=== PATIENT | female | born 1955 | race Caucasian/White ===

== ENCOUNTER 2017-07-20 14:45 | Emergency (ER) | payer OTHER, SELFPAY ==
[2017-07-20 14:46] VITALS: BP 100/67; PULSE 97; RESP 16; TEMP 36.9; O2SAT 98; BMI 39.4
[2017-07-20] MEDS: Ondansetron 4 MG/2 ML Vial IV (15:38)
[2017-07-20 15:42] LABS: Absolute Lymphocyte Count 2.34 X10^3/ul (0.83-4.51); Absolute Neutrophil Count 3.7 X10^3/uL (2.0-7.7); Basophil# 0.02 X10^3/uL; Basophil% 0.3 % (0-1); Eosinophil# 0.13 X10^3/uL; Eosinophils% 1.9 % (0-5); Hematocrit 37.6 % (37-47); Hemoglobin 12.4 g/dl (12.0-15.0); Lymphocyte # 2.34 X10^3/ul (4.0); Lymphocyte % 34.8 % (19-41); Mean Corpuscular Hgb 29.1 pg (27.0-32.0); Mean Corpuscular Volume 88.3 fL (81-99); Mean Platelet Vol. 9.2 fl (6.2-12.0); Monocyte# 0.53 X10^3/uL; Monocyte% 7.9 % (0-10); Neutrophil # 3.68 X10^3/uL (2.7-7.7); Neutrophil % 54.8 % (47-70); Platelet Count 313 K/mm3 (150-450); RBC Distribution Width CV 13.2 % (11.6-14.6); RBC Distribution Width SD 41.6 fl (35.1-43.9); Red Blood Count 4.26 M/mm3 (4.2-5.4); White Blood Count 6.7 K/mm3 (4.4-11.0)
[2017-07-20 15:44] VITALS: BP 116/61; PULSE 91; RESP 22; O2SAT 96
[2017-07-20 15:44] LABS: POSITIVE COUNT NO; POSITIVE DIFFERENTIAL NO; POSITIVE MORPHOLOGY NO
[2017-07-20 15:54] LABS: Anion Gap 9 (5-15); BUN 28 mg/dL (7-18); BUN/Creat Ratio 19.3 RATIO (10-20); Calcium,Total 8.9 mg/dL (8.5-10.1); Chloride 103 mmol/L (98-107); Creatinine, Serum 1.45 mg/dL (0.55-1.02); EST Glomerular Filtration Rate 39 mL/min (>60); Est Glom Filt Rate - Afr Amer 47 mL/min (>60); Estimated Creatinine Clearance 35.27 ml/min; Glucose 144 mg/dL (74-106); Potassium 3.9 mmol/L (3.5-5.1); Sodium Level 140 mmol/L (136-145)
--- NOTE | 2017-07-20 16:01 | ED.DCSUM_ITS ---
- ER Visit Summary Date of Service: 07/20/17 Chief Complaint: Back pain and headache History of Present Illness: The patient is a 62 F who goes the [facility]. She reports that she has back pain that began 2 days ago. States that it is diffuse over her trapezius muscle and radiates down both sides of her back down to her buttocks. This is not in the midline. She denies any trauma. No fall, MVA, or change in activity. She describes it as an aching pain that is 10 out of 10 at worst and 7 out of 10 currently. Is worsened by raising her arms. It is relieved by not moving my arms. She has not taken anything for pain. Patient reports that she has a headache that began today. It is gradually gotten worse. It is a sharp pain that is frontal in location. Is 5 out of 10 severity. She reports that she has had similar headaches previously. States that it is slightly worse with light and decreased by a dark room. Physical Examination: Vitals: Stable. Afebrile. General: Well-nourished and well-developed. Head: Normocephalic atraumatic. Neck: Supple, no lymphadenopathy. No JVD. Nontender. Cardiovascular: Regular rate and rhythm. No murmurs. Respiratory: No respiratory distress. Clear to auscultation bilaterally. Abdominal: Soft, nontender, nondistended, normal bowel sounds. No guarding, rebound, or peritoneal signs. Back: No vertebral tenderness to palpation. Moderate tenderness palpation of the trapezius muscles bilaterally. Mild tenderness to palpation diffusely over the paraspinous musculature as well. No point tenderness. Extremities: Nontender, no edema. Skin: Normal color, no rash. Neurologic: Alert and oriented ?3. Cranial nerves II through XII are intact. Normal strength and sensation. Psych: Normal affect. Test Results: CBC is normal. Chem-7 is marked for glucose 144, BUN of 28, and creatinine 1.45. Her creatinine in 2017 ranged from 1.17-1.25. Urinalysis shows 5-10 white blood cells and no bacteria. Emergency Department Course and Treatment: She was given a dose of morphine and Zofran IV. She was given Tylenol p.o. She feels much improved. Treatment Plan: Clinically I do not think this is from a urinary tract infection. She will be treated as muscular back pain. Instructed to follow-up with her primary care physician in 3-5 days if not improving. Return to the emergency department for any worsening symptoms. Disposition: To home in improved and stable condition. Impression: 1. Muscular back pain. 2. Acute on chronic renal insufficiency. This note was generated with [employer] dictation software. It may contain incorrect words, spelling, and punctuation that were not noted in review of the chart prior to signing ED Disposition - Plan for ED Patient: Disposition: Home or Assisted Living Chief Complaint: Weakness Instructions: ED Spasm Back No Trauma Prescriptions: Hydrocodone Bitart/Apap 5-325 [Comins 5/325] 1 - 2 tablet PO Q4H PRN PRN 3 Days # 12 tablet PRN Reason: Pain Docusate Sodium [Colace] 100 mg PO DAILY #20 capsule Referrals: Renée Parada, USED [facility] RENOVATOR-C [Primary Care Provider] - 3-5 Days if not improving
[2017-07-20] MEDS: Acetaminophen 500 MG Tablet 1000 MG PO (16:11)
[2017-07-20 17:14] VITALS: BP 137/53; PULSE 78; O2SAT 94
[2017-07-20 17:21] LABS: Bacteria 0 SEEN /hpf (None Seen); Red Blood Cells-Urine 0 SEEN /hpf (0-5)
[2017-07-20 17:36] LABS: Color, Urine Yellow (Yellow); Glucose, Dipstick Normal (Normal); Ketone-Dipstick Negative (Negative); Leukocyte Esterase-Dipstick 100 /ul (Negative); Nitrite-Dipstick Negative (Negative); Occult Blood-Urine Negative /ul (Negative); Protein-Dipstick Negative (Negative); Urine Clarity Cloudy (Clear); Urine Urobilinogen Normal (Normal)
[2017-07-20 17:37] LABS: Urine Bilirubin Dipstick 1 mg/dL (Negative)
[2017-07-20 17:46] LABS: Hyaline Cast 10-25 SEEN /lpf (0-5)
[2017-07-20 17:47] LABS: Squamous Epithelial Cells - UA 0-5 SEEN /hpf (5-10); White Blood Cells 5-10 SEEN /hpf (0-5)
[2017-07-20 17:48] LABS: Transitional Epithelial - Ur 0-5 SEEN /hpf (0-5)
[2017-07-20 17:50] LABS: Mucous, Urine RARE /hpf (<or=2+)
== END 2017-07-20 18:52 | disposition home or self-care (01) ==
PROVIDERS: Emergency Provider Emergency Medicine; Family Provider Nurse Practitioner Family; PCP Nurse Practitioner Family
DX: M54.9 Dorsalgia, unspecified (principal); I12.9 Hypertensive chronic kidney disease with stage 1 through stage 4 chronic kidney disease, or unspecified chronic kidney disease; E11.22 Type 2 diabetes mellitus with diabetic chronic kidney disease; N18.9 Chronic kidney disease, unspecified; N17.9 Acute kidney failure, unspecified; E11.618 Type 2 diabetes mellitus with other diabetic arthropathy; I42.9 Cardiomyopathy, unspecified; R51 Headache; K59.00 Constipation, unspecified; G47.33 Obstructive sleep apnea (adult) (pediatric); Z79.82 Long term (current) use of aspirin; Z79.4 Long term (current) use of insulin; Z79.899 Other long term (current) drug therapy; Z95.810 Presence of automatic (implantable) cardiac defibrillator
CPT/HCPCS: 80048; 81001; 85025; 96374; 96375; 99283; A4216; J2405

== ENCOUNTER → 2018-02-18 14:40 | Outpatient (CLI) | payer OTHER, SELFPAY ==
[2018-02-18 16:18] LABS: Absolute Lymphocyte Count 2.31 X10^3/ul (0.83-4.51); Absolute Neutrophil Count 4.9 X10^3/uL (2.0-7.7); Basophil# 0.03 X10^3/uL; Basophil% 0.4 % (0-1); Eosinophils% 2.5 % (0-5); Hematocrit 34.9 % (37-47); Hemoglobin 11.3 g/dl (12.0-15.0); Lymphocyte # 2.31 X10^3/ul (4.0); Mean Corp Hgb Conc 32.4 g/gl (32-36); Mean Corpuscular Volume 89.7 fL (81-99); Mean Platelet Vol. 9.5 fl (6.2-12.0); Monocyte# 0.52 X10^3/uL; Monocyte% 6.5 % (0-10); Neutrophil # 4.89 X10^3/uL (2.7-7.7); Neutrophil % 61.3 % (47-70); POSITIVE COUNT NO; POSITIVE DIFFERENTIAL NO; POSITIVE MORPHOLOGY NO; Platelet Count 333 K/mm3 (150-450); RBC Distribution Width CV 13.2 % (11.6-14.6); RBC Distribution Width SD 42.5 fl (35.1-43.9); Red Blood Count 3.89 M/mm3 (4.2-5.4)
[2018-02-18 17:07] LABS: Anion Gap 9 (5-15); BUN 19 mg/dL (7-18); BUN/Creat Ratio 20.5 RATIO (10-20); Calcium,Total 8.2 mg/dL (8.5-10.1); Chloride 107 mmol/L (98-107); Creatinine, Serum 0.93 mg/dL (0.55-1.02); EST Glomerular Filtration Rate 65 mL/min (>60); Est Glom Filt Rate - Afr Amer 78 mL/min (>60); Glucose 215 mg/dL (74-106); Magnesium 2.3 mg/dL (1.6-2.6); Potassium 4.2 mmol/L (3.5-5.1); Sodium Level 140 mmol/L (136-145); T4 Total, Thyroxin 8.9 ug/dL (4.8-13.9); Thyroid Stim Hormone (TSH) 1.26 uIU/mL (0.358-3.74)
== END ==
PROVIDERS: Family Provider Nurse Practitioner Family; PCP Nurse Practitioner Family; Visit Provider Physician Assistant Medical
DX: I25.10 Atherosclerotic heart disease of native coronary artery without angina pectoris (principal); I42.0 Dilated cardiomyopathy; I50.21 Acute systolic (congestive) heart failure
CPT/HCPCS: 80048; 83735; 83880; 84436; 84443; 85025

== ENCOUNTER → 2018-02-21 06:49 | Outpatient (CLI) | payer OTHER, SELFPAY ==
--- NOTE | 2018-02-21 14:56 | STRESSREP ---
Stress Test Report Pharmacologic myocardial perfusion stress test. 62 year old lady with a history of chest pain. Stress protocol: Resting EKG demonstrates normal sinus rhythm with a rate of 67 bpm and ventricular paced rhythm. Resting blood pressure 730/80 mmHg. 0.4 mg regadenoson was infused per usual protocol followed by Intravenous and flush injection continuous EKG monitoring was performed. Patient maintained sinus rhythm throughout the recording. The maximum heart rate attained was noted to be 96 bpm which was 61% maximum predicted heart rate the maximum workload attained was 1 metabolic equivalent. At rest there were no ST or T-wave changes noted suggest ischemia peak infusion no ST or T-wave changes were noted suggest ischemia. No clinical angina was noted. Blood pressures 130/80 final blood pressures 130/68 mmHg. Myocardial perfusion protocol. 14.3 mCi of technetium 99m sestamibi was injected at rest. 0.4 mg of regadenoson was infused per usual protocol peak infusion 44.6 mCi of technetium 99m sestamibi was injected stress and rest images were reconstructed and compared in the short axis vertical and horizontal long axis. Gated images were also obtained pre- Perfusion SPECT analysis: Review of the stress images demonstrate normal uptake of tracer noted in all areas of the myocardium. The resting images similarly demonstrate normal uptake of tracer noted in all areas of myocardium. No previous infarct is noted. Gated SPECT analysis: The gated ejection fraction is noted to be 57%. Conclusion: Normal pharmacologic myocardial perfusion stress test. Preserved ejection fraction.
== END ==
PROVIDERS: Family Provider Nurse Practitioner Family; PCP Nurse Practitioner Family; Visit Provider Internal Medicine Cardiovascular Disease
DX: I25.10 Atherosclerotic heart disease of native coronary artery without angina pectoris (principal); I34.0 Nonrheumatic mitral (valve) insufficiency; I42.0 Dilated cardiomyopathy; I50.22 Chronic systolic (congestive) heart failure; R07.9 Chest pain, unspecified; Z95.810 Presence of automatic (implantable) cardiac defibrillator
CPT/HCPCS: 78452; 93017; A9500; A4216; J2785

== ENCOUNTER 2018-03-22 08:57 | Day surgery (SDC) | payer OTHER, SELFPAY ==
--- NOTE | 2018-03-22 | COLBX_PTH ---
PATIENT: THIAGO PIERRE LOC: EN U#:[id number] AGE/SX: 62/F ROOM: RE03/22/[address]: Dr. Nathan Bhatti MD : 1955 BED: DIS: 03/22/2018 SPEC #: [id number] RECD: 03/22/18 12:14 STATUS: DOMITILA DIAZ #: [id number] RAMON: 03/22/18 00:[address]: Nathan Bhatti DEPT: SURGICAL PATHOLOGY RECD BY: Daniel Deal ENTERED: 03/22/18 12:14 SP TYPE: COLON BX OTHR DR: Renée Parada, BEHAVIORAL SCIENTIST-C [facility] Tissues: Rectum, NOS Procedures: Surgery Specimen Level IV HEADER OPERATION: Colonoscopy PRE-OP DIAGNOSIS: Constipation TISSUE SUBMITTED: Rectal polyp MICROSCOPIC DIAGNOSIS Rectal polyp, biopsy: Fragments of squamous epithelium with hyperkeratosis. Fragments of fecal material. See comment. SJ:suhas 03/25/18 COMMENT Colonic mucosal tissue is not identified in the submitted specimen. Correlation with clinical, endoscopic findings and appropriate follow up are necessary. MICROSCOPIC DESCRIPTION Slides are reviewed. GROSS DESCRIPTION Received in fixative is one container labeled with the patient's name and designated rectal polyp. The specimen consists of multiple irregular fragments of chappell soft tissue mixed with fecal material that in aggregate measure 1 x 0.5 x 0.2 cm. The specimen is totally submitted in one cassette. / SJ:suhas 03/22/18 TC:5 CPT: 58278
[2018-03-22 09:26] VITALS: BP 132/77; PULSE 73; RESP 14; TEMP 36.9; O2SAT 100; BMI 38.6
[2018-03-22 09:51] LABS: Bedside Glucose 169 mg/dL (70-110)
--- NOTE | 2018-03-22 11:35 | OP.ENDO_ITS ---
Patient Name: Sandra Cruz Procedure Date: 03/22/2018 10:45 AM Date of : 1955 Age: 62 Procedure: Colonoscopy Indications: Screening for colorectal malignant neoplasm Providers: Nathan Bhatti MD Referring MD: Nathan Bhatti MD Medicines: Monitored Anesthesia Care Patient Profile: This is a 62 year old female. Last Colonoscopy: more than 10 years ago. Complications: No immediate complications. Procedure: Pre-Anesthesia Assessment: - Prior to the procedure, a History and Physical was performed, and patient medications and allergies were reviewed. The patient's tolerance of previous anesthesia was also reviewed. The risks and benefits of the procedure and the sedation options and risks were discussed with the patient. All questions were answered, and informed consent was obtained. Prior Anticoagulants: The patient has taken aspirin, last dose was 5 days prior to procedure. After reviewing the risks and benefits, the patient was deemed in satisfactory condition to undergo the procedure. After I obtained informed consent, the scope was passed under direct vision. Throughout the procedure, the patient's blood pressure, pulse, and oxygen saturations were monitored continuously. The colonoscope was introduced through the anus and advanced to the cecum, identified by appendiceal orifice and ileocecal valve. The colonoscopy was performed without difficulty. The patient tolerated the procedure well. The quality of the bowel preparation was adequate. Scope In: 11:08:07 AM Scope Withdrawal Time 0 hours 14 minutes 40 seconds Scope Out: 11:30:18 AM Total Procedure Duration Time 0 hours 22 minutes 11 seconds Findings: A polyp was found in the rectum. The polyp was pedunculated. The polyp was removed with a hot snare. Resection and retrieval were complete. The exam was otherwise without abnormality on direct and retroflexion views. Impression: - One polyp in the rectum, removed with a hot snare. Resected and retrieved. - The examination was otherwise normal on direct and retroflexion views. Recommendation: - Discharge patient to home. - Resume previous diet. - Continue present medications. - Resume aspirin at prior dose tomorrow. - Await pathology results. - Repeat colonoscopy date to be determined after pending pathology results are reviewed for surveillance based on pathology results. Procedure Code(s): --- Professional --- 06290, Colonoscopy, flexible; with removal of tumor(s), polyp(s), or other lesion(s) by snare technique Diagnosis Code(s): --- Professional --- Z12.11, Encounter for screening for malignant neoplasm of colon K62.1, Rectal polyp CPT copyright 2017 [employer]. All rights reserved. The codes documented in this report are preliminary and upon tissue specialist review may be revised to meet current compliance requirements. Nathan Bhatti MD 03/22/2018 11:35:46 AM This report has been signed electronically. Number of Addenda: 0 Note Initiated On: 03/22/2018 10:45 AM
[2018-03-22 11:36] VITALS: BP 132/77; BP 98/85; PULSE 66; RESP 16; TEMP 36.7; O2SAT 99
[2018-03-22 11:41] VITALS: BP 132/77; BP 139/72; PULSE 64; RESP 16; O2SAT 97
[2018-03-22 11:46] VITALS: BP 132/77; BP 151/78; PULSE 66; RESP 16; O2SAT 98
[2018-03-22 11:51] VITALS: BP 132/77; BP 146/81; PULSE 67; RESP 16; TEMP 36.7; O2SAT 97
[2018-03-22 12:00] VITALS: BP 132/77
== END 2018-03-22 12:15 | disposition home or self-care (01) ==
LOC: EN 08:58 → AC 08:59
PROVIDERS: Referring Provider Surgery; Visit Provider Surgery
PROC: 0DJD8ZZ Inspection of Lower Intestinal Tract, Via Natural or Artificial Opening Endoscopic (ICD-10-PCS; CPT 45378; principal; 2018-03-22 09:55)
DX: Z12.11 Encounter for screening for malignant neoplasm of colon (principal); K62.1 Rectal polyp; K21.9 Gastro-esophageal reflux disease without esophagitis; K59.00 Constipation, unspecified; I11.0 Hypertensive heart disease with heart failure; I50.22 Chronic systolic (congestive) heart failure; I25.119 Atherosclerotic heart disease of native coronary artery with unspecified angina pectoris; I42.0 Dilated cardiomyopathy; E11.9 Type 2 diabetes mellitus without complications; E78.5 Hyperlipidemia, unspecified; G47.33 Obstructive sleep apnea (adult) (pediatric); F32.9 Major depressive disorder, single episode, unspecified; F41.9 Anxiety disorder, unspecified; E66.9 Obesity, unspecified; Z68.38 Body mass index [BMI] 38.0-38.9, adult; R94.31 Abnormal electrocardiogram [ECG] [EKG]; Z78.0 Asymptomatic menopausal state; Z79.82 Long term (current) use of aspirin; Z79.4 Long term (current) use of insulin; Z79.899 Other long term (current) drug therapy; I25.2 Old myocardial infarction; Z85.820 Personal history of malignant melanoma of skin; Z92.3 Personal history of irradiation; Z87.891 Personal history of nicotine dependence; Z95.810 Presence of automatic (implantable) cardiac defibrillator
CPT/HCPCS: 45385; 82962; 88305; J7120; J2405

== ENCOUNTER → 2018-07-19 12:20 | Outpatient (CLI) | payer MEDICARE, OTHER, SELFPAY ==
[2018-07-19 12:20] VITALS: BMI 39.4
--- NOTE | 2018-07-19 12:34 | RAD_ITS ---
HISTORY: RIGHT HIP PAIN COMPARISON: None FINDINGS: XR Spine Lumbar 3 views The lumbar vertebra show normal height and alignment. No fracture or suspicious bony lesion. Disc space heights appear preserved. The posterior elements appear intact. No spondylolisthesis. L5-S1 facet joint arthritis on the right. The SI joints are grossly preserved. Atherosclerotic abdominal aorta. RAD/Lumbar Spine 2 or 3 Views IMPRESSION: 1. No fracture or acute disease. 2. L5-S1 facet joint arthritis. 3. Atherosclerotic calcifications. at 0417 Reported and signed by: Shaka Alvarez MD Electronically Signed: Shaka Alvarez, at 4:16 EST Tel , Service support ,
--- NOTE | 2018-07-19 12:50 | RAD_ITS ---
STUDY: X-RAY - RIGHT HIP REASON FOR EXAM: Female, 63 years old. Right hip pain TECHNIQUE: 2 views of the hip. AP pelvis COMPARISON: None. FINDINGS: Normal femoral head, neck, intertrochanteric region and visualized proximal femur. Normal acetabulum. Normal hip joint. Pelvic ring is intact. Sacroiliac joints and pubic symphysis are normal. There are vascular phleboliths of the pelvis. RAD/HIP, UNI W/ Pelvis 2-3 Views IMPRESSION: Normal x-ray examination of the pelvis and right hip hip. Electronically Signed: Dre Rubin MD at 17:27 EST , Service support ,
== END ==
DX: M25.551 Pain in right hip (principal)
CPT/HCPCS: 72100; 73502

== ENCOUNTER → 2018-11-19 12:57 | Outpatient (CLI) | payer MEDICARE, OTHER, SELFPAY ==
[2018-11-01 09:34] VITALS: BMI 40.4
--- NOTE | 2018-11-19 13:00 | CDU_ITS ---
Reason For Study: carotid artery disease Rt. Velocities/BP Lt. Velocities/BP Prox CCA 72.1/12.1 cm/sec. Prox CCA 60.8/14.6 cm/sec. Mid CCA 53.9/14.7 cm/sec. Mid CCA 50.9/12.4 cm/sec. Dist CCA 43.4/12.1 cm/sec. Dist CCA 42.1/11.3 cm/sec. Prox ICA 42.1/12.1 cm/sec. Prox ICA 38.8/14.6 cm/sec. Mid ICA 37.7/10.2 cm/sec. Mid ICA 54.2/17.9 cm/sec. Dist ICA 47.6/19.0 cm/sec. Dist ICA 67.4/27.8 cm/sec. Rt. ICA/CCA = .7. Lt. ICA/CCA = 1.1. Prox ECA 78.6/8.2 cm/sec. Prox ECA 69.5/5.8 cm/sec. Rt. Vert. 41.0/11.3 cm/sec. Lt. Vert. 54.2/17.9 cm/sec. Right Extracranial There is heterogeneous, irregular atherosclerotic plaque noted in the right common carotid artery. There is intimal thickening but no significant atherosclerotic plaque noted in the right internal carotid artery. There is heterogeneous, irregular atherosclerotic plaque noted in the right external carotid artery. Antegrade flow is noted in the right vertebral artery. There is heterogeneous, irregular atherosclerotic plaque noted in the right bulb. Left Extracranial There is heterogeneous, smooth atherosclerotic plaque noted in the left common carotid artery. There is heterogeneous, irregular atherosclerotic plaque noted in the left internal carotid artery. There is heterogeneous, irregular atherosclerotic plaque noted in the left external carotid artery. Antegrade flow is noted in the left vertebral artery. Procedure Carotid Duplex 45043. The exam was diagnostic. Exam performed in department. Interpretation Summary No significant atherosclerotic plaque or stenosis noted in the right internal carotid artery. Mild (<50%) stenosis left extracranial internal carotid. Flow within the vertebral arteries is antegrade bilaterally. Heterogeneous, irregular atherosclerotic plaque is noted in the right carotid bulb, which does not appear to be hemodynamically significant. Ordering Physician: Stewart Boggs Performed By: Mateo Young RVT
--- NOTE | 2018-11-19 13:00 | ECHOD_ITS ---
Version 2 Left Ventricle Normal LV size. Mild segmental systolic dysfunction (see wall motion). The estimated ejection fraction is 45 %. There is evidence of diastolic dysfunction. Infero-Basal: Hypokinetic. Basal inferoseptal: Hypokinetic. Mid-Lateral : Hypokinetic. Mid-Posterior: Hypokinetic. Mid-Inferior: Akinetic. Mid-inferoseptal : Hypokinetic. Mid-anteroseptal : Hypokinetic. Anterior Ferguson : Hypokinetic. Inferior Ferguson : Akinetic. Lateral Ferguson : Hypokinetic. Septal Ferguson : Hypokinetic. Right Ventricle Normal RV size. ICD or pacer leads identified within the right ventricle. Normal systolic function. Atria The left atrium is mildly enlarged. Normal right atrium. ICD or pacer leads identified within the right atrium. No doppler evidence for ASD. Mitral Valve There is mild mitral annular calcification. Mild diffuse mitral valve thickening. Mild (1+) eccentric mitral valve insufficiency. Tricuspid Valve Normal tricuspid valve. Trivial tricuspid valve insufficiency. Right ventricular systolic pressure estimated to be 25 mmHg. Aortic Valve Trisinus/trileaflet aortic valve. Normal aortic valve. Pulmonic Valve The pulmonic valve is not well visualized. Trivial pulmonic valve insufficiency. Great Vessels Normal sized aortic root. Pericardium/Pleural No pericardial effusion. MMode/2D Measurements & Calculations LVIDd: 5.3 cm IVSd: 1.0 cm Ao root diam: 3.5 cm LVIDs: 3.8 cm LVPWd: 1.0 cm RVDd: 2.9 cm FS: 28.7 % LAV(MOD-bp): 56.2 ml LA A4 area: 17.6 cm2 LA dimension(2D): 4.1 cm LAV(MOD-bp) Indexed: 26.3 ml/m2 LAV(MOD-sp2): 59.6 ml LAV(MOD-sp4): 51.3 ml RA A4 area: 11.8 cm2 Time Measurements MV dec time: 0.37 sec Doppler Measurements & Calculations MV E max omega: 65.7 cm/sec Lat Peak E' Omega: 3.9 cm/sec Med Peak E' Omega: 3.7 cm/sec MV A max omega: 114.4 cm/sec E/E' lat: 16.7 E/E' med: 17.6 MV E/A: 0.57 Ao V2 max: 156.0 cm/sec LV V1 max: 82.9 cm/sec TR max omega: 234.9 cm/sec Ao max P.7 mmHg LV V1 max P.8 mmHg TR max P.1 mmHg Interpretation Summary Mild segmental systolic dysfunction (see wall motion). The estimated ejection fraction is 45 %. The left atrium is mildly enlarged. There is mild mitral annular calcification. Mild diffuse mitral valve thickening. Mild (1+) eccentric mitral valve insufficiency. Trivial tricuspid valve insufficiency. Trivial pulmonic valve insufficiency. Right ventricular systolic pressure estimated to be 25 mmHg. There is evidence of diastolic dysfunction. ICD or pacer leads identified within the right atrium ICD or pacer leads identified within the right ventricle. Ordering Physician: Ambrose^Stewart^^^ Referring Physician: Stewart Boggs Performed By: ADM
== END ==
PROVIDERS: Referring Provider Internal Medicine Cardiovascular Disease; Visit Provider Internal Medicine Cardiovascular Disease
DX: R42 Dizziness and giddiness (principal); I77.9 Disorder of arteries and arterioles, unspecified; I25.10 Atherosclerotic heart disease of native coronary artery without angina pectoris
CPT/HCPCS: 93306; 93880

== ENCOUNTER → 2019-01-20 | Outpatient (CLI) | payer MEDICARE, OTHER, SELFPAY ==
[2018-11-01 09:34] VITALS: BMI 40.4
[2019-01-22 09:15] LABS: M R Staph aureus DNA By PCR Negative (Negative); Probe Check PASS; Specimen Processing Control PASS; Staph aureus DNA By PCR NEGATIVE (Negative)
== END | disposition home or self-care (01) ==
LOC: LABSPEC 01-21 15:24
PROVIDERS: Referring Provider Podiatrist; Visit Provider Podiatrist
DX: L60.0 Ingrowing nail (principal)
CPT/HCPCS: 87070; 87075; 87077; 87186; 87205; 87640

== ENCOUNTER → 2019-02-18 08:53 | Outpatient (CLI) | payer MEDICARE, OTHER, SELFPAY ==
[2018-11-01 09:34] VITALS: BMI 40.4
--- NOTE | 2019-02-18 09:20 | RAD_ITS ---
STUDY: X-RAY - ESOPHAGUS (BARIUM SWALLOW) WITH FLUOROSCOPY REASON FOR EXAM: Female, 63 years old. Dysphagia for solids and liquids. TECHNIQUE: 20 view(s) of the esophagus were obtained following swallowing of barium. FLUOROSCOPY TIME (if supplied): (0:36) minutes/seconds COMPARISON: None. FINDINGS: There is no demonstrated esophageal foreign body. There is no demonstrated stricture or mucosal abnormality. Normal gastroesophageal junction, without a demonstrated hiatal hernia. Tertiary contractions of the mid and distal esophagus. The patient ingested a 12 mm tablet of barium without any difficulty. There is atherosclerotic calcification of the aortic arch with tortuosity of the descending aorta. Normal visualized pulmonary parenchyma. There are diffuse degenerative changes of the visualized thoracic spine. RAD/Esophagus Only IMPRESSION: Tertiary contractions of the mid and distal esophagus. Electronically Signed: Macho Majano, at 13:02 EDT , Service support ,
== END ==
PROVIDERS: Referring Provider Nurse Practitioner Family; Visit Provider Nurse Practitioner Family
DX: R13.10 Dysphagia, unspecified (principal)
CPT/HCPCS: 74220

== ENCOUNTER → 2019-03-25 11:56 | Outpatient (CLI) | payer MEDICARE, OTHER, SELFPAY ==
[2018-11-01 09:34] VITALS: BMI 40.4
--- NOTE | 2019-03-25 12:00 | BI_ITS ---
MAMMOGRAPHY - BILATERAL SCREENING REASON FOR EXAM: Female, 63 years old. Routine annual screening examination. PERTINENT HISTORY: Mother with breast cancer. Prior bilateral breast reduction surgery. TECHNIQUE: Digital bilateral breast vic (3D mammographic acquisition) in the CC and MLO projections. 2-D mediolateral oblique (MLO) and craniocaudad (CC) views of both breasts were obtained. CAD: Full Field Digital Mammography with Computer Added Detection was performed. COMPARISON: Comparison is made with prior study dated February 20, 2013. FINDINGS: Breast Composition: The breasts are almost entirely fatty. There are no dominant masses or suspicious calcifications. A pacemaker battery pack is seen in the left axillary region. No other significant abnormalities are identified. There has been no significant change since the prior study. BI/SCREEN MAMM (CAD) W/VIC BILAT IMPRESSION: Stable bilateral screening mammogram. Yearly follow-up mammogram recommended. (A) ASSESSMENT CATEGORY: BIRADS Category 1: Negative. A letter regarding these results will be sent to the patient by the facility within 30 days. Approximately 10% of breast cancers are not detected by mammography. A normal mammogram should not delay biopsy of a clinically suspicious abnormality. [id number] Electronically Signed: Macho Majano, at 14:12 EDT , Service support ,
== END ==
DX: Z12.31 Encounter for screening mammogram for malignant neoplasm of breast (principal)
CPT/HCPCS: 77063; 77067

== ENCOUNTER → 2019-05-06 08:55 | Outpatient (CLI) | payer MEDICARE, OTHER, SELFPAY ==
[2018-11-01 09:34] VITALS: BMI 40.4
--- NOTE | 2019-05-06 09:18 | BD_ITS ---
STUDY: DUAL ENERGY X-RAY ABSORPTIOMETRY / DXA REASON FOR EXAM: Female, 63 years old. Early menopause. No loss of height. TECHNIQUE: Bone Mineral Density (BMD) measurements of lumbar spine and bilateral hips were obtained. COMPARISON: None. FINDINGS: Lumbar Spine (L1-L4): g/cm2 (1.069) / T-score (-0.9) / Z-score (0.7) Findings are suggestive of normal bone density with a low fracture risk. Left Femur Total: g/cm2 (1.257) / T-score (2.0) / Z-score (3.2) Left Femoral Neck: g/cm2 (1.110) / T-score (0.4) / Z-score (2.0) Right Femur Total: g/cm2 (1.237) / T-score (1.8) / Z-score (3.1) Right Femoral Neck: g/cm2 (1.088) / T-score (0.4) / Z-score (1.9) BD/Dexa Bone Density Study IMPRESSION: The patient is considered normal as outlined below according to World Ford Organization (WHO) criteria with a low fracture risk. Reference Information: The T-score is the number of standard deviations above or below the standard which is normal for young adults at their peak bone mineral density. The World Health Organization (WHO) interprets the T-scores as follows: Above -1 Normal bone density Between -1 and -2.5 Osteopenia Equal to / or below -2.5 Osteoporosis As a practical clinical guideline, osteopenia may be graded as follows: Mild -1 through -1.5 Moderate -1.6 through -2.0 Severe -2.1 through -2.4 The Z-score is the number of standard deviations above or below age-matched controls. A Z-score of less than -1.5 would be considered abnormal. References: 1. NIH Osteoporosis and Related Bone Diseases http://www.osteo.org 2. International Society for Clinical Densitometry http://www.iscd.org 3. National Osteoporosis Foundation http://www.nof.org Electronically Signed: Macho Majano, at 8:49 EST , Service support ,
== END ==
DX: Z13.820 Encounter for screening for osteoporosis (principal); Z78.0 Asymptomatic menopausal state
CPT/HCPCS: 77080

== ENCOUNTER → 2019-05-12 20:11 | Outpatient (CLI) | payer MEDICARE, OTHER, SELFPAY ==
[2018-11-01 09:34] VITALS: BMI 40.4
== END ==
DX: G47.33 Obstructive sleep apnea (adult) (pediatric) (principal)
CPT/HCPCS: 95811

== ENCOUNTER 2019-06-05 06:47 | Day surgery (SDC) | payer MEDICARE, OTHER, SELFPAY ==
[2019-05-16 13:23] VITALS: BMI 40.4
[2019-05-30 14:35] VITALS: BMI 40.1
[2019-06-05 07:16] VITALS: BP 187/80; PULSE 60; RESP 16; TEMP 36.4; O2SAT 97
== END 2019-06-05 07:55 | disposition home or self-care (01) ==
LOC: EN 06:47
PROVIDERS: Visit Provider Surgery
PROC: F00ZJWZ Instrumental Swallowing and Oral Function Assessment using Swallowing Equipment (ICD-10-PCS; CPT 43235; principal; 2019-06-05 06:55)
DX: R13.10 Dysphagia, unspecified (principal)
CPT/HCPCS: 91010; 91013

== ENCOUNTER → 2019-06-13 10:34 | Outpatient (CLI) | payer MEDICARE, OTHER, SELFPAY ==
[2019-05-30 14:35] VITALS: BMI 40.1
== END ==
DX: R69 Illness, unspecified (principal)

== ENCOUNTER 2019-06-20 10:39 | Emergency (ER) | payer MEDICARE, OTHER, SELFPAY ==
[2019-06-12 09:21] VITALS: BMI 40.4
[2019-06-20 10:40] VITALS: BP 139/95; PULSE 74; RESP 17; TEMP 36.2; O2SAT 99; BMI 38.4
[2019-06-20 10:51] LABS: Bedside Glucose 209 mg/dL (70-110)
--- NOTE | 2019-06-20 11:07 | CT_ITS ---
STUDY: CT ABDOMEN AND PELVIS WITH CONTRAST REASON FOR EXAM: Female, 63 years old. Mid-abdominal pain since yesterday, nausea. Prior KT/BSO, diabetes, melanoma (eye). RADIATION DOSAGE (If Supplied By Facility): CTDIvol = ( 0 ) mGy, DLP = ( 0 ) mGycm TECHNIQUE: Transaxial images were obtained from the dome of the diaphragm to the symphysis pubis without oral contrast. IV 100mL Isovue-300 was administered. Sagittal and coronal images were reconstructed. Individualized dose optimization techniques were used for this CT. COMPARISON: Comparison is made with prior study dated February 20, 2013. FINDINGS: The visualized lung bases are unremarkable. Coronary artery calcification. Dual-chamber pacemaker is in situ. There is decreased attenuation of the liver consistent with steatosis. Normal gallbladder and extrahepatic biliary system. Normal spleen. Normal pancreas. There is a small, circumscribed, smooth, low attenuation left adrenal mass, consistent with an adrenal adenoma. This measures 1.4 cm. Normal right adrenal gland. Stable 5 mm fatty density in the peripheral lateral aspect of the right kidney suggestive of a tiny angiomyolipoma. Normal left kidney. Normal visualized stomach. Normal small intestine. Normal colon. There is non-visualization of the appendix. There is diffuse atherosclerotic calcification of the abdominal aorta, without a demonstrated aneurysm. Normal inferior vena cava. Normal retroperitoneum. Normal urinary bladder. There is absence of the uterus consistent with a prior hysterectomy. Normal abdominal wall. Normal osseous structures. CT/Abdomen/Pelvis W IV Cont ONLY IMPRESSION: Diffuse fatty infiltration of the liver. Stable examination. Electronically Signed: Macho Majano, at 12:32 EST , Service support ,
--- NOTE | 2019-06-20 11:08 | ED.DCSUM_ITS ---
- ER Visit Summary Date of Service: 06/20/19 Chief Complaint: Mid abdominal pain History of Present Illness: The patient is a 63 F history of prior total hysterectomy. Pacemaker defibrillator. Prior MD, insulin-dependent diabetes and hypertension. Patient states since last night she has had mid abdominal pain. With associated nausea vomiting. No diarrhea. No rectal bleeding but dark stools. No fever. No dysuria. He is on no blood thinners. States she is still having bowel movements. Physical Examination: Older female no acute distress vital signs are stable afebrile. H EENT exam unremarkable. Neck nontender no lymphadenopathy. Lungs clear to auscultation bilaterally. Heart regular rhythm no murmur. Abdomen is soft. Nondistended. Normal bowel sounds. Mild periumbilical tenderness. No obvious hernia or mass. No signs of obstruction. She is obese. Positive bowel sounds. No peritoneal signs. Patient moving all 4 extremities. Calves nontender no edema. Neurologically she is awake and alert with no focal motor deficits. Test Results: BC normal white count of 6. Hemoglobin 12. Chemistries normal gap of 8 BUN 70 creatinine 1.2. Liver enzymes normal. Lipase normal. CT abdomen pelvis shows a fatty liver but no acute abnormality. Read by the radiologist and reviewed by me. Emergency Department Course and Treatment: Older female with abdominal pain. Labs to be obtained along with a CAT scan of her abdomen and pelvis with IV contrast. States that she also has a headache and will be given Tylenol p.o. She did not waiting for the abdominal pain or nausea. Treatment Plan: Repeat exam at 1335 patient is doing well. Abdomen is benign. She and I went over all of her test results. She again assures me she is having no urinary symptoms. She will be discharged. Follow-up with her primary care physician. Disposition: Discharge Impression: Acute abdominal pain of uncertain etiology This note was generated with [employer] dictation software. It may contain incorrect words, spelling, and punctuation that were not noted in review of the chart prior to signing ED Disposition - Plan for ED Patient: Referrals: Yary Conn [Primary Care Provider] -
[2019-06-20 11:39] LABS: Absolute Lymphocyte Count 2.22 X10^3/uL (0.83-4.51); Absolute Neutrophil Count 3.2 X10^3/uL (2.0-7.7); Basophil# 0.03 X10^3/uL; Basophil% 0.5 % (0-1); Eosinophil# 0.35 X10^3/uL; Eosinophils% 5.7 % (0-5); Hematocrit 40.5 % (37-47); Hemoglobin 12.7 g/dL (12.0-15.0); Lymphocyte # 2.22 X10^3/ul (4.0); Lymphocyte % 35.9 % (19-41); Mean Corp Hgb Conc 31.4 g/dL (32-36); Mean Corpuscular Hgb 27.8 pg (27.0-32.0); Mean Corpuscular Volume 88.6 fL (81-99); Mean Platelet Vol. 9.2 fl (6.2-12.0); Monocyte# 0.34 X10^3/uL; Monocyte% 5.5 % (0-10); NRBC Flagged by Analyzer 0 % (0-5); Neutrophil # 3.24 X10^3/uL (2.7-7.7); Neutrophil % 52.2 % (47-70); Platelet Count 302 K/mm3 (150-450); RBC Distribution Width CV 13.1 % (11.6-14.6); RBC Distribution Width SD 42.1 fl (35.1-43.9); Red Blood Count 4.57 M/mm3 (4.2-5.4); White Blood Count 6.2 K/mm3 (4.4-11.0)
[2019-06-20] MEDS: Acetaminophen 500 MG Tablet 1000 MG PO (11:44)
[2019-06-20] MEDS: 0.9% Normal Saline 1,000 ML 250 ML IV (11:44)
[2019-06-20 11:48] LABS: AST(SGOT) 11 U/L (15-37); Alanine Aminotransfer ALT/SGPT 18 U/L (13-56); Albumin, Serum 3.6 g/dL (3.2-5.0); Alkaline Phosphatase 86 U/L (45-117); Anion Gap 8 (5-15); BUN 17 mg/dL (7-18); BUN/Creat Ratio 13.7 RATIO (10-20); Bilirubin, Direct 0.16 mg/dL (0.00-0.30); Calcium,Total 10.3 mg/dL (8.5-10.1); Chloride 101 mmol/L (98-107); Creatinine, Serum 1.24 mg/dL (0.55-1.02); EST Glomerular Filtration Rate 46 mL/min (>60); Est Glom Filt Rate - Afr Amer 56 mL/min (>60); Estimated Creatinine Clearance 42.34 ml/min; Globulin 3.7 g/dL (2.2-4.2); Glucose 203 mg/dL (74-106); Lipase 172 U/L (73-393); Potassium 4.2 mmol/L (3.5-5.1); Protein, Total 7.3 g/dL (6.4-8.2); Sodium Level 136 mmol/L (136-145)
--- NOTE | 2019-06-20 13:41 | DCINST.ED_ITS ---
ED Disposition - Plan for ED Patient: Disposition: Home or Assisted Living Instructions: ABDOMINAL PAIN, Unknown Cause, (Female) Referrals: Janna Talavera,Yary Chambers [Primary Care Provider] - 3-5 Days Additional Instructions: Tylenol for pain. Follow-up with your doctor's office next week to ensure you are improving. Return to ER if you are feeling worse. Your labs and CAT scan today were basically unremarkable we did not have a speci fic cause for your abdominal pain.
[2019-06-20 13:59] VITALS: BP 144/72; PULSE 69; RESP 16; O2SAT 99
== END 2019-06-20 14:01 | disposition home or self-care (01) ==
PROVIDERS: Emergency Provider Emergency Medicine
DX: R10.33 Periumbilical pain (principal); I25.10 Atherosclerotic heart disease of native coronary artery without angina pectoris; I25.2 Old myocardial infarction; I10 Essential (primary) hypertension; E11.9 Type 2 diabetes mellitus without complications; Z79.4 Long term (current) use of insulin; Z79.84 Long term (current) use of oral hypoglycemic drugs; Z79.82 Long term (current) use of aspirin
CPT/HCPCS: 74177; 80048; 80076; 82962; 83690; 85025; 96360; 96361; 99283; J7030; Q9967; A4216

== ENCOUNTER 2019-10-26 18:25 | Inpatient (IN) | payer MEDICARE, OTHER, SELFPAY ==
[2019-10-26 18:26] VITALS: BP 119/72; PULSE 90; RESP 16; TEMP 36.8; O2SAT 96; BMI 39.2
--- NOTE | 2019-10-26 18:51 | CT_ITS ---
STUDY: CT ABDOMEN AND PELVIS WITHOUT CONTRAST REASON FOR EXAM: Female, 64 years old. DIFFUSE abdominal PAIN/DARK STOOL/DIARRHEA X one week. RADIATION DOSAGE (If Supplied By Facility): CTDIvol = ( 22.81 ) mGy, DLP = ( 1324.73 ) mGycm TECHNIQUE: Transaxial images were obtained from the dome of the diaphragm to the symphysis pubis without oral contrast, and without intravenous contrast. Sagittal and coronal images were reconstructed. Individualized dose optimization techniques were used for this CT. COMPARISON: 06/20/2019. FINDINGS: Suboptimal positioning. The dome of the liver is not entirely included on the [id number]. Grossly normal visualized liver. Normal gallbladder and extrahepatic biliary system. Normal spleen. Normal pancreas. Normal bilateral adrenal glands. Normal right kidney. Normal left kidney. Evaluation of the GI tract is limited by absence of oral contrast. Cannot exclude stomach wall thickening. No dilated loops of bowel or evidence for obstruction. Cannot exclude segmental thickening of the loz[place] of the small or large bowel. Cannot exclude enteritis or colitis. Diffuse fluid density is seen throughout GI tract as far as the sigmoid, a finding which suggests nonspecific colitis/diarrheal disorders. Appendix within normal limits. There is diffuse atherosclerotic calcification of the abdominal aorta, without a demonstrated aneurysm. Normal inferior vena cava. Normal retroperitoneum. Normal urinary bladder. There is absence of the uterus consistent with a prior hysterectomy. Normal abdominal wall. Normal osseous structures. CT/Abdomen/Pelvis without Cont IMPRESSION: Diffuse fluid density is seen throughout GI tract as far as the sigmoid, a finding which suggests nonspecific colitis/diarrheal disorders. Otherwise no definite acute or significant abnormality seen. Electronically Signed: Ross Martinez MD at 19:55 EDT , Service support ,
--- NOTE | 2019-10-26 18:53 | ED.DCSUM_ITS ---
History of Present Illness Chief Complaint: Diarrhea Informant: Patient - Abdominal Pain/Flank Pain Onset: Days - 1-2 Timing: Intermittent Quality: Aching Location: Diffuse Current Severity: Moderate Maximum Severity: Moderate Worsened by: Food Relieved by: Nothing - Nausea/Vomiting/Emesis GI Symptom: Nausea, Vomiting Onset: Weeks - 1 Quality: Nonbilious. Negative for: Blood streaks, Coffee ground, Hematemesis - Diarrhea/Melena/Hematochezia GI Symptom: Melena. Negative for: Hematochezia Onset: Yesterday Severity: Moderate Associated Symptoms: Negative for: Dysuria, Frequency, Hematuria, Urgency Narrative: Patient has been having diffuse abdominal pain and nausea/vomiting for the past week, much worse after eating, and very soon afterwards. She has had lightheadedness, weakness/malaise, as well as several near syncope episodes. She has recently developed melena. She denies a history of an ulcer, but she takes aspirin, no anticoagulants. She has a history of heart disease. She denies any chest pain or shortness of breath. - Past Medical History (1) Atherosclerotic heart disease of [place] coronary artery without angina pectoris Status: Chronic Comment: 05/26/2015 @ [facility] per Dr. Boggs: mild nonobstructive CAD (2) Cardiac defibrillator in situ Status: Chronic Comment: Dr. Garcia's office interrogates @ [facility]: Implanted 03/16/2016 mala Garcia, [facility] (3) Chronic systolic (congestive) heart failure Status: Chronic (4) Diabetes mellitus, type II Status: Chronic (5) Dilated cardiomyopathy Status: Chronic Comment: Ejection fraction 20% per echo 01/13/2016 @ [facility] (6) Essential hypertension Status: Chronic (7) Nonrheumatic mitral (valve) insufficiency Status: Chronic Comment: moderate (2+) per echo 01/13/2016 (8) NICOLLE (obstructive sleep apnea) Status: Chronic (9) Pure hypercholesterolemia Status: Chronic Past Medical History - Allergies and Home Meds Allergies/Adverse Reactions: Allergies red dye Allergy (Verified 10/26/19 18:26) Hives Lzusrng-Fkn-Fuh Reductase Inhibitor Adverse Reaction (Severe, Verified 10/26/19 18:26) Myalgias Primary Care Physician: Yary Conn [NON-STAFF] - Surgical History: - - Hysterectomy, breast reduction. Lives: Spouse/ Significant Other Smoking Status: Former smoker Alcohol: None - Family History Maternal Family History: Family History (Last Reviewed 05/30/19 @ 14:38 by Kaye Pierson) Father Lung cancer Mother Breast cancer Brother Cancer Family History: Reports: Diabetes, Heart Disease, Hypertension Paternal Family History: Family History (Last Reviewed 05/30/19 @ 14:38 by Kaye Pierson) Father Lung cancer Mother Breast cancer Brother Cancer Family History: Reports: Diabetes, Heart Disease, Hypertension Review of Systems General: Reports: Malaise. Denies: Chills, Fever, Sweats Eyes: Denies: Visual changes - bilaterally, Diplopia ENT: Denies: Rhinorrhea, Sore throat Cardiovascular: Denies: Chest pain, Palpitations Respiratory: Denies: Dyspnea, Cough, Dyspnea on exertion Gastrointestinal: Reports: Abdominal pain, Nausea, Vomiting, Diarrhea, Melena. Denies: Hematochezia Genitourinary: Denies: Dysuria, Hematuria, Frequency Musculoskeletal: Denies: Neck pain, Back pain, Swelling, Extremity Pain Skin: Denies: Rash, Wounds Neurological: Denies: Headache, Weakness, Numbness Physical Exam Vital Signs/Narrative: Vital Signs Temp Pulse Resp BP Pulse Ox 10/26/19 18:26 98.3 F 90 16 119/72 96 Inital Vital Signs reviewed: Yes General: Well nourished, Well developed, Obese, No Acute Distress Head: Normocephalic, Atraumatic Eyes: Perrl, EOMI ENT: Moist mucous membranes, No rhinorrhea Neck: Supple, Nontender Cardiovascular: Regular rate, Regular rhythm, No murmurs Respiratory: No distress, CTA bilaterally, Chest nontender Abdomen: Soft, Nondistended, Normal bowel sounds, Tender - Diffuse, worse in epigastrium/left upper quadrant. Negative for: Guarding, Rebound tenderness, Pulsatile mass Rectal: Deferred - Small amount of melanotic nonbloody stool was collected prior to my evaluation, and patient has no anal/rectal pain, Guaiac positive Back: Nontender, Normal Inspection. Negative for: CVA tenderness Extremities: Nontender, No edema. Negative for: Calf Tenderness Skin: Normal color, No rash, No Trauma Neurological: Alert, Oriented x3, Cranial nerves II-XII grossly intact, Normal Strength, Normal Sensation Psychological: Normal affect, Normal Mood Diagnostic/Tx/Re-eval Impressions Abdomen/Pelvis CT 10/26/19 18:51 IMPRESSION: Diffuse fluid density is seen throughout GI tract as far as the sigmoid, a finding which suggests nonspecific colitis/diarrheal disorders. Otherwise no definite acute or significant abnormality seen. Electronically Signed: Ross Martinez MD at 19:55 EDT , Service support , 10/26/19 18:51 Abdomen/Pelvis without Cont [CT] Stat 10/26/19 19:00 Stool Stool Occult Blood (ISAI) - Final Occult Blood Positive Laboratory Results 10/26/19 10/26/19 10/26/19 19:00 19:00 19:00 WBC 10.8 RBC 4.20 Hgb 12.4 Hct 37.3 MCV 88.8 MCH 29.5 MCHC 33.2 RDW Std Deviation 43.0 RDW Coeff of Ivet 13.4 Plt Count 269 MPV 9.2 Neut % (Auto) Not Reportable Absolute Neuts (auto) 6.4 Absolute Lymphs (auto) 2.80 Total Counted 100 Neutrophils % (Manual) 52 Band Neutrophils % 7 H Lymphocytes % (Manual) 26 Monocytes % (Manual) 5 Eosinophils % (Manual) 10 H Diff Path Review May foll Platelet Estimate ADEQUATE RBC Morphology NORM C+C Sodium 139 Potassium 3.7 Chloride 108 H Carbon Dioxide 20.0 L Anion Gap 11 BUN 29 H Creatinine 1.54 H Estim Creat Clear Calc 32.33 Est GFR (MDRD) Af Amer 43 L Est GFR (MDRD) Non-Af 36 L BUN/Creatinine Ratio 18.8 Glucose 223 H Calcium 8.2 L Total Bilirubin 0.70 AST 8 L ALT 13 Alkaline Phosphatase 100 Troponin I < 0.015 Total Protein 6.6 Albumin 3.1 L Globulin 3.5 Albumin/Globulin Ratio 0.9 Blood Type A POSITIVE Antibody Screen NEGATIVE - Rhythm Strip Rhythm Strip: paced Rate: 87 Ectopy: None - EKG Initial EKG Interpretation: No Acute Injury Pattern, Paced - Medical Decision Making As above, labs show there is an elevated BUN, she is not anemic and not in need of a transfusion at this time. She remained hemodynamically stable in the emergency department. She did have quite a bit more melanotic diarrhea, no gross blood. She was given Protonix 80 mg IV. I discussed with Dr. garland, I am concerned about an upper GI bleed. Given the particulars on this patient, she is willing to consult and see the patient and scope if needed. CT showed nothing acute. I will give her some pain medication, she was already given antiemetic, and the plan is to admit. COVID test is ordered at physician request. Patient has had no known exposures to coronavirus infected persons that she knows of. ED Disposition - Plan for ED Patient: Disposition: Acute Care Hospital [facility] Diagnosis: Acute upper GI bleeding
--- NOTE | 2019-10-26 18:58 | EKG12_ITS ---
Test Reason : DIARREHA Blood Pressure : / mmHG Vent. Rate : 087 BPM Atrial Rate : 087 BPM P-R Int : 104 ms QRS Dur : 152 ms QT Int : 454 ms P-R-T Axes : 032 140 089 degrees QTc Int : 546 ms Poor data quality, interpretation may be adversely affected Atrial-sensed ventricular-paced rhythm Biventricular pacemaker detected Abnormal ECG Confirmed by BRYCE HASSAN, MARCELINA ([id number]), commissioning editor JUHI CONNOR ([id number]) on 10/28/2019 3:29:42 PM Referred By: Taty Velasquez Confirmed By:MARCELINA WU MD
[2019-10-26] MEDS: Morphine 2 MG/ML Syringe IV (19:14)
[2019-10-26] MEDS: Ondansetron 4 MG/2 ML Vial IV (19:14)
[2019-10-26 19:19] LABS: Hematocrit 37.3 % (37-47); Hemoglobin 12.4 g/dL (12.0-15.0); Mean Corp Hgb Conc 33.2 g/dL (32-36); Mean Corpuscular Hgb 29.5 pg (27.0-32.0); Mean Corpuscular Volume 88.8 fL (81-99); Mean Platelet Vol. 9.2 fl (6.2-12.0); POSITIVE COUNT YES; POSITIVE MORPHOLOGY YES; Platelet Count 269 K/mm3 (150-450); RBC Distribution Width CV 13.4 % (11.6-14.6); White Blood Count 10.8 K/mm3 (4.4-11.0)
[2019-10-26] MEDS: 0.9% Normal Saline 1,000 ML 125 ML IV (19:19)
[2019-10-26 19:21] LABS: Differential Indicated MANUAL DIFF
[2019-10-26 19:38] LABS: ALB/GLOB Ratio 0.9 RATIO (0.9-2.4); AST(SGOT) 8 U/L (15-37); Alanine Aminotransfer ALT/SGPT 13 U/L (13-56); Albumin, Serum 3.1 g/dL (3.2-5.0); Alkaline Phosphatase 100 U/L (45-117); Anion Gap 11 (5-15); BUN 29 mg/dL (7-18); BUN/Creat Ratio 18.8 RATIO (10-20); Calcium,Total 8.2 mg/dL (8.5-10.1); Chloride 108 mmol/L (98-107); Creatinine, Serum 1.54 mg/dL (0.55-1.02); EST Glomerular Filtration Rate 36 mL/min (>60); Est Glom Filt Rate - Afr Amer 43 mL/min (>60); Estimated Creatinine Clearance 32.33 ml/min; Globulin 3.5 g/dL (2.2-4.2); Glucose 223 mg/dL (74-106); Potassium 3.7 mmol/L (3.5-5.1); Protein, Total 6.6 g/dL (6.4-8.2); Sodium Level 139 mmol/L (136-145)
[2019-10-26 19:49] LABS: Eosinophil 10 % (0-5); Lymphocyte 26 % (19-41); Monocyte 5 % (0-10); Neutrophil-Band 7 % (0-5); Neutrophil-Segmented 52 % (47-70); Platelet Estimate ADEQUATE (ADEQ); Red Cell Morphology NORM C+C NORMAL (NORM C&C); Total Cells Counted 100 (MANUAL DIFF)
[2019-10-26 19:50] LABS: Absolute Neutrophil Count 6.4 X10^3/uL (2.0-7.7)
--- NOTE | 2019-10-26 21:30 | PCM.HP.STD ---
Problem List (1) Acute upper GI bleeding Status: Acute (2) Anxiety and depression Status: Chronic (3) Former tobacco use Status: Chronic (4) Carotid artery disease Status: Chronic Qualifiers: Carotid artery disease type: unspecified Laterality: unspecified laterality Qualified Code(s): I77.9 - Disorder of arteries and arterioles, unspecified (5) Pure hypercholesterolemia Status: Chronic (6) Essential hypertension Status: Chronic (7) Atherosclerotic heart disease of [place] coronary artery without angina pectoris Status: Chronic Qualifiers: [place] vs. transplanted heart: [place] heart Qualified Code(s): I25.10 - Atherosclerotic heart disease of [place] coronary artery without angina pectoris Comment: 05/26/2015 @ [facility] per Dr. Boggs: mild nonobstructive CAD (8) Cardiac defibrillator in situ Status: Chronic Comment: Dr. 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 Diabetes mellitus complication status: with kidney complications Diabetes mellitus complication detail: with chronic kidney disease Chronic kidney disease stage: stage 3 (moderate) Qualified Code(s): E11.22 - Type 2 diabetes mellitus with diabetic chronic kidney disease (13) Obesity (BMI 30-39.9) Status: Chronic History of Present Illness Date of Admission: 10/26/19 Chief Complaint: Diarrhea, dark stools The patient is a 64 y/o F w/ PMHx: Anxiety and Depression, CKD stage III, NICOLLE on BIPAP q HS, Systolic CHF, Dilated Cardiomyopathy s/p AICD, Diabetes mellitus type II, HTN, HLD, Carotid disease, CAD (mild non-obstructive) who presents to the [facility] ED on 10/26/19 with history of ~ 1 week of ongoing rhinorrhea, frontal throbbing headaches, 4 days nausea and emesis (bile appearance) with severe-cramping diffuse abdominal pain, worse in the BL LE quadrants and worse with upright, food intake attempts and bowel movements with diarrhea with notable dark appearing stools over the last several days not improving with no fever, chills, myalgia, arthralgia, sense of smell or taste change, cough or worsened dyspnea above baseline as admits to chronic dyspnea with her CHF prompting ED evaluation. Work-up in the ED included T 98.3, heart rate 90, BP 119/72, respiratory rate 16, 96% on room air, CBC with WBC 10.8, hemoglobin 12.4, platelet 269 with increased bands most recent prior hemoglobin 06/20/2019 12.7, CMP with chloride 108, carbon oxide 20, BUN/creatinine 29/1.54, glucose 223, troponin less than 0.015, positive occult blood, type and screen performed, CT abdomen pelvis with diffuse fluid density throughout the GI tract as far as the sigmoid suggestive of nonspecific colitis/diarrheal disorder otherwise no definitive acute or significant abnormality identified, pending COVID testing per Surgery request. General surgery consulted, Dr. Sánchez. In the ED patient administered protonix. Past Medical History Past Medical History (Chronic Problems): Chronic Problems (Last Reviewed 05/30/19 @ 14:38 by Kaye Pierson) Anxiety and depression (Chronic) Former tobacco use (Chronic) Carotid artery disease (Chronic) Pure hypercholesterolemia (Chronic) Essential hypertension (Chronic) Atherosclerotic heart disease of [place] coronary artery without angina pectoris (Chronic) 05/26/2015 @ [facility] per Dr. Boggs: mild nonobstructive CAD Cardiac defibrillator in situ (Chronic) Dr. Garcia's office interrogates @ [facility]: Implanted 03/16/2016 malaleigh ann Garcia, [facility] Nonrheumatic mitral (valve) insufficiency (Chronic) moderate (2+) per echo 01/13/2016 Dilated cardiomyopathy (Chronic) Ejection fraction 20% per echo 01/13/2016 @ [facility] Chronic systolic (congestive) heart failure (Chronic) NICOLLE (obstructive sleep apnea) (Chronic) Diabetes mellitus, type II (Chronic) Obesity (BMI 30-39.9) (Chronic) Abnormal electrocardiogram (Chronic) Medical History: Medical History (Last Reviewed 05/30/19 @ 14:38 by Kaye Pierson) Carotid artery disease (Chronic) I73.9 Pure hypercholesterolemia (Chronic) E78.00 Essential hypertension (Chronic) I10 Atherosclerotic heart disease of [place] coronary artery without angina pectoris (Chronic) I25.10 05/26/2015 @ [facility] per Dr. Boggs: mild nonobstructive CAD Nonrheumatic mitral (valve) insufficiency (Chronic) I34.0 moderate (2+) per echo 01/13/2016 Dilated cardiomyopathy (Chronic) I42.0 Ejection fraction 20% per echo 01/13/2016 @ [facility] Chronic systolic (congestive) heart failure (Chronic) I50.22 NICOLLE (obstructive sleep apnea) (Chronic) G47.33 Diabetes mellitus, type II (Chronic) E11.9 Obesity (BMI 30-39.9) (Chronic) E66.9 Systolic CHF, acute (Resolved) I50.21 Abnormal electrocardiogram (Chronic) BAL[place]ER (acute kidney injury) (Resolved) N17.9 Hyperlipidemia (Inactive) E78.5 Hypertension (Inactive) I10 Allergies red dye Allergy (Verified 10/26/19 18:26) Hives Dhacnwn-Iji-Dmg Reductase Inhibitor Adverse Reaction (Severe, Verified 10/26/19 18:26) Myalgias Home Medications: Ambulatory Orders Medication Instructions Recorded Gabapentin [Neurontin] 600 mg PO QHS 01/12/16 Colestipol Tablet [Colestid Tablet] 1 gm PO BID 06/19/16 Aspirin E.C. [Ecotrin] 81 mg PO DAILY@0800 01/26/17 Carvedilol [Coreg (Beta Matthew)] 12.5 mg PO BID 01/26/17 Cholecalciferol (Vitamin D3) 2,000 unit PO DAILY 01/26/17 [Vitamin D3] Magnesium Chloride [Slow-Mag] 71.5 mg PO DAILY 01/26/17 Sacubitril/Valsartan 49-51 mg 1 tab PO BID 01/26/17 [Entresto 49 mg-51 mg Tablet] liraglutide 0.6 mg/0.1 mL (18 mg/3 1.8 mg SC QDAY 10/01/17 mL) subcutaneous pen injector DiphenhydrAMINE [Benadryl] 50 mg PO QHS PRN PRN 03/20/18 Insulin Detemir [Levemir (BKC)] 40 units SUBCUT QHS 03/20/18 cetirizine 10 mg tablet 5 mg PO DAILY PRN 11/01/18 fluoxetine 40 mg capsule 40 mg PO DAILY 11/01/18 furosemide 20 mg tablet 20 mg PO .COMPLEX 05/24/19 insulin detemir U-100 100 unit/mL 40 unit SUBCUT DAILY ml 11/01/18 (3 mL) subcutaneous pen metformin 1,000 mg tablet 1,000 mg PO BID tab 11/01/18 amlodipine 5 mg tablet 5 mg PO DAILY #30 tab 06/17/19 Insulin Aspart [Novolog Flexpen 2 units SUBCUT .COMPLEX 10/26/19 (BKC)] Surgical History: Surgical History (Last Reviewed 05/30/19 @ 14:38 by Kaye Pierson) Cardiac defibrillator in situ (Chronic) Z95.810 Dr. Garcia's office interrogates @ [facility]: Implanted 03/16/2016 mala Garcia, [facility] S/P hysterectomy Z90.710 Status post breast reduction Z98.890 Status post foot surgery Z98.890 removal of bilat neuromas History of eye surgery Z98.890 Radiation implant of Lt Eye History of bilateral breast reduction surgery Z98.890 History of bilateral foot surgery neuroma excision History of hysterectomy Z90.710 History of left heart catheterization (LHC) Onset Date: ~05/26/15 Z98.890 05/26/2015 @ [facility] per Dr. Boggs: mild nonobstructive CAD Surgical History: - - Hysterectomy, bilateral breast reduction, left eye surgery for tumor, bilateral foot surgery, AICD. 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 Tobacco Use: Non-smoker Alcohol: None Drugs: None - *Family History Maternal Family History: Family History (Last Reviewed 05/30/19 @ 14:38 by Kaye Pierson) Father Lung cancer Mother Breast cancer Brother Cancer History Items: Diabetes, Heart Disease, Hypertension Paternal Family History: Family History (Last Reviewed 05/30/19 @ 14:38 by Kaye Pierson) Father Lung cancer Mother Breast cancer Brother Cancer History Items: Diabetes, Heart Disease, Hypertension Review of Systems Constitutional: Reports: Anorexia, Malaise, Weakness, Fatigue. Denies: Chills, Fever, Weight Change HEENT: Reports: Head Aches, Nasal Congestion, Sinus Congestion. Denies: Sinus Drainage Cardiovascular: Denies: Chest Pain, Chest Pressure, Chest Tightness, Light Headedness, Orthopnea, Palpitations, Syncope Respiratory: Reports: Shortness of breath upon exertion. Denies: Cough, Shortness of Breath, Shortness of breath at rest, Sputum production, Wheezing Gastrointestinal: Reports: Abdominal Pain, Diarrhea, Nausea, Melena, Vomiting Genitourinary: Denies: Dysuria Musculoskeletal: Reports: Back Pain, Joint Pain. Denies: Joint Tenderness Skin: Denies: Rash, Wounds Neurological: Denies: Numbness, Tingling, Focal weakness Psychiatric: Reports: Anxiety, Depression. Denies: Homicidal Ideations, Suicidal Ideations Hematologic/ Lymphatic: Reports: Anemia VTE Information - Inpt Only VTE Present on Admission: No VTE Mechan Device Prophylaxis: SCD's VTE Pharm Prophylaxis ordered?: No Reason prophylaxis not ordered:: Medical Contraindication Patient Problems: Active and Suspected Problems (Last Reviewed 05/30/19 @ 14:38 by Kaye Pierson) Acute upper GI bleeding (Acute) Subjective: Seated upright in the ED bed, fatigued appearance, notes ongoing discomfort to the bilateral lower quadrants of her abdomen. Objective: Physical Examination: General: awake, alert, oriented x 3 and cooperative, seated upright in the ED bed in no apparent distress but uncomfortable appearing. Skin: normal color, turgor, no icterus, cyanosis. HEENT: AT/NC, EOMI, PERRLA, dry MM, no carotid bruits or JVD noted however thickened neck makes examination difficult. Lungs: CTA bilaterally, moderate effort, moderate decrease BL bases, no rales, ronchi or wheezing. Heart: Regular rate and rhythm; no gallop, rub audible. Abdomen: soft, morbidly obese, significant diffuse discomfort, worse bilateral lower quadrants, voluntary guarding, difficult to assess distention given pain, mildly hyperactive bowel sounds, no obvious HSM but difficult assessment given pain and habitus. Extremities: no cyanosis, clubbing, or edema. Neurological: patient awake, alert, oriented x 3; cognitive function peers baseline intact; pupils equally reactive to light and accomodation; cranial nerves II-XII grossly normal, moving all 4 extremities, no focal deficits, strength severely global decrease secondary to acute presentation. Psychiatric: affect appears fatigued, uncomfortable, no acute evidence of depressive or anxiety feelings. - Physical Exam Vitals/I&O's: Vital Signs Temp Pulse Resp BP Pulse Ox 98.3 F 90 16 119/72 96 10/26/19 18:26 10/26/19 18:26 10/26/19 18:26 10/26/19 18:26 10/26/19 18:26 Oxygen Delivery Method Room Air Weight: 236 lb Body Mass Index (BMI) 39.2 Microbiology Past 72 Hours 10/26/19 19:00 Stool Stool Occult Blood (SIAI) - Final Occult Blood Positive Laboratory Results 10/26/19 19:00: WBC 10.8, RBC 4.20, Hgb 12.4, Hct 37.3, MCV 88.8, MCH 29.5, MCHC 33.2, RDW Std Deviation 43.0, RDW Coeff of Ivet 13.4, Plt Count 269, MPV 9.2, Neut % (Auto) Not Reportable, Absolute Neuts (auto) 6.4, Absolute Lymphs (auto) 2.80, Total Counted 100, Neutrophils % (Manual) 52, Band Neutrophils % 7 H, Lymphocytes % (Manual) 26, Monocytes % (Manual) 5, Eosinophils % (Manual) 10 H, Diff Path Review October, Platelet Estimate ADEQUATE, RBC Morphology NORM C+C 10/26/19 19:00: Sodium 139, Potassium 3.7, Chloride 108 H, Carbon Dioxide 20.0 L, Anion Gap 11, BUN 29 H, Creatinine 1.54 H, Estim Creat Clear Calc 32.33, Est GFR (MDRD) Af Amer 43 L, Est GFR (MDRD) Non-Af 36 L, BUN/Creatinine Ratio 18.8, Glucose 223 H, Calcium 8.2 L, Total Bilirubin 0.70, AST 8 L, ALT 13, Alkaline Phosphatase 100, Troponin I < 0.015, Total Protein 6.6, Albumin 3.1 L, Globulin 3.5, Albumin/Globulin Ratio 0.9 10/26/19 19:00: Blood Type A POSITIVE, Antibody Screen NEGATIVE Current Medications Sodium Chloride () 1,000 mls @ 125 mls/hr IV .Q8H [facility] Last Admin: 10/26/19 19:19 Dose: 125 mls/hr Documented by: Assessment/Plan All Active Problems (Last Reviewed 05/30/19 @ 14:38 by Kaye Pierson) Acute upper GI bleeding (Acute) Systolic CHF, acute (Resolved) BALWINDER (acute kidney injury) (Resolved) The patient is a 64 y/o F w/ PMHx: Anxiety and Depression, CKD stage III, NICOLLE on BIPAP q HS, Systolic CHF, Dilated Cardiomyopathy s/p AICD, Diabetes mellitus type II, HTN, HLD, Carotid disease, CAD (mild non-obstructive) who presents to the [facility] ED on 10/26/19 with history of ~ 1 week of ongoing rhinorrhea, frontal throbbing headaches, 4 days nausea and emesis (bile appearance) with severe-cramping diffuse abdominal pain, worse in the BL LE quadrants and worse with upright, food intake attempts and bowel movements with diarrhea with notable dark appearing stools. 1. Acute GI Bleed: Admission Hgb 12.4 and recently similar; however, abdominal pain, enteritis appearance on imaging, + guiac, black appearing stools per her report, will admit to PCU, maintain on IVFs, obtain serial H+H q 4 hours, maintain on IV PPI. GI consulted, Dr. Sánchez with planned EGD in AM. 2. ? Acute Viral Syndrome, COVID-19: Patient with GI symptoms as noted as well as some URI symptoms but no specific dyspnea or fevers associated, to be cautious especially given planned for EGD will await COVID testing and maintain patient in the ED pending this result. If this is negative we will plan PCU transition but if positive will plan COVID unit transition on telemetry and will update the general surgeon. If COVID positive would plan to obtain CXR, possilby place on abx therapy with IV Rocephin and Azithromycin, obtain sputum cultures and urine antigens, procalcitonin, CRP, Ferritin, LDH. If positive, suspect likely etiology of #1. 3. Chronic Kidney Disease Stage III: Admission BUN/Cr 29/1.54, baseline renal function 1.1-1.4, suspect mildly increased from her normal secondary to acute presentation as noted #1, repeat BMP in AM. 4. Chronic systolic CHF/cardiomyopathy status post AICD: Status post AICD as noted, holding aspirin, continue Coreg, Lasix, Entresto with hold parameters. 5. CAD: Noted mild, nonobstructive, holding aspirin therapy, continue Coreg, noted statin allergy. 6. Carotid disease: Holding aspirin, continue hypertensive and diabetic regimen alterations as noted. 7. Diabetes mellitus type II: Hold oral home regimen, continue home insulin regimen at one half dose while n.p.o. status, currently n.p.o. diet given acute presentation #1, Accu checks w/ ISS. 8. Hypertension: Continue home regimen including amlodipine, Coreg, Lasix, Entresto with hold parameters, PRN hydralazine. 9. Hyperlipidemia: Noted statin allergy. 10. Obesity: Weight loss and lifestyle changes encouraged. 11. GERD: Maintained on IV PPI as noted. 12. NICOLLE: Maintain on nightly BiPAP although pending COVID testing is noted which may alter this decision. 13. Anxiety and depression: We will continue patient home fluoxetine regimen. 14. DVT prophylaxis: SCDs, defer chemoprophylaxis given acute presentation. 15. CODE status: Patient HCPOA is her and living will is not currently in place. Discussed CODE status at length including difference between FULL code, DNR-CCA and DNR-CC status. Following discussions about the differences in these status, requested full CODE STATUS. Advanced Care Planning Face to Face Time: 16 minutes. Inpatient E&M: 70655 Init Hosp L3 Procedures: 22738 Advncd Care Plan 30 Min
[2019-10-26] MEDS: Morphine 4 MG/ML Syringe IV (21:49)
[2019-10-26 21:54] VITALS: BP 138/76; PULSE 85; RESP 20; TEMP 36.9; O2SAT 98
[2019-10-27] VITALS (18 sets, daily range): BP systolic 76–108; BP diastolic 39–65; PULSE 71–90; RESP 12–20; TEMP 36.8–37; O2SAT 94–99; BMI 38.9; BMI 39.0; BMI 38.8
[2019-10-27 00:02] LABS: Bacteria 0 SEEN /hpf (None Seen); Mucous, Urine 0 SEEN /hpf (<or=2+)
[2019-10-27 00:06] LABS: Color, Urine Yellow (Yellow); Glucose, Dipstick Normal (Normal); Ketone-Dipstick 5 mg/dl (Negative); Leukocyte Esterase-Dipstick 100 /ul (Negative); Nitrite-Dipstick Negative (Negative); Occult Blood-Urine 10 /ul (Negative); Protein-Dipstick 30 mg/dl (Negative); Specific Gravity, Urine 1.025 (1.002-1.030); Urine Clarity Clear (Clear); Urine Urobilinogen Normal (Normal)
[2019-10-27 00:07] LABS: Urine Bilirubin Dipstick 3 mg/dL (Negative)
[2019-10-27 00:13] LABS: Red Blood Cells-Urine 5-10 SEEN /hpf (0-5); Squamous Epithelial Cells - UA 0-5 SEEN /hpf (5-10); White Blood Cells 10-25 SEEN /hpf (0-5); Yeast-Urine RARE /hpf (None Seen)
[2019-10-27 01:36] LABS: Bedside Glucose 148 mg/dL (70-110)
[2019-10-27 01:49] LABS: Hematocrit 35.8 % (37-47); Hemoglobin 11.5 g/dL (12.0-15.0)
[2019-10-27] MEDS: 0.9% Normal Saline 1,000 ML 125 ML IV ×2 (02:26→09:32)
[2019-10-27] MEDS: 0.9% Saline Lock 10 ML Syringe IV (02:31)
[2019-10-27] MEDS: Ondansetron 4 MG/2 ML Vial IV (02:32)
[2019-10-27] MEDS: oxyCODONE 5 MG Tablet PO ×2 (02:36→06:48)
[2019-10-27] MEDS: SACUBITRIL/VALSARTAN 49-51 MG TABLET 1 EACH PO ×2 (02:36→12:47)
[2019-10-27] MEDS: Carvedilol 12.5 MG Tablet PO (02:36)
[2019-10-27] MEDS: Gabapentin 600 MG Tablet PO (02:37)
[2019-10-27 05:31] LABS: Bedside Glucose 166 mg/dL (70-110)
[2019-10-27 06:08] LABS: Absolute Lymphocyte Count 2.61 X10^3/uL (0.83-4.51); Absolute Neutrophil Count 5.8 X10^3/uL (2.0-7.7); Basophil# 0.06 X10^3/uL; Basophil% 0.5 % (0-1); Eosinophils% 18.2 % (0-5); Hematocrit 36.1 % (37-47); Hemoglobin 11.6 g/dL (12.0-15.0); Lymphocyte # 2.61 X10^3/ul (4.0); Lymphocyte % 22.1 % (19-41); Mean Corp Hgb Conc 32.1 g/dL (32-36); Mean Corpuscular Hgb 29.2 pg (27.0-32.0); Mean Corpuscular Volume 90.9 fL (81-99); Mean Platelet Vol. 9.4 fl (6.2-12.0); Monocyte# 0.72 X10^3/uL; Monocyte% 6.1 % (0-10); NRBC Flagged by Analyzer 0.2 % (0-5); Neutrophil # 5.79 X10^3/uL (2.7-7.7); Neutrophil % 49.1 % (47-70); POSITIVE DIFFERENTIAL YES; Platelet Count 247 K/mm3 (150-450); RBC Distribution Width CV 13.1 % (11.6-14.6); RBC Distribution Width SD 43.3 fl (35.1-43.9); Red Blood Count 3.97 M/mm3 (4.2-5.4); White Blood Count 11.8 K/mm3 (4.4-11.0)
[2019-10-27 06:24] LABS: Differential Indicated SCAN CRITERIA MET; Eosinophil# 2.14 X10^3/uL
[2019-10-27 06:26] LABS: ALB/GLOB Ratio 0.8 RATIO (0.9-2.4); AST(SGOT) 5 U/L (15-37); Alanine Aminotransfer ALT/SGPT 11 U/L (13-56); Albumin, Serum 2.7 g/dL (3.2-5.0); Alkaline Phosphatase 104 U/L (45-117); Anion Gap 9 (5-15); BUN 30 mg/dL (7-18); BUN/Creat Ratio 20.1 RATIO (10-20); Calcium,Total 7.4 mg/dL (8.5-10.1); Chloride 110 mmol/L (98-107); Creatinine, Serum 1.49 mg/dL (0.55-1.02); EST Glomerular Filtration Rate 37 mL/min (>60); Est Glom Filt Rate - Afr Amer 45 mL/min (>60); Estimated Creatinine Clearance 33.42 ml/min; Globulin 3.3 g/dL (2.2-4.2); Glucose 177 mg/dL (74-106); Potassium 3.4 mmol/L (3.5-5.1); Sodium Level 139 mmol/L (136-145)
[2019-10-27 06:43] LABS: Differential Comment SCANNED
--- NOTE | 2019-10-27 08:52 | PCM.CONS.GEN ---
Reason for Consult Date of Consultation: 10/27/19 History of Present Illness: The patient is a 64 year old F patient presented to the ER due to melena. On work-up patient was found to have a hemoglobin of 12. Patient states that since she has been having black stools. Patient states that the previous Sunday and Sunday she did throw up once each day and then also last Sunday and also had nausea and emesis. Patient has been on a calcium channel matthew due to dysphasia since the beginning of this year. Patient states currently her stools are becoming a little more trejo than black. She also did states she had some Pepto-Bismol after the melena started. Patient's last colonoscopy was in 2018. Past Medical History Past Medical History (Chronic Problems): Chronic Problems (Last Reviewed 05/30/19 @ 14:38 by Kaye Pierson) Anxiety and depression (Chronic) Former tobacco use (Chronic) Carotid artery disease (Chronic) Pure hypercholesterolemia (Chronic) Essential hypertension (Chronic) Atherosclerotic heart disease of [place] coronary artery without angina pectoris (Chronic) 05/26/2015 @ [facility] per Dr. Boggs: mild nonobstructive CAD Cardiac defibrillator in situ (Chronic) Dr. Garcia's office interrogates @ [facility]: Implanted 03/16/2016 mala Garcia, [facility] Nonrheumatic mitral (valve) insufficiency (Chronic) moderate (2+) per echo 01/13/2016 Dilated cardiomyopathy (Chronic) Ejection fraction 20% per echo 01/13/2016 @ [facility] Chronic systolic (congestive) heart failure (Chronic) NICOLLE (obstructive sleep apnea) (Chronic) Diabetes mellitus, type II (Chronic) Obesity (BMI 30-39.9) (Chronic) Abnormal electrocardiogram (Chronic) Medical History: Medical History (Last Reviewed 05/30/19 @ 14:38 by Kaye Pierson) Carotid artery disease (Chronic) I73.9 Pure hypercholesterolemia (Chronic) E78.00 Essential hypertension (Chronic) I10 Atherosclerotic heart disease of [place] coronary artery without angina pectoris (Chronic) I25.10 05/26/2015 @ [facility] per Dr. Boggs: mild nonobstructive CAD Nonrheumatic mitral (valve) insufficiency (Chronic) I34.0 moderate (2+) per echo 01/13/2016 Dilated cardiomyopathy (Chronic) I42.0 Ejection fraction 20% per echo 01/13/2016 @ [facility] Chronic systolic (congestive) heart failure (Chronic) I50.22 NICOLLE (obstructive sleep apnea) (Chronic) G47.33 Diabetes mellitus, type II (Chronic) E11.9 Obesity (BMI 30-39.9) (Chronic) E66.9 Systolic CHF, acute (Resolved) I50.21 Abnormal electrocardiogram (Chronic) BALWINDER (acute kidney injury) (Resolved) N17.9 Hyperlipidemia (Inactive) E78.5 Hypertension (Inactive) I10 Allergies red dye Allergy (Verified 10/26/19 18:26) Hives Ceshuxp-Mrb-Rhm Reductase Inhibitor Adverse Reaction (Severe, Verified 10/26/19 18:26) Myalgias Home Medications: Ambulatory Orders Medication Instructions Recorded Gabapentin [Neurontin] 600 mg PO QHS 01/12/16 Colestipol Tablet [Colestid Tablet] 1 gm PO BID 06/19/16 Aspirin E.C. [Ecotrin] 81 mg PO DAILY@0800 01/26/17 Carvedilol [Coreg (Beta Matthew)] 12.5 mg PO BID 01/26/17 Cholecalciferol (Vitamin D3) 2,000 unit PO PAYNE 01/26/17 [Vitamin D3] Magnesium Chloride [Slow-Mag] 71.5 mg PO DAILY 01/26/17 Sacubitril/Valsartan 49-51 mg 1 tab PO BID 01/26/17 [Entresto 49 mg-51 mg Tablet] liraglutide 0.6 mg/0.1 mL (18 mg/3 1.8 mg SC DAILY 10/01/17 mL) subcutaneous pen injector DiphenhydrAMINE [Benadryl] 50 mg PO QHS PRN PRN 03/20/18 cetirizine 10 mg tablet 5 mg PO DAILY PRN 11/01/18 fluoxetine 40 mg capsule 40 mg PO DAILY 11/01/18 furosemide 20 mg tablet 20 mg PO .COMPLEX 11/01/18 metformin 1,000 mg tablet 1,000 mg PO BID tab 11/01/18 amlodipine 5 mg tablet 5 mg PO DAILY #30 tab 06/17/19 Insulin Aspart [Novolog Flexpen 2 units SUBCUT .COMPLEX 10/26/19 ([facility])] Insulin Detemir [Levemir FlexPen] 40 units SUBCUT BID 10/27/19 Surgical History: Surgical History (Last Reviewed 05/30/19 @ 14:38 by Kaye Pierson) Cardiac defibrillator in situ (Chronic) Z95.810 Dr. Garcia's office interrogates @ [facility]: Implanted 03/16/2016 mala Garcia, [facility] S/P hysterectomy Z90.710 Status post breast reduction Z98.890 Status post foot surgery Z98.890 removal of bilat neuromas History of eye surgery Z98.890 Radiation implant of Lt Eye History of bilateral breast reduction surgery Z98.890 History of bilateral foot surgery neuroma excision History of hysterectomy Z90.710 History of left heart catheterization (LHC) Onset Date: ~05/26/15 Z98.890 05/26/2015 @ [facility] per Dr. Boggs: mild nonobstructive CAD Surgical History: - - Hysterectomy, bilateral breast reduction, left eye surgery for tumor, bilateral foot surgery, AICD. Psychiatric History: No pertinent psych hx [employer] PUBL[employer]IST History: No pertinent [employer] PUBL[employer]IST history Lives: Spouse/ Significant Other Smoking Status: Former smoker Tobacco Use: Cigarettes Alcohol: None Drugs: None - *Family History Maternal Family History: Family History (Last Reviewed 05/30/19 @ 14:38 by Kaye Pierson) Father Lung cancer Mother Breast cancer Brother Cancer History Items: Diabetes, Heart Disease, Hypertension Paternal Family History: Family History (Last Reviewed 05/30/19 @ 14:38 by Kaye Pierson) Father Lung cancer Mother Breast cancer Brother Cancer History Items: Diabetes, Heart Disease, Hypertension Review of Systems Constitutional: Denies: Anorexia Eyes: Denies: Blurred vision HEENT: Reports: Difficulty Swallowing - Improved with calcium channel blockers Cardiovascular: Denies: Chest Pain Respiratory: Reports: Cough Gastrointestinal: Reports: Nausea, Vomiting - On the last Sunday/. Denies: Abdominal Pain Genitourinary: Denies: Dysuria Neurological: Denies: Confusion Psychiatric: Denies: Anxiety Hematologic/ Lymphatic: Denies: Easy Bleeding Patient Problems: Active and Suspected Problems (Last Reviewed 05/30/19 @ 14:38 by Kaye Pierson) Acute upper GI bleeding (Acute) - Physical Exam Vitals/I&O's: Vital Signs Temp Pulse Resp BP Pulse Ox 98.6 F 79 16 92/56 L 94 10/27/19 06:45 10/27/19 06:49 10/27/19 06:45 10/27/19 06:45 10/27/19 06:45 Oxygen Delivery Method Room Air Weight: 233 lb 7.512 oz Body Mass Index (BMI) 38.8 Intake and Output for Last 24 Hours 10/25/19 10/26/19 10/27/19 23:59 23:59 23:59 Intake Total 1129.58 / 1129.58 Balance 1129.58 / 1129.58 General: Alert, Oriented x3, Cooperative, No apparent distress HEENT: Atraumatic Lungs: Normal air movement Cardiovascular: Regular rate, - - Pacer and defibrillator in place Abdomen: Soft, Non-Distended, Tender - Mild diffuse, no peritoneal signs Neurological: Cranial nerves II-XII grossly intact Psych/Mental Status: Normal Affect Microbiology Past 72 Hours 10/26/19 21:49 Mucosa - Nasopharyngeal Coronavirus COVID-19 PCR - Final 10/26/19 19:00 Stool Stool Occult Blood (ISAI) - Final Occult Blood Positive Laboratory Results 10/26/19 11:59: Urine Color Yellow, Urine Clarity Clear, Urine pH 5.0, Ur Specific Colbert 1.025, Urine Protein 30 H, Urine Glucose (UA) Normal, Urine Ketones 5 H, Urine Occult Blood 10 H, Urine Nitrite Negative, Urine Bilirubin 3 H, Urine Urobilinogen Normal, Ur Leukocyte Esterase 100 H, Urine RBC 5-10 SEEN, Urine WBC 10-25 SEEN, Ur Squamous Epith Cells 0-5 SEEN, Urine Bacteria 0 SEEN, Urine Mucus 0 SEEN, Urine Yeast RARE 10/26/19 19:00: WBC 10.8, RBC 4.20, Hgb 12.4, Hct 37.3, MCV 88.8, MCH 29.5, MCHC 33.2, RDW Std Deviation 43.0, RDW Coeff of Ivet 13.4, Plt Count 269, MPV 9.2, Neut % (Auto) Not Reportable, Absolute Neuts (auto) 6.4, Absolute Lymphs (auto) 2.80, Total Counted 100, Neutrophils % (Manual) 52, Band Neutrophils % 7 H, Lymphocytes % (Manual) 26, Monocytes % (Manual) 5, Eosinophils % (Manual) 10 H, Diff Path Review May foll, Platelet Estimate ADEQUATE, RBC Morphology NORM C+C 10/26/19 19:00: Sodium 139, Potassium 3.7, Chloride 108 H, Carbon Dioxide 20.0 L, Anion Gap 11, BUN 29 H, Creatinine 1.54 H, Estim Creat Clear Calc 32.33, Est GFR (MDRD) Af Amer 43 L, Est GFR (MDRD) Non-Af 36 L, BUN/Creatinine Ratio 18.8, Glucose 223 H, Calcium 8.2 L, Total Bilirubin 0.70, AST 8 L, ALT 13, Alkaline Phosphatase 100, Troponin I < 0.015, Total Protein 6.6, Albumin 3.1 L, Globulin 3.5, Albumin/Globulin Ratio 0.9 10/26/19 19:00: Blood Type A POSITIVE, Antibody Screen NEGATIVE 10/26/19 21:49: COVID-19 (SHIRA) Cancelled 10/27/19 01:28: POC Glucose 148 H 10/27/19 01:40: Hgb 11.5 L, Hct 35.8 L 10/27/19 04:58: POC Glucose 166 H 10/27/19 05:30: WBC 11.8 H, RBC 3.97 L, Hgb 11.6 L, Hct 36.1 L, MCV 90.9, MCH 29.2, MCHC 32.1, RDW Std Deviation 43.3, RDW Coeff of Ivet 13.1, Plt Count 247, MPV 9.4, Immature Gran % (Auto) 4.000 H, Neut % (Auto) 49.1, Lymph % (Auto) 22.1, [facility] % (Auto) 6.1, Eos % (Auto) 18.2 H, Baso % (Auto) 0.5, Absolute Neuts (auto) 5.8, Absolute Lymphs (auto) 2.61, Nucleated RBC % 0.2, Differential Comment SCANNED, Diff Path Review October dylan 10/27/19 05:30: Sodium 139, Potassium 3.4 L, Chloride 110 H, Carbon Dioxide 20.0 L, Anion Gap 9, BUN 30 H, Creatinine 1.49 H, Estim Creat Clear Calc 33.42, Est GFR (MDRD) Af Amer 45 L, Est GFR (MDRD) Non-Af 37 L, BUN/Creatinine Ratio 20.1 H, Glucose 177 H, Calcium 7.4 L, Total Bilirubin 0.80, AST 5 L, ALT 11 L, Alkaline Phosphatase 104, Total Protein 6.0 L, Albumin 2.7 L, Globulin 3.3, Albumin/Globulin Ratio 0.8 L Current Medications Acetaminophen (Tylenol) 650 mg PO Q6H PRN PRN PRN Reason: Pain Score 1-10/Temp > 100.7 F Albuterol Sulfate (Ventolin Aerosols) 2.5 mg INHALATION Q2H PRN PRN PRN Reason: Dyspnea, wheezing Amlodipine Besylate (Norvasc) 5 mg PO DAILY [facility] Carvedilol (Coreg) 12.5 mg PO BID [facility] Last Admin: 10/27/19 02:36 Dose: 12.5 mg Documented by: Dextrose (D50w Syringe) 0 gm IV X1 PRN; Protocol PRN Reason: Hypoglycemia Fluoxetine HCl (Prozac) 40 mg PO DAILY [facility] Furosemide (Lasix) 20 mg PO 1800 [facility] Furosemide (Lasix) 40 mg PO DAILY [facility] Gabapentin (Neurontin) 600 mg PO QHS [facility] Last Admin: 10/27/19 02:37 Dose: 600 mg Documented by: Glucagon () 1 mg IM .X1 PRN PRN Reason: Hypoglycemia Hydralazine HCl (Apresoline Iv) 10 mg IV Q4H PRN PRN PRN Reason: SBP > 160 Sodium Chloride () 1,000 mls @ 125 mls/hr IV .Q8H [facility] Last Admin: 10/27/19 02:26 Dose: 125 mls/hr Documented by: Pantoprazole Sodium 40 mg/ (Sodium Chloride) 110 mls @ 330 mls/hr IV Q12 [facility] Insulin Glargine (Lantus (Bkc)) 20 units SC BID [facility] Last Admin: 10/27/19 05:04 Dose: Not Given Documented by: Insulin Human Lispro (Humalog Kwikpen (Bkc)) 0 unit SC Q6 [facility]; Protocol Last Admin: 10/27/19 05:04 Dose: Not Given Documented by: Loratadine (Claritin) 5 mg PO DAILY PRN PRN PRN Reason: ALLERGIES Melatonin (Melatonin) 3 mg PO QHS PRN PRN PRN Reason: INSOMNIA Morphine Sulfate () 4 mg IV Q3H PRN PRN PRN Reason: Pain Score 6-10/10 Nitroglycerin (Nitrostat) 0.4 mg SUBLINGUAL Q5M PRN PRN Reason: CARDIAC/CHEST PAIN Ondansetron HCl (Zofran) 4 mg IV Q8H PRN PRN PRN Reason: NAUSEA/VOMITING Last Admin: 10/27/19 02:32 Dose: 4 mg Documented by: Oxycodone HCl (Oxyir) 5 mg PO Q4H PRN PRN PRN Reason: Pain Score 4-5/10 Last Admin: 10/27/19 06:48 Dose: 5 mg Documented by: Prochlorperazine Edisylate (Compazine Iv) 5 mg IV Q4H PRN PRN PRN Reason: Breakthrough Nausea/Vomiting Sacubitril/Valsartan (Entresto 49 Mg-51 Mg Tablet) 1 each PO BID [facility] Last Admin: 10/27/19 02:36 Dose: 1 each Documented by: Sodium Chloride () 10 - 40 ml IV UD PRN PRN Reason: SALINE FLUSH Last Admin: 10/27/19 02:31 Dose: 20 ml Documented by: Assessment/Plan All Active Problems (Last Reviewed 05/30/19 @ 14:38 by Kaye Pierson) Acute upper GI bleeding (Acute) Systolic CHF, acute (Resolved) BALWINDER (acute kidney injury) (Resolved) 64-year-old female with upper GI bleed, melena I have discussed the above with the patient. I have offered the patient EGD for evaluation. I have explained the risks/benefits of the procedure and described the procedure. I have discussed the risks with the patient, including but not limited to: infection, bleeding, perforation of the GI tract requiring emergency surgery, inability to complete the procedure, injury to any internal organs, complications of anesthesia, etc. - the patient understands and agrees to proceed. I have answered all the patient's questions to the patient's satisfaction and the patient has no further questions. Fallon Sánchez M.D. Pager: [phone] [facility] [address] [place] [address], [address] [place] [address] Office: [phone] Essential Procedure Criteria Procedure Essential: Yes Criteria Note: On 08/26/2019 the [place] Department of Health ([facility]) Public Order signed by [facility] Director Lety Brasher M.D., regarding the Management of Non-Essential Surgeries and Procedures for the purpose of preserving Personal Protective Equipment (PPE) and critical hospital capacity and resources within [place] went into effect as of 08/27/2019 at 5:00PM. According to the [facility] Public Order: This action will remain in full force and effect until the State of Emergency declared by the Governor no longer exists or the Director of the [facility] rescinds or modifies this Order.. This [facility] order stated all non-essential or elective surgeries and procedures that utilize PPE should be delayed unless there is undue risk to the current or future health of a patient. After reviewing the aforementioned [facility] Public Order and the patients clinical case, I have determined that the scheduled procedure meets the criteria to go forward. Risk to Patient if Procedure Delayed: Risk of rapidly worsening to severe symptoms if delayed Inpatient E&M: 99101 Init Hosp L2
[2019-10-27 09:33] LABS: Hemoglobin A1c 8.4 % (4.2-6.3)
--- NOTE | 2019-10-27 10:37 | CASEMGMT ---
SOPHIE HILLIARD assessment: Face to Face with patient for initial transition planning/care coordination assessment. SOPHIE HILLIARD introduced self and role at [facility], pt voices understanding and consents to assessment at this time. Pt is lying in bed in no distress at this time. Pt is A/Ox4 at this time and answers all questions appropriately at this time. Care providers, pharmacy, and demographics verified/updated at this time. Presentation: Pt reports diarrhea and dark stool Admitting dx: Upper GI bleed PCP: Tal Specialists: Ambrose, cardio; Vetestke, pacer/defib in [place]; Quintana, eyes Preferred [facility]acy: [facility] Insurance: MCR A/B, comoth Prescription Benefit: MCR D Living Will/HPOA: Pt states does not have a LW/HPOA and declines AD info at this time. LNOK: Blake Cruz, Living Arrangements: Pt states lives with on main level of [place] and states no concerns at home at this time. Pt states is independent with ADL's. Transportation: Pt states drives self and states no transportation concerns at this time. DME/HHC: Pt states has canes, grab bars and shower chair and declines need for any further DME at this time. Pt states no hx of HHC or SNF in the past. Pt states no concerns with going home at time of discharge. Pt states is retired. Pt states does not smoke or drink ETOH. Pt states no further concerns/needs at this time. CM to follow for any further discharge planning/needs. Advised pt to ask for CM if any further questions/concerns/needs arise, voices understanding. Pt Goal: Home Plan[place] SOPHIE HILLIARD
[2019-10-27 11:05] LABS: Bedside Glucose 185 mg/dL (70-110)
--- NOTE | 2019-10-27 11:27 | PN_ITS ---
<Nico Tamayo - Last Filed: 10/27/19 11:27> Patient Problems: Active and Suspected Problems (Last Reviewed 05/30/19 @ 14:38 by Kaye Pierson) Acute upper GI bleeding (Acute) Reason for Visit: GI bleed Subjective: Pt has been having black stools for several days. Today chadwick diarrhea. She has had diffuse abd pain and diarrhea, also nausea and vomiting for about 4 days. She denies a hx of colitis, denies hx of ulcers. She does get heartburn. No fever/chills. Today no vomiting. No black or coffee ground emesis. She does c/o lightheadedness at rest in bed. Vitals/I&O's: Vital Signs Temp Pulse Resp BP Pulse Ox 98.6 F 79 16 93/53 L 94 10/27/19 09:23 10/27/19 09:23 10/27/19 09:23 10/27/19 09:23 10/27/19 09:23 Oxygen Delivery Method Room Air Weight: 233 lb 7.512 oz Body Mass Index (BMI) 38.8 Intake and Output for Last 24 Hours 10/25/19 10/26/19 10/27/19 23:59 23:59 23:59 Intake Total 2126.2126. Balance 35 2126. General: Alert, Oriented x3, Cooperative HEENT: Atraumatic, PERRLA, EOMI, Normocephalic Neck: Supple, No JVD, Negative Carotid Bruits Lungs: Clear to auscultation, Normal air movement Cardiovascular: Regular rate, No murmurs Abdomen: Bowel Sounds Present, Soft, Tender - diffuse tenderness to light palp Extremities: No edema, Capillary Refill Less than 3 Seconds Skin: No rashes, No breakdown Musculoskeletal: No Tenderness to Palpation of Joints or Extremities Neurological: Cranial nerves II-XII grossly intact Psych/Mental Status: Normal Affect, Appropriate Microbiology Past 72 Hours 10/26/19 21:49 Mucosa - Nasopharyngeal Coronavirus COVID-19 PCR - Final 10/26/19 19:00 Stool Stool Occult Blood (ISAI) - Final Occult Blood Positive Laboratory Results 10/26/19 11:59: Urine Color Yellow, Urine Clarity Clear, Urine pH 5.0, Ur Specific [place] 1.025, Urine Protein 30 H, Urine Glucose (UA) Normal, Urine Ketones 5 H, Urine Occult Blood 10 H, Urine Nitrite Negative, Urine Bilirubin 3 H, Urine Urobilinogen Normal, Ur Leukocyte Esterase 100 H, Urine RBC 5-10 SEEN, Urine WBC 10-25 SEEN, Ur Squamous Epith Cells 0-5 SEEN, Urine Bacteria 0 SEEN, Urine Mucus 0 SEEN, Urine Yeast RARE 10/26/19 19:00: WBC 10.8, RBC 4.20, Hgb 12.4, Hct 37.3, MCV 88.8, MCH 29.5, MCHC 33.2, RDW Std Deviation 43.0, RDW Coeff of Ivet 13.4, Plt Count 269, MPV 9.2, Neut % (Auto) Not Reportable, Absolute Neuts (auto) 6.4, Absolute Lymphs (auto) 2.80, Total Counted 100, Neutrophils % (Manual) 52, Band Neutrophils % 7 H, Lymphocytes % (Manual) 26, Monocytes % (Manual) 5, Eosinophils % (Manual) 10 H, Diff Path Review October, Platelet Estimate ADEQUATE, RBC Morphology NORM C+C 10/26/19 19:00: Sodium 139, Potassium 3.7, Chloride 108 H, Carbon Dioxide 20.0 L , Anion Gap 11, BUN 29 H, Creatinine 1.54 H, Estim Creat Clear Calc 32.33, Est GFR (MDRD) Af Amer 43 L, Est GFR (MDRD) Non-Af 36 L, BUN/Creatinine Ratio 18.8, Glucose 223 H, Calcium 8.2 L, Total Bilirubin 0.70, AST 8 L, ALT 13, Alkaline Phosphatase 100, Troponin I < 0.015, Total Protein 6.6, Albumin 3.1 L, Globulin 3.5, Albumin/Globulin Ratio 0.9 10/26/19 19:00: Blood Type A POSITIVE, Antibody Screen NEGATIVE 10/26/19 21:49: COVID-19 (SHIRA) Cancelled 10/27/19 01:28: POC Glucose 148 H 10/27/19 01:40: Hgb 11.5 L, Hct 35.8 L 10/27/19 04:58: POC Glucose 166 H 10/27/19 05:30: WBC 11.8 H, RBC 3.97 L, Hgb 11.6 L, Hct 36.1 L, MCV 90.9, MCH 29.2, MCHC 32.1, RDW Std Deviation 43.3, RDW Coeff of Ivet 13.1, Plt Count 247, MPV 9.4, Immature Gran % (Auto) 4.000 H, Neut % (Auto) 49.1, Lymph % (Auto) 22.1, Delta % (Auto) 6.1, Eos % (Auto) 18.2 H, Baso % (Auto) 0.5, Absolute Neuts (auto) 5.8, Absolute Lymphs (auto) 2.61, Nucleated RBC % 0.2, Differential Comment SCANNED, Diff Path Review October foll 10/27/19 05:30: Sodium 139, Potassium 3.4 L, Chloride 110 H, Carbon Dioxide 20.0 L, Anion Gap 9, BUN 30 H, Creatinine 1.49 H, Estim Creat Clear Calc 33.42, Est GFR (MDRD) Af Amer 45 L, Est GFR (MDRD) Non-Af 37 L, BUN/Creatinine Ratio 20.1 H , Glucose 177 H, Calcium 7.4 L, Total Bilirubin 0.80, AST 5 L, ALT 11 L, Alkaline Phosphatase 104, Total Protein 6.0 L, Albumin 2.7 L, Globulin 3.3, Albumin/Globulin Ratio 0.8 L 10/27/19 05:30: Hemoglobin A1c 8.4 H 10/27/19 10:37: POC Glucose 185 H Current Medications Acetaminophen (Tylenol) 650 mg PO Q6H PRN PRN PRN Reason: Pain Score 1-10/Temp > 100.7 F Albuterol Sulfate (Ventolin Aerosols) 2.5 mg INHALATION Q2H PRN PRN PRN Reason: Dyspnea, wheezing Amlodipine Besylate (Norvasc) 5 mg PO DAILY [facility] Carvedilol (Coreg) 12.5 mg PO BID [facility] Last Admin: 10/27/19 02:36 Dose: 12.5 mg Documented by: Dextrose (D50w Syringe) 0 gm IV X1 PRN; Protocol PRN Reason: Hypoglycemia Fluoxetine HCl (Prozac) 40 mg PO DAILY [facility]ULL[facility]I Furosemide (Lasix) 20 mg PO 1800 ABD[facility] Furosemide (Lasix) 40 mg PO DAILY [facility] Gabapentin (Neurontin) 600 mg PO QHS [facility] Last Admin: 10/27/19 02:37 Dose: 600 mg Documented by: Glucagon () 1 mg IM .X1 PRN PRN Reason: Hypoglycemia Hydralazine HCl (Apresoline Iv) 10 mg IV Q4H PRN PRN PRN Reason: SBP > 160 Sodium Chloride () 1,000 mls @ 125 mls/hr IV .Q8H [facility] Last Admin: 10/27/19 09:32 Dose: 125 mls/hr Documented by: Pantoprazole Sodium 40 mg/ (Sodium Chloride) 110 mls @ 330 mls/hr IV Q12 [facility] Last Infusion: 10/27/19 10:40 Dose: Infused Documented by: Insulin Glargine (Lantus (Bk)) 20 units SC BID [facility] Last Admin: 10/27/19 05:04 Dose: Not Given Documented by: Insulin Human Lispro (Humalog Kwikpen ([facility])) 0 unit SC Q6 [facility]; Protocol Last Admin: 10/27/19 11:09 Dose: Not Given Documented by: Loratadine (Claritin) 5 mg PO DAILY PRN PRN PRN Reason: ALLERGIES Melatonin (Melatonin) 3 mg PO QHS PRN PRN PRN Reason: INSOMNIA Morphine Sulfate () 4 mg IV Q3H PRN PRN PRN Reason: Pain Score 6-10/10 Nitroglycerin (Nitrostat) 0.4 mg SUBLINGUAL Q5M PRN PRN Reason: CARDIAC/CHEST PAIN Ondansetron HCl (Zofran) 4 mg IV Q8H PRN PRN PRN Reason: NAUSEA/VOMITING Last Admin: 10/27/19 02:32 Dose: 4 mg Documented by: Oxycodone HCl (Oxyir) 5 mg PO Q4H PRN PRN PRN Reason: Pain Score 4-5/10 Last Admin: 10/27/19 06:48 Dose: 5 mg Documented by: Prochlorperazine Edisylate (Compazine Iv) 5 mg IV Q4H PRN PRN PRN Reason: Breakthrough Nausea/Vomiting Sacubitril/Valsartan (Entresto 49 Mg-51 Mg Tablet) 1 each PO BID [facility] Last Admin: 10/27/19 02:36 Dose: 1 each Documented by: Sodium Chloride () 10 - 40 ml IV UD PRN PRN Reason: SALINE FLUSH Last Admin: 10/27/19 02:31 Dose: 20 ml Documented by: STROKE Vital Signs/Narrative: Vital Signs Temp Pulse Resp BP Pulse Ox 10/27/19 09:23 98.6 F 79 16 93/53 L 94 Medical Necessity - Tobacco Use Smoking Status: Former smoker Tobacco Use: Cigarettes Assessment/Plan All Active Problems (Last Reviewed 05/30/19 @ 14:38 by Kaye Pierson) Acute upper GI bleeding (Acute) Systolic CHF, acute (Resolved) BALWINDER (acute kidney injury) (Resolved) 1. Acute blood loss anemia 2/2 GI bleed - black diarrhea with nausea and vomiting for about 4 days. Minimal decrease in Hgb, tho she does have LH. Gen surgery is following and she is going for EGD today. Continue PPI BID. Continue to hold aspirin. CT with possible colitis. Mild leukocytosis,no fever. Replace K. COVID 19 test is negative. 2. CKDIII - stable. repeat am bmp. 3. CAD - nonobstructive. aspirin held. Continue other home medications. statin allergic. 4. Hx Chronic systolic CHF and cardiomyopathy - has AICD. No acute exacerbation 5. DMt2 - A1C 8.4 Continue lantus at decreased dose, titrate to response, and SSI. orals held. 6. NICOLLE - continue bipap qhs DVT ppx: SCDs This patient was seen by Nico Tamayo PA-C under the supervision of Dr. High <Alexandro High - Last Filed: 10/27/19 13:35> Vitals/I&O's: Vital Signs Temp Pulse Resp BP Pulse Ox 98.3 F 76 16 101/52 L 94 10/27/19 12:45 10/27/19 12:45 10/27/19 12:45 10/27/19 12:45 10/27/19 12:45 Oxygen Flow Rate (L/min) 4 Oxygen Delivery Method Room Air Weight: 233 lb 7.512 oz Body Mass Index (BMI) 38.8 Intake and Output for Last 24 Hours 10/25/19 10/26/19 10/27/19 23:59 23:59 23:59 Intake Total 2126.2126. Balance 2126. Microbiology Past 72 Hours 10/26/19 21:49 Mucosa - Nasopharyngeal Coronavirus COVID-19 PCR - Final 10/26/19 19:00 Stool Stool Occult Blood (ISAI) - Final Occult Blood Positive Laboratory Results 10/26/19 11:59: Urine Color Yellow, Urine Clarity Clear, Urine pH 5.0, Ur Specific [place] 1.025, Urine Protein 30 H, Urine Glucose (UA) Normal, Urine Ketones 5 H, Urine Occult Blood 10 H, Urine Nitrite Negative, Urine Bilirubin 3 H, Urine Urobilinogen Normal, Ur Leukocyte Esterase 100 H, Urine RBC 5-10 SEEN, Urine WBC 10-25 SEEN, Ur Squamous Epith Cells 0-5 SEEN, Urine Bacteria 0 SEEN, Urine Mucus 0 SEEN, Urine Yeast RARE 10/26/19 19:00: WBC 10.8, RBC 4.20, Hgb 12.4, Hct 37.3, MCV 88.8, MCH 29.5, MCHC 33.2, RDW Std Deviation 43.0, RDW Coeff of Ivet 13.4, Plt Count 269, MPV 9.2, Neut % (Auto) Not Reportable, Absolute Neuts (auto) 6.4, Absolute Lymphs (auto) 2.80, Total Counted 100, Neutrophils % (Manual) 52, Band Neutrophils % 7 H, Lymphocytes % (Manual) 26, Monocytes % (Manual) 5, Eosinophils % (Manual) 10 H, Diff Path Review Reviewed, Platelet Estimate ADEQUATE, RBC Morphology NORM C+C 10/26/19 19:00: Sodium 139, Potassium 3.7, Chloride 108 H, Carbon Dioxide 20.0 L , Anion Gap 11, BUN 29 H, Creatinine 1.54 H, Estim Creat Clear Calc 32.33, Est GFR (MDRD) Af Amer 43 L, Est GFR (MDRD) Non-Af 36 L, BUN/Creatinine Ratio 18.8, Glucose 223 H, Calcium 8.2 L, Total Bilirubin 0.70, AST 8 L, ALT 13, Alkaline Phosphatase 100, Troponin I < 0.015, Total Protein 6.6, Albumin 3.1 L, Globulin 3.5, Albumin/Globulin Ratio 0.9 10/26/19 19:00: Blood Type A POSITIVE, Antibody Screen NEGATIVE 10/26/19 21:49: COVID-19 (SHIRA) Cancelled 10/27/19 01:28: POC Glucose 148 H 10/27/19 01:40: Hgb 11.5 L, Hct 35.8 L 10/27/19 04:58: POC Glucose 166 H 10/27/19 05:30: WBC 11.8 H, RBC 3.97 L, Hgb 11.6 L, Hct 36.1 L, MCV 90.9, MCH 29.2, MCHC 32.1, RDW Std Deviation 43.3, RDW Coeff of Ivet 13.1, Plt Count 247, MPV 9.4, Immature Gran % (Auto) 4.000 H, Neut % (Auto) 49.1, Lymph % (Auto) 22.1, Delta % (Auto) 6.1, Eos % (Auto) 18.2 H, Baso % (Auto) 0.5, Absolute Neuts (auto) 5.8, Absolute Lymphs (auto) 2.61, Nucleated RBC % 0.2, Differential Comment SCANNED, Diff Path Review Reviewed 10/27/19 05:30: Sodium 139, Potassium 3.4 L, Chloride 110 H, Carbon Dioxide 20.0 L, Anion Gap 9, BUN 30 H, Creatinine 1.49 H, Estim Creat Clear Calc 33.42, Est GFR (MDRD) Af Amer 45 L, Est GFR (MDRD) Non-Af 37 L, BUN/Creatinine Ratio 20.1 H , Glucose 177 H, Calcium 7.4 L, Total Bilirubin 0.80, AST 5 L, ALT 11 L, Alkaline Phosphatase 104, Total Protein 6.0 L, Albumin 2.7 L, Globulin 3.3, Albumin/Globulin Ratio 0.8 L 10/27/19 05:30: Hemoglobin A1c 8.4 H 10/27/19 10:37: POC Glucose 185 H Current Medications Acetaminophen (Tylenol) 650 mg PO Q6H PRN PRN PRN Reason: Pain Score 1-10/Temp > 100.7 F Albuterol Sulfate (Ventolin Aerosols) 2.5 mg INHALATION Q2H PRN PRN PRN Reason: Dyspnea, wheezing Amlodipine Besylate (Norvasc) 5 mg PO DAILY [facility] Carvedilol (Coreg) 12.5 mg PO BID [facility] Last Admin: 10/27/19 02:36 Dose: 12.5 mg Documented by: Dextrose (D50w Syringe) 0 gm IV X1 PRN; Protocol PRN Reason: Hypoglycemia Fluoxetine HCl (Prozac) 40 mg PO DAILY [facility] Last Admin: 10/27/19 12:50 Dose: Not Given Documented by: Furosemide (Lasix) 20 mg PO 1800 [facility] Furosemide (Lasix) 40 mg PO DAILY [facility] Gabapentin (Neurontin) 600 mg PO QHS [facility] Last Admin: 10/27/19 02:37 Dose: 600 mg Documented by: Glucagon () 1 mg IM .X1 PRN PRN Reason: Hypoglycemia Hydralazine HCl (Apresoline Iv) 10 mg IV Q4H PRN PRN PRN Reason: SBP > 160 Sodium Chloride () 1,000 mls @ 125 mls/hr IV .Q8H [facility] Last Admin: 10/27/19 09:32 Dose: 125 mls/hr Documented by: Pantoprazole Sodium 40 mg/ (Sodium Chloride) 110 mls @ 330 mls/hr IV Q12 [facility] Last Infusion: 10/27/19 10:40 Dose: Infused Documented by: Insulin Glargine (Lantus ([facility])) 20 units SC BID [facility] Last Admin: 10/27/19 05:04 Dose: Not Given Documented by: Insulin Human Lispro (Humalog Kwikpen ([facility])) 0 unit SC Q6 [facility]; Protocol Last Admin: 10/27/19 11:09 Dose: Not Given Documented by: Loratadine (Claritin) 5 mg PO DAILY PRN PRN PRN Reason: ALLERGIES Melatonin (Melatonin) 3 mg PO QHS PRN PRN PRN Reason: INSOMNIA Morphine Sulfate () 4 mg IV Q3H PRN PRN PRN Reason: Pain Score 6-10/10 Nitroglycerin (Nitrostat) 0.4 mg SUBLINGUAL Q5M PRN PRN Reason: CARDIAC/CHEST PAIN Ondansetron HCl (Zofran) 4 mg IV Q8H PRN PRN PRN Reason: NAUSEA/VOMITING Last Admin: 10/27/19 02:32 Dose: 4 mg Documented by: Oxycodone HCl (Oxyir) 5 mg PO Q4H PRN PRN PRN Reason: Pain Score 4-5/10 Last Admin: 10/27/19 06:48 Dose: 5 mg Documented by: Potassium Chloride (K-Dur) 40 meq PO X1 ONE Stop: 10/27/19 13:25 Prochlorperazine Edisylate (Compazine Iv) 5 mg IV Q4H PRN PRN PRN Reason: Breakthrough Nausea/Vomiting Sacubitril/Valsartan (Entresto 49 Mg-51 Mg Tablet) 1 each PO BID [facility] Last Admin: 10/27/19 12:47 Dose: 1 each Documented by: Sodium Chloride () 10 - 40 ml IV UD PRN PRN Reason: SALINE FLUSH Last Admin: 10/27/19 02:31 Dose: 20 ml Documented by: STROKE Vital Signs/Narrative: Vital Signs Temp Pulse Resp BP Pulse Ox 10/27/19 12:45 98.3 F 76 16 101/52 L 94 10/27/19 12:20 98.3 F 76 16 95/53 L 99 10/27/19 12:15 76 16 87/53 L 98 10/27/19 12:10 76 16 86/65 L 97 10/27/19 12:06 98.3 F 71 16 83/54 L 99 Assessment/Plan This patient was seen in conjunction with Nico SAMSON. I have independently interviewed and examined the patient and reviewed pertinent history, examination findings, laboratory and plan of management. I have reviewed the note and agree with the documented findings with the few additional points. Please see discharge summary for complete physical exam finding and summary of hospital stay I have discussed my assessment with Nico SAMSON and orders have been reviewed.
[2019-10-27 11:53] LABS: Pathologist Review Reviewed
[2019-10-27 11:55] LABS: Pathologist Review Reviewed
--- NOTE | 2019-10-27 12:05 | EGD_PTH ---
PATIENT: THIAGO PIERRE [facility] U#:[id number] AGE/SX: 64/F ROOM: [facility] RE10/26/[address]: Dr. Alexandro High MD : 1955 BED: 1 DIS: 10/27/2019 SPEC #: [id number] RECD: 10/27/19 13:30 STATUS: DOMITILA REQ #: [id number] RAMON: 10/27/19 12:[address]: Fallon Sánchez DEPT: SURGICAL PATHOLOGY RECD BY: Jerry Hargrove ENTERED: 10/28/19 09:23 SP TYPE: EGD BIOPSY OT DR: MD Dr. Alexandro Galdamez MD Jodi Swihart, [employer]-C Tissues: Gastric mucous membrane Procedures: Surgery Specimen Level IV HEADER OPERATION: EGD ([facility] PRE-OP DIAGNOSIS: GI bleed TISSUE SUBMITTED: Antrum biopsy for histo and H. pylori MICROSCOPIC DIAGNOSIS Gastric antrum, biopsy: Moderate chronic gastritis. AM:suhas 10/29/19 COMMENT The results of immunohistochemistry for Helicobacter pylori will be reported separately ([id number]). MICROSCOPIC DESCRIPTION Slides are reviewed. GROSS DESCRIPTION Received in fixative is one container labeled with the patient's name and designated antrum biopsy. The specimen consists of one irregular fragment of light chappell soft tissue that measures 0.4 x 0.3 x 0.1 cm. The specimen is totally submitted in one cassette. / SJ:suhas 10/28/19 TC:3 CPT: 26156
--- NOTE | 2019-10-27 12:05 | IMM_PTH ---
PATIENT: THIAGO PIERRE LOC: [facility] U#:[id number] AGE/SX: 64/F ROOM: [facility] RE10/26/[address]: Dr. Alexandro High MD : 1955 BED: 1 DIS: 10/27/2019 SPEC #: [id number] RECD: 10/28/19 11:17 STATUS: DOMITILA REQ #: [id number] RAMON: 10/27/19 12:[address]: Fallon Sánchez DEPT: IMMUNOHISTOCHEMISTRY RECD BY: Kimber Flynn ENTERED: 10/28/19 11:17 SP TYPE: IMMUNO OTHR DR: MD Dr. Alexandro Galdamez MD Jodi Swihart, [employer] Tissues: Stomach, NOS Procedures: H Pylori (initial) PHYSICIAN & INSTITUTION [place] [address] SPECIMEN INFORMATION: Tissue Source: Antrum biopsy Clinical Info: GI bleed Specimen Number: [id number] CPT code: 75274 METHODOLOGY: Deparaffinized sections of prefer/formalin-fixed tissue or PAP/DQ stained slides are incubated with monoclonal/polyclonal antibodies/oligonucleotide probes. Localization is made via biotin free immunoperoxidase method. Appropriate controls are performed and reacted as expected. Results on target cell population are indicated in the following table: RESULTS: ANTIBODY / CLONE RESULT H Pylori (polyclonal) negative These tests were developed and their performance characteristics determined by [facility]. They may not have been cleared or approved by the U.S. Food and Drug Administration. The FDA has determined that such clearance or approval is not necessary. INTERPRETATION: Antrum, biopsy: Negative for Helicobacter pylori organisms. AM:suhas 10/29/19
--- NOTE | 2019-10-27 12:08 | OP.CCLET_ITS ---
10/27/2019 Renée Parada Re : Upper GI endoscopy procedure for Sandra Quiroga Tal This procedure was performed on Sunday, October 27, 2019. My impressions and recommendations are as follows: Impressions : - Z-line regular, 40 cm from the incisors. - Erythematous mucosa in the antrum. Biopsied. - Normal examined duodenum. Recommendations : - Await pathology results. - [facility] patient [facility]. - Resume regular diet. - Continue present medications. - Use Protonix (pantoprazole) 40 mg PO daily. My findings are described in the full procedure note, which is enclosed. If I can be of further assistance, please feel free to contact me at Doctor phone number(s): , Work: . Sincerely, MD Fallon Estes MD 10/27/2019 12:07:50 PM This report has been signed electronically.
--- NOTE | 2019-10-27 12:08 | OP.EGD_ITS ---
Patient Name: Sandra Cruz Procedure Date: 10/27/2019 11:29 AM Date of : 1955 Age: 64 Procedure: Upper GI endoscopy Indications: Melena Providers: Fallon Sánchez MD Referring MD: Taty Velasquez Medicines: Monitored Anesthesia Care Patient Profile: This is a 64 year old female. Complications: No immediate complications. Procedure: Pre-Anesthesia Assessment: - Prior to the procedure, a History and Physical was performed, and patient medications and allergies were reviewed. The patient's tolerance of previous anesthesia was also reviewed. The risks and benefits of the procedure and the sedation options and risks were discussed with the patient. All questions were answered, and informed consent was obtained. Prior Anticoagulants: The patient has taken no previous anticoagulant or antiplatelet agents. ASA Grade Assessment: Per anesthesia. After reviewing the risks and benefits, the patient was deemed in satisfactory condition to undergo the procedure. After obtaining informed consent, the endoscope was passed under direct vision. Throughout the procedure, the patient's blood pressure, pulse, and oxygen saturations were monitored continuously. The gastroscope was introduced through the mouth, and advanced to the second part of duodenum. The upper GI endoscopy was accomplished without difficulty. The patient tolerated the procedure well. Scope In: 11:52:52 AM Scope Out: 11:59:32 AM Total Procedure Duration Time 0 hours 6 minutes 40 seconds Findings: The Z-line was regular and was found 40 cm from the incisors. Striped moderately erythematous mucosa without bleeding was found in the gastric antrum. Biopsies were taken with a cold forceps for Helicobacter pylori cultures. Biopsies were taken with a cold forceps for histology. The examined duodenum was normal. The cardia and gastric fundus were normal on retroflexion. Impression: - Z-line regular, 40 cm from the incisors. - Erythematous mucosa in the antrum. Biopsied. - Normal examined duodenum. Recommendation: - Await pathology results. - Return patient to [facility] care. - Resume regular diet. - Continue present medications. - Use Protonix (pantoprazole) 40 mg PO daily. Procedure Code(s): --- Professional --- 85728, Esophagogastroduodenoscopy, flexible, transoral; with biopsy, single or multiple Diagnosis Code(s): --- Professional --- K31.89, Other diseases of stomach and duodenum K92.1, Melena (includes Hematochezia) CPT copyright 2017 [employer]. All rights reserved. The codes documented in this report are preliminary and upon account general manager review may be revised to meet current compliance requirements. MD Fallon Estes MD 10/27/2019 12:07:50 PM This report has been signed electronically. Number of Addenda: 0 Note Initiated On: 10/27/2019 11:29 AM
--- NOTE | 2019-10-27 12:13 | DCINST_ITS ---
- Discharge Diagnoses Current Active Problems: Current Active and Chronic Problems Acute upper GI bleeding (Acute) Anxiety and depression (Chronic) Former tobacco use (Chronic) You will use the following diet at home:: Calorie/Carbohydrate Controlled (specify 1200, 1400, etc) - 1800 sobeida / day, Cardiac Your food should be the consistency of: Regular Your liquids should be the consistency of: Regular/Thin Discharge Activity: Return to Normal Activity Additional Instructions: Hold baby aspirin for 3 days, then resume. You will need to talk to your family medicine doctor about having a CBC (lab) in 1 week. Allergies/Adverse Reactions: Allergies red dye Allergy (Verified 10/26/19 18:26) Hives Fzhoyxd-Ech-Mfh Reductase Inhibitor Adverse Reaction (Severe, Verified 10/26/19 18:26) Myalgias Medications to take at Discharge Gabapentin [Neurontin] 600 mg PO QHS 01/12/16 Colestipol Tablet [Colestid Tablet] 1 gm PO BID 06/19/16 Aspirin E.C. [Ecotrin] 81 mg PO DAILY@0800 01/26/17 Carvedilol [Coreg (Beta Matthew)] 12.5 mg PO BID 01/26/17 Cholecalciferol (Vitamin D3) [Vitamin D3] 2,000 unit PO PAYNE 01/26/17 Magnesium Chloride [Slow-Mag] 71.5 mg PO DAILY 01/26/17 Sacubitril/Valsartan 49-51 mg [Entresto 49 mg-51 mg Tablet] 1 tab PO BID 01/26/17 liraglutide 0.6 mg/0.1 mL (18 mg/3 mL) subcutaneous pen injector 1.8 mg SC DAILY 10/01/17 DiphenhydrAMINE [Benadryl] 50 mg PO QHS PRN PRN 03/20/18 cetirizine 10 mg tablet 5 mg PO DAILY PRN 11/01/18 fluoxetine 40 mg capsule 40 mg PO DAILY 11/01/18 furosemide 20 mg tablet 20 mg PO .COMPLEX 11/01/18 metformin 1,000 mg tablet 1,000 mg PO BID tab 11/01/18 amlodipine 5 mg tablet 5 mg PO DAILY #30 tab 06/17/19 Insulin Aspart [Novolog Flexpen] 2 units SUBCUT .COMPLEX 10/26/19 Insulin Detemir [Levemir FlexPen] 40 units SUBCUT BID 10/27/19 Ondansetron HCl [Zofran] 4 mg PO Q6H PRN PRN #16 tab 10/27/19 Pantoprazole Sodium [Protonix] 40 mg PO DAILY #30 tab 10/27/19 The following prescriptions were given: Pantoprazole Sodium [Protonix] 40 mg PO DAILY #30 tab Transmission Status: Pending to [facility] Ondansetron HCl [Zofran] 4 mg PO Q6H PRN PRN #16 tab PRN Reason: Nausea Transmission Status: Pending to [facility] Primary Care Physician: Renée Parada NP-C [Primary Care Provider] - Please follow up with your Primary Care Physician in: 1-2 weeks Test Results: Test results from this visit will be discussed in further detail at your follow- up appointment, if applicable. Please Follow Up With: Fallon Sánchez MD - Biopsy results. When: 2 weeks Proposed Discharge Date: 10/27/19
--- NOTE | 2019-10-27 12:15 | DS.PCM_ITS ---
<Nico Tamayo - Last Filed: 10/27/19 12:15> Discharge Date and Diagnosis - Problem List Patient Problems: Active and Suspected Problems (Last Reviewed 05/30/19 @ 14:38 by Kaye Pierson) Acute upper GI bleeding (Acute) Date of Admission: 10/26/19 Date of Discharge: 10/27/19 - Primary Discharge Diagnosis Active and Suspected Problems (Last Reviewed 05/30/19 @ 14:38 by Kaye Pierson) Acute upper GI bleeding (Acute) 2/2 gastroenteritis Gastritis CKDIII Hypokalemia DMt2 - Secondary Discharge Diagnosis Chronic Problems (Last Reviewed 05/30/19 @ 14:38 by Kaye Pierson) Anxiety and depression (Chronic) Former tobacco use (Chronic) Carotid artery disease (Chronic) Pure hypercholesterolemia (Chronic) Essential hypertension (Chronic) 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 Boggs: mild nonobstructive CAD Cardiac defibrillator in situ (Chronic) Dr. Garcia's office interrogates @ [facility]: Implanted 03/16/2016 mala Garcia, [facility] Nonrheumatic mitral (valve) insufficiency (Chronic) moderate (2+) per echo 01/13/2016 Dilated cardiomyopathy (Chronic) Ejection fraction 20% per echo 01/13/2016 @ [facility] Chronic systolic (congestive) heart failure (Chronic) NICOLLE (obstructive sleep apnea) (Chronic) Diabetes mellitus, type II (Chronic) Obesity (BMI 30-39.9) (Chronic) Abnormal electrocardiogram (Chronic) Hospital Course and Treatment Imaging Results: CT/Abdomen/Pelvis without Cont IMPRESSION: Diffuse fluid density is seen throughout GI tract as far as the sigmoid, a finding which suggests nonspecific colitis/diarrheal disorders. Otherwise no definite acute or significant abnormality seen. EGD report: Impression: - Z-line regular, 40 cm from the incisors. - Erythematous mucosa in the antrum. Biopsied. - Normal examined duodenum. Recommendation: - Await pathology results. - [facility] patient [facility]. - Resume regular diet. - Continue present medications. - Use Protonix (pantoprazole) 40 mg PO daily. Consults: Gen Surgery - [place] Operations: None Procedures: EGD Summary of Care Provided: Hospital Course: The patient is a 64 year old F with pmhx of nonobstructive CAD with cardiomyopathy, AICD in place, hx diastolic CHF, DMt2, who presented to the ED with diarrhea with black stool. The patient had onset of nausea vomiting, and diarrhea about 4 days prior with mild diffuse abdominal pain. Stool occult blood was positive however she was not anemic. She had a CT rerpoted as consistent with nonspecific colitis or diarrheal disorder. She was admitted to the PCU and general surgery was consulted. She was placed on IV protonix BID. Aspirin was held. She had a mild decrease then increase in Hgb. She underwent an EGD which showed some gastritis. Gen surgery took biopsies, advanced her to full diabetic diet and recommended once daily protonix. She was felt to have some GI bleeding 2/2 gastroenteritis given the acuity of her symptoms and presence of nausea vomiting and diarrhea. She will need to resume aspirin as she has significant heart disease and this presentation for GI bleed is due to acute illness. She was tested for covid here which was negative. She was discharged home in stable condition. I recommended she hold her aspirin for 3 days while the acute illness passes. She was given zofran for nausea. She will need a CBC in 1 week, follow up with PCP in 1-2 weeks, and follow up with surgery in 2 weeks. This patient was seen by Nico Tamayo PA-C under the supervision of Dr. High. [] Patient Problems: Active and Suspected Problems (Last Reviewed 05/30/19 @ 14:38 by Kaye Pierson) Acute upper GI bleeding (Acute) - Physical Exam Vitals/I&O's: Vital Signs Temp Pulse Resp BP Pulse Ox 98.3 F 76 16 86/65 L 97 10/27/19 12:06 10/27/19 12:10 10/27/19 12:10 10/27/19 12:10 10/27/19 12:10 Oxygen Flow Rate (L/min) 4 Oxygen Delivery Method Room Air Weight: 233 lb 7.512 oz Body Mass Index (BMI) 38.8 Intake and Output for Last 24 Hours 10/25/19 10/26/19 10/27/19 23:59 23:59 23:59 Intake Total 35 / 35 2126. / 2126. Balance 35 / 35 / General: Alert, Oriented x3, Cooperative HEENT: Atraumatic, PERRLA, EOMI, Normocephalic Neck: Supple, No JVD, Negative Carotid Bruits Lungs: Clear to auscultation, Normal air movement Cardiovascular: Regular rate, No murmurs Abdomen: Bowel Sounds Present, Soft, Tender - diffuse tenderness to light palp no guarding or rigidity Extremities: No edema, Capillary Refill Less than 3 Seconds Skin: No rashes, No breakdown Musculoskeletal: No Tenderness to Palpation of Joints or Extremities Neurological: Cranial nerves II-XII grossly intact Psych/Mental Status: Normal Affect, Appropriate Microbiology Past 72 Hours 10/26/19 21:49 Mucosa - Nasopharyngeal Coronavirus COVID-19 PCR - Final 10/26/19 19:00 Stool Stool Occult Blood (ISAI) - Final Occult Blood Positive Laboratory Results 10/26/19 11:59: Urine Color Yellow, Urine Clarity Clear, Urine pH 5.0, Ur Specific Covert 1.025, Urine Protein 30 H, Urine Glucose (UA) Normal, Urine Ketones 5 H, Urine Occult Blood 10 H, Urine Nitrite Negative, Urine Bilirubin 3 H, Urine Urobilinogen Normal, Ur Leukocyte Esterase 100 H, Urine RBC 5-10 SEEN, Urine WBC 10-25 SEEN, Ur Squamous Epith Cells 0-5 SEEN, Urine Bacteria 0 SEEN, Urine Mucus 0 SEEN, Urine Yeast RARE 10/26/19 19:00: WBC 10.8, RBC 4.20, Hgb 12.4, Hct 37.3, MCV 88.8, MCH 29.5, MCHC 33.2, RDW Std Deviation 43.0, RDW Coeff of Ivet 13.4, Plt Count 269, MPV 9.2, Neut % (Auto) Not Reportable, Absolute Neuts (auto) 6.4, Absolute Lymphs (auto) 2.80, Total Counted 100, Neutrophils % (Manual) 52, Band Neutrophils % 7 H, Lymphocytes % (Manual) 26, Monocytes % (Manual) 5, Eosinophils % (Manual) 10 H, Diff Path Review Reviewed, Platelet Estimate ADEQUATE, RBC Morphology NORM C+C 10/26/19 19:00: Sodium 139, Potassium 3.7, Chloride 108 H, Carbon Dioxide 20.0 L , Anion Gap 11, BUN 29 H, Creatinine 1.54 H, Estim Creat Clear Calc 32.33, Est GFR (MDRD) Af Amer 43 L, Est GFR (MDRD) Non-Af 36 L, BUN/Creatinine Ratio 18.8, Glucose 223 H, Calcium 8.2 L, Total Bilirubin 0.70, AST 8 L, ALT 13, Alkaline Phosphatase 100, Troponin I < 0.015, Total Protein 6.6, Albumin 3.1 L, Globulin 3.5, Albumin/Globulin Ratio 0.9 10/26/19 19:00: Blood Type A POSITIVE, Antibody Screen NEGATIVE 10/26/19 21:49: COVID-19 (SHIRA) Cancelled 10/27/19 01:28: POC Glucose 148 H 10/27/19 01:40: Hgb 11.5 L, Hct 35.8 L 10/27/19 04:58: POC Glucose 166 H 10/27/19 05:30: WBC 11.8 H, RBC 3.97 L, Hgb 11.6 L, Hct 36.1 L, MCV 90.9, MCH 29.2, MCHC 32.1, RDW Std Deviation 43.3, RDW Coeff of Ivet 13.1, Plt Count 247, MPV 9.4, Immature Gran % (Auto) 4.000 H, Neut % (Auto) 49.1, Lymph % (Auto) 22.1, [place] % (Auto) 6.1, Eos % (Auto) 18.2 H, Baso % (Auto) 0.5, Absolute Neuts (auto) 5.8, Absolute Lymphs (auto) 2.61, Nucleated RBC % 0.2, Differential Comment SCANNED, Diff Path Review Reviewed 10/27/19 05:30: Sodium 139, Potassium 3.4 L, Chloride 110 H, Carbon Dioxide 20.0 L, Anion Gap 9, BUN 30 H, Creatinine 1.49 H, Estim Creat Clear Calc 33.42, Est GFR (MDRD) Af Amer 45 L, Est GFR (MDRD) Non-Af 37 L, BUN/Creatinine Ratio 20.1 H , Glucose 177 H, Calcium 7.4 L, Total Bilirubin 0.80, AST 5 L, ALT 11 L, Alkaline Phosphatase 104, Total Protein 6.0 L, Albumin 2.7 L, Globulin 3.3, Albumin/Globulin Ratio 0.8 L 10/27/19 05:30: Hemoglobin A1c 8.4 H 10/27/19 10:37: POC Glucose 185 H Current Medications Acetaminophen (Tylenol) 650 mg PO Q6H PRN PRN PRN Reason: Pain Score 1-10/Temp > 100.7 F Albuterol Sulfate (Ventolin Aerosols) 2.5 mg INHALATION Q2H PRN PRN PRN Reason: Dyspnea, wheezing Amlodipine Besylate (Norvasc) 5 mg PO DAILY [facility] Carvedilol (Coreg) 12.5 mg PO BID [facility] Last Admin: 10/27/19 02:36 Dose: 12.5 mg Documented by: Dextrose (D50w Syringe) 0 gm IV X1 PRN; Protocol PRN Reason: Hypoglycemia Fluoxetine HCl (Prozac) 40 mg PO DAILY [facility] Furosemide (Lasix) 20 mg PO 1800 [facility] Furosemide (Lasix) 40 mg PO DAILY [facility] Gabapentin (Neurontin) 600 mg PO QHS [facility] Last Admin: 10/27/19 02:37 Dose: 600 mg Documented by: Glucagon () 1 mg IM .X1 PRN PRN Reason: Hypoglycemia Hydralazine HCl (Apresoline Iv) 10 mg IV Q4H PRN PRN PRN Reason: SBP > 160 Sodium Chloride () 1,000 mls @ 125 mls/hr IV .Q8H [facility] Last Admin: 10/27/19 09:32 Dose: 125 mls/hr Documented by: Pantoprazole Sodium 40 mg/ (Sodium Chloride) 110 mls @ 330 mls/hr IV Q12 [facility] Last Infusion: 10/27/19 10:40 Dose: Infused Documented by: Insulin Glargine (Lantus (Bkc)) 20 units SC BID [facility] Last Admin: 10/27/19 05:04 Dose: Not Given Documented by: Insulin Human Lispro (Humalog Kwikpen (Bkc)) 0 unit SC Q6 [facility]; Protocol Last Admin: 10/27/19 11:09 Dose: Not Given Documented by: Loratadine (Claritin) 5 mg PO DAILY PRN PRN PRN Reason: ALLERGIES Melatonin (Melatonin) 3 mg PO QHS PRN PRN PRN Reason: INSOMNIA Morphine Sulfate () 4 mg IV Q3H PRN PRN PRN Reason: Pain Score 6-10/10 Nitroglycerin (Nitrostat) 0.4 mg SUBLINGUAL Q5M PRN PRN Reason: CARDIAC/CHEST PAIN Ondansetron HCl (Zofran) 4 mg IV Q8H PRN PRN PRN Reason: NAUSEA/VOMITING Last Admin: 10/27/19 02:32 Dose: 4 mg Documented by: Oxycodone HCl (Oxyir) 5 mg PO Q4H PRN PRN PRN Reason: Pain Score 4-5/10 Last Admin: 10/27/19 06:48 Dose: 5 mg Documented by: Prochlorperazine Edisylate (Compazine Iv) 5 mg IV Q4H PRN PRN PRN Reason: Breakthrough Nausea/Vomiting Sacubitril/Valsartan (Entresto 49 Mg-51 Mg Tablet) 1 each PO BID [facility] Last Admin: 10/27/19 02:36 Dose: 1 each Documented by: Sodium Chloride () 10 - 40 ml IV UD PRN PRN Reason: SALINE FLUSH Last Admin: 10/27/19 02:31 Dose: 20 ml Documented by: Discharge Diet: Low fat/ Low Cholesterol, 1800 Calorie Control Diet, 2000 mg Sodium Diet Discharge Activity: Return to Normal Activity Home Medications: Medications to take at Discharge Gabapentin [Neurontin] 600 mg PO QHS 01/12/16 Colestipol Tablet [Colestid Tablet] 1 gm PO BID 06/19/16 Aspirin E.C. [Ecotrin] 81 mg PO DAILY@0800 01/26/17 Carvedilol [Coreg (Beta Matthew)] 12.5 mg PO BID 01/26/17 Cholecalciferol (Vitamin D3) [Vitamin D3] 2,000 unit PO PAYNE 01/26/17 Magnesium Chloride [Slow-Mag] 71.5 mg PO DAILY 01/26/17 Sacubitril/Valsartan 49-51 mg [Entresto 49 mg-51 mg Tablet] 1 tab PO BID 01/26/17 liraglutide 0.6 mg/0.1 mL (18 mg/3 mL) subcutaneous pen injector 1.8 mg SC DAILY 10/01/17 DiphenhydrAMINE [Benadryl] 50 mg PO QHS PRN PRN 03/20/18 cetirizine 10 mg tablet 5 mg PO DAILY PRN 11/01/18 fluoxetine 40 mg capsule 40 mg PO DAILY 11/01/18 furosemide 20 mg tablet 20 mg PO .COMPLEX 11/01/18 metformin 1,000 mg tablet 1,000 mg PO BID tab 11/01/18 amlodipine 5 mg tablet 5 mg PO DAILY #30 tab 01/07/20 Insulin Aspart [Novolog Flexpen] 2 units SUBCUT .COMPLEX 10/26/19 Insulin Detemir [Levemir FlexPen] 40 units SUBCUT BID 10/27/19 Ondansetron HCl [Zofran] 4 mg PO Q6H PRN PRN #16 tab 10/27/19 Pantoprazole Sodium [Protonix] 40 mg PO DAILY #30 tab 10/27/19 Following Prescrptions Were Given to Patient: Pantoprazole Sodium [Protonix] 40 mg PO DAILY #30 tab Transmission Status: Received by [id number] Ondansetron HCl [Zofran] 4 mg PO Q6H PRN PRN #16 tab PRN Reason: Nausea Transmission Status: Received by [id number] Primary Care Physician: Renée Parada NP-C [Primary Care Provider] - Please follow up with your Primary Care Physician in: 1-2 weeks Please Follow Up With: Fallon Sánchez MD - Biopsy results. When: 2 weeks Disposition: Home Minutes spent on discharge:: 35 Patient Condition:: Stable Medical Necessity - Tobacco Use Smoking Status: Former smoker Tobacco Use: Cigarettes Meaningful Use Info Meaningful Use Diagnoses (Choose all that apply): None applicable <Alexandro High - Last Filed: 10/27/19 13:34> Discharge Date and Diagnosis - Primary Discharge Diagnosis Active and Suspected Problems (Last Reviewed 05/30/19 @ 14:38 by Kaye Pierson) Acute upper GI bleeding (Acute) - Secondary Discharge Diagnosis Chronic Problems (Last Reviewed 05/30/19 @ 14:38 by Kaye Pierson) Anxiety and depression (Chronic) Former tobacco use (Chronic) Carotid artery disease (Chronic) Pure hypercholesterolemia (Chronic) Essential hypertension (Chronic) 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 Boggs: mild nonobstructive CAD Cardiac defibrillator in situ (Chronic) Dr. Garcia's office interrogates @ [facility]: Implanted 03/16/2016 mala Garcia, [facility] Nonrheumatic mitral (valve) insufficiency (Chronic) moderate (2+) per echo 01/13/2016 Dilated cardiomyopathy (Chronic) Ejection fraction 20% per echo 01/13/2016 @ [facility] Chronic systolic (congestive) heart failure (Chronic) NICOLLE (obstructive sleep apnea) (Chronic) Diabetes mellitus, type II (Chronic) Obesity (BMI 30-39.9) (Chronic) Abnormal electrocardiogram (Chronic) Hospital Course and Treatment Summary of Care Provided: This patient was seen in conjunction with Nico SAMSON. I have independently interviewed and examined the patient and reviewed pertinent history, examination findings, laboratory and plan of management. I have reviewed the note and agree with the documented findings with the few additional points. In brief, patient is admitted for melena for 4 days prior to admission with mild diffuse abdominal pain. CT abdomen shows nonspecific colitis or diarrheal disorder. Patient on PPI Protonix twice daily. Patient had EGD today which shows erythematous mucosa in the antrum suggestive of gastritis. Normal duodenum. Test for COVID-19 was negative. Advised resumption of diet and discharge by surgeon. She also had manometric test in May 2019 which reported as decreased relaxation of the lower esophageal sphincter and high amplitude big waves but within normal limit and is on amlodipine for that Discharge medication reconciliation done. Discharge follow-up instructions completed. Discharge process discussed with the patient and all questions were answered to patient's satisfaction. Total time spent, exact 35 minutes on discharge meds reconciliation, examination, coordination of care with nurses and ancillary staff, review of imaging and blood test and discussion with the patient on follow-up ninfa huerta I have discussed my assessment with Nico SAMSON and orders have been reviewed. [] Objective: Seen and examined. Patient had 3 to 4 days of black stool, loose in consistency, diarrhea prior to admission. Denies abdominal pain. Had colonoscopy this year by surgeon Dr. Huy camacho which did not show gross abnormality as per the patient. Patient had EGD today. H&H is stable. Blood pressure 101/52. - Physical Exam Vitals/I&O's: Vital Signs Temp Pulse Resp BP Pulse Ox 98.3 F 76 16 101/52 L 94 10/27/19 12:45 10/27/19 12:45 10/27/19 12:45 10/27/19 12:45 10/27/19 12:45 Oxygen Flow Rate (L/min) 4 Oxygen Delivery Method Room Air Weight: 233 lb 7.512 oz Body Mass Index (BMI) 38.8 Intake and Output for Last 24 Hours 10/25/19 10/26/1920 23:59 23:59 23:59 Intake Total 35 Balance 35 General: Alert, Oriented x3, Cooperative HEENT: Atraumatic, PERRLA, EOMI, Normocephalic Neck: Supple, No JVD, Negative Carotid Bruits Lungs: Clear to auscultation, Normal air movement, No rhonchi, No wheeze, No rales Cardiovascular: Regular rate, Regular Rhythm, Normal S1, Normal S2, No murmurs Abdomen: Bowel Sounds Present, Soft, Non Tender Extremities: No edema, Capillary Refill Less than 3 Seconds Skin: No rashes, No breakdown Musculoskeletal: No Tenderness to Palpation of Joints or Extremities, Arthritic Changes Neurological: Cranial nerves II-XII grossly intact, Deep Tendon Reflexes 2+/4 and Symmetrical, Neuro grossly intact Psych/Mental Status: Normal Affect, Appropriate Microbiology Past 72 Hours 10/26/19 21:49 Mucosa - Nasopharyngeal Coronavirus COVID-19 PCR - Final 10/26/19 19:00 Stool Stool Occult Blood (ISAI) - Final Occult Blood Positive Laboratory Results 10/26/19 11:59: Urine Color Yellow, Urine Clarity Clear, Urine pH 5.0, Ur Specific Covert 1.025, Urine Protein 30 H, Urine Glucose (UA) Normal, Urine Ketones 5 H, Urine Occult Blood 10 H, Urine Nitrite Negative, Urine Bilirubin 3 H, Urine Urobilinogen Normal, Ur Leukocyte Esterase 100 H, Urine RBC 5-10 SEEN, Urine WBC 10-25 SEEN, Ur Squamous Epith Cells 0-5 SEEN, Urine Bacteria 0 SEEN, Urine Mucus 0 SEEN, Urine Yeast RARE 10/26/19 19:00: WBC 10.8, RBC 4.20, Hgb 12.4, Hct 37.3, MCV 88.8, MCH 29.5, MCHC 33.2, RDW Std Deviation 43.0, RDW Coeff of Ivet 13.4, Plt Count 269, MPV 9.2, Neut % (Auto) Not Reportable, Absolute Neuts (auto) 6.4, Absolute Lymphs (auto) 2.80, Total Counted 100, Neutrophils % (Manual) 52, Band Neutrophils % 7 H, Lymphocytes % (Manual) 26, Monocytes % (Manual) 5, Eosinophils % (Manual) 10 H, Diff Path Review Reviewed, Platelet Estimate ADEQUATE, RBC Morphology NORM C+C 10/26/19 19:00: Sodium 139, Potassium 3.7, Chloride 108 H, Carbon Dioxide 20.0 L , Anion Gap 11, BUN 29 H, Creatinine 1.54 H, Estim Creat Clear Calc 32.33, Est GFR (MDRD) Af Amer 43 L, Est GFR (MDRD) Non-Af 36 L, BUN/Creatinine Ratio 18.8, Glucose 223 H, Calcium 8.2 L, Total Bilirubin 0.70, AST 8 L, ALT 13, Alkaline Phosphatase 100, Troponin I < 0.015, Total Protein 6.6, Albumin 3.1 L, Globulin 3.5, Albumin/Globulin Ratio 0.9 10/26/19 19:00: Blood Type A POSITIVE, Antibody Screen NEGATIVE 10/26/19 21:49: COVID-19 (SHIRA) Cancelled 10/27/19 01:28: POC Glucose 148 H 10/27/19 01:40: Hgb 11.5 L, Hct 35.8 L 10/27/19 04:58: POC Glucose 166 H 10/27/19 05:30: WBC 11.8 H, RBC 3.97 L, Hgb 11.6 L, Hct 36.1 L, MCV 90.9, MCH 29.2, MCHC 32.1, RDW Std Deviation 43.3, RDW Coeff of Ivet 13.1, Plt Count 247, MPV 9.4, Immature Gran % (Auto) 4.000 H, Neut % (Auto) 49.1, Lymph % (Auto) 22.1, [place] % (Auto) 6.1, Eos % (Auto) 18.2 H, Baso % (Auto) 0.5, Absolute Neuts (auto) 5.8, Absolute Lymphs (auto) 2.61, Nucleated RBC % 0.2, Differential Comment SCANNED, Diff Path Review Reviewed 10/27/19 05:30: Sodium 139, Potassium 3.4 L, Chloride 110 H, Carbon Dioxide 20.0 L, Anion Gap 9, BUN 30 H, Creatinine 1.49 H, Estim Creat Clear Calc 33.42, Est GFR (MDRD) Af Amer 45 L, Est GFR (MDRD) Non-Af 37 L, BUN/Creatinine Ratio 20.1 H , Glucose 177 H, Calcium 7.4 L, Total Bilirubin 0.80, AST 5 L, ALT 11 L, Alkaline Phosphatase 104, Total Protein 6.0 L, Albumin 2.7 L, Globulin 3.3, Albumin/Globulin Ratio 0.8 L 10/27/19 05:30: Hemoglobin A1c 8.4 H 10/27/19 10:37: POC Glucose 185 H Current Medications Acetaminophen (Tylenol) 650 mg PO Q6H PRN PRN PRN Reason: Pain Score 1-10/Temp > 100.7 F Albuterol Sulfate (Ventolin Aerosols) 2.5 mg INHALATION Q2H PRN PRN PRN Reason: Dyspnea, wheezing Amlodipine Besylate (Norvasc) 5 mg PO DAILY [facility] Carvedilol (Coreg) 12.5 mg PO BID [facility] Last Admin: 10/27/19 02:36 Dose: 12.5 mg Documented by: Dextrose (D50w Syringe) 0 gm IV X1 PRN; Protocol PRN Reason: Hypoglycemia Fluoxetine HCl (Prozac) 40 mg PO DAILY [facility] Last Admin: 10/27/19 12:50 Dose: Not Given Documented by: Furosemide (Lasix) 20 mg PO 1800 [facility] Furosemide (Lasix) 40 mg PO DAILY [facility] Gabapentin (Neurontin) 600 mg PO QHS [facility] Last Admin: 10/27/19 02:37 Dose: 600 mg Documented by: Glucagon () 1 mg IM .X1 PRN PRN Reason: Hypoglycemia Hydralazine HCl (Apresoline Iv) 10 mg IV Q4H PRN PRN PRN Reason: SBP > 160 Sodium Chloride () 1,000 mls @ 125 mls/hr IV .Q8H [facility] Last Admin: 10/27/19 09:32 Dose: 125 mls/hr Documented by: Pantoprazole Sodium 40 mg/ (Sodium Chloride) 110 mls @ 330 mls/hr IV Q12 [facility] Last Infusion: 10/27/19 10:40 Dose: Infused Documented by: Insulin Glargine (Lantus (Bkc)) 20 units SC BID [facility] Last Admin: 10/27/19 05:04 Dose: Not Given Documented by: Insulin Human Lispro (Humalog Kwikpen (Bkc)) 0 unit SC Q6 [facility]; Protocol Last Admin: 10/27/19 11:09 Dose: Not Given Documented by: Loratadine (Claritin) 5 mg PO DAILY PRN PRN PRN Reason: ALLERGIES Melatonin (Melatonin) 3 mg PO QHS PRN PRN PRN Reason: INSOMNIA Morphine Sulfate () 4 mg IV Q3H PRN PRN PRN Reason: Pain Score 6-10/10 Nitroglycerin (Nitrostat) 0.4 mg SUBLINGUAL Q5M PRN PRN Reason: CARDIAC/CHEST PAIN Ondansetron HCl (Zofran) 4 mg IV Q8H PRN PRN PRN Reason: NAUSEA/VOMITING Last Admin: 10/27/19 02:32 Dose: 4 mg Documented by: Oxycodone HCl (Oxyir) 5 mg PO Q4H PRN PRN PRN Reason: Pain Score 4-5/10 Last Admin: 10/27/19 06:48 Dose: 5 mg Documented by: Prochlorperazine Edisylate (Compazine Iv) 5 mg IV Q4H PRN PRN PRN Reason: Breakthrough Nausea/Vomiting Sacubitril/Valsartan (Entresto 49 Mg-51 Mg Tablet) 1 each PO BID [facility] Last Admin: 10/27/19 12:47 Dose: 1 each Documented by: Sodium Chloride () 10 - 40 ml IV UD PRN PRN Reason: SALINE FLUSH Last Admin: 10/27/19 02:31 Dose: 20 ml Documented by: Inpatient E&M: [id number] [facility]
[2019-10-27] MEDS: Lactated Ringers 500 ML 999 ML IV (14:31)
[2019-10-27] MEDS: Insulin Lispro 100 UNIT/ML INSULN.PEN SC (17:13)
[2019-10-27 17:15] LABS: Bedside Glucose 216 mg/dL (70-110)
--- NOTE | 2019-10-28 13:34 | CASEMGMT ---
SOPHIE HILLIARD DC PHONE CALL DC DATE: 10.28.2019 DC DISPOSITION: Home DC DIAGNOSIS: UGIB LACE/STRATA: 03/13 F/U APPTS MADE PRIOR TO DC: yes PRESCRIPTIONS ACQUIRED BY PT: yes Intro role of CM to patient via phone. Pt states she is still having diarrhea, not feeling well. She states she called her PCP this am and they are reviewing her DC instructions, medications and will call her back this afternoon. Pt does not have further questions as she is deferring to her PCP. No care improvement suggestions were given- pt states everyone was so nice, I just wish they would have sent me home feeling better. SOPHIE HILLIARD encouraged pt to remain in contact with her PCP. Sara CHAVEZ RN ACM
== END 2019-10-27 17:48 | disposition home or self-care (01) | DRG 391 ==
LOC: ED 21:18 → PCU 22:07
PROVIDERS: Surgery; Admitting Provider Family Medicine; Emergency Provider Emergency Medicine; PCP Nurse Practitioner Family; Referring Provider Family Medicine; Visit Provider Internal Medicine
PROC: 0DJ08ZZ Inspection of Upper Intestinal Tract, Via Natural or Artificial Opening Endoscopic (ICD-10-PCS; CPT 43235; principal; 2019-10-27 12:00)
DX: K52.9 Noninfective gastroenteritis and colitis, unspecified (principal); K29.71 Gastritis, unspecified, with bleeding; I42.0 Dilated cardiomyopathy; I13.0 Hypertensive heart and chronic kidney disease with heart failure and stage 1 through stage 4 chronic kidney disease, or unspecified chronic kidney disease; D62 Acute posthemorrhagic anemia; I50.22 Chronic systolic (congestive) heart failure; K21.9 Gastro-esophageal reflux disease without esophagitis; E11.22 Type 2 diabetes mellitus with diabetic chronic kidney disease; N18.3 Chronic kidney disease, stage 3 (moderate); E87.6 Hypokalemia; F32.9 Major depressive disorder, single episode, unspecified; F41.9 Anxiety disorder, unspecified; E78.00 Pure hypercholesterolemia, unspecified; E78.5 Hyperlipidemia, unspecified; I25.10 Atherosclerotic heart disease of native coronary artery without angina pectoris; I34.0 Nonrheumatic mitral (valve) insufficiency; G47.33 Obstructive sleep apnea (adult) (pediatric); E66.9 Obesity, unspecified; Z68.38 Body mass index [BMI] 38.0-38.9, adult; Z95.810 Presence of automatic (implantable) cardiac defibrillator; Z88.8 Allergy status to other drugs, medicaments and biological substances; Z79.4 Long term (current) use of insulin; Z79.82 Long term (current) use of aspirin; Z79.899 Other long term (current) drug therapy; Z87.891 Personal history of nicotine dependence
CPT/HCPCS: 36415; 74176; 80053; 81001; 82274; 82962; 83036; 84484; 85014; 85018; 85025; 86850; 86900; 86901; 87635; 88305; 88342; 93005; 94002; 96361; 96365; 96375; 96376; 97802; 99251; 99284; G2023; J7030; J7120; A4216; G0463; J2405; J3490; U0002

== ENCOUNTER → 2020-04-02 10:30 | Outpatient (CLI) | payer MEDICARE, OTHER, SELFPAY ==
[2019-11-27 13:50] VITALS: BMI 39.1
[2020-04-02 11:11] LABS: Absolute Lymphocyte Count 2.16 X10^3/uL (0.83-4.51); Absolute Neutrophil Count 4.1 X10^3/uL (2.0-7.7); Basophil# 0.03 X10^3/uL; Basophil% 0.4 % (0-1); Eosinophils% 2.9 % (0-5); Hematocrit 35.8 % (37-47); Hemoglobin 11.3 g/dL (12.0-15.0); Lymphocyte # 2.16 X10^3/ul (4.0); Lymphocyte % 31.1 % (19-41); Mean Corp Hgb Conc 31.6 g/dL (32-36); Mean Corpuscular Hgb 27.7 pg (27.0-32.0); Mean Corpuscular Volume 87.7 fL (81-99); Mean Platelet Vol. 9.4 fl (6.2-12.0); Monocyte# 0.45 X10^3/uL; Monocyte% 6.5 % (0-10); NRBC Flagged by Analyzer 0 % (0-5); Neutrophil # 4.08 X10^3/uL (2.7-7.7); Neutrophil % 58.7 % (47-70); Platelet Count 348 K/mm3 (150-450); RBC Distribution Width CV 13.8 % (11.6-14.6); RBC Distribution Width SD 43.8 fl (35.1-43.9); Red Blood Count 4.08 M/mm3 (4.2-5.4)
[2020-04-02 11:29] LABS: Hemoglobin A1c 9.9 % (3.8-5.6)
[2020-04-02 11:42] LABS: AST(SGOT) 7 U/L (15-37); Alanine Aminotransfer ALT/SGPT 17 U/L (13-56); Albumin, Serum 3.5 g/dL (3.2-5.0); Alkaline Phosphatase 86 U/L (45-117); Anion Gap 6 (5-15); BUN 25 mg/dL (7-18); BUN/Creat Ratio 20.8 RATIO (10-20); Calcium,Total 8.4 mg/dL (8.5-10.1); Chloride 105 mmol/L (98-107); Cholesterol 237 mg/dL (200); EST Glomerular Filtration Rate 48 mL/min (>60); Est Glom Filt Rate - Afr Amer 58 mL/min (>60); Globulin 3.6 g/dL (2.2-4.2); Glucose 188 mg/dL (74-106); High Density Lipoprotein 52 mg/dL; Potassium 4.4 mmol/L (3.5-5.1); Protein, Total 7.1 g/dL (6.4-8.2); Sodium Level 137 mmol/L (136-145); T4 Free Direct 1.07 ng/dL (0.76-1.46); Thyroid Stim Hormone (TSH) 1.86 uIU/mL (0.358-3.74); Triglycerides 236 mg/dL; Very Low Density Lipoprotein 47 mg/dL (5-40)
== END ==
PROVIDERS: PCP Nurse Practitioner Family; Visit Provider Nurse Practitioner Family
CPT/HCPCS: 36415; 80053; 80061; 82306; 83036; 84439; 84443; 85025

== ENCOUNTER 2020-04-30 09:45 | Emergency (ER) | payer MEDICARE, OTHER, SELFPAY ==
[2019-11-27 13:50] VITALS: BMI 39.1
[2020-04-30 09:46] VITALS: BP 137/76; PULSE 60; RESP 19; TEMP 36.4; O2SAT 99; BMI 39.9
--- NOTE | 2020-04-30 10:08 | RAD_ITS ---
STUDY: X-RAY CHEST REASON FOR EXAM: Female, 64 years old. ROYAL,SORE THROAT, LOSS OF TASTE X 3 DAYS TECHNIQUE: Single AP portable view of the chest. COMPARISON: Comparison is made with prior study dated 01/26/2017. FINDINGS: EKG electrodes are seen. The lungs are clear and expanded. There is no demonstrated pleural abnormality. Normal size heart. A left-sided dual-chamber pacemaker is seen. Normal mediastinum and margaret. Normal visualized pulmonary arteries. There is atherosclerotic calcification of the aortic arch with tortuosity. Normal visualized thoracic spine. Normal visualized ribs, clavicles, and shoulders. There is no demonstrated abnormality of the visualized soft tissue structures of the upper abdomen. RAD/Chest 1 View (Portable) IMPRESSION: No acute abnormality is seen. Electronically Signed: Macho Majano, at 10:43 EST , Service support ,
--- NOTE | 2020-04-30 10:08 | EKG12_ITS ---
Test Reason : CP Blood Pressure : / mmHG Vent. Rate : 060 BPM Atrial Rate : 052 BPM P-R Int : 166 ms QRS Dur : 148 ms QT Int : 482 ms P-R-T Axes : 000 131 096 degrees QTc Int : 482 ms AV dual-paced rhythm Biventricular pacemaker detected Abnormal ECG Confirmed by BRYCE HASSAN, MARCELINA ([id number]), editor department ERASMO CRUZ ([id number]) on 05/03/2020 9:45:32 AM Referred By: MICHEL Confirmed By:MARCELINA WU MD
--- NOTE | 2020-04-30 10:10 | ED.VIS.DYS ---
History of Present Illness Informant: Patient Onset: Days - 3 days Activity at onset: Exertion, Light Activity, Rest, Sleep Timing: Continuous Quality: Dyspnea on exertion, Orthopnea, PND Current Severity: Mild Maximum Severity: Severe Worsened by: Coughing, Exertion, Lying flat Relieved by: Nothing Associated Symptoms: Negative for: Bloody Sputum, Chills, Clear sputum, Cough, Ear pain, Fever, Green sputum, Post-nasal drainage, Rhinorrhea, Sore throat, Sweats, White sputum, Yellow sputum Chest Pain: Tightness Narrative: 64-year-old female history of CAD CHF presents to the ED with shortness of breath dyspnea on exertion orthopnea and loss of taste and smell for 3 days. No fevers. No cough. No vomiting or nausea. She does have some loose stool for the last week. No symptoms of bleeding. No obvious exposures to Covid. No leg swelling or pain. No hemoptysis. She is not lightheaded or dizzy. PE Risk Factors: Negative for: Cancer, OCP + Smoking + > 35, Prior DVT or PE, Recent immobilization, Recent surgery, Recent travel Prior similar symptoms: Yes Recent Illness/Hospitalization: No <Nathan Sheffield - Last Filed: 04/30/20 11:20> <Justyn Lu - Last Filed: 04/30/20 14:29> Chief Complaint: Shortness of Breath Past Medical History Prior records reviewed: Yes Past Medical History: - - Cardiomyopathy CAD CHF hypertension hyperlipidemia GERD Surgical History: - - Hysterectomy, bilateral breast reduction, left eye surgery for tumor, bilateral foot surgery, AICD. Lives: With Family Smoking Status: Former smoker Alcohol: None Drugs: None - Family History Maternal Family History: Family History (Last Reviewed 05/30/19 @ 14:38 by Kaye Pierson) Father Lung cancer Mother Breast cancer Brother Cancer Family History: Reports: Diabetes, Heart Disease, Hypertension Paternal Family History: Family History (Last Reviewed 05/30/19 @ 14:38 by Kaye Pierson) Father Lung cancer Mother Breast cancer Brother Cancer Family History: Reports: Diabetes, Heart Disease, Hypertension <Nathan Sheffield - Last Filed: 04/30/20 11:20> - Family History Maternal Family History: Family History (Last Reviewed 05/30/19 @ 14:38 by Kaye Pierson) Father Lung cancer Mother Breast cancer Brother Cancer Paternal Family History: Family History (Last Reviewed 05/30/19 @ 14:38 by Kaye Pierson) Father Lung cancer Mother Breast cancer Brother Cancer <Justyn Lu - Last Filed: 04/30/20 14:29> - Allergies and Home Meds Allergies/Adverse Reactions: Allergies red dye Allergy (Verified 04/30/20 09:45) Hives Ufxymiy-Yll-Nyq Reductase Inhibitor Adverse Reaction (Severe, Verified 04/30/20 09:45) Myalgias Primary Care Physician: Yary Chambers [Primary Care Provider] - Review of Systems All systems negative except as indicated General: Denies: Chills, Fever, Sweats Eyes: Denies: Visual changes - bilaterally, Diplopia ENT: Denies: Rhinorrhea, Sore throat Cardiovascular: Reports: Chest pain. Denies: Palpitations, Heart racing Respiratory: Reports: Dyspnea, Dyspnea on exertion, Orthopnea. Denies: Cough, Sputum Gastrointestinal: Denies: Abdominal pain, Nausea, Vomiting, Diarrhea, Melena, Hematochezia Genitourinary: Denies: Dysuria, Hematuria, Frequency Musculoskeletal: Denies: Myalgias, Arthralgias, Neck pain, Back pain, Swelling, Extremity Pain Skin: Denies: Rash, Abscess, Abrasions, Wounds Neurological: Denies: Headache, Weakness, Parasthesia, Numbness <Nathan Sheffield - Last Filed: 04/30/20 11:20> Physical Exam Vital Signs/Narrative: Vital Signs Temp Pulse Resp BP Pulse Ox 04/30/20 09:46 97.5 F L 60 19 H 137/76 H 99 Inital Vital Signs reviewed: Yes General: Well nourished, Well developed, No Acute Distress Head: Normocephalic, Atraumatic Eyes: Perrl, EOMI ENT: Moist mucous membranes, No rhinorrhea Neck: Supple, Nontender Cardiovascular: Regular rate, Regular rhythm, No murmurs Respiratory: No distress, CTA bilaterally, Chest nontender Abdomen: Soft, Nontender, Nondistended, Normal bowel sounds Back: Nontender, Normal Inspection Extremities: Nontender, No edema. Negative for: Tenderness, Edema, Calf Tenderness Skin: Normal color, No rash Neurological: Alert, Oriented x3, Cranial nerves II-XII grossly intact, Normal Strength, Normal Sensation Psychological: Normal affect, Normal Mood <Nathan Sheffield - Last Filed: 04/30/20 11:20> Vital Signs/Narrative: Vital Signs Pulse Resp BP Pulse Ox 04/30/20 12:00 134/71 H 04/30/20 11:59 60 16 134/71 H 97 <Justyn Lu - Last Filed: 04/30/20 14:29> Diagnostic/Tx/Re-eval Chest X-Ray - ED: 1 View, Read by ED Physician, Read by Radiologist, No Acute Disease - Rhythm Strip Rhythm Strip: Paced Rate: 65 Ectopy: None - Medical Decision Making On arrival the patient has a pulse ox of 100% and her vital signs are within normal limits and overall she is well-appearing and in no distress. EKG was a paced rhythm without change from previous EKG. Rapid Covid was negative. Laboratory work-up including CBC BMP BNP and troponin unremarkable. Repeat exam patient is well-appearing. Her pulse ox is 100%. She was reassured. A large component of this is likely anxiety. Will be discharged home to follow-up with her doctor. Return precautions given. She is agreeable with plan all questions answered. <Nathan Sheffield - Last Filed: 04/30/20 11:20> - Medical Decision Making I performed a history and physical examination of the patient and discussed management plan with the physician assistant director of nursing. I reviewed the physician assistant director of nursing's note and agree with the documented findings and plan of care. Patient complains of chest discomfort. She appears very anxious and worried about Covid. Her vital signs are very reassuring. Her work-up is negative. I think it is very reasonable that she be discharged home. Justyn Lu DO, MS <Justyn Lu - Last Filed: 04/30/20 14:29> ED Disposition <Nathan Sheffield - Last Filed: 04/30/20 11:20> <Justyn Lu - Last Filed: 04/30/20 14:29> - Plan for ED Patient: Disposition: Home or Assisted Living Diagnosis: Shortness of breath, Cardiac defibrillator in situ Instructions: ED Dyspnea Referrals: Yary Chambers [Primary Care Provider] -
[2020-04-30 10:20] LABS: Absolute Lymphocyte Count 1.58 X10^3/uL (0.83-4.51); Absolute Neutrophil Count 3.5 X10^3/uL (2.0-7.7); Basophil# 0.03 X10^3/uL; Basophil% 0.5 % (0-1); Eosinophil# 0.13 X10^3/uL; Eosinophils% 2.3 % (0-5); Hemoglobin 11.8 g/dL (12.0-15.0); Lymphocyte # 1.58 X10^3/ul (4.0); Lymphocyte % 28.3 % (19-41); Mean Corp Hgb Conc 31.9 g/dL (32-36); Mean Corpuscular Hgb 28.4 pg (27.0-32.0); Mean Corpuscular Volume 89.2 fL (81-99); Mean Platelet Vol. 9.6 fl (6.2-12.0); Monocyte# 0.34 X10^3/uL; Monocyte% 6.1 % (0-10); NRBC Flagged by Analyzer 0 % (0-5); Neutrophil # 3.49 X10^3/uL (2.7-7.7); Neutrophil % 62.4 % (47-70); Platelet Count 328 K/mm3 (150-450); RBC Distribution Width CV 13.5 % (11.6-14.6); RBC Distribution Width SD 44.3 fl (35.1-43.9); Red Blood Count 4.15 M/mm3 (4.2-5.4); White Blood Count 5.6 K/mm3 (4.4-11.0)
[2020-04-30 10:37] LABS: Anion Gap 6 (5-15); BUN 29 mg/dL (7-18); BUN/Creat Ratio 26.6 RATIO (10-20); Calcium,Total 9.2 mg/dL (8.5-10.1); Chloride 106 mmol/L (98-107); Creatinine, Serum 1.09 mg/dL (0.55-1.02); EST Glomerular Filtration Rate 53 mL/min (>60); Est Glom Filt Rate - Afr Amer 64 mL/min (>60); Estimated Creatinine Clearance 45.68 ml/min; Glucose 320 mg/dL (74-106); Potassium 5.2 mmol/L (3.5-5.1); Sodium Level 136 mmol/L (136-145)
[2020-04-30 11:12] LABS: BNP,B-Type NATRIURETIC PEPTIDE 112.8 pg/mL (0-100)
[2020-04-30 11:59] VITALS: BP 134/71; PULSE 60; RESP 16; O2SAT 97
[2020-04-30 12:00] VITALS: BP 134/71
== END 2020-04-30 12:15 | disposition home or self-care (01) ==
PROVIDERS: Emergency Provider Physician Assistant Medical
DX: R06.02 Shortness of breath (principal); Z95.810 Presence of automatic (implantable) cardiac defibrillator; I25.10 Atherosclerotic heart disease of native coronary artery without angina pectoris; I42.9 Cardiomyopathy, unspecified; I11.0 Hypertensive heart disease with heart failure; I50.9 Heart failure, unspecified; E78.5 Hyperlipidemia, unspecified; K21.9 Gastro-esophageal reflux disease without esophagitis; Z79.82 Long term (current) use of aspirin; Z79.899 Other long term (current) drug therapy; Z87.891 Personal history of nicotine dependence
CPT/HCPCS: 71045; 80048; 83880; 84484; 85025; 87426; 93005; 99284

== ENCOUNTER 2020-07-06 13:20 | Emergency (ER) | payer MEDICARE, OTHER, SELFPAY ==
[2020-07-06 13:21] VITALS: BP 190/98; PULSE 60; RESP 16; TEMP 36.2; O2SAT 97; BMI 40.7
--- NOTE | 2020-07-06 13:50 | EKG12_ITS ---
Test Reason : DIZZINESS Blood Pressure : / mmHG Vent. Rate : 060 BPM Atrial Rate : 063 BPM P-R Int : 166 ms QRS Dur : 152 ms QT Int : 496 ms P-R-T Axes : 000 136 101 degrees QTc Int : 496 ms AV dual-paced rhythm Biventricular pacemaker detected Abnormal ECG Confirmed by FRANCISCO HASSAN, SUSSY ([id number]), electronic news gathering editor GENNA HOPKINS ([id number]) on 07/07/2020 11:16:19 AM Referred By: MICHEL Confirmed By:SUSSY SINGH MD
--- NOTE | 2020-07-06 13:50 | ED.VIS.GEN ---
History of Present Illness Chief Complaint: Dizziness Informant: Patient Narrative: Patient presents with 8 days of room spinning sensation with movement of her head. She tells me that she cannot move her head right or left her upper back. She tells me that it makes the room spinning worse. She notes nausea. She developed diarrhea today. She has a bedridden that she cares for at home. She denies any head trauma. She states that has had the symptoms recently but went away. She denies any recent infections. No tinnitus. - Past Medical History (1) Acute upper GI bleeding Status: Resolved (2) Anxiety and depression Status: Chronic (3) Atherosclerotic heart disease of [place] coronary artery without angina pectoris Status: Chronic Comment: 05/26/2015 @ [facility] per Dr. Boggs: mild nonobstructive CAD (4) Cardiac defibrillator in situ Status: Chronic Comment: Dr. Garcia's office interrogates @ [facility]: Implanted 03/16/2016 mala Garcia, [facility] (5) Chronic systolic (congestive) heart failure Status: Chronic (6) Diabetes mellitus, type II Status: Chronic (7) Dilated cardiomyopathy Status: Chronic Comment: Ejection fraction 20% per echo 01/13/2016 @ [facility] (8) Essential hypertension Status: Chronic (9) Nonrheumatic mitral (valve) insufficiency Status: Chronic Comment: moderate (2+) per echo 01/13/2016 (10) NICOLLE (obstructive sleep apnea) Status: Chronic (11) Obesity (BMI 30-39.9) Status: Chronic (12) Pure hypercholesterolemia Status: Chronic Past Medical History - Allergies and Home Meds Allergies/Adverse Reactions: Allergies red dye Allergy (Verified 07/06/20 13:23) Hives Poerxll-Fts-Tsr Reductase Inhibitor Adverse Reaction (Severe, Verified 07/06/20 13:23) Myalgias Primary Care Physician: Yary Chambers [Primary Care Provider] - Surgical History: - - Hysterectomy, bilateral breast reduction, left eye surgery for tumor, bilateral foot surgery, AICD. Lives: Spouse/ Significant Other Smoking Status: Former smoker Drugs: None - Family History Maternal Family History: Family History (Last Reviewed 05/30/19 @ 14:38 by Kaye Pierson) Father Lung cancer Mother Breast cancer Brother Cancer Family History: Reports: Diabetes, Heart Disease, Hypertension Paternal Family History: Family History (Last Reviewed 05/30/19 @ 14:38 by Kaye Pierson) Father Lung cancer Mother Breast cancer Brother Cancer Family History: Reports: Diabetes, Heart Disease, Hypertension Review of Systems General: Denies: Chills, Fever, Sweats Eyes: Denies: Visual changes - bilaterally, Diplopia ENT: Denies: Rhinorrhea, Sore throat Cardiovascular: Denies: Chest pain, Palpitations Respiratory: Denies: Dyspnea, Cough, Dyspnea on exertion Gastrointestinal: Denies: Abdominal pain, Nausea, Vomiting, Diarrhea, Melena, Hematochezia Genitourinary: Denies: Dysuria, Hematuria, Frequency Musculoskeletal: Denies: Back pain, Extremity Pain Skin: Denies: Rash, Wounds Neurological: Reports: - - dizziness. Denies: Headache, Weakness, Numbness Physical Exam Vital Signs/Narrative: Vital Signs Temp Pulse Resp BP Pulse Ox 07/06/20 13:21 97.2 F L 60 16 190/98 H 97 Inital Vital Signs reviewed: Yes General: Well nourished, Well developed, Obese, No Acute Distress Head: Normocephalic, Atraumatic Eyes: Perrl, EOMI ENT: Moist mucous membranes, No rhinorrhea Neck: Supple, Nontender Cardiovascular: Regular rate, Regular rhythm, No murmurs Respiratory: No distress, CTA bilaterally, Chest nontender Abdomen: Soft, Nontender, Nondistended, Normal bowel sounds Back: Nontender, Normal Inspection Extremities: Nontender, No edema Skin: Normal color, No rash Neurological: Alert, Oriented x3, Cranial nerves II-XII grossly intact, Normal Strength, Normal Sensation Psychological: Normal affect, Normal Mood Diagnostic/Tx/Re-eval Laboratory Last Values WBC 8.5 K/mm3 (4.4-11.0) 07/06/20 13:40 RBC 4.53 M/mm3 (4.2-5.4) 07/06/20 13:40 Hgb 12.9 g/dL (12.0-15.0) 07/06/20 13:40 Hct 39.7 % (37-47) 07/06/20 13:40 MCV 87.6 fL (81-99) 07/06/20 13:40 MCH 28.5 pg (27.0-32.0) 07/06/20 13:40 MCHC 32.5 g/dL (32-36) 07/06/20 13:40 RDW Std Deviation 42.1 fl (35.1-43.9) 07/06/20 13:40 RDW Coeff of Ivet 13.0 % (11.6-14.6) 07/06/20 13:40 Plt Count 288 K/mm3 (150-450) 07/06/20 13:40 MPV 9.4 fl (6.2-12.0) 07/06/20 13:40 Immature Gran % (Auto) 0.500 % (0.0-0.9) 07/06/20 13:40 Neut % (Auto) 63.4 % (47-70) 07/06/20 13:40 Lymph % (Auto) 23.5 % (19-41) 07/06/20 13:40 Wilkinson % (Auto) 5.7 % (0-10) 07/06/20 13:40 Eos % (Auto) 6.1 % (0-5) H 07/06/20 13:40 Baso % (Auto) 0.8 % (0-1) 07/06/20 13:40 Absolute Neuts (auto) 5.4 X10^3/uL (2.0-7.7) 07/06/20 13:40 Absolute Lymphs (auto) 2.01 X10^3/uL (0.83-4.51) 07/06/20 13:40 Nucleated RBC % 0 % (0-5) 07/06/20 13:40 Sodium 132 mmol/L (136-145) L 07/06/20 13:40 Potassium 4.4 mmol/L (3.5-5.1) 07/06/20 13:40 Chloride 101 mmol/L (98-107) 07/06/20 13:40 Carbon Dioxide 25.0 mmol/L (21.0-32.0) 07/06/20 13:40 Anion Gap 6 (5-15) 07/06/20 13:40 BUN 19 mg/dL (7-18) H 07/06/20 13:40 Creatinine 1.14 mg/dL (0.55-1.02) H 07/06/20 13:40 Estim Creat Clear Calc 43.09 ml/min 07/06/20 13:40 Est GFR (MDRD) Af Amer 61 mL/min (>60) 07/06/20 13:40 Est GFR (MDRD) Non-Af 51 mL/min (>60) L 07/06/20 13:40 BUN/Creatinine Ratio 16.7 RATIO (10-20) 07/06/20 13:40 Glucose 305 mg/dL (74-106) H 07/06/20 13:40 Calcium 8.7 mg/dL (8.5-10.1) 07/06/20 13:40 Total Bilirubin 0.60 mg/dL (0.20-1.00) 07/06/20 13:40 AST 7 U/L (15-37) L 07/06/20 13:40 ALT 18 U/L (13-56) 07/06/20 13:40 Alkaline Phosphatase 97 U/L (45-117) 07/06/20 13:40 Total Protein 7.2 g/dL (6.4-8.2) 07/06/20 13:40 Albumin 3.4 g/dL (3.2-5.0) 07/06/20 13:40 Globulin 3.8 g/dL (2.2-4.2) 07/06/20 13:40 Albumin/Globulin Ratio 0.9 RATIO (0.9-2.4) 07/06/20 13:40 Lipase 380 U/L (73-393) 07/06/20 13:40 - EKG Initial EKG Interpretation: - - EKG demonstrates AV dual paced rhythm at a rate of 60. - Medical Decision Making While interviewing the patient and the nurses are obtaining IV access. The patient is able to turn her head to the left in shock that she is being poked with a needle. Did not seem to make any more dizzy. At times she would turn her head to the right lay her head back bring her head forward none of these caused her vertiginous symptoms to the degree that when I have her move her head in the same manner she does so very slowly and deliberately and states her symptoms get worse. I do not appreciate any nystagmus. The abdominal exam is nontender. Patient received IV fluids, Valium, and Zofran. Patient was able to ambulate down to the bathroom and back without any significant difficulty or assistance. No further vomiting. I will write for the patient have Valium and Zofran at home. I will asked that she have follow-up with primary care return if worsening or concerns ED Disposition - Plan for ED Patient: Disposition: Home or Assisted Living Diagnosis: Vertigo Instructions: ED BPV Vertigo, ED Dizziness, Uncertain Cause Prescriptions: Diazepam [Valium] 2 mg PO TID PRN PRN #20 tab PRN Reason: Vertigo Prescription Printed Referrals: Yary Chambers [Primary Care Provider] - As soon as possible
[2020-07-06] MEDS: Ondansetron 4 MG/2 ML Vial IV (13:55)
[2020-07-06] MEDS: diazePAM 5 MG Tablet PO (13:58)
[2020-07-06] MEDS: 0.9% Normal Saline 1,000 ML 1000 ML IV (13:58)
[2020-07-06 13:59] LABS: Absolute Lymphocyte Count 2.01 X10^3/uL (0.83-4.51); Absolute Neutrophil Count 5.4 X10^3/uL (2.0-7.7); Basophil# 0.07 X10^3/uL; Basophil% 0.8 % (0-1); Eosinophil# 0.52 X10^3/uL; Eosinophils% 6.1 % (0-5); Hematocrit 39.7 % (37-47); Hemoglobin 12.9 g/dL (12.0-15.0); Lymphocyte # 2.01 X10^3/ul (4.0); Lymphocyte % 23.5 % (19-41); Mean Corp Hgb Conc 32.5 g/dL (32-36); Mean Corpuscular Hgb 28.5 pg (27.0-32.0); Mean Corpuscular Volume 87.6 fL (81-99); Mean Platelet Vol. 9.4 fl (6.2-12.0); Monocyte# 0.49 X10^3/uL; Monocyte% 5.7 % (0-10); NRBC Flagged by Analyzer 0 % (0-5); Neutrophil # 5.41 X10^3/uL (2.7-7.7); Neutrophil % 63.4 % (47-70); Platelet Count 288 K/mm3 (150-450); RBC Distribution Width SD 42.1 fl (35.1-43.9); Red Blood Count 4.53 M/mm3 (4.2-5.4); White Blood Count 8.5 K/mm3 (4.4-11.0)
[2020-07-06 14:10] LABS: ALB/GLOB Ratio 0.9 RATIO (0.9-2.4); AST(SGOT) 7 U/L (15-37); Alanine Aminotransfer ALT/SGPT 18 U/L (13-56); Albumin, Serum 3.4 g/dL (3.2-5.0); Alkaline Phosphatase 97 U/L (45-117); Anion Gap 6 (5-15); BUN 19 mg/dL (7-18); BUN/Creat Ratio 16.7 RATIO (10-20); Calcium,Total 8.7 mg/dL (8.5-10.1); Chloride 101 mmol/L (98-107); Creatinine, Serum 1.14 mg/dL (0.55-1.02); EST Glomerular Filtration Rate 51 mL/min (>60); Est Glom Filt Rate - Afr Amer 61 mL/min (>60); Estimated Creatinine Clearance 43.09 ml/min; Globulin 3.8 g/dL (2.2-4.2); Glucose 305 mg/dL (74-106); Lipase 380 U/L (73-393); Potassium 4.4 mmol/L (3.5-5.1); Protein, Total 7.2 g/dL (6.4-8.2); Sodium Level 132 mmol/L (136-145)
[2020-07-06 15:12] VITALS: BP 171/93; PULSE 60; RESP 16; O2SAT 98
== END 2020-07-06 15:22 | disposition home or self-care (01) ==
PROVIDERS: Emergency Provider Emergency Medicine
DX: R42 Dizziness and giddiness (principal); R19.7 Diarrhea, unspecified; R11.0 Nausea; E66.9 Obesity, unspecified; I25.10 Atherosclerotic heart disease of native coronary artery without angina pectoris; Z95.810 Presence of automatic (implantable) cardiac defibrillator; Z87.891 Personal history of nicotine dependence
CPT/HCPCS: 80053; 83690; 85025; 93005; 96374; 99285; J7030; A4216; J2405

== ENCOUNTER → 2020-08-03 09:32 | Outpatient (CLI) | payer MEDICARE, OTHER, SELFPAY ==
[2020-07-23 13:04] VITALS: BMI 39.9
--- NOTE | 2020-08-03 09:37 | ECHOCS_ITS ---
Reason For Study: CARDIOMYOPATHY Procedure This was a 2D Doppler, Color Flow transthoracic echocardiogram. The study was technically difficult. Contrast injection was performed. Exam performed in department. Left Ventricle Normal LV size. Mild global left ventricular systolic dysfunction. The estimated ejection fraction is 50 %. Paced septal motion. Diastolic function is indeterminate. Mid-Anterior : Hypokinetic. Mid- Lateral : Hypokinetic. Mid-Posterior: Hypokinetic. Mid-Inferior: Hypokinetic. Mid-inferoseptal : Hypokinetic. Mid-anteroseptal : Hypokinetic. [place] : Hypokinetic. Right Ventricle Normal RV size. ICD or pacer leads identified within the right ventricle. Normal systolic function. Atria The left atrium is mildly enlarged. Normal right atrium. ICD or pacer leads identified within the right atrium. No doppler evidence for ASD. Mitral Valve There is mild mitral annular calcification. Mild diffuse mitral valve thickening. Mild (1+) mitral valve insufficiency. Tricuspid Valve Normal tricuspid valve. Trivial tricuspid valve insufficiency. Right ventricular systolic pressure estimated to be 31 mmHg. Aortic Valve Trisinus/trileaflet aortic valve. Normal aortic valve. Pulmonic Valve The pulmonic valve is not well visualized. Trivial pulmonic valve insufficiency. Great Vessels Normal sized aortic root. Pericardium/Pleural No pericardial effusion. Medication 22 gauge I.V. with prn adaptor inserted into left arm. Diluted definity 3ml given slow IV push to enhance endocardial definition. MMode/2D Measurements & Calculations LVIDd: 5.8 cm IVSd: 1.1 cm Ao root diam: 3.1 cm LVIDs: 4.2 cm LVPWd: 1.2 cm RVDd: 3.0 cm FS: 28.9 % LAV(MOD-bp): 51.1 ml LVAd ap4: 31.6 cm2 SV(MOD-sp4): 54.5 ml LAV(MOD-bp) Indexed: 23.9 ml/m2 EDV(MOD-sp4): 105.0 ml LAV(MOD-sp2): 50.4 ml EDV(sp4-el): 111.5 ml LAV(MOD-sp4): 46.2 ml LVAs ap4: 20.9 cm2 ESV(MOD-sp4): 50.5 ml ESV(sp4-el): 54.0 ml EF(MOD-sp4): 51.9 % EF(sp4-el): 51.6 % SV(sp4-el): 57.5 ml LA A4 area: 16.7 cm2 LA dimension(2D): 4.0 cm RA A4 area: 14.3 cm2 Time Measurements MV dec time: 0.26 sec Doppler Measurements & Calculations MV E max omega: 88.7 cm/sec Lat Peak E' Omega: 6.4 cm/sec Med Peak E' Omega: 6.2 cm/sec MV A max omega: 121.9 cm/sec E/E' lat: 13.9 E/E' med: 14.2 MV E/A: 0.73 Ao V2 max: 144.0 cm/sec LV V1 max: 97.3 cm/sec PA V2 max: 95.1 cm/sec Ao max P.3 mmHg LV V1 max P.8 mmHg TR max omega: 265.4 cm/sec TR max P.2 mmHg Interpretation Summary The study was technically difficult. Contrast injection was performed. Mild global left ventricular systolic dysfunction. The estimated ejection fraction is 50 %. Paced septal motion. The left atrium is mildly enlarged. There is mild mitral annular calcification. Mild diffuse mitral valve thickening. Mild (1+) mitral valve insufficiency. Trivial tricuspid valve insufficiency. Trivial pulmonic valve insufficiency. Right ventricular systolic pressure estimated to be 31 mmHg. ICD or pacer leads identified within the right atrium ICD or pacer leads identified within the right ventricle. Diastolic function is indeterminate. Ordering Physician: Stewart Boggs Referring Physician: GENIE Nuñez Performed By: Jane Bunn RDCS
== END ==
PROVIDERS: Referring Provider Internal Medicine Cardiovascular Disease; Visit Provider Internal Medicine Cardiovascular Disease
DX: I42.9 Cardiomyopathy, unspecified (principal); I34.0 Nonrheumatic mitral (valve) insufficiency
CPT/HCPCS: 93306; Q9957; A4216; C8929

== ENCOUNTER → 2020-08-11 09:25 | Outpatient (CLI) | payer MEDICARE, OTHER, SELFPAY ==
[2020-07-23 13:04] VITALS: BMI 39.9
[2020-08-11 10:37] LABS: Hemoglobin A1c 11.4 % (3.8-5.6)
[2020-08-11 10:45] LABS: ALB/GLOB Ratio 0.9 RATIO (0.9-2.4); AST(SGOT) 7 U/L (15-37); Alanine Aminotransfer ALT/SGPT 18 U/L (13-56); Albumin, Serum 3.4 g/dL (3.2-5.0); Alkaline Phosphatase 86 U/L (45-117); Anion Gap 8 (5-15); BUN 35 mg/dL (7-18); BUN/Creat Ratio 25.9 RATIO (10-20); Calcium,Total 9.1 mg/dL (8.5-10.1); Chloride 104 mmol/L (98-107); Creatinine, Serum 1.35 mg/dL (0.55-1.02); EST Glomerular Filtration Rate 42 mL/min (>60); Est Glom Filt Rate - Afr Amer 50 mL/min (>60); Globulin 3.7 g/dL (2.2-4.2); Glucose 304 mg/dL (74-106); Potassium 4.6 mmol/L (3.5-5.1); Protein, Total 7.1 g/dL (6.4-8.2); Sodium Level 136 mmol/L (136-145)
[2020-08-11 10:58] LABS: Urine Sodium 47 mmol/L (Not Establ.)
[2020-08-11 11:00] LABS: Osmolality, Serum 310 mOsm/KG (280-301); Osmolality, Urine 555 mOsm/KG
== END ==
DX: E11.65 Type 2 diabetes mellitus with hyperglycemia (principal); E87.1 Hypo-osmolality and hyponatremia
CPT/HCPCS: 36415; 80053; 83036; 83930; 83935; 84300

== ENCOUNTER 2020-08-17 11:36 | Emergency (ER) | payer OTHER, MEDICARE, SELFPAY ==
[2020-07-23 13:04] VITALS: BMI 39.9
[2020-08-17 11:37] VITALS: BP 140/72; PULSE 60; RESP 18; TEMP 36.6; O2SAT 98; BMI 40.7
--- NOTE | 2020-08-17 12:23 | CT_ITS ---
STUDY: CT FACIAL BONES WITHOUT CONTRAST REASON FOR EXAM: Female, 65 years old. fall trauma RADIATION DOSAGE (If Supplied By Facility): CTDIvol = ( 33.45 ) mGy, DLP = ( 604.06 ) mGycm TECHNIQUE: The patient was scanned in a multi detector CT scanner. Sagittal and coronal images were reconstructed. Individualized dose optimization techniques were used for this CT. COMPARISON: None. FINDINGS: Normal soft tissue structures. Normal orbital lozano and orbital contents. Normal nasal bones and anterior nasal spine. Normal facial bones. There is no demonstrated fracture. Normal visualized paranasal sinuses. CT/Sinus/Facial Bone IMPRESSION: Normal unenhanced CT of the facial bones. Electronically Signed: Delicia Barrera MD at 14:35 EST Tel , Service support ,
--- NOTE | 2020-08-17 12:23 | CT_ITS ---
STUDY: CT BRAIN WITHOUT CONTRAST REASON FOR EXAM: Female, 65 years old. fall trauma RADIATION DOSAGE (If Supplied By Facility): CTDIvol = ( 60.81 ) mGy, DLP = ( 998.67 ) mGycm TECHNIQUE: Transaxial CT imaging of the brain was performed without administration of intravenous contrast material. Individualized dose optimization techniques were used for this CT. COMPARISON: No relevant priors. FINDINGS: Normal soft tissue structures. Normal calvarium. Normal size ventricles and extra-axial spaces for the patient''s age. There are areas of decreased attenuation within the white matter tracts of the supratentorial brain, consistent with microvascular disease changes. Normal basal ganglia and thalami. Normal brainstem. Normal cerebellum. There is no intracranial hemorrhage. There are no findings of an acute ischemic infarction. Normal visualized paranasal sinuses. CT/Brain/Head without Contrast IMPRESSION: Chronic involutional changes of the brain. Electronically Signed: Delicia Barrera MD at 14:20 EST Tel , Service support ,
--- NOTE | 2020-08-17 12:25 | ED.DCSUM_ITS ---
History of Present Illness Chief Complaint: Fall Informant: Patient, Friend Occurred: Today Mechanism/Context: Same level fall Usually ambulates: Without assistance Location: face Quality of Pain: - - sore Current Severity: Moderate Maximum Severity: Moderate Worsened by: palpation Relieved by: leaving alone Associated Symptoms: Negative for: Parasthesias, Weakness, Loss of function, Inability to ambulate, Loss of consciousness, Amnesia Narrative: Patient states she was carrying a heavy laundry basket walking down a gentle downgrade driveway, and she states my mind told me to run and as a result she lost her step and fell forward landing flat on her face versus the concrete. She did not have loss of consciousness. She states she had a mole/nevus on the tip of her nose that got scraped off as a result of this fall. She had some m inor bleeding from there but nowhere else including inside of her nose. She has a headache, she said she feels a little off, but does not feel like she was injured otherwise. She fell to both of her knees but she is able to ambulate since then without any difficulty or pain there. She denies any neck or back pain, no focal neurologic symptoms or changes in her vision. She takes a baby aspirin daily but no anticoagulants. - Past Medical History (1) Anxiety and depression Status: Chronic (2) Atherosclerotic heart disease of [place] coronary artery without angina pectoris Status: Chronic Comment: 05/26/2015 @ [facility] per Dr. Boggs: mild nonobstructive CAD (3) Chronic systolic (congestive) heart failure Status: Chronic (4) Diabetes mellitus, type II Status: Chronic (5) Essential hypertension Status: Chronic (6) Nonrheumatic mitral (valve) insufficiency Status: Chronic Comment: moderate (2+) per echo 01/13/2016 (7) NICOLLE (obstructive sleep apnea) Status: Chronic (8) Pure hypercholesterolemia Status: Chronic Past Medical History - Allergies and Home Meds Allergies/Adverse Reactions: Allergies red dye Allergy (Verified 08/17/20 11:40) Hives Ujzaxog-Yye-Wds Reductase Inhibitor Adverse Reaction (Severe, Verified 08/17/20 11:40) Myalgias Primary Care Physician: [facility],Yary Chambers [Primary Care Provider] - 1 Week if not improving Surgical History: - - Hysterectomy, bilateral breast reduction, left eye surgery for tumor, bilateral foot surgery, AICD. Smoking Status: Former smoker - Family History Maternal Family History: Family History (Last Reviewed 07/23/20 @ 13:11 by Kaye Pierson) Father Lung cancer Mother Breast cancer Brother Cancer Family History: Reports: Diabetes, Heart Disease, Hypertension Paternal Family History: Family History (Last Reviewed 07/23/20 @ 13:11 by Kaye Pierson) Father Lung cancer Mother Breast cancer Brother Cancer Family History: Reports: Diabetes, Heart Disease, Hypertension Review of Systems General: Denies: Chills, Fever, Sweats Eyes: Denies: Visual changes - bilaterally, Diplopia ENT: Reports: - - Diffuse facial pain. Denies: Bilateral ear pain, Rhinorrhea, Sore throat Cardiovascular: Denies: Chest pain, Palpitations Respiratory: Denies: Dyspnea, Cough, Dyspnea on exertion Gastrointestinal: Denies: Abdominal pain, Nausea, Vomiting, Diarrhea, Melena, Hematochezia Genitourinary: Denies: Dysuria, Hematuria, Frequency Musculoskeletal: Denies: Neck pain, Back pain, Extremity Pain Skin: Denies: Rash, Wounds Neurological: Reports: Headache. Denies: Weakness, Numbness Physical Exam Vital Signs/Narrative: Vital Signs Temp Pulse Resp BP Pulse Ox 08/17/20 11:37 97.9 F 60 18 140/72 H 98 Inital Vital Signs reviewed: Yes General: Well nourished, Well developed, Obese, - - Keenly alert, oriented x3, no distress. GCS 15. Head: Normocephalic, Atraumatic Eyes: Perrl, EOMI - Without pain or extraocular entrapment ENT: TM's clear, No hemotympanum or drainage, - - No evidence of trauma except for an abrasion at the tip of the nose, bleeding is controlled. No deformities. Diffuse bony facial tenderness, mild. No midfacial instability. No dental injury. No trismus. Neck: Nontender, Full ROM Cardiovascular: Regular rate, Regular rhythm, No murmurs Respiratory: No distress, CTA bilaterally, Chest nontender Abdomen: Soft, Nontender, Nondistended Extremeties: Full range of motion throughout all 4 extremities, atraumatic, no abrasions or bony tenderness. Skin: Normal color, No rash, Trauma - Only evidence of trauma is a superficial abrasion at the tip of the nose Neurological: Alert, Oriented x3, Cranial nerves II-XII grossly intact, Normal Strength, Normal Sensation, Normal Gait Psychological: Normal Mood, - - Anxious Diagnostic/Tx/Re-eval Clinical Impression(s) from Imaging Studies Brain CT 08/17/20 12:23 IMPRESSION: Chronic involutional changes of the brain. Electronically Signed: Delicia Barrera MD at 14:20 EST Tel , Service support , Facial/Sinus 08/17/20 12:23 IMPRESSION: Normal unenhanced CT of the facial bones. Electronically Signed: Delicia Barrera MD at 14:35 EST Tel , Service support , - Medical Decision Making As above, CT of the head and facial bones are negative for anything acute. Chronic changes are seen, namely basal ganglia calcifications which looks similar to prior scan of 2011. On reexamination after Tylenol, the patient's headache is better and she is mentating well, and improved. She is reassured, the abrasion was cleansed, and given follow-up instructions and reasons to return. She is comfortable with that plan. ED Disposition - Plan for ED Patient: Disposition: Home or Assisted Living Diagnosis: Facial contusion, Nasal abrasion, Closed head injury without concussion Instructions: ED Head Injury (Adult) Referrals: [facility],Yary Chambers [Primary Care Provider] - 1 Week if not improving Additional Instructions: Tylenol as needed for headaches/pain
[2020-08-17] MEDS: Acetaminophen 500 MG Tablet 1000 MG PO (12:53)
[2020-08-17 14:10] VITALS: RESP 17
== END 2020-08-17 15:16 | disposition home or self-care (01) ==
PROVIDERS: Emergency Provider Emergency Medicine
DX: S00.83XA Contusion of other part of head, initial encounter (principal); S00.31XA Abrasion of nose, initial encounter; W17.81XA Fall down embankment (hill), initial encounter; Y93.01 Activity, walking, marching and hiking; I25.10 Atherosclerotic heart disease of native coronary artery without angina pectoris; I11.0 Hypertensive heart disease with heart failure; I50.22 Chronic systolic (congestive) heart failure; E11.9 Type 2 diabetes mellitus without complications; E78.00 Pure hypercholesterolemia, unspecified; F41.9 Anxiety disorder, unspecified; F32.9 Major depressive disorder, single episode, unspecified; G47.33 Obstructive sleep apnea (adult) (pediatric); E66.9 Obesity, unspecified; Z87.891 Personal history of nicotine dependence; Z95.810 Presence of automatic (implantable) cardiac defibrillator; Z79.82 Long term (current) use of aspirin
CPT/HCPCS: 70450; 70486; 99282

== ENCOUNTER → 2020-10-20 12:08 | Outpatient (CLI) | payer MEDICARE, OTHER, SELFPAY ==
--- NOTE | 2020-10-20 12:12 | BI_ITS ---
MAMMOGRAPHY - BILATERAL SCREENING REASON FOR EXAM: Female, 65 years old. Routine annual screening examination. PERTINENT HISTORY: Mother with breast cancer. History of prior bilateral breast reduction surgery. TECHNIQUE: Digital bilateral breast vic (3D mammographic acquisition) in the CC and MLO projections. 2-D mediolateral oblique (MLO) and craniocaudad (CC) views of both breasts were obtained. CAD: Full Field Digital Mammography with Computer Added Detection was performed. COMPARISON: Comparison is made with prior examination in 03/25/2019 and 02/20/2013. FINDINGS: Breast Composition: The breasts are almost entirely fatty. There are no dominant masses or suspicious calcifications. A battery pack from a pacemaker is seen in the left axillary region. No other significant abnormalities are identified. There has been no significant change since the prior study. BI/SCRN MAMM (CAD)W/VIC BILAT IMPRESSION: Stable bilateral screening mammogram. Yearly follow-up mammogram recommended. (A) ASSESSMENT CATEGORY: BIRADS Category 2: Benign. A letter regarding these results will be sent to the patient by the facility within 30 days. Approximately 10% of breast cancers are not detected by mammography. A normal mammogram should not delay biopsy of a clinically suspicious abnormality. [id number] Electronically Signed: Macho Majano MD at 12:58 EDT , Service support ,
--- NOTE | 2020-10-20 12:37 | RAD_ITS ---
STUDY: X-RAY - LUMBAR SPINE REASON FOR EXAM: Female, 65 years old. LUMBAGO WITH SCIATICA RIGHT SIDE TECHNIQUE: 3 view(s) of the lumbar spine were obtained. COMPARISON: FINDINGS: Normal lumbar lordosis. There is no substantial scoliosis. There is a normal alignment of the vertebrae. Normal vertebral bodies and endplates. Normal disc space heights. Facet hypertrophy in the lower lumbar spine consistent with degenerative disc disease. The soft tissue structures are unremarkable. RAD/Lumbar Spine 2 or 3 Views IMPRESSION: Facet hypertrophy in the lower lumbar spine consistent with degenerative disc disease. MRI may be useful. Electronically Signed: Shahram Capps MD at 13:10 EDT Tel , Service support ,
--- NOTE | 2020-10-20 12:37 | RAD_ITS ---
STUDY: X-RAY - PELVIS AND RIGHT HIP REASON FOR EXAM: Female, 65 years old. PAIN IN RIGHT HIP -- R TECHNIQUE: 3 views of the pelvis and hip. COMPARISON: 07/19/2018 FINDINGS: There is a non-specific bowel gas pattern. Normal visualized soft tissue structures. Normal bilateral iliac wings, sacroiliac joints and visualized sacrum. Normal bilateral superior and inferior pubic rami. Normal pubic symphysis. Normal bilateral ischial tuberosities. Normal visualized femoral head. Normal acetabulum. Normal hip joint. RAD/HIP, UNI W/ Pelvis 2-3 Views IMPRESSION: Normal x-ray examination of the pelvis and hip. Electronically Signed: Shahram Capps MD at 13:09 EDT Tel , Service support ,
== END ==
PROVIDERS: Referring Provider Nurse Practitioner Adult Health; Visit Provider Nurse Practitioner Adult Health
DX: Z12.31 Encounter for screening mammogram for malignant neoplasm of breast (principal); Z80.3 Family history of malignant neoplasm of breast; M54.41 Lumbago with sciatica, right side; M25.551 Pain in right hip
CPT/HCPCS: 72100; 73502; 77063; 77067

== ENCOUNTER → 2020-11-26 10:50 | Outpatient (CLI) | payer MEDICARE, OTHER, SELFPAY ==
--- NOTE | 2020-11-26 11:30 | MRI_ITS ---
STUDY: MRI LUMBAR SPINE WITHOUT CONTRAST REASON FOR EXAM: Female, 65 years old. LUMBAGO with RIGHT sciatic TECHNIQUE: Standardized fat and water weighted pulse sequences were obtained in the sagittal and axial planes. COMPARISON: 07/19/2018 FINDINGS: T12-L1: Normal endplates. Normal disc height, hydration and morphology. Normal bilateral facet joints. Normal central canal and bilateral lateral recesses. Normal bilateral intervertebral neural foramina. Normal lumbar lordosis. There is no substantial scoliosis. Normal conus medullaris that terminates at the L1. L1-2: Normal endplates. Normal disc height, hydration and morphology. Normal bilateral facet joints. Normal central canal and bilateral lateral recesses. Normal bilateral intervertebral neural foramina. L2-3: Normal endplates. Normal disc height, hydration and morphology. Normal bilateral facet joints. Normal central canal and bilateral lateral recesses. Normal bilateral intervertebral neural foramina. L3-4: Some disc desiccation but no disc protrusion, spinal stenosis, or neural foraminal stenosis. L4-5: Some disc desiccation but no disc protrusion, spinal stenosis, or neural foraminal stenosis. L5-S1: Mild right facet hypertrophy with a anteriorly extending 5 mm capsular synovial cyst produces mild right lateral recess stenosis with abutment of the lateral aspect of the right S1 nerve root but no neural foraminal stenosis. Normal visualized sacral ala. Normal visualized paraspinous soft tissue structures. MRI/Spine Lumbar (Routine) IMPRESSION: Multilevel degenerative changes, as described above. Electronically Signed: Shahram Capps MD at 12:54 EDT Tel , Service support ,
[2020-11-26 11:49] VITALS: BP 109/37; PULSE 67; RESP 16; O2SAT 97
[2020-11-26 12:10] VITALS: BP 124/68; PULSE 66; RESP 16; O2SAT 95
== END ==
PROVIDERS: PCP Nurse Practitioner Adult Health; Referring Provider Nurse Practitioner Adult Health; Visit Provider Nurse Practitioner Adult Health
DX: M54.41 Lumbago with sciatica, right side (principal)
CPT/HCPCS: 72148

== ENCOUNTER → 2021-01-18 11:21 | Outpatient (CLI) | payer MEDICARE, OTHER, SELFPAY ==
[2021-01-18 12:21] LABS: Microalbumin,Random Urine 44.2 mg/L (NO RANGE EST.); Microalbumin:Creatinine Ratio 224.4 mg/g CRE (<30 mg/g CRE)
[2021-01-18 12:25] LABS: ALB/GLOB Ratio 0.9 RATIO (0.9-2.4); AST(SGOT) 10 U/L (15-37); Alanine Aminotransfer ALT/SGPT 19 U/L (13-56); Albumin, Serum 3.5 g/dL (3.2-5.0); Alkaline Phosphatase 75 U/L (45-117); Anion Gap 6 (5-15); BUN 28 mg/dL (7-18); BUN/Creat Ratio 26.7 RATIO (10-20); Chloride 102 mmol/L (98-107); Cholesterol 262 mg/dL (200); Creatinine, Serum 1.05 mg/dL (0.55-1.02); EST Glomerular Filtration Rate 56 mL/min (>60); Est Glom Filt Rate - Afr Amer 67 mL/min (>60); Globulin 3.7 g/dL (2.2-4.2); Glucose 105 mg/dL (74-106); High Density Lipoprotein 54 mg/dL; Potassium 4.6 mmol/L (3.5-5.1); Protein, Total 7.2 g/dL (6.4-8.2); Sodium Level 138 mmol/L (136-145); Triglycerides 254 mg/dL; Very Low Density Lipoprotein 51 mg/dL (5-40)
[2021-01-18 15:16] LABS: Vitamin D,25 Hydroxy 46.7 ng/mL
== END ==
PROVIDERS: Referring Provider Nurse Practitioner Adult Health; Visit Provider Nurse Practitioner Adult Health
DX: E11.65 Type 2 diabetes mellitus with hyperglycemia (principal); E11.42 Type 2 diabetes mellitus with diabetic polyneuropathy; E55.9 Vitamin D deficiency, unspecified
CPT/HCPCS: 36415; 80053; 80061; 82043; 82306; 82570

== ENCOUNTER 2022-06-01 08:50 | Emergency (ER) | payer MEDICARE, OTHER, SELFPAY ==
[2022-06-01 08:51] VITALS: BP 170/94; PULSE 71; RESP 18; TEMP 36.4; O2SAT 96; BMI 38.2
--- NOTE | 2022-06-01 09:04 | EX.ED.DYSGE1 ---
HPI History of Present Illness Chief Complaint: General Illness Informant: patient and spouse/S.O. Onset/Context/Timing Onset: Today Context: Gradual Onset Timing: Continuous Current Severity: Mild Maximum Severity: Mild Narrative Narrative: 66-year-old female history of CHF, cardiomyopathy, AR, pacemaker defibrillator and insulin-dependent diabetes. Today as had nausea vomiting. No fever. Started with symptoms yesterday worse today. No recent hospitalization. No dysuria. Unsure of her blood sugar levels today. No significant abdominal pain. Prior similar symptoms: Yes Recent Illness/Hospitalization: No PFSH PFSH Medical History Abnormal electrocardiogram BALWINDER (acute kidney injury) Atherosclerotic heart disease of [place] coronary artery without angina pectoris Carotid artery disease Chronic systolic (congestive) heart failure Diabetes mellitus, type II Dilated cardiomyopathy Essential hypertension Hyperlipidemia Hypertension Nonrheumatic mitral (valve) insufficiency Obesity (BMI 30-39.9) NICOLLE (obstructive sleep apnea) Pure hypercholesterolemia Systolic CHF, acute Vertigo Home Medications gabapentin 300 mg capsule 600 mg PO QHS NERVE PAIN 01/12/16 [History Last Taken 10/25/19 20:00] aspirin 81 mg tablet,delayed release 81 mg PO DAILY@0800 HEALTH MAINTENANCE 01/26/17 [History Last Taken 10/25/19 20:00] carvedilol 12.5 mg tablet 12.5 mg PO BID BLOOD PRESSURE/HEART 01/26/17 [History Last Taken 10/25/19 20:00] cholecalciferol (vitamin D3) 50 mcg (2,000 unit) capsule 2,000 unit PO PAYNE SUPPLEMENT 01/26/17 [History Last Taken 10/19/19] fluoxetine 40 mg capsule (Prozac) 40 mg PO DAILY depression 11/01/18 [History Last Taken 10/25/19 08:00] furosemide 20 mg tablet 20 mg PO DINNER water pill 11/01/18 [History Last Taken 10/25/19 14:00] furosemide 40 mg tablet 40 mg PO BREAKFAST 04/30/20 [History Last Taken Unknown] bupropion HCl 150 mg 24 hr tablet, extended release 150 mg PO QAM 07/23/20 [History Last Taken Unknown] cetirizine 10 mg tablet (Zyrtec) 10 mg PO DAILY PRN Allergies 07/23/20 [History Last Taken Unknown] magnesium chloride 71.5 mg (magnesium chloride) tablet,delayed release (Slow-Mag) 71.5 mg PO DAILY 07/23/20 [History Last Taken Unknown] meclizine 25 mg tablet 25 mg PO TID PRN dizziness 07/23/20 [History Last Taken Unknown] omeprazole 20 mg tablet,delayed release 20 mg PO DAILY 07/23/20 [History Last Taken Unknown] amlodipine 5 mg tablet 5 mg PO DAILY 08/17/20 [History Last Taken Unknown] ezetimibe 10 mg tablet (Zetia) 10 mg PO DAILY #30 tabs 01/20/21 [Rx Last Taken Unknown] sacubitril 97 mg-valsartan 103 mg tablet (Entresto) 1 tab PO BID #180 tabs 08/23/21 [Rx Last Taken Unknown] insulin aspart U-100 100 unit/mL (3 mL) subcutaneous pen 2 unit subcut .COMPLEX Diabetes 01/12/22 [History Last Taken Unknown] insulin detemir U-100 100 unit/mL (3 mL) subcutaneous pen 50 unit subcut DINNER 01/12/22 [History Last Taken Unknown] insulin detemir U-100 100 unit/mL (3 mL) subcutaneous pen 60 unit subcut BREAKFAST Diabetes 01/12/22 [History Last Taken Unknown] Handicap Parking Placard #1 ea 05/09/22 [Rx Last Taken Unknown] ondansetron 4 mg disintegrating tablet 4 mg PO Q6H PRN nausea and vomiting #7 tabs 06/01/22 [Rx Last Taken Unknown] Allergy/AdvReac Type Severity Reaction Status Date / Time red dye Allergy Hives Verified 06/01/22 08:50 Sdqaizu-JTY-PxR Reductase AdvReac Severe Myalgias Verified 06/01/22 08:50 Inhibitor [Njnhnlt-Ahj-Yed Reductase Inhibitor] Family History Father , Lung cancer Lung cancer Mother , Breast cancer Breast cancer Brother Cancer lymphoma Surgical History Cardiac defibrillator in situ History of bilateral breast reduction surgery History of bilateral foot surgery History of eye surgery History of hysterectomy History of left heart catheterization (LHC) (~05/26/15) S/P hysterectomy Status post breast reduction Status post foot surgery Social History Smoking Status: Former smoker quit date: 06/11/06 alcohol intake: never substance use type: does not use caffeine: No what type of physical activity do you participate in: none seatbelt use: always do you feel safe at home: Yes ROS ROS ED ROS Narrative Nausea and vomiting. Review of Systems ROS Unobtainable: Denies due to encephalopathy Constitutional Constitutional ED: Denies chills or fever(s) Eyes Eyes: Denies blurry vision ENT ENT ED: Denies ear pain, rhinorrhea or sore throat Cardiovascular Cardiovascular: Denies chest pain Respiratory/Chest Respiratory/Chest: Denies cough or dyspnea Gastrointestinal Gastrointestinal: Reports nausea and vomiting; Denies abdominal pain, constipation, diarrhea or melena Genitourinary Genitourinary ED: Denies dysuria or hematuria Musculoskeletal Musculoskeletal: Denies arthralgias Integumentary Denies abscess Neurologic Neurologic: Denies headache(s) Psychiatric Psychiatric: Denies anxiety Endocrine Endocrinology: Denies cold intolerance Hematologic/Lymphatic Hematologic/Lymphatic: Reports none Allergic/Immunologic Allergic/Immunologic ED: Denies mouth swelling or tongue swelling EXAM Physical Exam Narrative Exam Narrative: 66-year-old female no acute distress. Vital signs stable afebrile. She does not look septic or toxic. H EENT exam unremarkable. Moist Ri[place] members. Neck nontender no lymphadenopathy. Lungs clear to auscultation bilaterally. Heart regular rhythm rate about 70 no murmur. Abdomen soft nontender, nondistended, no peritoneal signs. Positive bowel sounds.. Moving all 4 extremities. Calves are nontender without edema. Neurologically she is awake and alert. No focal motor deficits. Const Vital Signs: 06/01/22 08:51 06/01/22 08:57 Temperature 97.6 F L Temperature Source Temporal Pulse Rate 71 Respiratory Rate 18 Respiratory Effort Normal Respiratory Pattern Normal Blood Pressure 170/94 H Blood Pressure Mean 119 Pulse Ox 96 Oxygen Delivery Method Room Air Positive well nourished, well developed and obese; Negative for cachectic, contractures or unkempt General Appearance ED: well developed and NAD; Negative for unkempt, cachectic, contractures, cyanotic, diaphoretic or pallor Nutritional Appearance: obese; Negative for cachectic HEENT Reports moist mucous membranes; Denies dry mucous membranes Negative for trauma or tenderness Mouth ED: No dry mucous membranes Mouth: No dry mucous membranes Eyes PERRL and EOMs intact bilaterally General Eye ED: Negative for pale conjunctiva or scleral icterus Neck no lymphadenopathy, supple and no JVD General: Negative for tenderness Lymph Lymphatic: Negative for other Chest Wall inspection of chest normal and palpation of chest normal Chest: Negative for other Resp normal respiratory effort and clear to auscultation bilaterally Effort and Inspection: Negative for retractions Auscultation: Negative for rales, rhonchi or wheezes Cardio regular rate, regular rhythm, S1 normal heart sound, S2 normal heart sound and no murmurs Rate: Negative for bradycardia Rhythm: Negative for abnormal rhythm GI normal to inspection, nondistended, normoactive bowel sounds, non-tender, non-distended and no masses Inspection: Negative for abdominal distention Auscultation: normoactive bowel sounds Palpation: soft; Negative for tender or guarding Back/Spine no CVA tenderness General Back: Negative for CVA tenderness Cervical Spine: Negative for cervical spine tenderness Thoracic Spine / Upper Back: Negative for thoracic spinal tenderness Lumbar Spine / Lower Back: Negative for lumbar spinal tenderness Extremity normal to inspection General Extremety ED: Negative for edema or tenderness General Extremity: Negative for edema Neuro oriented x3, CN's II-XII intact bilaterally and no sensory deficits noted Sensorium / Orientation: alert; Negative for orientation impaired, lethargic or stuporous Motor Exam: strength 5/5 throughout Psych mental status grossly normal Appearance: Negative for unkempt Attitude: No agitated Mood & Affect: Negative for depressed, anxious or tearful Skin no rashes or lesions noted, no wounds and skin turgor normal General Skin Exam: Negative for elasticity normal, jaundice or pallor Lesions: No lesion noted Rashes: No rashes noted Trauma: Negative for abrasion Wounds: Negative for wounds noted MDM MDM MDM Narrative Medical decision making narrative: 66-year-old female suspect viral syndrome. Treated with IV fluids and IV Zofran. P.o. fluid challenge. Screening labs are being obtained. I will obtain a COVID and influenza test. Repeat exam at 12:17 PM. Patient doing well. [place] better after the Zofran. Did not want any more at this time. Was able to drink p.o. fluids while she was here. We went over her test results. Her and her are comfortable with her being discharged home. I will send her in a prescription for Zofran to the pharmacy. Fluids and rest. Tylenol. Return if worse. Follow-up to ensure she is improving. Lab Data Attestation: I reviewed the patient's lab results. Lab results narrative: CBC unremarkable white count of 7.4. H&H of 14 and 44. Electrolytes sodium 134 gap is 6 normal BUN of 13 creatinine 0.97. Glucose elevated 318. She is diabetic. Liver enzymes unremarkable. Influenza A is positive. COVID-negative. Labs: Laboratory Results - last 24 hr 06/01/22 06/01/22 09:00 09:00 WBC 7.4 RBC 5.01 Hgb 14.8 Hct 44.4 MCV 88.6 MCH 29.5 MCHC 33.3 RDW Std Deviation 41.5 RDW Coeff of Ivet 12.8 Plt Count 254 MPV 9.3 Immature Gran % (Auto) 0.700 Neut % (Auto) 61.0 Lymph % (Auto) 26.4 Sebastian % (Auto) 9.6 Eos % (Auto) 1.6 Baso % (Auto) 0.7 Absolute Neuts (auto) 4.5 Absolute Lymphs (auto) 1.95 Nucleated RBC % 0 Sodium 134 L Potassium 4.3 Chloride 104 Carbon Dioxide 24.0 Anion Gap 6 BUN 13 Creatinine 0.97 Estim Creat Clear Calc 49.95 Est GFR (MDRD) Af Amer 73 Est GFR (MDRD) Non-Af 60 BUN/Creatinine Ratio 13.4 Glucose 318 H Calcium 9.0 Total Bilirubin 0.90 AST 12 L ALT 24 Alkaline Phosphatase 124 H Total Protein 7.0 Albumin 3.4 Globulin 3.6 Albumin/Globulin Ratio 0.9 Discharge Plan Triage Chief Complaint: General Illness ED Provider: Antonio Herr Dx/Rx/DC Orders Clinical Impression: Influenza A, Nausea & vomiting, Hyperglycemia due to diabetes mellitus Instructions: ED Influenza (Adult), ED Vomiting (Adult) Prescriptions: New ondansetron 4 mg tablet,disintegrating 4 mg PO Q6H PRN (Reason: nausea and vomiting) Qty: 7 0RF No Action fluoxetine [Prozac] 40 mg capsule 40 mg PO DAILY furosemide 20 mg tablet 20 mg PO DINNER Label Comments: 20 mg PO 40mg in the am and 20mg in the pm; Rx Instructions: 20 mg PO 40mg in the am and 20mg in the pm; cetirizine [Zyrtec] 10 mg tablet 10 mg PO DAILY PRN (Reason: Allergies) bupropion HCl 150 mg tablet extended release 24 hr 150 mg PO QAM omeprazole 20 mg tablet,delayed release (DR/EC) 20 mg PO DAILY meclizine 25 mg tablet 25 mg PO TID PRN (Reason: dizziness) Slow-Mag 71.5 mg tablet,delayed release (DR/EC) 71.5 mg PO DAILY ezetimibe [Zetia] 10 mg tablet 10 mg PO DAILY Qty: 30 6RF gabapentin 300 MG capsule 600 mg PO QHS Label Comments: nerve pain carvedilol 12.5 MG tablet 12.5 mg PO BID Label Comments: blood pressure aspirin 81 MG tablet 81 mg PO DAILY@0800 Label Comments: [facility] cholecalciferol (vitamin D3) 2,000 UNIT capsule 2,000 unit PO PAYNE insulin detemir U-100 100 unit/mL (3 mL) insulin pen 60 unit SC BREAKFAST insulin aspart U-100 100 unit/mL (3 mL) insulin pen 2 unit SC .COMPLEX Rx Instructions: 2 units subcutaneously 8 units in AM, 10 units lunch, 12 dinner; furosemide 40 MG tablet 40 mg PO BREAKFAST amlodipine 5 MG tablet 5 mg PO DAILY insulin detemir U-100 100 unit/mL (3 mL) insulin pen 50 unit subcut DINNER Entresto 97-103 mg tablet 1 tab PO BID Qty: 180 3RF (DME) Handicap Parking Placard See Rx Instructions .Route .MEDSUPPLY Qty: 1 0RF Rx Instructions: As directed Primary Care Provider: Yary Chambers Referrals: Yary Chambers [Primary Care Provider] - 3-5 Days if not improving Activity Restrictions/Additional Instructions: Plenty of fluids and rest. Gatorade, water and 7-Up. Increase your diet slowly as tolerated. Zofran as needed for nausea. You may swallow it or let dissolve on your tongue. Tylenol as needed. Follow-up with your doctor to ensure you are improving. Return if you are feeling worse. Disposition Disposition: Home, Self Care
[2022-06-01] MEDS: 0.9% Normal Saline 1,000 ML 1000 ML IV (09:06)
[2022-06-01] MEDS: Ondansetron 4 MG/2 ML Vial IV (09:06)
[2022-06-01 09:28] LABS: Absolute Lymphocyte Count 1.95 X10^3/uL (0.83-4.51); Absolute Neutrophil Count 4.5 X10^3/uL (2.0-7.7); Basophil# 0.05 X10^3/uL; Basophil% 0.7 % (0-1); Eosinophil# 0.12 X10^3/uL; Eosinophils% 1.6 % (0-5); Hematocrit 44.4 % (37-47); Hemoglobin 14.8 g/dL (12.0-15.0); Lymphocyte # 1.95 X10^3/ul (0.83-4.51); Lymphocyte % 26.4 % (19-41); Mean Corp Hgb Conc 33.3 g/dL (32-36); Mean Corpuscular Hgb 29.5 pg (27.0-32.0); Mean Corpuscular Volume 88.6 fL (81-99); Mean Platelet Vol. 9.3 fl (6.2-12.0); Monocyte# 0.71 X10^3/uL; Monocyte% 9.6 % (0-10); NRBC Flagged by Analyzer 0 % (0-5); Neutrophil # 4.51 X10^3/uL (2.7-7.7); Platelet Count 254 K/mm3 (150-450); RBC Distribution Width CV 12.8 % (11.6-14.6); RBC Distribution Width SD 41.5 fl (35.1-43.9); Red Blood Count 5.01 M/mm3 (4.2-5.4); White Blood Count 7.4 K/mm3 (4.4-11.0)
[2022-06-01 09:41] LABS: ALB/GLOB Ratio 0.9 RATIO (0.9-2.4); AST(SGOT) 12 U/L (15-37); Alanine Aminotransfer ALT/SGPT 24 U/L (13-56); Albumin, Serum 3.4 g/dL (3.2-5.0); Alkaline Phosphatase 124 U/L (45-117); Anion Gap 6 (5-15); BUN 13 mg/dL (7-18); BUN/Creat Ratio 13.4 RATIO (10-20); Chloride 104 mmol/L (98-107); Creatinine, Serum 0.97 mg/dL (0.55-1.02); EST Glomerular Filtration Rate 60 mL/min (>60); Est Glom Filt Rate - Afr Amer 73 mL/min (>60); Estimated Creatinine Clearance 49.95 ml/min; Globulin 3.6 g/dL (2.2-4.2); Glucose 318 mg/dL (74-106); Potassium 4.3 mmol/L (3.5-5.1); Sodium Level 134 mmol/L (136-145)
== END 2022-06-01 12:46 | disposition home or self-care (01) ==
PROVIDERS: Emergency Provider Emergency Medicine; Visit Provider Emergency Medicine
DX: E11.65 Type 2 diabetes mellitus with hyperglycemia (principal); I11.0 Hypertensive heart disease with heart failure; I50.22 Chronic systolic (congestive) heart failure; E78.5 Hyperlipidemia, unspecified; J10.1 Influenza due to other identified influenza virus with other respiratory manifestations; R11.2 Nausea with vomiting, unspecified; I25.10 Atherosclerotic heart disease of native coronary artery without angina pectoris; Z87.891 Personal history of nicotine dependence; E66.9 Obesity, unspecified
CPT/HCPCS: 80053; 85025; 87428; 96361; 96374; 99283; J2405

== ENCOUNTER → 2022-07-31 | Outpatient (CLI) | payer MEDICARE, SELFPAY ==
[2022-07-31 10:15] LABS: Hematocrit 45.7 % (37-47); Hemoglobin 14.9 g/dL (12.0-15.0); Mean Corp Hgb Conc 32.6 g/dL (32-36); Mean Corpuscular Hgb 29.4 pg (27.0-32.0); Mean Corpuscular Volume 90.1 fL (81-99); Mean Platelet Vol. 9.4 fl (6.2-12.0); Platelet Count 349 K/mm3 (150-450); RBC Distribution Width CV 12.6 % (11.6-14.6); RBC Distribution Width SD 41.1 fl (35.1-43.9); Red Blood Count 5.07 M/mm3 (4.2-5.4); White Blood Count 7.6 K/mm3 (4.4-11.0)
[2022-07-31 10:47] LABS: ALB/GLOB Ratio 0.9 RATIO (0.9-2.4); AST(SGOT) 5 U/L (15-37); Alanine Aminotransfer ALT/SGPT 12 U/L (13-56); Albumin, Serum 3.5 g/dL (3.2-5.0); Alkaline Phosphatase 86 U/L (45-117); Anion Gap 11 (5-15); BUN 23 mg/dL (7-18); BUN/Creat Ratio 21.9 RATIO (10-20); Calcium,Total 9.1 mg/dL (8.5-10.1); Chloride 103 mmol/L (98-107); Creatinine, Serum 1.05 mg/dL (0.55-1.02); EST Glomerular Filtration Rate 55 mL/min (>60); Est Glom Filt Rate - Afr Amer 67 mL/min (>60); Globulin 3.8 g/dL (2.2-4.2); Glucose 270 mg/dL (74-106); Potassium 4.1 mmol/L (3.5-5.1); Protein, Total 7.3 g/dL (6.4-8.2); Sodium Level 138 mmol/L (136-145)
== END | disposition home or self-care (01) ==
DX: E11.42 Type 2 diabetes mellitus with diabetic polyneuropathy (principal)
CPT/HCPCS: 36415; 80053; 82043; 85027

== ENCOUNTER → 2022-09-27 | Outpatient (CLI) | payer MEDICARE, SELFPAY ==
--- NOTE | 2022-09-27 10:25 | BI_ITS ---
MAMMOGRAPHY - BILATERAL SCREENING REASON FOR EXAM: Female, 67 years old. Routine annual screening examination. PERTINENT HISTORY: Mother with breast cancer. History of prior bilateral breast reduction surgery. TECHNIQUE: Digital bilateral breast vic (3D mammographic acquisition) in the CC and MLO projections. 2-D mediolateral oblique (MLO) and craniocaudad (CC) views of both breasts were obtained. CAD: Full Field Digital Mammography with Computer Added Detection was performed. COMPARISON: Comparison is made with prior study October 20, 2020 and March 25, 2019. FINDINGS: Breast Composition: The breasts are almost entirely fatty. There are no dominant masses or suspicious calcifications. A battery pack from a pacemaker is seen in the left axillary region. No other significant abnormalities are identified. There has been no significant change since the prior study. BI/SCRN MAMM (CAD)W/VIC BILAT IMPRESSION: Stable bilateral screening mammogram. Yearly follow-up mammogram recommended. (A) ASSESSMENT CATEGORY: BIRADS Category 2: Benign. A letter regarding these results will be sent to the patient by the facility within 30 days. Approximately 10% of breast cancers are not detected by mammography. A normal mammogram should not delay biopsy of a clinically suspicious abnormality. [id number] Electronically Signed: Macho Majano MD at 11:40 EDT ,
== END | disposition home or self-care (01) ==
LOC: OPBI 10:23
PROVIDERS: Referring Provider Nurse Practitioner Women's Health; Visit Provider Nurse Practitioner Women's Health
DX: Z12.31 Encounter for screening mammogram for malignant neoplasm of breast (principal); Z80.3 Family history of malignant neoplasm of breast
CPT/HCPCS: 77063; 77067

== ENCOUNTER → 2022-10-02 | Outpatient (CLI) | payer MEDICARE, SELFPAY ==
[2022-10-02 14:57] LABS: Anion Gap 4 (5-15); BUN 19 mg/dL (7-18); BUN/Creat Ratio 19.1 RATIO (10-20); Calcium,Total 8.9 mg/dL (8.5-10.1); Chloride 103 mmol/L (98-107); EST Glomerular Filtration Rate 59 mL/min (>60); Est Glom Filt Rate - Afr Amer 71 mL/min (>60); Glucose 173 mg/dL (74-106); Potassium 4.1 mmol/L (3.5-5.1); Sodium Level 133 mmol/L (136-145)
== END | disposition home or self-care (01) ==
LOC: LAB 13:51
DX: N39.0 Urinary tract infection, site not specified (principal)
CPT/HCPCS: 36415; 80048

== ENCOUNTER 2022-11-22 13:32 | Emergency (ER) | payer MEDICARE, SELFPAY ==
[2022-11-22 13:34] VITALS: BP 103/87; PULSE 88; RESP 18; TEMP 36.9; O2SAT 97
--- NOTE | 2022-11-22 14:38 | ED.VIS.GI ---
HPI HPI - GI History of Present Illness Chief Complaint: Constipation Detail of Chief Complaint: Constipation Informant: patient Narrative Narrative: Patient presents with constipation that started about a week ago. Patient states she did have a bowel movement yesterday but it had been 7 days prior to that. Patient feels like she needs to have a bowel movement but cannot. She is having hard time urinating because of it. She has some rectal discomfort. She had no fever. She denies vomiting. She is not on any narcotic pain medicine although she did start a muscle relaxer for some neck pain about a week ago. [facility] Medical History (Updated 11/22/22 @ 15:[address] Rhea Barber, DO) Abnormal electrocardiogram BALWINDER (acute kidney injury) Atherosclerotic heart disease of [place] coronary artery without angina pectoris Carotid artery disease Chronic systolic (congestive) heart failure Diabetes mellitus, type II Dilated cardiomyopathy Essential hypertension Hyperlipidemia Hypertension Nonrheumatic mitral (valve) insufficiency Obesity (BMI 30-39.9) NICOLLE (obstructive sleep apnea) Pure hypercholesterolemia Systolic CHF, acute Vertigo Home Medications gabapentin 300 mg capsule 600 mg PO QHS NERVE PAIN 01/12/16 [History Last Taken 10/25/19 20:00] aspirin 81 mg tablet,delayed release 81 mg PO DAILY@0800 HEALTH MAINTENANCE 01/26/17 [History Last Taken 10/25/19 20:00] cholecalciferol (vitamin D3) 50 mcg (2,000 unit) capsule 2,000 unit PO PAYNE SUPPLEMENT 01/26/17 [History Last Taken 10/19/19] fluoxetine 40 mg capsule (Prozac) 40 mg PO DAILY depression 11/01/18 [History Last Taken 10/25/19 08:00] bupropion HCl 150 mg 24 hr tablet, extended release 150 mg PO QAM 07/23/20 [History Last Taken Unknown] cetirizine 10 mg tablet (Zyrtec) 10 mg PO DAILY PRN Allergies 07/23/20 [History Last Taken Unknown] magnesium chloride 71.5 mg (magnesium chloride) tablet,delayed release (Slow-Mag) 71.5 mg PO DAILY 07/23/20 [History Last Taken Unknown] meclizine 25 mg tablet 25 mg PO TID PRN dizziness 07/23/20 [History Last Taken Unknown] omeprazole 20 mg tablet,delayed release 20 mg PO DAILY 07/23/20 [History Last Taken Unknown] amlodipine 5 mg tablet 5 mg PO DAILY 08/17/20 [History Last Taken Unknown] ezetimibe 10 mg tablet (Zetia) 10 mg PO DAILY #30 tabs 01/20/21 [Rx Last Taken Unknown] insulin aspart U-100 100 unit/mL (3 mL) subcutaneous pen 2 unit subcut .COMPLEX Diabetes 01/12/22 [History Last Taken Unknown] insulin detemir U-100 100 unit/mL (3 mL) subcutaneous pen 50 unit subcut DINNER 01/12/22 [History Last Taken Unknown] insulin detemir U-100 100 unit/mL (3 mL) subcutaneous pen 60 unit subcut BREAKFAST Diabetes 01/12/22 [History Last Taken Unknown] Handicap Parking Placard #1 ea 05/09/22 [Rx Last Taken Unknown] ondansetron 4 mg disintegrating tablet 4 mg PO Q6H PRN nausea and vomiting #7 tabs 06/01/22 [Rx Last Taken Unknown] semaglutide 1 mg/dose (4 mg/3 mL) subcutaneous pen injector (Ozempic) 1 mg (0.75 mL) subcut QWEEK #3 mL 10/19/22 [Rx Last Taken Unknown] sacubitril 97 mg-valsartan 103 mg tablet (Entresto) 1 tab PO BID #180 tabs 10/20/22 [Rx Last Taken Unknown] carvedilol 25 mg tablet 25 mg PO BID #180 tabs 11/01/22 [Rx Last Taken Unknown] furosemide 20 mg tablet 20 mg PO .COMPLEX water pill #90 tabs 11/01/22 [Rx Last Taken Unknown] furosemide 40 mg tablet 40 mg PO BREAKFAST Pt takes 20 mg tablet at lunchtime #90 tabs 11/01/22 [Rx Last Taken Unknown] Allergy/AdvReac Type Severity Reaction Status Date / Time red dye Allergy Hives Verified 11/22/22 13:35 [id number]-DtS Reductase AdvReac Severe Myalgias Verified 11/22/22 13:35 Inhibitor [Stdrdxo-Cak-Mxz Reductase Inhibitor] Family History Father , Lung cancer Lung cancer Mother , Breast cancer Breast cancer Brother Cancer lymphoma Surgical History Cardiac defibrillator in situ History of bilateral breast reduction surgery History of bilateral foot surgery History of eye surgery History of hysterectomy History of left heart catheterization (LHC) (~05/26/15) S/P hysterectomy Status post breast reduction Status post foot surgery Social History Smoking Status: Former smoker quit date: 06/11/06 alcohol intake: never substance use type: does not use caffeine: No what type of physical activity do you participate in: none seatbelt use: always do you feel safe at home: Yes ROS ROS ED Review of Systems ROS Unobtainable: other Constitutional Constitutional ED: Reports lethargy; Denies chills, fever(s), sweats or weight loss Eyes Eyes: Denies blurry vision, change in vision or diplopia ENT ENT ED: Denies rhinorrhea or sore throat Cardiovascular Cardiovascular: Denies chest pain, orthopnea or racing heartbeat Respiratory/Chest Respiratory/Chest: Denies cough, dyspnea, dyspnea on exertion, orthopnea or sputum Gastrointestinal Gastrointestinal: Reports constipation; Denies abdominal pain, diarrhea, nausea or vomiting Genitourinary Genitourinary ED: Denies dysuria, hematuria or urinary frequency Musculoskeletal Musculoskeletal: Denies arthralgias, back pain, myalgias or neck pain Integumentary Denies abscess, Abrasions or rash Neurologic Neurologic: Denies headache(s) or weakness Psychiatric Psychiatric: Denies anxiety, depression or suicidal thoughts Endocrine Endocrinology: Denies polydipsia, polyphagia or polyuria Hematologic/Lymphatic Hematologic/Lymphatic: Denies easy bleeding, easy bruising or lymphadenopathy Allergic/Immunologic Allergic/Immunologic ED: Denies mouth swelling, tongue swelling or urticaria EXAM Physical Exam Const Vital Signs: 11/22/22 13:34 11/22/22 15:32 Temperature 98.5 F Temperature Source Temporal Pulse Rate 88 Respiratory Rate 18 18 Blood Pressure 103/87 H Blood Pressure Mean 92 Pulse Ox 97 Positive well nourished and well developed General Appearance ED: well developed and NAD HEENT Reports TM's clear and moist mucous membranes normocephalic and atraumatic; Negative for trauma or tenderness Tympanic Membrane ED: Yes TM's clear Eyes PERRL and EOMs intact bilaterally General Eye ED: Negative for pale conjunctiva or scleral icterus Neck no lymphadenopathy, supple and no JVD General: Negative for tenderness Chest Wall inspection of chest normal and palpation of chest normal Chest: Negative for tenderness Resp normal respiratory effort and clear to auscultation bilaterally Effort and Inspection: Negative for respiratory distress or pain with movement Auscultation: Negative for rhonchi, wheezes or diminished lung sounds Cardio regular rate, regular rhythm, S1 normal heart sound, S2 normal heart sound and no murmurs Peripheral Pulses: pulses 2+ throughout GI normal to inspection, nondistended, normoactive bowel sounds, soft to palpation, non-distended and no masses GI Narrative: Mild suprapubic tenderness on palpation. Patient does have on rectal exam a stool impaction. I was able to manually disimpact large amount of stool from the rectum. Back/Spine no CVA tenderness and no thoracic nor lumbar tenderness Extremity normal to inspection General Extremety ED: Negative for edema General Extremity: Negative for edema Neuro oriented x3, CN's II-XII intact bilaterally, no sensory deficits noted and gait normal Sensorium / Orientation: awake, alert, oriented to person, oriented to place and oriented to time Motor Exam: strength 5/5 throughout and strength abnormal Psych mental status grossly normal Skin no rashes or lesions noted and no wounds MDM MDM MDM Narrative Medical decision making narrative: We will obtain a KUB to evaluate for obstruction. Patient will be given a soapsuds enema. Prior to patient obtaining the soapsuds enema she was stimulated enough after my disimpaction that she actually was able to pass stool on her own. Patient had a KUB that on my interpretation shows no evidence of obstruction or other acute disease process. Patient will be discharged to home as she was feeling markedly improved. Patient advised to use MiraLAX and fruit juices. Patient to follow-up with her primary care physician in 3 to 5 days as needed. Radiography Diagnostic Testin view KUB obtained interpreted by myself as no evidence of acute disease process. No evidence of obstruction or free air. Patient had moderate amount of stool throughout the colon. Discharge Plan Triage Chief Complaint: Constipation ED Provider: Rhea Barber Dx/Rx/DC Orders Clinical Impression: Constipation, Fecal impaction in rectum Instructions: ED Constipation (Adult), ED Fecal Impaction, Treated Prescriptions: No Action fluoxetine [Prozac] 40 mg capsule 40 mg PO DAILY cetirizine [Zyrtec] 10 mg tablet 10 mg PO DAILY PRN (Reason: Allergies) bupropion HCl 150 mg tablet extended release 24 hr 150 mg PO QAM omeprazole 20 mg tablet,delayed release (DR/EC) 20 mg PO DAILY meclizine 25 mg tablet 25 mg PO TID PRN (Reason: dizziness) Slow-Mag 71.5 mg tablet,delayed release (DR/EC) 71.5 mg PO DAILY ezetimibe [Zetia] 10 mg tablet 10 mg PO DAILY Qty: 30 6RF Ozempic 1 mg/dose (4 mg/3 mL) pen injector 1 mg subcut QWEEK Qty: 3 3RF gabapentin 300 MG capsule 600 mg PO QHS Label Comments: nerve pain aspirin 81 MG tablet 81 mg PO DAILY@0800 Label Comments: [facility] cholecalciferol (vitamin D3) 2,000 UNIT capsule 2,000 unit PO PAYNE insulin detemir U-100 100 unit/mL (3 mL) insulin pen 60 unit SC BREAKFAST insulin aspart U-100 100 unit/mL (3 mL) insulin pen 2 unit SC .COMPLEX Rx Instructions: 2 units subcutaneously 8 units in AM, 10 units lunch, 12 dinner; amlodipine 5 MG tablet 5 mg PO DAILY insulin detemir U-100 100 unit/mL (3 mL) insulin pen 50 unit subcut DINNER ondansetron 4 mg tablet,disintegrating 4 mg PO Q6H PRN (Reason: nausea and vomiting) Qty: 7 0RF (DME) Handicap Parking Placard See Rx Instructions .Route .MEDSUPPLY Qty: 1 0RF Rx Instructions: As directed Entresto 97-103 mg tablet 1 tab PO BID Qty: 180 3RF furosemide 40 mg tablet 40 mg PO BREAKFAST Qty: 90 3RF furosemide 20 mg tablet 20 mg PO .COMPLEX Qty: 90 3RF Rx Instructions: 20 mg orally daily at lunchtime (takes a 40 mg tablet every morning); carvedilol 25 mg tablet 25 mg PO BID Qty: 180 3RF Rx Instructions: must administer with a meal/food Primary Care Provider: Yary Meza Referrals: [facility] Yary La [Primary Care Provider] - 3-5 Days Disposition Disposition: Home, Self Care
[2022-11-22 15:32] VITALS: RESP 18
--- NOTE | 2022-11-22 15:34 | ED.RN ---
PT HAD XL BM AND REFUSED ENEMA
--- NOTE | 2022-11-22 15:35 | RAD_ITS ---
STUDY: X-RAY - ABDOMEN/PELVIS REASON FOR EXAM: Female, 67 years old. constipation TECHNIQUE: Single AP view of the abdomen / pelvis. COMPARISON: None. FINDINGS: Normal visualized lung bases. There is an unremarkable bowel gas pattern. There is no demonstrated free abdominal air. The visualized liver, spleen and kidneys are grossly normal in size and morphology. Normal soft tissue structures. Normal visualized osseous structures. RAD/Abdomen Single View (Portable) IMPRESSION: Normal x-ray examination of the abdomen and pelvis. Electronically Signed: Ross Martinez MD at 17:17 EDT ,
== END 2022-11-22 15:52 | disposition home or self-care (01) ==
PROVIDERS: Emergency Provider Emergency Medicine; Visit Provider Emergency Medicine
DX: K56.41 Fecal impaction (principal); I11.0 Hypertensive heart disease with heart failure; I50.22 Chronic systolic (congestive) heart failure; E11.9 Type 2 diabetes mellitus without complications; E78.00 Pure hypercholesterolemia, unspecified; Z87.891 Personal history of nicotine dependence; I25.10 Atherosclerotic heart disease of native coronary artery without angina pectoris
CPT/HCPCS: 74018; 99284

== ENCOUNTER → 2022-12-27 | Outpatient (CLI) | payer MEDICARE, SELFPAY ==
[2022-12-27 09:15] LABS: Hematocrit 44.8 % (37-47); Hemoglobin 14.1 g/dL (12.0-15.0); Mean Corp Hgb Conc 31.5 g/dL (32-36); Mean Corpuscular Hgb 27.9 pg (27.0-32.0); Mean Corpuscular Volume 88.7 fL (81-99); Mean Platelet Vol. 9.4 fl (6.2-12.0); Platelet Count 306 K/mm3 (150-450); RBC Distribution Width CV 13.3 % (11.6-14.6); RBC Distribution Width SD 43.3 fl (35.1-43.9); Red Blood Count 5.05 M/mm3 (4.2-5.4); White Blood Count 7.6 K/mm3 (4.4-11.0)
[2022-12-27 10:02] LABS: Vitamin B12 295 pg/mL (211-911)
[2022-12-27 10:11] LABS: ALB/GLOB Ratio 0.8 RATIO (0.9-2.4); AST(SGOT) 9 U/L (15-37); Alanine Aminotransfer ALT/SGPT 12 U/L (13-56); Alkaline Phosphatase 73 U/L (45-117); Anion Gap 9 (5-15); BUN 19 mg/dL (7-18); BUN/Creat Ratio 18.6 RATIO (10-20); Calcium,Total 8.5 mg/dL (8.5-10.1); Chloride 106 mmol/L (98-107); Cholesterol 183 mg/dL (200); Creatinine, Serum 1.02 mg/dL (0.55-1.02); EST Glomerular Filtration Rate 57 mL/min (>60); Est Glom Filt Rate - Afr Amer 69 mL/min (>60); Globulin 3.6 g/dL (2.2-4.2); Glucose 222 mg/dL (74-106); High Density Lipoprotein 51 mg/dL; Protein, Total 6.6 g/dL (6.4-8.2); Sodium Level 139 mmol/L (136-145); Thyroid Stim Hormone (TSH) 1.27 uIU/mL (0.358-3.74); Triglycerides 127 mg/dL; Very Low Density Lipoprotein 25 mg/dL (5-40)
[2022-12-29 12:09] LABS: Vitamin D 1,25-Dihydroxy 29.9 pg/mL (24.8-81.5)
== END | disposition home or self-care (01) ==
LOC: LAB 08:37
DX: E11.65 Type 2 diabetes mellitus with hyperglycemia (principal); E11.42 Type 2 diabetes mellitus with diabetic polyneuropathy; E78.5 Hyperlipidemia, unspecified
CPT/HCPCS: 36415; 80053; 80061; 82043; 82607; 82652; 84443; 85027

== ENCOUNTER → 2023-02-01 | Outpatient (CLI) | payer MEDICARE, SELFPAY ==
[2023-02-01 12:09] LABS: Absolute Lymphocyte Count 2.12 X10^3/uL (0.83-4.51); Absolute Neutrophil Count 3.9 X10^3/uL (2.0-7.7); Basophil# 0.04 X10^3/uL; Basophil% 0.6 % (0-1); Eosinophil# 0.21 X10^3/uL; Eosinophils% 3.1 % (0-5); Hematocrit 42.7 % (37-47); Hemoglobin 13.4 g/dL (12.0-15.0); Lymphocyte # 2.12 X10^3/ul (0.83-4.51); Lymphocyte % 31.5 % (19-41); Mean Corp Hgb Conc 31.4 g/dL (32-36); Mean Corpuscular Hgb 28.1 pg (27.0-32.0); Mean Corpuscular Volume 89.5 fL (81-99); Mean Platelet Vol. 9.4 fl (6.2-12.0); Monocyte# 0.42 X10^3/uL; Monocyte% 6.3 % (0-10); NRBC Flagged by Analyzer 0 % (0-5); Neutrophil # 3.91 X10^3/uL (2.7-7.7); Neutrophil % 58.2 % (47-70); Platelet Count 325 K/mm3 (150-450); RBC Distribution Width CV 13.5 % (11.6-14.6); RBC Distribution Width SD 44.9 fl (35.1-43.9); Red Blood Count 4.77 M/mm3 (4.2-5.4); White Blood Count 6.7 K/mm3 (4.4-11.0)
[2023-02-01 13:01] LABS: Anion Gap 5 (5-15); BUN 26 mg/dL (7-18); Calcium,Total 8.3 mg/dL (8.5-10.1); Chloride 106 mmol/L (98-107); Creatinine, Serum 1.13 mg/dL (0.55-1.02); EST Glomerular Filtration Rate 51 mL/min (>60); Est Glom Filt Rate - Afr Amer 61 mL/min (>60); Glucose 228 mg/dL (74-106); Potassium 4.3 mmol/L (3.5-5.1); Sodium Level 137 mmol/L (136-145); Thyroid Stim Hormone (TSH) 1.73 uIU/mL (0.358-3.74)
== END | disposition home or self-care (01) ==
LOC: LAB 11:22
PROVIDERS: PCP Nurse Practitioner Family; Referring Provider Nurse Practitioner Gerontology; Visit Provider Nurse Practitioner Gerontology
DX: I50.22 Chronic systolic (congestive) heart failure (principal); R55 Syncope and collapse
CPT/HCPCS: 36415; 80048; 84443; 85025

== ENCOUNTER → 2023-02-23 | Outpatient (CLI) | payer MEDICARE, SELFPAY ==
--- NOTE | 2023-02-23 17:51 | STRESSREP ---
Stress Test Report Pharmacologic myocardial perfusion stress test. 67-year-old lady with a history of coronary artery disease Resting EKG demonstrates atrial fibrillation with a paced rate of 64 bpm. Resting blood pressure is 120/70 mmHg. 0.4 mg of regadenoson was infused per usual protocol followed by rapid intravenous saline flush injection. Continuous EKG monitoring was performed. The maximum heart rate was 90 bpm which was 59% of max impacted heart rate the maximum workload was 1 metabolic equivalent. At rest there were no ST or T wave changes noted to suggest ischemia and at peak infusion nonspecific ST changes were noted which did not meet the criteria for ischemia. No clinical angina is noted. The final blood pressure was 128/72 mmHg. Myocardial perfusion protocol. 14.1 mCi of technetium 99m sestamibi was injected at rest. 0.4 mg of regadenoson was infused per usual protocol. At peak infusion 44.3 mCi of technetium 99m sestamibi was injected stress images were obtained stress and rest images were reconstructed and compared in the short axis vertical long and horizontal long axis. Gated images were also obtained. Perfusion SPECT analysis: Review of the stress images demonstrate normal uptake of tracer noted in all areas of the myocardium. The resting images similar demonstrated normal uptake of tracer noted in all areas of the myocardium. No areas of reversibility are noted to suggest ischemia and no previous infarct is noted. Gated SPECT analysis: The gated ejection fraction is 60. Conclusion: Normal pharmacologic myocardial perfusion stress test. Preserved ejection fraction.
== END | disposition home or self-care (01) ==
PROVIDERS: Referring Provider Nurse Practitioner Gerontology; Visit Provider Nurse Practitioner Gerontology
DX: I25.10 Atherosclerotic heart disease of native coronary artery without angina pectoris (principal)
CPT/HCPCS: 78452; 93017; A9500; A4216; J2785

== ENCOUNTER → 2023-07-18 | Outpatient (CLI) | payer MEDICARE, SELFPAY ==
--- OUTSIDE RECORDS SUMMARY | 2023-07-18 08:36 | XMS RPT_ITS | CCD ---
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 Name Role Phone Kenna BARRIOS, Kaye Hernadez Unavailable Rivera, Aaliyah Unavailable Unavailable Rivera, Aaliyah Unavailable Unavailable Rivera, Aaliyah Unavailable Unavailable VITEBSKIY, JUWAN Referring Unavailable [facility] Primary Care Unavailable VITEBSKIY, JUWAN Referring Unavailable [facility] Primary Care Unavailable VITEBSKIY, JUWAN Referring Unavailable [facility] Primary Care Unavailable VITEBSKIY, JUWAN Referring Unavailable [facility] Primary Care Unavailable VITEBSKIY, JUWAN Referring Unavailable [facility] Primary Care Unavailable VITEBSKIY, JUWAN Referring Unavailable [facility] Primary Care Unavailable VITEBSKIY, JUWAN Attending Unavailable [facility] Referring Unavailable [facility] Primary Care Unavailable Miguel, Aaliyah Unavailable Unavailable Ovi Olivares MD Unavailable Renée Dudley Primary Care Provider Kristen Harrison CNP (Historical) Unavailable U Ovi Monique MD Unavailable Renée Dudley Primary Care Provider Kristen Harrison CNP (Historical) Unavailable U HONORIO Johansen Referring Unavailable RENÉE DUDLEY Primary Care Unavailable HONORIO HARPER Attending Unavailable RENÉE DUDLEY L Primary Care Unavailable DENNY FLANAGAN Attending Unavailable RENÉE DUDLEY L Primary Care Unavailable LUIS ENRIQUE RENÉE L Primary Care Unavailable HONORIO HARPER Referring Unavailable HONORIO HARPER Referring Unavailable HONORIO HARPER Attending Unavailable SWIHART, RENÉE L Primary Care Unavailable HONORIO HARPER Referring Unavailable RENÉE DUDLEY Primary Care Unavailable Allergies Allergy Classification Reported Allergen(s) Allergy Type Date of Onset Reaction(s) Facility (9 sources) Contrast media; Translations: [RED DYE] drug allergy 5 Unknown [facility] Work Phone: (5 sources) Hmg-Coa Reductase Inhibitors (Statins) drug allergy 6 mylagias [facility] Work Phone: (4 sources) Hmg-Coa Reductase Inhibitors (Statins); Translations: [[id number] REDUCTASE INHIBITORS] Propensity to adverse reactions (disorder) 8 Myalgia [facility] Repository Medications Completed/Discontinued Medications Medication Drug Class(es) Dates Sig (Normalized) Sig (Original) amLODIPine 5 mg oral tablet (2 sources) Dihydropyridine Calcium Channel Matthew Start: 08-16-2020 take 1 tablet by mouth once daily amLODIPine (NORVASC) 5 mg tablet Take 5 mg by mouth once daily. 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)] Onset: 01-31-2018 Chronic Cardiac dysrhythmias (2 sources) Palpitations; Translations: [Palpitations] 02-24-2016 Episodic Conduction disorders (12 sources) Bundle branch block; Translations: [Automatic implantable cardiac defibrillator in situ] Onset: 05-27-2015 05-27-2015 Chronic Congestive heart failure; nonhypertensive (13 sources) Chronic systolic (congestive) heart failure; Translations: [Acute on chronic systolic heart failure] Onset: 09-22-2015 01-17-2016 Chronic Coronary atherosclerosis and other heart disease (20 sources) Atherosclerotic heart disease of [place] coronary artery without angina pectoris; Translations: [Myocardial ischemia] Onset: 05-27-2015 Resolved: 09-20-2015 12-01-2016 Chronic Diabetes mellitus with complications (1 source) Disorder of nervous system due to type 2 diabetes mellitus; Translations: [Type 2 diabetes mellitus with other diabetic neurological complication] Chronic Diabetes mellitus without complication (7 sources) Diabetes mellitus; Translations: [Type 2 diabetes mellitus] Onset: 06-10-2015 06-10-2015 Chronic Disorders of lipid metabolism (5 sources) Hyperlipidemia; Translations: [Hyperlipidemia, unspecified] Onset: 01-17-2016 01-17-2016 Chronic Essential hypertension (2 sources) Essential hypertension; Translations: [Essential (primary) hypertension] 02-24-2016 Chronic Heart valve disorders (5 sources) Nonrheumatic mitral (valve) insufficiency; Translations: [Nonrheumatic mitral (valve) insufficiency] Onset: 01-17-2016 01-17-2016 Chronic Mycoses (1 source) Onychomycosis; Translations: [Tinea unguium] Episodic Other connective tissue disease (1 source) Pain of toe of left foot; Translations: [Pain in left toe(s)] Episodic Other connective tissue disease (1 source) Pain of toe of right foot; Translations: [Pain in right toe(s)] Episodic Other nutritional; endocrine; and metabolic disorders (13 sources) Body mass index (BMI) 36.0-36.9, adult; Translations: [Body mass index (BMI) 38.0-38.9, adult] Onset: 06-10-2015 11-29-2015 Chronic Other nutritional; endocrine; and metabolic disorders (3 sources) Body mass index (BMI) 35.0-35.9, adult; Translations: [Body mass index (BMI) 35.0-35.9, adult] Onset: 06-10-2015 06-10-2015 Chronic Other nutritional; endocrine; and metabolic disorders (3 sources) Body mass index (BMI) 40.0-44.9, adult; Translations: [Body mass index (BMI) 40.0-44.9, adult] Onset: 06-10-2015 08-23-2016 Chronic Other nutritional; endocrine; and metabolic disorders (3 sources) Body mass index (BMI) 38.0-38.9, adult; Translations: [Body mass index (BMI) 38.0-38.9, adult] Onset: 06-10-2015 02-29-2016 Chronic Other nutritional; endocrine; and metabolic disorders (3 sources) Body mass index (BMI) 33.0-33.9, adult; Translations: [Body mass index (BMI) 33.0-33.9, adult] Onset: 06-10-2015 07-22-2015 Chronic Other skin disorders (1 source) Keratosis; Translations: [Epidermal thickening, unspecified] Episodic Negrita-; endo-; and myocarditis; cardiomyopathy (7 sources) Dilated cardiomyopathy; Translations: [Cardiomyopathy] Onset: 05-27-2015 07-22-2015 Chronic Peripheral and visceral atherosclerosis (5 sources) Peripheral vascular disease, unspecified; Translations: [Peripheral vascular disease, unspecified] Onset: 01-19-2016 01-19-2016 Chronic Unclassified (7 sources) Obstructive sleep apnea syndrome; Translations: [Obstructive sleep apnea (adult) (pediatric)] Onset: 01-17-2016 01-17-2016 Chronic Unclassified (3 sources) Long-term drug therapy; Translations: [Other lobsterman (current) drug therapy] Onset: 06-23-2015 06-23-2015 Past or Other Problems Problem Classification Problem Date Documented Da te Episodic/Chronic Other aftercare (2 sources) Other chcf (current) drug therapy; Translations: [Other chcf (current) drug therapy] Onset: 06-23-2015 06-23-2015 Episodic Other circulatory disease (5 sources) Carotid bruit; Translations: [Other specified symptoms and signs involving the circulatory and respiratory systems] Onset: 01-19-2016 01-19-2016 Episodic Other nutritional; endocrine; and metabolic disorders (5 sources) H/O: metabolic disorder; Translations: [Personal history of other endocrine, nutritional and metabolic disease] Onset: 06-30-2016 06-30-2016 Episodic Unclassified (1 source) device check Onset: 10-15-2018 Results Test Name Value Interpretation Reference Range Facil ity Vital Signs Date Time Vital Sign Value Performing Clinician James rachel 03-12-2017 10:31-0400 BMI (Body Mass Index) 42.93 kg/m2 Aaliyah [facility] Work Phone: 03-12-2017 10:31-0400 BP Diastolic 70 mm[Hg] [facility] Work Phone: 03-12-2017 10:31-0400 BP Systolic 142 mm[Hg] [facility] Work Phone: 03-12-2017 10:31-0400 Pulse (Heart Rate) 72 /min [facility]ali[facility] Work Phone: 03-12-2017 10:31-0400 Weight 117.03 kg Aaliyah [facility] Work Phone: 12-01-2016 10:38-0400 BMI (Body Mass Index) 42.56 kg/m2 [facility] Work Phone: 12-01-2016 10:38-0400 BP Diastolic 82 mm[Hg] [facility] Work Phone: 12-01-2016 10:38-0400 BP Systolic 158 mm[Hg] [facility] Work Phone: 12-01-2016 10:38-0400 Height 165.1 cm [facility] Work Phone: 12-01-2016 10:38-0400 Pulse (Heart Rate) 80 /min [facility] Work Phone: 12-01-2016 10:38-0400 Respiratory Rate 20 /min [facility] Work Phone: 12-01-2016 10:38-0400 Weight 116.03 kg Aaliyah [facility] Work Phone: 08-23-2016 14:06-0400 Pulse Oximetry 98 % [facility]ali[facility] Work Phone: 02-29-2016 09:05-0400 BSA (Body Surface Area) 2.11 m2 [facility] Work Phone: 10-22-2015 10:30-0400 Heart rate 68 /min [facility] Work Phone: Encounters Encounter Date Encounter Type Care Provider Facility Start: 05-28-2023 End: 05-28-2023 ambulatory HONORIO HARPER Facility:[facility] Start: 03-05-2023 End: 03-05-2023 ambulatory HONORIO HARPER Facility:[facility] Start: 03-05-2023 End: 03-05-2023 Subsequent hospital visit by physician [facility] [address] [address] Work Phone: Radiology Procedures Date Procedure Procedure Detail Performing Clinician Start: 03-05-2023 Us abdominal real ti me w/image limited Jay Jay Garcia MD Work Phone: Start: 03-12-2017 End: 03-12-2017 Follow Up Appt 6 months Kaye grant PA-C Work Phone: Start: 03-12-2017 End: 03-12-2017 PFM Kaye Burris PA-C Work Phone: Start: 12-01-2016 End: 12-01-2016 Follow Up Appt 3 months Kaye grant PA-C Work Phone: Start: 12-01-2016 End: 12-01-2016 Follow Up Appt 6 months Kaye grant PA-C Work Phone: Start: 12-01-2016 End: 12-01-2016 MMPatito Burris PA-C Work Phone: Start: 12-01-2016 End: 12-01-2016 PFPatito Burris PA-C Work Phone: Start: 12-01-2016 End: 12-01-2016 Follow Up Appt 3 months Kaye grant PA-C Work Phone: Start: 12-01-2016 End: 12-01-2016 Follow Up Appt 6 months Kaye grant PA-C Work Phone: Start: 12-01-2016 End: 12-01-2016 DAY Burris PA-C Work Phone: Start: 12-01-2016 End: 12-01-2016 PFPatito Burris PA-C Work Phone: Start: 08-23-2016 End: 08-23-2016 Dietary management education, guidance, and counseling Aaliyah Rivera Start: 08-23-2016 End: 08-31-2016 *BMP Stewart Boggs MD Start: 08-23-2016 End: 08-23-2016 Follow Up Appt 3 months Stewart Boggs MD Start: 08-23-2016 End: 08-23-2016 MMM Stewart Boggs MD Start: 08-23-2016 End: 08-31-2016 Natriuretic peptide B [Mass/volume] in Blood Stewart Boggs MD Start: 08-23-2016 End: 08-31-2016 *BMP Stewart Boggs MD Start: 08-23-2016 End: 08-31-2016 BNP Stewart Boggs MD Start: 08-23-2016 End: 08-23-2016 Follow Up Appt 3 months Stewart Boggs MD Start: 08-23-2016 End: 08-23-2016 MMM Stewart Boggs MD Start: 07-17-2016 End: 03-12-2017 *Hepatic Function Panel Stewart Boggs MD Start: 07-17-2016 End: 03-12-2017 Lipid 1996 panel - Serum or Plasma Stewart Boggs MD Start: 03-11-2016 End: 04-10-2016 Lipid 1996 panel - Serum or Plasma Kaye Burris PA-C Work Phone: Start: 03-11-2016 End: 04-10-2016 Lipid panel [AGGREGATE] Kaye grant PA-C Work Phone: Start: 02-29-2016 End: 02-29-2016 Follow Up Appt Other Kaye hernadez PA-C Work Phone: Start: 02-29-2016 End: 02-29-2016 PFM Kaye Burris PA-C Work Phone: Start: 02-29-2016 End: 02-29-2016 Follow Up Appt Other Kaye hernadez PA-C Work Phone: Start: 02-29-2016 End: 02-29-2016 PFM Kaye Burris PA-C Work Phone: Start: 01-19-2016 End: 02-23-2016 Carotid duplex Stewart Boggs MD Start: 01-19-2016 End: 01-19-2016 Follow Up Appt 6 weeks Stewart Boggs MD Start: 01-19-2016 End: 11-10-2016 Follow Up Appt Other Stewart Boggs MD Start: 01-19-2016 End: 01-19-2016 MMM Stewart Boggs MD Start: 01-19-2016 End: 02-23-2016 Carotid duplex Stewart Boggs MD Start: 01-19-2016 End: 01-19-2016 Follow Up Appt 6 weeks Stewart Boggs MD Start: 01-19-2016 End: 11-10-2016 Follow Up Appt Other Stewart Boggs MD Start: 01-19-2016 End: 01-19-2016 MMM Stewart Boggs MD Start: 11-29-2015 End: 11-29-2015 Follow Up Appt 3 months Kaye grant PA-C Work Phone: Start: 11-29-2015 End: 11-29-2015 Follow Up Appt 6 months Kaey grant PA-C Work Phone: Start: 11-29-2015 End: 11-29-2015 MMM Kaye Burris PA-C Work Phone: Start: 11-29-2015 End: 11-29-2015 PFM Kaye Burris PA-C Work Phone: Start: 11-29-2015 End: 11-29-2015 Follow Up Appt 3 months Kaye grant PA-C Work Phone: Start: 11-29-2015 End: 11-29-2015 Follow Up Appt 6 months Kaye grant PA-C Work Phone: Start: 11-29-2015 End: 11-29-2015 MMM Kaye Burris PA-C Work Phone: Start: 11-29-2015 End: 11-29-2015 PF Kaye Burris PA-C Work Phone: Start: 10-22-2015 End: 10-22-2015 Ecg routine ecg w/least 12 lds w/i&r Stewart Boggs MD Start: 10-22-2015 End: 10-22-2015 Follow Up Appt 6 weeks Stewart Boggs MD Start: 10-22-2015 End: 10-22-2015 Electrocardiogram, complete Stewart rivero MD Start: 10-22-2015 End: 10-22-2015 Follow Up Appt 6 weeks Stewart Boggs MD Start: 10-22-2015 End: 10-22-2015 MMM Stewart Boggs MD Start: 09-29-2015 End: 09-30-2015 Referral to patrol captain Stewart abraham MD Start: 09-29-2015 End: 09-30-2015 Referral to patrol captain Stewart abraham MD Start: 09-20-2015 End: 09-21-2015 Referral to patrol captain Stewart abraham MD Start: 09-20-2015 End: 11-10-2016 Us abdominal real time w/image limited Stewart Boggs MD Start: 09-20-2015 End: 11-10-2016 Cardiac Rehab Stewart Boggs MD Start: 09-20-2015 End: 11-10-2016 Echo exam of abdomen Stewart Boggs MD Start: 09-20-2015 End: 09-21-2015 Referral to patrol captain Stewart abraham MD Start: 07-22-2015 End: 11-05-2015 Echocardiography Kaye Burris PA-C Work Phone: Start: 07-22-2015 End: 07-22-2015 Follow Up Appt 3 months Kaye grant PA-C Work Phone: Start: 07-22-2015 End: 07-22-2015 MMM Kaye Burris PA-C Work Phone: Start: 07-22-2015 End: 11-05-2015 Echocardiography Kaye Burris PA-C Work Phone: Start: 07-22-2015 End: 07-22-2015 Follow Up Appt 3 months Kaye grant PA-C Work Phone: Start: 07-22-2015 End: 07-22-2015 MM Kaye Burris PA-C Work Phone: Start: 06-21-2015 End: 06-23-2015 *BMP Kaye Burris PA-C Work Phone: Start: 06-21-2015 End: 06-23-2015 *BMP Kaye Burris PA-C Work Phone: Start: 06-10-2015 End: 07-15-2015 Follow Up Appt 3 months Kaye grant PA-C Work Phone: Start: 06-10-2015 End: 06-10-2015 Follow Up Appt 6 weeks Kaye loo PA-C Work Phone: Start: 06-10-2015 End: 06-23-2015 Follow Up BP Check Kaye Burris PA-C Work Phone: Start: 06-10-2015 End: 06-10-2015 MMM Kaye Burris PA-C Work Phone: Start: 06-10-2015 End: 07-15-2015 PFM Kaye Burris PA-C Work Phone: Start: 06-10-2015 End: 07-15-2015 Follow Up Appt 3 months Kaye grant PA-C Work Phone: Start: 06-10-2015 End: 06-10-2015 Follow Up Appt 6 weeks Kaye loo PA-C Work Phone: Start: 06-10-2015 End: 06-23-2015 Follow Up BP Check Kaye Burris PA-C Work Phone: Start: 06-10-2015 End: 06-10-2015 MM Kaye Burris PA-C Work Phone: Start: 06-10-2015 End: 07-15-2015 [facility] Kaye Burris PA-C Work Phone: Start: 05-27-2015 End: 06-09-2015 Nuclear stress test -Uma umana MD Start: 05-27-2015 End: 06-09-2015 Nuclear stress test -Uma umana MD Plan of Treatment Date Care Activity Detail Author Start: 02-23-2024 Hepatitis C antibody, confirmatory test Dilated Retinal Exam [facility] Start: 02-09-2023 Covid-19 Vaccine () Covid-19 Vaccine () [facility] Start: 02-09-2023 Influenza vaccination Influenza Vaccine (#1) [facility] Start: 06-11-2022 Advance Directive Discussion Advance Directive Discussion [facility] Start: 06-11-2022 Depression Assessment Depression Assessment [facility] Start: 12-10-2021 3 comp foot exam completed DIABETIC FOOT EXAM [facility] Start: 10-18-2021 Shingrix Vaccine (2 of 2) Shingrix Vaccine (2 of 2) [facility] Start: 06-11-2021 ADVANCE DIRECTIVE DISCUSSION ADVANCE DIRECTIVE DISCUSSION [facility] Start: 05-19-2020 Pneumococcal Vaccine: 65+ (2 - PPSV23 or PCV20) Pneumococcal Vaccine: 65+ (2 - PPSV23 or PCV20) [facility] Start: 01-31-2019 Hepatitis C antibody, confirmatory test DILATED RETINAL EXAM [facility] Start: 11-08-2018 Influenza vaccination LUNG CANCER SCREENING [facility] Start: 2018 BONE DENSITY BONE DENSITY [facility] Start: 2018 Bone Density Screening Bone Density Screening [facility] Start: 2018 PNEUMOVAX AGE 65 AND OVER WITH 5YR LOOKBACK (#1) PNEUMOVAX AGE 65 AND OVER WITH 5YR LOOKBACK (#1) [facility] Start: 05-05-2018 Hemoglobin A1c/Hemoglobin.total in Blood HBA1C [facility] Start: 07-17-2017 Hepatitis B surface antibody level LDL Cholesterol [facility] Start: 07-16-2017 End: 07-16-2017 Appointment Appointment [facility] Work Phone: Start: 03-12-2017 End: 03-12-2017 Appointment Appointment [facility] Work Phone: Start: 03-12-2017 End: 03-12-2017 Follow Up Appt 6 months Follow Up Appt 6 months [facility] Work Phone: Start: 03-12-2017 End: 03-12-2017 PFM PFM [facility] Work Phone: Start: 12-01-2016 End: 12-01-2016 Follow Up Appt 3 months Follow Up Appt 3 months [facility] Work Phone: Start: 12-01-2016 End: 12-01-2016 Follow Up Appt 6 months Follow Up Appt 6 months [facility] Work Phone: Start: 12-01-2016 End: 12-01-2016 MMM MMM [facility] Work Phone: Start: 12-01-2016 End: 12-01-2016 PFM PFM [facility] Work Phone: Start: 12-01-2016 End: 12-01-2016 Follow Up Appt 3 months Follow Up Appt 3 months [facility] Work Phone: Start: 12-01-2016 End: 12-01-2016 Follow Up Appt 6 months Follow Up Appt 6 months [facility] Work Phone: Start: 12-01-2016 End: 12-01-2016 MMM MMM [facility] Work Phone: Start: 12-01-2016 End: 12-01-2016 PFM PFM [facility] Work Phone: Start: 08-23-2016 End: 08-31-2016 *BMP *BMP [facility] Work Phone: Start: 08-23-2016 End: 08-23-2016 Follow Up Appt 3 months Follow Up Appt 3 months [facility] Work Phone: Start: 08-23-2016 End: 08-23-2016 MMM MMM [facility] Work Phone: Start: 08-23-2016 End: 08-31-2016 Natriuretic peptide B mass conc (Bld) *Brain Natriuretic Peptide BNP [facility] Work Phone: Start: 08-23-2016 End: 08-31-2016 *BMP *BMP [facility] Work Phone: Start: 08-23-2016 End: 08-31-2016 BNP *Brain Natriuretic Peptide BNP [facility] Work Phone: Start: 08-23-2016 End: 08-23-2016 Follow Up Appt 3 months Follow Up Appt 3 months [facility] Work Phone: Start: 08-23-2016 End: 08-23-2016 MMM MMM [facility] Work Phone: Start: 07-17-2016 End: 03-12-2017 *Hepatic Function Panel *Hepatic Function Panel [facility] Work Phone: Start: 07-17-2016 End: 03-12-2017 Lipid 1996 panel *Lipid Profile CC PCP [facility] Work Phone: Start: 07-17-2016 End: 01-19-2016 *Hepatic Function Panel *Hepatic Function Panel [facility] Work Phone: Start: 07-17-2016 End: 01-19-2016 Lipid panel [AGGREGATE] *Lipid Profile CC PCP [facility] Work Phone: Start: 03-11-2016 End: 04-10-2016 Lipid 1996 panel *Lipid Profile CC PCP [facility] Work Phone: Start: 03-11-2016 End: 04-10-2016 Lipid panel [AGGREGATE] *Lipid Profile CC PCP [facility] Work Phone: Start: 02-29-2016 End: 02-29-2016 Follow Up Appt Other Follow Up Appt Other [facility] Work Phone: Start: 02-29-2016 End: 02-29-2016 PFM PFM [facility] Work Phone: Start: 02-29-2016 End: 02-29-2016 Follow Up Appt Other Follow Up Appt Other [facility] Work Phone: Start: 02-29-2016 End: 02-29-2016 PFM PFM [facility] Work Phone: Start: 01-19-2016 End: 01-19-2016 Carotid duplex Carotid duplex [facility] Work Phone: Start: 01-19-2016 End: 01-19-2016 Follow Up Appt 6 weeks Follow Up Appt 6 weeks [facility] Work Phone: Start: 01-19-2016 End: 11-10-2016 Follow Up Appt Other Follow Up Appt Other [facility] Work Phone: Start: 01-19-2016 End: 01-19-2016 MMM MMM [facility] Work Phone: Start: 01-19-2016 End: 01-19-2016 Carotid duplex Carotid duplex [facility] Work Phone: Start: 01-19-2016 End: 01-19-2016 Follow Up Appt 6 weeks Follow Up Appt 6 weeks [facility] Work Phone: Start: 01-19-2016 End: 11-10-2016 Follow Up Appt Other Follow Up Appt Other [facility] Work Phone: Start: 01-19-2016 End: 01-19-2016 MMM MMM [facility] Work Phone: Start: 11-29-2015 End: 11-29-2015 Follow Up Appt 3 months Follow Up Appt 3 months [facility] Work Phone: Start: 11-29-2015 End: 11-29-2015 Follow Up Appt 6 months Follow Up Appt 6 months [facility] Work Phone: Start: 11-29-2015 End: 11-29-2015 MMM MMM [facility] Work Phone: Start: 11-29-2015 End: 11-29-2015 PFM PFM [facility] Work Phone: Start: 11-29-2015 End: 11-29-2015 Follow Up Appt 3 months Follow Up Appt 3 months [facility] Work Phone: Start: 11-29-2015 End: 11-29-2015 Follow Up Appt 6 months Follow Up Appt 6 months [facility] Work Phone: Start: 11-29-2015 End: 11-29-2015 MMM MMM [facility] Work Phone: Start: 11-29-2015 End: 11-29-2015 PFM PFM [facility] Work Phone: Start: 10-22-2015 End: 10-22-2015 Ecg routine ecg w/least 12 lds w/i&r EKG (In office) [facility] Work Phone: Start: 10-22-2015 End: 10-22-2015 Follow Up Appt 6 weeks Follow Up Appt 6 weeks [facility] Work Phone: Start: 10-22-2015 End: 10-22-2015 MMM MMM [facility] Work Phone: Start: 10-22-2015 End: 10-22-2015 Electrocardiogram, complete EKG (In office) [facility] Work Phone: Start: 10-22-2015 End: 10-22-2015 Follow Up Appt 6 weeks Follow Up Appt 6 weeks [facility] Work Phone: Start: 10-22-2015 End: 10-22-2015 MMM MMM [facility] Work Phone: Start: 09-29-2015 End: 09-29-2015 Cardiac Referral Cardiac Referral Juwan Garcia MD, [address], [place], [address] [facility] Work Phone: Start: 09-29-2015 End: 09-29-2015 Cardiac Referral Cardiac Referral Juwan Garcia MD, [address], [place], [address] [facility] Work Phone: Start: 09-20-2015 End: 11-05-2015 Cardiac Rehab Cardiac Rehab [address] [place], [address] [facility] Work Phone: Start: 09-20-2015 End: 11-05-2015 External Counterpulsation Therapy External Counterpulsation Therapy [address] [place], [address] [facility] Work Phone: Start: 09-20-2015 End: 09-20-2015 Us abdominal real time w/image limited US Abdominal (aneurysm screening) [facility] Work Phone: Start: 09-20-2015 End: 11-05-2015 Cardiac Rehab Cardiac Rehab [address] [place], [address] [facility] Work Phone: Start: 09-20-2015 End: 09-20-2015 Echo exam of abdomen US Abdominal (aneurysm screening) [facility] Work Phone: Start: 09-20-2015 End: 11-05-2015 External Counterpulsation Therapy External Counterpulsation Therapy [address] [place], [address] [facility] Work Phone: Start: 07-22-2015 End: 07-22-2015 Echocardiography Echocardiogram (limited) [facility] Work Phone: Start: 07-22-2015 End: 07-22-2015 Follow Up Appt 3 months Follow Up Appt 3 months [facility] Work Phone: Start: 07-22-2015 End: 07-22-2015 MMM MMM [facility] Work Phone: Start: 07-22-2015 End: 07-22-2015 Echocardiography Echocardiogram (limited) [facility] Work Phone: Start: 07-22-2015 End: 07-22-2015 Follow Up Appt 3 months Follow Up Appt 3 months [facility] Work Phone: Start: 07-22-2015 End: 07-22-2015 MMM MMM [facility] Work Phone: Start: 06-21-2015 End: 06-23-2015 *BMP *BMP [facility] Work Phone: Start: 06-21-2015 End: 06-23-2015 *BMP *BMP [facility] Work Phone: Start: 06-10-2015 End: 07-15-2015 Follow Up Appt 3 months Follow Up Appt 3 months [facility] Work Phone: Start: 06-10-2015 End: 06-10-2015 Follow Up Appt 6 weeks Follow Up Appt 6 weeks [facility] Work Phone: Start: 06-10-2015 End: 06-23-2015 Follow Up BP Check Follow Up BP Check [facility] Work Phone: Start: 06-10-2015 End: 06-10-2015 MMM MMM [facility] Work Phone: Start: 06-10-2015 End: 07-15-2015 PFM PFM [facility] Work Phone: Start: 06-10-2015 End: 07-15-2015 Follow Up Appt 3 months Follow Up Appt 3 months [facility] Work Phone: Start: 06-10-2015 End: 06-10-2015 Follow Up Appt 6 weeks Follow Up Appt 6 weeks [facility] Work Phone: Start: 06-10-2015 End: 06-23-2015 Follow Up BP Check Follow Up BP Check [facility] Work Phone: Start: 06-10-2015 End: 06-10-2015 MMM MMM [facility] Work Phone: Start: 06-10-2015 End: 07-15-2015 PFM PFM [facility] Work Phone: Start: 05-27-2015 End: 05-28-2015 Nuclear stress test -Lexiscan Nuclear stress test -Lexiscan [facility] Work Phone: Start: 05-27-2015 End: 05-28-2015 Nuclear stress test -Lexiscan Nuclear stress test -Lexiscan [facility] Work Phone: Start: 2013 Hepatitis B Vaccine (1 of 3 - Risk 3-dose series) Hepatitis B Vaccine (1 of 3 - Risk 3-dose series) [facility] Start: 2013 RSV Vaccine (1 - 1-dose 60+ series) RSV Vaccine (1 - 1-dose 60+ series) [facility] Start: 2003 SHINGRIX VACCINE (1 of 2) SHINGRIX VACCINE (1 of 2) [facility] Start: 1998 COLOGUARD (FIT-DNA) COLOGUARD (FIT-DNA) [facility] Start: 1998 Colonoscopy COLONOSCOPY [facility] Start: 1998 COLORECTAL CANCER SCREENING COLORECTAL CANCER SCREENING [facility] Start: [address] COLONOGRAPHY [facility] Start: 1998 FECAL OCCULT BLOOD FECAL OCCULT BLOOD [facility] Start: 1998 SIGMOIDOSCOPY SIGMOIDOSCOPY [facility] Start: 1993 Mammography [facility] Start: 1972 Urine microalbumin profile [facility] Start: 1971 ANNUAL PCP TEAM CHRONIC DISEASE VISIT ANNUAL PCP TEAM CHRONIC DISEASE VISIT [facility] Start: 1971 BP CONTROLLED (<130/80) BP CONTROLLED (<130/80) [facility] Start: 1971 Hepatitis B surface antibody level LDL CHOLESTEROL [facility] Start: 1971 HEPATITIS C SCREENING HEPATITIS C SCREENING [facility] Start: 1965 Adult depression screening assessment DEPRESSION SCREENING [facility] Start: 1963 Hepatitis B screening URINE ALBUMIN:CREATININE RATIO [facility] Patient Education [employer] [facility] [employer] Work Phone: [facility] Immunizations Immunization Date Immunization Notes Care Provider [facility] 06-07-2021 influenza virus vacc ine, unspecified formulation 1 Work Phone: [facility] Payers Date Payer Category Payer Medicare AETNA MEDICARE A ETNA MEDICARE PPO [id number] 2022-Present [phone] [address] [place] [address] PPO [id number] 2022 Medicare [id number] 2018 Medicare MEDICARE MEDICAR E A AND B [id number] 2018-Present [phone] [address] [address] [place] [address] Medicare [id number] 2018 Unknown HOSPITAL/MEDICAL GENERIC MEDICAL GENERIC [id number] 2018-Present [phone] [address] [place] [address] Indemnity [id number] 1953 Unknown [id number] 1953 Unknown [id number] 1953 Unknown [id number] 1953 Unknown [id number] 1953 Unknown [id number] 1953 Unknown [id number] 1953 Unknown [id number] Medicare [id number] Unknown [id number] Social History Date Type Detail Facility Start: 02-22-2023 Tobacco smoking stat [facility] Ex-smoker [facility] Work Phone: End: 12-26-2006 History of tobacco use Current smoker [facility] Start: 10-06-2021 End: 02-22-2023 Alcohol intake Current drinker of alcohol (finding) [facility] Start: 06-29-2021 History SDOH Alcohol Comment seldom [facility] Start: 1955 Sex Assigned At Not on file [facility] Start: 09-26-2021 End: 10-06-2021 Exposure to SARS-CoV-2 (event) Not sure [facility] Work Phone: End: 12-26-2006 History of tobacco use Cigarette Smoker [facility] Start: 01-03-2023 End: 02-22-2023 Cigarettes smoked current (pack per day) - Reported 2 [facility] Start: 02-22-2023 Tobacco use and exposure Smokeless tobacco non-user [facility] Start: 01-03-2023 End: 02-22-2023 Tobacco use panel [facility] Retired 07/10/2019 P HQ Score 0 [facility] Progress note 05-28-2023 Note Date & Type Note Facility 05-28-2023 Note HNO ID: [id number] Author: Honorio Harper MD Service: ? Author Type: Physician Type: Progress Notes Filed: 05/28/2023 9:05 PM Note Text: LTFU 01/2018 - 02/2023. Had previously planned on TTT#2. Returning after seeing Dr. Flanagan, concern for exudative retinal detachment left eye. Decreased vision in the left eye over the last few months. Referred by Dr Olivares ([place]) for OS melanoma evaluation Pt w hx Diab Retinopathy / DME OU - tx with laser and intravitreal injections April 2017 - Dr Oilvares first identified choroidal lesion suspicious for MM - referred to [facility] Last EE had been Feb 2017 - no mention of lesion then 1. Small Choroidal Melanoma, left eye 2. Subretinal hemorrhage, left eye 3. 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 -no FNAB (small size) -Saw Dr. Olivares in the interim and he did not need to do an AntiVEGF injection in either eye -Difficult to monitor for radiation retinopathy effects given pre-existing diabetic macular edema but appears stable compared to prior exam - LTFU 01/2018 - 02/2023; had previously planned on TTT #2 but was lost to follow-up; noticed gradually declining vision over preceding several months, found to have massive subretinal hemorrhage adjacent to temporal edge of treated juxtapapillary lesion, resulting exudative retinal detachment -B-scan today reveals decrease height of melanoma at 1.4mm (prev 1.8, initial was 2.1 mm); also has total open funnel Retinal detachment, moderately dense subretinal opacities. systemic: 03/05/23: No hepatic lesion Today: decrease subretinal hemorrhage, decrease exudative RD, about half of retina is visible, regressed melanoma. Explained that tumor regressed and exudative Rd decrease, no potential for improve VA, so surgery not recommended. Plan: Follow-up in 6 months, Bscan, fundus, systemic I have confirmed and edited as necessary the relevant ophthalmic history, ROS, and the neuro exam findings as obtained by others. I have seen and examined this patient. I have discussed the case and the management of this patient's care with the Resident/Fellow, if applicable. I also have reviewed and agree with the assessment and plan as stated above and agree with all of its relevant components. Honorio Harper MD May 28, 2023 9:04 PM [facility] Progress note 03-05-2023 Note Date & Type Note Facility 03-05-2023 Note HNO ID: [id number] Author: Sarah Dao RDMS Service: ? Author Type: Coater Hand Type: Progress Notes Filed: 03/05/2023 11:11 AM Note Text: Radiology Service Progress Note PATIENT NAME: Sandra Lloyd DATE OF SERVICE: March 05, 2023 TIME: 11:10 AM PATIENT IDENTITY VERIFICATION COMPLETED USING TWO (2) IDENTIFIERS: Name and Date of confirmed by patient verbally. FALL SCREENING: Has the patient had 2 falls in the last year or 1 fall with injury or currently using an Ambulatory Assistive Device (Walker, Cane, Wheelchair, Crutches, etc.)? No PATIENT GENDER DATA: Female. status: : No status: NO. PATIENT RELEVANT IMPLANT DATA REVIEWED: Not Applicable RADIOLOGY DEPARTMENT: Ultrasound PERIPHERAL IV DATA: Not applicable SIGNED BY: Sarah Dao RDMS RVT March 05, 2023 11:10 AM [facility] History of Present illness Narrative 03-05-2023 Sarah Dao RDMS - 03/05/2023 9:15 AM EDT Note Date & Type Note Facility 03-05-2023 History of Presen t illness Narrative Radiology Service Progress Note PATIENT NAME: Sandra Lloyd DATE OF SERVICE: March 05, 2023 TIME: 11:10 AM PATIENT IDENTITY VERIFICATION COMPLETED USING TWO (2) IDENTIFIERS: Name and Date of confirmed by patient verbally. FALL SCREENING: Has the patient had 2 falls in the last year or 1 fall with injury or currently using an Ambulatory Assistive Device (Walker, Cane, Wheelchair, Crutches, etc.)? No PATIENT GENDER DATA: Female. status: : No status: NO. PATIENT RELEVANT IMPLANT DATA REVIEWED: Not Applicable RADIOLOGY DEPARTMENT: Ultrasound PERIPHERAL IV DATA: Not applicable SIGNED BY: Sarah Dao RDMS RVT March 05, 2023 11:10 AM documented in this encounter [facility] Progress note 02-22-2023 Note Date & Type Note Facility 02-22-2023 Note HNO ID: [id number] Author: Honorio Harper MD Service: ? Author Type: Physician Type: Progress Notes Filed: 02/23/2023 11:07 AM Note Text: LTFU 01/2018 - 02/2023. Had previously planned on TTT#2. Returning after seeing Dr. Flanagan, concern for exudative retinal detachment left eye. Decreased vision in the left eye over the last few months. Referred by Dr Olivares ([place]) for OS melanoma evaluation Pt w hx Diab Retinopathy / DME OU - tx with laser and intravitreal injections April 2017 - Dr Olivares first identified choroidal lesion suspicious for MM - referred to [facility] Last EE had been Feb 2017 - no mention of lesion then 1. Small Choroidal Melanoma, left eye 2. Subretinal hemorrhage, left eye 3. 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 -no FNAB (small size) -Saw Dr. Olivares in the interim and he did not need to do an AntiVEGF injection in either eye -Difficult to monitor for radiation retinopathy effects given pre-existing diabetic macular edema but appears stable compared to prior exam - LTFU 01/2018 - 02/2023; had previously planned on TTT #2 but was lost to follow-up; noticed gradually declining vision over preceding several months, found to have massive subretinal hemorrhage adjacent to temporal edge of treated juxtapapillary lesion, resulting exudative retinal detachment -B-scan today reveals stable height of melanoma at 1.8 mm (prev 2.2, initial was 2.1 mm); also has total open funnel Retinal detachment, moderately dense subretinal opacities 360 degrees Plan: Has near-total exudative Retinal detachment resulting from subretinal hemorrhage Based on review of ultrasound and photos, hemorrhage does not appear to be due to recurrence of tumor (instead may be Choroidal neovascular membrane related to TTT) Observe closely for now Overdue for systemic - ordered RUQ ultrasound Follow-up in 3 months, may ultimately require enucleation if it is unclear whether or not the tumor is recurring I have confirmed and edited as necessary the relevant ophthalmic history, ROS, and the neuro exam findings as obtained by others. I have seen and examined this patient. I have discussed the case and the management of this patient's care with the Resident/Fellow, if applicable. I also have reviewed and agree with the assessment and plan as stated above and agree with all of its relevant components. Honorio Harper MD February 23, 2023 11:07 AM [facility] Progress note 01-03-2023 Note Date & Type Note Facility 01-03-2023 Note HNO ID: [id number] Author: Denny Flanagan MD Service: ? Author Type: Physician Type: Progress Notes Filed: 01/03/2023 10:14 AM Note Text: Assessment and Plan 1. Combined forms of age-related cataract of right eye -visually significant both eyes 2. 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 Exudative retinal detachment of left eye -chronic retinal detachment? Macula involving 4. Type 2 diabetes mellitus with right eye affected by mild nonproliferative retinopathy without macular edema, with long-term current use of insulin (HCC) -stable Plan: -Continue blood sugar and blood pressure control -to retina/Dr. Honorio Harper as soon as possible for evaluation I have confirmed and edited as necessary the relevant ophthalmic history, ROS, and the neuro exam findings as obtained by others. I have seen and examined Sandra Lloyd. I have discussed the case and the management of this patient's care with the Resident/Fellow, if applicable. I also have reviewed and agree with the assessment and plan as stated above and agree with all of its relevant components. Denny Flanagan MD January 03, 2023 10:05 AM [facility] History of Present illness Narrative 10-06-2021 Shaka Alonso - 10/06/2021 12:58 PM EDT Note Date & Type Note Facility 10-06-2021 History of Presen t illness Narrative Last saw Dr. Dudley: not present in chart Subjective: Patient presents to clinic c/o painful toenails. They state that the nails are especially painful with shoe gear and pressure. Patient states that nails 1-5 b/l are painful. Patient admits to being diabetic. No other pedal complaints at this time. Patient states no change in medications or medical history since last visit. Objective: Patient presents to clinic ambulating in [place] Vasc: DP and PT pulses are palpable bilateral. CFT is less than 5 seconds bilateral. Skin temperature is warm to cool proximal to distal bilateral. There is mild edema or varicosities noted. Neuro: Protective sensation is intact to the foot and toes when tested with the 5.07 SWM bilateral. Vibratory sensation is decreased at the hallux IPJ bilateral. The hallux is downgoing bilateral. Derm: Nails 1-5 b/l are painful, discolored-yellow, thick, crumbly, dystrophic and with subungal debris. Skin is of normal turgor, texture and hair growth is present bilateral. There are callus to b/l hallux. Healed blister to right 1st metatarsal. no ulcerations, scars, verruca or other lesions noted. Ortho: Muscle strength is 5/5 for all pedal groups tested. Ankle joint DF is full with the knee extended with no pain or crepitus noted. 1st MPJ ROM is full bilateral. Assessment: (B35.1) Onychomycosis (primary encounter diagnosis) (M79.675) Pain in toe of left foot (M79.674) Pain in toe of right foot (E11.49) Other diabetic neurological complication associated with type 2 diabetes mellitus (HCC) (L85.9) Hyperkeratosis Plan: Patient was seen and evaluated. Nails 1-5 bilateral were debrided in length and thickness. Callus reduced with dremmel. In order to perform a complete physical exam, limited shaving of callus area was performed. This incidental service is integral to the evaluation and management visit in order to appropriately manage and treat the patient (for their complaint or for this visit). Patient was instructed on the continued importance of diabetic foot care along with proper diet and keeping their blood sugar under control to prevent complications. Patient is to RTC in 3-4 months. Shaka Alonso DPM documented in this encounter [facility] Instructions 10-06-2021 Patient Instructions Note Date & Type Note Facility 10-06-2021 Instructions Shaka Alonso - 10/06/2021 12:57 PM EDT Diabetes Foot Care Instructions When you have diabetes, proper foot care is very important. Poor foot care may lead to amputation of a foot or leg. As a person with diabetes, you are more vulnerable to foot problems, because diabetes can damage your nerves and reduce blood flow to your feet. Here are some diabetes foot care tips to follow: Wash and Dry Your Feet Daily Use mild soaps Use warm water Pat your skin dry; do not rub. Thoroughly dry your feet. After washing, use lotion on your feet to prevent cracking. Do not put lotion between your toes. Examine Your Feet Each Day Check the tops and bottoms of your feet. Have someone else look at your feet if you cannot see them. Check for dry, cracked skin. Look for blisters, cuts, scratches, or other sores. Check for redness, increased warmth, or tenderness when touching any area of your feet. Check for ingrown toenails, corns, and calluses. If you get a blister or sore from your shoes, do not pop it. Apply a bandage and wear a different pair of shoes. Take Care of Your Toenails Cut toenails after bathing, when they are soft. Cut toenails straight across and smooth with a nail file. Avoid cutting into the corners of toes. Do not cut cuticles. If you have neuropathy (or decreased sensation in your feet) a filler operator should always cut your toenails. Be Careful When Exercising Walk and exercise in comfortable shoes. Do not exercise when you have open sores on your feet. Protect Your Feet With Shoes and Socks Never go barefoot. Always protect your feet by wearing shoes or hard-soled slippers or footwear. Avoid shoes with high heels and pointed toes. Avoid shoes that expose your toes or heels (such as open-toed shoes or sandals). These types of shoes increase your risk for injury and potential infections. Try on new footwear with the type of socks you usually wear. Do not wear new shoes for more than an hour at a time. Change your socks daily. Look and feel inside your shoes before putting them on to make sure there are no foreign objects or rough areas. Avoid tight socks. Wear natural-fiber socks (cotton, wool, or a cotton-wool blend). Wear special shoes if your health care provider recommends them. Wear shoes/boots that will protect your feet from various weather conditions (cold, moisture, etc.). Make sure your shoes fit properly. If you have neuropathy (nerve damage), you may not notice that your shoes are too tight. Perform the footwear test described below. Footwear Test Use this simple test to see if your shoes fit correctly: Stand on a piece of paper. (Make sure you are standing and not sitting, because your foot changes shape when you stand.) Trace the outline of your foot. Trace the outline of your shoe. Compare the tracings: Is the shoe too narrow? Is your foot crammed into the shoe? The shoe should be at least 1/2 inch longer than your longest toe and as wide as your foot. Proper Shoe Choices The following types of shoes are best for people with diabetes Closed toes and heels Leather uppers without a seam inside At least 1/2 inch extra space at the end of your longest toe Inside of shoe should be soft with no rough areas Outer sole should be made of stiff material Shoes should be at least as wide as your feet Tips for Foot Care in Diabetes Don't wait to treat a minor foot problem if you have diabetes. Follow your health care provider's guidelines and first aid guidelines. Report foot injuries and infections to your health care provider immediately. Check water temperature with your elbow, not your foot. Do not use a heating pad on your feet. Do not cross your legs. Do not self-treat your corns, calluses, or other foot problems. Go to your health care provider or filler operator to treat these conditions. documented in this encounter [facility] Evaluation note Note Date & Type Note Facility documented in this encounter [facility] Evaluation note Note Date & Type Note Facility documented in this encounter [facility] Reason for referral (narrative) Diagnostic Procedure Only (Routine) - Closed Note Date & Type Note Facility Referral ID Status Reason Start Date Expiration Date V isits Requested Visits Authorized [id number] Closed Auto-Generate d Referral 02/22/2023 03/23/2024 1 1 [facility] Summary Purpose Family History No Family History Records FoundNo Family History Records FoundNo Family History Records Found Advance Directives No Advanced Directives Records FoundDocuments on File Type Date Recorded Patient Powder Monkey Expl anation Advance Directive(s) 03/04/2018 3:54 PM Advance Directive(s) 11/09/2017 6:59 AM Advance Directive(s) 10/24/2017 12:13 PM Additional Source Comments INFORMATION SOURCE (unrecogn ized section and content) DATE CREATED AUTHOR AUTHOR'S ORGANIZ ATION 02/21/2020 [facility] DATE CREATED AUTHOR AUTHOR'S ORGANIZ ATION 05/29/2023 [facility] Source Comments (unrecognize d section and content) In the event this informatio n is protected by the Federal Confidentiality of Alcohol and Drug Abuse Patient Records regulations: The Federal rules restrict any use of the information to criminally investigate or prosecute any alcohol or drug abuse patient.[facility] the event this information is protected by the Federal Confidentiality of Alcohol and Drug Abuse Patient Records regulations: The Federal rules restrict any use of the information to criminally investigate or prosecute any alcohol or drug abuse patient.[facility] Reason for Visit (unrecogniz ed section and content) Reason Comments Radiology US Specialty Diagnoses / Procedures Referred By Letitia leos Referred To Contact US IMAGING Diagnoses 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) Procedures US ABD RIGHT UPPER QUADRANT US ABDOMINAL REAL TIME W/IMAGE LIMITED Honorio Harper MD [address] [place] [address] [facility] [place] [address] Referral ID Status Reason Start Date Expiration Date V isits Requested Visits Authorized [id number] Closed Auto-Generate d Referral 02/22/2023 03/23/2024 1 1 Care Teams (unrecognized sec tion and content) 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 This clinical summary was aggregated from multiple sources. Caution should be exercised in using it in the provision of clinical care. This summary normalizes information from multiple sources, and as a consequence, information in this document may materially change the coding, format and clinical context of patient data. In addition, data may be omitted in some cases. CLINICAL DECISIONS SHOULD BE BASED ON THE PRIMARY CLINICAL RECORDS. [facility] [employer], [facility]. provides no warranty or guarantee of the accuracy or completeness of information in this document.
[2023-07-18 08:39] LABS: Hematocrit 43.7 % (37-47); Hemoglobin 13.7 g/dL (12.0-15.0); Mean Corp Hgb Conc 31.4 g/dL (32-36); Mean Corpuscular Volume 89.2 fL (81-99); Platelet Count 294 K/mm3 (150-450); RBC Distribution Width SD 42.6 fl (35.1-43.9); White Blood Count 7.4 K/mm3 (4.4-11.0)
[2023-07-18 09:44] LABS: ALB/GLOB Ratio 0.9 RATIO (0.9-2.4); AST(SGOT) 9 U/L (15-37); Alanine Aminotransfer ALT/SGPT 19 U/L (13-56); Albumin, Serum 3.2 g/dL (3.2-5.0); Alkaline Phosphatase 91 U/L (45-117); Anion Gap 2 (5-15); BUN 27 mg/dL (7-18); BUN/Creat Ratio 25.2 RATIO (10-20); Calcium,Total 8.7 mg/dL (8.5-10.1); Chloride 105 mmol/L (98-107); Cholesterol 183 mg/dL (200); Creatinine, Serum 1.07 mg/dL (0.55-1.02); EST Glomerular Filtration Rate 54 mL/min (>60); Est Glom Filt Rate - Afr Amer 65 mL/min (>60); Globulin 3.6 g/dL (2.2-4.2); Glucose 162 mg/dL (74-106); High Density Lipoprotein 49 mg/dL; Potassium 4.2 mmol/L (3.5-5.1); Protein, Total 6.8 g/dL (6.4-8.2); Sodium Level 133 mmol/L (136-145); Triglycerides 170 mg/dL; Very Low Density Lipoprotein 34 mg/dL (5-40)
[2023-07-18 09:57] LABS: Microalbumin,Random Urine 58.7 mg/L (NO RANGE EST.)
[2023-07-18 11:30] LABS: Hemoglobin A1c 6.8 % (3.8-5.6)
== END | disposition home or self-care (01) ==
LOC: LAB 08:08
PROVIDERS: Nurse Practitioner Family
DX: E11.65 Type 2 diabetes mellitus with hyperglycemia (principal); E78.5 Hyperlipidemia, unspecified
CPT/HCPCS: 36415; 80053; 80061; 82043; 83036; 85027

== ENCOUNTER 2023-09-13 14:46 | Emergency (ER) | payer MEDICARE, SELFPAY ==
[2023-09-13 14:47] VITALS: BP 173/102; PULSE 66; RESP 16; TEMP 36.1; O2SAT 100; BMI 38.7
--- NOTE | 2023-09-13 15:23 | ED.VIS.CHEST ---
HPI History of Present Illness Chief Complaint: Chest Pain Informant: patient and spouse/S.O. Narrative Narrative: 68-year-old female history of congestive heart failure and diabetes presenting to the emergency room with weeks of a bandlike sensation around her chest. She states she in addition to this pressure-like sensation she has exquisite pain in the same distribution with movement deep breathing putting her arms over her head and sitting forward. Nothing is really changed today but when she was in the shower she went to wash her hair and symptoms got worse and made her feel like she may pass out. She notes a minimal cough. No reported fevers. No significant leg swelling. No prior history of DVT/PE. If she is at rest she does not feel her symptoms she notes a pacemaker/defibrillator. She does not know if she has had any cardiac dysrhythmias in the past [facility] Medical History Abnormal electrocardiogram BALWINDER (acute kidney injury) Atherosclerotic heart disease of [place] coronary artery without angina pectoris Carotid artery disease Chronic systolic (congestive) heart failure Diabetes mellitus, type II Dilated cardiomyopathy Essential hypertension Hyperlipidemia Hypertension Nonrheumatic mitral (valve) insufficiency Obesity (BMI 30-39.9) NICOLLE (obstructive sleep apnea) Pure hypercholesterolemia Systolic CHF, acute Vertigo Home Medications gabapentin 300 mg capsule 600 mg PO QHS NERVE PAIN 01/12/16 [History Last Taken 10/25/19 20:00] aspirin 81 mg tablet,delayed release 81 mg PO DAILY@0800 HEALTH MAINTENANCE 01/26/17 [History Last Taken 10/25/19 20:00] cholecalciferol (vitamin D3) 50 mcg (2,000 unit) capsule 2,000 unit PO PAYNE SUPPLEMENT 01/26/17 [History Last Taken 10/19/19] fluoxetine 40 mg capsule (Prozac) 40 mg PO DAILY depression 11/01/18 [History Last Taken 10/25/19 08:00] bupropion HCl 150 mg 24 hr tablet, extended release 150 mg PO QAM 07/23/20 [History Last Taken Unknown] cetirizine 10 mg tablet (Zyrtec) 10 mg PO DAILY PRN Allergies 07/23/20 [History Last Taken Unknown] magnesium chloride 71.5 mg (magnesium chloride) tablet,delayed release (Slow-Mag) 71.5 mg PO DAILY 07/23/20 [History Last Taken Unknown] meclizine 25 mg tablet 25 mg PO TID PRN dizziness 07/23/20 [History Last Taken Unknown] Handicap Parking Placard #1 ea 05/09/22 [Rx Last Taken Unknown] ondansetron 4 mg disintegrating tablet 4 mg PO Q6H PRN nausea and vomiting #7 tabs 06/01/22 [Rx Last Taken Unknown] semaglutide 2 mg/dose (8 mg/3 mL) subcutaneous pen injector (Ozempic) 2 mg (0.75 mL) subcut QWEEK #3 mL 12/28/22 [Rx Last Taken Unknown] amlodipine 5 mg tablet 5 mg PO DAILY #90 tabs 02/01/23 [Rx Last Taken Unknown] carvedilol 25 mg tablet 25 mg PO BID #180 tabs 02/01/23 [Rx Last Taken Unknown] ezetimibe 10 mg tablet (Zetia) 10 mg PO DAILY #90 tabs 02/01/23 [Rx Last Taken Unknown] furosemide 20 mg tablet 20 mg PO .COMPLEX water pill #90 tabs 02/01/23 [Rx Last Taken Unknown] furosemide 40 mg tablet 40 mg PO BREAKFAST Pt takes 20 mg tablet at lunchtime #90 tabs 02/01/23 [Rx Last Taken Unknown] insulin aspart U-100 100 unit/mL (3 mL) subcutaneous pen 2 unit subcut .COMPLEX Diabetes 07/02/23 [History Last Taken Unknown] insulin detemir U-100 100 unit/mL (3 mL) subcutaneous pen 30 unit subcut .morning 07/02/23 [History Last Taken Unknown] omeprazole 20 mg tablet,delayed release 40 mg PO DAILY 07/02/23 [History Last Taken Unknown] glipizide 5 mg tablet 5 mg PO DAILY 07/04/23 [History Last Taken Unknown] sacubitril 97 mg-valsartan 103 mg tablet (Entresto) 1 tab PO BID #180 tabs 09/12/23 [Rx Last Taken Unknown] cyclobenzaprine 10 mg tablet 5 mg (1/2 x 10 mg) PO TID PRN Muscle Spasm #20 TABLETS 09/13/23 [Rx Last Taken Unknown] hydrocodone-acetaminophen 5-325mg 5mg-325mg 1 tab PO Q6H PRN PRN Pain 3 days #10 TABLETS 09/13/23 [Rx Last Taken Unknown] Allergy/AdvReac Type Severity Reaction Status Date / Time red dye Allergy Hives Verified 09/13/23 14:48 Yaxmdad-JLE-SlF Reductase AdvReac Severe Myalgias Verified 09/13/23 14:48 Inhibitor [Qmynoli-Zwg-Qkb Reductase Inhibitor] Family History Father , Lung cancer Lung cancer Mother , Breast cancer Breast cancer Brother Cancer lymphoma Surgical History Cardiac defibrillator in situ History of bilateral breast reduction surgery History of bilateral foot surgery History of eye surgery History of hysterectomy History of left heart catheterization (LHC) (~05/26/15) S/P hysterectomy Status post breast reduction Status post foot surgery Social History Smoking Status: Former smoker quit date: 06/11/06 alcohol intake: never substance use type: does not use caffeine: No what type of physical activity do you participate in: none seatbelt use: always do you feel safe at home: Yes ROS ROS ED Constitutional Constitutional ED: Denies chills, fever(s) or weight loss Eyes Eyes: Denies change in vision or diplopia ENT ENT ED: Denies ear pain, rhinorrhea or sore throat Cardiovascular Cardiovascular: Reports chest pain; Denies orthopnea, palpitations or racing heartbeat Respiratory/Chest Respiratory/Chest: Reports cough; Denies dyspnea or orthopnea Gastrointestinal Gastrointestinal: Denies abdominal pain, diarrhea, nausea or vomiting Genitourinary Genitourinary ED: Denies dysuria, hematuria or urinary frequency Musculoskeletal Musculoskeletal: Denies arthralgias or myalgias Integumentary Denies abscess or rash Neurologic Neurologic: Denies headache(s) or weakness Psychiatric Psychiatric: Denies anxiety, depression, suicidal ideation or suicidal thoughts Endocrine Endocrinology: Denies polydipsia, polyphagia or polyuria Allergic/Immunologic Allergic/Immunologic ED: Denies mouth swelling, tongue swelling or urticaria EXAM Physical Exam Const Vital Signs: 09/13/23 14:47 09/13/23 15:04 09/13/23 15:46 Temperature 97 F L Temperature Source Temporal Pulse Rate 66 87 Respiratory Rate 16 16 Respiratory Effort Normal Blood Pressure 173/102 H 129/45 H Blood Pressure Mean 125 73 Pulse Ox 100 91 Oxygen Delivery Method Room Air Room Air 09/13/23 16:00 09/13/23 17:00 09/13/23 18:00 Temperature Temperature Source Pulse Rate 67 70 60 Respiratory Rate 16 16 14 Respiratory Effort Blood Pressure 124/55 H 122/48 H 141/79 H Blood Pressure Mean 78 72 99 Pulse Ox 94 92 97 Oxygen Delivery Method Room Air Room Air Room Air 09/13/23 18:06 Temperature 97 F L Temperature Source Pulse Rate 60 Respiratory Rate 14 Respiratory Effort Blood Pressure 141/79 H Blood Pressure Mean 99 Pulse Ox 97 Oxygen Delivery Method Positive well nourished, well developed and obese General Appearance ED: well developed Nutritional Appearance: obese HEENT Reports normocephalic, head/scalp atraumatic and moist mucous membranes Eyes PERRL and EOMs intact bilaterally Neck no lymphadenopathy, supple and no JVD Chest Wall Chest Narrative: Patient notes exquisite tenderness to palpation along the mid to lower ribs starting posteriorly and along the ribs into the mid axillary line and then anteriorly. It reproduces her pain when I palpate her when asked her to take a deep breath or to sit forward. Resp normal respiratory effort and clear to auscultation bilaterally Cardio regular rate, regular rhythm and no murmurs GI normal to inspection, nondistended, normoactive bowel sounds and non-tender Palpation: soft Back/Spine no CVA tenderness and normal ROM Extremity normal to inspection General Extremety ED: Negative for edema General Extremity: Negative for edema Neuro oriented x3 and CN's II-XII intact bilaterally Sensorium / Orientation: alert Motor Exam: strength 5/5 throughout Psych mental status grossly normal Mood & Affect: Negative for depressed or tearful Skin no rashes or lesions noted and no wounds MDM MDM MDM Narrative Medical decision making narrative: Patient's remained in a paced rhythm. Only 1 troponin was obtained as her symptoms have been constant for days. My independent interpretation of the chest x-ray is no acute findings. Normal mediastinal silhouette. White count 9.9 hemoglobin 15 platelet count of 343. Creatinine 1.04 with a BUN of 22 CO2 26 anion gap 6 Clinically the patient's pain is very reproducible with movement of the torso movement of the arms deep breathing and with touch. I doubt that this is pulmonary embolism or ACS. I do not see evidence of pneumothorax pleural effusions or intra-abdominal findings given the lack of abdominal symptoms and a benign abdomen. I think there is a high probability that this is musculoskeletal in nature. We can try some pain medication and muscle relaxer. Would recommend PCP follow-up. History & Record Review Discussion w/independent historian: Patient and Significant other Lab Data Attestation: I reviewed the patient's lab results. Labs: Laboratory Results - last 24 hr 09/13/23 15:00 WBC 9.9 RBC 5.39 Hgb 15.0 Hct 46.9 MCV 87.0 MCH 27.8 MCHC 32.0 RDW Std Deviation 40.1 RDW Coeff of Ivet 12.8 Plt Count 343 MPV 9.5 Immature Gran % (Auto) 0.500 Neut % (Auto) 64.8 Lymph % (Auto) 26.6 [place] % (Auto) 6.1 Eos % (Auto) 1.4 Baso % (Auto) 0.6 Absolute Neuts (auto) 6.4 Absolute Lymphs (auto) 2.63 Nucleated RBC % 0 Sodium 137 Potassium 3.9 Chloride 105 Carbon Dioxide 26.0 Anion Gap 6 BUN 22 H Creatinine 1.04 H Estim Creat Clear Calc 60.79 Est GFR (MDRD) Af Amer 67 Est GFR (MDRD) Non-Af 56 L BUN/Creatinine Ratio 21.2 H Glucose 124 H Calcium 9.2 Troponin I High Sens 5 Radiography Diagnostic Testing: Clinical Impression(s) from Imaging Studies Chest X-Ray 09/13/23 15:32 IMPRESSION: Nonspecific elevation of right hemidiaphragm and mild prominence of markings in right lower lobe. Electronically Signed: Kiran Bolton MD at 16:28 EDT , EKG Initial EKG: Attestation: I personally reviewed and interpreted this EKG as follows: Comments: AV dual paced rhythm at a ventricular rate of 64 bpm Discharge Plan Triage Chief Complaint: Chest Pain ED Provider: Justyn Lu Dx/Rx/DC Orders Clinical Impression: Chest pain, Atherosclerotic heart disease of [place] coronary artery without angina pectoris, Diabetes mellitus, type II, Essential hypertension, Acute chest wall pain Prescriptions: New cyclobenzaprine [cyclobenzaprine] 10 mg tablet 5 mg PO TID PRN (Reason: Muscle Spasm) Qty: 20 0RF hydrocodone-acetaminophen [hydrocodone-acetaminophen] 5-325 mg tablet 1 tab PO Q6H PRN PRN (Reason: Pain) 3 Days Qty: 10 0RF No Action fluoxetine [Prozac] 40 mg capsule 40 mg PO DAILY cetirizine [Zyrtec] 10 mg tablet 10 mg PO DAILY PRN (Reason: Allergies) bupropion HCl 150 mg tablet extended release 24 hr 150 mg PO QAM meclizine 25 mg tablet 25 mg PO TID PRN (Reason: dizziness) Slow-Mag 71.5 mg tablet,delayed release (DR/EC) 71.5 mg PO DAILY omeprazole 20 mg tablet,delayed release (DR/EC) 40 mg PO DAILY Ozempic 2 mg/dose (8 mg/3 mL) pen injector 2 mg subcut QWEEK Qty: 3 5RF carvedilol 25 mg tablet 25 mg PO BID Qty: 180 3RF Rx Instructions: must administer with a meal/food amlodipine 5 mg tablet 5 mg PO DAILY Qty: 90 3RF ezetimibe [Zetia] 10 mg tablet 10 mg PO DAILY Qty: 90 3RF furosemide 40 mg tablet 40 mg PO BREAKFAST Qty: 90 3RF furosemide 20 mg tablet 20 mg PO .COMPLEX Qty: 90 3RF Rx Instructions: 20 mg orally daily at lunchtime (takes a 40 mg tablet every morning); glipizide 5 mg tablet 5 mg PO DAILY gabapentin 300 MG capsule 600 mg PO QHS Patient Comments: nerve pain aspirin 81 MG tablet 81 mg PO DAILY@0800 Patient Comments: [facility] cholecalciferol (vitamin D3) 2,000 UNIT capsule 2,000 unit PO PAYNE insulin aspart U-100 100 unit/mL (3 mL) insulin pen 2 unit SC .COMPLEX Rx Instructions: 8u before meals insulin detemir U-100 100 unit/mL (3 mL) insulin pen 30 unit subcut .morning ondansetron 4 mg tablet,disintegrating 4 mg PO Q6H PRN (Reason: nausea and vomiting) Qty: 7 0RF (DME) Handicap Parking Placard See Rx Instructions .Route .MEDSUPPLY Qty: 1 0RF Rx Instructions: As directed Entresto 97-103 mg tablet 1 tab PO BID Qty: 180 3RF [facility],Yary Chambers [Primary Care Provider] - 3-5 Days Disposition Disposition: Home, Self Care Discharge Date/Time: 09/13/23 18:11
--- NOTE | 2023-09-13 15:32 | RAD_ITS ---
STUDY: X-RAY CHEST REASON FOR EXAM: Female, 68 years old. chest pain TECHNIQUE: AP portable COMPARISON: None. FINDINGS: Nonspecific elevation of right hemidiaphragm and minor prominence of the markings at the right lung base likely atelectasis There is no demonstrated pleural abnormality. Pacer noted on the left with electrodes in satisfactory position Normal size heart. Normal mediastinum and margaret. Normal visualized pulmonary arteries. Mildly calcified aortic arch and descending thoracic aorta. Normal visualized thoracic spine. Normal visualized ribs, clavicles, and shoulders. There is no demonstrated abnormality of the visualized soft tissue structures of the upper abdomen. RAD/Chest 1 View (Portable) IMPRESSION: Nonspecific elevation of right hemidiaphragm and mild prominence of markings in right lower lobe. Electronically Signed: Kiran Bolton MD at 16:28 EDT ,
[2023-09-13] MEDS: Ketorolac 15 MG/ML Vial IV (15:37)
[2023-09-13 15:45] LABS: Absolute Lymphocyte Count 2.63 X10^3/uL (0.83-4.51); Absolute Neutrophil Count 6.4 X10^3/uL (2.0-7.7); Basophil# 0.06 X10^3/uL; Basophil% 0.6 % (0-1); Eosinophil# 0.14 X10^3/uL; Eosinophils% 1.4 % (0-5); Hematocrit 46.9 % (37-47); Lymphocyte # 2.63 X10^3/ul (0.83-4.51); Lymphocyte % 26.6 % (19-41); Mean Corpuscular Hgb 27.8 pg (27.0-32.0); Mean Platelet Vol. 9.5 fl (6.2-12.0); Monocyte% 6.1 % (0-10); NRBC Flagged by Analyzer 0 % (0-5); Neutrophil # 6.39 X10^3/uL (2.7-7.7); Neutrophil % 64.8 % (47-70); Platelet Count 343 K/mm3 (150-450); RBC Distribution Width CV 12.8 % (11.6-14.6); RBC Distribution Width SD 40.1 fl (35.1-43.9); Red Blood Count 5.39 M/mm3 (4.2-5.4); White Blood Count 9.9 K/mm3 (4.4-11.0)
[2023-09-13 15:46] VITALS: BP 129/45; PULSE 87; RESP 16; O2SAT 91
[2023-09-13 16:00] VITALS: BP 124/55; PULSE 67; RESP 16; O2SAT 94
[2023-09-13 16:07] LABS: Anion Gap 6 (5-15); BUN 22 mg/dL (7-18); BUN/Creat Ratio 21.2 RATIO (10-20); Calcium,Total 9.2 mg/dL (8.5-10.1); Chloride 105 mmol/L (98-107); Creatinine, Serum 1.04 mg/dL (0.55-1.02); EST Glomerular Filtration Rate 56 mL/min (>60); Est Glom Filt Rate - Afr Amer 67 mL/min (>60); Estimated Creatinine Clearance 60.79 ml/min; Glucose 124 mg/dL (74-106); Potassium 3.9 mmol/L (3.5-5.1); Sodium Level 137 mmol/L (136-145); Troponin-I HS 5 pg/mL (3.0-54.0)
[2023-09-13 17:00] VITALS: BP 122/48; PULSE 70; RESP 16; O2SAT 92
[2023-09-13 18:00] VITALS: BP 141/79; PULSE 60; RESP 14; O2SAT 97
[2023-09-13 18:06] VITALS: BP 141/79; PULSE 60; RESP 14; TEMP 36.1; O2SAT 97
== END 2023-09-13 18:11 | disposition home or self-care (01) ==
PROVIDERS: Emergency Provider Emergency Medicine; Visit Provider Emergency Medicine
DX: R07.89 Other chest pain (principal); I11.0 Hypertensive heart disease with heart failure; I50.22 Chronic systolic (congestive) heart failure; E11.9 Type 2 diabetes mellitus without complications; I25.10 Atherosclerotic heart disease of native coronary artery without angina pectoris; Z87.891 Personal history of nicotine dependence
CPT/HCPCS: 71045; 80048; 84484; 85025; 93005; 96374; 99284; A4216

== ENCOUNTER → 2024-01-01 | Outpatient (CLI) | payer MEDICARE, SELFPAY ==
[2024-01-01 12:50] LABS: Absolute Lymphocyte Count 1.81 X10^3/uL (0.83-4.51); Absolute Neutrophil Count 4.1 X10^3/uL (2.0-7.7); Basophil# 0.08 X10^3/uL; Basophil% 1.2 % (0-1); Eosinophil# 0.13 X10^3/uL; Hematocrit 46.1 % (37-47); Hemoglobin 14.3 g/dL (12.0-15.0); Lymphocyte # 1.81 X10^3/ul (0.83-4.51); Lymphocyte % 27.8 % (19-41); Mean Corpuscular Hgb 27.3 pg (27.0-32.0); Mean Corpuscular Volume 88.1 fL (81-99); Monocyte# 0.41 X10^3/uL; Monocyte% 6.3 % (0-10); NRBC Flagged by Analyzer 0 % (0-5); Neutrophil # 4.05 X10^3/uL (2.7-7.7); Neutrophil % 62.2 % (47-70); Platelet Count 280 K/mm3 (150-450); RBC Distribution Width CV 13.9 % (11.6-14.6); RBC Distribution Width SD 44.2 fl (35.1-43.9); Red Blood Count 5.23 M/mm3 (4.2-5.4); White Blood Count 6.5 K/mm3 (4.4-11.0)
[2024-01-01 13:36] LABS: AST(SGOT) 14 U/L (15-37); Alanine Aminotransfer ALT/SGPT 21 U/L (13-56); Albumin, Serum 3.3 g/dL (3.2-5.0); Alkaline Phosphatase 85 U/L (45-117); Anion Gap 11 (5-15); BUN 29 mg/dL (7-18); BUN/Creat Ratio 27.9 RATIO (10-20); Calcium,Total 8.2 mg/dL (8.5-10.1); Chloride 109 mmol/L (98-107); Creatinine, Serum 1.04 mg/dL (0.55-1.02); EST Glomerular Filtration Rate 56 mL/min (>60); Est Glom Filt Rate - Afr Amer 67 mL/min (>60); Globulin 3.4 g/dL (2.2-4.2); Glucose 192 mg/dL (74-106); Potassium 4.2 mmol/L (3.5-5.1); Protein, Total 6.7 g/dL (6.4-8.2); Sodium Level 137 mmol/L (136-145); Thyroid Stim Hormone (TSH) 4.04 uIU/mL (0.358-3.74)
[2024-01-01 13:47] LABS: Microalbumin,Random Urine 16.6 mg/L (NO RANGE EST.)
== END | disposition home or self-care (01) ==
LOC: VSLAB 09:19
PROVIDERS: PCP Nurse Practitioner Family; Visit Provider Nurse Practitioner Family
DX: E11.65 Type 2 diabetes mellitus with hyperglycemia (principal)
CPT/HCPCS: 36415; 80053; 82043; 84443; 85025

== ENCOUNTER 2024-02-17 16:58 | Inpatient (IN) | payer MEDICARE, SELFPAY ==
[2024-02-17] VITALS (10 sets, daily range): BP systolic 168–219; BP diastolic 87–121; PULSE 66–124; RESP 16–28; TEMP 35.5–36.8; O2SAT 91–99; BMI 41.6; BMI 40.8
--- NOTE | 2024-02-17 17:32 | EDS_ITS ---
HPI HPI - GI History of Present Illness Chief Complaint: Abd Pain Detail of Chief Complaint: Nausea and vomiting after taking Ozempic Informant: patient and spouse/S.O. Abdominal Pain/Flank Pain Onset: Today and Hours Context: Gradual Onset Timing: Continuous Quality: Cramping Location: Diffuse Current Severity: Mild Maximum Severity: Mild Worsened by: Nothing Relieved by: Nothing Nausea/Vomiting/Emesis GI Symptom: Positive for Nausea and Vomiting Onset: Today Severity: Moderate Diarrhea/Melena/Hematochezia GI Symptom: Negative for Diarrhea, Melena or Hematochezia Associated Symptoms Associated Symptoms: Negative for Dysuria, Frequency, Hematuria or Urgency Narrative Narrative: 68-year-old female history of CAD, diabetes, cardiomyopathy with a prior abdominal hysterectomy. States that she took Ozempic and about half an hour after taking it started having nausea and vomiting. Previously when she was on Ozempic she had nausea before and never had vomiting like this. Complaining of some mild abdominal cramping. No diarrhea. No dysuria. No fever. Said she felt fine this morning and all day yesterday. She thinks it is related to the medication. Prior similar symptoms: No Recent Illness/Hospitalization: No PFSH PFSH Medical History Vertigo Carotid artery disease Pure hypercholesterolemia Essential hypertension Atherosclerotic heart disease of [place] coronary artery without angina pectoris Nonrheumatic mitral (valve) insufficiency Dilated cardiomyopathy Chronic systolic (congestive) heart failure BALWINDER (acute kidney injury) Abnormal electrocardiogram Systolic CHF, acute Hypertension Obesity (BMI 30-39.9) Hyperlipidemia Diabetes mellitus, type II N[place]OLLE (obstructive sleep apnea) Home Medications ?Medication ?Instructions ?Recorded ?Last Taken ?Type gabapentin 300 mg capsule 600 mg PO QHS NERVE PAIN 01/12/16 10/25/19 20:00 History aspirin 81 mg tablet,delayed 81 mg PO DAILY@0800 HEALTH 01/26/17 10/25/19 20:00 History release MAINTENANCE cholecalciferol (vitamin D3) 50 2,000 unit PO PAYNE SUPPLEMENT 01/26/17 10/19/19 History mcg (2,000 unit) capsule fluoxetine 40 mg capsule (Prozac) 40 mg PO DAILY depression 11/01/18 10/25/19 08:00 History cetirizine 10 mg tablet (Zyrtec) 10 mg PO DAILY PRN Allergies 07/23/20 Unknown History magnesium chloride 71.5 mg 71.5 mg PO DAILY 07/23/20 Unknown History (magnesium chloride) tablet,delayed release (Slow-Mag) meclizine 25 mg tablet 25 mg PO TID PRN dizziness 07/23/20 Unknown History Handicap Parking Placard #1 ea 05/09/22 Unknown Rx ondansetron 4 mg disintegrating 4 mg PO Q6H PRN nausea and 06/01/22 Unknown Rx tablet vomiting #7 tabs amlodipine 5 mg tablet 5 mg PO DAILY #90 tabs 02/01/23 Unknown Rx ezetimibe 10 mg tablet (Zetia) 10 mg PO DAILY #90 tabs 02/01/23 Unknown Rx omeprazole 20 mg tablet,delayed 40 mg PO DAILY 07/02/23 Unknown History release glipizide 5 mg tablet 5 mg PO DAILY 07/04/23 Unknown History sacubitril 97 mg-valsartan 103 mg 1 tab PO BID #180 tabs 09/12/23 Unknown Rx tablet (Entresto) cyclobenzaprine 10 mg tablet 5 mg (1/2 x 10 mg) PO TID PRN 09/13/23 Unknown Rx Muscle Spasm #20 TABLETS hydrocodone-acetaminophen 5-325mg 1 tab PO Q6H PRN PRN Pain 3 days 09/13/23 Unknown Rx 5mg-325mg #10 TABLETS Novolog FlexPen U-100 Insulin 100 12 unit (0.12 mL) subcut TID #30 mL 10/04/23 Unknown Rx unit/mL (3 mL) subcutaneous (insulin aspart U-100) carvedilol 25 mg tablet 25 mg PO BID #180 tabs 12/31/23 Unknown Rx furosemide 20 mg tablet 20 mg PO QDAY water pill #30 tabs 12/31/23 Unknown Rx insulin aspart U-100 100 unit/mL 12 unit subcut .COMPLEX Diabetes 12/31/23 Unknown History (3 mL) subcutaneous pen insulin degludec 100 unit/mL (3 14 unit subcut DAILY 12/31/23 Unknown History mL) subcutaneous pen (Tresiba FlexTouch U-100 insulin) Allergy/AdvReac Type Severity Reaction Status Date / Time red dye Allergy Hives Verified 02/17/24 17:04 [id number]-[id number] Reductase AdvReac Severe Myalgias Verified 02/17/24 17:04 Inhibitor (Luirzcq-Ejw-Tgq Reductase Inhibitor) Family History Father , Lung cancer Lung cancer Mother , Breast cancer Breast cancer Brother Cancer lymphoma Surgical History History of eye surgery History of left heart catheterization (LHC) (~05/26/15) Status post foot surgery Status post breast reduction S/P hysterectomy History of bilateral breast reduction surgery History of bilateral foot surgery History of hysterectomy Cardiac defibrillator in situ Social History Smoking Status: Former smoker quit date: 06/11/06 alcohol intake: never substance use type: does not use caffeine: No what type of physical activity do you participate in: none seatbelt use: always do you feel safe at home: Yes ROS ROS ED ROS Narrative Nausea and vomiting. Abdominal cramping. Constitutional Constitutional ED: Denies chills or fever(s) ENT ENT ED: Denies ear pain Respiratory/Chest Respiratory/Chest: Denies cough or dyspnea Gastrointestinal Gastrointestinal: Reports abdominal pain, nausea and vomiting; Denies constipation, diarrhea or melena Genitourinary Genitourinary ED: Denies dysuria or hematuria Musculoskeletal Musculoskeletal: Denies arthralgias, back pain or myalgias Integumentary Denies abscess, Abrasions or rash Neurologic Neurologic: Denies headache(s) Psychiatric Psychiatric: Denies anxiety or depression Endocrine Endocrinology: Denies polydipsia Hematologic/Lymphatic Hematologic/Lymphatic: Denies easy bleeding, easy bruising or lymphadenopathy Allergic/Immunologic Allergic/Immunologic ED: Denies mouth swelling, tongue swelling or urticaria EXAM Physical Exam Narrative Exam Narrative: 68-year-old female actively retching. Vital signs are stable afebrile. H EENT exam mild dry mucous members. Pupils round reactive light. No trauma. Lungs clear to auscultation. Heart regular rhythm rate about 66 no murmur. Abdomen soft, nontender, nondistended, normal bowel sounds without peritoneal signs. No obstruction. No localizing tenderness. No hernia or mass. Positive bowel sounds. Moving all 4 extremities. Nontender. Neurologically she is awake and alert no focal motor deficits. Answer questions following commands. Back nontender. Const Vital Signs: 02/17/24 17:00 02/17/24 18:59 02/17/24 19:37 Temperature 97.8 F Temperature Source Temporal Pulse Rate 66 81 124 H Respiratory Rate 20 H 28 H 22 H Blood Pressure 168/109 H 219/101 H 169/87 H Blood Pressure Mean 128 140 114 Pulse Ox 95 95 Oxygen Delivery Method Room Air Room Air 02/17/24 20:03 Temperature Temperature Source Pulse Rate 83 Respiratory Rate Blood Pressure 218/107 H Blood Pressure Mean 144 Pulse Ox 94 Oxygen Delivery Method Room Air Positive well nourished and well developed; Negative for cachectic, contractures or unkempt General Appearance ED: well developed and NAD; Negative for unkempt, cachectic, contractures or pallor Nutritional Appearance: Negative for cachectic HEENT Reports dry mucous membranes; Denies moist mucous membranes normocephalic and atraumatic; Negative for trauma or tenderness Mouth ED: Yes dry mucous membranes Mouth: dry mucous membranes Eyes PERRL and EOMs intact bilaterally Neck no lymphadenopathy, supple and no JVD General: Negative for tenderness Carotids: Negative for other Resp normal respiratory effort and clear to auscultation bilaterally Effort and Inspection: Negative for respiratory distress Auscultation: Negative for rales, rhonchi, wheezes, diminished lung sounds or ot her Cardio regular rate, regular rhythm, S1 normal heart sound, S2 normal heart sound and no murmurs Rate: Negative for bradycardia or tachycardic Rhythm: Negative for abnormal rhythm GI non-tender, non-distended and no masses Inspection: Negative for abdominal distention Auscultation: normoactive bowel sounds Palpation: soft; Negative for tender, guarding, hernia, mass, pulsatile mass or rebound tenderness present Back/Spine no CVA tenderness General Back: Negative for CVA tenderness Cervical Spine: Negative for cervical spine tenderness Thoracic Spine / Upper Back: Negative for thoracic spinal tenderness Lumbar Spine / Lower Back: Negative for lumbar spinal tenderness Extremity full ROM General Extremety ED: Negative for edema or tenderness General Extremity: Negative for edema Neuro CN's II-XII intact bilaterally and moves all extremities Sensorium / Orientation: alert, oriented to person, oriented to place and oriented to time; Negative for orientation impaired or confused Motor Exam: strength 5/5 throughout; Negative for general weakness or strength abnormal Psych mental status grossly normal and thought process normal Appearance: Negative for unkempt Attitude: No agitated Mood & Affect: Negative for depressed, anxious or tearful Skin no wounds General Skin Exam: Negative for jaundice or pallor Lesions: no lesions Rashes: no rashes Trauma: Negative for abrasion Nails: Negative for discolored MDM MDM MDM Narrative Medical decision making narrative: 68-year-old female with nausea and vomiting post Ozempic. Benign abdomen. Treated with IV fluids for dehydration and Zofran for nausea. Screening labs and only she needs any imaging at this time. Repeat exam at 7:15 PM patient's received several doses of morphine and nausea medication. She now is having difficulty with her speech which she was not had when she first came in. We will obtain a CTA of her head and neck. She has no focal motor deficits. No weakness. But she is having obvious speech difficulty. Repeat exam patient is improving at 8 PM. She was evaluated by the [facility] stroke neurologist. She is not a TNK candidate at this time. Her symptoms are resolving. Her speech is coming back to normal. Her CT of her brain showed chronic changes as did her CTA but no acute bleed or signs of an acute stroke. No large vessel acute occlusion. Her troponin is elevated. She has had no chest pain. Her EKG is a paced rhythm. I will speak to the hospitalist about admission and further evaluation. History & Record Review Discussion w/independent historian: Patient Additional record(s) reviewed:: Prior inpatient record, Prior outpatient record, Prior ED visit and Prior labs Lab Data Attestation: I reviewed the patient's lab results. Lab results narrative: CBC shows a white count 1.4. H&H 15.3 and 48. Platelets 288. Electrolytes show potassium 3.4. Gap 9. Normal BUN and creatinine. Glucose 194. Liver enzymes normal. Lipase normal. Troponin 201. Labs: Laboratory Results - last 24 hr 02/17/24 17:35 WBC 11.4 H RBC 5.56 H Hgb 15.3 H Hct 48.0 H MCV 86.3 MCH 27.5 MCHC 31.9 L RDW Std Deviation 40.3 RDW Coeff of Ivet 12.8 Plt Count 288 MPV 9.8 Immature Gran % (Auto) 0.300 Neut % (Auto) 82.0 H Lymph % (Auto) 13.3 L [place] % (Auto) 3.4 Eos % (Auto) 0.4 Baso % (Auto) 0.6 Absolute Neuts (auto) 9.4 H Absolute Lymphs (auto) 1.52 Nucleated RBC % 0 Sodium 138 Potassium 3.4 L Chloride 102 Carbon Dioxide 27.0 Anion Gap 9 BUN 17 Creatinine 0.97 Est GFR (MDRD) Af Amer 73 Est GFR (MDRD) Non-Af 60 BUN/Creatinine Ratio 17.5 Glucose 194 H Calcium 9.5 Total Bilirubin 1.10 H AST 13 L ALT 20 Alkaline Phosphatase 106 Troponin I High Sens 201 H* Total Protein 7.2 Albumin 3.6 Globulin 3.6 Albumin/Globulin Ratio 1.0 Lipase 44 Radiography Chest X-Ray - ED: 1 View, Read by ED Physician, Lungs, Mediastinum, Bony Structures, No Acute Disease, Chronic Changes and Cardiomegaly Diagnostic Testing: Clinical Impression(s) from Imaging Studies Head/Neck CTA 02/17/24 19:19 IMPRESSION: Mild atherosclerotic changes of the head and neck with most severe stenosis of the P2 segment of the left posterior cerebral Electronically Signed: Kiran Bolton MD at 19:57 EDT , Brain CT 02/17/24 19:26 IMPRESSION: Moderate periventricular white matter ischemic changes and possible tiny old right lacunar infarct. No mass or acute bleed. If concern for acute infarct MRI recommended Electronically Signed: Kiran Bolton MD at 19:42 EDT , ADDENDUM: 02/17/24 1950 IMPRESSION: Moderate periventricular white matter ischemic changes and possible tiny old right lacunar infarct. No mass or acute bleed. If concern for acute infarct MRI recommended N.B. : The above Results were Read Back by Kiran Bolton MD to Antonio Herr MD, and understanding confirmed on 02/17/2024 19:44:03 (ET). Electronically Signed: Kiran Bolton MD at 19:42 EDT , Discharge Plan Triage Chief Complaint: Abd Pain ED Provider: Antonio Herr Dx/Rx/DC Orders Clinical Impression: Intractable nausea and vomiting, Medication reaction, Dysarthria, Hx of cardiomyopathy, History of diabetes mellitus, Elevated troponin Prescriptions: No Action fluoxetine [Prozac] 40 mg capsule 40 mg PO DAILY cetirizine [Zyrtec] 10 mg tablet 10 mg PO DAILY PRN (Reason: Allergies) meclizine 25 mg tablet 25 mg PO TID PRN (Reason: dizziness) Slow-Mag 71.5 mg tablet,delayed release (DR/EC) 71.5 mg PO DAILY omeprazole 20 mg tablet,delayed release (DR/EC) 40 mg PO DAILY amlodipine 5 mg tablet 5 mg PO DAILY Qty: 90 3RF ezetimibe [Zetia] 10 mg tablet 10 mg PO DAILY Qty: 90 3RF glipizide 5 mg tablet 5 mg PO DAILY insulin degludec [Tresiba FlexTouch U-100] 100 unit/mL (3 mL) insulin pen 14 unit subcut DAILY carvedilol 25 mg tablet 25 mg PO BID Qty: 180 3RF Rx Instructions: must administer with a meal/food furosemide 20 mg tablet 20 mg PO QDAY Qty: 30 11RF gabapentin 300 MG capsule 600 mg PO QHS Patient Comments: nerve pain aspirin 81 MG tablet 81 mg PO DAILY@0800 Patient Comments: [facility] cholecalciferol (vitamin D3) 2,000 UNIT capsule 2,000 unit PO PAYNE insulin aspart U-100 100 unit/mL (3 mL) insulin pen 12 unit SC .COMPLEX Rx Instructions: 12 units subcutaneously before meals; ondansetron 4 mg tablet,disintegrating 4 mg PO Q6H PRN (Reason: nausea and vomiting) Qty: 7 0RF cyclobenzaprine [cyclobenzaprine] 10 mg tablet 5 mg PO TID PRN (Reason: Muscle Spasm) Qty: 20 0RF hydrocodone-acetaminophen [hydrocodone-acetaminophen] 5-325 mg tablet 1 tab PO Q6H PRN PRN (Reason: Pain) 3 Days Qty: 10 0RF (DME) Handicap Parking Placard See Rx Instructions .Route .MEDSUPPLY Qty: 1 0RF Rx Instructions: As directed Entresto 97-103 mg tablet 1 tab PO BID Qty: 180 3RF insulin aspart U-100 [Novolog FlexPen U-100 Insulin] 100 unit/mL (3 mL) insulin pen 12 unit subcut TID Qty: 30 2RF Primary Care Provider: Sarah Toth Referrals: Sarah Toth, [facility] [Primary Care Provider] - Print Language: [place] Disposition Disposition: Acute Care Hospital [facility]
[2024-02-17] MEDS: Ondansetron 4 MG/2 ML Vial IV ×3 (17:34→23:16)
[2024-02-17] MEDS: 0.9% Normal Saline (1000mL) 1,000 ML 999 ML IV (17:35)
[2024-02-17 17:48] LABS: Absolute Lymphocyte Count 1.52 X10^3/uL (0.83-4.51); Absolute Neutrophil Count 9.4 X10^3/uL (2.0-7.7); Basophil# 0.07 X10^3/uL; Basophil% 0.6 % (0-1); Eosinophil# 0.05 X10^3/uL; Eosinophils% 0.4 % (0-5); Hemoglobin 15.3 g/dL (12.0-15.0); Lymphocyte # 1.52 X10^3/ul (0.83-4.51); Lymphocyte % 13.3 % (19-41); Mean Corp Hgb Conc 31.9 g/dL (32-36); Mean Corpuscular Hgb 27.5 pg (27.0-32.0); Mean Corpuscular Volume 86.3 fL (81-99); Mean Platelet Vol. 9.8 fl (6.2-12.0); Monocyte# 0.39 X10^3/uL; Monocyte% 3.4 % (0-10); NRBC Flagged by Analyzer 0 % (0-5); Neutrophil # 9.35 X10^3/uL (2.7-7.7); Platelet Count 288 K/mm3 (150-450); RBC Distribution Width CV 12.8 % (11.6-14.6); RBC Distribution Width SD 40.3 fl (35.1-43.9); Red Blood Count 5.56 M/mm3 (4.2-5.4); White Blood Count 11.4 K/mm3 (4.4-11.0)
[2024-02-17 18:05] LABS: AST(SGOT) 13 U/L (15-37); Alanine Aminotransfer ALT/SGPT 20 U/L (13-56); Albumin, Serum 3.6 g/dL (3.2-5.0); Alkaline Phosphatase 106 U/L (45-117); Anion Gap 9 (5-15); BUN 17 mg/dL (7-18); BUN/Creat Ratio 17.5 RATIO (10-20); Calcium,Total 9.5 mg/dL (8.5-10.1); Chloride 102 mmol/L (98-107); Creatinine, Serum 0.97 mg/dL (0.55-1.02); EST Glomerular Filtration Rate 60 mL/min (>60); Est Glom Filt Rate - Afr Amer 73 mL/min (>60); Globulin 3.6 g/dL (2.2-4.2); Glucose 194 mg/dL (74-106); Lipase 44 U/L (13-75); Potassium 3.4 mmol/L (3.5-5.1); Protein, Total 7.2 g/dL (6.4-8.2); Sodium Level 138 mmol/L (136-145)
[2024-02-17] MEDS: Morphine 4 MG/ML Syringe IV ×2 (18:27→18:49)
[2024-02-17] MEDS: Metoclopramide 10 MG/2 ML Vial IV (18:48)
--- NOTE | 2024-02-17 19:02 | EKG12_ITS ---
Test Reason : DYSRHYTHMIA Blood Pressure : / mmHG Vent. Rate : 072 BPM Atrial Rate : 072 BPM P-R Int : 118 ms QRS Dur : 154 ms QT Int : 470 ms P-R-T Axes : 047 -43 101 degrees QTc Int : 514 ms Atrial-sensed ventricular-paced rhythm Biventricular pacemaker detected Abnormal ECG Confirmed by BRYCE HASSAN, MARCELINA ([id number]), makeup editor ERASMO CRUZ ([id number]) on 02/18/2024 2:49:38 PM Referred By: Confirmed By:MARCELINA WU MD
--- NOTE | 2024-02-17 19:19 | CT_ITS ---
We are attempting to reach an attending provider to discuss findings. An addendum with communication details will be sent when the communication is complete. STUDY: CTA HEAD AND NECK WITH CONTRAST REASON FOR EXAM: Female, 68 years old. dysarthria RADIATION DOSAGE (If Supplied By Facility): CTDIvol = ( 22.2 ) mGy, DLP = ( 676.68 ) mGycm TECHNIQUE: CT angiography was performed with a multi-detector CT scanner. Data acquisition was obtained from the skull base through the vertex following intravenous administration of IV 100mL Isovue-370. MIP images were reconstructed from the axial data set. Post-processing of the angiographic images was performed, with multiplanar reformation and 3D reconstruction. Individualized dose optimization techniques were used for this CT. COMPARISON: No relevant priors. FINDINGS: Normal bilateral petrous carotid arteries. Normal right cavernous carotid artery with a normal supraclinoid bifurcation. Normal left cavernous carotid artery with a normal supraclinoid bifurcation. Normal right A1 segments of the anterior cerebral artery. Normal left A1 segments of the anterior cerebral artery. Anterior communicating artery not visualized consistent with normal variant). Normal bilateral A2 segments of the anterior cerebral arteries. Normal right M1 and M2 segments of the middle cerebral arteries, with a normal M1 bifurcation. Normal left M1 and M2 segments of the middle cerebral arteries, with a normal M1 bifurcation. Posterior communicating arteries aren''t visualized consistent with normal variant). Normal bilateral vertebral arteries. Normal basilar artery with a normal basilar bifurcation. The visualized bilateral superior cerebellar (SCA) arteries are normal. Normal right posterior cerebral artery. Severely stenosed P2 segment of left posterior cerebral. There is no demonstrated aneurysm of the [place] of [place]. There is no demonstrated abnormality of the visualized brain. AORTIC ARCH: Normal visualized aortic arch. Normal origins of the brachiocephalic, left common carotid, and left subclavian arteries. RIGHT CAROTID ARTERIES: Normal right common carotid artery (CCA). Mild calcific plaquing of the right common carotid bulb. Mild calcific plaquing of the origin of the right internal carotid (ICA) artery without a hemodynamically significant stenosis. Normal visualized cervical portion of the right internal carotid artery. Normal origin of the right external carotid artery (ECA). LEFT CAROTID ARTERIES: Minor calcific plaquing of the left common carotid artery (CCA). Normal left common carotid bulb. Normal origin of the left internal carotid (ICA) artery without a hemodynamically significant stenosis. Normal visualized cervical portion of the left internal carotid artery. Normal origin of the left external carotid artery (ECA). VERTEBRAL ARTERIES: Normal bilateral vertebral arteries. CT/STROKE CTA Head AND Neck W/Con IMPRESSION: Mild atherosclerotic changes of the head and neck with most severe stenosis of the P2 segment of the left posterior cerebral Electronically Signed: Kiran Bolton MD at 19:57 EDT ,
--- NOTE | 2024-02-17 19:26 | CT_ITS ---
We are attempting to reach an attending provider to discuss findings. An addendum with communication details will be sent when the communication is complete. INDICATION: WEAKNESS EXAMINATION: CT BRAIN - CT Head Stroke Protocol W/O Contrast Injection TECHNIQUE: Multiple axial images were obtained of the head without intravenous contrast. The protocol utilizes one or more of the following dose reduction techniques: automated exposure control, adjustment of mA and/or kV according to patient size,and/or use of iterative reconstruction technique. IV Contrast dosage and agent: None. RADIATION DOSAGE (If Supplied By Facility): CTDIvol = ( 44.99 ) mGy, DLP = ( 796.11 ) mGycm COMPARISON: August 17, 2020 FINDINGS: BRAIN PARENCHYMA: No intra- or extra-axial hemorrhage. Moderate periventricular white matter ischemic changes. No evidence of acute infarct. No intracranial mass or mass effect. There is preservation of the trejo/white matter interface. Posterior fossa structures are unremarkable. Possible tiny old lacunar infarct of the right basal ganglia versus prominent perivascular space CSF SPACES: Appropriate for age. No hydrocephalus. Basal cisterns are patent. CALVARIUM, SKULL BASE, PARANASAL SINUSES AND MASTOID AIR CELLS: Clear. No discrete lytic or blastic abnormalities. Calcific plaquing of the cavernous carotids ORBITS: Both globes, extraocular muscles, optic nerves and retrobulbar fat appear unremarkable. No significant change since prior study CT/STROKE Brain/Head without Cont IMPRESSION: Moderate periventricular white matter ischemic changes and possible tiny old right lacunar infarct. No mass or acute bleed. If concern for acute infarct MRI recommended Electronically Signed: Kiran Bolton MD at 19:42 EDT ,
--- NOTE | 2024-02-17 19:40 | RAD_ITS ---
STUDY: X-RAY CHEST REASON FOR EXAM: Female, 68 years old. stroke TECHNIQUE: AP portable COMPARISON: None. FINDINGS: Elevated right hemidiaphragm and mild basilar atelectasis. There is no demonstrated pleural abnormality. Normal size heart. Normal mediastinum and margaret. Normal visualized pulmonary arteries. Tortuous mildly calcified aortic arch and descending thoracic aorta. Biventricular pacer noted on the left with electrodes in satisfactory position Dorsal spine and shoulders demonstrate degenerative change. Normal visualized ribs, and clavicles.. There is no demonstrated abnormality of the visualized soft tissue structures of the upper abdomen. RAD/Chest 1 View (Portable) IMPRESSION: Elevated right hemidiaphragm and mild basilar atelectasis Electronically Signed: Kiran Bolton MD at 20:20 EDT ,
[2024-02-17 20:00] LABS: Troponin-I HS 201 pg/mL (3.0-54.0)
--- NOTE | 2024-02-17 20:22 | PCM.HP.STD ---
HPI - General General Date of Admission: 02/17/24 Date of Service: 02/17/24 Chief Complaint: N/V after medication, onset dysarthria in the ED. HPI Narrative The patient is a 68 y/o F w/ PMHx: GERD, CKD stage III unclear subtype, HTN, HLD, HFrEF/Dilated cardiomyopathy s/p AICD, Carotid disease, NICOLLE, Diabetes mellitus type II, Valvular Heart Disease, Former tobacco use, Anxiety and Depression who presents to the [facility] ED on 02/17/24 with history of nausea and emesis after taking Ozempic with onset of cramping diffuse abdominal discomfort on day of presentation noting she had taken it previously and never had issues like this with no fevers or chills felt secondary to likely the medications however at 7:15 PM upon repeat evaluation in the ED patient was having difficulty with her speech which was not her baseline when she presented to the ED although she did have several doses of morphine and nausea prompting stroke alert with improvement on repeat evaluation 8 PM with stroke neurology evaluation felt not TNK candidate. In the ED upon evaluation patient with ongoing persistent nausea and dry heaving with still evidence dysarthria but difficult assessment given severity of ongoing GI issues. Workup in the ED included T97.8, heart rate 66, BP 168/109, respiratory rate 20, 95% on room air with most recent repeat vitals heart rate 83, BP 218/107, respiratory rate 19, 94% on room air, CBC with WBC 11.4, hemoglobin 15.3, MCV 86.3, platelet 288 with left shift, CMP with potassium 3.4, glucose 194, T. bili 1.10, AST/LT 13/20, alk phos 106, lipase 44, troponin initial 201, CT of the brain with moderate periventricular white matter ischemic changes and possible tiny old right lacunar infarct with no acute intracranial findings otherwise, CTA head and neck with mild atherosclerotic changes of the head and neck with most severe stenosis of the P2 segment of the left posterior cerebral, chest x-ray with no acute evidence of ischemia, EKG with paced rhythm with no acute evidence of ischemia, in the ED patient ministered Zofran 4 mg IV x 2, Reglan 10 mg IV x 1, morphine 4 mg IV x 2 as well as 1 L normal saline. [facility] Medical History Vertigo Carotid artery disease Pure hypercholesterolemia Essential hypertension Atherosclerotic heart disease of [place] coronary artery without angina pectoris Nonrheumatic mitral (valve) insufficiency Dilated cardiomyopathy Chronic systolic (congestive) heart failure BALWINDER (acute kidney injury) Abnormal electrocardiogram Systolic CHF, acute Hypertension Obesity (BMI 30-39.9) Hyperlipidemia Diabetes mellitus, type II NICOLLE (obstructive sleep apnea) Home Medications ?Medication ?Instructions ?Recorded ?Last Taken ?Type gabapentin 300 mg capsule 600 mg PO QHS NERVE PAIN 01/12/16 10/25/19 20:00 History aspirin 81 mg tablet,delayed 81 mg PO DAILY@0800 HEALTH 01/26/17 10/25/19 20:00 History release MAINTENANCE cholecalciferol (vitamin D3) 50 2,000 unit PO PAYNE SUPPLEMENT 01/26/17 10/19/19 History mcg (2,000 unit) capsule fluoxetine 40 mg capsule (Prozac) 40 mg PO DAILY depression 11/01/18 10/25/19 08:00 History cetirizine 10 mg tablet (Zyrtec) 10 mg PO DAILY PRN Allergies 07/23/20 Unknown History magnesium chloride 71.5 mg 71.5 mg PO DAILY 07/23/20 Unknown History (magnesium chloride) tablet,delayed release (Slow-Mag) meclizine 25 mg tablet 25 mg PO TID PRN dizziness 07/23/20 Unknown History Handicap Parking Placard #1 ea 05/09/22 Unknown Rx ondansetron 4 mg disintegrating 4 mg PO Q6H PRN nausea and 06/01/22 Unknown Rx tablet vomiting #7 tabs ezetimibe 10 mg tablet (Zetia) 10 mg PO DAILY cholesterol #90 tabs 02/01/23 Unknown Rx omeprazole 20 mg tablet,delayed 40 mg PO DAILY GERD 07/02/23 Unknown History release glipizide 5 mg tablet 5 mg PO DAILY DM 07/04/23 Unknown History sacubitril 97 mg-valsartan 103 mg 1 tab PO BID HF #180 tabs 09/12/23 Unknown Rx tablet (Entresto) cyclobenzaprine 10 mg tablet 5 mg (1/2 x 10 mg) PO TID PRN 09/13/23 Unknown Rx Muscle Spasm #20 TABLETS hydrocodone-acetaminophen 5-325mg 1 tab PO Q6H PRN PRN Pain 3 days 09/13/23 Unknown Rx 5mg-325mg #10 TABLETS Novolog FlexPen U-100 Insulin 100 12 unit (0.12 mL) subcut TID #30 mL 10/04/23 Unknown Rx unit/mL (3 mL) subcutaneous (insulin aspart U-100) carvedilol 25 mg tablet 25 mg PO BID #180 tabs 12/31/23 Unknown Rx furosemide 20 mg tablet 20 mg PO QDAY water pill #30 tabs 12/31/23 Unknown Rx insulin aspart U-100 100 unit/mL 12 unit subcut .COMPLEX Diabetes 12/31/23 Unknown History (3 mL) subcutaneous pen insulin degludec 100 unit/mL (3 14 unit subcut DAILY 12/31/23 Unknown History mL) subcutaneous pen (Tresiba FlexTouch U-100 insulin) amlodipine 5 mg tablet 5 mg PO DAILY blood pressure 02/17/24 Unknown History dapagliflozin propanediol 10 mg 10 mg PO DAILY HF 02/17/24 Unknown History tablet (Farxiga) Allergy/AdvReac Type Severity Reaction Status Date / Time red dye Allergy Hives Verified 02/17/24 17:04 Jsxvxol-CXJ-BaG Reductase AdvReac Severe Myalgias Verified 02/17/24 17:04 Inhibitor (Fglansc-Fvg-Hwh Reductase Inhibitor) Family History Father , Lung cancer Lung cancer Mother , Breast cancer Breast cancer Brother Cancer lymphoma Surgical History History of eye surgery History of left heart catheterization (LHC) (~05/26/15) Status post foot surgery Status post breast reduction S/P hysterectomy History of bilateral breast reduction surgery History of bilateral foot surgery History of hysterectomy Cardiac defibrillator in situ Social History household members: spouse Smoking Status: Former smoker quit date: 06/11/06 alcohol intake: never substance use type: does not use caffeine: No what type of physical activity do you participate in: none seatbelt use: always do you feel safe at home: Yes ROS ROS Narrative Admission Review of Systems: CONSTITUTIONAL: No weight loss, fever, chills, + weakness or fatigue. HEENT: Eyes: No visual loss, blurred vision, double vision or yellow sclerae. Ears, Nose, Throat: No hearing loss, sneezing, congestion, runny nose or sore throat. SKIN: No rash or itching, lesions, wounds. CARDIOVASCULAR: No chest pain, chest pressure or chest discomfort, palpitations, edema, orthopnea, syncopal events. RESPIRATORY: No shortness of breath, cough or sputum, wheezing, hemoptysis. GASTROINTESTINAL: + anorexia, nausea, vomiting, abdominal cramping/discomfort. No diarrhea, melena, BRBPR. GENITOURINARY: No dysuria, frequency, urgency or retention. NEUROLOGICAL: + Intermittent dysarthria. No headache, dizziness, syncope, paralysis, ataxia, numbness or tingling in the extremities, focal weakness, change in bowel or bladder control, seizure. MUSCULOSKELETAL: + muscle, back pain, joint pain or stiffness. HEMATOLOGIC: No anemia, bleeding or bruising. LYMPHATICS: No enlarged nodes. No history of splenectomy. PSYCHIATRIC: + History of anxiety and depression. ENDOCRINOLOGIC: + reports of sweating, cold or heat intolerance. No polyuria or polydipsia. ALLERGIES: + History of hives. Vital Signs Vital Signs Vital Signs: 02/17/24 17:00 02/17/24 18:59 02/17/24 19:37 Temperature 97.8 F Temperature Source Temporal Pulse Rate 66 81 124 H Respiratory Rate 20 H 28 H 22 H Blood Pressure 168/109 H 219/101 H 169/87 H Blood Pressure Mean 128 140 114 Pulse Ox 95 95 Oxygen Delivery Method Room Air Room Air 02/17/24 19:52 02/17/24 20:00 02/17/24 20:03 Temperature Temperature Source Pulse Rate 118 H 74 83 Respiratory Rate 22 H 19 H Blood Pressure 191/101 H 218/107 H Blood Pressure Mean 131 144 Pulse Ox 91 95 94 Oxygen Delivery Method Room Air Room Air Room Air Physical Exam Narrative Physical Examination: General: Awake, alert, oriented x 3 and cooperative, seated upright in the ED bed, uncomfortable and ill-appearing, frequent dry heaving intermittently, reports nausea, still some mild dysarthria evident on evaluation Skin: Normal color, normal turgor, no icterus, no cyanosis. HEENT: AT/NC, EOMI, PERRLA, dry MM, no carotid bruits or JVD noted; however very thickened neck makes evaluation difficult. Lungs: Diminished, greater bases, difficult assessment given difficulty with effort with ongoing nausea/emesis bouts, no rales, ronchi or wheezing. Heart: Currently regular rate and rhythm; no gallop, rub audible. Abdomen: Soft, morbidly obese, no specific difficult comfort with palpation of the abdomen and no rebound or guarding, does not appear distended but difficult to assess as well as difficulty assessing HSM given habitus, hyperactive BS. As noted Extremities: No cyanosis, clubbing, or edema. Neurological: Patient awake, alert, oriented x 3, cognitive function intact; pupils equally reactive to light and accommodation, cranial nerves gross normal, moving all 4 extremities, no focal deficits, strength severely globally decreased, difficult to assess finger-nose and [id number] given severity of ongoing bouts of emesis/nausea, sensation intact, equivocal Babinski, still ongoing mild dysarthria evident but difficult again given severity of GI ongoing issues currently. Psychiatric: Affect appears ill-appearing, fatigued, no acute evidence of depressive or anxiety feelings. Results Lab / Micro Data 02/17/24 17:35 02/17/24 17:35 Labs: Laboratory Results - last 24 hr 02/17/24 17:35: WBC 11.4 H, RBC 5.56 H, Hgb 15.3 H, Hct 48.0 H, MCV 86.3, MCH 27.5, MCHC 31.9 L, RDW Std Deviation 40.3, RDW Coeff of Ivet 12.8, Plt Count 288, MPV 9.8, Immature Gran % (Auto) 0.300, Neut % (Auto) 82.0 H, Lymph % (Auto) 13.3 L, Aiken % (Auto) 3.4, Eos % (Auto) 0.4, Baso % (Auto) 0.6, Absolute Neuts (auto) 9.4 H, Absolute Lymphs (auto) 1.52, Nucleated RBC % 0, Sodium 138, Potassium 3.4 L, Chloride 102, Carbon Dioxide 27.0, Anion Gap 9, BUN 17, Creatinine 0.97, Est GFR (MDRD) Af Amer 73, Est GFR (MDRD) Non-Af 60, BUN/Creatinine Ratio 17.5, Glucose 194 H, Calcium 9.5, Total Bilirubin 1.10 H, AST 13 L, ALT 20, Alkaline Phosphatase 106, Troponin I High Sens 201 H*, Total Protein 7.2, Albumin 3.6, Globulin 3.6, Albumin/Globulin Ratio 1.0, Lipase 44 Imaging Radiology Impression Head/Neck CTA 02/17/24 19:19 IMPRESSION: Mild atherosclerotic changes of the head and neck with most severe stenosis of the P2 segment of the left posterior cerebral Electronically Signed: Kiran Bolton MD at 19:57 EDT , ADDENDUM: 02/17/242009 IMPRESSION: Mild atherosclerotic changes of the head and neck with most severe stenosis of the P2 segment of the left posterior cerebral N.B. : The above Results were Read Back by Kiran Bolton MD to Antonio Herr MD, and understanding confirmed on 02/17/2024 20:03:41 (ET). Electronically Signed: Kiran Bolton MD at 19:57 EDT , Brain CT 02/17/24 19:26 IMPRESSION: Moderate periventricular white matter ischemic changes and possible tiny old right lacunar infarct. No mass or acute bleed. If concern for acute infarct MRI recommended Electronically Signed: Kiran Bolton MD at 19:42 EDT , ADDENDUM: 02/17/241949 IMPRESSION: Moderate periventricular white matter ischemic changes and possible tiny old right lacunar infarct. No mass or acute bleed. If concern for acute infarct MRI recommended N.B. : The above Results were Read Back by Kiran Bolton MD to Antonio Herr MD, and understanding confirmed on 02/17/2024 19:44:03 (ET). Electronically Signed: Kiran Bolton MD at 19:42 EDT , Chest X-Ray 02/17/24 19:40 IMPRESSION: Elevated right hemidiaphragm and mild basilar atelectasis Electronically Signed: Kiran Bolton MD at 20:20 EDT , Assessment & Plan Assessment/Plan (1) Intractable nausea and vomiting: (2) Elevated troponin: (3) Dysarthria: PLAN: Plan The patient is a 68 y/o F w/ PMHx: GERD, CKD stage III unclear subtype, HTN, HLD, HFrEF/Dilated cardiomyopathy s/p AICD, Carotid disease, NICOLLE, Diabetes mellitus type II, Valvular Heart Disease, Former tobacco use, Anxiety and Depression who presents to the [facility] ED on 02/17/24 with history of nausea and emesis after taking Ozempic with onset of cramping diffuse abdominal discomfort on day of presentation noting she had taken it previously and never had issues like this with no fevers or chills felt secondary to likely the medications however at 7:15 PM upon repeat evaluation in the ED patient was having difficulty with her speech which was not her baseline when she presented to the ED although she did have several doses of morphine and nausea prompting stroke alert with improvement on repeat evaluation 8 PM with stroke neurology evaluation felt not TNK candidate. #1. Dysarthria concerning for CVA: Will admit to PCU, will obtain MRI Brain if pacemaker compatible with ability otherwise will need to repeat CT head in approximately 24 hours which is being clarified, will obtain ECHO, PT/OT/Speech/Nutrition evaluation per protocol. Will allow permissive HTN, maintain on asa, noted statin intolerance with plan for AM FLP, fall precautions. Mag, TSH, FLP, HgbA1c requested. Maintain on fall and aspiration precautions. Continue neurology consultation. #2. Nausea, emesis following Ozempic medication, potential medication reaction: Will hold Ozempic, initiate Bentyl, continue very judicious hydration given history and permissive hypertension with need to hold regimen as noted, will have as needed antiemetic regimen, defer narcotics if able especially given need to rule out stroke as noted above, IV PPI until improving, clears until improving. #3. Elevated troponin, possibly NSTEMI, unclear type: EKG in ED w/ paced rhythm without acute evidence of ischemia, CXR w/ no acute cardiopulmonary finding. Trop elevated, 201. Will maintain on a monitored bed, continue serial cardiac enzymes and EKGs. Obtain magnesium level upon admission. Start Heparin drip until further review trending. Continue medical management w/ asa, noted statin intolerance, AM FLP. As noted holding medications for permissive hypertension temporarily. ECHO requested. Pending enzyme trending may consider Cardiology involvement requested. #4. Hypokalemia: Admission K+ 3.4, magnesium level requested, supplementation given, repeat level in AM. #5. 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 Judiciously hydrate only if necessary. #6. Hypertension: Will maintain permissive hypertension given presentation with as needed agents per stroke protocol. #7. Hyperlipidemia: Noted statin intolerance, continue ezetimibe, FLP in AM. #8. Diabetes mellitus type II with chronic neuropathy: Hold oral home regimen, continue home insulin regimen, hemoglobin A1c requested as well as nutrition consultation per stroke protocol, clears until improving then transition to ADA diet, accu checks w/ ISS, continue home gabapentin regimen. #9. Chronic Kidney Disease Stage III, unclear subtype per GFR trending: Admission BUN/Cr 17/0.97, GFR 60 with previous primarily in the 50 range, baseline renal function primarily 0.9-1.1, repeat BMP in AM. #10. Anxiety and depression: We will continue patient home fluoxetine regimen. #11. BPPV: Uses meclizine as needed outpatient for vertiginous symptoms. #12. Former tobacco use: Encourage continued tobacco cessation. #13. GERD: We will continue patient on PPI. #14. NICOLLE: Normally on BIPAP, hold given N/V. #15. DVT prophylaxis: Heparin drip until ascertain enzyme trending. #16. CODE status: Full Code status. Charges/Coding Visit Charges Inpatient E&M: 02799 Init Hosp L3
--- NOTE | 2024-02-17 21:06 | ECHOCS_ITS ---
Reason For Study: ELEVATED TROP Procedure This was a 2D Doppler, Color Flow transthoracic echocardiogram. The study was technically difficult. Contrast injection was performed. Exam performed portable in ICU/CCU. Left Ventricle Normal LV size. Moderate concentric left ventricular hypertrophy. The left ventricular ejection fraction is 50 %. Stage 1 diastolic dysfunction. Radnor : Severely Hypokinetic. The rest of the wall segments are normal. Right Ventricle Normal RV size. ICD or pacer leads identified within the right ventricle. Normal systolic function. Atria Normal left atrium. Normal right atrium. Mitral Valve Normal mitral valve. Tricuspid Valve Normal tricuspid valve. Pulmonic Valve The pulmonic valve is not well visualized. Great Vessels Normal aortic root. The pulmonary artery is normal size. Inferior vena cava collapse with respiration. Pericardium/Pleural No pericardial effusion. Medication Diluted definity 2ml given slow IV push to enhance endocardial definition. Performed a rapid injection of agitated mix of 9 cc saline and 1cc air to assess for atrial septal defect. MMode/2D Measurements & Calculations LVIDd: 5.0 cm IVSd: 1.6 cm LVOT diam: 2.0 cm LVIDs: 4.7 cm LVPWd: 1.7 cm LVOT area: 3.2 cm2 FS: 6.4 % Ao root diam: 3.6 cm LAV(MOD-bp): 54.3 ml LVAd ap4: 38.3 cm2 LAV(MOD-bp) Indexed: 25.7 ml/m2 LVLd ap4: 8.7 cm LAV(MOD-sp2): 46.1 ml EDV(MOD-sp4): 139.4 ml LAV(MOD-sp4): 56.6 ml EDV(sp4-el): 142.7 ml LVAs ap4: 29.8 cm2 LVLs ap4: 8.2 cm ESV(MOD-sp4): 90.0 ml ESV(sp4-el): 91.5 ml EF(MOD-sp4): 35.4 % EF(sp4-el): 35.9 % SV(MOD-sp4): 49.4 ml SV(sp4-el): 51.2 ml LA A4 area: 20.3 cm2 LA dimension(2D): 3.8 cm RA A4 area: 16.1 cm2 Time Measurements MV dec time: 0.07 sec Doppler Measurements & Calculations MV E max omega: 46.3 cm/sec Lat Peak E' Omega: 4.9 cm/sec Med Peak E' Omega: 5.5 cm/sec MV A max omega: 105.8 cm/sec E/E' lat: 9.5 E/E' med: 8.4 MV E/A: 0.44 MV V2 max: 119.1 cm/sec Ao V2 max: 145.3 cm/sec MV max P.7 mmHg MV dec slope: 653.9 cm/sec2 Ao max P.5 mmHg MV V2 mean: 70.0 cm/sec Ao V2 mean: 97.9 cm/sec MV mean P.3 mmHg Ao mean P.5 mmHg MV V2 VTI: 24.2 cm Ao V2 VTI: 23.5 cm AV (velocity ratio): 0.92 MVA(VTI): 2.9 cm2 DEBRA(I,D): 2.9 cm2 DEBRA(V,D): 2.5 cm2 LV V1 max: 114.2 cm/sec SV(LVOT): 69.1 ml PA V2 max: 93.2 cm/sec LV V1 max P.2 mmHg PA V2 mean: 66.1 cm/sec LV V1 mean P.7 mmHg LV V1 mean: 76.1 cm/sec LV V1 VTI: 21.6 cm ECHO/Echo Complete W/ Contrast Interpretation Summary Normal LV size. The left ventricular ejection fraction is 50 %. Moderate concentric left ventricular hypertrophy. Radnor : Severely Hypokinetic. Stage 1 diastolic dysfunction. Contrast injection was performed. Ordering Physician: Taty Velasquez Referring Physician: FELIBERTO VALENCIA Performed By: Tanesha Santos RCS
[2024-02-17 21:19] LABS: Magnesium 1.7 mg/dL (1.6-2.6)
[2024-02-17] MEDS: 0.9% Normal Saline (1000mL) 1,000 ML 100 ML IV (21:29)
[2024-02-17] MEDS: Pantoprazole Sodium 40 MG in 0.9% Normal Saline (100mL MB+) 100 ML 330 MG IV (21:37)
[2024-02-17 21:51] LABS: International Normalized Ratio 1.1; Prothrombin Time (Protime)PT. 14.5 SECONDS (11.7-14.9)
[2024-02-17 21:52] LABS: Partial Thromboplast Time 24.6 Seconds (24.1-36.2)
[2024-02-17] MEDS: Heparin Injection (Vial) 5,000 UNIT/ML VIAL 4000 UNIT IV (22:00)
[2024-02-17] MEDS: HEPARIN/D5w 25,000 UNITS 25,000 UNITS/250 ML IV.SOLN. 10 UNITS CONT INF (22:01)
[2024-02-17 22:08] LABS: Troponin-I HS 344 pg/mL (3.0-54.0)
[2024-02-17] MEDS: proCHLORPERazine 10 MG/2 ML Vial 5 MG IV (22:15)
[2024-02-17] MEDS: Insulin Lispro 100 UNIT/ML INSULN.PEN SC (23:43)
[2024-02-17] MEDS: Haloperidol Lactate 5 MG/ML Vial IV (23:47)
[2024-02-18] VITALS (22 sets, daily range): BP systolic 110–227; BP diastolic 45–120; PULSE 65–100; RESP 14–18; TEMP 36–36.6; O2SAT 90–98; BMI 41.1
[2024-02-18 00:08] LABS: Bedside Glucose 301 mg/dL (74-106)
[2024-02-18 00:18] LABS: Troponin-I HS 523 pg/mL (3.0-54.0)
[2024-02-18] MEDS: hydrALAZINE 20 MG/ML Vial 5 MG IV (00:21)
[2024-02-18 04:00] LABS: Absolute Lymphocyte Count 0.77 X10^3/uL (0.83-4.51); Absolute Neutrophil Count 11.7 X10^3/uL (2.0-7.7); Basophil# 0.03 X10^3/uL; Basophil% 0.2 % (0-1); Eosinophil# 0.01 X10^3/uL; Eosinophils% 0.1 % (0-5); Hemoglobin 15.8 g/dL (12.0-15.0); Lymphocyte # 0.77 X10^3/ul (0.83-4.51); Mean Corp Hgb Conc 32.2 g/dL (32-36); Mean Corpuscular Hgb 27.8 pg (27.0-32.0); Mean Corpuscular Volume 86.3 fL (81-99); Mean Platelet Vol. 9.5 fl (6.2-12.0); Monocyte# 0.32 X10^3/uL; Monocyte% 2.5 % (0-10); NRBC Flagged by Analyzer 0 % (0-5); Neutrophil # 11.72 X10^3/uL (2.7-7.7); Platelet Count 308 K/mm3 (150-450); RBC Distribution Width CV 12.9 % (11.6-14.6); RBC Distribution Width SD 40.1 fl (35.1-43.9); Red Blood Count 5.68 M/mm3 (4.2-5.4); White Blood Count 12.9 K/mm3 (4.4-11.0)
[2024-02-18 04:30] LABS: Partial Thromboplast Time 47.9 Seconds (24.1-36.2)
[2024-02-18 05:16] LABS: Troponin-I HS 877 pg/mL (3.0-54.0)
[2024-02-18 05:39] LABS: ALB/GLOB Ratio 0.9 RATIO (0.9-2.4); AST(SGOT) 12 U/L (15-37); Alanine Aminotransfer ALT/SGPT 16 U/L (13-56); Albumin, Serum 3.5 g/dL (3.2-5.0); Alkaline Phosphatase 102 U/L (45-117); Anion Gap 14 (5-15); BUN 14 mg/dL (7-18); BUN/Creat Ratio 15.5 RATIO (10-20); Calcium,Total 8.7 mg/dL (8.5-10.1); Chloride 99 mmol/L (98-107); Cholesterol 265 mg/dL (200); EST Glomerular Filtration Rate 65 mL/min (>60); Est Glom Filt Rate - Afr Amer 79 mL/min (>60); Estimated Creatinine Clearance 69.77 ml/min; Globulin 3.7 g/dL (2.2-4.2); Glucose 306 mg/dL (74-106); High Density Lipoprotein 77 mg/dL; Potassium 3.7 mmol/L (3.5-5.1); Protein, Total 7.2 g/dL (6.4-8.2); Sodium Level 135 mmol/L (136-145); Triglycerides 106 mg/dL; Very Low Density Lipoprotein 21 mg/dL (5-40)
[2024-02-18] MEDS: Dicyclomine 10 MG Capsule 20 MG PO ×3 (06:08→17:00)
[2024-02-18] MEDS: Insulin Lispro 100 UNIT/ML INSULN.PEN SC ×3 (06:16→17:00)
[2024-02-18 07:11] LABS: Bedside Glucose 317 mg/dL (74-106)
--- NOTE | 2024-02-18 08:10 | PCM.CONS.C ---
Assessment & Plan Assessment/Plan (1) Elevated troponin: PLAN: She does present with elevated troponin and significant hypertension. I am not sure how the hypertension is related to the Ozempic but it certainly could cause the demand ischemia. May be helpful to define the coronary anatomy to exclude obstructive disease and depending on the findings further recommendations will be made. Depending on the results of the cardiac catheterization further recommendations will be made. Addendum: Cardiac catheterization today demonstrated mild disease in the left main coronary artery, mild disease in the left anterior descending artery. Ramus intermedius with no significant disease. Left circumflex artery with no significant disease. Dominant right coronary artery with mild disease. Preserved ejection fraction with apical hypokinesis present. The above is suggestive of a Takotsubo pattern. Will pursue aggressive medical therapy. (2) Hx of cardiomyopathy: PLAN: She does have a history of cardiomyopathy. This will be reevaluated with the echocardiogram. She appears to be on guideline directed medical therapy with beta-rosa, Arni, and other medications. (3) Essential hypertension: PLAN: Her blood pressure was noted to be elevated but it is better controlled this morning. Will try and optimize her medical therapy. (4) Cardiac defibrillator in situ: PLAN: She does have a implantable biventricular defibrillator. This has been interrogated recently and was noted to have adequate and appropriate function. No changes will be advocated at this time. HPI Consult Data Date of Consult: 02/18/24 HPI Narrative HPI Narrative: THIAGO PIERRE, is a 68 F who presents to the emergency room with severe nausea and vomiting which started approximately an hour after she took her Ozempic dose. She says that this the first time this has happened. She was seen in the emergency room and was noted to be ventricular paced and cardiac enzymes were noted to be abnormal. 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 BiV ICD CONTRACT COORDINATOR placement at [facility] in 2016, hyperlipidemia, hypertension, NICOLLE with BiPap therapy, and diabetes. She does have a history of a cardiomyopathy with an estimated ejection fraction which is still suboptimal. She is on guideline directed medical therapy. She recently had her defibrillator interrogated. It appears that her most recent echocardiogram demonstrated an ejection fraction of approximately 50%. She denies any chest pain or paroxysmal nocturnal dyspnea pedal edema no neck arm or jaw discomfort suggest angina she has been compliant with her medications. The other issue of note is that her blood pressure was noted to be markedly elevated when she presented to the emergency room. [facility] Medical History Vertigo Carotid artery disease Pure hypercholesterolemia Essential hypertension Atherosclerotic heart disease of [place] coronary artery without angina pectoris Nonrheumatic mitral (valve) insufficiency Dilated cardiomyopathy Chronic systolic (congestive) heart failure BALWINDER (acute kidney injury) Abnormal electrocardiogram Systolic CHF, acute Hypertension Obesity (BMI 30-39.9) Hyperlipidemia Diabetes mellitus, type II NICOLLE (obstructive sleep apnea) Home Medications ?Medication ?Instructions ?Recorded ?Last Taken ?Type gabapentin 300 mg capsule 600 mg PO QHS NERVE PAIN 01/12/16 10/25/19 20:00 History aspirin 81 mg tablet,delayed 81 mg PO DAILY@0800 HEALTH 01/26/17 10/25/19 20:00 History release MAINTENANCE cholecalciferol (vitamin D3) 50 2,000 unit PO PAYNE SUPPLEMENT 01/26/17 10/19/19 History mcg (2,000 unit) capsule fluoxetine 40 mg capsule (Prozac) 40 mg PO DAILY depression 11/01/18 10/25/19 08:00 History cetirizine 10 mg tablet (Zyrtec) 10 mg PO DAILY PRN Allergies 07/23/20 Unknown History magnesium chloride 71.5 mg 71.5 mg PO DAILY 07/23/20 Unknown History (magnesium chloride) tablet,delayed release (Slow-Mag) meclizine 25 mg tablet 25 mg PO TID PRN dizziness 07/23/20 Unknown History Handicap Parking Placard #1 ea 05/09/22 Unknown Rx ondansetron 4 mg disintegrating 4 mg PO Q6H PRN nausea and 06/01/22 Unknown Rx tablet vomiting #7 tabs ezetimibe 10 mg tablet (Zetia) 10 mg PO DAILY cholesterol #90 tabs 02/01/23 Unknown Rx omeprazole 20 mg tablet,delayed 40 mg PO DAILY GERD 07/02/23 Unknown History release glipizide 5 mg tablet 5 mg PO DAILY DM 07/04/23 Unknown History sacubitril 97 mg-valsartan 103 mg 1 tab PO BID HF #180 tabs 09/12/23 Unknown Rx tablet (Entresto) cyclobenzaprine 10 mg tablet 5 mg (1/2 x 10 mg) PO TID PRN 09/13/23 Unknown Rx Muscle Spasm #20 TABLETS hydrocodone-acetaminophen 5-325mg 1 tab PO Q6H PRN PRN Pain 3 days 09/13/23 Unknown Rx 5mg-325mg #10 TABLETS Novolog FlexPen U-100 Insulin 100 12 unit (0.12 mL) subcut TID #30 mL 10/04/23 Unknown Rx unit/mL (3 mL) subcutaneous (insulin aspart U-100) carvedilol 25 mg tablet 25 mg PO BID #180 tabs 12/31/23 Unknown Rx furosemide 20 mg tablet 20 mg PO QDAY water pill #30 tabs 12/31/23 Unknown Rx insulin aspart U-100 100 unit/mL 12 unit subcut .COMPLEX Diabetes 12/31/23 Unknown History (3 mL) subcutaneous pen insulin degludec 100 unit/mL (3 14 unit subcut DAILY 12/31/23 Unknown History mL) subcutaneous pen (Tresiba FlexTouch U-100 insulin) amlodipine 5 mg tablet 5 mg PO DAILY blood pressure 02/17/24 Unknown History dapagliflozin propanediol 10 mg 10 mg PO DAILY HF 02/17/24 Unknown History tablet (Farxiga) Allergy/AdvReac Type Severity Reaction Status Date / Time red dye Allergy Hives Verified 02/17/24 17:04 Rmlvodw-FPQ-GwL Reductase AdvReac Severe Myalgias Verified 02/17/24 17:04 Inhibitor (Eokreoe-Heu-Jug Reductase Inhibitor) Family History Father , Lung cancer Lung cancer Mother , Breast cancer Breast cancer Brother Cancer lymphoma Surgical History History of eye surgery History of left heart catheterization (LHC) (~05/26/15) Status post foot surgery Status post breast reduction S/P hysterectomy History of bilateral breast reduction surgery History of bilateral foot surgery History of hysterectomy Cardiac defibrillator in situ Social History household members: spouse Smoking Status: Former smoker quit date: 06/11/06 alcohol intake: never substance use type: does not use caffeine: No what type of physical activity do you participate in: none seatbelt use: always do you feel safe at home: Yes ROS Constitutional Constitutional: Denies fever(s) or weight loss Eyes Eyes: Reports systems reviewed and no addt'l complaints, except as documented ENT HEENT: Reports systems reviewed and no addt'l complaints, except as documented Cardiovascular Cardiovascular: Denies chest pain at rest, chest pain with activity, dyspnea at rest, dyspnea on exertion, edema, palpitations or paroxysmal nocturnal dyspnea Respiratory/Chest Respiratory/Chest: Denies dyspnea on exertion, productive cough, shortness of breath at rest or shortness of breath with exertion Gastrointestinal Gastrointestinal: Denies change in bowel habits, nausea, vomiting or weight changes Genitourinary Genitourinary: Denies difficulty urinating Musculoskeletal Musculoskeletal: Denies joint stiffness or muscle weakness Integumentary Integumentary: Denies lesions Neurologic Neurologic: Denies dizziness or syncope Psychiatric Psychiatric: Denies anxiety Endocrine Endocrinology: Denies excessive sweating or fatigue Hematologic/Lymphatic Hematologic/Lymphatic: Denies anemia Allergic/Immunologic Allergic/Immunologic: Denies seasonal rhinorrhea Physical Exam Const alert, oriented x3 and no apparent distress General Appearance: cooperative HEENT hearing grossly normal bilaterally Head and Scalp: atraumatic Eyes EOMs intact bilaterally Neck General: normal visual inspection Chest inspection of chest normal and palpation of chest normal Resp normal respiratory effort Auscultation: clear to auscultation bilaterally Cardio regular rate, regular rhythm, S1 normal heart sound and S2 normal heart sound Jugular Venous Distention: JVD GI normal to inspection, nondistended, normoactive bowel sounds Extremity normal capillary refill and no pedal edema Peripheral Pulses: Yes pulses 2+ throughout and femoral pulses present Skin no rashes or lesions noted Neuro oriented x3 and CN's II-XII intact bilaterally Psych Appearance: grossly normal and appropriate Risk Stratification Risk Stratification Applicable: Yes Age >/= 65: Yes >/= 3 CAD Risk Factors (HTN, HLD, DM, family hx of CAD, or current smoker): No Aspirin Use in the Past 7 Days: Yes Severe Angina (>/= episodes in 24 hours): No EKG ST Changes >/= 0.5mm: No Positive Cardiac Marker: Yes GHANSHYAM Risk Stratification Score: 3 GHANSHYAM % Risk: 13% Risk Objective Data Vital Signs: Vital Signs Temp Pulse Resp BP Pulse Ox O2 Del Method 98 F 96 16 169/99 H 95 Room Air 02/18/24 06:00 02/18/24 06:00 02/18/24 06:00 02/18/24 06:00 02/18/24 06:00 02/18/24 07:32 Oxygen Delivery Method Room Air Weight: 240 lb 11.2 oz Body Mass Index (BMI) 41.1 Intake & Output: Intake and Output for Last 24 Hours 02/16/24 02/17/24 02/18/24 23:59 23:59 23:59 Intake Total 1110 / 1110 1066.17 / 1066.17 Output Total 300 / 300 Balance 1110 / 810 766.17 / 766.17 Lab / Micro Data 02/18/24 03:25 02/18/24 03:25 Labs: Laboratory Results - last 24 hr 02/17/24 17:35: WBC 11.4 H, RBC 5.56 H, Hgb 15.3 H, Hct 48.0 H, MCV 86.3, MCH 27.5, MCHC 31.9 L, RDW Std Deviation 40.3, RDW Coeff of Ivet 12.8, Plt Count 288, MPV 9.8, Immature Gran % (Auto) 0.300, Neut % (Auto) 82.0 H, Lymph % (Auto) 13.3 L, Granite % (Auto) 3.4, Eos % (Auto) 0.4, Baso % (Auto) 0.6, Absolute Neuts (auto) 9.4 H, Absolute Lymphs (auto) 1.52, Nucleated RBC % 0, Sodium 138, Potassium 3.4 L, Chloride 102, Carbon Dioxide 27.0, Anion Gap 9, BUN 17, Creatinine 0.97, Est GFR (MDRD) Af Amer 73, Est GFR (MDRD) Non-Af 60, BUN/Creatinine Ratio 17.5, Glucose 194 H, Calcium 9.5, Magnesium 1.7, Total Bilirubin 1.10 H, AST 13 L, ALT 20, Alkaline Phosphatase 106, Troponin I High Sens 201 H*, Total Protein 7.2, Albumin 3.6, Globulin 3.6, Albumin/Globulin Ratio 1.0, Lipase 44 02/17/24 21:33: PT 14.5, INR 1.1, APTT 24.6, Troponin I High Sens 344 H* 02/17/24 23:25: Troponin I High Sens 523 H* 02/17/24 23:39: POC Glucose 301 H 02/18/24 03:25: WBC 12.9 H, RBC 5.68 H, Hgb 15.8 H, Hct 49.0 H, MCV 86.3, MCH 27.8, MCHC 32.2, RDW Std Deviation 40.1, RDW Coeff of Ivet 12.9, Plt Count 308, MPV 9.5, Immature Gran % (Auto) 0.200, Neut % (Auto) 91.0 H, Lymph % (Auto) 6.0 L, Granite % (Auto) 2.5, Eos % (Auto) 0.1, Baso % (Auto) 0.2, Absolute Neuts (auto) 11.7 H, Absolute Lymphs (auto) 0.77 L, Nucleated RBC % 0, APTT 47.9 H, Sodium 135 L, Potassium 3.7, Chloride 99, Carbon Dioxide 22.0, Anion Gap 14, BUN 14, Creatinine 0.90, Estim Creat Clear Calc 69.77, Est GFR (MDRD) Af Amer 79, Est GFR (MDRD) Non-Af 65, BUN/Creatinine Ratio 15.5, Glucose 306 H, Calcium 8.7, Total Bilirubin 1.40 H, AST 12 L, ALT 16, Alkaline Phosphatase 102, Troponin I High Sens 877 H*, Total Protein 7.2, Albumin 3.5, Globulin 3.7, Albumin/Globulin Ratio 0.9, Triglycerides 106, Cholesterol 265 H, LDL Cholesterol 167 H, VLDL Cholesterol 21, HDL Cholesterol 77, TSH 3.650 02/18/24 06:15: POC Glucose 317 H Cardiology Labs/Tests 02/17/24 17:35: WBC 11.4 H, RBC 5.56 H, Hgb 15.3 H, Hct 48.0 H, MCV 86.3, MCH 27.5, MCHC 31.9 L, Plt Count 288, MPV 9.8, Immature Gran % (Auto) 0.300, Neut % (Auto) 82.0 H, Lymph % (Auto) 13.3 L, Granite % (Auto) 3.4, Eos % (Auto) 0.4, Baso % (Auto) 0.6, Absolute Neuts (auto) 9.4 H, Nucleated RBC % 0, Sodium 138, Potassium 3.4 L, Chloride 102, Carbon Dioxide 27.0, Anion Gap 9, BUN 17, Creatinine 0.97, Est GFR (MDRD) Af Amer 73, Est GFR (MDRD) Non-Af 60, BUN/Creatinine Ratio 17.5, Glucose 194 H, Calcium 9.5, Magnesium 1.7, Total Bilirubin 1.10 H 02/17/24 21:33: PT 14.5, INR 1.1, APTT 24.6 02/18/24 03:25: WBC 12.9 H, RBC 5.68 H, Hgb 15.8 H, Hct 49.0 H, MCV 86.3, MCH 27.8, MCHC 32.2, Plt Count 308, MPV 9.5, Immature Gran % (Auto) 0.200, Neut % (Auto) 91.0 H, Lymph % (Auto) 6.0 L, Granite % (Auto) 2.5, Eos % (Auto) 0.1, Baso % (Auto) 0.2, Absolute Neuts (auto) 11.7 H, Nucleated RBC % 0, APTT 47.9 H, Sodium 135 L, Potassium 3.7, Chloride 99, Carbon Dioxide 22.0, Anion Gap 14, BUN 14, Creatinine 0.90, Est GFR (MDRD) Af Amer 79, Est GFR (MDRD) Non-Af 65, BUN/Creatinine Ratio 15.5, Glucose 306 H, Calcium 8.7, Total Bilirubin 1.40 H, Triglycerides 106, Cholesterol 265 H, LDL Cholesterol 167 H, VLDL Cholesterol 21, HDL Cholesterol 77 Rhythm: EKG: ECHO: Stress Test: Cardiac Cath: PCI: CT Surgery: Holter monitor: EPS: PPM: CXR: Chest CT Scan: Radiography Diagnostic Testing: Radiology Impression Head/Neck CTA 02/17/24 19:19 IMPRESSION: Mild atherosclerotic changes of the head and neck with most severe stenosis of the P2 segment of the left posterior cerebral Electronically Signed: Kiran Bolton MD at 19:57 EDT , ADDENDUM: 02/17/242009 IMPRESSION: Mild atherosclerotic changes of the head and neck with most severe stenosis of the P2 segment of the left posterior cerebral N.B. : The above Results were Read Back by Kiran Bolton MD to [place] Herr MD, and understanding confirmed on 02/17/2024 20:03:41 (ET). Electronically Signed: Kiran Bolton MD at 19:57 EDT , Brain CT 02/17/24 19:26 IMPRESSION: Moderate periventricular white matter ischemic changes and possible tiny old right lacunar infarct. No mass or acute bleed. If concern for acute infarct MRI recommended Electronically Signed: Kiran Bolton MD at 19:42 EDT , ADDENDUM: 02/17/24 1950 IMPRESSION: Moderate periventricular white matter ischemic changes and possible tiny old right lacunar infarct. No mass or acute bleed. If concern for acute infarct MRI recommended N.B. : The above Results were Read Back by Kiran Bolton MD to [place] Herr MD, and understanding confirmed on 02/17/2024 19:44:03 (ET). Electronically Signed: Kiran Bolton MD at 19:42 EDT , Chest X-Ray 02/17/24 19:40 IMPRESSION: Elevated right hemidiaphragm and mild basilar atelectasis Electronically Signed: Kiran Bolton MD at 20:20 EDT ,
[2024-02-18 08:18] LABS: Hemoglobin A1c 7.3 % (3.8-5.6)
--- NOTE | 2024-02-18 09:39 | CASEMGMT ---
Insurance review for hospitals In-network with?[employer] M[employer] insurance if transfer is recommended is as follows: [facility], [place], [facility], [place], [facility], [facility], [facility], [facility], [place], [facility]), and . Kristen Goldman, Discharge Planning Asst.
--- NOTE | 2024-02-18 11:19 | CL.D_ITS ---
Patient Name: THIAGO PIERRE Study Date: 02/18/2024 Performing: Misbah Marcum MD Ht: 64 inches 162.56 cm : 1955 Wt: 241 lbs 109.18 kg Age: 68 Gender: female BSA: 2.12 PROCEDURE(S) PERFORMED DC01-(48130)LHC/COR/LV CLINICAL PROFILE AND INDICATIONS Indications: Suspected CAD Heart Failure: None Stress/Imaging Stress/Image Study Performed: No CAD Presentations: Symptom unlikely to be ischemic. CONCLUSIONS Nonobstructive coronary artery disease but with diffuse mild to moderate disease noted in the left anterior descending artery Cardiomyopathy: Takotsubo RECOMMENDATIONS Medical therapy DESCRIPTION OF PROCEDURE The patient arrived to the procedure lab. The risks and benefits of the procedure as well as a full description of our services here and current unavailability of surgical backup were fully explained to the patient and/or their significant other prior to the catheterization. The Timeout was completed, verifying the correct patient and procedure. The patient's procedural site was prepped and draped in the usual fashion. Local anesthetic was given subcutaneously to right radial region with Lidocaine 2%. Using a modified Seldinger technique, arterial access was obtained via the right radial artery, a 6Fr sheath was inserted. Left Coronary Artery selective angiography was performed in multiple views using a 5 Fr. 4.0 Austell catheter. Right Coronary Artery selective angiography was then performed in multiple views using a 5 Fr. 4.0 [place]ell catheter. Left Ventriculography was performed in RDZ projection using a 5 Fr. Pigtail catheter. LV to AO pullback pressures were then recorded.The arterial sheath was pulled and a TR Band was applied for hemostasis w/ 12ml/air CORONARY ANGIOGRAPHY DOMINANCE: Right Dominant LEFT HEART ASSESSMENT Left Ventricular Ejection Fraction: by LV Gram 55 % Apical Hypokinesis - Moderate Normal Left Ventricular systolic function LEFT MAIN: Mild luminal irregularities LEFT ANTERIOR DESCENDING ARTERY: This is a medium size vessel with diffuse moderate disease noted in the midsegment as well as the distal LAD. CIRCUMFLEX ARTERY: Moderate luminal irregularities up to 50% RAMUS: Mild luminal irregularities less than 30% RIGHT CORONARY ARTERY: Moderate luminal irregularities up to 50% COMPLICATIONS No Complications PROCEDURE MEDICATIONS Versed 1 mg IV Fentanyl 50 mcg IV Oxygen: 2 L/min via nasal cannula Oxygen: 4 L/min via nasal cannula Aspirin (325mg) 1 Tabs PO @ 02/18/2024 10:15:38 Heparin given IA 02/18/2024 10:27:24 Verapamil 2.5mg, Ntg 100mcgs, 3000 units of Heparin given IA 02/18/2024 10:27:24 SUMMARY OF HEMODYNAMIC DATA Time AIR REST ECG 10:16:11 AO 144/74 (102) SA 10:46:47 LV 153/10, 13 10:53:11 LV 152/11, 18 10:53:17 LV 152/12, 19 10:54:21 LV 147/7, 10 10:54:27 LVp 158/7, 11 10:54:32 AOp 158/69 (104) 10:54:37 Signed By Misbah Marcum MD On 02/18/2024 11:18:54 Misbah Marcum MD
--- NOTE | 2024-02-18 11:54 | MRI_ITS ---
STUDY: MRI BRAIN WITHOUT CONTRAST REASON FOR EXAM: Female, 68 years old. DYSARTHRIA, POSSIBLE STROKE, confusion TECHNIQUE: Standardized multiplanar fat and water weighted pulse sequences were obtained. MRI examination of the brain obtained with standard protocol including multiplanar multiecho noncontrast imaging. Contrast: No contrast administered. COMPARISON: Prior study dated: 02/17/2024 HEMISPHERES, CEREBELLUM AND BRAINSTEM: 1. The cerebral parenchyma, ventricular system, subarachnoid spaces have normal configuration and density. There is a normal gyral pattern. There is normal trejo/white differentiation. No midline shift.. 2. Diffuse involutional change and moderate to extensive chronic deep white matter disease. No evidence of fluid restriction or acute ischemic change. No evidence of hemosiderin deposition or hemorrhage. There is a dilated perivascular space in the RIGHT lenticular nucleus. 3. No intraparenchymal mass, hemorrhage, or acute territorial infarct. 4. The cerebellum, brainstem, basilar and suprasellar cisterns have normal appearance. No Chiari malformation. PITUITARY: Infundibulum and pituitary have normal configuration. Midline structures appear normal. CSF SPACES: Appropriate for age. No hydrocephalus. Basal cisterns are patent. VESSELS: 1. There are normal flow voids noted in the great vessels at the skull base ORBITS AND PARANASAL SINUSES: 1. The globes have normal configuration however abnormal signal is present in the posterior chamber in a configuration suspicious of a retinal detachment. The ocular lenses on the LEFT is in normal position. Postoperative changes of RIGHT cataract repair. 2. Diffuse mucosal thickening in the ethmoid air cells. BONY ELEMENTS: Bony elements of the cranial vault, facial skeleton and skull base have normal appearance. SCALP AND SOFT TISSUES: Normal appearance of the soft tissues of the scalp and the visualized face OTHER: None MRI/Brain without Contrast IMPRESSION: 1. Diffuse involutional change and moderate to extensive chronic microvascular deep white matter disease. 2. No mass, hemorrhage, or acute territorial infarct. 3. Abnormal appearance of the LEFT globe suspicious of retinal detachment and intraocular hemorrhage. Normal appearance of the LEFT ocular lens. Electronically Signed: Shahram Ortiz MD at 17:59 EDT ,
--- NOTE | 2024-02-18 11:55 | NEURO.CONS ---
Assessment and Plan: Neuro Assessment/Plan THIAGO PIERRE is a 68 F with a past medical history of HTN, DMII, CAD, valvular heart disease , being evaluated by Teleneurology for possible nausea vomiting and slurred speech concerning for acute stroke. symptoms has largerly improved but she cont to have minimal dysarthria. she had elevated troponin and cardiac cath was done today. Diagnosis: TIA? Plan: cont ASA 81 mg daily MRI brain w.o cont if possible(ICD and pacemaker) repeat CT head if Pacemaker is not compatiable vascular risk factor modification follow up TTE HPI Consult Data Date of Consult: 02/18/24 HPI Narrative HPI Narrative: The patient is a 68 y/o F w/ PMHx: GERD, CKD stage III unclear subtype, HTN, HLD, HFrEF/Dilated cardiomyopathy s/p AICD,-Diabetes mellitus type II, Valvular Heart Disease, presents to the [facility] ED on 02/17/24 presented with nausea and vomiting and slurred speech after taking Ozempic = In the ED upon evaluation patient with ongoing persistent nausea and dry heaving with still evidence dysarthria but difficult assessment given severity of ongoing GI issues. Workup in the ED included T97.8, heart rate 66, BP 168/109, respiratory rate 20, 95% on room air with most recent repeat vitals heart rate 83, BP 218/107, respiratory rate 19, 94% on room air, CBC with WBC 11.4, hemoglobin 15.3, MCV 86.3, platelet 288 with left shift, CMP with potassium 3.4, glucose 194, T. bili 1.10, AST/LT 13/20, alk phos 106, lipase 44, troponin initial 201, CT of the brain with moderate periventricular white matter ischemic changes and possible tiny old right lacunar infarct with no acute intracranial findings otherwise, CTA head and neck with mild atherosclerotic changes of the head and neck with most severe stenosis of the P2 segment of the left posterior cerebral, chest x-ray with no acute evidence of ischemia, EKG with paced rhythm with no acute evidence of ischemia, in the ED patient ministered Zofran 4 mg IV x 2, Reglan 10 mg IV x 1, morphine 4 mg IV x 2 as well as 1 L normal saline. [facility] Medical History Vertigo Carotid artery disease Pure hypercholesterolemia Essential hypertension Atherosclerotic heart disease of [place] coronary artery without angina pectoris Nonrheumatic mitral (valve) insufficiency Dilated cardiomyopathy Chronic systolic (congestive) heart failure BALWINDER (acute kidney injury) Abnormal electrocardiogram Systolic CHF, acute Hypertension Obesity (BMI 30-39.9) Hyperlipidemia Diabetes mellitus, type II NICOLLE (obstructive sleep apnea) Home Medications ?Medication ?Instructions ?Recorded ?Last Taken ?Type gabapentin 300 mg capsule 600 mg PO QHS NERVE PAIN 01/12/16 10/25/19 20:00 History aspirin 81 mg tablet,delayed 81 mg PO DAILY@0800 HEALTH 01/26/17 10/25/19 20:00 History release MAINTENANCE cholecalciferol (vitamin D3) 50 2,000 unit PO PAYNE SUPPLEMENT 01/26/17 10/19/19 History mcg (2,000 unit) capsule fluoxetine 40 mg capsule (Prozac) 40 mg PO DAILY depression 11/01/18 10/25/19 08:00 History cetirizine 10 mg tablet (Zyrtec) 10 mg PO DAILY PRN Allergies 07/23/20 Unknown History magnesium chloride 71.5 mg 71.5 mg PO DAILY 07/23/20 Unknown History (magnesium chloride) tablet,delayed release (Slow-Mag) meclizine 25 mg tablet 25 mg PO TID PRN dizziness 07/23/20 Unknown History Handicap Parking Placard #1 ea 05/09/22 Unknown Rx ondansetron 4 mg disintegrating 4 mg PO Q6H PRN nausea and 06/01/22 Unknown Rx tablet vomiting #7 tabs ezetimibe 10 mg tablet (Zetia) 10 mg PO DAILY cholesterol #90 tabs 02/01/23 Unknown Rx omeprazole 20 mg tablet,delayed 40 mg PO DAILY GERD 07/02/23 Unknown History release glipizide 5 mg tablet 5 mg PO DAILY DM 07/04/23 Unknown History sacubitril 97 mg-valsartan 103 mg 1 tab PO BID HF #180 tabs 09/12/23 Unknown Rx tablet (Entresto) cyclobenzaprine 10 mg tablet 5 mg (1/2 x 10 mg) PO TID PRN 09/13/23 Unknown Rx Muscle Spasm #20 TABLETS hydrocodone-acetaminophen 5-325mg 1 tab PO Q6H PRN PRN Pain 3 days 09/13/23 Unknown Rx 5mg-325mg #10 TABLETS Novolog FlexPen U-100 Insulin 100 12 unit (0.12 mL) subcut TID #30 mL 10/04/23 Unknown Rx unit/mL (3 mL) subcutaneous (insulin aspart U-100) carvedilol 25 mg tablet 25 mg PO BID #180 tabs 12/31/23 Unknown Rx furosemide 20 mg tablet 20 mg PO QDAY water pill #30 tabs 12/31/23 Unknown Rx insulin aspart U-100 100 unit/mL 12 unit subcut .COMPLEX Diabetes 12/31/23 Unknown History (3 mL) subcutaneous pen insulin degludec 100 unit/mL (3 14 unit subcut DAILY 12/31/23 Unknown History mL) subcutaneous pen (Tresiba FlexTouch U-100 insulin) amlodipine 5 mg tablet 5 mg PO DAILY blood pressure 02/17/24 Unknown History dapagliflozin propanediol 10 mg 10 mg PO DAILY HF 02/17/24 Unknown History tablet (Farxiga) Allergy/AdvReac Type Severity Reaction Status Date / Time red dye Allergy Hives Verified 02/17/24 17:04 Nvamorf-HLV-FvI Reductase AdvReac Severe Myalgias Verified 02/17/24 17:04 Inhibitor (Rdbwjvn-Tal-Zsd Reductase Inhibitor) Family History Father , Lung cancer Lung cancer Mother , Breast cancer Breast cancer Brother Cancer lymphoma Surgical History History of eye surgery History of left heart catheterization (LHC) (~05/26/15) Status post foot surgery Status post breast reduction S/P hysterectomy History of bilateral breast reduction surgery History of bilateral foot surgery History of hysterectomy Cardiac defibrillator in situ Social History household members: spouse Smoking Status: Former smoker quit date: 06/11/06 alcohol intake: never substance use type: does not use caffeine: No what type of physical activity do you participate in: none seatbelt use: always do you feel safe at home: Yes Vital Signs Vital Signs Vital Signs: 02/17/24 17:00 02/17/24 18:59 02/17/24 19:37 Temperature 97.8 F Temperature Source Temporal Pulse Rate 66 81 124 H Respiratory Rate 20 H 28 H 22 H Respiratory Effort Respiratory Depth Respiratory Pattern Blood Pressure 168/109 H 219/101 H 169/87 H Blood Pressure Mean 128 140 114 Blood Pressure Source Blood Pressure Position Blood Pressure Location Pulse Ox 95 95 Oxygen Delivery Method Room Air Room Air 02/17/24 19:52 02/17/24 20:00 02/17/24 20:03 Temperature Temperature Source Pulse Rate 118 H 74 83 Respiratory Rate 22 H 19 H Respiratory Effort Respiratory Depth Respiratory Pattern Blood Pressure 191/101 H 218/107 H Blood Pressure Mean 131 144 Blood Pressure Source Blood Pressure Position Blood Pressure Location Pulse Ox 91 95 94 Oxygen Delivery Method Room Air Room Air Room Air 02/17/24 20:26 02/17/24 21:22 02/17/24 22:00 Temperature 98.3 F 96 F L 96.5 F L Temperature Source Temporal Temporal Pulse Rate 85 79 80 Respiratory Rate 18 16 16 Respiratory Effort Respiratory Depth Respiratory Pattern Blood Pressure 188/87 H 217/99 H 187/121 H Blood Pressure Mean 120 138 143 Blood Pressure Source Monitor Monitor Blood Pressure Position Semi-Fowlers Semi-Fowlers Blood Pressure Location Left Arm Right Forearm Pulse Ox 94 98 98 Oxygen Delivery Method Room Air Room Air 02/17/24 22:00 02/17/24 23:00 02/17/24 23:00 Temperature 96.8 F L Temperature Source Temporal Pulse Rate 80 Respiratory Rate 16 Respiratory Effort Normal Respiratory Depth Normal Respiratory Pattern Normal Blood Pressure 215/110 H Blood Pressure Mean 145 Blood Pressure Source Monitor Blood Pressure Position Semi-Fowlers Blood Pressure Location Right Forearm Pulse Ox 92 99 Oxygen Delivery Method Room Air Room Air Room Air 02/18/24 00:00 02/18/24 00:21 02/18/24 01:00 Temperature 97 F L 97 F L Temperature Source Temporal Temporal Pulse Rate 80 80 80 Respiratory Rate 16 16 Respiratory Effort Respiratory Depth Respiratory Pattern Blood Pressure 227/117 H 218/120 H 193/111 H Blood Pressure Mean 153 138 Blood Pressure Source Monitor Monitor Blood Pressure Position Semi-Fowlers Semi-Fowlers Blood Pressure Location Right Forearm Right Forearm Pulse Ox 93 93 Oxygen Delivery Method Room Air Room Air 02/18/24 02:00 02/18/24 04:00 02/18/24 06:00 Temperature 96.8 F L 98 F 98 F Temperature Source Temporal Oral Oral Pulse Rate 92 94 96 Respiratory Rate 16 16 16 Respiratory Effort Respiratory Depth Respiratory Pattern Blood Pressure 202/106 H 180/95 H 169/99 H Blood Pressure Mean 138 123 122 Blood Pressure Source Monitor Monitor Monitor Blood Pressure Position Semi-Fowlers Semi-Fowlers Semi-Fowlers Blood Pressure Location Right Forearm Right Forearm Right Forearm Pulse Ox 95 94 95 Oxygen Delivery Method Room Air Room Air Room Air 02/18/24 07:32 02/18/24 08:30 02/18/24 10:00 Temperature 97.9 F Temperature Source Temporal Pulse Rate 100 Respiratory Rate 16 Respiratory Effort Normal Non-Labored Respiratory Depth Normal Respiratory Pattern Normal Blood Pressure 148/77 H Blood Pressure Mean 100 Blood Pressure Source Monitor Blood Pressure Position Semi-Fowlers Blood Pressure Location Right Arm Pulse Ox 94 Oxygen Delivery Method Room Air Room Air Room Air 02/18/24 11:21 02/18/24 11:44 Temperature 97.9 F Temperature Source Temporal Pulse Rate 84 66 Respiratory Rate 16 15 Respiratory Effort Respiratory Depth Respiratory Pattern Blood Pressure 138/76 H 138/98 H Blood Pressure Mean 96 111 Blood Pressure Source Monitor Monitor Blood Pressure Position Semi-Fowlers Semi-Fowlers Blood Pressure Location Left Arm Left Arm Pulse Ox 95 95 Oxygen Delivery Method Room Air Room Air Weight Weight: 109.18 kg Body Mass Index (BMI) 41.1 EEG Results Procedure Details EEG Procedure Details: THIAGO PIERRE is a 68 year old F with a past medical history of , who presents for evaluation of Electroencephalogram on DATE at TIME NIHSS NIHSS Nursing Documentation NIHSS Nursing Documentation: NIHSS: Ischemic Stroke/TIA Start: 02/17/24 21:06 Text: For PCU Patients: NIH and Neuro Check every 4 Status: Active hours, PRN and with change in RN caregiver. Freq: [id number] Protocol: Activity Type Activity Date Activity User E-sign Co-sign Detail Recorded Client Recorded Date Recorded By Document 02/18/24 11:46 DS gg 02/18/24 11:46 DS 02/18/24 11:46 NIH Stroke Scale [NIHSS] A score of 0 is normal or asymptomatic . Total possible score is 42. Inpatient: RN or Physician to activate a stroke alert for onset of new stroke symptoms or with NIHSS increase >/= 3 points. Following change in neurological status, NIHSS will be performed per physician order or more frequently PRN. -1a. Level of Consciousness Alert; keenly responsive -1b. LOC Questions Answers BOTH questions correctly. -1c. LOC Commands Performs both tasks correctly . -2. Best Gaze Normal -3. Visual No visual loss -4. Facial Palsy Normal symmetrical movements -5a. Left Arm No drift; arm holds 90 (or 45 ) degrees for full 10 seconds -5b. Right Arm No drift; arm holds 90 (or 45 ) degrees for full 10 seconds -6a. Left Leg No drift; leg holds 30-degree position for full 5 seconds -6b. Right Leg No drift; leg holds 30-degree position for full 5 seconds -7. Limb Ataxia Present in 1 limb -8. Sensory Normal; no sensory loss -9. Best Language No aphasia; normal -10. Dysarthria Mild-to- moderate dysarthria; -11. Extinction and Inattention No abnormality -Total 2 Query Text:A score of 0 is normal or asymptomatic. Total possible score is 42 . ED: Notify Physician for NIHSS increase by > / = 3 points. Inpatient: RN or Physician to activate a stroke alert for NIHSS increase of > / = 3 points. Coma Scale [Assess] -Eye Opening Spontaneous -Motor Obeys Commands -Verbal Oriented [Total] -Coma Scale Total 15 Physical Exam Neuro oriented x3 Sensorium / Orientation: awake, alert, oriented to person, oriented to place and oriented to time Cranial Nerves: CN III (oculomotor), CN IV (trochlear), CN V (trigeminal), CN (abducens), CN VII (facial) and CN IX and CN X (glossopharyngeal/vagus) Coordination / Balance: [id number] test normal Speech: speech normal Motor Exam: strength 5/5 throughout Lab / Micro Data 02/18/24 03:25 02/18/24 03:25 Labs: Laboratory Results - last 24 hr 02/17/24 17:35: WBC 11.4 H, RBC 5.56 H, Hgb 15.3 H, Hct 48.0 H, MCV 86.3, MCH 27.5, MCHC 31.9 L, RDW Std Deviation 40.3, RDW Coeff of Ivet 12.8, Plt Count 288, MPV 9.8, Immature Gran % (Auto) 0.300, Neut % (Auto) 82.0 H, Lymph % (Auto) 13.3 L, Pershing % (Auto) 3.4, Eos % (Auto) 0.4, Baso % (Auto) 0.6, Absolute Neuts (auto) 9.4 H, Absolute Lymphs (auto) 1.52, Nucleated RBC % 0, Sodium 138, Potassium 3.4 L, Chloride 102, Carbon Dioxide 27.0, Anion Gap 9, BUN 17, Creatinine 0.97, Est GFR (MDRD) Af Amer 73, Est GFR (MDRD) Non-Af 60, BUN/Creatinine Ratio 17.5, Glucose 194 H, Calcium 9.5, Magnesium 1.7, Total Bilirubin 1.10 H, AST 13 L, ALT 20, Alkaline Phosphatase 106, Troponin I High Sens 201 H*, Total Protein 7.2, Albumin 3.6, Globulin 3.6, Albumin/Globulin Ratio 1.0, Lipase 44 02/17/24 21:33: PT 14.5, INR 1.1, APTT 24.6, Troponin I High Sens 344 H* 02/17/24 23:25: Troponin I High Sens 523 H* 02/17/24 23:39: POC Glucose 301 H 02/18/24 03:25: WBC 12.9 H, RBC 5.68 H, Hgb 15.8 H, Hct 49.0 H, MCV 86.3, MCH 27.8, MCHC 32.2, RDW Std Deviation 40.1, RDW Coeff of Ivet 12.9, Plt Count 308, MPV 9.5, Immature Gran % (Auto) 0.200, Neut % (Auto) 91.0 H, Lymph % (Auto) 6.0 L, Pershing % (Auto) 2.5, Eos % (Auto) 0.1, Baso % (Auto) 0.2, Absolute Neuts (auto) 11.7 H, Absolute Lymphs (auto) 0.77 L, Nucleated RBC % 0, APTT 47.9 H, Sodium 135 L, Potassium 3.7, Chloride 99, Carbon Dioxide 22.0, Anion Gap 14, BUN 14, Creatinine 0.90, Estim Creat Clear Calc 69.77, Est GFR (MDRD) Af Amer 79, Est GFR (MDRD) Non-Af 65, BUN/Creatinine Ratio 15.5, Glucose 306 H, Hemoglobin A1c 7.3 H, Calcium 8.7, Total Bilirubin 1.40 H, AST 12 L, ALT 16, Alkaline Phosphatase 102, Troponin I High Sens 877 H*, Total Protein 7.2, Albumin 3.5, Globulin 3.7, Albumin/Globulin Ratio 0.9, Triglycerides 106, Cholesterol 265 H, LDL Cholesterol 167 H, VLDL Cholesterol 21, HDL Cholesterol 77, TSH 3.650 02/18/24 06:15: POC Glucose 317 H Imaging Radiology Impression Head/Neck CTA 02/17/24 19:19 IMPRESSION: Mild atherosclerotic changes of the head and neck with most severe stenosis of the P2 segment of the left posterior cerebral Electronically Signed: Kiran Bolton MD at 19:57 EDT , ADDENDUM: 02/17/242009 IMPRESSION: Mild atherosclerotic changes of the head and neck with most severe stenosis of the P2 segment of the left posterior cerebral N.B. : The above Results were Read Back by Kiran Bolton MD to Antonio Herr MD, and understanding confirmed on 02/17/2024 20:03:41 (ET). Electronically Signed: Kiran Bolton MD at 19:57 EDT , Brain CT 02/17/24 19:26 IMPRESSION: Moderate periventricular white matter ischemic changes and possible tiny old right lacunar infarct. No mass or acute bleed. If concern for acute infarct MRI recommended Electronically Signed: Kiran Bolton MD at 19:42 EDT , ADDENDUM: 02/17/241949 IMPRESSION: Moderate periventricular white matter ischemic changes and possible tiny old right lacunar infarct. No mass or acute bleed. If concern for acute infarct MRI recommended N.B. : The above Results were Read Back by Kiran Bolton MD to Antonio Herr MD, and understanding confirmed on 02/17/2024 19:44:03 (ET). Electronically Signed: Kiran Bolton MD at 19:42 EDT Reading Location ID and State: [address] / [place] Tel [phone], Service support , Chest X-Ray 02/17/24 19:40 IMPRESSION: Elevated right hemidiaphragm and mild basilar atelectasis Electronically Signed: Kiran Bolton MD at 20:20 EDT Reading Location ID and State: [place] / [place] Tel [phone], Service support , Active Medications Active Medications Active Medications: Current Medications Generic Name Dose Route Start Last Admin Trade Name Freq PRN Reason Stop Dose Admin Acetaminophen 650 mg 02/17/24 21:06 Acetaminophen 325 Mg Tablet PO Q4H PRN PRN Fever, pain 1-03/20 Al Hydrox/Mg Hydrox/Simethicone 30 ml 02/17/24 21:06 Mag /Aluminum/Simeth Wch Udc 30 Ml Oral.Susp PO Q6H PRN PRN Gastric Burning Albuterol Sulfate 2.5 mg 02/17/24 21:06 Albuterol 2.5 Mg/3 Ml Vial.Neb. INHALATION Q2H PRN PRN Dyspnea, wheezing Aspirin 81 mg 02/18/24 08:00 Aspirin E.C. 81 Mg Tablet PO BREAKFAST ABDULLAHI Dicyclomine HCl 20 mg 02/17/24 22:00 02/18/24 06:08 Dicyclomine 10 Mg Capsule PO 20 mg ACHS ABDULLAHI Administration Ezetimibe 10 mg 02/18/24 10:00 Ezetimibe 10 Mg Tablet PO DAILY ABDULLAHI Fluoxetine HCl 40 mg 02/18/24 10:00 Fluoxetine Hcl 40 Mg Capsule PO DAILY ABDULLAHI Glucagon 1 mg 02/17/24 21:06 Glucagon 1 Mg/Ml Syringe IM X1 PRN HYPOGLYCEMIA Protocol Haloperidol Lactate 0.5 mg 02/18/24 00:16 Haloperidol Lactate 5 Mg/Ml Vial IV Q4H PRN PRN NAUSEA/VOMITING, breakthrough Protocol Heparin Sodium (Porcine) 0 unit 02/17/24 21:25 Heparin Injection (Vial) 5,000 Unit/Ml Vial IV UD PRN dose adjustment Protocol Hydralazine HCl 5 mg 02/17/24 21:06 02/18/24 00:21 Hydralazine 20 Mg/Ml Vial IV 02/18/24 21:06 5 mg Q30M PRN Administration maintain BP parameters with HR <60 Heparin Sodium/Dextrose 25,000 units in 250 mls @ 10 mls/hr 02/17/24 21:06 02/18/24 09:55 CONT INF 0 units/hr .Q25H ABDULLAHI 0 mls/hr Titration Protocol As Directed Dextrose 250 mls @ 0 mls/hr 02/17/24 21:06 Dextrose 10%-Water IV .Q0M PRN HYPOGLYCEMIA Protocol As Directed Sodium Chloride 250 mls @ 15 mls/hr 02/17/24 21:23 IV .[id number] PRN Additional IVPB Infusion Sodium Chloride 250 mls @ 15 mls/hr 02/17/24 21:23 IV .[id number] PRN Saline Flush Insulin Human Lispro 0 unit 02/17/24 22:00 02/18/24 06:16 Insulin Lispro 100 Unit/Ml Insuln.Pen SC 5 u ACHS ABDULLAHI Administration Protocol Labetalol HCl 10 - 20 mg 02/17/24 21:06 Labetalol (Prefilled) 20 Mg/4 Ml IV 02/18/24 21:06 Q10M PRN PRN maintain BP parameters with HR >/=60 Melatonin 3 mg 02/17/24 21:06 Melatonin 3 Mg Tablet PO QHS PRN PRN INSOMNIA Pantoprazole Sodium 40 mg 02/18/24 11:45 Pantoprazole Sodium 40 Mg Tablet PO BID ABDULLAHI Prochlorperazine Edisylate 5 mg 02/17/24 21:06 02/17/24 22:15 Prochlorperazine 10 Mg/2 Ml Vial IV 5 mg Q4H PRN PRN Administration Breakthrough Nausea/Vomiting Psyllium Hydrophilic Mucilloid 1 packet 02/17/24 21:06 Psyllium 1 Packet PO DAILY PRN PRN Constipation Sodium Chloride 10 - 40 ml 02/17/24 21:23 0.9% Saline Lock 10 Ml Syringe IV UD PRN SALINE FLUSH
[2024-02-18] MEDS: Pantoprazole Sodium 40 MG Tablet PO (12:36)
[2024-02-18] MEDS: Fluoxetine HCl 40 MG CAPSULE PO (12:37)
[2024-02-18] MEDS: Ezetimibe 10 MG Tablet PO (12:37)
--- NOTE | 2024-02-18 14:22 | CASEMGMT ---
Addendum entered by Deya Yin 02/19/24 15:31: It appears that the patient was discharged late yesterday evening. This shift manager tried calling the patient, but she did not answer the phone. [facility] care on and that they will be in contact with the patient regarding this. Original Note: SOPHIE HILLIARD Assessment Face to Face with patient for initial transition planning/care coordination assessment. SOPHIE HILLIARD introduced self and role at [facility], pt voices understanding. Pt is A&Ox4 and is resting comfortably in bed and is calm. Care providers, pharmacy, and demographics verified. Admitting dx: Dysarthria, Elevated Troponin LACE Strata: 3 PCP: Sarah Toth Specialists: Cyrus ([place]), ELBA Preferred Pharm[facility] Prescription Benefit: Yes LNOK: Jens Prema (H) Living Arrangements: Pt lives with her SO in a mobile home with 3 steps to enter ADLs/IADLs: Ind Transportation: Self, DME: CBGM and supplies. CPAP @ HS only with no additional oxygen. BP Monitor. Denies further needs HHC/SNF: Pt states that a [employer] comes to the home once per year for a check-up. This is through her insurance. Denies other HHC/ SNF Hx Pt?s goal: Home Plan: Home with HHC. Pt states that she would be interested in HHC being set up and would be willing to see SN, PT, OT, and ST. At this time, the pt denies wanting to review a list of local in network HHC companies and states that she would prefer [facility] HH as long as they are in-network. TC to [facility] at [facility] and referral made. Awaiting return response. Report given to [employer]LE[employer] STAMPER CM. Alirio Yin RN, CM
[2024-02-18 14:39] LABS: Bedside Glucose 291 mg/dL (74-106)
[2024-02-18 17:29] LABS: Bedside Glucose 223 mg/dL (74-106)
--- NOTE | 2024-02-18 18:15 | DCINST_ITS ---
Discharge Instructions Diet Discharge Diet: 1800 Calorie Control Diet Activity Discharge Activity: Return to Normal Activity Weight Bearing Status: Full weight bearing Follow Up Care Test Results: Test results from this visit will be discussed in further detail at your follow- up appointment, if applicable. Discharge Plan Admission Admit Date/Time: 02/17/24 20:34 Primary Reason for Your Visit: non stemi, TIA Attending Provider: José Antonio Emerson Primary Care Provider: Sarah Toth [facility] Consulting Providers: Cesar Parekh; Merlyn Hardy; Annita Barba; Samra Samano; Maude Anderson; Ferdinand Cruz; Tati Hardwick; Sunny Connelly; Adarsh Chacon; Arturo Fuller; Sherley Rodriguez; Shaka Lerner; Mary Zuñiga; Serjio Nice; Isabela Alaniz Ant; Dwight Taylor; Joleen Spangler; Modesto Clements; Zaria Esteban; Rand Chamberlain; Misbah Marcum; Taty Velasquez Discharge Orders/Prescriptions Prescriptions: Continued fluoxetine [Prozac] 40 mg capsule 40 mg PO DAILY cetirizine [Zyrtec] 10 mg tablet 10 mg PO DAILY PRN (Reason: Allergies) meclizine 25 mg tablet 25 mg PO TID PRN (Reason: dizziness) Slow-Mag 71.5 mg tablet,delayed release (DR/EC) 71.5 mg PO DAILY omeprazole 20 mg tablet,delayed release (DR/EC) 40 mg PO DAILY ezetimibe [Zetia] 10 mg tablet 10 mg PO DAILY Qty: 90 3RF glipizide 5 mg tablet 5 mg PO DAILY carvedilol 25 mg tablet 25 mg PO BID Qty: 180 3RF Rx Instructions: must administer with a meal/food furosemide 20 mg tablet 20 mg PO QDAY Qty: 30 11RF gabapentin 300 MG capsule 600 mg PO QHS Patient Comments: nerve pain aspirin 81 MG tablet 81 mg PO DAILY@0800 Patient Comments: [facility] cholecalciferol (vitamin D3) 2,000 UNIT capsule 2,000 unit PO PAYNE insulin aspart U-100 100 unit/mL (3 mL) insulin pen 12 unit SC 1700 Rx Instructions: 12 units subcutaneously before dinner meal ondansetron 4 mg tablet,disintegrating 4 mg PO Q6H PRN (Reason: nausea and vomiting) Qty: 7 0RF cyclobenzaprine 10 mg tablet 5 mg PO TID PRN (Reason: Muscle Spasm) Qty: 20 0RF amlodipine 5 mg tablet 5 mg PO DAILY dapagliflozin propanediol [Farxiga] 10 mg tablet 10 mg PO DAILY insulin aspart U-100 [Novolog FlexPen U-100 Insulin] 100 unit/mL (3 mL) insulin pen 9 unit subcut .breakfast and lunch insulin degludec [Tresiba FlexTouch U-100] 100 unit/mL (3 mL) insulin pen 18 unit subcut .hs Ozempic 1 mg/dose (4 mg/3 mL) pen injector 1 mg subcut .weekly (DME) Handicap Parking Placard See Rx Instructions .Route .MEDSUPPLY Qty: 1 0RF Rx Instructions: As directed Entresto 97-103 mg tablet 1 tab PO BID Qty: 180 3RF Referrals / Follow Up: Sarah Toth Chele, [employer] [Primary Care Provider] - See Referral Note (as scheduled) Disposition Disposition (needs filled in before D/C Order can be placed): Home, Self Care
--- NOTE | 2024-02-18 18:23 | DS.PCM_ITS ---
Providers Date of Admission: 02/17/24 Date of Discharge: 02/18/24 Primary Care Physician: Feliberto Toth, ARIA, [employer]-[facility] Consultations 02/17/24 21:06 Consult: Tele-Neurology Routine Consulting Provider: [facility] Reason for Consult: Acute Ischemic Stroke/TIA EMERGENT Consult: No MD Notified: Yes Date Notified: 02/17/24 Time Notified: 20:37 Method of Notification: ED Physician Initiated Nursing Unit Staff Notify [facility] of Tele-Neurology Consult: Yes 02/17/24 22:14 Consult: Cardiology Routine Consulting Provider: Misbah Marcum Reason for Consult: Elevated trop EMERGENT Consult: No MD Notified: Yes Date Notified: 02/18/24 Time Notified: 06:30 Method of Notification: Text Reason For Visit: DYSARTHRIA, ELEVATED TROPONIN Diagnosis Discharge Diagnosis (1) Elevated troponin: Status: Acute Code(s): R79.89 - Other specified abnormal findings of blood chemistry (2) Hx of cardiomyopathy: Status: Acute Code(s): Z86.79 - Personal history of other diseases of the circulatory system (3) Essential hypertension: Status: Chronic Code(s): I10 - Essential (primary) hypertension (4) Cardiac defibrillator in situ: Status: Chronic Code(s): Z95.810 - Presence of automatic (implantable) cardiac defibrillator Plan 1. Transient ischemic attack #2 non-STEMI #3 type 2 diabetes #4 atherosclerotic heart disease #5 hyperlipidemia Medications at Discharge Home Medications gabapentin 300 mg capsule 600 mg PO QHS NERVE PAIN 01/12/16 aspirin 81 mg tablet,delayed release 81 mg PO DAILY@0800 HEALTH MAINTENANCE 01/26/17 cholecalciferol (vitamin D3) 50 mcg (2,000 unit) capsule 2,000 unit PO PAYNE SUPPLEMENT 01/26/17 fluoxetine 40 mg capsule (Prozac) 40 mg PO DAILY depression 11/01/18 cetirizine 10 mg tablet (Zyrtec) 10 mg PO DAILY PRN Allergies 07/23/20 magnesium chloride 71.5 mg (magnesium chloride) tablet,delayed release (Slow- Mag) 71.5 mg PO DAILY suppliment 07/23/20 meclizine 25 mg tablet 25 mg PO TID PRN dizziness 07/23/20 Handicap Parking Placard #1 ea 05/09/22 ondansetron 4 mg disintegrating tablet 4 mg PO Q6H PRN nausea and vomiting #7 tabs 06/01/22 ezetimibe 10 mg tablet (Zetia) 10 mg PO DAILY cholesterol #90 tabs 02/01/23 omeprazole 20 mg tablet,delayed release 40 mg PO DAILY GERD 07/02/23 glipizide 5 mg tablet 5 mg PO DAILY DM 07/04/23 sacubitril 97 mg-valsartan 103 mg tablet (Entresto) 1 tab PO BID HF #180 tabs 09/12/23 cyclobenzaprine 10 mg tablet 5 mg (1/2 x 10 mg) PO TID PRN Muscle Spasm #20 TABLETS 09/13/23 carvedilol 25 mg tablet 25 mg PO BID #180 tabs 12/31/23 furosemide 20 mg tablet 20 mg PO QDAY water pill #30 tabs 12/31/23 insulin aspart U-100 100 unit/mL (3 mL) subcutaneous pen 12 unit subcut 1700 Diabetes 12/31/23 amlodipine 5 mg tablet 5 mg PO DAILY blood pressure 02/17/24 dapagliflozin propanediol 10 mg tablet (Farxiga) 10 mg PO DAILY HF 02/17/24 insulin aspart U-100 100 unit/mL (3 mL) subcutaneous pen (Novolog FlexPen U-100 Insulin aspart) 9 unit subcut .breakfast and lunch diabetes 02/18/24 insulin degludec 100 unit/mL (3 mL) subcutaneous pen (Tresiba FlexTouch U-100 insulin) 18 unit subcut .hs diabetes 02/18/24 semaglutide 1 mg/dose (4 mg/3 mL) subcutaneous pen injector (Ozempic) 1 mg subcut .weekly diabetes 02/18/24 Hospital Course Operations None Procedures 2-D Echocardiogram and Cardiac catheterization Summary of Care Provided Minutes Spent on Discharge: 32 Hospital Course: This 68-year-old white female was seen in the emergency room at [facility] with complaints of nausea and vomiting after taking Ozempic. Patient's blood pressure is noted to be elevated. Patient was treated with IV fluids and given Zofran for nausea. She was also given morphine. Patient was reevaluated and was having difficulty with her speech which she had not had when she first came in the emergency room, CTA of her head and neck was obtained which showed no abnormalities. Patient did not have any focal weakness but she was having obvious speech difficulties. She was seen in the emergency room by teleneurology, she was not felt to be a TNK candidate, labs showed an elevated troponin at 201, patient's white blood cell count was 11.4, chemistry profile was remarkable for a glucose of 306 and a bilirubin of 1.4. Patient was admitted to PCU, troponins were cycled and elevated up to a high of 877, she was seen in consultation by cardiology and underwent an echocardiogram which showed no evidence of a atrial septal defect, she underwent a cardiac catheterization which showed no evidence of occlusive coronary disease. Patient was seen by PT and OT as well as speech therapy, she underwent an MRI which showed no evidence of a stroke. On 02/18/2024, patient was seen and examined: On examination she appeared in good health and spirits, she does not appear to be in any distress. Vital signs as documented. Skin warm and dry and without overt rashes. Neck without JVD, thyroid appears normal, trachea is midline, neck is supple. Lungs clear, normal air movement was noted. Heart exam notable for regular rhythm, normal sounds and absence of murmurs, rubs or gallops. Abdomen unremarkable and without evidence of organomegaly, masses, or abdominal aortic enlargement, bowel sounds are present in all 4 quadrants, no abdominal tenderness was noted. Extremities nonedematous, no cyanosis was noted, no clubbing was noted. Neuro: Cranial nerves II through XII are grossly intact, no focal motor deficits were noted, sensation to light touch and pinprick is intact, motor exam 5/5 throughout. Psych: Patient is alert and oriented x3, she does not appear anxious or depressed, she does not appear agitated. Patient appears stable for discharge home on 02/18/2024. Weight / BMI Weight Weight: 109.18 kg Body Mass Index (BMI) 41.1 ABG / Lab / Microbiology Data 02/18/24 03:25 02/18/24 03:25 Laboratory: Laboratory Results - last 24 hr 02/17/24 17:35: Magnesium 1.7, Troponin I High Sens 201 H* 02/17/24 21:33: PT 14.5, INR 1.1, APTT 24.6, Troponin I High Sens 344 H* 02/17/24 23:25: Troponin I High Sens 523 H* 02/17/24 23:39: POC Glucose 301 H 02/18/24 03:25: WBC 12.9 H, RBC 5.68 H, Hgb 15.8 H, Hct 49.0 H, MCV 86.3, MCH 27.8, MCHC 32.2, RDW Std Deviation 40.1, RDW Coeff of Ivet 12.9, Plt Count 308, MPV 9.5, Immature Gran % (Auto) 0.200, Neut % (Auto) 91.0 H, Lymph % (Auto) 6.0 L, [place] % (Auto) 2.5, Eos % (Auto) 0.1, Baso % (Auto) 0.2, Absolute Neuts (auto) 11.7 H, Absolute Lymphs (auto) 0.77 L, Nucleated RBC % 0, APTT 47.9 H, Sodium 135 L, Potassium 3.7, Chloride 99, Carbon Dioxide 22.0, Anion Gap 14, BUN 14, Creatinine 0.90, Estim Creat Clear Calc 69.77, Est GFR (MDRD) Af Amer 79, Est GFR (MDRD) Non-Af 65, BUN/Creatinine Ratio 15.5, Glucose 306 H, Hemoglobin A1c 7.3 H, Calcium 8.7, Total Bilirubin 1.40 H, AST 12 L, ALT 16, Alkaline Phosphatase 102, Troponin I High Sens 877 H*, Total Protein 7.2, Albumin 3.5, Globulin 3.7, Albumin/Globulin Ratio 0.9, Triglycerides 106, Cholesterol 265 H, LDL Cholesterol 167 H, VLDL Cholesterol 21, HDL Cholesterol 77, TSH 3.650 02/18/24 06:15: POC Glucose 317 H 02/18/24 12:02: POC Glucose 291 H 02/18/24 16:55: POC Glucose 223 H Radiography Diagnostic Testing: Radiology Impression Head/Neck CTA 02/17/24 19:19 IMPRESSION: Mild atherosclerotic changes of the head and neck with most severe stenosis of the P2 segment of the left posterior cerebral Electronically Signed: Kiran Bolton MD at 19:57 EDT , ADDENDUM: 02/17/242009 IMPRESSION: Mild atherosclerotic changes of the head and neck with most severe stenosis of the P2 segment of the left posterior cerebral N.B. : The above Results were Read Back by Kiran Bolton MD to Antonio Herr MD, and understanding confirmed on 02/17/2024 20:03:41 (ET). Electronically Signed: Kiran Bolton MD at 19:57 EDT , Brain CT 02/17/24 19:26 IMPRESSION: Moderate periventricular white matter ischemic changes and possible tiny old right lacunar infarct. No mass or acute bleed. If concern for acute infarct MRI recommended Electronically Signed: Kiran Bolton MD at 19:42 EDT , ADDENDUM: 02/17/24 1950 IMPRESSION: Moderate periventricular white matter ischemic changes and possible tiny old right lacunar infarct. No mass or acute bleed. If concern for acute infarct MRI recommended N.B. : The above Results were Read Back by Kiran Bolton MD to Antonio Herr MD, and understanding confirmed on 02/17/2024 19:44:03 (ET). Electronically Signed: Kiran Bolton MD at 19:42 EDT , Chest X-Ray 02/17/24 19:40 IMPRESSION: Elevated right hemidiaphragm and mild basilar atelectasis Electronically Signed: Kiran Bolton MD at 20:20 EDT , Echocardiogram 02/17/24 21:06 Interpretation Summary Normal LV size. The left ventricular ejection fraction is 50 %. Moderate concentric left ventricular hypertrophy. [place] : Severely Hypokinetic. Stage 1 diastolic dysfunction. Contrast injection was performed. Ordering Physician: Taty Velasquez Referring Physician: FELIBERTO TOTH Performed By: Tanesha Santos RCS Brain MRI 02/18/24 11:54 IMPRESSION: 1. Diffuse involutional change and moderate to extensive chronic microvascular deep white matter disease. 2. No mass, hemorrhage, or acute territorial infarct. 3. Abnormal appearance of the LEFT globe suspicious of retinal detachment and intraocular hemorrhage. Normal appearance of the LEFT ocular lens. Electronically Signed: Shahram Ortiz MD at 17:59 EDT , D/C Instructions Discharge Diet: 1800 Calorie Control Diet Weight Bearing Status: Full weight bearing Meaningful Use Info Meaningful Use Meaningful Use Diagnoses (Choose all that apply): AMI AMI/Post PCI/Angioplasty Aspirin given w/in 24hrs of arrival?: Yes ASA at discharge?: Yes Antiplatelet Therapy at Discharge:: Yes Statins at discharge?: No Reason statins not ordered:: Allergy Ruy/ARB at discharge?: Yes Beta Matthew at discharge?: Yes Done w/ Acute NE measure.: Yes Documented LVEF (%): 50 Ischemic Stroke Statin Dosing Therapy Reference: STATIN DOSE THERAPY REFERENCE: * Patients > 75 years receive moderate or high dose statin therapy. * Patients 75 years or YOUNGER should receive HIGH intensity statin dose unless contraindicated. You will be required to document reason for non-treatment if statin daily dose does not meet guidelines. HIGH DOSE STATIN THERAPY DAILY Atorvastatin > than or = to 40 mg Rosuvastatin > than or = to 20 mg Amlodipine + Atorvastatin > than or = to 2.5/40 mg Ezetimibe + Simvastatin 10/80 mg Simvastatin 80mg Discharge Plan Admission Admit Date/Time: 09/08/24 20:34 Primary Reason for Your Visit: non stemi, TIA Attending Provider: José Antonio Emerson Primary Care Provider: Feliberto Toth [facility] Consulting Providers: Cesar Parekh; Merlyn Hardy; Annita Barba; Samra Samano; Maude Anderson; Ferdinand Cruz; Tati Hardwick; Sunny Connelly; Adarsh Chacon; Arturo Fuller; Sherley Rodriguez; Shaka Lerner; Mary Zuñiga; Serjio Nice; Katty,[facility]; Dwight Taylor; Joleen Spangler; Modesto Clements; Zaria Esteban; Rand Chamberlain; Misbah Marcum; Taty Velasquez Discharge Orders/Prescriptions Prescriptions: Continued fluoxetine [Prozac] 40 mg capsule 40 mg PO DAILY cetirizine [Zyrtec] 10 mg tablet 10 mg PO DAILY PRN (Reason: Allergies) meclizine 25 mg tablet 25 mg PO TID PRN (Reason: dizziness) Slow-Mag 71.5 mg tablet,delayed release (DR/EC) 71.5 mg PO DAILY omeprazole 20 mg tablet,delayed release (DR/EC) 40 mg PO DAILY ezetimibe [Zetia] 10 mg tablet 10 mg PO DAILY Qty: 90 3RF glipizide 5 mg tablet 5 mg PO DAILY carvedilol 25 mg tablet 25 mg PO BID Qty: 180 3RF Rx Instructions: must administer with a meal/food furosemide 20 mg tablet 20 mg PO QDAY Qty: 30 11RF gabapentin 300 MG capsule 600 mg PO QHS Patient Comments: nerve pain aspirin 81 MG tablet 81 mg PO DAILY@0800 Patient Comments: [facility] cholecalciferol (vitamin D3) 2,000 UNIT capsule 2,000 unit PO PAYNE insulin aspart U-100 100 unit/mL (3 mL) insulin pen 12 unit SC 1700 Rx Instructions: 12 units subcutaneously before dinner meal ondansetron 4 mg tablet,disintegrating 4 mg PO Q6H PRN (Reason: nausea and vomiting) Qty: 7 0RF cyclobenzaprine 10 mg tablet 5 mg PO TID PRN (Reason: Muscle Spasm) Qty: 20 0RF amlodipine 5 mg tablet 5 mg PO DAILY dapagliflozin propanediol [Farxiga] 10 mg tablet 10 mg PO DAILY insulin aspart U-100 [Novolog FlexPen U-100 Insulin] 100 unit/mL (3 mL) insulin pen 9 unit subcut .breakfast and lunch insulin degludec [Tresiba FlexTouch U-100] 100 unit/mL (3 mL) insulin pen 18 unit subcut .hs Ozempic 1 mg/dose (4 mg/3 mL) pen injector 1 mg subcut .weekly (DME) Handicap Parking Placard See Rx Instructions .Route .MEDSUPPLY Qty: 1 0RF Rx Instructions: As directed Entresto 97-103 mg tablet 1 tab PO BID Qty: 180 3RF Referrals / Follow Up: Feliberto Toth VSChele, [employer]OCI[facility]-C [Primary Care Provider] - See Referral Note (as scheduled) Disposition Disposition (needs filled in before D/C Order can be placed): Home, Self Care Charges/Coding Visit Charges Inpatient E&M: 85655 Disch Hosp >30min
== END 2024-02-18 18:52 | disposition home or self-care (01) | DRG 69 ==
LOC: ED 20:13 → PCU 02-18 07:16
PROVIDERS: Admitting Provider Family Medicine; Emergency Provider Emergency Medicine; PCP Nurse Practitioner Family; Visit Provider Internal Medicine
DX: G45.9 Transient cerebral ischemic attack, unspecified (principal); I21.4 Non-ST elevation (NSTEMI) myocardial infarction; I42.0 Dilated cardiomyopathy; I13.0 Hypertensive heart and chronic kidney disease with heart failure and stage 1 through stage 4 chronic kidney disease, or unspecified chronic kidney disease; I50.22 Chronic systolic (congestive) heart failure; E11.22 Type 2 diabetes mellitus with diabetic chronic kidney disease; N18.30 Chronic kidney disease, stage 3 unspecified; F32.A Depression, unspecified; E11.40 Type 2 diabetes mellitus with diabetic neuropathy, unspecified; K21.9 Gastro-esophageal reflux disease without esophagitis; I25.10 Atherosclerotic heart disease of native coronary artery without angina pectoris; E78.00 Pure hypercholesterolemia, unspecified; G47.33 Obstructive sleep apnea (adult) (pediatric); E87.6 Hypokalemia; Z79.4 Long term (current) use of insulin; E86.0 Dehydration; R11.2 Nausea with vomiting, unspecified; F41.9 Anxiety disorder, unspecified; R47.1 Dysarthria and anarthria; T38.3X5A Adverse effect of insulin and oral hypoglycemic [antidiabetic] drugs, initial encounter; Z79.82 Long term (current) use of aspirin; Z79.84 Long term (current) use of oral hypoglycemic drugs; Z79.891 Long term (current) use of opiate analgesic; Z79.899 Other long term (current) drug therapy; Z87.891 Personal history of nicotine dependence; Z95.810 Presence of automatic (implantable) cardiac defibrillator
CPT/HCPCS: 36415; 70450; 70496; 70498; 70551; 71045; 80053; 80061; 82962; 83036; 83690; 83735; 84443; 84484; 85025; 85610; 85730; 92523; 92610; 93005; 93306; 93458; 94668; 97162; 97166; 97802; 99152; 99153; 99285; J7030; J7040; Q9967; A4216; C1769; C1894; C8929; J2405

== ENCOUNTER → 2024-04-10 | Outpatient (CLI) | payer MEDICARE, SELFPAY ==
--- NOTE | 2024-04-10 08:49 | VDUE_ITS ---
Reason For Study: Left arm pain Left Proximal Left jugular vein is spontaneous, widely patent, phasic, with no intraluminal echogenicity noted. Left subclavian vein is spontaneous, widely patent, phasic, with no intraluminal echogenicity noted. Left Arm Left axillary vein is spontaneous, patent, phasic, competent, compressible and demonstrates augmentation. Left brachial vein is compressible. Left cephalic vein is compressible. Left basilic vein is compressible. Left Lower Arm Left radial vein is compressible. Left ulnar vein is compressible. Patient Safety Preliminary report faxed to Nav[facility]ORNER. VL/Venous Duplex US, Unilateral Interpretation Summary Deep veins of the left upper extremity are patent and compressible segmentally. There is no evidence of deep vein thrombosis. The superficial veins of the left upper extremity, the basilic and cephalic veins, are patent and compressible. There is no evidence of left upper extremit y superficial thrombophlebitis involving the veins imaged. Ordering Physician: Sarah Toth Referring Physician: Sarah Toth Performed By: Faustina Cobian RVT ???
== END | disposition home or self-care (01) ==
LOC: CVS 08:49
PROVIDERS: PCP Nurse Practitioner Family; Referring Provider Nurse Practitioner Family; Visit Provider Nurse Practitioner Family
DX: M79.622 Pain in left upper arm (principal)
CPT/HCPCS: 93971

== ENCOUNTER → 2024-07-02 | Outpatient (CLI) | payer MEDICARE, SELFPAY ==
[2024-07-02 12:57] LABS: Absolute Lymphocyte Count 2.23 X10^3/uL (0.83-4.51); Absolute Neutrophil Count 4.9 X10^3/uL (2.0-7.7); Basophil# 0.07 X10^3/uL; Basophil% 0.9 % (0-1); Eosinophil# 0.14 X10^3/uL; Eosinophils% 1.8 % (0-5); Hematocrit 42.2 % (37-47); Hemoglobin 13.5 g/dL (12.0-15.0); Lymphocyte # 2.23 X10^3/ul (0.83-4.51); Lymphocyte % 28.6 % (19-41); Mean Corpuscular Hgb 28.2 pg (27.0-32.0); Mean Corpuscular Volume 88.3 fL (81-99); Monocyte# 0.44 X10^3/uL; Monocyte% 5.6 % (0-10); NRBC Flagged by Analyzer 0 % (0-5); Neutrophil % 62.7 % (47-70); Platelet Count 279 K/mm3 (150-450); RBC Distribution Width CV 13.3 % (11.6-14.6); RBC Distribution Width SD 42.9 fl (35.1-43.9); Red Blood Count 4.78 M/mm3 (4.2-5.4); White Blood Count 7.8 K/mm3 (4.4-11.0)
[2024-07-02 13:11] LABS: Vitamin D,25 Hydroxy 36.4 ng/mL
[2024-07-02 14:00] LABS: ALB/GLOB Ratio 0.9 RATIO (0.9-2.4); AST(SGOT) 10 U/L (15-37); Alanine Aminotransfer ALT/SGPT 24 U/L (13-56); Albumin, Serum 3.2 g/dL (3.2-5.0); Alkaline Phosphatase 78 U/L (45-117); Anion Gap 8 (5-15); BUN 21 mg/dL (7-18); BUN/Creat Ratio 22.8 RATIO (10-20); Bilirubin, Direct 0.16 mg/dL (0.00-0.30); Calcium,Total 9.4 mg/dL (8.5-10.1); Chloride 103 mmol/L (98-107); Cholesterol 203 mg/dL (200); Creatinine, Serum 0.92 mg/dL (0.55-1.02); EST Glomerular Filtration Rate 64 mL/min (>60); Est Glom Filt Rate - Afr Amer 77 mL/min (>60); Globulin 3.6 g/dL (2.2-4.2); Glucose 154 mg/dL (74-106); High Density Lipoprotein 55 mg/dL; Potassium 4.2 mmol/L (3.5-5.1); Protein, Total 6.8 g/dL (6.4-8.2); Sodium Level 136 mmol/L (136-145); Triglycerides 189 mg/dL; Very Low Density Lipoprotein 38 mg/dL (5-40)
== END | disposition home or self-care (01) ==
LOC: VSLAB 12:07
PROVIDERS: PCP Nurse Practitioner Family; Referring Provider Nurse Practitioner Family; Visit Provider Nurse Practitioner Family
DX: E11.65 Type 2 diabetes mellitus with hyperglycemia (principal); E78.5 Hyperlipidemia, unspecified; I10 Essential (primary) hypertension; E55.9 Vitamin D deficiency, unspecified
CPT/HCPCS: 80053; 80061; 82043; 82248; 82306; 83036; 84443; 85025

== ENCOUNTER → 2024-10-22 | Outpatient (CLI) | payer MEDICARE, SELFPAY ==
[2024-10-22 12:47] LABS: Absolute Lymphocyte Count 2.07 X10^3/uL (0.83-4.51); Absolute Neutrophil Count 3.7 X10^3/uL (2.0-7.7); Basophil# 0.04 X10^3/uL; Basophil% 0.6 % (0-1); Eosinophil# 0.16 X10^3/uL; Eosinophils% 2.5 % (0-5); Hematocrit 40.7 % (37-47); Hemoglobin 13.5 g/dL (12.0-15.0); Lymphocyte # 2.07 X10^3/ul (0.83-4.51); Lymphocyte % 32.3 % (19-41); Mean Corp Hgb Conc 33.2 g/dL (32-36); Mean Corpuscular Hgb 28.8 pg (27.0-32.0); Mean Corpuscular Volume 86.8 fL (81-99); Mean Platelet Vol. 9.2 fl (6.2-12.0); Monocyte# 0.39 X10^3/uL; Monocyte% 6.1 % (0-10); NRBC Flagged by Analyzer 0 % (0-5); Neutrophil # 3.73 X10^3/uL (2.7-7.7); Neutrophil % 58.2 % (47-70); Platelet Count 274 K/mm3 (150-450); RBC Distribution Width CV 12.9 % (11.6-14.6); RBC Distribution Width SD 40.4 fl (35.1-43.9); Red Blood Count 4.69 M/mm3 (4.2-5.4); White Blood Count 6.4 K/mm3 (4.4-11.0)
[2024-10-22 13:22] LABS: Hemoglobin A1c 7.8 % (<=5.6)
[2024-10-22 13:26] LABS: Microalbumin,Random Urine 66.5 mg/L (NO RANGE EST.)
[2024-10-22 13:32] LABS: ALB/GLOB Ratio 1.4 RATIO (0.9-2.4); AST(SGOT) 16 U/L (<=31); Alanine Aminotransfer ALT/SGPT 14 U/L (<=34); Alkaline Phosphatase 86 U/L (35-104); Anion Gap 12 (5-15); BUN 28 mg/dL (4-19); BUN/Creat Ratio 25.2 RATIO (10-20); Calcium,Total 9.1 mg/dL (7.6-11.0); Carbon Dioxide 21.5 mmol/L (21.0-32.0); Chloride 102 mmol/L (98-108); Cholesterol 207 mg/dL (<=200); Creatinine, Serum 1.09 mg/dL (0.70-1.20); EST Glomerular Filtration Rate 54 (>60); Globulin 2.8 g/dL (2.2-4.2); Glucose 166 mg/dL (70-99); High Density Lipoprotein 53 mg/dL; Low Density Lipoprotein Calc. 119 mg/dL; Potassium 4.7 mmol/L (3.3-5.1); Protein, Total 6.8 g/dL (5.9-8.4); Sodium Level 135 mmol/L (133-145); Total Bilirubin 0.76 mg/dL (0.00-1.30); Triglycerides 178 mg/dL; Very Low Density Lipoprotein 36 mg/dL (5-40); Vitamin D,25 Hydroxy 31.5 ng/mL (30-100); cholesterol:hdl ratio screen 3.93
== END | disposition home or self-care (01) ==
LOC: VSLAB 11:33
PROVIDERS: PCP Nurse Practitioner Family; Visit Provider Nurse Practitioner Family
DX: E11.65 Type 2 diabetes mellitus with hyperglycemia (principal); E78.5 Hyperlipidemia, unspecified; E55.9 Vitamin D deficiency, unspecified; I10 Essential (primary) hypertension
CPT/HCPCS: 36415; 80053; 80061; 82043; 82306; 83036; 84443; 85025

== ENCOUNTER 2024-11-30 11:38 | Emergency (ER) | payer MEDICARE, SELFPAY ==
[2024-11-30 11:39] VITALS: BP 126/57; PULSE 60; RESP 18; TEMP 36.9; O2SAT 98; BMI 44.8
--- NOTE | 2024-11-30 11:51 | EKG12_ITS ---
Test Reason : SOB Blood Pressure : */* mmHG Vent. Rate : 60 BPM Atrial Rate : 60 BPM P-R Int : * ms QRS Dur : 164 ms QT Int : 486 ms P-R-T Axes : * -38 99 degrees QTcB Int : 486 ms AV dual-paced rhythm Biventricular pacemaker detected Abnormal ECG Confirmed by MARCELINA WU MD ([id number]), school photograph editor SMITH LOPEZ ([id number]) on 12/02/2024 6:45:36 AM Referred By: Confirmed By: MARCELINA WU MD
--- NOTE | 2024-11-30 11:52 | RAD_ITS ---
PROCEDURE: CHEST PA AND LATERAL 11/30/2024 REASON FOR EXAM: DYSPNEA, MCKEON, ORTHOPNEA, EDEMA, HISTORY OF CHF TECHNIQUE: CHEST PA AND LATERAL COMPARISON: Chest radiograph 02/17/2024. FINDINGS: Hardware: Stable left cardiac pacemaker. Heart: The heart size is normal. Mediastinum: There are atherosclerotic calcifications of the thoracic aorta. Lungs: No focal consolidation, pleural effusion or pneumothorax. Bones: Degenerative changes are identified within the thoracic spine. RAD/Chest PA and Lateral IMPRESSION: NO ACUTE FINDINGS. Reading Location: [id number]
--- NOTE | 2024-11-30 11:53 | ED.VIS.DYS ---
HPI History of Present Illness Chief Complaint: Shortness of Breath Detail of Chief Complaint: Dyspnea, MCKEON, orthopnea and edema Informant: patient Onset/Context/Timing Onset: Days (3 days prior to presentation) Context: sudden Timing: Continuous Quality: Positive for Dyspnea on exertion and Orthopnea (3 pillow); Negative for PND or Wheezing Current Severity: Mild Maximum Severity: Severe Worsened by: Exertion and Lying flat Relieved by: Nothing Associated Symptoms cough; Negative for rhinorrhea, post nasal drip, ear pain, fever, sore throat, subjective, chills, sweats, clear sputum, white sputum, yellow sputum or green sputum Chest Pain: Positive for None Narrative Narrative: Patient is a 69-year-old woman with history coronary disease status post myocardial infarction February of last year, type 2 diabetes, hypertension, hypercholesterolemia, former smoker, chronic kidney disease stage III and chronic systolic congestive heart failure who presents with dyspnea that started 3 days ago. She reports increased dyspnea with activity. She has difficulty going up or down steps. She now has 3 pillow orthopnea. She states she doubled her dose of Lasix with no improvement. She denies chest pressure, tightness or heaviness. She denies chest discomfort with activity. She denies fever, chills night sweats. She denies upper respiratory tract infectious symptoms. She denies GI symptoms. She denies symptoms. Review of prior records indicates she has history of obstructive sleep apnea as well. There is also history of dilated cardiomyopathy. Last visit to [employer] [facility] patient was seen by CHAPIN Tristan. Assessment was atherosclerotic heart disease of [place] coronary vessels without anginal practice, chronic. Patient also has a dilated cardiomyopathy, chronic systolic congestive heart failure, cardiac defibrillator in situ and pure hypercholesterolemia. Patient had cardiac catheterization February 18, 2024. She had nonobstructive coronary artery disease but with diffuse mild to moderate disease noted in the left anterior descending artery and Takotsubo cardiomyopathy. PE Risk Factors: Positive for - (Has had prior symptoms with exacerbation of CHF.); Negative for Cancer, OCP + Smoking + > 35, Prior DVT or PE, Recent immobilization, Recent surgery or Recent travel Prior similar symptoms: Yes Recent Illness/Hospitalization: No PFSH PFSH Medical History Essential hypertension Elevated troponin History of diabetes mellitus Hx of cardiomyopathy Dysarthria Medication reaction Intractable nausea and vomiting Dizziness Depression Near syncope Vertigo Carotid artery disease Pure hypercholesterolemia Atherosclerotic heart disease of [place] coronary artery without angina pectoris Nonrheumatic mitral (valve) insufficiency Dilated cardiomyopathy Chronic systolic (congestive) heart failure BALWINDER (acute kidney injury) Abnormal electrocardiogram Systolic CHF, acute Hypertension Hyperlipidemia Diabetes mellitus, type II NICOLLE (obstructive sleep apnea) Home Medications ?Medication ?Instructions ?Recorded ?Last Taken ?Type aspirin 81 mg tablet,delayed 81 mg PO DAILY@0800 HEALTH 01/26/17 11/29/24 History release MAINTENANCE magnesium chloride 71.5 mg 71.5 mg PO DAILY suppliment 07/23/20 11/30/24 History (magnesium chloride) tablet,delayed release (Slow-Mag) meclizine 25 mg tablet 25 mg PO TID PRN dizziness 07/23/20 11/30/24 History Handicap Parking Placard #1 ea 05/09/22 Unknown Rx cyclobenzaprine 10 mg tablet 10 mg PO TID PRN Muscle Spasm 04/16/24 11/30/24 History gabapentin 300 mg capsule 300 mg PO DAILY NERVE PAIN 10/23/24 11/30/24 History Humalog KwikPen Insulin 100 15 unit (0.15 mL) subcut TID #54 mL 10/31/24 11/30/24 Rx unit/mL subcutaneous (insulin lispro) sacubitril 97 mg-valsartan 103 mg 1 tab PO BID HF #180 tabs 11/04/24 11/30/24 Rx tablet (Entresto) furosemide 20 mg tablet 20 mg PO QDAY water pill #90 tabs 11/17/24 11/30/24 Rx tirzepatide 2.5 mg/0.5 mL 2.5 mg (0.5 mL) subcut QWEEK #2 mL 11/27/24 11/26/24 Rx subcutaneous pen injector (Mounjaro) amlodipine 10 mg tablet 10 mg PO DAILY 11/30/24 11/30/24 History carvedilol 25 mg tablet 25 mg PO DAILY 11/30/24 11/30/24 History cholecalciferol (vitamin D3) 1,250 1,250 mcg PO QWEEK 11/30/24 11/23/24 History mcg (50,000 unit) capsule dapagliflozin propanediol 10 mg 10 mg PO DAILY 11/30/24 11/30/24 History tablet (Farxiga) fluoxetine 40 mg capsule 40 mg PO DAILY 11/30/24 11/30/24 History gabapentin 300 mg capsule 600 mg PO QHS 11/30/24 11/29/24 History insulin degludec 100 unit/mL (3 18 unit subcut Q24H diabetes 11/30/24 11/30/24 History mL) subcutaneous pen (Tresiba FlexTouch U-100 insulin) Allergy/AdvReac Type Severity Reaction Status Date / Time red dye Allergy Hives Verified 11/30/24 11:39 Litzxkr-MMP-FfM Reductase AdvReac Severe Myalgias Verified 11/30/24 11:39 Inhibitor (Wqbnilm-Omr-Uua Reductase Inhibitor) semaglutide (From Ozempic) AdvReac Vomiting Verified 11/30/24 11:39 Family History Father , Lung cancer Lung cancer Mother , Breast cancer Breast cancer Brother Cancer lymphoma Surgical History History of eye surgery History of left heart catheterization (LHC) (~05/26/15) Status post foot surgery Status post breast reduction S/P hysterectomy History of bilateral breast reduction surgery History of bilateral foot surgery History of hysterectomy Cardiac defibrillator in situ Social History household members: spouse Smoking Status: Former smoker quit date: 06/11/06 alcohol intake: never substance use type: does not use caffeine: No what type of physical activity do you participate in: none seatbelt use: always do you feel safe at home: Yes ROS ROS ED Constitutional Constitutional ED: Denies chills, fever(s), sweats or weight loss Eyes Eyes: Denies blurry vision or change in vision ENT ENT ED: Denies ear pain, rhinorrhea or sore throat Cardiovascular Cardiovascular: Reports orthopnea; Denies chest pain, palpitations, paroxysmal nocturnal dyspnea or racing heartbeat Respiratory/Chest Respiratory/Chest: Reports cough, dyspnea, dyspnea on exertion and orthopnea; Denies paroxysmal nocturnal dyspnea or sputum Gastrointestinal Gastrointestinal: Denies abdominal pain, nausea or vomiting Genitourinary Genitourinary ED: Denies dysuria, hematuria or urinary frequency Musculoskeletal Musculoskeletal: Denies arthralgias or myalgias Integumentary Denies rash Neurologic Neurologic: Reports weakness Hematologic/Lymphatic Hematologic/Lymphatic: Denies easy bleeding or easy bruising EXAM Physical Exam Const Vital Signs: 11/30/24 11:39 11/30/24 12:22 11/30/24 12:38 Temperature 98.5 F Temperature Source Oral Pulse Rate 60 60 Respiratory Rate 18 18 Respiratory Effort Normal Non-Labored Respiratory Depth Normal Respiratory Pattern Normal Blood Pressure 126/57 H 106/57 L Blood Pressure Mean 80 73 Pulse Ox 98 97 Oxygen Delivery Method Room Air Room Air Room Air 11/30/24 13:51 11/30/24 14:20 Temperature Temperature Source Pulse Rate 65 60 Respiratory Rate 18 18 Respiratory Effort Respiratory Depth Respiratory Pattern Blood Pressure 112/78 134/78 H Blood Pressure Mean 89 96 Pulse Ox 98 98 Oxygen Delivery Method Room Air Room Air Positive well nourished and well developed Constitutional Narrative: BMI is 44.8. General Appearance ED: well developed; Negative for pallor HEENT Reports moist mucous membranes HEENT Narrative: Head is atraumatic and normocephalic. Ears normal. Nares patent. Eyes PERRL and EOMs intact bilaterally General Eye ED: Negative for pale conjunctiva or scleral icterus Neck no lymphadenopathy, supple, no meningeal signs and no JVD Neck Narrative: Difficult assess for JVD based on body habitus. Resp normal respiratory effort and clear to auscultation bilaterally Cardio regular rate, regular rhythm, S1 normal heart sound, S2 normal heart sound and no murmurs GI non-tender, non-distended and no masses Auscultation: normoactive bowel sounds Palpation: soft Extremity normal to inspection Extremity Narrative: Pitting edema approximately 2 mm bilaterally. The edema does not past the knees. General Extremety ED: Yes edema General Extremity: edema Neuro oriented x3, CN's II-XII intact bilaterally and no sensory deficits noted Renetta Coma Scale: document GCS findings Spontaneous Obeys Commands Oriented 15 Sensorium / Orientation: alert Psych mental status grossly normal Skin no wounds and skin turgor normal General Skin Exam: Negative for jaundice or pallor Lesions: no lesions Rashes: no rashes MDM MDM MDM Narrative Medical decision making narrative: Concern patient has exacerbation of CHF. Need to determine if this is due to her dilated cardiomyopathy with reduced EF versus cardiac ischemia versus other cause. Workup included EKG, chest x-ray appropriate blood work which included CBC to assess H&H, electrolyte panel to assess electrolytes and renal function as well as glucose and she is diabetic and BNP and troponin. Prior office visits and hospital visits were reviewed and documented in the HPI. History & Record Review Additional record(s) reviewed:: Prior inpatient record, Prior outpatient record, Prior ED visit and Prior labs Lab Data Attestation: I reviewed the patient's lab results. Lab results narrative: CBC is normal. Electrolyte panel was an elevated BUN and creatinine of 28 and 1.33. Most recent creatinine was 1.09 on 10/22/2024. First troponin normal. BNP normal. Labs: Laboratory Results - last 24 hr 11/30/24 11/30/24 12:15 14:15 WBC 6.4 RBC 4.61 Hgb 13.4 Hct 40.0 MCV 86.8 MCH 29.1 MCHC 33.5 RDW Std Deviation 40.4 RDW Coeff of Ivet 12.9 Plt Count 280 MPV 9.2 Immature Gran % (Auto) 0.300 Neut % (Auto) 56.9 Lymph % (Auto) 34.7 [place] % (Auto) 5.3 Eos % (Auto) 2.2 Baso % (Auto) 0.6 Absolute Neuts (auto) 3.6 Absolute Lymphs (auto) 2.21 Nucleated RBC % 0 Sodium 134 Potassium 4.3 Chloride 97 L Carbon Dioxide 23.7 Anion Gap 13 BUN 28 H Creatinine 1.33 H Estim Creat Clear Calc 49.10 L Est GFR (MDRD) Non-Af 43 L BUN/Creatinine Ratio 21.4 H Glucose 262 H Calcium 9.0 Troponin T High Sens 14 Troponin T Hi Sens 2 Hr 15 H NT pro BNP II 172 Second troponin is 15 which is above normal with a delta of 1. Patient's symptoms not consistent with cardiac ischemia. She does have history of sleep apnea. She has not been using her BiPAP machine. She has been sitting a lot. Suspect her lower extremity edema is due to dependent edema. Patient has not made much urine since receiving Lasix. [id number] patient is if anything is slightly on the dry side with an elevated and her BUN and creatinine compared to baseline. Patient was informed follow-up with Dr. Marcum. Recommended getting up to walk more. She states she has disc problem at L5-S1. Patient was told she needs to walk. She also needs to elevate her legs and she was informed what this meant and recommended compressive hose. Radiography Diagnostic Testing: Clinical Impression(s) from Imaging Studies Chest X-Ray 11/30/24 11:52 IMPRESSION: NO ACUTE FINDINGS. Reading Location: [facility] EKG Initial EKG: Attestation: I personally reviewed and interpreted this EKG as follows: Interpretation: Paced (80 dual pacemaker rate is 60. QRS duration 164 ms. QT duration 486 ms.) Treatment and Re-Evaluation :: When patient was reassessed at 1451 she was resting comfortably. She appeared in no distress. Discharge Plan Triage Chief Complaint: Shortness of Breath ED Provider: Juventino Kern Dx/Rx/DC Orders Clinical Impression: Exertional dyspnea, NICOLLE (obstructive sleep apnea), Chronic systolic (congestive) heart failure, Diabetes mellitus, type II, Essential hypertension, Orthopnea, Lymphedema, Adult BMI 40.0-44.9 kg/sq m Instructions: ED Dyspnea, ED Peripheral Edema, Bilateral Prescriptions: No Action meclizine 25 mg tablet 25 mg PO TID PRN (Reason: dizziness) Slow-Mag 71.5 mg tablet,delayed release (DR/EC) 71.5 mg PO DAILY cyclobenzaprine 10 mg tablet 10 mg PO TID PRN (Reason: Muscle Spasm) Entresto 97-103 mg tablet 1 tab PO BID Qty: 180 3RF gabapentin 300 mg capsule 300 mg PO DAILY Patient Comments: nerve pain Rx Instructions: AM aspirin 81 MG tablet 81 mg PO DAILY@0800 Patient Comments: [facility] amlodipine 10 mg tablet 10 mg PO DAILY cholecalciferol (vitamin D3) 1,250 mcg (50,000 unit) capsule 1,250 mcg PO QWEEK dapagliflozin propanediol [Farxiga] 10 mg tablet 10 mg PO DAILY fluoxetine 40 mg capsule 40 mg PO DAILY gabapentin 300 mg capsule 600 mg PO QHS carvedilol 25 mg tablet 25 mg PO DAILY Rx Instructions: must administer with a meal/food insulin degludec [Tresiba FlexTouch U-100] 100 unit/mL (3 mL) insulin pen 18 unit subcut Q24H (DME) Handicap Parking Placard See Rx Instructions .Route .MEDSUPPLY Qty: 1 0RF Rx Instructions: As directed insulin lispro [Humalog KwikPen Insulin] 100 unit/mL insulin pen 15 unit subcut TID Qty: 54 2RF furosemide 20 mg tablet 20 mg PO QDAY Qty: 90 3RF Mounjaro 2.5 mg/0.5 mL pen injector 2.5 mg subcut QWEEK Qty: 2 3RF Primary Care Provider: Sarah Toth Referrals: Sarah Toth, [employer] [Primary Care Provider] - 3-5 Days Activity Restrictions/Additional Instructions: 1. You need to walk more 2. When you are sitting you need to elevate your toes above your nose 3. Recommend contacting Dr. Marcum's office for follow-up 4. Recommend purchasing compressive hose at the pharmacy. Print Language: Ethiopian Disposition Disposition: Home, Self Care
--- OUTSIDE RECORDS SUMMARY | 2024-11-30 12:10 | XMS RPT_ITS | CCD ---
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 Name Role Phone Kenna BARRIOS, Kaye Hernadez Unavailable [phone] Rivera, Aaliyah Unavailable Unavailable Rivera, Aaliyah Unavailable Unavailable Rivera, Aaliyah Unavailable Unavailable VITEBSKIY, NAHOMY Referring Unavailable [facility] Primary Care Unavailable VITEBSKIY, NAHOMY Referring Unavailable [facility] Primary Care Unavailable VITEBSKIY, NAHOMY Referring Unavailable [facility] Primary Care Unavailable VITEBSKIY, NAHOMY Referring Unavailable [facility] Primary Care Unavailable VITEBSKIY, NAHOMY Referring Unavailable [facility] Primary Care Unavailable VITEBSKIY, NAHOMY Referring Unavailable [facility] Primary Care Unavailable VITEBSKIY, NAHOMY Attending Unavailable [facility] Referring Unavailable [facility] Primary Care Unavailable Rivera, Aaliyah Unavailable Unavailable Ovi Olivares MD Unavailable [phone] Shante Dudley Primary Care Provider Hunter FALLON Kristen (Historical) Unavailable [facility] Primary Care Pro vider [facility], [facility] Referring Provid er EVENS rBidges Attending Provider Dr. Nathanael Corrales Attending Provider Bert SNIDER, STONE DERRICKMAN [employer] RIGGER-C Lico Attending Provider Rachel Field Attending Provider Unavailable Navneet SNIDER, STONE DERRICKMAN [employer] RIGGER-C Sarah Primary Care Provider Ovi Olivares MD Unavailable [phone] Shante Dudley Primary Care Provider Hunter FALLON Kristen (Historical) Unavailable [facility], [facility] Primary Care Pro vider [facility], [facility] Referring Provid er EVENS Bridges Attending Provider EVENS Noel NP Attending Provider [facility], [facility] Primary Care Pro vider [facility], [facility] Referring Provid er EVENS Noel NP Attending Provider EVENS Bridges Attending Provider Swihart, Shante L Primary Care Provider SWIHART, SHANTE L Primary Care Unavailable QUINTANA, HONORIO D Referring Unavailable SWIHART, SHANTE L Primary Care Unavailable QUINTANA, HONORIO D Referring Unavailable SWIHART, SHANTE L Primary Care Unavailable QUINTANAFREDDYUN D Attending Unavailable SWIHART, SHANTE L Primary Care Unavailable DENNY FLANAGAN Attending Unavailable SWIHART, SHANTE L Primary Care Unavailable QUINTANA, HONORIO D Referring Unavailable SWIHART, SHANTE L Primary Care Unavailable QUINTANA, HONORIO D Referring Unavailable QUINTANAFREDDYUN Walter Attending Unavailable SWIHART, SHANTE L Primary Care Unavailable QUINTANA, HONORIO D Referring Unavailable SWIHART, SHANTE L Primary Care Unavailable QUINTANA, HONORIO D Referring Unavailable QUINTANA, HONORIO D Attending Unavailable Navneet ST[employer]ICKMAN [employer] RIGGER-C, Sarah Primary Care Provider Navneet [employer] RIGGER-C, Sarah Attending Provider Navneet [employer]GER-C, Sarah Referring Provider Kaye Willoughby Attending Provider [phone] Dr. Misbah Marcum MD Attending Provider [phone] Dr. Misbah Marcum MD Referring Provider [phone] Lavonne Mccollum Attending Provider Navneet VSC, Sarah Primary Care Unavailabl e Navneet VSC, Sarah Referring Unavailabl e Misbah Marcum Attending Unavailable Navneet VSC, Sarah Primary Care Unavailabl e Navneet VSC, Sarah Referring Unavailabl e Misbah Marcum Attending Unavailable Lavonne Bridges Attending Unavailable Navneet VSC, Sarah Primary Care Unavailabl e Navneet VSC, Sarah Referring Unavailabl e Navneet VSC, Sarah Primary Care Unavailabl e Misbah aMrcum Attending Unavailable Jossue, Misbah Referring Unavailable Navneet VSC, Sarah Attending Unavailabl e Navneet VSC, Sarah Primary Care Unavailabl e Navneet VSC, Sarah Primary Care Unavailabl e Navneet VSC, Sarah Attending Unavailabl e Navneet VSC, Sarah Referring Unavailabl e Navneet VSC, Sarah Attending Unavailabl e Navneet VSC, Sarah Primary Care Unavailabl e Navneet VSC, Sarah Attending Unavailabl e Navneet VSC, Sarah Primary Care Unavailabl e Navneet VSC, Sarah Referring Unavailabl e Taty Velasquez Admitting Unavailable Navneet VSC, [facility] Primary Care Unavailabl e José Antonio Emerson Attending Unavailable Cesar Parekh Consulting Unavailable Adenarda, Merlyn Consulting Unavailable Hinduchelsea, Annita Consulting Unavailable Selwyn Samra Consulting Unavailable Monica, Maude Consulting Unavailable AnthonyFerdinand leonard Consulting Unavailable Ronen, Tati Consulting Unavailable BitSunny santo Consulting Unavailable Keila Chacon Consulting Unavailable Arturo Fuller Consulting Unavailable Sherley Rodriguez Consulting Unavailable Shaka Lerner Consulting Unavailable Mary Zuñiga Consulting Unavailable Serjio Nice Consulting Unavailable Isabela Alaniz Consulting UnavailDwight Oliva Consulting Unavailable Joleen Spangler Consulting Unavailable Modesto Clements Consulting Unavailable Zaria Esteban Consulting Unavailable Rand Chamberlain Consulting Unavailable Jossue, Sullivan Consulting Unavailable Taty Velasquez Consulting Unavailable Lico Noel NP Attending [facility] Referring [facility]available [facility] Primary Care Unavailable Navneet VSC, Sarah Primary Care Unavailabl e Navneet VSC, Sarah Referring Unavailabl e Kaye Willoughby Attending Unavail able Navneet VSC, Sarah Primary Care Unavailabl e Navneet VSC, Sarah Referring Unavailabl Lico Chicas NP Attending Unavailable [facility] Referring Unavailable [facility] Primary Care Unavailable Jossue, Misbah Attending Unavailable Navneet VSC, Sarah Primary Care Unavailabl e Jossue, Sullivan Attending Unavailable Wewahitchka, Cesar Consulting Unavailable White, Taty L Admitting Unavailable [facility], [facility] Primary Care Unavailabl e José Antonio Emerson Attending Unavailable Adeli, Amir Consulting Unavailable Hinduja, Annita Consulting Unavailable Selwyn, Samra Consulting Unavailable Zha, Maude Consulting Unavailable Anthony, Ferdinand Consulting Unavailable Ronen, Tati Consulting Unavailable Bittar, Sunny Consulting Unavailable Keila Chacon Consulting Unavailable Jonny Arturo Consulting Unavailable Sherley Rordiguez Consulting Unavailable Shaka Lerner Consulting Unavailable Yogesh, Mary Consulting Unavailable Ridha, Mohamed Consulting Unavailable Zaghlouleh, Mhd Ant Consulting UnavailDwight Oliva Consulting Unavailable Spangler, Rami Consulting Unavailable Tyree, Modesto Consulting Unavailable Carlito, Zaria Consulting Unavailable Hannawi, Yousef Consulting Unavailable Jossue, Misbah Consulting Unavailable White, Taty L Consulting Unavailable Darioky, José Antonio Consulting Unavailable Cesar Parekh Consulting Unavailable White, Taty L Admitting Unavailable White, Taty L Attending Unavailable [facility], [facility] Primary Care Unavailabl e Adeli, Amir Consulting Unavailable Hinduja, Annita Consulting Unavailable Selwyn, Samra Consulting Unavailable Zha, Maude Consulting Unavailable Anthony, Ferdinand Consulting Unavailable Ronen, Tati Consulting Unavailable Bittar, Sunny Consulting Unavailable Oswaldo, Keila Consulting Unavailable Jonny, Arturo Consulting Unavailable Lavell Rodriguezt Consulting Unavailable Shaka Lerner Consulting Unavailable Yogesh, Mary Consulting Unavailable Ridha, Mohamed Consulting Unavailable Zaghlouleh, Mhd Ant Consulting UnavailDwight Oliva Consulting Unavailable Spangler, Rami Consulting Unavailable Tyree, Modesto Consulting Unavailable Carlito, Zaria Consulting Unavailable Hannawi, Yousef Consulting Unavailable Jossue, Sullivan Consulting Unavailable White, Taty L Consulting Unavailable Jossue, Sullivan Attending Unavailable [facility], [facility] Primary Care Unavailabl e Jossue, Sullivan Attending Unavailable Jossue, Misbah Referring Unavailable [facility], [facility] Primary Care Unavailabl e Jossue, Misbah Attending Unavailable [facility], [facility] Primary Care Unavailabl e Jossue, Sullivan Attending Unavailable Jossue, Sullivan Referring Unavailable [facility], [facility] Primary Care Unavailabl e Jossue, Sullivan Attending Unavailable Jossue, Misbah Referring Unavailable Lavonne Bridges Attending Unavailable [facility], [facility] Primary Care Unavailabl e [facility], [facility] Primary Care [facility] Misbah Marcum Attending Unavailable Lavonne Bridges Attending Unavailable [facility], [facility] Referring [facility] Primary Care [facility], Genie Chambers Referring Unavailable [facility], [facility] Primary Care UnavailLavonne Forbes Attending Unavailable Allergies Allergy Classification Reported Allergen(s) Allergy Type Date of Onset Reaction(s) Facility (19 sources) Contrast media; Translations: [RED DYE] drug allergy 5 Unknown [facility] Work Phone: (5 sources) Hmg-Coa Reductase Inhibitors (Statins) drug allergy 6 mylagias [facility] Work Phone: (5 sources) Hmg-Coa Reductase Inhibitors (Statins); Translations: [[id number] REDUCTASE INHIBITORS] Propensity to adverse reactions (disorder) 8 Myalgia [facility] Repository (8 sources) Mwuminy-Zqy-Njn Reductase Inhibitor Propensity to adverse reactions 2 Myalgias [facility] (2 sources) semaglutide Drug Allergy 5 Vomiting [facility] (1 source) Xeiiknt-Asq-Zix Reductase Inhibitor Drug allergy (disorder) 5 [facility] Repository (1 source) semaglutide Drug allergy (disorder) 5 [facility] Repository Medications Current Medications Medication Drug Class(es) Dates Sig (Normalized) Sig (Original) aspirin 81 mg delayed release oral tablet (20 sources) Nonsteroidal Anti-inflammatory Drug Start: 06-10-2015 take 1 tablet by mouth once daily ASPIRIN 81 MG TABS One tablet by mouth daily ASPIRIN [id number] Kaye Burris PA-C Start: 06-10-2015 take 1 tablet by margaert th once daily ASPIRIN 81 MG TABS One tablet by mouth daily ASPIRIN [id number] Kaye Burris PA-C Start: 05-27-2015 End: 01-26-2017 take 1 tablet by mouth once daily Aspirin 81 MG tablet Active 81 mg PO DAILY@0800 January 26, 2017 2:58pm Comment on above: Take 81 mg by mouth once daily. benoxinate hydrochloride 4 mg/ml / fluorescein sodium 3 mg/ml ophthalmic solution (2 sources) Diagnostic Dye Start: 4 End: 4 fluorescein-benoxin ate 0.3-0.4 % 1 Drop (FLURESS) busPIRone hydrochloride 7.5 mg oral tablet (2 sources) Start: 4 take 1 tablet by mouth twice daily Buspirone 7.5 mg tablet Active 7.5 mg PO TWICE A DAY March 13, 2024 12:00am cetirizine hydrochloride 10 mg oral tablet (19 sources) Histamine-1 Receptor Antagonist Start: take 1 tablet by mouth once daily as needed Cetirizine (Zyrtec) 10 mg tablet Active 10 mg PO DAILY as needed for Allergies July 23, 2020 2:05pm Start: 11-01-2018 End: 07-23-2020 take 5 mg by mouth once daily as needed Cetirizine (Zyrtec) 10 mg tablet Discontinued 5 mg PO DAILY as needed for Allergies November 01, 2018 12:00am July 23, 2020 2:11pm Comment on above: Take 10 mg by mouth once daily. cholecalciferol 1.25 mg oral capsule (14 sources) Vitamin D Start: 08-16-2020 take 1 capsule by mouth every week cholecalciferol, Vitamin D3, (VITAMIN D3) 1,250 mcg (50,000 unit) cap capsule Take 1 capsule by mouth one time a week. 0 08/16/2020 Active Start: 01-26-2017 Cholecalcifero l (Vitamin D3) 2,000 UNIT capsule Active 2000 U PO PAYNE January 26, 2017 12:00am Cholecalciferol, Vitamin D3, (VITAMIN D) 1,000 unit cap Take 5,000 Units by mouth once daily. 0 Active Comment on above: Take 5,000 Units by mouth once daily. Take 1 capsule by mo [facility] one time a week. CPAP (3 sources) CPAP cyclobenzaprine hydrochloride 10 mg oral tablet (19 sources) Muscle Relaxant Start: 09-26-19 take 1 tablet by mouth twice daily as needed for pain cyclobenzaprine (FLEXERIL) 10 mg tablet TAKE 1 TABLET BY MOUTH TWICE DAILY NEEDED FOR MUSCLE PAIN 0 09/26/2023 Active Start: 09-13-2023 End: 04-16-2024 take 5 mg by mouth three times daily as needed for muscle spasms Cyclobenzaprine 10 mg tablet Active 5 mg PO THREE TIMES A DAY as needed for Muscle Spasm April 16, 2024 2:33pm Start: 09-13-2023 take 5 mg by mouth t hree times daily Cyclobenzaprine Active 5 MG PO THREE TIMES A DAY September 13, 2023 12:00am Start: 07-13-2017 End: 10-01-2017 take 1 tablet by mouth three times daily as needed for muscle spasms Cyclobenzaprine 10 mg tablet Discontinued 10 mg PO THREE TIMES A DAY as needed for Muscle Spasm July 13, 2017 1:00am October 01, 2017 10:26am Start: 01-26-2016 CYCLOBENZAPRIN E HCL 10 MG TABS As needed CYCLOBENZAPRINE HCL [id number] Kaye Pierson RN diphenhydrAMINE hydrochloride 25 mg / naproxen sodium 220 mg oral tablet (3 sources) Histamine-1 Receptor Antagonist, Nonsteroidal Anti-inflammatory Drug naproxen-diphenhy dramine (ALEVE PM) 220-25 mg tab Take by mouth. 0 Active Comment on above: Take by mouth. ezetimibe 10 mg oral tablet (14 sources) Dietary Cholesterol Absorption Inhibitor Star t: 01-09 End: 01-10 take 1 tablet by mouth once daily Ezetimibe (Zetia) 10 mg tablet Active 10 mg PO DAILY February 01, 2023 9:37am gabapentin 300 mg oral capsule (20 sources) Anti-epileptic Agent Star t: 10-09 take 1 capsule by mouth three times daily Gabapentin 300 mg capsule Active 300 mg PO THREE TIMES A DAY October 23, 2024 1:58pm Start: 01-12-2016 take 600 mg by mouth at bedtim e Gabapentin Active 600 MG PO AT BEDTIME January 12, 2016 12:00am Start: 10-22-2015 End: 10-23-2024 take 2 capsules by mouth at bedtime Gabapentin 300 MG capsule Discontinued 600 mg PO AT BEDTIME January 12, 2016 12:00am October 23, 2024 2:00pm Start: 10-22-2015 take 1 tablet by margaret th once daily at bedtime GABAPENTIN 300 MG CAPS One tablet by mouth daily at bedtime GABAPENTIN [id number] Kristen Sandy RN Comment on above: Take 300 mg by mouth once daily. 3 ml insulin degludec 100 unt/ml pen injector (3 sources) Insulin Analog Start: inject 15 [IU] by subcutaneous injection once daily TRESIBA FLEXTOUCH U-100 100 unit/mL (3 mL) injection pen INJECT 15 UNITS SUBCUTANEOUSLY ONCE DAILY 0 10/21/2023 Active Start: 10-04-2023 End: 12-31-2023 Insulin Degludec (Tresiba Fl extouch U-100) 100 unit/mL (3 mL) insulin pen Discontinued 15 U SC DAILY October 04, 2023 12:00am December 31, 2023 10:42am Insulin Degludec (Tresiba Flextouch U-100) 100 unit/mL (3 mL) insulin pen (6 sources) Start: 04-21-2024 Insulin Deglud ec (Tresiba Flextouch U-100) 100 unit/mL (3 mL) insulin pen Active 18 U SC .hs 16.2 April 21, 2024 9:11am Start: 02-18-2024 End: 04-21-2024 Insulin Degludec (Tresiba Fl extouch U-100) 100 unit/mL (3 mL) insulin pen Discontinued 18 U SC . February 18, 2024 12:00am April 21, 2024 9:12am Start: 12-31-2023 End: 02-18-2024 Insulin Degludec (Tresiba Fl extouch U-100) 100 unit/mL (3 mL) insulin pen Discontinued 14 U SC DAILY December 31, 2023 10:41am February 18, 2024 12:57pm insulin detemir (20 sources) Insulin Analogue Start: 07-02-2023 Insulin Detem ir U-100 Active 30 UNIT SC .morning July 02, 2023 11:12am Start: 07-02-2023 Insulin Detemi r U-100 Active 30 UNIT SC .morning July 02, 2023 10:12am Start: 02-01-2023 End: 07-02-2023 Insulin Detemir U-100 Discon tinued 50 UNIT SC .morning February 01, 2023 9:34am July 02, 2023 11:12am Start: 02-01-2023 End: 07-02-2023 Insulin Detemir U-100 Discon tinued 50 UNIT SC .morning February 01, 2023 8:34am July 02, 2023 10:12am Start: 02-01-2023 Insulin Detemi r U-100 Active 50 UNIT SC .morning February 01, 2023 9:34am Start: 01-12-2022 End: 12-28-2022 Insulin Detemir U-100 100 un it/mL (3 mL) insulin pen Discontinued 60 U SC WITH BREAKFAST January 12, 2022 4:25pm December 28, 2022 9:16am Start: 08-17-2020 End: 01-12-2022 inject 45 [IU] by subcutaneous injection at dinner Insulin Detemir U-100 100 UNIT/ML insulin pen Discontinued 45 U SQ WITH DINNER August 17, 2020 1:00am January 12, 2022 4:28pm Start: 07-23-2020 End: 02-01-2023 Insulin Detemir U-100 100 un it/mL (3 mL) insulin pen Discontinued 50 U SC WITH DINNER January 12, 2022 4:25pm February 01, 2023 9:36am Start: 10-27-2019 End: 07-23-2020 Insulin Detemir U-100 100 UN ITS/ML insulin pen Discontinued 40 U SC TWICE A DAY October 27, 2019 12:00am July 23, 2020 2:11pm Start: 10-27-2019 End: 07-23-2020 Insulin Detemir U-100 Discon tinued 40 UNITS SC TWICE A DAY October 27, 2019 12:00am July 23, 2020 2:11pm Start: 03-20-2018 End: 11-01-2018 Insulin Detemir U-100 100 UN ITS/ML insulin pen Discontinued 30 U SC DAILY March 20, 2018 12:00am November 01, 2018 9:40am Start: 03-20-2018 End: 11-01-2018 Insulin Detemir U-100 Discon tinued 30 UNITS SC DAILY March 20, 2018 12:00am November 01, 2018 9:40am Start: 01-12-2016 End: 10-01-2017 Insulin Detemir U-100 100 UN ITS/ML insulin pen Discontinued 38 U SC TWICE A DAY January 12, 2016 5:03pm October 01, 2017 10:29am Start: 01-12-2016 End: 10-01-2017 Insulin Detemir U-100 Discon tinued 38 UNITS SC TWICE A DAY January 12, 2016 5:03pm October 01, 2017 10:29am Start: 10-25-2015 LEVEMIR FLEXTO UCH 100 unit/mL (3 mL) inpn injection Inject 38 Units subcutaneously twice daily. 60u in AM and 55u in PM 0 10/25/2015 Active Start: 10-22-2015 LEVEMIR 100 UN IT/ML SOLN Take as directed INSULIN DETEMIR [id number] Stewart Boggs MD Start: 10-22-2015 LEVEMIR 100 UN IT/ML SOLN Take as directed INSULIN DETEMIR [id number] Stewart Boggs MD Start: 10-22-2015 LEVEMIR 100 UN IT/ML SOLN Take as directed INSULIN DETEMIR [id number] Stewart Boggs MD Start: 10-22-2015 LEVEMIR 100 UN IT/ML SOLN Take as directed INSULIN DETEMIR [id number] Stewart Boggs MD Start: 05-27-2015 End: 01-12-2016 Insulin Detemir U-100 (Levem ir Flextouch U100 Insulin) 100 UNITS/ML Insuln.Pen Discontinued 32 U SC TWICE A DAY May 27, 2015 1:00am January 12, 2016 5:03pm Start: 05-27-2015 End: 01-12-2016 Insulin Detemir U-100 (Levem ir Flextouch U-100 Insuln) 100 UNITS/ML Insuln.Pen Discontinued 32 UNITS SC TWICE A DAY May 27, 2015 1:00am January 12, 2016 5:03pm Comment on above: Inject 38 Units subc utaneously twice daily. 60u in AM and 55u in PM 3 ml insulin aspart, human 100 unt/ml pen injector (20 sources) Insulin Analogue Start: 04-21-2024 End: 08-25-2024 Insulin Aspart U-100 (Novolog Flexpen U-100 Insulin) 100 unit/mL (3 mL) insulin pen Active 15 U SC THREE TIMES A DAY 40.5 August 25, 2024 7:51am Start: 02-18-2024 End: 04-21-2024 Insulin Aspart U-100 (Novolo g Flexpen U-100 Insulin) 100 unit/mL (3 mL) insulin pen Discontinued 9 U SC .breakfast and lunch February 18, 2024 12:00am April 21, 2024 9:12am Start: 12-31-2023 inject 12 [IU] by payne bcutaneous injection before dinner Insulin Aspart U-100 100 unit/mL (3 mL) insulin pen Active 12 U SC 1700 December 31, 2023 10:40am 12 units subcutaneously before dinner meal Start: 10-21-2023 NOVOLOG FLEXPE N U-100 INSULIN 100 unit/mL (3 mL) INJECT 12 UNITS SUBCUTANEOUSLY THREE TIMES DAILY 0 10/21/2023 Active Start: 10-04-2023 End: 02-18-2024 Insulin Aspart U-100 (Novolo g Flexpen U-100 Insulin) 100 unit/mL (3 mL) insulin pen Discontinued 12 U SC THREE TIMES A DAY 30 October 04, 2023 12:00am February 18, 2024 12:57pm Start: 12-28-2022 End: 12-31-2023 Insulin Aspart U-100 100 uni t/mL (3 mL) insulin pen Discontinued 2 U SC .COMPLEX July 02, 2023 11:12am December 31, 2023 10:42am 8u before meals Start: 01-12-2022 End: 12-28-2022 Insulin Aspart U-100 100 uni t/mL (3 mL) insulin pen Discontinued 2 U SC .COMPLEX January 12, 2022 4:26pm December 28, 2022 9:17am 2 units subcutaneously 8 units in AM, 10 units lunch, 12 dinner; Start: 10-26-2019 End: 01-12-2022 Insulin Aspart U-100 100 uni t/mL (3 mL) insulin pen Discontinued 2 U SC .COMPLEX July 23, 2020 2:09pm January 12, 2022 4:28pm 2 in AM, 3 in afternoon, 4 in pm Start: 10-26-2019 End: 07-23-2020 Insulin Aspart U-100 100 UNI TS/ML insulin pen Discontinued 2 U SC .COMPLEX October 26, 2019 12:00am July 23, 2020 2:11pm 2 in AM, 3 in afternoon, 4 in pm Start: 06-10-2015 NOVOLOG FLEXPE N 100 UNIT/ML SOLN as directed INSULIN ASPART Kaye Burris PA-C Start: 06-10-2015 NOVOLOG FLEXPE N 100 UNIT/ML SOLN as directed INSULIN ASPART Kaye Burris PA-C Start: 05-27-2015 End: 01-12-2016 Insulin Aspart U-100 (Novolo g Flexpen U-100 Insulin) 100 UNITS/ML Flexpen Discontinued 15 U SC THREE TIMES DAILY BEFORE MEALS May 27, 2015 1:00am January 12, 2016 5:03pm liraglutide (3 sources) GLP-1 Receptor Agonist liraglutide (VICTOZA 2-ARIANNE SUBCUTANEOUS) Indications: Choroidal nevus of left eye Inject subcutaneously. 0 Active Comment on above: Inject subcutaneousl y. magnesium chloride 598 mg delayed release oral tablet (20 sources) Start: 7 End: 1 take 1 tablet by mouth once daily Magnesium Chloride (Slow-Mag) 71.5 mg tablet,delayed release (DR/EC) Active 71.5 mg PO DAILY July 23, 2020 1:00am Start: 05-27-2015 End: 01-26-2017 take 1 tablet by mouth once daily Magnesium Chloride (Slow-Mag) 71.5 MG Tablet.Dr Discontinued 71.5 mg PO DAILY May 27, 2015 1:00am January 26, 2017 2:58pm Comment on above: Take 1 tablet by margaret once daily. meclizine hydrochloride 25 mg oral tablet (11 sources) Antiemetic Start: 1 take 1 tablet by mouth three times daily as needed for dizziness Meclizine 25 mg tablet Active 25 mg PO THREE TIMES A DAY as needed for dizziness July 23, 2020 1:00am Comment on above: Take 25 mg by mouth three times daily. omeprazole 20 mg delayed release oral tablet (15 sources) Proton Pump Inhibitor Start: 4 take 2 tablets by mouth once daily Omeprazole 20 mg tablet,delayed release (DR/EC) Active 40 mg PO DAILY July 02, 2023 11:16am Start: 07-02-2023 take 40 mg by mouth once daily Omeprazole Active 40 MG PO DAILY July 02, 2023 11:16am Start: 08-16-2020 take 1 capsule by [facility] once daily omeprazole (PRILOSEC) 20 mg capsule Take 20 mg by mouth once daily. 0 08/16/2020 Active Start: 07-23-2020 End: 07-02-2023 take 1 tablet by mouth once daily Omeprazole 20 mg tablet,delayed release (DR/EC) Discontinued 20 mg PO DAILY July 23, 2020 1:00am July 02, 2023 11:16am Comment on above: Take 20 mg by mouth once daily. ondansetron 4 mg disintegrating oral tablet (9 sources) Serotonin-3 Receptor Antagonist Start: take 1 tablet by mouth every six hours as needed for nausea and vomiting Ondansetron 4 mg tablet,disintegratin g Active 4 mg PO EVERY 6 HOURS as needed for nausea and vomiting June 01, 2022 1:00am OZEMPIC 2 mg/dose (8 mg/3 mL) pen injector (1 source) Start: OZEMPIC 2 mg/dose (8 mg/3 mL) pen injector phenylephrine hydrochloride 25 mg/ml ophthalmic solution (2 sources) alpha-1 Adrenergic Agonist Start: End: PHENYLephrine 2.5 % 1 Drop (AK-DILATE, JOVON-SYNEPHRINE) sertraline 25 mg oral tablet (2 sources) Serotonin Reuptake Inhibitor Start: take 1 tablet by mouth once daily Sertraline 25 mg tablet Active 25 mg PO daily March 13, 2024 12:00am tropicamide 10 mg/ml ophthalmic solution (2 sources) Anticholinergic Start: End: tropicamide 1 % 1 Drop (MYDRIACYL) Completed/Discontinued Medications Medication Drug Class(es) Dates Sig (Normalized) Sig (Original) acetaminophen 325 mg / HYDROcodone bitartrate 5 mg oral tablet (11 sources) Opioid Agonist Start: 09-13-2023 End: 02-18-2024 Hydrocodone-Acetami nophen 5-325 mg tablet Discontinued 1 {tbl} PO EVERY 6 HOURS NEEDED as needed for Pain 10 September 13, 2023 February 18, 2024 12:53pm Start: 09-13-2023 take 1 tablet by margaret th every six hours as needed Hydrocodone-Acetaminophen Active 1 TABLE T PO EVERY 6 HOURS NEEDED 10 September 13, 2023 Start: 07-20-2017 End: 10-01-2017 Hydrocodone-Acetaminophen 1 TABLET tablet Discontinued 1 - 2 {tbl} PO EVERY 4 HOURS NEEDED as needed for Pain 12 July 20, 2017 1:00am October 01, 2017 10:27am Start: 07-20-2017 End: 10-01-2017 take 1 tablet by mouth every four hours as needed Hydrocodone-Acetaminophen Discontinued 1 - 2 TABLET PO EVERY 4 HOURS NEEDED 12 July 20, 2017 1:00am October 01, 2017 10:27am amLODIPine 5 mg oral tablet (20 sources) Dihydropyridine Calcium Channel Rosa Start: 08-16-2020 End: 02-17-2024 take 1 tablet by mouth once daily Amlodipine 5 MG tablet Discontinued 5 mg PO DAILY August 17, 2020 1:00am February 01, 2023 9:38am Start: 06-17-2019 End: 07-23-2020 take 1 tablet by mouth once daily Amlodipine 5 mg tablet Discontinued 5 mg PO DAILY June 17, 2019 9:56am July 23, 2020 2:10pm Comment on above: Take 5 mg by mouth o nce daily. atorvastatin 40 mg oral tablet (5 sources) HMG-CoA Reductase Inhibitor Start: 06-10-20 15 take 1 tablet by mouth once daily ATORVASTATIN CALCIUM 40 MG TABS One tablet by mouth daily ATORVASTATIN CALCIUM [id number] Kaye Burris PA-C 24 hr buPROPion hydrochloride 150 mg extended release oral tablet (11 sources) Aminoketone Start: 07-23-19 End: 12-31-19 24 take 1 tablet by mouth once daily in the morning Bupropion Hcl 150 mg tablet extended release 24 hr Discontinued 150 mg PO EVERY MORNING July 23, 2020 1:00am December 31, 2023 10:39am Comment on above: Take 150 mg by mouth every morning. calcium carbonate 298 mg / magnesium chloride 596 mg delayed release oral tablet (5 sources) Start: 01-17-20 16 take 1 tablet by mouth once daily SLOW-MAG 71.5-119 MG TBEC One tablet by mouth daily MAGNESIUM CL-CALCIUM CARBONATE [id number] Kristen Sandy RN Start: 01-17-2016 take 1 tablet by margaret th once daily SLOW-MAG 71.5-119 MG TBEC One tablet by mouth daily MAGNESIUM CL-CALCIUM CARBONATE [id number] Kristen Sandy RN carvedilol 25 mg oral tablet (20 sources) alpha-Adrenergic Rosa, beta-Adrenergic Rosa Start: 11-01-2022 End: 12-31-2023 take 1 tablet by mouth twice daily at mealtime Carvedilol 25 mg tablet Discontinued 25 mg PO TWICE A DAY 180 February 01, 2023 9:37am December 31, 2023 10:43am must administer with a meal/food Start: 01-12-2016 End: 01-13-2016 Carvedilol 3.125 MG tablet Discontinued 50 mg PO TWICE A DAY January 12, 2016 5:03pm January 13, 2016 10:43am Start: 01-12-2016 End: 01-13-2016 take 50 mg by mouth twice daily Carvedilol Discontinue d 50 MG PO TWICE A DAY January 12, 2016 5:03pm January 13, 2016 10:43am Start: 06-10-2015 End: 11-01-2022 take 1 tablet by mouth twice daily Carvedilol 12.5 MG tablet Discontinued 12.5 mg PO TWICE A DAY January 26, 2017 2:58pm November 01, 2022 1:05pm Start: 06-10-2015 take 1 tablet by margaret th twice daily COREG 6.25 MG TABS One tablet by mouth twice daily CARVEDILOL [id number] Kaye Burris PA-C Start: 06-10-2015 take 1 tablet by margaret th twice daily COREG 25 MG TABS One tablet by mouth twice daily CARVEDILOL [id number] Kaye Burris PA-C Start: 06-10-2015 take 2 tablets by mo [facility] twice daily COREG 25 MG TABS Two tablets by mouth twice daily CARVEDILOL [id number] Grace Horan RN Start: 05-27-2015 End: 01-12-2016 take 1 tablet by mouth twice daily Carvedilol 3.125 MG tablet Discontinued 3.125 mg PO TWICE A DAY 60 May 27, 2015 1:00am January 12, 2016 5:03pm Comment on above: Take 1 tablet by margaret twice daily. colestipol hydrochloride 1000 mg oral tablet (20 sources) Bile Acid Sequestrant Start: 1 End: 1 take 2 g by mouth twice daily Colestipol Discontinued 2 GM PO TWICE A DAY 60 July 23, 2020 2:35pm January 20, 2021 10:58am Start: 02-29-2016 End: 01-20-2021 take 1 tablet by mouth twice daily Colestipol 1 GM tablet Discontinued 1 g PO TWICE A DAY June 19, 2016 1:00am July 23, 2020 2:41pm Start: 02-29-2016 take 1 tablet by margaret twice daily COLESTID 1 GM TABS One tablet by mouth twice daily COLESTIPOL HCL [id number] Kaye Burris PA-C Comment on above: Take 1 g by mouth tw ice daily. dapagliflozin 10 mg oral tablet (7 sources) Sodium-Glucose Cotransporter 2 Inhibitor Start: 02-17-20 End: 10-24-19 take 1 tablet by mouth once daily Dapagliflozin Propanediol (Farxiga) 10 mg tablet Discontinued 10 mg PO DAILY March 13, 2024 11:22am October 23, 2024 1:59pm Start: 09-07-2021 take 1 tablet by margaret once daily FARXIGA 10 mg tablet Take 10 mg by mouth once daily. 0 09/07/2021 Active Comment on above: Take 10 mg by mouth once daily. diphenhydrAMINE hydrochloride 25 mg oral capsule (8 sources) Histamine-1 Receptor Antagonist Start: 018 End: take 2 capsules by mouth at bedtime as needed for sleep Diphenhydramine Hcl 25 MG capsule Discontinued 50 mg PO AT BEDTIME NEEDED as needed for Sleep March 20, 2018 12:00am November 27, 2019 1:56pm Start: 03-20-2018 End: 11-27-2019 take 50 mg by mouth at bedtime as needed Diphenhydramine Hcl Discontinued 50 MG PO AT BEDTIME NEEDED March 20, 2018 12:00am November 27, 2019 1:56pm docusate sodium 100 mg oral capsule (19 sources) Start: 03-20-2018 End: 05-30-2019 take 1 capsule by mouth twice daily Docusate Sodium 100 MG capsule Discontinued 100 mg PO TWICE A DAY March 20, 2018 2:16pm May 30, 2019 3:37pm Start: 07-20-2017 End: 03-20-2018 take 1 capsule by mouth once daily Docusate Sodium 100 MG capsule Discontinued 100 mg PO DAILY July 20, 2017 1:00am March 20, 2018 2:16pm Comment on above: Take 100 mg by mouth twice daily. Dulaglutide (20 sources) GLP-1 Receptor Agonist Start: 10-23-2024 End: 10-23-2024 Dulaglutide (Trulicity) 3 mg/0.5 mL pen injector Discontinued 3 mg SC EVERY WEEK 2 October 23, 2024 12:00am October 23, 2024 3:06pm Start: 08-14-2024 End: 10-23-2024 Dulaglutide (Trulicity) 1.5 mg/0.5 mL pen injector Discontinued 1.5 mg SC EVERY WEEK 2 August 14, 2024 1:00am October 23, 2024 2:35pm Start: 04-21-2024 End: 08-14-2024 Dulaglutide (Trulicity) 0.75 mg/0.5 mL pen injector Discontinued 0.75 mg SC EVERY WEEK 2 April 21, 2024 1:00am August 14, 2024 5:06pm Start: 08-16-2020 End: 01-12-2022 Dulaglutide 0.75 mg/0.5 mL p en injector Discontinued 0.75 mg SC EVERY WEEK January 20, 2021 10:19am January 12, 2022 4:24pm Comment on above: Inject 0.75 mg subcu taneously one time a week. enalapril maleate 10 mg oral tablet (17 sources) Angiotensin Converting Enzyme Inhibitor Start: 5 take 1 tablet by mouth twice daily ENALAPRIL MALEATE 10 MG TABS One tablet by mouth twice daily ENALAPRIL MALEATE [id number] Kaye Pierson RN Start: 06-10-2015 End: 03-12-2017 take 1 tablet by mouth once daily ENALAPRIL MALEATE 10 MG TABS One tablet by mouth daily (STOP) ENALAPRIL MALEATE [id number] Stewart Boggs MD FLUoxetine 40 mg oral capsule (19 sources) Serotonin Reuptake Inhibitor Start: 11-01-2018 End: 04-16-2024 take 1 capsule by mouth once daily Fluoxetine (Prozac) 40 mg capsule Discontinued 40 mg PO DAILY November 01, 2018 12:00am April 16, 2024 2:34pm Start: 11-01-2017 take 1 capsule by mo [facility] once daily FLUoxetine (PROZAC) 20 mg capsule Take 20 mg by mouth once daily. 0 11/01/2017 Active Start: 10-01-2017 End: 11-01-2018 take 10 mg by mouth once daily Fluoxetine (Prozac) 20 mg capsule Discontinued 10 mg PO daily October 01, 2017 12:00am November 01, 2018 9:39am Comment on above: Take 20 mg by mouth once daily. furosemide 20 mg oral tablet (20 sources) Loop Diuretic Start: 0 End: take 1 tablet by mouth at breakfast Furosemide 40 mg tablet Discontinued 40 mg PO WITH BREAKFAST November 01, 2022 1:03pm February 01, 2023 9:38am Start: 07-13-2017 End: 10-01-2017 take 1 tablet by mouth twice daily Furosemide 40 MG tablet Discontinued 40 mg PO TWICE A DAY July 13, 2017 10:59am October 01, 2017 10:29am Start: 02-29-2016 End: 12-31-2023 take 1 tablet by mouth once daily, then take 2 tablets by mouth once daily in the morning Furosemide 20 mg tablet Discontinued 20 mg PO .COMPLEX November 01, 2022 1:04pm February 01, 2023 9:38am 20 mg orally daily at lunchtime (takes a 40 mg tablet every morning); Start: 01-17-2016 End: 01-26-2016 take 1 tablet by mouth once daily LASIX 20 MG TABS One tablet by mouth daily FUROSEMIDE [id number] Kaye Pierson RN Start: 01-13-2016 End: 06-19-2016 Furosemide 40 MG tablet Disc ontinued 20 mg PO DAILY as needed for Swelling January 13, 2016 10:45am June 19, 2016 2:17pm Start: 01-13-2016 End: 06-19-2016 take 20 mg by mouth once daily Furosemide Discontinued 20 MG PO DAILY January 13, 2016 10:45am June 19, 2016 2:17pm Start: 01-13-2016 End: 01-13-2016 Furosemide 40 MG tablet Disc ontinued 25 mg PO DAILY as needed for Swelling January 13, 2016 10:45am January 13, 2016 10:45am Start: 01-13-2016 End: 01-13-2016 take 25 mg by mouth once daily Furosemide Discontinued 25 MG PO DAILY January 13, 2016 10:45am January 13, 2016 10:45am Start: 06-10-2015 End: 12-27-2015 take 1 tablet by mouth twice daily LASIX 40 MG TABS One tablet by mouth twice daily FUROSEMIDE [id number] Grace Horan RN Start: 05-27-2015 End: 11-01-2018 take 1 tablet by mouth once daily Furosemide 40 mg tablet Discontinued 40 mg PO daily October 01, 2017 10:26am November 01, 2018 9:37am Comment on above: Take 1 tablet by margaret th once daily. Take 20 mg by mouth once daily. glipiZIDE 5 mg oral tablet (4 sources) Sulfonylurea Start: 4 End: 5 take 1 tablet by mouth once daily Glipizide 5 mg tablet Discontinued 5 mg PO DAILY July 04, 2023 1:00am October 23, 2024 2:36pm glucose 0.4 mg/mg oral gel (5 sources) Start: 6 GLUCOSE 40 % GEL as needed DEXTROSE (DIABETIC USE) [id number] Kristen Sandy RN Handicap Parking Placard (20 sources) Start: 2 End: 2 Handicap Parking Placard Discontinued 0 .Route .MEDSUPPLY May 09, 2022 3:48pm May 09, 2022 4:02pm As directed Start: 05-09-2022 End: 05-09-2022 Handicap Parking Placard Dis continued 0 .Route .MEDSUPPLY 1 May 09, 2022 2:48pm May 09, 2022 3:02pm As directed Start: 05-09-2022 End: 05-09-2022 Handicap Parking Placard Dis continued 0 .Route .MEDSUPPLY 1 May 09, 2022 3:47pm May 09, 2022 3:48pm As directed Start: 05-09-2022 End: 05-09-2022 Handicap Parking Placard Dis continued 0 .Route .MEDSUPPLY 1 May 09, 2022 2:47pm May 09, 2022 2:48pm As directed Start: 05-09-2022 Handicap [address]i ng Placard Active 0 .Route .MEDSUPPLY 1 May 09, 2022 1:00am As directed Start: 05-09-2022 Handicap [address]i ng Placard Active 0 .Route .MEDSUPPLY 1 May 09, 2022 12:00am As directed Start: 05-01-2022 End: 05-09-2022 Handicap [address]ing Placard Dis continued 0 .Route .MEDSUPPLY 1 May 01, 2022 1:00am May 09, 2022 3:47pm As directed Start: 05-01-2022 End: 05-09-2022 Hand[address]acard Dis continued 0 .Route .MEDSUPPLY May 01, 2022 12:00am May 09, 2022 2:47pm As directed HANDICAP PLACARD (2 sources) Start: 03-12-[address] Lifetime duration DX: Cardiomyopathy HANDICAP PLACDEEPA Burris PA-C Insulin Detemir U-100 100 unit/mL (3 mL) insulin pen (4 sources) Start: 07-02-2023 End: 10-04-2023 Insulin Detemir U-100 100 un it/mL (3 mL) insulin pen Discontinued 30 U SC .morning July 02, 2023 11:12am October 04, 2023 1:51pm Start: 02-01-2023 End: 07-02-2023 Insulin Detemir U-100 100 un it/mL (3 mL) insulin pen Discontinued 50 U SC .morning February 01, 2023 9:34am July 02, 2023 11:12am lisinopril 5 mg oral tablet (20 sources) Angiotensin Converting Enzyme Inhibitor Start: 01-12-2016 End: 01-13-2016 take 4 tablets by mouth once daily Lisinopril 5 MG tablet Discontinued 20 mg PO DAILY January 12, 2016 5:03pm January 13, 2016 10:45am Start: 01-12-2016 End: 01-13-2016 take 20 mg by mouth once daily Lisinopril Discontinued 20 MG PO DAILY January 12, 2016 5:03pm January 13, 2016 10:45am Start: 06-10-2015 take 2 tablets by mo ut once daily LISINOPRIL 5 MG TABS Two tablets by mouth daily LISINOPRIL [id number] Stewart Boggs MD Start: 06-10-2015 take 1 tablet by margaret th once daily LISINOPRIL 10 MG TABS One tablet by mouth daily LISINOPRIL [id number] Kristen Sandy RN Start: 06-10-2015 take 1 tablet by margaret th once daily LISINOPRIL 20 MG TABS One tablet by mouth daily LISINOPRIL [id number] Kaye Burris PA-C Start: 05-27-2015 End: 01-12-2016 take 1 tablet by mouth once daily Lisinopril 5 MG tablet Discontinued 5 mg PO DAILY May 27, 2015 1:00am January 12, 2016 5:03pm metFORMIN hydrochloride 1000 mg oral tablet (20 sources) Biguanide Start: 07-13-2017 End: 11-01-2018 Metformin 1,000 mg tablet Discontinued 500 mg PO TWICE A DAY July 13, 2017 1:00am November 01, 2018 9:40am Start: 07-13-2017 End: 11-01-2018 take 500 mg by mouth twice daily Metformin Discontinue d 500 MG PO TWICE A DAY July 13, 2017 1:00am November 01, 2018 9:40am Start: 06-19-2016 End: 07-13-2017 take 2 tablets by mouth twice daily at mealtime Metformin 500 MG tablet Discontinued 1000 mg PO TWICE DAILY WITH MEALS June 19, 2016 2:17pm July 13, 2017 11:01am Start: 06-19-2016 End: 07-13-2017 take 1000 mg by mouth twice daily at mealtime Metformin Discontinued 1000 MG PO TWICE DAILY WITH MEALS June 19, 2016 2:17pm July 13, 2017 11:01am Start: 06-10-2015 End: 01-12-2022 take 1 tablet by mouth twice daily Metformin 1,000 mg tablet Discontinued 1000 mg PO TWICE A DAY November 01, 2018 9:36am January 12, 2022 4:27pm Start: 05-20-2015 End: 06-19-2016 take 1 tablet by mouth twice daily at mealtime Metformin 500 MG tablet Discontinued 500 mg PO TWICE DAILY WITH MEALS 60 May 27, 2015 12:51pm June 19, 2016 2:17pm Comment on above: Take 1,000 mg by margaret th twice daily with meals. naproxen sodium 220 mg oral tablet (8 sources) Nonsteroidal Anti-inflammatory Drug Start: 05-23-20 15 End: 05-27-20 15 take 2 tablets by mouth twice daily Naproxen Sodium (Aleve) 220 MG tablet Discontinued 440 mg PO TWICE A DAY May 23, 2015 1:00am May 27, 2015 12:51pm pantoprazole 40 mg delayed release oral tablet (16 sources) Proton Pump Inhibitor Start: 10-27-19 20 End: 07-23-19 21 take 1 tablet by mouth once daily Pantoprazole 40 MG tablet Discontinued 40 mg PO DAILY November 10, 2019 12:00am July 23, 2020 2:10pm potassium chloride 10 meq extended release oral tablet (10 sources) Start: 06-10-20 15 End: 01-19-20 16 take 1 tablet by mouth once daily POTASSIUM CHLORIDE ER 10 MEQ CR-TABS One tablet by mouth daily POTASSIUM CHLORIDE [id number] Kaye Burris PA-C pravastatin sodium 20 mg oral tablet (10 sources) HMG-CoA Reductase Inhibitor Start: 01-26-20 16 End: 02-29-20 16 take 1 tablet by mouth at bedtime PRAVACHOL 20 MG TABS One tablet by mouth at bedtime. PRAVASTATIN SODIUM [id number] Kaye Pierson RN sacubitril 97 mg / valsartan 103 mg oral tablet (20 sources) Angiotensin 2 Receptor Rosa Start: 01-21-20 21 End: 09-23-19 25 Sacubitril-Valsartan (Entresto) 97-103 mg tablet Discontinued 1 {tbl} PO TWICE A DAY 180 September 12, 2023 1:21pm March 13, 2024 10:52am Start: 08-05-2020 End: 08-05-2020 Sacubitril-Valsartan (Entres to) 97-103 mg tablet Discontinued 1 {tbl} PO TWICE A DAY August 05, 2020 1:00am August 05, 2020 6:11pm Start: 01-26-2017 End: 08-05-2020 take 1 tablet by mouth twice daily Sacubitril-Valsartan Discontinued 1 TABLET PO TWICE A DAY January 26, 2017 12:00am August 05, 2020 6:09pm Start: 08-23-2016 End: 08-05-2020 Sacubitril-Valsartan 1 EACH tablet Discontinued 1 {tbl} PO TWICE A DAY January 26, 2017 12:00am August 05, 2020 6:09pm Start: 08-23-2016 take 1 tablet by margaret th twice daily ENTRESTO 49-51 MG TABS One tablet by mouth twice daily SACUBITRIL-VALSARTAN [id number] Stewart Boggs MD Start: 08-23-2016 take 1 tablet by margaret th twice daily ENTRESTO 49-51 MG TABS One tablet by mouth twice daily SACUBITRIL-VALSARTAN [id number] Stewart Boggs MD Comment on above: 1 tablet twice daily . Semaglutide (9 sources) Start: 02-18-2024 End: 04-16-2024 Semaglutide (Ozempic) 1 mg/dose (4 mg/3 mL) pen injector Discontinued 1 mg SC .weekly February 18, 2024 12:00am April 16, 2024 2:36pm Start: 10-03-2023 End: 01-17-2024 Semaglutide (Ozempic) 1 mg/d ose (4 mg/3 mL) pen injector Discontinued 1 mg SC EVERY WEEK October 03, 2023 12:00am January 17, 2024 10:16am Start: 10-19-2022 End: 12-28-2022 Semaglutide (Ozempic) 1 mg/d ose (4 mg/3 mL) pen injector Discontinued 1 mg SC EVERY WEEK 3 October 19, 2022 12:00am December 28, 2022 9:33am Start: 10-19-2022 End: 12-28-2022 Semaglutide (Ozempic) 1 mg/d ose (4 mg/3 mL) pen injector Discontinued 1 MG SC EVERY WEEK 3 October 18, 2022 11:00pm December 28, 2022 8:33am Start: 10-19-2022 End: 12-28-2022 Semaglutide (Ozempic) 1 mg/d ose (4 mg/3 mL) pen injector Discontinued 1 MG SC EVERY WEEK 3 October 19, 2022 12:00am December 28, 2022 9:33am Semaglutide (Ozempic) 2 mg/d ose (8 mg/3 mL) pen injector (5 sources) Start: 12-28-2022 End: 10-03-2023 Semaglutide (Ozempic) 2 mg/d ose (8 mg/3 mL) pen injector Discontinued 2 mg SC EVERY WEEK 3 December 28, 2022 12:00am October 03, 2023 10:12am Start: 12-28-2022 Semaglutide (O zempic) 2 mg/dose (8 mg/3 mL) pen injector Active 2 MG SC EVERY WEEK 3 December 27, 2022 11:00pm Start: 12-28-2022 Semaglutide (O zempic) 2 mg/dose (8 mg/3 mL) pen injector Active 2 MG SC EVERY WEEK 3 December 28, 2022 12:00am simvastatin 20 mg oral tablet (10 sources) HMG-CoA Reductase Inhibitor Start: 06-10-2015 End: 01-19-2016 take 1 tablet by mouth at bedtime SIMVASTATIN 20 MG TABS One tablet by mouth at bedtime. SIMVASTATIN [id number] Stewart Boggs MD spironolactone 50 mg oral tablet (20 sources) Aldosterone Antagonist Start: 01-13-2016 End: 06-19-2016 Spironolactone 50 MG tablet Discontinued 25 mg PO DAILY January 13, 2016 10:45am June 19, 2016 2:17pm Start: 01-13-2016 End: 06-19-2016 take 25 mg by mouth once daily Spironolactone Disconti nued 25 MG PO DAILY January 13, 2016 10:45am June 19, 2016 2:17pm Start: 11-29-2015 End: 06-30-2016 take 1 tablet by mouth once daily Spironolactone 50 MG tablet Discontinued 50 mg PO DAILY January 12, 2016 12:00am January 13, 2016 10:45am Start: 11-29-2015 take 1 tablet by margaret once daily SPIRONOLACTONE 25 MG TABS One tablet by mouth daily SPIRONOLACTONE [id number] Kristen Sandy RN vitamin d 1000 unt oral tablet (5 sources) Start: 08-23-2016 take 5 tablets by mouth once daily VITAMIN D 1000 UNIT TABS Five tablets by mouth daily CHOLECALCIFEROL [id number] Stewart Boggs MD Start: 08-23-2016 take 5 tablets by mo [facility] once daily VITAMIN D 1000 UNIT TABS Five tablets by mouth daily CHOLECALCIFEROL [id number] Stewart Boggs MD Start: 08-23-2016 take 5 tablets by mo [facility] once daily VITAMIN D 1000 UNIT TABS Five tablets by mouth daily CHOLECALCIFEROL [id number] Stewart Boggs MD Problems Active Problems Problem Classification Problem Date Documented Da te Episodic/Chronic Acute and unspecified renal failure (8 sources) Injury of kidney; Translations: [Acute kidney failure, unspecified] 10-26-2019 Episodic Anxiety disorders (8 sources) Mixed anxiety and depressive disorder; Translations: [Anxiety disorder, unspecified] 04-30-2020 Chronic Cancer; other and unspecified primary (8 sources) Malignant melanoma of left choroid; Translations: [Malignant neoplasm of left choroid] Onset: 8 01-31-2018 Chronic Cancer; other and unspecified primary (1 source) Malignant neoplasm of left choroid; Translations: [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)] Onset: 8 Chronic Cardiac dysrhythmias (3 sources) Palpitations; Translations: [Palpitations] 02-24-2016 Episodic Chronic kidney disease (10 sources) Chronic kidney disease stage 3; Translations: [Stage 3 chronic kidney disease] 12-28-2022 Chronic Conditions associated with dizziness or vertigo (10 sources) Vertigo; Translations: [Dizziness and giddiness] 07-07-2020 Episodic Conduction disorders (20 sources) Bundle branch block; Translations: [Automatic implantable cardiac defibrillator in situ] Onset: 5 05-27-2015 Chronic Comment on above: Implanted 03/16/2016 mala Garcia, [facility] Congestive heart failure; nonhypertensive (20 sources) Chronic systolic (congestive) heart failure; Translations: [Acute on chronic systolic heart failure] Onset: 6 01-17-2016 Chronic Coronary atherosclerosis and other heart disease (20 sources) 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; Translations: [Myocardial ischemia] Onset: 5 Resolved: 6 12-01-2016 Chronic Comment on above: 05/26/2015 @ [facility] per Dr. Boggs: mild nonobstructive CAD Diabetes mellitus with complications (13 sources) Disorder of nervous system due to type 2 diabetes mellitus; Translations: [Type 2 diabetes mellitus with other diabetic neurological complication] Onset: Chronic Diabetes mellitus without complication (20 sources) Diabetes mellitus; Translations: [Type 2 diabetes mellitus] Onset: 5 06-10-2015 Chronic Disorders of lipid metabolism (20 sources) Hyperlipidemia; Translations: [Pure hypercholesterolemia] Onset: 6 01-17-2016 Chronic E Codes: Adverse effects of medical drugs (2 sources) Adverse reaction to drug; Translations: [Adverse effect of unspecified drugs, medicaments and biological substances, initial encounter] 02-26-2024 Episodic Essential hypertension (20 sources) Essential hypertension; Translations: [Essential (primary) hypertension] Onset: 4 02-24-2016 Chronic Gastrointestinal hemorrhage (8 sources) Acute upper gastrointestinal hemorrhage; Translations: [Gastrointestinal hemorrhage, unspecified] 07-06-2020 Episodic Genitourinary symptoms and ill-defined conditions (3 sources) Microalbuminuria; Translations: [Proteinuria, unspecified] 07-17-2024 Episodic Heart valve disorders (13 sources) Nonrheumatic mitral (valve) insufficiency; Translations: [Non-rheumatic mitral regurgitation ] Onset: 6 01-17-2016 Chronic Comment on above: moderate (2+) per ec ho 01/13/2016 Influenza (8 sources) Influenza due to Influenza A virus; Translations: [Influenza due to other identified influenza virus with other respiratory manifestations] 06-09-2022 Episodic Intestinal obstruction without hernia (5 sources) Fecal impaction; Translations: [Fecal impaction of rectum] 11-30-2022 Episodic Mood disorders (6 sources) Depressive disorder; Translations: [Depression] 07-04-2023 Chronic Mycoses (1 source) Onychomycosis; Translations: [Tinea unguium] Episodic Nonspecific chest pain (6 sources) Chest wall pain; Translations: [Other chest pain] 09-13-2023 Episodic Other circulatory disease (8 sources) Disorder of carotid artery; Translations: [Disorder of arteries and arterioles, unspecified] 10-26-2019 Chronic Other circulatory disease (2 sources) History of cardiomyopathy; Translations: [Personal history of other diseases of the circulatory system] 02-26-2024 Episodic Other connective tissue disease (1 source) Pain of toe of left foot; Translations: [Pain in left toe(s)] Episodic Other connective tissue disease (1 source) Pain of toe of right foot; Translations: [Pain in right toe(s)] Episodic Other gastrointestinal disorders (5 sources) Constipation; Translations: [Constipation, unspecified] 11-30-2022 Episodic Other injuries and conditions due to external causes (8 sources) Closed injury of head; Translations: [Unspecified injury of head, initial encounter] 08-18-2020 Episodic Other lower respiratory disease (16 sources) Dyspnea; Translations: [Shortness of breath] 05-01-2020 Episodic Other nervous system disorders (2 sources) Dysarthria; Translations: [Dysarthria and anarthria] 02-26-2024 Episodic Other nutritional; endocrine; and metabolic disorders (13 sources) Body mass index (BMI) 36.0-36.9, adult; Translations: [Body mass index (BMI) 38.0-38.9, adult] Onset: 5 11-29-2015 Chronic Other nutritional; endocrine; and metabolic disorders (3 sources) Body mass index (BMI) 35.0-35.9, adult; Translations: [Body mass index (BMI) 35.0-35.9, adult] Onset: 5 06-10-2015 Chronic Other nutritional; endocrine; and metabolic disorders (3 sources) Body mass index (BMI) 40.0-44.9, adult; Translations: [Body mass index (BMI) 40.0-44.9, adult] Onset: 5 08-23-2016 Chronic Other nutritional; endocrine; and metabolic disorders (3 sources) Body mass index (BMI) 38.0-38.9, adult; Translations: [Body mass index (BMI) 38.0-38.9, adult] Onset: 5 02-29-2016 Chronic Other nutritional; endocrine; and metabolic disorders (3 sources) Body mass index (BMI) 33.0-33.9, adult; Translations: [Body mass index (BMI) 33.0-33.9, adult] Onset: 5 07-22-2015 Chronic Other nutritional; endocrine; and metabolic disorders (9 sources) Body mass index 30+ - obesity; Translations: [Obesity, unspecified] 10-26-2019 Chronic Other nutritional; endocrine; and metabolic disorders (5 sources) Obesity, unspecified; Translations: [Obesity, unspecified] 10-19-2022 Chronic Other nutritional; endocrine; and metabolic disorders (2 sources) Obesity; Translations: [Obesity, unspecified] 10-24-2024 Chronic Other nutritional; endocrine; and metabolic disorders (2 sources) H/O: diabetes mellitus; Translations: [Personal history of other endocrine, nutritional and metabolic disease] 02-26-2024 Episodic Other skin disorders (1 source) Keratosis; Translations: [Epidermal thickening, unspecified] Episodic Negrita-; endo-; and myocarditis; cardiomyopathy (20 sources) Dilated cardiomyopathy; Translations: [Cardiomyopathy] Onset: 5 07-22-2015 Chronic Comment on above: Ejection fraction 20 % per echo 01/13/2016 @ [facility] Peripheral and visceral atherosclerosis (5 sources) Peripheral vascular disease, unspecified; Translations: [Peripheral vascular disease, unspecified] Onset: 6 01-19-2016 Chronic Residual codes; unclassified (6 sources) Noncompliance with medication regimen; Translations: [Noncompliance with medication regimen] 10-19-2022 Episodic Screening and history of mental health and substance abuse codes (8 sources) Ex-tobacco user; Translations: [Personal history of nicotine dependence] 04-30-2020 Episodic Superficial injury; contusion (16 sources) Abrasion of nose; Translations: [Abrasion of nose, initial encounter] 08-18-2020 Episodic Syncope (6 sources) Near syncope; Translations: [Syncope and collapse] 02-01-2023 Episodic Unclassified (16 sources) Obstructive sleep apnea syndrome; Translations: [Obstructive sleep apnea (adult) (pediatric)] Onset: 6 01-17-2016 Chronic Unclassified (3 sources) Long-term drug therapy; Translations: [Other mcc (current) drug therapy] Onset: 6 06-23-2015 Past or Other Problems Problem Classification Problem Date Documented Date Episodic/Chronic Nausea and vomiting (11 sources) Nausea and vomiting; Translations: [Nausea with vomiting, unspecified] Onset: 02-27-2024 06-09-2022 Episodic Other aftercare (2 sources) Other mcc (current) drug therapy; Translations: [Other continuous churn buttermaker (current) drug therapy] Onset: 06-23-2015 06-23-2015 Episodic Other circulatory disease (5 sources) Carotid bruit; Translations: [Other specified symptoms and signs involving the circulatory and respiratory systems] Onset: 01-19-2016 01-19-2016 Episodic Other circulatory disease (2 sources) Personal history of other diseases of the circulatory system; Translations: [Personal history of other diseases of the circulatory system] Onset: 02-27-2024 Episodic Other connective tissue disease (1 source) Pain in left upper arm; Translations: [Pain in left upper arm] Onset: 04-30-2024 Episodic Other nervous system disorders (2 sources) Dysarthria and anarthria; Translations: [Dysarthria and anarthria] Onset: 02-27-2024 Episodic Other nutritional; endocrine; and metabolic disorders (5 sources) H/O: metabolic disorder; Translations: [Personal history of other endocrine, nutritional and metabolic disease] Onset: 06-30-2016 06-30-2016 Episodic Other screening for suspected conditions (not mental disorders or infectious disease) (11 sources) Electrocardiogram abnormal; Translations: [Abnormal electrocardiogram [ECG] [EKG]] Onset: 02-27-2024 10-26-2019 Episodic Unclassified (1 source) device check Onset: 10-15-2018 Results Test Name Value Interpretation Reference Range Facility Endocrinology Visit Reporton 10-23-2024 Endocrinology Visit Report [facility] [address] [place] [address] OFFICE VISIT Date of Service: 10/23/24 MR#: [id number] Acct: [id number] Name: THIAGO PIERRE Rep #: [id number] : 1955 Provider: EVENS gates Age/Sex: 69/F [place] [facility] [place]: Signed Intake Vital Signs 07/16/24 14:30 10/23/24 13:55 Height 5 ft 4 in 5 ft 4 in Weight: 257 lb 261 lb 8 oz BMI 44.1 44.9 BP 149/77 H 117/74 Blood Pressure Location Lt brachial Lt brachial Position Sitting Sitting Pulse 61 60 Pulse Source Monitor Monitor Pulse Oximetry (%) 94 95 Oxygen Delivery Method room air room air Intake Visit Reasons: 3 M FU Chief Complaint: f/u diabetes Is patient in pain?: No Allergies red dye Allergy (Verified 10/23/24 13:57) Hives Aqdhbfv-RIY-AsK Reductase Inhibitor (Oryzunb-Fdu-Gel Reductase Inhibitor) Adverse Reaction (Severe, Verified 10/23/24 13:57) Myalgias semaglutide (From Ozempic) Adverse Reaction (Verified 10/23/24 13:57) Vomiting Medications ???Medication ???Instructions ???Recorded ???Confirmed ???Type aspirin 81 mg tablet,delayed 81 mg PO DAILY@0800 HEALTH 7 10/23/24 History release MAINTENANCE cholecalciferol (vitamin D3) 50 2,000 unit PO PAYNE SUPPLEMENT 10/23/24 History mcg (2,000 unit) capsule cetirizine 10 mg tablet (Zyrtec) 10 mg PO DAILY PRN Allergies 07/2310/23/24 History magnesium chloride 71.5 mg 71.5 mg PO DAILY suppliment 10/23/24 History (magnesium chloride) tablet,delayed release (Slow-Mag) meclizine 25 mg tablet 25 mg PO TID PRN dizziness 1 10/23/24 History Handicap Parking Placard #1 ea 05/09/22 10/23/24 Rx ondansetron 4 mg disintegrating 4 mg PO Q6H PRN nausea and 2 10/23/24 Rx tablet vomiting #7 tabs ezetimibe 10 mg tablet (Zetia) 10 mg PO DAILY cholesterol #90 tab s 02/01/23 10/23/24 Rx omeprazole 20 mg tablet,delayed 40 mg PO DAILY GERD 07/02/2310/23 History release carvedilol 25 mg tablet 25 mg PO BID #180 tabs 12/31/23 Rx furosemide 20 mg tablet 20 mg PO QDAY water pill #30 tabs 12/31/23 10/23/24 Rx insulin aspart U-100 100 unit/mL 12 unit subcut 1700 Diabetes 12/3010/23/24 History (3 mL) subcutaneous pen amlodipine 5 mg tablet 5 mg PO DAILY blood pressure 02/1610/23/24 History buspirone 7.5 mg tablet 7.5 mg PO BID 03/13/24 10/23/24 Hi story sertraline 25 mg tablet 25 mg PO QDAY 03/13/24 10/23/24 Hi story cyclobenzaprine 10 mg tablet 5 mg PO TID PRN Muscle Spasm 04/1610/23/24 History insulin degludec 100 unit/mL (3 18 unit (0.18 mL) subcut .hs 04/2110/23/24 Rx mL) subcutaneous pen (Tresiba diabetes #16.2 mL FlexTouch U-100 insulin) insulin aspart U-100 100 unit/mL 15 unit (0.15 mL) subcut TID 08/2510/23/24 Rx (3 mL) subcutaneous pen (Novolog diabetes #40.5 mL FlexPen U-100 Insulin aspart) sacubitril 97 mg-valsartan 103 mg 1 tab PO BID HF #180 tabs 5 10/23/24 Rx tablet (Entresto) gabapentin 300 mg capsule 300 mg PO TID NERVE PAIN 10/23/24 10/23/24 History Have you fallen in the past year?: No PFSH Medical History (Updated 10/24/24 @ 10:46 by Lavonne Cyrus, [employer]) Essential hypertension Elevated troponin History of diabetes mellitus Hx of cardiomyopathy Dysarthria Medication reaction Intractable nausea and vomiting Dizziness Depression Near syncope Vertigo Carotid artery disease Pure hypercholesterolemia 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 Nonrheumatic mitral (valve) insufficiency Dilated cardiomyopathy Chronic systolic (congestive) heart failure BALWINDER (acute kidney injury) Abnormal electrocardiogram Systolic CHF, acute Hypertension Hyperlipidemia Diabetes mellitus, type II NICOLLE (obstructive sleep apnea) Surgical History History of eye surgery History of left heart catheterization (LHC) ( 05/26/15) Status post foot surgery Status post breast reduction S/P hysterectomy History of bilateral breast reduction surgery History of bilateral foot surgery History of hysterectomy Cardiac defibrillator in situ Family History Father , Lung cancer Lung cancer Mother , Breast cancer Breast cancer Brother Cancer lymphoma Social History household members: spouse Smoking Status: Former smoker quit date: 06/11/06 alcohol intake: never substance use type: does not use caffeine: No what type of physical activity do you participate in: none seatbelt use: always do you feel safe at home: Yes HPI HPI Chief (more content not included)... Normal [facility] Absolute lymphocyte countOrd ered By: [facility] Sarah Valencia on 10-22-2024 Lymphocytes Auto (Unsp spec) [#/Vol] 2.07 10*3/uL 0.83-4.51 [facility] Absolute neutrophil countOrd ered By: [facility] Sarah Valencia on 10-22-2024 Neutrophils (Bld) [#/Vol] 3.7 10*3/uL 2.0-7.7 [facility] Anion gap in Serum or Plasma Ordered By: [facility] Sarah Valencia on 10-22-2024 Anion gap [Moles/Vol] 12 mmol/L 10-23 [facility] Automated lymphocyte count a s percentage of total leukocytesOrdered By: [facility] Sarah Valencia on 10-22-2024 Lymphocytes/100 WBC Auto (Unsp spec) 32.3 % [facility] BUN/creatinine ratioOrdered By: [facility] Sarah Valencia on 10-22-2024 Urea nitrogen/Creatinine [Mass ratio] 25.2 mg/mg High 10-20 [facility] Basophil percentageOrdered B y: [facility] Sarah Valencia on 10-22-2024 Basophils/100 WBC (Bld) 0.6 % 0-1 [facility] Bilirubin, totalOrdered By: [facility] CareSarahmariluz Valencia on 10-22-2024 Bilirubin [Mass/Vol] 0.76 mg/dL 0.00-1.30 [facility] CBC W/Diff, Automatedon 10-09-2024 Absolute Lymph 2.07 X10 3/uL Normal 0.83-4.51 [facility] Comment on above: Performed By: #### L 500.4050, L100.0100, L502.0500, [id number] #### [facility] [address] [place], [address] Absolute Neut 3.7 X10 3/uL Normal 2.0-7.7 [facility] Comment on above: Performed By: #### L 500.4050, L100.0100, L502.0500, [id number] #### [facility] [address] [place], [address] Basophils/100 WBC (Bld) 0.6 % Normal 0-1 [facility] Comment on above: Performed By: #### L 500.4050, L100.0100, L502.0500, [id number] #### [facility] [address] [place], [address] Eosinophils/100 WBC (Bld) 2.5 % Normal 0-5 [facility] Comment on above: Performed By: #### L 500.4050, L100.0100, L502.0500, [id number] #### [facility] [address] [place], [address] Erythrocyte distribution width (RBC) [Ratio] 12.9 % Normal 11.6-14.6 [facility] Comment on above: Performed By: #### L 500.4050, L100.0100, L502.0500, [id number] #### [facility] [address] [place], [address] Hematocrit (Bld) [Volume fraction] 40.7 % Normal 37-47 [facility] Comment on above: Performed By: #### L 500.4050, L100.0100, L502.0500, [id number] #### [facility] [address] [place], [address] Hemoglobin (Bld) [Mass/Vol] 13.5 g/dL Normal 12.0-15.0 [facility] Comment on above: Performed By: #### L 500.4050, L100.0100, L502.0500, [id number] #### [facility] [address] [place], [address] IG% 0.300 Normal 0.0-0.9 [facility] Comment on above: Result Comment: IG% - Immature Granulocytes (promyelocytes, myelocytes and metamyelocytes) > 1% indicates that a LEFT SHIFT is Present. Performed By: #### L 500.4050, L100.0100, L502.0500, [id number] #### [facility] [address] [place], [address] Lymphocytes/100 WBC (Bld) 32.3 % Normal 19-41 [facility] Comment on above: Performed By: #### L 500.4050, L100.0100, L502.0500, [id number] #### [facility] [address] [place], [address] MCH (RBC) [Entitic mass] 28.8 pg Normal 27.0-32.0 [facility] Comment on above: Performed By: #### L 500.4050, L100.0100, L502.0500, [id number] #### [facility] [address] [place], [address] MCHC (RBC) [Mass/Vol] 33.2 g/dL Normal 32-36 [facility] Comment on above: Performed By: #### L 500.4050, L100.0100, L502.0500, [id number] #### [facility] [address] [place], [address] MCV (RBC) [Entitic vol] 86.8 fL Normal 81-99 [facility] Comment on above: Performed By: #### L 500.4050, L100.0100, L502.0500, [id number] #### [facility] [address] [place], [address] Monocytes/100 WBC (Bld) 6.1 % Normal 0-10 [facility] Comment on above: Performed By: #### L 500.4050, L100.0100, L502.0500, [id number] #### [facility] [address] [place], [address] Neutrophils/100 WBC (Bld) 58.2 % Normal 47-70 [facility] Comment on above: Performed By: #### L 500.4050, L100.0100, L502.0500, [id number] #### [facility] [address] [place], [address] Nucleated RBC (Bld) [#/Vol] 0 10*3/uL Normal 0-5 [facility] Comment on above: Performed By: #### L 500.4050, L100.0100, L502.0500, [id number] #### [facility] [address] [place], [address] Platelet mean volume (Bld) [Entitic vol] 9.2 fL Normal 6.2-12.0 [facility] Comment on above: Performed By: #### L 500.4050, L100.0100, L502.0500, [id number] #### [facility] [address] [place], [address] Platelets (Bld) [#/Vol] 274 10*3/uL Normal 150-450 [facility] Comment on above: Performed By: #### L 500.4050, L100.0100, L502.0500, [id number] #### [facility] [address] [place], [address] RBC (Bld) [#/Vol] 4.69 10*6/uL Normal 4.2-5.4 [facility] Comment on above: Performed By: #### L 500.4050, L100.0100, L502.0500, [id number] #### [facility] [address] [place], [address] RDW SD 40.4 fl Normal 35.1-43.9 [facility] Comment on above: Performed By: #### L 500.4050, L100.0100, L502.0500, [id number] #### [facility] [address] [place], [address] WBC (Bld) [#/Vol] 6.4 10*3/uL Normal 4.4-11.0 [facility] Comment on above: Performed By: #### L 500.4050, L100.0100, L502.0500, [id number] #### [facility] [address] [place], [address] Calculated very low density lipoprotein (VLDL) cholesterol measurementOrdered By: ARIA Valencia on 10-22-2024 Calculated very low density lipoprotein (VLDL) cholesterol measurement 36 mg/dL 5-40 [facility] Carbon dioxide, total [Moles /volume] in Central venous bloodOrdered By: Chele Valencia on 10-22-2024 CO2 [Moles/Vol] 21.5 mmol/L 21.0-32.0 [facility] Chloride assayOrdered By: VS Chele Sarah Navneet on 10-22-2024 Chloride [Moles/Vol] 102 mmol/L 98-108 [facility] Comprehensive Metabolic Prof ilon 10-22-2024 Albumin [Mass/Vol] 4.0 g/dL Normal 3.4-4.8 [facility] Comment on above: Performed By: #### L 500.4050, L100.0100, L502.0500, [id number] #### [facility] [address] [place], [address] Albumin/Globulin [Mass ratio] 1.4 {ratio} Normal 0.9-2.4 [facility] Comment on above: Performed By: #### L 500.4050, L100.0100, L502.0500, [id number] #### [facility] [address] [place], [address] ALK PHOS 86 U/L Normal 35-104 [facility] Comment on above: Performed By: #### L 500.4050, L100.0100, L502.0500, [id number] #### [facility] [address] [place], [address] ALT [Catalytic activity/Vol] 14 U/L Normal <=34 [facility] Comment on above: Performed By: #### L 500.4050, L100.0100, L502.0500, [id number] #### [facility] [address] [place], [address] AST [Catalytic activity/Vol] 16 U/L Normal <=31 [facility] Comment on above: Performed By: #### L 500.4050, L100.0100, L502.0500, [id number] #### [facility] [address] [place], [address] Bilirubin [Mass/Vol] 0.76 mg/dL Normal 0.00-1.30 [facility] Comment on above: Performed By: #### L 500.4050, L100.0100, L502.0500, [id number] #### [facility] [address] [place], [address] BUN/CRE 25.2 RATIO High 10-20 [facility] Comment on above: Performed By: #### L 500.4050, L100.0100, L502.0500, [id number] #### [facility] [address] [place], [address] Calcium [Mass/Vol] 9.1 mg/dL Normal 7.6-11.0 [facility] Comment on above: Performed By: #### L 500.4050, L100.0100, L502.0500, [id number] #### [facility] [address] [place], [address] Chloride [Moles/Vol] 102 mmol/L Normal 98-108 [facility] Comment on above: Performed By: #### L 500.4050, L100.0100, L502.0500, [id number] #### [facility] [address] [place], [address] CO2 [Moles/Vol] 21.5 mmol/L Normal 21.0-32.0 [facility] Comment on above: Performed By: #### L 500.4050, L100.0100, L502.0500, [id number] #### [facility] [address] [place], [address] Creatinine [Mass/Vol] 1.09 mg/dL Normal 0.70-1.20 [facility] Comment on above: Performed By: #### L 500.4050, L100.0100, L502.0500, [id number] #### [facility] [address] [place], [address] GAP 12 Normal 5-15 [facility] Comment on above: Performed By: #### L 500.4050, L100.0100, L502.0500, [id number] #### [facility] [address] [place], [address] GFR/1.73 sq M.predicted among non-blacks MDRD (S/P/Bld) [Vol rate/Area] 54 mL/min/{1.73_m2} Low >60 [facility] Comment on above: Result Comment: mL/m in/1.73m2 CKD-EPI Creatinine Equation (2020) Performed By: #### L 500.4050, L100.0100, L502.0500, [id number] #### [facility] [address] [place] [place], [address] Globulin (S) [Mass/Vol] 2.8 g/dL Normal 2.2-4.2 [facility] Comment on above: Performed By: #### L 500.4050, L100.0100, L502.0500, [id number] #### [facility] [address] [place], [address] Glucose [Mass/Vol] 166 mg/dL High 70-99 [facility] Comment on above: Performed By: #### L 500.4050, L100.0100, L502.0500, [id number] #### [facility] [address] [place], [address] Potassium [Moles/Vol] 4.7 mmol/L Normal 3.3-5.1 [facility] Comment on above: Performed By: #### L 500.4050, L100.0100, L502.0500, [id number] #### [facility] [address] [place], [address] Sodium [Moles/Vol] 135 mmol/L Normal 133-145 [facility] Comment on above: Performed By: #### L 500.4050, L100.0100, L502.0500, [id number] #### [facility] [address] [place], [address] T PROT 6.8 g/dL Normal 5.9-8.4 [facility] Comment on above: Performed By: #### L 500.4050, L100.0100, L502.0500, [id number] #### [facility] [address] [place], [address] Urea nitrogen [Mass/Vol] 28 mg/dL High 4-19 [facility] Comment on above: Performed By: #### L 500.4050, L100.0100, L502.0500, [id number] #### [facility] [address] [place], [address] Eosinophil percentageOrdered By: [facility] Sarah Valencia on 10-22-2024 Eosinophils/100 WBC (Bld) 2.5 % 0-5 [facility] Erythrocyte distribution wid th ratioOrdered By: [facility] Sarah Valencia on 10-22-2024 Erythrocyte distribution width (RBC) [Ratio] 12.9 % 11.6-14.6 [facility] Erythrocyte distribution wid th standard deviationOrdered By: [facility] Sarah Valencia on 10-22-2024 Erythrocyte distribution width (RBC) [Ratio] 40.4 fl 35.1-43.9 [facility] Glomerular filtration rate ( GFR) estimation/1.73 sq m using serum, plasma, or whole bOrdered By: [facility] Sarah Valencia on 10-22-2024 GFR/1.73 sq M.predicted among non-blacks MDRD (S/P/Bld) [Vol rate/Area] 54 mL/min/{1.73_m2} Low >60 [facility] Comment on above: mL/min/1.73m2 CKD-EP I Creatinine Equation (2020) Hematocrit Auto (Bld) [Volum e fraction]Ordered By: [facility] Sarah Valencia on 10-22-2024 Hematocrit (Bld) [Volume fraction] 40.7 % 37-47 [facility] Hemoglobin A1con 10-22-2024 HbA1c (Bld) [Mass fraction] 7.8 % High <=5.6 [facility] Comment on above: Result Comment: Norm al < 5.7 % Prediabetic 5.7 - 6.4 % Diabetic >or= 6.5 % Please note range changes. Performed By: #### L 500.4050, L100.0100, L502.0500, L501.9520 #### [facility] [address] [place], [place], [address] Hemoglobin A1c percentageOrd ered By: [facility] Sarah Valencia on 10-22-2024 HbA1c (Bld) [Mass fraction] 7.8 % High <5.7 [facility] Comment on above: Normal < 5.7 % Predi abetic 5.7 - 6.4 % Diabetic >or= 6.5 % Please note range changes. Hemoglobin measurementOrdere d By: [facility] Sarah Valencia on 10-22-2024 Hemoglobin (Bld) [Mass/Vol] 13.5 g/dL 12.0-15.0 [facility] Immature granulocytes/100 WB C Auto (Bld)Ordered By: [facility] Sarah Valencia on 10-22-2024 Immature granulocytes/100 WBC (Bld) 0.300 % 0.0-0.9 [facility] Comment on above: IG% - Immature Granu locytes (promyelocytes, myelocytes and metamyelocytes) > 1% indicates that a LEFT SHIFT is Present. LDL calc ser/plasOrdered By: [facility] Sarah Valencia on 10-22-2024 Cholesterol in LDL [Mass/Vol] 119 mg/dL [facility] Comment on above: Qauaqenoao=866-504 m g/dL & Higher Pxdq=862 mg/dL or greater Laboratory - Chemistry and C hemistry - challengeOrdered By: [facility] Sarah Valencia on 10-22-2024 AST [Catalytic activity/Vol] 16 U/L <32 [facility] Lipid Profileon 10-22-2024 CHOL:HDL 3.93 Normal [facility] Comment on above: Performed By: #### L 500.4050, L100.0100, L502.0500, L501.9520 #### [facility] [address] [place], [address] Cholesterol [Mass/Vol] 207 mg/dL High <=200 [facility] Comment on above: Result Comment: Chol esterol level, Desirable <200 mg/dL Borderline high cholesterol 200-239 mg/dL High cholesterol >=240 mg/dL Recommendations of the NCEP Adult Treatment Panel for the following risk-cutoff thresholds for the [place] population. Performed By: #### L 500.4050, L100.0100, L502.0500, L501.9520 #### [facility] [address] [place], [address] Cholesterol in HDL [Mass/Vol] 53 mg/dL Normal [facility] Comment on above: Result Comment: Joanie onal Cholesterol Education Program (NCEP) guidelines: <40 mg/dL: Low HDL-cholesterol (major risk factor for CHD) >= 60 mg/dL: High HDL-cholesterol (negative risk factor for CHD) HDL-cholesterol is affected by a number of factors, e.g. smoking, exercise, hormones, sex and age. Performed By: #### L 500.4050, L100.0100, L502.0500, L501.9520 #### [facility] [address] [place], [address] Cholesterol in LDL [Mass/Vol] 119 mg/dL Normal [facility] Comment on above: Result Comment: Bord apnwfc=964-829 mg/dL Higher Bryt=293 mg/dL or greater Performed By: #### L 500.4050, L100.0100, L502.0500, L501.9520 #### [facility] [address] [place], [address] Cholesterol in VLDL [Mass/Vol] 36 mg/dL Normal 5-40 [facility] Comment on above: Performed By: #### L 500.4050, L100.0100, L502.0500, L501.9520 #### [facility] [address] [place], [address] Triglyceride [Mass/Vol] 178 mg/dL Normal [facility] Comment on above: Result Comment: The drugs N-Acetylcysteine and Metamizole may falsely depress this assay. Normal range: <150 mg/dL Borderline High: 150-199 mg/dL High: 200-499 mg/dL Very High: >500 mg/dL Performed By: #### L 500.4050, L100.0100, L502.0500, L501.9520 #### [facility] [address] [place], [address] MCV (mean corpuscular volume ) determinationOrdered By: [facility] [facility] Sarah Valencia on 10-22-2024 MCV (RBC) [Entitic vol] 86.8 fL 81-99 [facility] Mean corpuscular hemoglobin (MCH) determinationOrdered By: [facility] Sarah Valencia on 10-22-2024 MCH (RBC) [Entitic mass] 28.8 pg 27.0-32.0 [facility] Mean corpuscular hemoglobin concentration (MCHC) determinationOrdered By: [facility] Sarah Valencia on 10-22-2024 MCHC (RBC) [Mass/Vol] 33.2 g/dL 32-36 [facility] Mean platelet volume determi nationOrdered By: [facility] Sarah Valencia on 10-22-2024 Platelet mean volume (Bld) [Entitic vol] 9.2 fL 6.2-12.0 [facility] Microalbumin,Random Urineon 10-22-2024 MICROALBUMIN,UR 66.5 mg/L Normal NO RANGE EST. [facility] Comment on above: Performed By: #### L 500.4050, L100.0100, L502.0500, L501.9520 #### [facility] [address] [place], [address] Monocyte percentageOrdered B y: [facility] Sarah Valencia on 10-22-2024 Monocytes/100 WBC (Bld) 6.1 % 0-10 [facility] Neutrophil percentageOrdered By: [facility] Sarah Valencia on 10-22-2024 Neutrophils/100 WBC (Bld) 58.2 % 47-70 [facility] Nucleated red blood cell per centageOrdered By: [facility] Sarah Valencia on 10-22-2024 Nucleated RBC/100 WBC (Bld) [Ratio] 0 % 0-5 [facility] Platelet countOrdered By: [facility] Sarah Valencia on 10-22-2024 Platelets (Bld) [#/Vol] 274 10*3/uL 150-450 [facility] Potassium measurement (mass/ volume)Ordered By: [facility] Sarah Valencia on 10-22-2024 Potassium (Unsp spec) [Mass/Vol] 4.7 mmol/L 3.3-5.1 [facility] RBC Auto (Bld) [#/Vol]Ordere d By: [facility] Sarah Valencia on 10-22-2024 RBC (Bld) [#/Vol] 4.69 10*6/uL 4.2-5.4 [facility] Screening total cholesterol/ high density lipoprotein (HDL) cholesterol ratioOrdered By: [facility] Sarah Valencia on 10-22-2024 Cholesterol.total/Vernell sterol in HDL [Mass ratio] 3.93 {ratio} [facility] Serum creatinine measurement (mass/volume)Ordered By: [facility] Sarah Valencia on 10-22-2024 Creatinine [Mass/Vol] 1.09 mg/dL 0.70-1.20 [facility] Serum globulin measurementOr dered By: [facility] Sarah Valencia on 10-22-2024 Globulin (S) [Mass/Vol] 2.8 g/dL 2.2-4.2 [facility] Serum glucose measurement (m ass/volume)Ordered By: [facility] Sarah Valencia on 10-22-2024 Glucose [Mass/Vol] 166 mg/dL High 70-99 [facility] Serum or plasma alanine toribio otransferase (ALT) measurementOrdered By: [facility] Sarah Valencia on 10-22-2024 ALT [Catalytic activity/Vol] 14 U/L <35 [facility] Serum or plasma albumin gavi urement (mass/volume)Ordered By: [facility] Sarah Navneet on 10-22-2024 Albumin [Mass/Vol] 4.0 g/dL 3.4-4.8 [facility] Serum or plasma albumin/glob ulin mass ratioOrdered By: [facility] Navneet on 10-22-2024 Albumin/Globulin [Mass ratio] 1.4 {ratio} 0.9-2.4 [facility] Serum or plasma alkaline david sphatase measurementOrdered By: [facility] Navneet on 10-22-2024 ALP [Catalytic activity/Vol] 86 U/L 35-104 [facility] Serum or plasma calcium gavi urement (mass/volume)Or[facility] By: [facility] on 10-22-2024 Calcium [Mass/Vol] 9.1 mg/dL 7.6-11.0 [facility] Serum or plasma cholesterol in HDL measurement (mass/volume)Ordered By: [facility] on 10-22-2024 Cholesterol in HDL [Mass/Vol] 53 mg/dL >40 [facility] Comment on above: National Cholesterol Education Program (NCEP) guidelines:<40 mg/dL: Low HDL-cholesterol (major risk factor for CHD)>= 60 mg/dL: High HDL-cholesterol (negative risk factor for CHD)HDL-cholesterol is affected by a number of factors, e.g. smoking, exercise, hormones, sex and age. Serum or plasma cholesterol measurement (mass/volume)Ordered By: [facility] Nav[facility] on 10-22-2024 Cholesterol [Mass/Vol] 207 mg/dL High <201 [facility] Comment on above: Cholesterol level, D esirable <200 mg/dLBorderline high cholesterol 200-239 mg/dLHigh cholesterol >=240 mg/dLRecommendations of the NCEP Adult Treatment Panel for the following risk-cutoff thresholds for the [place] population. Serum or plasma urea nitroge n measurement (mass/volume)Ordered By: [facility] Sarahamerico Valencia on 10-22-2024 Urea nitrogen [Mass/Vol] 28 mg/dL High 4-19 [facility] Sodium levelOrdered By: [facility] 10-22-2024 Sodium [Moles/Vol] 135 mmol/L 133-145 [facility] TSH DL <= 0.005 mIU/L QnOrde red By: [facility] Sarah Valencia on 10-22-2024 TSH Qn 3.300 uIU/mL 0.300-4.200 [facility] Thyroid Stim Hormone (TSH)on 10-22-2024 TSH 3.300 uIU/mL Normal 0.300-4.200 [facility] Comment on above: Performed By: #### L 500.4050, L100.0100, L502.0500, L501.9520 #### [facility] [address] [place], [address] Total proteinOrdered By: [facility] Sarah Valencia on 10-22-2024 Protein [Mass/Vol] 6.8 g/dL 5.9-8.4 [facility] Triglycerides measurementOrd ered By: [facility] Sarah Valencia on 10-22-2024 Triglyceride [Mass/Vol] 178 mg/dL <199 [facility] Comment on above: The drugs N-Acetylcy steine and Metamizole may falsely depress this assay. Normal range: <150 mg/dLBorderline High: 150-199 mg/dLHigh: 200-499 mg/dLVery High: >500 mg/dL Urine albumin measurement [facility] detection limit of 20 mg/L or less (mass/volume)Ordered By: [facility] Sarah Valencia on 10-22-2024 Albumin DL <= 20 mg/L (U) [Mass/Vol] 66.5 mg/L NO RANGE EST. [facility] Vitamin D,25 Hydroxyon 10-22 Vitamin D 25-OH 31.5 ng/mL Normal 30-100 [facility] Comment on above: Result Comment: Carly min D Status Deficiency: <20 ng/mL (50nmol/L) Insufficiency: 20-30 ng/mL (50-75 nmol/L) Sufficiency: 30-100 ng/mL (75-250 nmol/L) Toxicity: >100 ng/mL (>250 nmol/L) Performed By: #### L 500.4050, L100.0100, L502.0500, L501.9520 #### [facility] [address] [place], [address] White blood cell (WBC) count Ordered By: [facility] Sarah Navneet on 10-22-2024 WBC (Bld) [#/Vol] 6.4 10*3/uL 4.4-11.0 [facility] Endocrinology Visit Reporton 07-16-2024 Endocrinology Visit Report [facility] [address] [place] [address] OFFICE VISIT Date of Service: 07/16/24 MR#: [id number] Acct: [id number] Name: THIAGO PIERRE Rep #: [id number] : 1955 Provider: EVENS gates Age/Sex: 69/F [facility] [facility] Status: Signed Intake Vital Signs 04/16/24 13:27 07/02/24 13:02 07/16/24 14:30 Height 5 ft 4 in 5 ft 4 in 5 ft 4 in Weight: 257 lb BMI 44.1 BP 154/69 H 149/77 H Blood Pressure Location Rt brachial Lt brachial Position Sitting Sitting Respiration 18 Pulse 60 61 Pulse Source Monitor Monitor Temp 97.6 F L Pulse Oximetry (%) 98 94 Oxygen Delivery Method room air room air Comment patient refused weight Intake Visit Reasons: 3 M FU Chief Complaint: f/u diabetes Technical Specialist Required: No Accompanied by: Self Is patient in pain?: No Allergies red dye Allergy (Verified 07/16/24 14:33) Hives Nvvvqml-WPP-SkP Reductase Inhibitor (Zhaazzs-Mvi-Aww Reductase Inhibitor) Adverse Reaction (Severe, Verified 07/16/24 14:33) Myalgias semaglutide (From Ozempic) Adverse Reaction (Verified 07/16/24 14:33) Vomiting Medications ???Medication ???Instructions ???Recorded ???Confirmed ???Type gabapentin 300 mg capsule 600 mg PO QHS NERVE PAIN 01/12/16 07/16/24 History aspirin 81 mg tablet,delayed 81 mg PO DAILY@0800 HEALTH 7 07/16/24 History release MAINTENANCE cholecalciferol (vitamin D3) 50 2,000 unit PO PAYNE SUPPLEMENT 07/16/24 History mcg (2,000 unit) capsule cetirizine 10 mg tablet (Zyrtec) 10 mg PO DAILY PRN Allergies 07/2307/16/24 History magnesium chloride 71.5 mg 71.5 mg PO DAILY suppliment 07/16/24 History (magnesium chloride) tablet,delayed release (Slow-Mag) meclizine 25 mg tablet 25 mg PO TID PRN dizziness 1 07/16/24 History Handicap Parking Placard #1 ea 05/09/22 07/16/24 Rx ondansetron 4 mg disintegrating 4 mg PO Q6H PRN nausea and 07/16/24 Rx tablet vomiting #7 tabs ezetimibe 10 mg tablet (Zetia) 10 mg PO DAILY cholesterol #90 tab s 02/01/23 07/16/24 Rx omeprazole 20 mg tablet,delayed 40 mg PO DAILY GERD 07/02/2307/16 History release glipizide 5 mg tablet 5 mg PO DAILY DM 07/04/23 07/16/24 History carvedilol 25 mg tablet 25 mg PO BID #180 tabs 12/31/23 Rx furosemide 20 mg tablet 20 mg PO QDAY water pill #30 tabs 12/31/23 07/16/24 Rx insulin aspart U-100 100 unit/mL 12 unit subcut 1700 Diabetes 12/3007/16/24 History (3 mL) subcutaneous pen amlodipine 5 mg tablet 5 mg PO DAILY blood pressure 02/1607/16/24 History buspirone 7.5 mg tablet 7.5 mg PO BID 03/13/24 07/16/24 Hi story dapagliflozin propanediol 10 mg 10 mg PO DAILY HF #90 tabs 4 07/16/24 Rx tablet (Farxiga) sacubitril 97 mg-valsartan 103 mg 1 tab PO BID HF #180 tabs 4 07/16/24 Rx tablet (Entresto) sertraline 25 mg tablet 25 mg PO QDAY 03/13/24 07/16/24 Hi story cyclobenzaprine 10 mg tablet 5 mg PO TID PRN Muscle Spasm 04/1607/16/24 History dulaglutide 0.75 mg/0.5 mL 0.75 mg (0.5 mL) subcut QWEEK #2 m L 04/21/24 07/16/24 Rx subcutaneous pen injector (Trulicity) insulin aspart U-100 100 unit/mL 15 unit (0.15 mL) subcut TID 04/2107/16/24 Rx (3 mL) subcutaneous pen (Novolog diabetes #40.5 mL FlexPen U-100 Insulin aspart) insulin degludec 100 unit/mL (3 18 unit (0.18 mL) subcut .hs 04/2107/16/24 Rx mL) subcutaneous pen (Tresiba diabetes #16.2 mL FlexTouch U-100 insulin) Have you fallen in the past year?: No [facility] Medical History (Updated 07/17/24 @ 08:52 by DEO VasquezC) Essential hypertension Elevated troponin History of diabetes mellitus Hx of cardiomyopathy Dysarthria Medication reaction Intractable nausea and vomiting Dizziness Depression Near syncope Vertigo Carotid artery disease Pure hypercholesterolemia 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 Nonrheumatic mitral (valve) insufficiency Dilated cardiomyopathy Chronic systolic (congestive) heart failure BALWINDER (acute kidney injury) Abnormal electrocardiogram Systolic CHF, acute Hypertension Obesity (BMI 30-39.9) Hyperlipidemia Diabetes mellitus, type II NICOLLE (obstructive sleep apnea) Surgical History History of eye surgery History of left heart catheterization (LHC) ( 05/26/15) Status post foot surgery Status post breast reduction S/P hysterectomy History of bilateral breast reduction surgery History of bilateral foot surgery History of hysterectomy Cardiac defibrillator in situ Family History Father (more content not included)... Normal [facility] Absolute lymphocyte countOrd ered By: [facility] Sarah Valencia on 07-02-2024 Lymphocytes Auto (Unsp spec) [#/Vol] 2.23 10*3/uL 0.83-4.51 [facility] Absolute neutrophil countOrd ered By: [facility] Sarah Valencia on 07-02-2024 Neutrophils (Bld) [#/Vol] 4.9 10*3/uL 2.0-7.7 [facility] Albumin to globulin ratioOrd ered By: [facility] Sarah Valencia on 07-02-2024 Albumin/Globulin [Mass ratio] 0.9 {ratio} Normal 0.9-2.4 [facility] Comment on above: Order Comment: [facility]AKA MALLORY ORDER [facility] LIPID AND LIVER Performed By: #### L 500.4050, L100.0100, L502.0500, L501.9520 #### [facility] [address] [place], [place], [address] Automated lymphocyte count a s percentage of total leukocytesOrdered By: [facility] Sarah Navneet on 07-02-2024 Lymphocytes/100 WBC Auto (Unsp spec) 28.6 % 19-41 [facility] Basophil percentageOrdered B y: [facility] Sarah Navneet on 07-02-2024 Basophils/100 WBC (Bld) 0.9 % 0-1 [facility] Bilirubin directOrdered By: [facility] Sarah Navneet on 07-02-2024 Bilirubin.direct [Mass/Vol] 0.16 mg/dL Normal 0.00-0.30 [facility] Comment on above: Order Comment: CHAKA MALLORY ORDER [facility] LIPID AND LIVER Performed By: #### L 500.4050, L100.0100, L502.0500, L501.9520 #### [facility] [address] [place], [address] Bilirubin, totalOrdered By: [facility] Sarah Navneet on 07-02-2024 Bilirubin [Mass/Vol] 1.00 mg/dL Normal 0.20-1.00 [facility] Comment on above: For patients on eltr ombopag therapy, use of Dimension Steen TBIL is not recommended. Order Comment: CHAKA MALLORY ORDER ALL LABSNP.DONTAEOBERTS ORDERED LIPID AND LIVER Result Comment: For patients on eltrombopag therapy, use of Dimension Steen TBIL is not recommended. Performed By: #### L 500.4050, L100.0100, L502.0500, L501.9520 #### [facility] [address] [place], [address] Blood urea nitrogen (BUN)/cr eatinine ratioOrdered By: [facility] Sarah Valencia on 07-02-2024 Urea nitrogen/Creatinine [Mass ratio] 22.8 mg/mg High 10-20 [facility] CBC W/Diff, Automatedon 06-12 Absolute Lymph 2.23 X10 3/uL Normal 0.83-4.51 [facility] Comment on above: Order Comment: CHAKA MALLORY ORDER ALL LABSNP.KROBERTS ORDERED LIPID AND LIVER Performed By: #### L 500.4050, L100.0100, L502.0500, L501.9520 #### [facility] [address] [place], [address] Absolute Neut 4.9 X10 3/uL Normal 2.0-7.7 [facility] Comment on above: Order Comment: CHAKA MALLORY ORDER ALL LABSNP.KROBERTS ORDERED LIPID AND LIVER Performed By: #### L 500.4050, L100.0100, L502.0500, L501.9520 #### [facility] [address] [place], [address] Basophils/100 WBC (Bld) 0.9 % Normal 0-1 [facility] Comment on above: Order Comment: CHAKA MALLORY ORDER ALL LABSNP.KROBERTS ORDERED LIPID AND LIVER Performed By: #### L 500.4050, L100.0100, L502.0500, L501.9520 #### [facility] [address] [place], [address] Eosinophils/100 WBC (Bld) 1.8 % Normal 0-5 [facility] Comment on above: Order Comment: CHAKA MALLORY ORDER ALL LABSNP.KROBERTS ORDERED LIPID AND LIVER Performed By: #### L 500.4050, L100.0100, L502.0500, L501.9520 #### [facility] [address] [place], [address] Erythrocyte distribution width (RBC) [Ratio] 13.3 % Normal 11.6-14.6 [facility] Comment on above: Order Comment: CHAKA MALLORY ORDER ALL LABSNP.KROBERTS ORDERED LIPID AND LIVER Performed By: #### L 500.4050, L100.0100, L502.0500, L501.9520 #### [facility] [address] [place], [address] Hematocrit (Bld) [Volume fraction] 42.2 % Normal 37-47 [facility] Comment on above: Order Comment: CHAKA MALLORY ORDER ALL LABSNP.KROBERTS ORDERED LIPID AND LIVER Performed By: #### L 500.4050, L100.0100, L502.0500, L501.9520 #### [facility] [address] [place], [address] Hemoglobin (Bld) [Mass/Vol] 13.5 g/dL Normal 12.0-15.0 [facility] Comment on above: Order Comment: CHAKA MALLORY ORDER ALL LABSNP.KROBERTS ORDERED LIPID AND LIVER Performed By: #### L 500.4050, L100.0100, L502.0500, L501.9520 #### [facility] [address] [place], [address] IG% 0.400 Normal 0.0-0.9 [facility] Comment on above: Order Comment: CHAKA MALLORY ORDER ALL LABSNP.KROBERTS ORDERED LIPID AND LIVER Result Comment: IG% - Immature Granulocytes (promyelocytes, myelocytes and metamyelocytes) > 1% indicates that a LEFT SHIFT is Present. Performed By: #### L 500.4050, L100.0100, L502.0500, L501.9520 #### [facility] [address] [place], [address] Lymphocytes/100 WBC (Bld) 28.6 % Normal 19-41 [facility] Comment on above: Order Comment: CHAKA MALLORY ORDER ALL LABSNP.KROBERTS ORDERED LIPID AND LIVER Performed By: #### L 500.4050, L100.0100, L502.0500, L501.9520 #### [facility] [address] [place], [address] MCH (RBC) [Entitic mass] 28.2 pg Normal 27.0-32.0 [facility] Comment on above: Order Comment: CHAKA MALLORY ORDER ALL LABSNP.KROBERTS ORDERED LIPID AND LIVER Performed By: #### L 500.4050, L100.0100, L502.0500, L501.9520 #### [facility] [address] [place], [address] MCHC (RBC) [Mass/Vol] 32.0 g/dL Normal 32-36 [facility] Comment on above: Order Comment: CHAKA MALLORY ORDER ALL LABSNP.KROBERTS ORDERED LIPID AND LIVER Performed By: #### L 500.4050, L100.0100, L502.0500, L501.9520 #### [facility] [address] [place], [address] MCV (RBC) [Entitic vol] 88.3 fL Normal 81-99 [facility] Comment on above: Order Comment: CHAKA MALLORY ORDER ALL LABSNP.KROBERTS ORDERED LIPID AND LIVER Performed By: #### L 500.4050, L100.0100, L502.0500, L501.9520 #### [facility] [address] [place], [address] Monocytes/100 WBC (Bld) 5.6 % Normal 0-10 [facility] Comment on above: Order Comment: CHAKA MALLORY ORDER ALL LABSNP.KROBERTS ORDERED LIPID AND LIVER Performed By: #### L 500.4050, L100.0100, L502.0500, L501.9520 #### [facility] [address] [place], [address] Neutrophils/100 WBC (Bld) 62.7 % Normal 47-70 [facility] Comment on above: Order Comment: CHAKA MALLORY ORDER ALL LABSNP.KROBERTS ORDERED LIPID AND LIVER Performed By: #### L 500.4050, L100.0100, L502.0500, L501.9520 #### [facility] [address] [place], [address] Nucleated RBC (Bld) [#/Vol] 0 10*3/uL Normal 0-5 [facility] Comment on above: Order Comment: CHAKA MALLORY ORDER ALL LABSNP.KROBERTS ORDERED LIPID AND LIVER Performed By: #### L 500.4050, L100.0100, L502.0500, L501.9520 #### [facility] [address] [place], [address] Platelet mean volume (Bld) [Entitic vol] 9.0 fL Normal 6.2-12.0 [facility] Comment on above: Order Comment: CHAKA MALLORY ORDER ALL LABSNP.KROBERTS ORDERED LIPID AND LIVER Performed By: #### L 500.4050, L100.0100, L502.0500, L501.9520 #### [facility] [address] [place], [address] Platelets (Bld) [#/Vol] 279 10*3/uL Normal 150-450 [facility] Comment on above: Order Comment: CHAKA MALLORY ORDER ALL LABSNP.KROBERTS ORDERED LIPID AND LIVER Performed By: #### L 500.4050, L100.0100, L502.0500, L501.9520 #### [facility] [address] [place], [address] RBC (Bld) [#/Vol] 4.78 10*6/uL Normal 4.2-5.4 [facility] Comment on above: Order Comment: CHAKA MALLORY ORDER ALL LABSNP.KROBERTS ORDERED LIPID AND LIVER Performed By: #### L 500.4050, L100.0100, L502.0500, L501.9520 #### [facility] [address] [place], [address] RDW SD 42.9 fl Normal 35.1-43.9 [facility] Comment on above: Order Comment: CHAKA MALLORY ORDER ALL LABSNP.DONTAEOBERTS ORDERED LIPID AND LIVER Performed By: #### L 500.4050, L100.0100, L502.0500, L501.9520 #### [facility] [address] [place], [address] WBC (Bld) [#/Vol] 7.8 10*3/uL Normal 4.4-11.0 [facility] Comment on above: Order Comment: CHAKA MALLORY ORDER ALL LABSNP.DONTAEOBERTS ORDERED LIPID AND LIVER Performed By: #### L 500.4050, L100.0100, L502.0500, L501.9520 #### [facility] [address] [place], [address] Carbon dioxide measurementOr dered By: [facility] Sarah Valencia on 07-02-2024 CO2 [Moles/Vol] 25.0 mmol/L Normal 21.0-32.0 [facility] Comment on above: Order Comment: CHAKA MALLORY ORDER ALL LABSNP.DONTAEOBERTS ORDERED LIPID AND LIVER Performed By: #### L 500.4050, L100.0100, L502.0500, L501.9520 #### [facility] [address] [place], [address] Cardiology Visit Reporton Cardiology Visit Report [facility] [address] [place], [place] [address] OFFICE VISIT Date of Service: 07/02/24 MR#: [id number] Acct: [id number] Name: THIAGO PIERRE Rep #: [id number] : 1955 Provider: CHAPIN Jimenez Age/Sex: 69/F Location: [facility] [place] Status: Signed HPI HPI History of Present Illness Details: THIAGO FLORES, is a 69 year old white female who presents to the office today for an outpatient cardiovascular hospital follow-up visit. 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 Patient presented to emergency room on 02/17/2024 with complaints of abdominal pain, nausea and vomiting after taking Ozempic. During her ER visit she was treated with IV fluids and Zofran. She was also given several doses of morphine. She had started having difficulty with her speech she underwent a CT of her brain which showed chronic changes as did her CTA with no acute bleed or signs of an acute stroke. She was admitted for further evaluation. Cardiology was consulted for elevated troponins. She underwent a cardiac catheterization which demonstrated mild disease in the left main coronary artery, and mild disease in the left anterior descending artery. Preserved ejection fraction with apical hypokinesis present suggestive of Takotsubo pattern. From a cardiac standpoint, patient is doing well. She does not have any chest discomfort/heaviness/ti ghtness. Her exercise tolerance is stable for her age. She does not have any worsening symptoms of shortness of breath. She does not have any orthopnea. She denies PND. She does not have any symptoms of congestive heart failure. She does not have any palpitations that she is aware of. She does not have any lightheadedness or dizziness. She does not have any near- syncope or syncope. She does not have any lower extremity edema. She does not have any symptoms of claudication. Intake Vital Signs 03/13/24 10:17 04/16/24 13:27 07/02/24 13:02 Height 5 ft 4 in 5 ft 4 in 5 ft 4 in Weight: 249 lb 6 oz BMI 42.7 BP 123/77 H 154/69 H Blood Pressure Location Rt brachial Rt brachial Position Sitting Sitting Respiration 18 Pulse 60 60 Pulse Source Monitor Monitor Temp 97.6 F L Temperature Source Oral Pulse Oximetry (%) 96 98 Oxygen Delivery Method room air room air Comment patient refused weight Intake Visit Reasons: 3 M FU Is patient in pain?: No Allergies red dye Allergy (Verified 07/02/24 13:03) Hives Gwmghjg-AZP-VuK Reductase Inhibitor (Aczskvp-Rxm-Fhc Reductase Inhibitor) Adverse Reaction (Severe, Verified 07/02/24 13:03) Myalgias semaglutide (From Ozempic) Adverse Reaction (Verified 07/02/24 13:03) Vomiting Medications ???Medication ???Instructions ???Recorded ???Confirmed ???Type gabapentin 300 mg capsule 600 mg PO QHS NERVE PAIN 01/12/16 07/02/24 History aspirin 81 mg tablet,delayed 81 mg PO DAILY@0800 HEALTH 01/26/17 07/02/24 History release MAINTENANCE cholecalciferol (vitamin D3) 50 2,000 unit PO PAYNE SUPPLEMENT 01/26/17 07/02/24 History mcg (2,000 unit) capsule cetirizine 10 mg tablet (Zyrtec) 10 mg PO DAILY PRN Allergies 07/23/20 07/02/24 History magnesium chloride 71.5 mg 71.5 mg PO DAILY suppliment 07/23/20 07/02/24 History (magnesium chloride) tablet,delayed release (Slow-Mag) meclizine 25 mg tablet 25 mg PO TID PRN dizziness 07/23/20 07/02/24 History Handicap Parking Placard #1 ea 05/09/22 07/02/24 Rx ondansetron 4 mg disintegrating 4 mg PO Q6H PRN nausea and 06/01/22 07/02/24 Rx tablet vomiting #7 tabs ezetimibe 10 mg tablet (Zetia) 10 mg PO DAILY cholesterol #90 tabs 02/01/23 07/02/24 Rx omeprazole 20 mg tablet,delayed 40 mg PO DAILY GERD 07/02/23 07/02/24 History release glipizide 5 mg tablet 5 mg PO DAILY DM 07/04/23 07/02/24 History carvedilol 25 mg tablet 25 mg PO BID #180 tabs 12/31/23 07/02/24 Rx furosemide 20 mg tablet 20 mg PO QDAY water pill #30 tabs 12/31/23 07/02/24 Rx insulin aspart U-100 100 unit/mL 12 unit subcut 1700 Diabetes 12/31/23 07/02/24 History (3 mL) subcutaneous pen amlodipine 5 mg tablet 5 mg PO DAILY blood pressure 02/17/24 07/02/24 History buspirone 7.5 mg tablet 7.5 mg PO BID 03/13/24 07/02/24 History dapagliflozin propanediol 10 mg 10 mg PO DAILY HF #90 tabs 03/13/24 07/02/24 Rx tablet (Farxiga) sacubitril 97 mg-valsartan 103 mg 1 tab PO BID HF #180 tabs 03/13/24 07/02/24 Rx tablet (Entresto) sertraline 25 mg tablet 25 mg PO QDAY 03/13/24 07/02/24 History cyclobenzaprine 10 mg tablet 5 mg PO TID PRN Muscle Spasm 04/16/24 07/02/24 History dulaglutide 0.75 mg/0.5 mL 0.75 mg (0.5 mL) subcut QWEEK #2 mL 04/21/24 07/02/24 Rx subc (more content not included)... Normal [facility] Chloride measurementOrdered By: [facility] Sarah Valencia on 07-02-2024 Chloride [Moles/Vol] 103 mmol/L Normal 98-107 [facility] Comment on above: Order Comment: CHAKA MALLORY ORDER ALL LABSNPHAYDEN ORDERED LIPID AND LIVER Performed By: #### L 500.4050, L100.0100, L502.0500, L501.9520 #### [facility] [address] [place], [address] Comprehensive Metabolic Prof ilon 07-02-2024 ALK P 78 U/L Normal 45-117 [facility] Comment on above: Order Comment: CHAKA MALLORY ORDER ALL LABSNP.MARQUES ORDERED LIPID AND LIVER Performed By: #### L 500.4050, L100.0100, L502.0500, L501.9520 #### [facility] [address] [place], [address] BUN/CRE 22.8 RATIO High 10-20 [facility] Comment on above: Order Comment: CHAKA MALLORY ORDER ALL LABSNP.KROBERTS ORDERED LIPID AND LIVER Performed By: #### L 500.4050, L100.0100, L502.0500, L501.9520 #### [facility] [address] [place], [address] CA,Total 9.4 mg/dL Normal 8.5-10.1 [facility] Comment on above: Order Comment: CHAKA MALLORY ORDER ALL LABSNP.KROBERTS ORDERED LIPID AND LIVER Performed By: #### L 500.4050, L100.0100, L502.0500, L501.9520 #### [facility] [address] [place], [address] EST GFR - AA 77 mL/min Normal >60 [facility] Comment on above: Order Comment: CHAKA MALLORY ORDER ALL LABSNP.KROBERTS ORDERED LIPID AND LIVER Result Comment: Afri can Trinidadian GFR Calc Performed By: #### L 500.4050, L100.0100, L502.0500, L501.9520 #### [facility] [address] [place], [address] GAP 8 Normal 5-15 [facility] Comment on above: Order Comment: CHAKA MALLORY ORDER ALL LABSNP.KROBERTS ORDERED LIPID AND LIVER Performed By: #### L 500.4050, L100.0100, L502.0500, L501.9520 #### [facility] [address] [place], [address] T PROT 6.8 g/dL Normal 6.4-8.2 [facility] Comment on above: Order Comment: CHAKA MALLORY ORDER ALL LABSNP.KROBERTS ORDERED LIPID AND LIVER Performed By: #### L 500.4050, L100.0100, L502.0500, L501.9520 #### [facility] [address] [place], [address] Comprehensive Metabolic Prof ilOrdered By: [facility] Sarah Valencia on 07-02-2024 AST [Catalytic activity/Vol] 10 U/L Low 15-37 [facility] Comment on above: Order Comment: CHAKA MALLORY ORDER ALL LABSNPHAYDEN ORDERED LIPID AND LIVER Performed By: #### L 500.4050, L100.0100, L502.0500, L501.9520 #### [facility] [address] [place], [place], [id number] Eosinophil percentageOrdered By: [facility] Sarah Valencia on 07-02-2024 Eosinophils/100 WBC (Bld) 1.8 % 0-5 [facility] Erythrocyte distribution wid th ratioOrdered By: [facility] Care[facility] Valencia on 07-02-2024 Erythrocyte distribution width (RBC) [Ratio] 13.3 % 11.6-14.6 [facility] Erythrocyte distribution wid th standard deviationOrdered By: [facility] CareSarah Navneet on 07-02-2024 Erythrocyte distribution width (RBC) [Ratio] 42.9 fl 35.1-43.9 [facility] Glomerular filtration rate ( GFR) estimationOrdered By: [facility] Sarah Valencia on 07-02-2024 GFR/1.73 sq M.predicted among non-blacks MDRD (S/P/Bld) [Vol rate/Area] 64 mL/min/{1.73_m2} Normal >60 [facility] Comment on above: Non- GFR Calc Order Comment: CHAKA MALLORY ORDER ALL LABSDIVYA ORDERED LIPID AND LIVER Result Comment: Non- GFR Calc Performed By: #### L 500.4050, L100.0100, L502.0500, L501.9520 #### [facility] [address] [place], [place], [id number] Glucose measurementOrdered B y: [facility] Sarah Anvneet on 07-02-2024 Glucose [Mass/Vol] 154 mg/dL High 74-106 [facility] Comment on above: Fasting Glucose resu lt greater than or equal to 126 mg/dL suggests DIABETES MELLITUS per A.D.A. criteria. Order Comment: CHAKA MALLORY ORDER ALL LABSNP.DONTAEMARIA ALEJANDRA ORDERED LIPID AND LIVER Result Comment: Fast ing Glucose result greater than or equal to 126 mg/dL suggests DIABETES MELLITUS per A.D.A. criteria. Performed By: #### L 500.4050, L100.0100, L502.0500, L501.9520 #### [facility] [address] [place], [address] Hematocrit Auto (Bld) [Volum e fraction]Ordered By: [facility] Sarah Valencia on 07-02-2024 Hematocrit (Bld) [Volume fraction] 42.2 % 37-47 [facility] Hemoglobin A1con 07-02-2024 HbA1c (Bld) [Mass fraction] 7.0 % High 3.8-5.6 [facility] Comment on above: Order Comment: CHAKA MALLORY ORDER ALL LABSNP.MARQUES ORDERED LIPID AND LIVER Result Comment: Norm al < 5.7 % Prediabetic 5.7 - 6.4 % Diabetic >or= 6.5 % Please note range changes. Performed By: #### L 500.4050, L100.0100, L502.0500, L501.9520 #### [facility] [address] [place], [address] Hemoglobin A1c percentageOrd ered By: [facility] Sarah Valencia on 07-02-2024 HbA1c (Bld) [Mass fraction] 7.0 % High 3.8-5.6 [facility] Comment on above: Normal < 5.7 % Predi abetic 5.7 - 6.4 % Diabetic >or= 6.5 % Please note range changes. Hemoglobin measurementOrdere d By: [facility] Sarah Valencia on 07-02-2024 Hemoglobin (Bld) [Mass/Vol] 13.5 g/dL 12.0-15.0 [facility] High density lipoprotein (HD L) measurementOrdered By: [facility] CareSarahmariluz Valencia on 07-02-2024 Cholesterol in HDL [Mass/Vol] 55 mg/dL Normal [facility] Comment on above: The drugs N-Acetylcy steine and Metamizole may falsely depress this assay. Reference Range HDL <40 mg/dL Low HDL Cholesterol HDL >or= 60 mg/dL High HDL Cholesterol Order Comment: CHAKA MALLORY ORDER ALL LABSNP.KROBERTS ORDERED LIPID AND LIVER Result Comment: The drugs N-Acetylcysteine and Metamizole may falsely depress this assay. Reference Range HDL <40 mg/dL Low HDL Cholesterol HDL >or= 60 mg/dL High HDL Cholesterol Performed By: #### L 500.4050, L100.0100, L502.0500, L501.9520 #### [facility] [address] [place], [address] Immature granulocytes/100 WB C Auto (Bld)Ordered By: [facility] Sarah Valencia on 07-02-2024 Immature granulocytes/100 WBC (Bld) 0.400 % 0.0-0.9 [facility] Comment on above: IG% - Immature Granu locytes (promyelocytes, myelocytes and metamyelocytes) > 1% indicates that a LEFT SHIFT is Present. Lipid Profileon 07-02-2024 Cholesterol in VLDL [Mass/Vol] 38 mg/dL Normal 5-40 [facility] Comment on above: Order Comment: CHAKA MALLORY ORDER ALL LABSNP.KROBERTS ORDERED LIPID AND LIVER Performed By: #### L 500.4050, L100.0100, L502.0500, L501.9520 #### [facility] [address] [place], [address] Low density lipoprotein (LDL ) cholesterol measurementOrdered By: [facility] Sarah Valencia on 07-02-2024 Cholesterol in LDL [Mass/Vol] 110 mg/dL Normal 0-130 [facility] Comment on above: Order Comment: CHAKA MALLORY ORDER ALL LABSNP.KROBERTS ORDERED LIPID AND LIVER Performed By: #### L 500.4050, L100.0100, L502.0500, L501.9520 #### [facility] [address] [place], [address] MCV (mean corpuscular volume ) determinationOrdered By: [facility] Sarah Valencia on 01-22-2025 MCV (RBC) [Entitic vol] 88.3 fL 81-99 [facility] Mean corpuscular hemoglobin (MCH) determinationOrdered By: [facility] Sarah Valencia on 07-02-2024 MCH (RBC) [Entitic mass] 28.2 pg 27.0-32.0 [facility] Mean corpuscular hemoglobin concentration (MCHC) determinationOrdered By: [facility] Sarah Valencia on 07-02-2024 MCHC (RBC) [Mass/Vol] 32.0 g/dL 32-36 [facility] Mean platelet volume determi nationOrdered By: [facility] Sarah Valencia on 07-02-2024 Platelet mean volume (Bld) [Entitic vol] 9.0 fL 6.2-12.0 [facility] Microalbumin,Random Urineon 07-02-2024 MICROALBUMIN,UR 778.0 mg/L Normal NO RANGE EST. [facility] Comment on above: Order Comment: CHAKA MALLORY ORDER ALL LABSNPHAYDEN ORDERED LIPID AND LIVER Performed By: #### L 500.4050, L100.0100, L502.0500, L501.9520 #### [facility] [address] [place], [place], [id number] Monocyte percentageOrdered B y: [facility] Sarah Valencia on 07-02-2024 Monocytes/100 WBC (Bld) 5.6 % 0-10 [facility] Neutrophil percentageOrdered By: [facility] Sarah Valencia on 07-02-2024 Neutrophils/100 WBC (Bld) 62.7 % 47-70 [facility] Nucleated red blood cell per centageOrdered By: [facility] Sarah Valencia on 07-02-2024 Nucleated RBC/100 WBC (Bld) [Ratio] 0 % 0-5 [facility] Platelet countOrdered By: [facility] Sarah Valencia on 07-02-2024 Platelets (Bld) [#/Vol] 279 10*3/uL 150-450 [facility] Potassium measurementOrdered By: [facility] Sarah Valencia on 07-02-2024 Potassium [Moles/Vol] 4.2 mmol/L Normal 3.5-5.1 [facility] Comment on above: Order Comment: CHAKA MALLORY ORDER ALL LABSNP.KROBERTS ORDERED LIPID AND LIVER Performed By: #### L 500.4050, L100.0100, L502.0500, L501.9520 #### [facility] [address] [place], [address] RBC Auto (Bld) [#/Vol]Ordere d By: [facility] Sarah Valencia on 07-02-2024 RBC (Bld) [#/Vol] 4.78 10*6/uL 4.2-5.4 [facility] Serum anion gap measurementO rdered By: [facility] Sarah Valencia on 07-02-2024 Anion gap [Moles/Vol] 8 mmol/L 5-15 [facility] Serum globulin measurementOr dered By: [facility] Sarah Valencia on 07-02-2024 Globulin (S) [Mass/Vol] 3.6 g/dL Normal 2.2-4.2 [facility] Comment on above: Order Comment: CHAKA MALLORY ORDER ALL LABSNP.KROBER ORDERED LIPID AND LIVER Performed By: #### L 500.4050, L100.0100, L502.0500, L501.9520 #### [facility] [address] [place], [address] Serum or plasma alanine toribio otransferase (ALT) measurementOrdered By: [facility] Sarah Valencia on 07-02-2024 ALT [Catalytic activity/Vol] 24 U/L Normal 13-56 [facility] Comment on above: Order Comment: CHAKA MALLORY ORDER ALL LABSNP.KROBERTS ORDERED LIPID AND LIVER Performed By: #### L 500.4050, L100.0100, L502.0500, L501.9520 #### [facility] [address] [place], [address] Serum or plasma albumin gavi urement (mass/volume)Ordered By: [facility] Sarah Valencia on 07-02-2024 Albumin [Mass/Vol] 3.2 g/dL Normal 3.2-5.0 [facility] Comment on above: Order Comment: CHAKA MALLORY ORDER ALL LABSNP.KROBERTS ORDERED LIPID AND LIVER Performed By: #### L 500.4050, L100.0100, L502.0500, L501.9520 #### [facility] [address] [place], [place], [id number] Serum or plasma alkaline david sphatase measurementOrdered By: [facility] Sarah Valencia on 07-02-2024 ALP [Catalytic activity/Vol] 78 U/L 45-117 [facility] Serum or plasma calcium gavi urement (mass/volume)Ordered By: [facility] CareSarah[facility] Valencia on 07-02-2024 Calcium [Mass/Vol] 9.4 mg/dL 8.5-10.1 [facility] Serum or plasma cholesterol measurement (mass/volume)Ordered By: [facility] CareSarah[facility] Valencia on 07-02-2024 Cholesterol [Mass/Vol] 203 mg/dL High 200 [facility] Comment on above: <200 mg/dL Desirable 200-240 mg/dL Borderline >240 mg/dL High Risk Order Comment: CHAKA MALLORY ORDER ALL LABSNP.[facility]EST. [facility] ORDERED [facility]IPID AND LIVER Result Comment: <200 mg/dL Desirable 200-240 mg/dL Borderline >240 mg/dL High Risk Performed By: #### L 500.4050, L100.0100, L502.0500, L501.9520 #### [facility] [address] [place], [place], [id number] Serum or plasma creatinine m easurement (mass/volume)Ordered By: [facility] Sarah Valencia on 07-02-2024 Creatinine [Mass/Vol] 0.92 mg/dL Normal 0.55-1.02 [facility] Comment on above: The validity of the calculated GFR & GFRAA in patients over 70 years has not been determined. Clinical correlation is essential. Order Comment: CHAKA MALLORY ORDER ALL LABSNP.KROBERTS ORDERED LIPID AND LIVER Result Comment: The validity of the calculated GFR GFRAA in patients over 70 years has not been determined. Clinical correlation is essential. Performed By: #### L 500.4050, L100.0100, L502.0500, L501.9520 #### [facility] [address] [place], [address] Serum or plasma thyroid stim ulating hormone (TSH) measurement (units/volume)Ordered By: [facility] Sarahamerico Valencia on 07-02-2024 TSH Qn 2.320 uIU/mL 0.358-3.740 [facility] Serum or plasma urea nitroge n measurement (mass/volume)Ordered By: [facility] Sarah Navneet on 07-02-2024 Urea nitrogen [Mass/Vol] 21 mg/dL High 7-18 [facility] Comment on above: Order Comment: CHAKA MALLORY ORDER ALL LABSNP.MARQUES ORDERED LIPID AND LIVER Performed By: #### L 500.4050, L100.0100, L502.0500, L501.9520 #### [facility] [address] [place], [address] Sodium levelOrdered By: [facility] Sarah Navneet on 07-02-2024 Sodium [Moles/Vol] 136 mmol/L Normal 136-145 [facility] Comment on above: Order Comment: CHAKA MLALORY ORDER ALL LABSNP.MYRONTS ORDERED LIPID AND LIVER Performed By: #### L 500.4050, L100.0100, L502.0500, L501.9520 #### [facility] [address] [place], [address] Thyroid Stim Hormone (TSH)on 07-02-2024 TSH 2.320 uIU/mL Normal 0.358-3.740 [facility] Comment on above: Order Comment: CHAKA MALLORY ORDER ALL LABSNP.MYRONTS ORDERED LIPID AND LIVER Performed By: #### L 500.4050, L100.0100, L502.0500, L501.9520 #### [facility] [address] [place], [address] Total proteinOrdered By: [facility] Sarah Navneet on 07-02-2024 Protein [Mass/Vol] 6.8 g/dL 6.4-8.2 [facility] Triglycerides measurementOrd ered By: [facility] Sarah Valencia on 07-02-2024 Triglyceride [Mass/Vol] 189 mg/dL Normal [facility] Comment on above: The drugs N-Acetylcy steine and Metamizole may falsely depress this assay.Serum Triglycerides Reference Interval Normal <150 mg/dL Borderline high 150 - 199 mg/dL High 200 - 499 mg/dL Very High > or = 500 mg/dL Order Comment: CHAKA MALLORY ORDER ALL LABSNP.MARQUES ORDERED LIPID AND LIVER Result Comment: The drugs N-Acetylcysteine and Metamizole may falsely depress this assay. Serum Triglycerides Reference Interval Normal <150 mg/dL Borderline high 150 - 199 mg/dL High 200 - 499 mg/dL Very High > or = 500 mg/dL Performed By: #### L 500.4050, L100.0100, L502.0500, L501.9520 #### [facility] [address] [place], [address] Very low density lipoprotein (VLDL) cholesterol measurementOrdered By: [facility] Sarah Valencia on 07-02-2024 Very low density lipoprotein (VLDL) cholesterol measurement 38 mg/dL 5-40 [facility] Vitamin D,25 Hydroxyon 07-02 Vitamin D 25-OH 36.4 ng/mL Normal [facility] Comment on above: Order Comment: CHAKA MALLORY ORDER ALL LABSNP.DONTAEOBERLES ORDERED LIPID AND LIVER Result Comment: Carly min D 25(OH) Status Range Deficiency <20 ng/mL (50nmol/L) Insufficiency 20 - 30 ng/mL (50 - 75 nmol/L) Sufficiency 30 - 100 ng/mL (75 - 250 nmol/L) Toxicity >100 ng/mL (>250 nmol/L) Performed By: #### L 500.4050, L100.0100, L502.0500, L501.9520 #### [facility] [address] [place], [address] White blood cell (WBC) count Ordered By: [facility] Sarah Valencia on 07-02-2024 WBC (Bld) [#/Vol] 7.8 10*3/uL 4.4-11.0 [facility] Endocrinology Visit Reporton 04-16-2024 Endocrinology Visit Report [facility] [address] [place] [address] OFFICE VISIT Date of Service: 04/16/24 MR#: [id number] Acct: [id number] Name: THIAGO PIERRE Rep #: [id number] : 1955 Provider: EVENS gates Age/Sex: 68/F [place] [facility] [place]: Signed Intake Vital Signs 01/17/24 10:12 03/13/24 10:17 04/16/24 13:27 Height 5 ft 5 in 5 ft 4 in 5 ft 4 in Weight: 249 lb 6 oz BMI 42.7 BP 123/77 H Blood Pressure Location Rt brachial Position Sitting Pulse 60 Pulse Source Monitor Pulse Oximetry (%) 96 Oxygen Delivery Method room air Intake Visit Reasons: 3 M FU Chief Complaint: f/u diabetes Is patient in pain?: No Allergies red dye Allergy (Verified 03/13/24 10:11) Hives Oafwstl-JFH-DnO Reductase Inhibitor (Spykuso-Mfe-Vzk Reductase Inhibitor) Adverse Reaction (Severe, Verified 03/13/24 10:11) Myalgias semaglutide (From Ozempic) Adverse Reaction (Verified 04/16/24 13:33) Vomiting Medications ???Medication ???Instructions ???Recorded ???Confirmed ???Type gabapentin 300 mg capsule 600 mg PO QHS NERVE PAIN 01/12/16 04/16/24 History aspirin 81 mg tablet,delayed 81 mg PO DAILY@0800 HEALTH 01/26/17 04/16/24 History release MAINTENANCE cholecalciferol (vitamin D3) 50 2,000 unit PO PAYNE SUPPLEMENT 01/26/17 04/16/24 History mcg (2,000 unit) capsule cetirizine 10 mg tablet (Zyrtec) 10 mg PO DAILY PRN Allergies 07/23/20 04/16/24 History magnesium chloride 71.5 mg 71.5 mg PO DAILY suppliment 07/23/20 04/16/24 History (magnesium chloride) tablet,delayed release (Slow-Mag) meclizine 25 mg tablet 25 mg PO TID PRN dizziness 07/23/20 04/16/24 History Handicap Parking Placard #1 ea 05/09/22 02/18/24 Rx ondansetron 4 mg disintegrating 4 mg PO Q6H PRN nausea and 06/01/22 04/16/24 Rx tablet vomiting #7 tabs ezetimibe 10 mg tablet (Zetia) 10 mg PO DAILY cholesterol #90 tabs 02/01/23 04/16/24 Rx omeprazole 20 mg tablet,delayed 40 mg PO DAILY GERD 07/02/23 04/16/24 History release glipizide 5 mg tablet 5 mg PO DAILY DM 07/04/23 04/16/24 History carvedilol 25 mg tablet 25 mg PO BID #180 tabs 12/31/23 04/16/24 Rx furosemide 20 mg tablet 20 mg PO QDAY water pill #30 tabs 12/31/23 04/16/24 Rx insulin aspart U-100 100 unit/mL 12 unit subcut 1700 Diabetes 12/31/23 04/16/24 History (3 mL) subcutaneous pen amlodipine 5 mg tablet 5 mg PO DAILY blood pressure 02/17/24 04/16/24 History buspirone 7.5 mg tablet 7.5 mg PO BID 03/13/24 04/16/24 History dapagliflozin propanediol 10 mg 10 mg PO DAILY HF #90 tabs 03/13/24 04/16/24 Rx tablet (Farxiga) sacubitril 97 mg-valsartan 103 mg 1 tab PO BID HF #180 tabs 03/13/24 04/16/24 Rx tablet (Entresto) sertraline 25 mg tablet 25 mg PO QDAY 03/13/24 04/16/24 History cyclobenzaprine 10 mg tablet 5 mg PO TID PRN Muscle Spasm 04/16/24 History dulaglutide 0.75 mg/0.5 mL 0.75 mg (0.5 mL) subcut QWEEK #2 mL 04/21/24 Rx subcutaneous pen injector (Trulicity) insulin aspart U-100 100 unit/mL 15 unit (0.15 mL) subcut TID 04/21/24 Rx (3 mL) subcutaneous pen (Novolog diabetes #40.5 mL FlexPen U-100 Insulin aspart) insulin degludec 100 unit/mL (3 18 unit (0.18 mL) subcut .hs 04/21/24 Rx mL) subcutaneous pen (Tresiba diabetes #16.2 mL FlexTouch U-100 insulin) Have you fallen in the past year?: No PFSH Medical History (Reviewed 03/13/24 @ 10:21 by Lico Noel [employer], [employer]) Elevated troponin History of diabetes mellitus Hx of cardiomyopathy Dysarthria Medication reaction Intractable nausea and vomiting Dizziness Depression Near syncope Vertigo Carotid artery disease Pure hypercholesterolemia Essential hypertension 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 Nonrheumatic mitral (valve) insufficiency Dilated cardiomyopathy Chronic systolic (congestive) heart failure BALWINDER (acute kidney injury) Abnormal electrocardiogram Systolic CHF, acute Hypertension Obesity (BMI 30-39.9) Hyperlipidemia Diabetes mellitus, type II NICOLLE (obstructive sleep apnea) Surgical History (Reviewed 03/13/24 @ 10:21 by Lico Neol [employer], [employer]) History of eye surgery History of left heart catheterization (LHC) ( 05/26/15) Status post foot surgery Status post breast reduction S/P hysterectomy History of bilateral breast reduction surgery History of bilateral foot surgery History of hysterectomy Cardiac defibrillator in situ Family History Father , Lung cancer Lung cancer Mother , Breast cancer Breast cancer Brother Cancer lymphoma Social History household members: spouse Smoking Status: Former smoker quit date: 06/11/06 (more content not included)... Normal [facility] Venous Duplex US, Unilateral on 04-10-2024 Venous Duplex US, Unilateral [facility] [address] [place] [address] Venous Duplex US, Unilateral 04/10/24 0852 MR#: [id number] Acct: [id number] Name: THIAGO PIERRE Rep #: [id number] : 1955 68 From: Hank Noble MD Attending Dr: ARIA Long, [employer] Status : REG CLI Ordering Dr: Sarah Valencia [employer] Date: 04/10 Location: [facility] Sex: F C Admitted: Reason For Study: Left arm pain Left Proximal Left jugular vein is spontaneous, widely patent, phasic, with no intraluminal echogenicity noted. Left subclavian vein is spontaneous, widely patent, phasic, with no intraluminal echogenicity noted. Left Arm Left axillary vein is spontaneous, patent, phasic, competent, compressible and demonstrates augmentation. Left brachial vein is compressible. Left cephalic vein is compressible. Left basilic vein is compressible. Left Lower Arm Left radial vein is compressible. Left ulnar vein is compressible. Patient Safety Preliminary report faxed to Navneet HORNER. VL/Venous Duplex US, Unilateral Interpretation Summary Deep veins of the left upper extremity are patent and compressible segmentally. There is no evidence of deep vein thrombosis. The superficial veins of the left upper extremity, the basilic and cephalic veins, are patent and compressible. There is no evidence of left upper extremity superficial thrombophlebitis involving the veins imaged. Ordering Physician: Sarah Valencia Referring Physician: Sarah Valencia Performed By: Faustina Cobian, Dee Dee ??? 04/10/24 1630 Date Hank Noble MD CC: [facility] Valencia Date Dictated: 04/10/24 0852 Date Transcribed: 04/10/241629 Cutter And Edge Trimmer: Signed Normal [facility] Cardiology Visit Reporton Cardiology Visit Report [facility] [address] [place] [address] OFFICE VISIT Date of Service: 03/13/24 MR#: [id number] Acct: [id number] Name: THIAGO PIERRE Rep #: [id number] : 1955 Provider: EVENS trivedi Age/Sex: 68/F Location: [facility] [place] Status: Signed [facility] History of Present Illness Details: THIAGO FLORSE is a 68 year old white female who presents to the office today for an outpatient cardiovascular hospital follow-up visit. 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 Patient presented to emergency room on 02/17/2024 with complaints of abdominal pain, nausea and vomiting after taking Ozempic. During her ER visit she was treated with IV fluids and Zofran. She was also given several doses of morphine. She had started having difficulty with her speech she underwent a CT of her brain which showed chronic changes as did her CTA with no acute bleed or signs of an acute stroke. She was admitted for further evaluation. Cardiology was consulted for elevated troponins. She underwent a cardiac catheterization which demonstrated mild disease in the left main coronary artery, and mild disease in the left anterior descending artery. Preserved ejection fraction with apical hypokinesis present suggestive of Takotsubo pattern. From a cardiac standpoint, the patient is doing well. She denies any palpitations, chest pain, pressure or heaviness. She denies SOB, Orthopnea, and PND. She does not have bleeding issues; no blood in urine, stool or nosebleeds. She denies any decrease in energy level, myalgias, or claudication. She does not have edema, or sudden weight gain. She does acknowledge occasional lightheadedness. She denies dizziness, syncopal or near syncopal episodes, and headaches. She states that before her ER visit, she had stopped majority of her medications because she couldn't afford them. 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 Specialist Required: No Is patient in pain?: No Allergies red dye Allergy (Verified 03/13/24 10:11) Hives Ykqahxd-ZZB-PdB Reductase Inhibitor (Evcjahl-Dew-Pgv Reductase Inhibitor) Adverse Reaction (Severe, Verified 03/13/24 10:11) Myalgias Medications ???Medication ???Instructions ???Recorded ???Confirmed ???Type gabapentin 300 mg capsule 600 mg PO QHS NERVE PAIN 01/12/16 02/18/24 History aspirin 81 mg tablet,delayed 81 mg PO DAILY@0800 HEALTH 01/26/17 02/17/24 History release MAINTENANCE cholecalciferol (vitamin D3) 50 2,000 unit PO PAYNE SUPPLEMENT 01/26/17 02/18/24 History mcg (2,000 unit) capsule fluoxetine 40 mg capsule (Prozac) 40 mg PO DAILY depression 11/01/18 03/13/24 History cetirizine 10 mg tablet (Zyrtec) 10 mg PO DAILY PRN Allergies 07/23/20 02/17/24 History magnesium chloride 71.5 mg 71.5 mg PO DAILY suppliment 07/23/20 02/18/24 History (magnesium chloride) tablet,delayed release (Slow-Mag) meclizine 25 mg tablet 25 mg PO TID PRN dizziness 07/23/20 02/17/24 History Handicap Parking Placard #1 ea 05/09/22 02/18/24 Rx ondansetron 4 mg disintegrating 4 mg PO Q6H PRN nausea and 06/01/22 02/18/24 Rx tablet vomiting #7 tabs ezetimibe 10 mg tablet (Zetia) 10 mg PO DAILY cholesterol #90 tabs 02/01/23 02/17/24 Rx omeprazole 20 mg tablet,delayed 40 mg PO DAILY GERD 07/02/23 02/17/24 History release glipizide 5 mg tablet 5 mg PO DAILY DM 07/04/23 02/17/24 History cyclobenzaprine 10 mg tablet 5 mg (1/2 x 10 mg) PO TID PRN 09/13/23 02/17/24 Rx Muscle Spasm #20 TABLETS carvedilol 25 mg tablet 25 mg PO BID #180 tabs 12/31/23 02/17/24 Rx furosemide 20 mg tablet 20 mg PO QDAY water pill #30 tabs 12/31/23 02/17/24 Rx insulin aspart U-100 100 unit/mL 12 unit subcut 1700 Diabetes 12/31/23 02/18/24 History (3 mL) subcutaneous pen amlodipine 5 mg tablet 5 mg PO DAILY blood pressure 02/17/24 02/17/24 History insulin aspart U-100 100 unit/mL 9 unit subcut .breakfast and lunch 02/18/24 02/18/24 History (3 mL) subcutaneous pen (Novolog diabetes FlexPen U-100 Insulin aspart) insulin degludec 100 unit/mL (3 18 unit subcut .hs diabetes 02/18/24 02/18/24 History mL) subcutaneous pen (Tresiba FlexTouch U-100 insulin) semaglutide 1 mg/dose (4 mg/3 mL) 1 mg subcut .weekly diabetes 02/18/24 02/18/24 History subcutaneous pen injector (Ozempic) buspirone 7.5 mg tablet 7.5 mg PO BID 03/13/24 03/13/24 History dapagli (more content not included)... Normal [facility] Bedside Glucoseon 02-18-2024 FINGERSTICK GLU 223 mg/dL High 74-106 [facility] Comment on above: Result Comment: AMARI GEMENT OF PATIENT CARE PER NURSING PROTOCOL Performed By: #### L 501.080 ####[facility] [address] [facility] [address] FINGERSTICK GLU 291 mg/dL High -[address] [place] [address] Comment on above: Result Comment: AMARI GEMENT OF PATIENT CARE PER NURSING PROTOCOL Performed By: #### L 501.080 #### [facility] [address] [facility] [address] FINGERSTICK GLU 317 mg/dL High [address] [place] [address] Comment on above: Result Comment: AMARI GEMENT OF PATIENT CARE PER NURSING PROTOCOL Performed By: #### L 501.080 ####[facility] [address] [place], [address] FINGERSTICK GLU 301 mg/dL High -106 [facility] Comment on above: Result Comment: AMARI GEMENT OF PATIENT CARE PER NURSING PROTOCOL Performed By: #### L 501.080 #### [facility] [address] [place], [address] Brain without Contraston Brain without Contrast [facility] Imaging Services [address] [place] [address] Brain without Contrast MR#: [id number] Acct: [id number] Name: THIAGO PIERRE Rep #: [id number] : 1955 F 68 From: Shahram Watson PCP: ARIA Long, ST[employer] DERRICKMAN [employer] RIGGER-C Status: ADM IN Study: Brain without Contrast Date of Exam: 02/18/24 Exam# [id number] Ordering Dr: [place] [id number] STUDY: MRI BRAIN WITHOUT CONTRAST REASON FOR EXAM: Female, 68 years old. DYSARTHRIA, POSSIBLE STROKE, confusion TECHNIQUE: Standardized multiplanar fat and water weighted pulse sequences were obtained. MRI examination of the brain obtained with standard protocol including multiplanar multiecho noncontrast imaging. Contrast: No contrast administered. COMPARISON: Prior study dated: 02/17/2024 HEMISPHERES, CEREBELLUM AND BRAINSTEM: 1. The cerebral parenchyma, ventricular system, subarachnoid spaces have normal configuration and density. There is a normal gyral pattern. There is normal trejo/white differentiation. No midline shift.. 2. Diffuse involutional change and moderate to extensive chronic deep white matter disease. No evidence of fluid restriction or acute ischemic change. No evidence of hemosiderin deposition or hemorrhage. There is a dilated perivascular space in the RIGHT lenticular nucleus. 3. No intraparenchymal mass, hemorrhage, or acute territorial infarct. 4. The cerebellum, brainstem, basilar and suprasellar cisterns have normal appearance. No Chiari malformation. PITUITARY: Infundibulum and pituitary have normal configuration. Midline structures appear normal. CSF SPACES: Appropriate for age. No hydrocephalus. Basal cisterns are patent. VESSELS: 1. There are normal flow voids noted in the great vessels at the skull base ORBITS AND PARANASAL SINUSES: 1. The globes have normal configuration however abnormal signal is present in the posterior chamber in a configuration suspicious of a retinal detachment. The ocular lenses on the LEFT is in normal position. Postoperative changes of RIGHT cataract repair. 2. Diffuse mucosal thickening in the ethmoid air cells. BONY ELEMENTS: Bony elements of the cranial vault, facial skeleton and skull base have normal appearance. SCALP AND SOFT TISSUES: Normal appearance of the soft tissues of the scalp and the visualized face OTHER: None MRI/Brain without Contrast IMPRESSION: 1. Diffuse involutional change and moderate to extensive chronic microvascular deep white matter disease. 2. No mass, hemorrhage, or acute territorial infarct. 3. Abnormal appearance of the LEFT globe suspicious of retinal detachment and intraocular hemorrhage. Normal appearance of the LEFT ocular lens. Electronically Signed: Shahram Ortiz MD at 17:59 EDT , CC: [facility] Valencia; Dr. José Antonio Emerson DO Cutter And Edge Trimmer: Signed Normal [facility] CBC W/Diff, Automatedon 09-0 Absolute Lymph 0.77 X10 3/uL Low 0.83-4.51 [facility] Comment on above: Performed By: #### L 501.9985, L100.0100, L500.4050, L500.4100, L501.9520 ####[facility] [address] [place], [address] Absolute Neut 11.7 X10 3/uL High 2.0-7.7 [facility] Comment on above: Performed By: #### L 501.9985, L100.0100, L500.4050, L500.4100, L501.9520 ####[facility] [address] [place], [address] Basophils/100 WBC (Bld) 0.2 % Normal 0-1 [facility] Comment on above: Performed By: #### L 501.9985, L100.0100, L500.4050, L500.4100, L501.9520 ####[facility] [address] [place], [address] Eosinophils/100 WBC (Bld) 0.1 % Normal 0-5 [facility] Comment on above: Performed By: #### L 501.9985, L100.0100, L500.4050, L500.4100, L501.9520 ####[facility] [address] [place], [address] Erythrocyte distribution width (RBC) [Ratio] 12.9 % Normal 11.6-14.6 [facility] Comment on above: Performed By: #### L 501.9985, L100.0100, L500.4050, L500.4100, L501.9520 ####[facility] [address] [place], [address] Hematocrit (Bld) [Volume fraction] 49.0 % High 37-47 [facility] Comment on above: Performed By: #### L 501.9985, L100.0100, L500.4050, L500.4100, L501.9520 ####[facility] [address] [place], [address] Hemoglobin (Bld) [Mass/Vol] 15.8 g/dL High 12.0-15.0 [facility] Comment on above: Performed By: #### L 501.9985, L100.0100, L500.4050, L500.4100, L501.9520 ####[facility] [address] [place], [address] IG% 0.200 Normal 0.0-0.9 [facility] Comment on above: Result Comment: IG% - Immature Granulocytes (promyelocytes, myelocytes and metamyelocytes) > 1% indicates that a LEFT SHIFT is Present. Performed By: #### L 501.9985, L100.0100, L500.4050, L500.4100, L501.9520 ####[facility] [address] [place], [address] Lymphocytes/100 WBC (Bld) 6.0 % Low 19-41 [facility] Comment on above: Performed By: #### L 501.9985, L100.0100, L500.4050, L500.4100, L501.9520 ####[facility] [address] [place], [address] MCH (RBC) [Entitic mass] 27.8 pg Normal 27.0-32.0 [facility] Comment on above: Performed By: #### L 501.9985, L100.0100, L500.4050, L500.4100, L501.9520 ####[facility] [address] [place], [address] MCHC (RBC) [Mass/Vol] 32.2 g/dL Normal 32-36 [facility] Comment on above: Performed By: #### L 501.9985, L100.0100, L500.4050, L500.4100, L501.9520 ####[facility] [address] [place], [address] MCV (RBC) [Entitic vol] 86.3 fL Normal 81-99 [facility] Comment on above: Performed By: #### L 501.9985, L100.0100, L500.4050, L500.4100, L501.9520 ####[facility] [address] [place], [address] Monocytes/100 WBC (Bld) 2.5 % Normal 0-10 [facility] Comment on above: Performed By: #### L 501.9985, L100.0100, L500.4050, L500.4100, L501.9520 ####[facility] [address] [place], [address] Neutrophils/100 WBC (Bld) 91.0 % High 47-70 [facility] Comment on above: Performed By: #### L 501.9985, L100.0100, L500.4050, L500.4100, L501.9520 ####[facility] [address] [place], [address] Nucleated RBC (Bld) [#/Vol] 0 10*3/uL Normal 0-5 [facility] Comment on above: Performed By: #### L 501.9985, L100.0100, L500.4050, L500.4100, L501.9520 ####[facility] [address] [place], [address] Platelet mean volume (Bld) [Entitic vol] 9.5 fL Normal 6.2-12.0 [facility] Comment on above: Performed By: #### L 501.9985, L100.0100, L500.4050, L500.4100, L501.9520 ####[facility] [address] [place], [address] Platelets (Bld) [#/Vol] 308 10*3/uL Normal 150-450 [facility] Comment on above: Performed By: #### L 501.9985, L100.0100, L500.4050, L500.4100, L501.9520 ####[facility] [address] [place], [address] RBC (Bld) [#/Vol] 5.68 10*6/uL High 4.2-5.4 [facility] Comment on above: Performed By: #### L 501.9985, L100.0100, L500.4050, L500.4100, L501.9520 ####[facility] [address] [place], [address] RDW SD 40.1 fl Normal 35.1-43.9 [facility] Comment on above: Performed By: #### L 501.9985, L100.0100, L500.4050, L500.4100, L501.9520 ####[facility] [address] [place], [address] WBC (Bld) [#/Vol] 12.9 10*3/uL High 4.4-11.0 [facility] Comment on above: Performed By: #### L 501.9985, L100.0100, L500.4050, L500.4100, L501.9520 ####[facility] [address] [place], [address] Cardiac Cath Diagnosticon Cardiac Cath Diagnostic [facility] Imaging Services [address] [place] [address] Cardiac Cath Diagnostic MR#: [id number] Acct: [id number] Name: THIAGO PIERRE Rep #: [id number] : 1955 68 From: Misbah Marcum MD PCP: Sarah Valencia Chele, [employer] Status:ADM IN Patient Name: THIAGO PIERRE Study Date: 02/18/2024 Performing: Misbah Marcum MD Ht: 64 inches 162.56 cm : 1955 Wt: 241 lbs 109.18 kg Age: 68 Gender: female BSA: 2.12 PROCEDURE(S) PERFORMED DC01-(87294)LHC/COR/LV CLINICAL PROFILE AND INDICATIONS Indications: Suspected CAD Heart Failure: None Stress/Imaging Stress/Image Study Performed: No CAD Presentations: Symptom unlikely to be ischemic. CONCLUSIONS Nonobstructive coronary artery disease but with diffuse mild to moderate disease noted in the left anterior descending artery Cardiomyopathy: Takotsubo RECOMMENDATIONS Medical therapy DESCRIPTION OF PROCEDURE The patient arrived to the procedure lab. The risks and benefits of the procedure as well as a full description of our services here and current unavailability of surgical backup were fully explained to the patient and/or their significant other prior to the catheterization. The Timeout was completed, verifying the correct patient and procedure. The patient's procedural site was prepped and draped in the usual fashion. Local anesthetic was given subcutaneously to right radial region with Lidocaine 2%. Using a modified Seldinger technique, arterial access was obtained via the right radial artery, a 6Fr sheath was inserted. Left Coronary Artery selective angiography was performed in multiple views using a 5 Fr. 4.0 Darwin catheter. Right Coronary Artery selective angiography was then performed in multiple views using a 5 Fr. 4.0 Darwin catheter. Left Ventriculography was performed in RDZ projection using a 5 Fr. Pigtail catheter. LV to AO pullback pressures were then recorded.The arterial sheath was pulled and a TR Band was applied for hemostasis w/ 12ml/air CORONARY ANGIOGRAPHY DOMINANCE: Right Dominant LEFT HEART ASSESSMENT Left Ventricular Ejection Fraction: by LV Gram 55 % Apical Hypokinesis - Moderate Normal Left Ventricular systolic function LEFT MAIN: Mild luminal irregularities LEFT ANTERIOR DESCENDING ARTERY: This is a medium size vessel with diffuse moderate disease noted in the midsegment as well as the distal LAD. CIRCUMFLEX ARTERY: Moderate luminal irregularities up to 50% RAMUS: Mild luminal irregularities less than 30% RIGHT CORONARY ARTERY: Moderate luminal irregularities up to 50% COMPLICATIONS No Complications PROCEDURE MEDICATIONS Versed 1 mg IV Fentanyl 50 mcg IV Oxygen: 2 L/min via nasal cannula Oxygen: 4 L/min via nasal cannula Aspirin (325mg) 1 Tabs PO @ 02/18/2024 10:15:38 Heparin given IA 02/18/2024 10:27:24 Verapamil 2.5mg, Ntg 100mcgs, 3000 units of Heparin given IA 02/18/2024 10:27:24 SUMMARY OF HEMODYNAMIC DATA Time AIR REST ECG 10:16:11 AO 144/74 (102) SA 10:46:47 LV 153/10, 13 10:53:11 LV 152/11, 18 10:53:17 LV 152/12, 19 10:54:21 LV 147/7, 10 10:54:27 LVp 158/7, 11 10:54:32 AOp 158/69 (104) 10:54:37 Signed By Misbah Marcum MD On 02/18/2024 11:18:54 Misbah Marcum MD 02/18/24 1119 Date Misbah Castro Signature: Date (if indicated) CC: Chele Valencia; Dr. Misbah Marcum MD; Dr. José Antonio Emerson DO Date Dictated: 02/18/24 1025 Date Transcribed: 02/18/24 1055 Cutter And Edge Trimmer: CO Signed Normal [facility] Comprehensive Metabolic Prof ilon 02-18-2024 Albumin [Mass/Vol] 3.5 g/dL Normal 3.2-5.0 [facility] Comment on above: Performed By: #### L 501.9985, L100.0100, L500.4050, L500.4100, L501.9520 ####[facility] [address] [place], [address] Albumin/Globulin [Mass ratio] 0.9 {ratio} Normal 0.9-2.4 [facility] Comment on above: Performed By: #### L 501.9985, L100.0100, L500.4050, L500.4100, L501.9520 ####[facility] [address] [place], [address] ALK P 102 U/L Normal 45-117 [facility] Comment on above: Performed By: #### L 501.9985, L100.0100, L500.4050, L500.4100, L501.9520 ####[facility] [address] [place], [address] ALT [Catalytic activity/Vol] 16 U/L Normal 13-56 [facility] Comment on above: Performed By: #### L 501.9985, L100.0100, L500.4050, L500.4100, L501.9520 ####[facility] [address] [place], [address] AST [Catalytic activity/Vol] 12 U/L Low 15-37 [facility] Comment on above: Performed By: #### L 501.9985, L100.0100, L500.4050, L500.4100, L501.9520 ####[facility] [address] [place], [address] Bilirubin [Mass/Vol] 1.40 mg/dL High 0.20-1.00 [facility] Comment on above: Result Comment: For patients on eltrombopag therapy, use of Dimension Steen TBIL is not recommended. Performed By: #### L 501.9985, L100.0100, L500.4050, L500.4100, L501.9520 ####[facility] [address] [place], [address] BUN/CRE 15.5 RATIO Normal 10-20 [facility] Comment on above: Performed By: #### L 501.9985, L100.0100, L500.4050, L500.4100, L501.9520 ####[facility] [address] [place], [address] CA,Total 8.7 mg/dL Normal 8.5-10.1 [facility] Comment on above: Performed By: #### L 501.9985, L100.0100, L500.4050, L500.4100, L501.9520 ####[facility] [address] [place], [address] Chloride [Moles/Vol] 99 mmol/L Normal 98-107 [facility] Comment on above: Performed By: #### L 501.9985, L100.0100, L500.4050, L500.4100, L501.9520 ####[facility] [address] [place], [address] CO2 [Moles/Vol] 22.0 mmol/L Normal 21.0-32.0 [facility] Comment on above: Performed By: #### L 501.9985, L100.0100, L500.4050, L500.4100, L501.9520 ####[facility] [address] [place], [address] Creatinine [Mass/Vol] 0.90 mg/dL Normal 0.55-1.02 [facility] Comment on above: Result Comment: The validity of the calculated GFR GFRAA in patients over 70 years has not been determined. Clinical correlation is essential. Performed By: #### L 501.9985, L100.0100, L500.4050, L500.4100, L501.9520 ####[facility] [address] [place], [address] ECRCL 69.77 ml/min Normal [facility] Comment on above: Performed By: #### L 501.9985, L100.0100, L500.4050, L500.4100, L501.9520 ####[facility] [address] [place], [address] EST GFR - AA 79 mL/min Normal >60 [facility] Comment on above: Result Comment: Afri can Trinidadian GFR Calc Performed By: #### L 501.9985, L100.0100, L500.4050, L500.4100, L501.9520 ####[facility] [address] [place], [address] GAP 14 Normal 5-15 [facility] Comment on above: Performed By: #### L 501.9985, L100.0100, L500.4050, L500.4100, L501.9520 ####[facility] [address] [place], [address] GFR/1.73 sq M.predicted among non-blacks MDRD (S/P/Bld) [Vol rate/Area] 65 mL/min/{1.73_m2} Normal >60 [facility] Comment on above: Result Comment: Non- GFR Calc Performed By: #### L 501.9985, L100.0100, L500.4050, L500.4100, L501.9520 ####[facility] [address] [place], [address] Globulin (S) [Mass/Vol] 3.7 g/dL Normal 2.2-4.2 [facility] Comment on above: Performed By: #### L 501.9985, L100.0100, L500.4050, L500.4100, L501.9520 ####[facility] [address] [place], [address] Glucose [Mass/Vol] 306 mg/dL High 74-106 [facility] Comment on above: Result Comment: Gluc ose result greater than or equal to 200 mg/dL suggests DIABETES MELLITUS per A.D.A. criteria. Performed By: #### L 501.9985, L100.0100, L500.4050, L500.4100, L501.9520 ####[facility] [address] [place], [address] Potassium [Moles/Vol] 3.7 mmol/L Normal 3.5-5.1 [facility] Comment on above: Performed By: #### L 501.9985, L100.0100, L500.4050, L500.4100, L501.9520 ####[facility] [address] [place], [address] Sodium [Moles/Vol] 135 mmol/L Low 136-145 [facility] Comment on above: Performed By: #### L 501.9985, L100.0100, L500.4050, L500.4100, L501.9520 ####[facility] [address] [place], [address] T PROT 7.2 g/dL Normal 6.4-8.2 [facility] Comment on above: Performed By: #### L 501.9985, L100.0100, L500.4050, L500.4100, L501.9520 ####[facility] [address] [place], [address] Urea nitrogen [Mass/Vol] 14 mg/dL Normal 7-18 [facility] Comment on above: Performed By: #### L 501.9985, L100.0100, L500.4050, L500.4100, L501.9520 ####[facility] [address] [place], [address] Consultation - Cardiologyon 02-18-2024 Consultation - Cardiology [facility] Medical Records Department [address] [place] [address] Consultation - Cardiology 02/18/24 0810 MR#: [id number] Acct: [id number] Name: THIAGO PIERRE Rep #: [id number] : 1955 68 From: Misbah Marcum MD PCP: Sarah Valencia Chele, [employer] Status:ADM IN Location: [place] [address] Assessment Plan Assessment/Plan (1) Elevated troponin: PLAN: She does present with elevated troponin and significant hypertension. I am not sure how the hypertension is related to the Ozempic but it certainly could cause the demand ischemia. May be helpful to define the coronary anatomy to exclude obstructive disease and depending on the findings further recommendations will be made. * Depending on the results of the cardiac catheterization further recommendations will be made. * * Addendum: Cardiac catheterization today demonstrated mild disease in the left main coronary artery, mild disease in the left anterior descending artery. Ramus intermedius with no significant disease. Left circumflex artery with no significant disease. Dominant right coronary artery with mild disease. Preserved ejection fraction with apical hypokinesis present. The above is suggestive of a Takotsubo pattern. Will pursue aggressive medical therapy. (2) Hx of cardiomyopathy: PLAN: She does have a history of cardiomyopathy. This will be reevaluated with the echocardiogram. She appears to be on guideline directed medical therapy with beta-rosa, Arni, and other medications. (3) Essential hypertension: PLAN: Her blood pressure was noted to be elevated but it is better controlled this morning. Will try and optimize her medical therapy. (4) Cardiac defibrillator in situ: PLAN: She does have a implantable biventricular defibrillator. This has been interrogated recently and was noted to have adequate and appropriate function. No changes will be advocated at this time. HPI Consult Data Date of Consult: 02/18/24 HPI Narrative HPI Narrative: THIAGO PIERRE, is a 68 F who presents to the emergency room with severe nausea and vomiting which started approximately an hour after she took her Ozempic dose. She says that this the first time this has happened. She was seen in the emergency room and was noted to be ventricular paced and cardiac enzymes were noted to be abnormal. 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 She does have a history of a cardiomyopathy with an estimated ejection fraction which is still suboptimal. She is on guideline directed medical therapy. She recently had her defibrillator interrogated. It appears that her most recent echocardiogram demonstrated an ejection fraction of approximately 50%. She denies any chest pain or paroxysmal nocturnal dyspnea pedal edema no neck arm or jaw discomfort suggest angina she has been compliant with her medications. The other issue of note is that her blood pressure was noted to be markedly elevated when she presented to the emergency room. 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 Nonrheumatic mitral (valve) insufficiency Dilated cardiomyopathy Chronic systolic (congestive) heart failure BALWINDER (acute kidney injury) Abnormal electrocardiogram Systolic CHF, acute Hypertension Obesity (BMI 30-39.9) Hyperlipidemia Diabetes mellitus, type II NICOLLE (obstructive sleep apnea) Home Medications ???Medication ???Instructions ???Recorded ???Last Taken ???Type gabapentin 300 mg capsule 600 mg PO QHS NERVE PAIN 01/12/16 10/25/19 20:00 History aspirin 81 mg tablet,delayed 81 mg PO DAILY@0800 HEALTH 01/26/17 10/25/19 20:00 History release MAINTENANCE cholecalciferol (vitamin D3) 50 2,000 unit PO PAYNE SUPPLEMENT 01/26/17 10/19/19 History mcg (2,000 unit) capsule fluoxetine 40 mg capsule (Prozac) 40 mg PO DAILY depression 11/01/18 10/25/19 08:00 History cetirizine 10 mg tablet (Zyrtec) 10 mg PO DAILY PRN Allergies 07/23/20 Unknown History magnesium chloride 71.5 mg 71.5 mg PO DAILY 07/23/20 Unknown History (magnesium chloride) tablet,delayed release (Slow-Mag) meclizine 25 mg tablet 25 mg PO TID PRN dizziness 07/23/20 Unknown History Handicap Parking Placard #1 ea 05/09/22 Unknown Rx ondansetron 4 mg disintegrating 4 mg PO Q6H PRN nausea and 06/01/22 Unknown Rx tablet vomiting #7 tabs ezetimibe 10 mg tablet (Zetia) 10 mg PO DAILY cholesterol #90 tabs 02/01/23 Unknown Rx omeprazole 20 mg tablet,delayed 40 mg PO DAILY GERD 07/02/23 Unknown History release glipizide 5 mg tablet 5 mg PO DAILY DM 07/04/23 Un (more content not included)... Normal [facility] Discharge Instructionon Discharge Instruction [facility] Medical Records Department [address] [place] [address] Instructions for Home/Discharge Instructions 02/18/245 MR#: [id number] Acct: [id number] Name: THIAGO PIERRE Rep #: [id number] : 1955 68 From: José Antonio Emerson DO PCP: ARIA Long, [facility] Status:ADM IN Discharge Instructions Diet Discharge Diet: 1800 Calorie Control Diet Activity Discharge Activity: Return to Normal Activity Weight Bearing Status: Full weight bearing Follow Up Care Test Results: Test results from this visit will be discussed in further detail at your follow-up appointment, if applicable. Discharge Plan Admission Admit Date/Time: 02/17/24 20:34 Primary Reason for Your Visit: non stemi, TIA Attending Provider: José Antonio Emerson Primary Care Provider: Sarah Valencia [facility] Consulting Providers: Cesar Parekh; Merlyn Hardy; Annita Barba; Samra Samano; Maude Anderson; Ferdinand Cruz; Tati Hardwick; Sunny Connelly; Keila Chacon; Arturo Fuller; Sherley Rodriguez; Shaka Lerner; Mary Zuñiga; Serjio Nice; Isabela Alaniz; Dwight Taylor; Joleen Spangler; Modesto Clements; Zaria Esteban; Rand Chamberlain; Misbah Marcum; Taty Velasquez Discharge Orders/Prescriptions Prescriptions: Continued fluoxetine [Prozac] 40 mg capsule 40 mg PO DAILY cetirizine [Zyrtec] 10 mg tablet 10 mg PO DAILY PRN (Reason: Allergies) meclizine 25 mg tablet 25 mg PO TID PRN (Reason: dizziness) Slow-Mag 71.5 mg tablet,delayed release (DR/EC) 71.5 mg PO DAILY omeprazole 20 mg tablet,delayed release (DR/EC) 40 mg PO DAILY ezetimibe [Zetia] 10 mg tablet 10 mg PO DAILY Qty: 90 3RF glipizide 5 mg tablet 5 mg PO DAILY carvedilol 25 mg tablet 25 mg PO BID Qty: 180 3RF Rx Instructions: must administer with a meal/food furosemide 20 mg tablet 20 mg PO QDAY Qty: 30 11RF gabapentin 300 MG capsule 600 mg PO QHS Patient Comments: nerve pain aspirin 81 MG tablet 81 mg PO DAILY@0800 Patient Comments: HEART HEALTH cholecalciferol (vitamin D3) 2,000 UNIT capsule 2,000 unit PO PAYNE insulin aspart U-100 100 unit/mL (3 mL) insulin pen 12 unit SC 1700 Rx Instructions: 12 units subcutaneously before dinner meal ondansetron 4 mg tablet,disintegrating 4 mg PO Q6H PRN (Reason: nausea and vomiting) Qty: 7 0RF cyclobenzaprine 10 mg tablet 5 mg PO TID PRN (Reason: Muscle Spasm) Qty: 20 0RF amlodipine 5 mg tablet 5 mg PO DAILY dapagliflozin propanediol [Farxiga] 10 mg tablet 10 mg PO DAILY insulin aspart U-100 [Novolog FlexPen U-100 Insulin] 100 unit/mL (3 mL) insulin pen 9 unit subcut .breakfast and lunch insulin degludec [Tresiba FlexTouch U-100] 100 unit/mL (3 mL) insulin pen 18 unit subcut .hs Ozempic 1 mg/dose (4 mg/3 mL) pen injector 1 mg subcut .weekly (DME) Handicap Parking Placard See Rx Instructions .Route .MEDSUPPLY Qty: 1 0RF Rx Instructions: As directed Entresto 97-103 mg tablet 1 tab PO BID Qty: 180 3RF Referrals / Follow Up: Sarah Valencia Chele, [facility] [Primary Care Provider] - See Referral Note (as scheduled) Disposition Disposition (needs filled in before D/C Order can be placed): Home, Self Care 02/18/24 1823 José Antonio Emerson DO CC: Samra Samano; Mary Zuñiga; Dwight Taylor; C [facility] [employer] [facility] Sarah Valencia; Maude Anderson MD; Annita Barba MD; Cesar Parkeh MD; Dr. Merlyn Hardy MD; Dr. Taty Velasquez MD; Dr. Misbah Marcum MD; Dr. Ferdinand Cruz MD; Dr. Tati Hardwick MD; Dr. Keila Chacon MD; Dr. Sunny Connelly MD; Dr. Arturo Fuller MD; Dr. Shaka Lerner DO; Dr. Isabela Alaniz MD; Dr. Serjio Nice MD; Dr. Joleen Spangler MD; Dr. Modesto Clements MD; Dr. Zaria Esteban MD; Sherley Rodriguez DO; Rand Chamberlain MD Signed Normal [facility] Hemoglobin A1con 02-18-2024 HbA1c (Bld) [Mass fraction] 7.3 % High 3.8-5.6 [facility] Comment on above: Result Comment: Norm al < 5.7 % Prediabetic 5.7 - 6.4 % Diabetic >or= 6.5 % Please note range changes. Performed By: #### L 501.9985, L100.0100, L500.4050, L500.4100, L501.9520 ####[facility] [address] [place], [address] L501.4020on 02-18-2024 TROPONIN-I HS 877 pg/mL Invalid Interpretation Code 3.0-54.0 [facility] Comment on above: Order Comment: Comme nts: SPECIMEN #3'TROP' Serial specimen #1, #2 or #3: 3 Result Comment: Crit ical Result(s) Called at: 05:15:32 02/18/2024 by: Edita hines. Results read back by same. Please Note: New Test Units and Gender Specific Reference Ranges. For more information see Policy Stat Procedure Steen High Sensitivity Troponin (TNIH) and attachments. Performed By: #### L 500.4050, L100.0100, L502.0500, L501.9520 #### [facility] [address] [place], [address] TROPONIN-I HS 523 pg/mL Invalid Interpretation Code 3.0-54.0 [facility] Comment on above: Order Comment: Comme nts: SPECIMEN #2'TROP' Serial specimen #1, #2 or #3: 2 Result Comment: Crit ical Result(s) Called at: 00:17:36 02/18/2024 by: Edita hines. Results read back by same. Please Note: New Test Units and Gender Specific Reference Ranges. For more information see Policy Stat Procedure Steen High Sensitivity Troponin (TNIH) and attachments. Performed By: #### L 501.4020 ####[facility] [address] [place], [address] Lipid Profileon 02-18-2024 Cholesterol [Mass/Vol] 265 mg/dL High 200 [facility] Comment on above: Result Comment: <200 mg/dL Desirable 200-240 mg/dL Borderline >240 mg/dL High Risk Performed By: #### L 501.9985, L100.0100, L500.4050, L500.4100, L501.9520 ####[facility] [address] [place], [address] Cholesterol in HDL [Mass/Vol] 77 mg/dL Normal [facility] Comment on above: Result Comment: The drugs N-Acetylcysteine and Metamizole may falsely depress this assay. Reference Range HDL <40 mg/dL Low HDL Cholesterol HDL >or= 60 mg/dL High HDL Cholesterol Performed By: #### L 501.9985, L100.0100, L500.4050, L500.4100, L501.9520 ####[facility] [address] [place], [address] Cholesterol in LDL [Mass/Vol] 167 mg/dL High 0-130 [facility] Comment on above: Performed By: #### L 501.9985, L100.0100, L500.4050, L500.4100, L501.9520 ####[facility] [address] [place], [address] Cholesterol in VLDL [Mass/Vol] 21 mg/dL Normal 5-40 [facility] Comment on above: Performed By: #### L 501.9985, L100.0100, L500.4050, L500.4100, L501.9520 ####[facility] [address] [place], [address] Triglyceride [Mass/Vol] 106 mg/dL Normal [facility] Comment on above: Result Comment: The drugs N-Acetylcysteine and Metamizole may falsely depress this assay. Serum Triglycerides Reference Interval Normal <150 mg/dL Borderline high 150 - 199 mg/dL High 200 - 499 mg/dL Very High > or = 500 mg/dL Performed By: #### L 501.9985, L100.0100, L500.4050, L500.4100, L501.9520 ####[facility] [address] [place], [address] MR/CON.PCM.NEon 02-18-2024 MR/CON.PCM.NE [facility] Medical Records Department [address] [place] [address] Consultation - Neurology 02/18/24 1155 MR#: [id number] Acct: [id number] Name: THIAGO PIERRE Rep #: [id number] : 1955 68 From: Isabela Alaniz MD PCP: ARIA Long, [facility] [employer] Status:ADM IN Location: [place] [address] Assessment and Plan: Neuro Assessment/Plan THIAGO PIERRE is a 68 F with a past medical history of HTN, DMII, CAD, valvular heart disease , being evaluated by Teleneurology for possible nausea vomiting and slurred speech concerning for acute stroke. symptoms has largerly improved but she cont to have minimal dysarthria. she had elevated troponin and cardiac cath was done today. Diagnosis: TIA? Plan: cont ASA 81 mg daily MRI brain w.o cont if possible(ICD and pacemaker) repeat CT head if Pacemaker is not compatiable vascular risk factor modification follow up TTE HPI Consult Data Date of Consult: 02/18/24 HPI Narrative HPI Narrative: The patient is a 68 y/o F w/ PMHx: GERD, CKD stage III unclear subtype, HTN, HLD, HFrEF/Dilated cardiomyopathy s/p AICD,-Diabetes mellitus type II, Valvular Heart Disease, presents to the [facility] ED on 02/17/24 presented with nausea and vomiting and slurred speech after taking Ozempic = In the ED upon evaluation patient with ongoing persistent nausea and dry heaving with still evidence dysarthria but difficult assessment given severity of ongoing GI issues. Workup in the ED included T97.8, heart rate 66, BP 168/109, respiratory rate 20, 95% on room air with most recent repeat vitals heart rate 83, BP 218/107, respiratory rate 19, 94% on room air, CBC with WBC 11.4, hemoglobin 15.3, MCV 86.3, platelet 288 with left shift, CMP with potassium 3.4, glucose 194, T. bili 1.10, AST/LT 13/20, alk phos 106, lipase 44, troponin initial 201, CT of the brain with moderate periventricular white matter ischemic changes and possible tiny old right lacunar infarct with no acute intracranial findings otherwise, CTA head and neck with mild atherosclerotic changes of the head and neck with most severe stenosis of the P2 segment of the left posterior cerebral, chest x-ray with no acute evidence of ischemia, EKG with paced rhythm with no acute evidence of ischemia, in the ED patient ministered Zofran 4 mg IV x 2, Reglan 10 mg IV x 1, morphine 4 mg IV x 2 as well as 1 L normal saline. 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 Nonrheumatic mitral (valve) insufficiency Dilated cardiomyopathy Chronic systolic (congestive) heart failure BALWINDER (acute kidney injury) Abnormal electrocardiogram Systolic CHF, acute Hypertension Obesity (BMI 30-39.9) Hyperlipidemia Diabetes mellitus, type II NICOLLE (obstructive sleep apnea) Home Medications ???Medication ???Instructions ???Recorded ???Last Taken ???Type gabapentin 300 mg capsule 600 mg PO QHS NERVE PAIN 01/12/16 10/25/19 20:00 History aspirin 81 mg tablet,delayed 81 mg PO DAILY@0800 HEALTH 01/26/17 10/25/19 20:00 History release MAINTENANCE cholecalciferol (vitamin D3) 50 2,000 unit PO PAYNE SUPPLEMENT 01/26/17 10/19/19 History mcg (2,000 unit) capsule fluoxetine 40 mg capsule (Prozac) 40 mg PO DAILY depression 11/01/18 10/25/19 08:00 History cetirizine 10 mg tablet (Zyrtec) 10 mg PO DAILY PRN Allergies 07/23/20 Unknown History magnesium chloride 71.5 mg 71.5 mg PO DAILY 07/23/20 Unknown History (magnesium chloride) tablet,delayed release (Slow-Mag) meclizine 25 mg tablet 25 mg PO TID PRN dizziness 07/23/20 Unknown History Handicap Parking Placard #1 ea 05/09/22 Unknown Rx ondansetron 4 mg disintegrating 4 mg PO Q6H PRN nausea and 06/01/22 Unknown Rx tablet vomiting #7 tabs ezetimibe 10 mg tablet (Zetia) 10 mg PO DAILY cholesterol #90 tabs 02/01/23 Unknown Rx omeprazole 20 mg tablet,delayed 40 mg PO DAILY GERD 07/02/23 Unknown History release glipizide 5 mg tablet 5 mg PO DAILY DM 07/04/23 Unknown History sacubitril 97 mg-valsartan 103 mg 1 tab PO BID HF #180 tabs 09/12/23 Unknown Rx tablet (Entresto) cyclobenzaprine 10 mg tablet 5 mg (1/2 x 10 mg) PO TID PRN 09/13/23 Unknown Rx Muscle Spasm #20 TABLETS hydrocodone-acetaminoph en 5-325mg 1 tab PO Q6H PRN PRN Pain 3 days 09/13/23 Unknown Rx 5mg-325mg #10 TABLETS Novolog FlexPen U-100 Insulin 100 12 unit (0.12 mL) subcut TID #30 mL 10/04/23 Unknown Rx unit/mL (3 mL) subcutaneous (insulin aspart U-100) carvedilol 25 mg tablet 25 mg PO BID #180 tabs 12/31/23 Unknown Rx furosemide 20 mg tablet 20 mg PO QDAY water pill #30 tabs 12/31/23 Unknown Rx insulin aspart U-100 100 unit/mL 12 unit subcut .COMPLEX Diabetes 12/31/23 Unkn (more content not included)... Normal [facility] Pacemaker Checkon 02-18-2024 Pacemaker Check [facility] [address] [place] [address]. [address] [place] [address] Pacemaker Check Date of Service: 02/18/24 1612 MR#: [id number] Acct: [id number] Name: IGNACIOTHIAGO VICKIE Rep #: [id number] : 1955 From: Rachel Field Age/Sex: 68/F Location: [facility] Status: Signed Billing Codes MRI: 37117 ICD Assessment and Plan Assessment and Plan (1) Dilated cardiomyopathy: Status: Chronic Comment: Ejection fraction 20% per echo 01/13/2016 @ [facility] (2) Chronic systolic (congestive) heart failure: Status: Chronic (3) Cardiac defibrillator in situ: Status: Chronic Comment: Implanted 03/16/2016 mala Garcia, [facility] 02/18/24 1613 Date Rachel Castro Signature: Date (if applicable) CC: Normal [facility] Pacemaker Check [facility] [address] [place] [address] [address] [place] [address] Pacemaker Check Date of Service: 02/18/24 1611 MR#: [id number] Acct: [id number] Name: IGNACIOTHIAGO VICKIE Rep #: [id number] : 1955 From: Rachel Field Age/Sex: 68/F Location: [facility] Status: Signed Billing Codes MRI: 71019 ICD Assessment and Plan Assessment and Plan (1) Hx of cardiomyopathy: Status: Acute (2) Cardiac defibrillator in situ: Status: Chronic Comment: Implanted 03/16/2016 mala Garcia, [facility] (3) Dilated cardiomyopathy: Status: Chronic Comment: Ejection fraction 20% per echo 01/13/2016 @ [facility] (4) Chronic systolic (congestive) heart failure: Status: Chronic 02/18/24 1611 Date Rachel Castro Signature: Date (if applicable) CC: Normal [facility] Partial Thromboplast Timeon 02-18-2024 aPTT Coag (Bld) [Time] 47.9 s High 24.1-36.2 [facility] Comment on above: Order Comment: Comme nts: Heparin drip initiated at 2200 02/16 Performed By: #### L 500.4050, L100.0100, L502.0500, L501.9520 #### [facility] [address] [place], [address] Thyroid Stim Hormone (TSH)on 02-18-2024 TSH 3.650 uIU/mL Normal 0.358-3.740 [facility] Comment on above: Performed By: #### L 501.9985, L100.0100, L500.4050, L500.4100, L501.9520 ####[facility] [address] [place], [address] 12 Lead EKGon 02-17-2024 12 Lead EKG [facility] [address] [place] [address] 12 Lead EKG 02/17/24 1912 MR#: [id number] Acct: [id number] Name: THIAGO PIERRE Rep #: [id number] : 1955 68 From: Misbah Marcum MD Attending Dr: Dr. José Antonio Emerson DO Status: A DM IN Ordering Dr: Antonio Herr MD Date: 02/17/24 Location: [facility] Sex: F C Admitted: 02/17/24 Test Reason : DYSRHYTHMIA Blood Pressure : / mmHG Vent. Rate : 072 BPM Atrial Rate : 072 BPM P-R Int : 118 ms QRS Dur : 154 ms QT Int : 470 ms P-R-T Axes : 047 -43 101 degrees QTc Int : 514 ms Atrial-sensed ventricular-paced rhythm Biventricular pacemaker detected Abnormal ECG Confirmed by MISBAH MARCUM MD ([id number]), graphic editor EDITA CRUZ ([id number]) on 02/18/2024 2:49:38 PM Referred By: Confirmed By:MISBAH MARCUM MD 02/18/24 1449 Date Misbah Marcum MD CC: [facility] [employer]le Valencia; Dr. Antonio Herr MD; Dr. José Antonio Emerson, DO Signed Normal [facility] CBC W/Diff, Automatedon 09-0 -2023 Absolute Lymph 1.52 X10 3/uL Normal 0.83-4.51 [facility] Comment on above: Performed By: #### L 500.4050, L100.0100, L502.0500, L501.9520 #### [facility] [address] [place], [address] Absolute Neut 9.4 X10 3/uL High 2.0-7.7 [facility] Comment on above: Performed By: #### L 500.4050, L100.0100, L502.0500, L501.9520 #### [facility] [address] [place], [address] Basophils/100 WBC (Bld) 0.6 % Normal 0-1 [facility] Comment on above: Performed By: #### L 500.4050, L100.0100, L502.0500, L501.9520 #### [facility] [address] [place], [address] Eosinophils/100 WBC (Bld) 0.4 % Normal 0-5 [facility] Comment on above: Performed By: #### L 500.4050, L100.0100, L502.0500, L501.9520 #### [facility] [address] [place], [address] Erythrocyte distribution width (RBC) [Ratio] 12.8 % Normal 11.6-14.6 [facility] Comment on above: Performed By: #### L 500.4050, L100.0100, L502.0500, L501.9520 #### [facility] [address] [place], [address] Hematocrit (Bld) [Volume fraction] 48.0 % High 37-47 [facility] Comment on above: Performed By: #### L 500.4050, L100.0100, L502.0500, L501.9520 #### [facility] [address] [place], [address] Hemoglobin (Bld) [Mass/Vol] 15.3 g/dL High 12.0-15.0 [facility] Comment on above: Performed By: #### L 500.4050, L100.0100, L502.0500, L501.9520 #### [facility] [address] [place], [address] IG% 0.300 Normal 0.0-0.9 [facility] Comment on above: Result Comment: IG% - Immature Granulocytes (promyelocytes, myelocytes and metamyelocytes) > 1% indicates that a LEFT SHIFT is Present. Performed By: #### L 500.4050, L100.0100, L502.0500, L501.9520 #### [facility] [address] [place], [address] Lymphocytes/100 WBC (Bld) 13.3 % Low 19-41 [facility] Comment on above: Performed By: #### L 500.4050, L100.0100, L502.0500, L501.9520 #### [facility] [address] [place], [address] MCH (RBC) [Entitic mass] 27.5 pg Normal 27.0-32.0 [facility] Comment on above: Performed By: #### L 500.4050, L100.0100, L502.0500, L501.9520 #### [facility] [address] [place], [address] MCHC (RBC) [Mass/Vol] 31.9 g/dL Low 32-36 [facility] Comment on above: Performed By: #### L 500.4050, L100.0100, L502.0500, L501.9520 #### [facility] [address] [place], [address] MCV (RBC) [Entitic vol] 86.3 fL Normal 81-99 [facility] Comment on above: Performed By: #### L 500.4050, L100.0100, L502.0500, L501.9520 #### [facility] [address] [place], [address] Monocytes/100 WBC (Bld) 3.4 % Normal 0-10 [facility] Comment on above: Performed By: #### L 500.4050, L100.0100, L502.0500, L501.9520 #### [facility] [address] [place], [address] Neutrophils/100 WBC (Bld) 82.0 % High 47-70 [facility] Comment on above: Performed By: #### L 500.4050, L100.0100, L502.0500, L501.9520 #### [facility] [address] [place], [address] Nucleated RBC (Bld) [#/Vol] 0 10*3/uL Normal 0-5 [facility] Comment on above: Performed By: #### L 500.4050, L100.0100, L502.0500, L501.9520 #### [facility] [address] [place], [address] Platelet mean volume (Bld) [Entitic vol] 9.8 fL Normal 6.2-12.0 [facility] Comment on above: Performed By: #### L 500.4050, L100.0100, L502.0500, L501.9520 #### [facility] [address] [place], [address] Platelets (Bld) [#/Vol] 288 10*3/uL Normal 150-450 [facility] Comment on above: Performed By: #### L 500.4050, L100.0100, L502.0500, L501.9520 #### [facility] [address] [place], [address] RBC (Bld) [#/Vol] 5.56 10*6/uL High 4.2-5.4 [facility] Comment on above: Performed By: #### L 500.4050, L100.0100, L502.0500, L501.9520 #### [facility] [address] [place], [address] RDW SD 40.3 fl Normal 35.1-43.9 [facility] Comment on above: Performed By: #### L 500.4050, L100.0100, L502.0500, L501.9520 #### [facility] [address] [place], [address] WBC (Bld) [#/Vol] 11.4 10*3/uL High 4.4-11.0 [facility] Comment on above: Performed By: #### L 500.4050, L100.0100, L502.0500, L501.9520 #### [facility] [address] [place], [address] Chest 1 View (Portable)on Chest 1 View (Portable) [facility] Imaging Services [address] [place] [address] Chest 1 View (Portable) MR#: [id number] Acct: [id number] Name: THIAGO PIERRE Rep #: [id number] : 1955 F 68 From: Kiran Bolton MD PCP: ARIA Long, [facility] Status: REG ER Study: Chest 1 View (Portable) Date of Exam: 02/17/24 Exam# [id number] Ordering Dr: [place] [id number] STUDY: X-RAY CHEST REASON FOR EXAM: Female, 68 years old. stroke TECHNIQUE: AP portable COMPARISON: None. FINDINGS: Elevated right hemidiaphragm and mild basilar atelectasis. There is no demonstrated pleural abnormality. Normal size heart. Normal mediastinum and margaret. Normal visualized pulmonary arteries. Tortuous mildly calcified aortic arch and descending thoracic aorta. Biventricular pacer noted on the left with electrodes in satisfactory position Dorsal spine and shoulders demonstrate degenerative change. Normal visualized ribs, and clavicles.. There is no demonstrated abnormality of the visualized soft tissue structures of the upper abdomen. RAD/Chest 1 View (Portable) IMPRESSION: Elevated right hemidiaphragm and mild basilar atelectasis Electronically Signed: Kiran Bolton MD at 20:20 EDT , CC: [facility] [employer]-Chele Valencia; Dr. Antonio Herr MD Cutter And Edge Trimmer: Signed Normal [facility] Comprehensive Metabolic Prof ilon 02-17-2024 Albumin [Mass/Vol] 3.6 g/dL Normal 3.2-5.0 [facility] Comment on above: Performed By: #### L 500.4050, L100.0100, L502.0500, L501.9220 #### [facility] [address] [place], [place], [id number] Albumin/Globulin [Mass ratio] 1.0 {ratio} Normal 0.9-2.4 [facility] Comment on above: Performed By: #### L 500.4050, L100.0100, L502.0500, L501.9520 #### [facility] [address] [place], [address] ALK P 106 U/L Normal 45-117 [facility] Comment on above: Performed By: #### L 500.4050, L100.0100, L502.0500, L501.9520 #### [facility] [address] [place], [address] ALT [Catalytic activity/Vol] 20 U/L Normal 13-56 [facility] Comment on above: Performed By: #### L 500.4050, L100.0100, L502.0500, L501.9520 #### [facility] [address] [place], [address] AST [Catalytic activity/Vol] 13 U/L Low 15-37 [facility] Comment on above: Performed By: #### L 500.4050, L100.0100, L502.0500, L501.9520 #### [facility] [address] [place], [address] Bilirubin [Mass/Vol] 1.10 mg/dL High 0.20-1.00 [facility] Comment on above: Result Comment: For patients on eltrombopag therapy, use of Dimension Steen TBIL is not recommended. Performed By: #### L 500.4050, L100.0100, L502.0500, L501.9520 #### [facility] [address] [place], [address] BUN/CRE 17.5 RATIO Normal 10-20 [facility] Comment on above: Performed By: #### L 500.4050, L100.0100, L502.0500, L501.9520 #### [facility] [address] [place], [address] CA,Total 9.5 mg/dL Normal 8.5-10.1 [facility] Comment on above: Performed By: #### L 500.4050, L100.0100, L502.0500, L501.9520 #### [facility] [address] [place], [address] Chloride [Moles/Vol] 102 mmol/L Normal 98-107 [facility] Comment on above: Performed By: #### L 500.4050, L100.0100, L502.0500, L501.9520 #### [facility] [address] [place], [address] CO2 [Moles/Vol] 27.0 mmol/L Normal 21.0-32.0 [facility] Comment on above: Performed By: #### L 500.4050, L100.0100, L502.0500, L501.9520 #### [facility] [address] [place], [address] Creatinine [Mass/Vol] 0.97 mg/dL Normal 0.55-1.02 [facility] Comment on above: Result Comment: The validity of the calculated GFR GFRAA in patients over 70 years has not been determined. Clinical correlation is essential. Performed By: #### L 500.4050, L100.0100, L502.0500, L501.9520 #### [facility] [address] [place], [address] EST GFR - AA 73 mL/min Normal >60 [facility] Comment on above: Result Comment: Afri can Trinidadian GFR Calc Performed By: #### L 500.4050, L100.0100, L502.0500, L501.9520 #### [facility] [address] [place], [address] GAP 9 Normal 5-15 [facility] Comment on above: Performed By: #### L 500.4050, L100.0100, L502.0500, L501.9520 #### [facility] [address] [place], [address] GFR/1.73 sq M.predicted among non-blacks MDRD (S/P/Bld) [Vol rate/Area] 60 mL/min/{1.73_m2} Normal >60 [facility] Comment on above: Result Comment: Non- GFR Calc Performed By: #### L 500.4050, L100.0100, L502.0500, L501.9520 #### [facility] [address] [place], [address] Globulin (S) [Mass/Vol] 3.6 g/dL Normal 2.2-4.2 [facility] Comment on above: Performed By: #### L 500.4050, L100.0100, L502.0500, L501.9520 #### [facility] [address] [place], [address] Glucose [Mass/Vol] 194 mg/dL High 74-106 [facility] Comment on above: Result Comment: Fast ing Glucose result greater than or equal to 126 mg/dL suggests DIABETES MELLITUS per A.D.A. criteria. Performed By: #### L 500.4050, L100.0100, L502.0500, L501.9520 #### [facility] [address] [place], [address] Potassium [Moles/Vol] 3.4 mmol/L Low 3.5-5.1 [facility] Comment on above: Performed By: #### L 500.4050, L100.0100, L502.0500, L501.9520 #### [facility] [address] [place], [address] Sodium [Moles/Vol] 138 mmol/L Normal 136-145 [facility] Comment on above: Performed By: #### L 500.4050, L100.0100, L502.0500, L501.9520 #### [facility] [address] [place], [address] T PROT 7.2 g/dL Normal 6.4-8.2 [facility] Comment on above: Performed By: #### L 500.4050, L100.0100, L502.0500, L501.9520 #### [facility] [address] [place], [address] Urea nitrogen [Mass/Vol] 17 mg/dL Normal 7-18 [facility] Comment on above: Performed By: #### L 500.4050, L100.0100, L502.0500, L501.9520 #### [facility] [address] [place], [address] Echo Complete W/ Contraston 02-17-2024 Echo Complete W/ Contrast [facility] [address] [place] [address] Echo Complete W/ Contrast 02/18/24 0833 MR#: [id number] Acct: [id number] Name: THIAGO PIERRE Rep #: [id number] : 1955 68 From: Misbah Marcum MD Attending Dr: Dr. José Antonio Emerson, DO Status: A DM IN Ordering Dr: Taty Velasquez MD Date: 02/17/24 Location: PCU Sex: F C Admitted: 02/17/24 Reason For Study: ELEVATED TROP Procedure This was a 2D Doppler, Color Flow transthoracic echocardiogram. The study was technically difficult. Contrast injection was performed. Exam performed portable in ICU/CCU. Left Ventricle Normal LV size. Moderate concentric left ventricular hypertrophy. The left ventricular ejection fraction is 50 %. Stage 1 diastolic dysfunction. Artie : Severely Hypokinetic. The rest of the wall segments are normal. Right Ventricle Normal RV size. ICD or pacer leads identified within the right ventricle. Normal systolic function. Atria Normal left atrium. Normal right atrium. Mitral Valve Normal mitral valve. Tricuspid Valve Normal tricuspid valve. Pulmonic Valve The pulmonic valve is not well visualized. Great Vessels Normal aortic root. The pulmonary artery is normal size. Inferior vena cava collapse with respiration. Pericardium/Pleural No pericardial effusion. Medication Diluted definity 2ml given slow IV push to enhance endocardial definition. Performed a rapid injection of agitated mix of 9 cc saline and 1cc air to assess for atrial septal defect. MMode/2D Measurements Calculations LVIDd: 5.0 cm IVSd: 1.6 cm LVOT diam: 2.0 cm LVIDs: 4.7 cm LVPWd: 1.7 cm LVOT area: 3.2 cm2 FS: 6.4 % Ao root diam: 3.6 cm LAV(MOD-bp): 54.3 ml LVAd ap4: 38.3 cm2 LAV(MOD-bp) Indexed: 25.7 ml/m2 LVLd ap4: 8.7 cm LAV(MOD-sp2): 46.1 ml EDV(MOD-sp4): 139.4 ml LAV(MOD-sp4): 56.6 ml EDV(sp4-el): 142.7 ml LVAs ap4: 29.8 cm2 LVLs ap4: 8.2 cm ESV(MOD-sp4): 90.0 ml ESV(sp4-el): 91.5 ml EF(MOD-sp4): 35.4 % EF(sp4-el): 35.9 % SV(MOD-sp4): 49.4 ml SV(sp4-el): 51.2 ml LA A4 area: 20.3 cm2 LA dimension(2D): 3.8 cm RA A4 area: 16.1 cm2 Time Measurements MV dec time: 0.07 sec Doppler Measurements Calculations MV E max ld: 46.3 cm/sec Lat Peak E' Ld: 4.9 cm/sec Med Peak E' Ld: 5.5 cm/sec MV A max ld: 105.8 cm/sec E/E' lat: 9.5 E/E' med: 8.4 MV E/A: 0.44 MV V2 max: 119.1 cm/sec Ao V2 max: 145.3 cm/sec MV max P.7 mmHg MV dec slope: 653.9 cm/sec2 Ao max P.5 mmHg MV V2 mean: 70.0 cm/sec Ao V2 mean: 97.9 cm/sec MV mean P.3 mmHg Ao mean P.5 mmHg MV V2 VTI: 24.2 cm Ao V2 VTI: 23.5 cm AV (velocity ratio): 0.92 MVA(VTI): 2.9 cm2 DEBRA(I,D): 2.9 cm2 DEBRA(V,D): 2.5 cm2 LV V1 max: 114.2 cm/sec SV(LVOT): 69.1 ml PA V2 max: 93.2 cm/sec LV V1 max P.2 mmHg PA V2 mean: 66.1 cm/sec LV V1 mean P.7 mmHg LV V1 mean: 76.1 cm/sec LV V1 VTI: 21.6 cm ECHO/Echo Complete W/ Contrast Interpretation Summary Normal LV size. The left ventricular ejection fraction is 50 %. Moderate concentric left ventricular hypertrophy. Artie : Severely Hypokinetic. Stage 1 diastolic dysfunction. Contrast injection was performed. Ordering Physician: Taty Velasquez Referring Physician: SARAH VALENCIA Performed By: Tanesha Santos RCS 02/18/24 1223 Date Misbah Marcum MD CC: ARIA [facility] Sarah Valencia; Dr. Taty Velasquez MD; Dr. José Antonio Emerson DO Date Dictated: 02/18/2433 Date Transcribed: 02/18/24 1223 Cutter And Edge Trimmer: Signed Normal [facility] Emergency Department Summary on 02-17-2024 Emergency Department Summary [facility] Medical Records Department [address] [place] [address] [place] [address] Emergency Department Summary 02/17/24 MR#: [id number] Acct: [id number] Name: THIAGO PIERRE Rep #: [id number] : 1955 68 From: Antonio Herr MD PCP: ARIA Long, [facility] [employer] Status:ADM IN Location: [place] [address] HPI HPI - GI History of Present Illness Chief Complaint: Abd Pain Detail of Chief Complaint: Nausea and vomiting after taking Ozempic Informant: patient and spouse/S.O. Abdominal Pain/Flank Pain Onset: Today and Hours Context: Gradual Onset Timing: Continuous Quality: Cramping Location: Diffuse Current Severity: Mild Maximum Severity: Mild Worsened by: Nothing Relieved by: Nothing Nausea/Vomiting/Emesis GI Symptom: Positive for Nausea and Vomiting Onset: Today Severity: Moderate Diarrhea/Melena/Hematoc hezia GI Symptom: Negative for Diarrhea, Melena or Hematochezia Associated Symptoms Associated Symptoms: Negative for Dysuria, Frequency, Hematuria or Urgency Narrative Narrative: 68-year-old female history of CAD, diabetes, cardiomyopathy with a prior abdominal hysterectomy. States that she took Ozempic and about half an hour after taking it started having nausea and vomiting. Previously when she was on Ozempic she had nausea before and never had vomiting like this. Complaining of some mild abdominal cramping. No diarrhea. No dysuria. No fever. Said she felt fine this morning and all day yesterday. She thinks it is related to the medication. 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 Nonrheumatic mitral (valve) insufficiency Dilated cardiomyopathy Chronic systolic (congestive) heart failure BALWINDER (acute kidney injury) Abnormal electrocardiogram Systolic CHF, acute Hypertension Obesity (BMI 30-39.9) Hyperlipidemia Diabetes mellitus, type II NICOLLE (obstructive sleep apnea) Home Medications ???Medication ???Instructions ???Recorded ???Last Taken ???Type gabapentin 300 mg capsule 600 mg PO QHS NERVE PAIN 01/12/16 10/25/19 20:00 History aspirin 81 mg tablet,delayed 81 mg PO DAILY@0800 HEALTH 01/26/17 10/25/19 20:00 History release MAINTENANCE cholecalciferol (vitamin D3) 50 2,000 unit PO PAYNE SUPPLEMENT 01/26/17 10/19/19 History mcg (2,000 unit) capsule fluoxetine 40 mg capsule (Prozac) 40 mg PO DAILY depression 11/01/18 10/25/19 08:00 History cetirizine 10 mg tablet (Zyrtec) 10 mg PO DAILY PRN Allergies 07/23/20 Unknown History magnesium chloride 71.5 mg 71.5 mg PO DAILY 07/23/20 Unknown History (magnesium chloride) tablet,delayed release (Slow-Mag) meclizine 25 mg tablet 25 mg PO TID PRN dizziness 07/23/20 Unknown History Handicap Parking Placard #1 ea 05/09/22 Unknown Rx ondansetron 4 mg disintegrating 4 mg PO Q6H PRN nausea and 06/01/22 Unknown Rx tablet vomiting #7 tabs amlodipine 5 mg tablet 5 mg PO DAILY #90 tabs 02/01/23 Unknown Rx ezetimibe 10 mg tablet (Zetia) 10 mg PO DAILY #90 tabs 02/01/23 Unknown Rx omeprazole 20 mg tablet,delayed 40 mg PO DAILY 07/02/23 Unknown History release glipizide 5 mg tablet 5 mg PO DAILY 07/04/23 Unknown History sacubitril 97 mg-valsartan 103 mg 1 tab PO BID #180 tabs 09/12/23 Unknown Rx tablet (Entresto) cyclobenzaprine 10 mg tablet 5 mg (1/2 x 10 mg) PO TID PRN 09/13/23 Unknown Rx Muscle Spasm #20 TABLETS hydrocodone-acetaminoph en 5-325mg 1 tab PO Q6H PRN PRN Pain 3 days 09/13/23 Unknown Rx 5mg-325mg #10 TABLETS Novolog FlexPen U-100 Insulin 100 12 unit (0.12 mL) subcut TID #30 mL 10/04/23 Unknown Rx unit/mL (3 mL) subcutaneous (insulin aspart U-100) carvedilol 25 mg tablet 25 mg PO BID #180 tabs 12/31/23 Unknown Rx furosemide 20 mg tablet 20 mg PO QDAY water pill #30 tabs 12/31/23 Unknown Rx insulin aspart U-100 100 unit/mL 12 unit subcut .COMPLEX Diabetes 12/31/23 Unknown History (3 mL) subcutaneous pen insulin degludec 100 unit/mL (3 14 unit subcut DAILY 12/31/23 Unknown History mL) subcutaneous pen (Tresiba FlexTouch U-100 insulin) Allergy/AdvReac Type Severity Reaction Status Date / Time red dye Allergy Hives Verified 02/17/24 17:04 Dezatxv-AJI-TkC Reductase AdvReac Severe Myalgias Verified 02/17/24 17:04 Inhibitor (Axpmfyd-Umw-Yrf Reductase Inhibitor) Family History Father , Lung cancer Lung cancer Mother , Breast cancer Breast cancer Brother Cancer lymphoma Surgical History History of eye surgery History of left heart catheterization (more content not included)... Normal [facility] H AND P Exam - Hospitaliston 02-17-2024 H&P Exam - Hospitalist [facility] Medical Records Department [address] [place] [address] H P Exam - Hospitalist 02/17/242021 MR#: [id number] Acct: [id number] Name: THIAGO PIERRE Rep #: [id number] : 1955 68 From: Taty Velasquez MD PCP: ARIA Long, [facility] [employer] Status:ADM IN Location: [place] [id number] HPI - General General Date of Admission: 02/17/24 Date of Service: 02/17/24 Chief Complaint: N/V after medication, onset dysarthria in the ED. HPI Narrative The patient is a 68 y/o F w/ PMHx: GERD, CKD stage III unclear subtype, HTN, HLD, HFrEF/Dilated cardiomyopathy s/p AICD, Carotid disease, NICOLLE, Diabetes mellitus type II, Valvular Heart Disease, Former tobacco use, Anxiety and Depression who presents to the [facility] ED on 02/17/24 with history of nausea and emesis after taking Ozempic with onset of cramping diffuse abdominal discomfort on day of presentation noting she had taken it previously and never had issues like this with no fevers or chills felt secondary to likely the medications however at 7:15 PM upon repeat evaluation in the ED patient was having difficulty with her speech which was not her baseline when she presented to the ED although she did have several doses of morphine and nausea prompting stroke alert with improvement on repeat evaluation 8 PM with stroke neurology evaluation felt not TNK candidate. In the ED upon evaluation patient with ongoing persistent nausea and dry heaving with still evidence dysarthria but difficult assessment given severity of ongoing GI issues. Workup in the ED included T97.8, heart rate 66, BP 168/109, respiratory rate 20, 95% on room air with most recent repeat vitals heart rate 83, BP 218/107, respiratory rate 19, 94% on room air, CBC with WBC 11.4, hemoglobin 15.3, MCV 86.3, platelet 288 with left shift, CMP with potassium 3.4, glucose 194, T. bili 1.10, AST/LT 13/20, alk phos 106, lipase 44, troponin initial 201, CT of the brain with moderate periventricular white matter ischemic changes and possible tiny old right lacunar infarct with no acute intracranial findings otherwise, CTA head and neck with mild atherosclerotic changes of the head and neck with most severe stenosis of the P2 segment of the left posterior cerebral, chest x-ray with no acute evidence of ischemia, EKG with paced rhythm with no acute evidence of ischemia, in the ED patient ministered Zofran 4 mg IV x 2, Reglan 10 mg IV x 1, morphine 4 mg IV x 2 as well as 1 L normal saline. 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 Nonrheumatic mitral (valve) insufficiency Dilated cardiomyopathy Chronic systolic (congestive) heart failure BALWINDER (acute kidney injury) Abnormal electrocardiogram Systolic CHF, acute Hypertension Obesity (BMI 30-39.9) Hyperlipidemia Diabetes mellitus, type II NICOLLE (obstructive sleep apnea) Home Medications ???Medication ???Instructions ???Recorded ???Last Taken ???Type gabapentin 300 mg capsule 600 mg PO QHS NERVE PAIN 01/12/16 10/25/19 20:00 History aspirin 81 mg tablet,delayed 81 mg PO DAILY@0800 HEALTH 01/26/17 10/25/19 20:00 History release MAINTENANCE cholecalciferol (vitamin D3) 50 2,000 unit PO PAYNE SUPPLEMENT 01/26/17 10/19/19 History mcg (2,000 unit) capsule fluoxetine 40 mg capsule (Prozac) 40 mg PO DAILY depression 11/01/18 10/25/19 08:00 History cetirizine 10 mg tablet (Zyrtec) 10 mg PO DAILY PRN Allergies 07/23/20 Unknown History magnesium chloride 71.5 mg 71.5 mg PO DAILY 07/23/20 Unknown History (magnesium chloride) tablet,delayed release (Slow-Mag) meclizine 25 mg tablet 25 mg PO TID PRN dizziness 07/23/20 Unknown History Handicap Parking Placard #1 ea 05/09/22 Unknown Rx ondansetron 4 mg disintegrating 4 mg PO Q6H PRN nausea and 06/01/22 Unknown Rx tablet vomiting #7 tabs ezetimibe 10 mg tablet (Zetia) 10 mg PO DAILY cholesterol #90 tabs 02/01/23 Unknown Rx omeprazole 20 mg tablet,delayed 40 mg PO DAILY GERD 07/02/23 Unknown History release glipizide 5 mg tablet 5 mg PO DAILY DM 07/04/23 Unknown History sacubitril 97 mg-valsartan 103 mg 1 tab PO BID HF #180 tabs 09/12/23 Unknown Rx tablet (Entresto) cyclobenzaprine 10 mg tablet 5 mg (1/2 x 10 mg) PO TID PRN 09/13/23 Unknown Rx Muscle Spasm #20 TABLETS hydrocodone-acetaminoph en 5-325mg 1 tab PO Q6H PRN PRN Pain 3 days 09/13/23 Unknown Rx 5mg-325mg #10 TABLETS Novolog FlexPen U-100 Insulin 100 12 unit (0.12 mL) subcut TID #30 mL 10/04/23 Unknown Rx unit/mL (3 mL) subcutaneous (insulin aspart U-100) carvedilol 25 mg tablet 25 mg PO BID #180 tabs 12/31/23 Unknown Rx furosemide 20 mg tablet 20 mg PO QDAY water pill #30 tabs 12/31/23 Unknown Rx insulin asp (more content not included)... Normal [facility] L501.4020on 02-17-2024 TROPONIN-I HS 344 pg/mL Invalid Interpretation Code 3.0-54.0 [facility] Comment on above: Order Comment: 'TROP ' Serial specimen #1, #2 or #3: 1 Result Comment: Crit ical Result(s) Called at: 22:06:49 02/17/2024 by: IRVING FONTENOT TO RN AFFULTER. Results read back by same. Please Note: New Test Units and Gender Specific Reference Ranges. For more information see Policy Stat Procedure Steen High Sensitivity Troponin (TNIH) and attachments. Performed By: #### L 501.4020 #### [facility] [address] [place], [place], [id number] TROPONIN-I HS 201 pg/mL Invalid Interpretation Code 3.0-54.0 [facility] Comment on above: Order Comment: 'TROP ' Serial specimen #1, #2 or #3: 1 Result Comment: Crit ical Result(s) Called at: 19:59:13 02/17/2024 by: IRVING FONTENOT TO ROMÁN BENZ. Results read back by same. Please Note: New Test Units and Gender Specific Reference Ranges. For more information see Policy Stat Procedure Steen High Sensitivity Troponin (TNIH) and attachments. Performed By: #### L 501.4020 ####[facility] [address] [place], [address] Lipaseon 02-17-2024 Lipase [Catalytic activity/Vol] 44 U/L Normal 13-75 [facility] Comment on above: Result Comment: Rebeka valero note: LIPASE revised reference range effective 22. New Lipase methodology. Expected to produce lower values than the previous assay method. NEW Reference Range: 13 - 75 U/L Performed By: #### L 500.4050, L100.0100, L502.0500, L501.9520 #### [facility] [address] [place], [address] Magnesiumon 02-17-2024 Magnesium [Mass/Vol] 1.7 mg/dL Normal 1.6-2.6 [facility] Comment on above: Order Comment: Comme nts: may add to ED labs Performed By: #### L 501.5200 #### [facility] [address] [place], [address] Partial Thromboplast Timeon 02-17-2024 aPTT Coag (Bld) [Time] 24.6 s Normal 24.1-36.2 [facility] Comment on above: Performed By: #### L 300.4310, L300.3900 ####[facility] [address] [place], [address] Prothrombin Time w/INRon INR Coag (PPP) [Relative time] 1.1 {INR} Normal [facility] Comment on above: Performed By: #### L 300.4310, L300.3900 ####[facility] [address] [place], [address] PT Coag (PPP) [Time] 14.5 s Normal 11.7-14.9 [facility] Comment on above: Performed By: #### L 300.4310, L300.3900 ####[facility] [address] [place], [address] STROKE Brain/Head without Co nton 02-17-2024 STROKE Brain/Head without Cont [facility] Imaging Services [address] [place], [place] [address] STROKE Brain/Head without Cont MR#: [id number] Acct: [id number] Name: THIAGO PIERRE Rep #: [id number] : 1955 F 68 From: Kiran Bolton MD PCP: ARIA Long, [facility] [employer] Status: REG ER Study: STROKE Brain/Head without Cont Date of Exam: 0 02/17/24 Exam# [id number] Ordering Dr: Antonio Herr MD ADDENDUM by Dr. Kiran Bolton MD on 02/17/24 at 1942 [id number] INDICATION: WEAKNESS EXAMINATION: CT BRAIN - CT Head Stroke Protocol W/O Contrast Injection TECHNIQUE: Multiple axial images were obtained of the head without intravenous contrast. The protocol utilizes one or more of the following dose reduction techniques: automated exposure control, adjustment of mA and/or kV according to patient size,and/or use of iterative reconstruction technique. IV Contrast dosage and agent: None. RADIATION DOSAGE (If Supplied By Facility): CTDIvol = ( 44.99 ) mGy, DLP = ( 796.11 ) mGycm COMPARISON: August 17, 2020 FINDINGS: BRAIN PARENCHYMA: No intra- or extra-axial hemorrhage. Moderate periventricular white matter ischemic changes. No evidence of acute infarct. No intracranial mass or mass effect. There is preservation of the trejo/white matter interface. Posterior fossa structures are unremarkable. Possible tiny old lacunar infarct of the right basal ganglia versus prominent perivascular space CSF SPACES: Appropriate for age. No hydrocephalus. Basal cisterns are patent. CALVARIUM, SKULL BASE, PARANASAL SINUSES AND MASTOID AIR CELLS: Clear. No discrete lytic or blastic abnormalities. Calcific plaquing of the cavernous carotids ORBITS: Both globes, extraocular muscles, optic nerves and retrobulbar fat appear unremarkable. No significant change since prior study 02/17/241941 Date cc: [facility] [place]; Dr. Antonio Herr MD * Signed ADDENDUM by Dr. Kiran Bolton MD on 02/17/[address]/STROKE Brain/Head without Cont IMPRESSION: Moderate periventricular white matter ischemic changes and possible tiny old right lacunar infarct. No mass or acute bleed. If concern for acute infarct MRI recommended N.B. : The above Results were Read Back by Kiran Bolton MD to Antonio Herr MD, and understanding confirmed on 02/17/2024 19:44:03 (ET). Electronically Signed: Kiran Bolton MD at 19:42 EDT Reading Location ID and State: [facility] / [place] Tel , Service support , 02/17/241949 Date cc: [facility] [place] Valencia; Dr. Antonio Herr MD * Signed We are attempting to reach an attending provider to discuss findings. An addendum with communication details will be sent when the communication is complete. [id number] INDICATION: WEAKNESS EXAMINATION: CT BRAIN - CT Head Stroke Protocol W/O Contrast Injection TECHNIQUE: Multiple axial images were obtained of the head without intravenous contrast. The protocol utilizes one or more of the following dose reduction techniques: automated exposure control, adjustment of mA and/or kV according to patient size,and/or use of iterative reconstruction technique. IV Contrast dosage and agent: None. RADIATION DOSAGE (If Supplied By Facility): CTDIvol = ( 44.99 ) mGy, DLP = ( 796.11 ) mGycm COMPARISON: August 17, 2020 FINDINGS: BRAIN PARENCHYMA: No intra- or extra-axial hemorrhage. Moderate periventricular white matter ischemic changes. No evidence of acute infarct. No intracranial mass or mass effect. There is preservation of the trejo/white matter interface. Posterior fossa structures are unremarkable. Possible tiny old lacunar infarct of the right basal ganglia versus prominent perivascular space CSF SPACES: Appropriate for age. No hydrocephalus. Basal cisterns are patent. CALVARIUM, SKULL BASE, PARANASAL SINUSES AND MASTOID AIR CELLS: Clear. No discrete lytic or blastic abnormalities. Calcific plaquing of the cavernous carotids ORBITS: Both globes, extraocular muscles, optic nerves and retrobulbar fat appear unremarkable. No significant change since prior study CT/STROKE Brain/Head without Cont IMPRESSION: Moderate periventricular white matter ischemic changes and possible tiny old right lacunar infarct. No mass or acute bleed. If concern for acute infarct MRI recommended Electronically Signed: Kiran Bolton MD at 19:42 EDT Reading Location ID and State: [facility] / [place] Tel , Service support , CC: [facility]le Valencia; Dr. Antonio Herr MD Cutter And Edge Trimmer: Sign (more content not included)... Normal [facility] STROKE CTA Head AND Neck W/C onon 02-17-2024 STROKE CTA Head AND Neck W/Con [facility] Imaging Services [address] [place] [address] STROKE CTA Head AND Neck W/Con MR#: [id number] Acct: [id number] Name: THIAGO PIERRE Rep #: [id number] : 1955 F 68 From: Kiran Bolton MD PCP: Sarah Valencia [facility] Status: REG ER Study: STROKE CTA Head AND Neck W/Con Date of Exam: 0 02/17/24 Exam# [id number] Ordering Dr: Antonio Herr MD ADDENDUM by Dr. Kiran Bolton MD on 02/17/24 at 1957 [id number] STUDY: CTA HEAD AND NECK WITH CONTRAST REASON FOR EXAM: Female, 68 years old. dysarthria RADIATION DOSAGE (If Supplied By Facility): CTDIvol = ( 22.2 ) mGy, DLP = ( 676.68 ) mGycm TECHNIQUE: CT angiography was performed with a multi-detector CT scanner. Data acquisition was obtained from the skull base through the vertex following intravenous administration of IV 100mL Isovue-370. MIP images were reconstructed from the axial data set. Post-processing of the angiographic images was performed, with multiplanar reformation and 3D reconstruction. Individualized dose optimization techniques were used for this CT. COMPARISON: No relevant priors. FINDINGS: Normal bilateral petrous carotid arteries. Normal right cavernous carotid artery with a normal supraclinoid bifurcation. Normal left cavernous carotid artery with a normal supraclinoid bifurcation. Normal right A1 segments of the anterior cerebral artery. Normal left A1 segments of the anterior cerebral artery. Anterior communicating artery not visualized consistent with normal variant). Normal bilateral A2 segments of the anterior cerebral arteries. Normal right M1 and M2 segments of the middle cerebral arteries, with a normal M1 bifurcation. Normal left M1 and M2 segments of the middle cerebral arteries, with a normal M1 bifurcation. Posterior communicating arteries aren''t visualized consistent with normal variant). Normal bilateral vertebral arteries. Normal basilar artery with a normal basilar bifurcation. The visualized bilateral superior cerebellar (SCA) arteries are normal. Normal right posterior cerebral artery. Severely stenosed P2 segment of left posterior cerebral. There is no demonstrated aneurysm of the [place] of [place]. There is no demonstrated abnormality of the visualized brain. AORTIC ARCH: Normal visualized aortic arch. Normal origins of the brachiocephalic, left common carotid, and left subclavian arteries. RIGHT CAROTID ARTERIES: Normal right common carotid artery (CCA). Mild calcific plaquing of the right common carotid bulb. Mild calcific plaquing of the origin of the right internal carotid (ICA) artery without a hemodynamically significant stenosis. Normal visualized cervical portion of the right internal carotid artery. Normal origin of the right external carotid artery (ECA). LEFT CAROTID ARTERIES: Minor calcific plaquing of the left common carotid artery (CCA). Normal left common carotid bulb. Normal origin of the left internal carotid (ICA) artery without a hemodynamically significant stenosis. Normal visualized cervical portion of the left internal carotid artery. Normal origin of the left external carotid artery (ECA). VERTEBRAL ARTERIES: Normal bilateral vertebral arteries. 02/17/241956 Date cc: [facility] Valencia; Dr. Antonio Herr MD * Signed ADDENDUM by Dr. Kiran Bolton MD on 02/17/[address]/STROKE CTA Head AND Neck W/Con IMPRESSION: Mild atherosclerotic changes of the head and neck with most severe stenosis of the P2 segment of the left posterior cerebral N.B. : The above Results were Read Back by Kiran Bolton MD to Antonio Herr MD, and understanding confirmed on 02/17/2024 20:03:41 (ET). Electronically Signed: Kiran Bolton MD at 19:57 EDT , 02/17/242009 Date cc: [facility]; Dr. Antonio Herr MD * Signed We are attempting to reach an attending provider to discuss findings. An addendum with communication details will be sent when the communication is complete. [id number] STUDY: CTA HEAD AND NECK WITH CONTRAST REASON FOR EXAM: Female, 68 years old. dysarthria RADIATION DOSAGE (If Supplied By Facility): CTDIvol = ( 22.2 ) mGy, DLP = ( 676.68 ) mGycm TECHNIQUE: CT angiography was performed with a multi-detector CT scanner. Data acquisition was obtained from the skull base through the vertex following intravenous administration of IV 100mL Isovue-370. MIP images were reconstructed from the axial data set. Post-processing of the angiographic images was performed, with multip (more content not included)... Normal [facility] Endocrinology Visit Reporton 01-17-2024 Endocrinology Visit Report [facility] [address] [place] [address] OFFICE VISIT Date of Service: 01/17/24 MR#: [id number] Acct: [id number] Name: THIAGO PIERRE Rep #: [id number] : 1955 Provider: EVENS agtes Age/Sex: 68/F [facility] [facility] Status: Signed Intake Vital Signs 10/03/23 09:45 12/31/23 10:23 01/17/24 10:12 Height 5 ft 5 in 5 ft 5 in 5 ft 5 in Weight: 244 lb 8 oz BMI 40.6 BP 146/82 H Blood Pressure Location Lt brachial Position Sitting Respiration 16 Pulse 60 Pulse Source Monitor Temp 97.2 F L Temp Source Temporal Pulse Oximetry (%) 94 Oxygen Delivery Method room air Intake Visit Reasons: 3 M FU Chief Complaint: f/u diabetes Technical Specialist Required: No Accompanied by: Is patient in pain?: No Allergies red dye Allergy (Verified 01/17/24 10:09) Hives Hoecpiq-OWH-BjX Reductase Inhibitor (Gxfmmbp-Lhy-Czx Reductase Inhibitor) Adverse Reaction (Severe, Verified 01/17/24 10:09) Myalgias Medications ???Medication ???Instructions ???Recorded ???Confirmed ???Type gabapentin 300 mg capsule 600 mg PO QHS NERVE PAIN 01/12/16 01/17/24 History aspirin 81 mg tablet,delayed 81 mg PO DAILY@0800 HEALTH 01/26/17 01/17/24 History release MAINTENANCE cholecalciferol (vitamin D3) 50 2,000 unit PO PAYNE SUPPLEMENT 01/26/17 01/17/24 History mcg (2,000 unit) capsule fluoxetine 40 mg capsule (Prozac) 40 mg PO DAILY depression 11/01/18 01/17/24 History cetirizine 10 mg tablet (Zyrtec) 10 mg PO DAILY PRN Allergies 07/23/20 01/17/24 History magnesium chloride 71.5 mg 71.5 mg PO DAILY 07/23/20 01/17/24 History (magnesium chloride) tablet,delayed release (Slow-Mag) meclizine 25 mg tablet 25 mg PO TID PRN dizziness 07/23/20 01/17/24 History Handicap Parking Placard #1 ea 05/09/22 01/17/24 Rx ondansetron 4 mg disintegrating 4 mg PO Q6H PRN nausea and 06/01/22 01/17/24 Rx tablet vomiting #7 tabs amlodipine 5 mg tablet 5 mg PO DAILY #90 tabs 02/01/23 01/17/24 Rx ezetimibe 10 mg tablet (Zetia) 10 mg PO DAILY #90 tabs 02/01/23 01/17/24 Rx omeprazole 20 mg tablet,delayed 40 mg PO DAILY 07/02/23 01/17/24 History release glipizide 5 mg tablet 5 mg PO DAILY 07/04/23 01/17/24 History sacubitril 97 mg-valsartan 103 mg 1 tab PO BID #180 tabs 09/12/23 01/17/24 Rx tablet (Entresto) cyclobenzaprine 10 mg tablet 5 mg (1/2 x 10 mg) PO TID PRN 09/13/23 01/17/24 Rx Muscle Spasm #20 TABLETS hydrocodone-acetaminoph en 5-325mg 1 tab PO Q6H PRN PRN Pain 3 days 09/13/23 01/17/24 Rx 5mg-325mg #10 TABLETS Novolog FlexPen U-100 Insulin 100 12 unit (0.12 mL) subcut TID #30 mL 10/04/23 01/17/24 Rx unit/mL (3 mL) subcutaneous (insulin aspart U-100) carvedilol 25 mg tablet 25 mg PO BID #180 tabs 12/31/23 01/17/24 Rx furosemide 20 mg tablet 20 mg PO QDAY water pill #30 tabs 12/31/23 01/17/24 Rx insulin aspart U-100 100 unit/mL 12 unit subcut .COMPLEX Diabetes 12/31/23 01/17/24 History (3 mL) subcutaneous pen insulin degludec 100 unit/mL (3 14 unit subcut DAILY 12/31/23 01/17/24 History mL) subcutaneous pen (Tresiba FlexTouch U-100 insulin) Have you fallen in the past year?: No PFSH Medical History Vertigo Carotid artery disease Pure hypercholesterolemia Essential hypertension 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 Nonrheumatic mitral (valve) insufficiency Dilated cardiomyopathy Chronic systolic (congestive) heart failure BALWINDER (acute kidney injury) Abnormal electrocardiogram Systolic CHF, acute Hypertension Obesity (BMI 30-39.9) Hyperlipidemia Diabetes mellitus, type II NICOLLE (obstructive sleep apnea) Surgical History History of eye surgery History of left heart catheterization (LHC) ( 05/26/15) Status post foot surgery Status post breast reduction S/P hysterectomy History of bilateral breast reduction surgery History of bilateral foot surgery History of hysterectomy Cardiac defibrillator in situ Family History Father , Lung cancer Lung cancer Mother , Breast cancer Breast cancer Brother Cancer lymphoma Social History Smoking Status: Former smoker quit date: 06/11/06 alcohol intake: never substance use type: does not use caffeine: No what type of physical activity do you participate in: none seatbelt use: always do you feel safe at home: Yes HPI HPI Chief Complaint: f/u diabetes Details: THIAGO PIERRE is a 68 F who presents to the office today for evaluation and management of diabetes. A1C today is 7.7%, i (more content not included)... Normal [facility] Pacemaker Checkon 01-09-2024 Pacemaker Check [facility] [address] [place], [place] [address] Pacemaker Check Date of Service: 01/09/24 1310 MR#: [id number] Acct: [id number] Name: THIAGO PIERRE Rep #: [id number] : 1955 From: Rachel Field Age/Sex: 68/F Location: [facility] Status: Signed Billing Codes ICD Device Billing: ICD Dev Prog Eval, Multi Assessment and Plan Assessment and Plan (1) Cardiac defibrillator in situ: Status: Chronic Comment: Implanted 03/16/2016 mala Garcia, [facility] (2) Dilated cardiomyopathy: Status: Chronic Comment: Ejection fraction 20% per echo 01/13/2016 @ [facility] (3) Chronic systolic (congestive) heart failure: Status: Chronic 01/09/24 1311 Date Rachel Field Cosigner Signature: Date (if applicable) CC: Normal [facility] CBC W/Diff, Automatedon 07-2 -2023 Absolute Lymph 1.81 X10 3/uL Normal 0.83-4.51 [facility] Comment on above: Performed By: #### L 500.4050, L100.0100, L502.0500, L501.9520 #### [facility] [address] [place], [address] Absolute Neut 4.1 X10 3/uL Normal 2.0-7.7 [facility] Comment on above: Performed By: #### L 500.4050, L100.0100, L502.0500, L501.9520 #### [facility] [address] [place], [address] Basophils/100 WBC (Bld) 1.2 % High 0-1 [facility] Comment on above: Performed By: #### L 500.4050, L100.0100, L502.0500, L501.9520 #### [facility] [address] [place], [address] Eosinophils/100 WBC (Bld) 2.0 % Normal 0-5 [facility] Comment on above: Performed By: #### L 500.4050, L100.0100, L502.0500, L501.9520 #### [facility] [address] [place], [address] Erythrocyte distribution width (RBC) [Ratio] 13.9 % Normal 11.6-14.6 [facility] Comment on above: Performed By: #### L 500.4050, L100.0100, L502.0500, L501.9520 #### [facility] [address] [place], [address] Hematocrit (Bld) [Volume fraction] 46.1 % Normal 37-47 [facility] Comment on above: Performed By: #### L 500.4050, L100.0100, L502.0500, L501.9520 #### [facility] [address] [place], [address] Hemoglobin (Bld) [Mass/Vol] 14.3 g/dL Normal 12.0-15.0 [facility] Comment on above: Performed By: #### L 500.4050, L100.0100, L502.0500, L501.9520 #### [facility] [address] [place], [address] IG% 0.500 Normal 0.0-0.9 [facility] Comment on above: Result Comment: IG% - Immature Granulocytes (promyelocytes, myelocytes and metamyelocytes) > 1% indicates that a LEFT SHIFT is Present. Performed By: #### L 500.4050, L100.0100, L502.0500, L501.9520 #### [facility] [address] [place], [address] Lymphocytes/100 WBC (Bld) 27.8 % Normal 19-41 [facility] Comment on above: Performed By: #### L 500.4050, L100.0100, L502.0500, L501.9520 #### [facility] [address] [place], [address] MCH (RBC) [Entitic mass] 27.3 pg Normal 27.0-32.0 [facility] Comment on above: Performed By: #### L 500.4050, L100.0100, L502.0500, L501.9520 #### [facility] [address] [place], [address] MCHC (RBC) [Mass/Vol] 31.0 g/dL Low 32-36 [facility] Comment on above: Performed By: #### L 500.4050, L100.0100, L502.0500, L501.9520 #### [facility] [address] [place], [address] MCV (RBC) [Entitic vol] 88.1 fL Normal 81-99 [facility] Comment on above: Performed By: #### L 500.4050, L100.0100, L502.0500, L501.9520 #### [facility] [address] [place], [address] Monocytes/100 WBC (Bld) 6.3 % Normal 0-10 [facility] Comment on above: Performed By: #### L 500.4050, L100.0100, L502.0500, L501.9520 #### [facility] [address] [place], [address] Neutrophils/100 WBC (Bld) 62.2 % Normal 47-70 [facility] Comment on above: Performed By: #### L 500.4050, L100.0100, L502.0500, L501.9520 #### [facility] [address] [place], [address] Nucleated RBC (Bld) [#/Vol] 0 10*3/uL Normal 0-5 [facility] Comment on above: Performed By: #### L 500.4050, L100.0100, L502.0500, L501.9520 #### [facility] [address] [place], [address] Platelet mean volume (Bld) [Entitic vol] 10.0 fL Normal 6.2-12.0 [facility] Comment on above: Performed By: #### L 500.4050, L100.0100, L502.0500, L501.9520 #### [facility] [address] [place], [address] Platelets (Bld) [#/Vol] 280 10*3/uL Normal 150-450 [facility] Comment on above: Performed By: #### L 500.4050, L100.0100, L502.0500, L501.9520 #### [facility] [address] [place], [address] RBC (Bld) [#/Vol] 5.23 10*6/uL Normal 4.2-5.4 [facility] Comment on above: Performed By: #### L 500.4050, L100.0100, L502.0500, L501.9520 #### [facility] [address] [place], [address] RDW SD 44.2 fl High 35.1-43.9 [facility] Comment on above: Performed By: #### L 500.4050, L100.0100, L502.0500, L501.9520 #### [facility] [address] [place], [address] WBC (Bld) [#/Vol] 6.5 10*3/uL Normal 4.4-11.0 [facility] Comment on above: Performed By: #### L 500.4050, L100.0100, L502.0500, L501.9520 #### [facility] [address] [place], [address] [facility] Albumin [Mass/Vol] 3.3 g/dL Normal 3.2-5.0 [facility] Comment on above: Performed By: #### L 500.4050, L100.0100, L502.0500, L501.9520 #### [facility] [address] [place], [address] Albumin/Globulin [Mass ratio] 1.0 {ratio} Normal 0.9-2.4 [facility] Comment on above: Performed By: #### L 500.4050, L100.0100, L502.0500, L501.9520 #### [facility] [address] [place], [address] ALK P 85 U/L Normal 45-117 [facility] Comment on above: Performed By: #### L 500.4050, L100.0100, L502.0500, L501.9520 #### [facility] [address] [place], [address] ALT [Catalytic activity/Vol] 21 U/L Normal 13-56 [facility] Comment on above: Performed By: #### L 500.4050, L100.0100, L502.0500, L501.9520 #### [facility] [address] [place], [address] AST [Catalytic activity/Vol] 14 U/L Low 15-37 [facility] Comment on above: Performed By: #### L 500.4050, L100.0100, L502.0500, L501.9520 #### [facility] [address] [place], [address] Bilirubin [Mass/Vol] 0.80 mg/dL Normal 0.20-1.00 [facility] Comment on above: Result Comment: For patients on eltrombopag therapy, use of Dimension Steen TBIL is not recommended. Performed By: #### L 500.4050, L100.0100, L502.0500, L501.9520 #### [facility] [address] [place], [address] BUN/CRE 27.9 RATIO High 10-20 [facility] Comment on above: Performed By: #### L 500.4050, L100.0100, L502.0500, L501.9520 #### [facility] [address] [place], [address] CA,Total 8.2 mg/dL Low 8.5-10.1 [facility] Comment on above: Performed By: #### L 500.4050, L100.0100, L502.0500, L501.9520 #### [facility] [address] [place], [address] Chloride [Moles/Vol] 109 mmol/L High 98-107 [facility] Comment on above: Performed By: #### L 500.4050, L100.0100, L502.0500, L501.9520 #### [facility] [address] [place], [address] CO2 [Moles/Vol] 17.0 mmol/L Low 21.0-32.0 [facility] Comment on above: Performed By: #### L 500.4050, L100.0100, L502.0500, L501.9520 #### [facility] [address] [place], [address] Creatinine [Mass/Vol] 1.04 mg/dL High 0.55-1.02 [facility] Comment on above: Result Comment: The validity of the calculated GFR GFRAA in patients over 70 years has not been determined. Clinical correlation is essential. Performed By: #### L 500.4050, L100.0100, L502.0500, L501.9520 #### [facility] [address] [place], [address] EST GFR - AA 67 mL/min Normal >60 [facility] Comment on above: Result Comment: Afri can Trin[place] GFR Calc Performed By: #### L 500.4050, L100.0100, L502.0500, L501.9520 #### [facility] [address] [place], [address] GAP 11 Normal 5-15 [facility] Comment on above: Performed By: #### L 500.4050, L100.0100, L502.0500, L501.9520 #### [facility] [address] [place], [address] GFR/1.73 sq M.predicted among non-blacks MDRD (S/P/Bld) [Vol rate/Area] 56 mL/min/{1.73_m2} Low >60 [facility] Comment on above: Result Comment: Non- GFR Calc Performed By: #### L 500.4050, L100.0100, L502.0500, L501.9520 #### [facility] [address] [place], [address] Globulin (S) [Mass/Vol] 3.4 g/dL Normal 2.2-4.2 [facility] Comment on above: Performed By: #### L 500.4050, L100.0100, L502.0500, L501.9520 #### [facility] [address] [place], [address] Glucose [Mass/Vol] 192 mg/dL High 74-106 [facility] Comment on above: Result Comment: Fast ing Glucose result greater than or equal to 126 mg/dL suggests DIABETES MELLITUS per A.D.A. criteria. Performed By: #### L 500.4050, L100.0100, L502.0500, L501.9520 #### [facility] [address] [place], [address] Potassium [Moles/Vol] 4.2 mmol/L Normal 3.5-5.1 [facility] Comment on above: Performed By: #### L 500.4050, L100.0100, L502.0500, L501.9520 #### [facility] [address] [place], [address] Sodium [Moles/Vol] 137 mmol/L Normal 136-145 [facility] Comment on above: Performed By: #### L 500.4050, L100.0100, L502.0500, L501.9520 #### [facility] [address] [place], [address] T PROT 6.7 g/dL Normal 6.4-8.2 [facility] Comment on above: Performed By: #### L 500.4050, L100.0100, L502.0500, L501.9520 #### [facility] [address] [place], [address] Urea nitrogen [Mass/Vol] 29 mg/dL High 7-18 [facility] Comment on above: Performed By: #### L 500.4050, L100.0100, L502.0500, L501.9520 #### [facility] [address] [place], [address] Microalbumin,Random Urineon 01-01-2024 MICROALBUMIN,UR 16.6 mg/L Normal NO RANGE EST. [facility] Comment on above: Performed By: #### L 500.4050, L100.0100, L502.0500, L501.9520 #### [facility] [address] [place], [address] Thyroid Stim Hormone (TSH)on 01-01-2024 TSH 4.04 uIU/mL High 0.358-3.74 [facility] Comment on above: Performed By: #### L 500.4050, L100.0100, L502.0500, L501.9520 #### [facility] [address] [place], [place], [address] Cardiology Visit Reporton Cardiology Visit Report [facility] [address] [place] [address] OFFICE VISIT Date of Service: 12/31/23 MR#: [id number] Acct: [id number] Name: THIAGO PIERRE Rep #: [id number] : 1955 Provider: EVENS trivedi Age/Sex: 68/F Location: [facility] [place] Status: Signed HPI HPI History of Present Illness Details: THIAGO FLORES, is a 68 year old white female who presents to the office today for an outpatient cardiovascular follow-up visit. 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 From a cardiac standpoint, the patient is doing well. She denies any palpitations, chest pain, pressure or heaviness. She denies SOB, Orthopnea, and PND. She does not have bleeding issues; no blood in urine, stool or nosebleeds. She denies any decrease in energy level, myalgias, or claudication. She does not have edema, or sudden weight gain. She does have occasional lightheadedness-she attributes this to her vertigo. She denies dizziness, syncopal or near syncopal episodes, and headaches. Intake Vital Signs 07/02/23 09:50 10/03/23 09:45 12/31/23 10:23 Height 5 ft 5 in 5 ft 5 in 5 ft 5 in Weight: 245 lb BMI 40.7 BP 143/84 H Blood Pressure Location Lt brachial Position Sitting Respiration 16 Pulse 60 Pulse Source Monitor Pulse Oximetry (%) 96 Oxygen Delivery Method room air Intake Visit Reasons: 6 m fu Accompanied by: Is patient in pain?: No Allergies red dye Allergy (Verified 12/31/23 10:36) Hives Hkxfsew-AHJ-XnD Reductase Inhibitor (Pktpavy-Bbt-Yml Reductase Inhibitor) Adverse Reaction (Severe, Verified 12/31/23 10:36) Myalgias Medications ???Medication ???Instructions ???Recorded ???Confirmed ???Type gabapentin 300 mg capsule 600 mg PO QHS NERVE PAIN 01/12/16 12/31/23 History aspirin 81 mg tablet,delayed 81 mg PO DAILY@0800 HEALTH 01/26/17 12/31/23 History release MAINTENANCE cholecalciferol (vitamin D3) 50 2,000 unit PO PAYNE SUPPLEMENT 01/26/17 12/31/23 History mcg (2,000 unit) capsule fluoxetine 40 mg capsule (Prozac) 40 mg PO DAILY depression 11/01/18 12/31/23 History cetirizine 10 mg tablet (Zyrtec) 10 mg PO DAILY PRN Allergies 07/23/20 12/31/23 History magnesium chloride 71.5 mg 71.5 mg PO DAILY 07/23/20 12/31/23 History (magnesium chloride) tablet,delayed release (Slow-Mag) meclizine 25 mg tablet 25 mg PO TID PRN dizziness 07/23/20 12/31/23 History Handicap Parking Placard #1 ea 05/09/22 12/31/23 Rx ondansetron 4 mg disintegrating 4 mg PO Q6H PRN nausea and 06/01/22 12/31/23 Rx tablet vomiting #7 tabs amlodipine 5 mg tablet 5 mg PO DAILY #90 tabs 02/01/23 12/31/23 Rx ezetimibe 10 mg tablet (Zetia) 10 mg PO DAILY #90 tabs 02/01/23 12/31/23 Rx omeprazole 20 mg tablet,delayed 40 mg PO DAILY 07/02/23 12/31/23 History release glipizide 5 mg tablet 5 mg PO DAILY 07/04/23 12/31/23 History sacubitril 97 mg-valsartan 103 mg 1 tab PO BID #180 tabs 09/12/23 12/31/23 Rx tablet (Entresto) cyclobenzaprine 10 mg tablet 5 mg (1/2 x 10 mg) PO TID PRN 09/13/23 12/31/23 Rx Muscle Spasm #20 TABLETS hydrocodone-acetaminoph en 5-325mg 1 tab PO Q6H PRN PRN Pain 3 days 09/13/23 12/31/23 Rx 5mg-325mg #10 TABLETS semaglutide 1 mg/dose (4 mg/3 mL) 1 mg (0.75 mL) subcut QWEEK #3 mL 10/03/23 12/31/23 Rx subcutaneous pen injector (Ozempic) Novolog FlexPen U-100 Insulin 100 12 unit (0.12 mL) subcut TID #30 mL 10/04/23 12/31/23 Rx unit/mL (3 mL) subcutaneous (insulin aspart U-100) carvedilol 25 mg tablet 25 mg PO BID #180 tabs 12/31/23 12/31/23 Rx furosemide 20 mg tablet 20 mg PO QDAY water pill #30 tabs 12/31/23 12/31/23 Rx insulin aspart U-100 100 unit/mL 12 unit subcut .COMPLEX Diabetes 12/31/23 12/31/23 History (3 mL) subcutaneous pen insulin degludec 100 unit/mL (3 14 unit subcut DAILY 12/31/23 12/31/23 History mL) subcutaneous pen (Tresiba FlexTouch U-100 insulin) Ejection fraction %: 50 Have you fallen in the past year?: Yes (12/13/23. vision issues, missed step. ) [facility] Medical History (Reviewed 12/31/23 @ 10:35 by Lico Noel [employer], [employer]) Vertigo Carotid artery disease Pure hypercholesterolemia Essential hypertension 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 Nonrheumatic mitral (valve) insufficiency Dilated cardiomyopathy Chronic systolic (congestive) heart failure BALWINDER (acute kidney injury) Abnormal electrocardiogram Systolic CHF, acute Hypertension Obesity (BMI 30-39.9) Hyperlipidemia Diabetes mellitus, type II NICOLLE (obstructive sleep apnea) Surgical History History of eye surgery (more content not included)... Normal [facility] BSCAN OS (LEFT EYE)on 2023 [facility] Study observation (narrative) [facility] Left eye Photo documentation on 11-27-2023 [facility] Radiology Study observation (narrative) [facility] Absolute lymphocyte countOrd ered By: Justyn Lu on 09-13-2023 Lymphocytes Auto (Unsp spec) [#/Vol] 2.63 10*3/uL 0.83-4.51 [facility] Automated lymphocyte count a s percentage of total leukocytesOrdered By: Justyn Lu on 09-13-2023 Lymphocytes/100 WBC Auto (Unsp spec) 26.6 % 19-41 [facility] Basophil percentageOrdered B y: Justyn Lu on 09-13-2023 Basophils/100 WBC (Bld) 0.6 % 0-1 [facility] Chloride [Moles/Vol] 105 mmol/L 98-107 [facility] Eosinophils/100 WBC (Bld) 1.4 % 0-5 [facility] Glucose [Mass/Vol] 124 mg/dL 74-106 [facility] Comment on above: Fasting Glucose resu lt from 100 to 125 mg/dL suggests IMPAIRED HOMEOSTASIS per A.D.A. criteria. Hemoglobin (Bld) [Mass/Vol] 15.0 g/dL 12.0-15.0 [facility] Monocytes/100 WBC (Bld) 6.1 % 0-10 [facility] Neutrophils (Bld) [#/Vol] 6.4 10*3/uL 2.0-7.7 [facility] Neutrophils/100 WBC (Bld) 64.8 % 47-70 [facility] Potassium [Moles/Vol] 3.9 mmol/L 3.5-5.1 [facility] Sodium [Moles/Vol] 137 mmol/L 136-145 [facility] WBC (Bld) [#/Vol] 9.9 10*3/uL 4.4-11.0 [facility] Determination of erythrocyte mean corpuscular volume (MCV)Ordered By: Justyn Lu on 09-13-2023 MCV (RBC) [Entitic vol] 87.0 fL 81-99 [facility] Erythrocyte distribution wid th ratioOrdered By: Justyn Lu on 09-13-2023 Erythrocyte distribution width (RBC) [Ratio] 12.8 % 11.6-14.6 [facility] Erythrocyte distribution wid th standard deviationOrdered By: Justyn Lu on 09-13-2023 Erythrocyte distribution width (RBC) [Entitic vol] 40.1 fL 35.1-43.9 [facility] Hematocrit Auto (Bld) [Volum e fraction]Ordered By: Justyn Lu on 09-13-2023 Hematocrit (Bld) [Volume fraction] 46.9 % 37-47 [facility] Immature granulocytes/100 WB C Auto (Bld)Ordered By: Justyn Lu on 09-13-2023 Immature granulocytes/100 WBC (Bld) 0.500 % 0.0-0.9 [facility] Comment on above: IG% - Immature Granu locytes (promyelocytes, myelocytes and metamyelocytes) > 1% indicates that a LEFT SHIFT is Present. Laboratory - Chemistry and C hemistry - challengeOrdered By: Justyn Lu on 09-13-2023 CO2 [Moles/Vol] 26.0 mmol/L 21.0-32.0 [facility] Urea nitrogen/Creatinine [Mass ratio] 21.2 mg/mg 10-20 [facility] Laboratory - Hematology and Cell countsOrdered By: Justyn Lu on 09-13-2023 MCH (RBC) [Entitic mass] 27.8 pg 27.0-32.0 [facility] MCHC (RBC) [Mass/Vol] 32.0 g/dL 32-36 [facility] Nucleated RBC/100 WBC (Bld) [Ratio] 0 % 0-5 [facility] Platelet mean volume (Bld) [Entitic vol] 9.5 fL 6.2-12.0 [facility] Platelets (Bld) [#/Vol] 343 10*3/uL 150-450 [facility] No Panel InformationOrdered By: Justyn Lu on 09-13-2023 Estimated Creatinine Clearance Calc 60.79 ml/min [facility] Estimated GFR (MDRD) Amer 67 mL/min >60 [facility] Comment on above: GFR Calc Estimated GFR (MDRD) Non-Af Amer 56 mL/min >60 [facility] Comment on above: Non- GFR Calc Troponin I High Sensitivity 5 pg/mL 3.0-54.0 [facility] Comment on above: Please Note: New Miladis t Units and Gender Specific Reference Ranges. For more information see Policy Stat Procedure Steen High Sensitivity Troponin (TNIH) and attachments. RBC Auto (Bld) [#/Vol]Ordere d By: Justyn Lu on 09-13-2023 RBC (Bld) [#/Vol] 5.39 10*6/uL 4.2-5.4 [facility] Serum or plasma calcium gavi urement (mass/volume)Ordered By: Justyn Lu on 09-13-2023 Calcium [Mass/Vol] 9.2 mg/dL 8.5-10.1 [facility] Serum or plasma creatinine m easurement (mass/volume)Ordered By: Justyn uL on 09-13-2023 Creatinine [Mass/Vol] 1.04 mg/dL 0.55-1.02 [facility] Comment on above: The validity of the calculated GFR & GFRAA in patients over 70 years has not been determined. Clinical correlation is essential. Serum or plasma urea nitroge n measurement (mass/volume)Ordered By: Justyn Lu on 09-13-2023 Urea nitrogen [Mass/Vol] 22 mg/dL 7-18 [facility] Thin prep Papanicolaou smear with manual screeningOrdered By: Justyn Lu on 09-13-2023 Thin prep Papanicolaou smear with manual screening 6 5-15 [facility] Basophil percentageOrdered B y: Sarah Valencia on 07-18-2023 Bilirubin [Mass/Vol] 0.90 mg/dL 0.20-1.00 [facility] Comment on above: For patients on eltr ombopag therapy, use of Dimension Steen TBIL is not recommended. Chloride [Moles/Vol] 105 mmol/L 98-107 [facility] Cholesterol [Mass/Vol] 183 mg/dL <200 [facility] Comment on above: <200 mg/dL Desirable 200-240 mg/dL Borderline >240 mg/dL High Risk Glucose [Mass/Vol] 162 mg/dL 74-106 [facility] Comment on above: Fasting Glucose resu lt greater than or equal to 126 mg/dL suggests DIABETES MELLITUS per A.D.A. criteria. Hemoglobin (Bld) [Mass/Vol] 13.7 g/dL 12.0-15.0 [facility] Potassium [Moles/Vol] 4.2 mmol/L 3.5-5.1 [facility] Protein [Mass/Vol] 6.8 g/dL 6.4-8.2 [facility] Sodium [Moles/Vol] 133 mmol/L 136-145 [facility] Triglyceride [Mass/Vol] 170 mg/dL <199 [facility] Comment on above: The drugs N-Acetylcy steine and Metamizole may falsely depress this assay.Serum Triglycerides Reference Interval Normal <150 mg/dL Borderline high 150 - 199 mg/dL High 200 - 499 mg/dL Very High > or = 500 mg/dL WBC (Bld) [#/Vol] 7.4 10*3/uL 4.4-11.0 [facility] Determination of erythrocyte mean corpuscular volume (MCV)Ordered By: Sarah Valencia on 07-18-2023 MCV (RBC) [Entitic vol] 89.2 fL 81-99 [facility] Erythrocyte distribution wid th ratioOrdered By: Sarah Valencia on 07-18-2023 Erythrocyte distribution width (RBC) [Ratio] 13.0 % 11.6-14.6 [facility] Erythrocyte distribution wid th standard deviationOrdered By: Sarah Valencia on 07-18-2023 Erythrocyte distribution width (RBC) [Entitic vol] 42.6 fL 35.1-43.9 [facility] Hematocrit Auto (Bld) [Volum e fraction]Ordered By: Sarah Valencia on 07-18-2023 Hematocrit (Bld) [Volume fraction] 43.7 % 37-47 [facility] Laboratory - Chemistry and C hemistry - challengeOrdered By: Sarah Valencia on 07-18-2023 Albumin/Globulin [Mass ratio] 0.9 {ratio} 0.9-2.4 [facility] ALP [Catalytic activity/Vol] 91 U/L 45-117 [facility] ALT [Catalytic activity/Vol] 19 U/L 13-56 [facility] Cholesterol in HDL [Mass/Vol] 49 mg/dL >40 [facility] Comment on above: The drugs N-Acetylcy steine and Metamizole may falsely depress this assay. Reference Range HDL <40 mg/dL Low HDL Cholesterol HDL >or= 60 mg/dL High HDL Cholesterol Cholesterol in LDL [Mass/Vol] 100 mg/dL 0-130 [facility] CO2 [Moles/Vol] 26.0 mmol/L 21.0-32.0 [facility] Globulin (S) [Mass/Vol] 3.6 g/dL 2.2-4.2 [facility] Urea nitrogen/Creatinine [Mass ratio] 25.2 mg/mg 10-20 [facility] Laboratory - Hematology and Cell countsOrdered By: Sarah Valencia on 07-18-2023 MCH (RBC) [Entitic mass] 28.0 pg 27.0-32.0 [facility] MCHC (RBC) [Mass/Vol] 31.4 g/dL 32-36 [facility] Platelet mean volume (Bld) [Entitic vol] 9.0 fL 6.2-12.0 [facility] Platelets (Bld) [#/Vol] 294 10*3/uL 150-450 [facility] No Panel InformationOrdered By: Sarah Valencia on 07-18-2023 Estimated GFR (MDRD) Amer 65 mL/min >60 [facility] Comment on above: GFR Calc Estimated GFR (MDRD) Non-Af Amer 54 mL/min >60 [facility] Comment on above: Non- GFR Calc VLDL Cholesterol 34 mg/dL 5-40 [facility] RBC Auto (Bld) [#/Vol]Ordere d By: Sarah Valencia on 07-18-2023 RBC (Bld) [#/Vol] 4.90 10*6/uL 4.2-5.4 [facility] Serum or plasma calcium gavi urement (mass/volume)Ordered By: Sarah Valencia on 07-18-2023 Calcium [Mass/Vol] 8.7 mg/dL 8.5-10.1 [facility] Serum or plasma creatinine m easurement (mass/volume)Ordered By: Sarah Valencia on 07-18-2023 Creatinine [Mass/Vol] 1.07 mg/dL 0.55-1.02 [facility] Comment on above: The validity of the calculated GFR & GFRAA in patients over 70 years has not been determined. Clinical correlation is essential. Serum or plasma urea nitroge n measurement (mass/volume)Ordered By: Sarah Valencia on 07-18-2023 Urea nitrogen [Mass/Vol] 27 mg/dL 7-18 [facility] Thin prep Papanicolaou smear with manual screeningOrdered By: Sarah Valencia on 07-18-2023 Thin prep Papanicolaou smear with manual screening 3.2 g/dL 3.2-5.0 [facility] Thin prep Papanicolaou smear with manual screening 9 U/L 15-37 [facility] Thin prep Papanicolaou smear with manual screening 2 5-15 [facility] Thin prep Papanicolaou smear with manual screening 58.7 mg/L NO RANGE EST. [facility] Whole blood hemoglobin A1c/t otal hemoglobin ratio (mass fraction)Ordered By: Sarah Valencia on 07-18-2023 HbA1c (Bld) [Mass fraction] 6.8 % 3.8-5.6 [facility] Comment on above: Normal < 5.7 % Predi abetic 5.7 - 6.4 % Diabetic >or= 6.5 % Please note range changes. 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 Images were obtained and stored in a permanent archive. MQ: [id number] COMPARISON: CT 11/08/2017 RESULT: Pancreas: Suboptimally visualized Liver: Echotexture: Normal, homogeneous. Echogenicity: Mildly increased Surface contour: Smooth Lesions: None. Biliary: No intrahepatic biliary duct dilation. CBD: 0.4 cm at the hilum. Gallbladder: Normal caliber -Contents: Single 7 mm mobile gallstone -Wall: Normal -Other: No pericholecystic fluid. Right Kidney: No hydronephrosis. Ascites: None. IMPRESSION: Mild hepatic steatosis. No hepatic lesion Cholelithiasis Suboptimal visualization of the pancreas Cutter And Edge Trimmer: TEMITOPE Transcribe Date/Time: Mar 05 2023 10:37A Dictated by : KEILA VALVERDE MD This examination was interpreted and the report reviewed and electronically signed by: KEILA VALVERDE MD on Mar 05 2023 10:39AM EST [id number] Normal [facility] Absolute lymphocyte countOrd ered By: Lico Noel on 02-01-2023 Lymphocytes Auto (Unsp spec) [#/Vol] 2.12 10*3/uL 0.83-4.51 [facility] Basophil percentageOrdered B y: Lico Noel on 02-01-2023 Basophils/100 WBC (Bld) 0.6 % 0-1 [facility] Chloride [Moles/Vol] 106 mmol/L 98-107 [facility] Eosinophils/100 WBC (Bld) 3.1 % 0-5 [facility] Glucose [Mass/Vol] 228 mg/dL 74-106 [facility] Comment on above: Glucose result great er than or equal to 200 mg/dLsuggests DIABETES MELLITUS per A.D.A. criteria. Neutrophils (Bld) [#/Vol] 3.9 10*3/uL 2.0-7.7 [facility] Neutrophils/100 WBC (Bld) 58.2 % 47-70 [facility] Potassium [Moles/Vol] 4.3 mmol/L 3.5-5.1 [facility] Sodium [Moles/Vol] 137 mmol/L 136-145 [facility] WBC (Bld) [#/Vol] 6.7 10*3/uL 4.4-11.0 [facility] Blood erythrocytes count (nu mber/volume)Ordered By: Lico Noel on 02-01-2023 RBC (Bld) [#/Vol] 4.77 10*6/uL 4.2-5.4 [facility] Blood hemoglobin measurement (mass/volume)Ordered By: Lico Noel on 02-01-2023 Hemoglobin (Bld) [Mass/Vol] 13.4 g/dL 12.0-15.0 [facility] Blood lymphocytes/100 leukoc ytesOrdered By: Lico Noel on 02-01-2023 Lymphocytes/100 WBC (Bld) 31.5 % 19-41 [facility] Blood monocytes/100 leukocyt esOrdered By: Lico Noel on 02-01-2023 Monocytes/100 WBC (Bld) 6.3 % 0-10 [facility] Blood platelet mean volumeOr dered By: Lico Noel on 02-01-2023 Platelet mean volume (Bld) [Entitic vol] 9.4 fL 6.2-12.0 [facility] Determination of erythrocyte mean corpuscular volume (MCV)Ordered By: Lico Noel on 02-01-2023 MCV (RBC) [Entitic vol] 89.5 fL 81-99 [facility] Hematocrit Auto (Bld) [Volum e fraction]Ordered By: Lico Noel on 02-01-2023 Hematocrit (Bld) [Volume fraction] 42.7 % 37-47 [facility] Laboratory - Chemistry and C hemistry - challengeOrdered By: Lico Noel on 02-01-2023 CO2 [Moles/Vol] 26.0 mmol/L 21.0-32.0 [facility] Urea nitrogen/Creatinine [Mass ratio] 23.0 mg/mg 10-20 [facility] Laboratory - Hematology and Cell countsOrdered By: Lico Noel on 02-01-2023 Erythrocyte distribution width (RBC) [Entitic vol] 44.9 fL 35.1-43.9 [facility] Erythrocyte distribution width (RBC) [Ratio] 13.5 % 11.6-14.6 [facility] Immature granulocytes/100 WBC (Bld) 0.300 % 0.0-0.9 [facility] Comment on above: IG% - Immature Granu locytes (promyelocytes, myelocytes and metamyelocytes) > 1% indicates that a LEFT SHIFT is Present. MCH (RBC) [Entitic mass] 28.1 pg 27.0-32.0 [facility] Nucleated RBC/100 WBC (Bld) [Ratio] 0 % 0-5 [facility] MCHC Auto (RBC) [Mass/Vol]Or dered By: Lico Noel on 02-01-2023 MCHC (RBC) [Mass/Vol] 31.4 g/dL 32-36 [facility] No Panel InformationOrdered By: Lico Noel on 02-01-2023 Estimated GFR (MDRD) Amer 61 mL/min >60 [facility] Comment on above: GFR Calc Estimated GFR (MDRD) Non-Af Amer 51 mL/min >60 [facility] Comment on above: Non- GFR Calc Thyroid Stimulating Hormone (TSH) 1.73 uIU/mL 0.358-3.74 [facility] Platelets bldOrdered By: Tucker Noel on 02-01-2023 Platelets (Bld) [#/Vol] 325 10*3/uL 150-450 [facility] Serum or plasma calcium gavi urement (mass/volume)Ordered By: Lico Noel on 02-01-2023 Calcium [Mass/Vol] 8.3 mg/dL 8.5-10.1 [facility] Serum or plasma creatinine m easurement (mass/volume)Ordered By: Lico Noel on 02-01-2023 Creatinine [Mass/Vol] 1.13 mg/dL 0.55-1.02 [facility] Comment on above: The validity of the calculated GFR & GFRAA in patients over 70 years has not been determined. Clinical correlation is essential. Serum or plasma urea nitroge n measurement (mass/volume)Ordered By: Lico Noel on 02-01-2023 Urea nitrogen [Mass/Vol] 26 mg/dL 7-18 [facility] Thin prep Papanicolaou smear with manual screeningOrdered By: Lico Noel on 02-01-2023 Thin prep Papanicolaou smear with manual screening 5 5-15 [facility] Basophil percentageOrdered B y: GENIE ENCARNACION on 12-27-2022 Bilirubin [Mass/Vol] 0.60 mg/dL 0.20-1.00 [facility] Comment on above: For patients on eltr ombopag therapy, use of Dimension Steen TBIL is not recommended. Chloride [Moles/Vol] 106 mmol/L 98-107 [facility] Cholesterol [Mass/Vol] 183 mg/dL <200 [facility] Comment on above: <200 mg/dL Desirable 200-240 mg/dL Borderline >240 mg/dL High Risk Glucose [Mass/Vol] 222 mg/dL 74-106 [facility] Comment on above: Glucose result great er than or equal to 200 mg/dLsuggests DIABETES MELLITUS per A.D.A. criteria. Potassium [Moles/Vol] 4.0 mmol/L 3.5-5.1 [facility] Protein [Mass/Vol] 6.6 g/dL 6.4-8.2 [facility] Sodium [Moles/Vol] 139 mmol/L 136-145 [facility] Triglyceride [Mass/Vol] 127 mg/dL <199 [facility] Comment on above: The drugs N-Acetylcy steine and Metamizole may falsely depress this assay.Serum Triglycerides Reference Interval Normal <150 mg/dL Borderline high 150 - 199 mg/dL High 200 - 499 mg/dL Very High > or = 500 mg/dL WBC (Bld) [#/Vol] 7.6 10*3/uL 4.4-11.0 [facility] Blood erythrocytes count (nu mber/volume)Ordered By: [facility] on 12-27-2022 RBC (Bld) [#/Vol] 5.05 10*6/uL 4.2-5.4 [facility] Blood hemoglobin measurement (mass/volume)Ordered By: [facility] on 12-27-2022 Hemoglobin (Bld) [Mass/Vol] 14.1 g/dL 12.0-15.0 [facility] Blood platelet mean volumeOr dered By: [facility] on 12-27-2022 Platelet mean volume (Bld) [Entitic vol] 9.4 fL 6.2-12.0 [facility] Determination of erythrocyte mean corpuscular volume (MCV)Ordered By: [facility] on 12-27-2022 MCV (RBC) [Entitic vol] 88.7 fL 81-99 [facility] Hematocrit Auto (Bld) [Volum e fraction]Ordered By: [facility] on 12-27-2022 Hematocrit (Bld) [Volume fraction] 44.8 % 37-47 [facility] Laboratory - Chemistry and C hemistry - challengeOrdered By: [facility] on 12-27-2022 ALP [Catalytic activity/Vol] 73 U/L 45-117 [facility] ALT [Catalytic activity/Vol] 12 U/L 13-56 [facility] CO2 [Moles/Vol] 24.0 mmol/L 21.0-32.0 [facility] Cobalamin (Vitamin B12) [Mass/Vol] 295 pg/mL 211-911 [facility] Globulin (S) [Mass/Vol] 3.6 g/dL 2.2-4.2 [facility] Urea nitrogen/Creatinine [Mass ratio] 18.6 mg/mg 10-20 [facility] - Hematology and Cell countsOrdered By: GENIE ENCARNACION on 12-27-2022 Erythrocyte distribution width (RBC) [Entitic vol] 43.3 fL 35.1-43.9 [facility] Erythrocyte distribution width (RBC) [Ratio] 13.3 % 11.6-14.6 [facility] MCH (RBC) [Entitic mass] 27.9 pg 27.0-32.0 [facility] MCHC Auto (RBC) [Mass/Vol]Or dered By: GENIE ENCARNACION on 12-27-2022 MCHC (RBC) [Mass/Vol] 31.5 g/dL 32-36 [facility] No Panel InformationOrdered By: GENIE ENCARNACION on 12-27-2022 Estimated GFR (MDRD) Amer 69 mL/min >60 [facility] Comment on above: GFR Calc Estimated GFR (MDRD) Non-Af Amer 57 mL/min >60 [facility] Comment on above: Non- GFR Calc Thyroid Stimulating Hormone (TSH) 1.27 uIU/mL 0.358-3.74 [facility] Platelets bldOrdered By: FAB TAYLOR on 12-27-2022 Platelets (Bld) [#/Vol] 306 10*3/uL 150-450 [facility] Serum or plasma albumin gavi urement (mass/volume)Ordered By: GENIE ENCARNACION on 12-27-2022 Albumin [Mass/Vol] 3.0 g/dL 3.2-5.0 [facility] Serum or plasma albumin/glob ulin mass ratioOrdered By: GENIE ENCARNACION on 12-27-2022 Albumin/Globulin [Mass ratio] 0.8 {ratio} 0.9-2.4 [facility] Serum or plasma calcitriol m easurement (mass/volume)Ordered By: GENIE ENCARNACION on 12-27-2022 1,25-dihydroxyvitamin D3 [Mass/Vol] 29.9 pg/mL 24.8-81.5 [facility] Comment on above: Performed at: [address] [id number] Director: Chadwick Kim MD, Phone: [phone] Serum or plasma calcium gavi urement (mass/volume)Ordered By: [facility] on 12-27-2022 Calcium [Mass/Vol] 8.5 mg/dL 8.5-10.1 [facility] Serum or plasma cholesterol in HDL measurement (mass/volume)Ordered By: [facility] on 12-27-2022 Cholesterol in HDL [Mass/Vol] 51 mg/dL >40 [facility] Comment on above: The drugs N-Acetylcy steine and Metamizole may falsely depress this assay. Reference Range HDL <40 mg/dL Low HDL Cholesterol HDL >or= 60 mg/dL High HDL Cholesterol Serum or plasma cholesterol in VLDL measurement (mass/volume)Ordered By: [facility] on 12-27-2022 Cholesterol in VLDL [Mass/Vol] 25 mg/dL 5-40 [facility] Serum or plasma creatinine m easurement (mass/volume)Ordered By: [facility] on 12-27-2022 Creatinine [Mass/Vol] 1.02 mg/dL 0.55-1.02 [facility] Comment on above: The validity of the calculated GFR & GFRAA in patients over 70 years has not been determined. Clinical correlation is essential. Serum or plasma low density lipoprotein (LDL) cholesterol measurement (mass/volume)Ordered By: [facility] on 12-27-2022 Cholesterol in LDL [Mass/Vol] 107 mg/dL 0-130 [facility] Serum or plasma urea nitroge n measurement (mass/volume)Ordered By: [facility] on 12-27-2022 Urea nitrogen [Mass/Vol] 19 mg/dL 7-18 [facility] Thin prep Papanicolaou smear with manual screeningOrdered By: [facility] on 12-27-2022 Thin prep Papanicolaou smear with manual screening 9 U/L 15-37 [facility] Thin prep Papanicolaou smear with manual screening 9 5-15 [facility] Thin prep Papanicolaou smear with manual screening 121.0 mg/L NO RANGE EST. [facility] Basophil percentageOrdered B y: [facility] on 10-02-2022 Chloride [Moles/Vol] 103 mmol/L 98-107 [facility] Glucose [Mass/Vol] 173 mg/dL 74-106 [facility] Comment on above: Fasting Glucose resu lt greater than or equal to 126 mg/dL suggests DIABETES MELLITUS per A.D.A. criteria. Potassium [Moles/Vol] 4.1 mmol/L 3.5-5.1 [facility] Sodium [Moles/Vol] 133 mmol/L 136-145 [facility] - Chemistry and C hemistry - challengeOrdered By: [facility] on 10-02-2022 CO2 [Moles/Vol] 26.0 mmol/L 21.0-32.0 [facility] Urea nitrogen/Creatinine [Mass ratio] 19.1 mg/mg 10-20 [facility] No Panel InformationOrdered By: [facility] on 10-02-2022 Estimated GFR (MDRD) Amer 71 mL/min >60 [facility] Comment on above: GFR Calc Estimated GFR (MDRD) Non-Af Amer 59 mL/min >60 [facility] Comment on above: Non- GFR Calc Serum or plasma calcium gavi urement (mass/volume)Ordered By: [facility] on 10-02-2022 Calcium [Mass/Vol] 8.9 mg/dL 8.5-10.1 [facility] Serum or plasma creatinine m easurement (mass/volume)Ordered By: [facility] on 10-02-2022 Creatinine [Mass/Vol] 1.00 mg/dL 0.55-1.02 [facility] Comment on above: The validity of the calculated GFR & GFRAA in patients over 70 years has not been determined. Clinical correlation is essential. Serum or plasma urea nitroge n measurement (mass/volume)Ordered By: [facility] on 10-02-2022 Urea nitrogen [Mass/Vol] 19 mg/dL 7-18 [facility] Thin prep Papanicolaou smear with manual screeningOrdered By: [facility] on 10-02-2022 Thin prep Papanicolaou smear with manual screening 4 5-15 [facility] Basophil percentageOrdered B y: GENIE ENCARNACION on 07-31-2022 Bilirubin [Mass/Vol] 1.10 mg/dL 0.20-1.00 [facility] Comment on above: For patients on eltr ombopag therapy, use of Dimension Steen TBIL is not recommended. Chloride [Moles/Vol] 103 mmol/L 98-107 [facility] Glucose [Mass/Vol] 270 mg/dL 74-106 [facility] Comment on above: Glucose result great er than or equal to 200 mg/dLsuggests DIABETES MELLITUS per A.D.A. criteria. Potassium [Moles/Vol] 4.1 mmol/L 3.5-5.1 [facility] Protein [Mass/Vol] 7.3 g/dL 6.4-8.2 [facility] Sodium [Moles/Vol] 138 mmol/L 136-145 [facility] WBC (Bld) [#/Vol] 7.6 10*3/uL 4.4-11.0 [facility] Blood erythrocytes count (nu mber/volume)Ordered By: [facility] on 07-31-2022 RBC (Bld) [#/Vol] 5.07 10*6/uL 4.2-5.4 [facility] Blood hemoglobin measurement (mass/volume)Ordered By: [facility] on 07-31-2022 Hemoglobin (Bld) [Mass/Vol] 14.9 g/dL 12.0-15.0 [facility] Blood platelet mean volumeOr dered By: [facility] on 07-31-2022 Platelet mean volume (Bld) [Entitic vol] 9.4 fL 6.2-12.0 [facility] Determination of erythrocyte mean corpuscular volume (MCV)Ordered By: [facility] on 07-31-2022 MCV (RBC) [Entitic vol] 90.1 fL 81-99 [facility] Hematocrit Auto (Bld) [Volum e fraction]Ordered By: [facility] on 07-31-2022 Hematocrit (Bld) [Volume fraction] 45.7 % 37-47 [facility] - Chemistry and C hemistry - challengeOrdered By: [facility] on 07-31-2022 ALP [Catalytic activity/Vol] 86 U/L 45-117 [facility] ALT [Catalytic activity/Vol] 12 U/L 13-56 [facility] CO2 [Moles/Vol] 24.0 mmol/L 21.0-32.0 [facility] Globulin (S) [Mass/Vol] 3.8 g/dL 2.2-4.2 [facility] Urea nitrogen/Creatinine [Mass ratio] 21.9 mg/mg 03-30 [facility] - Hematology and Cell countsOrdered By: GENIE ENCARNACION on 07-31-2022 Erythrocyte distribution width (RBC) [Entitic vol] 41.1 fL 35.1-43.9 [facility] Erythrocyte distribution width (RBC) [Ratio] 12.6 % 11.6-14.6 [facility] MCH (RBC) [Entitic mass] 29.4 pg 27.0-32.0 [facility] MCHC Auto (RBC) [Mass/Vol]Or dered By: GENIE ENCARNACION on 07-31-2022 MCHC (RBC) [Mass/Vol] 32.6 g/dL [facility] No Panel InformationOrdered By: GENIE ENCARNACION on 07-31-2022 Estimated GFR (MDRD) Amer 67 mL/min >60 [facility] Comment on above: GFR Calc Estimated GFR (MDRD) Non-Af Amer 55 mL/min >60 [facility] Comment on above: Non- GFR Calc Platelets bldOrdered By: FAB TAYLOR on 07-31-2022 Platelets (Bld) [#/Vol] 349 10*3/uL 150-450 [facility] Serum or plasma albumin gavi urement (mass/volume)Ordered By: GENIE ENCARNACION on 07-31-2022 Albumin [Mass/Vol] 3.5 g/dL 3.2-5.0 [facility] Serum or plasma albumin/glob ulin mass ratioOrdered By: GENIE SHELLMAN on 07-31-2022 Albumin/Globulin [Mass ratio] 0.9 {ratio} 0.9-2.4 [facility] Serum or plasma calcium gavi urement (mass/volume)Ordered By: GENIE SHELLMAN on 07-31-2022 Calcium [Mass/Vol] 9.1 mg/dL 8.5-10.1 [facility] Serum or plasma creatinine m easurement (mass/volume)Ordered By: GENIE SHELLMAN on 07-31-2022 Creatinine [Mass/Vol] 1.05 mg/dL 0.55-1.02 [facility] Comment on above: The validity of the calculated GFR & GFRAA in patients over 70 years has not been determined. Clinical correlation is essential. Serum or plasma urea nitroge n measurement (mass/volume)Ordered By: [facility] on 07-31-2022 Urea nitrogen [Mass/Vol] 23 mg/dL 7-18 [facility] Thin prep Papanicolaou smear with manual screeningOrdered By: [facility] on 07-31-2022 Thin prep Papanicolaou smear with manual screening 5 U/L 15-37 [facility] Thin prep Papanicolaou smear with manual screening 11 5-15 [facility] Thin prep Papanicolaou smear with manual screening 181.0 mg/L NO RANGE EST. [facility] Absolute lymphocyte countOrd ered By: Dr. Herr on 06-01-2022 Lymphocytes Auto (Unsp spec) [#/Vol] 1.95 10*3/uL 0.83-4.51 [facility] Basophil percentageOrdered B y: Dr. Herr on 06-01-2022 Basophils/100 WBC (Bld) 0.7 % 0-1 [facility] Bilirubin [Mass/Vol] 0.90 mg/dL 0.20-1.00 [facility] Comment on above: For patients on eltr ombopag therapy, use of Dimension Steen TBIL is not recommended. Chloride [Moles/Vol] 104 mmol/L 98-107 [facility] Eosinophils/100 WBC (Bld) 1.6 % 0-5 [facility] Glucose [Mass/Vol] 318 mg/dL 74-106 [facility] Comment on above: Glucose result great er than or equal to 200 mg/dLsuggests DIABETES MELLITUS per A.D.A. criteria. Neutrophils (Bld) [#/Vol] 4.5 10*3/uL 2.0-7.7 [facility] Neutrophils/100 WBC (Bld) 61.0 % 47-70 [facility] Potassium [Moles/Vol] 4.3 mmol/L 3.5-5.1 [facility] Protein [Mass/Vol] 7.0 g/dL 6.4-8.2 [facility] Sodium [Moles/Vol] 134 mmol/L 136-145 [facility] WBC (Bld) [#/Vol] 7.4 10*3/uL 4.4-11.0 [facility] Blood erythrocytes count (nu mber/volume)Ordered By: Dr. Herr on 06-01-2022 RBC (Bld) [#/Vol] 5.01 10*6/uL 4.2-5.4 [facility] Blood hemoglobin measurement (mass/volume)Ordered By: Dr. Herr on 06-01-2022 Hemoglobin (Bld) [Mass/Vol] 14.8 g/dL 12.0-15.0 [facility] Blood lymphocytes/100 leukoc ytesOrdered By: Dr. Herr on 06-01-2022 Lymphocytes/100 WBC (Bld) 26.4 % 19-41 [facility] Blood monocytes/100 leukocyt esOrdered By: Dr. Herr on 06-01-2022 Monocytes/100 WBC (Bld) 9.6 % 0-10 [facility] Blood platelet mean volumeOr dered By: Dr. Herr on 06-01-2022 Platelet mean volume (Bld) [Entitic vol] 9.3 fL 6.2-12.0 [facility] Determination of erythrocyte mean corpuscular volume (MCV)Ordered By: Dr. Herr on 06-01-2022 MCV (RBC) [Entitic vol] 88.6 fL 81-99 [facility] Hematocrit Auto (Bld) [Volum e fraction]Ordered By: Dr. Herr on 06-01-2022 Hematocrit (Bld) [Volume fraction] 44.4 % 37-47 [facility] Influenza virus A and B and SARS-CoV-2 (COVID-19) Ag panel - Upper respiratory specimOrdered By: Dr. Herr on 06-01-2022 SARS-CoV-2 & FLU Antigen (Rapid) Influenzae A [facility] - Chemistry and C hemistry - challengeOrdered By: Dr. Herr on 06-01-2022 ALP [Catalytic activity/Vol] 124 U/L 45-117 [facility] ALT [Catalytic activity/Vol] 24 U/L 13-56 [facility] CO2 [Moles/Vol] 24.0 mmol/L 21.0-32.0 [facility] Globulin (S) [Mass/Vol] 3.6 g/dL 2.2-4.2 [facility] Urea nitrogen/Creatinine [Mass ratio] 13.4 mg/mg 10-20 [facility] - Hematology and Cell countsOrdered By: Dr. Herr on 06-01-2022 Erythrocyte distribution width (RBC) [Entitic vol] 41.5 fL 35.1-43.9 [facility] Erythrocyte distribution width (RBC) [Ratio] 12.8 % 11.6-14.6 [facility] Immature granulocytes/100 WBC (Bld) 0.700 % 0.0-0.9 [facility] Comment on above: IG% - Immature Granu locytes (promyelocytes, myelocytes and metamyelocytes) > 1% indicates that a LEFT SHIFT is Present. MCH (RBC) [Entitic mass] 29.5 pg 27.0-32.0 [facility] Nucleated RBC/100 WBC (Bld) [Ratio] 0 % 0-5 [facility] MCHC Auto (RBC) [Mass/Vol]Or dered By: Dr. Herr on 06-01-2022 MCHC (RBC) [Mass/Vol] 33.3 g/dL 32-36 [facility] No Panel InformationOrdered By: Dr. Herr on 06-01-2022 Estimated Creatinine Clearance Calc 49.95 ml/min [facility] Estimated GFR (MDRD) Amer 73 mL/min >60 [facility] Comment on above: GFR Calc Estimated GFR (MDRD) Non-Af Amer 60 mL/min >60 [facility] Comment on above: Non- GFR Calc Platelets bldOrdered By: Dr. Herr on 06-01-2022 Platelets (Bld) [#/Vol] 254 10*3/uL 150-450 [facility] Serum or plasma albumin gavi urement (mass/volume)Ordered By: Dr. Herr on 06-01-2022 Albumin [Mass/Vol] 3.4 g/dL 3.2-5.0 [facility] Serum or plasma albumin/glob ulin mass ratioOrdered By: Dr. Herr on 06-01-2022 Albumin/Globulin [Mass ratio] 0.9 {ratio} 0.9-2.4 [facility] Serum or plasma calcium gavi urement (mass/volume)Ordered By: Dr. Herr on 06-01-2022 Calcium [Mass/Vol] 9.0 mg/dL 8.5-10.1 [facility] Serum or plasma creatinine m easurement (mass/volume)Ordered By: Dr. Herr on 06-01-2022 Creatinine [Mass/Vol] 0.97 mg/dL 0.55-1.02 [facility] Comment on above: The validity of the calculated GFR & GFRAA in patients over 70 years has not been determined. Clinical correlation is essential. Serum or plasma urea nitroge n measurement (mass/volume)Ordered By: Dr. Herr on 06-01-2022 Urea nitrogen [Mass/Vol] 13 mg/dL 7-18 [facility] Thin prep Papanicolaou smear with manual screeningOrdered By: Dr. Herr on 06-01-2022 Thin prep Papanicolaou smear with manual screening 12 U/L 15-37 [facility] Thin prep Papanicolaou smear with manual screening 6 5-15 [facility] OBSOLETEon 02-18-2020 OBSOLETE Procedure (AKEPD) THIAGO FLORES ([id number]) 1955 F Date Time Provider Department 02/18/20 8:00 AM REM DEVICE CK AKEPD During your visit today, we recorded the following information about you: Referring Provider: NAHOMY GARCIA [[id number]] Allergies As of Date: 02/18/2020 Noted Allergy Reaction RED DYE 11/10/2015 16 - Unknown [id number] REDUCTASE INHIBIT*04/02/2018 17 - Myalgia Comments: Severe cramping Date Reviewed: 04/02/2018 Reviewed by: Winter Mack - Fully Assessed Reason for Visit: ICD Remote [3663] Visit Diagnosis:Non-ischemic cardiomyopathy (HCC) [I42.8] Prescriptions as of 02/18/2020 Sig: FLUOXETINE 20 MG CAPSULE Take 20 mg by mouth once nj* CETIRIZINE 10 MG TABLET Take 10 mg by mouth once nj* NAPROXEN 220 MG-DIPHENHYDRAMI* Take by mouth. DOCUSATE SODIUM 100 MG CAPSULE Take 100 mg by mouth twice da* VICTOZA 2-ARIANNE SUBCUTANEOUS Inject subcutaneously. FUROSEMIDE 20 MG TABLET Take 20 mg by mouth once nj* METFORMIN 1,000 MG TABLET Take 1,000 mg by mouth twice * ENTRESTO 49 MG-51 MG TABLET 1 tablet twice daily. COLESTIPOL 1 GRAM TABLET Take 1 g by mouth twice daily* FUROSEMIDE 40 MG TABLET Take 1 tablet by mouth once d* CHOLECALCIFEROL (VITAMIN D3) * Take 5,000 Units by mouth onc* CPAP GABAPENTIN 300 MG CAPSULE Take 300 mg by mouth once dylan* CARVEDILOL 12.5 MG TABLET Take 1 tablet by mouth twice * LEVEMIR FLEXTOUCH U-100 INSUL* Inject 38 Units subcutaneousl* ASPIRIN 81 MG TABLET,DELAYED * Take 81 mg by mouth once nj* MAGNESIUM 71.5 MG (MAGNESIUM * Take 1 tablet by mouth once d* Problem List As Of Date 02/18/2020 Noted Resolved Acute on chronic systolic congestive heart fail*09/22/2015 Chronic systolic heart failure (HCC) [I50.22] 12/27/2015 Coronary atherosclerosis of sioux coronary art*12/27/2015 Palpitations [R00.2] Obstructive sleep apnea syndrome [G47.33] Left bundle branch block [I44.7] Essential hypertension [I10] Congestive heart failure (CHF) (HCC) [I50.9] Coronary arteriosclerosis [I25.10] Chronic combined systolic and diastolic heart f* Cardiomyopathy (HCC) [I42.9] 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 Encounter Status:Closed by GUERO MORTENSEN on 02/18/20 [facility] OBSOLETEon 11-11-2019 OBSOLETE Procedure (AKEPD) THIAGO FLORES ([id number]) 1955 F Date Time Provider Department 11/11/19 8:00 AM REM DEVICE CK AKEPD During your visit today, we recorded the following information about you: Referring Provider: NAHOMY GARCIA [[id number]] Allergies As of Date: 11/11/2019 Noted Allergy Reaction RED DYE 11/10/2015 16 - Unknown [id number] REDUCTASE INHIBIT*04/02/2018 17 - Myalgia Comments: Severe cramping Date Reviewed: 04/02/2018 Reviewed by: Winter Mack - Fully Assessed Reason for Visit: ICD Remote [3663] Visit Diagnosis:Non-ischemic cardiomyopathy (HCC) [I42.8] Prescriptions as of 11/11/2019 Sig: FLUOXETINE 20 MG CAPSULE Take 20 mg by mouth once nj* CETIRIZINE 10 MG TABLET Take 10 mg by mouth once nj* NAPROXEN 220 MG-DIPHENHYDRAMI* Take by mouth. DOCUSATE SODIUM 100 MG CAPSULE Take 100 mg by mouth twice da* VICTOZA 2-ARIANNE SUBCUTANEOUS Inject subcutaneously. FUROSEMIDE 20 MG TABLET Take 20 mg by mouth once nj* METFORMIN 1,000 MG TABLET Take 1,000 mg by mouth twice * ENTRESTO 49 MG-51 MG TABLET 1 tablet twice daily. COLESTIPOL 1 GRAM TABLET Take 1 g by mouth twice daily* FUROSEMIDE 40 MG TABLET Take 1 tablet by mouth once d* CHOLECALCIFEROL (VITAMIN D3) * Take 5,000 Units by mouth onc* CPAP GABAPENTIN 300 MG CAPSULE Take 300 mg by mouth once dylan* CARVEDILOL 12.5 MG TABLET Take 1 tablet by mouth twice * LEVEMIR FLEXTOUCH U-100 INSUL* Inject 38 Units subcutaneousl* ASPIRIN 81 MG TABLET,DELAYED * Take 81 mg by mouth once nj* MAGNESIUM 71.5 MG (MAGNESIUM * Take 1 tablet by mouth once d* Problem List As Of Date 11/11/2019 Noted Resolved Acute on chronic systolic congestive heart fail*09/22/2015 Chronic systolic heart failure (HCC) [I50.22] 12/27/2015 Coronary atherosclerosis of sioux coronary art*12/27/2015 Palpitations [R00.2] Obstructive sleep apnea syndrome [G47.33] Left bundle branch block [I44.7] Essential hypertension [I10] Congestive heart failure (CHF) (HCC) [I50.9] Coronary arteriosclerosis [I25.10] Chronic combined systolic and diastolic heart f* Cardiomyopathy (HCC) [I42.9] 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 Encounter Status:Closed by GUERO MORTENSEN on 11/11/19 [facility] OBSOLETEon 08-05-2019 OBSOLETE Procedure (AKEPD) THIAGO FLORES ([id number]) 1955 F Date Time Provider Department 08/05/19 8:00 AM REM DEVICE CK AKEPD During your visit today, we recorded the following information about you: Referring Provider: NAHOMY GARCIA [[id number]] Allergies As of Date: 08/05/2019 Noted Allergy Reaction RED DYE 11/10/2015 16 - Unknown [id number] REDUCTASE INHIBIT*04/02/2018 17 - Myalgia Comments: Severe cramping Date Reviewed: 04/02/2018 Reviewed by: Winter Mack - Fully Assessed Reason for Visit: ICD Remote [3663] Visit Diagnosis:Cardiomyopath y, unspecified type (HCC) [I42.9] Prescriptions as of 08/05/2019 Sig: FLUOXETINE 20 MG CAPSULE Take 20 mg by mouth once nj* CETIRIZINE 10 MG TABLET Take 10 mg by mouth once nj* NAPROXEN 220 MG-DIPHENHYDRAMI* Take by mouth. DOCUSATE SODIUM 100 MG CAPSULE Take 100 mg by mouth twice da* VICTOZA 2-ARIANNE SUBCUTANEOUS Inject subcutaneously. FUROSEMIDE 20 MG TABLET Take 20 mg by mouth once nj* METFORMIN 1,000 MG TABLET Take 1,000 mg by mouth twice * ENTRESTO 49 MG-51 MG TABLET 1 tablet twice daily. COLESTIPOL 1 GRAM TABLET Take 1 g by mouth twice daily* FUROSEMIDE 40 MG TABLET Take 1 tablet by mouth once d* CHOLECALCIFEROL (VITAMIN D3) * Take 5,000 Units by mouth onc* CPAP GABAPENTIN 300 MG CAPSULE Take 300 mg by mouth once dylan* CARVEDILOL 12.5 MG TABLET Take 1 tablet by mouth twice * LEVEMIR FLEXTOUCH U-100 INSUL* Inject 38 Units subcutaneousl* ASPIRIN 81 MG TABLET,DELAYED * Take 81 mg by mouth once nj* MAGNESIUM 71.5 MG (MAGNESIUM * Take 1 tablet by mouth once d* Problem List As Of Date 08/05/2019 Noted Resolved Acute on chronic systolic congestive heart fail*09/22/2015 Chronic systolic heart failure (HCC) [I50.22] 12/27/2015 Coronary atherosclerosis of sioux coronary art*12/27/2015 Palpitations [R00.2] Obstructive sleep apnea syndrome [G47.33] Left bundle branch block [I44.7] Essential hypertension [I10] Congestive heart failure (CHF) (HCC) [I50.9] Coronary arteriosclerosis [I25.10] Chronic combined systolic and diastolic heart f* Cardiomyopathy (HCC) [I42.9] 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 Encounter Status:Closed by BRANDON GARCIA on 08/06/19 [facility] OBSOLETEon 05-23-2019 OBSOLETE Procedure (AKEPD) THIAGO FLORES ([id number]) 1955 F Date Time Provider Department 05/23/19 8:00 AM DEVICE CLINIC 1 AKEPD During your visit today, we recorded the following information about you: Referring Provider: NAHOMY GARCIA [[id number]] Allergies As of Date: 05/23/2019 Noted Allergy Reaction RED DYE 11/10/2015 16 - Unknown [id number] REDUCTASE INHIBIT*04/02/2018 17 - Myalgia Comments: Severe cramping Date Reviewed: 04/02/2018 Reviewed by: Winter Welch) [place] - Fully Assessed Reason for Visit: ICD [3662] Visit Diagnosis:NICM (nonischemic cardiomyopathy) ([facility]) [I42.8] Prescriptions as of 05/23/2019 Sig: FLUOXETINE 20 MG CAPSULE Take 20 mg by mouth once nj* CETIRIZINE 10 MG TABLET Take 10 mg by mouth once nj* NAPROXEN 220 MG-DIPHENHYDRAMI* Take by mouth. DOCUSATE SODIUM 100 MG CAPSULE Take 100 mg by mouth twice da* VICTOZA 2-ARIANNE SUBCUTANEOUS Inject subcutaneously. FUROSEMIDE 20 MG TABLET Take 20 mg by mouth once nj* METFORMIN 1,000 MG TABLET Take 1,000 mg by mouth twice * ENTRESTO 49 MG-51 MG TABLET 1 tablet twice daily. COLESTIPOL 1 GRAM TABLET Take 1 g by mouth twice daily* FUROSEMIDE 40 MG TABLET Take 1 tablet by mouth once d* CHOLECALCIFEROL (VITAMIN D3) * Take 5,000 Units by mouth onc* CPAP GABAPENTIN 300 MG CAPSULE Take 300 mg by mouth once dylan* CARVEDILOL 12.5 MG TABLET Take 1 tablet by mouth twice * LEVEMIR FLEXTOUCH U-100 INSUL* Inject 38 Units subcutaneousl* ASPIRIN 81 MG TABLET,DELAYED * Take 81 mg by mouth once nj* MAGNESIUM 71.5 MG (MAGNESIUM * Take 1 tablet by mouth once d* Problem List As Of Date 05/23/2019 Noted Resolved Acute on chronic systolic congestive heart fail*09/22/2015 Chronic systolic heart failure (HCC) [I50.22] 12/27/2015 Coronary atherosclerosis of sioux coronary art*12/27/2015 Palpitations [R00.2] Obstructive sleep apnea syndrome [G47.33] Left bundle branch block [I44.7] Essential hypertension [I10] Congestive heart failure (CHF) (HCC) [I50.9] Coronary arteriosclerosis [I25.10] Chronic combined systolic and diastolic heart f* Cardiomyopathy (HCC) [I42.9] 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 Encounter Status:Closed by LICO BARAHONA on 05/23/19 [facility] Office Visit: [facility] 03-12-20 17 Fall risk assessment No Invalid Interpretation Code [facility] Work Phone: [phone] Protein mass conc Done Invalid Interpretation Code [place] Work Phone: [phone] Office Visit: [facility] 12-02-19 17 Documentation of current medications (procedure) Done Invalid Interpretation Code [place] Work Phone: [phone] Fall risk assessment No Invalid Interpretation Code [place] Work Phone: [phone] Protein mass conc Done [facility] Work Phone: [phone] Lab Report: BNP,B-Type NATRI URETIC PEPTIDEon 08-31-2016 BNP 22.2 pg/mL Invalid Interpretation Code 0-100 [place] Work Phone: [phone] Lab Report: Basic Metabolic Profile (BMP)on 08-31-2016 Anion gap 11 mmol/L Invalid Interpretation Code 5-15 [facility] Work Phone: [phone] Anion gap 4 molar conc 11 Invalid Interpretation Code 5-15 [facility] Work Phone: [phone] Anion gap molar conc 11 mmol/L 5-[address] [facility] Work Phone: [phone] BUN/Creatinine Ratio 29.9 RATIO High 10- [facility] Work Phone: [phone] Calcium 9.2 mg/dL Invalid Interpretation Code 8.5-10.1 [facility] Work Phone: [phone] Chloride 101 mmol/L Invalid Interpretation Code 98-107 [facility] Work Phone: [phone] CO2 21.0 mmol/L Invalid Interpretation Code 21.0-32.0 [facility] Work Phone: [phone] CO2 ppres (BldV) 21.0 mmol/L Invalid Interpretation Code 21.0-32.0 [place] Work Phone: [phone] Creatinine 1.17 mg/dL High 0.55-1.02 [place] Work Phone: [phone] eGFR (non-black) 50 mL/min/{1.73_m2} Low >60 [facility] Work Phone: [phone] eGFR (non-black) 60 mL/min/{1.73_m2} Invalid Interpretation Code >60 [facility] Work Phone: [phone] EST GFR - AA 60 mL/min Invalid Interpretation Code >60 [facility] Work Phone: [phone] Glucose 292 mg/dL High 70-110 [facility] Work Phone: [phone] Glucose mass conc 292 mg/dL High 70-110 [facility] Work Phone: [phone] Potassium 4.8 mmol/L Invalid Interpretation Code 3.5-5.1 [facility] Work Phone: [phone] Sodium 133 mmol/L Low 136-145 [facility] Work Phone: [phone] Urea nitrogen 35 mg/dL High 7-18 [facility] Work Phone: [phone] Office Visiton 08-23-2016 Dietary management education, guidance, and counseling (procedure) yes Invalid Interpretation Code [facility] Work Phone: [phone] Clinical Lists Update: 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 Left ventricular Ejection fraction 20 % Invalid Interpretation Code [facility] Work Phone: [phone] Clinical Lists Update: 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 club room attendant 03-31-2016 Alanine aminotransferase (ALT) 13 U/L Invalid Interpretation Code [facility] Work Phone: [phone] Aspartate aminotransferase (AST) 13 U/L Invalid Interpretation Code [facility] Work Phone: [phone] Cholesterol 232 mg/dL High [facility] Work Phone: [phone] Cholesterol to HDL Ratio 5.27 {ratio} High [facility] Work Phone: [phone] HbA1c 7.2 % High [facility] Work Phone: [phone] HDL Cholesterol 44 mg/dL Low [facility] Work Phone: [phone] LDL Cholesterol 137 mg/dL High [facility] Work Phone: [phone] LDL/HDL ratio, serum 3.11 Invalid Interpretation Code [facility] Work Phone: [phone] Triglyceride 256 mg/dL High [facility] Work Phone: [phone] very low density lipoproteins 51 mg/dL High [facility] Work Phone: [phone] Append: Dr. Han Mckeon [facility] Cardiologyon 03-01-2016 Clinical consultation report (record artifact) [id number] Invalid Interpretation Code [facility] Work Phone: [phone] Clinical Lists Update: Prelo club room attendant 01-13-2016 basophils as percent of blood leukocytes, manual count 0.6 % Invalid Interpretation Code [facility] Work Phone: [phone] BNP 34.5 pg/mL Invalid Interpretation Code [facility] Work Phone: [phone] eGFR (non-black) 48 mL/min/{1.73_m2} Low [facility] Work Phone: [phone] eGFR (non-black) 58 mL/min/{1.73_m2} Low [facility] Work Phone: [phone] eosinophils as percent of blood leukocytes, manual count 7.7 % High [facility] Work Phone: [phone] Erythrocyte distribution width Ratio (RBC) 13.3 % [facility] Work Phone: [phone] Erythrocytes (RBC) 3.33 10*6/uL Low [facility] Work Phone: [phone] Glomerular Filtration Rate 58 mL/min/1.73m2 Low [facility] Work Phone: [phone] Hematocrit (HCT) 30.0 % Low [facility] Work Phone: [phone] Hematocrit Volume Fraction (Bld) 30.0 % Low [facility] Work Phone: [phone] Hemoglobin (HGB) 10.0 g/dL Low [facility] Work Phone: [phone] Lymphocytes/100 leukocytes 36.2 % Invalid Interpretation Code [facility] Work Phone: [phone] Lymphocytes/100 WBC (Bld) 36.2 % [facility] Work Phone: [phone] Magnesium 1.9 mg/dL Invalid Interpretation Code [facility] Work Phone: [phone] MCH 30.0 pg Invalid Interpretation Code [facility] Work Phone: [phone] MCH Entitic mass (RBC) 30.0 pg [facility] Work Phone: [phone] MCHC 33.3 g/dL Invalid Interpretation Code [facility] Work Phone: [phone] MCHC mass conc (RBC) 33.3 g/dL [facility] Work Phone: [phone] MCV 90.1 fL Invalid Interpretation Code [facility] Work Phone: [phone] MCV Entitic volume (RBC) 90.1 fL [facility] Work Phone: [phone] Monocytes/100 leukocytes 8.2 % Invalid Interpretation Code [facility] Work Phone: [phone] Monocytes/100 WBC (Bld) 8.2 % [facility] Work Phone: [phone] neutrophils, band form as percent of blood leukocytes, manual count 46.6 % Low [facility] Work Phone: [phone] Platelet mean volume Entitic volume (Bld) 9.1 fL [facility] Work Phone: [phone] Platelets 301 10*3/mm3 Invalid Interpretation Code [facility] Work Phone: [phone] Platelets #/vol (Bld) 301 10*3/mm3 [facility] Work Phone: [phone] PMV by Raji 9.1 fL Invalid Interpretation Code [facility] Work Phone: [phone] RBC #/vol (Bld) 3.33 10*6/uL Low [facility] Work Phone: [phone] RDW-CA 13.3 % Invalid Interpretation Code [facility] Work Phone: [phone] Thyroid stimulating hormone (TSH) 1.76 u[iU]/mL Invalid Interpretation Code [facility] Work Phone: [phone] WBC #/vol (Bld) 6.7 10*3/uL [facility] Work Phone: [phone] WBC (Leukocytes) 6.7 10*3/uL Invalid Interpretation Code [facility] Work Phone: [phone] Clinical Lists Update: Prelo club room attendant 01-11-2016 Albumin 4.1 g/dL Invalid Interpretation Code [facility] Work Phone: [phone] Alkaline phosphatase (ALP) 58 U/L Invalid Interpretation Code [facility] Work Phone: [phone] ALP enzyme act/vol (Bld) 58 U/L Invalid Interpretation Code [facility] Work Phone: [phone] Bilirubin (total) 0.6 mg/dL Invalid Interpretation Code [facility] Work Phone: [phone] Protein 6.9 g/dL Invalid Interpretation Code [facility] Work Phone: [phone] Replaced Document: Jenn Motta CG Observationson 10-22-2015 BUN (urea nitrogen) Sinus Rhythm -Left bundle branch block. ABNORMAL Invalid Interpretation Code [facility] Phone: [phone] EKG QRS axis -29 deg Invalid Interpretation Code [facility] Phone: [phone] GE use only - for [employer] import when terms are not otherwise specified 496 ms Invalid Interpretation Code [facility] Work Phone: [phone] P [place] 34 deg Invalid Interpretation Code [facility] Work Phone: [phone] P wave axis, electrocardiogram 34 deg Invalid Interpretation Code [facility] Work Phone: [phone] IA Interval 168 ms Invalid Interpretation Code [facility] Work Phone: [phone] IA interval, electrocardiogram 168 ms Invalid Interpretation Code [facility] Work Phone: [phone] Pulse (Heart Rate) 68 /min Invalid Interpretation Code [facility] Work Phone: [phone] QRS axis, electrocardiogram -29 deg Invalid Interpretation Code [facility] Work Phone: [phone] QRS Duration 174 ms Invalid Interpretation Code [facility] Work Phone: [phone] QRS duration, electrocardiogram 174 ms Invalid Interpretation Code [facility] Work Phone: [phone] QT Interval new path ms Invalid Interpretation Code [facility] Work Phone: [phone] QT interval, electrocardiogram new path ms Invalid Interpretation Code [facility] Work Phone: [phone] QTc Wilson 496 ms Invalid Interpretation Code [facility] Work Phone: [phone] T [place] 36 deg Invalid Interpretation Code [facility] Work Phone: [phone] T wave axis, electrocardiogram 36 deg Invalid Interpretation Code [facility] Work Phone: [phone] Urea nitrogen mass conc Sinus Rhythm -Le ft bundle branch block. ABNORMAL [facility] Work Phone: [phone] Office Visit: [facility] 07-22-19 16 Tobacco smoking status NHIS Former smoker Invalid Interpretation Code [facility] Work Phone: [phone] Tobacco use CPHS Former smoker Invalid Interpretation Code [facility] Phone: [phone] External Other: Preferred Me thod of Contacton 06-10-2015 methcontact phone Invalid Interpretation Code [facility] Phone: [phone] Patient's prefered method of contact phone Invalid Interpretation Code [facility] Phone: [phone] Office Visit: [facility] 06-10-20 15 cardiac risk group C Invalid Interpretation Code [facility] Work Phone: [phone] General cardiovascular disease 10Y risk [#] Huttig.D'Agostino N/A Invalid Interpretation Code [facility] Work Phone: [phone] Vital Signs Date Time Vital Sign Value Performing Clinician James rachel 10-23-2024 13:55-0400 Body height 162.56 cm Sarah Valencia NP-C Work Phone: [facility] 10-23-2024 13:55-0400 Body mass index (BMI) [Ratio] 44.9 kg/m2 Sarah Valencia NP-C Work Phone: 0(302)098-542288 [place] [address] 10-23-2024 13:55-0400 Body weight 118.61 kg Sarah Valencia [facility] Work Phone: 7(419)673-100588 [place] [address] 10-23-2024 13:55-0400 Diastolic blood pressure 74 mm[Hg] Sarah Valencia [facility] Work Phone: 2(831)513-607288 [place] [address] 10-23-2024 13:55-0400 Heart rate 60 /min Sarahmariluz Valencia [facility] Work Phone: 0(829)977-081388 [place] [address] 10-23-2024 13:55-0400 SaO2% (BldA) [Mass fraction] 95 % Sarahmariluz Valencia [facility] Work Phone: 9(569)162-093488 [place] [address] 10-23-2024 13:55-0400 Systolic blood pressure 117 mm[Hg] Sarah Valencia [facility] Work Phone: 3(341)607-413488 [place] [address] 07-16-2024 14:30-0500 Body mass index (BMI) [Ratio] 44.1 kg/m2 Sarahmariluz Valencia [facility] Work Phone: 2(372)091-353388 [place] [address] 07-16-2024 14:30-0500 Body weight 116.57 kg Sarahamerico Valencia [facility] Work Phone: 2(289)424-420788 [place] [address] 07-16-2024 14:30-0500 Diastolic blood pressure 77 mm[Hg] Sarah Valencia [facility] Work Phone: 9(594)546-331388 [place] [address] 07-16-2024 14:30-0500 Heart rate 61 /min Sarah Valencia [facility] Work Phone: 4(052)471-049888 [place] [address] 07-16-2024 14:30-0500 SaO2% (BldA) [Mass fraction] 94 % Sarah Valencia [facility] Work Phone: 7(123)867-766088 [place] [address] 07-16-2024 14:30-0500 Systolic blood pressure 149 mm[Hg] Sarah Valencia [facility] Work Phone: 3(492)697-946388 [place] [address] 07-02-2024 13:02-0500 Body temperature 97.6 [degF] Sarah Valencia [facility] Work Phone: 3(825)870-380752 [place] [address] 07-02-2024 13:02-0500 Diastolic blood pressure 69 mm[Hg] Sarah Valencia [facility] Work Phone: 6(961)035-323488 [place] [address] 07-02-2024 13:02-0500 Heart rate 60 /min Sarah Valencia [facility] Work Phone: 9(953)213-179888 [place] [address] 07-02-2024 13:02-0500 Respiratory rate 18 /min Sarah Valencia [facility] Work Phone: 2(719)308-937888 [place] [address] 07-02-2024 13:02-0500 SaO2% (BldA) [Mass fraction] 98 % Sarah Valencia [facility] Work Phone: 0(887)834-765688 [place] [address] 07-02-2024 13:02-0500 Systolic blood pressure 154 mm[Hg] Sarah Valencia [facility] [employer] [facility] Work Phone: 9(437)558-972788 [place] [address] 09-13-2023 18:06-0400 Body temperature 97 [degF] [facility] Work Phone: 8(363)744-390388 [place] [address] 09-13-2023 18:06-0400 Diastolic blood pressure 79 mm[Hg] [facility] Work Phone: 4(373)578-663488 [place] [address] 09-13-2023 18:06-0400 Heart rate 60 /min [facility] Work Phone: 9(732)695-845988 [place] [address] 09-13-2023 18:06-0400 Respiratory rate 14 /min [facility] Work Phone: 2(548)943-331388 [place] [address] 09-13-2023 18:06-0400 SaO2% (BldA) [Mass fraction] 97 % [facility] Work Phone: 1(157)498-771088 [place] [address] 09-13-2023 18:06-0400 Systolic blood pressure 141 mm[Hg] [facility] Work Phone: 2(594)558-742088 [place] [address] 09-13-2023 14:47-0400 Body height 165.1 cm [facility] Work Phone: 1(900)181-861188 [place] [address] 09-13-2023 14:47-0400 Body mass index (BMI) [Ratio] 38.7 kg/m2 [facility] Work Phone: 3(772)207-143688 [place] [address] 09-13-2023 14:47-0400 Body weight 105.74 kg [facility] Work Phone: 2(753)098-509588 [place] [address] 07-04-2023 09:05-0500 Body height 165.1 cm [facility] Work Phone: 1(510)820-380988 [place] [address] 07-04-2023 09:05-0500 Body mass index (BMI) [Ratio] 37.5 kg/m2 [facility] Work Phone: 2(281)359-541388 [place] [address] 07-04-2023 09:05-0500 Body temperature 98.7 [degF] [facility] Work Phone: 4(980)529-635688 [place] [address] 07-04-2023 09:05-0500 Body weight 102.28 kg [facility] Work Phone: 0(480)204-552688 [place] [address] 07-04-2023 09:05-0500 Diastolic blood pressure 76 mm[Hg] [facility] Work Phone: 4(473)390-797188 [place] [address] 07-04-2023 09:05-0500 Heart rate 70 /min [facility] Work Phone: 9(591)206-727988 [place] [address] 07-04-2023 09:05-0500 Respiratory rate 16 /min [facility] Work Phone: 3(250)003-504988 [place] [address] 07-04-2023 09:05-0500 SaO2% (BldA) [Mass fraction] 96 % [facility] Work Phone: 5(203)630-735188 [place] [address] 07-04-2023 09:05-0500 Systolic blood pressure 138 mm[Hg] [facility] Work Phone: 3(720)799-515688 [place] [address] 07-02-2023 09:50-0500 Body mass index (BMI) [Ratio] 37 kg/m2 [facility] Work Phone: 2(404)671-839088 [place] [address] 07-02-2023 09:50-0500 Body weight 101.15 kg [facility] Work Phone: 4(113)249-443388 [place] [address] 07-02-2023 09:50-0500 Diastolic blood pressure 76 mm[Hg] [facility] Work Phone: 1(256)907-362788 [place] [address] 07-02-2023 09:50-0500 Heart rate 68 /min [facility] Work Phone: 6(408)860-394588 [place] [address] 07-02-2023 09:50-0500 Respiratory rate 18 /min [facility] Work Phone: 7(307)170-788388 [place] [address] 07-02-2023 09:50-0500 SaO2% (BldA) [Mass fraction] 98 % [facility] Work Phone: 6(632)625-301088 [place] [address] 07-02-2023 09:50-0500 Systolic blood pressure 121 mm[Hg] [facility] Work Phone: 9(143)129-517388 [place] [address] 04-02-2023 08:48-0400 Body mass index (BMI) [Ratio] 38 kg/m2 [facility] Work Phone: 0(172)851-287388 [place] [address] 04-02-2023 08:48-0400 Body temperature 97.6 [degF] [facility] Work Phone: 4(038)858-160688 [place] [address] 04-02-2023 08:48-0400 Body weight 103.53 kg [facility] Work Phone: 5(743)202-422788 [place] [address] 04-02-2023 08:48-0400 Diastolic blood pressure 76 mm[Hg] [facility] Work Phone: 5(764)314-900088 [place] [address] 04-02-2023 08:48-0400 Heart rate 72 /min [facility] Work Phone: 6(986)558-222588 [place] [address] 04-02-2023 08:48-0400 Respiratory rate 16 /min [facility] Work Phone: 9(519)590-422488 [place] [address] 04-02-2023 08:48-0400 SaO2% (BldA) [Mass fraction] 97 % [facility] Work Phone: 7(642)458-550788 [place] [address] 04-02-2023 08:48-0400 Systolic blood pressure 146 mm[Hg] [facility] Work Phone: 4(315)475-144288 [place] [address] 02-01-2023 09:28-0400 Body height 165.1 cm [facility] Work Phone: 8(444)277-076488 [place] [address] 12-28-2022 09:43-0400 Body mass index (BMI) [Ratio] 37.5 kg/m2 [facility] Work Phone: 4(126)607-008088 [place] [address] 12-28-2022 09:43-0400 Body weight 102.51 kg [facility] Work Phone: 1(731)010-146988 [place] [address] 12-28-2022 09:43-0400 Diastolic blood pressure 40 mm[Hg] [facility] Work Phone: 7(398)304-932888 [place] [address] 12-28-2022 09:43-0400 Heart rate 64 /min [facility] Work Phone: 2(733)788-919288 [place] [address] 12-28-2022 09:43-0400 Respiratory rate 20 /min [facility] Work Phone: 7(278)633-496688 [place] [address] 12-28-2022 09:43-0400 Systolic blood pressure 100 mm[Hg] [facility] Work Phone: 5(601)883-112288 [place] [address] 12-28-2022 09:08-0400 Body mass index (BMI) [Ratio] 38 kg/m2 [facility] Work Phone: 1(648)327-996988 [place] [address] 12-28-2022 09:08-0400 Body temperature 98 [degF] [facility] Work Phone: 7(894)234-311788 [place] [address] 12-28-2022 09:08-0400 Body weight 103.58 kg [facility] Work Phone: 5(368)600-702388 [place] [address] 12-28-2022 09:08-0400 Diastolic blood pressure 82 mm[Hg] [facility] Work Phone: 9(816)191-794888 [place] [address] 12-28-2022 09:08-0400 Heart rate 60 /min [facility] Work Phone: 0(670)246-017788 [place] [address] 12-28-2022 09:08-0400 Respiratory rate 16 /min [facility] Work Phone: 8(297)209-105888 [place] [address] 12-28-2022 09:08-0400 SaO2% (BldA) [Mass fraction] 97 % [facility] Work Phone: 0(191)158-599488 [place] [address] 12-28-2022 09:08-0400 Systolic blood pressure 148 mm[Hg] [facility] Work Phone: 3(512)115-463688 [place] [address] 11-22-2022 15:32-0400 Respiratory rate 18 /min [facility] Work Phone: 1(387)981-412388 [place] [address] 11-22-2022 13:34-0400 Body temperature 98.5 [degF] [facility] Work Phone: 5(701)710-511688 [place] [address] 11-22-2022 13:34-0400 Diastolic blood pressure 87 mm[Hg] [facility] Work Phone: 7(552)914-140388 [place] [address] 11-22-2022 13:34-0400 Heart rate 88 /min [facility] Work Phone: 9(600)436-018488 [place] [address] 11-22-2022 13:34-0400 SaO2% (BldA) [Mass fraction] 97 % [facility] Work Phone: 4(101)128-338588 [place] [address] 11-22-2022 13:34-0400 Systolic blood pressure 103 mm[Hg] [facility] Work Phone: 9(936)207-118688 [place] [address] 10-19-2022 09:12-0400 Body mass index (BMI) [Ratio] 37 kg/m2 [facility] Work Phone: 2(365)195-005188 [place] [address] 10-19-2022 09:12-0400 Body temperature 98.6 [degF] [facility] Work Phone: 1(160)070-478988 [place] [address] 10-19-2022 09:12-0400 Body weight 101.15 kg [facility] Work Phone: 2(155)039-814288 [place] [address] 10-19-2022 09:12-0400 Diastolic blood pressure 73 mm[Hg] [facility] Work Phone: 3(736)511-923188 [place] [address] 10-19-2022 09:12-0400 Heart rate 74 /min [facility] Work Phone: 0(909)596-841688 [place] [address] 10-19-2022 09:12-0400 Respiratory rate 18 /min [facility] Work Phone: 8(038)702-609388 [place] [address] 10-19-2022 09:12-0400 SaO2% (BldA) [Mass fraction] 95 % [facility] Work Phone: [facility] 10-19-2022 09:12-0400 Systolic blood pressure 137 mm[Hg] [facility] Work Phone: [facility] 06-01-2022 08:51-0500 Body height 165.1 cm [facility] 06-01-2022 08:51-0500 Body mass index (BMI) [Ratio] 38.2 kg/m2 [facility] 06-01-2022 08:51-0500 Body temperature 97.6 [degF] [facility] 06-01-2022 08:51-0500 Body weight 104.32 kg [facility] 06-01-2022 08:51-0500 Diastolic blood pressure 94 mm[Hg] [facility] 06-01-2022 08:51-0500 Heart rate 71 /min [facility] 06-01-2022 08:51-0500 Respiratory rate 18 /min [facility] 06-01-2022 08:51-0500 SaO2% (BldA) [Mass fraction] 96 % [facility] 06-01-2022 08:51-0500 Systolic blood pressure 170 mm[Hg] [facility] 03-12-2017 10:31-0400 BMI (Body Mass Index) 42.93 kg/m2 [facility] Work Phone: 03-12-2017 10:31-0400 BP Diastolic 70 mm[Hg] [facility] Work Phone: 03-12-2017 10:31-0400 BP Systolic 142 mm[Hg] [facility] Work Phone: 03-12-2017 10:31-0400 Pulse (Heart Rate) 72 /min [facility] Work Phone: 03-12-2017 10:31-0400 Weight 117.03 kg [facility] Work Phone: 12-01-2016 10:38-0400 BMI [...] Date Encounter Type Care Provider Facility Start: 10-23-2024 End: 10-23-2024 Patient encounter procedure Lavonne DESOUZAC -[facility] Work Phone: Start: 10-23-2024 End: 10-23-2024 ambulatory Sarah HORNER Work Phone: [facility] Work Phone: Start: 10-22-2024 End: 10-22-2024 ambulatory Sarah HORNER Work Phone: [facility] Work Phone: Start: 10-22-2024 End: 10-22-2024 Patient encounter procedure [facility] Sarah Valencia [facility] Start: 10-22-2024 End: 10-22-2024 ambulatory [facility] Facility[facility] Start: 10-13-2024 End: 10-13-2024 [facility] Start: 10-13-2024 End: 10-13-[address] Misbah Marcum MD -[facility] Work Phone: Start: 08-19-2024 [address] [facility] Start: 07-16-2024 End: 07-16-2024 Patient encounter procedure Lavonne Bridges [facility] [facility] -[facility] Work Phone: Start: 07-16-2024 End: 07-16-2024 ambulatory Lavonne Bridges Facility:[facility] Start: 07-14-2024 End: 07-14-2024 ambulatory [facility] Start: 07-14-2024 End: 07-14-[address] Misbah Marcum MD -[facility] Work Phone: Start: 07-02-2024 End: 07-02-2024 ambulatory Sarah Valencia [facility] Facility:[facility] Start: 07-02-2024 End: 07-02-2024 Patient encounter procedure Kaye SAMSON -[facility] Work Phone: Start: 07-02-2024 End: 07-02-2024 [facility] Start: 04-16-2024 End: 04-16-2024 ambulatory Lavonne Bridges Facility:[facility] Start: 04-14-2024 End: 04-14-2024 [facility] Start: 04-10-2024 End: 04-10-2024 [facility] Start: 03-13-2024 End: 03-13-2024 ambulatory [facility] Start: 02-19-2024 ambulatory [facility] Start: 02-18-2024 End: 02-18-2024 ambulatory [facility] Start: 02-17-2024 End: 02-18-2024 Evaluation and management of inpatient Taty Velasquez Facility:[facility] Start: 02-17-2024 ambulatory Cesar Parekh [facility] Start: 01-17-2024 End: 01-17-2024 ambulatory [facility] Facility:[facility] Start: 01-09-2024 End: 01-09-2024 ambulatory [facility] Facility:[facility] Start: 12-31-2023 End: 01-01-2024 ambulatory [facility] Facility:[facility] Start: 11-27-2023 End: 11-27-2023 ambulatory SHANTE Xenia DUDLEY Facility:[facility] Start: 11-27-2023 End: 11-27-2023 Patient encounter procedure Honorio Quintana MD Work Phone: Ophthalmology Comment on above: 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) Start: 09-13-2023 End: 09-13-2023 Emergency department patient visit [facility] Work Phone: [facility]Emergency Department Work Phone: Start: 07-18-2023 End: 07-18-2023 ambulatory [facility] Work Phone: [facility] Work Phone: Start: 07-18-2023 End: 07-18-2023 Patient encounter procedure [facility] Work Phone: [facility]Laboratory Work Phone: Start: 07-04-2023 End: 07-04-2023 Patient encounter procedure [facility] Work Phone: [facility] Work Phone: Start: 07-02-2023 End: 07-02-2023 Patient encounter procedure [facility] Work Phone: [facility] Work Phone: Start: 05-28-2023 End: 05-28-2023 ambulatory SHANTE L SWIHART Facility:[facility] Start: 04-02-2023 End: 04-02-2023 Patient encounter procedure [facility] Work Phone: [facility] Work Phone: Start: 03-05-2023 End: 03-05-2023 ambulatory SHANTE L SWIHART Facility:[facility] Start: 03-05-2023 End: 03-05-2023 Subsequent hospital visit by physician [facility] Work Phone: Radiology Comment on above: 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] Start: 02-22-2023 End: 02-22-2023 ambulatory SHANTE L SWIHART Facility:[facility] Start: 02-05-2023 End: 02-05-2023 Patient encounter procedure [facility] Work Phone: [facility] Work Phone: Start: 02-01-2023 End: 02-01-2023 ambulatory [facility] Work Phone: [facility] Work Phone: Start: 02-01-2023 End: 02-01-2023 Patient encounter procedure [facility] Work Phone: [facility] Work Phone: Start: 02-01-2023 End: 02-01-2023 Patient encounter procedure [facility] Work Phone: [facility] Work Phone: Start: 01-05-2023 End: 01-05-2023 Patient encounter procedure [facility] Work Phone: [facility] Work Phone: Start: 01-03-2023 End: 01-03-2023 ambulatory SHANTE L SWIHART Facility:[facility] Start: 12-28-2022 End: 12-28-2022 Patient encounter procedure [facility] Work Phone: [facility] End[facility]inology Work Phone: Start: 12-27-2022 End: 12-27-2022 Patient encounter procedure [facility] Work Phone: [facility] Work Phone: Start: 11-22-2022 End: 11-22-2022 Emergency department patient visit [facility] Work Phone: [facility]Emergency Department Work Phone: Start: 10-19-2022 End: 10-19-2022 Patient encounter procedure [facility] Work Phone: [facility] Work Phone: Start: 10-02-2022 End: 10-02-2022 ambulatory [facility] Work Phone: Start: 10-02-2022 End: 10-02-2022 Patient encounter procedure [facility] Start: 09-27-2022 End: 09-27-2022 ambulatory [facility] Work Phone: Start: 09-27-2022 End: 09-27-2022 Patient encounter procedure [facility] Start: 07-31-2022 End: 07-31-2022 ambulatory [facility] Work Phone: Start: 07-31-2022 End: 07-31-2022 Patient encounter procedure [facility] Start: 06-01-2022 End: 06-01-2022 Emergency department patient visit [facility] Start: 10-06-2021 End: 10-06-2021 Patient encounter procedure Shaka Alonso Work Phone: Podiatry Comment on above: Onychomycosis (Prima ry Dx); Pain in toe of left foot; Pain in toe of right foot; Other diabetic neurological complication associated with type 2 diabetes mellitus (HCC); Hyperkeratosis Start: 10-15-2018 Patient encounter procedure NAHOMY GARCIA Facility:[facility] Start: 07-09-2018 End: 09-27-2018 Patient encounter procedure NAHOMY GARCIA Facility:[facility] Start: 04-02-2018 End: 04-02-2018 Patient encounter procedure NAHOMY GARCIA Facility:[facility] Start: 01-29-2018 End: 01-29-2018 Patient encounter procedure NAHOMY GARCIA Facility:[facility] Start: 10-29-2017 Patient encounter procedure NAHOMY GARCIA Facility:[facility] Start: 10-16-2017 Patient encounter procedure NAHOMY GARCIA Facility:[facility] Procedures Date Procedure Procedure Detail Performing Clinician Start: 10-22-2024 Vitamin D, 25-hydrox y measurement Sarah Navneet [employer] Work Phone: Comment on above: Vitamin D StatusDefi ciency: <20 ng/mL (50nmol/L)Insufficiency: 20-30 ng/mL (50-75 nmol/L)Sufficiency: 30-100 ng/mL (75-250 nmol/L)Toxicity: >100 ng/mL (>250 nmol/L) Start: 07-02-2024 Measurement of renal function Sarah Navneet [employer] Work Phone: Comment on above: GFR Calc Start: 07-02-2024 Microalbuminuria measurement Sarah Navneet [employer] Work Phone: Start: 07-02-2024 Vitamin D, 25-hydrox y measurement Sarahamerico Valencia [employer] Work Phone: Comment on above: Vitamin D 25(OH) Sta tus Range Deficiency <20 ng/mL (50nmol/L) Insufficiency 20 - 30 ng/mL (50 - 75 nmol/L) Sufficiency 30 - 100 ng/mL (75 - 250 nmol/L) Toxicity >100 ng/mL (>250 nmol/L) Start: 11-27-2023 Ophthalmic ultrasoun d dx b-scan w/wo a-scan Honorio Quintana MD Work Phone: Start: 11-27-2023 Fundus photography w/interpretation & report Honorio Quintana MD Work Phone: Start: 09-13-2023 Plain chest X-ray [facility] Work Phone: Start: 03-05-2023 Us abdominal real ti me w/image limited Jay Jay Garcia MD Work Phone: Start: 11-22-2022 Plain X-ray abdomen [facility] Work Phone: Start: 09-27-2022 Screening mammography Start: 03-12-2017 End: 03-12-2017 Follow Up Appt 6 months Kaye grant PA-C Work Phone: Start: 03-12-2017 End: 03-12-2017 PFM Kaye Burris PA-C Work Phone: Start: 12-01-2016 End: 12-01-2016 Follow Up Appt 3 months Kaye grant PA-C Work Phone: Start: 12-01-2016 End: 12-01-2016 Follow Up Appt 6 months Kaye grant PA-C Work Phone: Start: 12-01-2016 End: 12-01-2016 Patito Burris PA-C Work Phone: Start: 12-01-2016 End: 12-01-2016 PFPatito Burris PA-C Work Phone: Start: 12-01-2016 End: 12-01-2016 Follow Up Appt 3 months Kaye grant PA-C Work Phone: Start: 12-01-2016 End: 12-01-2016 Follow Up Appt 6 months Kaye grant PA-C Work Phone: Start: 12-01-2016 End: 12-01-2016 DAY Burris PA-C Work Phone: Start: 12-01-2016 End: 12-01-2016 PF Kaye Burris PA-C Work Phone: Start: 08-23-2016 End: [...] Stewart Boggs MD Start: 10-22-2015 End: 10-22-2015 DAY Boggs MD Start: 09-29-2015 End: 09-30-2015 Referral to trauma coordinator Stewart abraham MD Start: 09-29-2015 End: 09-30-2015 Referral to trauma coordinator Stewart abraham MD Start: 09-20-2015 End: 09-21-2015 Referral to trauma coordinator Stewart abraham MD Start: 09-20-2015 End: 11-10-2016 Us abdominal real time w/image limited Stewart Boggs MD Start: 09-20-2015 End: 11-10-2016 Cardiac Rehab Stewart Boggs MD Start: 09-20-2015 End: 11-10-2016 Echo exam of abdomen Stewart Boggs MD Start: 09-20-2015 End: 09-21-2015 Referral to trauma coordinator Stewart abraham MD Start: 07-22-2015 End: 11-05-2015 [...] MMM Kaye Burris PA-C Work Phone: Start: 06-21-2015 End: 06-23-2015 *BMP Kaye Burris PA-C Work Phone: Start: 06-21-2015 End: 06-23-2015 *MACI Burris PA-C Work Phone: Start: 06-10-2015 End: [...] PA-C Work Phone: Start: 06-10-2015 End: 07-15-2015 PF Kaye Burris PA-C Work Phone: Start: 05-27-2015 End: 06-09-2015 Nuclear stress test -Uma Boggs MD Start: 05-27-2015 End: 06-09-2015 Nuclear stress test -Uma Boggs MD SARS-CoV-2 & FLU Ant igen (Rapid) Plan of Treatment Date Care Activity Detail Author Start: 11-26-2024 Glaucoma screening Dilated Retinal Exam [facility] Start: 02-23-2024 Hepatitis C antibody, confirmatory test Dilated Retinal Exam [facility] Start: 02-10-2024 Influenza vaccination Influenza Vaccine (Season Ended) [facility] Start: 09-13-2023 [facility] Start: 06-11-2023 Advance Directive Discussion Advance Directive Discussion [facility] Start: 06-11-2023 Behavioral Health Screening Behavioral Health Screening [facility] Start: 02-09-2023 Covid-19 Vaccine ( season) Covid-19 Vaccine ( season) [facility] Start: 02-09-2023 Influenza [facility] Start: 06-11-2022 Advance Directive Discussion Advance Directive Discussion [facility] Start: 06-11-2022 Depression Assessment Depression Assessment [facility] Start: 06-01-2022 [facility] Start: 12-10-2021 3 comp foot exam completed DIABETIC FOOT EXAM [facility] Start: 12-10-2021 Diabetic foot examination Diabetic Foot Exam [facility] Start: 10-18-2021 Shingrix Vaccine (2 of 2) Shingrix Vaccine (2 of 2) [facility] Start: 06-11-2021 ADVANCE DIRECTIVE DISCUSSION ADVANCE DIRECTIVE DISCUSSION [facility] Start: 05-19-2020 Pneumococcal Vaccine: 65+ (2 - PPSV23 or PCV20) Pneumococcal Vaccine: 65+ (2 - PPSV23 or PCV20) [facility] Start: 05-19-2020 Pneumococcal Vaccine: 65+ (2 of 2 - PPSV23 or PCV20) Pneumococcal Vaccine: 65+ (2 of 2 - PPSV23 or PCV20) [facility] Start: 01-31-2019 Hepatitis C antibody, confirmatory test DILATED RETINAL EXAM [facility] Start: 11-08-2018 Influenza vaccination LUNG CANCER SCREENING [facility] Start: 2018 BONE DENSITY BONE DENSITY [facility] Start: 2018 Bone Density Screening Bone Density Screening [facility] Start: 2018 PNEUMOVAX AGE 65 AND OVER WITH 5YR LOOKBACK (#1) PNEUMOVAX AGE 65 AND OVER WITH 5YR LOOKBACK (#1) [facility] Start: 2018 Screening for osteoporosis Bone Density Screening [facility] Start: 05-05-2018 Hemoglobin A1c measurement HbA1C [facility] Start: 05-05-2018 Hemoglobin A1c/Hemoglobin.total in Blood HBA1C [facility] Start: 07-17-2017 Hepatitis B surface antibody level LDL Cholesterol [facility] Start: 07-16-2017 End: 07-16-2017 Appointment Appointment [facility] Work Phone: Start: 03-12-2017 End: 03-12-2017 Appointment Appointment [facility] Work Phone: Start: 03-12-2017 End: 03-12-2017 Follow Up Appt 6 months Follow Up Appt 6 months [facility] Work Phone: Start: 03-12-2017 End: 03-12-2017 PFM PFM [facility] Work Phone: Start: 12-01-2016 End: 12-01-2016 Follow Up Appt 3 months Follow Up Appt 3 months [facility] Work Phone: Start: 12-01-2016 End: 12-01-2016 Follow Up Appt 6 months Follow Up Appt 6 months [facility] Work Phone: Start: 12-01-2016 End: 12-01-2016 MMM MMM [facility] Work Phone: Start: 12-01-2016 End: 12-01-2016 PFM PFM [facility] Work Phone: Start: 12-01-2016 End: 12-01-2016 Follow Up Appt 3 months Follow Up Appt 3 months [facility] Work Phone: Start: 12-01-2016 End: 12-01-2016 Follow Up Appt 6 months Follow Up Appt 6 months [facility] Work Phone: Start: 12-01-2016 End: 12-01-2016 MMM MMM [facility] Work Phone: Start: 12-01-2016 End: 12-01-2016 PFM PFM [facility] Work Phone: Start: 08-23-2016 End: 08-31-2016 *BMP *BMP [facility] Work Phone: Start: 08-23-2016 End: 08-23-2016 Follow Up Appt 3 months Follow Up Appt 3 months [facility] Work Phone: Start: 08-23-2016 End: 08-23-2016 MMM MMM [facility] Work Phone: Start: 08-23-2016 End: 08-31-2016 Natriuretic peptide B mass conc (Bld) *Brain Natriuretic Peptide BNP [facility] Work Phone: Start: 08-23-2016 End: 08-31-2016 *BMP *BMP [facility] Work Phone: Start: 08-23-2016 End: 08-31-2016 BNP *Brain Natriuretic Peptide BNP [facility] Work Phone: Start: 08-23-2016 End: 08-23-2016 Follow Up Appt 3 months Follow Up Appt 3 months [facility] Work Phone: Start: 08-23-2016 End: 08-23-2016 MMM MMM [facility] Work Phone: Start: 07-17-2016 End: 03-12-2017 *Hepatic Function Panel *Hepatic Function Panel [facility] Work Phone: Start: 07-17-2016 End: 03-12-2017 Lipid 1996 panel *Lipid Profile CC PCP [facility] Work Phone: Start: 07-17-2016 End: 01-19-2016 *Hepatic Function Panel *Hepatic Function Panel [facility] Work Phone: Start: 07-17-2016 End: 01-19-2016 Lipid panel [AGGREGATE] *Lipid Profile CC PCP [facility] Work Phone: Start: 03-11-2016 End: 04-10-2016 Lipid 1996 panel *Lipid Profile CC PCP [facility] Work Phone: Start: 03-11-2016 End: 04-10-2016 Lipid panel [AGGREGATE] *Lipid Profile CC PCP [facility] Work Phone: Start: 02-29-2016 End: 02-29-2016 Follow Up Appt Other Follow Up Appt Other [facility] Work Phone: Start: 02-29-2016 End: 02-29-2016 PFM PFM [facility] Work Phone: Start: 02-29-2016 End: 02-29-2016 Follow Up Appt Other Follow Up Appt Other [facility] Work Phone: Start: 02-29-2016 End: 02-29-2016 PFM PFM [facility] Work Phone: Start: 01-19-2016 End: 01-19-2016 Carotid duplex Carotid duplex [facility] Work Phone: Start: 01-19-2016 End: 01-19-2016 Follow Up Appt 6 weeks Follow Up Appt 6 weeks [facility] Work Phone: Start: 01-19-2016 End: 11-10-2016 Follow Up Appt Other Follow Up Appt Other [facility] Work Phone: Start: 01-19-2016 End: 01-19-2016 MMM MMM [facility] Work Phone: Start: 01-19-2016 End: 01-19-2016 Carotid duplex Carotid duplex [facility] Work Phone: Start: 01-19-2016 End: 01-19-2016 Follow Up Appt 6 weeks Follow Up Appt 6 weeks [facility] Work Phone: Start: 01-19-2016 End: 11-10-2016 Follow Up Appt Other Follow Up Appt Other [facility] Work Phone: Start: 01-19-2016 End: 01-19-2016 MMM MMM [facility] Work Phone: Start: 11-29-2015 End: 11-29-2015 Follow Up Appt 3 months Follow Up Appt 3 months [facility] Work Phone: Start: 11-29-2015 End: 11-29-2015 Follow Up Appt 6 months Follow Up Appt 6 months [facility] Work Phone: Start: 11-29-2015 End: 11-29-2015 MMM MMM [facility] Work Phone: Start: 11-29-2015 End: 11-29-2015 PFM PFM [facility] Work Phone: Start: 11-29-2015 End: 11-29-2015 Follow Up Appt 3 months Follow Up Appt 3 months [facility] Work Phone: Start: 11-29-2015 End: 11-29-2015 Follow Up Appt 6 months Follow Up Appt 6 months [facility] Work Phone: Start: 11-29-2015 End: 11-29-2015 MMM MMFactonomy [facility] Work Phone: Start: 11-29-2015 End: 11-29-2015 PFM PFFactonomy [facility] Work Phone: Start: 10-22-2015 End: 10-22-2015 Ecg routine ecg w/least 12 lds w/i&r EKG (In office) [facility] Work Phone: Start: 10-22-2015 End: 10-22-2015 Follow Up Appt 6 weeks Follow Up Appt 6 weeks [facility] Work Phone: Start: 10-22-2015 End: 10-22-2015 MMM [employer]Factonomy [facility] Work Phone: Start: 10-22-2015 End: 10-22-2015 Electrocardiogram, complete EKG (In office) [facility] Work Phone: Start: 10-22-2015 End: 10-22-2015 Follow Up Appt 6 weeks Follow Up Appt 6 weeks [facility] Work Phone: Start: 10-22-2015 End: 10-22-2015 MMM [employer]onomy [facility] Work Phone: Start: 09-29-2015 End: 09-29-2015 Cardiac Referral Cardiac Referral Nahomy Garcia MD, [address], [place], [address] [facility] Work Phone: Start: 09-29-2015 End: 09-29-2015 Cardiac Referral Cardiac Referral Nahomy Garcia MD, [address], [place], [address] [facility] Work Phone: Start: 09-20-2015 End: 11-05-2015 Cardiac Rehab Cardiac Rehab [address] [place], [address] [facility] Work Phone: Start: 09-20-2015 End: 11-05-2015 External Counterpulsation Therapy External Counterpulsation Therapy [address] [place], [address] [facility] Work Phone: Start: 09-20-2015 End: 09-20-2015 Us abdominal real time w/image limited US Abdominal (aneurysm screening) [facility] Work Phone: Start: 09-20-2015 End: 11-05-2015 Cardiac Rehab Cardiac Rehab [address] [place], [address] [facility] Work Phone: Start: 09-20-2015 End: 09-20-2015 Echo exam of abdomen US Abdominal (aneurysm screening) [facility] Work Phone: Start: 09-20-2015 End: 11-05-2015 External Counterpulsation Therapy External Counterpulsation Therapy [address] [place], [address] [facility] Work Phone: Start: 07-22-2015 End: 07-22-2015 Echocardiography Echocardiogram (limited) [facility] Work Phone: Start: 07-22-2015 End: 07-22-2015 Follow Up Appt 3 months Follow Up Appt 3 months [facility] Work Phone: Start: 07-22-2015 End: 07-22-2015 MMM MMM [facility] Work Phone: Start: 07-22-2015 End: 07-22-2015 Echocardiography Echocardiogram (limited) [facility] Work Phone: Start: 07-22-2015 End: 07-22-2015 Follow Up Appt 3 months Follow Up Appt 3 months [facility] Work Phone: Start: 07-22-2015 End: 07-22-2015 MMM MMM [facility] Work Phone: Start: 06-21-2015 End: 06-23-2015 *BMP *BMP [facility] Work Phone: Start: 06-21-2015 End: 06-23-2015 *BMP *BMP [facility] Work Phone: Start: 06-10-2015 End: 07-15-2015 Follow Up Appt 3 months Follow Up Appt 3 months [facility] Work Phone: Start: 06-10-2015 End: 06-10-2015 Follow Up Appt 6 weeks Follow Up Appt 6 weeks [facility] Work Phone: Start: 06-10-2015 End: 06-23-2015 Follow Up BP Check Follow Up BP Check [facility] Work Phone: Start: 06-10-2015 End: 06-10-2015 MMM MMM [facility] Work Phone: Start: 06-10-2015 End: 07-15-2015 PFM PFM [facility] Work Phone: Start: 06-10-2015 End: 07-15-2015 Follow Up Appt 3 months Follow Up Appt 3 months [facility] Work Phone: Start: 06-10-2015 End: 06-10-2015 Follow Up Appt 6 weeks Follow Up Appt 6 weeks [facility] Work Phone: Start: 06-10-2015 End: 06-23-2015 Follow Up BP Check Follow Up BP Check [facility] Work Phone: Start: 06-10-2015 End: 06-10-2015 MMM MMM [facility] Work Phone: Start: 06-10-2015 End: 07-15-2015 PFM PFPatito [facility] Work Phone: Start: 05-27-2015 End: 05-28-2015 Nuclear stress test -Lexiscan Nuclear stress test -Lexiscan [facility] Work Phone: Start: 05-27-2015 End: 05-28-2015 Nuclear stress test -Lexiscan Nuclear stress test -Lexiscan [facility] Work Phone: Start: 2013 Hepatitis B Vaccine (1 of 3 - Risk 3-dose series) Hepatitis B Vaccine (1 of 3 - Risk 3-dose series) [facility] Start: 2013 RSV Vaccine (1 - 1-dose 60+ series) RSV Vaccine (1 - 1-dose 60+ series) [facility] Start: 2003 SHINGRIX VACCINE (1 of 2) SHINGRIX VACCINE (1 of 2) [facility] Start: 1998 COLOGUARD (FIT-DNA) COLOGUARD (FIT-DNA) [facility] Start: 1998 Colonoscopy COLONOSCOPY [facility] Start: 1998 COLORECTAL CANCER SCREENING COLORECTAL CANCER SCREENING [facility] Start: [address] COLONOGRAPHY [facility] Start: 1998 FECAL OCCULT BLOOD FECAL OCCULT BLOOD [facility] Start: 1998 Screening for malignant neoplasm of colon [facility] Start: 1998 SIGMOIDOSCOPY SIGMOIDOSCOPY [facility] Start: 1993 Mammography [facility] Start: 1993 Screening for malignant neoplasm of breast Mammogram Screening [facility] Start: 1972 Urine microalbumin profile [facility] Start: 1971 ANNUAL PCP TEAM CHRONIC DISEASE VISIT ANNUAL PCP TEAM CHRONIC DISEASE VISIT [facility] Start: 1971 BP CONTROLLED (<130/80) BP CONTROLLED (<130/80) [facility] Start: 1971 Hepatitis B surface antibody level LDL CHOLESTEROL [facility] Start: 1971 HEPATITIS C SCREENING HEPATITIS C SCREENING [facility] Start: 1971 Hepatitis C screening Hepatitis C Screening [facility] Start: 1965 Adult depression screening assessment DEPRESSION SCREENING [facility] Start: 1963 Hepatitis B screening URINE ALBUMIN:CREATININE RATIO [facility] Hemoglobin A1c/Hemoglobin.total in Blood [facility] Hemoglobin A1c/Hemoglobin.total in Blood [facility] [place] Heart Views W str ess and W radionuclide IV [facility] Patient Education [facility] Work Phone: Patient referral [facility] Work Phone: End: 12-26-2024 US Abdomen RUQ US ABD RIGHT UPPER QUADRANT Radiology Routine 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 Occurrences starting 11/27/2023 until 12/26/2024 [facility] Work Phone: Comment on above: 1 Occurrences starting 11/27/2023 until 12/26/2024 [facility] Immunizations Immunization Date Immunization Notes Care Provider Taye andrew 06-07-2021 influenza virus vaccine, unspecified formulation 1 Work Phone: [facility] 05-09-2019 influenza, injectable,quadrivalent , preservative free, pediatric [facility] 05-27-2015 influenza, injectabl e, quadrivalent, preservative free [facility] Work Phone: [facility] 05-27-2015 influenza, seasonal, injectable [facility] Payers Date Payer Category Payer Medicare [id number] 2023 Self-pay [id number] 2022 Medicare AET[employer] MEDICARE A ETNA MEDICARE PPO [id number] 2022-Present [phone] [address] [place] [address] PPO [id number] 2022 Private Health Insurance [facility] [id number] 2018 Medicare MEDICARE MEDICAR E A AND B [id number] 2018-Present [phone] [address] [address] [place] [address] Medicare [id number] 2018 Unknown HOSPITAL/MEDICAL GENERIC MEDICAL GENERIC [id number] 2018-Present [phone] [address] [place] [address] Indemnity [id number] 2015 Unknown [id number] 1953 Unknown [id number] 2.16.840.1.988694.3.579.2. 278 1953 Unknown [id number] 2.16.840.1.385581.3.579.2. 278 1953 Unknown [id number] 2.16.840.1.894739.3.579.2. 278 1953 Unknown [id number] 2.16.840.1.833402.3.579.2. 278 1953 Unknown [id number] 2.16.840.1.867264.3.579.2. 278 1953 Unknown [id number] 2.16.840.1.622068.3.579.2. 278 1953 Unknown [id number] 2.16.840.1.040395.3.579.2. 278 Medicare [id number] Medicare MEDICARE PART A B [id number] 2 [id number] Unknown [id number] Unknown [id number] 2.16.840.1.993778.3.579.2. 462 Unknown [id number] 2.16.840.1.977706.3.579.2. 462 Unknown [id number] 2.16.840.1.945681.3.579.2. 462 Unknown [id number] 2.16.840.1.758543.3.579.2. 462 Unknown [id number] 2.16.840.1.761319.3.579.2. 462 Unknown [id number] 2.16.840.1.947170.3.579.2. 462 Unknown [id number] 2.16.840.1.649935.3.579.2. 462 Unknown [id number] 2.16.840.1.537932.3.579.2. 462 Unknown [id number] 2.16.840.1.422804.3.579.2. 462 Unknown [id number] 2.16.840.1.527111.3.579.2. 462 Unknown [id number] 2.16.840.1.023022.3.579.2. 462 Unknown [id number] 2.16.840.1.140464.3.579.2. 462 Unknown [id number] 2.16.840.1.581493.3.579.2. 462 Unknown [id number] 2.16.840.1.036185.3.579.2. 462 Unknown [id number] 2.16.840.1.047716.3.579.2. 462 Unknown [id number] 2.16.840.1.927459.3.579.2. 462 Unknown [id number] 2.16.840.1.646077.3.579.2. 462 Unknown [id number] 2.16.840.1.244545.3.579.2. 462 Unknown [id number] 2.16.840.1.347821.3.579.2. 462 Unknown [id number] 2.16.840.1.840634.3.579.2. 462 Unknown [id number] 2.16.840.1.639115.3.579.2. 462 Unknown [id number] Unknown [id number] Unknown [id number] Unknown [id number] Social History Date Type Detail Facility Start: 02-22-2023 End: 02-18-2024 Tobacco smoking status NHIS Ex-smoker [facility] Work Phone: End: 12-26-2006 History of tobacco use Current smoker [facility] Start: 10-06-2021 End: 11-27-2023 Alcohol intake Current drinker of alcohol (finding) [facility] Start: 06-29-2021 History SDOH Alcohol Comment seldom [facility] Start: 1955 Sex Assigned At Not on file [facility] Start: 09-26-2021 End: 10-06-2021 Exposure to SARS-CoV-2 (event) Not sure [facility] Work Phone: Start: 06-01-2022 End: 09-13-2023 Tobacco smoking status KYIS Unknown if ever smoked [facility] Start: 04-30-2020 None [facility] Start: 07-06-2020 Spouse/ Signif icant Other [facility] Start: 10-27-2019 Cigarettes [facility] Start: 1955 Sex Assigned At Female W [facility] End: 12-26-2006 History of tobacco use Cigarette Smoker [facility] Start: 01-03-2023 End: 02-22-2023 Cigarettes smoked current (pack per day) - Reported 2 [facility] Start: 02-22-2023 Tobacco use and exposure Smokeless tobacco non-user [facility] Start: 01-03-2023 End: 02-22-2023 Tobacco use panel [facility] Retired 07/10/2019 P HQ Score 0 [facility] Medical Equipment Procedure Code Equipment Code Equipment Origin al Text Equipment Identifier Dates [employer] ASSOCIATE-D FDA Start: 03-16-2016 [employer] ASSOCIATE-D FDA Start: 03-16-2016 [employer] SERVICES ASSOCIATE-D FDA Start: 03-16-2016 [employer] OFF[employer] SERVICES ASSOCIATE-D FDA Start: 03-16-2016 [employer] OFF[employer] SERVICES ASSOCIATE-D FDA Start: 03-16-2016 [employer] OFFICE SERVICES ASSOCIATE-D FDA Start: 03-16-2016 [employer] OFFICE SERVICES ASSOCIATE-D FDA Start: 03-16-2016 [employer] OFFICE SERVICES ASSOCIATE-D FDA Start: 03-16-2016 [employer] OFFICE SERVICES ASSOCIATE-D FDA Start: 03-16-2016 [employer] OFFICE SERVICES ASSOCIATE-D FDA Start: 03-16-2016 [employer] OFFICE SERVICES ASSOCIATE-D FDA Start: 03-16-2016 [employer] OFFICE SERVICES ASSOCIATE-D FDA Start: 03-16-2016 [employer] OFFICE SERVICES ASSOCIATE-D FDA Start: 03-16-2016 [employer] OFFICE SERVICES ASSOCIATE-D FDA Start: 03-16-2016 [employer] OFFICE SERVICES ASSOCIATE-D FDA Start: 03-16-2016 [employer] OFFICE SERVICES ASSOCIATE-D FDA Start: 03-16-2016 [employer] OFFICE SERVICES ASSOCIATE-D FDA Start: 03-16-2016 [employer] OFFICE SERVICES ASSOCIATE-D FDA Start: 03-16-2016 [employer] OFFICE SERVICES ASSOCIATE-D FDA Start: 03-16-2016 [employer] OFFICE SERVICES ASSOCIATE-D FDA Start: 03-16-2016 [employer] OFFICE SERVICES ASSOCIATE-D FDA Start: 03-16-2016 [employer] OFFICE SERVICES ASSOCIATE-D FDA Start: 03-16-2016 [employer] OFF[employer] SERVICES ASSOCIATE-D FDA Start: 03-16-2016 [employer] OFFICE SERVICES ASSOCIATE-D FDA Start: 03-16-2016 [employer] OFF[employer] SERVICES ASSOCIATE-D FDA Start: 03-16-2016 [employer] OFFICE SERVICES ASSOCIATE-D FDA Start: 03-16-2016 [employer] OFFICE SERVICES ASSOCIATE-D FDA Start: 03-16-2016 [employer] OFFICE SERVICES ASSOCIATE-D FDA Start: 03-16-2016 [employer] OFFICE SERVICES ASSOCIATE-D FDA Start: 03-16-2016 [employer] OFFICE SERVICES ASSOCIATE-D FDA Start: 03-16-2016 [employer] OFF[employer] SERVICES ASSOCIATE-D FDA Start: 03-16-2016 [employer] SERVICES ASSOCIATE-D FDA Start: 03-16-2016 Mental Status Date Assessment Result Facility 09-13-2023 Cognitive function Voice/Name [facility] Work Phone: 06-01-2022 Cognitive function Level Of Cons ciousness Awake;Alert;Appropriate;Follow s Commands [facility] Work Phone: Clinical Notes 10-06-2021 to 07-02-2024 Note Date & Type Note Facility 07-02-2024 Evaluation note Diagnosis Onset Date Resolution 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 July 02, 2024 12:52pm Chronic systolic (congestive) heart failure chronic Jan[place] 2024 12:52pm Dilated cardiomyopathy chronic [facility] 2024 12:52pm Essential hypertension chronic [facility] 2024 12:52pm Pure hypercholesterolemia chronic July 02, 2024 12:52pm Cardiac defibrillator in situ inactive July 02, 2024 12:52pm CKD (chronic kidney disease) stage 3, GFR 30-59 ml/min chronic July 16, 2024 2:29pm Diabetes mellitus, type II chronic July 16, 2024 2:29pm Essential hypertension chronic Fe bruary 2024 2:29pm Hyperlipidemia chronic July 162024 2:29pm Microalbuminuria chronic July 16, 2024 2:29pm Obesity (BMI 30-39.9) chronic Jul ru2024 2:29pm [facility] Work Phone: [phone]) [phone] Evaluation note* Diagnosis Onset Date Resolution Status Admit Date 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 July 02 12:52pm Chronic systolic (congestive ) heart failure chronic July 02 12:52pm Dilated cardiomyopathy chronic 2024 12:52pm Essential hypertension chronic [place] 2024 12:52pm Pure hypercholesterolemia chronic July 02, 2024 12:52pm Cardiac defibrillator in situ inacti ve July 02, 2024 12:52pm CKD (chronic kidney disease) stage 3, GFR 30-59 ml/min chronic 2024 2:29pm Diabetes mellitus, type II chronic July 16, 2024 2:29pm Essential hypertension chronic Fe 2024 2:29pm Hyperlipidemia chronic July 162024 2:29pm Microalbuminuria deleted July 16, 2024 2:29pm Obesity (BMI 30-39.9) deleted Jul 2:29pm CKD (chronic kidney disease) stage 3, GFR 30-59 ml/min chronic October 232024 1:29pm Diabetes mellitus, type II chronic October 23, 2024 1:29pm Essential hypertension chronic 2024 1:29pm Hyperlipidemia chronic October 23, 2024 1:29pm Microalbuminuria due to type 2 diabetes mellitus chronic October 23, 2024 1:29pm Obesity chronic October 23, 2024 1:29pm [facility] Work Phone: 1(688) 616-597009-09-2024 [facility] Medical Records Department [address] [place] [id number] Discharge Summary 02/18/24 1823 MR#: [id number] Acct: [id number] Name: THIAGO PIERRE Rep #: [id number] : 1955 68 From: José Antonio Emerson DO PCP: ARIA Long NP-C Status:DIS IN Location: [facility] [id number] Providers Date of Admission: 02/17/24 Date of Discharge: 02/18/24 Primary Care Physician: ARIA Long, [place] Consultations 02/17/24 21:06 Consult: Tele-Neurology Routine Consulting Provider: [facility] Reason for Consult: Acute Ischemic Stroke/TIA EMERGENT Consult: No MD Notified: Yes Date Notified: 02/17/24 Time Notified: 20:37 Method of Notification: ED Physician Initiated Nursing Unit Staff Notify [facility] of Tele-Neurology Consult: Yes 02/17/24 22:14 Consult: Cardiology Routine Consulting Provider: Misbah Marcum Reason for Consult: Elevated trop EMERGENT Consult: No Notified: Yes Date Notified: 02/18/24 Time Notified: 06:30 Method of Notification: Text Reason For Visit: DYSARTHRIA, ELEVATED TROPONIN Diagnosis Discharge Diagnosis (1) Elevated troponin: Status: Acute Code(s): R79.89 - Other specified abnormal findings of blood chemistry (2) Hx of cardiomyopathy: Status: Acute Code(s): Z86.79 - Personal history of other diseases of the circulatory system (3) Essential hypertension: Status: Chronic Code(s): I10 - Essential (primary) hypertension (4) Cardiac defibrillator in situ: Status: Chronic Code(s): Z95.810 - Presence of automatic (implantable) cardiac defibrillator Plan 1. Transient ischemic attack #2 non-STEMI #3 type 2 diabetes #4 atherosclerotic heart disease #5 hyperlipidemia Medications at Discharge Home Medications gabapentin 300 mg capsule 600 mg PO QHS NERVE PAIN 01/12/16 aspirin 81 mg tablet,delayed release 81 mg PO DAILY@0800 HEALTH MAINTENANCE 01/26/17 cholecalciferol (vitamin D3) 50 mcg (2,000 unit) capsule 2,000 unit PO PAYNE SUPPLEMENT 01/26/17 fluoxetine 40 mg capsule (Prozac) 40 mg PO DAILY depression 11/01/18 cetirizine 10 mg tablet (Zyrtec) 10 mg PO DAILY PRN Allergies 07/23/20 magnesium chloride 71.5 mg (magnesium chloride) tablet,delayed release (Slow- Mag) 71.5 mg PO DAILY suppliment 07/23/20 meclizine 25 mg tablet 25 mg PO TID PRN dizziness 07/23/20 Handicap Parking Placard #1 ea 05/09/22 ondansetron 4 mg disintegrating tablet 4 mg PO Q6H PRN nausea and vomiting #7 tabs 06/01/22 ezetimibe 10 mg tablet (Zetia) 10 mg PO DAILY cholesterol #90 tabs 02/01/23 omeprazole 20 mg tablet,delayed release 40 mg PO DAILY GERD 07/02/23 glipizide 5 mg tablet 5 mg PO DAILY DM 07/04/23 sacubitril 97 mg-valsartan 103 mg tablet (Entresto) 1 tab PO BID HF #180 tabs 09/12/23 cyclobenzaprine 10 mg tablet 5 mg (1/2 x 10 mg) PO TID PRN Muscle Spasm #20 TABLETS 09/13/23 carvedilol 25 mg tablet 25 mg PO BID #180 tabs 12/31/23 furosemide 20 mg tablet 20 mg PO QDAY water pill #30 tabs 12/31/23 insulin aspart U-100 100 unit/mL (3 mL) subcutaneous pen 12 unit subcut 1700 Diabetes 12/31/23 amlodipine 5 mg tablet 5 mg PO DAILY blood pressure 02/17/24 dapagliflozin propanediol 10 mg tablet (Farxiga) 10 mg PO DAILY HF 02/17/24 insulin aspart U-100 100 unit/mL (3 mL) subcutaneous pen (Novolog FlexPen U-100 Insulin aspart) 9 unit subcut .breakfast and lunch diabetes 02/18/24 insulin degludec 100 unit/mL (3 mL) subcutaneous pen (Tresiba FlexTouch U-100 insulin) 18 unit subcut .hs diabetes 02/18/24 semaglutide 1 mg/dose (4 mg/3 mL) subcutaneous pen injector (Ozempic) 1 mg subcut .weekly diabetes 02/18/24 Hospital Course Operations None Procedures 2-D Echocardiogram and Cardiac catheterization Summary of Care Provided Minutes Spent on Discharge: 32 Hospital Course: This 68-year-old white female was seen in the emergency room at [facility] with complaints of nausea and vomiting after taking Ozempic. Patient's blood pressure is noted to be elevated. Patient was treated with IV fluids and given Zofran for nausea. She was also given morphine. Patient was reevaluated and was having difficulty with her speech which she had not had when she first came in the emergency room, CTA of her head and neck was obtained which showed no abnormalities. Patient did not have any focal weakness but she was having obvious speech difficulties. She was seen in the emergency room by teleneurology, she was not felt to be a TNK candidate, labs showed an elevated troponin at 201, patient's white blood cell count was 11.4, chemistry profile was remarkable for a glucose of 306 and a bilirubin of 1.4. Patient was admitted to PCU, troponins were cycled and elevated up to a high of 877, she was seen in consultation by cardiology and underwent an echocardiogram which showed no evidence of a atrial septal defect, she underwent a cardiac catheterization wh (more content not included)...[facility]06-18-2024 NoteDate of Procedure 11/27/2023. Boiling Off Winder Information Butter Wrapper: Rebecca Rey Start time: 2:00 PM. Stop time: 2:[address], stable regressed [id number] NoteDate of Procedure 11/27/2023. Boiling Off Winder Information Aga De La Torre, Electronics Technology Department Chair 11/27/2023 2:22 PM . Notes Eye: Left eye There is no change in the height of the dome shaped lesion at 12:30 posterior to the equator. It is 1.4 mm in height (previously 1.4 mm in height). It is regularly structured, high reflective and too small for vascularity delineation. There are mild, slightly clumped vitreous opacities with a posterior vitreous detachment and an almost total detachment. There are mild, clumped subretinal opacities. No extraocular extension is detected. 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 Author Type: Physician Type: Progress Notes Filed: 11/27/2023 15:39 Note Text: LTFU 01/2018 - 02/2023. Had previously planned on TTT#2. Returning after seeing Dr. Flanagan, concern for exudative retinal detachment left eye. Decreased vision in the left eye over the last few months. Referred by Dr Olivares ([place]) for OS melanoma evaluation Pt w hx [...] Located superior/superotemporal to disc 12-2 oclock position [place]+ SRF+ Drusen+ RPE changes+ Severe NPDR / [...] treated juxtapapillary lesion, resulting exudative retinal detachment -B-scan:height of melanoma at 1.4mm (prev 1.4, initial was 2.1 mm); also has total open funnel Retinal detachment, moderately dense subretinal opacities. systemic: 03/05/23: No hepatic lesion Today: no subretinal hemorrhage, exudative RD, about half of retina is visible, regressed melanoma.stable margins. Explained that tumor regressed, no potential for improve VA, so surgery not recommended. Plan: Follow-up in 12 months, Bscan, fundus, systemic -consider cataract surgery (OD) at home I have confirmed and edited as necessary [...] with all of its relevant components. Honorio Quintana MD November 27, 2023 3:38 [facility]06-18-2024 History of Present illness Narrative* Honorio Quintana MD - 11/27/2023 2:41 PM EDT LTFU 01/2018 - 02/2023. Had previously planned on TTT#2. Returning after seeing Dr. Flanagan, concern for exudative retinal detachment left eye. Decreased vision in the left eye over the last few months. 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 Small Choroidal Melanoma, left eye 2. Subretinal hemorrhage, left eye 3. Exudative retinal detachment, left eye Several prior eye exams for DR- MM/ nevus not observed Juxtapapillary 6.0 x 5.5 x 2.1 mm Located superior/superotemporal to disc 12-2 oclock position [place]+ SRF+ Drusen+ RPE changes+ Severe NPDR / [...] on TTT #2 but was lost to follow- up; noticed gradually declining vision over preceding several months, found to have massive subretinal hemorrhage adjacent to temporal edge of treated juxtapapillary lesion, resulting exudative retinal detachment -B-scan:height of melanoma at 1.4mm (prev 1.4, initial was 2.1 mm); also has total open funnel Retinal detachment, moderately dense subretinal opacities. systemic: 03/05/23: No hepatic lesion Today: no subretinal hemorrhage, exudative RD, about half of retina is visible, regressed melanoma.stable margins. Explained that tumor regressed, no potential for improve VA, so surgery not recommended. Plan: Follow-up in 12 months, Bscan, fundus, systemic -consider cataract surgery (OD) at home I have confirmed and edited as necessary the relevant ophthalmic history, ROS, and the neuro exam findings as obtained by others. I have seen and examined this patient. I have discussed the case and the management of this patient's care with the Resident/Fellow, if applicable. I also have reviewed and agree with the assessment and plan as stated above and agree withall of its relevant components. Honorio Quintana MD November 27, 2023 3:38 PM [facility]23 NoteHNO ID: [id number] Author: Honorio Quintana MD Service: ? Author Type: Physician Type: Progress Notes Filed: 05/28/2023 9:05 PM Note Text: LTFU 01/2018 - 02/2023. Had previously planned on TTT#2. Returning after seeing Dr. Flanagan, concern for exudative retinal detachment left eye. Decreased vision in the left eye over the last few months. 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 Small Choroidal Melanoma, left eye 2. Subretinal hemorrhage, left eye 3. Exudative retinal detachment, left eye Several prior eye exams for DR- MM/ nevus not observed Juxtapapillary 6.0 x 5.5 x 2.1 mm Located superior/superotemporal to disc 12-2 oclock position [place]+ SRF+ Drusen+ RPE changes+ Severe NPDR / [...] with all of its relevant components. Honorio Quintana MD May 28, 2023 9:04 [facility]09-25-2023 History of Present illness Narrative* Sarah Dao RDMS - 03/05/2023 9:15 AM EDT Radiology Service Progress Note PATIENT NAME: Thiago Pierre DATE OF SERVICE: March 05, 2023 TIME: 11:10 AM PATIENT IDENTITY VERIFICATION COMPLETED USING TWO (2) IDENTIFIERS: Name and Date of confirmedby patient verbally. FALL SCREENING: Has the patient [...] 05, 2023 11:10 AM documented in this encounterPark[facility]09-25-2023 NoteHNO ID: [id number] Author: Sarah Dao RDMS Service: ? Author Type: Stonemason Supervisor Type: Progress Notes Filed: 03/05/2023 11:11 AM Note Text: Radiology Service Progress Note PATIENT NAME: Thiago Pierre DATE OF SERVICE: March 05, 2023 TIME: [...] Dao RDMS RVT March 05, 2023 11:10 [facility]09-14-2023 NoteHNO ID: [id number] Author: Honorio Quintana MD Service: ? Author Type: Physician Type: Progress Notes Filed: 02/23/2023 11:07 AM Note Text: LTFU 01/2018 - 02/2023. Had previously planned on TTT#2. Returning after seeing Dr. Flanagan, concern for exudative retinal detachment left eye. Decreased vision in the left eye over the last few months. 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 Small Choroidal Melanoma, left eye 2. Subretinal hemorrhage, left eye 3. Exudative retinal detachment, left eye Several prior eye exams for DR- MM/ nevus not observed Juxtapapillary 6.0 x 5.5 x 2.1 mm Located superior/superotemporal to disc 12-2 oclock position [place]+ SRF+ Drusen+ RPE changes+ Severe NPDR / [...] agree with all of its relevant components. Hnoorio Quintana MD February 23, 2023 11:07 [facility]07-26-2023 NoteHNO ID: [id number] Author: Denny Flanagan MD Service: ? Author [...] and blood pressure control -to retina/Dr. Honorio Quintana as soon as possible for evaluation I have confirmed and edited as necessary the relevant ophthalmic history, ROS, and the neuro exam findings as obtained by others. I have seen and examined Thiago Pierre. I have discussed the case and the management of this patient's care with the Resident/Fellow, if applicable. I also have reviewed and agree with the assessment and plan as stated above and agree with all of its relevant components. Denny Flanagan MD January 03, 2023 10:05 [facility]04-28-2022 History of Present illness Narrative* Shaka Celeste - 10/06/2021 12:58 PM EDT Last saw Dr. Dudley: not present in [...] Objective: Patient presents to clinic ambulating in [place] Vasc: DP and PT pulses are palpable bilateral. CFT is less than 5 seconds bilateral. Skin temperature is warm to cool proximal to distal bilateral. There is mild edema or varicosities noted. Neuro: Protective sensation is intact to the foot and toes when tested with the 5.07 SWM bilateral.Vibratory sensation is decreased at the hallux IPJ [...] diabetic foot care along with proper diet andkeeping their blood sugar under control to prevent complications. Patient is to RTC in 3-4 months. Shaka Alonso DPM documented in this encounterPark[facility]04-28-2022 Instructions* Patient Instructions* Shaka Alonso - 10/06/2021 12:57 PM EDT [...] it. Apply a bandage and wear a differentpair of shoes. Take Care of Your Toenails Cut toenails after bathing, when they are soft. Cut toenails straight across and smooth with a nail file. Avoid cutting into the corners of toes. Do not cut cuticles. If you have neuropathy (or decreased sensation in your feet) a fur puller should always cut your toenails. Be Careful [...] make sure there are no foreign objects orrough areas. Avoid tight socks. Wear natural-fiber socks [...] Go to your health care provider or fur puller to treat these conditions. documented in this encounterPark[facility] HealthEvaluation note* Diagnosis Onychomycosis- Primary Dermatophytosis of nail Pain in toe of left foot Pain in limb Pain in toe of right foot Pain in limb Other diabetic neurological complication associated with type 2 diabetes mellitus (HCC) Hyperkeratosis Acquired keratoderma documented in this encounter [facility] noteNo assessment information availableWSumma [facility] Work Phone: Evaluation note* Diagnosis Onset Date Resolution Status Diabetes mellitus, type II c hronic Essential hypertension chron ic Hyperlipidemia chronic Non compliance w medication regimen chronic Obesity (BMI 30-39.9) chroni c CKD (chronic kidney disease) stage 3, GFR 30-59 ml/min chronic Diabetes mellitus, type II c hronic Hyperlipidemia chronic Obesity (BMI 30-39.9) chroni c Diabetes mellitus, type II c hronic Near syncope acute 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 Cardiac defibrillator in situ chronic Chronic systolic (congestive) heart failure chronic Dilated cardiomyopathy chron ic Essential hypertension chron ic Pure hypercholesterolemia ch ronic Cardiac defibrillator in situ chronic Chronic systolic (congestive) heart failure chronic Dilated cardiomyopathy [facility] Work Phone: Evaluation note* Diagnosis 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) documented in this encounter [facility] note* Diagnosis Onset Date Resolution Status CKD (chronic kidney disease) stage 3, GFR 30-59 ml/min chronic Diabetes mellitus, type II c hronic Essential hypertension chron ic Obesity (BMI 30-39.9) chroni c 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 Cardiac defibrillator in situ chronic Chronic systolic (congestive) heart failure chronic Dilated cardiomyopathy chron ic Essential hypertension chron ic Pure hypercholesterolemia ch ronic Depression chronic Diabetes mellitus, type II c hronic Obesity (BMI 30-39.9) [facility] Work Phone: Evaluation note* Diagnosis Onset Date Resolution Status 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 Cardiac defibrillator in situ chronic Chronic systolic (congestive) heart failure chronic Dilated cardiomyopathy chron ic Essential hypertension chron ic Pure hypercholesterolemia ch ronic Depression chronic Diabetes mellitus, type II c hronic Obesity (BMI 30-39.9) [facility] Work Phone: Evaluation note* Diagnosis 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)- Primary documented in this encounter [facility] for referral (narrative)* Diagnostic Procedure Only (Routine) - Closed Specialty Diagnoses / Procedures Referred By Contac t Referred To Contact US IMAGING Diagnoses 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) Procedures US ABD RIGHT UPPER QUADRANT US ABDOMINAL REAL TIME W/IMAGE LIMITED Honorio Quintana MD [address] [place] [address] [place] [id number] Referral ID Status Reason Start Date Expiration Date V isits Requested Visits Authorized [id number] Closed Auto-Generate d Referral 02/22/2023 03/23/2024 1 1 [facility] for referral (narrative)* Diagnostic Procedure Only (Routine) - Pending Review Specialty Diagnoses / Procedures Referred By Letitia leos Referred To Contact US IMAGING Diagnoses 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) Procedures US ABD RIGHT UPPER QUADRANT US ABDOMINAL REAL TIME W/IMAGE LIMITED Honorio Quintana MD [address] [place] [address] [place] [address] Referral ID Status Reason Start Date Expiration Date Visits Requested Visits Authorized [id number] Pending Review Auto-Generat ed Referral 11/27/2023 12/26/2024 1 1 [facility] for referral (narrative)No reason for referral information availableHepzibah [employer] Work Phone: Summary Purpose Family History No Family History Records Found Relationship Condition Age at Onset Recorded Date/T alberto father Malignant neoplasm of lung Unknown mother Malignant neoplasm of breast Unknown brother Malignant neoplasm Unknown Advance Directives No Advanced Directives Records FoundDocuments on File Type Date Recorded 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 Advance Directive(s) 03/04/2018 3:54 PM Advance Directive(s) 11/09/2017 6:59 AM Advance Directive(s) 10/24/2017 12:13 PM Advance Directive Response Recorded Date/ Time Advance Directives No July 20, 2017 3:03pm Living Will No June 01 8:57am Power of Nightman No June 01, 2022 8:57am Advance Directive Response Recorded Date/ Time Advance Directives No July 20, 2017 4:03pm Living Will No June 01, 2 022 9:57am Power of Nightman No June 01, 2022 9:57am Advance Directive Response Recorded Date/ Time Advance Directives No December 28 9:43am Living Will No December 28, 2022 9:43am Power of Nightman No December 28 9:43am Advance Directive Response Recorded Date/ Time Advance Directives No December 28 8:43am Living Will No December 28, 2022 8:43am Power of Nightman No December 28 8:43am Advance Directive Response Recorded Date/ Time Name of Medical Power of Nightman September 13, 2023 3:04pm Advance Directives No December 28 9:43am Living Will No September 13, 2023 3:04pm Power of Nightman Yes September 12 3:04pm Advance Directive Response Recorded Date/ Time Living Will No February 16, 024 9:22pm Do you have a Healthcare Power of Nightman? No February 17, 2024 9:22pm Advance Directives No December 28 9:43am Chief Complaint and Reason for Visit Chief Complaint GENERAL ILLNESS Chief Complaint SCREENING Chief Complaint Diabetes constipation NEED ORDER 10 WK FU K[employer] Set-Up OVERDUE FU// MEDS. E-ORDER 30 pacer check Reason for Visit Diabetes mellitus, t ype II Essential hypertension Hyperlipidemia Non compliance w medication regimen Obesity (BMI 30-39.9) CKD (chronic kidney disease) stage 3, GFR 30-59 ml/min Diabetes mellitus, type II Hyperlipidemia Obesity (BMI 30-39.9) Diabetes mellitus, type II Near syncope 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 Cardiac defibrillator in situ Chronic systolic (congestive) heart failure Dilated cardiomyopathy Essential hypertension Pure hypercholesterolemia Cardiac defibrillator in situ Chronic systolic (congestive) heart failure Dilated cardiomyopathy Chief Complaint 3 M FU 3 M FU 3 M FU Reason for Visit CKD (chronic kidney disease) stage 3, GFR 30-59 ml/min Diabetes mellitus, type II Essential hypertension Obesity (BMI 30-39.9) 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 Cardiac defibrillator in situ Chronic systolic (congestive) heart failure Dilated cardiomyopathy Essential hypertension Pure hypercholesterolemia Depression Diabetes mellitus, type II Obesity (BMI 30-39.9) Chief Complaint 3 M FU 3 M FU CHEST PAIN Reason for Visit Atherosclerotic hear t disease of [place] coronary artery without angina pectoris Cardiac defibrillator in situ Chronic systolic (congestive) heart failure Dilated cardiomyopathy Essential hypertension Pure hypercholesterolemia Depression Diabetes mellitus, type II Obesity (BMI 30-39.9) Chief Complaint Admit Date 3 M FU July 02, 2024 1 2:52pm Pacer Check Remote July 14, 2024 3 :31am 3 M FU July 16, 2024 2 :29pm Pacer Check Remote October 13, 2024 3:32am 3 M FU October 23, 2024 1:29p m Reason for Visit Admit Date Atherosclerotic heart diseas e of [place] coronary artery without angina pectoris July 02, 2024 12:52pm Chronic systolic (congestive) heart fail ure July 02, 2024 12:52pm Dilated cardiomyopathy July 02 12:52pm Essential hypertension July 02 12:52pm Pure hypercholesterolemia July 02, 2024 12:52pm Cardiac defibrillator in situ July 022024 12:52pm CKD (chronic kidney disease) stage 3, GF R 30-59 ml/min July 16, 2024 2:29pm Diabetes mellitus, type II July 16, 2024 2:29pm Essential hypertension July 16 2:29pm Hyperlipidemia July 16, 2024 2 :29pm Microalbuminuria July 16, 2024 2 :29pm Obesity (BMI 30-39.9) July 16, 2024 2:29pm Reason for Visit Admit Date Atherosclerotic heart diseas e of [place] coronary artery without angina pectoris July 02, 2024 12:52pm Chronic systolic (congestive) heart fail ure July 02, 2024 12:52pm Dilated cardiomyopathy July 02 12:52pm Essential hypertension July 02 12:52pm Pure hypercholesterolemia July 02, 2024 12:52pm Cardiac defibrillator in situ July 022024 12:52pm CKD (chronic kidney disease) stage 3, GF R 30-59 ml/min July 16, 2024 2:29pm Diabetes mellitus, type II July 16, 2024 2:29pm Essential hypertension July 16 2:29pm Hyperlipidemia July 16, 2024 2 :29pm Microalbuminuria July 16, 2024 2 :29pm Obesity (BMI 30-39.9) July 16, 2024 2:29pm CKD (chronic kidney disease) stage 3, GF R 30-59 ml/min October 23, 2024 1:29pm Diabetes mellitus, type II October 23 1:29pm Essential hypertension October 23, 2024 1: 29pm Hyperlipidemia October 23, 2024 1:29p m Microalbuminuria due to type 2 diabetes mellitus October 23, 2024 1:29pm Obesity October 23, 2024 1:29p m Additional Source Comments INFORMATION SOURCE (unrecogn ized section and content) DATE CREATED AUTHOR 09/28/2018 [facility] DATE CREATED AUTHOR AUTHOR'S ORGANIZ ATION 02/21/2020 [facility] DATE CREATED AUTHOR AUTHOR'S ORGANIZ ATION 12/02/2023 [facility] DATE CREATED AUTHOR AUTHOR'S ORGANIZ ATION 11/08/2024 [facility] Source Comments (unrecognize d section and content) In the event this informatio n is protected by the Federal Confidentiality of Alcohol and Drug Abuse Patient Records regulations: The Federal rules restrict any use of the information to criminally investigate or prosecute any alcohol or drug abuse patient.[facility] the event this information is protected by the Federal Confidentiality of Alcohol and Drug Abuse Patient Records regulations: The Federal rules restrict any use of the information to criminally investigate or prosecute any alcohol or drug abuse patient.[facility] the event this information is protected by the Federal Confidentiality of Alcohol and Drug Abuse Patient Records regulations: The Federal rules restrict any use of the information to criminally investigate or prosecute any alcohol or drug abuse patient.[facility] Reason for Visit (unrecogniz ed section and content) Reason Comments Nail care Diabetic Foot Care blister on right great toe Reason Comments Radiology US Specialty Diagnoses / Procedures Referred By Letitia t Referred To Contact US IMAGING Diagnoses 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) Procedures US ABD RIGHT UPPER QUADRANT US ABDOMINAL REAL TIME W/IMAGE LIMITED Honorio Quintana MD [address] [place] [address] [place] [address] Referral ID Status Reason Start Date Expiration Date V isits Requested Visits Authorized [id number] Closed Auto-Generate d Referral 02/22/2023 03/23/2024 1 1 Reason Comments Malignant Melanoma (Choroid) Follow Up s /p plaque + TTT OS 11/12/2017 Care Teams (unrecognized sec tion and content) 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 Relationship Specialty Start Date End Date Shante Dudley PCP - General Family Practice 03/27/17 Ovi Olivares MD [address] [place] [id number] Referring Ophthalmology 03/22/17 Kristen Harrison (Historical), [employer] MECH[employer]ICAL DESIGNER Referring Orthopedics 08/19/20 Team Status: Active Member Role Status Dates [facility] Family Provider Active [facility] Primary Care Provider A ctive Team Status: Inactive Member Role Status Dates Sarah Valencia NP, [employer] Other Provider Active [facility] Primary C are Provider, Attending Provider, Referring Provider Active Team Status: Inactive Member Role Status Dates Dr. Genie Chambers Primary Care Provider Active Dr. Antonio Herr MD Attending Provider, Emergency Pro vider Active Team Status: Inactive Member Role Status Dates [facility] Primary Care Provider A ctive HEIDI AMANDA , [employer] Attending Provider, Referring Provider Active Team Status: Active Member Role Status Dates [facility] Primary C are Provider, Attending Provider, Referring Provider Active Sarah Valencia [employer], [employer] Other Provider Active Team Status: Inactive Member Role Status Dates [facility] Primary C are Provider, Attending Provider, Referring Provider Active Sarah Valencia [employer], [employer] Other Provider Active Team Status: Active Member Role Status Dates [facility] Family Provider Active Sarah Valencia [employer], [employer] Primary Care Provider Active Team Status: Inactive Member Role Status Dates [facility] Primary Care Provider, Referring Provider Active Lavonne Bridges [employer] Attending Provider Active Team Status: Inactive Member Role Status Dates [facility] Primary Care Provider, Referring Provider Active Lico Noel [employer], [employer] Attending Provider Active Team Status: Inactive Member Role Status Dates [facility] Primary Care Provider A ctive Dr. Nathanael Corrales MD Attending Provider Active Team Status: Inactive Member Role Status [facility] Referring Provider Leila Field Attending Provider Active Sarah Valencia [employer], [employer] Primary Care Provider Active Team Status: Inactive Member Role Status Dates [facility] Primary Care Provider A ctive Dr. Rhea Barber , Attending Provider, Emergency Pro vider Active Team Status: Inactive Member Role Status Dates Sarah Valencia [employer], [employer] Primary Care Provider Active Lico Noel [employer], [employer] Attending Provider, Referring P rovider Active 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 Relationship Specialty Start Date End Date Shante Dudley [address] [place] [address] PCP - General Family Medicine 03/27/17 Ovi Olivares MD [address] [place] [address] Referring Ophthalmology 03/22/17 Kristen Harrison (Historical), [employer] MECH[employer]ICAL DESIGNER [address] [place] [address] Referring Orthopedics 08/19/20 Team Status: Inactive Member Role Status [facility] Primary Care Provider A ctive Dr. Justyn Lu DO Emergency Provider Active 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 Relationship Specialty Start Date End Date Shante Dudley [address] [place] [address] PCP - General Family Medicine 03/27/17 Ovi Olivares MD [address] [place] [address] Referring Ophthalmology 03/22/17 Kristen Harrison (Historical), [employer] MECH[employer]ICAL DESIGNER [address] [place] [address] Referring Orthopedics 08/19/20 Team Status: Active Member Role Status Dates Sarah KNAPP, [employer] Primary Care Provider Activ e Team Status: Inactive Member Role Status Dates Sarah KNAPP, [employer] Primary Care Provider Activ e Start: July 02, 2024 End: July 02, 2024 Sarah KNAPP, [employer] Attending Provider Active Start: July 02, 2024 End: July 02, 2024 Sarah KNAPP, [employer] Referring Provider Active Start: July 02, 2024 End: July 02, 2024 Team Status: Inactive Member Role Status Dates Sarah KNAPP, [employer] Primary Care Provider Activ e Start: July 02, 2024 End: July 02, 2024 Sarah KNAPP, [employer] Referring Provider Active Start: July 02, 2024 End: July 02, 2024 Kaye Burris PA, PA Attending Provider Active Start: July 02, 2024 End: July 02, 2024 Team Status: Inactive Member Role Status Dates Sarah KNAPP, [employer] Primary Care Provider Activ e Start: July 14, 2024 End: July 14, 2024 Dr. Misbah Marcum MD Attending Provider Active S tart: July 14, 2024 End: July 14, 2024 Dr. Misbah Marcum MD Referring Provider Active S tart: July 14, 2024 End: July 14, 2024 Team Status: Inactive Member Role Status Dates Sarah KNAPP, [employer] Primary Care Provider Activ e Start: July 16, 2024 End: July 16, 2024 Sarah Navneet VSC, [employer] Referring Provider Active Start: July 16, 2024 End: July 16, 2024 Lavonne Bridges NP-C Attending Provider Active Start: July 16, 2024 End: July 16, 2024 Team Status: Inactive Member Role Status Dates Sarah Valencia VSC, [employer] Primary Care Provider Activ e Start: October 13, 2024 End: October 13, 2024 Dr. Misbah Marcum MD Attending Provider Active S tart: October 13, 2024 End: October 13, 2024 Team Status: Active Member Role Status Dates Sarah Valencia VSC, [employer] Primary Care Provider Activ e Start: October 22, 2024 Sarah Navneet VSC, [employer] Attending Provider Active Start: October 22, 2024 Team Status: Inactive Member Role Status Dates Sarah Valencia VSC, [employer] Primary Care Provider Activ e Start: October 23, 2024 End: October 23, 2024 Sarah Navneet VSC, [employer] Referring Provider Active Start: October 23, 2024 End: October 23, 2024 Lavonne Bridges NP-C Attending Provider Active Start: October 23, 2024 End: October 23, 2024 Team Status: Inactive Member Role Status Dates Sarah Valencia VSC, [employer] Primary Care Provider Activ e Start: October 22, 2024 End: October 22, 2024 Sarah Valencia VSC, [employer] Attending Provider Active Start: October 22, 2024 End: October 22, 2024 Goals (unrecognized section and content) Goals may be documented in a n alternate sectionGoals may be documented in an alternate sectionGoals may be documented in an alternate sectionGoals may be documented in an alternate sectionGoals may be documented in an alternate sectionGoals may be documented in an alternate sectionGoals may be documented in an alternate sectionGoals may be documented in an alternate section FOR RECORDS PERTAINING TO PATIENTS WHO ARE [...] BE BASED ON THE PRIMARY CLINICAL RECORDS. [facility] [employer] [facility]. provides no warranty or guarantee of the accuracy or completeness of information in this document.
[2024-11-30 12:22] VITALS: O2SAT 95
[2024-11-30 12:22] LABS: Absolute Lymphocyte Count 2.21 X10^3/uL (0.83-4.51); Absolute Neutrophil Count 3.6 X10^3/uL (2.0-7.7); Basophil# 0.04 X10^3/uL; Basophil% 0.6 % (0-1); Eosinophil# 0.14 X10^3/uL; Eosinophils% 2.2 % (0-5); Hemoglobin 13.4 g/dL (12.0-15.0); Lymphocyte # 2.21 X10^3/ul (0.83-4.51); Lymphocyte % 34.7 % (19-41); Mean Corp Hgb Conc 33.5 g/dL (32-36); Mean Corpuscular Hgb 29.1 pg (27.0-32.0); Mean Corpuscular Volume 86.8 fL (81-99); Mean Platelet Vol. 9.2 fl (6.2-12.0); Monocyte# 0.34 X10^3/uL; Monocyte% 5.3 % (0-10); NRBC Flagged by Analyzer 0 % (0-5); Neutrophil # 3.62 X10^3/uL (2.7-7.7); Neutrophil % 56.9 % (47-70); Platelet Count 280 K/mm3 (150-450); RBC Distribution Width CV 12.9 % (11.6-14.6); RBC Distribution Width SD 40.4 fl (35.1-43.9); Red Blood Count 4.61 M/mm3 (4.2-5.4); White Blood Count 6.4 K/mm3 (4.4-11.0)
[2024-11-30 12:38] VITALS: BP 106/57; PULSE 60; RESP 18; O2SAT 97
[2024-11-30 12:40] LABS: Anion Gap 13 (5-15); BUN 28 mg/dL (4-19); BUN/Creat Ratio 21.4 RATIO (10-20); Carbon Dioxide 23.7 mmol/L (21.0-32.0); Chloride 97 mmol/L (98-108); Creatinine, Serum 1.33 mg/dL (0.70-1.20); EST Glomerular Filtration Rate 43 (>60); Glucose 262 mg/dL (70-99); Potassium 4.3 mmol/L (3.3-5.1); Sodium Level 134 mmol/L (133-145)
[2024-11-30 12:43] LABS: Pro- Brain NATRIURETIC PEPTIDE 172 pg/mL (<=900)
[2024-11-30] MEDS: Furosemide 40 MG/4 ML Vial IV (12:50)
[2024-11-30 12:55] LABS: Troponin T High Sensitivity 14 ng/L (<=14)
[2024-11-30 13:51] VITALS: BP 112/78; PULSE 65; RESP 18; O2SAT 98
[2024-11-30 14:20] VITALS: BP 134/78; PULSE 60; RESP 18; O2SAT 98
[2024-11-30 14:52] LABS: Troponin T High Sens 2 HR 15 ng/L (<=14)
[2024-11-30 15:26] VITALS: BP 110/57; PULSE 60; RESP 18; TEMP 36.8; O2SAT 96
== END 2024-11-30 15:26 | disposition home or self-care (01) ==
PROVIDERS: Emergency Provider Emergency Medicine; PCP Nurse Practitioner Family; Visit Provider Emergency Medicine
DX: R06.09 Other forms of dyspnea (principal); I13.0 Hypertensive heart and chronic kidney disease with heart failure and stage 1 through stage 4 chronic kidney disease, or unspecified chronic kidney disease; I50.22 Chronic systolic (congestive) heart failure; I42.0 Dilated cardiomyopathy; E11.22 Type 2 diabetes mellitus with diabetic chronic kidney disease; Z79.4 Long term (current) use of insulin; N18.30 Chronic kidney disease, stage 3 unspecified; G47.33 Obstructive sleep apnea (adult) (pediatric); I89.0 Lymphedema, not elsewhere classified; Z87.891 Personal history of nicotine dependence; R06.01 Orthopnea; E78.00 Pure hypercholesterolemia, unspecified; I25.10 Atherosclerotic heart disease of native coronary artery without angina pectoris; R60.9 Edema, unspecified; Z79.899 Other long term (current) drug therapy; Z95.810 Presence of automatic (implantable) cardiac defibrillator; Z79.82 Long term (current) use of aspirin
CPT/HCPCS: 71046; 80048; 83880; 84484; 85025; 93005; 99284; A4216; J1938

== ENCOUNTER 2024-12-28 15:38 | Emergency (ER) | payer MEDICARE, SELFPAY ==
[2024-12-28 15:39] VITALS: BP 135/65; PULSE 60; RESP 20; TEMP 35.6; O2SAT 96; BMI 44.9
--- NOTE | 2024-12-28 15:53 | EDS_ITS ---
HPI History of Present Illness Chief Complaint: Rash Detail of Chief Complaint: Rash Informant: patient Narrative Narrative: Patient presents with a rash to her right upper arm for 2 days. It is red and she feels like it spreading and itchy. Somewhat burning sensation. She has not been immunized against shingles. She denies any contact exposures. She has not worked in the yard. Denies any new medications or soaps or detergents. Patient also has a small lesion on her left lateral thigh that she thinks was a bug bite that she woke up with 3 days ago. [facility] Medical History Essential hypertension Elevated troponin History of diabetes mellitus Hx of cardiomyopathy Dysarthria Medication reaction Intractable nausea and vomiting Dizziness Depression Near syncope Vertigo Carotid artery disease Pure hypercholesterolemia Atherosclerotic heart disease of [place] coronary artery without angina pectoris Nonrheumatic mitral (valve) insufficiency Dilated cardiomyopathy Chronic systolic (congestive) heart failure [place] (acute kidney injury) Abnormal electrocardiogram Systolic CHF, acute Hypertension Hyperlipidemia Diabetes mellitus, type II NICOLLE (obstructive sleep apnea) Home Medications ?Medication ?Instructions ?Recorded ?Last Taken ?Type aspirin 81 mg tablet,delayed 81 mg PO DAILY@0800 HEALT H 01/26/17 11/29/24 History release MAINTENANCE magnesium chloride 71.5 mg 71.5 mg PO DAILY suppliment 07/23/20 11/30/24 History (magnesium chloride) tablet,delayed release (Slow-Mag) meclizine 25 mg tablet 25 mg PO TID PRN dizziness 0 07/23/20 11/30/24 History Handicap Parking Placard #1 ea 05/09/22 Unknown Rx cyclobenzaprine 10 mg tablet 10 mg PO TID PRN Muscle S pasm 04/16/24 11/30/24 History gabapentin 300 mg capsule 300 mg PO DAILY NERVE PAIN 0 10/23/24 11/30/24 History Humalog KwikPen Insulin 100 15 unit (0.15 mL) subcut T ID #54 mL 10/31/24 11/30/24 Rx
--- NOTE | 2024-12-28 15:53 | EX.ED.DYSGE1 ---
HPI History of Present Illness Chief Complaint: Rash Detail of Chief Complaint: Rash Informant: patient Narrative Narrative: Patient presents with a rash to her right upper arm for 2 days. It is red and she feels like it spreading and itchy. Somewhat burning sensation. She has not been immunized against shingles. She denies any contact exposures. She has not worked in the yard. Denies any new medications or soaps or detergents. Patient also has a small lesion on her left lateral thigh that she thinks was a bug bite that she woke up with 3 days ago. [facility] Medical History Essential hypertension Elevated troponin History of diabetes mellitus Hx of cardiomyopathy Dysarthria Medication reaction Intractable nausea and vomiting Dizziness Depression Near syncope Vertigo Carotid artery disease Pure hypercholesterolemia Atherosclerotic heart disease of [place] coronary artery without angina pectoris Nonrheumatic mitral (valve) insufficiency Dilated cardiomyopathy Chronic systolic (congestive) heart failure BALWINDER (acute kidney injury) Abnormal electrocardiogram Systolic CHF, acute Hypertension Hyperlipidemia Diabetes mellitus, type II NICOLLE (obstructive sleep apnea) Home Medications ?Medication ?Instructions ?Recorded ?Last Taken ?Type aspirin 81 mg tablet,delayed 81 mg PO DAILY@0800 HEALTH 01/26/17 11/29/24 History release MAINTENANCE magnesium chloride 71.5 mg 71.5 mg PO DAILY suppliment 07/23/20 11/30/24 History (magnesium chloride) tablet,delayed release (Slow-Mag) meclizine 25 mg tablet 25 mg PO TID PRN dizziness 07/23/20 11/30/24 History Handicap Parking Placard #1 ea 05/09/22 Unknown Rx cyclobenzaprine 10 mg tablet 10 mg PO TID PRN Muscle Spasm 04/16/24 11/30/24 History gabapentin 300 mg capsule 300 mg PO DAILY NERVE PAIN 10/23/24 11/30/24 History Humalog KwikPen Insulin 100 15 unit (0.15 mL) subcut TID #54 mL 10/31/24 11/30/24 Rx unit/mL subcutaneous (insulin lispro) sacubitril 97 mg-valsartan 103 mg 1 tab PO BID HF #180 tabs 11/04/24 11/30/24 Rx tablet (Entresto) furosemide 20 mg tablet 20 mg PO QDAY water pill #90 tabs 11/17/24 11/30/24 Rx tirzepatide 2.5 mg/0.5 mL 2.5 mg (0.5 mL) subcut QWEEK #2 mL 11/27/24 11/26/24 Rx subcutaneous pen injector (Mounjaro) amlodipine 10 mg tablet 10 mg PO DAILY 11/30/24 11/30/24 History carvedilol 25 mg tablet 25 mg PO DAILY 11/30/24 11/30/24 History cholecalciferol (vitamin D3) 1,250 1,250 mcg PO QWEEK 11/30/24 11/23/24 History mcg (50,000 unit) capsule dapagliflozin propanediol 10 mg 10 mg PO DAILY 11/30/24 11/30/24 History tablet (Farxiga) gabapentin 300 mg capsule 600 mg PO QHS 11/30/24 11/29/24 History insulin degludec 100 unit/mL (3 18 unit subcut Q24H diabetes 11/30/24 11/30/24 History mL) subcutaneous pen (Tresiba FlexTouch U-100 insulin) cephalexin 500 mg capsule 500 mg PO Q8H #21 caps 12/28/24 Unknown Rx famciclovir 500 mg tablet 500 mg PO Q8H 7 days #21 tabs 12/28/24 Unknown Rx prednisone 20 mg tablet 20 mg PO BID #10 tabs 12/28/24 Unknown Rx Allergy/AdvReac Type Severity Reaction Status Date / Time red dye Allergy Hives Verified 12/28/24 15:41 Cgutmcu-OZT-ReU Reductase AdvReac Severe Myalgias Verified 12/28/24 15:41 Inhibitor (Bvbvrrg-Mrm-Mcm Reductase Inhibitor) Family History Father , Lung cancer Lung cancer Mother , Breast cancer Breast cancer Brother Cancer lymphoma Surgical History History of eye surgery History of left heart catheterization (LHC) (~05/26/15) Status post foot surgery Status post breast reduction S/P hysterectomy History of bilateral breast reduction surgery History of bilateral foot surgery History of hysterectomy Cardiac defibrillator in situ Social History household members: spouse Smoking Status: Former smoker quit date: 06/11/06 alcohol intake: never substance use type: does not use caffeine: No what type of physical activity do you participate in: none seatbelt use: always do you feel safe at home: Yes ROS ROS ED Review of Systems ROS Unobtainable: other Constitutional Constitutional ED: Reports lethargy; Denies chills, fever(s), sweats or weight loss Eyes Eyes: Denies blurry vision, change in vision or diplopia ENT ENT ED: Denies rhinorrhea or sore throat Cardiovascular Cardiovascular: Denies chest pain, orthopnea or racing heartbeat Respiratory/Chest Respiratory/Chest: Denies cough, dyspnea, dyspnea on exertion, orthopnea or sputum Gastrointestinal Gastrointestinal: Denies abdominal pain, diarrhea, nausea or vomiting Genitourinary Genitourinary ED: Denies dysuria, hematuria or urinary frequency Musculoskeletal Musculoskeletal: Denies arthralgias, back pain, myalgias or neck pain Integumentary Reports rash; Denies abscess or Abrasions Neurologic Neurologic: Denies headache(s) or weakness Psychiatric Psychiatric: Denies anxiety, depression or suicidal thoughts Endocrine Endocrinology: Denies polydipsia, polyphagia or polyuria Hematologic/Lymphatic Hematologic/Lymphatic: Denies easy bleeding, easy bruising or lymphadenopathy Allergic/Immunologic Allergic/Immunologic ED: Denies mouth swelling, tongue swelling or urticaria EXAM Physical Exam Const Vital Signs: 12/28/24 15:39 Temperature 96.0 F L Temperature Source Temporal Pulse Rate 60 Respiratory Rate 20 H Blood Pressure 135/65 H Blood Pressure Mean 88 Pulse Ox 96 Oxygen Delivery Method Room Air Positive well nourished and well developed General Appearance ED: well developed and NAD HEENT Reports TM's clear and moist mucous membranes normocephalic and atraumatic; Negative for trauma or tenderness Tympanic Membrane ED: Yes TM's clear Eyes PERRL and EOMs intact bilaterally General Eye ED: Negative for pale conjunctiva or scleral icterus Neck no lymphadenopathy, supple and no JVD General: Negative for tenderness Chest Wall inspection of chest normal and palpation of chest normal Chest: Negative for tenderness Resp normal respiratory effort and clear to auscultation bilaterally Effort and Inspection: Negative for respiratory distress or pain with movement Auscultation: Negative for rhonchi, wheezes or diminished lung sounds Cardio regular rate, regular rhythm, S1 normal heart sound, S2 normal heart sound and no murmurs Peripheral Pulses: pulses 2+ throughout GI normal to inspection, nondistended, normoactive bowel sounds, soft to palpation, non-tender, non-distended and no masses Back/Spine no CVA tenderness and no thoracic nor lumbar tenderness Extremity normal to inspection General Extremety ED: Negative for edema General Extremity: Negative for edema Neuro oriented x3, CN's II-XII intact bilaterally, no sensory deficits noted and gait normal Sensorium / Orientation: awake, alert, oriented to person, oriented to place and oriented to time Motor Exam: strength 5/5 throughout and strength abnormal Psych mental status grossly normal Skin no wounds Skin Narrative: Right arm-patient has erythematous clusters in a dermatomal distribution over the upper/posterior arm. No significant weeping. Central portion of these papules appear to be slightly vesicular. No purpura noted. Left lateral thigh-1 solitary lesion noted measuring by 1 cm in diameter erythematous and papular. Not cellulitic. MDM MDM MDM Narrative Medical decision making narrative: Patient presents with a rash to her right upper arm. Concern for possible shingles. Also on the differential would be infectious etiology with staph or strep. She clinically looks well. Will treat with Benadryl for itching which she has had in the past and is tolerated well. Patient will also be started on prednisone and Famvir. Will cover with Keflex for possible infectious etiology as well. Advised to follow-up with primary care physician within the next 5 to 7 days. Discharge Plan Triage Chief Complaint: Rash ED Provider: Rhea Barber Dx/Rx/DC Orders Clinical Impression: Shingles Instructions: ED Shingles (Herpes Zoster) Prescriptions: New prednisone 20 mg tablet 20 mg PO BID Qty: 10 0RF famciclovir 500 mg tablet 500 mg PO Q8H 7 Days Qty: 21 0RF cephalexin 500 mg capsule 500 mg PO Q8H Qty: 21 0RF No Action meclizine 25 mg tablet 25 mg PO TID PRN (Reason: dizziness) Slow-Mag 71.5 mg tablet,delayed release (DR/EC) 71.5 mg PO DAILY cyclobenzaprine 10 mg tablet 10 mg PO TID PRN (Reason: Muscle Spasm) Entresto 97-103 mg tablet 1 tab PO BID Qty: 180 3RF gabapentin 300 mg capsule 300 mg PO DAILY Patient Comments: nerve pain Rx Instructions: AM aspirin 81 MG tablet 81 mg PO DAILY@0800 Patient Comments: [facility] amlodipine 10 mg tablet 10 mg PO DAILY cholecalciferol (vitamin D3) 1,250 mcg (50,000 unit) capsule 1,250 mcg PO QWEEK dapagliflozin propanediol [Farxiga] 10 mg tablet 10 mg PO DAILY gabapentin 300 mg capsule 600 mg PO QHS carvedilol 25 mg tablet 25 mg PO DAILY Rx Instructions: must administer with a meal/food insulin degludec [Tresiba FlexTouch U-100] 100 unit/mL (3 mL) insulin pen 18 unit subcut Q24H (DME) Handicap Parking Placard See Rx Instructions .Route .MEDSUPPLY Qty: 1 0RF Rx Instructions: As directed insulin lispro [Humalog KwikPen Insulin] 100 unit/mL insulin pen 15 unit subcut TID Qty: 54 2RF furosemide 20 mg tablet 20 mg PO QDAY Qty: 90 3RF Mounjaro 2.5 mg/0.5 mL pen injector 2.5 mg subcut QWEEK Qty: 2 3RF Primary Care Provider: Sarah Toth Referrals: Sarah Toth, HOSPITAL CHIEF [employer] [Primary Care Provider] - 5-7 Days Print Language: [place]i Disposition Disposition: Home, Self Care
[2024-12-28 16:13] VITALS: BP 135/65; PULSE 60; RESP 20; TEMP 35.6; O2SAT 96
--- OUTSIDE RECORDS SUMMARY | 2024-12-28 16:15 | XMS RPT_ITS | CCD ---
Author Organization [facility] Care Team Providers Care Coding Assistant Name Role Phone Kenna BARRIOS, Kaye Hernadez Unavailable [phone] Rivera, Aaliyah Unavailable Unavailable Rivera, Aaliyah Unavailable [...] Aaliyah Unavailable Unavailable Ovi Olivares MD Unavailable Shante Dudley Primary Care Provider Hunter FALLON Kristen (Historical) Unavailable [facility] Primary Care Pro vider [facility], [facility] Referring Provid er EVENS Bridges Attending Provider [phone] Dr. Nathanael Corrales Attending Provider Bert SNIDER, INSERT OPERATOR-C Lico Attending Provider Rachel Field Attending Provider Unavailable Navneet SNIDER, INSERT OPERATOR-C Sarah Primary Care Provider Ovi Olivares MD Unavailable [phone] Shante Dudley Primary Care Provider Hunter FALLON Kristen (Historical) Unavailable [facility], [facility] Primary Care Pro vider [facility], [facility] Referring Provid er EVENS Bridges Attending Provider EVENS Noel NP Attending Provider [facility], [facility] Primary Care Pro vider [facility], [facility] Referring Provid er EVENS Noel NP Attending Provider EVENS Bridges Attending Provider Swihart, Shante L Primary Care Provider SWIHART, SHANTE L Primary Care Unavailable QUINTANA, HONORIO D Referring Unavailable SWIHART, SHANTE L Primary Care Unavailable QUINTANA, HONORIO D Referring Unavailable SWIHART, SHANTE L Primary Care Unavailable QUINTANA, HONORIO D Attending Unavailable SWIHART, SHANTE L Primary Care Unavailable DENNY FLANAGAN Attending Unavailable SWIHART, SHANTE L Primary Care Unavailable QUINTANA, HONORIO D Referring Unavailable SWIHART, SHANTE L Primary Care Unavailable QUINTANA, HONORIO D Referring Unavailable QUINTANA, HONORIO D Attending Unavailable SWIHART, SHANTE L Primary Care Unavailable QUINTANA, HONORIO D Referring Unavailable SWIHART, SHANTE L Primary Care Unavailable QUINTANA, HONORIO D Referring Unavailable QUINTNAA, HONORIO D Attending Unavailable Navneet INSERT OPERATOR-C, Sarah Primary Care Provider Navneet INSERT OPERATOR-C, Sarah Attending Provider Navneet INSERT OPERATOR-C, Sarah Referring Provider Kaye Willoughby Attending Provider [phone] Dr. Misbah Marcum MD Attending Provider [phone] Dr. Misbah Marcum MD Referring Provider [phone] Lavonne Mccollum Attending Provider Navneet INSERT OPERATOR-C, Sarah Primary Care Provider Dr. Misbah Marcum MD Attending Provider [phone] Dr. Misbah Marcum MD Referring Provider Navneet INSERT OPERATOR-C, Sarah Attending Provider Navneet INSERT OPERATOR-C, Sarah Referring Provider Cyrus INSERT OPERATOR-CLavonne Attending Provider Erlin HASSAN, Dr. Jauregui Emergency Provider Lavonne Bridges Attending Unavailable Navneet [facility], [facility] Primary Care Unavailabl e Navneet [facility], Sarah Referring Unavailabl e Navneet [facility], Sarah Primary Care Unavailabl e Jossue, Misbah Referring Unavailable Jossue, Misbah Attending Unavailable Navneet [facility], [facility] Primary Care Unavailabl e Lico Noel Attending Unavailable Navneet [facility], Sarah Referring Unavailabl [facility], [facility] Referring Unavailable [facility], [facility] Care Unavailable Jossue, Galva Attending Unavailable Navneet C, Sarah Attending Unavailabl e Navneet [facility], [facility] Primary Care Unavailabl e Navneet [facility], Sarah Attending Unavailabl e Navneet [facility], [facility] Primary Care Unavailabl e Taty Velasquez Admitting Unavailable Navneet C, [facility] Primary Care Unavailabl e Cesar Parekh Consulting Unavailable José Antonio Emerson Attending Unavailable AdeMerlyn laboy Consulting Unavailable Hinduja, Annita Consulting Unavailable Selwyn, Samra Consulting Unavailable Zha, Maude Consulting Unavailable Anthony, Ferdinand Consulting Unavailable Ronen, Tati Consulting Unavailable Sunny Connelly Consulting Unavailable Keila Chacon Consulting Unavailable Arturo Fuller Consulting Unavailable Sherley Rodriguez Consulting Unavailable Shaka Lerner Consulting Unavailable Mary Zuñiga Consulting Unavailable Serjio Nice Consulting Unavailable Isabela Alaniz Consulting Unavailabl e Dwight Taylor Consulting Unavailable Spangler, Rami Consulting Unavailable Modesto Clements Consulting Unavailable Zaria Esteban Consulting Unavailable Rand Chamberlain Consulting Unavailable Jossue, Misbah Consulting Unavailable Taty Velasquez Consulting Unavailable Navneet [facility], Sarah Primary Care Unavailabl e Navneet [facility]SC, Sarah Attending Unavailabl e Navneet [facility], Sarah Referring Unavailabl e Navneet [facility], [facility] Primary Care Unavailabl e Kaye Willoughby Attending Unavail able Navneet [facility], Sarah Referring Unavailabl e Navneet [facility], Sarah Primary Care Unavailabl e Jossue, Galva Attending Unavailable Taty Velasquez Admitting Unavailable Navneet [facility], [facility] Primary Care Unavailabl e Iglesia Cesar Consulting Unavailable José Antonio Emerson Attending Unavailable Adeli, Amir Consulting Unavailable Hinduja, Annita Consulting Unavailable Selwyn, Samra Consulting Unavailable Zha, Maude Consulting Unavailable Anthony, Ferdinand Consulting Unavailable Ronen, Tati Consulting Unavailable Bittar, Sunny Consulting Unavailable Keila Chacon Consulting Unavailable Jonny Arturo Consulting Unavailable Sherley Rodriguez Consulting Unavailable Shaka Lerner Consulting Unavailable Yogesh, Mary Consulting Unavailable Ridha, Mohamed Consulting Unavailable Zaghlouleh, Mhd Ant Consulting UnavailDwight Oliva Consulting Unavailable Spangler, Rami Consulting Unavailable Tyree, Modesto Consulting Unavailable Carlito, Zaria Consulting Unavailable Hannawi, Yousef Consulting Unavailable Jossue, Misbah Consulting Unavailable Taty Velasquez Consulting Unavailable Darioky, José Antonio Consulting Unavailable Taty Velasquez Attending Unavailable Taty Velasquez Admitting Unavailable [facility], [facility] Primary Care Unavailabl e Iglesia, Cesar Consulting Unavailable Adeli, Amir Consulting Unavailable Hinduja, Annita Consulting Unavailable Selwyn, Samra Consulting Unavailable Zha, Maude Consulting Unavailable Anthony, Ferdinand Consulting Unavailable Ronen, Tati Consulting Unavailable Bittar, Sunny Consulting Unavailable Oswaldo, Keila Consulting Unavailable Jonny, Arturo Consulting Unavailable BeLavell huertast Consulting Unavailable Shaka Lerner Consulting Unavailable Yogesh, Mary Consulting Unavailable Ridha, Mohamed Consulting Unavailable Zaghlouleh, Mhd Ant Consulting UnavailDwight Oliva Consulting Unavailable Spangler, Rami Consulting Unavailable Tyree, Modesto Consulting Unavailable Carlito, Zaria Consulting Unavailable Hannawi, Yousef Consulting Unavailable Jossue, Misbah Consulting Unavailable Taty Velasquez L Consulting Unavailable Jossue, Galva Attending Unavailable [facility], [facility] Primary Care Unavailable [facility] [place], [facility] Referring Unavailable Lico Noel Attending Unavailable Jossue, Galva Referring Unavailable [facility], [facility] Primary Care Unavailabl e Jossue, Misbah Attending Unavailable Jossue, Misbah Attending Unavailable [facility], [facility] Primary Care Unavailabl e [facility], [facility] Primary Care Unavailabl e Jossue, Misbah Referring Unavailable Josseu, Misbah Attending Unavailable Lavnone Bridges Attending Unavailable Navneet [facility], Sarah Referring Unavailabl e Navneet [facility], Sarah Primary Care Unavailabl e Navneet [facility], Sarah Primary Care Unavailabl e Jossue, Galva Attending Unavailable Jossue, Galva Referring Unavailable Jossue, Misbah Attending Unavailable Navneet [facility], Sarah Primary Care Unavailabl e Navneet [facility], Sarah Primary Care Unavailabl e Juventino Kern Attending Unavailable Navneet [facility], Sarah Attending Unavailabl e Navneet [facility], Sarah Primary Care Unavailabl e Navneet [facility], Sarah Referring Unavailabl e Lavonne Bridges Attending Unavailable Navneet [facility], Sarah Referring Unavailabl e Navneet [facility], Sarah Primary Care Unavailabl e [facility], [place] Referring Unavailable Navneet [facility], Sarah Primary Care Unavailabl e Lavonne Bridges Attending Unavailable Navneet [facility], Sarah Primary Care Unavailabl e Navneet [facility]SC, Sarah Referring Unavailabl e Jossue, Misbah Attending Unavailable Jossue, Misbah Attending Unavailable Navneet [facility], Sarah Primary Care Unavailabl e Navneet [facility], Sarah Referring Unavailabl e Erlin HASSAN, Dr. Jauregui Attending Provider Allergies Allergy Classification Reported Allergen(s) Allergy Type Date of Onset Reaction(s) Facility (20 sources) Contrast media; Translations: [RED DYE] drug allergy 5 Unknown [facility] Work Phone: (5 sources) Hmg-Coa Reductase Inhibitors (Statins) drug allergy 6 mylagias [facility] Work Phone: (5 sources) Hmg-Coa Reductase Inhibitors (Statins); Translations: [YCISZDN-MEZ-OCA REDUCTASE INHIBITORS] Propensity to adverse reactions (disorder) 8 Myalgia [facility] Repository (10 sources) Zllapfl-Tga-Gbg Reductase Inhibitor Propensity to adverse reactions 2 Myalgias [facility] (3 sources) semaglutide Drug Allergy 5 Vomiting [facility] (1 source) Mtavigl-Tmp-Cfv Reductase Inhibitor Drug allergy (disorder) 5 [facility] Repository (1 source) semaglutide Drug allergy (disorder) 5 [facility] Repository Medications Current Medications Medication Drug Class(es) Dates Sig (Normalized) Sig (Original) amLODIPine 10 mg oral tablet (20 sources) Dihydropyridine Calcium Channel Matthew Start: 11-30-2024 take 1 tablet by mouth once daily Amlodipine 10 mg tablet Active 10 mg PO DAILY November 30, 2024 12:00am Start: 08-16-2020 End: 11-30-2024 take 1 tablet by mouth once daily Amlodipine 5 mg tablet Discontinued 5 mg PO DAILY February 17, 2024 12:00am November 30, 2024 11:44am blood pressure Start: 06-17-2019 End: 07-23-2020 take 1 tablet by mouth once daily Amlodipine 5 mg tablet Discontinued 5 mg PO DAILY 09 06June 17, 2019 9:56am July 23, 2020 2:10pm Comment on above: Take 5 mg by mouth o nce daily. aspirin 81 mg delayed release oral tablet (20 sources) Nonsteroidal Anti-inflammatory Drug Start: 06-10-2015 take 1 tablet by mouth once daily ASPIRIN 81 MG TABS One tablet by mouth daily ASPIRIN [id number] Kaye Burris PA-C Start: 06-10-2015 take 1 tablet by margaret th once daily ASPIRIN 81 MG TABS One tablet by mouth daily ASPIRIN [id number] Kaye Burris PA-C Start: 05-27-2015 End: 01-26-2017 take 1 tablet by mouth once daily Aspirin 81 MG tablet Active 81 mg PO DAILY@0800 January 26, 2017 2:58pm HEALTH MAINTENANCE Comment on above: Take 81 mg by mouth once daily. benoxinate hydrochloride 4 mg/ml / fluorescein sodium 3 mg/ml ophthalmic solution (2 sources) Diagnostic Dye Start: 4 End: 4 fluorescein-benoxi leslie 0.3-0.4 % 1 Drop (FLURESS) carvedilol 25 mg oral tablet (20 sources) alpha-Adrenergic Matthew, beta-Adrenergic Matthew Start: 5 take 1 tablet by mouth once daily at mealtime Carvedilol 25 mg tablet Active 25 mg PO DAILY November 30, 2024 12:00am must administer with a meal/food Start: 11-01-2022 End: 11-30-2024 take 1 tablet by mouth twice daily at mealtime Carvedilol 25 mg tablet Discontinued 25 mg PO TWICE A DAY 180 3 December 31, 2023 10:43am November 30, 2024 1:59pm must administer with a meal/food Start: 01-12-2016 [...] 26, 2017 2:58pm November 01, 2022 1:05pm BLOOD PRESSURE/HEART Start: 06-10-2015 take 1 tablet by margaret twice daily COREG 6.25 MG TABS One tablet by mouth twice daily CARVEDILOL [id number] Kaye Burris PA-C Start: 06-10-2015 take 1 tablet by margaret twice daily COREG 25 MG TABS One tablet by mouth twice daily CARVEDILOL [id number] Kaye Burris PA-C Start: 06-10-2015 take 2 tablets by mo [facility] twice daily COREG 25 MG TABS Two tablets by mouth twice daily CARVEDILOL [id number] Grace Horan RN Start: 05-27-2015 End: 01-12-2016 take 1 tablet by mouth twice daily Carvedilol 3.125 MG tablet Discontinued 3.125 mg PO TWICE A DAY 60 0 May 27, 2015 1:00am January 12, 2016 5:03pm Comment on above: Take 1 tablet by margaret th twice daily. cholecalciferol 1.25 mg oral capsule (18 sources) Vitamin D Start: 12-01-19 take 1 capsule by mouth every week Cholecalciferol (Vitamin D3) 1,250 mcg (50,000 unit) capsule Active 1250 ug PO EVERY WEEK November 30, 2024 12:00am Start: 08-16-2020 take 1 capsule by [facility] every week cholecalciferol, Vitamin D3, (VITAMIN D3) 1,250 mcg (50,000 unit) cap capsule Take 1 capsule by mouth one time a week. 0 08/16/2020 Active Start: 01-26-2017 End: 11-30-2024 Cholecalciferol (Vitamin D3) 2,000 UNIT capsule Discontinued 2000 U PO PAYNE January 26, 2017 12:00am November 30, 2024 11:44am SUPPLEMENT Cholecalciferol, Vitamin D3, (VITAMIN D) 1,000 unit cap Take 5,000 Units by mouth once daily. 0 Active Comment on above: Take 5,000 Units by mouth once daily. Take [address] [facility] one time a week. CPAP (3 sources) CPAP cyclobenzaprine hydrochloride 10 mg oral tablet (20 sources) Muscle Relaxant Start: 04-16-20 24 take 1 tablet by mouth three times daily as needed for muscle spasms Cyclobenzaprine 10 mg tablet Active 10 mg PO THREE TIMES A DAY as needed for Muscle Spasm April 16, 2024 2:33pm Start: 09-26-2023 take 1 tablet by [facility] twice daily as needed for pain cyclobenzaprine (FLEXERIL) 10 mg tablet TAKE 1 TABLET BY MOUTH TWICE DAILY NEEDED FOR MUSCLE PAIN 0 09/26/2023 Active Start: 09-13-2023 End: 04-16-2024 take 5 mg by mouth three times daily as needed for muscle spasms Cyclobenzaprine 10 mg tablet Discontinued 5 mg PO THREE TIMES A DAY as needed for Muscle Spasm 20 0 September 13, 2023 12:00am April 16, 2024 2:36pm Start: 09-13-2023 take 5 mg by mouth [...] 10 MG TABS As needed CYCLOBENZAPRINE HCL [id number] Kaye Pierson RN dapagliflozin 10 mg oral tablet (13 sources) Sodium-Glucose Cotransporter 2 Inhibitor Start: 11-30-2024 take 1 tablet by mouth once daily Dapagliflozin Propanediol (Dapagliflozin Propanediol 10 Mg Tablet) 10 mg tablet Active 10 mg PO DAILY November 30, 2024 12:00am Start: 02-17-2024 End: 10-23-2024 take 1 tablet by mouth once daily Dapagliflozin Propanediol (Farxiga) 10 mg tablet Discontinued 10 mg PO DAILY March 13, 2024 11:22am October 23, 2024 1:59pm HF Start: 09-07-2021 take 1 tablet by margaret th once daily FARXIGA 10 mg tablet Take 10 mg by mouth once daily. 0 09/07/2021 Active Comment on above: Take 10 mg by mouth once daily. diphenhydrAMINE hydrochloride 25 mg / naproxen sodium 220 mg oral tablet (3 sources) Histamine-1 Receptor Antagonist, Nonsteroidal Anti-inflammatory Drug naproxen-diphenhyd ramine (ALEVE PM) 220-25 mg tab Take by mouth. 0 Active Comment on above: Take by mouth. gabapentin 300 mg oral capsule (20 sources) Anti-epileptic Agent Start: 12-01-19 take 2 capsules by mouth at bedtime Gabapentin 300 mg capsule Active 600 mg PO AT BEDTIME November 30, 2024 12:00am Start: 10-23-2024 take 1 capsule by mo [facility] once daily Gabapentin 300 mg capsule Active 300 mg PO DAILY October 23, 2024 1:58pm NERVE PAIN AM Start: 10-23-2024 take 1 capsule by mo [facility] three times daily Gabapentin 300 mg capsule [...] 12, 2016 12:00am October 23, 2024 2:00pm NERVE PAIN Start: 10-22-2015 take 1 tablet by margaret once daily at bedtime GABAPENTIN 300 MG CAPS One tablet by mouth daily at bedtime [facility] [id number] Kristen Sandy RN Comment on above: Take 300 mg by mouth once daily. 3 ml insulin degludec 100 unt/ml pen injector (5 sources) Insulin Analog Start: inject 15 [IU] by subcutaneous injection once daily TRESIBA FLEXTOUCH U-100 100 unit/mL (3 mL) injection pen INJECT 15 UNITS SUBCUTANEOUSLY ONCE DAILY 0 10/21/2023 Active Start: 10-04-2023 End: 12-31-2023 Insulin Degludec (Tresiba Fl extouch U-100) 100 unit/mL (3 mL) insulin pen Discontinued 15 U SC DAILY 15 2 October 04, 2023 12:00am December 31, 2023 10:42am Insulin Degludec (Tresiba Flextouch U-100) 100 unit/mL (3 mL) insulin pen (16 sources) Start: 11-30-2024 Insulin Deglud ec (Tresiba Flextouch U-100) 100 unit/mL (3 mL) insulin pen Active 18 U SC Q24H November 30, 2024 12:00am diabetes Start: 11-30-2024 Insulin Deglud ec (Tresiba Flextouch U-100) 100 unit/mL (3 mL) insulin pen Active 18 U SC Q24H November 30, 2024 12:00am Start: 11-26-2024 End: 11-30-2024 Insulin Degludec (Tresiba Fl extouch U-100) 100 unit/mL (3 mL) insulin pen Discontinued 18 U SC .hs 16.2 1 November 26, 2024 12:34pm November 30, 2024 1:59pm Type 2 diabetes mellitus Type 2 diabetes mellitus with diabetic chronic kidney disease diabetes Start: 11-26-2024 End: 11-30-2024 Insulin Degludec (Tresiba Fl extouch U-100) 100 unit/mL (3 mL) insulin pen Discontinued 18 U SC .hs 16.2 November 26, 2024 12:34pm November 30, 2024 1:59pm Start: 04-21-2024 End: 11-26-2024 Insulin Degludec (Tresiba Fl extouch U-100) 100 unit/mL (3 mL) insulin pen Discontinued 18 U SC .hs 16.2 1 April 21, 2024 9:11am November 26, 2024 12:34pm Type 2 diabetes mellitus Type 2 diabetes mellitus with diabetic chronic kidney disease diabetes Start: 04-21-2024 End: 11-26-2024 Insulin Degludec (Tresiba Fl extouch U-100) 100 unit/mL (3 mL) insulin pen Discontinued 18 U SC .hs 16.2 April 21, 2024 9:11am November 26, 2024 12:34pm Start: 04-21-2024 Insulin Deglud ec (Tresiba Flextouch U-100) 100 unit/mL (3 mL) insulin pen Active 18 U SC .hs 16.2 April 21, 2024 9:11am Start: 02-18-2024 End: 04-21-2024 Insulin Degludec (Tresiba Fl extouch U-100) 100 unit/mL (3 mL) insulin pen Discontinued 18 U SC . February 18, 2024 12:00am April 21, 2024 9:12am diabetes Start: 02-18-2024 End: 04-21-2024 Insulin Degludec (Tresiba [...] 12, 2022 4:25pm December 28, 2022 9:16am Diabetes Start: 08-17-2020 End: 01-12-2022 inject 45 [IU] [...] 27, 2019 12:00am July 23, 2020 2:11pm Diabetes Start: 10-27-2019 End: 07-23-2020 Insulin Detemir U-100 [...] 12, 2016 5:03pm October 01, 2017 10:29am DIABETES Start: 01-12-2016 End: 10-01-2017 Insulin Detemir U-100 Discon tinued 38 UNITS SC TWICE A DAY January 12, 2016 5:03pm October 01, 2017 10:29am Start: 10-25-2015 LEVEMIR FLEXTO UCH 100 unit/mL (3 mL) inpn injection Inject 38 Units subcutaneously twice daily. 60u in AM and 55u in PM 0 10/25/2015 Active Start: 10-22-2015 LEVEMIR 100 UN IT/ML SOLN Take as directed INSULIN DETEMIR [id number] Stewart Boggs MD Start: 10-22-2015 LEVEMIR 100 UN IT/ML SOLN Take as directed INSULIN DETEMIR [id number] Stewart Boggs MD Start: 10-22-2015 LEVEMIR 100 UN IT/ML SOLN Take as directed INSULIN DETEMIR [id number] Stewart Boggs MD Start: 10-22-2015 LEVEMIR 100 UN IT/ML SOLN Take as directed INSULIN DETEMIR [id number] Stewart Boggs MD Start: 05-27-2015 End: 01-12-2016 Insulin Detemir U-100 (Levem ir Flextouch U100 Insulin) 100 UNITS/ML Insuln.Pen Discontinued 32 U SC TWICE A DAY 1 May 27, 2015 1:00am January 12, 2016 5:03pm Start: 05-27-2015 End: 01-12-2016 Insulin Detemir U-100 (Levem ir Flextouch U-100 Insuln) 100 UNITS/ML Insuln.Pen Discontinued 32 UNITS SC TWICE A DAY 1 May 27, 2015 1:00am January 12, 2016 5:03pm Comment on above: Inject 38 Units subc utaneously twice daily. 60u in AM and 55u in PM 3 ml insulin lispro 100 unt/ml pen injector (2 sources) Insulin Analog Start: Insulin Lispro (Humalog Kwikpen Insulin) 100 unit/mL insulin pen Active 15 U SC THREE TIMES A DAY 54 2 October 31, 2024 12:00am liraglutide (3 sources) GLP-1 Receptor Agonist liragluti de (VICTOZA 2-ARIANNE SUBCUTANEOUS) Indications: Choroidal nevus of left eye Inject subcutaneously. 0 Active Comment on above: Inject subcutaneousl y. magnesium chloride 598 mg delayed release oral tablet (20 sources) Start: 7 End: 1 take 1 tablet by mouth once daily Magnesium Chloride (Slow-Mag) 71.5 mg tablet,delayed release (DR/EC) Active 71.5 mg PO DAILY July 23, 2020 1:00am suppliment Start: 05-27-2015 End: 01-26-2017 take 1 tablet by mouth once daily Magnesium Chloride (Slow-Mag) 71.5 MG Tablet.Dr Discontinued 71.5 mg PO DAILY 30 0 May 27, 2015 1:00am January 26, 2017 2:58pm Comment on above: Take 1 tablet by margaret once daily. meclizine hydrochloride 25 mg oral tablet (13 sources) Antiemetic Start: 07-23-19 21 take 1 tablet by mouth three times daily as needed for dizziness Meclizine 25 mg tablet Active 25 mg PO THREE TIMES A DAY as needed for dizziness July 23, 2020 1:00am Comment on above: Take 25 mg by mouth three times daily. OZEMPIC 2 mg/dose (8 mg/3 mL) pen injector (1 source) Start: 05-17-20 23 OZEMPIC 2 mg/dose (8 mg/3 mL) pen injector phenylephrine hydrochloride 25 mg/ml ophthalmic solution (2 sources) alpha-1 Adrenergic Agonist Start: 11-27-19 24 End: 11-28-19 24 PHENYLephrine 2.5 % 1 Drop (AK-DILATE, JOVON-SYNEPHRINE) Tirzepatide (Mounjaro) 2.5 mg/0.5 mL pen injector (2 sources) Start: 11-28-19 Tirzepatide (Mounjaro) 2.5 mg/0.5 mL pen injector Active 2.5 mg SC EVERY WEEK 2 November 27, 2024 12:00am Type 2 diabetes mellitus Type 2 diabetes mellitus with diabetic chronic kidney disease Start: 11-27-2024 Tirzepatide (M ounjaro) 2.5 mg/0.5 mL pen injector Active 2.5 mg SC EVERY WEEK 2 November 27, 2024 12:00am tropicamide 10 mg/ml ophthalmic solution (2 sources) Anticholinergic Start: 11-27-2023 End: 11-28-2023 tropicamide 1 % 1 Drop (MYDRIACYL) Completed/Discontinued Medications Medication Drug Class(es) Dates Sig (Normalized) Sig (Original) acetaminophen 325 mg / HYDROcodone bitartrate 5 mg oral tablet (15 sources) Opioid Agonist Start: 09-13-2023 End: 02-18-2024 Hydrocodone-Acetami nophen 5-325 mg tablet Discontinued 1 {tbl} PO EVERY 6 HOURS NEEDED as needed for Pain 10 3 0 September 13, 2023 February 18, 2024 12:53pm Acute chest wall pain Other chest pain Start: 09-13-2023 take 1 tablet by margaret th every six hours as needed Hydrocodone-Acetaminophen Active 1 TABLE T PO EVERY 6 HOURS NEEDED 10 3 September 13, 2023 Start: 07-20-2017 End: 10-01-2017 Hydrocodone-Acetaminophen 1 TABLET tablet Discontinued 1 - 2 {tbl} PO EVERY 4 HOURS NEEDED as needed for Pain 12 3 0 July 20, 2017 1:00am October 01, 2017 10:27am Muscle spasm Other muscle spasm Start: 07-20-2017 End: 10-01-2017 take 1 tablet by mouth every four hours as needed Hydrocodone-Acetaminophen Discontinued 1 - 2 TABLET PO EVERY 4 HOURS NEEDED 12 3 July 20, 2017 1:00am October 01, 2017 10:27am atorvastatin 40 mg oral tablet (5 sources) HMG-CoA Reductase Inhibitor Start: 06-10-2015 take 1 tablet by mouth once daily ATORVASTATIN CALCIUM 40 MG TABS One tablet by mouth daily ATORVASTATIN CALCIUM [id number] Kaye Burris PA-C 24 hr buPROPion hydrochloride 150 mg extended release oral tablet (13 sources) Aminoketone Start: 07-23-2020 End: 12-31-2023 take 1 tablet by mouth once daily in the morning Bupropion Hcl 150 mg tablet extended release 24 hr Discontinued 150 mg PO EVERY MORNING July 23, 2020 1:00am December 31, 2023 10:39am Comment on above: Take 150 mg by mouth every morning. busPIRone hydrochloride 7.5 mg oral tablet (4 sources) Start: 03-13-2024 End: 11-30-2024 take 1 tablet by mouth twice daily Buspirone 7.5 mg tablet Discontinued 7.5 mg PO TWICE A DAY March 13, 2024 12:00am November 30, 2024 1:59pm calcium carbonate 298 mg / magnesium chloride 596 mg delayed release oral tablet (5 sources) Start: 01-17-2016 take 1 tablet by mouth once daily SLOW-MAG 71.5-119 MG TBEC One tablet by mouth daily MAGNESIUM CL-CALCIUM CARBONATE [id number] Kristen Sandy RN Start: 01-17-2016 take 1 tablet by margaret th once daily SLOW-MAG 71.5-119 MG TBEC One tablet by mouth daily MAGNESIUM CL-CALCIUM CARBONATE [id number] Kristen Sandy RN cetirizine hydrochloride 10 mg oral tablet (20 sources) Histamine-1 Receptor Antagonist Start: 07-23-2020 End: 11-30-2024 take 1 tablet by mouth once daily as needed Cetirizine (Zyrtec) 10 mg tablet Discontinued 10 mg PO DAILY as needed for Allergies July 23, 2020 2:05pm November 30, 2024 1:59pm Start: 11-01-2018 End: 07-23-2020 take 5 mg by mouth once daily as needed Cetirizine (Zyrtec) 10 mg tablet Discontinued 5 mg PO DAILY as needed for Allergies November 01, 2018 12:00am July 23, 2020 2:11pm Comment on above: Take 10 mg by mouth once daily. colestipol hydrochloride 1000 mg oral tablet (20 sources) Bile Acid Sequestrant Start: End: take 2 g by mouth twice daily Colestipol Discontinued 2 GM PO TWICE A DAY 60 July 23, 2020 2:35pm January 20, 2021 10:58am Start: 02-29-2016 End: 01-20-2021 take 1 tablet by mouth twice daily Colestipol 1 GM tablet Discontinued 1 g PO TWICE A DAY June 19, 2016 1:00am July 23, 2020 2:41pm CHOLESTEROL Start: 02-29-2016 take 1 tablet by margaret th twice daily COLESTID 1 GM TABS One tablet by mouth twice daily COLESTIPOL HCL [id number] Kaye Burris PA-C Comment on above: Take 1 g by mouth tw ice daily. diphenhydrAMINE hydrochloride 25 mg oral capsule (10 sources) Histamine-1 Receptor Antagonist Start: 018 End: [...] 1:56pm docusate sodium 100 mg oral capsule (20 sources) Start: 03-20-2018 End: 05-30-2019 take 1 [...] 23, 2024 12:00am October 23, 2024 3:06pm Type 2 diabetes mellitus Type 2 diabetes mellitus with diabetic chronic kidney disease Start: 10-23-2024 End: 10-23-2024 Dulaglutide (Trulicity) 3 mg /0.5 mL pen injector Discontinued 3 mg SC EVERY WEEK 2 October 23, 2024 12:00am October 23, 2024 3:06pm Start: 08-14-2024 End: 10-23-2024 Dulaglutide (Trulicity) 1.5 mg/0.5 mL pen injector Discontinued 1.5 mg SC EVERY WEEK 2 August 14, 2024 1:00am October 23, 2024 2:35pm Type 2 diabetes mellitus Type 2 diabetes mellitus with diabetic chronic kidney disease Start: 04-21-2024 End: 08-14-2024 Dulaglutide (Trulicity) 0.75 mg/0.5 mL pen injector Discontinued 0.75 mg SC EVERY WEEK 2 April 21, 2024 1:00am August 14, 2024 5:06pm Type 2 diabetes mellitus Type 2 diabetes mellitus with diabetic chronic kidney disease Start: 08-16-2020 End: 01-12-2022 Dulaglutide 0.75 mg/0.5 mL p en injector Discontinued 0.75 mg SC EVERY WEEK January 20, 2021 10:19am January 12, 2022 4:24pm Comment on above: Inject 0.75 mg subcu taneously one time a week. enalapril maleate 10 mg oral tablet (17 sources) Angiotensin Converting Enzyme Inhibitor Start: take 1 tablet by mouth twice daily ENALAPRIL MALEATE 10 MG TABS One tablet by mouth twice daily ENALAPRIL MALEATE [id number] Kaye Pierson RN Start: 06-10-2015 End: 03-12-2017 take 1 tablet by mouth once daily ENALAPRIL MALEATE 10 MG TABS One tablet by mouth daily (STOP) ENALAPRIL MALEATE [id number] Stewart Boggs MD ezetimibe 10 mg oral tablet (20 sources) Dietary Cholesterol Absorption Inhibitor Start: 01-20-2021 End: 11-30-2024 take 1 tablet by mouth once daily Ezetimibe (Zetia) 10 mg tablet Discontinued 10 mg PO DAILY 90 3 November 17, 2024 1:17pm November 30, 2024 1:56pm cholesterol FLUoxetine 40 mg oral capsule (20 sources) Serotonin Reuptake Inhibitor Start: 11-30-2024 End: 12-25-2024 take 1 capsule by mouth once daily Fluoxetine 40 mg capsule Discontinued 40 mg PO DAILY November 30, 2024 12:00am December 25, 2024 2:42pm Start: 11-01-2018 End: 04-16-2024 take 1 capsule by mouth once daily Fluoxetine (Prozac) 40 mg capsule Discontinued 40 mg PO DAILY November 01, 2018 12:00am April 16, 2024 2:34pm depression Start: 11-01-2017 take 1 capsule by [facility] once daily FLUoxetine (PROZAC) 20 mg capsule [...] oral tablet (20 sources) Loop Diuretic Start: 11-01-2022 End: 12-31-2023 Furosemide 40 mg tablet Discontinued 40 mg PO WITH BREAKFAST 90 February 01, 2023 9:38am December 31, 2023 10:24am Pt takes 20 mg tablet at lunchtime Start: 04-30-2020 End: 12-31-2023 take 1 tablet by mouth at breakfast Furosemide 40 MG tablet Discontinued 40 mg PO WITH BREAKFAST April 30, 2020 1:00am November 01, 2022 1:04pm Start: 07-13-2017 End: 10-01-2017 take 1 tablet by mouth twice daily Furosemide 40 MG tablet Discontinued 40 mg PO TWICE A DAY July 13, 2017 10:59am October 01, 2017 10:29am DIURETIC/WATER PILL Start: 02-29-2016 End: 11-17-2024 take 1 tablet by mouth once daily, then take 2 tablets by mouth once daily in the morning Furosemide 20 mg tablet Discontinued 20 mg PO .COMPLEX 90 November 01, 2022 1:04pm February 01, 2023 9:38am water pill 20 mg orally daily at lunchtime (takes a 40 mg tablet every morning); Start: 01-17-2016 End: 01-26-2016 take 1 tablet by mouth once daily LASIX 20 MG TABS One tablet by mouth daily FUROSEMIDE [id number] Kaye Pierson RN Start: 01-13-2016 End: 06-19-2016 Furosemide 40 MG tablet Discontinued 20 mg PO DAILY as needed for Swelling 30 0 January 13, 2016 10:45am June 19, 2016 2:17pm Start: 01-13-2016 End: 06-19-2016 take 20 mg by mouth once daily Furosemide Discontinued 20 MG PO DAILY January 13, 2016 10:45am June 19, 2016 2:17pm Start: 01-13-2016 End: 01-13-2016 Furosemide 40 MG tablet Discontinued 25 mg PO DAILY as needed for Swelling 30 0 January 13, 2016 10:45am January 13, 2016 10:45am Start: 01-13-2016 End: 01-13-2016 take 25 mg by mouth once daily Furosemide Discontinued 25 MG PO DAILY January 13, 2016 10:45am January 13, 2016 10:45am Start: 06-10-2015 End: 12-27-2015 take 1 tablet by mouth twice daily LASIX 40 MG TABS One tablet by mouth twice daily FUROSEMIDE [id number] Grace Horan RN Start: 05-27-2015 End: 11-01-2018 take 1 tablet by mouth once daily Furosemide 40 mg tablet Discontinued 40 mg PO daily October 01, 2017 10:26am November 01, 2018 9:37am DIURETIC/WATER PILL Comment on above: Take 1 tablet by margaret th once daily. Take 20 mg by mouth once daily. glipiZIDE 5 mg oral tablet (6 sources) Sulfonylurea Start: 4 End: take 1 tablet by mouth once daily Glipizide 5 mg tablet Discontinued 5 mg PO DAILY July 04, 2023 1:00am October 23, 2024 2:36pm DM glucose 0.4 mg/mg oral gel (5 sources) Start: 6 GLUCOSE 40 % GEL as needed DEXTROSE (DIABETIC USE) [id number] Kristen Sandy RN Handicap Parking Placard (20 sources) Start: 2 End: 2 Handicap Parking Placard Discontinued 0 .Route .MEDSUPPLY 1 0 May 09, 2022 3:48pm May 09, 2022 4:02pm LIFETIME: Renew 05/01/2027 As directed Start: 05-09-2022 End: 05-09-2022 Handicap Parking Placard Dis continued 0 .Route .MEDSUPPLY 1 May 09, 2022 3:48pm May 09, 2022 4:02pm As directed Start: 05-09-2022 End: 05-09-2022 Handicap Parking Placard Dis continued 0 .Route .MEDSUPPLY 1 May 09, 2022 2:48pm May 09, 2022 3:02pm As directed Start: 05-09-2022 End: 05-09-2022 Handicap Parking Placard Dis continued 0 .Route .MEDSUPPLY 1 0 May 09, 2022 3:47pm May 09, 2022 3:48pm LIFETIME: Renew 05/01/2027 As directed Start: 05-09-2022 End: 05-09-2022 Handicap Parking Placard Dis continued 0 .Route .MEDSUPPLY 1 May 09, 2022 3:47pm May 09, 2022 3:48pm As directed Start: 05-09-2022 End: 05-09-2022 Handicap Parking Placard Dis continued 0 .Route .MEDSUPPLY 1 May 09, 2022 2:47pm May 09, 2022 2:48pm As directed Start: 05-09-2022 Handicap Parki ng Placard Active 0 .Route .MEDSUPPLY 1 0 May 09, 2022 1:00am Lifetime, renew 05/09/2027 As directed Start: 05-09-2022 Handicap Parki ng Placard Active 0 .Route .MEDSUPPLY 1 May 09, 2022 1:00am As directed Start: 05-09-2022 Handicap Parki ng Placard Active 0 .Route .MEDSUPPLY 1 May 09, 2022 12:00am As directed Start: 05-01-2022 End: 05-09-2022 Handicap Parking Placard Dis continued 0 .Route .MEDSUPPLY 1 0 May 01, 2022 1:00am May 09, 2022 3:47pm LIFETIME: Renew 05/01/2027 As directed Start: 05-01-2022 End: 05-09-2022 Handicap Parking Placard Dis continued 0 .Route .MEDSUPPLY May 01, 2022 1:00am May 09, 2022 3:47pm As directed Start: 05-01-2022 End: 05-09-2022 Handicap Parking Placard Dis continued 0 .Route .MEDSUPPLY May 01, 2022 12:00am May 09, 2022 2:47pm As directed HANDICAP [place] (2 sources) Start: 03-12-[address] Lifetime duration DX: Cardiomyopathy HANDICAP [place] Kaye Burris PA-C Insulin Detemir U-100 100 unit/mL (3 mL) insulin pen (8 sources) Start: 07-02-2023 End: 10-04-2023 Insulin Detemir U-100 100 un it/mL (3 mL) insulin pen Discontinued 30 U SC .morning July 02, 2023 11:12am October 04, 2023 1:51pm Start: 02-01-2023 End: 07-02-2023 Insulin Detemir U-100 100 un it/mL (3 mL) insulin pen Discontinued 50 U SC .morning February 01, 2023 9:34am July 02, 2023 11:12am 3 ml insulin aspart, human 100 unt/ml pen injector (20 sources) Insulin Analogue Start: 04-21-2024 End: 10-31-2024 Insulin Aspart U-100 (Novolog Flexpen U-100 Insulin) 100 unit/mL (3 mL) insulin pen Discontinued 15 U SC THREE TIMES A DAY 40.5 1 August 25, 2024 7:51am October 31, 2024 9:26am Type 2 diabetes mellitus Type 2 diabetes mellitus with diabetic chronic kidney disease diabetes Start: 02-18-2024 End: 04-21-2024 Insulin Aspart U-100 (Novolo g Flexpen U-100 Insulin) 100 unit/mL (3 mL) insulin pen Discontinued 9 U SC .breakfast and lunch February 18, 2024 12:00am April 21, 2024 9:12am diabetes Start: 12-31-2023 End: 11-30-2024 inject 12 [IU] by subcutaneous injection before dinner Insulin Aspart U-100 100 unit/mL (3 mL) insulin pen Discontinued 12 U SC 1700 December 31, 2023 10:40am November 30, 2024 1:52pm Diabetes 12 units subcutaneously before dinner meal Start: [...] 02, 2023 11:12am December 31, 2023 10:42am Diabetes 8u before meals Start: 01-12-2022 End: 12-28-2022 Insulin Aspart U-100 100 uni t/mL (3 mL) insulin pen Discontinued 2 U SC .COMPLEX January 12, 2022 4:26pm December 28, 2022 9:17am Diabetes 2 units subcutaneously 8 units in AM, 10 units lunch, 12 dinner; Start: 10-26-2019 End: 01-12-2022 Insulin Aspart U-100 100 uni t/mL (3 mL) insulin pen Discontinued 2 U SC .COMPLEX July 23, 2020 2:09pm January 12, 2022 4:28pm Diabetes 2 in AM, 3 in afternoon, 4 in pm Start: 10-26-2019 End: 07-23-2020 Insulin Aspart U-100 100 UNI TS/ML insulin pen Discontinued 2 U SC .COMPLEX October 26, 2019 12:00am July 23, 2020 2:11pm Diabetes 2 in AM, 3 in afternoon, 4 in pm Start: 06-10-2015 NOVOLOG FLEXPE N 100 UNIT/ML SOLN as directed INSULIN ASPART Kaye Burris PA-C Start: 06-10-2015 NOVOLOG FLEXPE N 100 UNIT/ML SOLN as directed INSULIN ASPART Kaye Burris PA-C Start: 05-27-2015 End: 01-12-2016 Insulin Aspart U-100 (Novolo g Flexpen U-100 Insulin) 100 UNITS/ML Flexpen Discontinued 15 U SC THREE TIMES DAILY BEFORE MEALS 1 May 27, 2015 1:00am January 12, 2016 5:03pm lisinopril 5 mg oral tablet (20 sources) [...] Start: 06-10-2015 take 2 tablets by mo uth once daily LISINOPRIL 5 MG TABS Two tablets by mouth daily LISINOPRIL [id number] Stewart Boggs MD Start: 06-10-2015 take 1 tablet by margaret th once daily LISINOPRIL 10 MG TABS One tablet by mouth daily LISINOPRIL [id number] Kristen Sandy RN Start: 06-10-2015 take 1 tablet by margaret th once daily LISINOPRIL 20 MG TABS One tablet by mouth daily LISINOPRIL [id number] Kaye Burris PA-C Start: 05-27-2015 End: 01-12-2016 take 1 tablet by mouth once daily Lisinopril 5 MG tablet Discontinued 5 mg PO DAILY 30 0 May 27, 2015 1:00am January 12, 2016 [...] 19, 2016 2:17pm July 13, 2017 11:01am DIABETES Start: 06-19-2016 End: 07-13-2017 take 1000 mg by mouth twice daily at mealtime Metformin Discontinued 1000 MG PO TWICE DAILY WITH MEALS June 19, 2016 2:17pm July 13, 2017 11:01am Start: 06-10-2015 End: 01-12-2022 take 1 tablet by mouth twice daily Metformin 1,000 mg tablet Discontinued 1000 mg PO TWICE A DAY November 01, 2018 9:36am January 12, 2022 4:27pm Diabetes Start: 05-20-2015 End: 06-19-2016 take 1 tablet by mouth twice daily at mealtime Metformin 500 MG tablet Discontinued 500 mg PO TWICE DAILY WITH MEALS 60 0 May 27, 2015 12:51pm June 19, 2016 2:17pm Comment on above: Take 1,000 mg by margaret twice daily with meals. naproxen sodium 220 mg oral tablet (10 sources) Nonsteroidal Anti-inflammatory Drug Start: 5 End: 5 take 2 tablets by mouth twice daily Naproxen Sodium (Aleve) 220 MG tablet Discontinued 440 mg PO TWICE A DAY May 23, 2015 1:00am May 27, 2015 12:51pm omeprazole 20 mg delayed release oral tablet (19 sources) Proton Pump Inhibitor Start: 4 End: 5 take 2 tablets by mouth once daily Omeprazole 20 mg tablet,delayed release (DR/EC) Discontinued 40 mg PO DAILY July 02, 2023 11:16am November 30, 2024 1:56pm GERD Start: 07-02-2023 take 40 mg by mouth once daily Omeprazole Active 40 MG PO DAILY July 02, 2023 11:16am Start: 08-16-2020 take 1 capsule by mo [facility] once daily omeprazole (PRILOSEC) 20 mg capsule Take 20 mg by mouth once daily. 0 08/16/2020 Active Start: 07-23-2020 End: 07-02-2023 take 1 tablet by mouth once daily Omeprazole 20 mg tablet,delayed release (DR/EC) Discontinued 20 mg PO DAILY July 23, 2020 1:00am July 02, 2023 11:16am Comment on above: Take 20 mg by mouth once daily. ondansetron 4 mg disintegrating oral tablet (11 sources) Serotonin-3 Receptor Antagonist Start: 06-01-20 End: 12-01-19 take 1 tablet by mouth every six hours as needed for nausea and vomiting Ondansetron 4 mg tablet,disintegratin g Discontinued 4 mg PO EVERY 6 HOURS as needed for nausea and vomiting 7 0 June 01, 2022 1:00am November 30, 2024 1:56pm pantoprazole 40 mg delayed release oral tablet (20 sources) Proton Pump Inhibitor Start: 10-27-19 End: 07-23-19 21 take 1 tablet by mouth once daily Pantoprazole 40 MG tablet Discontinued 40 mg PO DAILY 30 3 November 10, 2019 12:00am July 23, 2020 2:10pm potassium chloride 10 meq extended release oral tablet (10 sources) Start: 06-10-20 15 End: 01-19-20 16 take 1 tablet by mouth once daily POTASSIUM CHLORIDE ER 10 MEQ CR-TABS One tablet by mouth daily POTASSIUM CHLORIDE [id number] PALMIRA McdonaldC pravastatin sodium 20 mg oral tablet (10 sources) HMG-CoA Reductase Inhibitor Start: 01-26-20 16 End: 02-29-20 16 take 1 tablet by mouth at bedtime PRAVACHOL 20 MG TABS One tablet by mouth at bedtime. PRAVASTATIN SODIUM [id number] Kaye Pierson RN sacubitril 97 mg / valsartan 103 mg oral tablet (20 sources) Angiotensin 2 Receptor Matthew Start: 01-21-20 End: 11-05-19 Sacubitril-Valsartan (Entresto) 97-103 mg tablet Discontinued 1 {tbl} PO TWICE A DAY 180 3 September 22, 2024 9:14am November 04, 2024 8:36am HF Start: 08-05-2020 End: 08-05-2020 Sacubitril-Valsartan (Entres to) [...] 26, 2017 12:00am August 05, 2020 6:09pm BLOOD PRESSURE Start: 08-23-2016 take 1 tablet by margaret th twice daily ENTRESTO 49-51 MG TABS One tablet by mouth twice daily SACUBITRIL-VALSARTAN [id number] Stewart Boggs MD Start: 08-23-2016 take 1 tablet by margaret th twice daily ENTRESTO 49-51 MG TABS One tablet by mouth twice daily SACUBITRIL-VALSARTAN [id number] Stewart Boggs MD Comment on above: 1 tablet twice daily . Semaglutide (15 sources) Start: 02-18-2024 End: 04-16-2024 Semaglutide (Ozempic) 1 mg/dose (4 mg/3 mL) pen injector Discontinued 1 mg SC .weekly February 18, 2024 12:00am April 16, 2024 2:36pm diabetes Start: 02-18-2024 End: 04-16-2024 Semaglutide (Ozempic) 1 mg/d ose (4 mg/3 mL) pen injector Discontinued 1 mg SC .weekly February 18, 2024 12:00am April 16, 2024 2:36pm Start: 10-03-2023 End: 01-17-2024 Semaglutide (Ozempic) 1 mg/d ose (4 mg/3 mL) pen injector Discontinued 1 mg SC EVERY WEEK 3 October 03, 2023 12:00am January 17, 2024 10:16am Type 2 diabetes mellitus Type 2 diabetes mellitus without complications Start: 10-03-2023 End: 01-17-2024 Semaglutide (Ozempic) 1 mg/d ose (4 mg/3 mL) pen injector Discontinued 1 mg SC EVERY WEEK October 03, 2023 12:00am January 17, 2024 10:16am Start: 10-19-2022 End: 12-28-2022 Semaglutide (Ozempic) 1 mg/d ose (4 mg/3 mL) pen injector Discontinued 1 mg SC EVERY WEEK 3 October 19, 2022 12:00am December 28, 2022 9:33am Type 2 diabetes mellitus Type 2 diabetes mellitus without complications Start: 10-19-2022 End: 12-28-2022 Semaglutide (Ozempic) 1 [...] mg/d ose (8 mg/3 mL) pen injector (7 sources) Start: 12-28-2022 End: 10-03-2023 Semaglutide (Ozempic) 2 mg/d ose (8 mg/3 mL) pen injector Discontinued 2 mg SC EVERY WEEK 3 December 28, 2022 12:00am October 03, 2023 10:12am Start: 12-28-2022 End: 10-03-2023 Semaglutide (Ozempic) 2 [...] injector Active 2 MG SC EVERY WEEK December 28, 2022 12:00am sertraline 25 mg oral tablet (4 sources) Serotonin Reuptake Inhibitor Start: 03-13-2024 End: 11-30-2024 take 1 tablet by mouth once daily Sertraline 25 mg tablet Discontinued 25 mg PO daily March 13, 2024 12:00am November 30, 2024 1:56pm simvastatin 20 mg oral tablet (10 sources) HMG-CoA Reductase Inhibitor Start: 06-10-2015 End: 01-19-2016 take 1 tablet by mouth at bedtime SIMVASTATIN 20 MG TABS One tablet by mouth at bedtime. SIMVASTATIN [id number] Stewart Boggs MD spironolactone 50 mg oral tablet (20 sources) Aldosterone Antagonist Start: 01-13-2016 End: 06-19-2016 Spironolactone 50 MG tablet Discontinued 25 mg PO DAILY 30 January 13, 2016 10:45am June 19, 2016 [...] TABS One tablet by mouth daily SPIRONOLACTONE [id number] Kristen Sandy RN vitamin d 1000 unt oral tablet (5 sources) Start: 08-23-2016 take 5 tablets by mouth once daily VITAMIN D 1000 UNIT TABS Five tablets by mouth daily CHOLECALCIFEROL [id number] Stewart Boggs MD Start: 08-23-2016 take 5 tablets by mo [facility] once daily VITAMIN D 1000 UNIT TABS Five tablets by mouth daily CHOLECALCIFEROL [id number] Stewart Boggs MD Start: 08-23-2016 take 5 tablets by mo [facility] once daily VITAMIN D 1000 UNIT TABS Five tablets by mouth daily CHOLECALCIFEROL [id number] Stewart Boggs MD Problems Active Problems Problem Classification Problem Date Documented Da te Episodic/Chronic Acute and unspecified renal failure (10 sources) Injury of kidney; Translations: [Acute kidney failure, unspecified] 10-26-2019 Episodic Anxiety disorders (10 sources) Mixed anxiety and depressive disorder; Translations: [...] Translations: [Palpitations] 02-24-2016 Episodic Chronic kidney disease (14 sources) Chronic kidney disease stage 3; Translations: [Stage 3 chronic kidney disease] 12-28-2022 Chronic Conditions associated with dizziness or vertigo (14 sources) Vertigo; Translations: [Dizziness and giddiness] 07-07-2020 Episodic Conduction disorders (20 sources) Bundle branch block; Translations: [Automatic implantable cardiac defibrillator in situ] Onset: 5 05-27-2015 Chronic Comment on above: Implanted 03/16/2016 mala Garcia, [facility] Congestive heart failure; nonhypertensive (20 sources) Chronic systolic (congestive) heart failure; Translations: [Acute on chronic systolic heart failure] Onset: 6 01-17-2016 Chronic Coronary atherosclerosis and other heart disease (20 sources) Atherosclerotic heart disease of [place] coronary artery without angina pectoris; Translations: [Myocardial ischemia] Onset: 5 Resolved: 6 12-01-2016 Chronic Comment on above: 05/26/2015 @ [facility] per Dr. Boggs: mild nonobstructive CAD Diabetes mellitus with complications (19 sources) Disorder of nervous system due to type 2 diabetes mellitus; Translations: [Type 2 diabetes mellitus with other diabetic neurological complication] Onset: 5 Chronic Diabetes mellitus without complication (20 sources) Diabetes mellitus; Translations: [Type 2 diabetes mellitus] Onset: 5 06-10-2015 Chronic Disorders of lipid metabolism (20 sources) Hyperlipidemia; Translations: [Pure hypercholesterolemia] Onset: 6 01-17-2016 Chronic E Codes: Adverse effects of medical drugs (4 sources) Adverse reaction to drug; Translations: [Adverse effect of unspecified drugs, medicaments and biological substances, initial encounter] 02-26-2024 Episodic Essential hypertension (20 sources) Essential hypertension; Translations: [Essential (primary) hypertension] Onset: 4 02-24-2016 Chronic Gastrointestinal hemorrhage (10 sources) Acute upper gastrointestinal hemorrhage; Translations: [Gastrointestinal hemorrhage, unspecified] 07-06-2020 Episodic Genitourinary symptoms and ill-defined conditions (3 sources) Microalbuminuria; Translations: [Proteinuria, unspecified] 07-17-2024 Episodic Heart valve disorders (15 sources) Nonrheumatic mitral (valve) insufficiency; Translations: [Non-rheumatic mitral regurgitation ] Onset: 6 01-17-2016 Chronic Comment on above: moderate (2+) per ec ho 01/13/2016 Influenza (10 sources) Influenza due to Influenza A virus; Translations: [Influenza due to other identified influenza virus with other respiratory manifestations] 06-09-2022 Episodic Intestinal obstruction without hernia (7 sources) Fecal impaction; Translations: [Fecal impaction of rectum] 11-30-2022 Episodic Mood disorders (8 sources) Depressive disorder; Translations: [Depression] 07-04-2023 Chronic Mycoses (1 source) Onychomycosis; Translations: [Tinea unguium] Episodic Nausea and vomiting (15 sources) Nausea and vomiting; Translations: [Nausea with vomiting, unspecified] Onset: 4 06-09-2022 Episodic Nonspecific chest pain (10 sources) Chest wall pain; Translations: [Other chest pain] 09-13-2023 Episodic Other circulatory disease (10 sources) Disorder of carotid artery; Translations: [Disorder of arteries and arterioles, unspecified] 10-26-2019 Chronic Other circulatory disease (4 sources) History of cardiomyopathy; Translations: [Personal history of other diseases of the circulatory system] 02-26-2024 Episodic Other connective tissue disease (1 source) Pain of toe of left foot; Translations: [Pain in left toe(s)] Episodic Other connective tissue disease (1 source) Pain of toe of right foot; Translations: [Pain in right toe(s)] Episodic Other diseases of veins and lymphatics (2 sources) Lymphedema; Translations: [Lymphedema, not elsewhere classified] 11-30-2024 Chronic Other gastrointestinal disorders (7 sources) Constipation; Translations: [Constipation, unspecified] 11-30-2022 Episodic Other injuries and conditions due to external causes (10 sources) Closed injury of head; Translations: [Unspecified injury of head, initial encounter] 08-18-2020 Episodic Other lower respiratory disease (20 sources) Dyspnea; Translations: [Shortness of breath] 05-01-2020 Episodic Other lower respiratory disease (2 sources) Dyspnea on exertion; Translations: [Other forms of dyspnea] 11-30-2024 Episodic Other lower respiratory disease (2 sources) Orthopnea; Translations: [Orthopnea] 11-30-2024 Episodic Other lower respiratory disease (1 source) Shortness of breath; Translations: [Shortness of breath] Onset: Episodic Other nervous system disorders (4 sources) Dysarthria; Translations: [Dysarthria and anarthria] 02-26-2024 [...] Chronic Other nutritional; endocrine; and metabolic disorders (6 sources) Obesity; Translations: [Obesity, unspecified] 10-24-2024 Chronic Other nutritional; endocrine; and metabolic disorders (2 sources) Body mass index 40+ - severely obese; Translations: [Body mass index (BMI) 40.0-44.9, adult] 11-30-2024 Chronic Other nutritional; endocrine; and metabolic disorders (4 sources) H/O: diabetes mellitus; Translations: [Personal history of other endocrine, nutritional and metabolic disease] 02-26-2024 Episodic Other screening for suspected conditions (not mental disorders or infectious disease) (15 sources) Electrocardiogram abnormal; Translations: [Abnormal electrocardiogram [ECG] [EKG]] Onset: 4 10-26-2019 Episodic Other skin disorders (1 source) Keratosis; Translations: [Epidermal thickening, unspecified] Episodic Negrita-; endo-; and myocarditis; cardiomyopathy (20 sources) Dilated cardiomyopathy; Translations: [Cardiomyopathy] Onset: 5 07-22-2015 Chronic Comment on above: Ejection fraction 20 % per echo 01/13/2016 @ [facility] Peripheral and visceral atherosclerosis (5 sources) Peripheral vascular disease, unspecified; Translations: [Peripheral vascular disease, unspecified] Onset: 6 01-19-2016 Chronic Residual codes; unclassified (8 sources) Noncompliance with medication regimen; Translations: [Noncompliance with medication regimen] 10-19-2022 Episodic Screening and history of mental health and substance abuse codes (10 sources) Ex-tobacco user; Translations: [Personal history of nicotine dependence] 04-30-2020 Episodic Superficial injury; contusion (20 sources) Abrasion of nose; Translations: [Abrasion of nose, initial encounter] 08-18-2020 Episodic Syncope (8 sources) Near syncope; Translations: [Syncope and collapse] 02-01-2023 Episodic Unclassified (18 sources) Obstructive sleep apnea syndrome; Translations: [Obstructive sleep apnea (adult) (pediatric)] Onset: 6 01-17-2016 Chronic Unclassified (3 sources) Long-term drug therapy; Translations: [Other m[facility] (current) drug therapy] Onset: 6 06-23-2015 Past or Other Problems Problem Classification Problem Date Documented Da te Episodic/Chronic Other aftercare (2 sources) Other [facility] (current) drug therapy; Translations: [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 termite inspector (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) drug therapy] Onset: 06-23-2015 06-23-2015 Episodic [...] Test Name Value Interpretation Reference Range Facility 12 Lead EKGon 11-30-2024 12 Lead EKG Normal [facility] Absolute lymphocyte countOrd ered By: Juventino Kern on 11-30-2024 Lymphocytes Auto (Unsp spec) [#/Vol] 2.21 10*3/uL 0.83-4.51 [facility] Absolute neutrophil countOrd ered By: Juventino Kern on 11-30-2024 Neutrophils (Bld) [#/Vol] 3.6 10*3/uL 2.0-7.7 [facility] Anion gap in Serum or Plasma Ordered By: Juventino Kern on 11-30-2024 Anion gap [Moles/Vol] 13 mmol/L 5-15 [facility] Automated lymphocyte count a s percentage of total leukocytesOrdered By: Juventino Kern on 11-30-2024 Lymphocytes/100 WBC Auto (Unsp spec) 34.7 % 19-41 [facility] BUN/creatinine ratioOrdered By: Juventino Kern on 11-30-2024 Urea nitrogen/Creatinine [Mass ratio] 21.4 mg/mg High 10- [facility] Basic Metabolic Profile (BMP )on 11-30-2024 BUN/CRE 21.4 RATIO High 03-30 [facility] Comment on above: Performed By: #### L 500.2500, L100.0100, L503.7505 ####[facility] [address] [place], [address] Calcium [Mass/Vol] 9.0 mg/dL Normal 7.6-11.0 [facility] Comment on above: Performed By: #### L 500.2500, L100.0100, L503.7505 ####[facility] [address] [place], [address] Chloride [Moles/Vol] 97 mmol/L Low 98-108 [facility] Comment on above: Performed By: #### L 500.2500, L100.0100, L503.7505 ####[facility] [address] [place], [address] CO2 [Moles/Vol] 23.7 mmol/L Normal 21.0-32.0 [facility] Comment on above: Performed By: #### L 500.2500, L100.0100, L503.7505 ####[facility] [address] [place], [address] Creatinine [Mass/Vol] 1.33 mg/dL High 0.70-1.20 [facility] Comment on above: Performed By: #### L 500.2500, L100.0100, L503.7505 ####[facility] [address] [place], [address] ECRCL 49.10 ml/min Low 50-250 [facility] Comment on above: Performed By: #### L 500.2500, L100.0100, L503.7505 ####[facility] [address] [place], [address] GAP 13 Normal 5-15 [facility] Comment on above: Performed By: #### L 500.2500, L100.0100, L503.7505 ####[facility] [address] [place], [address] GFR/1.73 sq M.predicted among non-blacks MDRD (S/P/Bld) [Vol rate/Area] 43 mL/min/{1.73_m2} Low >60 [facility] Comment on above: Result Comment: mL/m in/1.73m2 CKD-EPI Creatinine Equation (2020) Performed By: #### L 500.2500, L100.0100, L503.7505 ####[facility] [address] [place], [address] Glucose [Mass/Vol] 262 mg/dL High 70-99 [facility] Comment on above: Performed By: #### L 500.2500, L100.0100, L503.7505 ####[facility] [address] [place], [address] Potassium [Moles/Vol] 4.3 mmol/L Normal 3.3-5.1 [facility] Comment on above: Performed By: #### L 500.2500, L100.0100, L503.7505 ####[facility] [address] [place], [address] Sodium [Moles/Vol] 134 mmol/L Normal 133-145 [facility] Comment on above: Performed By: #### L 500.2500, L100.0100, L503.7505 ####[facility] [address] [place], [address] Urea nitrogen [Mass/Vol] 28 mg/dL High 4-19 [facility] Comment on above: Performed By: #### L 500.2500, L100.0100, L503.7505 ####[facility] [address] [place], [address] Basophil percentageOrdered B y: Juventino Kern on 11-30-2024 Basophils/100 WBC (Bld) 0.6 % 0-1 [facility] CBC W/Diff, Automatedon 11-10 Absolute Lymph 2.21 X10 3/uL Normal 0.83-4.51 [facility] Comment on above: Performed By: #### L 500.2500, L100.0100, L503.7505 ####[facility] [address] [place], [address] Absolute Neut 3.6 X10 3/uL Normal 2.0-7.7 [facility] Comment on above: Performed By: #### L 500.2500, L100.0100, L503.7505 ####[facility] [address] [place], [address] Basophils/100 WBC (Bld) 0.6 % Normal 0-1 [facility] Comment on above: Performed By: #### L 500.2500, L100.0100, L503.7505 ####[facility] [address] [place], [address] Eosinophils/100 WBC (Bld) 2.2 % Normal 0-5 [facility] Comment on above: Performed By: #### L 500.2500, L100.0100, L503.7505 ####[facility] [address] [place], [address] Erythrocyte distribution width (RBC) [Ratio] 12.9 % Normal 11.6-14.6 [facility] Comment on above: Performed By: #### L 500.2500, L100.0100, L503.7505 ####[facility] [address] [place], [address] Hematocrit (Bld) [Volume fraction] 40.0 % Normal 37-47 [facility] Comment on above: Performed By: #### L 500.2500, L100.0100, L503.7505 ####[facility] [address] [place], [address] Hemoglobin (Bld) [Mass/Vol] 13.4 g/dL Normal 12.0-15.0 [facility] Comment on above: Performed By: #### L 500.2500, L100.0100, L503.7505 ####[facility] [address] [place], [address] IG% 0.300 Normal 0.0-0.9 [facility] Comment on above: Result Comment: IG% - Immature Granulocytes (promyelocytes, myelocytes andmetamyelocytes) > 1% indicates that a LEFT SHIFT is Present. Performed By: #### L 500.2500, L100.0100, L503.7505 ####[facility] [address] [place], [address] Lymphocytes/100 WBC (Bld) 34.7 % Normal 19-41 [facility] Comment on above: Performed By: #### L 500.2500, L100.0100, L503.7505 ####[facility] [address] [place], [address] MCH (RBC) [Entitic mass] 29.1 pg Normal 27.0-32.0 [facility] Comment on above: Performed By: #### L 500.2500, L100.0100, L503.7505 ####[facility] [address] [place], [address] MCHC (RBC) [Mass/Vol] 33.5 g/dL Normal 32-36 [facility] Comment on above: Performed By: #### L 500.2500, L100.0100, L503.7505 ####[facility] [address] [place], [address] MCV (RBC) [Entitic vol] 86.8 fL Normal 81-99 [facility] Comment on above: Performed By: #### L 500.2500, L100.0100, L503.7505 ####[facility] [address] [place], [address] Monocytes/100 WBC (Bld) 5.3 % Normal 0-10 [facility] Comment on above: Performed By: #### L 500.2500, L100.0100, L503.7505 ####[facility] [address] [place], [address] Neutrophils/100 WBC (Bld) 56.9 % Normal 47-70 [facility] Comment on above: Performed By: #### L 500.2500, L100.0100, L503.7505 ####[facility] [address] [place], [address] Nucleated RBC (Bld) [#/Vol] 0 10*3/uL Normal 0-5 [facility] Comment on above: Performed By: #### L 500.2500, L100.0100, L503.7505 ####[facility] [address] [place], [address] Platelet mean volume (Bld) [Entitic vol] 9.2 fL Normal 6.2-12.0 [facility] Comment on above: Performed By: #### L 500.2500, L100.0100, L503.7505 ####[facility] [address] [place], [address] Platelets (Bld) [#/Vol] 280 10*3/uL Normal 150-450 [facility] Comment on above: Performed By: #### L 500.2500, L100.0100, L503.7505 ####[facility] [address] [place], [address] RBC (Bld) [#/Vol] 4.61 10*6/uL Normal 4.2-5.4 [facility] Comment on above: Performed By: #### L 500.2500, L100.0100, L503.7505 ####[facility] [address] [place], [address] RDW SD 40.4 fl Normal 35.1-43.9 [facility] Comment on above: Performed By: #### L 500.2500, L100.0100, L503.7505 ####[facility] [address] [place], [address] WBC (Bld) [#/Vol] 6.4 10*3/uL Normal 4.4-11.0 [facility] Comment on above: Performed By: #### L 500.2500, L100.0100, L503.7505 ####[facility] [address] [place], [address] Carbon dioxide, total [Moles /volume] in Central venous bloodOrdered By: Juventino Kern on 11-30-2024 CO2 [Moles/Vol] 23.7 mmol/L 21.0-32.0 [facility] Chest PA and Lateralon 11-30 Chest PA and Lateral Normal [facility] Chloride assayOrdered By: Ug o Kern on 11-30-2024 Chloride [Moles/Vol] 97 mmol/L Low 98-108 [facility] Emergency Department Summary on 11-30-2024 Emergency Department Summary Normal [facility] Eosinophil percentageOrdered By: Juventino Kern on 11-30-2024 Eosinophils/100 WBC (Bld) 2.2 % 0-5 [facility] Erythrocyte distribution wid th ratioOrdered By: Juventino Kern on 11-30-2024 Erythrocyte distribution width (RBC) [Ratio] 12.9 % 11.6-14.6 [facility] Erythrocyte distribution wid th standard deviationOrdered By: Juventino Kern on 11-30-2024 Erythrocyte distribution width (RBC) [Ratio] 40.4 fl 35.1-43.9 [facility] Glomerular filtration rate ( GFR) estimation/1.73 sq m using serum, plasma, or whole bOrdered By: Juventinocorinne Kern on 11-30-2024 GFR/1.73 sq M.predicted among non-blacks MDRD (S/P/Bld) [Vol rate/Area] 43 mL/min/{1.73_m2} Low >60 [facility] Comment on above: mL/min/1.73m2 CKD-EP I Creatinine Equation (2020) Hematocrit Auto (Bld) [Volum e fraction]Ordered By: Juventinocorinne Kern on 11-30-2024 Hematocrit (Bld) [Volume fraction] 40.0 % 37-47 [facility] Hemoglobin measurementOrdere d By: Juventinocorinne Kern on 11-30-2024 Hemoglobin (Bld) [Mass/Vol] 13.4 g/dL 12.0-15.0 [facility] Immature granulocytes/100 WB C Auto (Bld)Ordered By: Juventinocorinne Kern on 11-30-2024 Immature granulocytes/100 WBC (Bld) 0.300 % 0.0-0.9 [facility] Comment on above: IG% - Immature Granu locytes (promyelocytes, myelocytes and metamyelocytes) > 1% indicates that a LEFT SHIFT is Present. L499.0042on 11-30-2024 Trop T High Sen 15 ng/L High <=14 [facility] Comment on above: Performed By: #### L 499.0042 ####[facility] [address] [place], [address] L499.0043on 11-30-2024 Trop T High Sen Normal <=14 [facility] Comment on above: Result Comment: Canc elled via OM: Order cancelled - Patient discharged Performed By: #### L 499.0043 ####[facility] [address] [place], [address] L501.4021on 11-30-2024 Trop T High Sen 14 ng/L Normal <=14 [facility] Comment on above: Performed By: #### L 501.4021 ####[facility] [address] [place], [address] L503.7505on 11-30-2024 Natriuretic peptide B (Bld) [Mass/Vol] 172 pg/mL Normal <=900 [facility] Comment on above: Result Comment: Hear t Failure Unlikely: < 300 pg/mLHeart Failure Likely< 50 Years: > 450 pg/mL50-75 Years: > 900 pg/mL>75 Years: > 1800 pg/mL Performed By: #### L 500.2500, L100.0100, L503.4018 ####[facility] [address] [place], [place], [address] MCV (mean corpuscular volume ) determinationOrdered By: Juventino Kern on 11-30-2024 MCV (RBC) [Entitic vol] 86.8 fL 81-99 [facility] Mean corpuscular hemoglobin (MCH) determinationOrdered By: [facility] on 11-30-2024 MCH (RBC) [Entitic mass] 29.1 pg 27.0-32.0 [facility] Mean corpuscular hemoglobin concentration (MCHC) determinationOrdered By: Juventino Kern on 11-30-2024 MCHC (RBC) [Mass/Vol] 33.5 g/dL 32-36 [facility] Mean platelet volume determi nationOrdered By: Juventinocorinne Kern on 11-30-2024 Platelet mean volume (Bld) [Entitic vol] 9.2 fL 6.2-12.0 [facility] Monocyte percentageOrdered B y: [facility] on 11-30-2024 Monocytes/100 WBC (Bld) 5.3 % 0-10 [facility] Natriuretic peptide.B prohor akin N-Terminal [Mass/volume] in Serum or PlasmaOrdered By: Juventinocorinne Kern on 11-30-2024 Natriuretic peptide.B prohormone N-Terminal [Mass/Vol] 172 pg/mL <900 [facility] Comment on above: Heart Failure Unlike ly: < 300 pg/mLHeart Failure Likely< 50 Years: > 450 pg/mL50-75 Years: > 900 pg/mL>75 Years: > 1800 pg/mL Neutrophil percentageOrdered By: Juventino Kern on 11-30-2024 Neutrophils/100 WBC (Bld) 56.9 % 47-70 [facility] Nucleated red blood cell per centageOrdered By: Juventino Kern on 11-30-2024 Nucleated RBC/100 WBC (Bld) [Ratio] 0 % 0-5 [facility] Platelet countOrdered By: Annetta Kern on 11-30-2024 Platelets (Bld) [#/Vol] 280 10*3/uL 150-450 [facility] Potassium measurement (mass/ volume)Ordered By: Juventino Kern on 11-30-2024 Potassium (Unsp spec) [Mass/Vol] 4.3 mmol/L 3.3-5.1 [facility] RBC Auto (Bld) [#/Vol]Ordere d By: Juventino Kern on 11-30-2024 RBC (Bld) [#/Vol] 4.61 10*6/uL 4.2-5.4 [facility] Serum creatinine measurement (mass/volume)Ordered By: Juventino Kern on 11-30-2024 Creatinine [Mass/Vol] 1.33 mg/dL High 0.70-1.20 [facility] Serum glucose measurement (m ass/volume)Ordered By: Juventino Kern on 11-30-2024 Glucose [Mass/Vol] 262 mg/dL High 70-99 [facility] Serum or plasma calcium gavi urement (mass/volume)Ordered By: Juventino Kern on 11-30-2024 Calcium [Mass/Vol] 9.0 mg/dL 7.6-11.0 [facility] Serum or plasma urea nitroge n measurement (mass/volume)Ordered By: Juventino Kern on 11-30-2024 Urea nitrogen [Mass/Vol] 28 mg/dL High 4-19 [facility] Sodium levelOrdered By: Juventino Kern on 11-30-2024 Sodium [Moles/Vol] 134 mmol/L 133-145 [facility] Troponin T.cardiac [Mass/vol ume] in Serum or Plasma by High sensitivity methodOrdered By: Juventino Kern on 11-30-2024 Troponin T.cardiac High sensitivity method [Mass/Vol] 15 ng/L High <14 [facility] Troponin T.cardiac High sensitivity method [Mass/Vol] 14 ng/L <14 [facility] White blood cell (WBC) count Ordered By: Juventino Kern on 11-30-2024 WBC (Bld) [#/Vol] 6.4 10*3/uL 4.4-11.0 [facility] Endocrinology Visit Reporton 10-23-2024 Endocrinology Visit Report Normal [facility] Absolute lymphocyte countOrd ered By: [facility] Sarah Toth on 10-22-2024 Lymphocytes Auto (Unsp spec) [#/Vol] 2.07 10*3/uL 0.83-4.51 [facility] Absolute neutrophil countOrd ered By: [facility] Sarah Toth on 10-22-2024 Neutrophils (Bld) [#/Vol] 3.7 10*3/uL 2.0-7.7 [facility] Anion gap in Serum or Plasma Ordered By: [facility] Sarah Toth on 10-22-2024 Anion gap [Moles/Vol] 12 mmol/L 5-15 [facility] Automated lymphocyte count a s percentage of total leukocytesOrdered By: [facility] Sarah Toth on 10-22-2024 Lymphocytes/100 WBC Auto (Unsp spec) 32.3 % 19-41 [facility] BUN/creatinine ratioOrdered By: [facility] Sarah Toth on 10-22-2024 Urea nitrogen/Creatinine [Mass ratio] 25.2 mg/mg High 10-20 [facility] Basophil percentageOrdered B y: [facility] Sarah Toth on 10-22-2024 Basophils/100 WBC (Bld) 0.6 % 0-1 [facility] Bilirubin, totalOrdered By: [facility] Sarah Toth on 10-22-2024 Bilirubin [Mass/Vol] 0.76 mg/dL 0.00-1.30 [facility] CBC W/Diff, Automatedon 10-09 Absolute Lymph 2.07 X10 3/uL Normal 0.83-4.51 [facility] Comment on above: Performed By: #### L 500.4100, L501.9985, L100.0100, L500.4050, L506.1001, L501.9520, L502.0500 ####[facility] [address] [place], [address] Absolute Neut 3.7 X10 3/uL Normal 2.0-7.7 [facility] Comment on above: Performed By: #### L 500.4100, L501.9985, L100.0100, L500.4050, L506.1001, L501.9520, L502.0500 ####[facility] [address] [place], [address] Basophils/100 WBC (Bld) 0.6 % Normal 0-1 [facility] Comment on above: Performed By: #### L 500.4100, L501.9985, L100.0100, L500.4050, L506.1001, L501.9520, L502.0500 ####[facility] [address] [place], [address] Eosinophils/100 WBC (Bld) 2.5 % Normal 0-5 [facility] Comment on above: Performed By: #### L 500.4100, L501.9985, L100.0100, L500.4050, L506.1001, L501.9520, L502.0500 ####[facility] [address] [place], [address] Erythrocyte distribution width (RBC) [Ratio] 12.9 % Normal 11.6-14.6 [facility] Comment on above: Performed By: #### L 500.4100, L501.9985, L100.0100, L500.4050, L506.1001, L501.9520, L502.0500 ####[facility] [address] [place], [address] Hematocrit (Bld) [Volume fraction] 40.7 % Normal 37-47 [facility] Comment on above: Performed By: #### L 500.4100, L501.9985, L100.0100, L500.4050, L506.1001, L501.9520, L502.0500 ####[facility] [address] [place], [address] Hemoglobin (Bld) [Mass/Vol] 13.5 g/dL Normal 12.0-15.0 [facility] Comment on above: Performed By: #### L 500.4100, L501.9985, L100.0100, L500.4050, L506.1001, L501.9520, L502.0500 ####[facility] [address] [place], [address] IG% 0.300 Normal 0.0-0.9 [facility] Comment on above: Result Comment: IG% - Immature Granulocytes (promyelocytes, myelocytes andmetamyelocytes) > 1% indicates that a LEFT SHIFT is Present. Performed By: #### L 500.4100, L501.9985, L100.0100, L500.4050, L506.1001, L501.9520, L502.0500 ####[facility] [address] [place], [address] Lymphocytes/100 WBC (Bld) 32.3 % Normal 19-41 [facility] Comment on above: Performed By: #### L 500.4100, L501.9985, L100.0100, L500.4050, L506.1001, L501.9520, L502.0500 ####[facility] [address] [place], [address] MCH (RBC) [Entitic mass] 28.8 pg Normal 27.0-32.0 [facility] Comment on above: Performed By: #### L 500.4100, L501.9985, L100.0100, L500.4050, L506.1001, L501.9520, L502.0500 ####[facility] [address] [place], [address] MCHC (RBC) [Mass/Vol] 33.2 g/dL Normal 32-36 [facility] Comment on above: Performed By: #### L 500.4100, L501.9985, L100.0100, L500.4050, L506.1001, L501.9520, L502.0500 ####[facility] [address] [place], [address] MCV (RBC) [Entitic vol] 86.8 fL Normal 81-99 [facility] Comment on above: Performed By: #### L 500.4100, L501.9985, L100.0100, L500.4050, L506.1001, L501.9520, L502.0500 ####[facility] [address] [place], [address] Monocytes/100 WBC (Bld) 6.1 % Normal 0-10 [facility] Comment on above: Performed By: #### L 500.4100, L501.9985, L100.0100, L500.4050, L506.1001, L501.9520, L502.0500 ####[facility] [address] [place], [address] Neutrophils/100 WBC (Bld) 58.2 % Normal 47-70 [facility] Comment on above: Performed By: #### L 500.4100, L501.9985, L100.0100, L500.4050, L506.1001, L501.9520, L502.0500 ####[facility] [address] [place], [address] Nucleated RBC (Bld) [#/Vol] 0 10*3/uL Normal 0-5 [facility] Comment on above: Performed By: #### L 500.4100, L501.9985, L100.0100, L500.4050, L506.1001, L501.9520, L502.0500 ####[facility] [address] [place], [address] Platelet mean volume (Bld) [Entitic vol] 9.2 fL Normal 6.2-12.0 [facility] Comment on above: Performed By: #### L 500.4100, L501.9985, L100.0100, L500.4050, L506.1001, L501.9520, L502.0500 ####[facility] [address] [place], [address] Platelets (Bld) [#/Vol] 274 10*3/uL Normal 150-450 [facility] Comment on above: Performed By: #### L 500.4100, L501.9985, L100.0100, L500.4050, L506.1001, L501.9520, L502.0500 ####[facility] [address] [place], [address] RBC (Bld) [#/Vol] 4.69 10*6/uL Normal 4.2-5.4 [facility] Comment on above: Performed By: #### L 500.4100, L501.9985, L100.0100, L500.4050, L506.1001, L501.9520, L502.0500 ####[facility] [address] [place], [address] RDW SD 40.4 fl Normal 35.1-43.9 [facility] Comment on above: Performed By: #### L 500.4100, L501.9985, L100.0100, L500.4050, L506.1001, L501.9520, L502.0500 ####[facility] [address] [place], [address] WBC (Bld) [#/Vol] 6.4 10*3/uL Normal 4.4-11.0 [facility] Comment on above: Performed By: #### L 500.4100, L501.9985, L100.0100, L500.4050, L506.1001, L501.9520, L502.0500 ####[facility] [address] [place], [place], [id number] Calculated very low density lipoprotein (VLDL) cholesterol measurementOrdered By: [facility] Sarah Toth on 10-22-2024 Calculated very low density lipoprotein (VLDL) cholesterol measurement 36 mg/dL 5-40 [facility] Carbon dioxide, total [Moles /volume] in Central venous bloodOrdered By: [facility] Sarah Toth on 10-22-2024 CO2 [Moles/Vol] 21.5 mmol/L 21.0-32.0 [facility] Chloride assayOrdered By: [facility] Sarah Toth on 10-22-2024 Chloride [Moles/Vol] 102 mmol/L 98-108 [facility] Comprehensive Metabolic Prof ilon 10-22-2024 Albumin [Mass/Vol] 4.0 g/dL Normal 3.4-4.8 [facility] Comment on above: Performed By: #### L 500.4100, L501.9985, L100.0100, L500.4050, L506.1001, L501.9520, L502.0500 ####[facility] [address] [place], [place], [id number] Albumin/Globulin [Mass ratio] 1.4 {ratio} Normal 0.9-2.4 [facility] Comment on above: Performed By: #### L 500.4100, L501.9985, L100.0100, L500.4050, L506.1001, L501.9520, L502.0500 ####[facility] [address] [place], [address] ALK PHOS 86 U/L Normal 35-104 [facility] Comment on above: Performed By: #### L 500.4100, L501.9985, L100.0100, L500.4050, L506.1001, L501.9520, L502.0500 ####[facility] [address] [place], [address] ALT [Catalytic activity/Vol] 14 U/L Normal <=34 [facility] Comment on above: Performed By: #### L 500.4100, L501.9985, L100.0100, L500.4050, L506.1001, L501.9520, L502.0500 ####[facility] [address] [place], [address] AST [Catalytic activity/Vol] 16 U/L Normal <=31 [facility] Comment on above: Performed By: #### L 500.4100, L501.9985, L100.0100, L500.4050, L506.1001, L501.9520, L502.0500 ####[facility] [address] [place], [address] Bilirubin [Mass/Vol] 0.76 mg/dL Normal 0.00-1.30 [facility] Comment on above: Performed By: #### L 500.4100, L501.9985, L100.0100, L500.4050, L506.1001, L501.9520, L502.0500 ####[facility] [address] [place], [address] BUN/CRE 25.2 RATIO High 10-20 [facility] Comment on above: Performed By: #### L 500.4100, L501.9985, L100.0100, L500.4050, L506.1001, L501.9520, L502.0500 ####[facility] [address] [place], [address] Calcium [Mass/Vol] 9.1 mg/dL Normal 7.6-11.0 [facility] Comment on above: Performed By: #### L 500.4100, L501.9985, L100.0100, L500.4050, L506.1001, L501.9520, L502.0500 ####[facility] [address] [place], [address] Chloride [Moles/Vol] 102 mmol/L Normal 98-108 [facility] Comment on above: Performed By: #### L 500.4100, L501.9985, L100.0100, L500.4050, L506.1001, L501.9520, L502.0500 ####[facility] [address] [place], [address] CO2 [Moles/Vol] 21.5 mmol/L Normal 21.0-32.0 [facility] Comment on above: Performed By: #### L 500.4100, L501.9985, L100.0100, L500.4050, L506.1001, L501.9520, L502.0500 ####[facility] [address] [place], [address] Creatinine [Mass/Vol] 1.09 mg/dL Normal 0.70-1.20 [facility] Comment on above: Performed By: #### L 500.4100, L501.9985, L100.0100, L500.4050, L506.1001, L501.9520, L502.0500 ####[facility] [address] [place], [address] GAP 12 Normal 5-15 [facility] Comment on above: Performed By: #### L 500.4100, L501.9985, L100.0100, L500.4050, L506.1001, L501.9520, L502.0500 ####[facility] [address] [place], [address] GFR/1.73 sq M.predicted among non-blacks MDRD (S/P/Bld) [Vol rate/Area] 54 mL/min/{1.73_m2} Low >60 [facility] Comment on above: Result Comment: mL/m in/1.73m2 CKD-EPI Creatinine Equation (2020) Performed By: #### L 500.4100, L501.9985, L100.0100, L500.4050, L506.1001, L501.9520, L502.0500 ####[facility] [address] [place], [address] Globulin (S) [Mass/Vol] 2.8 g/dL Normal 2.2-4.2 [facility] Comment on above: Performed By: #### L 500.4100, L501.9985, L100.0100, L500.4050, L506.1001, L501.9520, L502.0500 ####[facility] [address] [place], [address] Glucose [Mass/Vol] 166 mg/dL High 70-99 [facility] Comment on above: Performed By: #### L 500.4100, L501.9985, L100.0100, L500.4050, L506.1001, L501.9520, L502.0500 ####[facility] [address] [place], [address] Potassium [Moles/Vol] 4.7 mmol/L Normal 3.3-5.1 [facility] Comment on above: Performed By: #### L 500.4100, L501.9985, L100.0100, L500.4050, L506.1001, L501.9520, L502.0500 ####[facility] [address] [place], [address] Sodium [Moles/Vol] 135 mmol/L Normal 133-145 [facility] Comment on above: Performed By: #### L 500.4100, L501.9985, L100.0100, L500.4050, L506.1001, L501.9520, L502.0500 ####[facility] [address] [place], [place], [phone] T PROT 6.8 g/dL Normal 5.9-8.4 [facility] Comment on above: Performed By: #### L 500.4100, L501.9985, L100.0100, L500.4050, L506.1001, L501.9520, L502.0500 ####[facility] [address] [place], [place], [phone] Urea nitrogen [Mass/Vol] 28 mg/dL High 4-19 [facility] Comment on above: Performed By: #### L 500.4100, L501.9985, L100.0100, L500.4050, L506.1001, L501.9520, L502.0500 ####[facility] [address] [place], [address] Eosinophil percentageOrdered By: [facility] Sarah Toth on 10-22-2024 Eosinophils/100 WBC (Bld) 2.5 % 0-5 [facility] Erythrocyte distribution wid th ratioOrdered By: [facility] Sarah Toth on 10-22-2024 Erythrocyte distribution width (RBC) [Ratio] 12.9 % 11.6-14.6 [facility] Erythrocyte distribution wid th standard deviationOrdered By: [facility] Sarah Toth on 10-22-2024 Erythrocyte distribution width (RBC) [Ratio] 40.4 fl 35.1-43.9 [facility] Glomerular filtration rate ( GFR) estimation/1.73 sq m using serum, plasma, or whole bOrdered By: [facility] Sarah Toth on 10-22-2024 GFR/1.73 sq M.predicted among non-blacks MDRD (S/P/Bld) [Vol rate/Area] 54 mL/min/{1.73_m2} Low >60 [facility] Comment on above: mL/min/1.73m2 CKD-EP I Creatinine Equation (2020) Hematocrit Auto (Bld) [Volum e fraction]Ordered By: [facility] Sarah Toth on 10-22-2024 Hematocrit (Bld) [Volume fraction] 40.7 % 37-47 [facility] Hemoglobin A1con 10-22-2024 HbA1c (Bld) [Mass fraction] 7.8 % High <=5.6 [facility] Comment on above: Result Comment: Norm al < 5.7 % Prediabetic 5.7 - 6.4 % Diabetic >or= 6.5 % Please note range changes. Performed By: #### L 500.4100, L501.9985, L100.0100, L500.4050, L506.1001, L501.9520, L502.0500 ####[facility] [address] [place], [place], [phone] Hemoglobin A1c percentageOrd ered By: [facility] Sarah Toth on 10-22-2024 HbA1c (Bld) [Mass fraction] 7.8 % High <5.7 [facility] Comment on above: Normal < 5.7 % Predi abetic 5.7 - 6.4 % Diabetic >or= 6.5 % Please note range changes. Hemoglobin measurementOrdere d By: [facility] Sarah Toth on 10-22-2024 Hemoglobin (Bld) [Mass/Vol] 13.5 g/dL 12.0-15.0 [facility] Immature granulocytes/100 WB C Auto (Bld)Ordered By: [facility] Sarah Toth on 10-22-2024 Immature granulocytes/100 WBC (Bld) 0.300 % 0.0-0.9 [facility] Comment on above: IG% - Immature Granu locytes (promyelocytes, myelocytes and metamyelocytes) > 1% indicates that a LEFT SHIFT is Present. LDL calc ser/plasOrdered By: [facility] Sarah Toth on 10-22-2024 Cholesterol in LDL [Mass/Vol] 119 mg/dL [facility] Comment on above: Pbahjqupaf=531-977 m g/dL & Higher Rauo=455 mg/dL or greater Laboratory - Chemistry and C hemistry - challengeOrdered By: [facility] Sarah Toth on 10-22-2024 AST [Catalytic activity/Vol] 16 U/L <32 [facility] Lipid Profileon 10-22-2024 CHOL:HDL 3.93 Normal [facility] Comment on above: Performed By: #### L 500.4100, L501.9985, L100.0100, L500.4050, L506.1001, L501.9520, L502.0500 ####[facility] [address] [place], [address] Cholesterol [Mass/Vol] 207 mg/dL High <=200 [facility] Comment on above: Result Comment: Chol esterol level, Desirable <200 mg/dLBorderline high cholesterol 200-239 mg/dLHigh cholesterol >=240 mg/dLRecommendations of the NCEP Adult Treatment Panel for thefollowing risk-cutoff thresholds for the [place] [employer]. Performed By: #### L 500.4100, L501.9985, L100.0100, L500.4050, L506.1001, L501.9520, L502.0500 ####[facility] [address] [place], [address] Cholesterol in HDL [Mass/Vol] 53 mg/dL Normal [facility] Comment on above: Result Comment: Joanie onal Cholesterol Education Program (NCEP) guidelines:<40 mg/dL: Low HDL-cholesterol (major risk factor for CHD)>= 60 mg/dL: High HDL-cholesterol (negative risk factor forCHD)HDL-cholesterol is affected by a number of factors, e.g.smoking, exercise, hormones, sex and age. Performed By: #### L 500.4100, L501.9985, L100.0100, L500.4050, L506.1001, L501.9520, L502.0500 ####[facility] [address] [place], [address] Cholesterol in LDL [Mass/Vol] 119 mg/dL Normal [facility] Comment on above: Result Comment: Bord feaakm=852-043 mg/dL Higher Raii=117 mg/dL or greater Performed By: #### L 500.4100, L501.9985, L100.0100, L500.4050, L506.1001, L501.9520, L502.0500 ####[facility] [address] [place], [place], [phone] Cholesterol in VLDL [Mass/Vol] 36 mg/dL Normal 5-40 [facility] Comment on above: Performed By: #### L 500.4100, L501.9985, L100.0100, L500.4050, L506.1001, L501.9520, L502.0500 ####[facility] [address] [place], [place], [phone] Triglyceride [Mass/Vol] 178 mg/dL Normal [facility] Comment on above: Result Comment: The drugs N-Acetylcysteine and Metamizole may falselydepress this assay.Normal range: <150 mg/dLBorderline High: 150-199 mg/dLHigh: 200-499 mg/dLVery High: >500 mg/dL Performed By: #### L 500.4100, L501.9985, L100.0100, L500.4050, L506.1001, L501.9520, L502.0500 ####[facility] [address] [place], [place], [phone] MCV (mean corpuscular volume ) determinationOrdered By: [facility] Sarah Toth on 10-22-2024 MCV (RBC) [Entitic vol] 86.8 fL 81-99 [facility] Mean corpuscular hemoglobin (MCH) determinationOrdered By: [facility] Sarah Toth on 10-22-2024 MCH (RBC) [Entitic mass] 28.8 pg 27.0-32.0 [facility] Mean corpuscular hemoglobin concentration (MCHC) determinationOrdered By: [facility] Sarah Toth on 05-14-2025 MCHC (RBC) [Mass/Vol] 33.2 g/dL 32-36 [facility] Mean platelet volume determi nationOrdered By: [facility] Sarah Toth on 10-22-2024 Platelet mean volume (Bld) [Entitic vol] 9.2 fL 6.2-12.0 [facility] Microalbumin,Random Urineon 10-22-2024 MICROALBUMIN,UR 66.5 mg/L Normal NO RANGE EST. [facility] Comment on above: Performed By: #### L 500.4100, L501.9985, L100.0100, L500.4050, L506.1001, L501.9520, L502.0500 ####[facility] [address] [place], [address] Monocyte percentageOrdered B y: [facility] Sarah Toth on 10-22-2024 Monocytes/100 WBC (Bld) 6.1 % 0-10 [facility] Neutrophil percentageOrdered By: [facility] Sarah Toth on 10-22-2024 Neutrophils/100 WBC (Bld) 58.2 % 47-70 [facility] Nucleated red blood cell per centageOrdered By: [facility] Sarah Toth on 10-22-2024 Nucleated RBC/100 WBC (Bld) [Ratio] 0 % 0-5 [facility] Platelet countOrdered By: [facility] Sarah Toth on 10-22-2024 Platelets (Bld) [#/Vol] 274 10*3/uL 150-450 [facility] Potassium measurement (mass/ volume)Ordered By: [facility] Sarah Toth on 10-22-2024 Potassium (Unsp spec) [Mass/Vol] 4.7 mmol/L 3.3-5.1 [facility] RBC Auto (Bld) [#/Vol]Ordere d By: [facility] Sarah Toth on 10-22-2024 RBC (Bld) [#/Vol] 4.69 10*6/uL 4.2-5.4 [facility] Screening total cholesterol/ high density lipoprotein (HDL) cholesterol ratioOrdered By: [facility] Sarah Toth on 10-22-2024 Cholesterol.total/Choles terol in HDL [Mass ratio] 3.93 {ratio} [facility] Serum creatinine measurement (mass/volume)Ordered By: [facility] Sarah Toth on 10-22-2024 Creatinine [Mass/Vol] 1.09 mg/dL 0.70-1.20 [facility] Serum globulin measurementOr dered By: [facility] Sarah Toth on 10-22-2024 Globulin (S) [Mass/Vol] 2.8 g/dL 2.2-4.2 [facility] Serum glucose measurement (m ass/volume)Ordered By: [facility] Sarah Toth on 10-22-2024 Glucose [Mass/Vol] 166 mg/dL High 70-99 [facility] Serum or plasma alanine toribio otransferase (ALT) measurementOrdered By: [facility] Sarah Toth on 10-22-2024 ALT [Catalytic activity/Vol] 14 U/L <35 [facility] Serum or plasma albumin gavi urement (mass/volume)Ordered By: [facility] Sarah Toth on 10-22-2024 Albumin [Mass/Vol] 4.0 g/dL 3.4-4.8 [facility] Serum or plasma albumin/glob ulin mass ratioOrdered By: [facility] Sarah Toth on 10-22-2024 Albumin/Globulin [Mass ratio] 1.4 {ratio} 0.9-2.4 [facility] Serum or plasma alkaline david sphatase measurementOrdered By: [facility] Sarah Toth on 10-22-2024 ALP [Catalytic activity/Vol] 86 U/L 35-104 [facility] Serum or plasma calcium gavi urement (mass/volume)Ordered By: [facility] Sarah Toth on 10-22-2024 Calcium [Mass/Vol] 9.1 mg/dL 7.6-11.0 [facility] Serum or plasma cholesterol in HDL measurement (mass/volume)Ordered By: [facility] Sarah Toth on 10-22-2024 Cholesterol in HDL [Mass/Vol] 53 mg/dL >40 [facility] Comment on above: National Cholesterol Education Program (NCEP) guidelines:<40 mg/dL: Low HDL-cholesterol (major risk factor for CHD)>= 60 mg/dL: High HDL-cholesterol (negative risk factor for CHD)HDL-cholesterol is affected by a number of factors, e.g. smoking, exercise, hormones, sex and age. Serum or plasma cholesterol measurement (mass/volume)Ordered By: [facility] Sarah Toth on 10-22-2024 Cholesterol [Mass/Vol] 207 mg/dL High <201 [facility] Comment on above: Cholesterol level, D esirable <200 mg/dLBorderline high cholesterol 200-239 mg/dLHigh cholesterol >=240 mg/dLRecommendations of the NCEP Adult Treatment Panel for the following risk-cutoff thresholds for the [place] population. Serum or plasma urea nitroge n measurement (mass/volume)Ordered By: [facility] Sarah Toth on 10-22-2024 Urea nitrogen [Mass/Vol] 28 mg/dL High 4-19 [facility] Sodium levelOrdered By: [facility] 10-22-2024 Sodium [Moles/Vol] 135 mmol/L 133-145 [facility] TSH DL <= 0.005 mIU/L QnOrde red By: [facility] on 10-22-2024 TSH Qn 3.300 uIU/mL 0.300-4.200 [facility] Thyroid Stim Hormone (TSH)on 10-22-2024 TSH 3.300 uIU/mL Normal 0.300-4.200 [facility] Comment on above: Performed By: #### L 500.4100, L501.9985, L100.0100, L500.4050, L506.1001, L501.9520, L502.0500 ####[facility] [address] [place], [place], [address] Total proteinOrdered By: [facility] Sarah Toth on 10-22-2024 Protein [Mass/Vol] 6.8 g/dL 5.9-8.4 [facility] Triglycerides measurementOrd ered By: [facility] Sarah Toth on 10-22-2024 Triglyceride [Mass/Vol] 178 mg/dL <199 [facility] Comment on above: The drugs N-Acetylcy steine and Metamizole may falsely depress this assay. Normal range: <150 mg/dLBorderline High: 150-199 mg/dLHigh: 200-499 mg/dLVery High: >500 mg/dL Urine albumin measurement [facility] detection limit of 20 mg/L or less (mass/volume)Ordered By: [facility] Sarah Toth on 10-22-2024 Albumin DL <= 20 mg/L (U) [Mass/Vol] 66.5 mg/L NO RANGE EST. [facility] Vitamin D,25 Hydroxyon 10-22 Vitamin D 25-OH 31.5 ng/mL Normal 30-100 [facility] Comment on above: Result Comment: Carly min D StatusDeficiency: <20 ng/mL (50nmol/L)Insufficiency: 20-30 ng/mL (50-75 nmol/L)Sufficiency: 30-100 ng/mL (75-250 nmol/L)Toxicity: >100 ng/mL (>250 nmol/L) Performed By: #### L 500.4100, L501.9985, L100.0100, L500.4050, L506.1001, L501.9520, L502.0500 ####[facility] [address] [facility] [place], [address] White blood cell (WBC) count Ordered By: [facility] Sarah Toth on 10-22-2024 WBC (Bld) [#/Vol] 6.4 10*3/uL 4.4-11.0 [facility] Endocrinology Visit Reporton 07-16-2024 Endocrinology Visit Report Normal [facility] Absolute lymphocyte countOrd ered By: [facility] Sarah Toth on 07-02-2024 Lymphocytes Auto (Unsp spec) [#/Vol] 2.23 10*3/uL 0.83-4.51 [facility] Absolute neutrophil countOrd ered By: [facility] Sarah Toth on 07-02-2024 Neutrophils (Bld) [#/Vol] 4.9 10*3/uL 2.0-7.7 [facility] Albumin to globulin ratioOrd ered By: [facility] Sarah Toth on 07-02-2024 Albumin/Globulin [Mass ratio] 0.9 {ratio} Normal 0.9-2.4 [facility] Comment on above: Order Comment: CHAKA MALLORY ORDER ALL LABSDIVYA ORDERED LIPID AND LIVER Performed By: #### L 501.4700, L500.4050, L506.1000, L501.9520, L502.0500, L500.4100, L501.9985, L100.0100 ####[facility] [address] [place], [place], [phone] Automated lymphocyte count a s percentage of total leukocytesOrdered By: [facility] Sarah Toth on 07-02-2024 Lymphocytes/100 WBC Auto (Unsp spec) 28.6 % 19-41 [facility] Basophil percentageOrdered B y: [facility] Sarah Toth on 07-02-2024 Basophils/100 WBC (Bld) 0.9 % 0-1 [facility] Bilirubin directOrdered By: [facility] Sarah Toth on 07-02-2024 Bilirubin.direct [Mass/Vol] 0.16 mg/dL Normal 0.00-0.30 [facility] Comment on above: Order Comment: [facility] MALLORY [facility] LIPID [facility] LIVER Performed By: #### L 501.4700, L500.4050, L506.1000, L501.9520, L502.0500, L500.4100, L501.9985, L100.0100 ####[facility] [address] [facility] [place], [place], [phone] Bilirubin, totalOrdered By: [facility] Sarah Toth on 07-02-2024 Bilirubin [Mass/Vol] 1.00 mg/dL Normal 0.20-1.00 [facility] Comment on above: For patients on eltr ombopag therapy, use of Dimension [place] TBIL is not recommended. Order Comment: CHAKA MALLORY ORDER ALL LABSRAULTS ORDERED LIPID AND LIVER Result Comment: For patients on eltrombopag therapy, use of Dimension [place] TBIL is not recommended. Performed By: #### L 501.4700, L500.4050, L506.1000, L501.9520, L502.0500, L500.4100, L501.9985, L100.0100 ####[facility] [address] [place], [address] Blood urea nitrogen (BUN)/cr eatinine ratioOrdered By: [facility] Sarah Toth on 07-02-2024 Urea nitrogen/Creatinine [Mass ratio] 22.8 mg/mg High 10-20 [facility] CBC W/Diff, Automatedon 06-12 Absolute Lymph 2.23 X10 3/uL Normal 0.83-4.51 [facility] Comment on above: Order Comment: CHAKA MALLORY ORDER ALL LABSNP.KROBERTS ORDERED LIPID AND LIVER Performed By: #### L 501.4700, L500.4050, L506.1000, L501.9520, L502.0500, L500.4100, L501.9985, L100.0100 ####[facility] [address] [place], [address] Absolute Neut 4.9 X10 3/uL Normal 2.0-7.7 [facility] Comment on above: Order Comment: CHAKA MALLORY ORDER ALL LABSNP.KROBERTS ORDERED LIPID AND LIVER Performed By: #### L 501.4700, L500.4050, L506.1000, L501.9520, L502.0500, L500.4100, L501.9985, L100.0100 ####[facility] [address] [place], [address] Basophils/100 WBC (Bld) 0.9 % Normal 0-1 [facility] Comment on above: Order Comment: CHAKA MALLORY ORDER ALL LABSNP.KROBERTS ORDERED LIPID AND LIVER Performed By: #### L 501.4700, L500.4050, L506.1000, L501.9520, L502.0500, L500.4100, L501.9985, L100.0100 ####[facility] [address] [place], [address] Eosinophils/100 WBC (Bld) 1.8 % Normal 0-5 [facility] Comment on above: Order Comment: CHAKA MALLORY ORDER ALL LABSNP.KROBERTS ORDERED LIPID AND LIVER Performed By: #### L 501.4700, L500.4050, L506.1000, L501.9520, L502.0500, L500.4100, L501.9985, L100.0100 ####[facility] [address] [place], [place], [phone] Erythrocyte distribution width (RBC) [Ratio] 13.3 % Normal 11.6-14.6 [facility] Comment on above: Order Comment: CHAKA MALLORY ORDER ALL LABSNP.KROBERTS ORDERED LIPID AND LIVER Performed By: #### L 501.4700, L500.4050, L506.1000, L501.9520, L502.0500, L500.4100, L501.9985, L100.0100 ####[facility] [address] [place], [place], [phone] Hematocrit (Bld) [Volume fraction] 42.2 % Normal 37-47 [facility] Comment on above: Order Comment: CHAKA MALLORY ORDER ALL LABSNP.KROBERTS ORDERED LIPID AND LIVER Performed By: #### L 501.4700, L500.4050, L506.1000, L501.9520, L502.0500, L500.4100, L501.9985, L100.0100 ####[facility] [address] [place], [place], [phone] Hemoglobin (Bld) [Mass/Vol] 13.5 g/dL Normal 12.0-15.0 [facility] Comment on above: Order Comment: CHAKA MALLORY ORDER ALL LABSNP.KROBERTS ORDERED LIPID AND LIVER Performed By: #### L 501.4700, L500.4050, L506.1000, L501.9520, L502.0500, L500.4100, L501.9985, L100.0100 ####[facility] [address] [place], [address] IG% 0.400 Normal 0.0-0.9 [facility] Comment on above: Order Comment: CHAKA MALLORY ORDER ALL LABSNP.KROBERTS ORDERED LIPID AND LIVER Result Comment: IG% - Immature Granulocytes (promyelocytes, myelocytes andmetamyelocytes) > 1% indicates that a LEFT SHIFT is Present. Performed By: #### L 501.4700, L500.4050, L506.1000, L501.9520, L502.0500, L500.4100, L501.9985, L100.0100 ####[facility] [address] [place], [address] Lymphocytes/100 WBC (Bld) 28.6 % Normal 19-41 [facility] Comment on above: Order Comment: CHAKA MALLORY ORDER ALL LABSNP.KROBERTS ORDERED LIPID AND LIVER Performed By: #### L 501.4700, L500.4050, L506.1000, L501.9520, L502.0500, L500.4100, L501.9985, L100.0100 ####[facility] [address] [place], [address] MCH (RBC) [Entitic mass] 28.2 pg Normal 27.0-32.0 [facility] Comment on above: Order Comment: CHAKA MALLORY ORDER ALL LABSNP.KROBERTS ORDERED LIPID AND LIVER Performed By: #### L 501.4700, L500.4050, L506.1000, L501.9520, L502.0500, L500.4100, L501.9985, L100.0100 ####[facility] [address] [place], [address] MCHC (RBC) [Mass/Vol] 32.0 g/dL Normal 32-36 [facility] Comment on above: Order Comment: CHAKA MALLORY ORDER ALL LABSNP.KROBERTS ORDERED LIPID AND LIVER Performed By: #### L 501.4700, L500.4050, L506.1000, L501.9520, L502.0500, L500.4100, L501.9985, L100.0100 ####[facility] [address] [place], [address] MCV (RBC) [Entitic vol] 88.3 fL Normal 81-99 [facility] Comment on above: Order Comment: CHAKA MALLORY ORDER ALL LABSNP.KROBERTS ORDERED LIPID AND LIVER Performed By: #### L 501.4700, L500.4050, L506.1000, L501.9520, L502.0500, L500.4100, L501.9985, L100.0100 ####[facility] [address] [facility] [place], [address] Monocytes/100 WBC (Bld) 5.6 % Normal 0-10 [facility] Comment on above: Order Comment: CHAKA MALLORY ORDER ALL LABSNP.KROBERTS ORDERED LIPID AND LIVER Performed By: #### L 501.4700, L500.4050, L506.1000, L501.9520, L502.0500, L500.4100, L501.9985, L100.0100 ####[facility] [address] [facility] [place], [address] Neutrophils/100 WBC (Bld) 62.7 % Normal 47-70 [facility] Comment on above: Order Comment: CHAKA MALLORY ORDER ALL LABSNP.KROBERTS ORDERED LIPID AND LIVER Performed By: #### L 501.4700, L500.4050, L506.1000, L501.9520, L502.0500, L500.4100, L501.9985, L100.0100 ####[facility] [address] [facility] [place], [address] Nucleated RBC (Bld) [#/Vol] 0 10*3/uL Normal 0-5 [facility] Comment on above: Order Comment: CHAKA MALLORY ORDER ALL LABSNP.KROBERTS ORDERED LIPID AND LIVER Performed By: #### L 501.4700, L500.4050, L506.1000, L501.9520, L502.0500, L500.4100, L501.9985, L100.0100 ####[facility] [address] [place], [address] Platelet mean volume (Bld) [Entitic vol] 9.0 fL Normal 6.2-12.0 [facility] Comment on above: Order Comment: CHAKA MALLORY ORDER ALL LABSNP.KROBERTS ORDERED LIPID AND LIVER Performed By: #### L 501.4700, L500.4050, L506.1000, L501.9520, L502.0500, L500.4100, L501.9985, L100.0100 ####[facility] [address] [place], [place], [phone] Platelets (Bld) [#/Vol] 279 10*3/uL Normal 150-450 [facility] Comment on above: Order Comment: CHAKA MALLORY ORDER ALL LABSNP.KROBERTS ORDERED LIPID AND LIVER Performed By: #### L 501.4700, L500.4050, L506.1000, L501.9520, L502.0500, L500.4100, L501.9985, L100.0100 ####[facility] [address] [place], [place], [phone] RBC (Bld) [#/Vol] 4.78 10*6/uL Normal 4.2-5.4 [facility] Comment on above: Order Comment: CHAKA MALLORY ORDER ALL LABSNP.KROBERTS ORDERED LIPID AND LIVER Performed By: #### L 501.4700, L500.4050, L506.1000, L501.9520, L502.0500, L500.4100, L501.9985, L100.0100 ####[facility] [address] [place], [address] RDW SD 42.9 fl Normal 35.1-43.9 [facility] Comment on above: Order Comment: CHAKA MALLORY ORDER ALL LABSNP.KROBERTS ORDERED LIPID AND LIVER Performed By: #### L 501.4700, L500.4050, L506.1000, L501.9520, L502.0500, L500.4100, L501.9985, L100.0100 ####[facility] [address] [place], [place], [phone] WBC (Bld) [#/Vol] 7.8 10*3/uL Normal 4.4-11.0 [facility] Comment on above: Order Comment: CHAKA MALLORY ORDER ALL LABSNP.KROBERTS ORDERED LIPID AND LIVER Performed By: #### L 501.4700, L500.4050, L506.1000, L501.9520, L502.0500, L500.4100, L501.9985, L100.0100 ####[facility] [address] [place], [place], [phone] Carbon dioxide measurementOr dered By: [facility] Sarah Toth on 07-02-2024 CO2 [Moles/Vol] 25.0 mmol/L Normal 21.0-32.0 [facility] Comment on above: Order Comment: CHAKA MALLORY ORDER ALL LABSNP.DONTAEOBERTS ORDERED LIPID AND LIVER Performed By: #### L 501.4700, L500.4050, L506.1000, L501.9520, L502.0500, L500.4100, L501.9985, L100.0100 ####[facility] [address] [place], [place], [phone] Cardiology Visit Reporton Cardiology Visit Report Normal [facility] Chloride measurementOrdered By: [facility] Sarah Toth on 07-02-2024 Chloride [Moles/Vol] 103 mmol/L Normal 98-107 [facility] Comment on above: Order Comment: CHAKA MALLORY ORDER ALL LABSNP.KROBERTS ORDERED LIPID AND LIVER Performed By: #### L 501.4700, L500.4050, L506.1000, L501.9520, L502.0500, L500.4100, L501.9985, L100.0100 ####[facility] [address] [place], [address] Comprehensive Metabolic Prof ilon 07-02-2024 ALK P 78 U/L Normal 45-117 [facility] Comment on above: Order Comment: CHAKA MALLORY ORDER ALL LABSNP.KROBERTS ORDERED LIPID AND LIVER Performed By: #### L 501.4700, L500.4050, L506.1000, L501.9520, L502.0500, L500.4100, L501.9985, L100.0100 ####[facility] [address] [place], [address] BUN/CRE 22.8 RATIO High 10-20 [facility] Comment on above: Order Comment: CHAKA MALLORY ORDER ALL LABSNP.KROBERTS ORDERED LIPID AND LIVER Performed By: #### L 501.4700, L500.4050, L506.1000, L501.9520, L502.0500, L500.4100, L501.9985, L100.0100 ####[facility] [address] [place], [address] CA,Total 9.4 mg/dL Normal 8.5-10.1 [facility] Comment on above: Order Comment: CHAKA MALLORY ORDER ALL LABSNP.KROBERTS ORDERED LIPID AND LIVER Performed By: #### L 501.4700, L500.4050, L506.1000, L501.9520, L502.0500, L500.4100, L501.9985, L100.0100 ####[facility] [address] [place], [address] EST GFR - AA 77 mL/min Normal >60 [facility] Comment on above: Order Comment: CHAKA MALLORY ORDER ALL LABSNP.KROBERTS ORDERED LIPID AND LIVER Result Comment: Afri can Nauruan GFR Calc Performed By: #### L 501.4700, L500.4050, L506.1000, L501.9520, L502.0500, L500.4100, L501.9985, L100.0100 ####[facility] [address] [place], [address] GAP 8 Normal 5-15 [facility] Comment on above: Order Comment: CHAKA MALLORY ORDER ALL LABSNP.KROBERTS ORDERED LIPID AND LIVER Performed By: #### L 501.4700, L500.4050, L506.1000, L501.9520, L502.0500, L500.4100, L501.9985, L100.0100 ####[facility] [address] [place], [place], [phone] T PROT 6.8 g/dL Normal 6.4-8.2 [facility] Comment on above: Order Comment: CAHKA MALLORY ORDER ALL LABSNP.KROBERTS ORDERED LIPID AND LIVER Performed By: #### L 501.4700, L500.4050, L506.1000, L501.9520, L502.0500, L500.4100, L501.9985, L100.0100 ####[facility] [address] [place], [place], [phone] Comprehensive Metabolic Prof ilOrdered By: ARIA Toth on 07-02-2024 AST [Catalytic activity/Vol] 10 U/L Low 15-37 [facility] Comment on above: Order Comment: CHAKA MALLORY ORDER ALL LABSNP.KROBERTS ORDERED LIPID AND LIVER Performed By: #### L 501.4700, L500.4050, L506.1000, L501.9520, L502.0500, L500.4100, L501.9985, L100.0100 ####[facility] [address] [place], [place], [phone] Eosinophil percentageOrdered By: ARIA Toth on 07-02-2024 Eosinophils/100 WBC (Bld) 1.8 % 0-5 [facility] Erythrocyte distribution wid th ratioOrdered By: [facility] Sarah Toth on 07-02-2024 Erythrocyte distribution width (RBC) [Ratio] 13.3 % 11.6-14.6 [facility] Erythrocyte distribution wid th standard deviationOrdered By: [facility] Sarah Toth on 07-02-2024 Erythrocyte distribution width (RBC) [Ratio] 42.9 fl 35.1-43.9 [facility] Glomerular filtration rate ( GFR) estimationOrdered By: [facility] Sarah Toth on 07-02-2024 GFR/1.73 sq M.predicted among non-blacks MDRD (S/P/Bld) [Vol rate/Area] 64 mL/min/{1.73_m2} Normal >60 [facility] Comment on above: Non- GFR Calc Order Comment: CHAKA MALLORY ORDER ALL LABSNP.MARQUES ORDERED LIPID AND LIVER Result Comment: Non- GFR Calc Performed By: #### L 501.4700, L500.4050, L506.1000, L501.9520, L502.0500, L500.4100, L501.9985, L100.0100 ####[facility] [address] [facility] [place], [place], [phone] Glucose measurementOrdered B y: [facility] Sarah Toth on 07-02-2024 Glucose [Mass/Vol] 154 mg/dL High 74-106 [facility] Comment on above: Fasting Glucose resu lt greater than or equal to 126 mg/dL suggests DIABETES MELLITUS per A.D.A. criteria. Order Comment: CHAKA MALLORY ORDER ALL LABSNP.KROBERTS ORDERED LIPID AND LIVER Result Comment: Fast ing Glucose result greater than or equal to 126 mg/dLsuggests DIABETES MELLITUS per A.D.A. criteria. Performed By: #### L 501.4700, L500.4050, L506.1000, L501.9520, L502.0500, L500.4100, L501.9985, L100.0100 ####[facility] [address] [place], [place], [phone] Hematocrit Auto (Bld) [Volum e fraction]Ordered By: [facility] Sarah Toth on 07-02-2024 Hematocrit (Bld) [Volume fraction] 42.2 % 37-47 [facility] Hemoglobin A1con 07-02-2024 HbA1c (Bld) [Mass fraction] 7.0 % High 3.8-5.6 [facility] Comment on above: Order Comment: CHAKA MALLORY ORDER ALL LABSNP.KROBERTS ORDERED LIPID AND LIVER Result Comment: Norm al < 5.7 % Prediabetic 5.7 - 6.4 % Diabetic >or= 6.5 % Please note range changes. Performed By: #### L 501.4700, L500.4050, L506.1000, L501.9520, L502.0500, L500.4100, L501.9985, L100.0100 ####[facility] [address] [place], [place], [phone] Hemoglobin A1c percentageOrd ered By: [facility] Sarah Toth on 07-02-2024 HbA1c (Bld) [Mass fraction] 7.0 % High 3.8-5.6 [facility] Comment on above: Normal < 5.7 % Predi abetic 5.7 - 6.4 % Diabetic >or= 6.5 % Please note range changes. Hemoglobin measurementOrdere d By: [facility] Sarah Toth on 07-02-2024 Hemoglobin (Bld) [Mass/Vol] 13.5 g/dL 12.0-15.0 [facility] High density lipoprotein (HD L) measurementOrdered By: [facility] on 07-02-2024 Cholesterol in HDL [Mass/Vol] 55 mg/dL Normal [facility] Comment on above: The drugs N-Acetylcy steine and Metamizole may falsely depress this assay. Reference Range HDL <40 mg/dL Low HDL Cholesterol HDL >or= 60 mg/dL High HDL Cholesterol Order Comment: CHAKA MALLORY ORDER ALL LABSNP.KROBERTS ORDERED LIPID AND LIVER Result Comment: The drugs N-Acetylcysteine and Metamizole may falselydepress this assay. Reference Range HDL <40 mg/dL Low HDL Cholesterol HDL >or= 60 mg/dL High HDL Cholesterol Performed By: #### L 501.4700, L500.4050, L506.1000, L501.9520, L502.0500, L500.4100, L501.9985, L100.0100 ####[facility] [address] [place], [address] Immature granulocytes/100 WB C Auto (Bld)Ordered By: [facility] Sarah Toth on 07-02-2024 Immature granulocytes/100 WBC (Bld) 0.400 % 0.0-0.9 [facility] Comment on above: IG% - Immature Granu locytes (promyelocytes, myelocytes and metamyelocytes) > 1% indicates that a LEFT SHIFT is Present. Lipid Profileon 07-02-2024 Cholesterol in VLDL [Mass/Vol] 38 mg/dL Normal 5-40 [facility] Comment on above: Order Comment: CHAKA MALLORY ORDER ALL LABSDIVYA ORDERED LIPID AND LIVER Performed By: #### L 501.4700, L500.4050, L506.1000, L501.9520, L502.0500, L500.4100, L501.9985, L100.0100 ####[facility] [address] [place], [address] Low density lipoprotein (LDL ) cholesterol measurementOrdered By: [facility] Sarah Toth on 07-02-2024 Cholesterol in LDL [Mass/Vol] 110 mg/dL Normal 0-130 [facility] Comment on above: Order Comment: CHAKA MALLORY ORDER ALL LABSNP.KROBERTS ORDERED LIPID AND LIVER Performed By: #### L 501.4700, L500.4050, L506.1000, L501.9520, L502.0500, L500.4100, L501.9985, L100.0100 ####[facility] [address] [facility] [place], [address] MCV (mean corpuscular volume ) determinationOrdered By: [facility] Sarah Toth on 07-02-2024 MCV (RBC) [Entitic vol] 88.3 fL 81-99 [facility] Mean corpuscular hemoglobin (MCH) determinationOrdered By: [facility] Sarah Toth on 07-02-2024 MCH (RBC) [Entitic mass] 28.2 pg 27.0-32.0 [facility] Mean corpuscular hemoglobin concentration (MCHC) determinationOrdered By: [facility] Sarah Toth on 07-02-2024 MCHC (RBC) [Mass/Vol] 32.0 g/dL 32-36 [facility] Mean platelet volume determi nationOrdered By: [facility] Sarah Toth on 07-02-2024 Platelet mean volume (Bld) [Entitic vol] 9.0 fL 6.2-12.0 [facility] Microalbumin,Random Urineon 07-02-2024 MICROALBUMIN,UR 778.0 mg/L Normal NO RANGE EST. [facility] Comment on above: Order Comment: CHAKA MALLORY ORDER ALL LABSNPHAYDEN ORDERED LIPID AND LIVER Performed By: #### L 501.4700, L500.4050, L506.1000, L501.9520, L502.0500, L500.4100, L501.9985, L100.0100 ####[facility] [address] [place], [address] Monocyte percentageOrdered B y: [facility] Sarah Toth on 07-02-2024 Monocytes/100 WBC (Bld) 5.6 % 0-10 [facility] Neutrophil percentageOrdered By: [facility] Sarah Toth on 07-02-2024 Neutrophils/100 WBC (Bld) 62.7 % 47-70 [facility] Nucleated red blood cell per centageOrdered By: [facility] Sarah Toth on 07-02-2024 Nucleated RBC/100 WBC (Bld) [Ratio] 0 % 0-5 [facility] Platelet countOrdered By: [facility] Sarah Toth on 07-02-2024 Platelets (Bld) [#/Vol] 279 10*3/uL 150-450 [facility] Potassium measurementOrdered By: [facility] Sarah Toth on 07-02-2024 Potassium [Moles/Vol] 4.2 mmol/L Normal 3.5-5.1 [facility] Comment on above: Order Comment: CHAKA MALLORY ORDER ALL LABSNP.KROBERTS ORDERED LIPID AND LIVER Performed By: #### L 501.4700, L500.4050, L506.1000, L501.9520, L502.0500, L500.4100, L501.9985, L100.0100 ####[facility] [address] [place], [address] RBC Auto (Bld) [#/Vol]Ordere d By: [facility] Sarah Toth on 07-02-2024 RBC (Bld) [#/Vol] 4.78 10*6/uL 4.2-5.4 [facility] Serum anion gap measurementO rdered By: [facility] Sarah Toth on 07-02-2024 Anion gap [Moles/Vol] 8 mmol/L 5-15 [facility] Serum globulin measurementOr dered By: [facility] Sarah Toth on 07-02-2024 Globulin (S) [Mass/Vol] 3.6 g/dL Normal 2.2-4.2 [facility] Comment on above: Order Comment: CHAKA MALLORY ORDER ALL [facility]SNP.[facility] ORDERED LIPID AND LIVER Performed By: #### L 501.4700, L500.4050, L506.1000, L501.9520, L502.0500, L500.4100, L501.9985, L100.0100 ####[facility] [address] [place], [address] Serum or plasma alanine toribio otransferase (ALT) measurementOrdered By: [facility] Sarah Toth on 07-02-2024 ALT [Catalytic activity/Vol] 24 U/L Normal 13-56 [facility] Comment on above: Order Comment: CHAKA MALLORY ORDER ALL LABSNP.KROBERTS ORDERED LIPID AND LIVER Performed By: #### L 501.4700, L500.4050, L506.1000, L501.9520, L502.0500, L500.4100, L501.9985, L100.0100 ####[facility] [address] [place], [address] Serum or plasma albumin gavi urement (mass/volume)Ordered By: [facility] on 07-02-2024 Albumin [Mass/Vol] 3.2 g/dL Normal 3.2-5.0 [facility] Comment on above: Order Comment: CHAKA MALLORY ORDER ALL LABSNPMARQUES ORDERED LIPID AND LIVER Performed By: #### L 501.4700, L500.4050, L506.1000, L501.9520, L502.0500, L500.4100, L501.9985, L100.0100 ####[facility] [address] [place], [place], [phone] Serum or plasma alkaline david sphatase measurementOrdered By: [facility] on 07-02-2024 ALP [Catalytic activity/Vol] 78 U/L 45-117 [facility] Serum or plasma calcium gavi urement (mass/volume)Ordered By: [facility] on 07-02-2024 Calcium [Mass/Vol] 9.4 mg/dL 8.5-10.1 [facility] Serum or plasma cholesterol measurement (mass/volume)Ordered By: [facility] on 07-02-2024 Cholesterol [Mass/Vol] 203 mg/dL High 200 [facility] Comment on above: <200 mg/dL Desirable 200-240 mg/dL Borderline >240 mg/dL High Risk Order Comment: CHAKA MALLORY ORDER ALL LABSNP.MYRONTS ORDERED LIPID AND LIVER Result Comment: <200 mg/dL Desirable 200-240 mg/dL Borderline >240 mg/dL High Risk Performed By: #### L 501.4700, L500.4050, L506.1000, L501.9520, L502.0500, L500.4100, L501.9985, L100.0100 ####[facility] [address] [place], [address] Serum or plasma creatinine m easurement (mass/volume)Ordered By: [facility] Sarah Toth on 07-02-2024 Creatinine [Mass/Vol] 0.92 mg/dL Normal 0.55-1.02 [facility] Comment on above: The validity of the calculated GFR & GFRAA in patients over 70 years has not been determined. Clinical correlation is essential. Order Comment: CHAKA MALLORY ORDER ALL LABSAGATHA.MARQUES ORDERED LIPID AND LIVER Result Comment: The validity of the calculated GFR GFRAA in patients over70 years has not been determined. Clinical correlation isessential. Performed By: #### L 501.4700, L500.4050, L506.1000, L501.9520, L502.0500, L500.4100, L501.9985, L100.0100 ####[facility] [address] [place], [place], [phone] Serum or plasma thyroid stim ulating hormone (TSH) measurement (units/volume)Ordered By: [facility] Sarah Toth on 07-02-2024 TSH Qn 2.320 uIU/mL 0.358-3.740 [facility] Serum or plasma urea nitroge n measurement (mass/volume)Ordered By: [facility] Sarah Toth on 07-02-2024 Urea nitrogen [Mass/Vol] 21 mg/dL High 7-18 [facility] Comment on above: Order Comment: CHAKA MALLORY ORDER ALL LABSNP.MARQUES ORDERED LIPID AND LIVER Performed By: #### L 501.4700, L500.4050, L506.1000, L501.9520, L502.0500, L500.4100, L501.9985, L100.0100 ####[facility] [address] [place], [place], [phone] Sodium levelOrdered By: [facility] Sarah Toth on 07-02-2024 Sodium [Moles/Vol] 136 mmol/L Normal 136-145 [facility] Comment on above: Order Comment: CHAKA MALLORY ORDER ALL LABSNP.MARQUES ORDERED LIPID AND LIVER Performed By: #### L 501.4700, L500.4050, L506.1000, L501.9520, L502.0500, L500.4100, L501.9985, L100.0100 ####[facility] [address] [place], [place], [phone] Thyroid Stim Hormone (TSH)on 07-02-2024 TSH 2.320 uIU/mL Normal 0.358-3.740 [facility] Comment on above: Order Comment: CHAKA MALLORY ORDER ALL LABSNP.MYRONTS ORDERED LIPID AND LIVER Performed By: #### L 501.4700, L500.4050, L506.1000, L501.9520, L502.0500, L500.4100, L501.9985, L100.0100 ####[facility] [address] [place], [place], [phone] Total proteinOrdered By: [facility] Sarah Toth on 07-02-2024 Protein [Mass/Vol] 6.8 g/dL 6.4-8.2 [facility] Triglycerides measurementOrd ered By: [facility] Sarah Toth on 07-02-2024 Triglyceride [Mass/Vol] 189 mg/dL Normal [facility] Comment on above: The drugs N-Acetylcy steine and Metamizole may falsely depress this assay.Serum Triglycerides Reference Interval Normal <150 mg/dL Borderline high 150 - 199 mg/dL High 200 - 499 mg/dL Very High > or = 500 mg/dL Order Comment: CHAKA MALLORY ORDER ALL LABSNP.MARQUES ORDERED LIPID AND LIVER Result Comment: The drugs N-Acetylcysteine and Metamizole may falselydepress this assay.Serum Triglycerides Reference Interval Normal <150 mg/dL Borderline high 150 - 199 mg/dL High 200 - 499 mg/dL Very High > or = 500 mg/dL Performed By: #### L 501.4700, L500.4050, L506.1000, L501.9520, L502.0500, L500.4100, L501.9985, L100.0100 ####[facility] [address] [place], [place], [phone] Very low density lipoprotein (VLDL) cholesterol measurementOrdered By: [facility] Sarah Navneet on 07-02-2024 Very low density lipoprotein (VLDL) cholesterol measurement 38 mg/dL 5-40 [facility] Vitamin D,25 Hydroxyon 07-02 Vitamin D 25-OH 36.4 ng/mL Normal [facility] Comment on above: Order Comment: CHAKA MALLORY ORDER ALL LABSNP.MARQUES ORDERED LIPID AND LIVER Result Comment: Carly min D 25(OH) Status Range Deficiency <20 ng/mL (50nmol/L) Insufficiency 20 - 30 ng/mL (50 - 75 nmol/L) Sufficiency 30 - 100 ng/mL (75 - 250 nmol/L) Toxicity >100 ng/mL (>250 nmol/L) Performed By: #### L 501.4700, L500.4050, L506.1000, L501.9520, L502.0500, L500.4100, L501.9985, L100.0100 ####[facility] [address] [place], [place], [address] White blood cell (WBC) count Ordered By: [facility] Sarah Navneet on 07-02-2024 WBC (Bld) [#/Vol] 7.8 10*3/uL 4.4-11.0 [facility] Endocrinology Visit Reporton 04-16-2024 Endocrinology Visit Report Normal [facility] Venous Duplex US, Unilateral on 04-10-2024 Venous Duplex US, Unilateral Normal [facility] Cardiology Visit Reporton Cardiology Visit Report Normal [facility] Bedside Glucoseon 02-18-2024 FINGERSTICK GLU 223 mg/dL High 74-106 [facility] Comment on above: Result Comment: AMARI GEMENT OF PATIENT CARE PER NURSING PROTOCOL Performed By: #### L 501.080 ####[facility] [address] [place], [place], [address] FINGERSTICK GLU 291 mg/dL High 74-106 [facility] Comment on above: Result Comment: AMARI GEMENT OF PATIENT CARE PER NURSING PROTOCOL Performed By: #### L 501.080 ####[facility] [address] [place], [address] FINGERSTICK GLU 317 mg/dL High 74-106 [facility] Comment on above: Result Comment: AMAIR GEMENT OF PATIENT CARE PER NURSING PROTOCOL Performed By: #### L 501.080 ####[facility] [address] [place], [address] FINGERSTICK GLU 301 mg/dL High 74-106 [facility] Comment on above: Result Comment: AMARI GEMENT OF PATIENT CARE PER NURSING PROTOCOL Performed By: #### L 501.080 ####[facility] [address] [place], [address] Brain without Contraston Brain without Contrast Normal [facility] CBC W/Diff, Automatedon Absolute Lymph 0.77 X10 3/uL Low 0.83-4.51 [facility] Comment on above: Performed By: #### L 501.9985, L100.0100, L500.4050, L500.4100, L501.9520 ####[facility] [address] [place], [address] Absolute Neut 11.7 X10 3/uL High 2.0-7.7 [facility] Comment on above: Performed By: #### L 501.9985, L100.0100, L500.4050, L500.4100, L501.9520 ####[facility] [address] [place], [address] Basophils/100 WBC (Bld) 0.2 % Normal 0-1 [facility] Comment on above: Performed By: #### L 501.9985, L100.0100, L500.4050, L500.4100, L501.9520 ####[facility] [address] [place], [address] Eosinophils/100 WBC (Bld) 0.1 % Normal 0-5 [facility] Comment on above: Performed By: #### L 501.9985, L100.0100, L500.4050, L500.4100, L501.9520 ####[facility] [address] [place], [address] Erythrocyte distribution width (RBC) [Ratio] 12.9 % Normal 11.6-14.6 [facility] Comment on above: Performed By: #### L 501.9985, L100.0100, L500.4050, L500.4100, L501.9520 ####[facility] [address] [place], [address] Hematocrit (Bld) [Volume fraction] 49.0 % High 37-47 [facility] Comment on above: Performed By: #### L 501.9985, L100.0100, L500.4050, L500.4100, L501.9520 ####[facility] [address] [place], [address] Hemoglobin (Bld) [Mass/Vol] 15.8 g/dL High 12.0-15.0 [facility] [place] Comment on above: Performed By: #### L 501.9985, L100.0100, L500.4050, L500.4100, L501.9520 ####[facility] [address] [place], [address] IG% 0.200 Normal 0.0-0.9 [facility] Comment on above: Result Comment: IG% - Immature Granulocytes (promyelocytes, myelocytes andmetamyelocytes) > 1% indicates that a LEFT SHIFT is Present. Performed By: #### L 501.9985, L100.0100, L500.4050, L500.4100, L501.9520 ####[facility] [address] [place], [address] Lymphocytes/100 WBC (Bld) 6.0 % Low 19-41 [facility] Comment on above: Performed By: #### L 501.9985, L100.0100, L500.4050, L500.4100, L501.9520 ####[facility] [address] [place], [address] MCH (RBC) [Entitic mass] 27.8 pg Normal 27.0-32.0 [facility] Comment on above: Performed By: #### L 501.9985, L100.0100, L500.4050, L500.4100, L501.9520 ####[facility] [address] [place], [address] MCHC (RBC) [Mass/Vol] 32.2 g/dL Normal 32-36 [facility] Comment on above: Performed By: #### L 501.9985, L100.0100, L500.4050, L500.4100, L501.9520 ####[facility] [address] [place], [address] MCV (RBC) [Entitic vol] 86.3 fL Normal 81-99 [facility] Comment on above: Performed By: #### L 501.9985, L100.0100, L500.4050, L500.4100, L501.9520 ####[facility] [address] [place], [address] Monocytes/100 WBC (Bld) 2.5 % Normal 0-10 [facility] Comment on above: Performed By: #### L 501.9985, L100.0100, L500.4050, L500.4100, L501.9520 ####[facility] [address] [place], [address] Neutrophils/100 WBC (Bld) 91.0 % High 47-70 [facility] Comment on above: Performed By: #### L 501.9985, L100.0100, L500.4050, L500.4100, L501.9520 ####[facility] [address] [place], [address] Nucleated RBC (Bld) [#/Vol] 0 10*3/uL Normal 0-5 [facility] Comment on above: Performed By: #### L 501.9985, L100.0100, L500.4050, L500.4100, L501.9520 ####[facility] [address] [place], [address] Platelet mean volume (Bld) [Entitic vol] 9.5 fL Normal 6.2-12.0 [facility] Comment on above: Performed By: #### L 501.9985, L100.0100, L500.4050, L500.4100, L501.9520 ####[facility] [address] [place], [address] Platelets (Bld) [#/Vol] 308 10*3/uL Normal 150-450 [facility] Comment on above: Performed By: #### L 501.9985, L100.0100, L500.4050, L500.4100, L501.9520 ####[facility] [address] [place], [address] RBC (Bld) [#/Vol] 5.68 10*6/uL High 4.2-5.4 [facility] Comment on above: Performed By: #### L 501.9985, L100.0100, L500.4050, L500.4100, L501.9520 ####[facility] [address] [place], [address] RDW SD 40.1 fl Normal 35.1-43.9 [facility] Comment on above: Performed By: #### L 501.9985, L100.0100, L500.4050, L500.4100, L501.9520 ####[facility] [address] [place], [address] WBC (Bld) [#/Vol] 12.9 10*3/uL High 4.4-11.0 [facility] Comment on above: Performed By: #### L 501.9985, L100.0100, L500.4050, L500.4100, L501.9520 ####[facility] [address] [place], [address] Cardiac Cath Diagnosticon Cardiac Cath Diagnostic Normal [facility] Comprehensive Metabolic Prof ilon 02-18-2024 Albumin [Mass/Vol] 3.5 g/dL Normal 3.2-5.0 [facility] Comment on above: Performed By: #### L 501.9985, L100.0100, L500.4050, L500.4100, L501.9520 ####[facility] [address] [place], [address] Albumin/Globulin [Mass ratio] 0.9 {ratio} Normal 0.9-2.4 [facility] Comment on above: Performed By: #### L 501.9985, L100.0100, L500.4050, L500.4100, L501.9520 ####[facility] [address] [place], [address] ALK P 102 U/L Normal 45-117 [facility] Comment on above: Performed By: #### L 501.9985, L100.0100, L500.4050, L500.4100, L501.9520 ####[facility] [address] [place], [address] ALT [Catalytic activity/Vol] 16 U/L Normal 13-56 [facility] Comment on above: Performed By: #### L 501.9985, L100.0100, L500.4050, L500.4100, L501.9520 ####[facility] [address] [place], [address] AST [Catalytic activity/Vol] 12 U/L Low 15-37 [facility] Comment on above: Performed By: #### L 501.9985, L100.0100, L500.4050, L500.4100, L501.9520 ####[facility] [address] [place], [address] Bilirubin [Mass/Vol] 1.40 mg/dL High 0.20-1.00 [facility] Comment on above: Result Comment: For patients on eltrombopag therapy, use of Dimension [place] TBIL is not recommended. Performed By: #### L 501.9985, L100.0100, L500.4050, L500.4100, L501.9520 ####[facility] [address] [place], [address] BUN/CRE 15.5 RATIO Normal 10-20 [facility] Comment on above: Performed By: #### L 501.9985, L100.0100, L500.4050, L500.4100, L501.9520 ####[facility] [address] [place], [address] CA,Total 8.7 mg/dL Normal 8.5-10.1 [facility] Comment on above: Performed By: #### L 501.9985, L100.0100, L500.4050, L500.4100, L501.9520 ####[facility] [address] [place], [address] Chloride [Moles/Vol] 99 mmol/L Normal 98-107 [facility] Comment on above: Performed By: #### L 501.9985, L100.0100, L500.4050, L500.4100, L501.9520 ####[facility] [address] [place], [address] CO2 [Moles/Vol] 22.0 mmol/L Normal 21.0-32.0 [facility] Comment on above: Performed By: #### L 501.9985, L100.0100, L500.4050, L500.4100, L501.9520 ####[facility] [address] [place], [address] Creatinine [Mass/Vol] 0.90 mg/dL Normal 0.55-1.02 [facility] Comment on above: Result Comment: The validity of the calculated GFR GFRAA in patients over70 years has not been determined. Clinical correlation isessential. Performed By: #### L 501.9985, L100.0100, L500.4050, L500.4100, L501.9520 ####[facility] [address] [place], [address] ECRCL 69.77 ml/min Normal [facility] Comment on above: Performed By: #### L 501.9985, L100.0100, L500.4050, L500.4100, L501.9520 ####[facility] [address] [place], [address] EST GFR - AA 79 mL/min Normal >60 [facility] Comment on above: Result Comment: Afri can Nauruan GFR Calc Performed By: #### L 501.9985, L100.0100, L500.4050, L500.4100, L501.9520 ####[facility] [address] [place], [address] GAP 14 Normal 5-15 [facility] Comment on above: Performed By: #### L 501.9985, L100.0100, L500.4050, L500.4100, L501.9520 ####[facility] [address] [place], [address] GFR/1.73 sq M.predicted among non-blacks MDRD (S/P/Bld) [Vol rate/Area] 65 mL/min/{1.73_m2} Normal >60 [facility] Comment on above: Result Comment: Non- GFR Calc Performed By: #### L 501.9985, L100.0100, L500.4050, L500.4100, L501.9520 ####[facility] [address] [place], [address] Globulin (S) [Mass/Vol] 3.7 g/dL Normal 2.2-4.2 [facility] Comment on above: Performed By: #### L 501.9985, L100.0100, L500.4050, L500.4100, L501.9520 ####[facility] [address] [place], [address] Glucose [Mass/Vol] 306 mg/dL High 74-106 [facility] Comment on above: Result Comment: Gluc ose result greater than or equal to 200 mg/dLsuggests DIABETES MELLITUS per A.D.A. criteria. Performed By: #### L 501.9985, L100.0100, L500.4050, L500.4100, L501.9520 ####[facility] [address] [place], [address] Potassium [Moles/Vol] 3.7 mmol/L Normal 3.5-5.1 [facility] Comment on above: Performed By: #### L 501.9985, L100.0100, L500.4050, L500.4100, L501.9520 ####[facility] [address] [place], [address] Sodium [Moles/Vol] 135 mmol/L Low 136-145 [facility] Comment on above: Performed By: #### L 501.9985, L100.0100, L500.4050, L500.4100, L501.9520 ####[facility] [address] [place], [address] T PROT 7.2 g/dL Normal 6.4-8.2 [facility] Comment on above: Performed By: #### L 501.9985, L100.0100, L500.4050, L500.4100, L501.9520 ####[facility] [address] [place], [address] Urea nitrogen [Mass/Vol] 14 mg/dL Normal 7-18 [facility] Comment on above: Performed By: #### L 501.9985, L100.0100, L500.4050, L500.4100, L501.9520 ####[facility] [address] [place], [address] Consultation - Cardiologyon 02-18-2024 Consultation - Cardiology Normal [facility] Discharge Instructionon Discharge Instruction Normal [facility] Hemoglobin A1con 02-18-2024 HbA1c (Bld) [Mass fraction] 7.3 % High 3.8-5.6 [facility] Comment on above: Result Comment: Norm al < 5.7 % Prediabetic 5.7 - 6.4 % Diabetic >or= 6.5 % Please note range changes. Performed By: #### L 501.9985, L100.0100, L500.4050, L500.4100, L501.9520 ####[facility] [address] [place], [address] L501.4020on 02-18-2024 TROPONIN-I HS 877 pg/mL Invalid Interpretation Code 3.0-54.0 [facility] Comment on above: Order Comment: Comme nts: SPECIMEN #3'TROP' Serial specimen #1, #2 or #3: 3 Result Comment: Crit ical Result(s) Called at: 05:15:32 02/18/2024 by:Edita hines. Results read back by same. Please Note: New Test Units and Gender Specific Reference Ranges. For more information see Policy Stat Procedure [place] High Sensitivity Troponin (TNIH) and attachments. Performed By: #### L 501.4020 ####[facility] [address] [place], [address] TROPONIN-I HS 523 pg/mL Invalid Interpretation Code 3.0-54.0 [facility] Comment on above: Order Comment: Comme nts: SPECIMEN #2'TROP' Serial specimen #1, #2 or #3: 2 Result Comment: Crit ical Result(s) Called at: 00:17:36 02/18/2024 by:Edita Varma to donny. Results read back by same. Please Note: New Test Units and Gender Specific Reference Ranges. For more information see Policy Stat Procedure [place] High Sensitivity Troponin (TNIH) and attachments. Performed By: #### L 501.4020 ####[facility] [address] [place], [address] Lipid Profileon 02-18-2024 Cholesterol [Mass/Vol] 265 mg/dL High 200 [facility] Comment on above: Result Comment: <200 mg/dL Desirable 200-240 mg/dL Borderline >240 mg/dL High Risk Performed By: #### L 501.9985, L100.0100, L500.4050, L500.4100, L501.9520 ####[facility] [address] [place], [address] Cholesterol in HDL [Mass/Vol] 77 mg/dL Normal [facility] Comment on above: Result Comment: The drugs N-Acetylcysteine and Metamizole may falselydepress this assay. Reference Range HDL <40 mg/dL Low HDL Cholesterol HDL >or= 60 mg/dL High HDL Cholesterol Performed By: #### L 501.9985, L100.0100, L500.4050, L500.4100, L501.9520 ####[facility] [address] [place], [address] Cholesterol in LDL [Mass/Vol] 167 mg/dL High 0-130 [facility] Comment on above: Performed By: #### L 501.9985, L100.0100, L500.4050, L500.4100, L501.9520 ####[facility] [address] [place], [address] Cholesterol in VLDL [Mass/Vol] 21 mg/dL Normal 5-40 [facility] Comment on above: Performed By: #### L 501.9985, L100.0100, L500.4050, L500.4100, L501.9520 ####[facility] [address] [place], [address] Triglyceride [Mass/Vol] 106 mg/dL Normal [facility] Comment on above: Result Comment: The drugs N-Acetylcysteine and Metamizole may falselydepress this assay.Serum Triglycerides Reference Interval Normal <150 mg/dL Borderline high 150 - 199 mg/dL High 200 - 499 mg/dL Very High > or = 500 mg/dL Performed By: #### L 501.9985, L100.0100, L500.4050, L500.4100, L501.9520 ####[facility] [address] [place], [address] MR/CON.PCM.NEon 02-18-2024 MR/CON.PCM.NE Normal [facility] Pacemaker Checkon 02-18-2024 Pacemaker Check Normal [facility] Pacemaker Check Normal [facility] Partial Thromboplast Timeon 02-18-2024 aPTT Coag (Bld) [Time] 47.9 s High 24.1-36.2 [facility] Comment on above: Order Comment: Comme nts: Heparin drip initiated at 2200 9/8 Performed By: #### L 300.4310 ####[facility] [address] [place], [address] Thyroid Stim Hormone (TSH)on 02-18-2024 TSH 3.650 uIU/mL Normal 0.358-3.740 [facility] Comment on above: Performed By: #### L 501.9985, L100.0100, L500.4050, L500.4100, L501.9520 ####[facility] [address] [place], [address] 12 Lead EKGon 02-17-2024 12 Lead EKG Normal [facility] CBC W/Diff, Automatedon 09-0 Absolute Lymph 1.52 X10 3/uL Normal 0.83-4.51 [facility] Comment on above: Performed By: #### L 501.2450, L500.4050, L100.0100 ####[facility] [address] [place], [address] Absolute Neut 9.4 X10 3/uL High 2.0-7.7 [facility] Comment on above: Performed By: #### L 501.2450, L500.4050, L100.0100 ####[facility] [address] [place], [address] Basophils/100 WBC (Bld) 0.6 % Normal 0-1 [facility] Comment on above: Performed By: #### L 501.2450, L500.4050, L100.0100 ####[facility] [address] [place], [address] Eosinophils/100 WBC (Bld) 0.4 % Normal 0-5 [facility] Comment on above: Performed By: #### L 501.2450, L500.4050, L100.0100 ####[facility] [address] [place], [address] Erythrocyte distribution width (RBC) [Ratio] 12.8 % Normal 11.6-14.6 [facility] Comment on above: Performed By: #### L 501.2450, L500.4050, L100.0100 ####[facility] [address] [place], [address] Hematocrit (Bld) [Volume fraction] 48.0 % High 37-47 [facility] Comment on above: Performed By: #### L 501.2450, L500.4050, L100.0100 ####[facility] [address] [place], [address] Hemoglobin (Bld) [Mass/Vol] 15.3 g/dL High 12.0-15.0 [facility] Comment on above: Performed By: #### L 501.2450, L500.4050, L100.0100 ####[facility] [address] [place], [address] IG% 0.300 Normal 0.0-0.9 [facility] Comment on above: Result Comment: IG% - Immature Granulocytes (promyelocytes, myelocytes andmetamyelocytes) > 1% indicates that a LEFT SHIFT is Present. Performed By: #### L 501.2450, L500.4050, L100.0100 ####[facility] [address] [place], [address] Lymphocytes/100 WBC (Bld) 13.3 % Low 19-41 [facility] Comment on above: Performed By: #### L 501.2450, L500.4050, L100.0100 ####[facility] [address] [place], [address] MCH (RBC) [Entitic mass] 27.5 pg Normal 27.0-32.0 [facility] Comment on above: Performed By: #### L 501.2450, L500.4050, L100.0100 ####[facility] [address] [place], [address] MCHC (RBC) [Mass/Vol] 31.9 g/dL Low 32-36 [facility] Comment on above: Performed By: #### L 501.2450, L500.4050, L100.0100 ####[facility] [address] [place], [address] MCV (RBC) [Entitic vol] 86.3 fL Normal 81-99 [facility] Comment on above: Performed By: #### L 501.2450, L500.4050, L100.0100 ####[facility] [address] [place], [address] Monocytes/100 WBC (Bld) 3.4 % Normal 0-10 [facility] Comment on above: Performed By: #### L 501.2450, L500.4050, L100.0100 ####[facility] [address] [place], [address] Neutrophils/100 WBC (Bld) 82.0 % High 47-70 [facility] Comment on above: Performed By: #### L 501.2450, L500.4050, L100.0100 ####[facility] [address] [place], [address] Nucleated RBC (Bld) [#/Vol] 0 10*3/uL Normal 0-5 [facility] Comment on above: Performed By: #### L 501.2450, L500.4050, L100.0100 ####[facility] [address] [place], [address] Platelet mean volume (Bld) [Entitic vol] 9.8 fL Normal 6.2-12.0 [facility] Comment on above: Performed By: #### L 501.2450, L500.4050, L100.0100 ####[facility] [address] [place], [address] Platelets (Bld) [#/Vol] 288 10*3/uL Normal 150-450 [facility] Comment on above: Performed By: #### L 501.2450, L500.4050, L100.0100 ####[facility] [address] [place], [address] RBC (Bld) [#/Vol] 5.56 10*6/uL High 4.2-5.4 [facility] Comment on above: Performed By: #### L 501.2450, L500.4050, L100.0100 ####[facility] [address] [place], [address] RDW SD 40.3 fl Normal 35.1-43.9 [facility] Comment on above: Performed By: #### L 501.2450, L500.4050, L100.0100 ####[facility] [address] [place], [address] WBC (Bld) [#/Vol] 11.4 10*3/uL High 4.4-11.0 [facility] Comment on above: Performed By: #### L 501.2450, L500.4050, L100.0100 ####[facility] [address] [place], [address] Chest 1 View (Portable)on Chest 1 View (Portable) Normal [facility] Comprehensive Metabolic Prof ilon 02-17-2024 Albumin [Mass/Vol] 3.6 g/dL Normal 3.2-5.0 [facility] Comment on above: Performed By: #### L 501.2450, L500.4050, L100.0100 ####[facility] [address] [place], [address] Albumin/Globulin [Mass ratio] 1.0 {ratio} Normal 0.9-2.4 [facility] Comment on above: Performed By: #### L 501.2450, L500.4050, L100.0100 ####[facility] [address] [place], [address] ALK P 106 U/L Normal 45-117 [facility] Comment on above: Performed By: #### L 501.2450, L500.4050, L100.0100 ####[facility] [address] [place], [address] ALT [Catalytic activity/Vol] 20 U/L Normal 13-56 [facility] Comment on above: Performed By: #### L 501.2450, L500.4050, L100.0100 ####[facility] [address] [place], [address] AST [Catalytic activity/Vol] 13 U/L Low 15-37 [facility] Comment on above: Performed By: #### L 501.2450, L500.4050, L100.0100 ####[facility] [address] [place], [address] Bilirubin [Mass/Vol] 1.10 mg/dL High 0.20-1.00 [facility] Comment on above: Result Comment: For patients on eltrombopag therapy, use of Dimension [place] TBIL is not recommended. Performed By: #### L 501.2450, L500.4050, L100.0100 ####[facility] [address] [place], [address] BUN/CRE 17.5 RATIO Normal 10-20 [facility] Comment on above: Performed By: #### L 501.2450, L500.4050, L100.0100 ####[facility] [address] [place], [address] CA,Total 9.5 mg/dL Normal 8.5-10.1 [facility] Comment on above: Performed By: #### L 501.2450, L500.4050, L100.0100 ####[facility] [address] [place], [address] Chloride [Moles/Vol] 102 mmol/L Normal 98-107 [facility] Comment on above: Performed By: #### L 501.2450, L500.4050, L100.0100 ####[facility] [address] [place], [address] CO2 [Moles/Vol] 27.0 mmol/L Normal 21.0-32.0 [facility] Comment on above: Performed By: #### L 501.2450, L500.4050, L100.0100 ####[facility] [address] [place], [address] Creatinine [Mass/Vol] 0.97 mg/dL Normal 0.55-1.02 [facility] Comment on above: Result Comment: The validity of the calculated GFR GFRAA in patients over70 years has not been determined. Clinical correlation isessential. Performed By: #### L 501.2450, L500.4050, L100.0100 ####[facility] [address] [place], [address] EST GFR - AA 73 mL/min Normal >60 [facility] Comment on above: Result Comment: Afri can Nauruan GFR Calc Performed By: #### L 501.2450, L500.4050, L100.0100 ####[facility] [address] [place], [address] GAP 9 Normal 5-15 [facility] Comment on above: Performed By: #### L 501.2450, L500.4050, L100.0100 ####[facility] [address] [place], [address] GFR/1.73 sq M.predicted among non-blacks MDRD (S/P/Bld) [Vol rate/Area] 60 mL/min/{1.73_m2} Normal >60 [facility] Comment on above: Result Comment: Non- GFR Calc Performed By: #### L 501.2450, L500.4050, L100.0100 ####[facility] [address] [place], [address] Globulin (S) [Mass/Vol] 3.6 g/dL Normal 2.2-4.2 [facility] Comment on above: Performed By: #### L 501.2450, L500.4050, L100.0100 ####[facility] [address] [place], [address] Glucose [Mass/Vol] 194 mg/dL High 74-106 [facility] Comment on above: Result Comment: Fast ing Glucose result greater than or equal to 126 mg/dLsuggests DIABETES MELLITUS per A.D.A. criteria. Performed By: #### L 501.2450, L500.4050, L100.0100 ####[facility] [address] [place], [address] Potassium [Moles/Vol] 3.4 mmol/L Low 3.5-5.1 [facility] Comment on above: Performed By: #### L 501.2450, L500.4050, L100.0100 ####[facility] [address] [place], [address] Sodium [Moles/Vol] 138 mmol/L Normal 136-145 [facility] Comment on above: Performed By: #### L 501.2450, L500.4050, L100.0100 ####[facility] [address] [place], [address] T PROT 7.2 g/dL Normal 6.4-8.2 [facility] Comment on above: Performed By: #### L 501.2450, L500.4050, L100.0100 ####[facility] [address] [place], [address] Urea nitrogen [Mass/Vol] 17 mg/dL Normal 7-18 [facility] Comment on above: Performed By: #### L 501.2450, L500.4050, L100.0100 ####[facility] [address] [place], [address] Echo Complete W/ Contraston 02-17-2024 Echo Complete W/ Contrast Normal [facility] Emergency Department Summary on 02-17-2024 Emergency Department Summary Normal [facility] H AND P Exam - Hospitaliston 02-17-2024 H&P Exam - Hospitalist Normal [facility] L501.4020on 02-17-2024 TROPONIN-I HS 344 pg/mL Invalid Interpretation Code 3.0-54.0 [facility] Comment on above: Order Comment: 'TROP ' Serial specimen #1, #2 or #3: 1 Result Comment: Crit ical Result(s) Called at: 22:06:49 02/17/2024 by:IRVING FONTENOT TO SOPHIE RENTERIAULTER. Results read back by same. Please Note: New Test Units and Gender Specific Reference Ranges. For more information see Policy Stat Procedure [place] High Sensitivity Troponin (TNIH) and attachments. Performed By: #### L 501.4020 ####[facility] [address] [place], [place], [address] TROPONIN-I HS 201 pg/mL Invalid Interpretation Code 3.0-54.0 [facility] Comment on above: Order Comment: 'TROP ' Serial specimen #1, #2 or #3: 1 Result Comment: Crit ical Result(s) Called at: 19:59:13 02/17/2024 by:IRVING FONTENOT TO ROMÁN BENZ. Results read back by same. Please Note: New Test Units and Gender Specific Reference Ranges. For more information see Policy Stat Procedure [place] High Sensitivity Troponin (TNIH) and attachments. Performed By: #### L 501.4020 ####[facility] [address] [place], [place], [address] Lipaseon 02-17-2024 Lipase [Catalytic activity/Vol] 44 U/L Normal 13-75 [facility] Comment on above: Result Comment: Rebeka valero note:LIPASE revised reference range effective 22.New Lipase methodology. Expected to produce lower valuesthan the previous assay method.NEW Reference Range: 13 - 75 U/L Performed By: #### L 501.2450, L500.4050, L100.0100 ####[facility] [address] [place], [address] Magnesiumon 02-17-2024 Magnesium [Mass/Vol] 1.7 mg/dL Normal 1.6-2.6 [facility] Comment on above: Order Comment: Comme nts: may add to ED labs Performed By: #### L 501.5200 ####[facility] [address] [place], [address] Partial Thromboplast Timeon 02-17-2024 aPTT Coag (Bld) [Time] 24.6 s Normal 24.1-36.2 [facility] Comment on above: Performed By: #### L 300.4310, L300.3900 ####[facility] [address] [place], [address] Prothrombin Time w/INRon INR Coag (PPP) [Relative time] 1.1 {INR} Normal [facility] Comment on above: Performed By: #### L 300.4310, L300.3900 ####[facility] [address] [place], [address] PT Coag (PPP) [Time] 14.5 s Normal 11.7-14.9 [facility] Comment on above: Performed By: #### L 300.4310, L300.3900 ####[facility] [address] [place], [address] STROKE Brain/Head without Co nton 02-17-2024 STROKE Brain/Head without Cont Normal [facility] STROKE CTA Head AND Neck W/C onon 02-17-2024 STROKE CTA Head AND Neck W/Con Normal [facility] Endocrinology Visit Reporton 01-17-2024 Endocrinology Visit Report Normal [facility] Pacemaker Checkon 01-09-2024 Pacemaker Check Normal [facility] CBC W/Diff, Automatedon 07-2 -2023 Absolute Lymph 1.81 X10 3/uL Normal 0.83-4.51 [facility] Comment on above: Performed By: #### L 500.4050, L100.0100, L502.0500, L501.9520 ####[facility] [address] [place], [address] Absolute Neut 4.1 X10 3/uL Normal 2.0-7.7 [facility] Comment on above: Performed By: #### L 500.4050, L100.0100, L502.0500, L501.9520 ####[facility] [address] [place], [address] Basophils/100 WBC (Bld) 1.2 % High 0-1 [facility] Comment on above: Performed By: #### L 500.4050, L100.0100, L502.0500, L501.9520 ####[facility] [address] [place], [address] Eosinophils/100 WBC (Bld) 2.0 % Normal 0-5 [facility] Comment on above: Performed By: #### L 500.4050, L100.0100, L502.0500, L501.9520 ####[facility] [address] [place], [address] Erythrocyte distribution width (RBC) [Ratio] 13.9 % Normal 11.6-14.6 [facility] Comment on above: Performed By: #### L 500.4050, L100.0100, L502.0500, L501.9520 ####[facility] [address] [place], [address] Hematocrit (Bld) [Volume fraction] 46.1 % Normal 37-47 [facility] Comment on above: Performed By: #### L 500.4050, L100.0100, L502.0500, L501.9520 ####[facility] [address] [place], [address] Hemoglobin (Bld) [Mass/Vol] 14.3 g/dL Normal 12.0-15.0 [facility] Comment on above: Performed By: #### L 500.4050, L100.0100, L502.0500, L501.9520 ####[facility] [address] [place], [address] IG% 0.500 Normal 0.0-0.9 [facility] Comment on above: Result Comment: IG% - Immature Granulocytes (promyelocytes, myelocytes andmetamyelocytes) > 1% indicates that a LEFT SHIFT is Present. Performed By: #### L 500.4050, L100.0100, L502.0500, L501.9520 ####[facility] [address] [place], [address] Lymphocytes/100 WBC (Bld) 27.8 % Normal 19-41 [facility] Comment on above: Performed By: #### L 500.4050, L100.0100, L502.0500, L501.9520 ####[facility] [address] [place], [address] MCH (RBC) [Entitic mass] 27.3 pg Normal 27.0-32.0 [facility] Comment on above: Performed By: #### L 500.4050, L100.0100, L502.0500, L501.9520 ####[facility] [address] [place], [address] MCHC (RBC) [Mass/Vol] 31.0 g/dL Low 32-36 [facility] Comment on above: Performed By: #### L 500.4050, L100.0100, L502.0500, L501.9520 ####[facility] [address] [place], [address] MCV (RBC) [Entitic vol] 88.1 fL Normal 81-99 [facility] Comment on above: Performed By: #### L 500.4050, L100.0100, L502.0500, L501.9520 ####[facility] [address] [place], [address] Monocytes/100 WBC (Bld) 6.3 % Normal 0-10 [facility] Comment on above: Performed By: #### L 500.4050, L100.0100, L502.0500, L501.9520 ####[facility] [address] [place], [address] Neutrophils/100 WBC (Bld) 62.2 % Normal 47-70 [facility] Comment on above: Performed By: #### L 500.4050, L100.0100, L502.0500, L501.9520 ####[facility] [address] [place], [address] Nucleated RBC (Bld) [#/Vol] 0 10*3/uL Normal 0-5 [facility] Comment on above: Performed By: #### L 500.4050, L100.0100, L502.0500, L501.9520 ####[facility] [address] [place], [address] Platelet mean volume (Bld) [Entitic vol] 10.0 fL Normal 6.2-12.0 [facility] Comment on above: Performed By: #### L 500.4050, L100.0100, L502.0500, L501.9520 ####[facility] [address] [place], [address] Platelets (Bld) [#/Vol] 280 10*3/uL Normal 150-450 [facility] Comment on above: Performed By: #### L 500.4050, L100.0100, L502.0500, L501.9520 ####[facility] [address] [place], [address] RBC (Bld) [#/Vol] 5.23 10*6/uL Normal 4.2-5.4 [facility] Comment on above: Performed By: #### L 500.4050, L100.0100, L502.0500, L501.9520 ####[facility] [address] [place], [address] RDW SD 44.2 fl High 35.1-43.9 [facility] Comment on above: Performed By: #### L 500.4050, L100.0100, L502.0500, L501.9520 ####[facility] [address] [place], [address] WBC (Bld) [#/Vol] 6.5 10*3/uL Normal 4.4-11.0 [facility] Comment on above: Performed By: #### L 500.4050, L100.0100, L502.0500, L501.9520 ####[facility] [address] [place], [address] Comprehensive Metabolic [facility] 01-01-2024 Albumin [Mass/Vol] 3.3 g/dL Normal 3.2-5.0 [facility] Comment on above: Performed By: #### L 500.4050, L100.0100, L502.0500, L501.9520 ####[facility] [address] [place], [address] Albumin/Globulin [Mass ratio] 1.0 {ratio} Normal 0.9-2.4 [facility] Comment on above: Performed By: #### L 500.4050, L100.0100, L502.0500, L501.9520 ####[facility] [address] [place], [address] ALK P 85 U/L Normal 45-117 [facility] Comment on above: Performed By: #### L 500.4050, L100.0100, L502.0500, L501.9520 ####[facility] [address] [place], [address] ALT [Catalytic activity/Vol] 21 U/L Normal 13-56 [facility] Comment on above: Performed By: #### L 500.4050, L100.0100, L502.0500, L501.9520 ####[facility] [address] [place], [address] AST [Catalytic activity/Vol] 14 U/L Low 15-37 [facility] Comment on above: Performed By: #### L 500.4050, L100.0100, L502.0500, L501.9520 ####[facility] [address] [place], [address] Bilirubin [Mass/Vol] 0.80 mg/dL Normal 0.20-1.00 [facility] Comment on above: Result Comment: For patients on eltrombopag therapy, use of Dimension [place] TBIL is not recommended. Performed By: #### L 500.4050, L100.0100, L502.0500, L501.9520 ####[facility] [address] [place], [address] BUN/CRE 27.9 RATIO High 10-20 [facility] Comment on above: Performed By: #### L 500.4050, L100.0100, L502.0500, L501.9520 ####[facility] [address] [place], [address] CA,Total 8.2 mg/dL Low 8.5-10.1 [facility] Comment on above: Performed By: #### L 500.4050, L100.0100, L502.0500, L501.9520 ####[facility] [address] [place], [address] Chloride [Moles/Vol] 109 mmol/L High 98-107 [facility] Comment on above: Performed By: #### L 500.4050, L100.0100, L502.0500, L501.9520 ####[facility] [address] [place], [address] CO2 [Moles/Vol] 17.0 mmol/L Low 21.0-32.0 [facility] Comment on above: Performed By: #### L 500.4050, L100.0100, L502.0500, L501.9520 ####[facility] [address] [place], [address] Creatinine [Mass/Vol] 1.04 mg/dL High 0.55-1.02 [facility] Comment on above: Result Comment: The validity of the calculated GFR GFRAA in patients over70 years has not been determined. Clinical correlation isessential. Performed By: #### L 500.4050, L100.0100, L502.0500, L501.9520 ####[facility] [address] [place], [address] EST GFR - AA 67 mL/min Normal >60 [facility] Comment on above: Result Comment: Afri can Nauruan GFR Calc Performed By: #### L 500.4050, L100.0100, L502.0500, L501.9520 ####[facility] [address] [place], [address] GAP 11 Normal 5-15 [facility] Comment on above: Performed By: #### L 500.4050, L100.0100, L502.0500, L501.9520 ####[facility] [address] [place], [address] GFR/1.73 sq M.predicted among non-blacks MDRD (S/P/Bld) [Vol rate/Area] 56 mL/min/{1.73_m2} Low >60 [facility] Comment on above: Result Comment: Non- GFR Calc Performed By: #### L 500.4050, L100.0100, L502.0500, L501.9520 ####[facility] [address] [place], [address] Globulin (S) [Mass/Vol] 3.4 g/dL Normal 2.2-4.2 [facility] Comment on above: Performed By: #### L 500.4050, L100.0100, L502.0500, L501.9520 ####[facility] [address] [place], [address] Glucose [Mass/Vol] 192 mg/dL High 74-106 [facility] Comment on above: Result Comment: Fast ing Glucose result greater than or equal to 126 mg/dLsuggests DIABETES MELLITUS per A.D.A. criteria. Performed By: #### L 500.4050, L100.0100, L502.0500, L501.9520 ####[facility] [address] [place], [address] Potassium [Moles/Vol] 4.2 mmol/L Normal 3.5-5.1 [facility] Comment on above: Performed By: #### L 500.4050, L100.0100, L502.0500, L501.9520 ####[facility] [address] [place], [address] Sodium [Moles/Vol] 137 mmol/L Normal 136-145 [facility] Comment on above: Performed By: #### L 500.4050, L100.0100, L502.0500, L501.9520 ####[facility] [address] [place], [address] T PROT 6.7 g/dL Normal 6.4-8.2 [facility] Comment on above: Performed By: #### L 500.4050, L100.0100, L502.0500, L501.9520 ####[facility] [address] [place], [address] Urea nitrogen [Mass/Vol] 29 mg/dL High -18 [facility] Comment on above: Performed By: #### L 500.4050, L100.0100, L502.0500, L501.9520 ####[facility] [address] [place], [address] Microalbumin,Random Urineon 01-01-2024 MICROALBUMIN,UR 16.6 mg/L Normal NO RANGE EST. [facility] Comment on above: Performed By: #### L 500.4050, L100.0100, L502.0500, L501.9520 ####[facility] [address] [place], [address] Thyroid Stim Hormone (TSH)on 01-01-2024 TSH 4.04 uIU/mL High 0.358-3.74 [facility] Comment on above: Performed By: #### L 500.4050, L100.0100, L502.0500, L501.9520 ####[facility] [address] [place], [address] Cardiology Visit Reporton Cardiology Visit Report Normal [facility] BSCAN OS (LEFT EYE)on 2023 [facility] Radiology Study observation (narrative) [facility] Left eye Photo documentation on 11-27-2023 [facility] Radiology Study observation (narrative) [facility] Absolute lymphocyte countOrd ered By: Justyn Lu on 09-13-2023 Lymphocytes Auto (Unsp spec) [#/Vol] 2.63 10*3/uL 0.83-4.51 [facility] Automated lymphocyte count a s percentage of total leukocytesOrdered By: Justyn Lu on 09-13-2023 Lymphocytes/100 WBC Auto (Unsp spec) 26.6 % 19-41 [facility] Basophil percentageOrdered B y: Justyn Lu on 09-13-2023 Basophils/100 WBC (Bld) 0.6 % 0-1 [facility] Chloride [Moles/Vol] 105 mmol/L 98-107 [facility] Eosinophils/100 WBC (Bld) 1.4 % 0-5 [facility] Glucose [Mass/Vol] 124 mg/dL 74-106 [facility] Comment on above: Fasting Glucose resu lt from 100 to 125 mg/dL suggests IMPAIRED HOMEOSTASIS per A.D.A. criteria. Hemoglobin (Bld) [Mass/Vol] 15.0 g/dL 12.0-15.0 [facility] Monocytes/100 WBC (Bld) 6.1 % 0-10 [facility] Neutrophils (Bld) [#/Vol] 6.4 10*3/uL 2.0-7.7 [facility] Neutrophils/100 WBC (Bld) 64.8 % 47-70 [facility] Potassium [Moles/Vol] 3.9 mmol/L 3.5-5.1 [facility] Sodium [Moles/Vol] 137 mmol/L 136-145 [facility] WBC (Bld) [#/Vol] 9.9 10*3/uL 4.4-11.0 [facility] Determination of erythrocyte mean corpuscular volume (MCV)Ordered By: Justyn Lu on 09-13-2023 MCV (RBC) [Entitic vol] 87.0 fL 81-99 [facility] Erythrocyte distribution wid th ratioOrdered By: Justyn Lu on 09-13-2023 Erythrocyte distribution width (RBC) [Ratio] 12.8 % 11.6-14.6 [facility] Erythrocyte distribution wid th standard deviationOrdered By: Justyn Lu on 09-13-2023 Erythrocyte distribution width (RBC) [Entitic vol] 40.1 fL 35.1-43.9 [facility] Hematocrit Auto (Bld) [Volum e fraction]Ordered By: Justyn Lu on 09-13-2023 Hematocrit (Bld) [Volume fraction] 46.9 % 37-47 [facility] Immature granulocytes/100 WB C Auto (Bld)Ordered By: Justyn Lu on 09-13-2023 Immature granulocytes/100 WBC (Bld) 0.500 % 0.0-0.9 [facility] Comment on above: IG% - Immature Granu locytes (promyelocytes, myelocytes and metamyelocytes) > 1% indicates that a LEFT SHIFT is Present. Laboratory - Chemistry and C hemistry - challengeOrdered By: Justyn Lu on 09-13-2023 CO2 [Moles/Vol] 26.0 mmol/L 21.0-32.0 [facility] Urea nitrogen/Creatinine [Mass ratio] 21.2 mg/mg 10-20 [facility] Laboratory - Hematology and Cell countsOrdered By: Justyn Lu on 09-13-2023 MCH (RBC) [Entitic mass] 27.8 pg 27.0-32.0 [facility] MCHC (RBC) [Mass/Vol] 32.0 g/dL 32-36 [facility] Nucleated RBC/100 WBC (Bld) [Ratio] 0 % 0-5 [facility] Platelet mean volume (Bld) [Entitic vol] 9.5 fL 6.2-12.0 [facility] Platelets (Bld) [#/Vol] 343 10*3/uL 150-450 [facility] No Panel InformationOrdered By: Justyn Lu on 09-13-2023 Estimated Creatinine Clearance Calc 60.79 ml/min [facility] Estimated GFR (MDRD) Amer 67 mL/min >60 [facility] Comment on above: GFR Calc Estimated GFR (MDRD) Non-Af Amer 56 mL/min >60 [facility] Comment on above: Non- GFR Calc Troponin I High Sensitivity 5 pg/mL 3.0-54.0 [facility] Comment on above: Please Note: New Mil[place]is t Units and Gender Specific Reference Ranges. For more information see Policy Stat Procedure [place] High Sensitivity Troponin (TNIH) and attachments. RBC Auto (Bld) [#/Vol]Ordere d By: Justyn Lu on 09-13-2023 RBC (Bld) [#/Vol] 5.39 10*6/uL 4.2-5.4 [facility] Serum or plasma calcium gavi urement (mass/volume)Ordered By: Justyn Lu on 09-13-2023 Calcium [Mass/Vol] 9.2 mg/dL 8.5-10.1 [facility] Serum or plasma creatinine m easurement (mass/volume)Ordered By: Justyn Lu on 09-13-2023 Creatinine [Mass/Vol] 1.04 mg/dL 0.55-1.02 [facility] Comment on above: The validity of the calculated GFR & GFRAA in patients over 70 years has not been determined. Clinical correlation is essential. Serum or plasma urea nitroge n measurement (mass/volume)Ordered By: Justyn Lu on 09-13-2023 Urea nitrogen [Mass/Vol] 22 mg/dL 7-18 [facility] Thin prep Papanicolaou smear with manual screeningOrdered By: Justyn Lu on 09-13-2023 Thin prep Papanicolaou smear with manual screening 6 5-15 [facility] Basophil percentageOrdered B y: Sarah Navneet on 07-18-2023 Bilirubin [Mass/Vol] 0.90 mg/dL 0.20-1.00 [facility] Comment on above: For patients on eltr ombopag therapy, use of Dimension [place] TBIL is not recommended. Chloride [Moles/Vol] 105 mmol/L 98-107 [facility] Cholesterol [Mass/Vol] 183 mg/dL <200 [facility] Comment on above: <200 mg/dL Desirable 200-240 mg/dL Borderline >240 mg/dL High Risk Glucose [Mass/Vol] 162 mg/dL 74-106 [facility] Comment on above: Fasting Glucose resu lt greater than or equal to 126 mg/dL suggests DIABETES MELLITUS per A.D.A. criteria. Hemoglobin (Bld) [Mass/Vol] 13.7 g/dL 12.0-15.0 [facility] Potassium [Moles/Vol] 4.2 mmol/L 3.5-5.1 [facility] Protein [Mass/Vol] 6.8 g/dL 6.4-8.2 [facility] Sodium [Moles/Vol] 133 mmol/L 136-145 [facility] Triglyceride [Mass/Vol] 170 mg/dL <199 [facility] Comment on above: The drugs N-Acetylcy steine and Metamizole may falsely depress this assay.Serum Triglycerides Reference Interval Normal <150 mg/dL Borderline high 150 - 199 mg/dL High 200 - 499 mg/dL Very High > or = 500 mg/dL WBC (Bld) [#/Vol] 7.4 10*3/uL 4.4-11.0 [facility] Determination of erythrocyte mean corpuscular volume (MCV)Ordered By: Sarah Toth on 07-18-2023 MCV (RBC) [Entitic vol] 89.2 fL 81-99 [facility] Erythrocyte distribution wid th ratioOrdered By: Sarah Toth on 07-18-2023 Erythrocyte distribution width (RBC) [Ratio] 13.0 % 11.6-14.6 [facility] Erythrocyte distribution wid th standard deviationOrdered By: Sarah Toth on 07-18-2023 Erythrocyte distribution width (RBC) [Entitic vol] 42.6 fL 35.1-43.9 [facility] Hematocrit Auto (Bld) [Volum e fraction]Ordered By: Sarah Toth on 07-18-2023 Hematocrit (Bld) [Volume fraction] 43.7 % 37-47 [facility] Laboratory - Chemistry and C hemistry - challengeOrdered By: Sarah Toth on 07-18-2023 Albumin/Globulin [Mass ratio] 0.9 {ratio} 0.9-2.4 [facility] ALP [Catalytic activity/Vol] 91 U/L 45-117 [facility] ALT [Catalytic activity/Vol] 19 U/L 13-56 [facility] Cholesterol in HDL [Mass/Vol] 49 mg/dL >40 [facility] Comment on above: The drugs N-Acetylcy steine and Metamizole may falsely depress this assay. Reference Range HDL <40 mg/dL Low HDL Cholesterol HDL >or= 60 mg/dL High HDL Cholesterol Cholesterol in LDL [Mass/Vol] 100 mg/dL 0-130 [facility] CO2 [Moles/Vol] 26.0 mmol/L 21.0-32.0 [facility] Globulin (S) [Mass/Vol] 3.6 g/dL 2.2-4.2 [facility] Urea nitrogen/Creatinine [Mass ratio] 25.2 mg/mg 10-20 [facility] Laboratory - Hematology and Cell countsOrdered By: Sarah Toth on 07-18-2023 MCH (RBC) [Entitic mass] 28.0 pg 27.0-32.0 [facility] MCHC (RBC) [Mass/Vol] 31.4 g/dL 32-36 [facility] Platelet mean volume (Bld) [Entitic vol] 9.0 fL 6.2-12.0 [facility] Platelets (Bld) [#/Vol] 294 10*3/uL 150-450 [facility] No Panel InformationOrdered By: Sarah Toth on 07-18-2023 Estimated GFR (MDRD) Amer 65 mL/min >60 [facility] Comment on above: GFR Calc Estimated GFR (MDRD) Non-Af Amer 54 mL/min >60 [facility] Comment on above: Non- GFR Calc VLDL Cholesterol 34 mg/dL 5-40 [facility] RBC Auto (Bld) [#/Vol]Ordere d By: Sarah Toth on 07-18-2023 RBC (Bld) [#/Vol] 4.90 10*6/uL 4.2-5.4 [facility] Serum or plasma calcium gavi urement (mass/volume)Ordered By: Sarah Toth on 07-18-2023 Calcium [Mass/Vol] 8.7 mg/dL 8.5-10.1 [facility] Serum or plasma creatinine m easurement (mass/volume)Ordered By: Sarah Toth on 07-18-2023 Creatinine [Mass/Vol] 1.07 mg/dL 0.55-1.02 [facility] Comment on above: The validity of the calculated GFR & GFRAA in patients over 70 years has not been determined. Clinical correlation is essential. Serum or plasma urea nitroge n measurement (mass/volume)Ordered By: Sarah Toth on 07-18-2023 Urea nitrogen [Mass/Vol] 27 mg/dL 7-18 [facility] Thin prep Papanicolaou smear with manual screeningOrdered By: Sarah Toth on 07-18-2023 Thin prep Papanicolaou smear with manual screening 3.2 g/dL 3.2-5.0 [facility] Thin prep Papanicolaou smear with manual screening 9 U/L 15-37 [facility] Thin prep Papanicolaou smear with manual screening 2 5-15 [facility] Thin prep Papanicolaou smear with manual screening 58.7 mg/L NO RANGE EST. [facility] Whole blood hemoglobin A1c/t otal hemoglobin ratio (mass fraction)Ordered By: Sarah Toth on 07-18-2023 HbA1c (Bld) [Mass fraction] 6.8 % 3.8-5.6 [facility] Comment on above: Normal < 5.7 % Predi abetic 5.7 - 6.4 % Diabetic >or= 6.5 % Please note range changes. US ABD RIGHT UPPER QUADRANTo n 03-05-2023 US ABD RIGHT UPPER QUADRANT * * *Final Report* * * DATE OF EXAM: Mar 05 2023 9:17AM WRU 1032 - US ABD RIGHT UPPER QUADRANT [...] lesion Cholelithiasis Suboptimal visualization of the pancreas [employer] In[employer]: PSC[employer] Transcribe Date/Time: Mar 05 2023 10:37A Dictated by : KEILA VALVERDE MD This examination was interpreted and the report reviewed and electronically signed by: KEILA VALVERDE MD on Mar 05 2023 10:39AM EST [id number] CN Normal [facility] Absolute lymphocyte countOrd ered By: Lico Noel on 02-01-2023 Lymphocytes Auto (Unsp spec) [#/Vol] 2.12 10*3/uL 0.83-4.51 [facility] Basophil percentageOrdered B y: Lico Noel on 02-01-2023 Basophils/100 WBC (Bld) 0.6 % 0-1 [facility] Chloride [Moles/Vol] 106 mmol/L 98-107 [facility] Eosinophils/100 WBC (Bld) 3.1 % 0-5 [facility] Glucose [Mass/Vol] 228 mg/dL 74-106 [facility] Comment on above: Glucose result great er than or equal to 200 mg/dLsuggests DIABETES MELLITUS per A.D.A. criteria. Neutrophils (Bld) [#/Vol] 3.9 10*3/uL 2.0-7.7 [facility] Neutrophils/100 WBC (Bld) 58.2 % 47-70 [facility] Potassium [Moles/Vol] 4.3 mmol/L 3.5-5.1 [facility] Sodium [Moles/Vol] 137 mmol/L 136-145 [facility] WBC (Bld) [#/Vol] 6.7 10*3/uL 4.4-11.0 [facility] Blood erythrocytes count (nu mber/volume)Ordered By: Lico Noel on 02-01-2023 RBC (Bld) [#/Vol] 4.77 10*6/uL 4.2-5.4 [facility] Blood hemoglobin measurement (mass/volume)Ordered By: Lico Noel on 02-01-2023 Hemoglobin (Bld) [Mass/Vol] 13.4 g/dL 12.0-15.0 [facility] Blood lymphocytes/100 leukoc ytesOrdered By: Lico Noel on 02-01-2023 Lymphocytes/100 WBC (Bld) 31.5 % 19-41 [facility] Blood monocytes/100 leukocyt esOrdered By: Lico Noel on 02-01-2023 Monocytes/100 WBC (Bld) 6.3 % 0-10 [facility] Blood platelet mean volumeOr dered By: Lico Noel on 02-01-2023 Platelet mean volume (Bld) [Entitic vol] 9.4 fL 6.2-12.0 [facility] Determination of erythrocyte mean corpuscular volume (MCV)Ordered By: Lico Noel on 02-01-2023 MCV (RBC) [Entitic vol] 89.5 fL 81-99 [facility] Hematocrit Auto (Bld) [Volum e fraction]Ordered By: Lico Noel on 02-01-2023 Hematocrit (Bld) [Volume fraction] 42.7 % 37-47 [facility] Laboratory - Chemistry and C hemistry - challengeOrdered By: Lico Neol on 02-01-2023 CO2 [Moles/Vol] 26.0 mmol/L 21.0-32.0 [facility] Urea nitrogen/Creatinine [Mass ratio] 23.0 mg/mg 10-20 [facility] Laboratory - Hematology and Cell countsOrdered By: Lico Noel on 02-01-2023 Erythrocyte distribution width (RBC) [Entitic vol] 44.9 fL 35.1-43.9 [facility] Erythrocyte distribution width (RBC) [Ratio] 13.5 % 11.6-14.6 [facility] Immature granulocytes/100 WBC (Bld) 0.300 % 0.0-0.9 [facility] Comment on above: IG% - Immature Granu locytes (promyelocytes, myelocytes and metamyelocytes) > 1% indicates that a LEFT SHIFT is Present. MCH (RBC) [Entitic mass] 28.1 pg 27.0-32.0 [facility] Nucleated RBC/100 WBC (Bld) [Ratio] 0 % 0-5 [facility] MCHC Auto (RBC) [Mass/Vol]Or dered By: Lico Noel on 02-01-2023 MCHC (RBC) [Mass/Vol] 31.4 g/dL 32-36 [facility] No Panel InformationOrdered By: Lico Noel on 02-01-2023 Estimated GFR (MDRD) Amer 61 mL/min >60 [facility] Comment on above: GFR Calc Estimated GFR (MDRD) Non-Af Amer 51 mL/min >60 [facility] Comment on above: Non- GFR Calc Thyroid Stimulating Hormone (TSH) 1.73 uIU/mL 0.358-3.74 [facility] Platelets bldOrdered By: Tucker Noel on 02-01-2023 Platelets (Bld) [#/Vol] 325 10*3/uL 150-450 [facility] Serum or plasma calcium gavi urement (mass/volume)Ordered By: Lico Noel on 02-01-2023 Calcium [Mass/Vol] 8.3 mg/dL 8.5-10.1 [facility] Serum or plasma creatinine m easurement (mass/volume)Ordered By: Lico Noel on 02-01-2023 Creatinine [Mass/Vol] 1.13 mg/dL 0.55-1.02 [facility] Comment on above: The validity of the calculated GFR & GFRAA in patients over 70 years has not been determined. Clinical correlation is essential. Serum or plasma urea nitroge n measurement (mass/volume)Ordered By: Lico Noel on 02-01-2023 Urea nitrogen [Mass/Vol] 26 mg/dL 7-18 [facility] Thin prep Papanicolaou smear with manual screeningOrdered By: Lico Noel on 02-01-2023 Thin prep Papanicolaou smear with manual screening 5 5-15 [facility] Basophil percentageOrdered B y: GENIE ENCARNACION on 12-27-2022 Bilirubin [Mass/Vol] 0.60 mg/dL 0.20-1.00 [facility] Comment on above: For patients on eltr ombopag therapy, use of Dimension [place] TBIL is not recommended. Chloride [Moles/Vol] 106 mmol/L 98-107 [facility] Cholesterol [Mass/Vol] 183 mg/dL <200 [facility] Comment on above: <200 mg/dL Desirable 200-240 mg/dL Borderline >240 mg/dL High Risk Glucose [Mass/Vol] 222 mg/dL 74-106 [facility] Comment on above: Glucose result great er than or equal to 200 mg/dLsuggests DIABETES MELLITUS per A.D.A. criteria. Potassium [Moles/Vol] 4.0 mmol/L 3.5-5.1 [facility] Protein [Mass/Vol] 6.6 g/dL 6.4-8.2 [facility] Sodium [Moles/Vol] 139 mmol/L 136-145 [facility] Triglyceride [Mass/Vol] 127 mg/dL <199 [facility] Comment on above: The drugs N-Acetylcy steine and Metamizole may falsely depress this assay.Serum Triglycerides Reference Interval Normal <150 mg/dL Borderline high 150 - 199 mg/dL High 200 - 499 mg/dL Very High > or = 500 mg/dL WBC (Bld) [#/Vol] 7.6 10*3/uL 4.4-11.0 [facility] Blood erythrocytes count (nu mber/volume)Ordered By: [facility] on 12-27-2022 RBC (Bld) [#/Vol] 5.05 10*6/uL 4.2-5.4 [facility] Blood hemoglobin measurement (mass/volume)Ordered By: [facility] on 12-27-2022 Hemoglobin (Bld) [Mass/Vol] 14.1 g/dL 12.0-15.0 [facility] Blood platelet mean volumeOr dered By: [facility] on 12-27-2022 Platelet mean volume (Bld) [Entitic vol] 9.4 fL 6.2-12.0 [facility] Determination of erythrocyte mean corpuscular volume (MCV)Ordered By: [facility] on 12-27-2022 MCV (RBC) [Entitic vol] 88.7 fL 81-99 [facility] Hematocrit Auto (Bld) [Volum e fraction]Ordered By: [facility] on 12-27-2022 Hematocrit (Bld) [Volume fraction] 44.8 % 37-47 [facility] Laboratory - Chemistry and C hemistry - challengeOrdered By: [facility] on 12-27-2022 ALP [Catalytic activity/Vol] 73 U/L 45-117 [facility] ALT [Catalytic activity/Vol] 12 U/L 13-56 [facility] CO2 [Moles/Vol] 24.0 mmol/L 21.0-32.0 [facility] Cobalamin (Vitamin B12) [Mass/Vol] 295 pg/mL 211-911 [facility] Globulin (S) [Mass/Vol] 3.6 g/dL 2.2-4.2 [facility] Urea nitrogen/Creatinine [Mass ratio] 18.6 mg/mg 10-20 [facility] Laboratory - Hematology and Cell countsOrdered By: [facility] on 12-27-2022 Erythrocyte distribution width (RBC) [Entitic vol] 43.3 fL 35.1-43.9 [facility] Erythrocyte distribution width (RBC) [Ratio] 13.3 % 11.6-14.6 [facility] MCH (RBC) [Entitic mass] 27.9 pg 27.0-32.0 [facility] MCHC Auto (RBC) [Mass/Vol]Or dered By: GENIE HENNESSEY on 12-27-2022 MCHC (RBC) [Mass/Vol] 31.5 g/dL 32-36 [facility] No Panel InformationOrdered By: GENIE HENNESSEY on 12-27-2022 Estimated GFR (MDRD) Amer 69 mL/min >60 [facility] Comment on above: GFR Calc Estimated GFR (MDRD) Non-Af Amer 57 mL/min >60 [facility] Comment on above: Non- GFR Calc Thyroid Stimulating Hormone (TSH) 1.27 uIU/mL 0.358-3.74 [facility] Platelets bldOrdered By: FAB TAYLOR on 12-27-2022 Platelets (Bld) [#/Vol] 306 10*3/uL 150-450 [facility] Serum or plasma albumin gavi urement (mass/volume)Ordered By: [facility] on 12-27-2022 Albumin [Mass/Vol] 3.0 g/dL 3.2-5.0 [facility] Serum or plasma albumin/glob ulin mass ratioOrdered By: T[facility]FORMERLY [facility] on 12-27-2022 Albumin/Globulin [Mass ratio] 0.8 {ratio} 0.9-2.4 [facility] Serum or plasma calcitriol m easurement (mass/volume)Ordered By: [facility] on 12-27-2022 1,25-dihydroxyvitamin D3 [Mass/Vol] 29.9 pg/mL 24.8-81.5 [facility] Comment on above: Performed at: [facility] [address] [id number] Director: Chadwick iKm MD, Phone: [phone] Serum or plasma calcium gavi urement (mass/volume)Ordered By: GENIE HENNESSEY on 12-27-2022 Calcium [Mass/Vol] 8.5 mg/dL 8.5-10.1 [facility] Serum or plasma cholesterol in HDL measurement (mass/volume)Ordered By: [facility] on 12-27-2022 Cholesterol in HDL [Mass/Vol] 51 mg/dL >40 [facility] Comment on above: The drugs N-Acetylcy steine and Metamizole may falsely depress this assay. Reference Range HDL <40 mg/dL Low HDL Cholesterol HDL >or= 60 mg/dL High HDL Cholesterol Serum or plasma cholesterol in VLDL measurement (mass/volume)Ordered By: [facility] on 12-27-2022 Cholesterol in VLDL [Mass/Vol] 25 mg/dL 5-40 [facility] Serum or plasma creatinine m easurement (mass/volume)Ordered By: [facility] on 12-27-2022 Creatinine [Mass/Vol] 1.02 mg/dL 0.55-1.02 [facility] Comment on above: The validity of the calculated GFR & GFRAA in patients over 70 years has not been determined. Clinical correlation is essential. Serum or plasma low density lipoprotein (LDL) cholesterol measurement (mass/volume)Ordered By: [facility] on 12-27-2022 Cholesterol in LDL [Mass/Vol] 107 mg/dL 0-130 [facility] Serum or plasma urea nitroge n measurement (mass/volume)Ordered By: [facility] on 12-27-2022 Urea nitrogen [Mass/Vol] 19 mg/dL 7-18 [facility] Thin prep Papanicolaou smear with manual screeningOrdered By: [facility] on 12-27-2022 Thin prep Papanicolaou smear with manual screening 9 U/L 15-37 [facility] Thin prep Papanicolaou smear with manual screening 9 5-15 [facility] Thin prep Papanicolaou smear with manual screening 121.0 mg/L NO RANGE EST. [facility] Basophil percentageOrdered B y: [facility] on 10-02-2022 Chloride [Moles/Vol] 103 mmol/L 98-107 [facility] Glucose [Mass/Vol] 173 mg/dL 74-106 [facility] Comment on above: Fasting Glucose resu lt greater than or equal to 126 mg/dL suggests DIABETES MELLITUS per A.D.A. criteria. Potassium [Moles/Vol] 4.1 mmol/L 3.5-5.1 [facility] Sodium [Moles/Vol] 133 mmol/L 136-145 [facility] Laboratory - Chemistry and C hemistry - challengeOrdered By: [facility] on 10-02-2022 CO2 [Moles/Vol] 26.0 mmol/L 21.0-32.0 [facility] Urea nitrogen/Creatinine [Mass ratio] 19.1 mg/mg 10- [facility] No Panel InformationOrdered By: [facility] on 10-02-2022 Estimated GFR (MDRD) Amer 71 mL/min >60 [facility] Comment on above: GFR Calc Estimated GFR (MDRD) Non-Af Amer 59 mL/min >60 [facility] Comment on above: Non- GFR Calc Serum or plasma calcium gavi urement (mass/volume)Ordered By: [facility] on 10-02-2022 Calcium [Mass/Vol] 8.9 mg/dL 8.5-10.1 [facility] Serum or plasma creatinine m easurement (mass/volume)Ordered By: [facility] on 10-02-2022 Creatinine [Mass/Vol] 1.00 mg/dL 0.55-1.02 [facility] Comment on above: The validity of the calculated GFR & GFRAA in patients over 70 years has not been determined. Clinical correlation is essential. Serum or plasma urea nitroge n measurement (mass/volume)Ordered By: [facility] on 10-02-2022 Urea nitrogen [Mass/Vol] 19 mg/dL 7-18 [facility] Thin prep Papanicolaou smear with manual screeningOrdered By: [facility] on 10-02-2022 Thin prep Papanicolaou smear with manual screening 4 5-15 [facility] Basophil percentageOrdered B y: [facility] on 07-31-2022 Bilirubin [Mass/Vol] 1.10 mg/dL 0.20-1.00 [facility] Comment on above: For patients on eltr ombopag therapy, use of Dimension [place] TBIL is not recommended. Chloride [Moles/Vol] 103 mmol/L 98-107 [facility] Glucose [Mass/Vol] 270 mg/dL 74-106 [facility] Comment on above: Glucose result great er than or equal to 200 mg/dLsuggests DIABETES MELLITUS per A.D.A. criteria. Potassium [Moles/Vol] 4.1 mmol/L 3.5-5.1 [facility] Protein [Mass/Vol] 7.3 g/dL 6.4-8.2 [facility] Sodium [Moles/Vol] 138 mmol/L 136-145 [facility] WBC (Bld) [#/Vol] 7.6 10*3/uL 4.4-11.0 [facility] Blood erythrocytes count (nu mber/volume)Ordered By: [facility] on 07-31-2022 RBC (Bld) [#/Vol] 5.07 10*6/uL 4.2-5.4 [facility] Blood hemoglobin measurement (mass/volume)Ordered By: [facility] on 07-31-2022 Hemoglobin (Bld) [Mass/Vol] 14.9 g/dL 12.0-15.0 [facility] Blood platelet mean volumeOr dered By: [facility] on 07-31-2022 Platelet mean volume (Bld) [Entitic vol] 9.4 fL 6.2-12.0 [facility] Determination of erythrocyte mean corpuscular volume (MCV)Ordered By: [facility] on 07-31-2022 MCV (RBC) [Entitic vol] 90.1 fL 81-99 [facility] Hematocrit Auto (Bld) [Volum e fraction]Ordered By: [facility] on 07-31-2022 Hematocrit (Bld) [Volume fraction] 45.7 % 37-47 [facility] Laboratory - Chemistry and C hemistry - challengeOrdered By: [facility] on 07-31-2022 ALP [Catalytic activity/Vol] 86 U/L 45-117 [facility] ALT [Catalytic activity/Vol] 12 U/L 13-56 [facility] CO2 [Moles/Vol] 24.0 mmol/L 21.0-32.0 [facility] Globulin (S) [Mass/Vol] 3.8 g/dL 2.2-4.2 [facility] Urea nitrogen/Creatinine [Mass ratio] 21.9 mg/mg 10-20 [facility] Laboratory - Hematology and Cell countsOrdered By: [facility] on 07-31-2022 Erythrocyte distribution width (RBC) [Entitic vol] 41.1 fL 35.1-43.9 [facility] Erythrocyte distribution width (RBC) [Ratio] 12.6 % 11.6-14.6 [facility] MCH (RBC) [Entitic mass] 29.4 pg 27.0-32.0 [facility] MCHC Auto (RBC) [Mass/Vol]Or dered By: GENIE ENCARNACION on 07-31-2022 MCHC (RBC) [Mass/Vol] 32.6 g/dL 32-36 [facility] No Panel InformationOrdered By: GENIE ENCARNACION on 07-31-2022 Estimated GFR (MDRD) Amer 67 mL/min >60 [facility] Comment on above: GFR Calc Estimated GFR (MDRD) Non-Af Amer 55 mL/min >60 [facility] Comment on above: Non- GFR Calc Platelets bldOrdered By: FAB TAYLOR on 07-31-2022 Platelets (Bld) [#/Vol] 349 10*3/uL 150-450 [facility] Serum or plasma albumin gavi urement (mass/volume)Ordered By: GENIE ENCARNACION on 07-31-2022 Albumin [Mass/Vol] 3.5 g/dL 3.2-5.0 [facility] Serum or plasma albumin/glob ulin mass ratioOrdered By: GENIE ENCARNACION on 07-31-2022 Albumin/Globulin [Mass ratio] 0.9 {ratio} 0.9-2.4 [facility] Serum or plasma calcium gavi urement (mass/volume)Ordered By: GENIE ENCARNACION on 07-31-2022 Calcium [Mass/Vol] 9.1 mg/dL 8.5-10.1 [facility] Serum or plasma creatinine m easurement (mass/volume)Ordered By: GENIE ENCARNACION on 07-31-2022 Creatinine [Mass/Vol] 1.05 mg/dL 0.55-1.02 [facility] Comment on above: The validity of the calculated GFR & GFRAA in patients over 70 years has not been determined. Clinical correlation is essential. Serum or plasma urea nitroge n measurement (mass/volume)Ordered By: GENIE ENCARNACION on 07-31-2022 Urea nitrogen [Mass/Vol] 23 mg/dL 7-18 [facility] Thin prep Papanicolaou smear with manual screeningOrdered By: GENIE ENCARNACION on 07-31-2022 Thin prep Papanicolaou smear with manual screening 5 U/L 15-37 [facility] Thin prep Papanicolaou smear with manual screening 11 5-15 [facility] Thin prep Papanicolaou smear with manual screening 181.0 mg/L NO RANGE EST. [facility] Absolute lymphocyte countOrd ered By: Dr. Herr on 06-01-2022 Lymphocytes Auto (Unsp spec) [#/Vol] 1.95 10*3/uL 0.83-4.51 [facility] Basophil percentageOrdered B y: Dr. Herr on 06-01-2022 Basophils/100 WBC (Bld) 0.7 % 0-1 [facility] Bilirubin [Mass/Vol] 0.90 mg/dL 0.20-1.00 [facility] Comment on above: For patients on eltr ombopag therapy, use of Dimension [place] TBIL is not recommended. Chloride [Moles/Vol] 104 mmol/L 98-107 [facility] Eosinophils/100 WBC (Bld) 1.6 % 0-5 [facility] Glucose [Mass/Vol] 318 mg/dL 74-106 [facility] Comment on above: Glucose result great er than or equal to 200 mg/dLsuggests DIABETES MELLITUS per A.D.A. criteria. Neutrophils (Bld) [#/Vol] 4.5 10*3/uL 2.0-7.7 [facility] Neutrophils/100 WBC (Bld) 61.0 % 47-70 [facility] Potassium [Moles/Vol] 4.3 mmol/L 3.5-5.1 [facility] Protein [Mass/Vol] 7.0 g/dL 6.4-8.2 [facility] Sodium [Moles/Vol] 134 mmol/L 136-145 [facility] WBC (Bld) [#/Vol] 7.4 10*3/uL 4.4-11.0 [facility] Blood erythrocytes count (nu mber/volume)Ordered By: Dr. Herr on 06-01-2022 RBC (Bld) [#/Vol] 5.01 10*6/uL 4.2-5.4 [facility] Blood hemoglobin measurement (mass/volume)Ordered By: Dr. Herr on 06-01-2022 Hemoglobin (Bld) [Mass/Vol] 14.8 g/dL 12.0-15.0 [facility] Blood lymphocytes/100 leukoc ytesOrdered By: Dr. Herr on 06-01-2022 Lymphocytes/100 WBC (Bld) 26.4 % 19-41 [facility] Blood monocytes/100 leukocyt esOrdered By: Dr. Herr on 06-01-2022 Monocytes/100 WBC (Bld) 9.6 % 0-10 [facility] Blood platelet mean volumeOr dered By: Dr. Herr on 06-01-2022 Platelet mean volume (Bld) [Entitic vol] 9.3 fL 6.2-12.0 [facility] Determination of erythrocyte mean corpuscular volume (MCV)Ordered By: Dr. Herr on 06-01-2022 MCV (RBC) [Entitic vol] 88.6 fL 81-99 [facility] Hematocrit Auto (Bld) [Volum e fraction]Ordered By: Dr. Herr on 06-01-2022 Hematocrit (Bld) [Volume fraction] 44.4 % 37-47 [facility] Influenza virus A and B and SARS-CoV-2 (COVID-19) Ag panel - Upper respiratory specimOrdered By: Dr. Herr on 06-01-2022 SARS-CoV-2 & FLU Antigen (Rapid) Influenzae A [facility] Laboratory - Chemistry and C hemistry - challengeOrdered By: Dr. Herr on 06-01-2022 ALP [Catalytic activity/Vol] 124 U/L 45-117 [facility] ALT [Catalytic activity/Vol] 24 U/L 13-56 [facility] CO2 [Moles/Vol] 24.0 mmol/L 21.0-32.0 [facility] Globulin (S) [Mass/Vol] 3.6 g/dL 2.2-4.2 [facility] Urea nitrogen/Creatinine [Mass ratio] 13.4 mg/mg 10-20 [facility] Laboratory - Hematology and Cell countsOrdered By: Dr. Herr on 06-01-2022 Erythrocyte distribution width (RBC) [Entitic vol] 41.5 fL 35.1-43.9 [facility] Erythrocyte distribution width (RBC) [Ratio] 12.8 % 11.6-14.6 [facility] Immature granulocytes/100 WBC (Bld) 0.700 % 0.0-0.9 [facility] Comment on above: IG% - Immature Granu locytes (promyelocytes, myelocytes and metamyelocytes) > 1% indicates that a LEFT SHIFT is Present. MCH (RBC) [Entitic mass] 29.5 pg 27.0-32.0 [facility] Nucleated RBC/100 WBC (Bld) [Ratio] 0 % 0-5 [facility] MCHC Auto (RBC) [Mass/Vol]Or dered By: Dr. Herr on 06-01-2022 MCHC (RBC) [Mass/Vol] 33.3 g/dL 32-36 [facility] No Panel InformationOrdered By: Dr. Herr on 06-01-2022 Estimated Creatinine Clearance Calc 49.95 ml/min [facility] Estimated GFR (MDRD) Amer 73 mL/min >60 [facility] Comment on above: GFR Calc Estimated GFR (MDRD) Non-Af Amer 60 mL/min >60 [facility] Comment on above: Non- GFR Calc Platelets bldOrdered By: Dr. Herr on 06-01-2022 Platelets (Bld) [#/Vol] 254 10*3/uL 150-450 [facility] Serum or plasma albumin gavi urement (mass/volume)Ordered By: Dr. Herr on 06-01-2022 Albumin [Mass/Vol] 3.4 g/dL 3.2-5.0 [facility] Serum or plasma albumin/glob ulin mass ratioOrdered By: Dr. Herr on 06-01-2022 Albumin/Globulin [Mass ratio] 0.9 {ratio} 0.9-2.4 [facility] Serum or plasma calcium gavi urement (mass/volume)Ordered By: Dr. Herr on 06-01-2022 Calcium [Mass/Vol] 9.0 mg/dL 8.5-10.1 [facility] Serum or plasma creatinine m easurement (mass/volume)Ordered By: Dr. Herr on 06-01-2022 Creatinine [Mass/Vol] 0.97 mg/dL 0.55-1.02 [facility] Comment on above: The validity of the calculated GFR & GFRAA in patients over 70 years has not been determined. Clinical correlation is essential. Serum or plasma urea nitroge n measurement (mass/volume)Ordered By: Dr. Herr on 06-01-2022 Urea nitrogen [Mass/Vol] 13 mg/dL 7-18 [facility] Thin prep Papanicolaou smear with manual screeningOrdered By: Dr. Herr on 06-01-2022 Thin prep Papanicolaou smear with manual screening 12 U/L 15-37 [facility] Thin prep Papanicolaou smear with manual screening 6 5-15 [facility] OBSOLETEon 02-18-2020 OBSOLETE Procedure (AKEPD) THIAGO FLORES ([id number]) 1955 F Date Time Provider Department 02/18/20 8:00 AM REM DEVICE CK AKEPD During your visit today, we recorded the following information about you: Referring Provider: NAHOMY GARCIA [[id number]] Allergies As of Date: 02/18/2020 Noted Allergy Reaction RED DYE 11/10/2015 16 - Unknown [id number] REDUCTASE INHIBIT*04/02/2018 17 - Myalgia Comments: Severe cramping Date Reviewed: 04/02/2018 Reviewed by: Winter Mack - Fully Assessed Reason for Visit: ICD Remote [3663] Visit Diagnosis:Non-ischem ic cardiomyopathy (HCC) [I42.8] Prescriptions as of 02/18/2020 [...] failure (HCC) [I50.22] 12/27/2015 Coronary atherosclerosis of [place] coronary art*12/27/2015 Palpitations [R00.2] Obstructive sleep apnea [...] Encounter Status:Closed by GUERO MORTENSEN on 02/18/20 [facility] OBSOLETEon 11-11-2019 OBSOLETE Procedure (AKEPD) THIAGO FLORES ([id number]) 1955 F Date Time Provider Department 11/11/19 8:00 AM REM DEVICE CK AKCORY During your visit today, we recorded the following information about you: Referring Provider: NAHOMY GARCIA [[id number]] Allergies As of Date: 11/11/2019 Noted Allergy Reaction RED DYE 11/10/2015 16 - Unknown [id number] REDUCTASE INHIBIT*04/02/2018 17 - Myalgia Comments: Severe cramping Date Reviewed: 04/02/2018 Reviewed by: Winter Mack - Fully Assessed Reason for Visit: ICD Remote [3663] Visit Diagnosis:Non-ischem ic cardiomyopathy (HCC) [I42.8] Prescriptions as of 11/11/2019 [...] failure (HCC) [I50.22] 12/27/2015 Coronary atherosclerosis of [place] coronary art*12/27/2015 Palpitations [R00.2] Obstructive sleep apnea [...] Encounter Status:Closed by GUERO MORTENSEN on 11/11/19 [facility] OBSOLETEon 08-05-2019 OBSOLETE Procedure (AKEPD) THIAGO FLORES ([id number]) 1955 F Date Time Provider Department 08/05/19 8:00 AM REM DEVICE CK AKEPD During your visit today, we recorded the following information about you: Referring Provider: NAHOMY GARCIA [[id number]] Allergies As of Date: 08/05/2019 Noted Allergy Reaction RED DYE 11/10/2015 16 - Unknown [id number] REDUCTASE INHIBIT*04/02/2018 17 - Myalgia Comments: Severe cramping Date Reviewed: 04/02/2018 Reviewed by: Winter HoytOss HealthAjay Mack - Fully Assessed Reason for Visit: ICD Remote [3663] Visit Diagnosis:Cardiomyop athy, unspecified type (HCC) [I42.9] Prescriptions as of [...] failure (HCC) [I50.22] 12/27/2015 Coronary atherosclerosis of [place] coronary art*12/27/2015 Palpitations [R00.2] Obstructive sleep apnea [...] Encounter Status:Closed by BRANDON GARCIA on 08/06/19 [facility] OBSOLETEon 05-23-2019 OBSOLETE Procedure (AKEPD) THIAGO FLORES ([id number]) 1955 F Date Time Provider Department 05/23/19 8:00 AM DEVICE CLINIC 1 AKEPD During your visit today, we recorded the following information about you: Referring Provider: NAHOMY GARCIA [[id number]] Allergies As of Date: 05/23/2019 Noted Allergy Reaction RED DYE 11/10/2015 16 - Unknown [id number] REDUCTASE INHIBIT*04/02/2018 17 - Myalgia Comments: Severe cramping Date Reviewed: 04/02/2018 Reviewed by: Winter Mack - Fully Assessed Reason for Visit: ICD [3662] Visit Diagnosis:NICM (nonischemic cardiomyopathy) ([facility]) [I42.8] Prescriptions as of 05/23/2019 [...] failure (HCC) [I50.22] 12/27/2015 Coronary atherosclerosis of [place] coronary art*12/27/2015 Palpitations [R00.2] Obstructive sleep apnea [...] Encounter Status:Closed by LICO BARAHONA on 05/23/19 [facility] Office Visit: [facility] 03-12-20 17 Fall risk assessment No Invalid Interpretation Code [employer] Work Phone: [phone] Protein mass conc Done Invalid Interpretation Code [facility] Work Phone: [phone] Office Visit: [facility] 12-02-19 17 Documentation of current medications (procedure) Done Invalid Interpretation Code [facility] Work Phone: [phone] Fall risk assessment No Invalid Interpretation Code [facility] Work Phone: [phone] Protein mass conc Done [facility] Work Phone: [phone] Lab Report: BNP,B-Type NATRI URETIC PEPTIDEon 08-31-2016 BNP 22.2 pg/mL Invalid Interpretation Code 0-100 [facility] Work Phone: [phone] Lab Report: Basic Metabolic Profile (BMP)on 08-31-2016 Anion gap 11 mmol/L Invalid Interpretation Code 5-15 [facility] Work Phone: [phone] Anion gap 4 molar conc 11 Invalid Interpretation Code 5-15 [facility] Work Phone: [phone] Anion gap molar conc 11 mmol/L 5-15 [employer] Work Phone: [phone] BUN/Creatinine Ratio 29.9 RATIO High 10-20 [employer] Work Phone: [phone] Calcium 9.2 mg/dL Invalid Interpretation Code 8.5-10.1 [facility] Work Phone: [phone] Chloride 101 mmol/L Invalid Interpretation Code 98-107 [employer] Work Phone: [phone] CO2 21.0 mmol/L Invalid Interpretation Code 21.0-32.0 [employer] Work Phone: [phone] CO2 ppres (BldV) 21.0 mmol/L Invalid Interpretation Code 21.0-32.0 [employer] Work Phone: [phone] Creatinine 1.17 mg/dL High 0.55-1.02 [employer] Work Phone: [phone] eGFR (non-black) 50 mL/min/{1.73_m2} Low >60 [employer] Work Phone: [phone] eGFR (non-black) 60 mL/min/{1.73_m2} Invalid Interpretation Code >60 [employer] Work Phone: [phone] EST GFR - AA 60 mL/min Invalid Interpretation Code >60 [employer] Work Phone: [phone] Glucose 292 mg/dL High 70-110 [employer] Work Phone: [phone] Glucose mass conc 292 mg/dL High 70-110 [employer] Work Phone: [phone] Potassium 4.8 mmol/L Invalid Interpretation Code 3.5-5.1 [employer] Work Phone: [phone] Sodium 133 mmol/L Low 136-145 [employer] Work Phone: [phone] Urea nitrogen 35 mg/dL High 7-18 [employer] Work Phone: [phone] Office Visiton 08-23-2016 Dietary management education, guidance, and counseling (procedure) yes Invalid Interpretation Code [facility] Work Phone: [phone] Clinical Lists Update: Pre marketing associate 08-18-2016 Left ventricular Ejection fraction 20 % Invalid Interpretation Code [employer] Work Phone: [phone] Clinical Lists Update: Pre marketing associate 03-31-2016 Alanine aminotransferase (ALT) 13 U/L Invalid Interpretation Code [employer] Work Phone: [phone] Aspartate aminotransferase (AST) 13 U/L Invalid Interpretation Code [employer] Work Phone: [phone] Cholesterol 232 mg/dL High [employer] Work Phone: [phone] Cholesterol to HDL Ratio 5.27 {ratio} High [employer] Work Phone: [phone] HbA1c 7.2 % High [employer] Work Phone: [phone] HDL Cholesterol 44 mg/dL Low [facility] Work Phone: [phone] LDL Cholesterol 137 mg/dL High [employer] Work Phone: [phone] LDL/HDL ratio, serum 3.11 Invalid Interpretation Code [facility] Work Phone: [phone] Triglyceride 256 mg/dL High [facility] Work Phone: [phone] very low density lipoproteins 51 mg/dL High [facility] Work Phone: [phone] Append: Dr. Han Mckeon [facility] Cardiologyon 03-01-2016 Clinical consultation report (record artifact) [id number] Invalid Interpretation Code [facility] Work Phone: [phone] Clinical Lists Update: Prelo marketing associate 01-13-2016 basophils as percent of blood leukocytes, manual count 0.6 % Invalid Interpretation Code [facility] Work Phone: [phone] BNP 34.5 pg/mL Invalid Interpretation Code [facility] Work Phone: [phone] eGFR (non-black) 48 mL/min/{1.73_m2} Low [facility] Work Phone: [phone] eGFR (non-black) 58 mL/min/{1.73_m2} Low [facility] Work Phone: [phone] eosinophils as percent of blood leukocytes, manual count 7.7 % High [facility] Work Phone: [phone] Erythrocyte distribution width Ratio (RBC) 13.3 % [facility] Work Phone: [phone] Erythrocytes (RBC) 3.33 10*6/uL Low [facility] Work Phone: [phone] Glomerular Filtration Rate 58 mL/min/1.73m2 Low [facility] Work Phone: [phone] Hematocrit (HCT) 30.0 % Low [facility] Work Phone: [phone] Hematocrit Volume Fraction (Bld) 30.0 % Low [facility] Work Phone: [phone] Hemoglobin (HGB) 10.0 g/dL Low [facility] Work Phone: [phone] Lymphocytes/100 leukocytes 36.2 % Invalid Interpretation Code [facility] Work Phone: [phone] Lymphocytes/100 WBC (Bld) 36.2 % [facility] Work Phone: [phone] Magnesium 1.9 mg/dL Invalid Interpretation Code [facility] Work Phone: 1) MCH 30.0 pg Invalid Interpretation Code [facility] Work Phone: 1) MCH Entitic mass (RBC) 30.0 pg [facility] Work Phone: [phone] MCHC 33.3 g/dL Invalid Interpretation Code [facility] Work Phone: 1) MCHC mass conc (RBC) 33.3 g/dL [facility] Work Phone: 1) MCV 90.1 fL Invalid Interpretation Code [facility] Work Phone: 1) MCV Entitic volume (RBC) 90.1 fL [facility] Work Phone: 1) Monocytes/100 leukocytes 8.2 % Invalid Interpretation Code [facility] Work Phone: [phone] Monocytes/100 WBC (Bld) 8.2 % [facility] Work Phone: neutrophils, band form as percent of blood leukocytes, manual count 46.6 % Low [facility] Work Phone: [phone] Platelet mean volume Entitic volume (Bld) 9.1 fL [facility] Work Phone: 1) Platelets 301 10*3/mm3 Invalid Interpretation Code [facility] Work Phone: [phone] Platelets #/vol (Bld) 301 10*3/mm3 [facility] Work Phone: 1) PMV by Raji 9.1 fL Invalid Interpretation Code [facility] Work Phone: 1) RBC #/vol (Bld) 3.33 10*6/uL Low [facility] Work Phone: [phone] RDW-CA 13.3 % Invalid Interpretation Code [facility] Work Phone: [phone] Thyroid stimulating hormone (TSH) 1.76 u[iU]/mL Invalid Interpretation Code [facility] Work Phone: 1) WBC #/vol (Bld) 6.7 10*3/uL [facility] Work Phone: [phone] WBC (Leukocytes) 6.7 10*3/uL Invalid Interpretation Code [employer] Phone: [phone] Clinical Lists Update: Prelo marketing associate 01-11-2016 Albumin 4.1 g/dL Invalid Interpretation Code [facility] Work Phone: [phone] Alkaline phosphatase (ALP) 58 U/L Invalid Interpretation Code [facility] Work Phone: [phone] ALP enzyme act/vol (Bld) 58 U/L Invalid Interpretation Code [facility] Work Phone: [phone] Bilirubin (total) 0.6 mg/dL Invalid Interpretation Code [facility] Work Phone: [phone] Protein 6.9 g/dL Invalid Interpretation Code [facility] Work Phone: [phone] Replaced Document: Jenn EPPS Observationson 10-22-2015 BUN (urea nitrogen) Sinus Rhythm -Left bundle branch block. ABNORMAL Invalid Interpretation Code [employer] Phone: [phone] EKG QRS axis -29 deg Invalid Interpretation Code [facility] Work Phone: [phone] GE use only - for [employer] import when terms are not otherwise specified 496 ms Invalid Interpretation Code [employer] [facility] Phone: [phone] P [place] 34 deg Invalid Interpretation Code [facility] Phone: [phone] P wave axis, electrocardiogram 34 deg Invalid Interpretation Code [facility] Work Phone: [phone] HI Interval 168 ms Invalid Interpretation Code [facility] Work Phone: [phone] HI interval, electrocardiogram 168 ms Invalid Interpretation Code [facility] Work Phone: [phone] Pulse (Heart Rate) 68 /min Invalid Interpretation Code [facility] Phone: [phone] QRS axis, electrocardiogram -29 deg Invalid Interpretation Code [facility] Work Phone: [phone] QRS Duration 174 ms Invalid Interpretation Code [facility] Work Phone: [phone] QRS duration, electrocardiogram 174 ms Invalid Interpretation Code [facility] Work Phone: [phone] QT Interval new path ms Invalid Interpretation Code [facility] Work Phone: [phone] QT interval, electrocardiogram new path ms Invalid Interpretation Code [facility] [employer] Work Phone: [phone] QTc Wilson 496 ms Invalid Interpretation Code [facility] Work Phone: [phone] T [place] 36 deg Invalid Interpretation Code [facility] Work Phone: [phone] T wave axis, electrocardiogram 36 deg Invalid Interpretation Code [facility] Work Phone: [phone] Urea nitrogen mass conc Sinus Rhythm -Le ft bundle branch block. ABNORMAL [facility] Work Phone: [phone] Office Visit: [facility] 07-22-19 16 Tobacco smoking status NHIS Former smoker Invalid Interpretation Code [facility] Work Phone: [phone] Tobacco use CPHS Former smoker Invalid Interpretation Code [facility] Work Phone: [phone] External Other: Preferred Me thod of Contacton 06-10-2015 methcontact phone Invalid Interpretation Code [facility] Work Phone: [phone] Patient's prefered method of contact phone Invalid Interpretation Code [facility] Work Phone: [phone] Office Visit: [facility] 06-10-20 15 cardiac risk group C Invalid Interpretation Code [facility] Work Phone: [phone] General cardiovascular disease 10Y risk [#] [place].D'Agostino N/A Invalid Interpretation Code [facility] Work Phone: [phone] Vital Signs Date Time Vital Sign Value Performing Clinician Rocki wilson 12-25-2024 14:36-0400 Body height 162.56 cm Sarah Toth NP-C Work Phone: [facility] 12-25-2024 14:36-0400 Body mass index (BMI) [Ratio] 45.1 kg/m2 Sarah Toth NP-C Work Phone: [facility] 12-25-2024 14:36-0400 Body weight 119.29 kg Sarah Toth INSERT OPERATOR-C Work Phone: [facility] 12-25-2024 14:36-0400 Diastolic blood pressure 72 mm[Hg] Sarah Toth INSERT OPERATOR-C Work Phone: 9(150)267-897178 [place] [address] 12-25-2024 14:36-0400 Heart rate 60 /min Sarah Toth INSERT OPERATOR-C Work Phone: 1(090)636-742908 [place] [address] 12-25-2024 14:36-0400 Respiratory rate 16 /min Sarah Toth INSERT OPERATOR-C Work Phone: 9(177)557-835608 [place] [address] 12-25-2024 14:36-0400 Systolic blood pressure 124 mm[Hg] Sarah Toth INSERT OPERATOR-C Work Phone: 1(121)616-090308 [place] [address] 11-30-2024 15:26-0400 Body temperature 98.2 [degF] Sarah Toth INSERT OPERATOR-C Work Phone: 3(762)864-638708 [place] [address] 11-30-2024 15:26-0400 Diastolic blood pressure 57 mm[Hg] Sarah Toth INSERT OPERATOR-C Work Phone: 8(522)873-491208 [place] [address] 11-30-2024 15:26-0400 Heart rate 60 /min Sarah Toth INSERT OPERATOR-C Work Phone: 1(864)828-359008 [place] [address] 11-30-2024 15:26-0400 Respiratory rate 18 /min Sarah Toth INSERT OPERATOR-C Work Phone: 9(987)147-880408 [place] [address] 11-30-2024 15:26-0400 SaO2% (BldA) [Mass fraction] 96 % Sarah Toth INSERT OPERATOR-C Work Phone: 4(060)059-303808 [place] [address] 11-30-2024 15:26-0400 Systolic blood pressure 110 mm[Hg] Sarah Toth INSERT OPERATOR-C Work Phone: 1(195)672-731108 [place] [address] 11-30-2024 11:39-0400 Body height 162.56 cm Sarah Toth INSERT OPERATOR-C Work Phone: 4(964)697-801108 [place] [address] 11-30-2024 11:39-0400 Body mass index (BMI) [Ratio] 44.8 kg/m2 Sarah Toth INSERT OPERATOR-C Work Phone: 6(956)471-984908 [place] [address] 11-30-2024 11:39-0400 Body weight 118.38 kg Sarah Toth INSERT OPERATOR-C Work Phone: 6(499)370-064608 [place] [address] 10-23-2024 13:55-0400 Body height 162.56 cm Sarahamerico Toth INSERT OPERATOR-C Work Phone: 4(027)958-653808 [place] [address] 10-23-2024 13:55-0400 Body mass index (BMI) [Ratio] 44.9 kg/m2 Sarah Navneet INSERT OPERATOR-C Work Phone: 8(585)661-129208 [place] [address] 10-23-2024 13:55-0400 Body weight 118.61 kg Sarahamerico Toth INSERT OPERATOR-C Work Phone: 8(162)409-302008 [place] [address] 10-23-2024 13:55-0400 Diastolic blood pressure 74 mm[Hg] Sarahamerico Toth INSERT OPERATOR-C Work Phone: 2(368)708-159708 [place] [address] 10-23-2024 13:55-0400 Heart rate 60 /min Sarahamerico Toth INSERT OPERATOR-C Work Phone: 3(884)024-522208 [place] [address] 10-23-2024 13:55-0400 SaO2% (BldA) [Mass fraction] 95 % Sarahamerico Toth INSERT OPERATOR-C Work Phone: 1(655)301-308208 [place] [address] 10-23-2024 13:55-0400 Systolic blood pressure 117 mm[Hg] Sarahamerico Toth INSERT OPERATOR-C Work Phone: 6(808)867-285608 [place] [address] 07-16-2024 14:30-0500 Body mass index (BMI) [Ratio] 44.1 kg/m2 Sarah Navneet INSERT OPERATOR-C Work Phone: 5(457)126-354008 [place] [address] 07-16-2024 14:30-0500 Body weight 116.57 kg Sarahamerico Toth INSERT OPERATOR-C Work Phone: 4(025)993-568608 [place] [address] 07-16-2024 14:30-0500 Diastolic blood pressure 77 mm[Hg] Sarahamerico Toth INSERT OPERATOR-C Work Phone: 3(404)839-083808 [place] [address] 07-16-2024 14:30-0500 Heart rate 61 /min Sarahamerico Toth INSERT OPERATOR-C Work Phone: 4(474)166-647508 [place] [address] 07-16-2024 14:30-0500 SaO2% (BldA) [Mass fraction] 94 % Sarahamerico Toth INSERT OPERATOR-C Work Phone: 1(222)706-726708 [place] [address] 07-16-2024 14:30-0500 Systolic blood pressure 149 mm[Hg] Sarah Toth INSERT OPERATOR-C Work Phone: 2(044)823-325078 [place] [address] 07-02-2024 13:02-0500 Body temperature 97.6 [degF] Sarah Toth INSERT OPERATOR-C Work Phone: 1(060)768-709678 [place] [address] 07-02-2024 13:02-0500 Diastolic blood pressure 69 mm[Hg] Sarah Toth INSERT OPERATOR-C Work Phone: 6(457)819-680878 [place] [address] 07-02-2024 13:02-0500 Heart rate 60 /min Sarah Toth INSERT OPERATOR-C Work Phone: 7(823)988-739078 [place] [address] 07-02-2024 13:02-0500 Respiratory rate 18 /min Sarah Toth INSERT OPERATOR-C Work Phone: 1(557)872-426378 [place] [address] 07-02-2024 13:02-0500 SaO2% (BldA) [Mass fraction] 98 % Sarah Toth INSERT OPERATOR-C Work Phone: 0(410)440-935878 [place] [address] 07-02-2024 13:02-0500 Systolic blood pressure 154 mm[Hg] Sarah Toth INSERT OPERATOR-C Work Phone: 8(147)463-524678 [place] [address] 09-13-2023 18:06-0400 Body temperature 97 [degF] [facility] Work Phone: 6(658)570-998978 [place] [address] 09-13-2023 18:06-0400 Diastolic blood pressure 79 mm[Hg] [facility] Work Phone: 8(494)761-068778 [place] [address] 09-13-2023 18:06-0400 Heart rate 60 /min [facility] Work Phone: 0(315)000-798878 [place] [address] 09-13-2023 18:06-0400 Respiratory rate 14 /min [facility] Work Phone: 5(945)438-001078 [place] [address] 09-13-2023 18:06-0400 SaO2% (BldA) [Mass fraction] 97 % [facility] Work Phone: 5(942)891-017278 [place] [address] 09-13-2023 18:06-0400 Systolic blood pressure 141 mm[Hg] [facility] Work Phone: [facility] 09-13-2023 14:47-0400 Body height 165.1 cm [facility] Work Phone: 7(743)544-091008 [place] [address] 09-13-2023 14:47-0400 Body mass index (BMI) [Ratio] 38.7 kg/m2 [facility] Work Phone: 4(896)945-543408 [place] [address] 09-13-2023 14:47-0400 Body weight 105.74 kg [facility] Work Phone: 7(165)737-004408 [place] [address] 07-04-2023 09:05-0500 Body height 165.1 cm [facility] Work Phone: 9(164)885-762808 [place] [address] 07-04-2023 09:05-0500 Body mass index (BMI) [Ratio] 37.5 kg/m2 [facility] Work Phone: 2(568)072-098908 [place] [address] 07-04-2023 09:05-0500 Body temperature 98.7 [degF] [facility] Work Phone: 9(953)286-897408 [place] [address] 07-04-2023 09:05-0500 Body weight 102.28 kg [facility] Work Phone: 9(446)512-462408 [place] [address] 07-04-2023 09:05-0500 Diastolic blood pressure 76 mm[Hg] [facility] Work Phone: 5(120)120-509108 [place] [address] 07-04-2023 09:05-0500 Heart rate 70 /min [facility] Work Phone: 9(171)028-210208 [place] [address] 07-04-2023 09:05-0500 Respiratory rate 16 /min [facility] Work Phone: 8(442)556-308808 [place] [address] 07-04-2023 09:05-0500 SaO2% (BldA) [Mass fraction] 96 % [facility] Work Phone: 6(279)880-292308 [place] [address] 07-04-2023 09:05-0500 Systolic blood pressure 138 mm[Hg] [facility] Work Phone: 3(281)508-641208 [place] [address] 07-02-2023 09:50-0500 Body mass index (BMI) [Ratio] 37 kg/m2 [facility] Work Phone: 8(680)994-302208 [place] [address] 07-02-2023 09:50-0500 Body weight 101.15 kg [facility] Work Phone: 3(360)680-188408 [place] [address] 07-02-2023 09:50-0500 Diastolic blood pressure 76 mm[Hg] [facility] Work Phone: 2(396)827-413508 [place] [address] 07-02-2023 09:50-0500 Heart rate 68 /min [facility] Work Phone: 6(469)570-799908 [place] [address] 07-02-2023 09:50-0500 Respiratory rate 18 /min [facility] Work Phone: 2(458)848-314308 [place] [address] 07-02-2023 09:50-0500 SaO2% (BldA) [Mass fraction] 98 % [facility] Work Phone: 0(191)861-870908 [place] [address] 07-02-2023 09:50-0500 Systolic blood pressure 121 mm[Hg] [facility] Work Phone: 4(781)352-687208 [place] [address] 04-02-2023 08:48-0400 Body mass index (BMI) [Ratio] 38 kg/m2 [facility] Work Phone: 2(099)044-256308 [place] [address] 04-02-2023 08:48-0400 Body temperature 97.6 [degF] [facility] Work Phone: 2(395)892-100008 [place] [address] 04-02-2023 08:48-0400 Body weight 103.53 kg [facility] Work Phone: 8(888)783-764708 [place] [address] 04-02-2023 08:48-0400 Diastolic blood pressure 76 mm[Hg] [facility] Work Phone: 6(501)514-144008 [place] [address] 04-02-2023 08:48-0400 Heart rate 72 /min [facility] Work Phone: 0(283)620-007708 [place] [address] 04-02-2023 08:48-0400 Respiratory rate 16 /min [facility] Work Phone: 8(665)567-273708 [place] [address] 04-02-2023 08:48-0400 SaO2% (BldA) [Mass fraction] 97 % [facility] Work Phone: 1(803)556-532808 [place] [address] 04-02-2023 08:48-0400 Systolic blood pressure 146 mm[Hg] [facility] Work Phone: 0(255)720-297508 [place] [address] 02-01-2023 09:28-0400 Body height 165.1 cm [facility] Work Phone: 0(254)040-111308 [place] [address] 12-28-2022 09:43-0400 Body mass index (BMI) [Ratio] 37.5 kg/m2 [facility] Work Phone: 0(486)971-695108 [place] [address] 12-28-2022 09:43-0400 Body weight 102.51 kg [facility] Work Phone: 0(968)175-555908 [place] [address] 12-28-2022 09:43-0400 Diastolic blood pressure 40 mm[Hg] [facility] Work Phone: 0(916)932-603708 [place] [address] 12-28-2022 09:43-0400 Heart rate 64 /min [facility] Work Phone: 7(958)138-362708 [place] [address] 12-28-2022 09:43-0400 Respiratory rate 20 /min [facility] Work Phone: 5(263)528-456308 [place] [address] 12-28-2022 09:43-0400 Systolic blood pressure 100 mm[Hg] [facility] Work Phone: 5(395)849-921908 [place] [address] 12-28-2022 09:08-0400 Body mass index (BMI) [Ratio] 38 kg/m2 [facility] Work Phone: 2(493)806-271508 [place] [address] 12-28-2022 09:08-0400 Body temperature 98 [degF] [facility] Work Phone: 6(944)456-849308 [place] [address] 12-28-2022 09:08-0400 Body weight 103.58 kg [facility] Work Phone: 8(668)695-624908 [place] [address] 12-28-2022 09:08-0400 Diastolic blood pressure 82 mm[Hg] [facility] Work Phone: 2(682)245-255408 [place] [address] 12-28-2022 09:08-0400 Heart rate 60 /min [facility] Work Phone: 2(577)067-026608 [place] [address] 12-28-2022 09:08-0400 Respiratory rate 16 /min [facility] Work Phone: 7(752)111-364208 [place] [address] 12-28-2022 09:08-0400 SaO2% (BldA) [Mass fraction] 97 % [facility] Work Phone: 3(618)890-029508 [place] [address] 12-28-2022 09:08-0400 Systolic blood pressure 148 mm[Hg] [facility] Work Phone: 8(658)520-666208 [place] [address] 11-22-2022 15:32-0400 Respiratory rate 18 /min [facility] Work Phone: 6(996)758-859808 [place] [address] 11-22-2022 13:34-0400 Body temperature 98.5 [degF] [facility] Work Phone: 9(100)598-553508 [place] [address] 11-22-2022 13:34-0400 Diastolic blood pressure 87 mm[Hg] [facility] Work Phone: 6(270)554-274808 [place] [address] 11-22-2022 13:34-0400 Heart rate 88 /min [facility] Work Phone: 3(815)964-879108 [place] [address] 11-22-2022 13:34-0400 SaO2% (BldA) [Mass fraction] 97 % [facility] Work Phone: 2(052)929-534808 [place] [address] 11-22-2022 13:34-0400 Systolic blood pressure 103 mm[Hg] [facility] Work Phone: 0(002)534-524008 [place] [address] 10-19-2022 09:12-0400 Body mass index (BMI) [Ratio] 37 kg/m2 [facility] Work Phone: 8(359)345-615508 [place] [address] 10-19-2022 09:12-0400 Body temperature 98.6 [degF] [facility] Work Phone: 9(644)738-978908 [place] [address] 10-19-2022 09:12-0400 Body weight 101.15 kg [facility] Work Phone: 5(585)209-099808 [place] [address] 10-19-2022 09:12-0400 Diastolic blood pressure 73 mm[Hg] [facility] Work Phone: [phone] [place] [address] 10-19-2022 09:12-0400 Heart rate 74 /min [facility] Work Phone: [facility] 10-19-2022 09:12-0400 Respiratory rate 18 /min [facility] Work Phone: [facility] 10-19-2022 09:12-0400 SaO2% (BldA) [Mass fraction] 95 % [facility] Work Phone: [facility] 10-19-2022 09:12-0400 Systolic blood pressure 137 mm[Hg] [facility] Work Phone: [facility] 06-01-2022 08:51-0500 Body height 165.1 cm [facility] 06-01-2022 08:51-0500 Body mass index (BMI) [Ratio] 38.2 kg/m2 [facility] 06-01-2022 08:51-0500 Body temperature 97.6 [degF] [facility] 06-01-2022 08:51-0500 Body weight 104.32 kg [facility] 06-01-2022 08:51-0500 Diastolic blood pressure 94 mm[Hg] [facility] 06-01-2022 08:51-0500 Heart rate 71 /min [facility] 06-01-2022 08:51-0500 Respiratory rate 18 /min [facility] 06-01-2022 08:51-0500 SaO2% (BldA) [Mass fraction] 96 % [facility] 06-01-2022 08:51-0500 Systolic blood pressure 170 mm[Hg] [facility] 03-12-2017 10:31-0400 BMI (Body Mass Index) 42.93 kg/m2 Aaliyah Rivera [facility] Work Phone: 03-12-2017 10:31-0400 BP Diastolic 70 mm[Hg] Aaliyah Rivera [facility] Work Phone: 03-12-2017 10:31-0400 BP Systolic 142 mm[Hg] [facility] Work Phone: 03-12-2017 10:31-0400 Pulse [...] Date Encounter Type Care Provider Facility Start: 12-25-2024 End: 12-25-2024 ambulatory Sarah HORNER Work Phone: [facility] Start: 12-25-2024 End: 12-25-[address] Misbah Marcum MD -[facility] Work Phone: Start: 11-30-2024 End: 11-30-2024 Emergency department patient visit Sarah Navneet INSERT OPERATOR-C Work Phone: -Emergency Department Work Phone: Start: 10-23-2024 End: 10-23-2024 Patient encounter procedure Lavonne Bridges INSERT OPERATOR-C -[facility] Work Phone: Start: 10-23-2024 End: 10-23-2024 ambulatory Sarah Toth INSERT OPERATOR-C Work Phone: [facility] Work Phone: Start: 10-22-2024 End: 10-22-2024 ambulatory Sarah Toth INSERT OPERATOR-C Work Phone: [facility] Work Phone: Start: 10-22-2024 End: 10-22-2024 Patient encounter procedure VSC Sarah Toth INSERT OPERATOR-C -Laboratory [facility] Start: 10-22-2024 End: 10-22-2024 ambulatory Sarah Navneet [facility] Facility:[facility] Start: 10-13-2024 End: 10-13-2024 ambulatory Misbah Marcum Facility:[facility] Start: 10-13-2024 End: 10-13-[address] [facility] Work Phone: Start: 08-19-2024 ambulatory [facility] Facility[facility] Start: 07-16-2024 End: 07-16-2024 Patient encounter procedure Lavonne Bridges INSERT OPERATOR-C -[facility] Work Phone: Start: 07-16-2024 End: 07-16-2024 ambulatory Lavonne Bridges Facility:[facility] Start: 07-14-2024 End: 07-14-[address] [facility] Facility:[facility] Start: 07-14-2024 End: 07-14-[address] [facility] Work Phone: Start: 07-02-2024 End: 07-[facility] Start: 07-02-2024 End: 07-02-2024 Patient encounter procedure Kaye SAMSON -[facility] Work Phone: Start: 07-02-2024 End: 07-02-2024 [facility] Start: 04-16-2024 End: 04-16-2024 ambulatory Lavonne Cyrus Facility:[facility] Start: 04-14-2024 End: 04-14-[address] [facility] Facility:[facility] Start: 04-10-2024 End: 04-10-[address] [facility] Facility:[facility] Start: 03-13-2024 End: 03-13-2024 [facility] Start: 02-19-[address] [facility] Fa [facility] Start: 02-18-2024 End: 02-18-2024 ambulatory [facility] Jossue Facility:[facility] Start: 02-17-2024 End: 02-18-2024 Evaluation and management of inpatient Taty L Eva Facility:[facility] Start: 02-17-2024 ambulatory Taty L White Facility :[facility] Start: 01-17-2024 End: 01-17-2024 ambulatory [facility] Facility:[facility] Start: 01-09-2024 End: 01-09-2024 ambulatory Misbah Jossue Facility:[facility] Start: 12-31-2023 End: 01-01-[address] 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) Start: 09-13-2023 End: 09-13-2023 Emergency department patient visit [facility] Work Phone: [facility]-Emergency Department Work Phone: Start: 07-18-2023 End: 07-18-2023 ambulatory [facility] Work Phone: [facility] Work Phone: Start: 07-18-2023 End: 07-18-2023 Patient encounter procedure [facility] Work Phone: [facility]-Laboratory Work Phone: Start: 07-04-2023 End: 07-04-2023 Patient encounter procedure [facility] Work Phone: [facility] Endocr[facility]ology Work Phone: Start: 07-02-2023 End: 07-02-2023 Patient encounter procedure [facility] Work Phone: [facility] Work Phone: Start: 05-28-2023 End: 05-28-2023 ambulatory SHANTE L SWIHART Facility:[facility] Start: 04-02-2023 End: 04-02-2023 Patient encounter procedure [facility] Work Phone: [facility] Endocr[facility]ology Work Phone: Start: 03-05-2023 End: 03-05-2023 ambulatory SHANTE L SWIHART Facility:[facility] Start: 03-05-2023 End: 03-05-2023 Subsequent hospital visit by physician [facility] Work Phone: Radiology Comment on above: 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] Start: 02-22-2023 End: 02-22-2023 ambulatory SHANTE L SWIHART Facility:[facility] Start: 02-05-2023 End: 02-05-2023 Patient encounter procedure [facility] Work Phone: [facility] Work Phone: Start: 02-01-2023 End: 02-01-2023 ambulatory [facility] Work Phone: [facility] Work Phone: Start: 02-01-2023 End: 02-01-2023 Patient encounter procedure [facility] Work Phone: [facility]-Laboratory Work Phone: Start: 02-01-2023 End: 02-01-2023 Patient encounter procedure [facility] Work Phone: [facility] Work Phone: Start: 01-05-2023 End: 01-05-2023 Patient encounter procedure [facility] Work Phone: [facility] [place] Work Phone: Start: 01-03-2023 End: 01-03-2023 ambulatory SHANTE DUDLEY Facility:[facility] Start: 12-28-2022 End: 12-28-2022 Patient encounter procedure [facility] Work Phone: [facility] End[facility]ology Work Phone: Start: 12-27-2022 End: 12-27-2022 Patient encounter procedure [facility] Work Phone: [facility]-Laboratory Work Phone: Start: 11-22-2022 End: 11-22-2022 Emergency department patient visit [facility] Work Phone: [facility]-Emergency Department Work Phone: Start: 10-19-2022 End: 10-19-2022 Patient encounter procedure [facility] Work Phone: [facility] Endocrinology Work Phone: Start: 10-02-2022 End: 10-02-2022 ambulatory [facility] Work Phone: Start: 10-02-2022 End: 10-02-2022 Patient encounter procedure [facility]-Laboratory Start: 09-27-2022 End: 09-27-2022 ambulatory [facility] Work Phone: Start: 09-27-2022 End: 09-27-2022 Patient encounter procedure [facility]-Outpatient Breast Imaging Start: 07-31-2022 End: 07-31-2022 ambulatory [facility] Work Phone: Start: 07-31-2022 End: 07-31-2022 Patient encounter procedure [facility]-Laboratory Start: 06-01-2022 End: 06-01-2022 Emergency department patient visit [facility]-Emergency Department Start: 10-06-2021 End: 10-06-2021 Patient encounter procedure Shaka Alonso Work Phone: Podiatry Comment on above: Onychomycosis (Prima ry Dx); Pain in toe of left foot; Pain in toe of right foot; Other diabetic neurological complication associated with type 2 diabetes mellitus (HCC); Hyperkeratosis Start: 10-15-2018 Patient encounter procedure NAHOMY GARCIA Facility:[facility] Start: 07-09-2018 End: 09-27-2018 Patient encounter procedure NAHOMY GARCIA Facility:[facility] Start: 04-02-2018 End: 04-02-2018 Patient encounter procedure NAHOMY GARCIA Facility:[facility] Start: 01-29-2018 End: 01-29-2018 Patient encounter procedure NAHOMY GARCIA Facility:[facility] Start: 10-29-2017 Patient encounter procedure NAHOMY GARCIA Facility:[facility] Start: 10-16-2017 Patient encounter procedure NAHOMY GARCIA Facility:[facility] Procedures Date Procedure Procedure Detail Performing Clinician Start: 11-30-2024 Estimated creatinine clearance Sarah HORNER Work Phone: Start: 11-30-2024 X-ray of chest, PA a nd lateral views Sarah HORNER Work Phone: Start: 10-22-2024 Vitamin D, 25-hydrox y measurement Sarah HORNER Work Phone: Comment on above: Vitamin D StatusDefi ciency: <20 ng/mL (50nmol/L)Insufficiency: 20-30 ng/mL (50-75 nmol/L)Sufficiency: 30-100 ng/mL (75-250 nmol/L)Toxicity: >100 ng/mL (>250 nmol/L) Start: 07-02-2024 Measurement of renal function Sarah Toth INSERT OPERATOR-C Work Phone: Comment on above: GFR Calc Start: 07-02-2024 Microalbuminuria measurement Sarah Toth INSERT OPERATOR-C Work Phone: Start: 07-02-2024 Vitamin D, 25-hydrox y measurement Sarah Toth INSERT OPERATOR-C Work Phone: Comment on above: Vitamin D [...] Work Phone: Start: 09-13-2023 Plain chest X-ray [facility] Work Phone: Start: 03-05-2023 Us abdominal real ti me w/image limited Jay Jay Garcia MD Work Phone: Start: 11-22-2022 Plain X-ray abdomen [facility] Work Phone: Start: 09-27-2022 Screening mammography Start: 03-12-2017 End: 03-12-2017 Follow Up Appt 6 months Kaye grant PA-C Work Phone: Start: 03-12-2017 End: 03-12-2017 PFM Kaye Burris PA-C Work Phone: Start: 12-01-2016 End: 12-01-2016 Follow Up Appt 3 months Kaye grant PA-C Work Phone: Start: 12-01-2016 End: 12-01-2016 Follow Up Appt 6 months PALMIRA JimenezC Work Phone: Start: 12-01-2016 End: 12-01-2016 MMPatito Kaye Burris PA-C Work Phone: Start: 12-01-2016 End: 12-01-2016 PFM Kaye Burris PA-C Work Phone: Start: 12-01-2016 End: 12-01-2016 Follow Up Appt 3 months Kaye grant PA-C Work Phone: Start: 12-01-2016 End: 12-01-2016 Follow Up Appt 6 months Kaye grant PA-C Work Phone: Start: 12-01-2016 End: 12-01-2016 MM Kaye Burris PA-C Work Phone: Start: 12-01-2016 [...] PA-C Work Phone: Start: 02-29-2016 End: 02-29-2016 PFPatito Burris PA-C Work Phone: Start: 02-29-2016 End: 02-29-2016 Follow Up Appt Other Kaye hernadez PA-C Work Phone: Start: 02-29-2016 End: 02-29-2016 PFPatito Burris PA-C Work Phone: Start: 01-19-2016 End: 02-23-2016 Carotid duplex Stewart Boggs MD Start: 01-19-2016 End: 01-19-2016 Follow Up Appt 6 weeks Stewart Boggs MD Start: 01-19-2016 End: 11-10-2016 Follow Up Appt Other Stewart Boggs MD Start: 01-19-2016 End: 01-19-2016 DAY Bogsg MD Start: 01-19-2016 End: 02-23-2016 Carotid duplex Stewart Boggs MD Start: 01-19-2016 End: 01-19-2016 Follow Up Appt 6 weeks Stewart Boggs MD Start: 01-19-2016 End: 11-10-2016 Follow Up Appt Other Stewart Boggs MD Start: 01-19-2016 End: 01-19-2016 MMPatito Boggs MD Start: 11-29-2015 End: 11-29-2015 Follow Up Appt 3 months Kaye grant PA-C Work Phone: Start: 11-29-2015 End: 11-29-2015 Follow Up Appt 6 months Kaye grant PA-C Work Phone: Start: 11-29-2015 End: 11-29-2015 MMPatito Burris PA-C Work Phone: Start: 11-29-2015 End: 11-29-2015 PF Kaye Burris PA-C Work Phone: Start: 11-29-2015 End: 11-29-2015 Follow Up Appt 3 months Kaye grant PA-C Work Phone: Start: 11-29-2015 End: 11-29-2015 Follow Up Appt 6 months Kaye grant PA-C Work Phone: Start: 11-29-2015 End: 11-29-2015 MM Kaye Burris PA-C Work Phone: Start: 11-29-2015 [...] MD Start: 09-29-2015 End: 09-30-2015 Referral to superintendent [place] Stewart abraham MD Start: 09-29-2015 End: 09-30-2015 Referral to superintendent [place] Stewart abraham MD Start: 09-20-2015 End: 09-21-2015 Referral to superintendent [place] Stewart abraham MD Start: 09-20-2015 End: 11-10-2016 Us abdominal real time w/image limited Stewart Boggs MD Start: 09-20-2015 End: 11-10-2016 Cardiac Rehab Stewart Boggs MD Start: 09-20-2015 End: 11-10-2016 Echo exam of abdomen Stewart Boggs MD Start: 09-20-2015 End: 09-21-2015 Referral to superintendent [place] Stewart abraham MD Start: 07-22-2015 End: 11-05-2015 [...] PFM Kaye Burris PA-C Work Phone: Start: 05-27-2015 End: 06-09-2015 Nuclear stress test -Uma Boggs MD Start: 05-27-2015 End: 06-09-2015 Nuclear stress test -Uma Boggs MD SARS-CoV-2 & FLU Ant igen (Rapid) Plan of Treatment Date Care Activity Detail Author Start: 11-30-2024 [facility] Start: 11-30-2024 [facility] Start: 11-26-2024 Glaucoma screening Dilated Retinal Exam [facility] Start: 02-23-2024 Hepatitis C antibody, confirmatory test Dilated Retinal Exam [facility] Start: 02-10-2024 Influenza vaccination Influenza Vaccine (Season Ended) [facility] Start: 09-13-2023 [facility] Start: 06-11-2023 Advance Directive Discussion Advance Directive Discussion [facility] Start: 06-11-2023 Behavioral Health Screening Behavioral Health Screening [facility] Start: 02-09-2023 Covid-19 Vaccine ( season) Covid-19 Vaccine ( season) [facility] Start: 02-09-2023 Influenza vaccination Influenza Vaccine (#1) [facility] Start: 06-11-2022 Advance Directive Discussion Advance Directive Discussion [facility] Start: 06-11-2022 Depression Assessment Depression Assessment [facility] Start: 06-01-2022 [facility] Start: 12-10-2021 3 comp foot exam completed DIABETIC FOOT EXAM [facility] Start: 12-10-2021 Diabetic foot examination Diabetic Foot Exam [facility] Start: 10-18-2021 Shingrix Vaccine (2 of 2) Shingrix Vaccine (2 of 2) [facility] Start: 06-11-2021 ADVANCE DIRECTIVE DISCUSSION ADVANCE DIRECTIVE DISCUSSION [facility] Start: 05-19-2020 Pneumococcal Vaccine: 65+ (2 - PPSV23 or PCV20) Pneumococcal Vaccine: 65+ (2 - PPSV23 or PCV20) [facility] Start: 05-19-2020 Pneumococcal Vaccine: 65+ (2 of 2 - PPSV23 or PCV20) Pneumococcal Vaccine: 65+ (2 of 2 - PPSV23 or PCV20) [facility] Start: 01-31-2019 Hepatitis C antibody, confirmatory test DILATED RETINAL EXAM [facility] Start: 11-08-2018 Influenza vaccination LUNG CANCER SCREENING [facility] Start: 2018 BONE DENSITY BONE DENSITY [facility] Start: 2018 Bone Density Screening Bone Density Screening [facility] Start: 2018 PNEUMOVAX AGE 65 AND OVER WITH 5YR LOOKBACK (#1) PNEUMOVAX AGE 65 AND OVER WITH 5YR LOOKBACK (#1) [facility] Start: 2018 Screening for osteoporosis Bone Density Screening [facility] Start: 05-05-2018 Hemoglobin A1c measurement HbA1C [facility] Start: 05-05-2018 Hemoglobin A1c/Hemoglobin.total in Blood HBA1C [facility] Start: 07-17-2017 Hepatitis B surface antibody level LDL Cholesterol [facility] Start: 07-16-2017 End: 07-16-2017 Appointment Appointment [facility] Work Phone: Start: 03-12-2017 End: 03-12-2017 Appointment Appointment [facility] Work Phone: Start: 03-12-2017 End: 03-12-2017 Follow Up Appt 6 months Follow Up Appt 6 months [facility] Work Phone: Start: 03-12-2017 End: 03-12-2017 PFM PFM [facility] Work Phone: Start: 12-01-2016 End: 12-01-2016 Follow Up Appt 3 months Follow Up Appt 3 months [facility] Work Phone: Start: 12-01-2016 End: 12-01-2016 Follow Up Appt 6 months Follow Up Appt 6 months [facility] Work Phone: Start: 12-01-2016 End: 12-01-2016 MMM MMM [facility] Work Phone: Start: 12-01-2016 End: 12-01-2016 PFM PFM [facility] Work Phone: Start: 12-01-2016 End: 12-01-2016 Follow Up Appt 3 months Follow Up Appt 3 months [facility] Work Phone: Start: 12-01-2016 End: 12-01-2016 Follow Up Appt 6 months Follow Up Appt 6 months [facility] Work Phone: Start: 12-01-2016 End: 12-01-2016 MMM MMM [facility] Work Phone: Start: 12-01-2016 End: 12-01-2016 PFM PFM [facility] Work Phone: Start: 08-23-2016 End: 08-31-2016 *BMP *BMP [facility] Work Phone: Start: 08-23-2016 End: 08-23-2016 Follow Up Appt 3 months Follow Up Appt 3 months [facility] Work Phone: Start: 08-23-2016 End: 08-23-2016 MMM MMM [facility] Work Phone: Start: 08-23-2016 End: 08-31-2016 Natriuretic peptide B mass conc (Bld) *Brain Natriuretic Peptide BNP [facility] Work Phone: Start: 08-23-2016 End: 08-31-2016 *BMP *BMP [facility] Work Phone: Start: 08-23-2016 End: 08-31-2016 BNP *Brain Natriuretic Peptide BNP [facility] Work Phone: Start: 08-23-2016 End: 08-23-2016 Follow Up Appt 3 months Follow Up Appt 3 months [facility] Work Phone: Start: 08-23-2016 End: 08-23-2016 MMM MMM [facility] Work Phone: Start: 07-17-2016 End: 03-12-2017 *Hepatic Function Panel *Hepatic Function Panel [facility] Work Phone: Start: 07-17-2016 End: 03-12-2017 Lipid 1996 panel *Lipid Profile CC PCP [facility] Work Phone: Start: 07-17-2016 End: 01-19-2016 *Hepatic Function Panel *Hepatic Function Panel [facility] Work Phone: Start: 07-17-2016 End: 01-19-2016 Lipid panel [AGGREGATE] *Lipid Profile CC PCP [facility] Work Phone: Start: 03-11-2016 End: 04-10-2016 Lipid 1996 panel *Lipid Profile CC PCP [facility] Work Phone: Start: 03-11-2016 End: 04-10-2016 Lipid panel [AGGREGATE] *Lipid Profile CC PCP [facility] Work Phone: Start: 02-29-2016 End: 02-29-2016 Follow Up Appt Other Follow Up Appt Other [facility] Work Phone: Start: 02-29-2016 End: 02-29-2016 PFM PFM [facility] Work Phone: Start: 02-29-2016 End: 02-29-2016 Follow Up Appt Other Follow Up Appt Other [facility] Work Phone: Start: 02-29-2016 End: 02-29-2016 PFM PFM [facility] Work Phone: Start: 01-19-2016 End: 01-19-2016 Carotid duplex Carotid duplex [facility] Work Phone: Start: 01-19-2016 End: 01-19-2016 Follow Up Appt 6 weeks Follow Up Appt 6 weeks [facility] Work Phone: Start: 01-19-2016 End: 11-10-2016 Follow Up Appt Other Follow Up Appt Other [facility] Work Phone: Start: 01-19-2016 End: 01-19-2016 MMM MMM [facility] Work Phone: Start: 01-19-2016 End: 01-19-2016 Carotid duplex Carotid duplex [facility] Work Phone: Start: 01-19-2016 End: 01-19-2016 Follow Up Appt 6 weeks Follow Up Appt 6 weeks [facility] Work Phone: Start: 01-19-2016 End: 11-10-2016 Follow Up Appt Other Follow Up Appt Other [facility] Work Phone: Start: 01-19-2016 End: 01-19-2016 MMM MMM [facility] Work Phone: Start: 11-29-2015 End: 11-29-2015 Follow Up Appt 3 months Follow Up Appt 3 months [facility] Work Phone: Start: 11-29-2015 End: 11-29-2015 Follow Up Appt 6 months Follow Up Appt 6 months [facility] Work Phone: Start: 11-29-2015 End: 11-29-2015 MMM MMM [facility] Work Phone: Start: 11-29-2015 End: 11-29-2015 PFM PFM [facility] Work Phone: Start: 11-29-2015 End: 11-29-2015 Follow Up Appt 3 months Follow Up Appt 3 months [facility] Work Phone: Start: 11-29-2015 End: 11-29-2015 Follow Up Appt 6 months Follow Up Appt 6 months [facility] Work Phone: Start: 11-29-2015 End: 11-29-2015 MMM MMM [facility] Work Phone: Start: 11-29-2015 End: 11-29-2015 PFM PFM [facility] Work Phone: Start: 10-22-2015 End: 10-22-2015 Ecg routine ecg w/least 12 lds w/i&r EKG (In office) [facility] Work Phone: Start: 10-22-2015 End: 10-22-2015 Follow Up Appt 6 weeks Follow Up Appt 6 weeks [facility] Work Phone: Start: 10-22-2015 End: 10-22-2015 MMM MMM [facility] [employer] Work Phone: Start: 10-22-2015 End: 10-22-2015 Electrocardiogram, complete EKG (In office) [facility] Work Phone: Start: 10-22-2015 End: 10-22-2015 Follow Up Appt 6 weeks Follow Up Appt 6 weeks [facility] [employer] Work Phone: Start: 10-22-2015 End: 10-22-2015 MMM MMM [facility] [employer] Work Phone: Start: 09-29-2015 End: 09-29-2015 Cardiac Referral Cardiac Referral Nahomy Garcia MD, [address], [place], [address] [facility] Work Phone: Start: 09-29-2015 End: 09-29-2015 Cardiac Referral Cardiac Referral Nahomy Garcia MD, [address], [place], [address] [facility] Work Phone: Start: 09-20-2015 End: 11-05-2015 Cardiac Rehab Cardiac Rehab [address] [place], [address] [facility] Work Phone: Start: 09-20-2015 End: 11-05-2015 External Counterpulsation Therapy External Counterpulsation Therapy [address] [place], [address] [facility] Work Phone: Start: 09-20-2015 End: 09-20-2015 Us abdominal real time w/image limited US Abdominal (aneurysm screening) [facility] Work Phone: Start: 09-20-2015 End: 11-05-2015 Cardiac Rehab Cardiac Rehab [address] [place], [address] [facility] Work Phone: Start: 09-20-2015 End: 09-20-2015 Echo exam of abdomen US Abdominal (aneurysm screening) [facility] Work Phone: Start: 09-20-2015 End: 11-05-2015 External Counterpulsation Therapy External Counterpulsation Therapy [address] [place], [address] [facility] Work Phone: Start: 07-22-2015 End: 07-22-2015 Echocardiography Echocardiogram (limited) [facility] Work Phone: Start: 07-22-2015 End: 07-22-2015 Follow Up Appt 3 months Follow Up Appt 3 months [facility] Work Phone: Start: 07-22-2015 End: 07-22-2015 MMM MMM [facility] Work Phone: Start: 07-22-2015 End: 07-22-2015 Echocardiography Echocardiogram (limited) [facility] Work Phone: Start: 07-22-2015 End: 07-22-2015 Follow Up Appt 3 months Follow Up Appt 3 months [facility] Work Phone: Start: 07-22-2015 End: 07-22-2015 MMM MMM [facility] Work Phone: Start: 06-21-2015 End: 06-23-2015 *BMP *BMP [facility] Work Phone: Start: 06-21-2015 End: 06-23-2015 *BMP *BMP [facility] Work Phone: Start: 06-10-2015 End: 07-15-2015 Follow Up Appt 3 months Follow Up Appt 3 months [facility] Work Phone: Start: 06-10-2015 End: 06-10-2015 Follow Up Appt 6 weeks Follow Up Appt 6 weeks [facility] Work Phone: Start: 06-10-2015 End: 06-23-2015 Follow Up BP Check Follow Up BP Check [facility] Work Phone: Start: 06-10-2015 End: 06-10-2015 MMM MMM [facility] Work Phone: Start: 06-10-2015 End: 07-15-2015 PFM PFM [facility] Work Phone: Start: 06-10-2015 End: 07-15-2015 Follow Up Appt 3 months Follow Up Appt 3 months [facility] Work Phone: Start: 06-10-2015 End: 06-10-2015 Follow Up Appt 6 weeks Follow Up Appt 6 weeks [facility] Work Phone: Start: 06-10-2015 End: 06-23-2015 Follow Up BP Check Follow Up BP Check [facility] Work Phone: Start: 06-10-2015 End: 06-10-2015 MMM MMM [facility] Work Phone: Start: 06-10-2015 End: 07-15-2015 PFM PFM [facility] Work Phone: Start: 05-27-2015 End: 05-28-2015 Nuclear stress test -Lexiscan Nuclear stress test -Lexiscan [facility] Work Phone: Start: 05-27-2015 End: 05-28-2015 Nuclear stress test -Lexiscan Nuclear stress test -Lexiscan [facility] Work Phone: Start: 2013 Hepatitis B Vaccine (1 of 3 - Risk 3-dose series) Hepatitis B Vaccine (1 of 3 - Risk 3-dose series) [facility] Start: 2013 RSV Vaccine (1 - 1-dose 60+ series) RSV Vaccine (1 - 1-dose 60+ series) [facility] Start: 2003 SHINGRIX VACCINE (1 of 2) SHINGRIX VACCINE (1 of 2) [facility] Start: 1998 COLOGUARD (FIT-DNA) COLOGUARD (FIT-DNA) [facility] Start: 1998 Colonoscopy COLONOSCOPY [facility] Start: 1998 COLORECTAL CANCER SCREENING COLORECTAL CANCER SCREENING [facility] Start: [address] COLONOGRAPHY [facility] Start: 1998 FECAL OCCULT BLOOD FECAL OCCULT BLOOD [facility] Start: 1998 Screening for malignant neoplasm of colon [facility] Start: 1998 SIGMOIDOSCOPY SIGMOIDOSCOPY [facility] Start: 1993 Mammography [facility] Start: 1993 Screening for malignant neoplasm of breast Mammogram Screening [facility] Start: 1972 Urine microalbumin profile [facility] Start: 1971 ANNUAL PCP TEAM CHRONIC DISEASE VISIT ANNUAL PCP TEAM CHRONIC DISEASE VISIT [facility] Start: 1971 BP CONTROLLED (<130/80) BP CONTROLLED (<130/80) [facility] Start: 1971 Hepatitis B surface antibody level LDL CHOLESTEROL [facility] Start: 1971 HEPATITIS C SCREENING HEPATITIS C SCREENING [facility] Start: 1971 Hepatitis C screening Hepatitis C Screening [facility] Start: 1965 Adult depression screening assessment DEPRESSION SCREENING [facility] Start: 1963 Hepatitis B screening URINE ALBUMIN:CREATININE RATIO [facility] Hemoglobin A1c/Hemoglobin.total in Blood [facility] Hemoglobin A1c/Hemoglobin.total in Blood [facility] NM Heart Views W str ess and W radionuclide IV [facility] Patient Education [facility] Work Phone: Patient referral [facility] Work Phone: End: 12-26-2024 US Abdomen RUQ US ABD RIGHT UPPER QUADRANT Radiology Routine 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 Occurrences starting 11/27/2023 until 12/26/2024 [facility] Work Phone: Comment on above: 1 Occurrences starting 11/27/2023 until 12/26/2024 [facility] Immunizations Immunization Date Immunization Notes Care Provider Fa [facility] 06-07-2021 influenza virus vaccine, unspecified formulation Us 1 Work Phone: [facility] 05-09-2019 influenza, injectable,quadrivalent , preservative free, pediatric [facility] 05-27-2015 influenza, injectabl e, quadrivalent, preservative free [facility] Work Phone: [facility] 05-27-2015 influenza, seasonal, injectable [facility] Payers Date Payer Category Payer Medicare [id number] 2023 Self-pay [id number] 2022 Medicare AETNA MEDICARE A ETNA MEDICARE PPO [id number] 2022-Present [phone] [address] [place] [address] PPO [id number] 2022 Private Health Insurance [id number] 2018 Medicare MEDICARE MEDICAR E A AND B [id number] 2018-Present [phone] [address] [address] [place] [address] Medicare [id number] 2018 Unknown HOSPITAL/MEDICAL GENERIC MEDICAL GENERIC [id number] 2018-Present [phone] [address] [place] [address] Indemnity [id number]. [id number] 2015 Unknown [id number] 1955 Unknown [id number] 2.16.840.1.828841.3.579.2. 278 1955 Unknown [id number] 2.16.840.1.012344.3.579.2. 278 1955 Unknown [id number] 2.16.840.1.398564.3.579.2. 278 1955 Unknown [id number] 2.16.840.1.687108.3.579.2. 278 1953 Unknown [id number] 2.16.840.1.634611.3.579.2. 278 1955 Unknown [id number] 2.16.840.1.111821.3.579.2. 278 1955 Unknown [id number] 2..840.1.191565.3.579.2. 278 Medicare [id number] Medicare MEDICARE PART A B [id number] Unknown [id number] Unknown [id number] 2.16.840.1.073091.3.579.2. 462 Unknown [id number] 2.16.840.1.976522.3.579.2. 462 Unknown [id number] 2.16.840.1.806051.3.579.2. 462 Unknown [id number] 2.16.840.1.747946.3.579.2. 462 Unknown [id number] 2.16.840.1.625831.3.579.2. 462 Unknown [id number] 2.16.840.1.242998.3.579.2. 462 Unknown [id number] 2.16.840.1.313711.3.579.2. 462 Unknown [id number] 2.16.840.1.995013.3.579.2. 462 Unknown [id number] 2.16.840.1.287911.3.579.2. 462 Unknown [id number] 2.16.840.1.274270.3.579.2. 462 Unknown [id number] 2.16.840.1.690750.3.579.2. 462 Unknown [id number] 2.16.840.1.231970.3.579.2. 462 Unknown [id number] 2.16.840.1.430310.3.579.2. 462 Unknown [id number] 2.16.840.1.747776.3.579.2. 462 Unknown [id number] 2.16.840.1.231046.3.579.2. 462 Unknown [id number] 2.16.840.1.452025.3.579.2. 462 Unknown [id number] 2.16.840.1.177139.3.579.2. 462 Unknown [id number] 2.16840.1.024012.3.579.2. 462 Unknown [id number] 2.16840.1.130549.3.579.2. 462 Unknown [id number] 2.16.840.1.958094.3.579.2. 462 Unknown [id number] 2.16.840.1.746322.3.579.2. 462 Unknown [id number] 2.16840.1.626478.3.579.2. 462 Unknown [id number] 2.16840.1.623427.3.579.2. 462 Unknown [id number] 2.16840.1.438206.3.579.2. 462 Unknown [id number] 2.16840.1.848535.3.579.2. 462 Unknown [id number] 2.16840.1.336820.3.579.2. 462 Social History Date Type Detail Facility Start: 02-22-2023 End: 11-30-2024 Tobacco smoking status VAIS Ex-smoker [facility] Work Phone: End: 12-26-2006 History of tobacco use Current smoker [facility] Start: 10-06-2021 End: 11-27-2023 Alcohol intake Current drinker of alcohol (finding) [facility] Start: 06-29-2021 History SDOH Alcohol Comment seldom [facility] Start: 1955 Sex Assigned At Not on file [facility] Start: 09-26-2021 End: 10-06-2021 Exposure to SARS-CoV-2 (event) Not sure [facility] Work Phone: Start: 06-01-2022 End: 09-13-2023 Tobacco smoking status NHIS Unknown if ever smoked [facility] Start: 04-30-2020 None [facility] Start: 07-06-2020 Spouse/ Signif icant Other [facility] Start: 10-27-2019 Cigarettes [facility] Start: 1955 Sex Assigned At Female W [facility] End: 12-26-2006 History of tobacco use Cigarette Smoker [facility] Start: 01-03-2023 End: 02-22-2023 Cigarettes smoked current (pack per day) - Reported 2 [facility] Start: 02-22-2023 Tobacco use and exposure Smokeless tobacco non-user [facility] Start: 01-03-2023 End: 02-22-2023 Tobacco use panel [facility] Retired 07/10/2019 P HQ Score 0 [facility] Medical Equipment Procedure Code Equipment Code Equipment Origin al Text Equipment Identifier Dates [employer]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 Start: 03-16-2016 [employer]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 Start: 03-16-2016 [employer]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 Start: 03-16-2016 [employer]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 Start: 03-16-2016 [employer]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 Start: 03-16-2016 [employer]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 Start: 03-16-2016 [employer]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 Start: 03-16-2016 [employer]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 Start: 03-16-2016 [employer]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 Start: 03-16-2016 [employer]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 Start: 03-16-2016 [employer]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 Start: 03-16-2016 [employer]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 Start: 03-16-2016 [employer]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 Start: 03-16-2016 [employer]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 Start: 03-16-2016 [employer]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 Start: 03-16-2016 [employer]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 Start: 03-16-2016 [employer]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 Start: 03-16-2016 [employer]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 Start: 03-16-2016 [employer]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 Start: 03-16-2016 [employer]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 Start: 03-16-2016 [employer]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 Start: 03-16-2016 [employer]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 Start: 03-16-2016 [employer]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 Start: 03-16-2016 [employer]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 Start: 03-16-2016 [employer]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 Start: 03-16-2016 [employer]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 Start: 03-16-2016 [employer]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 Start: 03-16-2016 [employer]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 Start: 03-16-2016 [employer]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 Start: 03-16-2016 [employer]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 Start: 03-16-2016 [employer]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 Start: 03-16-2016 [employer]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 Start: 03-16-2016 [employer]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 Start: 03-16-2016 [employer]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 Start: 03-16-2016 [employer]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 Start: 03-16-2016 [employer]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 Start: 03-16-2016 [employer]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 Start: 03-16-2016 [employer]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 Start: 03-16-2016 [employer]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 Start: 03-16-2016 [employer]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 Start: 03-16-2016 Mental Status Date Assessment Result Facility 09-13-2023 Cognitive function Voice/Name [facility] Work Phone: 06-01-2022 Cognitive function Level Of Cons ciousness Awake;Alert;Appropriate;Follow s Commands [facility] Work Phone: Clinical Notes 10-06-2021 to 11-30-2024 Note Date & Type Note Facility 11-30-2024 Discharge summary [facility] 11-30-2024 Discharge summary Note Date/Time November 30, 2024 3:03pm [facility] Medical Records Department [address] [place] [address] Emergency Department Summary 11/30/24 MR#: [id number] Acct: [id number] Name: THIAGO PIERRE Rep #:[id number] : 1955 69 From: Juventino Kern MD PCP: ARIA Long, INSERT OPERATOR-C Statu s:REG ER Location: ED HPI History of Present Illness Chief Complaint: Shortness of Breath Detail of Chief Complaint: Dyspnea, MCKEON, orthopnea and edema Informant: patient Onset/Context/Timing Onset: Days (3 days prior to presentation) Context: sudden Timing: Continuous Quality: Positive for Dyspnea on exertion and Orthopnea (3 pillow); Negative forPND or Wheezing Current Severity: Mild Maximum Severity: Severe Worsened by: Exertion and Lying flat Relieved by: Nothing Associated Symptoms cough; Negative for rhinorrhea, post nasal drip, ear pain, fever, sore throat, subjective, chills, sweats, clear sputum, white sputum, yellow sputum or green sputum Chest Pain: Positive for None Narrative Narrative: Patient is a 69-year-old woman with history coronary disease status post myocardial infarction February of last year, type 2 diabetes, hypertension, hypercholesterolemia, former smoker, chronic kidney disease stage III and chronic systolic congestive heart failure who presents with dyspnea that started3 days ago. She reports increased dyspnea with activity. She has difficulty going up or down steps. She now has 3 pillow orthopnea. She states she doubledher dose of Lasix with no improvement. She denies chest pressure, tightness or heaviness. She denies chest discomfort with activity. She denies fever, chills night sweats. She denies upper respiratory tract infectious symptoms. She denies GI symptoms. She denies symptoms. Review of prior records indicates she has history of obstructive sleep apnea as well. There is also history of dilated cardiomyopathy. 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 Assessment was atherosclerotic heart disease of [place] coronary vessels without anginal practice, chronic. Patient also has a dilated cardiomyopathy, chronic systolic congestive heart failure, cardiac defibrillator in situ and pure hypercholesterolemia. Patient had cardiac catheterization February 18, 2024. She had nonobstructive coronary artery disease but with diffuse mild to moderatedisease noted in the left anterior descending artery and Takotsubo cardiomyopathy. PE Risk Factors: Positive for - (Has had prior symptoms with exacerbation of CHF.); Negative for Cancer, OCP + Smoking + > 35, Prior DVT or PE, Recent immobilization, Recent surgery or Recent travel Prior similar symptoms: Yes Recent Illness/Hospitalization: No PFSH PFSH Medical History Essential hypertension Elevated troponin History of diabetes mellitus Hx of cardiomyopathy Dysarthria Medication reaction Intractable nausea and vomiting Dizziness Depression Near syncope Vertigo Carotid artery disease Pure hypercholesterolemia Atherosclerotic heart disease of [place] coronary artery without angina pectoris Nonrheumatic mitral (valve) insufficiency Dilated cardiomyopathy Chronic systolic (congestive) heart failure BALWINDER (acute kidney injury) Abnormal electrocardiogram Systolic CHF, acute Hypertension Hyperlipidemia Diabetes mellitus, type II NICOLLE (obstructive sleep apnea) Home Medications ?Medication ?Instructions ?Recorded ?Last Taken ?Type aspirin 81 mg tablet,delayed 81 mg PO DAILY@0800 HEALT H 01/26/17 11/29/24 History release MAINTENANCE magnesium chloride 71.5 mg 71.5 mg PO DAILY suppliment 07/23/20 11/30/24 History (magnesium chloride) tablet,delayed release (Slow-Mag) meclizine 25 mg tablet 25 mg PO TID PRN dizziness 0 07/23/20 11/30/24 History Handicap Parking Placard #1 ea 05/09/22 Unknown Rx cyclobenzaprine 10 mg tablet 10 mg PO TID PRN Muscle S pasm 04/16/24 11/30/24 History gabapentin 300 mg capsule 300 mg PO DAILY NERVE PAIN 0 10/23/24 11/30/24 History Humalog KwikPen Insulin 100 15 unit (0.15 mL) subcut T ID #54 mL 10/31/24 11/30/24 Rx unit/mL subcutaneous (insulin lispro) sacubitril 97 mg-valsartan 103 mg 1 tab PO BID HF #180 tabs 11/04/24 11/30/24 Rx tablet (Entresto) furosemide 20 mg tablet 20 mg PO QDAY water pill #90 tabs 11/17/24 11/30/24 Rx tirzepatide 2.5 mg/0.5 mL 2.5 mg (0.5 mL) subcut QWEEK #2 mL 11/27/24 11/26/24 Rx subcutaneous pen injector (Mounjaro) amlodipine 10 mg tablet 10 mg PO DAILY 11/30/2411/10 History carvedilol 25 mg tablet 25 mg PO DAILY 11/30/2411/10 History cholecalciferol (vitamin D3) 1,250 1,250 mcg PO QWEEK 11/30/24 11/23/24 History mcg (50,000 unit) capsule dapagliflozin propanediol 10 mg 10 mg PO DAILY 5 11/30/24 History tablet (Farxiga) fluoxetine 40 mg capsule 40 mg PO DAILY 11/30/2411/10 History gabapentin 300 mg capsule 600 mg PO QHS 11/30/2411/29 History insulin degludec 100 unit/mL (3 18 unit subcut Q24H di abetes 11/30/24 11/30/24 History mL) subcutaneous pen (Tresiba FlexTouch U-100 insulin) Allergy/AdvReac Type Severity Reaction Status Date / Time red dye Allergy Hives Verified 11/30/24 11:39 Jjndeyi-LRT-HqD Reductase AdvReac Severe Myalgias Verified 11/30/24 11:39 Inhibitor (Rmoidbz-Gau-Dpa Reductase Inhibitor) semaglutide (From Ozempic) AdvReac Vomiting Verified 11/30/24 11:39 Family History Father , Lung cancer Lung cancer Mother , Breast cancer Breast cancer Brother Cancer lymphoma Surgical History History of eye surgery History of left heart catheterization (LHC) (~05/26/15) Status post foot surgery Status post breast reduction S/P hysterectomy History of bilateral breast reduction surgery History of bilateral foot surgery History of hysterectomy Cardiac defibrillator in situ Social History household members: spouse Smoking Status: Former smoker quit date: 06/11/06 alcohol intake: never substance use type: does not use caffeine: No what type of physical activity do you participate in: none seatbelt use: always do you feel safe at home: Yes ROS ROS ED Constitutional Constitutional ED: Denies chills, fever(s), sweats or weight loss Eyes Eyes: Denies blurry vision or change in vision ENT ENT ED: Denies ear pain, rhinorrhea or sore throat Cardiovascular Cardiovascular: Reports orthopnea; Denies chest pain, palpitations, paroxysmal nocturnal dyspnea or racing heartbeat Respiratory/Chest Respiratory/Chest: Reports cough, dyspnea, dyspnea on exertion and orthopnea; Denies paroxysmal nocturnal dyspnea or sputum Gastrointestinal Gastrointestinal: Denies abdominal pain, nausea or vomiting Genitourinary Genitourinary ED: Denies dysuria, hematuria or urinary frequency Musculoskeletal Musculoskeletal: Denies arthralgias or myalgias Integumentary Denies rash Neurologic Neurologic: Reports weakness Hematologic/Lymphatic Hematologic/Lymphatic: Denies easy bleeding or easy bruising EXAM Physical Exam Const Vital Signs: 11/30/24 11:39 11/30/24 12:22 11/30/24 12:38 Temperature 98.5 F Temperature Source Oral Pulse Rate 60 60 Respiratory Rate 18 18 Respiratory Effort Normal Non-Labored Respiratory Depth Normal Respiratory Pattern Normal Blood Pressure 126/57 H 106/57 L Blood Pressure Mean 80 73 Pulse Ox 98 97 Oxygen Delivery Method Room Air Room Air Room Air 11/30/24 13:51 11/30/24 14:20 Temperature Temperature Source Pulse Rate 65 60 Respiratory Rate 18 18 Respiratory Effort Respiratory Depth Respiratory Pattern Blood Pressure 112/78 134/78 H Blood Pressure Mean 89 96 Pulse Ox 98 98 Oxygen Delivery Method Room Air Room Air Positive well nourished and well developed Constitutional Narrative: BMI is 44.8. General Appearance ED: well developed; Negative for pallor HEENT Reports moist mucous membranes HEENT Narrative: Head is atraumatic and normocephalic. Ears normal. Nares patent. Eyes PERRL and EOMs intact bilaterally General Eye ED: Negative for pale conjunctiva or scleral icterus Neck no lymphadenopathy, supple, no meningeal signs and no JVD Neck Narrative: Difficult assess for JVD based on body habitus. Resp normal respiratory effort and clear to auscultation bilaterally Cardio regular rate, regular rhythm, S1 normal heart sound, S2 normal heart sound and no murmurs GI non-tender, non-distended and no masses Auscultation: normoactive bowel sounds Palpation: soft Extremity normal to inspection Extremity Narrative: Pitting edema approximately 2 mm bilaterally. The edema does not past the knees. General Extremety ED: Yes edema General Extremity: edema Neuro oriented x3, CN's II-XII intact bilaterally and no sensory deficits noted [place] Coma Scale: document GCS findings Spontaneous Obeys Commands Oriented 15 Sensorium / Orientation: alert Psych mental status grossly normal Skin no wounds and skin turgor normal General Skin Exam: Negative for jaundice or pallor Lesions: no lesions Rashes: no rashes MDM MDM MDM Narrative Medical decision making narrative: Concern patient has exacerbation of CHF. Need to determine if this is due to her dilated cardiomyopathy with reduced EF versus cardiac ischemia versus other cause. Workup included EKG, chest x-ray appropriate blood work which included CBC to assess H&H, electrolyte panel to assess electrolytes and renal function as well as glucose and she is diabetic and BNP and troponin. Prior office visits and hospital visits were reviewed and documented in the HPI. History & Record Review Additional record(s) reviewed:: Prior inpatient record, Prior outpatient record,Prior ED visit and Prior labs Lab Data Attestation: I reviewed the patient's lab results. Lab results narrative: CBC is normal. Electrolyte panel was an elevated BUN and creatinine of 28 and 1.33. Most recent creatinine was 1.09 on 10/22/2024. First troponin normal. BNP normal. Labs: Laboratory Results - last 24 hr 11/30/24 11/30/24 12:15 14:15 WBC 6.4 RBC 4.61 Hgb 13.4 Hct 40.0 MCV 86.8 MCH 29.1 MCHC 33.5 RDW Std Deviation 40.4 RDW Coeff of Ivet 12.9 Plt Count 280 MPV 9.2 Immature Gran % (Auto) 0.300 Neut % (Auto) 56.9 Lymph % (Auto) 34.7 [place] % (Auto) 5.3 Eos % (Auto) 2.2 Baso % (Auto) 0.6 Absolute Neuts (auto) 3.6 Absolute Lymphs (auto) 2.21 Nucleated RBC % 0 Sodium 134 Potassium 4.3 Chloride 97 L Carbon Dioxide 23.7 Anion Gap 13 BUN 28 H Creatinine 1.33 H Estim Creat Clear Calc 49.10 L Est GFR (MDRD) Non-Af 43 L BUN/Creatinine Ratio 21.4 H Glucose 262 H Calcium 9.0 Troponin T High Sens 14 Troponin T Hi Sens 2 Hr 15 H NT pro BNP II 172 Second troponin is 15 which is above normal with a delta of 1. Patient's symptoms not consistent with cardiac ischemia. She does have history of sleep apnea. She has not been using her BiPAP machine. She has been sitting a lot. Suspect her lower extremity edema is due to dependent edema. Patient has not made much urine since receiving Lasix. Cejpnq-zl-vnfw patient is if anything isslightly on the dry side with an elevated and her BUN and creatinine compared tobaseline. Patient was informed follow-up with Dr. Marcum. Recommended getting up to walk more. She states she has disc problem at L5-S1. Patient was told she needs to walk. She also needs to elevate her legs and she was informed what this meant and recommended compressive hose. Radiography Diagnostic Testing: Clinical Impression(s) from Imaging Studies Chest X-Ray 11/30/24 11:52 IMPRESSION: NO ACUTE FINDINGS. Reading Location: [facility] EKG Initial EKG: Attestation: I personally reviewed and interpreted this EKG as follows: Interpretation: Paced (80 dual pacemaker rate is 60. QRS duration 164 ms. QT duration 486 ms.) Treatment and Re-Evaluation :: When patient was reassessed at 1451 she was resting comfortably. She appeared in no distress. Discharge Plan Triage Chief Complaint: Shortness of Breath ED Provider: Juventino Kern Dx/Rx/DC Orders Clinical Impression: Exertional dyspnea, NICOLLE (obstructive sleep apnea), Chronic systolic (congestive) heart failure, Diabetes mellitus, type II, Essential hypertension, Orthopnea, Lymphedema, Adult BMI 40.0-44.9 kg/sq m Instructions: ED Dyspnea, ED Peripheral Edema, Bilateral Prescriptions: No Action meclizine 25 mg tablet 25 mg PO TID PRN (Reason: dizziness) Slow-Mag 71.5 mg tablet,delayed release (DR/EC) 71.5 mg PO DAILY cyclobenzaprine 10 mg tablet 10 mg PO TID PRN (Reason: Muscle Spasm) Entresto 97-103 mg tablet 1 tab PO BID Qty: 180 3RF gabapentin 300 mg capsule 300 mg PO DAILY Patient Comments: nerve pain Rx Instructions: AM aspirin 81 MG tablet 81 mg PO DAILY@0800 Patient Comments: [facility] amlodipine 10 mg tablet 10 mg PO DAILY cholecalciferol (vitamin D3) 1,250 mcg (50,000 unit) capsule 1,250 mcg PO QWEEK dapagliflozin propanediol [Farxiga] 10 mg tablet 10 mg PO DAILY fluoxetine 40 mg capsule 40 mg PO DAILY gabapentin 300 mg capsule 600 mg PO QHS carvedilol 25 mg tablet 25 mg PO DAILY Rx Instructions: must administer with a meal/food insulin degludec [Tresiba FlexTouch U-100] 100 unit/mL (3 mL) insulin pen 18 unit subcut Q24H (DME) Handicap Parking Placard See Rx Instructions .Route .MEDSUPPLY Qty: 1 0RF Rx Instructions: As directed insulin lispro [Humalog KwikPen Insulin] 100 unit/mL insulin pen 15 unit subcut TID Qty: 54 2RF furosemide 20 mg tablet 20 mg PO QDAY Qty: 90 3RF Mounjaro 2.5 mg/0.5 mL pen injector 2.5 mg subcut QWEEK Qty: 2 3RF Primary Care Provider: Sarah Toth Referrals: Sarah Toth, INSERT OPERATOR-C [Primary Care Provider] - 3-5 Days Activity Restrictions/Additional Instructions: 1. You need to walk more 2. When you are sitting you need to elevate your toes above your nose 3. Recommend contacting Dr. Marcum's office for follow-up 4. Recommend purchasing compressive hose at the pharmacy. Print Language: Iraqi Disposition Disposition: Home, Self Care What to do if you have Problems For any increased pain, shortness of breath, bleeding, nausea or vomiting, chestpain, or any unexpected problems, contact your Primary Care Provider. Call [facility] ([phone]) or report to the closest Emergency Room. Call 911 if necessary. 11/30/24 1503 <Electronically signed by Juventino Kern MD> Cosigner Signature (if applicable): CC: ARIA INSERT OPERATOR-C Sarah Toth ~ Signed [facility] Work Phone: 1(236) 624-535006-22-2025 Radiology Diagnostic study note [facility] Imaging Services [address] [place] [address] Chest PA and Lateral MR#: [id number] Acct: [id number] Name: THIAGO PIERRE Rep #: [id number] : [id number] F 69 From: Dahlia Mcpherson MD PCP: ARIA Long, INSERT OPERATOR-C Status: REG ER Study:Chest PA and Lateral Date of Exam: 11/30/24 Exam# [id number] Ordering Dr: Annetta Kern MD PROCEDURE: CHEST PA AND LATERAL 11/30/2024 REASON FOR EXAM: DYSPNEA, MCKEON, ORTHOPNEA, EDEMA, HISTORY OF CHF TECHNIQUE: CHEST PA AND LATERAL COMPARISON: Chest radiograph 02/17/2024. FINDINGS: Hardware: Stable left cardiac pacemaker. Heart: The heart size is normal. Mediastinum: There are atherosclerotic calcifications of the thoracic aorta. Lungs: No focal consolidation, pleural effusion or pneumothorax. Bones: Degenerative changes are identified within the thoracic spine. RAD/Chest PA and Lateral IMPRESSION: NO ACUTE FINDINGS. Reading Location: [facility] CC: ARIA INSERT OPERATOR-C Sarah Toth; Dr. Juventino Kern MD ~ Automotive Technology Instructor: Signed [facility]05-15-2025 Evaluation note* Diagnosis Onset Date Resolution Status Admit Date CKD (chronic kidney disease) stage 3, GFR 30-59 ml/min chronic October 232024 1:29pm Diabetes mellitus, type II chronic October 23, 2024 1:29pm Essential hypertension chronic Ma 2024 1:29pm Hyperlipidemia chronic October 23, 2024 1:29pm Microalbuminuria due to type 2 diabetes mellitus chronic October 23, 2024 1:29pm Obesity chronic October 23, 2024 1:29pm [facility] Work Phone: 1(166) 104-601201-22-2025 Evaluation note* Diagnosis Onset Date Resolution Status Admit Date Atherosclerotic heart diseas e of alturas coronary artery without angina pectoris chronic July 02 12:52pm Chronic systolic (congestive ) heart failure chronic July 02 12:52pm Dilated cardiomyopathy chronic [facility] 2024 12:52pm Essential hypertension chronic [facility] 2024 12:52pm Pure hypercholesterolemia chronic July 02, 2024 12:52pm Cardiac defibrillator in situ inacti ve July 02, 2024 12:52pm CKD (chronic kidney disease) stage 3, GFR 30-59 ml/min chronic 2024 2:29pm Diabetes mellitus, type II chronic July 16, 2024 2:29pm Essential hypertension chronic 2024 2:29pm Hyperlipidemia chronic July 162024 2:29pm Microalbuminuria chronic July 16, 2024 2:29pm Obesity (BMI 30-39.9) chronic Jul 2:29pm [facility] Work Phone: 1(594) 681-133501-22-2025 Evaluation note* Diagnosis Onset Date Resolution Status Admit Date Atherosclerotic heart diseas e of alt[place] coronary artery without angina pectoris chronic July 02 12:52pm Chronic systolic (congestive ) heart failure chronic July 02 12:52pm Dilated cardiomyopathy chronic [facility] 2024 12:52pm Essential hypertension chronic [facility] 2024 12:52pm Pure hypercholesterolemia chronic July 02, 2024 12:52pm Cardiac defibrillator in situ inacti ve July 02, 2024 12:52pm CKD (chronic kidney disease) stage 3, GFR 30-59 ml/min chronic ua ry 2024 2:29pm Diabetes mellitus, type II chronic July 16, 2024 2:29pm Essential hypertension chronic Fe bruary 2024 2:29pm Hyperlipidemia chronic July 162024 2:29pm Microalbuminuria deleted July 16, 2024 2:29pm Obesity (BMI 30-39.9) deleted Jul ruary 2024 2:29pm CKD (chronic kidney disease) stage 3, GFR 30-59 ml/min chronic October 232024 1:29pm Diabetes mellitus, type II chronic October 23, 2024 1:29pm Essential hypertension chronic Ma y 2024 1:29pm Hyperlipidemia chronic October 23, 2024 1:29pm Microalbuminuria due to type 2 diabetes mellitus chronic October 23, 2024 1:29pm Obesity chronic October 23, 2024 1:29pm [facility] Work Phone: 1(376) 352-428809-09-2024 [facility]06-18-2024 NoteDate of Procedure 11/27/2023. Auto Specialty Services Manager Information Green End Man: Rebecca Rey Start time: 2:00 PM. Stop time: 2:[address], stable regressed [id number] NoteDate of Procedure 11/27/2023. Auto Specialty Services Manager Information Aga De La Torre, Truck Sales Manager 11/27/2023 2:22 PM . Notes Eye: Left [...] of treated choroidal melanoma with decreased subretinal opacities.[id number] NoteHNO ID: [id number] Author: HONORIO QUINTANA MD Service: ? Author Type: Physician Type: Progress Notes Filed: 11/27/2023 15:39 Note Text: LTFU 01/2018 - 02/2023. Had previously planned on TTT#2. Returning after seeing Dr. Roderick, concern for exudative retinal detachment left eye. Decreased vision in the left eye over the last few months. Referred by Dr Olivares ([place]) for OS melanoma evaluation Pt w hx [...] Located superior/superotemporal to disc 12-2 oclock position [place]+ SRF+ Drusen+ RPE changes+ Severe NPDR / [...] Honorio Quintana MD November 27, 2023 3:38 [facility]06-18-2024 History of Present illness Narrative* Honorio Quintana MD - 11/27/2023 2:41 PM EDT LTFU 01/2018 - 02/2023. Had previously planned on TTT#2. Returning after seeing Dr. Flanagan, concern for exudative retinal detachment left eye. Decreased vision in the left eye over the last few months. Referred by Dr Olivares ([place]) for OS melanoma evaluation Pt w hx [...] Located superior/superotemporal to disc 12-2 oclock position [place]+ SRF+ Drusen+ RPE changes+ Severe NPDR / [...] 27, 2023 3:38 PM documented in this encounterProm[facility]12-[facility]-2023 NoteHNO ID: [id number] Author: Honorio Quintana MD Service: ? Author Type: Physician Type: Progress Notes Filed: 05/28/2023 9:05 PM Note Text: LTFU 01/2018 - 02/2023. Had previously planned on TTT#2. Returning after seeing Dr. Flanagan, concern for exudative retinal detachment left eye. Decreased vision in the left eye over the last few months. Referred by Dr Olivares ([place]) for OS melanoma evaluation Pt w hx [...] Located superior/superotemporal to disc 12-2 oclock position [place]by+ SRF+ Drusen+ RPE changes+ Severe NPDR / [...] Honorio Quintana MD May 28, 2023 9:04 [facility]09-25-2023 History of Present illness Narrative* Sarah Dao [...] 05, 2023 11:10 AM documented in this encounterPromed[facility]09-25-2023 NoteHNO ID: [id number] Author: Sarah Dao RDMS Service: ? Author Type: Mitten Stitcher Type: Progress Notes Filed: 03/05/2023 11:11 AM [...] Dao RDMS RVT March 05, 2023 11:10 [facility]09-14-2023 NoteHNO ID: [id number] Author: Honorio Quintana MD Service: ? Author Type: Physician Type: Progress Notes Filed: 02/23/2023 11:07 AM Note Text: LTFU 01/2018 - 02/2023. Had previously planned on TTT#2. Returning after seeing Dr. Flanagan, concern for exudative retinal detachment left eye. Decreased vision in the left eye over the last few months. Referred by Dr Olivares ([place]) for OS melanoma evaluation Pt w hx [...] Located superior/superotemporal to disc 12-2 oclock position [place]+ SRF+ Drusen+ RPE changes+ Severe NPDR / [...] of its relevant components. Honorio Quintana MD February 23, 2023 11:07 [facility]07-26-2023 NoteHNO ID: [id number] Author: Denny Flanagan MD Service: ? Author [...] Denny Flanagan MD January 03, 2023 10:05 [facility]04-28-2022 History of Present illness Narrative* Shaka Alonso - 10/06/2021 12:58 PM EDT Last saw [...] Objective: Patient presents to clinic ambulating in [place] Vasc: DP and PT pulses are palpable [...] months. Shaka Alonso DPM documented in this encounterPromedica [facility]04-28-2022 Instructions* Patient Instructions* Shaka Alonso - 10/06/2021 [...] (or decreased sensation in your feet) a textile finisher should always cut your toenails. Be Careful [...] Go to your health care provider or textile finisher to treat these conditions. [facility]* Diagnosis Onychomycosis- Primary Dermatophytosis of nail Pain in toe of left foot Pain in limb Pain in toe of right foot Pain in limb Other diabetic neurological complication associated with type 2 diabetes mellitus (HCC) Hyperkeratosis Acquired keratoderma documented in [facility] encounter [facility] noteNo assessment information availableWFort Hamilton Hospital Work Phone: Evaluation note* Diagnosis Onset Date [...] syncope acute Atherosclerotic heart diseas e of alt[place] coronary artery without angina pectoris chronic Cardiac defibrillator in situ chronic Chronic systolic (congestive) heart failure chronic Dilated cardiomyopathy chron ic Essential hypertension chron ic Pure hypercholesterolemia ch ronic Cardiac defibrillator in situ chronic Chronic systolic (congestive) heart failure chronic Dilated cardiomyopathy [facility] Work Phone: Evaluation note* Diagnosis 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) documented in this encounter [facility] note* Diagnosis Onset Date Resolution Status CKD (chronic kidney disease) stage 3, GFR 30-59 ml/min chronic Diabetes mellitus, type II c hronic Essential hypertension chron ic Obesity (BMI 30-39.9) chroni c Atherosclerotic heart diseas e of alturas coronary artery without angina pectoris chronic Cardiac defibrillator in situ chronic Chronic systolic (congestive) heart failure chronic Dilated cardiomyopathy chron ic Essential hypertension chron ic Pure hypercholesterolemia ch ronic Depression chronic Diabetes mellitus, type II c hronic Obesity (BMI 30-39.9) [facility] Work Phone: Evaluation note* Diagnosis Onset Date Resolution Status Atherosclerotic heart diseas e of alt[place] coronary artery without angina pectoris chronic Cardiac defibrillator in situ chronic Chronic systolic (congestive) heart failure chronic Dilated cardiomyopathy chron ic Essential hypertension chron ic Pure hypercholesterolemia ch ronic Depression chronic Diabetes mellitus, type II c hronic Obesity (BMI 30-39.9) chroni c [facility] Work Phone: Evaluation note* Diagnosis 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 You need to walk more 2. When you are sitting you need to elevate your toes above your nose 3. Recommend contacting Dr. Marcum's office for follow-up 4. 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) Procedures US ABD RIGHT UPPER QUADRANT US ABDOMINAL REAL TIME W/IMAGE LIMITED Honorio Quintana MD [address] [place] [address] Us Imaging [facility] Referral ID Status Reason Start Date Expiration Date V isits Requested Visits Authorized [id number] Closed Auto-Generate d Referral 02/22/2023 03/23/2024 1 1 [facility] for referral (narrative)* Diagnostic Procedure Only (Routine) - Pending Review Specialty Diagnoses / Procedures Referred By Letitia leos Referred To Contact US IMAGING Diagnoses 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) Procedures US ABD RIGHT UPPER QUADRANT US ABDOMINAL REAL TIME W/IMAGE LIMITED Honorio Quintana MD [address] [place] [address] [place] [address] Referral ID Status Reason Start Date Expiration Date Visits Requested Visits Authorized [id number] Pending Review Auto-Generat ed Referral 11/27/2023 12/26/2024 1 1 [facility] for referral (narrative)No reason for referral information availableMethodist [facility]als [facility] Work Phone: Summary Purpose Family History Relationship Condition Age at Onset Recorded Date/T alberto father Malignant neoplasm of lung Unknown mother Malignant neoplasm of breast Unknown brother Malignant neoplasm Unknown Advance Directives Documents on File Type Date Recorded Patient Contact Officer Expl anation Advance Directive(s) 03/04/2018 3:54 PM Advance Directive(s) 11/09/2017 6:59 AM Advance Directive(s) 10/24/2017 12:13 PM Advance Directive Response Recorded Date/ Time Advance Directives No July 20, 2017 3:03pm Living Will No June 01 8:57am Power of Managing Supervisor No June 01, 2022 8:57am Advance Directive Response Recorded Date/ Time Advance Directives No July 20, 2017 4:03pm Living Will No June 01 9:57am Power of Managing Supervisor No June 01, 2022 9:57am Advance Directive Response Recorded Date/ Time Advance Directives No December 28 9:43am Living Will No December 28, 2022 9:43am Power of Managing Supervisor No December 28 9:43am Advance Directive Response Recorded Date/ Time Advance Directives No December 28 8:43am Living Will No December 28, 2022 8:43am Power of Managing Supervisor No December 28 8:43am Advance Directive Response Recorded Date/ Time Name of Medical Power of Managing Supervisor September 13, 2023 3:04pm Advance Directives No December 28 9:43am Living Will No September 13, 2023 3:04pm Power of Managing Supervisor Yes September 12 3:04pm Advance Directive Response Recorded Date/ Time Living Will No February 16 9:22pm Do you have a Healthcare Power of Managing Supervisor? No February 17, 2024 9:22pm Advance Directives No December 28 9:43am Advance Directive Response Recorded Date/ Time Do you have a Healthcare Pow er of Managing Supervisor? 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 Cardiac defibrillator in situ Chronic systolic (congestive) heart failure Dilated cardiomyopathy Essential hypertension Pure hypercholesterolemia Depression Diabetes mellitus, type II Obesity (BMI 30-39.9) Chief Complaint 3 M FU 3 M FU CHEST PAIN Reason for Visit Atherosclerotic hear t disease of alturas coronary artery without angina pectoris Cardiac defibrillator [...] Admit Date Atherosclerotic heart diseas e of alturas coronary artery without angina pectoris July 02, [...] Admit Date Atherosclerotic heart diseas e of alt[place] coronary artery without angina pectoris July 02, [...] 1:29pm Obesity October 23, 2024 1:29p m Chief Complaint Admit Date Pacer Check Remote October 13, 2024 3:32am 3 M FU October 23, 2024 1:29p m SWELLING November 30, 2024 11:3 8am Reason for Visit Admit Date CKD (chronic kidney disease) stage 3, GF R 30-59 ml/min October 23, 2024 1:29pm Diabetes mellitus, type II October 23 1:29pm Essential hypertension October 23, 2024 1: 29pm Hyperlipidemia October 23, 2024 1:29p m Microalbuminuria due to type 2 diabetes mellitus October 23, 2024 1:29pm Obesity October 23, 2024 1:29p m Chief Complaint Admit Date Pacer Check Remote October 13, 2024 3:32am 3 M FU October 23, 2024 1:29p m SWELLING November 30, 2024 11:3 8am 6 M FU December 25, 2024 2:19 pm Additional Source Comments INFORMATION SOURCE (unrecogn ized section and content) DATE CREATED AUTHOR 09/28/2018 [facility] DATE CREATED AUTHOR AUTHOR'S ORGANIZ ATION 02/21/2020 [facility] DATE CREATED AUTHOR AUTHOR'S ORGANIZ ATION 12/02/2023 [facility] DATE CREATED AUTHOR AUTHOR'S ORGANIZ ATION 12/05/2024 [facility] Source Comments (unrecognize d section and content) In the event this informatio n is protected by the Federal Confidentiality of Alcohol and Drug Abuse Patient Records regulations: The Federal rules restrict any use of the information to criminally investigate or prosecute any alcohol or drug abuse patient.[facility] HospitalIn the event this information is protected by the Federal Confidentiality of Alcohol and Drug Abuse Patient Records regulations: The Federal rules restrict any use of the information to criminally investigate or prosecute any alcohol or drug abuse patient.[facility] HospitalIn the event this information is protected by the Federal Confidentiality of Alcohol and Drug Abuse Patient Records regulations: The Federal rules restrict any use of the information to criminally investigate or prosecute any alcohol or drug abuse patient.[facility] Reason for Visit (unrecogniz ed section and content) Reason Comments Nail care Diabetic Foot Care blister on right great toe Reason Comments Radiology US Specialty Diagnoses / Procedures Referred By Contac t Referred To Contact US IMAGING Diagnoses 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) Procedures US ABD RIGHT UPPER QUADRANT US ABDOMINAL REAL TIME W/IMAGE LIMITED Honorio Quintana MD [address] [place] [address] [place] [address] Referral ID Status Reason Start Date Expiration Date V isits Requested Visits Authorized [id number] Closed Auto-Generate d Referral 02/22/2023 03/23/2024 1 1 Reason Comments Malignant Melanoma (Choroid) Follow Up s /p plaque + TTT OS 11/12/2017 Care Teams (unrecognized sec tion and content) Coding Assistant Relationship Specialty Start Date End Date Shante Dudley PCP - General Family Practice 03/27/17 Ovi Olivares MD [address] [place] [address] Referring Ophthalmology 03/22/17 Kristen Harrison (Historical), PLAYGROUND ATTENDANT Referring Orthopedics 08/19/20 Team Status: Active Member Role Status Dates [facility] Family Provider Active [facility] Primary Care Provider A ctive Team Status: Inactive Member Role Status Dates Sarah Toth INSERT OPERATOR, INSERT OPERATOR-C Other Provider Active [facility] Primary C are Provider, Attending Provider, Referring Provider Active Team Status: Inactive Member Role Status Dates Dr. Genie Chambers Primary Care Provider Active Dr. Antonio Herr MD Attending Provider, Emergency Pro vider Active Team Status: Inactive Member Role Status Dates [facility] Primary Care Provider A ctive HEIDI PATEL NP-C Attending Provider, Referring Provider Active Team Status: Active Member Role Status Dates [facility] Primary C are Provider, Attending Provider, Referring Provider Active Sarah Toth INSERT OPERATOR, INSERT OPERATOR-C Other Provider Active Team Status: Inactive Member Role Status Dates [facility] Primary C are Provider, Attending Provider, Referring Provider Active Sarah Toth INSERT OPERATOR, INSERT OPERATOR-C Other Provider Active Team Status: Active Member Role Status Dates [facility] Family Provider Active Sarah Toth INSERT OPERATOR, INSERT OPERATOR-C Primary Care Provider Active Team Status: Inactive Member Role Status Dates [facility] Primary Care Provider, Referring Provider Active Lavonne Bridges , INSERT OPERATOR-C Attending Provider Active Team Status: Inactive Member Role Status Dates [facility] Primary Care Provider, Referring Provider Active Lico Noel INSERT OPERATOR, INSERT OPERATOR-C Attending Provider Active Team Status: Inactive Member Role Status Dates [facility] Primary Care Provider A ctive Dr. Nathanael Corrales MD Attending Provider Active Team Status: Inactive Member Role Status Dates [facility] Referring Provider Leila Field Attending Provider Active Sarah Toth INSERT OPERATOR, INSERT OPERATOR-C Primary Care Provider Active Team Status: Inactive Member Role Status Dates [facility] Primary Care Provider A ctive Dr. Rhea Barber , Attending Provider, Emergency Pro vider Active Team Status: Inactive Member Role Status Dates Sarah Toth INSERT OPERATOR, INSERT OPERATOR-C Primary Care Provider Active Lico Noel INSERT OPERATOR, INSERT OPERATOR-C Attending Provider, Referring P carlos eduardo Active Coding Assistant Relationship Specialty Start Date End Date Shante Dudley [address] [place] [address] PCP - General Family Medicine 03/27/17 Ovi Olivares MD [address] [place] [address] Referring Ophthalmology 03/22/17 Kristen Harrison (Historical), PLAYGROUND ATTENDANT [address] [place] [address] Referring Orthopedics 08/19/20 Team Status: Inactive Member Role Status Dates [facility] Primary Care Provider A ctive Dr. Justyn Lu , DO Emergency Provider Active Coding Assistant Relationship Specialty Start Date End Date Shante Dudley [address] [facility] [place] [address] PCP - General Family Medicine 03/27/17 Ovi Olivares MD [address] [facility] [place] [address] Referring Ophthalmology 03/22/17 Kristen Harrison (Historical), PLAYGROUND ATTENDANT [address] [facility] [place] [address] Referring Orthopedics 08/19/20 Team Status: Active Member Role Status Dates Sarah Toth VSC, INSERT OPERATOR-C Primary Care Provider Activ e Team Status: Inactive Member Role Status Dates Sarah Toth VSC, INSERT OPERATOR-C Primary Care Provider Activ e Start: July 02, 2024 End: July 02, 2024 Sarah KNAPP, INSERT OPERATOR-C Attending Provider Active Start: July 02, 2024 End: July 02, 2024 Sarah Toth VSC, INSERT OPERATOR-C Referring Provider Active Start: July 02, 2024 End: July 02, 2024 Team Status: Inactive Member Role Status Dates Sarah Toth VSC, INSERT OPERATOR-C Primary Care Provider Activ e Start: July 02, 2024 End: July 02, 2024 Sarah KNAPP, INSERT OPERATOR-C Referring Provider Active Start: July 02, 2024 End: July 02, 2024 Kaye Burris PA, PA Attending Provider Active Start: July 02, 2024 End: July 02, 2024 Team Status: Inactive Member Role Status Dates Sarah Toth VSC, INSERT OPERATOR-C Primary Care Provider Activ e Start: July 14, 2024 End: July 14, 2024 Dr. Misbah Marcum MD Attending Provider Active S tart: July 14, 2024 End: July 14, 2024 Dr. Misbah Marcum MD Referring Provider Active S tart: July 14, 2024 End: July 14, 2024 Team Status: Inactive Member Role Status Dates Sarah KIDDC, INSERT OPERATOR-C Primary Care Provider Activ e Start: July 16, 2024 End: July 16, 2024 Sarah Navneet VSC, INSERT OPERATOR-C Referring Provider Active Start: July 16, 2024 End: July 16, 2024 DEO VasquezC Attending Provider Active Start: July 16, 2024 End: July 16, 2024 Team Status: Inactive Member Role Status Dates Sarah KIDDC, INSERT OPERATOR-C Primary Care Provider Activ e Start: October 13, 2024 End: October 13, 2024 Dr. Misbah Marcum MD Attending Provider Active S tart: October 13, 2024 End: October 13, 2024 Team Status: Active Member Role Status Dates Sarah Toth VSC, INSERT OPERATOR-C Primary Care Provider Activ e Start: October 22, 2024 Sarah KIDDC, INSERT OPERATOR-C Attending Provider Active Start: October 22, 2024 Team Status: Inactive Member Role Status Dates Sarah KIDDC, INSERT OPERATOR-C Primary Care Provider Activ e Start: October 23, 2024 End: October 23, 2024 Sarah KIDDC, INSERT OPERATOR-C Referring Provider Active Start: October 23, 2024 End: October 23, 2024 Lavonne Bridges NP-C Attending Provider Active Start: October 23, 2024 End: October 23, 2024 Team Status: Inactive Member Role Status Dates Sarah KIDDC, INSERT OPERATOR-C Primary Care Provider Activ e Start: October 22, 2024 End: October 22, 2024 Sarah KIDDC, INSERT OPERATOR-C Attending Provider Active Start: October 22, 2024 End: October 22, 2024 Team Status: Inactive Member Role Status Dates Sarah KIDDC, INSERT OPERATOR-C Primary Care Provider Activ e Start: October 13, 2024 End: October 13, 2024 Dr. Misbah Marcum MD Attending Provider Active S tart: October 13, 2024 End: October 13, 2024 Dr. Misbah Marcum MD Referring Provider Active S tart: October 13, 2024 End: October 13, 2024 Team Status: Inactive Member Role Status Dates Sraah KIDDC, INSERT OPERATOR-C Primary Care Provider Activ e Start: November 30, 2024 End: November 30, 2024 Dr. Juventino Kern MD Emergency Provider Active Sta rt: November 30, 2024 End: November 30, 2024 Team Status: Active Member Role/Relationship Status Dates Sarah Toth VSC, INSERT OPERATOR-C Primary Care Provider Activ e Team Status: Inactive Member Role/Relationship Status Dates Sarah Toth VSC, INSERT OPERATOR-C Primary Care Provider Activ e Start: October 13, 2024 End: October 13, 2024 Dr. Misbah Marcum MD Attending Provider Active S tart: October 13, 2024 End: October 13, 2024 Dr. Misbah Marcum MD Referring Provider Active S tart: October 13, 2024 End: October 13, 2024 Team Status: Inactive Member Role/Relationship Status Dates Sarah Toth VSC, INSERT OPERATOR-C Primary Care Provider Activ e Start: October 22, 2024 End: October 22, 2024 Sarah KIDDC, INSERT OPERATOR-C Attending Provider Active Start: October 22, 2024 End: October 22, 2024 Team Status: Inactive Member Role/Relationship Status Dates Sarah KIDDC, INSERT OPERATOR-C Primary Care Provider Activ e Start: October 23, 2024 End: October 23, 2024 Sarah KIDDC, INSERT OPERATOR-C Referring Provider Active Start: October 23, 2024 End: October 23, 2024 Lavonne Bridges INSERT OPERATOR-C Attending Provider Active Start: October 23, 2024 End: October 23, 2024 Team Status: Inactive Member Role/Relationship Status Dates Sarah KIDDC, INSERT OPERATOR-C Primary Care Provider Activ e Start: November 30, 2024 End: November 30, 2024 Dr. Juventino Kern MD Attending Provider Active Sta rt: November 30, 2024 End: November 30, 2024 Dr. Juventino Kern MD Emergency Provider Active Sta rt: November 30, 2024 End: November 30, 2024 Team Status: Inactive Member Role/Relationship Status Dates Sarah KIDDC, INSERT OPERATOR-C Primary Care Provider Activ e Start: December 25, 2024 End: December 25, 2024 Sarahmariluz KIDDC, INSERT OPERATOR-C Referring Provider Active Start: December 25, 2024 End: December 25, 2024 Dr. Misbah Marcum MD Attending Provider Active S tart: December 25, 2024 End: December 25, 2024 Goals (unrecognized section and content) Goals [...] PRIMARY CLINICAL RECORDS. [facility] [employer] [facility]. provides no warranty or guarantee of the accuracy or completeness of information in this document.
== END 2024-12-28 16:13 | disposition home or self-care (01) ==
LOC: ED 16:12
PROVIDERS: Emergency Provider Emergency Medicine; PCP Nurse Practitioner Family; Visit Provider Emergency Medicine
DX: B02.9 Zoster without complications (principal); I11.0 Hypertensive heart disease with heart failure; I50.22 Chronic systolic (congestive) heart failure; E11.9 Type 2 diabetes mellitus without complications; E78.00 Pure hypercholesterolemia, unspecified; I25.10 Atherosclerotic heart disease of native coronary artery without angina pectoris; Z87.891 Personal history of nicotine dependence
CPT/HCPCS: 99283

== ENCOUNTER → 2025-01-19 | Outpatient (CLI) | payer MEDICARE, SELFPAY ==
--- NOTE | 2025-01-19 15:00 | ECHOD_ITS ---
Reason For Study Reason For Study: DILATED CARDIOMYOPATHY Procedure This was a 2D Doppler, Color Flow transthoracic echocardiogram. The study was technically difficult. Contrast injection was performed. Exam performed in department. Left Ventricle Normal LV size. Left ventricular systolic function is normal. Stage 1 diastolic dysfunction. The left ventricular ejection fraction is 50 %. No regional wall motion abnormalities noted. Right Ventricle Normal RV size. Normal systolic function. Atria Normal left atrium. Normal right atrium. Mitral Valve Normal mitral valve. Tricuspid Valve Normal tricuspid valve. Mild tricuspid valve insufficiency. Pulmonary artery systolic pressure is 20 mmHg. Aortic Valve Trisinus/trileaflet aortic valve. Pulmonic Valve The pulmonic valve is not well visualized. Great Vessels Normal aortic root. The pulmonary artery is normal size. Inferior vena cava collapse with respiration. Pericardium/Pleural No pericardial effusion. Medication 22 gauge I.V. with prn adaptor inserted into left arm. Diluted definity 3.5ml given slow IV push to enhance endocardial definition. MMode/2D Measurements & Calculations LVIDd: 5.3 cm IVSd: 1.1 cm LVOT diam: 2.2 cm LVIDs: 4.0 cm LVPWd: 1.1 cm RVDd: 3.5 cm FS: 25.2 % LVOT area: 3.7 cm2 asc Aorta Diam: 3.4 cm LAV(MOD-bp): 46.2 ml LVAd ap4: 36.3 cm2 LAV(MOD-bp) Indexed: 21.0 ml/m2 LVLd ap4: 8.1 cm LAV(MOD-sp2): 48.5 ml EDV(MOD-sp4): 137.9 ml LAV(MOD-sp4): 45.8 ml EDV(sp4-el): 138.3 ml LVAs ap4: 24.6 cm2 LVLs ap4: 6.8 cm ESV(MOD-sp4): 74.9 ml ESV(sp4-el): 75.7 ml EF(MOD-sp4): 45.7 % EF(sp4-el): 45.3 % LVAd ap2: 26.1 cm2 SV(MOD-sp4): 63.0 ml SV(MOD-sp2): 21.8 ml LVLd ap2: 7.9 cm SI(MOD-sp4): 28.7 ml/m2 SI(MOD-sp2): 9.9 ml/m2 EDV(MOD-sp2): 69.9 ml EDV(sp2-el): 72.8 ml LVAs ap2: 20.2 cm2 LVLs ap2: 7.1 cm ESV(MOD-sp2): 48.1 ml ESV(sp2-el): 48.9 ml EF(MOD-sp2): 31.2 % SV(sp4-el): 62.6 ml Ao sinus diam: 3.[address] Junction: 2.4 cm LA dimension(2D): 4.3 cm LA A4 area: 18.1 cm2 RA A4 area: 9.6 cm2 TAPSE: 1.5 cm Time Measurements MV dec time: 0.24 sec Doppler Measurements & Calculations MV E max omega: 57.9 cm/sec Lat Peak E' Omega: 6.2 cm/sec Med Peak E' Omega: 11.6 cm/sec MV A max omega: 91.2 cm/sec E/E' lat: 9.4 E/E' med: 5.0 MV E/A: 0.63 MV dec slope: 237.7 cm/sec2 Ao V2 max: 148.7 cm/sec LV V1 max: 114.0 cm/sec Ao max P.9 mmHg LV V1 max P.2 mmHg Ao V2 mean: 112.6 cm/sec LV V1 mean P.5 mmHg Ao mean P.3 mmHg LV V1 mean: 91.6 cm/sec Ao V2 VTI: 31.8 cm LV V1 VTI: 25.1 cm AV (velocity ratio): 0.79 DEBRA(I,D): 2.9 cm2 DEBRA(V,D): 2.8 cm2 SV(LVOT): 91.6 ml PA V2 max: 91.8 cm/sec TR max omega: 203.8 cm/sec TR max P.6 mmHg ECHO/Echo Complete W/ Contrast Interpretation Summary Normal LV size. Left ventricular systolic function is normal. Stage 1 diastolic dysfunction. The left ventricular ejection fraction is 50 %. Contrast injection was performed. Ordering Physician: Misbah Marcum Referring Physician: Misbah Marcum MD Performed By: Filomena Arceo RDCS
== END | disposition home or self-care (01) ==
LOC: CVS 14:58
PROVIDERS: PCP Nurse Practitioner Family; Referring Provider Internal Medicine Cardiovascular Disease; Visit Provider Internal Medicine Cardiovascular Disease
DX: I42.0 Dilated cardiomyopathy (principal)
CPT/HCPCS: 93306; Q9957; A4216; C8929

== ENCOUNTER 2025-01-26 11:31 | Observation (INO) | payer MEDICARE, SELFPAY ==
[2025-01-26] VITALS (8 sets, daily range): BP systolic 107–152; BP diastolic 62–93; PULSE 59–124; RESP 14–18; TEMP 36.4–36.8; O2SAT 93–99; BMI 44.6; BMI 45.0
--- NOTE | 2025-01-26 12:27 | CT_ITS ---
PROCEDURE: BRAIN/HEAD WITHOUT CONTRAST 01/26/2025 REASON FOR EXAM: HEADACHE TECHNIQUE: BRAIN/HEAD WITHOUT CONTRAST Coronal and Sagittal reconstruction series were provided. One or more dose reduction techniques were used (e.g., Automated exposure control, adjustment of the mA and/or kV according to patient size, use of iterative reconstruction technique. RADIATION DOSE SUMMARY: CTDlvol: 89 mGy DLP: 1542 mGycm COMPARISON: February 18, 2024 FINDINGS: Brain: There is no evidence of hemorrhage, acute ischemia or mass. No extra- axial fluid collection, midline shift or mass effect. Low-density is seen in the periventricular white matter and deep white matter of the frontal and parietal lobes. Lacunar type infarcts in the basal ganglia. CSF Spaces: Normal Sinuses/Mastoids: Clear Bones: No fracture Right lens implant. CT/Brain/Head without Contrast IMPRESSION: 1. No evidence of intracranial hemorrhage or acute ischemia. 2. Changes of chronic microvascular ischemia and volume loss. Reading Location: [id number]
--- NOTE | 2025-01-26 12:27 | CT_ITS ---
PROCEDURE: CTA HEAD AND NECK W/ CONTRAST 01/26/2025 REASON FOR EXAM: HEADACHE, VISION CHANGES RIGHT SIDED TECHNIQUE: CTA HEAD AND NECK W/ CONTRAST Multiplanar Sagittal and Coronal images were obtained. 3D post processing was performed CONTRAST: Isovue 370 VOLUME: 100 mL One or more dose reduction techniques were used (e.g., Automated exposure control, adjustment of the mA and/or kV according to patient size, use of iterative reconstruction technique). RADIATION DOSE SUMMARY: CTDlvol: 30.3 mGy DLP: 1542.16 mGycm COMPARISON: Prior CT catheter head done earlier in the day. FINDINGS: There is a 6.4 mm hypodense nodule in the lower pole of the left lobe of the liver suggestive of a small colloid cyst. Aortic Arch: Normal size and branching pattern. Mild atherosclerotic plaque. Brachiocephalic and Subclavians: Unremarkable RIGHT Carotid: Right CCA: Unremarkable. Right ICA: Mild calcified and soft plaque. Maximum stenosis (NASCET): <50 % Right ECA: Unremarkable. LEFT Carotid: Left CCA: Unremarkable. Left ICA: Mild calcified and soft plaque. Maximum stenosis (NASCET): <20 % Left ECA: Unremarkable. Vertebrals: Codominant. Arise from the subclavians. Both vertebrals form the basilar. RIGHT Vertebral: Unremarkable. LEFT Vertebral: Unremarkable. Anatomy: [place] anatomy is normal. Aneurysm or avm: No intracranial aneurysms or large vascular malformations are identified. Anterior cerebral arteries: Unremarkable: Middle cerebral arteries: Unremarkable. Basilar artery: Unremarkable. Posterior cerebral arteries: Unremarkable. Other major branches of the posterior circulation: Unremarkable. Major venous structures: Unremarkable. Other findings: Neck: Lungs: Bones: CT/CTA Head AND Neck W/ Contrast IMPRESSION: Minimal plaque formation at the origin of the right and left internal carotid a rteries causing minimal narrowing. Reading Location: [facility]
[2025-01-26] MEDS: 0.9% Normal Saline (1000mL) 1,000 ML 1000 ML IV (12:40)
[2025-01-26 13:14] LABS: Anion Gap 12 (5-15); BUN 25 mg/dL (4-19); BUN/Creat Ratio 22.8 RATIO (10-20); Calcium,Total 9.4 mg/dL (7.6-11.0); Carbon Dioxide 22.0 mmol/L (21.0-32.0); Chloride 105 mmol/L (98-108); Estimated Creatinine Clearance 59.78 ml/min (50-250); Glucose 139 mg/dL (70-99); Potassium 4.2 mmol/L (3.3-5.1)
[2025-01-26 14:45] LABS: Hematocrit 40.8 % (37-47); Hemoglobin 13.2 g/dL (12.0-15.0); Immature Granulocytes Count 0.030 X10^3/uL (0.0-0.0); Mean Corp Hgb Conc 32.4 g/dL (32-36); Mean Corpuscular Volume 89.3 fL (81-99); Mean Platelet Vol. 9.5 fl (6.2-12.0); NRBC Flagged by Analyzer 0 % (0-5); Platelet Count 278 K/mm3 (150-450); RBC Distribution Width CV 13.2 % (11.6-14.6); RBC Distribution Width SD 42.8 fl (35.1-43.9); Red Blood Count 4.57 M/mm3 (4.2-5.4); White Blood Count 6.0 K/mm3 (4.4-11.0)
--- NOTE | 2025-01-26 14:52 | EKG12_ITS ---
Test Reason : rapid heart rate Blood Pressure : */* mmHG Vent. Rate : 60 BPM Atrial Rate : 60 BPM P-R Int : 156 ms QRS Dur : 172 ms QT Int : 508 ms P-R-T Axes : * -39 92 degrees QTcB Int : 508 ms AV dual-paced rhythm Biventricular pacemaker detected Abnormal ECG Confirmed by BRYCE HASSAN, MARCELINA ([id number]), photographic editor SMITH LOPEZ ([id number]) on 01/27/2025 9:02:46 AM Referred By: Confirmed By: MARCELINA WU MD
[2025-01-26 15:04] LABS: Prothrombin Time (Protime)PT. 14.0 SECONDS (11.7-14.9)
--- NOTE | 2025-01-26 15:07 | PCM.HP.STD ---
HPI - General General Date of Admission: 01/26/25 Date of Service: 01/26/25 Chief Complaint: Transient episode of confusion HPI Narrative THIAGO PIERRE, is a 69-year-old female history of nonobstructive CAD, BiV ICD in 2016, diabetes, NICOLLE, hypertension, depression, GERD, heart failure with recovered EF presented to [facility] ED 01/26/2025 due to transient episode of confusion. In the ED temp 98, heart rate initially 124 and came down to 60, blood pressure 117/88, respiratory rate 16 and pulse ox 95% on room air. BMP with a glucose of 139, BUN of 25 and creatinine 1.09. CBC unremarkable, INR 1.1. CT of the head with no acute process, CTA head and neck no LVO. Hospitalist contacted for admission for TIA rule out. Reportedly patient had a headache yesterday and took a nap, when she woke up she was confused for 5 minutes and did not know where she was or who her family members were, this completely resolved after 5 minutes. She also notes that she has had a screen like feeling over her right eye for several weeks but yesterday she developed dark lines and spots in her vision, today she went to the cuff stitcher and was told she has retinopathy and had some bleeding behind the eye and was referred to a specialist who she will follow-up with on Sunday but they recommended patient come to the ED to rule out a stroke given the episode of confusion yesterday. Patient said she still has a headache in its frontal and bilateral and it slightly improved with the Tylenol. Reports she still has some dots in her vision and still feels a little bit like the screen is pulled over it but feels her vision is slowly clearing. She reports she has some chronic right lower extremity neuropathy that has been a little bit worse recently but no acute numbness or tingling, no other acute ROS complaints aside from the above. Notes that she does have sleep apnea but has not used her NIPPV for several years, mental status seems back to baseline and patient not somnolent or with decreased level of consciousness. [facility] Medical History Essential hypertension Elevated troponin History of diabetes mellitus Hx of cardiomyopathy Dysarthria Medication reaction Intractable nausea and vomiting Dizziness Depression Near syncope Vertigo Carotid artery disease Pure hypercholesterolemia Atherosclerotic heart disease of [place] coronary artery without angina pectoris Nonrheumatic mitral (valve) insufficiency Dilated cardiomyopathy Chronic systolic (congestive) heart failure BALWINDER (acute kidney injury) Abnormal electrocardiogram Systolic CHF, acute Hypertension Hyperlipidemia Diabetes mellitus, type II NICOLLE (obstructive sleep apnea) Home Medications ?Medication ?Instructions ?Recorded ?Last Taken ?Type aspirin 81 mg tablet,delayed 81 mg PO DAILY@0800 HEALTH 01/26/17 01/25/25 History release MAINTENANCE magnesium chloride 71.5 mg 71.5 mg PO DAILY suppliment 07/23/20 01/26/25 History (magnesium chloride) tablet,delayed release (Slow-Mag) Handicap Parking Placard #1 ea 05/09/22 Unknown Rx sacubitril 97 mg-valsartan 103 mg 1 tab PO BID HF #180 tabs 11/04/24 01/26/25 Rx tablet (Entresto) furosemide 20 mg tablet 20 mg PO QDAY water pill #90 tabs 11/17/24 01/26/25 Rx amlodipine 10 mg tablet 10 mg PO DAILY 11/30/24 01/26/25 History carvedilol 25 mg tablet 25 mg PO DAILY 11/30/24 01/26/25 History cholecalciferol (vitamin D3) 1,250 1,250 mcg PO QWEEK 11/30/24 01/18/25 History mcg (50,000 unit) capsule insulin degludec 100 unit/mL (3 7 unit subcut Q24H diabetes 11/30/24 11/30/24 History mL) subcutaneous pen (Tresiba FlexTouch U-100 insulin) tirzepatide 5 mg/0.5 mL 5 mg (0.5 mL) subcut QWEEK #2 mL 12/29/24 01/21/25 Rx subcutaneous pen injector (Antoniunjaro) dapagliflozin propanediol 10 mg 10 mg PO DAILY 01/26/25 01/26/25 History tablet (Farxiga) gabapentin 600 mg tablet 600 mg PO DAILY 01/26/25 01/26/25 History gabapentin 800 mg tablet 800 mg PO QHS 01/26/25 01/25/25 History insulin lispro 100 unit/mL 10 unit subcut TID 01/26/25 01/26/25 History subcutaneous pen (Humalog KwikPen (U-100) Insulin) Allergy/AdvReac Type Severity Reaction Status Date / Time red dye Allergy Hives Verified 01/26/25 11:33 Vvldrcj-CFJ-RjL Reductase AdvReac Severe Myalgias Verified 01/26/25 11:33 Inhibitor (Bsgduts-Wbl-Ezf Reductase Inhibitor) Family History Father , Lung cancer Lung cancer Mother , Breast cancer Breast cancer Brother Cancer lymphoma Surgical History History of eye surgery History of left heart catheterization (LHC) (~05/26/15) Status post foot surgery Status post breast reduction S/P hysterectomy History of bilateral breast reduction surgery History of bilateral foot surgery History of hysterectomy Cardiac defibrillator in situ Social History household members: spouse Smoking Status: Former smoker quit date: 06/11/06 alcohol intake: never substance use type: does not use caffeine: No what type of physical activity do you participate in: none seatbelt use: always do you feel safe at home: Yes ROS ROS Narrative General: Denies fever/chills HENT: Has frontal headache, little bit better today but has been present since yesterday, denies stuffy nose, denies sore throat EYES: Has some black dots in her right vision but it slowly clearing resp: Denies cough, denies shortness of breath Cardiac: Denies chest pain GI: Denies abdominal pain, denies changes in bowel, some chronic constipation, denies nausea/vomiting : Denies changes in urination Extremity: Denies new swelling MSK: Denies new or focal weakness Neuro: Denies any new numbness/tingling, some chronic neuropathy in right lower extremity Heme: Denies any bleeding or bruising Skin: Denies rashes Psychiatric: No complaints voiced Vital Signs Vital Signs Vital Signs: 01/26/25 11:33 01/26/25 13:28 01/26/25 14:00 Temperature 98.0 F Temperature Source Oral Pulse Rate 124 H 60 61 Respiratory Rate 16 14 16 Blood Pressure 117/80 110/64 139/73 H Blood Pressure Mean 92 79 95 Pulse Ox 95 93 95 Oxygen Delivery Method Room Air Weight Weight: 117.934 kg Body Mass Index (BMI) 44.6 Physical Exam Narrative General: Alert, oriented, no apparent distress HEENT: Atraumatic, normocephalic Eyes: Anicteric, normal conjunctiva, extraocular movements intact, right pupil larger than left pupil Neck: Supple Respiratory: Clear to auscultation bilaterally, normal respiratory effort Cardiovascular: Regular rate and rhythm GI: Soft, nontender, nondistended Extremities: No edema Musculoskeletal: Strength 5 out of 5 in right upper extremity, 5 out of 5 left upper extremity, 5 out of 5 right lower extremity, 5 out of 5 left lower extremity Neuro: Query very slight flattening of right nasolabial fold, otherwise no overt focal neurological deficits, cranial nerves II through XII intact, [id number] without significant difficulty bilaterally Skin: No rashes appreciated Psych: Cooperative Results Lab / Micro Data 01/26/25 12:22 01/26/25 12:22 Labs: Laboratory Results - last 24 hr 01/26/25 12:22: WBC 6.0, RBC 4.57, Hgb 13.2, Hct 40.8, MCV 89.3, MCH 28.9, MCHC 32.4, RDW Std Deviation 42.8, RDW Coeff of Ivet 13.2, Plt Count 278, MPV 9.5, Immature Gran % (Auto) 0.500, Neut % (Auto) 47.9, Lymph % (Auto) 39.4, [place] % (Auto) 9.0, Eos % (Auto) 2.7, Baso % (Auto) 0.5, Absolute Neuts (auto) 2.9, Absolute Lymphs (auto) 2.36, Nucleated RBC % 0, PT 14.0, INR 1.1, Sodium 139, Potassium 4.2, Chloride 105, Carbon Dioxide 22.0, Anion Gap 12, BUN 25 H, Creatinine 1.09, Estim Creat Clear Calc 59.78, Est GFR (MDRD) Non-Af 54 L, BUN/Creatinine Ratio 22.8 H, Glucose 139 H, Calcium 9.4 Imaging Radiology Impression Brain CT 01/26/25 12:27 IMPRESSION: 1. No evidence of intracranial hemorrhage or acute ischemia. 2. Changes of chronic microvascular ischemia and volume loss. Reading Location: [id number] Head/Neck CTA 01/26/25 12:27 IMPRESSION: Minimal plaque formation at the origin of the right and left internal carotid arteries causing minimal narrowing. Reading Location: [id number] Assessment & Plan Assessment/Plan (1) Confusion: PLAN: Plan # Transient episode of confusion -Admit to tele -CT head w/ no acute process -CTA head and neck no LVO -MRI ordered, patient had an MRI in 2023 and that was after her ICD was placed, presume we can proceed with MRI here -NIH q4hr -asa, not on statin due to history of adverse reaction with myalgias -Patient just had echocardiogram done earlier this month, will not repeat -PT/OT/Speech eval -Teleneuro consult ordered -Symptoms were about 24 hours ago given patient's ophthalmologic problems feel it is reasonable to manage blood pressure and not allow permissive hypertension again we are 24 hours out at this point # 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 - Patient seen by Optho today was diagnosed with this, patient reports vision is clearing -She reports no acute management was recommended but she is to see a specialist on Sunday in 2 days #Chronic heart failure with recovered ejection fraction with ICD -Daily weights -I's and O's -Heart healthy diet -Fluid restriction -Continue patients home medications #Type 2 diabetes mellitus -Glucose checks and sliding scale insulin #Depression/anxiety -Continue home medications #NICOLLE - Patient noncompliant with NIPPV for several years #GERD -Continue PPI #Hypertension - Continue medications #DVT ppx: SCDs Dahiana Oakley MD Charges/Coding Visit Charges Inpatient E&M: 44317 Init Hosp L2
[2025-01-26 15:35] LABS: Troponin T High Sensitivity 15 ng/L (<=14)
--- NOTE | 2025-01-26 15:42 | ED.VIS.STROK ---
HPI History of Present Illness Chief Complaint: Headache Narrative Narrative: Patient is a 69-year-old female presenting to the emergency department for a headache., Right sided visual changes and concern for stroke. Patient has a past medical history as below. Patient states that yesterday around 1 PM she went to take a nap and when she woke up she did not know who she was, who her family members were in the house or where she was for about 5 minutes. She states for about the past week she has had right sided visual changes where it looks like she is looking through a screen. She reports that for the past few days she has had wavy lines in her right vision as well. 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 She denies any speech difficulty, numbness or weakness in her arms or legs or trouble ambulating. She states that she went to the eye doctor today and they diagnosed her with a posterior posterior detachment and vitreous hemorrhage in the right eye. Patient states she did not take anything for headache today. She states although it has been ongoing for the past 2 or 3 days it will go for short periods of time and then come back gradually. [facility] Medical History Essential hypertension Elevated troponin History of diabetes mellitus Hx of cardiomyopathy Dysarthria Medication reaction Intractable nausea and vomiting Dizziness Depression Near syncope Vertigo Carotid artery disease Pure hypercholesterolemia Atherosclerotic heart disease of [place] coronary artery without angina pectoris Nonrheumatic mitral (valve) insufficiency Dilated cardiomyopathy Chronic systolic (congestive) heart failure BALWINDER (acute kidney injury) Abnormal electrocardiogram Systolic CHF, acute Hypertension Hyperlipidemia Diabetes mellitus, type II NICOLLE (obstructive sleep apnea) Home Medications ?Medication ?Instructions ?Recorded ?Last Taken ?Type aspirin 81 mg tablet,delayed 81 mg PO DAILY@0800 HEALTH 01/26/17 01/25/25 History release MAINTENANCE magnesium chloride 71.5 mg 71.5 mg PO DAILY suppliment 07/23/20 01/26/25 History (magnesium chloride) tablet,delayed release (Slow-Mag) Handicap Parking Placard #1 ea 05/09/22 Unknown Rx sacubitril 97 mg-valsartan 103 mg 1 tab PO BID HF #180 tabs 11/04/24 01/26/25 Rx tablet (Entresto) furosemide 20 mg tablet 20 mg PO QDAY water pill #90 tabs 11/17/24 01/26/25 Rx amlodipine 10 mg tablet 10 mg PO DAILY 11/30/24 01/26/25 History carvedilol 25 mg tablet 25 mg PO DAILY 11/30/24 01/26/25 History cholecalciferol (vitamin D3) 1,250 1,250 mcg PO QWEEK 11/30/24 01/18/25 History mcg (50,000 unit) capsule insulin degludec 100 unit/mL (3 7 unit subcut Q24H diabetes 11/30/24 11/30/24 History mL) subcutaneous pen (Tresiba FlexTouch U-100 insulin) tirzepatide 5 mg/0.5 mL 5 mg (0.5 mL) subcut QWEEK #2 mL 12/29/24 01/21/25 Rx subcutaneous pen injector (Mounjaro) dapagliflozin propanediol 10 mg 10 mg PO DAILY 01/26/25 01/26/25 History tablet (Farxiga) gabapentin 600 mg tablet 600 mg PO DAILY 01/26/25 01/26/25 History gabapentin 800 mg tablet 800 mg PO QHS 01/26/25 01/25/25 History insulin lispro 100 unit/mL 10 unit subcut TID 01/26/25 01/26/25 History subcutaneous pen (Humalog KwikPen (U-100) Insulin) Allergy/AdvReac Type Severity Reaction Status Date / Time red dye Allergy Hives Verified 01/26/25 11:33 Rypxtba-BKB-ZfA Reductase AdvReac Severe Myalgias Verified 01/26/25 11:33 Inhibitor (Lldepwc-Qhj-Ryu Reductase Inhibitor) Family History Father , Lung cancer Lung cancer Mother , Breast cancer Breast cancer Brother Cancer lymphoma Surgical History History of eye surgery History of left heart catheterization (LHC) (~05/26/15) Status post foot surgery Status post breast reduction S/P hysterectomy History of bilateral breast reduction surgery History of bilateral foot surgery History of hysterectomy Cardiac defibrillator in situ Social History household members: spouse Smoking Status: Former smoker quit date: 06/11/06 alcohol intake: never substance use type: does not use caffeine: No what type of physical activity do you participate in: none seatbelt use: always do you feel safe at home: Yes ROS ROS ED ROS Narrative see HPI EXAM Physical Exam Narrative Exam Narrative: Vital signs: Reviewed General: Alert and orientedx3. No acute distress HEENT: Head is normocephalic and atraumatic, sinuses nontender, right pupil round and reactive. Left pupil nonreactive. Nares are patent. Oropharynx and throat exams normal. Neck: Supple without lymphadenopathy nontender Cardiovascular: Regular rate and rhythm, no murmurs. No rubs or gallops. Normal S1 and S2 Respiratory: Clear to auscultation bilaterally. No wheezes, rales, rhonchi Abdominal: Soft and nontender. Normal bowel sounds. No guarding or rebound. Nonsurgical abdomen Extremities: No tenderness. No bruising. Normal range of motion. Normal sensation. Skin: No rash or redness. Neurological: Cranial nerves II through XII are grossly intact. Normal strength and sensation. Normal cerebellar function The rest of the physical exam is unremarkable Const Vital Signs: 01/26/25 11:33 01/26/25 13:28 01/26/25 14:00 Temperature 98.0 F Temperature Source Oral Pulse Rate 124 H 60 61 Respiratory Rate 16 14 16 Blood Pressure 117/80 110/64 139/73 H Blood Pressure Mean 92 79 95 Pulse Ox 95 93 95 Oxygen Delivery Method Room Air MDM MDM MDM Narrative Medical decision making narrative: Patient is a 69-year-old female presenting to the emergency department for concern of a stroke. Patient was seen and examined. Vitals are stable. Patient resting bed comfortably no acute distress. Differential includes but is not limited to: Stroke, transient global amnesia, TIA, electrolyte derangement, ocular migraine, less likely SAH was not sudden onset, comes and goes, not the worst headache she has had Complete visual exam was done at the [facility] prior to arrival and I have the physicians documentation that shows the findings and impression of a posterior vitreous detachment and vitreous hemorrhage. For this reason, I will not complete another exam here. CT brain and CTA head and neck were ordered. Patient given fluids and Tylenol for her headache. CBC with no leukocytosis and a normal hemoglobin. BMP with slight elevation in BUN at 25, otherwise no significant abnormalities. CT brain shows no evidence of intracranial hemorrhage or acute ischemia. Changes of chronic microvascular ischemia and volume loss. CTA shows minimal plaque formation at the origin of the right and left internal carotid arteries causing minimal narrowing. Patient was reevaluated. Headache is improved after fluids and Tylenol alone. Patient and updated on the CT findings. Explained to them that I cannot completely rule out a TIA that occurred yesterday however it does sound like a transient global amnesia event. They state they would feel much more comfortable having an MRI done and being admitted. Patient mated to hospitalist for further management. Clinical impression: headache vision changes History & Record Review Discussion w/independent historian: Patient and Significant other Lab Data Attestation: I reviewed the patient's lab results. Labs: Laboratory Results - last 24 hr 01/26/25 12:22 WBC 6.0 RBC 4.57 Hgb 13.2 Hct 40.8 MCV 89.3 MCH 28.9 MCHC 32.4 RDW Std Deviation 42.8 RDW Coeff of Ivet 13.2 Plt Count 278 MPV 9.5 Immature Gran % (Auto) 0.500 Neut % (Auto) 47.9 Lymph % (Auto) 39.4 [place] % (Auto) 9.0 Eos % (Auto) 2.7 Baso % (Auto) 0.5 Absolute Neuts (auto) 2.9 Absolute Lymphs (auto) 2.36 Nucleated RBC % 0 PT 14.0 INR 1.1 Sodium 139 Potassium 4.2 Chloride 105 Carbon Dioxide 22.0 Anion Gap 12 BUN 25 H Creatinine 1.09 Estim Creat Clear Calc 59.78 Est GFR (MDRD) Non-Af 54 L BUN/Creatinine Ratio 22.8 H Glucose 139 H Calcium 9.4 Troponin T High Sens 15 H D Radiography Diagnostic Testing: Clinical Impression(s) from Imaging Studies Brain CT 01/26/25 12:27 IMPRESSION: 1. No evidence of intracranial hemorrhage or acute ischemia. 2. Changes of chronic microvascular ischemia and volume loss. Reading Location: [id number] Head/Neck CTA 01/26/25 12:27 IMPRESSION: Minimal plaque formation at the origin of the right and left internal carotid arteries causing minimal narrowing. Reading Location: [facility] Discharge Plan Disposition Disposition: Acute Care Hospital [facility] Discharge Date/Time: 01/26/25 15:46 NIHSS NIHSS 1a. Level of Consciousness: 0 - Alert; keenly responsive 1b. LOC Questions: 0 - Answers BOTH questions correctly 1c. LOC Commands: 0 - Performs BOTH tasks correctly 2. Best Gaze: 0 - Normal 3. Visual: 0 - No visual loss 4. Facial Palsy: 0 - Normal symmetrical movements 5a. Left Arm: 0 - No drift; arm holds 90 (or 45) degrees for full 10 seconds 5b. Right Arm: 0 - No drift; arm holds 90 (or 45) degrees for full 10 seconds 6a. Left Le - No drift; leg holds 30-degree position for full 5 seconds 6b. Right Le - No drift; leg holds 30-degree position for full 5 seconds 7. Limb Ataxia: 0 - Absent 8. Sensory: 0 - Normal; no sensory loss 9. Best Language: 0 - No aphasia; normal 10. Dysarthria: 0 - Normal 11. Extinction and Inattention: 0 - No abnormality Total: 0
[2025-01-26 16:24] LABS: Troponin T High Sens 2 HR 14 ng/L (<=14)
[2025-01-26 17:25] LABS: Troponin T High Sens 4 HR 11 ng/L (<=14)
[2025-01-26] MEDS: SACUBITRIL/VALSARTAN 97-103 MG TABLET 1 EACH PO (20:43)
[2025-01-27] VITALS (9 sets, daily range): BP systolic 117–140; BP diastolic 58–78; PULSE 61–80; RESP 16–18; TEMP 36.1–36.7; O2SAT 92–98; BMI 45.0; BMI 44.9
[2025-01-27 05:38] LABS: Hematocrit 39.0 % (37-47); Hemoglobin 12.8 g/dL (12.0-15.0); Immature Granulocytes Count 0.030 X10^3/uL (0.0-0.0); Mean Corp Hgb Conc 32.8 g/dL (32-36); Mean Corpuscular Volume 87.8 fL (81-99); Mean Platelet Vol. 9.2 fl (6.2-12.0); NRBC Flagged by Analyzer 0 % (0-5); Platelet Count 265 K/mm3 (150-450); RBC Distribution Width CV 13.3 % (11.6-14.6); RBC Distribution Width SD 42.6 fl (35.1-43.9); Red Blood Count 4.44 M/mm3 (4.2-5.4); White Blood Count 5.4 K/mm3 (4.4-11.0)
[2025-01-27 06:54] LABS: Anion Gap 13 (5-15); BUN 22 mg/dL (4-19); BUN/Creat Ratio 18.9 RATIO (10-20); Calcium,Total 8.6 mg/dL (7.6-11.0); Carbon Dioxide 20.2 mmol/L (21.0-32.0); Chloride 105 mmol/L (98-108); Cholesterol 220 mg/dL (<=200); Estimated Creatinine Clearance 55.91 ml/min (50-250); Glucose 152 mg/dL (70-99); Low Density Lipoprotein Calc. 133 mg/dL; Potassium 4.3 mmol/L (3.3-5.1); Triglycerides 218 mg/dL; Very Low Density Lipoprotein 44 mg/dL (5-40); cholesterol:hdl ratio screen 5.10
[2025-01-27] MEDS: 0.9% Saline Lock 10 ML Syringe IV (09:35)
--- NOTE | 2025-01-27 10:40 | NEURO.CONS ---
Assessment and Plan: Neuro Assessment/Plan THIAGO PIERRE is a 69 F with a past medical history of HTN, HLD, who is presenting with a transient episode of confusion upon awakening lasting 5 minutes in the setting of bilateral frontal headache that has been going on for few days. Exam and MRI brain are reassuring Episode likely benign related to migraine headache and waking up from a nap Patietn is at her baseline Can utilize headache cocktial if needed. Can give all the following together unless contraindicated. - ketorolac 30mg IVP or 30-60mg IM - metoclopramide 10mg IVP over 2min OR ondansetron 8mg IVP OR prochlorperazine 10mg IVP over 30s q2-4h PRN - Benadryl 25 or 50 mg IV - IVF - Magnesium Sulfate 1 gram IV over 1 hr She should follow up with ophtho as planned given retinopathy Will sign off. Please call with questions I personally attended this patient and spent a total time of 45 minutes evaluating this patient including clinical assessment, review of chart, medical history imaging, and determining appropriate treatment and workup. HPI Consult Data Date of Consult: 01/27/25 HPI Narrative HPI Narrative: THIAGO PIERRE, is a 69-year-old woman with history of nonobstructive CAD, BiV ICD in 2016, diabetes, NICOLLE, hypertension, depression, GERD, heart failure with recovered EF, migraines presented to [facility] ED 01/26/2025 due to transient episode of confusion. Reportedly patient had a headache yesterday around 4 days ago, headache is bilateral frontal, pulsating in nature. Some photophobia, no phonophobia. No nausea/vomiting. She took a nap, when she woke up she was confused for 5 minutes and did not know where she was or who her family members were, this completely resolved after 5 minutes. Patient reports she was aware of the episode, she remembers it, she asked where she was. No reports of slurred speech of facial droop. The episode resolved. Headache continued until now, it is a little better now but is still there. No tingilng, numbness, weakness. She also notes that she has had a screen like feeling over her right eye for several weeks but yesterday she developed dark lines and spots in her vision, today she went to the systems software engineer and was told she has retinopathy and had some bleeding behind the eye and was referred to a specialist who she will follow-up with on Sunday but they recommended patient come to the ED to rule out a stroke given the episode of confusion yesterday. In the ED blood pressure 117/88, respiratory rate 16 and pulse ox 95% on room air. BMP with a glucose of 139, BUN of 25 and creatinine 1.09. CBC unremarkable, INR 1.1. CT of the head with no acute process, CTA head and neck no LVO. MRI brain with no acute findings PHYSICAL EXAM: Exam performed with help of the nurse/ROSALIA present with patient on Tele site NEURO: AAOx3, follows commands, no aphasia/dysarthria. EOMI, no gaze preference/nystagmus. Face symmetric, Intact facial sensation. Tongue midline. Head turning intact. Sensation: intact to light touch all over Motor: All extremities antigravity Coordination: FTN intact bilaterally [facility] Medical History Essential hypertension Elevated troponin History of diabetes mellitus Hx of cardiomyopathy Dysarthria Medication reaction Intractable nausea and vomiting Dizziness Depression Near syncope Vertigo Carotid artery disease Pure hypercholesterolemia Atherosclerotic heart disease of [place] coronary artery without angina pectoris Nonrheumatic mitral (valve) insufficiency Dilated cardiomyopathy Chronic systolic (congestive) heart failure BALWINDER (acute kidney injury) Abnormal electrocardiogram Systolic CHF, acute Hypertension Hyperlipidemia Diabetes mellitus, type II NICOLLE (obstructive sleep apnea) Home Medications ?Medication ?Instructions ?Recorded ?Last Taken ?Type aspirin 81 mg tablet,delayed 81 mg PO DAILY@0800 HEALTH 01/26/17 01/25/25 History release MAINTENANCE magnesium chloride 71.5 mg 71.5 mg PO DAILY suppliment 07/23/20 01/26/25 History (magnesium chloride) tablet,delayed release (Slow-Mag) Handicap Parking Placard #1 ea 05/09/22 Unknown Rx sacubitril 97 mg-valsartan 103 mg 1 tab PO BID HF #180 tabs 11/04/24 01/26/25 Rx tablet (Entresto) furosemide 20 mg tablet 20 mg PO QDAY water pill #90 tabs 11/17/24 01/26/25 Rx amlodipine 10 mg tablet 10 mg PO DAILY 11/30/24 01/26/25 History carvedilol 25 mg tablet 25 mg PO DAILY 11/30/24 01/26/25 History cholecalciferol (vitamin D3) 1,250 1,250 mcg PO QWEEK 11/30/24 01/18/25 History mcg (50,000 unit) capsule insulin degludec 100 unit/mL (3 7 unit subcut Q24H diabetes 11/30/24 11/30/24 History mL) subcutaneous pen (Tresiba FlexTouch U-100 insulin) tirzepatide 5 mg/0.5 mL 5 mg (0.5 mL) subcut QWEEK #2 mL 12/29/24 01/21/25 Rx subcutaneous pen injector (Mounjaro) dapagliflozin propanediol 10 mg 10 mg PO DAILY 01/26/25 01/26/25 History tablet (Farxiga) gabapentin 600 mg tablet 600 mg PO DAILY 01/26/25 01/26/25 History gabapentin 800 mg tablet 800 mg PO QHS 01/26/25 01/25/25 History insulin lispro 100 unit/mL 10 unit subcut TID 01/26/25 01/26/25 History subcutaneous pen (Humalog KwikPen (U-100) Insulin) Allergy/AdvReac Type Severity Reaction Status Date / Time red dye Allergy Hives Verified 01/26/25 11:33 Onrgach-JKD-QgA Reductase AdvReac Severe Myalgias Verified 01/26/25 11:33 Inhibitor (Fufmkie-Wrx-Frt Reductase Inhibitor) Family History Father , Lung cancer Lung cancer Mother , Breast cancer Breast cancer Brother Cancer lymphoma Surgical History History of eye surgery History of left heart catheterization (LHC) (~05/26/15) Status post foot surgery Status post breast reduction S/P hysterectomy History of bilateral breast reduction surgery History of bilateral foot surgery History of hysterectomy Cardiac defibrillator in situ Social History household members: spouse Smoking Status: Former smoker quit date: 06/11/06 alcohol intake: never substance use type: does not use caffeine: No what type of physical activity do you participate in: none seatbelt use: always do you feel safe at home: Yes Vital Signs Vital Signs Vital Signs: 01/26/25 11:33 01/26/25 13:28 01/26/25 14:00 Temperature 98.0 F Temperature Source Oral Pulse Rate 124 H 60 61 Pulse Strength Respiratory Rate 16 14 16 Respiratory Effort Respiratory Depth Respiratory Pattern Blood Pressure 117/80 110/64 139/73 H Blood Pressure Mean 92 79 95 Blood Pressure Source Blood Pressure Position Blood Pressure Location Pulse Ox 95 93 95 Oxygen Delivery Method Room Air 01/26/25 15:00 01/26/25 15:46 01/26/25 17:10 Temperature 97.6 F L 98.2 F Temperature Source Oral Pulse Rate 76 76 59 L Pulse Strength Respiratory Rate 18 18 18 Respiratory Effort Respiratory Depth Respiratory Pattern Blood Pressure 107/93 H 107/93 H 152/76 H Blood Pressure Mean 97 97 101 Blood Pressure Source Monitor Blood Pressure Position Semi-Fowlers Blood Pressure Location Left Forearm Pulse Ox 99 99 96 Oxygen Delivery Method Room Air Room Air 01/26/25 17:10 01/26/25 17:18 01/26/25 20:18 Temperature 97.7 F L Temperature Source Oral Pulse Rate 59 L Pulse Strength Respiratory Rate 18 Respiratory Effort Normal Non-Labored Respiratory Depth Normal Respiratory Pattern Normal Blood Pressure 152/76 H Blood Pressure Mean 101 Blood Pressure Source Monitor Blood Pressure Position Semi-Fowlers Blood Pressure Location Left Forearm Pulse Ox 96 95 Oxygen Delivery Method Room Air Room Air Room Air 01/26/25 20:40 01/26/25 22:35 01/27/25 00:41 Temperature 97.6 F L 97.0 F L Temperature Source Temporal Temporal Pulse Rate 61 61 Pulse Strength Normal (2+) Respiratory Rate 18 18 Respiratory Effort Respiratory Depth Respiratory Pattern Blood Pressure 141/62 H 131/66 H Blood Pressure Mean 88 87 Blood Pressure Source Monitor Monitor Blood Pressure Position Semi-Fowlers Semi-Fowlers Blood Pressure Location Left Arm Left Forearm Pulse Ox 95 94 Oxygen Delivery Method Room Air Room Air 01/27/25 00:50 01/27/25 04:40 01/27/25 07:29 Temperature 98.0 F Temperature Source Temporal Pulse Rate 66 Pulse Strength Respiratory Rate 18 Respiratory Effort Normal Non-Labored Respiratory Depth Normal Respiratory Pattern Normal Blood Pressure 117/58 L Blood Pressure Mean 77 Blood Pressure Source Monitor Blood Pressure Position Semi-Fowlers Blood Pressure Location Left Forearm Pulse Ox 94 95 Oxygen Delivery Method Room Air Room Air Room Air 01/27/25 08:40 01/27/25 08:47 01/27/25 08:48 Temperature 98.1 F Temperature Source Oral Pulse Rate 63 Pulse Strength Normal (2+) Respiratory Rate 17 Respiratory Effort Normal Non-Labored Respiratory Depth Normal Respiratory Pattern Normal Blood Pressure 123/67 H Blood Pressure Mean 85 Blood Pressure Source Monitor Blood Pressure Position Semi-Fowlers Blood Pressure Location Right Arm Pulse Ox 95 Oxygen Delivery Method Room Air Room Air 01/27/25 10:22 01/27/25 10:32 Temperature Temperature Source Pulse Rate 80 80 Pulse Strength Respiratory Rate 16 16 Respiratory Effort Respiratory Depth Respiratory Pattern Blood Pressure 140/69 H 117/77 Blood Pressure Mean 92 90 Blood Pressure Source Monitor Monitor Blood Pressure Position Supine Supine Blood Pressure Location Left Arm Left Arm Pulse Ox 95 92 Oxygen Delivery Method Room Air Room Air Weight Weight: 118.7 kg Body Mass Index (BMI) 44.9 EEG Results Procedure Details EEG Procedure Details: THIAGO PIERRE is a 69 year old F with a past medical history of , who presents for evaluation of Electroencephalogram on DATE at TIME Lab / Micro Data 01/27/25 05:04 01/27/25 05:04 Labs: Laboratory Results - last 24 hr 01/26/25 12:22: WBC 6.0, RBC 4.57, Hgb 13.2, Hct 40.8, MCV 89.3, MCH 28.9, MCHC 32.4, RDW Std Deviation 42.8, RDW Coeff of Ivet 13.2, Plt Count 278, MPV 9.5, Immature Gran % (Auto) 0.500, Neut % (Auto) 47.9, Lymph % (Auto) 39.4, [place] % (Auto) 9.0, Eos % (Auto) 2.7, Baso % (Auto) 0.5, Absolute Neuts (auto) 2.9, Absolute Lymphs (auto) 2.36, Nucleated RBC % 0, PT 14.0, INR 1.1, Sodium 139, Potassium 4.2, Chloride 105, Carbon Dioxide 22.0, Anion Gap 12, BUN 25 H, Creatinine 1.09, Estim Creat Clear Calc 59.78, Est GFR (MDRD) Non-Af 54 L, BUN/Creatinine Ratio 22.8 H, Glucose 139 H, Calcium 9.4, Troponin T High Sens 15 H D 01/26/25 15:25: Troponin T Hi Sens 2 Hr 14 01/26/25 16:48: Troponin T Hi Sens 4Hr 11 01/26/25 18:24: POC Glucose 113 H 01/26/25 20:35: POC Glucose 153 H 01/27/25 05:04: WBC 5.4, RBC 4.44, Hgb 12.8, Hct 39.0, MCV 87.8, MCH 28.8, MCHC 32.8, RDW Std Deviation 42.6, RDW Coeff of Ivet 13.3, Plt Count 265, MPV 9.2, Immature Gran % (Auto) 0.600, Neut % (Auto) 53.5, Lymph % (Auto) 34.6, [place] % (Auto) 7.1, Eos % (Auto) 3.6, Baso % (Auto) 0.6, Absolute Neuts (auto) 2.9, Absolute Lymphs (auto) 1.85, Nucleated RBC % 0, Sodium 138, Potassium 4.3, Chloride 105, Carbon Dioxide 20.2 L, Anion Gap 13, BUN 22 H, Creatinine 1.17, Estim Creat Clear Calc 55.91, Est GFR (MDRD) Non-Af 50 L, BUN/Creatinine Ratio 18.9, Glucose 152 H, Hemoglobin A1c 8.1 H, Calcium 8.6, Triglycerides 218 H, Cholesterol 220 H, LDL Cholesterol, Calc 133, VLDL Cholesterol 44 H, HDL Cholesterol 43, Cholesterol/HDL Ratio 5.10, TSH 3.260 01/27/25 06:39: POC Glucose 152 H Imaging Radiology Impression Brain CT 01/26/25 12:27 IMPRESSION: 1. No evidence of intracranial hemorrhage or acute ischemia. 2. Changes of chronic microvascular ischemia and volume loss. Reading Location: [id number] Head/Neck CTA 01/26/25 12:27 IMPRESSION: Minimal plaque formation at the origin of the right and left internal carotid arteries causing minimal narrowing. Reading Location: [id number] Active Medications Active Medications Active Medications: Current Medications Generic Name Dose Route Start Last Admin Trade Name Freq PRN Reason Stop Dose Admin Acetaminophen 650 mg 01/26/25 18:30 Acetaminophen 325 Mg Tablet PO Q6H PRN PRN Pain 1-10 Or Fever >100.7 Albuterol Sulfate 2.5 mg 01/26/25 16:52 Albuterol 2.5 Mg/3 Ml Vial.Neb. INHALATION Q2H PRN PRN SOB &/OR WHEEZING Amlodipine Besylate 10 mg 01/27/25 10:00 01/27/25 09:06 Amlodipine 10 Mg Tablet PO Not Given DAILY ABDULLAHI Protocol Aspirin 81 mg 01/27/25 08:00 01/27/25 08:54 Aspirin 81 Mg Tab.Chew PO 81 mg BREAKFAST ABDULLAHI Administration Carvedilol 12.5 mg 01/26/25 22:00 01/27/25 09:06 Carvedilol 12.5 Mg Tablet PO Not Given BID ABDULLAHI Furosemide 20 mg 01/26/25 16:52 01/26/25 18:26 Furosemide 20 Mg Tablet PO Not Given DAILY ABDULLAHI Protocol Gabapentin 600 mg 01/27/25 10:00 01/27/25 08:54 Gabapentin 600 Mg Tablet PO 600 mg DAILY ABDULLAHI Administration Gabapentin 800 mg 01/26/25 22:00 01/26/25 20:43 Gabapentin 800 Mg Tablet PO 800 mg QHS ABDULLAHI Administration Glucagon 1 mg 01/26/25 16:52 Glucagon 1 Mg/Ml Syringe IM X1 PRN HYPOGLYCEMIA Protocol Hydralazine HCl 5 mg 01/26/25 16:52 Hydralazine 20 Mg/Ml Vial IV 01/27/25 16:52 Q30M PRN maintain BP parameters with HR <60 Dextrose 250 mls @ 0 mls/hr 01/26/25 16:52 Dextrose 10%-Water IV .Q0M PRN HYPOGLYCEMIA Protocol As Directed Sodium Chloride 250 mls @ 15 mls/hr 01/26/25 18:14 IV .[id number] PRN Saline Flush Sodium Chloride 250 mls @ 15 mls/hr 01/26/25 18:14 IV .[id number] PRN Additional IVPB Infusion Insulin Glargine 7 unit 01/26/25 16:52 01/26/25 18:25 Insulin Glargine-Yfgn 100 Unit/Ml Pen SC Not Given Q24H ABDULLAHI Insulin Human Lispro 0 unit 01/26/25 16:52 01/27/25 06:42 Insulin Lispro 100 Unit/Ml Insuln.Pen SC 1 u ACHS ABDULLAHI Administration Protocol Labetalol HCl 10 - 20 mg 01/26/25 16:52 Labetalol 20 Mg/4 Ml Vial IV 01/27/25 16:52 Q10M PRN PRN maintain BP parameters with HR >/=60 Lorazepam 0.5 mg 01/26/25 16:52 01/27/25 09:42 Lorazepam 0.5 Mg Tablet PO 0.5 mg X1 PRN Administration Anxiety with MRI Melatonin 10 mg 01/26/25 16:52 Melatonin 3 Mg Tablet PO QHS PRN PRN INSOMNIA Ondansetron HCl 4 mg 01/26/25 16:52 Ondansetron 4 Mg/2 Ml Vial IV Q8H PRN PRN NAUSEA/VOMITING Oxycodone HCl 2.5 mg 01/26/25 16:52 Oxycodone 5 Mg Tablet PO Q4H PRN PRN Pain Score 4-10 Polyethylene Glycol 17 gm 01/26/25 22:00 Polyethylene Glycol 3350 17 Gm Packet PO BID PRN Constipation Sacubitril/Valsartan 1 each 01/26/25 22:00 01/27/25 09:06 Sacubitril/Valsartan 97-103 Mg Tablet PO Not Given BID ABDULLAHI Sodium Chloride 10 - 40 ml 01/26/25 18:14 01/27/25 09:35 0.9% Saline Lock 10 Ml Syringe IV 10 ml UD PRN Administration SALINE FLUSH NIHSS NIHSS Nursing Documentation NIHSS Nursing Documentation: NIHSS: Ischemic Stroke/TIA Start: 01/26/25 16:52 Text: For PCU Patients: NIH and Neuro Check every 4 Status: Active hours, PRN and with change in RN caregiver. Freq: [id number] Protocol: Activity Type Activity Date Activity User E-sign Co-sign Detail Recorded Client Recorded Date Recorded By Document 01/27/25 08:40 [id number] 01/27/25 08:47 01/27/25 08:40 NIH Stroke Scale [NIHSS] A score of 0 is normal or asymptomatic . Total possible score is 42. Inpatient: RN or Physician to activate a stroke alert for onset of new stroke symptoms or with NIHSS increase >/= 3 points. Following change in neurological status, NIHSS will be performed per physician order or more frequently PRN. -1a. Level of Consciousness 0 - Alert; keenly responsive -1b. LOC Questions 0 - Answers BOTH questions correctly -1c. LOC Commands 0 - Performs BOTH tasks correctly -2. Best Gaze 0 - Normal -3. Visual 0 - No visual loss -4. Facial Palsy 0 - Normal symmetrical movements -5a. Left Arm 0 - No drift; arm holds 90 ( or 45) degrees for full 10 seconds -5b. Right Arm 0 - No drift; arm holds 90 ( or 45) degrees for full 10 seconds -6a. Left Leg 0 - No drift; leg holds 30- degree position for full 5 seconds -6b. Right Leg 0 - No drift; leg holds 30- degree position for full 5 seconds -7. Limb Ataxia 0 - Absent -8. Sensory 0 - Normal; no sensory loss -9. Best Language 0 - No aphasia; normal -10. Dysarthria 0 - Normal -11. Extinction and Inattention 0 - No abnormality -Total 0 Query Text:A score of 0 is normal or asymptomatic. Total possible score is 42 . ED: Notify Physician for NIHSS increase by > / = 3 points. Inpatient: RN or Physician to activate a stroke alert for NIHSS increase of > / = 3 points. Coma Scale [Assess] -Eye Opening Spontaneous -Motor Obeys Commands -Verbal Oriented [Total] -Coma Scale Total 15
--- NOTE | 2025-01-27 13:59 | DCINST_ITS ---
Discharge Instructions DC O2, CPAP, BIPAP needs Home O2 Discharge instructions: No Dressing / Incision Discharge Activity: Return to Normal Activity Weight Bearing Status: Weight bearing as tolerated Dressing / Incision Call your doctor if you observe: Fever of 101 or Higher, Shortness of breath, Dizziness, Swelling in the ankles and Chest pain Follow Up Care Test Results: Test results from this visit will be discussed in further detail at your follow- up appointment, if applicable. Discharge Plan Admission Admit Date/Time: 01/26/25 15:07 Primary Reason for Your Visit: TIA, migraine Attending Provider: Sidra Irving Primary Care Provider: Sarah Toth [facility] Consulting Providers: Cesar Parekh; Merlyn Hardy; Annita Barba; Samra Samano; Maude Anderson; Ferdinand Cruz; Tati Hardwick; Sunny Connelly; Adarsh Chacon; Arturo Fuller; Sherley Rodriguez; Shaka Lerner; Mary Zuñiga; Serjio Nice; Isabela Alaniz; Dwight Taylor; Joleen Spangler; Modesto Clements; Zaria Esteban; Rand Chamberlain; Dahiana Oakley Instructions Patient Instructions: Migraine Headaches Ch Discharge Orders/Prescriptions Prescriptions: Continued Slow-Mag 71.5 mg tablet,delayed release (DR/EC) 71.5 mg PO DAILY Entresto 97-103 mg tablet 1 tab PO BID Qty: 180 3RF aspirin 81 MG tablet 81 mg PO DAILY@0800 Patient Comments: [facility] amlodipine 10 mg tablet 10 mg PO DAILY cholecalciferol (vitamin D3) 1,250 mcg (50,000 unit) capsule 1,250 mcg PO QWEEK carvedilol 25 mg tablet 25 mg PO DAILY Rx Instructions: must administer with a meal/food insulin degludec [Tresiba FlexTouch U-100] 100 unit/mL (3 mL) insulin pen 7 unit subcut Q24H gabapentin 600 mg tablet 600 mg PO DAILY Rx Instructions: AM gabapentin 800 mg tablet 800 mg PO QHS dapagliflozin propanediol [Farxiga] 10 mg tablet 10 mg PO DAILY insulin lispro [Humalog KwikPen Insulin] 100 unit/mL insulin pen 10 unit subcut TID (DME) Handicap Parking Placard See Rx Instructions .Route .MEDSUPPLY Qty: 1 0RF Rx Instructions: As directed furosemide 20 mg tablet 20 mg PO QDAY Qty: 90 3RF Mounjaro 5 mg/0.5 mL pen injector 5 mg subcut QWEEK Qty: 2 3RF Referrals / Follow Up: Sarah Toth, [facility] [Primary Care Provider] - Within 1 Week Disposition Disposition (needs filled in before D/C Order can be placed): Home, Self Care
--- NOTE | 2025-01-27 13:59 | PCM.DC.SUM ---
Providers Date of Admission: 01/26/25 Date of Discharge: 01/27/25 Primary Care Physician: ARIA Long, [facility] Consultations 01/26/25 16:52 Consult: Tele-Neurology Routine Consulting Provider: [facility] Reason for Consult: TIA rule out, episode of transient confusion yesterday EMERGENT Consult: No MD Notified: Yes Date Notified: 01/26/25 Time Notified: 17:29 Method of Notification: Answering Service Reason For Visit: TIZ RULE OUT Diagnosis Discharge Diagnosis (1) Confusion: Status: Acute Code(s): R41.0 - Disorientation, unspecified Medications at Discharge Home Medications aspirin 81 mg tablet,delayed release 81 mg PO DAILY@0800 HEALTH MAINTENANCE 01/26/17 magnesium chloride 71.5 mg (magnesium chloride) tablet,delayed release (Slow-Mag) 71.5 mg PO DAILY suppliment 07/23/20 Handicap Parking Placard #1 ea 05/09/22 sacubitril 97 mg-valsartan 103 mg tablet (Entresto) 1 tab PO BID HF #180 tabs 11/04/24 furosemide 20 mg tablet 20 mg PO QDAY water pill #90 tabs 11/17/24 amlodipine 10 mg tablet 10 mg PO DAILY 11/30/24 carvedilol 25 mg tablet 25 mg PO DAILY 11/30/24 cholecalciferol (vitamin D3) 1,250 mcg (50,000 unit) capsule 1,250 mcg PO QWEEK 11/30/24 insulin degludec 100 unit/mL (3 mL) subcutaneous pen (Tresiba FlexTouch U-100 insulin) 7 unit subcut Q24H diabetes 11/30/24 tirzepatide 5 mg/0.5 mL subcutaneous pen injector (Mounjaro) 5 mg (0.5 mL) subcut QWEEK #2 mL 12/29/24 dapagliflozin propanediol 10 mg tablet (Farxiga) 10 mg PO DAILY 01/26/25 gabapentin 600 mg tablet 600 mg PO DAILY 01/26/25 gabapentin 800 mg tablet 800 mg PO QHS 01/26/25 insulin lispro 100 unit/mL subcutaneous pen (Humalog KwikPen (U-100) Insulin) 10 unit subcut TID 01/26/25 Hospital Course Operations None Summary of Care Provided Minutes Spent on Discharge: 45 Hospital Course: Patient is a 69-year-old female with past medical history as outlined was admitted through the ED on 01/26/2025 with a complaint of transient episode of confusion. She says she was at her [id number]'s house and took a nap and when she woke up she was confused and did not know where she was aware. This lasted for just about 5 minutes. She had been to her she had retinopathy of the right eye for several weeks prior to admission. She went to see a specialist but there was concern that her confusion could be due to a stroke so she was sent to the ED to rule out a stroke. CT of the brain was negative for any evidence of stroke. Neurology reviewed her recommended MRI. She had MRI of the brain which also showed no acute ischemic pathology and no acute intracranial pathology. Neurology felt her symptoms might be related to a migraine headache and was likely benign and recommended using her headache cocktail of ketorolac, metoclopramide or Zofran or Compazine and Benadryl as well as magnesium sulfate if needed. However patient's headache did not really recur and she felt much better. She had had a 2D echo on 01/19/2025 so this was not repeated. She remained stable and was discharged on 01/27/2025. She is follow-up with her primary care doctor within 1 to 2 weeks. Patient seen and examined prior to discharge. As well as by her bedside. She had no complaints and had an uneventful night. Review of systems otherwise negative. Labs and vitals reviewed. Medication reviewed and reconciled. Physical Exam Const alert and oriented x3 Constitutional Narrative: class III obesity General Appearance: cooperative and comfortable Exam Limitations: no limitations HEENT normocephalic, head/scalp atraumatic and hearing grossly normal bilaterally Mouth: oral and palatal mucosa normal Eyes EOMs intact bilaterally and conjunctivae normal Neck supple Resp normal respiratory effort, no use of accessory muscles and clear to auscultation bilaterally Cardio regular rate, regular rhythm, S1 normal heart sound, S2 normal heart sound and no murmurs GI normal to inspection, nondistended, normoactive bowel sounds, soft to palpation, non-tender and non-distended Extremity normal to inspection and full ROM Skin no rashes or lesions noted Neuro oriented x3, moves all extremities, no focal motor deficits and no sensory deficits noted Sensorium / Orientation: awake and alert Motor Exam: strength 5/5 throughout Psych affect normal Weight / BMI Weight Weight: 261 lb 11.019 oz Body Mass Index (BMI) 44.9 ABG / Lab / Microbiology Data 01/27/25 05:04 01/27/25 05:04 Laboratory: Laboratory Results - last 24 hr 01/26/25 12:22: WBC 6.0, RBC 4.57, Hgb 13.2, Hct 40.8, MCV 89.3, MCH 28.9, MCHC 32.4, RDW Std Deviation 42.8, RDW Coeff of Ivet 13.2, Plt Count 278, MPV 9.5, Immature Gran % (Auto) 0.500, Neut % (Auto) 47.9, Lymph % (Auto) 39.4, Branch % (Auto) 9.0, Eos % (Auto) 2.7, Baso % (Auto) 0.5, Absolute Neuts (auto) 2.9, Absolute Lymphs (auto) 2.36, Nucleated RBC % 0, PT 14.0, INR 1.1, Troponin T High Sens 15 H D 01/26/25 15:25: Troponin T Hi Sens 2 Hr 14 01/26/25 16:48: Troponin T Hi Sens 4Hr 11 01/26/25 18:24: POC Glucose 113 H 01/26/25 20:35: POC Glucose 153 H 01/27/25 05:04: WBC 5.4, RBC 4.44, Hgb 12.8, Hct 39.0, MCV 87.8, MCH 28.8, MCHC 32.8, RDW Std Deviation 42.6, RDW Coeff of Ievt 13.3, Plt Count 265, MPV 9.2, Immature Gran % (Auto) 0.600, Neut % (Auto) 53.5, Lymph % (Auto) 34.6, Branch % (Auto) 7.1, Eos % (Auto) 3.6, Baso % (Auto) 0.6, Absolute Neuts (auto) 2.9, Absolute Lymphs (auto) 1.85, Nucleated RBC % 0, Sodium 138, Potassium 4.3, Chloride 105, Carbon Dioxide 20.2 L, Anion Gap 13, BUN 22 H, Creatinine 1.17, Estim Creat Clear Calc 55.91, Est GFR (MDRD) Non-Af 50 L, BUN/Creatinine Ratio 18.9, Glucose 152 H, Hemoglobin A1c 8.1 H, Calcium 8.6, Triglycerides 218 H, Cholesterol 220 H, LDL Cholesterol, Calc 133, VLDL Cholesterol 44 H, HDL Cholesterol 43, Cholesterol/HDL Ratio 5.10, TSH 3.260 01/27/25 06:39: POC Glucose 152 H 01/27/25 11:42: POC Glucose 158 H Radiography Diagnostic Testing: Radiology Impression Brain CT 01/26/25 12:27 IMPRESSION: 1. No evidence of intracranial hemorrhage or acute ischemia. 2. Changes of chronic microvascular ischemia and volume loss. Reading Location: [id number] Head/Neck CTA 01/26/25 12:27 IMPRESSION: Minimal plaque formation at the origin of the right and left internal carotid arteries causing minimal narrowing. Reading Location: [facility] Brain MRI 01/27/25 15:31 IMPRESSION: No evidence of acute ischemia. Chronic microvascular ischemic changes, mild volume loss. Reading Location: [id number] D/C Instructions Discharge Activity: Return to Normal Activity Weight Bearing Status: Weight bearing as tolerated Call your doctor if you observe: Fever of 101 or Higher, Shortness of breath, Dizziness, Swelling in the ankles and Chest pain DC O2, CPAP, BIPAP Needs Home O2 Discharge instructions: No Meaningful Use Info Meaningful Use Meaningful Use Diagnoses (Choose all that apply): None applicable Discharge Plan Admission Admit Date/Time: 01/26/25 15:07 Primary Reason for Your Visit: TIA, migraine Attending Provider: Sidra Irving Primary Care Provider: Sarah Toth [facility] Consulting Providers: Cesar Parekh; Merlyn Hardy; Annita Barba; Samra Samano; Maude Anderson; Ferdinand Cruz; Tati Hardwick; Sunny Connelly; Adarsh Chacon; Arturo Fuller; Sherley Rodriguez; Shaka Lerner; Mary Zuñiga; Serjio Nice; Isabela Alaniz; Dwight Taylor; Joleen Spangler; Modesto Clements; Zaria Esteban; Rand Chamberlain; Dahiana Oakley Instructions Patient Instructions: Migraine Headaches Ch Discharge Orders/Prescriptions Prescriptions: Continued Slow-Mag 71.5 mg tablet,delayed release (DR/EC) 71.5 mg PO DAILY Entresto 97-103 mg tablet 1 tab PO BID Qty: 180 3RF aspirin 81 MG tablet 81 mg PO DAILY@0800 Patient Comments: HEART HEALTH amlodipine 10 mg tablet 10 mg PO DAILY cholecalciferol (vitamin D3) 1,250 mcg (50,000 unit) capsule 1,250 mcg PO QWEEK carvedilol 25 mg tablet 25 mg PO DAILY Rx Instructions: must administer with a meal/food insulin degludec [Tresiba FlexTouch U-100] 100 unit/mL (3 mL) insulin pen 7 unit subcut Q24H gabapentin 600 mg tablet 600 mg PO DAILY Rx Instructions: AM gabapentin 800 mg tablet 800 mg PO QHS dapagliflozin propanediol [Farxiga] 10 mg tablet 10 mg PO DAILY insulin lispro [Humalog KwikPen Insulin] 100 unit/mL insulin pen 10 unit subcut TID (DME) Handicap Parking Placard See Rx Instructions .Route .MEDSUPPLY Qty: 1 0RF Rx Instructions: As directed furosemide 20 mg tablet 20 mg PO QDAY Qty: 90 3RF Mounjaro 5 mg/0.5 mL pen injector 5 mg subcut QWEEK Qty: 2 3RF Referrals / Follow Up: Sarah Toth Chele, [facility] [Primary Care Provider] - Within 1 Week Disposition Disposition (needs filled in before D/C Order can be placed): Home, Self Care Charges/Coding Visit Charges Inpatient E&M: 22569 Disch Hosp >30min
--- NOTE | 2025-01-27 14:36 | CASEMGMT ---
Patient has order for discharge. RN CM in to discuss needs at discharge, at bedside. Patient denies needs or help at discharge. Patient and had no further questions or concerns.
--- NOTE | 2025-01-27 15:31 | MRI_ITS ---
PROCEDURE: BRAIN WITHOUT CONTRAST 01/27/2025 REASON FOR EXAM: TRANSIENT CONFUSION, TIA RULE OUT TECHNIQUE: BRAIN WITHOUT CONTRAST Multiplanar and multisequence images were obtained. COMPARISON: January 26, 2025 FINDINGS: Brain: T2 prolongation is seen in the periventricular white matter along with patchy areas of T2 prolongation in the subcortical and deep white matter of both the frontal and parietal lobes. Prominent perivascular space right basal ganglia. Tiny lacunar infarct left thalamus and central jessa. Blooming artifact from hemosiderin in the lentiform nuclei. No evidence of restricted diffusion to suggest acute ischemia at this time. Ventricles: Mild volume loss. No hydrocephalus. Major Intracranial Vessels: Flow voids are unremarkable. Correlate with CT angiogram of 1 day prior. Sinuses: Clear Mastoids: Clear Right lens implant. MRI/Brain without Contrast IMPRESSION: No evidence of acute ischemia. Chronic microvascular ischemic changes, mild volume loss. Reading Location: [id number]
== END 2025-01-27 15:17 | disposition home or self-care (01) ==
LOC: ED 14:54 → PCU 15:17
PROVIDERS: Admitting Provider Internal Medicine; Emergency Provider Student in an Organized Health Care Education/Training Program; PCP Nurse Practitioner Family; Visit Provider Student in an Organized Health Care Education/Training Program
DX: R41.0 Disorientation, unspecified (principal); I11.0 Hypertensive heart disease with heart failure; I50.23 Acute on chronic systolic (congestive) heart failure; E11.319 Type 2 diabetes mellitus with unspecified diabetic retinopathy without macular edema; R51.9 Headache, unspecified; Z79.84 Long term (current) use of oral hypoglycemic drugs; G47.30 Sleep apnea, unspecified; Z87.891 Personal history of nicotine dependence; Z90.710 Acquired absence of both cervix and uterus; Z79.85 Long-term (current) use of injectable non-insulin antidiabetic drugs; E78.5 Hyperlipidemia, unspecified; Z79.899 Other long term (current) drug therapy; I25.10 Atherosclerotic heart disease of native coronary artery without angina pectoris; H35.00 Unspecified background retinopathy; G47.33 Obstructive sleep apnea (adult) (pediatric); Z95.810 Presence of automatic (implantable) cardiac defibrillator; F32.A Depression, unspecified; F41.9 Anxiety disorder, unspecified; Z91.199 Patient's noncompliance with other medical treatment and regimen due to unspecified reason; Z79.82 Long term (current) use of aspirin
CPT/HCPCS: 36415; 70450; 70496; 70498; 70551; 80048; 80061; 82962; 83036; 84443; 84484; 85025; 85610; 93005; 94762; 96360; 96361; 97161; 99221; 99284; Q9967; A4216; G0378

== ENCOUNTER → 2025-04-22 | Outpatient (CLI) | payer MEDICARE, SELFPAY ==
--- NOTE | 2025-04-22 13:27 | BD_ITS ---
PROCEDURE: DEXA BONE DENSITY STUDY 04/22/2025 REASON FOR EXAM: POST MENOPAUSAL SYNDROME F, age 69 y/o . Postmenopausal. TECHNIQUE: Procedure Code: BDDBD Modality: DX Procedure: DEXA BONE DENSITY STUDY COMPARISON: May 06, 2019. FINDINGS: BMD and T-SCORES Lumbar spine: 1.024 g/cm2, T-score -0.2 Levels: L1 through L4 Change from prior: Improvement of 8.5%. Left femoral neck: 0.871 g/cm2, T-score 0.2 Femoral neck comparison data not recommended for monitoring change. Left total hip: 1.208 g/cm2, T-score 2.2 Change from prior: Improvement of 2.1%. Right femoral neck: 0.996 g/cm2, T-score 1.3 Femoral neck comparison data not recommended for monitoring change. Right total hip: 1.110 g/cm2, T-score 1.4 Change from prior: Loss of 4.7%. The World Health Organization has defined the following categories based on bone density: Normal bone density: T-score equal to or greater than -1.0 Osteopenia: T-score between -1.0 and -2.5 Osteoporosis: T-score equal to or less than -2.5 FRAX (or Comparable) Fracture Risk Assessment: 10 Year Probability of Fracture: Major Osteoporotic Fracture: 9.9% Hip Fracture: 0.5% (Note: FRAX is not to be reported in setting of normal range bone density, osteoporosis on DEXA, known history of osteoporosis, prior osteoporotic hip or vertebral fracture, or for any patient undergoing pharmacological treatment for bone loss.) The National Osteoporosis Foundation (NOF) recommends pharmacological treatment for patients with a FRAX 10-year risk of 3% or higher for a hip fracture, or 20% or higher for a major osteoporotic fracture, to prevent osteoporosis and reduce fracture risk. The patient does not meet the pharmacological treatment recommendations for prevention of osteoporosis. BD/Dexa Bone Density Study IMPRESSION: NORMAL T-SCORES. Recommend follow-up as clinically warranted. Reading Location: [place] [id number]
== END | disposition home or self-care (01) ==
PROVIDERS: PCP Nurse Practitioner Family; Referring Provider Nurse Practitioner Family; Visit Provider Nurse Practitioner Family
DX: Z78.0 Asymptomatic menopausal state (principal)
CPT/HCPCS: 77080

== ENCOUNTER → 2025-04-22 | Outpatient (CLI) | payer MEDICARE, SELFPAY ==
--- NOTE | 2025-04-22 14:06 | RAD_ITS ---
PROCEDURE: HIP MIN 2 VIEWS (PORTABLE) 04/22/2025 REASON FOR EXAM: HIP PAIN TECHNIQUE: Procedure Code: RADH_P Modality: DX Procedure: HIP MIN 2 VIEWS (PORTABLE) Laterality: Right COMPARISON: October 20, 2020 FINDINGS: Bones: No fracture. Joints: Normal alignment. Joint spaces are preserved. No arthropathic features. Soft tissues: Calcified phleboliths. Other: RAD/Hip Min 2 Views (Portable) IMPRESSION: No acute abnormality is seen. Reading Location: [facility]
--- OUTSIDE RECORDS SUMMARY | 2025-04-22 18:58 | XMS RPT_ITS | CCD ---
Author Organization [facility] ion [facility] Care Team Providers Care Voltage Inspector Name Role Phone Kenna BARRIOS, Kaye Hernadez Unavailable [phone] RiveraAaliyah west Unavailable Unavailable Rivera, Aaliyah Unavailable Unavailable Rivera Aaliyah Unavailable Unavailable VITEBSKIY, NAHOMY Referring Unavailable [...] Aaliyah Unavailable Unavailable Ovi Olivares MD Unavailable [phone] Shante Parada Primary Care Provider [phone] Kristen Harrison CNP (Historical) Unavailable [facility], [facility] Primary Care Pro vider [facility] Referring Provid er EVENS Bridges Attending Provider Dr. Nathanael Corrales Attending Provider [phone] Bert SNIDER, HUMAN RESOURCES MANAGER MANUFACTURING-C Lico Attending Provider Rachel Field Attending Provider Unavailable Navneet SNIDER, HUMAN RESOURCES MANAGER MANUFACTURING-C Sarah Primary Care Provider Ovi Olivares MD Unavailable Shante Parada Primary Care Provider Harrison PIZZAMAKER, Kristen (Historical) Unavailable U [facility], Genie Chambers Primary Care Pro vider [facility], Genie Chambers Referring Provid er EVENS Bridges Attending Provider Bert HUMAN RESOURCES MANAGER MANUFACTURINGAGATHA-Chele Beckham Attending Provider [facility], Genie Gutierrezessie Primary Care Pro vider [facility], Genie Solanoottonielessie Referring Provid er Bert HUMAN RESOURCES MANAGER MANUFACTURING, HUMAN RESOURCES MANAGER MANUFACTURINGVicenteC Lico Attending Provider EVENS Bridges Attending Provider Swihart, [...] Unavailable QUINTANA, HONORIO D Attending Unavailable Navneet HUMAN RESOURCES MANAGER MANUFACTURING-C, Sarah Primary Care Provider Navneet HUMAN RESOURCES MANAGER MANUFACTURING-C, Sarah Attending Provider Navneet HUMAN RESOURCES MANAGER MANUFACTURING-C, Sarah Referring Provider Kaye Willoughby Attending Provider [phone] Dr. Misbah Marcum MD Attending Provider [phone] Dr. Misbah Marcum MD Referring Provider [phone] Lavonne Mccollum Attending Provider Navneet HUMAN RESOURCES MANAGER MANUFACTURING-C, Sarah Primary Care Provider Dr. Misbah Marcum MD Attending Provider [phone] Jossue MD, Dr. Oxnard Referring Provider Navneet HUMAN RESOURCES MANAGER MANUFACTURING-C, Sarah Attending Provider Navneet HUMAN RESOURCES MANAGER MANUFACTURING-C, Sarah Referring Provider Cyrus HUMAN RESOURCES MANAGER MANUFACTURING-C, Lavonne Attending Provider Erlin HASSAN, Dr. Jauregui Emergency Provider Erlin HASSAN, Dr. Jauregui Attending Provider Elisabeth MONTGOMERY, Dr. Wilkerson Emergency Provider Elisabeth MONTGOMERY, Dr. Wilkerson Attending Provider Bert HUMAN RESOURCES MANAGER MANUFACTURING-C, Lico Attending Provider Lidia HASSAN, Dr. Locke Emergency Provider Unavailab elisa Oakley MD, Dr. Talbot Admit Provider Adin HASSAN, Dr. Talbot Attending Provider Adin HASSAN, Dr. Talbot Other Provider Iglesia HASSAN, Cesar Other Provider Unavailable Hayley HASSAN, Dr. Zuleta Other Provider [phone] Annita Barba MD Other Provider Unavailable Dr. Samra Samano DO Other Provider Monica HASSAN, Dr. Santoro Other Provider [phone] Anthony HASSAN, Dr. Streeter Other Provider Ronen HASSAN, Dr. Duffy Other Provider [phone] Dr. Sunny Connelly MD Other Provider [phone] Dr. Keila Chacon MD Other Provider Jonny HASSAN, Dr. Morris Other Provider [phone] Sherley Rodriguez MD Other Provider Yann HASSAN, Dr. Matt Other Provider Yogesh HASSAN, Dr. Hernandez Other Provider Arlet HASSAN, Dr. Bassett Other Provider Dr. Isabela Alaniz MD Other Provider Brandon HASSAN, Dr. Quintanilla Other Provider Aníbal HASSAN, Dr. Goodrich Other Provider [phone] Tyree HASSAN, Dr. Salvador Other Provider Carlito HASSAN, Dr. Enciso Other Provider Unavailable Cintia HASSAN, Rand Other Provider Unavailable Maria Fernanda HASSAN, Dr. Sidra Nickerson Attending Provider Rachel Field Attending Provider Unavailable Maria Fernanda HASSAN, Dr. Sidra Nickerson Other Provider Navneet HUMAN RESOURCES MANAGER MANUFACTURING-C, Sarah Primary Care Provider Jossue HASSAN, Dr. Crawley Attending Provider Jossue HASSAN, Dr. Crawley Referring Provider [phone] [facility], Sarah Attending Unavailabl e Navneet VSC, Sarah Primary Care Unavailabl e Navneet VSC, Sarah Primary Care Unavailabl Lavonne Esparza Referring Unavailable Lavonne Bridges Attending Unavailable Navneet C, Sarah Primary Care Unavailaida e Dahiana Oakley Admitting Unavailable Sidra Irving Attending Unavailable Cesar Parekh Consulting Unavailable Adeli, Amir Consulting Unavailable Hinduja, Annita Consulting Unavailable Selwyn, Samra Consulting Unavailable Zha, Maude Consulting Unavailable Anthony, Ferdinand Consulting Unavailable RonenTati ga Consulting Unavailable Sunny Connelly Consulting Unavailable Keila Chacon Consulting Unavailable Arturo Fuller Consulting Unavailable Sherley Rodriguez Consulting Unavailable Shaka Lerner Consulting Unavailable Mary Zuñiga Consulting Unavailable Serjio Nice Consulting Unavailable Isabela Alaniz Consulting UnavailDwight Oliva Consulting Unavailable Joleen Spangler Consulting Unavailable Modesto Clements Consulting Unavailable Zaria Esteban Consulting Unavailable Rand Chamberlain Consulting Unavailable Dahiana Oakley Consulting Unavailable Navneet VSC, Sarah Primary Care Unavailabl Misbah Scales Referring Unavailable Misbah Marcum Attending Unavailable Navneet VSC, Sarah Attending Unavailabl e Navneet VSC, Sarah Primary Care Unavailabl e Navneet VSC, Sarah Referring Unavailabl e Navneet VSC, Sarah Primary Care Unavailabl e Kern, Juventino Attending Unavailable Navneet VSC, Sarah Primary Care Unavailabl e Jossue, Oxnard Attending Unavailable Jossue, Misbah Referring Unavailable Navneet [facility], Sarah Primary Care Unavailabl e Navneet C, Sarah Referring Unavailabl e Kaye Burris Attending Unavailabl e Navneet VSC, Sarah Primary Care Unavailabl e Jossue, [place] Referring Unavailable Jossue, Misbah Attending Unavailable Navneet C, Sarah Primary Care Unavailabl e Navneet VSC, Sarah Referring Unavailabl e Lavonne Bridges Attending Unavailable Navneet C, Sarah Primary Care Unavailabl e Jossue, [place] Attending Unavailable Jossue, Misbah Referring Unavailable Navneet VSC, Sarah Referring Unavailabl e Navneet VSC, Sarah Primary Care Unavailabl e Jossue, Misbah Attending Unavailable [facility], Sarah Primary Care Unavailabl e Cesar Parekh Consulting Unavailable Dahiana Oakley Admitting Unavailable Maria Fernanda, Sidra Liya Attending Unavailable AdeReta garciar Consulting Unavailable Hinduchelsea, Annita Consulting Unavailable Selwyn Samra Consulting Unavailable Zha, Maude Consulting Unavailable Anthony, Ferdinand Consulting Unavailable Ronen, Tati Consulting Unavailable Bittar, Sunny Consulting Unavailable Keila Chacon Consulting Unavailable Arturo Fuller Consulting Unavailable Sherley Rodriguez Consulting Unavailable Shaka Lerner Consulting Unavailable Mary Zuñiga Consulting Unavailable Serjio Nice Consulting Unavailable Isabela Alaniz Consulting Unavailaida e Dwight Taylor Consulting Unavailable Spangler, Rami Consulting Unavailable Елена Clementshil Consulting Unavailable Zaria Esteban Consulting Unavailable Rand Chamberlain Consulting Unavailable Dahiana Oakley Consulting Unavailable Maria Fernanda Sidra Liya Consulting Unavailable Dahiana Oakley Attending Unavailable [facility], Sarah Primary Care Unavailabl e Jossue, [place] Attending Unavailable [facility], [facility] Primary Care Unavailable Jossue, Misbah Attending [facility] Referring Unavailable [facility], [facility] Primary Care Unavailabl e Lico Noel NP Attending Unavailable Navneet [facility], Sarah Referring Unavailabl e Lavonne Bridges Attending Unavailable Navneet C, Sarah Primary Care Unavailabl e Navneet VSC, Sarah Primary Care Unavailabl e Jossue, [place] Referring Unavailable Jossue, Misbah Attending Unavailable [facility], [facility] Unavailabl e Jossue, Misbah Referring Unavailable Jossue, [place]nard Attending Unavailable [facility], [facility] Primary Care Unavailabl e [facility], [facility] Referring Unavailabl e Cyrus, Lavonne Attending Unavailable [facility], [facility] Primary Care Unavailabl e [facility], [facility] Referring Unavailabl e Cyrus, Lavonne Attending Unavailable [facility], [facility] Care Unavailabl e Jossue, Oxnard Attending Unavailable Jossue, [place]nard Referring Unavailable [facility], [facility] Primary Care Unavailabl e Jossue, [place] Attending Unavailable [facility], [facility] Care Unavailabl e Ungur, Remus Attending Unavailable Allergies Allergy Classification Reported Allergen(s) Allergy Type Date of Onset Reaction(s) Facility (20 sources) Contrast media; Translations: [RED DYE] drug allergy 5 Unknown [facility] Work Phone: (5 sources) Hmg-Coa Reductase Inhibitors (Statins) drug allergy 6 mylagias [facility] Work Phone: (5 sources) Hmg-Coa Reductase Inhibitors (Statins); Translations: [[id number] REDUCTASE INHIBITORS] Propensity to adverse reactions (disorder) 8 Myalgia [facility] Repository (18 sources) Fhejhql-Peu-Zcg Reductase Inhibitor Propensity to adverse reactions 2 Myalgias [facility] (3 sources) semaglutide Drug Allergy 5 Vomiting [facility] (1 source) Hvqsehc-Lll-Chk Reductase Inhibitor Drug allergy (disorder) 5 [facility] Repository (1 source) semaglutide Drug allergy (disorder) 5 [facility] Repository Medications Current Medications Medication Drug [...] TABS One tablet by mouth daily ASPIRIN [id number] Kaye Burris PA-C Start: 06-10-2015 take 1 tablet by margaret th once daily ASPIRIN 81 MG TABS One tablet by mouth daily ASPIRIN [id number] Kaye Burris PA-C Start: 05-27-2015 End: 01-26-2017 [...] One tablet by mouth twice daily CARVEDILOL [id number] Kaye Burris PA-C Start: 06-10-2015 take 1 tablet by margaret th twice daily COREG 25 MG TABS One tablet by mouth twice daily CARVEDILOL [id number] Kaye Burris PA-C Start: 06-10-2015 take 2 tablets by mo cox monett twice daily COREG 25 MG TABS Two tablets by mouth twice daily CARVEDILOL [id number] Grace Horan RN Start: 05-27-2015 End: 01-12-2016 take 1 tablet by mouth twice daily Carvedilol 3.125 MG tablet Discontinued 3.125 mg PO TWICE A DAY 60 0 May 27, 2015 1:00am January 12, 2016 5:03pm Comment on above: Take 1 tablet by margaret twice daily. cholecalciferol 1.25 mg oral capsule (20 sources) Vitamin D Start: 12-01-19 take 1 capsule by mouth every week Cholecalciferol (Vitamin D3) 1,250 mcg (50,000 unit) capsule Active 1250 ug PO EVERY WEEK November 30, 2024 12:00am Start: 08-16-2020 take 1 capsule by mo uth every week cholecalciferol, Vitamin D3, (VITAMIN D3) [...] once daily. Take 1 capsule by mo cox monett one time a week. CPAP (3 sources) CPAP dapagliflozin 10 mg oral tablet (20 sources) Sodium-Glucose Cotransporter 2 Inhibitor Start: 12-01-19 End: 01-27-20 take 1 tablet by mouth once daily Dapagliflozin Propanediol (Farxiga) 10 mg tablet Active 10 mg PO DAILY January 26, 2025 12:00am Start: 02-17-2024 End: 10-23-2024 take 1 [...] Comment on above: Take by mouth. gabapentin 600 mg oral tablet (20 sources) Anti-epileptic Agent Start: 01-27-20 take 1 tablet by mouth once daily Gabapentin 600 mg tablet Active 600 mg PO DAILY January 26, 2025 12:00am AM Start: 01-26-2025 take 1 tablet by margaret at bedtime Gabapentin 800 mg tablet Active 800 mg PO AT BEDTIME January 26, 2025 12:00am Start: 11-30-2024 End: 01-26-2025 take 2 capsules by mouth at bedtime Gabapentin 300 mg capsule Discontinued 600 mg PO AT BEDTIME November 30, 2024 12:00am January 26, 2025 11:36am Start: 10-23-2024 End: 01-26-2025 take 1 capsule by mouth once daily Gabapentin 300 mg capsule Discontinued 300 mg PO DAILY October 23, 2024 1:58pm January 26, 2025 11:36am NERVE PAIN AM Start: 10-23-2024 take 1 capsule by mo cox monett three times daily Gabapentin 300 mg capsule [...] tablet by mouth daily at bedtime GABAPENTIN [id number] Kristen Sandy RN Comment on above: Take 300 mg by mouth once daily. 3 ml insulin degludec 100 unt/ml pen injector (13 sources) Insulin Analog Start: inject 15 [IU] by subcutaneous injection once daily TRESIBA FLEXTOUCH U-100 100 unit/mL (3 mL) injection pen INJECT 15 UNITS SUBCUTANEOUSLY ONCE DAILY 0 10/21/2023 Active Start: 10-04-2023 End: 12-31-2023 Insulin Degludec (Tresiba Fl extouch U-100) 100 unit/mL (3 mL) insulin pen Discontinued 15 U SC DAILY 15 October 04, 2023 12:00am December 31, 2023 10:42am Insulin Degludec (Tresiba Flextouch U-100) 100 unit/mL (3 mL) insulin pen (20 sources) Start: 11-30-2024 Insulin Deglud ec (Tresiba Flextouch U-100) 100 unit/mL (3 mL) insulin pen Active 7 U SC Q24H November 30, 2024 12:00am [...] insulin pen Discontinued 18 U SC .hs February 18, 2024 12:00am April 21, 2024 9:12am diabetes Start: 02-18-2024 End: 04-21-2024 Insulin Degludec (Tresiba Fl extouch U-100) 100 unit/mL (3 mL) insulin pen Discontinued 18 U SC .hs February 18, 2024 12:00am April 21, 2024 [...] IT/ML SOLN Take as directed INSULIN DETEMIR [id number] Stewart Boggs MD Start: 10-22-2015 LEVEMIR 100 UN IT/ML SOLN Take as directed INSULIN DETEMIR [id number] Stewart Boggs MD Start: 10-22-2015 LEVEMIR 100 UN IT/ML SOLN Take as directed INSULIN DETEMIR [id number] Stewart Boggs MD Start: 10-22-2015 LEVEMIR 100 UN IT/ML SOLN Take as directed INSULIN DETEMIR [id number] Stewart Boggs MD Start: 05-27-2015 End: 01-12-2016 [...] ml insulin lispro 100 unt/ml pen injector (15 sources) Insulin Analog Start: 01-26-2025 Insulin Lispro (Humalog Kwikpen Insulin) 100 unit/mL insulin pen Active 10 U SC THREE TIMES A DAY January 26, 2025 12:00am Start: 10-31-2024 End: 01-26-2025 Insulin Lispro (Humalog Kwik pen Insulin) 100 unit/mL insulin pen Discontinued 15 U SC THREE TIMES A DAY 54 2 October 31, 2024 12:00am January 26, 2025 11:56am liraglutide (3 sources) GLP-1 Receptor Agonist liraglutide [...] Take 1 tablet by margaret once daily. OZEMPIC 2 mg/dose (8 mg/3 mL) pen injector (1 source) Start: 05-17-2023 OZEMPIC 2 mg/dose (8 mg/3 mL) pen injector phenylephrine hydrochloride 25 mg/ml ophthalmic solution (2 sources) alpha-1 Adrenergic Agonist Start: 11-27-2023 End: 11-28-2023 PHENYLephrine 2.5 % 1 Drop (AK-DILATE, JOVON-SYNEPHRINE) Tirzepatide (Mounjaro) 5 mg/0.5 mL pen injector (7 sources) Start: 12-29-2024 Tirzepatide (Mounjaro) 5 mg/0.5 mL pen injector Active 5 mg SC EVERY WEEK 2 December 29, 2024 12:00am Type 2 diabetes mellitus Type 2 diabetes mellitus with diabetic chronic kidney disease tropicamide 10 mg/ml ophthalmic solution (2 sources) Anticholinergic Start: 11-27-2023 End: 11-28-2023 tropicamide 1 % 1 Drop (MYDRIACYL) Completed/Discontinued Medications Medication Drug Class(es) Dates Sig (Normalized) Sig (Original) acetaminophen 325 mg / HYDROcodone bitartrate 5 mg oral tablet (20 sources) Opioid Agonist Start: 09-13-2023 End: 02-18-2024 [...] 20, 2017 1:00am October 01, 2017 10:27am [id number] 200 actuat albuterol 0.09 mg/actuat metered dose inhaler (5 sources) beta2-Adrenergic Agonist Start: 01-26-2025 End: 01-26-2025 Albuterol Sulfate 90 mcg/actuation HFA aerosol inhaler Discontinued 2 NMA INHALATION EVERY 4 HOURS NEEDED as needed for dyspnea January 26, 2025 12:00am January 26, 2025 11:55am atorvastatin 40 mg oral tablet (5 sources) HMG-CoA Reductase Inhibitor Start: 06-10-2015 take 1 tablet by mouth once daily ATORVASTATIN CALCIUM 40 MG TABS One tablet by mouth daily ATORVASTATIN CALCIUM [id number] Kaye Burris PA-C 24 hr buPROPion hydrochloride 150 mg extended release oral tablet (20 sources) Aminoketone Start: 07-23-2020 End: 12-31-2023 take 1 tablet by mouth once daily in the morning Bupropion Hcl 150 mg tablet extended release 24 hr Discontinued 150 mg PO EVERY MORNING July 23, 2020 1:00am December 31, 2023 10:39am Comment on above: Take 150 mg by mouth every morning. busPIRone hydrochloride 7.5 mg oral tablet (12 sources) Start: 03-13-2024 End: 11-30-2024 take 1 [...] tablet by mouth daily MAGNESIUM CL-CALCIUM CARBONATE [id number] Kristen Sandy RN Start: 01-17-2016 take 1 tablet by margaret th once daily SLOW-MAG 71.5-119 MG TBEC One tablet by mouth daily MAGNESIUM CL-CALCIUM CARBONATE [id number] Kristen Sandy RN cephalexin 500 mg oral capsule (8 sources) Cephalosporin Antibacterial Start: 12-28-2024 End: 01-26-2025 take 1 capsule by mouth every eight hours Cephalexin 500 mg capsule Discontinued 500 mg PO Q8H 21 0 December 28, 2024 12:00am January 26, 2025 11:35am cetirizine hydrochloride 10 mg oral tablet (20 [...] tablet by mouth twice daily COLESTIPOL HCL [id number] Kaye Burris PA-C Comment on above: Take 1 g by mouth tw ice daily. cyclobenzaprine hydrochloride 10 mg oral tablet (20 sources) Muscle Relaxant Start: 04-16-20 End: 01-27-20 take 1 tablet by mouth three times daily as needed for muscle spasms Cyclobenzaprine 10 mg tablet Discontinued 10 mg PO THREE TIMES A DAY as needed for Muscle Spasm April 16, 2024 2:33pm January 26, 2025 11:55am Start: 09-26-2023 take 1 tablet by margaret th twice daily as needed for pain cyclobenzaprine (FLEXERIL) 10 mg tablet TAKE 1 TABLET BY MOUTH TWICE DAILY NEEDED FOR MUSCLE PAIN 0 09/26/2023 Active Start: 09-13-2023 End: 04-16-2024 take 5 mg by mouth three times daily as needed for muscle spasms Cyclobenzaprine 10 mg tablet Discontinued 5 mg PO THREE TIMES A DAY as needed for Muscle Spasm September 13, 2023 12:00am April 16, 2024 [...] 10 MG TABS As needed CYCLOBENZAPRINE HCL [id number] Kaye Pierson RN diphenhydrAMINE hydrochloride 25 mg oral capsule (18 sources) Histamine-1 Receptor Antagonist Start: 03-20-2018 End: 11-27-2019 take 2 capsules by mouth at bedtime [...] Discontinued 3 mg SC EVERY WEEK 2 5 October 23, 2024 12:00am October 23, 2024 [...] Discontinued 1.5 mg SC EVERY WEEK 2 3 August 14, 2024 1:00am October 23, 2024 [...] tablet by mouth twice daily ENALAPRIL MALEATE [id number] Kaye Pierson RN Start: 06-10-2015 End: 03-12-2017 take 1 tablet by mouth once daily ENALAPRIL MALEATE 10 MG TABS One tablet by mouth daily (STOP) ENALAPRIL MALEATE [id number] Stewart Boggs MD ezetimibe 10 mg oral tablet (20 sources) Dietary Cholesterol Absorption Inhibitor Start: 01-20-2021 End: 11-30-2024 take 1 tablet by mouth once daily Ezetimibe (Zetia) 10 mg tablet Discontinued 10 mg PO DAILY 90 3 November 17, 2024 1:17pm November 30, 2024 1:56pm cholesterol famciclovir 500 mg oral tablet (8 sources) Herpes Simplex Virus Nucleoside Analog DNA Polymerase Inhibitor Start: 12-28-2024 End: 01-26-2025 take 1 tablet by mouth every eight hours Famciclovir 500 mg tablet Discontinued 500 mg PO Q8H 21 7 0 December 28, 2024 12:00am January 26, 2025 11:36am FLUoxetine 40 mg oral capsule (20 sources) [...] depression Start: 11-01-2017 take 1 capsule by mo ut once daily FLUoxetine (PROZAC) 20 mg capsule [...] Discontinued 40 mg PO WITH BREAKFAST 90 3 February 01, 2023 9:38am December 31, 2023 [...] tablet Discontinued 20 mg PO .COMPLEX 90 3 November 01, 2022 1:04pm February 01, 2023 9:38am water pill 20 mg orally daily at lunchtime (takes a 40 mg tablet every morning); Start: 01-17-2016 End: 01-26-2016 take 1 tablet by mouth once daily LASIX 20 MG TABS One tablet by mouth daily FUROSEMIDE [id number] Kaye Pierson RN Start: 01-13-2016 End: 06-19-2016 [...] One tablet by mouth twice daily FUROSEMIDE [id number] Grcae Horan RN Start: 05-27-2015 End: 11-01-2018 take 1 tablet by mouth once daily Furosemide 40 mg tablet Discontinued 40 mg PO daily October 01, 2017 10:26am November 01, 2018 9:37am DIURETIC/WATER PILL Comment on above: Take 1 tablet by margaret th once daily. Take 20 mg by mouth once daily. glipiZIDE 5 mg oral tablet (14 sources) Sulfonylurea Start: 4 End: 05-15-202 5 take 1 tablet by mouth once daily Glipizide 5 mg tablet Discontinued 5 mg PO DAILY July 04, 2023 1:00am October 23, 2024 2:36pm DM glucose 0.4 mg/mg oral gel (5 sources) Start: 6 GLUCOSE 40 % GEL as needed DEXTROSE (DIABETIC USE) [id number] Kristen Sandy RN Handicap Parking Placard (20 sources) Start: 2 End: Handicap Parking Placard Discontinued 0 .Route .MEDSUPPLY [...] PLACA RD Lifetime duration DX: Cardiomyopathy HANDICAP PLACARD Kaye Burris PA-C Insulin Detemir U-100 100 unit/mL (3 mL) insulin pen (20 sources) Start: 07-02-2023 End: 10-04-2023 Insulin Detemir [...] mL) insulin pen Discontinued 12 U SC 170December 31, 2023 10:40am November 30, 2024 1:52pm Diabetes 12 units subcutaneously before dinner meal Start: 10-21-2023 NOVOLOG FLEXPE N U-100 INSULIN 100 unit/mL (3 mL) INJECT 12 UNITS SUBCUTANEOUSLY THREE TIMES DAILY 0 10/21/2023 Active Start: 10-04-2023 End: 02-18-2024 Insulin Aspart U-100 (Novolo g Flexpen U-100 Insulin) 100 unit/mL (3 mL) insulin pen Discontinued 12 U SC THREE TIMES A DAY 30 2 October 04, 2023 12:00am February 18, 2024 [...] U SC THREE TIMES DAILY BEFORE MEALS 06 13May 27, 2015 1:00am January 12, 2016 5:03pm [...] Start: 06-10-2015 take 2 tablets by mo cox monett once daily LISINOPRIL 5 MG TABS Two tablets by mouth daily LISINOPRIL [id number] Stewart Boggs MD Start: 06-10-2015 take 1 tablet by margaret th once daily LISINOPRIL 10 MG TABS One tablet by mouth daily LISINOPRIL [id number] Kristen Sandy RN Start: 06-10-2015 take 1 tablet by margaret th once daily LISINOPRIL 20 MG TABS One tablet by mouth daily LISINOPRIL [id number] Kaye Burris PA-C Start: 05-27-2015 End: 01-12-2016 take 1 tablet by mouth once daily Lisinopril 5 MG tablet Discontinued 5 mg PO DAILY 30 0 May 27, 2015 1:00am January 12, 2016 5:03pm meclizine hydrochloride 25 mg oral tablet (20 sources) Antiemetic Start: 07-23-2020 End: 01-26-2025 take 1 tablet by mouth three times daily as needed for dizziness Meclizine 25 mg tablet Discontinued 25 mg PO THREE TIMES A DAY as needed for dizziness July 23, 2020 1:00am January 26, 2025 11:35am Comment on above: Take 25 mg by mouth three times daily. metFORMIN hydrochloride 1000 mg oral tablet (20 [...] meals. naproxen sodium 220 mg oral tablet (18 sources) Nonsteroidal Anti-inflammatory Drug Start: 5 End: 5 take 2 tablets by mouth twice daily Naproxen Sodium (Aleve) 220 MG tablet Discontinued 440 mg PO TWICE A DAY May 23, 2015 1:00am May 27, 2015 12:51pm omeprazole 20 mg delayed release oral tablet (20 sources) Proton Pump Inhibitor Start: 4 End: 5 take 2 tablets by mouth once daily Omeprazole 20 mg tablet,delayed release (DR/EC) Discontinued 40 mg PO DAILY July 02, 2023 11:16am November 30, 2024 1:56pm GERD Start: 07-02-2023 take 40 mg by mouth once daily Omeprazole Active 40 MG PO DAILY July 02, 2023 11:16am Start: 08-16-2020 take 1 capsule by [facility] once daily omeprazole (PRILOSEC) 20 [...] daily. ondansetron 4 mg disintegrating oral tablet (19 sources) Serotonin-3 Receptor Antagonist Start: 06-01-20 End: 12-01-19 25 take 1 tablet by mouth every six [...] One tablet by mouth daily POTASSIUM CHLORIDE [id number] PALMIRA McdonaldC pravastatin sodium 20 mg oral tablet (10 sources) HMG-CoA Reductase Inhibitor Start: 01-26-20 End: 02-29-20 take 1 tablet by mouth at bedtime PRAVACHOL 20 MG TABS One tablet by mouth at bedtime. PRAVASTATIN SODIUM [id number] Kaye Pierson RN predniSONE 20 mg oral tablet (8 sources) Start: 12-29-19 End: 01-27-20 take 1 tablet by mouth twice daily Prednisone 20 mg tablet Discontinued 20 mg PO TWICE A DAY 10 December 28, 2024 12:00am January 26, 2025 11:35am sacubitril 97 mg / valsartan 103 mg [...] One tablet by mouth twice daily SACUBITRIL-VALSARTAN [id number] Stewart Boggs MD Start: 08-23-2016 take 1 tablet by margaret th twice daily ENTRESTO 49-51 MG TABS One tablet by mouth twice daily SACUBITRIL-VALSARTAN [id number] Stewart Boggs MD Comment on above: 1 tablet twice daily . Semaglutide (20 sources) Start: 02-18-2024 End: 04-16-2024 Semaglutide (Ozempic) [...] Discontinued 1 mg SC EVERY WEEK October 19, 2022 12:00am December 28, 2022 9:33am Start: 10-19-2022 End: 12-28-2022 Semaglutide (Ozempic) 1 mg/d ose (4 mg/3 mL) pen injector Discontinued 1 MG SC EVERY WEEK October 18, 2022 11:00pm December 28, 2022 8:33am Start: 10-19-2022 End: 12-28-2022 Semaglutide (Ozempic) 1 mg/d ose (4 mg/3 mL) pen injector Discontinued 1 MG SC EVERY WEEK 3 October 19, 2022 12:00am December 28, 2022 9:33am Semaglutide (Ozempic) 2 mg/d ose (8 mg/3 mL) pen injector (15 sources) Start: 12-28-2022 End: 10-03-2023 Semaglutide (Ozempic) [...] EVERY WEEK 3 December 28, 2022 12:00am sertraline 25 mg oral tablet (12 sources) Serotonin Reuptake Inhibitor Start: 03-13-2024 End: [...] One tablet by mouth at bedtime. SIMVASTATIN [id number] Stewart Boggs MD spironolactone 50 mg oral [...] TABS One tablet by mouth daily SPIRONOLACTONE [id number] Kirsten Sandy RN Tirzepatide (Mounjaro) 2.5 mg/0.5 mL pen injector (10 sources) Start: 11-27-2024 End: 12-29-2024 Tirzepatide (Mounjaro) 2.5 mg/0.5 mL pen injector Discontinued 2.5 mg SC EVERY WEEK 2 November 27, 2024 12:00am December 29, 2024 4:10pm Type 2 diabetes mellitus Type 2 diabetes mellitus with diabetic chronic kidney disease Start: 11-27-2024 Tirzepatide (M ounjaro) 2.5 mg/0.5 mL pen injector Active 2.5 mg SC EVERY WEEK 2 3 November 27, 2024 12:00am Type 2 diabetes mellitus Type 2 diabetes mellitus with diabetic chronic kidney disease Start: 11-27-2024 Tirzepatide (M ounjaro) 2.5 mg/0.5 mL pen injector Active 2.5 mg SC EVERY WEEK 2 November 27, 2024 12:00am vitamin d 1000 unt oral tablet (5 sources) Start: 08-23-2016 take 5 tablets by mouth once daily VITAMIN D 1000 UNIT TABS Five tablets by mouth daily CHOLECALCIFEROL [id number] Stewart Boggs MD Start: 08-23-2016 take 5 tablets by mo cox monett once daily VITAMIN D 1000 UNIT TABS Five tablets by mouth daily CHOLECALCIFEROL [id number] Stewart Boggs MD Start: 08-23-2016 take 5 tablets by mo ut once daily VITAMIN D 1000 UNIT TABS Five tablets by mouth daily CHOLECALCIFEROL [id number] Stewart Boggs MD Problems Active Problems Problem Classification Problem Date Documented Da te Episodic/Chronic Acute and unspecified renal failure (18 sources) Injury of kidney; Translations: [Acute kidney failure, unspecified] 10-26-2019 Episodic Anxiety disorders (18 sources) Mixed anxiety and depressive disorder; Translations: [Anxiety disorder, unspecified] 04-30-2020 Chronic Cancer; other and unspecified primary (8 sources) Malignant melanoma of left choroid; Translations: [Malignant neoplasm of left choroid] Onset: 8 01-31-2018 Chronic Cancer; other and unspecified primary (1 source) Malignant neoplasm of left choroid; Translations: [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)] Onset: Chronic Cardiac dysrhythmias (3 sources) Palpitations; Translations: [Palpitations] 02-24-2016 Episodic Chronic kidney disease (20 sources) Chronic kidney disease stage 3; Translations: [Stage 3 chronic kidney disease] 12-28-2022 Chronic Conditions associated with dizziness or vertigo (20 sources) Vertigo; Translations: [Dizziness and giddiness] 07-07-2020 Episodic Conduction disorders (20 sources) Bundle branch block; Translations: [Automatic implantable cardiac defibrillator in situ] Onset: 5 05-27-2015 Chronic Comment on above: Implanted 03/16/2016 mala Garcia, [facility] Congestive heart failure; nonhypertensive (20 sources) Chronic systolic (congestive) heart failure; Translations: [Acute on chronic systolic heart failure] Onset: 6 01-17-2016 Chronic Coronary atherosclerosis and other heart disease (20 sources) Atherosclerotic heart disease of nikolai coronary artery without angina pectoris; Translations: [Myocardial ischemia] Onset: 5 Resolved: 6 12-01-2016 Chronic Comment on above: 05/26/2015 @ [facility] per Dr. Boggs: mild nonobstructive CAD Diabetes mellitus with complications (20 sources) Disorder of nervous system due to type 2 diabetes mellitus; Translations: [Type 2 diabetes mellitus with other diabetic neurological complication] Onset: Chronic Diabetes mellitus without complication (20 sources) Diabetes mellitus; Translations: [Type 2 diabetes mellitus] Onset: 5 06-10-2015 Chronic Disorders of lipid metabolism (20 sources) Hyperlipidemia; Translations: [Pure hypercholesterolemia] Onset: 6 01-17-2016 Chronic E Codes: Adverse effects of medical drugs (12 sources) Adverse reaction to drug; Translations: [Adverse effect of unspecified drugs, medicaments and biological substances, initial encounter] 02-26-2024 Episodic Essential hypertension (20 sources) Essential hypertension; Translations: [Essential (primary) hypertension] 02-24-2016 Chronic Gastrointestinal hemorrhage (18 sources) Acute upper gastrointestinal hemorrhage; Translations: [Gastrointestinal hemorrhage, unspecified] 07-06-2020 Episodic Genitourinary symptoms and ill-defined conditions (3 sources) Microalbuminuria; Translations: [Proteinuria, unspecified] 07-17-2024 Episodic Heart valve disorders (20 sources) Nonrheumatic mitral (valve) insufficiency; Translations: [Non-rheumatic mitral regurgitation ] Onset: 6 01-17-2016 Chronic Comment on above: moderate (2+) per ec ho 01/13/2016 Influenza (18 sources) Influenza due to Influenza A virus; Translations: [Influenza due to other identified influenza virus with other respiratory manifestations] 06-09-2022 Episodic Intestinal obstruction without hernia (15 sources) Fecal impaction; Translations: [Fecal impaction of rectum] 11-30-2022 Episodic Mood disorders (16 sources) Depressive disorder; Translations: [Depression] 07-04-2023 Chronic Mycoses (1 source) Onychomycosis; Translations: [Tinea unguium] Episodic Nausea and vomiting (20 sources) Nausea and vomiting; Translations: [Nausea with vomiting, unspecified] 06-09-2022 Episodic Nonspecific chest pain (20 sources) Chest wall pain; Translations: [Other chest pain] 09-13-2023 Episodic Other circulatory disease (18 sources) Disorder of carotid artery; Translations: [Disorder of arteries and arterioles, unspecified] 10-26-2019 Chronic Other circulatory disease (12 sources) History of cardiomyopathy; Translations: [Personal history of other diseases of the circulatory system] 02-26-2024 Episodic Other connective tissue disease (1 source) Pain of toe of left foot; Translations: [Pain in left toe(s)] Episodic Other connective tissue disease (1 source) Pain of toe of right foot; Translations: [Pain in right toe(s)] Episodic Other diseases of veins and lymphatics (10 sources) Lymphedema; Translations: [Lymphedema, not elsewhere classified] 11-30-2024 Chronic Other gastrointestinal disorders (15 sources) Constipation; Translations: [Constipation, unspecified] 11-30-2022 Episodic Other injuries and conditions due to external causes (18 sources) Closed injury of head; Translations: [Unspecified injury of head, initial encounter] 08-18-2020 Episodic Other lower respiratory disease (20 sources) Dyspnea; Translations: [Shortness of breath] 05-01-2020 Episodic Other lower respiratory disease (10 sources) Dyspnea on exertion; Translations: [Other forms of dyspnea] 11-30-2024 Episodic Other lower respiratory disease (10 sources) Orthopnea; Translations: [Orthopnea] 11-30-2024 Episodic Other lower respiratory disease (1 source) Shortness of breath; Translations: [Shortness of breath] Onset: Episodic Other nervous system disorders (12 sources) Dysarthria; Translations: [Dysarthria and anarthria] 02-26-2024 [...] Chronic Other nutritional; endocrine; and metabolic disorders (20 sources) Obesity; Translations: [Obesity, unspecified] 10-24-2024 Chronic Other nutritional; endocrine; and metabolic disorders (10 sources) Body mass index 40+ - severely obese; Translations: [Body mass index (BMI) 40.0-44.9, adult] 11-30-2024 Chronic Other nutritional; endocrine; and metabolic disorders (12 sources) H/O: diabetes mellitus; Translations: [Personal history of other endocrine, nutritional and metabolic disease] 02-26-2024 Episodic Other screening for suspected conditions (not mental disorders or infectious disease) (20 sources) Electrocardiogram abnormal; Translations: [Abnormal electrocardiogram [ECG] [EKG]] 10-26-2019 Episodic Other skin disorders (1 source) Keratosis; Translations: [Epidermal thickening, unspecified] Episodic Negrita-; endo-; and myocarditis; cardiomyopathy (20 sources) Dilated cardiomyopathy; Translations: [Cardiomyopathy] Onset: 5 07-22-2015 Chronic Comment on above: Ejection fraction 20 % per echo 01/13/2016 @ [facility] Peripheral and visceral atherosclerosis (5 sources) Peripheral vascular disease, unspecified; Translations: [Peripheral vascular disease, unspecified] Onset: 6 01-19-2016 Chronic Residual codes; unclassified (16 sources) Noncompliance with medication regimen; Translations: [Noncompliance with medication regimen] 10-19-2022 Episodic Residual codes; unclassified (10 sources) Confusional state; Translations: [Disorientation, unspecified] 01-26-2025 Episodic Residual codes; unclassified (2 sources) Asymptomatic menopausal state; Translations: [Asymptomatic menopausal state] Onset: 5 Episodic Residual codes; unclassified (2 sources) Disorientation, unspecified; Translations: [Disorientation, unspecified] Onset: 5 Episodic Screening and history of mental health and substance abuse codes (18 sources) Ex-tobacco user; Translations: [Personal history of nicotine dependence] 04-30-2020 Episodic Superficial injury; contusion (20 sources) Abrasion of nose; Translations: [Abrasion of nose, initial encounter] 08-18-2020 Episodic Syncope (16 sources) Near syncope; Translations: [Syncope and collapse] 02-01-2023 Episodic Unclassified (20 sources) Obstructive sleep apnea syndrome; Translations: [Obstructive sleep apnea (adult) (pediatric)] Onset: 6 01-17-2016 Chronic Unclassified (3 sources) Long-term drug therapy; Translations: [Other manager long term care (current) drug therapy] Onset: 6 06-23-2015 Viral infection (8 sources) Herpes zoster; Translations: [Zoster without complications] 12-28-2024 Episodic Past or Other Problems Problem Classification Problem Date Documented Da te Episodic/Chronic Other aftercare (2 sources) Other manager long term care (current) drug therapy; Translations: [Other manager long term care (current) drug therapy] Onset: 06-23-2015 06-23-2015 Episodic Other circulatory disease (5 sources) Carotid bruit; Translations: [Other specified symptoms and signs involving the circulatory and respiratory systems] Onset: 01-19-2016 01-19-2016 Episodic Other nutritional; endocrine; and metabolic disorders (5 sources) H/O: metabolic disorder; Translations: [Personal history of other endocrine, nutritional and metabolic disease] Onset: 06-30-2016 06-30-2016 Episodic Other skin disorders (1 source) Rash and other nonspecific skin eruption; Translations: [Rash and other nonspecific skin eruption] Onset: 12-30-2024 Episodic Unclassified (1 source) device check Onset: 10-15-2018 Results Test Name Value Interpretation Reference Range Facility Endocrinology Visit Reporton 04-09-2025 Endocrinology Visit Report [facility] [address] [place] [address]. [address] [place] [address] OFFICE VISIT Date of Service: 04/09/25 MR#: [id number] Acct: [id number] Name: THIAGO PIERRE Rep #: [id number] : 1955 Provider: EVENS gates Age/Sex: 69/F Location: [facility] Status: Signed Intake Vital Signs 10/23/24 13:55 12/28/24 15:39 01/27/25 13:33 04/09/25 14:08 Height 5 ft 4 in 5 ft 4 in 5 ft 4 in 5 ft 4 in Weight: 253 lb 9 oz BMI 43.5 BP 110/67 Blood Pressure Location Rt brachial Position Sitting Pulse 66 Pulse Source Monitor Pulse Oximetry (%) 95 Oxygen Delivery Method room air Intake Visit Reasons: 5.5 M , 01/22 Chief Complaint: f/u diabetes Is patient in pain?: Yes Allergies red dye Allergy (Verified 04/09/25 14:13) Hives Hrqcsmy-GIO-VfA Reductase Inhibitor (Wcabetw-Wyu-Sjq Reductase Inhibitor) Adverse Reaction (Severe, Verified 04/09/25 14:13) Myalgias Medications ???Medication ???Instructions ???Recorded ???Confirmed ???Type aspirin 81 mg tablet,delayed 81 mg PO DAILY@0800 HEALTH 7 04/09/25 History release MAINTENANCE magnesium chloride 71.5 mg 71.5 mg PO DAILY suppliment 04/09/25 History (magnesium chloride) tablet,delayed release (Slow-Mag) Handicap Parking Placard #1 ea 05/09/22 04/09/25 Rx sacubitril 97 mg-valsartan 103 mg 1 tab PO BID HF #180 tabs 5 04/09/25 Rx tablet (Entresto) furosemide 20 mg tablet 20 mg PO QDAY water pill #90 tabs 11/17/24 04/09/25 Rx amlodipine 10 mg tablet 10 mg PO DAILY 11/30/24 04/09/25 H istory cholecalciferol (vitamin D3) 1,250 1,250 mcg PO QWEEK 11/30/24 10/ 0 History mcg (50,000 unit) capsule insulin degludec 100 unit/mL (3 7 unit subcut Q24H diabetes 04/09/25 History mL) subcutaneous pen (Tresiba FlexTouch U-100 insulin) dapagliflozin propanediol 10 mg 10 mg PO DAILY 01/26/25 04/09/25 H istory tablet (Farxiga) gabapentin 600 mg tablet 600 mg PO DAILY 01/26/25 04/09/25 History gabapentin 800 mg tablet 800 mg PO QHS 01/26/25 04/09/25 Hi story insulin lispro 100 unit/mL 10 unit subcut TID 01/26/25 History subcutaneous pen (Humalog KwikPen (U-100) Insulin) carvedilol 12.5 mg tablet 12.5 mg PO BID BLOOD 02/24/2503/13 Rx PRESSURE/HEART #180 tabs ezetimibe 10 mg tablet (Zetia) 10 mg PO DAILY cholesterol #90 tab s 02/24/25 04/09/25 Rx tirzepatide 7.5 mg/0.5 mL 7.5 mg (0.5 mL) subcut QWEEK #2 mL 04/09/25 04/09/25 Rx subcutaneous pen injector (Mounjaro) Have you fallen in the past year?: Yes PFSH Medical History Essential hypertension Elevated troponin History of diabetes mellitus Hx of cardiomyopathy Dysarthria Medication reaction Intractable nausea and vomiting Dizziness Depression Near syncope Vertigo Carotid artery disease Pure hypercholesterolemia Atherosclerotic heart disease of nikolai coronary artery without angina pectoris Nonrheumatic mitral [...] HPI Chief Complaint: f/u diabetes Details: THIAGO PIERRE, is a 69 F who presents to the office today for evaluation and management of diabetes. 90 day GMI today is 7.1%, improved from 01/27/25 A1C at 8.1%. She has lost 4 lbs since her last appt here on 10/23/24. Currently taking Farxiga 10 mg once daily, Mounjaro 5 mg qweek- tolerating well, Lantus 5 u once daily, and Humalog 12 u bfast, 5-6 at supper. CGM tracings reviewed- blood sugars are increasing during morning hours. She is having occasional post meal elevations. She denies any significant episode of (more content not included)... Normal [facility] Absolute lymphocyte countOrd ered By: Dahiana Oakley on 01-27-2025 Lymphocytes Auto (Unsp spec) [#/Vol] 1.85 10*3/uL 0.83-4.51 [facility] Absolute neutrophil countOrd ered By: Dahiana Oakley on 01-27-2025 Neutrophils (Bld) [#/Vol] 2.9 10*3/uL 2.0-7.7 [facility] Anion gap in Serum or Plasma Ordered By: Dahiana Oakley on 01-27-2025 Anion gap [Moles/Vol] 13 mmol/L 10-23 [facility] Automated lymphocyte count a s percentage of total leukocytesOrdered By: Dahiana Oakley on 01-27-2025 Lymphocytes/100 WBC Auto (Unsp spec) 34.6 % [facility] BUN/creatinine ratioOrdered By: Dahiana Oakley on 01-27-2025 Urea nitrogen/Creatinine [Mass ratio] 18.9 mg/mg 03-30 [facility] Basic Metabolic Profile (BMP )on 01-27-2025 BUN/CRE 18.9 RATIO Normal 03-30 [facility] Comment on above: Order Comment: Comme nts: NPO at MI prior to lipid panel Performed By: #### L 501.9520, L500.4100, L500.2500, L100.0100 #### [facility] [address] [place], [address] Calcium [Mass/Vol] 8.6 mg/dL Normal 7.6-11.0 [facility] Comment on above: Order Comment: Comme nts: NPO at MI prior to lipid panel Performed By: #### L [id number], L500.4100, L500.2500, L100.0100 #### [facility] [address] [place], [address] Chloride [Moles/Vol] 105 mmol/L Normal 98-108 [facility] Comment on above: Order Comment: Comme nts: NPO at MI prior to lipid panel Performed By: #### L [id number], L500.4100, L500.2500, L100.0100 #### [facility] [address] [place], [address] CO2 [Moles/Vol] 20.2 mmol/L Low 21.0-32.0 [facility] Comment on above: Order Comment: Comme nts: NPO at [place] prior to lipid panel Performed By: #### L [id number], L500.4100, L500.2500, L100.0100 #### [facility] [address] [place], [address] Creatinine [Mass/Vol] 1.17 mg/dL Normal 0.70-1.20 [facility] Comment on above: Order Comment: Comme nts: NPO at MI prior to lipid panel Performed By: #### L [id number], L500.4100, L500.2500, L100.0100 #### [facility] [address] [place], [address] ECRCL 55.91 ml/min Normal 50-250 [facility] Comment on above: Order Comment: Comme nts: NPO at [place] prior to lipid panel Performed By: #### L [id number], L500.4100, L500.2500, L100.0100 #### [facility] [address] [place], [address] GAP 13 Normal 5-15 [facility] Comment on above: Order Comment: Comme nts: NPO at MN prior to lipid panel Performed By: #### L [id number], L500.4100, L500.2500, L100.0100 #### [facility] [address] [place], [address] GFR/1.73 sq M.predicted among non-blacks MDRD (S/P/Bld) [Vol rate/Area] 50 mL/min/{1.73_m2} Low >60 [facility] Comment on above: Order Comment: Comme nts: NPO at MN prior to lipid panel Result Comment: mL/m in/1.73m2 CKD-EPI Creatinine Equation (2020) Performed By: #### L 501.9520, L500.4100, L500.2500, L100.0100 #### [facility] [address] [place], [address] Glucose [Mass/Vol] 152 mg/dL High 70-99 [facility] Comment on above: Order Comment: Comme nts: NPO at MN prior to lipid panel Performed By: #### L [id number], L500.4100, L500.2500, L100.0100 #### [facility] [address] [place], [address] Potassium [Moles/Vol] 4.3 mmol/L Normal 3.3-5.1 [facility] Comment on above: Order Comment: Comme nts: NPO at MN prior to lipid panel Performed By: #### L [id number], L500.4100, L500.2500, L100.0100 #### [facility] [address] [place], [address] Sodium [Moles/Vol] 138 mmol/L Normal 133-145 [facility] Comment on above: Order Comment: Comme nts: NPO at MN prior to lipid panel Performed By: #### L 501.9520, L500.4100, L500.2500, L100.0100 #### [facility] [address] [place], [address] Urea nitrogen [Mass/Vol] 22 mg/dL High 4-19 [facility] Comment on above: Order Comment: Comme nts: NPO at MN prior to lipid panel Performed By: #### L [id number], L500.4100, L500.2500, L100.0100 #### [facility] [address] [place], [address] Basophil percentageOrdered B y: Dahianavlad Oakley on 01-27-2025 Basophils/100 WBC (Bld) 0.6 % 0-1 [facility] Bedside Glucoseon 01-27-2025 FINGERSTICK GLU 158 mg/dL High 74-106 [facility] Comment on above: Result Comment: AMARI GEMENT OF PATIENT CARE PER NURSING PROTOCOL Performed By: #### L 501.080 #### [facility] [address] [place], [address] FINGERSTICK GLU 152 mg/dL High 74-106 [facility] Comment on above: Result Comment: AMARI GEMENT OF PATIENT CARE PER NURSING PROTOCOL Performed By: #### L 501.080 #### [facility] [address] [place], [address] Brain without Contraston Brain without Contrast [facility] [address] [place] [address] Brain without Contrast MR#: [id number] Acct: [id number] Name: THIAGO PIERRE Rep #: [id number] : 1955 F 69 From: Devan Pillai MD PCP: ARIA Long, HUMAN RESOURCES MANAGER MANUFACTURING-C Status: ADM DENIS Study: Brain without Contrast Date of Exam: 01/27/25 Exam# [id number] Ordering Dr: Dahiana Oakley MD PROCEDURE: BRAIN WITHOUT CONTRAST 01/27/2025 REASON FOR EXAM: TRANSIENT CONFUSION, TIA RULE OUT TECHNIQUE: BRAIN WITHOUT CONTRAST Multiplanar and multisequence images were obtained. COMPARISON: January 26, 2025 FINDINGS: Brain: T2 prolongation is seen in the periventricular white matter along with patchy areas of T2 prolongation in the subcortical and deep white matter of both the frontal and parietal lobes. Prominent perivascular space right basal ganglia. Tiny lacunar infarct left thalamus and central jessa. Blooming artifact from hemosiderin in the lentiform nuclei. No evidence of restricted diffusion to suggest acute ischemia at this time. Ventricles: Mild volume loss. No hydrocephalus. Major Intracranial Vessels: Flow voids are unremarkable. Correlate with CT angiogram of 1 day prior. Sinuses: Clear Mastoids: Clear Right lens implant. MRI/Brain without Contrast IMPRESSION: No evidence of acute ischemia. Chronic microvascular ischemic changes, mild volume loss. Reading Location: [id number] CC: [facility] HUMAN RESOURCES MANAGER MANUFACTURING-C Sarah Toth; Dr. Dahiana Oakley MD Charger Tester: Signed Normal [facility] CBC W/Diff, Automatedon 01-09 Absolute Lymph 1.85 X10 3/uL Normal 0.83-4.51 [facility] Comment on above: Performed By: #### L 501.9520, L500.4100, L500.2500, L100.0100 #### [facility] [address] [place], [address] Absolute Neut 2.9 X10 3/uL Normal 2.0-7.7 [facility] Comment on above: Performed By: #### L 501.9520, L500.4100, L500.2500, L100.0100 #### [facility] [address] [place], [address] Basophils/100 WBC (Bld) 0.6 % Normal 0-1 [facility] Comment on above: Performed By: #### L 501.9520, L500.4100, L500.2500, L100.0100 #### [facility] [address] [place], [address] Eosinophils/100 WBC (Bld) 3.6 % Normal 0-5 [facility] Comment on above: Performed By: #### L 501.9520, L500.4100, L500.2500, L100.0100 #### [facility] [address] [place], [address] Erythrocyte distribution width (RBC) [Ratio] 13.3 % Normal 11.6-14.6 [facility] Comment on above: Performed By: #### L 501.9520, L500.4100, L500.2500, L100.0100 #### [facility] [address] [place], [address] Hematocrit (Bld) [Volume fraction] 39.0 % Normal 37-47 [facility] Comment on above: Performed By: #### L 501.9520, L500.4100, L500.2500, L100.0100 #### [facility] [address] [place], [address] Hemoglobin (Bld) [Mass/Vol] 12.8 g/dL Normal 12.0-15.0 [facility] Comment on above: Performed By: #### L 501.9520, L500.4100, L500.2500, L100.0100 #### [facility] [address] [place], [address] IG% 0.600 Normal 0.0-0.9 [facility] Comment on above: Result Comment: IG% - Immature Granulocytes (promyelocytes, myelocytes and metamyelocytes) > 1% indicates that a LEFT SHIFT is Present. Performed By: #### L 501.9520, L500.4100, L500.2500, L100.0100 #### [facility] [address] [place], [address] Lymphocytes/100 WBC (Bld) 34.6 % Normal 19-41 [facility] Comment on above: Performed By: #### L 501.9520, L500.4100, L500.2500, L100.0100 #### [facility] [address] [place], [address] MCH (RBC) [Entitic mass] 28.8 pg Normal 27.0-32.0 [facility] Comment on above: Performed By: #### L 501.9520, L500.4100, L500.2500, L100.0100 #### [facility] [address] [place], [address] MCHC (RBC) [Mass/Vol] 32.8 g/dL Normal 32-36 [facility] Comment on above: Performed By: #### L 501.9520, L500.4100, L500.2500, L100.0100 #### [facility] [address] [place], [address] MCV (RBC) [Entitic vol] 87.8 fL Normal 81-99 [facility] Comment on above: Performed By: #### L 501.9520, L500.4100, L500.2500, L100.0100 #### [facility] [address] [address], [address] Monocytes/100 WBC (Bld) 7.1 % Normal 0-10 [facility] Comment on above: Performed By: #### L 501.9520, L500.4100, L500.2500, L100.0100 #### [facility] [address] [place], [address] Neutrophils/100 WBC (Bld) 53.5 % Normal 47-70 [facility] Comment on above: Performed By: #### L 501.9520, L500.4100, L500.2500, L100.0100 #### [facility] [address] [place], [address] Nucleated RBC (Bld) [#/Vol] 0 10*3/uL Normal 0-5 [facility] Comment on above: Performed By: #### L 501.9520, L500.4100, L500.2500, L100.0100 #### [facility] [address] [place], [address] Platelet mean volume (Bld) [Entitic vol] 9.2 fL Normal 6.2-12.0 [facility] Comment on above: Performed By: #### L 501.9520, L500.4100, L500.2500, L100.0100 #### [facility] [address] [place], [address] Platelets (Bld) [#/Vol] 265 10*3/uL Normal 150-450 [facility] Comment on above: Performed By: #### L 501.9520, L500.4100, L500.2500, L100.0100 #### [facility] [address] [place], [address] RBC (Bld) [#/Vol] 4.44 10*6/uL Normal 4.2-5.4 [facility] Comment on above: Performed By: #### L 501.9520, L500.4100, L500.2500, L100.0100 #### [facility] [address] [place], [address] RDW SD 42.6 fl Normal 35.1-43.9 [facility] Comment on above: Performed By: #### L 501.9520, L500.4100, L500.2500, L100.0100 #### [facility] [address] [place], [address] WBC (Bld) [#/Vol] 5.4 10*3/uL Normal 4.4-11.0 [facility] Comment on above: Performed By: #### L 501.9520, L500.4100, L500.2500, L100.0100 #### [facility] [address] [place], [address] Calculated very low density lipoprotein (VLDL) cholesterol measurementOrdered By: Dahiana Oakley on 01-27-2025 Calculated very low density lipoprotein (VLDL) cholesterol measurement 44 mg/dL High 5-40 [facility] Carbon dioxide, total [Moles /volume] in Central venous bloodOrdered By: Dahiana Oakley on 01-27-2025 CO2 [Moles/Vol] 20.2 mmol/L Low 21.0-32.0 [facility] Chloride assayOrdered By: Chapin Oakley on 01-27-2025 Chloride [Moles/Vol] 105 mmol/L 98-108 [facility] Discharge Instructionon 01-09 Discharge Instruction [facility] Medical Records Department [address] [place] [address] Instructions for Home/Discharge Instructions 01/27/25 1359 MR#: [id number] Acct: [id number] Name: THIAGO PIERRE Rep #: [id number] : 1955 69 From: Sidra Irving MD PCP: ARIA Long, HUMAN RESOURCES MANAGER MANUFACTURING-C Status:ADM DENIS Discharge Instructions DC O2, CPAP, BIPAP needs Home O2 Discharge instructions: No Dressing / Incision Discharge Activity: Return to Normal Activity Weight Bearing Status: Weight bearing as tolerated Dressing / Incision Call your doctor if you observe: Fever of 101 or Higher, Shortness of breath, Dizziness, Swelling in the ankles and Chest pain Follow Up Care Test Results: Test results from this visit will be discussed in further detail at your follow-up appointment, if applicable. Discharge Plan Admission Admit Date/Time: 01/26/25 15:07 Primary Reason for Your Visit: TIA, migraine Attending Provider: Sidra Irving Primary Care Provider: Sarah Toth Consulting Providers: Cesar Parekh; Merlyn Hardy; Annita Barba; Samra Samano; Maude Anderson; Ferdinand Cruz; Tati Hardwick; Sunny Connelly; Keila Chacon; Arturo Fuller; Sherley Rodriguez; Shaka Lerner; Mary Zuñiga; Serjio Nice; Isabela Alaniz; Dwight Taylor; Joleen Spangler; Modesto Clements; Zaria Esteban; Rand Chamberlain; Dahiana Oakley Instructions Patient Instructions: Migraine Headaches Ch Discharge Orders/Prescriptions Prescriptions: Continued Slow-Mag 71.5 mg tablet,delayed release (DR/EC) 71.5 mg PO DAILY Entresto 97-103 mg tablet 1 tab PO BID Qty: 180 3RF aspirin 81 MG tablet 81 mg PO DAILY@0800 Patient Comments: [facility] amlodipine 10 mg tablet 10 mg PO DAILY cholecalciferol (vitamin D3) 1,250 mcg (50,000 unit) capsule 1,250 mcg PO QWEEK carvedilol 25 mg tablet 25 mg PO DAILY Rx Instructions: must administer with a meal/food insulin degludec [Tresiba FlexTouch U-100] 100 unit/mL (3 mL) insulin pen 7 unit subcut Q24H gabapentin 600 mg tablet 600 mg PO DAILY Rx Instructions: AM gabapentin 800 mg tablet 800 mg PO QHS dapagliflozin propanediol [Farxiga] 10 mg tablet 10 mg PO DAILY insulin lispro [Humalog KwikPen Insulin] 100 unit/mL insulin pen 10 unit subcut TID (DME) Handicap Parking Placard See Rx Instructions .Route .MEDSUPPLY Qty: 1 0RF Rx Instructions: As directed furosemide 20 mg tablet 20 mg PO QDAY Qty: 90 3RF Mounjaro 5 mg/0.5 mL pen injector 5 mg subcut QWEEK Qty: 2 3RF Referrals / Follow Up: Sarah Toth, HUMAN RESOURCES MANAGER MANUFACTURING-C [Primary Care Provider] - Within 1 Week Disposition Disposition (needs filled in before D/C Order can be placed): Home, Self Care 01/27/25 0554 Sidra Irving MD CC: Samra Samano; Mary Zuñiga; Dwight Taylor; ARIA HUMAN RESOURCES MANAGER MANUFACTURING-[employer] Sarah Toth; Maude Anderson MD; Annita Barba MD; Cesar Parekh MD; Dr. Merlyn Hardy MD; Dr. Ferdinand Cruz MD; Dr. Tati Hardwick MD; Dr. Keila Chacon MD; Dr. Sunny Connelly MD; Dr. Arturo Fuller MD; Dr. Shaka Lerner DO; Dr. Isabela Alaniz MD; Dr. Serjio Nice MD; Dr. Dahiana Oakley MD; Dr. Joleen Spangler MD; Dr. Modesto Clements MD; Dr. Zarai Esteban MD; hSerley Rodriguez DO; Rand Chamberlain MD Signed Normal [facility] Electrocardiogram reportOrde red By: Misbah Marcum on 01-27-2025 EKG study [facility] Cardiovascular Services [address] [place] [address] 12 Lead EKG 01/26/25 1452 MR#: [id number] Acct: [id number] Name: THIAGO PIERRE Rep #:[id number] : 1955 69 From: Misbah Marcum MD Attending Dr: Dr. Sidra Irving MD Status: ADM DENIS Ordering Dr: Sidar Irving MD Date: 01/26/25 Location: [facility] Sex: F C Admitted: 01/26/25 Test Reason : rapid heart rate Blood Pressure : */* mmHG Vent. Rate : 60 BPM Atrial Rate : 60 BPM P-R Int : 156 ms QRS Dur : 172 ms QT Int : 508 ms P-R-T Axes : * -39 92 degrees QTcB Int : 508 ms AV dual-paced rhythm Biventricular pacemaker detected Abnormal ECG Confirmed by MISBAH MARCUM MD ([id number]), communications editor SMITH LOPEZ ([id number]) on 01/27/2025 9:02:46 AM Referred By: Confirmed By: MISBAH MARCUM MD 01/27/25 0902 Date _ Misbah Marcum MD CC: ARIA Toth; Dr. Sidra Irving MD ~ Signed [facility] Work Phone: Eosinophil percentageOrdered By: Dahaina Oakley on 01-27-2025 Eosinophils/100 WBC (Bld) 3.6 % 0-5 [facility] Erythrocyte distribution wid th ratioOrdered By: Dahiana Oakley on 01-27-2025 Erythrocyte distribution width (RBC) [Ratio] 13.3 % 11.6-14.6 [facility] Erythrocyte distribution wid th standard deviationOrdered By: Dahiana Oakley on 01-27-2025 Erythrocyte distribution width (RBC) [Ratio] 42.6 fl 35.1-43.9 [facility] Glomerular filtration rate ( GFR) estimation/1.73 sq m using serum, plasma, or whole bOrdered By: Dahiana Oakley on 01-27-2025 GFR/1.73 sq M.predicted among non-blacks MDRD (S/P/Bld) [Vol rate/Area] 50 mL/min/{1.73_m2} Low >60 [facility] Comment on above: mL/min/1.73m2 CKD-EP I Creatinine Equation (2020) [facility] deOrdered By: Sidra Irving on 01-27-2025 Glucose [Mass/Vol] 158 mg/dL High 74-106 [facility] Comment on above: MANAGEMENT OF PATIEN T CARE PER NURSING PROTOCOL Hematocrit Auto (Bld) [Volum e fraction]Ordered By: Dahiana Oakley on 01-27-2025 Hematocrit (Bld) [Volume fraction] 39.0 % 37-47 [facility] Hemoglobin A1con 01-27-2025 HbA1c (Bld) [Mass fraction] 8.1 % High <=5.6 [facility] Comment on above: Result Comment: Norm al < 5.7 % Prediabetic 5.7 - 6.4 % Diabetic >or= 6.5 % Please note range changes. Performed By: #### L 501.3334, L500.4100, L500.2500, L100.0100 #### [facility] [address] [place], [place], [id number] Hemoglobin A1c percentageOrd ered By: Dahiana Oakley on 01-27-2025 HbA1c (Bld) [Mass fraction] 8.1 % High <5.7 [facility] Comment on above: Normal < 5.7 % Predi abetic 5.7 - 6.4 % Diabetic >or= 6.5 % Please note range changes. Hemoglobin measurementOrdere d By: Dahiana Oakley on 01-27-2025 Hemoglobin (Bld) [Mass/Vol] 12.8 g/dL 12.0-15.0 [facility] Immature granulocytes/100 WB C Auto (Bld)Ordered By: Dahiana Oakley on 01-27-2025 Immature granulocytes/100 WBC (Bld) 0.600 % 0.0-0.9 [facility] Comment on above: IG% - Immature Granu locytes (promyelocytes, myelocytes and metamyelocytes) > 1% indicates that a LEFT SHIFT is Present. LDL calc ser/plasOrdered By: Dahiana Oakley on 01-27-2025 Cholesterol in LDL [Mass/Vol] 133 mg/dL [facility] Comment on above: Mzbptatpaf=172-399 m g/dL & Higher Kagv=298 mg/dL or greaterFriedwald Equation for LDL-C Lipid Profileon 01-27-2025 CHOL:HDL 5.10 Normal [facility] Comment on above: Order Comment: Comme nts: NPO at [place] prior to lipid panel Performed By: #### L 501.9520, L500.4100, L500.2500, L100.0100 #### [facility] [address] [place], [address] Cholesterol [Mass/Vol] 220 mg/dL High <=200 [facility] Comment on above: Order Comment: Comme nts: NPO at [place] prior to lipid panel Result Comment: Chol esterol level, Desirable <200 mg/dL Borderline high cholesterol 200-239 mg/dL High cholesterol >=240 mg/dL Recommendations of the NCEP Adult Treatment Panel for the following risk-cutoff thresholds for the [place] population. Performed By: #### L 501.9520, L500.4100, L500.2500, L100.0100 #### [facility] [address] [place], [address] Cholesterol in HDL [Mass/Vol] 43 mg/dL Normal [facility] Comment on above: Order Comment: Comme nts: NPO at [place] prior to lipid panel Result Comment: Joanie onal Cholesterol Education Program (NCEP) guidelines: <40 mg/dL: Low HDL-cholesterol (major risk factor for CHD) >= 60 mg/dL: High HDL-cholesterol (negative risk factor for CHD) HDL-cholesterol is affected by a number of factors, e.g. smoking, exercise, hormones, sex and age. Performed By: #### L 501.9520, L500.4100, L500.2500, L100.0100 #### [facility] [address] [place], [address] Cholesterol in LDL [Mass/Vol] 133 mg/dL Normal [facility] Comment on above: Order Comment: Comme nts: NPO at [place] prior to lipid panel Result Comment: Bord jpjini=997-408 mg/dL Higher Ekph=075 mg/dL or greater Friedwald Equation for LDL-C Performed By: #### L 501.9520, L500.4100, L500.2500, L100.0100 #### [facility] [address] [place], [address] Cholesterol in VLDL [Mass/Vol] 44 mg/dL High 5-40 [facility] Comment on above: Order Comment: Comme nts: NPO at [place] prior to lipid panel Performed By: #### L 501.9520, L500.4100, L500.2500, L100.0100 #### [facility] [address] [place], [address] Triglyceride [Mass/Vol] 218 mg/dL High [facility] Comment on above: Order Comment: Comme nts: NPO at [place] prior to lipid panel Result Comment: The drugs N-Acetylcysteine and Metamizole may falsely depress this assay. Normal range: <150 mg/dL Borderline High: 150-199 mg/dL High: 200-499 mg/dL Very High: >500 mg/dL Performed By: #### L 501.9520, L500.4100, L500.2500, L100.0100 #### [facility] [address] [place], [address] MCV (mean corpuscular volume ) determinationOrdered By: Dahiana Oakley on 01-27-2025 MCV (RBC) [Entitic vol] 87.8 fL 81-99 [facility] MR/CON.PCM.NEon 01-27-2025 MR/CON.PCM.NE [facility] Medical Records Department [address] [place] [address] Consultation - Neurology 01/27/25 1040 MR#: [id number] Acct: [id number] Name: THIAGO PIERRE Rep #: [id number] : 1955 69 From: Joleen Spangler MD PCP: ARIA Long, HUMAN RESOURCES MANAGER MANUFACTURING-C Status:ADM DENIS Location: [place] [address] Assessment and Plan: Neuro Assessment/Plan THIAGO PIERRE is a 69 F with a past medical history of HTN, HLD, who is presenting with a transient episode of confusion upon awakening lasting 5 minutes in the setting of bilateral frontal headache that has been going on for few days. Exam and MRI brain are reassuring Episode likely benign related to migraine headache and waking up from a nap Patietn is at her baseline Can utilize headache cocktial if needed. Can give all the following together unless contraindicated. - ketorolac 30mg IVP or 30-60mg IM - metoclopramide 10mg IVP over 2min OR ondansetron 8mg IVP OR prochlorperazine 10mg IVP over 30s q2- 4h PRN - Benadryl 25 or 50 mg IV - IVF - Magnesium Sulfate 1 gram IV over 1 hr She should follow up with ophtho as planned given retinopathy Will sign off. Please call with questions I personally attended this patient and spent a total time of 45 minutes evaluating this patient including clinical assessment, review of chart, medical history imaging, and determining appropriate treatment and workup. HPI Consult Data Date of Consult: 01/27/25 HPI Narrative HPI Narrative: THIAGO PIERRE, is a 69-year-old woman with history of nonobstructive CAD, BiV ICD in 2016, diabetes, NICOLLE, hypertension, depression, GERD, heart failure with recovered EF, migraines presented to [facility] ED 01/26/2025 due to transient episode of confusion. Reportedly patient had a headache yesterday around 4 days ago, headache is bilateral frontal, pulsating in nature. Some photophobia, no phonophobia. No nausea/vomiting. She took a nap, when she woke up she was confused for 5 minutes and did not know where she was or who her family members were, this completely resolved after 5 minutes. Patient reports she was aware of the episode, she remembers it, she asked where she was. No reports of slurred speech of facial droop. The episode resolved. Headache continued until now, it is a little better now but is still there. No tingilng, numbness, weakness. She also notes that she has had a screen like feeling over her right eye for several weeks but yesterday she developed dark lines and spots in her vision, today she went to the gl accountant and was told she has retinopathy and had some bleeding behind the eye and was referred to a specialist who she will follow-up with on Sunday but they recommended patient come to the ED to rule out a stroke given the episode of confusion yesterday. In the ED blood pressure 117/88, respiratory rate 16 and pulse ox 95% on room air. BMP with a glucose of 139, BUN of 25 and creatinine 1.09. CBC unremarkable, INR 1.1. CT of the head with no acute process, CTA head and neck no LVO. MRI brain with no acute findings PHYSICAL EXAM: Exam performed with help of the nurse/ROSALIA present with patient on Tele site NEURO: AAOx3, follows commands, no aphasia/dysarthria. EOMI, no gaze preference/nystagmus. Face symmetric, Intact facial sensation. Tongue midline. Head turning intact. Sensation: intact to light touch all over Motor: All extremities antigravity Coordination: FTN intact bilaterally PFSH Medical History Essential hypertension Elevated troponin History of diabetes mellitus Hx of cardiomyopathy Dysarthria Medication reaction Intractable nausea and vomiting Dizziness Depression Near syncope Vertigo Carotid artery disease Pure hypercholesterolemia Atherosclerotic heart disease of nikolai coronary artery without angina pectoris Nonrheumatic mitral (valve) insufficiency Dilated cardiomyopathy Chronic systolic (congestive) heart failure BALWINDER (acute kidney injury) Abnormal electrocardiogram Systolic CHF, acute Hypertension Hyperlipidemia Diabetes mellitus, type II NICOLLE (obstructive sleep apnea) Home Medications ???Medication ???Instructions ???Recorded ???Last Taken ???Type aspirin 81 mg tablet,delayed 81 mg PO DAILY@0800 HEALTH 7 01/25/25 History release MAINTENANCE magnesium chloride 71.5 mg 71.5 mg PO DAILY suppliment 01/26/25 History (magnesium chloride) tablet,delayed release (Slow-Mag) Handicap Parking Placard #1 ea 05/09/22 Unknown Rx sacubitril 97 mg-valsartan 103 mg 1 tab PO BID HF #180 tabs 5 01/26/25 Rx tablet (Entresto) furosemide 20 mg tablet 20 mg PO QDAY water pill #90 tabs 11/17/24 01/26/25 Rx amlodipine 10 mg tablet 10 mg PO DAILY 11/30/24 01/26/25 H istory carved (more content not included)... Normal [facility] Magnetic resonance imaging r eportOrdered By: Devan Pillai on 01-27-2025 Study report [facility] Imaging Services [address] [place] [address] Brain without Contrast MR#: [id number] Acct: [id number] Name: THIAGO PIERRE Rep #: [id number] : 1955 F 69 From: Joe Pillai MD PCP: ARIA Long, HUMAN RESOURCES MANAGER MANUFACTURING-C Status: ADM DENIS Study:Brain without Contrast Date of Exam: 01/27/25 Exam# [id number] Ordering Dr: Clinton Oakley MD PROCEDURE: BRAIN WITHOUT CONTRAST 01/27/2025 REASON FOR EXAM: TRANSIENT CONFUSION, TIA RULE OUT TECHNIQUE: BRAIN WITHOUT CONTRAST Multiplanar and multisequence images were obtained. COMPARISON: January 26, 2025 FINDINGS: Brain: T2 prolongation is seen in the periventricular white matter along with patchy areas of T2 prolongation in the subcortical and deep white matter of both the frontal and parietal lobes. Prominent perivascular space right basal ganglia. Tiny lacunar infarct left thalamus and central jessa. Blooming artifact from hemosiderin in the lentiform nuclei. No evidence of restricted diffusion to suggest acute ischemia at this time. Ventricles: Mild volume loss. No hydrocephalus. Major Intracranial Vessels: Flow voids are unremarkable. Correlate with CT angiogram of 1 day prior. Sinuses: Clear Mastoids: Clear Right lens implant. MRI/Brain without Contrast IMPRESSION: No evidence of acute ischemia. Chronic microvascular ischemic changes, mild volume loss. Reading Location: [id number] CC: [facility] HUMAN RESOURCES MANAGER MANUFACTURING-C Sarah Toth; Dr. Dahiana Oakley MD ~ Charger Tester: Signed [facility] Mean corpuscular hemoglobin (MCH) determinationOrdered By: Dahiana Oakley on 01-27-2025 MCH (RBC) [Entitic mass] 28.8 pg 27.0-32.0 [facility] Mean corpuscular hemoglobin concentration (MCHC) determinationOrdered By: Dahiana Oakley on 01-27-2025 MCHC (RBC) [Mass/Vol] 32.8 g/dL 32-36 [facility] Mean platelet volume determi nationOrdered By: Dahiana Oakley on 01-27-2025 Platelet mean volume (Bld) [Entitic vol] 9.2 fL 6.2-12.0 [facility] Monocyte percentageOrdered B y: Dahiana Oakley on 01-27-2025 Monocytes/100 WBC (Bld) 7.1 % 0-10 [facility] Neutrophil percentageOrdered By: Dahiana Oakley on 01-27-2025 Neutrophils/100 WBC (Bld) 53.5 % 47-70 [facility] Nucleated red blood cell per centageOrdered By: Dahiana Oakley on 01-27-2025 Nucleated RBC/100 WBC (Bld) [Ratio] 0 % 0-5 [facility] Pacemaker Checkon 01-27-2025 Pacemaker Check [facility] [address] [place] [address]. [address] [place], [place] [address] Pacemaker Check Date of Service: 01/27/25 1702 MR#: [id number] Acct: [id number] Name: THIAGO PIERRE Rep #: [id number] : 1955 From: Rachel Field Age/Sex: 69/F Location: [facility] [facility] Status: Signed Billing Codes MRI: 69999 Pacmeaker (Programming after MRI) Assessment and Plan Assessment and Plan (1) Dilated cardiomyopathy: Status: Chronic Comment: Ejection fraction 20% per echo 01/13/2016 @ [facility] (2) Chronic systolic (congestive) heart failure: Status: Chronic 01/27/251701 Date Rachel Castro Signature: Date (if applicable) CC: Normal [facility] Pacemaker Check [facility] [address] [place] [address] Pacemaker Check Date of Service: 01/27/251700 MR#: [id number] Acct: [id number] Name: THIAGO PIERRE Rep #: [id number] : 1955 From: Rachel Field Age/Sex: 69/F Location: [facility] [place] Status: Signed Billing Codes MRI: 60247 Pacmeaker (programming prior to MRI) Assessment and Plan Assessment and Plan (1) Dilated cardiomyopathy: Status: Chronic Comment: Ejection fraction 20% per echo 01/13/2016 @ [facility] (2) Chronic systolic (congestive) heart failure: Status: Chronic 01/27/251701 Date Rachel Castro Signature: Date (if applicable) CC: Normal [facility] Platelet countOrdered By: Chapin Oakley on 01-27-2025 Platelets (Bld) [#/Vol] 265 10*3/uL 150-450 [facility] Potassium measurement (mass/ volume)Ordered By: Dahiana Oakley on 01-27-2025 Potassium (Unsp spec) [Mass/Vol] 4.3 mmol/L 3.3-5.1 [facility] RBC Auto (Bld) [#/Vol]Ordere d By: Dahiana Oakley on 01-27-2025 RBC (Bld) [#/Vol] 4.44 10*6/uL 4.2-5.4 [facility] Screening total cholesterol/ high density lipoprotein (HDL) cholesterol ratioOrdered By: Dahiana Oakley on 01-27-2025 Cholesterol.total/Vernell sterol in HDL [Mass ratio] 5.10 {ratio} [facility] Serum creatinine measurement (mass/volume)Ordered By: Dahiana Oakley on 01-27-2025 Creatinine [Mass/Vol] 1.17 mg/dL 0.70-1.20 [facility] Serum glucose measurement (m ass/volume)Ordered By: Dahiana Oakley on 01-27-2025 Glucose [Mass/Vol] 152 mg/dL High 70-99 [facility] Serum or plasma calcium gavi urement (mass/volume)Ordered By: Dahiana Oakley on 01-27-2025 Calcium [Mass/Vol] 8.6 mg/dL 7.6-11.0 [facility] Serum or plasma cholesterol in HDL measurement (mass/volume)Ordered By: Dahiana Oakley on 01-27-2025 Cholesterol in HDL [Mass/Vol] 43 mg/dL >40 [facility] Comment on above: National Cholesterol Education Program (NCEP) guidelines:<40 mg/dL: Low HDL-cholesterol (major risk factor for CHD)>= 60 mg/dL: High HDL-cholesterol (negative risk factor for CHD)HDL-cholesterol is affected by a number of factors, e.g. smoking, exercise, hormones, sex and age. Serum or plasma cholesterol measurement (mass/volume)Ordered By: Dahiana Oakley on 01-27-2025 Cholesterol [Mass/Vol] 220 mg/dL High <201 [facility] Comment on above: Cholesterol level, D esirable <200 mg/dLBorderline high cholesterol 200-239 mg/dLHigh cholesterol >=240 mg/dLRecommendations of the NCEP Adult Treatment Panel for the following risk-cutoff thresholds for the [place] population. Serum or plasma urea nitroge n measurement (mass/volume)Ordered By: Dahiana Oakley on 01-27-2025 Urea nitrogen [Mass/Vol] 22 mg/dL High - [facility] Sodium levelOrdered By: Jacey Oakley on 01-27-2025 Sodium [Moles/Vol] 138 mmol/L 133-145 [facility] TSH DL <= 0.005 mIU/L QnOrde red By: Dahiana Oakley on 01-27-2025 TSH Qn 3.260 uIU/mL 0.300-4.200 [facility] Thyroid Stim Hormone (TSH)on 01-27-2025 TSH 3.260 uIU/mL Normal 0.300-4.200 [facility] Comment on above: Order Comment: Comme nts: NPO at [place] prior to lipid panel Performed By: #### L 501.9520, L500.4100, L500.2500, L100.0100 #### [facility] [address] [facility] [place], [address] Triglycerides measurementOrd ered By: Dahiana Oakley on 01-27-2025 Triglyceride [Mass/Vol] 218 mg/dL High <199 [facility] Comment on above: The drugs N-Acetylcy steine and Metamizole may falsely depress this assay. Normal range: <150 mg/dLBorderline High: 150-199 mg/dLHigh: 200-499 mg/dLVery High: >500 mg/dL White blood cell (WBC) count Ordered By: Dahiana Oakley on 01-27-2025 WBC (Bld) [#/Vol] 5.4 10*3/uL 4.4-11.0 [facility] 12 Lead EKGon 01-26-2025 12 Lead EKG [facility] Cardiovascular Services [address] [place] [address] 12 Lead EKG 01/26/25 1452 MR#: [id number] Acct: [id number] Name: THIAGO PIERRE Rep #: [id number] : 1955 69 From: Misbah Marcum MD Attending Dr: Dr. Sidra Irving MD Status: AD M DENIS Ordering Dr: Sidra Irving MD Date: 01/26/25 Location: [facility] Sex: F C Admitted: 01/26/25 Test Reason : rapid heart rate Blood Pressure : */* mmHG Vent. Rate : 60 BPM Atrial Rate : 60 BPM P-R Int : 156 ms QRS Dur : 172 ms QT Int : 508 ms P-R-T Axes : * -39 92 degrees QTcB Int : 508 ms AV dual-paced rhythm Biventricular pacemaker detected Abnormal ECG Confirmed by MISBAH MARCUM MD ([id number]), communications editor SMITH LOPEZ ([id number]) on 01/27/2025 9:02:46 AM Referred By: Confirmed By: MISBAH MARCUM MD 01/27/25 0902 Date Misbah Marcum MD CC: [facility] HUMAN RESOURCES MANAGER MANUFACTURING-C Sarah Toth; Dr. Sidra Irving MD Signed Normal [facility] Absolute lymphocyte countOrd ered By: Dahiana Oakley on 01-26-2025 Lymphocytes Auto (Unsp spec) [#/Vol] 2.36 10*3/uL 0.83-4.51 [facility] Absolute neutrophil countOrd ered By: Dahiana Oakley on 01-26-2025 Neutrophils (Bld) [#/Vol] 2.9 10*3/uL 2.0-7.7 [facility] Anion gap in Serum or Plasma Ordered By: Cornelia Murillo on 01-26-2025 Anion gap [Moles/Vol] 12 mmol/L -15 [facility] Automated lymphocyte count a s percentage of total leukocytesOrdered By: Dahiana Oakley on 01-26-2025 Lymphocytes/100 WBC Auto (Unsp spec) 39.4 % - [facility] BUN/creatinine ratioOrdered By: Cornelia Murillo on 01-26-2025 Urea nitrogen/Creatinine [Mass ratio] 22.8 mg/mg High 10-20 [facility] Basic Metabolic Profile (BMP )on 08-18-2025 BUN/CRE 22.8 RATIO High 10-20 [facility] Comment on above: Performed By: #### L 500.2500 ####[facility] [address] [place], [address] Calcium [Mass/Vol] 9.4 mg/dL Normal 7.6-11.0 [facility] Comment on above: Performed By: #### L 500.2500 ####[facility] [address] [place], [address] Chloride [Moles/Vol] 105 mmol/L Normal 98-108 [facility] Comment on above: Performed By: #### L 500.2500 ####[facility] [address] [place], [address] CO2 [Moles/Vol] 22.0 mmol/L Normal 21.0-32.0 [facility] Comment on above: Performed By: #### L 500.2500 ####[facility] [address] [place], [address] Creatinine [Mass/Vol] 1.09 mg/dL Normal 0.70-1.20 [facility] Comment on above: Performed By: #### L 500.2500 ####[facility] [address] [place], [address] ECRCL 59.78 ml/min Normal 50-250 [facility] Comment on above: Performed By: #### L 500.2500 ####[facility] [address] [place], [address] GAP 12 Normal 5-15 [facility] Comment on above: Performed By: #### L 500.2500 ####[facility] [address] [place], [address] GFR/1.73 sq M.predicted among non-blacks MDRD (S/P/Bld) [Vol rate/Area] 54 mL/min/{1.73_m2} Low >60 [facility] Comment on above: Result Comment: mL/m in/1.73m2 CKD-EPI Creatinine Equation (2020) Performed By: #### L 500.2500 ####[facility] [address] [place] [place], [address] Glucose [Mass/Vol] 139 mg/dL High 70-99 [facility] Comment on above: Performed By: #### L 500.2500 ####[facility] [address] [place], [address] Potassium [Moles/Vol] 4.2 mmol/L Normal 3.3-5.1 [facility] Comment on above: Performed By: #### L 500.2500 ####[facility] [address] [place], [address] Sodium [Moles/Vol] 139 mmol/L Normal 133-145 [facility] Comment on above: Performed By: #### L 500.2500 ####[facility] [address] [place], [address] Urea nitrogen [Mass/Vol] 25 mg/dL High 4-19 [facility] Comment on above: Performed By: #### L 500.2500 ####[facility] [address] [place], [address] Basophil percentageOrdered B y: Dahiana Oakley on 01-26-2025 Basophils/100 WBC (Bld) 0.5 % 0-1 [facility] Bedside Glucoseon 01-26-2025 FINGERSTICK GLU 153 mg/dL High 74-106 [facility] Comment on above: Result Comment: AMARI GEMENT OF PATIENT CARE PER NURSING PROTOCOL Performed By: #### L 501.9520, L500.4100, L500.2500, L100.0100 #### [facility] [address] [place], [address] FINGERSTICK GLU 113 mg/dL High 74-106 [facility] Comment on above: Result Comment: AMARI GEMENT OF PATIENT CARE PER NURSING PROTOCOL Performed By: #### L 501.9520, L500.0510, L500.2500, L100.0100 #### [facility] [address] [place], [address] Brain/Head without Contrasto n 01-26-2025 Brain/Head without Contrast [facility] Imaging Services [address] [place] [address] Brain/Head without Contrast MR#: [id number] Acct: [id number] Name: THIAGO PIERRE Rep #: [id number] : 1955 F 69 From: Devan Pillai MD PCP: ARIA Long, HUMAN RESOURCES MANAGER MANUFACTURING-C Status: REG ER Study: Brain/Head without Contrast Date of Exam: 01/09 02/02 Exam# [id number] Ordering Dr: Cornelia Murillo MD PROCEDURE: BRAIN/HEAD WITHOUT CONTRAST 01/26/2025 REASON FOR EXAM: HEADACHE TECHNIQUE: BRAIN/HEAD WITHOUT CONTRAST Coronal and Sagittal reconstruction series were provided. One or more dose reduction techniques were used (e.g., Automated exposure control, adjustment of the mA and/or kV according to patient size, use of iterative reconstruction technique. RADIATION DOSE SUMMARY: CTDlvol: 89 mGy DLP: 1542 mGycm COMPARISON: February 18, 2024 FINDINGS: Brain: There is no evidence of hemorrhage, acute ischemia or mass. No extra-axial fluid collection, midline shift or mass effect. Low-density is seen in the periventricular white matter and deep white matter of the frontal and parietal lobes. Lacunar type infarcts in the basal ganglia. CSF Spaces: Normal Sinuses/Mastoids: Clear Bones: No fracture Right lens implant. CT/Brain/Head without Contrast IMPRESSION: 1. No evidence of intracranial hemorrhage or acute ischemia. 2. Changes of chronic microvascular ischemia and volume loss. Reading Location: [id number] CC: [facility] HUMAN RESOURCES MANAGER MANUFACTURING-C Sarah Toth; Dr. Cornelia Murillo MD Charger Tester: Signed Normal [facility] CBC W/Diff, Automatedon 01-09 Absolute Lymph 2.36 X10 3/uL Normal 0.83-4.51 [facility] Comment on above: Performed By: #### L 100.0100 ####[facility] [address] [place], [address] Absolute Neut 2.9 X10 3/uL Normal 2.0-7.7 [facility] Comment on above: Performed By: #### L 100.0100 ####[facility] [address] [place], [address] Basophils/100 WBC (Bld) 0.5 % Normal 0-1 [facility] Comment on above: Performed By: #### L 100.0100 ####[facility] [address] [place], [address] Eosinophils/100 WBC (Bld) 2.7 % Normal 0-5 [facility] Comment on above: Performed By: #### L 100.0100 ####[facility] [address] [place], [address] Erythrocyte distribution width (RBC) [Ratio] 13.2 % Normal 11.6-14.6 [facility] Comment on above: Performed By: #### L 100.0100 ####[facility] [address] [place], [address] Hematocrit (Bld) [Volume fraction] 40.8 % Normal 37-47 [facility] Comment on above: Performed By: #### L 100.0100 ####[facility] [address] [place], [address] Hemoglobin (Bld) [Mass/Vol] 13.2 g/dL Normal 12.0-15.0 [facility] Comment on above: Performed By: #### L 100.0100 ####[facility] [address] [place], [address] IG% 0.500 Normal 0.0-0.9 [facility] Comment on above: Result Comment: IG% - Immature Granulocytes (promyelocytes, myelocytes and metamyelocytes) > 1% indicates that a LEFT SHIFT is Present. Performed By: #### L 100.0100 ####[facility] [address] [place], [address] Lymphocytes/100 WBC (Bld) 39.4 % Normal 19-41 [facility] Comment on above: Performed By: #### L 100.0100 ####[facility] [address] [place], [address] MCH (RBC) [Entitic mass] 28.9 pg Normal 27.0-32.0 [facility] Comment on above: Performed By: #### L 100.0100 ####[facility] [address] [place], [address] MCHC (RBC) [Mass/Vol] 32.4 g/dL Normal 32-36 [facility] Comment on above: Performed By: #### L 100.0100 ####[facility] [address] [place], [address] MCV (RBC) [Entitic vol] 89.3 fL Normal 81-99 [facility] Comment on above: Performed By: #### L 100.0100 ####[facility] [address] [place], [address] Monocytes/100 WBC (Bld) 9.0 % Normal 0-10 [facility] Comment on above: Performed By: #### L 100.0100 ####[facility] [address] [place], [address] Neutrophils/100 WBC (Bld) 47.9 % Normal 47-70 [facility] Comment on above: Performed By: #### L 100.0100 ####[facility] [address] [place], [address] Nucleated RBC (Bld) [#/Vol] 0 10*3/uL Normal 0-5 [facility] Comment on above: Performed By: #### L 100.0100 ####[facility] [address] [place], [address] Platelet mean volume (Bld) [Entitic vol] 9.5 fL Normal 6.2-12.0 [facility] Comment on above: Performed By: #### L 100.0100 ####[facility] [address] [place], [address] Platelets (Bld) [#/Vol] 278 10*3/uL Normal 150-450 [facility] Comment on above: Performed By: #### L 100.0100 ####[facility] [address] [place], [address] RBC (Bld) [#/Vol] 4.57 10*6/uL Normal 4.2-5.4 [facility] Comment on above: Performed By: #### L 100.0100 ####[facility] [address] [place], [address] RDW SD 42.8 fl Normal 35.1-43.9 [facility] Comment on above: Performed By: #### L 100.0100 ####[facility] [address] [place], [address] WBC (Bld) [#/Vol] 6.0 10*3/uL Normal 4.4-11.0 [facility] Comment on above: Performed By: #### L 100.0100 ####[facility] [address] [place], [address] CTA Head AND Neck W/ Contras ton 01-26-2025 CTA Head AND Neck W/ Contrast [facility] Imaging Services [address] [place] [address] CTA Head AND Neck W/ Contrast MR#: [id number] Acct: [id number] Name: THIAGO PIERRE Rep #: [id number] : 1955 F 69 From: Macho rome MD PCP: Sarah Toth [facility], HUMAN RESOURCES MANAGER MANUFACTURING-C Status: REG ER Study: CTA Head AND Neck W/ Contrast Date of Exam: Exam# [id number] Ordering Dr: Cornelia Murillo MD PROCEDURE: CTA HEAD AND NECK W/ CONTRAST 01/26/2025 REASON FOR EXAM: HEADACHE, VISION CHANGES RIGHT SIDED TECHNIQUE: CTA HEAD AND NECK W/ CONTRAST Multiplanar Sagittal and Coronal images were obtained. 3D post processing was performed CONTRAST: Isovue 370 VOLUME: 100 mL One or more dose reduction techniques were used (e.g., Automated exposure control, adjustment of the mA and/or kV according to patient size, use of iterative reconstruction technique). RADIATION DOSE SUMMARY: CTDlvol: 30.3 mGy DLP: 1542.16 mGycm COMPARISON: Prior CT catheter head done earlier in the day. FINDINGS: There is a 6.4 mm hypodense nodule in the lower pole of the left lobe of the liver suggestive of a small colloid cyst. Aortic Arch: Normal size and branching pattern. Mild atherosclerotic plaque. Brachiocephalic and Subclavians: Unremarkable RIGHT Carotid: Right CCA: Unremarkable. Right ICA: Mild calcified and soft plaque. Maximum stenosis (NASCET): <50 % Right ECA: Unremarkable. LEFT Carotid: Left CCA: Unremarkable. Left ICA: Mild calcified and soft plaque. Maximum stenosis (NASCET): <20 % Left ECA: Unremarkable. Vertebrals: Codominant. Arise from the subclavians. Both vertebrals form the basilar. RIGHT Vertebral: Unremarkable. LEFT Vertebral: Unremarkable. Anatomy: [place] anatomy is normal. Aneurysm or avm: No intracranial aneurysms or large vascular malformations are identified. Anterior cerebral arteries: Unremarkable: Middle cerebral arteries: Unremarkable. Basilar artery: Unremarkable. Posterior cerebral arteries: Unremarkable. Other major branches of the posterior circulation: Unremarkable. Major venous structures: Unremarkable. Other findings: Neck: Lungs: Bones: CT/CTA Head AND Neck W/ Contrast IMPRESSION: Minimal plaque formation at the origin of the right and left internal carotid arteries causing minimal narrowing. Reading Location: [id number] CC: [facility] HUMAN RESOURCES MANAGER MANUFACTURING-C Sarah Toth; Dr. Cornelia Murillo MD Charger Tester: Signed Normal [facility] Carbon dioxide, total [Moles /volume] in Central venous bloodOrdered By: Cornelia Murillo on 01-26-2025 CO2 [Moles/Vol] 22.0 mmol/L 21.0-32.0 [facility] Chloride assayOrdered By: Geronimo Murillo on 01-26-2025 Chloride [Moles/Vol] 105 mmol/L 98-108 [facility] Emergency Department Summary on 01-26-2025 Emergency Department Summary [facility] Medical Records Department [address] [place] [address] Emergency Department Summary 01/26/25 MR#: [id number] Acct: [id number] Name: THIAGO PIERRE Rep #: [id number] : 1955 69 From: Cornelia Murillo MD PCP: Sarah Toth [facility], HUMAN RESOURCES MANAGER MANUFACTURING-C Status:ADM DENIS Location: [address] History of Present Illness Chief Complaint: Headache Narrative Narrative: Patient is a 69-year-old female presenting to the emergency department for a headache., Right sided visual changes and concern for stroke. Patient has a past medical history as below. Patient states that yesterday around 1 PM she went to take a nap and when she woke up she did not know who she was, who her family members were in the house or where she was for about 5 minutes. She states for about the past week she has had right sided visual changes where it looks like she is looking through a screen. She reports that for the past few days she has had wavy lines in her right vision as well. 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 She denies any speech difficulty, numbness or weakness in her arms or legs or trouble ambulating. She states that she went to the eye doctor today and they diagnosed her with a posterior posterior detachment and vitreous hemorrhage in the right eye. Patient states she did not take anything for headache today. She states although it has been ongoing for the past 2 or 3 days it will go for short periods of time and then come back gradually. PFSH PFSH Medical History Essential hypertension Elevated troponin History of diabetes mellitus Hx of cardiomyopathy Dysarthria Medication reaction Intractable nausea and vomiting Dizziness Depression Near syncope Vertigo Carotid artery disease Pure hypercholesterolemia Atherosclerotic heart disease of nikolai coronary artery without angina pectoris Nonrheumatic mitral (valve) insufficiency Dilated cardiomyopathy Chronic systolic (congestive) heart failure BALWINDER (acute kidney injury) Abnormal electrocardiogram Systolic CHF, acute Hypertension Hyperlipidemia Diabetes mellitus, type II NICOLLE (obstructive sleep apnea) Home Medications ???Medication ???Instructions ???Recorded ???Last Taken ???Type aspirin 81 mg tablet,delayed 81 mg PO DAILY@0800 HEALTH 7 01/25/25 History release MAINTENANCE magnesium chloride 71.5 mg 71.5 mg PO DAILY suppliment 01/26/25 History (magnesium chloride) tablet,delayed release (Slow-Mag) Handicap Parking Placard #1 ea 05/09/22 Unknown Rx sacubitril 97 mg-valsartan 103 mg 1 tab PO BID HF #180 tabs 5 01/26/25 Rx tablet (Entresto) furosemide 20 mg tablet 20 mg PO QDAY water pill #90 tabs 11/17/24 01/26/25 Rx amlodipine 10 mg tablet 10 mg PO DAILY 11/30/24 01/26/25 H istory carvedilol 25 mg tablet 25 mg PO DAILY 11/30/24 01/26/25 H istory cholecalciferol (vitamin D3) 1,250 1,250 mcg PO QWEEK 11/30/2401/09 History mcg (50,000 unit) capsule insulin degludec 100 unit/mL (3 7 unit subcut Q24H diabetes 11/30/24 History mL) subcutaneous pen (Tresiba FlexTouch U-100 insulin) tirzepatide 5 mg/0.5 mL 5 mg (0.5 mL) subcut QWEEK #2 mL 0 12/29/24 01/21/25 Rx subcutaneous pen injector (Abdirashid) dapagliflozin propanediol 10 mg 10 mg PO DAILY 01/26/25 01/26/25 H istory tablet (Farxiga) gabapentin 600 mg tablet 600 mg PO DAILY 01/26/25 01/26/25 History gabapentin 800 mg tablet 800 mg PO QHS 01/26/25 01/25/25 Hi story insulin lispro 100 unit/mL 10 unit subcut TID 01/26/25 History subcutaneous pen (Humalog KwikPen (U-100) Insulin) Allergy/AdvReac Type Severity Reaction Status Date / Time red dye Allergy Hives Verified 01/26/25 11:33 Ybrqekb-AAE-LdT Reductase AdvReac Severe Myalgias Verified 01/26/25 11:33 Inhibitor (Ntcqrjg-Bqk-Oan Reductase Inhibitor) Family History Father , Lung [...] always do you feel safe at home: (more content not included)... Normal [facility] Eosinophil percentageOrdered By: Dahiana Oakley on 01-26-2025 Eosinophils/100 WBC (Bld) 2.7 % 0-5 [facility] Erythrocyte distribution wid th ratioOrdered By: Dahiana Oakley on 01-26-2025 Erythrocyte distribution width (RBC) [Ratio] 13.2 % 11.6-14.6 [facility] Erythrocyte distribution wid th standard deviationOrdered By: Dahiana Oakley on 01-26-2025 Erythrocyte distribution width (RBC) [Ratio] 42.8 fl 35.1-43.9 [facility] Glomerular filtration rate ( GFR) estimation/1.73 sq m using serum, plasma, or whole bOrdered By: Cornelia Murillo on 01-26-2025 GFR/1.73 sq M.predicted among non-blacks MDRD (S/P/Bld) [Vol rate/Area] 54 mL/min/{1.73_m2} Low >60 [facility] Comment on above: mL/min/1.73m2 CKD-EP I Creatinine Equation (2020) H AND P Exam - [facility] 01-26-2025 H&P Exam - Hospitalist [facility] Medical Records Department [address] [place] [address] H P Exam - Hospitalist 01/26/25 1507 MR#: [id number] Acct: [id number] Name: THIAGO PIERRE Rep #: [id number] : 1955 69 From: Dahiana Oakley MD PCP: Sarah Toth [facility], HUMAN RESOURCES MANAGER MANUFACTURING-C Status:ADM DENIS Location: [place] [address] HPI - General General Date of Admission: 01/26/25 Date of Service: 01/26/25 Chief Complaint: Transient episode of confusion HPI Narrative THIAGO PIERRE, is a 69-year-old female history of nonobstructive CAD, BiV ICD in 2016, diabetes, NICOLLE, hypertension, depression, GERD, heart failure with recovered EF presented to [facility] ED 01/26/2025 due to transient episode of confusion. In the ED temp 98, heart rate initially 124 and came down to 60, blood pressure 117/88, respiratory rate 16 and pulse ox 95% on room air. BMP with a glucose of 139, BUN of 25 and creatinine 1.09. CBC unremarkable, INR 1.1. CT of the head with no acute process, CTA head and neck no LVO. Hospitalist contacted for admission for TIA rule out. Reportedly patient had a headache yesterday and took a nap, when she woke up she was confused for 5 minutes and did not know where she was or who her family members were, this completely resolved after 5 minutes. She also notes that she has had a screen like feeling over her right eye for several weeks but yesterday she developed dark lines and spots in her vision, today she went to the gl accountant and was told she has retinopathy and had some bleeding behind the eye and was referred to a specialist who she will follow-up with on Sunday but they recommended patient come to the ED to rule out a stroke given the episode of confusion yesterday. Patient said she still has a headache in its frontal and bilateral and it slightly improved with the Tylenol. Reports she still has some dots in her vision and still feels a little bit like the screen is pulled over it but feels her vision is slowly clearing. She reports she has some chronic right lower extremity neuropathy that has been a little bit worse recently but no acute numbness or tingling, no other acute ROS complaints aside from the above. Notes that she does have sleep apnea but has not used her NIPPV for several years, mental status seems back to baseline and patient not somnolent or with decreased level of consciousness. [facility] Medical History Essential hypertension Elevated troponin History of diabetes mellitus Hx of cardiomyopathy Dysarthria Medication reaction Intractable nausea and vomiting Dizziness Depression Near syncope Vertigo Carotid artery disease Pure hypercholesterolemia Atherosclerotic heart disease of nikolai coronary artery without angina pectoris Nonrheumatic mitral (valve) insufficiency Dilated cardiomyopathy Chronic systolic (congestive) heart failure BALWINDER (acute kidney injury) Abnormal electrocardiogram Systolic CHF, acute Hypertension Hyperlipidemia Diabetes mellitus, type II NICOLLE (obstructive sleep apnea) Home Medications ???Medication ???Instructions ???Recorded ???Last Taken ???Type aspirin 81 mg tablet,delayed 81 mg PO DAILY@0800 HEALTH 7 01/25/25 History release MAINTENANCE magnesium chloride 71.5 mg 71.5 mg PO DAILY suppliment 01/26/25 History (magnesium chloride) tablet,delayed release (Slow-Mag) Handicap Parking Placard #1 ea 05/09/22 Unknown Rx sacubitril 97 mg-valsartan 103 mg 1 tab PO BID HF #180 tabs 2 5 01/26/25 Rx tablet (Entresto) furosemide 20 mg tablet 20 mg PO QDAY water pill #90 tabs 11/17/24 01/26/25 Rx amlodipine 10 mg tablet 10 mg PO DAILY 11/30/24 01/26/25 H istory carvedilol 25 mg tablet 25 mg PO DAILY 11/30/24 01/26/25 H istory cholecalciferol (vitamin D3) 1,250 1,250 mcg PO QWEEK 11/30/2401/09 History mcg (50,000 unit) capsule insulin degludec 100 unit/mL (3 7 unit subcut Q24H diabetes 11/30/24 History mL) subcutaneous pen (Tresiba FlexTouch U-100 insulin) tirzepatide 5 mg/0.5 mL 5 mg (0.5 mL) subcut QWEEK #2 mL 0 12/29/24 01/21/25 Rx subcutaneous pen injector (Abdirashid) dapagliflozin propanediol 10 mg 10 mg PO DAILY 01/26/25 01/26/25 H istory tablet (Farxiga) gabapentin 600 mg tablet 600 mg PO DAILY 01/26/25 01/26/25 History gabapentin 800 mg tablet 800 mg PO QHS 01/26/25 01/25/25 Hi story insulin lispro 100 unit/mL 10 unit subcut TID 01/26/25 History subcutaneous pen (Humalog KwikPen (U-100) Insulin) Allergy/AdvReac Type Severity Reaction Status Date / Time red dye Allergy Hives Verified 01/26/25 11:33 Plfmozo-LVL-XaP Reductase AdvReac Severe Myalgias Verified 01/26/25 11:33 Inhibitor (Uywqdmr-Gkk-Rzv Reductase Inhibitor) Family History (Reviewed (more content not included)... Normal [facility] Hematocrit Auto (Bld) [Volum e fraction]Ordered By: Dahiana Oakley on 01-26-2025 Hematocrit (Bld) [Volume fraction] 40.8 % 37-47 [facility] Hemoglobin measurementOrdere d By: Dahiana Oakley on 01-26-2025 Hemoglobin (Bld) [Mass/Vol] 13.2 g/dL 12.0-15.0 [facility] Immature granulocytes/100 WB C Auto (Bld)Ordered By: Dahiana Oakley on 01-26-2025 Immature granulocytes/100 WBC (Bld) 0.500 % 0.0-0.9 [facility] Comment on above: IG% - Immature Granu locytes (promyelocytes, myelocytes and metamyelocytes) > 1% indicates that a LEFT SHIFT is Present. International normalized rat io (INR) calculationOrdered By: Dahiana Oakley on 01-26-2025 INR Coag (Bld) [Relative time] 1.1 {INR} [facility] L501.4021on 01-26-2025 Trop T High Sen 15 ng/L High <=14 [facility] Comment on above: Performed By: #### L 501.4021 ####[facility] [address] [place], [address] MCV (mean corpuscular volume ) determinationOrdered By: Dahiana Oakley on 01-26-2025 MCV (RBC) [Entitic vol] 89.3 fL 81-99 [facility] Mean corpuscular hemoglobin (MCH) determinationOrdered By: Dahiana Oakley on 01-26-2025 MCH (RBC) [Entitic mass] 28.9 pg 27.0-32.0 [facility] Mean corpuscular hemoglobin concentration (MCHC) determinationOrdered By: Dahiana Oakley on 01-26-2025 MCHC (RBC) [Mass/Vol] 32.4 g/dL 32-36 [facility] Mean platelet volume determi nationOrdered By: Dahiana Oakley on 01-26-2025 Platelet mean volume (Bld) [Entitic vol] 9.5 fL 6.2-12.0 [facility] Monocyte percentageOrdered B y: Dahiana Oakley on 01-26-2025 Monocytes/100 WBC (Bld) 9.0 % 0-10 [facility] Neutrophil percentageOrdered By: Dahiana Oakley on 01-26-2025 Neutrophils/100 WBC (Bld) 47.9 % 47-70 [facility] Nucleated red blood cell per centageOrdered By: Dahiana Oakley on 01-26-2025 Nucleated RBC/100 WBC (Bld) [Ratio] 0 % 0-5 [facility] Platelet countOrdered By: Chapin Oakley on 01-26-2025 Platelets (Bld) [#/Vol] 278 10*3/uL 150-450 [facility] Potassium measurement (mass/ volume)Ordered By: Cornelia Murillo on 01-26-2025 Potassium (Unsp spec) [Mass/Vol] 4.2 mmol/L 3.3-5.1 [facility] Prothrombin Time w/INRon INR Coag (PPP) [Relative time] 1.1 {INR} Normal [facility] Comment on above: Performed By: #### L 501.9520, L500.4100, L500.2500, L100.0100 #### [facility] [address] [place], [address] PT Coag (PPP) [Time] 14.0 s Normal 11.7-14.9 [facility] Comment on above: Performed By: #### L 501.9520, L500.4100, L500.2500, L100.0100 #### [facility] [address] [place], [address] Prothrombin timeOrdered By: Dahiana Oakley on 01-26-2025 PT Coag (PPP) [Time] 14.0 s 11.7-14.9 [facility] RBC Auto (Bld) [#/Vol]Ordere d By: Dahiana Oakley on 01-26-2025 RBC (Bld) [#/Vol] 4.57 10*6/uL 4.2-5.4 [facility] Serum creatinine measurement (mass/volume)Ordered By: Cornelia Murillo on 01-26-2025 Creatinine [Mass/Vol] 1.09 mg/dL 0.70-1.20 [facility] Serum glucose measurement (m ass/volume)Ordered By: Cornelia Murillo on 01-26-2025 Glucose [Mass/Vol] 139 mg/dL High 70-99 [facility] Serum or plasma calcium gavi urement (mass/volume)Ordered By: Cornelia Murillo on 01-26-2025 Calcium [Mass/Vol] 9.4 mg/dL 7.6-11.0 [facility] Serum or plasma urea nitroge n measurement (mass/volume)Ordered By: Cornelia Murillo on 01-26-2025 Urea nitrogen [Mass/Vol] 25 mg/dL High 4-19 [facility] Sodium levelOrdered By: Kyle Murillo on 01-26-2025 Sodium [Moles/Vol] 139 mmol/L 133-145 [facility] Troponin T HS 2 HRon 025 Trop T High Sen 14 ng/L Normal <=14 [facility] Comment on above: Order Comment: WAS S TILL IN ER PAST DUE TIME FOR LABS Performed By: #### L 499.0042 #### [facility] [address] [place], [address] Troponin T HS 4 HRon 025 Trop T High Sen 11 ng/L Normal <=14 [facility] Comment on above: Performed By: #### L 501.9520, L500.4100, L500.2500, L100.0100 #### [facility] [address] [place], [address] Troponin T.cardiac [Mass/vol ume] in Serum or Plasma by High sensitivity methodOrdered By: Dahiana Oakley on 01-26-2025 Troponin T.cardiac High sensitivity method [Mass/Vol] 11 ng/L <14 [facility] Troponin T.cardiac High sensitivity method [Mass/Vol] 14 ng/L <14 [facility] Troponin T.cardiac High sensitivity method [Mass/Vol] 15 ng/L High <14 [facility] Comment on above: Delta: 14 on 5-1215 White blood cell (WBC) count Ordered By: Dahiana Oakley on 01-26-2025 WBC (Bld) [#/Vol] 6.0 10*3/uL 4.4-11.0 [facility] Echo Complete W/ Contraston 01-19-2025 Echo Complete W/ Contrast [facility] [address] [place] [address] Echo Complete W/ Contrast 01/19/25 1509 MR#: [id number] Acct: [id number] Name: THIAGO PIERRE Rep #: [id number] : 1955 69 From: Misbah Marcum MD Attending Dr: Dr. Misbah Marcum MD Status: RAHAT GARCIA Ordering Dr: Misbah Marcum MD Date: 01/19/25 Location: [facility] Sex: F C Admitted: Reason For Study Reason For Study: DILATED CARDIOMYOPATHY Procedure This was a 2D Doppler, Color Flow transthoracic echocardiogram. The study was technically difficult. Contrast injection was performed. Exam performed in department. Left Ventricle Normal LV size. Left ventricular systolic function is normal. Stage 1 diastolic dysfunction. The left ventricular ejection fraction is 50 %. No regional wall motion abnormalities noted. Right Ventricle Normal RV size. Normal systolic function. Atria Normal left atrium. Normal right atrium. Mitral Valve Normal mitral valve. Tricuspid Valve Normal tricuspid valve. Mild tricuspid valve insufficiency. Pulmonary artery systolic pressure is 20 mmHg. Aortic Valve Trisinus/trileaflet aortic valve. Pulmonic Valve The pulmonic valve is not well visualized. Great Vessels Normal aortic root. The pulmonary artery is normal size. Inferior vena cava collapse with respiration. Pericardium/Pleural No pericardial effusion. Medication 22 gauge I.V. with prn adaptor inserted into left arm. Diluted definity 3.5ml given slow IV push to enhance endocardial definition. MMode/2D Measurements Calculations LVIDd: 5.3 cm IVSd: 1.1 cm LVOT diam: 2.2 cm LVIDs: 4.0 cm LVPWd: 1.1 cm RVDd: 3.5 cm FS: 25.2 % LVOT area: 3.7 cm2 asc Aorta Diam: 3.4 cm LAV(MOD-bp): 46.2 ml LVAd ap4: 36.3 cm2 LAV(MOD-bp) Indexed: 21.0 ml/m2 LVLd ap4: 8.1 cm LAV(MOD-sp2): 48.5 ml EDV(MOD-sp4): 137.9 ml LAV(MOD-sp4): 45.8 ml EDV(sp4-el): 138.3 ml LVAs ap4: 24.6 cm2 LVLs ap4: 6.8 cm ESV(MOD-sp4): 74.9 ml ESV(sp4-el): 75.7 ml EF(MOD-sp4): 45.7 % EF(sp4-el): 45.3 % LVAd ap2: 26.1 cm2 SV(MOD-sp4): 63.0 ml SV(MOD-sp2): 21.8 ml LVLd ap2: 7.9 cm SI(MOD-sp4): 28.7 ml/m2 SI(MOD-sp2): 9.9 ml/m2 EDV(MOD-sp2): 69.9 ml EDV(sp2-el): 72.8 ml LVAs ap2: 20.2 cm2 LVLs ap2: 7.1 cm ESV(MOD-sp2): 48.1 ml ESV(sp2-el): 48.9 ml EF(MOD-sp2): 31.2 % SV(sp4-el): 62.6 ml Ao sinus diam: 3.[address] Junction: 2.4 cm LA dimension(2D): 4.3 cm LA A4 area: 18.1 cm2 RA A4 area: 9.6 cm2 TAPSE: 1.5 cm Time Measurements MV dec time: 0.24 sec Doppler Measurements Calculations MV E max ld: 57.9 cm/sec Lat Peak E' Ld: 6.2 cm/sec Med Peak E' Ld: 11.6 cm/sec MV A max ld: 91.2 cm/sec E/E' lat: 9.4 E/E' med: 5.0 MV E/A: 0.63 MV dec slope: 237.7 cm/sec2 Ao V2 max: 148.7 cm/sec LV V1 max: 114.0 cm/sec Ao max P.9 mmHg LV V1 max P.2 mmHg Ao V2 mean: 112.6 cm/sec LV V1 mean P.5 mmHg Ao mean P.3 mmHg LV V1 mean: 91.6 cm/sec Ao V2 VTI: 31.8 cm LV V1 VTI: 25.1 cm AV (velocity ratio): 0.79 DEBRA(I,D): 2.9 cm2 DEBRA(V,D): 2.8 cm2 SV(LVOT): 91.6 ml PA V2 max: 91.8 cm/sec TR max ld: 203.8 cm/sec TR max P.6 mmHg ECHO/Echo Complete W/ Contrast Interpretation Summary Normal LV size. Left ventricular systolic function is normal. Stage 1 diastolic dysfunction. The left ventricular ejection fraction is 50 %. Contrast injection was performed. Ordering Physician: Misbah Marcum Referring Physician: Misbah Marcum MD Performed By: Filomena Arceo, RDCS 01/19/25 1738 Date Misbah Marcum MD CC: [facility] HUMAN RESOURCES MANAGER MANUFACTURING-[employer] Sarah Toth; Dr. Misbah Marcum MD Date Dictated: 01/19/251508 Date Transcribed: 01/19/251738 Charger Tester: Signed Normal [facility] Echocardiogram study reportO rdered By: Misbah Marcum on 01-19-2025 Study report [facility] [address] [place] [address] Echo Complete W/ Contrast 01/19/25 1509 MR#: [id number] Acct: [id number] Name: THIAGO PIERRE Rep #:[id number] : 1955 69 From: Misbah Watson Attending Dr: Dr. Misbah Marcum MD S tatus: REG CLI Ordering Dr: Misbah Marcum MD Date: 05/05 Location: [facility] Sex: F C Admitted: Reason For Study Reason For Study: DILATED CARDIOMYOPATHY Procedure This was a 2D Doppler, Color Flow transthoracic echocardiogram. The study was technically difficult. Contrast injection was performed. Exam performed in department. Left Ventricle Normal LV size. Left ventricular systolic function is normal. Stage 1 diastolic dysfunction. The left ventricular ejection fraction is 50 %. No regional wall motion abnormalities noted. Right Ventricle Normal RV size. Normal systolic function. Atria Normal left atrium. Normal right atrium. Mitral Valve Normal mitral valve. Tricuspid Valve Normal tricuspid valve. Mild tricuspid valve insufficiency. Pulmonary artery systolic pressure is 20 mmHg. Aortic Valve Trisinus/trileaflet aortic valve. Pulmonic Valve The pulmonic valve is not well visualized. Great Vessels Normal aortic root. The pulmonary artery is normal size. Inferior vena cava collapse with respiration. Pericardium/Pleural No pericardial effusion. Medication 22 gauge I.V. with prn adaptor inserted into left arm. Diluted definity 3.5ml given slow IV push to enhance endocardial definition. MMode/2D Measurements & Calculations LVIDd: 5.3 cm IVSd: 1.1 cm LVOT diam: 2.2 cm LVIDs: 4.0 cm LVPWd: 1.1 cm RVDd: 3.5 cm FS: 25.2 % LVOT area: 3.7 cm2 asc Aorta Diam: 3.4 cm LAV(MOD-bp): 46.2 ml LVAd ap4: 36.3 cm2 LAV(MOD-bp) Indexed: 21.0 ml/m2 LVLd ap4: 8.1 cm LAV(MOD-sp2): 48.5 ml EDV(MOD-sp4): 137.9 ml LAV(MOD-sp4): 45.8 ml EDV(sp4-el): 138.3 ml LVAs ap4: 24.6 cm2 LVLs ap4: 6.8 cm ESV(MOD-sp4): 74.9 ml ESV(sp4-el): 75.7 ml EF(MOD-sp4): 45.7 % EF(sp4-el): 45.3 % LVAd ap2: 26.1 cm2 SV(MOD-sp4): 63.0 ml SV(MOD-sp2): 21.8 ml LVLd ap2: 7.9 cm SI(MOD-sp4): 28.7 ml/m2 SI(MOD-sp2): 9.9 ml/m2 EDV(MOD-sp2): 69.9 ml EDV(sp2-el): 72.8 ml LVAs ap2: 20.2 cm2 LVLs ap2: 7.1 cm ESV(MOD-sp2): 48.1 ml ESV(sp2-el): 48.9 ml EF(MOD-sp2): 31.2 % SV(sp4-el): 62.6 ml Ao sinus diam: 3.[address] Junction: 2.4 cm LA dimension(2D): 4.3 cm LA A4 area: 18.1 cm2 RA A4 area: 9.6 cm2 TAPSE: 1.5 cm Time Measurements MV dec time: 0.24 sec Doppler Measurements & Calculations MV E max ld: 57.9 cm/sec Lat Peak E' Ld: 6.2 cm/sec Med Peak E' Ld: 11.6 cm/sec MV A max ld: 91.2 cm/sec E/E' lat: 9.4 E/E' med: 5.0 MV E/A: 0.63 MV dec slope: 237.7 cm/sec2 Ao V2 max: 148.7 cm/sec LV V1 max: 114.0 cm/sec Ao max P.9 mmHg LV V1 max P.2 mmHg Ao V2 mean: 112.6 cm/sec LV V1 mean P.5 mmHg Ao mean P.3 mmHg LV V1 mean: 91.6 cm/sec Ao V2 VTI: 31.8 cm LV V1 VTI: 25.1 cm AV (velocity ratio): 0.79 DEBRA(I,D): 2.9 cm2 DEBRA(V,D): 2.8 cm2 SV(LVOT): 91.6 ml PA V2 max: 91.8 cm/sec TR max ld: 203.8 cm/sec TR max P.6 mmHg ECHO/Echo Complete W/ Contrast Interpretation Summary Normal LV size. Left ventricular systolic function is normal. Stage 1 diastolic dysfunction. The left ventricular ejection fraction is 50 %. Contrast injection was performed. Ordering Physician: Msibah Marcum Referring Physician: Misbah Marcum MD Performed By: Filomena Arceo RDCS 01/19/25 1738 Date _ Misbah Marcum MD CC: [facility] HUMAN RESOURCES MANAGER MANUFACTURING[employer] Sarah Toth; Dr. Misbah Marcum MD ~ Date Dictated: 01/19/25 1509 Date Transcribed: 01/19/25 173 Charger Tester: Signed [facility] Work Phone: Emergency Department Summary on 12-28-2024 Emergency Department Summary [facility] Medical Records Department [address] [place] [address] Emergency Department Summary 12/28/24 MR#: [id number] Acct: [id number] Name: THIAGO PIERRE Rep #: [id number] : 1955 69 From: Rhea Barber DO PCP: [facility] Long, HUMAN RESOURCES MANAGER MANUFACTURING-C Status:DEP ER Location: ED HPI History of Present Illness Chief Complaint: Rash Detail of Chief Complaint: Rash Informant: patient Narrative Narrative: Patient presents with a rash to her right upper arm for 2 days. It is red and she feels like it spreading and itchy. Somewhat burning sensation. She has not been immunized against shingles. She denies any contact exposures. She has not worked in the yard. Denies any new medications or soaps or detergents. Patient also has a small lesion on her left lateral thigh that she thinks was a bug bite that she woke up with 3 days ago. [facility] Medical History Essential hypertension Elevated troponin History of diabetes mellitus Hx of cardiomyopathy Dysarthria Medication reaction Intractable nausea and vomiting Dizziness Depression Near syncope Vertigo Carotid artery disease Pure hypercholesterolemia Atherosclerotic heart disease of nikolai coronary artery without angina pectoris Nonrheumatic mitral (valve) insufficiency Dilated cardiomyopathy Chronic systolic (congestive) heart failure BALWINDER (acute kidney injury) Abnormal electrocardiogram Systolic CHF, acute Hypertension Hyperlipidemia Diabetes mellitus, type II NICOLLE (obstructive sleep apnea) Home Medications ???Medication ???Instructions ???Recorded ???Last Taken ???Type aspirin 81 mg tablet,delayed 81 mg PO DAILY@0800 HEALTH 7 11/29/24 History release MAINTENANCE magnesium chloride 71.5 mg 71.5 mg PO DAILY suppliment 11/30/24 History (magnesium chloride) tablet,delayed release (Slow-Mag) meclizine 25 mg tablet 25 mg PO TID PRN dizziness 1 11/30/24 History Handicap Parking Placard #1 ea 05/09/22 Unknown Rx cyclobenzaprine 10 mg tablet 10 mg PO TID PRN Muscle Spasm 11/0 12/0211/30/24 History gabapentin 300 mg capsule 300 mg PO DAILY NERVE PAIN 5 11/30/24 History Humalog KwikPen Insulin 100 15 unit (0.15 mL) subcut TID #54 m L 10/31/24 11/30/24 Rx unit/mL subcutaneous (insulin lispro) sacubitril 97 mg-valsartan 103 mg 1 tab PO BID HF #180 tabs 5 11/30/24 Rx tablet (Entresto) furosemide 20 mg tablet 20 mg PO QDAY water pill #90 tabs 11/17/24 11/30/24 Rx tirzepatide 2.5 mg/0.5 mL 2.5 mg (0.5 mL) subcut QWEEK #2 mL 11/27/24 11/26/24 Rx subcutaneous pen injector (Abdirashid) amlodipine 10 mg tablet 10 mg PO DAILY 11/30/24 11/30/24 H istory carvedilol 25 mg tablet 25 mg PO DAILY 11/30/24 11/30/24 H istory cholecalciferol (vitamin D3) 1,250 1,250 mcg PO QWEEK 11/30/2411/09 History mcg (50,000 unit) capsule dapagliflozin propanediol 10 mg 10 mg PO DAILY 11/30/24 11/30/24 H istory tablet (Farxiga) gabapentin 300 mg capsule 600 mg PO QHS 11/30/24 11/29/24 Hi story insulin degludec 100 unit/mL (3 18 unit subcut Q24H diabetes 11/3011/30/24 History mL) subcutaneous pen (Tresiba FlexTouch U-100 insulin) cephalexin 500 mg capsule 500 mg PO Q8H #21 caps 12/28/24 Un known Rx famciclovir 500 mg tablet 500 mg PO Q8H 7 days #21 tabs 12/10 Unknown Rx prednisone 20 mg tablet 20 mg PO BID #10 tabs 12/28/24 Unk nown Rx Allergy/AdvReac Type Severity Reaction Status Date / Time red dye Allergy Hives Verified 12/28/24 15:41 Werczcl-JVU-PvX Reductase AdvReac Severe Myalgias Verified 12/28/24 15:41 Inhibitor (Npmsnuw-Vxv-Jpy Reductase Inhibitor) Family History Father , Lung [...] safe at home: Yes ROS ROS ED Review of Systems ROS Unobtainable: other Constitutional Constitutional ED: Reports lethargy; Denies chills, fever(s), sweats or weight loss Eyes Eyes: Denies blurry vision, (more content not included)... Normal [facility] Cardiology Visit Reporton Cardiology Visit Report [facility] [address] [place] [address] OFFICE VISIT Date of Service: 12/25/24 MR#: [id number] Acct: [id number] Name: THIAGO PIERRE Rep #: [id number] : 1955 Provider: Dr. Misbah Marcum MD Age/Sex: 69/F Location: [facility] Status: Signed HPI HPI History of Present Illness Details: THIAGO FLORES, is a 69 year old white female who presents to the office today for an outpatient cardiovascular hospital follow-up visit. 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 She will have her echocardiogram rechecked. From a cardiac standpoint, patient is doing [...] any symptoms of claudication. Intake Vital Signs 07/02/24 13:02 11/30/24 11:39 12/25/24 14:36 Height 5 ft 4 in 5 ft 4 in 5 ft 4 in Weight: 263 lb BMI 45.1 BP 124/72 H Blood Pressure Location Lt radial Position Sitting Respiration 16 Pulse 60 Pulse Source Monitor Intake Visit Reasons: 6 M Tower Observer Required: No Accompanied by: Self Is patient in pain?: No Allergies red dye Allergy (Verified 12/25/24 14:41) Hives Afvpxmb-GXP-SmP Reductase Inhibitor (Lmneomp-Gvj-Ktg Reductase Inhibitor) Adverse Reaction (Severe, Verified 12/25/24 14:41) Myalgias Medications ???Medication ???Instructions ???Recorded ???Confirmed ???Type aspirin 81 mg tablet,delayed 81 mg PO DAILY@0800 HEALTH 7 12/25/24 History release MAINTENANCE magnesium chloride 71.5 mg 71.5 mg PO DAILY suppliment 12/25/24 History (magnesium chloride) tablet,delayed release (Slow-Mag) meclizine 25 mg tablet 25 mg PO TID PRN dizziness 1 12/25/24 History Handicap Parking Placard #1 ea 05/09/22 10/23/24 Rx cyclobenzaprine 10 mg tablet 10 mg PO TID PRN Muscle Spasm 11/0 12/0212/25/24 History gabapentin 300 mg capsule 300 mg PO DAILY NERVE PAIN 5 12/25/24 History Humalog KwikPen Insulin 100 15 unit (0.15 mL) subcut TID #54 m L 10/31/24 12/25/24 Rx unit/mL subcutaneous (insulin lispro) sacubitril 97 mg-valsartan 103 mg 1 tab PO BID HF #180 tabs 5 12/25/24 Rx tablet (Entresto) furosemide 20 mg tablet 20 mg PO QDAY water pill #90 tabs 11/17/24 12/25/24 Rx tirzepatide 2.5 mg/0.5 mL 2.5 mg (0.5 mL) subcut QWEEK #2 mL 11/27/24 12/25/24 Rx subcutaneous pen injector (Mounjaro) amlodipine 10 mg tablet 10 mg PO DAILY 11/30/24 12/25/24 H istory carvedilol 25 mg tablet 25 mg PO DAILY 11/30/24 12/25/24 H istory cholecalciferol (vitamin D3) 1,250 1,250 mcg PO QWEEK 11/30/2412/09 History mcg (50,000 unit) capsule dapagliflozin propanediol 10 mg 10 mg PO DAILY 11/30/24 12/25/24 H istory tablet (Farxiga) gabapentin 300 mg capsule 600 mg PO QHS 11/30/24 12/25/24 Hi story insulin degludec 100 unit/mL (3 18 unit subcut Q24H diabetes 11/3012/25/24 History mL) subcutaneous pen (Tresiba FlexTouch U-100 insulin) Have you fallen in the past year?: No [facility] Medical History Essential hypertension Elevated troponin History of diabetes mellitus Hx of cardiomyopathy Dysarthria Medication reaction Intractable nausea and vomiting Dizziness Depression Near syncope Vertigo Carotid artery disease Pure hypercholesterolemia Atherosclerotic heart disease of nikolai coronary artery without angina pectoris Nonrheumatic mitr (more content not included)... Normal [facility] 12 Lead EKGon 11-30-2024 12 Lead EKG [facility] [address] [place] [address] 12 Lead EKG 11/30/24 1200 MR#: [id number] Acct: [id number] Name: THIAGO PIERRE Rep #: [id number] : 1955 69 From: Misbah Marcum MD Attending Dr: Status: DEP ER Ordering Dr: Juventino Kern MD Date: 11/30/24 Location: ED Sex: F C Admitted: Test Reason : SOB Blood Pressure : */* mmHG Vent. Rate : 60 BPM Atrial Rate : 60 BPM P-R Int : * ms QRS Dur : 164 ms QT Int : 486 ms P-R-T Axes : * -38 99 degrees QTcB Int : 486 ms AV dual-paced rhythm Biventricular pacemaker detected Abnormal ECG Confirmed by MISBAH MARCUM MD ([id number]), communications editor SMITH LOPEZ ([id number]) on 12/02/2024 6:45:36 AM Referred By: Confirmed By: MISBAH MARCUM MD 12/02/2445 Date Misbah Marcum MD CC: [facility] HUMAN RESOURCES MANAGER MANUFACTURING-C Sarah Toth; Dr. Juventino Kern MD Signed Normal [facility] Absolute lymphocyte countOrd ered By: Juventino Kern on 11-30-2024 Lymphocytes Auto (Unsp spec) [#/Vol] 2.21 10*3/uL 0.83-4.51 [facility] Absolute neutrophil countOrd ered By: Juventinocorinne Kern on 11-30-2024 Neutrophils (Bld) [#/Vol] 3.6 10*3/uL 2.0-7.7 [facility] Anion gap in Serum or Plasma Ordered By: Juventino Kern on 11-30-2024 Anion gap [Moles/Vol] 13 mmol/L 5-15 [facility] Automated lymphocyte count a s percentage of total leukocytesOrdered By: Juventino Kern on 11-30-2024 Lymphocytes/100 WBC Auto (Unsp spec) 34.7 % 19-41 [facility] BUN/creatinine ratioOrdered By: Juventinocorinne Kern on 11-30-2024 Urea nitrogen/Creatinine [Mass ratio] 21.4 mg/mg High 03-30 [facility] Basic Metabolic Profile (BMP )on 11-30-2024 BUN/CRE 21.4 RATIO High 03-30 [facility] Comment on above: Performed By: #### L 501.8357, L500.4100, L500.2500, L100.0100 #### [facility] [address] [place], [address] Calcium [Mass/Vol] 9.0 mg/dL Normal 7.6-11.0 [facility] Comment on above: Performed By: #### L 501.9520, L500.4100, L500.2500, L100.0100 #### [facility] [address] [place], [address] Chloride [Moles/Vol] 97 mmol/L Low 98-108 [facility] Comment on above: Performed By: #### L 501.9520, L500.4100, L500.2500, L100.0100 #### [facility] [address] [place], [address] CO2 [Moles/Vol] 23.7 mmol/L Normal 21.0-32.0 [facility] Comment on above: Performed By: #### L 501.9520, L500.4100, L500.2500, L100.0100 #### [facility] [address] [place], [address] Creatinine [Mass/Vol] 1.33 mg/dL High 0.70-1.20 [facility] Comment on above: Performed By: #### L 501.9520, L500.4100, L500.2500, L100.0100 #### [facility] [address] [place], [address] ECRCL 49.10 ml/min Low 50-250 [facility] Comment on above: Performed By: #### L 501.9520, L500.4100, L500.2500, L100.0100 #### [facility] [address] [place], [address] GAP 13 Normal 5-15 [facility] Comment on above: Performed By: #### L 501.9520, L500.4100, L500.2500, L100.0100 #### [facility] [address] [place], [address] GFR/1.73 sq M.predicted among non-blacks MDRD (S/P/Bld) [Vol rate/Area] 43 mL/min/{1.73_m2} Low >60 [facility] Comment on above: Result Comment: mL/m in/1.73m2 CKD-EPI Creatinine Equation (2020) Performed By: #### L 501.9520, L500.4100, L500.2500, L100.0100 #### [facility] [address] [place], [address] Glucose [Mass/Vol] 262 mg/dL High 70-99 [facility] Comment on above: Performed By: #### L 501.9520, L500.4100, L500.2500, L100.0100 #### [facility] [address] [place], [address] Potassium [Moles/Vol] 4.3 mmol/L Normal 3.3-5.1 [facility] Comment on above: Performed By: #### L 501.9520, L500.4100, L500.2500, L100.0100 #### [facility] [address] [place], [address] Sodium [Moles/Vol] 134 mmol/L Normal 133-145 [facility] Comment on above: Performed By: #### L 501.9520, L500.4100, L500.2500, L100.0100 #### [facility] [address] [place], [address] Urea nitrogen [Mass/Vol] 28 mg/dL High 4-19 [facility] Comment on above: Performed By: #### L 501.9520, L500.4100, L500.2500, L100.0100 #### [facility] [address] [place], [address] Basophil percentageOrdered B y: Juventino Kern on 11-30-2024 Basophils/100 WBC (Bld) 0.6 % 0-1 [facility] CBC W/Diff, Automatedon 11-10 Absolute Lymph 2.21 X10 3/uL Normal 0.83-4.51 [facility] Comment on above: Performed By: #### L 501.9520, L500.4100, L500.2500, L100.0100 #### [facility] [address] [place], [address] Absolute Neut 3.6 X10 3/uL Normal 2.0-7.7 [facility] Comment on above: Performed By: #### L 501.9520, L500.4100, L500.2500, L100.0100 #### [facility] [address] [place], [address] Basophils/100 WBC (Bld) 0.6 % Normal 0-1 [facility] Comment on above: Performed By: #### L 501.9520, L500.4100, L500.2500, L100.0100 #### [facility] [address] [place], [address] Eosinophils/100 WBC (Bld) 2.2 % Normal 0-5 [facility] Comment on above: Performed By: #### L 501.9520, L500.4100, L500.2500, L100.0100 #### [facility] [address] [place], [address] Erythrocyte distribution width (RBC) [Ratio] 12.9 % Normal 11.6-14.6 [facility] Comment on above: Performed By: #### L 501.9520, L500.4100, L500.2500, L100.0100 #### [facility] [address] [place], [address] Hematocrit (Bld) [Volume fraction] 40.0 % Normal 37-47 [facility] Comment on above: Performed By: #### L 501.9520, L500.4100, L500.2500, L100.0100 #### [facility] [address] [place], [address] Hemoglobin (Bld) [Mass/Vol] 13.4 g/dL Normal 12.0-15.0 [facility] Comment on above: Performed By: #### L 501.9520, L500.4100, L500.2500, L100.0100 #### [facility] [address] [place], [address] IG% 0.300 Normal 0.0-0.9 [facility] Comment on above: Result Comment: IG% - Immature Granulocytes (promyelocytes, myelocytes and metamyelocytes) > 1% indicates that a LEFT SHIFT is Present. Performed By: #### L 501.9520, L500.4100, L500.2500, L100.0100 #### [facility] [address] [place] [place], [address] Lymphocytes/100 WBC (Bld) 34.7 % Normal 19-41 [facility] Comment on above: Performed By: #### L 501.9520, L500.4100, L500.2500, L100.0100 #### [facility] [address] [place], [address] MCH (RBC) [Entitic mass] 29.1 pg Normal 27.0-32.0 [facility] Comment on above: Performed By: #### L 501.9520, L500.4100, L500.2500, L100.0100 #### [facility] [address] [place], [address] MCHC (RBC) [Mass/Vol] 33.5 g/dL Normal 32-36 [facility] Comment on above: Performed By: #### L 501.9520, L500.4100, L500.2500, L100.0100 #### [facility] [address] [place], [address] MCV (RBC) [Entitic vol] 86.8 fL Normal 81-99 [facility] Comment on above: Performed By: #### L 501.9520, L500.4100, L500.2500, L100.0100 #### [facility] [address] [place], [address] Monocytes/100 WBC (Bld) 5.3 % Normal 0-10 [facility] Comment on above: Performed By: #### L 501.9520, L500.4100, L500.2500, L100.0100 #### [facility] [address] [place], [address] Neutrophils/100 WBC (Bld) 56.9 % Normal 47-70 [facility] Comment on above: Performed By: #### L 501.9520, L500.4100, L500.2500, L100.0100 #### [facility] [address] [place], [address] Nucleated RBC (Bld) [#/Vol] 0 10*3/uL Normal 0-5 [facility] Comment on above: Performed By: #### L 501.9520, L500.4100, L500.2500, L100.0100 #### [facility] [address] [place], [address] Platelet mean volume (Bld) [Entitic vol] 9.2 fL Normal 6.2-12.0 [facility] Comment on above: Performed By: #### L 501.9520, L500.4100, L500.2500, L100.0100 #### [facility] [address] [place], [address] Platelets (Bld) [#/Vol] 280 10*3/uL Normal 150-450 [facility] Comment on above: Performed By: #### L 501.9520, L500.4100, L500.2500, L100.0100 #### [facility] [address] [place] [place], [address] RBC (Bld) [#/Vol] 4.61 10*6/uL Normal 4.2-5.4 [facility] Comment on above: Performed By: #### L 501.9520, L500.4100, L500.2500, L100.0100 #### [facility] [address] [place], [address] RDW SD 40.4 fl Normal 35.1-43.9 [facility] Comment on above: Performed By: #### L 501.9520, L500.4100, L500.2500, L100.0100 #### [facility] [address] [place] [place], [address] WBC (Bld) [#/Vol] 6.4 10*3/uL Normal 4.4-11.0 [facility] Comment on above: Performed By: #### L 501.9520, L500.4100, L500.2500, L100.0100 #### [facility] [address] [place] [place], [address] Carbon dioxide, total [Moles /volume] in Central venous bloodOrdered By: Juventino Kern on 11-30-2024 CO2 [Moles/Vol] 23.7 mmol/L 21.0-32.0 [facility] Chest PA and Lateralon 11-30 Chest PA and Lateral [facility] Services [address] [place] [address] Chest PA and Lateral MR#: [id number] Acct: [id number] Name: THIAGO PIERRE Rep #: [id number] : 1955 F 69 From: Andree Pierson nd, MD PCP: ARIA Long, HUMAN RESOURCES MANAGER MANUFA[employer]URING-C Status: REG ER Study: Chest PA and Lateral Date of Exam: 11/30/24 Exam# [id number] Ordering Dr: Juventino Kern MD PROCEDURE: CHEST PA AND LATERAL [...] Lateral IMPRESSION: NO ACUTE FINDINGS. Reading Location: [id number] CC: [facility] HUMAN RESOURCES MANAGER [employer]FA[employer]ING-C Sarah Toth; Dr. Juventino Kern MD Charger Tester: Signed Normal [facility] Chloride assayOrdered By: Annetta Kern on 11-30-2024 Chloride [Moles/Vol] 97 mmol/L Low 98-108 [facility] Emergency Department Summary on 11-30-2024 Emergency Department Summary [facility] Medical Records Department [address] [place] [address] Emergency Department Summary 11/30/24 MR#: [id number] Acct: [id number] Name: THIAGO PIERRE Rep #: [id number] : 1955 69 From: Juventino Kern MD PCP: ARIA Long, HUMAN RESOURCES MANAGER [employer]UFA[employer]URING-C Status:REG ER Location: ED HPI History of Present Illness Chief Complaint: Shortness of Breath Detail of Chief Complaint: Dyspnea, MCKEON, orthopnea and edema Informant: patient Onset/Context/Timing Onset: Days (3 days prior to presentation) Context: sudden Timing: Continuous Quality: Positive for Dyspnea on exertion and Orthopnea (3 pillow); Negative for PND or Wheezing Current Severity: Mild Maximum Severity: [...] heart failure who presents with dyspnea that started 3 days ago. She reports increased dyspnea with activity. She has difficulty going up or down steps. She now has 3 pillow orthopnea. She states she doubled her dose of Lasix with no improvement. She denies chest pressure, tightness or heaviness. She denies chest discomfort with activity. She denies fever, chills night sweats. She denies upper respiratory tract infectious symptoms. She denies GI symptoms. She denies symptoms. Review of prior records indicates she has history of obstructive sleep apnea as well. There is also history of dilated cardiomyopathy. Last visit to open hearth helper patient was seen by CHAPIN Tristan. 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 Patient [...] Recent travel Prior similar symptoms: Yes Recent Illness/Hospitalization : No PFSH PFSH Medical History Essential hypertension Elevated troponin History of diabetes mellitus Hx of cardiomyopathy Dysarthria Medication reaction Intractable nausea and vomiting Dizziness Depression Near syncope Vertigo Carotid artery disease Pure hypercholesterolemia Atherosclerotic heart disease of nikolai coronary artery without angina pectoris Nonrheumatic mitral (valve) insufficiency Dilated cardiomyopathy Chronic systolic (congestive) heart failure BALWINDER (acute kidney injury) Abnormal electrocardiogram Systolic CHF, acute Hypertension Hyperlipidemia Diabetes mellitus, type II NICOLLE (obstructive sleep apnea) Home Medications ???Medication ???Instructions ???Recorded ???Last Taken ???Type aspirin 81 mg tablet,delayed 81 mg PO DAILY@0800 HEALTH 7 11/29/24 History release MAINTENANCE magnesium chloride 71.5 mg 71.5 mg PO DAILY suppliment 11/30/24 History (magnesium chloride) tablet,delayed release (Slow-Mag) meclizine 25 mg tablet 25 mg PO TID PRN dizziness 1 11/30/24 History Handicap Parking Placard #1 ea 05/09/22 Unknown Rx cyclobenzaprine 10 mg tablet 10 mg PO TID PRN Muscle Spasm 11/0 12/0211/30/24 History gabapentin 300 mg capsule 300 mg PO DAILY NERVE PAIN 5 11/30/24 History Humalog KwikPen Insulin 100 15 unit (0.15 mL) subcut TID #54 m L 10/31/24 11/30/24 Rx unit/mL subcutaneous (insulin lispro) sacubitril 97 mg-valsartan 103 mg 1 tab PO BID HF #180 tabs 5 11/30/24 Rx tablet (Entresto) furosemide 20 mg tablet 20 mg PO QDAY water pill #90 tabs 11/17/24 11/30/24 Rx tirzepatide 2.5 mg/0.5 mL 2.5 mg (0.5 mL) subcut QWEEK #2 mL 11/27/24 11/26/24 Rx subcutaneous pen injector (Mounjaro) amlodipine 10 mg tablet 10 mg PO DAILY 11/30/24 11/30/24 H istory carvedilol 25 mg tablet 25 mg PO DAILY 11/30/24 11/30/24 H istory cholecalciferol (vitamin D3) 1,250 1,250 mcg PO QWEEK 11/30/2411/09 History mcg (50,000 unit) capsule dapagliflozin propanediol 10 mg 10 mg PO DAILY 11/30/24 11/30/24 H istor (more content not included)... Normal [facility] Eosinophil percentageOrdered By: Juventino Kern on 11-30-2024 Eosinophils/100 WBC (Bld) 2.2 % 0-5 [facility] Erythrocyte distribution wid th ratioOrdered By: Juventino Kern on 11-30-2024 Erythrocyte distribution width (RBC) [Ratio] 12.9 % 11.6-14.6 [facility] Erythrocyte distribution wid th standard deviationOrdered By: Juventino Kern on 11-30-2024 Erythrocyte distribution width (RBC) [Ratio] 40.4 fl 35.1-43.9 [facility] Glomerular filtration rate ( GFR) estimation/1.73 sq m using serum, plasma, or whole bOrdered By: Juventino Kern on 11-30-2024 GFR/1.73 sq M.predicted among non-blacks MDRD (S/P/Bld) [Vol rate/Area] 43 mL/min/{1.73_m2} Low >60 [facility] Comment on above: mL/min/1.73m2 CKD-EP I Creatinine Equation (2020) Hematocrit Auto (Bld) [Volum e fraction]Ordered By: Juventinocorinne Kern on 11-30-2024 Hematocrit (Bld) [Volume fraction] 40.0 % 37-47 [facility] Hemoglobin measurementOrdere d By: Juventinocorinne Kern on 11-30-2024 Hemoglobin (Bld) [Mass/Vol] 13.4 g/dL 12.0-15.0 [facility] Immature granulocytes/100 WB C Auto (Bld)Ordered By: Juventinocorinne Kern on 11-30-2024 Immature granulocytes/100 WBC (Bld) 0.300 % 0.0-0.9 [facility] Comment on above: IG% - Immature Granu locytes (promyelocytes, myelocytes and metamyelocytes) > 1% indicates that a LEFT SHIFT is Present. L499.0042on 11-30-2024 Trop T High Sen 15 ng/L High <=14 [facility] Comment on above: Performed By: #### L 501.9520, L500.4100, L500.2500, L100.0100 #### [facility] [address] [place], [address] L499.0043on 11-30-2024 Trop T High Sen Normal <=14 [facility] Comment on above: Result Comment: Canc elled via OM: Order cancelled - Patient discharged Performed By: #### L 499.0043 #### [facility] [address] [place], [address] L501.4021on 11-30-2024 Trop T High Sen 14 ng/L Normal <=14 [facility] Comment on above: Performed By: #### L 499.0043 #### [facility] [address] [place], [address] L503.7505on 11-30-2024 Natriuretic peptide B (Bld) [Mass/Vol] 172 pg/mL Normal <=900 [facility] Comment on above: Result Comment: Hear t Failure Unlikely: < 300 pg/mL Heart Failure Likely < 50 Years: > 450 pg/mL 50-75 Years: > 900 pg/mL >75 Years: > 1800 pg/mL Performed By: #### L 501.9520, L500.4100, L500.2500, L100.0100 #### [facility] [address] [place], [address] MCV (mean corpuscular volume ) determinationOrdered By: Juventino Kern on 11-30-2024 MCV (RBC) [Entitic vol] 86.8 fL 81-99 [facility] Mean corpuscular hemoglobin (MCH) determinationOrdered By: Juventino Kern on 11-30-2024 MCH (RBC) [Entitic mass] 29.1 pg 27.0-32.0 [facility] Mean corpuscular hemoglobin concentration (MCHC) determinationOrdered By: Juventinocorinne Kern on 11-30-2024 MCHC (RBC) [Mass/Vol] 33.5 g/dL 32-36 [facility] Mean platelet volume determi nationOrdered By: Juventinocorinne Kern on 11-30-2024 Platelet mean volume (Bld) [Entitic vol] 9.2 fL 6.2-12.0 [facility] Monocyte percentageOrdered B y: [facility] on 11-30-2024 Monocytes/100 WBC (Bld) 5.3 % 0-10 [facility] Natriuretic peptide.B prohor akin N-Terminal [Mass/volume] in Serum or PlasmaOrdered By: Juventino Kern on 11-30-2024 Natriuretic peptide.B prohormone N-Terminal [Mass/Vol] 172 pg/mL <900 [facility] Comment on above: Heart Failure Unlike ly: < 300 pg/mLHeart Failure Likely< 50 Years: > 450 pg/mL50-75 Years: > 900 pg/mL>75 Years: > 1800 pg/mL Neutrophil percentageOrdered By: Juventino Kern on 11-30-2024 Neutrophils/100 WBC (Bld) 56.9 % 47-70 [facility] Nucleated red blood cell per centageOrdered By: Juventino Kern on 11-30-2024 Nucleated RBC/100 WBC (Bld) [Ratio] 0 % 0-5 [facility] Platelet countOrdered By: Annetta Kern on 11-30-2024 Platelets (Bld) [#/Vol] 280 10*3/uL 150-450 [facility] Potassium measurement (mass/ volume)Ordered By: Juventino Kern on 11-30-2024 Potassium (Unsp spec) [Mass/Vol] 4.3 mmol/L 3.3-5.1 [facility] RBC Auto (Bld) [#/Vol]Ordere d By: Juventino Kern on 11-30-2024 RBC (Bld) [#/Vol] 4.61 10*6/uL 4.2-5.4 [facility] Serum creatinine measurement (mass/volume)Ordered By: Juventino Kern on 11-30-2024 Creatinine [Mass/Vol] 1.33 mg/dL High 0.70-1.20 [facility] Serum glucose measurement (m ass/volume)Ordered By: Juventino Kern on 11-30-2024 Glucose [Mass/Vol] 262 mg/dL High 70-99 [facility] Serum or plasma calcium gavi urement (mass/volume)Ordered By: Juventino Kern on 11-30-2024 Calcium [Mass/Vol] 9.0 mg/dL 7.6-11.0 [facility] Serum or plasma urea nitroge n measurement (mass/volume)Ordered By: Juventino Kern on 11-30-2024 Urea nitrogen [Mass/Vol] 28 mg/dL High 4-19 [facility] Sodium levelOrdered By: Juventino Kern on 11-30-2024 Sodium [Moles/Vol] 134 mmol/L 133-145 [facility] Troponin T.cardiac [Mass/vol ume] in Serum or Plasma by High sensitivity methodOrdered By: Juventino Kern on 11-30-2024 Troponin T.cardiac High sensitivity method [Mass/Vol] 15 ng/L High <14 [facility] Troponin T.cardiac High sensitivity method [Mass/Vol] 14 ng/L <14 [facility] White blood cell (WBC) count Ordered By: Juventino Kern on 11-30-2024 WBC (Bld) [#/Vol] 6.4 10*3/uL 4.4-11.0 [facility] Endocrinology Visit Reporton 10-23-2024 Endocrinology Visit Report [facility] [address] [place] [address] OFFICE VISIT Date of Service: 10/23/24 MR#: [id number] Acct: [id number] Name: THIAGO PIERRE Rep #: [id number] : 1955 Provider: EVENS gates Age/Sex: 69/F Location: [facility] Status: Signed Intake Vital Signs 07/16/24 14:30 [...] red dye Allergy (Verified 10/23/24 13:57) Hives Pnhffst-ZCE-PsX Reductase Inhibitor (Tzibzgz-Tkv-Nii Reductase Inhibitor) Adverse Reaction (Severe, Verified 10/23/24 [...] Medical History (Updated 10/24/24 @ 10:46 by DEO VasquezC) Essential hypertension Elevated troponin History of diabetes mellitus Hx of cardiomyopathy Dysarthria Medication reaction Intractable nausea and vomiting Dizziness Depression Near syncope Vertigo Carotid artery disease Pure hypercholesterolemia Atherosclerotic heart disease of nikolai coronary artery without angina pectoris Nonrheumatic mitral [...] HPI Chief (more content not included)... Normal [facility] Absolute lymphocyte countOrd ered By: [facility] Sarah Toth on 10-22-2024 Lymphocytes Auto (Unsp spec) [#/Vol] 2.07 10*3/uL 0.83-4.51 [facility] Absolute neutrophil countOrd ered By: [facility] aSrah Toth on 10-22-2024 Neutrophils (Bld) [#/Vol] 3.7 10*3/uL 2.0-7.7 [facility] Anion gap in Serum or Plasma Ordered By: [facility] Sarah Toth on 10-22-2024 Anion gap [Moles/Vol] 12 mmol/L 5-15 [facility] Automated lymphocyte count a s percentage of total leukocytesOrdered By: [facility] Sarah Toth on 10-22-2024 Lymphocytes/100 WBC Auto (Unsp spec) 32.3 % 19- [facility] BUN/creatinine ratioOrdered By: [facility] Sarah Toth on 10-22-2024 Urea nitrogen/Creatinine [Mass ratio] 25.2 mg/mg High 10-20 [facility] Basophil percentageOrdered B y: [facility] Sarah Toth on 10-22-2024 Basophils/100 WBC (Bld) 0.6 % 0-1 [facility] Bilirubin, totalOrdered By: [facility] Sarah Toth on 10-22-2024 Bilirubin [Mass/Vol] 0.76 mg/dL 0.00-1.30 [facility] CBC W/Diff, Automatedon 10-09 Absolute Lymph 2.07 X10 3/uL Normal 0.83-4.51 [facility] Comment on above: Performed By: #### L 100.0100, L500.4050, L506.1001, L501.9520, L500.4100, L501.9985, L502.0500 ####[facility] [address] [facility] [place], [address] Absolute Neut 3.7 X10 3/uL Normal 2.0-7.7 [facility] Comment on above: Performed By: #### L 100.0100, L500.4050, L506.1001, L501.9520, L500.4100, L501.9985, L502.0500 ####[facility] [address] [place], [address] Basophils/100 WBC (Bld) 0.6 % Normal 0-1 [facility] Comment on above: Performed By: #### L 100.0100, L500.4050, L506.1001, L501.9520, L500.4100, L501.9985, L502.0500 ####[facility] [address] [place], [address] Eosinophils/100 WBC (Bld) 2.5 % Normal 0-5 [facility] Comment on above: Performed By: #### L 100.0100, L500.4050, L506.1001, L501.9520, L500.4100, L501.9985, L502.0500 ####[facility] [address] [place], [address] Erythrocyte distribution width (RBC) [Ratio] 12.9 % Normal 11.6-14.6 [facility] Comment on above: Performed By: #### L 100.0100, L500.4050, L506.1001, L501.9520, L500.4100, L501.9985, L502.0500 ####[facility] [address] [place], [address] Hematocrit (Bld) [Volume fraction] 40.7 % Normal 37-47 [facility] Comment on above: Performed By: #### L 100.0100, L500.4050, L506.1001, L501.9520, L500.4100, L501.9985, L502.0500 ####[facility] [address] [place], [address] Hemoglobin (Bld) [Mass/Vol] 13.5 g/dL Normal 12.0-15.0 [facility] Comment on above: Performed By: #### L 100.0100, L500.4050, L506.1001, L501.9520, L500.4100, L501.9985, L502.0500 ####[facility] [address] [place], [address] IG% 0.300 Normal 0.0-0.9 [facility] Comment on above: Result Comment: IG% - Immature Granulocytes (promyelocytes, myelocytes and metamyelocytes) > 1% indicates that a LEFT SHIFT is Present. Performed By: #### L 100.0100, L500.4050, L506.1001, L501.9520, L500.4100, L501.9985, L502.0500 ####[facility] [address] [place], [address] Lymphocytes/100 WBC (Bld) 32.3 % Normal 19-41 [facility] Comment on above: Performed By: #### L 100.0100, L500.4050, L506.1001, L501.9520, L500.4100, L501.9985, L502.0500 ####[facility] [address] [place], [address] MCH (RBC) [Entitic mass] 28.8 pg Normal 27.0-32.0 [facility] Comment on above: Performed By: #### L 100.0100, L500.4050, L506.1001, L501.9520, L500.4100, L501.9985, L502.0500 ####[facility] [address] [place], [address] MCHC (RBC) [Mass/Vol] 33.2 g/dL Normal 32-36 [facility] Comment on above: Performed By: #### L 100.0100, L500.4050, L506.1001, L501.9520, L500.4100, L501.9985, L502.0500 ####[facility] [address] [place], [address] MCV (RBC) [Entitic vol] 86.8 fL Normal 81-99 [facility] Comment on above: Performed By: #### L 100.0100, L500.4050, L506.1001, L501.9520, L500.4100, L501.9985, L502.0500 ####[facility] [address] [place], [address] Monocytes/100 WBC (Bld) 6.1 % Normal 0-10 [facility] Comment on above: Performed By: #### L 100.0100, L500.4050, L506.1001, L501.9520, L500.4100, L501.9985, L502.0500 ####[facility] [address] [place], [address] Neutrophils/100 WBC (Bld) 58.2 % Normal 47-70 [facility] Comment on above: Performed By: #### L 100.0100, L500.4050, L506.1001, L501.9520, L500.4100, L501.9985, L502.0500 ####[facility] [address] [place], [address] Nucleated RBC (Bld) [#/Vol] 0 10*3/uL Normal 0-5 [facility] Comment on above: Performed By: #### L 100.0100, L500.4050, L506.1001, L501.9520, L500.4100, L501.9985, L502.0500 ####[facility] [address] [place], [address] Platelet mean volume (Bld) [Entitic vol] 9.2 fL Normal 6.2-12.0 [facility] Comment on above: Performed By: #### L 100.0100, L500.4050, L506.1001, L501.9520, L500.4100, L501.9985, L502.0500 ####[facility] [address] [place], [address] Platelets (Bld) [#/Vol] 274 10*3/uL Normal 150-450 [facility] Comment on above: Performed By: #### L 100.0100, L500.4050, L506.1001, L501.9520, L500.4100, L501.9985, L502.0500 ####[facility] [address] [place], [address] RBC (Bld) [#/Vol] 4.69 10*6/uL Normal 4.2-5.4 [facility] Comment on above: Performed By: #### L 100.0100, L500.4050, L506.1001, L501.9520, L500.4100, L501.9985, L502.0500 ####[facility] [address] [place], [place], [address] RDW SD 40.4 fl Normal 35.1-43.9 [facility] Comment on above: Performed By: #### L 100.0100, L500.4050, L506.1001, L501.9520, L500.4100, L501.9985, L502.0500 ####[facility] [address] [place], [address] WBC (Bld) [#/Vol] 6.4 10*3/uL Normal 4.4-11.0 [facility] Comment on above: Performed By: #### L 100.0100, L500.4050, L506.1001, L501.9520, L500.4100, L501.9985, L502.0500 ####[facility] [address] [place], [address] Calculated very low density lipoprotein (VLDL) cholesterol measurementOrdered By: [facility] Sarah Toth on 10-22-2024 Calculated very low density lipoprotein (VLDL) cholesterol measurement 36 mg/dL 5-40 [facility] Carbon dioxide, total [Moles /volume] in Central venous bloodOrdered By: [facility] Sarah Toth on 10-22-2024 CO2 [Moles/Vol] 21.5 mmol/L 21.0-32.0 [facility] Chloride assayOrdered By: [facility] Sarah Toth on 10-22-2024 Chloride [Moles/Vol] 102 mmol/L 98-108 [facility] Comprehensive Metabolic Prof ilon 10-22-2024 Albumin [Mass/Vol] 4.0 g/dL Normal 3.4-4.8 [facility] Comment on above: Performed By: #### L 100.0100, L500.4050, L506.1001, L501.9520, L500.4100, L501.9985, L502.0500 ####[facility] [address] [place], [address] Albumin/Globulin [Mass ratio] 1.4 {ratio} Normal 0.9-2.4 [facility] Comment on above: Performed By: #### L 100.0100, L500.4050, L506.1001, L501.9520, L500.4100, L501.9985, L502.0500 ####[facility] [address] [place], [address] ALK PHOS 86 U/L Normal 35-104 [facility] Comment on above: Performed By: #### L 100.0100, L500.4050, L506.1001, L501.9520, L500.4100, L501.9985, L502.0500 ####[facility] [address] [place], [address] ALT [Catalytic activity/Vol] 14 U/L Normal <=34 [facility] Comment on above: Performed By: #### L 100.0100, L500.4050, L506.1001, L501.9520, L500.4100, L501.9985, L502.0500 ####[facility] [address] [place], [address] AST [Catalytic activity/Vol] 16 U/L Normal <=31 [facility] Comment on above: Performed By: #### L 100.0100, L500.4050, L506.1001, L501.9520, L500.4100, L501.9985, L502.0500 ####[facility] [address] [place], [address] Bilirubin [Mass/Vol] 0.76 mg/dL Normal 0.00-1.30 [facility] Comment on above: Performed By: #### L 100.0100, L500.4050, L506.1001, L501.9520, L500.4100, L501.9985, L502.0500 ####[facility] [address] [place], [address] BUN/CRE 25.2 RATIO High 10-20 [facility] Comment on above: Performed By: #### L 100.0100, L500.4050, L506.1001, L501.9520, L500.4100, L501.9985, L502.0500 ####[facility] [address] [place], [address] Calcium [Mass/Vol] 9.1 mg/dL Normal 7.6-11.0 [facility] Comment on above: Performed By: #### L 100.0100, L500.4050, L506.1001, L501.9520, L500.4100, L501.9985, L502.0500 ####[facility] [address] [place], [address] Chloride [Moles/Vol] 102 mmol/L Normal 98-108 [facility] Comment on above: Performed By: #### L 100.0100, L500.4050, L506.1001, L501.9520, L500.4100, L501.9985, L502.0500 ####[facility] [address] [place], [address] CO2 [Moles/Vol] 21.5 mmol/L Normal 21.0-32.0 [facility] Comment on above: Performed By: #### L 100.0100, L500.4050, L506.1001, L501.9520, L500.4100, L501.9985, L502.0500 ####[facility] [address] [place], [place], [id number](308) Creatinine [Mass/Vol] 1.09 mg/dL Normal 0.70-1.20 [facility] Comment on above: Performed By: #### L 100.0100, L500.4050, L506.1001, L501.9520, L500.4100, L501.9985, L502.0500 ####[facility] [address] [place], [place], [id number](041) GAP 12 Normal 5-15 [facility] Comment on above: Performed By: #### L 100.0100, L500.4050, L506.1001, L501.9520, L500.4100, L501.9985, L502.0500 ####[facility] [address] [place], [place], [phone](709) GFR/1.73 sq M.predicted among non-blacks MDRD (S/P/Bld) [Vol rate/Area] 54 mL/min/{1.73_m2} Low >60 [facility] Comment on above: Result Comment: mL/m in/1.73m2 CKD-EPI Creatinine Equation (2020) Performed By: #### L 100.0100, L500.4050, L506.1001, L501.9520, L500.4100, L501.9985, L502.0500 ####[facility] [address] [place], [place], [phone](765) Globulin (S) [Mass/Vol] 2.8 g/dL Normal 2.2-4.2 [facility] Comment on above: Performed By: #### L 100.0100, L500.4050, L506.1001, L501.9520, L500.4100, L501.9985, L502.0500 ####[facility] [address] [place], [address] Glucose [Mass/Vol] 166 mg/dL High 70-99 [facility] Comment on above: Performed By: #### L 100.0100, L500.4050, L506.1001, L501.9520, L500.4100, L501.9985, L502.0500 ####[facility] [address] [place], [address] Potassium [Moles/Vol] 4.7 mmol/L Normal 3.3-5.1 [facility] Comment on above: Performed By: #### L 100.0100, L500.4050, L506.1001, L501.9520, L500.4100, L501.9985, L502.0500 ####[facility] [address] [place], [address] Sodium [Moles/Vol] 135 mmol/L Normal 133-145 [facility] Comment on above: Performed By: #### L 100.0100, L500.4050, L506.1001, L501.9520, L500.4100, L501.9985, L502.0500 ####[facility] [address] [place], [address] T PROT 6.8 g/dL Normal 5.9-8.4 [facility] Comment on above: Performed By: #### L 100.0100, L500.4050, L506.1001, L501.9520, L500.4100, L501.9985, L502.0500 ####[facility] [address] [place], [address] Urea nitrogen [Mass/Vol] 28 mg/dL High 4-19 [facility] Comment on above: Performed By: #### L 100.0100, L500.4050, L506.1001, L501.9520, L500.4100, L501.9985, L502.0500 ####[facility] [address] [place], [place], [id number] Eosinophil percentageOrdered By: [facility] Sarah Toth on 10-22-2024 Eosinophils/100 WBC (Bld) 2.5 % 0-5 [facility] Erythrocyte distribution wid th ratioOrdered By: [facility] Navneet on 10-22-2024 Erythrocyte distribution width (RBC) [Ratio] 12.9 % 11.6-14.6 [facility] Erythrocyte distribution wid th standard deviationOrdered By: [facility] Navneet on 10-22-2024 Erythrocyte distribution width (RBC) [Ratio] 40.4 fl 35.1-43.9 [facility] Glomerular filtration rate ( GFR) estimation/1.73 sq m using serum, plasma, or whole bOrdered By: [facility] on 10-22-2024 GFR/1.73 sq M.predicted among non-blacks MDRD (S/P/Bld) [Vol rate/Area] 54 mL/min/{1.73_m2} Low >60 [facility] Comment on above: mL/min/1.73m2 CKD-EP I Creatinine Equation (2020) Hematocrit Auto (Bld) [Volum e fraction]Ordered By: [facility] Sarah Toth on 10-22-2024 Hematocrit (Bld) [Volume fraction] 40.7 % 37-47 [facility] Hemoglobin A1con 10-22-2024 HbA1c (Bld) [Mass fraction] 7.8 % High <=5.6 [facility] Comment on above: Result Comment: Norm al < 5.7 % Prediabetic 5.7 - 6.4 % Diabetic >or= 6.5 % Please note range changes. Performed By: #### L 100.0100, L500.4050, L506.1001, L501.9520, L500.4100, L501.9985, L502.0500 ####[facility] [address] [place], [place], [phone] Hemoglobin A1c percentageOrd ered By: [facility] Sarahmariluz Toth on 10-22-2024 HbA1c (Bld) [Mass fraction] 7.8 % High <5.7 [facility] Comment on above: Normal < 5.7 % Predi abetic 5.7 - 6.4 % Diabetic >or= 6.5 % Please note range changes. Hemoglobin measurementOrdere d By: [facility] Sarah Navneet on 10-22-2024 Hemoglobin (Bld) [Mass/Vol] 13.5 g/dL 12.0-15.0 [facility] Immature granulocytes/100 WB C Auto (Bld)Ordered By: [facility] Navneet on 10-22-2024 Immature granulocytes/100 WBC (Bld) 0.300 % 0.0-0.9 [facility] Comment on above: IG% - Immature Granu locytes (promyelocytes, myelocytes and metamyelocytes) > 1% indicates that a LEFT SHIFT is Present. LDL calc ser/plasOrdered By: [facility] Navneet on 10-22-2024 Cholesterol in LDL [Mass/Vol] 119 mg/dL [facility] Comment on above: Pvpexsrqny=667-179 m g/dL & Higher Eelb=288 mg/dL or greater Laboratory - Chemistry and C hemistry - challengeOrdered By: [facility] Navneet on 10-22-2024 AST [Catalytic activity/Vol] 16 U/L <32 [facility] Lipid Profileon 10-22-2024 CHOL:HDL 3.93 Normal [facility] Comment on above: Performed By: #### L 100.0100, L500.4050, L506.1001, L501.9520, L500.4100, L501.9985, L502.0500 ####[facility] [address] [place], [place], [phone] Cholesterol [Mass/Vol] 207 mg/dL High <=200 [facility] Comment on above: Result Comment: Chol esterol level, Desirable <200 mg/dL Borderline high cholesterol 200-239 mg/dL High cholesterol >=240 mg/dL Recommendations of the NCEP Adult Treatment Panel for the following risk-cutoff thresholds for the [place] population. Performed By: #### L 100.0100, L500.4050, L506.1001, L501.9520, L500.4100, L501.9985, L502.0500 ####[facility] [address] [place], [address] Cholesterol in HDL [Mass/Vol] 53 mg/dL Normal [facility] Comment on above: Result Comment: Joanie onal Cholesterol Education Program (NCEP) guidelines: <40 mg/dL: Low HDL-cholesterol (major risk factor for CHD) >= 60 mg/dL: High HDL-cholesterol (negative risk factor for CHD) HDL-cholesterol is affected by a number of factors, e.g. smoking, exercise, hormones, sex and age. Performed By: #### L 100.0100, L500.4050, L506.1001, L501.9520, L500.4100, L501.9985, L502.0500 ####[facility] [address] [place], [address] Cholesterol in LDL [Mass/Vol] 119 mg/dL Normal [facility] Comment on above: Result Comment: Bord cxailg=650-610 mg/dL Higher Azaa=933 mg/dL or greater Performed By: #### L 100.0100, L500.4050, L506.1001, L501.9520, L500.4100, L501.9985, L502.0500 ####[facility] [address] [place], [address] Cholesterol in VLDL [Mass/Vol] 36 mg/dL Normal 5-40 [facility] Comment on above: Performed By: #### L 100.0100, L500.4050, L506.1001, L501.9520, L500.4100, L501.9985, L502.0500 ####[facility] [address] [place], [address] Triglyceride [Mass/Vol] 178 mg/dL Normal [facility] Comment on above: Result Comment: The drugs N-Acetylcysteine and Metamizole may falsely depress this assay. Normal range: <150 mg/dL Borderline High: 150-199 mg/dL High: 200-499 mg/dL Very High: >500 mg/dL Performed By: #### L 100.0100, L500.4050, L506.1001, L501.9520, L500.4100, L501.9985, L502.0500 ####[facility] [address] [place], [place], [phone] MCV (mean corpuscular volume ) determinationOrdered By: [facility] Sarah Toth on 10-22-2024 MCV (RBC) [Entitic vol] 86.8 fL 81-99 [facility] Mean corpuscular hemoglobin (MCH) determinationOrdered By: [facility] Sarah Toth on 10-22-2024 MCH (RBC) [Entitic mass] 28.8 pg 27.0-32.0 [facility] Mean corpuscular hemoglobin concentration (MCHC) determinationOrdered By: [facility] Sarah Toth on 10-22-2024 MCHC (RBC) [Mass/Vol] 33.2 g/dL 32-36 [facility] Mean platelet volume determi nationOrdered By: [facility] Sarah Toth on 10-22-2024 Platelet mean volume (Bld) [Entitic vol] 9.2 fL 6.2-12.0 [facility] Microalbumin,Random Urineon 10-22-2024 MICROALBUMIN,UR 66.5 mg/L Normal NO RANGE EST. [facility] Comment on above: Performed By: #### L 100.0100, L500.4050, L506.1001, L501.9520, L500.4100, L501.9985, L502.0500 ####[facility] [address] [place], [place], [phone] Monocyte percentageOrdered B y: [facility] Sarah Toth on 10-22-2024 Monocytes/100 WBC (Bld) 6.1 % 0-10 [facility] Neutrophil percentageOrdered By: [facility] Sarah Toth on 10-22-2024 Neutrophils/100 WBC (Bld) 58.2 % 47-70 [facility] Nucleated red blood cell per centageOrdered By: [facility] Sarah Toth on 10-22-2024 Nucleated RBC/100 WBC (Bld) [Ratio] 0 % 0-5 [facility] Platelet countOrdered By: [facility] Sarah Toth on 10-22-2024 Platelets (Bld) [#/Vol] 274 10*3/uL 150-450 [facility] Potassium measurement (mass/ volume)Ordered By: [facility] Sarah Toth on 10-22-2024 Potassium (Unsp spec) [Mass/Vol] 4.7 mmol/L 3.3-5.1 [facility] RBC Auto (Bld) [#/Vol]Ordere d By: [facility] Sarah Toth on 10-22-2024 RBC (Bld) [#/Vol] 4.69 10*6/uL 4.2-5.4 [facility] Screening total cholesterol/ high density lipoprotein (HDL) cholesterol ratioOrdered By: [facility] Sarah Toth on 10-22-2024 Cholesterol.total/Vernell sterol in HDL [Mass ratio] 3.93 {ratio} [facility] Serum creatinine measurement (mass/volume)Ordered By: [facility] Sarah Toth on 10-22-2024 Creatinine [Mass/Vol] 1.09 mg/dL 0.70-1.20 [facility] Serum globulin measurementOr dered By: [facility] Sarah Toth on 10-22-2024 Globulin (S) [Mass/Vol] 2.8 g/dL 2.2-4.2 [facility] Serum glucose measurement (m ass/volume)Ordered By: [facility] Sarah Toth on 10-22-2024 Glucose [Mass/Vol] 166 mg/dL High 70-99 [facility] Serum or plasma alanine toribio otransferase (ALT) measurementOrdered By: [facility] Sarah Toth on 10-22-2024 ALT [Catalytic activity/Vol] 14 U/L <35 [facility] Serum or plasma albumin gavi urement (mass/volume)Ordered By: [facility] Sarah Toth on 10-22-2024 Albumin [Mass/Vol] 4.0 g/dL 3.4-4.8 [facility] Serum or plasma albumin/glob ulin mass ratioOrdered By: [facility] on 10-22-2024 Albumin/Globulin [Mass ratio] 1.4 {ratio} 0.9-2.4 [facility] Serum or plasma alkaline david sphatase measurementOrdered By: [facility] Nav[facility] on 10-22-2024 ALP [Catalytic activity/Vol] 86 U/L 35-104 [facility] Serum or plasma calcium gavi urement (mass/volume)Ordered By: [facility] Nav[facility] on 10-22-2024 Calcium [Mass/Vol] 9.1 mg/dL 7.6-11.0 [facility] Serum or plasma cholesterol in HDL measurement (mass/volume)Ordered By: [facility] on 10-22-2024 Cholesterol in HDL [Mass/Vol] 53 mg/dL >40 [facility] Comment on above: National Cholesterol Education Program (NCEP) guidelines:<40 mg/dL: Low HDL-cholesterol (major risk factor for CHD)>= 60 mg/dL: High HDL-cholesterol (negative risk factor for CHD)HDL-cholesterol is affected by a number of factors, e.g. smoking, exercise, hormones, sex and age. Serum or plasma cholesterol measurement (mass/volume)Ordered By: [facility] on 10-22-2024 Cholesterol [Mass/Vol] 207 mg/dL High <201 [facility] Comment on above: Cholesterol level, D esirable <200 mg/dLBorderline high cholesterol 200-239 mg/dLHigh cholesterol >=240 mg/dLRecommendations of the NCEP Adult Treatment Panel for the following risk-cutoff thresholds for the [place] population. Serum or plasma urea nitroge n measurement (mass/volume)Ordered By: [facility] Sarah Navneet on 10-22-2024 Urea nitrogen [Mass/Vol] 28 mg/dL High 4-19 [facility] Sodium levelOrdered By: [facility] Navneet 10-22-2024 Sodium [Moles/Vol] 135 mmol/L 133-145 [facility] TSH DL <= 0.005 mIU/L QnOrde red By: [facility] on 10-22-2024 TSH Qn 3.300 uIU/mL 0.300-4.200 [facility] Thyroid Stim Hormone (TSH)on 10-22-2024 TSH 3.300 uIU/mL Normal 0.300-4.200 [facility] Comment on above: Performed By: #### L 100.0100, L500.4050, L506.1001, L501.9520, L500.4100, L501.9985, L502.0500 ####[facility] [address] [place], [place], [address] Total proteinOrdered By: [facility] Sarah Toth on 10-22-2024 Protein [Mass/Vol] 6.8 g/dL 5.9-8.4 [facility] Triglycerides measurementOrd ered By: [facility] Sarah Toth on 10-22-2024 Triglyceride [Mass/Vol] 178 mg/dL <199 [facility] Comment on above: The drugs N-Acetylcy steine and Metamizole may falsely depress this assay. Normal range: <150 mg/dLBorderline High: 150-199 mg/dLHigh: 200-499 mg/dLVery High: >500 mg/dL Urine albumin measurement [facility] detection limit of 20 mg/L or less (mass/volume)Ordered By: [facility] Sarah Toth on 10-22-2024 Albumin DL <= 20 mg/L (U) [Mass/Vol] 66.5 mg/L NO RANGE EST. [facility] Vitamin D,25 Hydroxyon 10-22 Vitamin D 25-OH 31.5 ng/mL Normal 30-100 [facility] Comment on above: Result Comment: Carly min D Status Deficiency: <20 ng/mL (50nmol/L) Insufficiency: 20-30 ng/mL (50-75 nmol/L) Sufficiency: 30-100 ng/mL (75-250 nmol/L) Toxicity: >100 ng/mL (>250 nmol/L) Performed By: #### L 100.0100, L500.4050, L506.1001, L501.9520, L500.4100, L501.9985, L502.0500 ####[facility] [address] [place], [address] White blood cell (WBC) count Ordered By: [facility] Sarah Toth on 10-22-2024 WBC (Bld) [#/Vol] 6.4 10*3/uL 4.4-11.0 [facility] Endocrinology Visit Reporton 07-16-2024 Endocrinology Visit Report [facility] 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 Accompanied by: Self Is patient in pain?: No Allergies red dye Allergy (Verified 07/16/24 14:33) Hives Idpkvoq-EHL-TvW Reductase Inhibitor (Zuupeul-Gqg-Ckg Reductase Inhibitor) Adverse Reaction (Severe, Verified 07/16/24 [...] mg PO Q6H PRN nausea and 2 07/16/24 Rx tablet vomiting #7 tabs ezetimibe [...] you fallen in the past year?: [facility] (Updated 07/17/24 @ 08:52 by EVENS Vasquez) Essential hypertension Elevated troponin History of diabetes mellitus Hx of cardiomyopathy Dysarthria Medication reaction Intractable nausea and vomiting Dizziness Depression Near syncope Vertigo Carotid artery disease Pure hypercholesterolemia Atherosclerotic heart disease of nikolai coronary artery without angina pectoris Nonrheumatic mitral [...] History Father (more content not included)... Normal [facility] Absolute lymphocyte countOrd ered By: [facility] Sarah Toth on 07-02-2024 Lymphocytes Auto (Unsp spec) [#/Vol] 2.23 10*3/uL 0.83-4.51 [facility] Absolute neutrophil countOrd ered By: [facility] Sarah Toth on 07-02-2024 Neutrophils (Bld) [#/Vol] 4.9 10*3/uL 2.0-7.7 [facility] Albumin to globulin ratioOrd ered By: [facility] Sarah Toth on 07-02-2024 Albumin/Globulin [Mass ratio] 0.9 {ratio} Normal 0.9-2.4 [facility] Comment on above: Order Comment: CHAKA MALLORY ORDER ALL LABSNP.DONTAEANAHITS ORDERED LIPID AND LIVER Performed By: #### L 500.4050, L506.1000, L501.9520, L502.0500, L500.4100, L501.4700, L501.9985, L100.0100 ####[facility] [address] [place], [address] Automated lymphocyte count a s percentage of total leukocytesOrdered By: [facility] Sarahamerico Toth on 07-02-2024 Lymphocytes/100 WBC Auto (Unsp spec) 28.6 % 19-41 [facility] Basophil percentageOrdered B y: [facility] on 07-02-2024 Basophils/100 WBC (Bld) 0.9 % 0-1 [facility] Bilirubin directOrdered By: [facility] Sarah Navneet on 07-02-2024 Bilirubin.direct [Mass/Vol] 0.16 mg/dL Normal 0.00-0.30 [facility] Comment on above: Order Comment: CHAKA MALLORY ORDER ALL LABSNP.MARQUES ORDERED LIPID AND LIVER Performed By: #### L 500.4050, L506.1000, L501.9520, L502.0500, L500.4100, L501.4700, L501.9985, L100.0100 ####[facility] [address] [place], [place], [phone] Bilirubin, totalOrdered By: [facility] Sarah Navneet on 07-02-2024 Bilirubin [Mass/Vol] 1.00 mg/dL Normal 0.20-1.00 [facility] Comment on above: For patients on eltr ombopag therapy, use of Dimension [place] TBIL is not recommended. Order Comment: CHAKA MALLORY ORDER ALL LABSNP.KROBERTS ORDERED LIPID AND LIVER Result Comment: For patients on eltrombopag therapy, use of Dimension [place] TBIL is not recommended. Performed By: #### L 500.4050, L506.1000, L501.9520, L502.0500, L500.4100, L501.4700, L501.9985, L100.0100 ####[facility] [address] [place], [address] Blood urea nitrogen (BUN)/cr eatinine ratioOrdered By: [facility] Sarah Toth on 07-02-2024 Urea nitrogen/Creatinine [Mass ratio] 22.8 mg/mg High 03-30 [facility] CBC W/Diff, Automatedon 06-12 Absolute Lymph 2.23 X10 3/uL Normal 0.83-4.51 [facility] Comment on above: Order Comment: CHAKA MALLORY ORDER ALL LABSNP.KROBERTS ORDERED LIPID AND LIVER Performed By: #### L 500.4050, L506.1000, L501.9520, L502.0500, L500.4100, L501.4700, L501.9985, L100.0100 ####[facility] [address] [place], [address] Absolute Neut 4.9 X10 3/uL Normal 2.0-7.7 [facility] Comment on above: Order Comment: CHAKA MALLORY ORDER ALL LABSNP.KROBERTS ORDERED LIPID AND LIVER Performed By: #### L 500.4050, L506.1000, L501.9520, L502.0500, L500.4100, L501.4700, L501.9985, L100.0100 ####[facility] [address] [place], [address] Basophils/100 WBC (Bld) 0.9 % Normal 0-1 [facility] Comment on above: Order Comment: CHAKA MALLORY ORDER ALL LABSNP.KROBERTS ORDERED LIPID AND LIVER Performed By: #### L 500.4050, L506.1000, L501.9520, L502.0500, L500.4100, L501.4700, L501.9985, L100.0100 ####[facility] [address] [place], [address] Eosinophils/100 WBC (Bld) 1.8 % Normal 0-5 [facility] Comment on above: Order Comment: CHAKA MALLORY ORDER ALL LABSNP.KROBERTS ORDERED LIPID AND LIVER Performed By: #### L 500.4050, L506.1000, L501.9520, L502.0500, L500.4100, L501.4700, L501.9985, L100.0100 ####[facility] [address] [place], [address] Erythrocyte distribution width (RBC) [Ratio] 13.3 % Normal 11.6-14.6 [facility] Comment on above: Order Comment: CHAKA MALLORY ORDER ALL LABSNP.KROBERTS ORDERED LIPID AND LIVER Performed By: #### L 500.4050, L506.1000, L501.9520, L502.0500, L500.4100, L501.4700, L501.9985, L100.0100 ####[facility] [address] [place], [address] Hematocrit (Bld) [Volume fraction] 42.2 % Normal 37-47 [facility] Comment on above: Order Comment: CHAKA MALLORY ORDER ALL LABSNP.KROBERTS ORDERED LIPID AND LIVER Performed By: #### L 500.4050, L506.1000, L501.9520, L502.0500, L500.4100, L501.4700, L501.9985, L100.0100 ####[facility] [address] [place], [address] Hemoglobin (Bld) [Mass/Vol] 13.5 g/dL Normal 12.0-15.0 [facility] Comment on above: Order Comment: CHAKA MALLORY ORDER ALL LABSNP.KROBERTS ORDERED LIPID AND LIVER Performed By: #### L 500.4050, L506.1000, L501.9520, L502.0500, L500.4100, L501.4700, L501.9985, L100.0100 ####[facility] [address] [place], [address] IG% 0.400 Normal 0.0-0.9 [facility] Comment on above: Order Comment: CHAKA MALLORY ORDER ALL LABSNP.KROBERTS ORDERED LIPID AND LIVER Result Comment: IG% - Immature Granulocytes (promyelocytes, myelocytes and metamyelocytes) > 1% indicates that a LEFT SHIFT is Present. Performed By: #### L 500.4050, L506.1000, L501.9520, L502.0500, L500.4100, L501.4700, L501.9985, L100.0100 ####[facility] [address] [place], [address] Lymphocytes/100 WBC (Bld) 28.6 % Normal 19-41 [facility] Comment on above: Order Comment: CHAKA MALLORY ORDER ALL LABSNP.KROBERTS ORDERED LIPID AND LIVER Performed By: #### L 500.4050, L506.1000, L501.9520, L502.0500, L500.4100, L501.4700, L501.9985, L100.0100 ####[facility] [address] [facility] [place], [address] MCH (RBC) [Entitic mass] 28.2 pg Normal 27.0-32.0 [facility] Comment on above: Order Comment: CHAKA MALLORY ORDER ALL LABSNP.KROBERTS ORDERED LIPID AND LIVER Performed By: #### L 500.4050, L506.1000, L501.9520, L502.0500, L500.4100, L501.4700, L501.9985, L100.0100 ####[facility] [address] [place], [address] MCHC (RBC) [Mass/Vol] 32.0 g/dL Normal 32-36 [facility] Comment on above: Order Comment: CHAKA MALLORY ORDER ALL LABSNP.KROBERTS ORDERED LIPID AND LIVER Performed By: #### L 500.4050, L506.1000, L501.9520, L502.0500, L500.4100, L501.4700, L501.9985, L100.0100 ####[facility] [address] [place], [address] MCV (RBC) [Entitic vol] 88.3 fL Normal 81-99 [facility] Comment on above: Order Comment: CHAKA MALLORY ORDER ALL LABSNP.KROBERTS ORDERED LIPID AND LIVER Performed By: #### L 500.4050, L506.1000, L501.9520, L502.0500, L500.4100, L501.4700, L501.9985, L100.0100 ####[facility] [address] [place], [address] Monocytes/100 WBC (Bld) 5.6 % Normal 0-10 [facility] Comment on above: Order Comment: CHAKA MALLORY ORDER ALL LABSNP.KROBERTS ORDERED LIPID AND LIVER Performed By: #### L 500.4050, L506.1000, L501.9520, L502.0500, L500.4100, L501.4700, L501.9985, L100.0100 ####[facility] [address] [place], [address] Neutrophils/100 WBC (Bld) 62.7 % Normal 47-70 [facility] Comment on above: Order Comment: CHAKA MALLORY ORDER ALL LABSNP.KROBERTS ORDERED LIPID AND LIVER Performed By: #### L 500.4050, L506.1000, L501.9520, L502.0500, L500.4100, L501.4700, L501.9985, L100.0100 ####[facility] [address] [place], [address] Nucleated RBC (Bld) [#/Vol] 0 10*3/uL Normal 0-5 [facility] Comment on above: Order Comment: CHAKA MALLORY ORDER ALL LABSNP.KROBERTS ORDERED LIPID AND LIVER Performed By: #### L 500.4050, L506.1000, L501.9520, L502.0500, L500.4100, L501.4700, L501.9985, L100.0100 ####[facility] [address] [place], [address] Platelet mean volume (Bld) [Entitic vol] 9.0 fL Normal 6.2-12.0 [facility] Comment on above: Order Comment: CHAKA MALLORY ORDER ALL LABSNP.KROBERTS ORDERED LIPID AND LIVER Performed By: #### L 500.4050, L506.1000, L501.9520, L502.0500, L500.4100, L501.4700, L501.9985, L100.0100 ####[facility] [address] [place], [address] Platelets (Bld) [#/Vol] 279 10*3/uL Normal 150-450 [facility] Comment on above: Order Comment: CHAKA MALLORY ORDER ALL LABSNP.KROBERTS ORDERED LIPID AND LIVER Performed By: #### L 500.4050, L506.1000, L501.9520, L502.0500, L500.4100, L501.4700, L501.9985, L100.0100 ####[facility] [address] [place], [address] RBC (Bld) [#/Vol] 4.78 10*6/uL Normal 4.2-5.4 [facility] Comment on above: Order Comment: CHAKA MALLORY ORDER ALL LABSNP.KROBERTS ORDERED LIPID AND LIVER Performed By: #### L 500.4050, L506.1000, L501.9520, L502.0500, L500.4100, L501.4700, L501.9985, L100.0100 ####[facility] [address] [place], [address] RDW SD 42.9 fl Normal 35.1-43.9 [facility] Comment on above: Order Comment: CHAKA MALLORY ORDER ALL LABSNP.KROBERTS ORDERED LIPID AND LIVER Performed By: #### L 500.4050, L506.1000, L501.9520, L502.0500, L500.4100, L501.4700, L501.9985, L100.0100 ####[facility] [address] [place], [place], [id number] WBC (Bld) [#/Vol] 7.8 10*3/uL Normal 4.4-11.0 [facility] Comment on above: Order Comment: CHAKA MALLORY ORDER ALL LABSNP.KROBERTS ORDERED LIPID AND LIVER Performed By: #### L 500.4050, L506.1000, L501.9520, L502.0500, L500.4100, L501.4700, L501.9985, L100.0100 ####[facility] [address] [place], [place], [id number] Carbon dioxide measurementOr dered By: [facility] Sarah Toth on 07-02-2024 CO2 [Moles/Vol] 25.0 mmol/L Normal 21.0-32.0 [facility] Comment on above: Order Comment: CHAKA MALLORY ORDER ALL LABSNP.KROBERTS ORDERED LIPID AND LIVER Performed By: #### L 500.4050, L506.1000, L501.9520, L502.0500, L500.4100, L501.4700, L501.9985, L100.0100 ####[facility] [address] [place], [place], [id number] Cardiology Visit Reporton Cardiology Visit Report [facility] [address] [place], [place] [address] OFFICE VISIT Date of Service: 07/02/24 MR#: [id number] Acct: [id number] Name: THIAGO PIERRE Rep #: [id number] : 1955 Provider: CHAPIN Jimenez Age/Sex: 69/F Location: [facility] Status: Signed HPI HPI History of Present Illness Details: THIAGO FLORES, is a 69 year old white female who presents to the office today for an outpatient cardiovascular hospital follow-up visit. 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 Normal [facility] Chloride measurementOrdered By: [facility] Sarah Toth on 07-02-2024 Chloride [Moles/Vol] 103 mmol/L Normal 98-107 [facility] Comment on above: Order Comment: CHAKA MALLORY ORDER ALL LABSNP.MARQUES ORDERED LIPID AND LIVER Performed By: #### L 500.4050, L506.1000, L501.9520, L502.0500, L500.4100, L501.4700, L501.9985, L100.0100 ####[facility] [address] [place], [address] Comprehensive Metabolic Prof ilon 07-02-2024 ALK P 78 U/L Normal 45-117 [facility] Comment on above: Order Comment: CHAKA MALLORY ORDER ALL LABSNP.MYRONTS ORDERED LIPID AND LIVER Performed By: #### L 500.4050, L506.1000, L501.9520, L502.0500, L500.4100, L501.4700, L501.9985, L100.0100 ####[facility] [address] [place], [address] BUN/CRE 22.8 RATIO High 10-20 [facility] Comment on above: Order Comment: CHAKA MALLORY ORDER ALL LABSNP.KROBERTS ORDERED LIPID AND LIVER Performed By: #### L 500.4050, L506.1000, L501.9520, L502.0500, L500.4100, L501.4700, L501.9985, L100.0100 ####[facility] [address] [place], [address] CA,Total 9.4 mg/dL Normal 8.5-10.1 [facility] Comment on above: Order Comment: CHAKA MALLORY ORDER ALL LABSNP.KROBERTS ORDERED LIPID AND LIVER Performed By: #### L 500.4050, L506.1000, L501.9520, L502.0500, L500.4100, L501.4700, L501.9985, L100.0100 ####[facility] [address] [place], [address] EST GFR - AA 77 mL/min Normal >60 [facility] Comment on above: Order Comment: CHAKA MALLORY ORDER ALL LABSNP.KROBERTS ORDERED LIPID AND LIVER Result Comment: Afri can [place] GFR Calc Performed By: #### L 500.4050, L506.1000, L501.9520, L502.0500, L500.4100, L501.4700, L501.9985, L100.0100 ####[facility] [address] [place], [address] GAP 8 Normal 5-15 [facility] Comment on above: Order Comment: CHAKA MALLORY ORDER ALL LABSNP.KROBERTS ORDERED LIPID AND LIVER Performed By: #### L 500.4050, L506.1000, L501.9520, L502.0500, L500.4100, L501.4700, L501.9985, L100.0100 ####[facility] [address] [place], [address] T PROT 6.8 g/dL Normal 6.4-8.2 [facility] Comment on above: Order Comment: CHAKA DEWITTIN ORDER ALL LABSNP.KROBERTS ORDERED LIPID AND LIVER Performed By: #### L 500.4050, L506.1000, L501.9520, L502.0500, L500.4100, L501.4700, L501.9985, L100.0100 ####[facility] [address] [place], [address] Comprehensive Metabolic Prof ilOrdered By: [facility] Sarah Toth on 07-02-2024 AST [Catalytic activity/Vol] 10 U/L Low 15-37 [facility] Comment on above: Order Comment: CHAKA MALLORY ORDER ALL LABSNP.KROBERTS ORDERED LIPID AND LIVER Performed By: #### L 500.4050, L506.1000, L501.9520, L502.0500, L500.4100, L501.4700, L501.9985, L100.0100 ####[facility] [address] [place], [place], [phone] Eosinophil percentageOrdered By: [facility] Sarah Toth on 07-02-2024 Eosinophils/100 WBC (Bld) 1.8 % 0-5 [facility] Erythrocyte distribution wid th ratioOrdered By: [facility] Sarah Toth on 07-02-2024 Erythrocyte distribution width (RBC) [Ratio] 13.3 % 11.6-14.6 [facility] Erythrocyte distribution wid th standard deviationOrdered By: [facility] Sarah Toth on 07-02-2024 Erythrocyte distribution width (RBC) [Ratio] 42.9 fl 35.1-43.9 [facility] Glomerular filtration rate ( GFR) estimationOrdered By: [facility] Sarah Toth on 07-02-2024 GFR/1.73 sq M.predicted among non-blacks MDRD (S/P/Bld) [Vol rate/Area] 64 mL/min/{1.73_m2} Normal >60 [facility] Comment on above: Non- GFR Calc Order Comment: CHAKA MALLORY ORDER ALL LABSNP.MARQUES ORDERED LIPID AND LIVER Result Comment: Non- GFR Calc Performed By: #### L 500.4050, L506.1000, L501.9520, L502.0500, L500.4100, L501.4700, L501.9985, L100.0100 ####[facility] [address] [place], [place], [id number] Glucose measurementOrdered B y: [facility] Sarah Toth on 07-02-2024 Glucose [Mass/Vol] 154 mg/dL High 74-106 [facility] Comment on above: Fasting Glucose resu lt greater than or equal to 126 mg/dL suggests DIABETES MELLITUS per A.D.A. criteria. Order Comment: CHAKA MALLORY ORDER ALL LABSNP.MARQUES ORDERED LIPID AND LIVER Result Comment: Fast ing Glucose result greater than or equal to 126 mg/dL suggests DIABETES MELLITUS per A.D.A. criteria. Performed By: #### L 500.4050, L506.1000, L501.9520, L502.0500, L500.4100, L501.4700, L501.9985, L100.0100 ####[facility] [address] [place], [place], [phone] Hematocrit Auto (Bld) [Volum e fraction]Ordered By: [facility] Sarah Toth on 07-02-2024 Hematocrit (Bld) [Volume fraction] 42.2 % 37-47 [facility] Hemoglobin A1con 07-02-2024 HbA1c (Bld) [Mass fraction] 7.0 % High 3.8-5.6 [facility] Comment on above: Order Comment: CHAKA MALLORY ORDER ALL LABSNP.KROBERTS ORDERED LIPID AND LIVER Result Comment: Norm al < 5.7 % Prediabetic 5.7 - 6.4 % Diabetic >or= 6.5 % Please note range changes. Performed By: #### L 500.4050, L506.1000, L501.9520, L502.0500, L500.4100, L501.4700, L501.9985, L100.0100 ####[facility] [address] [place], [place], [phone] Hemoglobin A1c percentageOrd ered By: [facility] Sarah Toth on 07-02-2024 HbA1c (Bld) [Mass fraction] 7.0 % High 3.8-5.6 [facility] Comment on above: Normal < 5.7 % Predi abetic 5.7 - 6.4 % Diabetic >or= 6.5 % Please note range changes. Hemoglobin measurementOrdere d By: [facility] Sarah Toth on 07-02-2024 Hemoglobin (Bld) [Mass/Vol] 13.5 g/dL 12.0-15.0 [facility] High density lipoprotein (HD L) measurementOrdered By: [facility] Sarah Toth on 07-02-2024 Cholesterol in HDL [Mass/Vol] 55 mg/dL Normal [facility] Comment on above: The drugs N-Acetylcy steine and Metamizole may falsely depress this assay. Reference Range HDL <40 mg/dL Low HDL Cholesterol HDL >or= 60 mg/dL High HDL Cholesterol Order Comment: CHAKA MALLORY ORDER ALL LABSNP.MARQUES ORDERED LIPID AND LIVER Result Comment: The drugs N-Acetylcysteine and Metamizole may falsely depress this assay. Reference Range HDL <40 mg/dL Low HDL Cholesterol HDL >or= 60 mg/dL High HDL Cholesterol Performed By: #### L 500.4050, L506.1000, L501.9520, L502.0500, L500.4100, L501.4700, L501.9985, L100.0100 ####[facility] [address] [place], [place], [phone] Immature granulocytes/100 WB C Auto (Bld)Ordered By: [facility] Sarah Toth on 07-02-2024 Immature granulocytes/100 WBC (Bld) 0.400 % 0.0-0.9 [facility] Comment on above: IG% - Immature Granu locytes (promyelocytes, myelocytes and metamyelocytes) > 1% indicates that a LEFT SHIFT is Present. Lipid Profileon 07-02-2024 Cholesterol in VLDL [Mass/Vol] 38 mg/dL Normal 5-40 [facility] Comment on above: Order Comment: CHAKA MALLORY ORDER ALL LABSNP.DONTAEOBERTS ORDERED LIPID AND LIVER Performed By: #### L 500.4050, L506.1000, L501.9520, L502.0500, L500.4100, L501.4700, L501.9985, L100.0100 ####[facility] [address] [place], [place], [phone] Low density lipoprotein (LDL ) cholesterol measurementOrdered By: [facility] Sarah Toth on 07-02-2024 Cholesterol in LDL [Mass/Vol] 110 mg/dL Normal 0-130 [facility] Comment on above: Order Comment: CHAKA MALLORY ORDER ALL LABSNP.DONTAEOBERTS ORDERED LIPID AND LIVER Performed By: #### L 500.4050, L506.1000, L501.9520, L502.0500, L500.4100, L501.4700, L501.9985, L100.0100 ####[facility] [address] [place], [place], [phone] MCV (mean corpuscular volume ) determinationOrdered By: [facility] Sarah Toth on 07-02-2024 MCV (RBC) [Entitic vol] 88.3 fL 81-99 [facility] Mean corpuscular hemoglobin (MCH) determinationOrdered By: [facility] Sarah Toth on 07-02-2024 MCH (RBC) [Entitic mass] 28.2 pg 27.0-32.0 [facility] Mean corpuscular hemoglobin concentration (MCHC) determinationOrdered By: [facility] Sarah Toth on 07-02-2024 MCHC (RBC) [Mass/Vol] 32.0 g/dL 32-36 [facility] Mean platelet volume determi nationOrdered By: [facility] Sarah Toth on 07-02-2024 Platelet mean volume (Bld) [Entitic vol] 9.0 fL 6.2-12.0 [facility] Microalbumin,Random Urineon 07-02-2024 MICROALBUMIN,UR 778.0 mg/L Normal NO RANGE EST. [facility] Comment on above: Order Comment: CHAKA MALLORY ORDER ALL LABSNP.MYRONTS ORDERED LIPID AND LIVER Performed By: #### L 500.4050, L506.1000, L501.9520, L502.0500, L500.4100, L501.4700, L501.9985, L100.0100 ####[facility] [address] [place], [place], [phone] Monocyte percentageOrdered B y: [facility] Sarah Toth on 07-02-2024 Monocytes/100 WBC (Bld) 5.6 % 0-10 [facility] Neutrophil percentageOrdered By: [facility] Sarah Toth on 07-02-2024 Neutrophils/100 WBC (Bld) 62.7 % 47-70 [facility] Nucleated red blood cell per centageOrdered By: [facility] Sarah Toth on 07-02-2024 Nucleated RBC/100 WBC (Bld) [Ratio] 0 % 0-5 [facility] Platelet countOrdered By: [facility] Sarah Toth on 07-02-2024 Platelets (Bld) [#/Vol] 279 10*3/uL 150-450 [facility] Potassium measurementOrdered By: [facility] Sarah Toth on 07-02-2024 Potassium [Moles/Vol] 4.2 mmol/L Normal 3.5-5.1 [facility] Comment on above: Order Comment: CHAKA MALLORY ORDER ALL LABSNP.DONTAEOBERTS ORDERED LIPID AND LIVER Performed By: #### L 500.4050, L506.1000, L501.9520, L502.0500, L500.4100, L501.4700, L501.9985, L100.0100 ####[facility] [address] [place], [place], [phone] RBC Auto (Bld) [#/Vol]Ordere d By: [facility] Sarah Toth on 07-02-2024 RBC (Bld) [#/Vol] 4.78 10*6/uL 4.2-5.4 [facility] Serum anion gap measurementO rdered By: [facility] Sarah Toth on 07-02-2024 Anion gap [Moles/Vol] 8 mmol/L 5-15 [facility] Serum globulin measurementOr dered By: [facility] Sarah Navneet on 07-02-2024 Globulin (S) [Mass/Vol] 3.6 g/dL Normal 2.2-4.2 [facility] Comment on above: Order Comment: CHAKA MALLORY ORDER ALL LABSNP.MYRONTS ORDERED LIPID AND LIVER Performed By: #### L 500.4050, L506.1000, L501.9520, L502.0500, L500.4100, L501.4700, L501.9985, L100.0100 ####[facility] [address] [facility] [place], [address] Serum or plasma alanine toribio otransferase (ALT) measurementOrdered By: [facility] Sarah Navneet on 07-02-2024 ALT [Catalytic activity/Vol] 24 U/L Normal 13-56 [facility] Comment on above: Order Comment: CHAKA MALLORY ORDER ALL LABSNP.MYRONTS ORDERED LIPID AND LIVER Performed By: #### L 500.4050, L506.1000, L501.9520, L502.0500, L500.4100, L501.4700, L501.9985, L100.0100 ####[facility] [address] [place], [address] Serum or plasma albumin gavi urement (mass/volume)Ordered By: [facility] Sarah Navneet on 07-02-2024 Albumin [Mass/Vol] 3.2 g/dL Normal 3.2-5.0 [facility] Comment on above: Order Comment: CHAKA MALLORY ORDER ALL LABSNP.MYRONTS ORDERED LIPID AND LIVER Performed By: #### L 500.4050, L506.1000, L501.9520, L502.0500, L500.4100, L501.4700, L501.9985, L100.0100 ####[facility] [address] [place], [address] Serum or plasma alkaline david sphatase measurementOrdered By: [facility] Sarah Toth on 07-02-2024 ALP [Catalytic activity/Vol] 78 U/L 45-117 [facility] Serum or plasma calcium gavi urement (mass/volume)Ordered By: [facility] on 07-02-2024 Calcium [Mass/Vol] 9.4 mg/dL 8.5-10.1 [facility] Serum or plasma cholesterol measurement (mass/volume)Ordered By: [facility] on 07-02-2024 Cholesterol [Mass/Vol] 203 mg/dL High 200 [facility] Comment on above: <200 mg/dL Desirable 200-240 mg/dL Borderline >240 mg/dL High Risk Order Comment: CHAKA MALLORY ORDER ALL LABSNP.MYRONTS ORDERED LIPID AND LIVER Result Comment: <200 mg/dL Desirable 200-240 mg/dL Borderline >240 mg/dL High Risk Performed By: #### L 500.4050, L506.1000, L501.9520, L502.0500, L500.4100, L501.4700, L501.9985, L100.0100 ####[facility] [address] [place], [address] Serum or plasma creatinine m easurement (mass/volume)Ordered By: [facility] Sarah Toth on 07-02-2024 Creatinine [Mass/Vol] 0.92 mg/dL Normal 0.55-1.02 [facility] Comment on above: The validity of the calculated GFR & GFRAA in patients over 70 years has not been determined. Clinical correlation is essential. Order Comment: CHAKA MALLORY ORDER ALL LABSNP.KROBERTS ORDERED LIPID AND LIVER Result Comment: The validity of the calculated GFR GFRAA in patients over 70 years has not been determined. Clinical correlation is essential. Performed By: #### L 500.4050, L506.1000, L501.9520, L502.0500, L500.4100, L501.4700, L501.9985, L100.0100 ####[facility] [address] [place], [address] Serum or plasma thyroid stim ulating hormone (TSH) measurement (units/volume)Ordered By: [facility] Sarah Navneet on 07-02-2024 TSH Qn 2.320 uIU/mL 0.358-3.740 [facility] Serum or plasma urea nitroge n measurement (mass/volume)Ordered By: [facility] on 07-02-2024 Urea nitrogen [Mass/Vol] 21 mg/dL High 7-18 [facility] Comment on above: Order Comment: CHAKA MALLORY ORDER ALL LABSNP.MARQUES ORDERED LIPID AND LIVER Performed By: #### L 500.4050, L506.1000, L501.9520, L502.0500, L500.4100, L501.4700, L501.9985, L100.0100 ####[facility] [address] [place], [address] Sodium levelOrdered By: [facility] on 07-02-2024 Sodium [Moles/Vol] 136 mmol/L Normal 136-145 [facility] Comment on above: Order Comment: CHAKA MALLORY ORDER ALL LABSNP.MYRONTS ORDERED LIPID AND LIVER Performed By: #### L 500.4050, L506.1000, L501.9520, L502.0500, L500.4100, L501.4700, L501.9985, L100.0100 ####[facility] [address] [place], [address] Thyroid Stim Hormone (TSH)on 07-02-2024 TSH 2.320 uIU/mL Normal 0.358-3.740 [facility] Comment on above: Order Comment: CHAKA MALLORY ORDER ALL LABSNP.MYRONTS ORDERED LIPID AND LIVER Performed By: #### L 500.4050, L506.1000, L501.9520, L502.0500, L500.4100, L501.4700, L501.9985, L100.0100 ####[facility] [address] [place], [place], [phone] Total proteinOrdered By: [facility] Sarah Navneet on 07-02-2024 Protein [Mass/Vol] 6.8 g/dL 6.4-8.2 [facility] Triglycerides measurementOrd ered By: [facility] Sarah Navneet on 07-02-2024 Triglyceride [Mass/Vol] 189 mg/dL Normal [facility] Comment on above: The drugs N-Acetylcy steine and Metamizole may falsely depress this assay.Serum Triglycerides Reference Interval Normal <150 mg/dL Borderline high 150 - 199 mg/dL High 200 - 499 mg/dL Very High > or = 500 mg/dL Order Comment: CHAKA MALLORY ORDER ALL LABSNP.KRANAHITS ORDERED LIPID AND LIVER Result Comment: The drugs N-Acetylcysteine and Metamizole may falsely depress this assay. Serum Triglycerides Reference Interval Normal <150 mg/dL Borderline high 150 - 199 mg/dL High 200 - 499 mg/dL Very High > or = 500 mg/dL Performed By: #### L 500.4050, L506.1000, L501.9520, L502.0500, L500.4100, L501.4700, L501.9985, L100.0100 ####[facility] [address] [place], [place], [address] Very low density lipoprotein (VLDL) cholesterol measurementOrdered By: [facility] Sarah Toth on 07-02-2024 Very low density lipoprotein (VLDL) cholesterol measurement 38 mg/dL 5-40 [facility] Vitamin D,25 Hydroxyon 07-02 Vitamin D 25-OH 36.4 ng/mL Normal [facility] Comment on above: Order Comment: CHAKA MALLORY ORDER ALL LABSNP.KROBERTS ORDERED LIPID AND LIVER Result Comment: Carly min D 25(OH) Status Range Deficiency <20 ng/mL (50nmol/L) Insufficiency 20 - 30 ng/mL (50 - 75 nmol/L) Sufficiency 30 - 100 ng/mL (75 - 250 nmol/L) Toxicity >100 ng/mL (>250 nmol/L) Performed By: #### L 500.4050, L506.1000, L501.9520, L502.0500, L500.4100, L501.4700, L501.9985, L100.0100 ####[facility] [address] [place], [place], [address] White blood cell (WBC) count Ordered By: [facility] Sarah Toth on 07-02-2024 WBC (Bld) [#/Vol] 7.8 10*3/uL 4.4-11.0 [facility] Endocrinology Visit Reporton 04-16-2024 Endocrinology Visit Report [facility] [address] [place] [address] OFFICE VISIT Date of Service: 04/16/24 MR#: [id number] Acct: [id number] Name: THIAGO PIERRE Rep #: [id number] : 1955 Provider: EVENS gates Age/Sex: 68/F Location: [facility] [place] Status: Signed Intake Vital Signs 01/17/24 10:12 [...] red dye Allergy (Verified 03/13/24 10:11) Hives Ftofwjc-YLO-VaC Reductase Inhibitor (Diwoddw-Zuv-Vff Reductase Inhibitor) Adverse Reaction (Severe, Verified 03/13/24 10:11) Myalgias semaglutide (From Ozempic) Adverse Reaction (Verified 04/16/24 13:33) Vomiting Medications ???Medication ???Instructions ???Recorded ???Confirmed ???Type gabapentin 300 mg capsule 600 mg PO QHS NERVE PAIN 01/12/16 04/16/24 History aspirin 81 mg tablet,delayed 81 mg PO DAILY@00 HEALTH 01/26/17 04/16/24 History release MAINTENANCE cholecalciferol [...] (Reviewed 03/13/24 @ 10:21 by Lico Noel [employer], [employer]GER [employer]-C) Elevated troponin History of diabetes mellitus Hx of cardiomyopathy Dysarthria Medication reaction Intractable nausea and vomiting Dizziness Depression Near syncope Vertigo Carotid artery disease Pure hypercholesterolemia Essential hypertension Atherosclerotic heart disease of nikolai coronary artery without angina pectoris Nonrheumatic mitral (valve) insufficiency Dilated cardiomyopathy Chronic systolic (congestive) heart failure BALWINDER (acute kidney injury) Abnormal electrocardiogram Systolic CHF, acute Hypertension Obesity (BMI 30-39.9) Hyperlipidemia Diabetes mellitus, type II NICOLLE (obstructive sleep apnea) Surgical History (Reviewed 03/13/24 @ 10:21 by Lico Noel [employer]OURCES [employer]GER [employer]URING, H[employer]OURCES MANAGER [employer]ING-C) History of eye surgery History of left heart catheterization (LHC) ( 05/26/15) Status post foot surgery Status post breast reduction S/P hysterectomy History of bilateral breast reduction surgery History of bilateral foot surgery History of hysterectomy Cardiac defibrillator in situ Family History (Reviewed 03/13/24 @ 10:21 by Lico Noel [employer]OURCES MANAGER [employer]FA[employer]URING, H[employer]OURCES MANAGER [employer]ING-C) Father , Lung cancer Lung cancer Mother , Breast cancer Breast cancer Brother Cancer lymphoma Social History household members: spouse Smoking Status: Former smoker quit date: 06/11/06 (more content not included)... Normal [facility] BSCAN OS (LEFT EYE)on 2023 [facility] Radiology Study observation (narrative) [facility] Left eye Photo documentation on 11-27-2023 [facility] Radiology Study observation (narrative) [facility] Absolute lymphocyte countOrd ered By: Justyn Lu on 09-13-2023 Lymphocytes Auto (Unsp spec) [#/Vol] 2.63 10*3/uL 0.83-4.51 [facility] Automated lymphocyte count a s percentage of total leukocytesOrdered By: Justyn Lu on 09-13-2023 Lymphocytes/100 WBC Auto (Unsp spec) 26.6 % 19-41 [facility] Basophil percentageOrdered B y: Justyn Lu on 09-13-2023 Basophils/100 WBC (Bld) 0.6 % 0-1 [facility] Chloride [Moles/Vol] 105 mmol/L 98-107 [facility] Eosinophils/100 WBC (Bld) 1.4 % 0-5 [facility] Glucose [Mass/Vol] 124 mg/dL 74-106 [facility] Comment on above: Fasting Glucose resu lt from 100 to 125 mg/dL suggests IMPAIRED HOMEOSTASIS per A.D.A. criteria. Hemoglobin (Bld) [Mass/Vol] 15.0 g/dL 12.0-15.0 [facility] Monocytes/100 WBC (Bld) 6.1 % 0-10 [facility] Neutrophils (Bld) [#/Vol] 6.4 10*3/uL 2.0-7.7 [facility] Neutrophils/100 WBC (Bld) 64.8 % 47-70 [facility] Potassium [Moles/Vol] 3.9 mmol/L 3.5-5.1 [facility] Sodium [Moles/Vol] 137 mmol/L 136-145 [facility] WBC (Bld) [#/Vol] 9.9 10*3/uL 4.4-11.0 [facility] Determination of erythrocyte mean corpuscular volume (MCV)Ordered By: Justyn Lu on 09-13-2023 MCV (RBC) [Entitic vol] 87.0 fL 81-99 [facility] Erythrocyte distribution wid th ratioOrdered By: Justyn Lu on 09-13-2023 Erythrocyte distribution width (RBC) [Ratio] 12.8 % 11.6-14.6 [facility] Erythrocyte distribution wid th standard deviationOrdered By: Justyn Lu on 09-13-2023 Erythrocyte distribution width (RBC) [Entitic vol] 40.1 fL 35.1-43.9 [facility] Hematocrit Auto (Bld) [Volum e fraction]Ordered By: Justyn Lu on 09-13-2023 Hematocrit (Bld) [Volume fraction] 46.9 % 37-47 [facility] Immature granulocytes/100 WB C Auto (Bld)Ordered By: Justyn Lu on 09-13-2023 Immature granulocytes/100 WBC (Bld) 0.500 % 0.0-0.9 [facility] Comment on above: IG% - Immature Granu locytes (promyelocytes, myelocytes and metamyelocytes) > 1% indicates that a LEFT SHIFT is Present. Laboratory - Chemistry and C hemistry - challengeOrdered By: Justyn Lu on 09-13-2023 CO2 [Moles/Vol] 26.0 mmol/L 21.0-32.0 [facility] Urea nitrogen/Creatinine [Mass ratio] 21.2 mg/mg 10-20 [facility] Laboratory - Hematology and Cell countsOrdered By: Justyn Lu on 09-13-2023 MCH (RBC) [Entitic mass] 27.8 pg 27.0-32.0 [facility] MCHC (RBC) [Mass/Vol] 32.0 g/dL 32-36 [facility] Nucleated RBC/100 WBC (Bld) [Ratio] 0 % 0-5 [facility] Platelet mean volume (Bld) [Entitic vol] 9.5 fL 6.2-12.0 [facility] Platelets (Bld) [#/Vol] 343 10*3/uL 150-450 [facility] No Panel InformationOrdered By: Justyn Lu on 09-13-2023 Estimated Creatinine Clearance Calc 60.79 ml/min [facility] Estimated GFR (MDRD) Amer 67 mL/min >60 [facility] Comment on above: GFR Calc Estimated GFR (MDRD) Non-Af Amer 56 mL/min >60 [facility] Comment on above: Non- GFR Calc Troponin I High Sensitivity 5 pg/mL 3.0-54.0 [facility] Comment on above: Please Note: New [place] t Units and Gender Specific Reference Ranges. For more information see Policy Stat Procedure [place] High Sensitivity Troponin (TNIH) and attachments. RBC Auto (Bld) [#/Vol]Ordere d By: Justyn Lu on 09-13-2023 RBC (Bld) [#/Vol] 5.39 10*6/uL 4.2-5.4 [facility] Serum or plasma calcium gavi urement (mass/volume)Ordered By: Justyn Lu on 09-13-2023 Calcium [Mass/Vol] 9.2 mg/dL 8.5-10.1 [facility] Serum or plasma creatinine m easurement (mass/volume)Ordered By: Justyn Lu on 09-13-2023 Creatinine [Mass/Vol] 1.04 mg/dL 0.55-1.02 [facility] Comment on above: The validity of the calculated GFR & GFRAA in patients over 70 years has not been determined. Clinical correlation is essential. Serum or plasma urea nitroge n measurement (mass/volume)Ordered By: Justyn Lu on 09-13-2023 Urea nitrogen [Mass/Vol] 22 mg/dL 7-18 [facility] Thin prep Papanicolaou smear with manual screeningOrdered By: Justyn Lu on 09-13-2023 Thin prep Papanicolaou smear with manual screening 6 5-15 [facility] Basophil percentageOrdered B y: Sarah Navneet on 07-18-2023 Bilirubin [Mass/Vol] 0.90 mg/dL 0.20-1.00 [facility] Comment on above: For patients on eltr ombopag therapy, use of Dimension [place] TBIL is not recommended. Chloride [Moles/Vol] 105 mmol/L 98-107 [facility] Cholesterol [Mass/Vol] 183 mg/dL <200 [facility] Comment on above: <200 mg/dL Desirable 200-240 mg/dL Borderline >240 mg/dL High Risk Glucose [Mass/Vol] 162 mg/dL 74-106 [facility] Comment on above: Fasting Glucose resu lt greater than or equal to 126 mg/dL suggests DIABETES MELLITUS per A.D.A. criteria. Hemoglobin (Bld) [Mass/Vol] 13.7 g/dL 12.0-15.0 [facility] Potassium [Moles/Vol] 4.2 mmol/L 3.5-5.1 [facility] Protein [Mass/Vol] 6.8 g/dL 6.4-8.2 [facility] Sodium [Moles/Vol] 133 mmol/L 136-145 [facility] Triglyceride [Mass/Vol] 170 mg/dL <199 [facility] Comment on above: The drugs N-Acetylcy steine and Metamizole may falsely depress this assay.Serum Triglycerides Reference Interval Normal <150 mg/dL Borderline high 150 - 199 mg/dL High 200 - 499 mg/dL Very High > or = 500 mg/dL WBC (Bld) [#/Vol] 7.4 10*3/uL 4.4-11.0 [facility] Determination of erythrocyte mean corpuscular volume (MCV)Ordered By: Sarah Toth on 07-18-2023 MCV (RBC) [Entitic vol] 89.2 fL 81-99 [facility] Erythrocyte distribution wid th ratioOrdered By: Sarah Toth on 07-18-2023 Erythrocyte distribution width (RBC) [Ratio] 13.0 % 11.6-14.6 [facility] Erythrocyte distribution wid th standard deviationOrdered By: Sarah Toth on 07-18-2023 Erythrocyte distribution width (RBC) [Entitic vol] 42.6 fL 35.1-43.9 [facility] Hematocrit Auto (Bld) [Volum e fraction]Ordered By: Sarah Toth on 07-18-2023 Hematocrit (Bld) [Volume fraction] 43.7 % 37-47 [facility] Laboratory - Chemistry and C hemistry - challengeOrdered By: Sarah Toth on 07-18-2023 Albumin/Globulin [Mass ratio] 0.9 {ratio} 0.9-2.4 [facility] ALP [Catalytic activity/Vol] 91 U/L 45-117 [facility] ALT [Catalytic activity/Vol] 19 U/L 13-56 [facility] Cholesterol in HDL [Mass/Vol] 49 mg/dL >40 [facility] Comment on above: The drugs N-Acetylcy steine and Metamizole may falsely depress this assay. Reference Range HDL <40 mg/dL Low HDL Cholesterol HDL >or= 60 mg/dL High HDL Cholesterol Cholesterol in LDL [Mass/Vol] 100 mg/dL 0-130 [facility] CO2 [Moles/Vol] 26.0 mmol/L 21.0-32.0 [facility] Globulin (S) [Mass/Vol] 3.6 g/dL 2.2-4.2 [facility] Urea nitrogen/Creatinine [Mass ratio] 25.2 mg/mg 10-20 [facility] Laboratory - Hematology and Cell countsOrdered By: Sarah Toth on 07-18-2023 MCH (RBC) [Entitic mass] 28.0 pg 27.0-32.0 [facility] MCHC (RBC) [Mass/Vol] 31.4 g/dL 32-36 [facility] Platelet mean volume (Bld) [Entitic vol] 9.0 fL 6.2-12.0 [facility] Platelets (Bld) [#/Vol] 294 10*3/uL 150-450 [facility] No Panel InformationOrdered By: Sarah Toth on 07-18-2023 Estimated GFR (MDRD) Amer 65 mL/min >60 [facility] Comment on above: GFR Calc Estimated GFR (MDRD) Non-Af Amer 54 mL/min >60 [facility] Comment on above: Non- GFR Calc VLDL Cholesterol 34 mg/dL 5-40 [facility] RBC Auto (Bld) [#/Vol]Ordere d By: Sarah Toth on 07-18-2023 RBC (Bld) [#/Vol] 4.90 10*6/uL 4.2-5.4 [facility] Serum or plasma calcium gavi urement (mass/volume)Ordered By: Sarah Toth on 07-18-2023 Calcium [Mass/Vol] 8.7 mg/dL 8.5-10.1 [facility] Serum or plasma creatinine m easurement (mass/volume)Ordered By: Sarah Ttoh on 07-18-2023 Creatinine [Mass/Vol] 1.07 mg/dL 0.55-1.02 [facility] Comment on above: The validity of the calculated GFR & GFRAA in patients over 70 years has not been determined. Clinical correlation is essential. Serum or plasma urea nitroge n measurement (mass/volume)Ordered By: Sarah Toth on 07-18-2023 Urea nitrogen [Mass/Vol] 27 mg/dL 7-18 [facility] Thin prep Papanicolaou smear with manual screeningOrdered By: Sarah Toth on 07-18-2023 Thin prep Papanicolaou smear with manual screening 3.2 g/dL 3.2-5.0 [facility] Thin prep Papanicolaou smear with manual screening 9 U/L 15-37 [facility] Thin prep Papanicolaou smear with manual screening 2 5-15 [facility] Thin prep Papanicolaou smear with manual screening 58.7 mg/L NO RANGE EST. [facility] Whole blood hemoglobin A1c/t otal hemoglobin ratio (mass fraction)Ordered By: Sarah Toth on 07-18-2023 HbA1c (Bld) [Mass fraction] 6.8 % 3.8-5.6 [facility] Comment on above: Normal < 5.7 % Predi abetic 5.7 - 6.4 % Diabetic >or= 6.5 % Please note range changes. US ABD RIGHT UPPER QUADRANTo n 03-05-2023 US ABD RIGHT UPPER QUADRANT * * *Final Report* * * DATE OF EXAM: Mar 05 2023 9:17AM U 1032 - US ABD RIGHT UPPER QUADRANT [...] lesion Cholelithiasis Suboptimal visualization of the pancreas Charger Tester: TEMITOPE Transcribe Date/Time: Mar 05 2023 10:37A Dictated by : KEILA VALVERDE MD This examination was interpreted and the report reviewed and electronically signed by: KEILA VALVERDE MD on Mar 05 2023 10:39AM EST [id number] Normal [facility] Absolute lymphocyte countOrd ered By: Lico Noel on 02-01-2023 Lymphocytes Auto (Unsp spec) [#/Vol] 2.12 10*3/uL 0.83-4.51 [facility] Basophil percentageOrdered B y: Lico Noel on 02-01-2023 Basophils/100 WBC (Bld) 0.6 % 0-1 [facility] Chloride [Moles/Vol] 106 mmol/L 98-107 [facility] Eosinophils/100 WBC (Bld) 3.1 % 0-5 [facility] Glucose [Mass/Vol] 228 mg/dL 74-106 [facility] Comment on above: Glucose result great er than or equal to 200 mg/dLsuggests DIABETES MELLITUS per A.D.A. criteria. Neutrophils (Bld) [#/Vol] 3.9 10*3/uL 2.0-7.7 [facility] Neutrophils/100 WBC (Bld) 58.2 % 47-70 [facility] Potassium [Moles/Vol] 4.3 mmol/L 3.5-5.1 [facility] Sodium [Moles/Vol] 137 mmol/L 136-145 [facility] WBC (Bld) [#/Vol] 6.7 10*3/uL 4.4-11.0 [facility] Blood erythrocytes count (nu mber/volume)Ordered By: Lico Noel on 02-01-2023 RBC (Bld) [#/Vol] 4.77 10*6/uL 4.2-5.4 [facility] Blood hemoglobin measurement (mass/volume)Ordered By: Lico Noel on 02-01-2023 Hemoglobin (Bld) [Mass/Vol] 13.4 g/dL 12.0-15.0 [facility] Blood lymphocytes/100 leukoc ytesOrdered By: Lico Noel on 02-01-2023 Lymphocytes/100 WBC (Bld) 31.5 % 19-41 [facility] Blood monocytes/100 leukocyt esOrdered By: Lico Noel on 02-01-2023 Monocytes/100 WBC (Bld) 6.3 % 0-10 [facility] Blood platelet mean volumeOr dered By: Lico Noel on 02-01-2023 Platelet mean volume (Bld) [Entitic vol] 9.4 fL 6.2-12.0 [facility] Determination of erythrocyte mean corpuscular volume (MCV)Ordered By: Lico Noel on 02-01-2023 MCV (RBC) [Entitic vol] 89.5 fL 81-99 [facility] Hematocrit Auto (Bld) [Volum e fraction]Ordered By: Lico Noel on 02-01-2023 Hematocrit (Bld) [Volume fraction] 42.7 % 37-47 [facility] Laboratory - Chemistry and C hemistry - challengeOrdered By: Lico Noel on 02-01-2023 CO2 [Moles/Vol] 26.0 mmol/L 21.0-32.0 [facility] Urea nitrogen/Creatinine [Mass ratio] 23.0 mg/mg 10-20 [facility] Laboratory - Hematology and Cell countsOrdered By: Lico Noel on 02-01-2023 Erythrocyte distribution width (RBC) [Entitic vol] 44.9 fL 35.1-43.9 [facility] Erythrocyte distribution width (RBC) [Ratio] 13.5 % 11.6-14.6 [facility] Immature granulocytes/100 WBC (Bld) 0.300 % 0.0-0.9 [facility] Comment on above: IG% - Immature Granu locytes (promyelocytes, myelocytes and metamyelocytes) > 1% indicates that a LEFT SHIFT is Present. MCH (RBC) [Entitic mass] 28.1 pg 27.0-32.0 [facility] Nucleated RBC/100 WBC (Bld) [Ratio] 0 % 0-5 [facility] MCHC Auto (RBC) [Mass/Vol]Or dered By: Lico Noel on 02-01-2023 MCHC (RBC) [Mass/Vol] 31.4 g/dL 32-36 [facility] No Panel InformationOrdered By: Lico Noel on 02-01-2023 Estimated GFR (MDRD) Amer 61 mL/min >60 [facility] Comment on above: GFR Calc Estimated GFR (MDRD) Non-Af Amer 51 mL/min >60 [facility] Comment on above: Non- GFR Calc Thyroid Stimulating Hormone (TSH) 1.73 uIU/mL 0.358-3.74 [facility] Platelets bldOrdered By: Tucker Noel on 02-01-2023 Platelets (Bld) [#/Vol] 325 10*3/uL 150-450 [facility] Serum or plasma calcium gavi urement (mass/volume)Ordered By: Lico Noel on 02-01-2023 Calcium [Mass/Vol] 8.3 mg/dL 8.5-10.1 [facility] Serum or plasma creatinine m easurement (mass/volume)Ordered By: Lico Noel on 02-01-2023 Creatinine [Mass/Vol] 1.13 mg/dL 0.55-1.02 [facility] Comment on above: The validity of the calculated GFR & GFRAA in patients over 70 years has not been determined. Clinical correlation is essential. Serum or plasma urea nitroge n measurement (mass/volume)Ordered By: Lico Noel on 02-01-2023 Urea nitrogen [Mass/Vol] 26 mg/dL 7-18 [facility] Thin prep Papanicolaou smear with manual screeningOrdered By: Lico Noel on 02-01-2023 Thin prep Papanicolaou smear with manual screening 5 5-15 [facility] Basophil percentageOrdered B y: GENIE ENCARNACION on 12-27-2022 Bilirubin [Mass/Vol] 0.60 mg/dL 0.20-1.00 [facility] Comment on above: For patients on eltr ombopag therapy, use of Dimension [place] TBIL is not recommended. Chloride [Moles/Vol] 106 mmol/L 98-107 [facility] Cholesterol [Mass/Vol] 183 mg/dL <200 [facility] Comment on above: <200 mg/dL Desirable 200-240 mg/dL Borderline >240 mg/dL High Risk Glucose [Mass/Vol] 222 mg/dL 74-106 [facility] Comment on above: Glucose result great er than or equal to 200 mg/dLsuggests DIABETES MELLITUS per A.D.A. criteria. Potassium [Moles/Vol] 4.0 mmol/L 3.5-5.1 [facility] Protein [Mass/Vol] 6.6 g/dL 6.4-8.2 [facility] Sodium [Moles/Vol] 139 mmol/L 136-145 [facility] Triglyceride [Mass/Vol] 127 mg/dL <199 [facility] Comment on above: The drugs N-Acetylcy steine and Metamizole may falsely depress this assay.Serum Triglycerides Reference Interval Normal <150 mg/dL Borderline high 150 - 199 mg/dL High 200 - 499 mg/dL Very High > or = 500 mg/dL WBC (Bld) [#/Vol] 7.6 10*3/uL 4.4-11.0 [facility] Blood erythrocytes count (nu mber/volume)Ordered By: [facility] on 12-27-2022 RBC (Bld) [#/Vol] 5.05 10*6/uL 4.2-5.4 [facility] Blood hemoglobin measurement (mass/volume)Ordered By: [facility] on 12-27-2022 Hemoglobin (Bld) [Mass/Vol] 14.1 g/dL 12.0-15.0 [facility] Blood platelet mean volumeOr dered By: [facility] on 12-27-2022 Platelet mean volume (Bld) [Entitic vol] 9.4 fL 6.2-12.0 [facility] Determination of erythrocyte mean corpuscular volume (MCV)Ordered By: [facility] on 12-27-2022 MCV (RBC) [Entitic vol] 88.7 fL 81-99 [facility] Hematocrit Auto (Bld) [Volum e fraction]Ordered By: [facility] on 12-27-2022 Hematocrit (Bld) [Volume fraction] 44.8 % 37-47 [facility] Laboratory - Chemistry and C hemistry - challengeOrdered By: [facility] on 12-27-2022 ALP [Catalytic activity/Vol] 73 U/L 45-117 [facility] ALT [Catalytic activity/Vol] 12 U/L 13-56 [facility] CO2 [Moles/Vol] 24.0 mmol/L 21.0-32.0 [facility] Cobalamin (Vitamin B12) [Mass/Vol] 295 pg/mL 211-911 [facility] Globulin (S) [Mass/Vol] 3.6 g/dL 2.2-4.2 [facility] Urea nitrogen/Creatinine [Mass ratio] 18.6 mg/mg 10-20 [facility] Laboratory - Hematology and Cell countsOrdered By: GENIE ENCARNACION on 12-27-2022 Erythrocyte distribution width (RBC) [Entitic vol] 43.3 fL 35.1-43.9 [facility] Erythrocyte distribution width (RBC) [Ratio] 13.3 % 11.6-14.6 [facility] MCH (RBC) [Entitic mass] 27.9 pg 27.0-32.0 [facility] MCHC Auto (RBC) [Mass/Vol]Or dered By: GENIE ENCARNACION on 12-27-2022 MCHC (RBC) [Mass/Vol] 31.5 g/dL 32-36 [facility] No Panel InformationOrdered By: GENIE ENCARNACION on 12-27-2022 Estimated GFR (MDRD) Amer 69 mL/min >60 [facility] Comment on above: GFR Calc Estimated GFR (MDRD) Non-Af Amer 57 mL/min >60 [facility] Comment on above: Non- GFR Calc Thyroid Stimulating Hormone (TSH) 1.27 uIU/mL 0.358-3.74 [facility] Platelets bldOrdered By: FAB TAYLOR on 12-27-2022 Platelets (Bld) [#/Vol] 306 10*3/uL 150-450 [facility] Serum or plasma albumin agvi urement (mass/volume)Ordered By: GENIE ENCARNACION on 12-27-2022 Albumin [Mass/Vol] 3.0 g/dL 3.2-5.0 [facility] Serum or plasma albumin/glob ulin mass ratioOrdered By: GENIE ANKENY on 12-27-2022 Albumin/Globulin [Mass ratio] 0.8 {ratio} 0.9-2.4 [facility] Serum or plasma calcitriol m easurement (mass/volume)Ordered By: GENIE ENCARNACION on 12-27-2022 1,25-dihydroxyvitamin D3 [Mass/Vol] 29.9 pg/mL 24.8-81.5 [facility] Comment on above: [facility] [place], [place] [id number] Director: Chadwick Kim MD, Phone: [phone] Serum or plasma calcium gavi urement (mass/volume)Ordered By: [facility] on 12-27-2022 Calcium [Mass/Vol] 8.5 mg/dL 8.5-10.1 [facility] Serum or plasma cholesterol in HDL measurement (mass/volume)Ordered By: [facility] on 12-27-2022 Cholesterol in HDL [Mass/Vol] 51 mg/dL >40 [facility] Comment on above: The drugs N-Acetylcy steine and Metamizole may falsely depress this assay. Reference Range HDL <40 mg/dL Low HDL Cholesterol HDL >or= 60 mg/dL High HDL Cholesterol Serum or plasma cholesterol in VLDL measurement (mass/volume)Ordered By: [facility] on 12-27-2022 Cholesterol in VLDL [Mass/Vol] 25 mg/dL 5-40 [facility] Serum or plasma creatinine m easurement (mass/volume)Ordered By: [facility] on 12-27-2022 Creatinine [Mass/Vol] 1.02 mg/dL 0.55-1.02 [facility] Comment on above: The validity of the calculated GFR & GFRAA in patients over 70 years has not been determined. Clinical correlation is essential. Serum or plasma low density lipoprotein (LDL) cholesterol measurement (mass/volume)Ordered By: [facility] on 12-27-2022 Cholesterol in LDL [Mass/Vol] 107 mg/dL 0-130 [facility] Serum or plasma urea nitroge n measurement (mass/volume)Ordered By: [facility] on 12-27-2022 Urea nitrogen [Mass/Vol] 19 mg/dL 7-18 [facility] Thin prep Papanicolaou smear with manual screeningOrdered By: [facility] on 12-27-2022 Thin prep Papanicolaou smear with manual screening 9 U/L 15-37 [facility] Thin prep Papanicolaou smear with manual screening 9 5-15 [facility] Thin prep Papanicolaou smear with manual screening 121.0 mg/L NO RANGE EST. [facility] Basophil percentageOrdered B y: [facility] on 10-02-2022 Chloride [Moles/Vol] 103 mmol/L 98-107 [facility] Glucose [Mass/Vol] 173 mg/dL 74-106 [facility] Comment on above: Fasting Glucose resu lt greater than or equal to 126 mg/dL suggests DIABETES MELLITUS per A.D.A. criteria. Potassium [Moles/Vol] 4.1 mmol/L 3.5-5.1 [facility] Sodium [Moles/Vol] 133 mmol/L 136-145 [facility] Laboratory - Chemistry and C hemistry - challengeOrdered By: [facility] on 10-02-2022 CO2 [Moles/Vol] 26.0 mmol/L 21.0-32.0 [facility] Urea nitrogen/Creatinine [Mass ratio] 19.1 mg/mg 10-20 [facility] No Panel InformationOrdered By: [facility] on 10-02-2022 Estimated GFR (MDRD) Amer 71 mL/min >60 [facility] Comment on above: GFR Calc Estimated GFR (MDRD) Non-Af Amer 59 mL/min >60 [facility] Comment on above: Non- GFR Calc Serum or plasma calcium gavi urement (mass/volume)Ordered By: [facility] on 10-02-2022 Calcium [Mass/Vol] 8.9 mg/dL 8.5-10.1 [facility] Serum or plasma creatinine m easurement (mass/volume)Ordered By: [facility] on 10-02-2022 Creatinine [Mass/Vol] 1.00 mg/dL 0.55-1.02 [facility] Comment on above: The validity of the calculated GFR & GFRAA in patients over 70 years has not been determined. Clinical correlation is essential. Serum or plasma urea nitroge n measurement (mass/volume)Ordered By: [facility] on 10-02-2022 Urea nitrogen [Mass/Vol] 19 mg/dL 7-18 [facility] Thin prep Papanicolaou smear with manual screeningOrdered By: [facility] on 10-02-2022 Thin prep Papanicolaou smear with manual screening 4 5-15 [facility] Basophil percentageOrdered B y: [facility] on 07-31-2022 Bilirubin [Mass/Vol] 1.10 mg/dL 0.20-1.00 [facility] Comment on above: For patients on eltr ombopag therapy, use of Dimension [place] TBIL is not recommended. Chloride [Moles/Vol] 103 mmol/L 98-107 [facility] Glucose [Mass/Vol] 270 mg/dL 74-106 [facility] Comment on above: Glucose result great er than or equal to 200 mg/dLsuggests DIABETES MELLITUS per A.D.A. criteria. Potassium [Moles/Vol] 4.1 mmol/L 3.5-5.1 [facility] Protein [Mass/Vol] 7.3 g/dL 6.4-8.2 [facility] Sodium [Moles/Vol] 138 mmol/L 136-145 [facility] WBC (Bld) [#/Vol] 7.6 10*3/uL 4.4-11.0 [facility] Blood erythrocytes count (nu mber/volume)Ordered By: [facility] on 07-31-2022 RBC (Bld) [#/Vol] 5.07 10*6/uL 4.2-5.4 [facility] Blood hemoglobin measurement (mass/volume)Ordered By: [facility] on 07-31-2022 Hemoglobin (Bld) [Mass/Vol] 14.9 g/dL 12.0-15.0 [facility] Blood platelet mean volumeOr dered By: [facility] on 07-31-2022 Platelet mean volume (Bld) [Entitic vol] 9.4 fL 6.2-12.0 [facility] Determination of erythrocyte mean corpuscular volume (MCV)Ordered By: [facility] on 07-31-2022 MCV (RBC) [Entitic vol] 90.1 fL 81-99 [facility] Hematocrit Auto (Bld) [Volum e fraction]Ordered By: [facility] on 07-31-2022 Hematocrit (Bld) [Volume fraction] 45.7 % 37-47 [facility] Laboratory - Chemistry and C hemistry - challengeOrdered By: [facility] on 07-31-2022 ALP [Catalytic activity/Vol] 86 U/L 45-117 [facility] ALT [Catalytic activity/Vol] 12 U/L 13-56 [facility] CO2 [Moles/Vol] 24.0 mmol/L 21.0-32.0 [facility] Globulin (S) [Mass/Vol] 3.8 g/dL 2.2-4.2 [facility] Urea nitrogen/Creatinine [Mass ratio] 21.9 mg/mg 10- [facility] Laboratory - Hematology and Cell countsOrdered By: GENIE ENCARNACION on 07-31-2022 Erythrocyte distribution width (RBC) [Entitic vol] 41.1 fL 35.1-43.9 [facility] Erythrocyte distribution width (RBC) [Ratio] 12.6 % 11.6-14.6 [facility] MCH (RBC) [Entitic mass] 29.4 pg 27.0-32.0 [facility] MCHC Auto (RBC) [Mass/Vol]Or dered By: GENIE ENCARNACION on 07-31-2022 MCHC (RBC) [Mass/Vol] 32.6 g/dL 32-36 [facility] No Panel InformationOrdered By: GENIE ENCARNACION on 07-31-2022 Estimated GFR (MDRD) Amer 67 mL/min >60 [facility] Comment on above: GFR Calc Estimated GFR (MDRD) Non-Af Amer 55 mL/min >60 [facility] Comment on above: Non- GFR Calc Platelets bldOrdered By: FAB TAYLOR on 07-31-2022 Platelets (Bld) [#/Vol] 349 10*3/uL 150-450 [facility] Serum or plasma albumin gavi urement (mass/volume)Ordered By: GENIE ENCARNACION on 07-31-2022 Albumin [Mass/Vol] 3.5 g/dL 3.2-5.0 [facility] Serum or plasma albumin/glob ulin mass ratioOrdered By: GENIE ENCARNACION on 07-31-2022 Albumin/Globulin [Mass ratio] 0.9 {ratio} 0.9-2.4 [facility] Serum or plasma calcium gavi urement (mass/volume)Ordered By: GENIE ENCARNACION on 07-31-2022 Calcium [Mass/Vol] 9.1 mg/dL 8.5-10.1 [facility] Serum or plasma creatinine m easurement (mass/volume)Ordered By: GENIE ENCARNACION on 07-31-2022 Creatinine [Mass/Vol] 1.05 mg/dL 0.55-1.02 [facility] Comment on above: The validity of the calculated GFR & GFRAA in patients over 70 years has not been determined. Clinical correlation is essential. Serum or plasma urea nitroge n measurement (mass/volume)Ordered By: [facility] on 07-31-2022 Urea nitrogen [Mass/Vol] 23 mg/dL 7-18 [facility] Thin prep Papanicolaou smear with manual screeningOrdered By: [facility] on 07-31-2022 Thin prep Papanicolaou smear with manual screening 5 U/L 15-37 [facility] Thin prep Papanicolaou smear with manual screening 11 5-15 [facility] Thin prep Papanicolaou smear with manual screening 181.0 mg/L NO RANGE EST. [facility] Absolute lymphocyte countOrd ered By: Dr. Herr on 06-01-2022 Lymphocytes Auto (Unsp spec) [#/Vol] 1.95 10*3/uL 0.83-4.51 [facility] Basophil percentageOrdered B y: Dr. Herr on 06-01-2022 Basophils/100 WBC (Bld) 0.7 % 0-1 [facility] Bilirubin [Mass/Vol] 0.90 mg/dL 0.20-1.00 [facility] Comment on above: For patients on eltr ombopag therapy, use of Dimension [place] TBIL is not recommended. Chloride [Moles/Vol] 104 mmol/L 98-107 [facility] Eosinophils/100 WBC (Bld) 1.6 % 0-5 [facility] Glucose [Mass/Vol] 318 mg/dL 74-106 [facility] Comment on above: Glucose result great er than or equal to 200 mg/dLsuggests DIABETES MELLITUS per A.D.A. criteria. Neutrophils (Bld) [#/Vol] 4.5 10*3/uL 2.0-7.7 [facility] Neutrophils/100 WBC (Bld) 61.0 % 47-70 [facility] Potassium [Moles/Vol] 4.3 mmol/L 3.5-5.1 [facility] Protein [Mass/Vol] 7.0 g/dL 6.4-8.2 [facility] Sodium [Moles/Vol] 134 mmol/L 136-145 [facility] WBC (Bld) [#/Vol] 7.4 10*3/uL 4.4-11.0 [facility] Blood erythrocytes count (nu mber/volume)Ordered By: Dr. Herr on 06-01-2022 RBC (Bld) [#/Vol] 5.01 10*6/uL 4.2-5.4 [facility] Blood hemoglobin measurement (mass/volume)Ordered By: Dr. Herr on 06-01-2022 Hemoglobin (Bld) [Mass/Vol] 14.8 g/dL 12.0-15.0 [facility] Blood lymphocytes/100 leukoc ytesOrdered By: Dr. Herr on 06-01-2022 Lymphocytes/100 WBC (Bld) 26.4 % 19-41 [facility] Blood monocytes/100 leukocyt esOrdered By: Dr. Herr on 06-01-2022 Monocytes/100 WBC (Bld) 9.6 % 0-10 [facility] Blood platelet mean volumeOr dered By: Dr. Herr on 06-01-2022 Platelet mean volume (Bld) [Entitic vol] 9.3 fL 6.2-12.0 [facility] Determination of erythrocyte mean corpuscular volume (MCV)Ordered By: Dr. Herr on 06-01-2022 MCV (RBC) [Entitic vol] 88.6 fL 81-99 [facility] Hematocrit Auto (Bld) [Volum e fraction]Ordered By: Dr. Herr on 06-01-2022 Hematocrit (Bld) [Volume fraction] 44.4 % 37-47 [facility] Influenza virus A and B and SARS-CoV-2 (COVID-19) Ag panel - Upper respiratory specimOrdered By: Dr. Herr on 06-01-2022 SARS-CoV-2 & FLU Antigen (Rapid) Influenzae A [facility] Laboratory - Chemistry and C hemistry - challengeOrdered By: Dr. Herr on 06-01-2022 ALP [Catalytic activity/Vol] 124 U/L 45-117 [facility] ALT [Catalytic activity/Vol] 24 U/L 13-56 [facility] CO2 [Moles/Vol] 24.0 mmol/L 21.0-32.0 [facility] Globulin (S) [Mass/Vol] 3.6 g/dL 2.2-4.2 [facility] Urea nitrogen/Creatinine [Mass ratio] 13.4 mg/mg 10-20 [facility] - Hematology and Cell countsOrdered By: Dr. Herr on 06-01-2022 Erythrocyte distribution width (RBC) [Entitic vol] 41.5 fL 35.1-43.9 [facility] Erythrocyte distribution width (RBC) [Ratio] 12.8 % 11.6-14.6 [facility] Immature granulocytes/100 WBC (Bld) 0.700 % 0.0-0.9 [facility] Comment on above: IG% - Immature Granu locytes (promyelocytes, myelocytes and metamyelocytes) > 1% indicates that a LEFT SHIFT is Present. MCH (RBC) [Entitic mass] 29.5 pg 27.0-32.0 [facility] Nucleated RBC/100 WBC (Bld) [Ratio] 0 % 0-5 [facility] MCHC Auto (RBC) [Mass/Vol]Or dered By: Dr. Herr on 06-01-2022 MCHC (RBC) [Mass/Vol] 33.3 g/dL 32-36 [facility] No Panel InformationOrdered By: Dr. Herr on 06-01-2022 Estimated Creatinine Clearance Calc 49.95 ml/min [facility] Estimated GFR (MDRD) Amer 73 mL/min >60 [facility] Comment on above: GFR Calc Estimated GFR (MDRD) Non-Af Amer 60 mL/min >60 [facility] Comment on above: Non- GFR Calc Platelets bldOrdered By: Dr. Herr on 06-01-2022 Platelets (Bld) [#/Vol] 254 10*3/uL 150-450 [facility] Serum or plasma albumin gavi urement (mass/volume)Ordered By: Dr. Herr on 06-01-2022 Albumin [Mass/Vol] 3.4 g/dL 3.2-5.0 [facility] Serum or plasma albumin/glob ulin mass ratioOrdered By: Dr. Herr on 06-01-2022 Albumin/Globulin [Mass ratio] 0.9 {ratio} 0.9-2.4 [facility] Serum or plasma calcium gavi urement (mass/volume)Ordered By: Dr. Herr on 06-01-2022 Calcium [Mass/Vol] 9.0 mg/dL 8.5-10.1 [facility] Serum or plasma creatinine m easurement (mass/volume)Ordered By: Dr. Herr on 06-01-2022 Creatinine [Mass/Vol] 0.97 mg/dL 0.55-1.02 [facility] Comment on above: The validity of the calculated GFR & GFRAA in patients over 70 years has not been determined. Clinical correlation is essential. Serum or plasma urea nitroge n measurement (mass/volume)Ordered By: Dr. Herr on 06-01-2022 Urea nitrogen [Mass/Vol] 13 mg/dL 7-18 [facility] Thin prep Papanicolaou smear with manual screeningOrdered By: Dr. Herr on 06-01-2022 Thin prep Papanicolaou smear with manual screening 12 U/L 15-37 [facility] Thin prep Papanicolaou smear with manual screening 6 5-15 [facility] OBSOLETEon 02-18-2020 OBSOLETE Procedure (AKEPD) THIAGO FLORES ([id number]) 1955 F Date Time Provider Department 02/18/20 8:00 AM REM DEVICE CK AKEPD During your visit today, we recorded the following information about you: Referring Provider: NAHOMY GARCIA [[id number]] Allergies As of Date: 02/18/2020 Noted Allergy Reaction RED DYE 11/10/2015 16 - Unknown [id number] REDUCTASE INHIBIT*04/02/2018 17 - Myalgia Comments: Severe [...] failure (HCC) [I50.22] 12/27/2015 Coronary atherosclerosis of nikolai coronary art*12/27/2015 Palpitations [R00.2] Obstructive sleep apnea [...] Encounter Status:Closed by GUERO MORTENSEN on 02/18/20 [facility] OBSOLETEon 11-11-2019 OBSOLETE Procedure (AKEPD) THIAGO FLORES ([id number]) 1955 F Date Time Provider Department 11/11/19 8:00 AM REM DEVICE CK AKEPD During your visit today, we recorded the following information about you: Referring Provider: NAHOMY GARCIA [[id number]] Allergies As of Date: 11/11/2019 Noted Allergy Reaction RED DYE 11/10/2015 16 - Unknown [id number] REDUCTASE INHIBIT*04/02/2018 17 - Myalgia Comments: Severe [...] failure (HCC) [I50.22] 12/27/2015 Coronary atherosclerosis of nikolai coronary art*12/27/2015 Palpitations [R00.2] Obstructive sleep apnea [...] Encounter Status:Closed by GUERO MORTENSEN on 11/11/19 [facility] OBSOLETEon 08-05-2019 OBSOLETE Procedure (AKEPD) THIAGO FLORES ([id number]) 1955 F Date Time Provider Department 08/05/19 8:00 AM REM DEVICE CK AKEPD During your visit today, we recorded the following information about you: Referring Provider: NAHOMY GARCIA [[id number]] Allergies As of Date: 08/05/2019 Noted Allergy Reaction RED DYE 11/10/2015 16 - Unknown [id number] REDUCTASE INHIBIT*04/02/2018 17 - Myalgia Comments: Severe [...] failure (HCC) [I50.22] 12/27/2015 Coronary atherosclerosis of nikolai coronary art*12/27/2015 Palpitations [R00.2] Obstructive sleep apnea [...] Encounter Status:Closed by BRANDON GARCIA on 08/06/19 [facility] OBSOLETEon 05-23-2019 OBSOLETE Procedure (AKEPD) THIAGO FLORES ([id number]) 1955 F Date Time Provider Department 05/23/19 8:00 AM DEVICE CLINIC 1 AKEPD During your visit today, we recorded the following information about you: Referring Provider: NAHOMY GARCIA [[id number]] Allergies As of Date: 05/23/2019 Noted Allergy Reaction RED DYE 11/10/2015 16 - Unknown [id number] REDUCTASE INHIBIT*04/02/2018 17 - Myalgia Comments: Severe cramping Date Reviewed: 04/02/2018 Reviewed by: Winter (Abner) Frederick - Fully Assessed Reason for Visit: ICD [3662] Visit Diagnosis:NICM (nonischemic cardiomyopathy) ([facility]) [I42.8] Prescriptions as of 05/23/2019 [...] failure (HCC) [I50.22] 12/27/2015 Coronary atherosclerosis of nikolai coronary art*12/27/2015 Palpitations [R00.2] Obstructive sleep apnea [...] Encounter Status:Closed by LICO BARAHONA on 05/23/19 [facility] Office Visit: [facility] 03-12-20 17 Fall risk assessment No Invalid Interpretation Code [facility] Work Phone: [phone] Protein mass conc Done Invalid Interpretation Code [facility] Work Phone: [phone] Office Visit: [facility] 12-02-19 17 Documentation of current medications (procedure) Done Invalid Interpretation Code [facility] Work Phone: [phone] Fall risk assessment No Invalid Interpretation Code [facility] Work Phone: [phone] Protein mass conc Done [facility] Work Phone: [phone] Lab Report: BNP,B-Type NATRI URETIC PEPTIDEon 08-31-2016 BNP 22.2 pg/mL Invalid Interpretation Code 0-100 [facility] Work Phone: [phone] Lab Report: Basic Metabolic Profile (BMP)on 08-31-2016 Anion gap 11 mmol/L Invalid Interpretation Code 5-15 [facility] Work Phone: [phone] Anion gap 4 molar conc 11 Invalid Interpretation Code 5-15 [facility] Work Phone: [phone] Anion gap molar conc 11 mmol/L 5-[address] [facility] Work Phone: [phone] BUN/Creatinine Ratio 29.9 RATIO High 10- [facility] Work Phone: [phone] Calcium 9.2 mg/dL Invalid Interpretation Code 8.5-10.1 [facility] Work Phone: [phone] Chloride 101 mmol/L Invalid Interpretation Code 98-107 [facility] Work Phone: [phone] CO2 21.0 mmol/L Invalid Interpretation Code 21.0-32.0 [facility] Work Phone: [phone] CO2 ppres (BldV) 21.0 mmol/L Invalid Interpretation Code 21.0-32.0 [facility] Work Phone: [phone] Creatinine 1.17 mg/dL High 0.55-1.02 [facility] Work Phone: [phone] eGFR (non-black) 50 mL/min/{1.73_m2} Low >60 [facility] Work Phone: [phone] eGFR (non-black) 60 mL/min/{1.73_m2} Invalid Interpretation Code >60 [facility] Work Phone: [phone] EST GFR - AA 60 mL/min Invalid Interpretation Code >60 [facility] Work Phone: [phone] Glucose 292 mg/dL High 70-110 [facility] Work Phone: [phone] Glucose mass conc 292 mg/dL High 70-110 [facility] Work Phone: [phone] Potassium 4.8 mmol/L Invalid Interpretation Code 3.5-5.1 [facility] Work Phone: [phone] Sodium 133 mmol/L Low 136-145 [facility] Work Phone: [phone] Urea nitrogen 35 mg/dL High 7-18 [facility] Work Phone: [phone] Office Visiton 08-23-2016 Dietary management education, guidance, and counseling (procedure) yes Invalid Interpretation Code [facility] Work Phone: [phone] Clinical Lists Update: Pre08-18-2016 Left ventricular Ejection fraction 20 % Invalid Interpretation Code [facility] Work Phone: [phone] Clinical Lists Update: 03-31-2016 Alanine aminotransferase (ALT) 13 U/L Invalid Interpretation Code [facility] Work Phone: [phone] Aspartate aminotransferase (AST) 13 U/L Invalid Interpretation Code [facility] Work Phone: [phone] Cholesterol 232 mg/dL High [facility] Work Phone: [phone] Cholesterol to HDL Ratio 5.27 {ratio} High [facility] Work Phone: [phone] HbA1c 7.2 % High [facility] Work Phone: [phone] HDL Cholesterol 44 mg/dL Low [facility] Work Phone: [phone] LDL Cholesterol 137 mg/dL High [facility] Work Phone: [phone] LDL/HDL ratio, serum 3.11 Invalid Interpretation Code [facility] Work Phone: [phone] Triglyceride 256 mg/dL High [facility] Work Phone: [phone] very low density lipoproteins 51 mg/dL High [facility] Work Phone: [phone] Append: Dr. Han Mckeon [facility] Cardiologyon 03-01-2016 Clinical consultation report (record artifact) [id number] Invalid Interpretation Code [facility] Work Phone: [phone] Clinical Lists Update: Prelo rolled glass crosscutter 01-13-2016 basophils as percent of blood leukocytes, manual count 0.6 % Invalid Interpretation Code [facility] Work Phone: [phone] BNP 34.5 pg/mL Invalid Interpretation Code [facility] Work Phone: [phone] eGFR (non-black) 48 mL/min/{1.73_m2} Low [facility] Work Phone: [phone] eGFR (non-black) 58 mL/min/{1.73_m2} Low [facility] Work Phone: [phone] eosinophils as percent of blood leukocytes, manual count 7.7 % High [facility] Work Phone: [phone] Erythrocyte distribution width Ratio (RBC) 13.3 % [facility] Work Phone: [phone] Erythrocytes (RBC) 3.33 10*6/uL Low [facility] Work Phone: [phone] Glomerular Filtration Rate 58 mL/min/1.73m2 Low [facility] Work Phone: [phone] Hematocrit (HCT) 30.0 % Low [facility] Work Phone: [phone] Hematocrit Volume Fraction (Bld) 30.0 % Low [facility] Work Phone: [phone] Hemoglobin (HGB) 10.0 g/dL Low [facility] Work Phone: [phone] Lymphocytes/100 leukocytes 36.2 % Invalid Interpretation Code [facility] Work Phone: [phone] Lymphocytes/100 WBC (Bld) 36.2 % [facility] Work Phone: [phone] Magnesium 1.9 mg/dL Invalid Interpretation Code [facility] Work Phone: [phone] MCH 30.0 pg Invalid Interpretation Code [facility] Work Phone: [phone] MCH Entitic mass (RBC) 30.0 pg [facility] Work Phone: [phone] MCHC 33.3 g/dL Invalid Interpretation Code [facility] Work Phone: [phone] MCHC mass conc (RBC) 33.3 g/dL [facility] Work Phone: [phone] MCV 90.1 fL Invalid Interpretation Code [facility] Work Phone: [phone] MCV Entitic volume (RBC) 90.1 fL [facility] Work Phone: [phone] Monocytes/100 leukocytes 8.2 % Invalid Interpretation Code [facility] Work Phone: [phone] Monocytes/100 WBC (Bld) 8.2 % [facility] Work [phone] neutrophils, band form as percent of blood leukocytes, manual count 46.6 % Low [facility] Work Phone: [phone] Platelet mean volume Entitic volume (Bld) 9.1 fL [facility] Work Phone: [phone] Platelets 301 10*3/mm3 Invalid Interpretation Code [facility] Work Phone: [phone] Platelets #/vol (Bld) 301 10*3/mm3 [facility] Work Phone: [phone] PMV by Raji 9.1 fL Invalid Interpretation Code [facility] Work Phone: [phone] RBC #/vol (Bld) 3.33 10*6/uL Low [facility] Work Phone: [phone] RDW-CA 13.3 % Invalid Interpretation Code [facility] Work Phone: [phone] Thyroid stimulating hormone (TSH) 1.76 u[iU]/mL Invalid Interpretation Code [facility] Work Phone: [phone] WBC #/vol (Bld) 6.7 10*3/uL [facility] Work Phone: [phone] WBC (Leukocytes) 6.7 10*3/uL Invalid Interpretation Code [facility] Work Phone: [phone] Clinical Lists Update: Prelo rolled glass crosscutter 01-11-2016 Albumin 4.1 g/dL Invalid Interpretation Code [facility] Work Phone: [phone] Alkaline phosphatase (ALP) 58 U/L Invalid Interpretation Code [facility] Work Phone: [phone] ALP enzyme act/vol (Bld) 58 U/L Invalid Interpretation Code [facility] Work Phone: [phone] Bilirubin (total) 0.6 mg/dL Invalid Interpretation Code [facility] Work Phone: [phone] Protein 6.9 g/dL Invalid Interpretation Code [facility] Work Phone: [phone] Replaced Document: Jenn Lorenzo 10-22-2015 BUN (urea nitrogen) Sinus Rhythm -Left bundle branch block. ABNORMAL Invalid Interpretation Code [facility] Phone: [phone] EKG QRS axis -29 deg Invalid Interpretation Code [facility] Work Phone: [phone] GE use only - for [employer] import when terms are not otherwise specified 496 ms Invalid Interpretation Code [facility] Phone: [phone] P Larose 34 deg Invalid Interpretation Code [facility] Work Phone: [phone] P wave axis, electrocardiogram 34 deg Invalid Interpretation Code [facility] Work Phone: [phone] WA Interval 168 ms Invalid Interpretation Code [facility] Work Phone: [phone] WA interval, electrocardiogram 168 ms Invalid Interpretation Code [facility] Work Phone: [phone] Pulse (Heart Rate) 68 /min Invalid Interpretation Code [facility] Work Phone: [phone] QRS axis, electrocardiogram -29 deg Invalid Interpretation Code [facility] Work Phone: [phone] QRS Duration 174 ms Invalid Interpretation Code [facility] Work Phone: [phone] QRS duration, electrocardiogram 174 ms Invalid Interpretation Code [facility] Work Phone: [phone] QT Interval new path ms Invalid Interpretation Code [facility] Work Phone: [phone] QT interval, electrocardiogram new path ms Invalid Interpretation Code [facility] Work Phone: [phone] QTc Wilson 496 ms Invalid Interpretation Code [facility] Work Phone: [phone] T Larose 36 deg Invalid Interpretation Code [facility] Work Phone: [phone] T wave axis, electrocardiogram 36 deg Invalid Interpretation Code [facility] Work Phone: [phone] Urea nitrogen mass conc Sinus Rhythm -Le ft bundle branch block. ABNORMAL [facility] Work Phone: [phone] Office Visit: [facility] 07-22-19 16 Tobacco smoking status NHIS Former smoker Invalid Interpretation Code [facility] Work Phone: [phone] Tobacco use CPHS Former smoker Invalid Interpretation Code [facility] Work Phone: [phone] External Other: Preferred Me thod of Contacton 06-10-2015 methcontact phone Invalid Interpretation Code [facility] Phone: [phone] Patient's prefered method of contact phone Invalid Interpretation Code [facility] Phone: [phone] Office Visit: [facility] 06-10-20 15 cardiac risk group C Invalid Interpretation Code [facility] Work Phone: [phone] General cardiovascular disease 10Y risk [#] [place]D'Agostdenis N/A Invalid Interpretation Code [facility] Work Phone: [phone] Vital Signs Date Time Vital Sign Value Performing Clinician Faci lity 01-27-2025 14:58-0400 Body mass index (BMI) [Ratio] 44.9 kg/m2 Sarah Toth NP-C Work Phone: [facility] 01-27-2025 14:40-0400 Diastolic blood pressure 61 mm[Hg] Sarah Toth HUMAN RESOURCES MANAGER MANUFACTURING-C Work Phone: [phone] [place] [address] 01-27-2025 14:40-0400 Heart rate 66 /min Sarahamerico Toth HUMAN RESOURCES MANAGER MANUFA[employer]URING-C Work Phone: [phone] [place] [address] 01-27-2025 14:40-0400 Systolic blood pressure 136 mm[Hg] Sarahamerico Toth HUMAN RESOURCES MANAGER [employer]UFA[employer]URING-C Work Phone: [phone] [place] [address] 01-27-2025 13:33-0400 Body height 162.56 cm Sarahamerico Toth HUMAN RESOURCES MANAGER MANUFA[employer]URING-C Work Phone: [phone] [place] [address] 01-27-2025 13:33-0400 Body weight 118.7 kg Sarahamerico Toth HUMAN RESOURCES MANAGER MANUFA[employer]URING-C Work Phone: [phone] [place] [address] 01-27-2025 12:40-0400 Body temperature 98 [degF] Sarahamerico Toth HUMAN RESOURCES MANAGER MANUFA[employer]URING-C Work Phone: [phone] [place] [address] 01-27-2025 12:40-0400 Respiratory rate 17 /min Sarahamerico Toth HUMAN RESOURCES MANAGER [employer]UFA[employer]URING-C Work Phone: [phone] [place] [address] 01-27-2025 12:40-0400 SaO2% (BldA) [Mass fraction] 98 % Sarahamerico Toth HUMAN RESOURCES MANAGER [employer]UFA[employer]URING-[employer] Work Phone: [phone] [place] [address] 01-26-2025 15:46-0400 Body temperature 97.6 [degF] Sarahamerico Toth HUMAN RESOURCES MANAGER MANUFACTURING-C Work Phone: [phone] [place] [address] 01-26-2025 15:46-0400 Diastolic blood pressure 93 mm[Hg] Sarahamerico Toth HUMAN RESOURCES MANAGER MANUFACTURING-C Work Phone: [phone] [place] [address] 01-26-2025 15:46-0400 Heart rate 76 /min Sarah Toth HUMAN RESOURCES MANAGER [employer]UFA[employer]URING-[employer] Work Phone: [phone] [place] [address] 01-26-2025 15:46-0400 Respiratory rate 18 /min Sarah Toth HUMAN RESOURCES MANAGER MANUFA[employer]URING-[employer] Work Phone: [phone] [place] [address] 01-26-2025 15:46-0400 SaO2% (BldA) [Mass fraction] 99 % Sarah Toth HUMAN RESOURCES MANAGER MANUFACTURING-C Work Phone: [phone] [place] [address] 01-26-2025 15:46-0400 Systolic blood pressure 107 mm[Hg] Sarah Toth HUMAN RESOURCES MANAGER MANUFACTURING-C Work Phone: [phone] [place] [address] 01-26-2025 11:33-0400 Body height 162.56 cm Sarah Toth HUMAN RESOURCES MANAGER MANUFACTURING-C Work Phone: [phone] [place] [address] 01-26-2025 11:33-0400 Body mass index (BMI) [Ratio] 44.6 kg/m2 Sarah Toth HUMAN RESOURCES MANAGER MANUFACTURING-[employer] Work Phone: [phone] [place] [address] 01-26-2025 11:33-0400 Body weight 117.93 kg Sarah Toth HUMAN RESOURCES MANAGER [employer]UFA[employer]URING[employer] Work Phone: [phone] [place] [address] 12-28-2024 16:13-0400 Body temperature 96 [degF] Sarah Toth HUMAN RESOURCES MANAGER MANUFACTURING-C Work Phone: [phone] [place] [address] 12-28-2024 16:13-0400 Diastolic blood pressure 65 mm[Hg] Sarah Toth HUMAN RESOURCES MANAGER MANUFACTURING-C Work Phone: [phone] [place] [address] 12-28-2024 16:13-0400 Heart rate 60 /min Sarah Toth HUMAN RESOURCES MANAGER MANUFACTURING-C Work Phone: [phone] [place] [address] 12-28-2024 16:13-0400 Respiratory rate 20 /min Sarah Toth HUMAN RESOURCES MANAGER MANUFACTURING-C Work Phone: [phone] [place] [address] 12-28-2024 16:13-0400 SaO2% (BldA) [Mass fraction] 96 % Sarah Toth HUMAN RESOURCES MANAGER MANUFACTURING-C Work Phone: [phone] [place] [address] 12-28-2024 16:13-0400 Systolic blood pressure 135 mm[Hg] Sarah Toth HUMAN RESOURCES MANAGER MANUFACTURING-[employer] Work Phone: [phone] [place] [address] 12-28-2024 15:39-0400 Body height 162.56 cm Sarah Toth HUMAN RESOURCES MANAGER MANUFACTURING-[employer] Work Phone: [phone] [place] [address] 12-28-2024 15:39-0400 Body mass index (BMI) [Ratio] 44.9 kg/m2 Sarah Toth HUMAN RESOURCES MANAGER MANUFACTURING-C Work Phone: [phone] [place] [address] 12-28-2024 15:39-0400 Body weight 118.56 kg Sarah Toth HUMAN RESOURCES MANAGER MANUFACTURING-[employer] Work Phone: [phone] [place] [address] 12-25-2024 14:36-0400 Body height 162.56 cm Sarah Toth HUMAN RESOURCES MANAGER MANUFACTURING-C Work Phone: [phone] [place] [address] 12-25-2024 14:36-0400 Body mass index (BMI) [Ratio] 45.1 kg/m2 Sarah Toth HUMAN RESOURCES MANAGER MANUFACTURING-C Work Phone: [phone] [place] [address] 12-25-2024 14:36-0400 Body weight 119.29 kg Sarah Toth HUMAN RESOURCES MANAGER MANUFACTURING-[employer] Work Phone: [phone] [place] [address] 12-25-2024 14:36-0400 Diastolic blood pressure 72 mm[Hg] Sarah Toth HUMAN RESOURCES MANAGER MANUFACTURING-C Work Phone: [phone] [place] [address] 12-25-2024 14:36-0400 Heart rate 60 /min Sarah Toth HUMAN RESOURCES MANAGER MANUFACTURING-C Work Phone: [phone] [place] [address] 12-25-2024 14:36-0400 Respiratory rate 16 /min Sarah Toth HUMAN RESOURCES MANAGER MANUFACTURING-C Work Phone: [phone] [place] [address] 12-25-2024 14:36-0400 Systolic blood pressure 124 mm[Hg] Sarah Toth HUMAN RESOURCES MANAGER MANUFACTURING-C Work Phone: [phone] [place] [address] 11-30-2024 15:26-0400 Body temperature 98.2 [degF] Sarah Toth HUMAN RESOURCES MANAGER MANUFACTURING-[employer] Work Phone: [phone] [place] [address] 11-30-2024 15:26-0400 Diastolic blood pressure 57 mm[Hg] Sarah Toth HUMAN RESOURCES MANAGER MANUFACTURING[employer] Work Phone: [phone] [place] [address] 11-30-2024 15:26-0400 Heart rate 60 /min Sarah Toth HUMAN RESOURCES MANAGER MANUFA[employer]ING[employer] Work Phone: [phone] [place] [address] 11-30-2024 15:26-0400 Respiratory rate 18 /min Sarah Toth HUMAN RESOURCES MANAGER MANUFA[employer]URING-[employer] Work Phone: [phone] [place] [address] 11-30-2024 15:26-0400 SaO2% (BldA) [Mass fraction] 96 % Sarah Toth HUMAN RESOURCES MANAGER MANUFA[employer]URING[employer] Work Phone: [phone] [place] [address] 11-30-2024 15:26-0400 Systolic blood pressure 110 mm[Hg] Sarahmariluz Toth HUMAN RESOURCES MANAGER MANUFACTURING-C Work Phone: [phone] [place] [address] 11-30-2024 11:39-0400 Body height 162.56 cm Sarah Toth HUMAN RESOURCES MANAGER MANUFACTURING-[employer] Work Phone: [phone] [place] [address] 11-30-2024 11:39-0400 Body mass index (BMI) [Ratio] 44.8 kg/m2 Sarahamerico Toth [employer]UMAN [employer]GER [employer] Work Phone: 0(181)898-789599 [place] [address] 11-30-2024 11:39-0400 Body weight 118.38 kg Sarahamerico Toth [employer]UMAN [employer]OURCES [employer]GER [employer] Work Phone: 0(423)109-673299 [place] [address] 10-23-2024 13:55-0400 Body height 162.56 cm Sarahmariluz Toth HUMAN RESOURCES MANAGER [employer] Work Phone: 4(110)393-160899 [place] [address] 10-23-2024 13:55-0400 Body mass index (BMI) [Ratio] 44.9 kg/m2 Sarahamerico Toth HUMAN RESOURCES MANAGER [employer] Work Phone: 1(455)199-161599 [place] [address] 10-23-2024 13:55-0400 Body weight 118.61 kg Sarahamerico Toth HUMAN RESOURCES MANAGER [employer] Work Phone: 6(112)370-492099 [place] [address] 10-23-2024 13:55-0400 Diastolic blood pressure 74 mm[Hg] Sarah Toth HUMAN RESOURCES MANAGER [employer] Work Phone: 0(294)742-383299 [place] [address] 10-23-2024 13:55-0400 Heart rate 60 /min Sarahamerico Toth HUMAN RESOURCES MANAGER [employer] Work Phone: 2(971)265-380099 [place] [address] 10-23-2024 13:55-0400 SaO2% (BldA) [Mass fraction] 95 % Sarah Toth HUMAN RESOURCES MANAGER [employer] Work Phone: 4(606)719-639799 [place] [address] 10-23-2024 13:55-0400 Systolic blood pressure 117 mm[Hg] Sarah Toth HUMAN RESOURCES MANAGER [employer] Work Phone: 7(752)215-006399 [place] [address] 07-16-2024 14:30-0500 Body mass index (BMI) [Ratio] 44.1 kg/m2 Sarah Toth HUMAN RESOURCES MANAGER [employer] Work Phone: 6(622)294-753299 [place] [address] 07-16-2024 14:30-0500 Body weight 116.57 kg Sarahamerico Toth HUMAN RESOURCES MANAGER [employer] Work Phone: 1(838)962-484899 [place] [address] 07-16-2024 14:30-0500 Diastolic blood pressure 77 mm[Hg] Sarah Toth HUMAN RESOURCES MANAGER [employer] Work Phone: 6(814)784-602399 [place] [address] 07-16-2024 14:30-0500 Heart rate 61 /min Sarah Toth HUMAN RESOURCES MANAGER [employer] Work Phone: 8(808)207-567599 [place] [address] 07-16-2024 14:30-0500 SaO2% (BldA) [Mass fraction] 94 % Sarah Toth HUMAN RESOURCES MANAGER [employer] Work Phone: 3(591)331-173499 [place] [address] 07-16-2024 14:30-0500 Systolic blood pressure 149 mm[Hg] aSrah Toth HUMAN RESOURCES MANAGER [employer] Work Phone: 2(364)582-772199 [place] [address] 07-02-2024 13:02-0500 Body temperature 97.6 [degF] Sarahamerico Toth HUMAN RESOURCES MANAGER [employer] Work Phone: 7(722)033-005799 [place] [address] 07-02-2024 13:02-0500 Diastolic blood pressure 69 mm[Hg] Sarah Toth HUMAN RESOURCES MANAGER [employer] Work Phone: 2(816)066-337699 [place] [address] 07-02-2024 13:02-0500 Heart rate 60 /min Sarah Toth HUMAN RESOURCES MANAGER [employer] Work Phone: 0(462)522-807399 [place] [address] 07-02-2024 13:02-0500 Respiratory rate 18 /min Sarah Toth HUMAN RESOURCES MANAGER [employer] Work Phone: 1(060)998-195399 [place] [address] 07-02-2024 13:02-0500 SaO2% (BldA) [Mass fraction] 98 % Sarah Toth HUMAN RESOURCES MANAGER [employer] Work Phone: 6(542)759-704799 [place] [address] 07-02-2024 13:02-0500 Systolic blood pressure 154 mm[Hg] Sarah Toth HUMAN RESOURCES MANAGER [employer] Work Phone: 2(924)230-563099 [place] [address] 09-13-2023 18:06-0400 Body temperature 97 [degF] [facility] Work Phone: 9(382)829-803999 [place] [address] 09-13-2023 18:06-0400 Diastolic blood pressure 79 mm[Hg] [facility] Work Phone: 7(021)178-992999 [place] [address] 09-13-2023 18:06-0400 Heart rate 60 /min [facility] Work Phone: 4(014)199-618699 [place] [address] 09-13-2023 18:06-0400 Respiratory rate 14 /min [facility] Work Phone: 3(525)036-585499 [place] [address] 09-13-2023 18:06-0400 SaO2% (BldA) [Mass fraction] 97 % [facility] Work Phone: 7(073)871-524399 [place] [address] 09-13-2023 18:06-0400 Systolic blood pressure 141 mm[Hg] [facility] Work Phone: 9(494)088-558299 [place] [address] 09-13-2023 14:47-0400 Body height 165.1 cm [facility] Work Phone: 8(704)615-245599 [place] [address] 09-13-2023 14:47-0400 Body mass index (BMI) [Ratio] 38.7 kg/m2 [facility] Work Phone: 3(145)163-426699 [place] [address] 09-13-2023 14:47-0400 Body weight 105.74 kg [facility] Work Phone: 9(005)642-763399 [place] [address] 07-04-2023 09:05-0500 Body height 165.1 cm [facility] Work Phone: 5(423)054-530699 [place] [address] 07-04-2023 09:05-0500 Body mass index (BMI) [Ratio] 37.5 kg/m2 [facility] Work Phone: 4(101)957-698499 [place] [address] 07-04-2023 09:05-0500 Body temperature 98.7 [degF] [facility] Work Phone: 8(255)628-961399 [place] [address] 07-04-2023 09:05-0500 Body weight 102.28 kg [facility] Work Phone: 8(152)007-520699 [place] [address] 07-04-2023 09:05-0500 Diastolic blood pressure 76 mm[Hg] [facility] Work Phone: 0(614)001-080599 [place] [address] 07-04-2023 09:05-0500 Heart rate 70 /min [facility] Work Phone: 0(388)550-402999 [place] [address] 07-04-2023 09:05-0500 Respiratory rate 16 /min [facility] Work Phone: 2(010)959-888599 [place] [address] 07-04-2023 09:05-0500 SaO2% (BldA) [Mass fraction] 96 % [facility] Work Phone: 1(980)314-244999 [place] [address] 07-04-2023 09:05-0500 Systolic blood pressure 138 mm[Hg] [facility] Work Phone: 1(887)074-287099 [place] [address] 07-02-2023 09:50-0500 Body mass index (BMI) [Ratio] 37 kg/m2 [facility] Work Phone: 3(588)232-158099 [place] [address] 07-02-2023 09:50-0500 Body weight 101.15 kg [facility] Work Phone: 6(985)258-867699 [place] [address] 07-02-2023 09:50-0500 Diastolic blood pressure 76 mm[Hg] [facility] Work Phone: 9(587)934-826999 [place] [address] 07-02-2023 09:50-0500 Heart rate 68 /min [facility] Work Phone: 3(599)549-618799 [place] [address] 07-02-2023 09:50-0500 Respiratory rate 18 /min [facility] Work Phone: 5(831)617-203399 [place] [address] 07-02-2023 09:50-0500 SaO2% (BldA) [Mass fraction] 98 % [facility] Work Phone: 8(628)540-936799 [place] [address] 07-02-2023 09:50-0500 Systolic blood pressure 121 mm[Hg] [facility] Work Phone: 7(498)000-438499 [place] [address] 04-02-2023 08:48-0400 Body mass index (BMI) [Ratio] 38 kg/m2 [facility] Work Phone: 5(832)472-117499 [place] [address] 04-02-2023 08:48-0400 Body temperature 97.6 [degF] [facility] Work Phone: 8(129)063-902199 [place] [address] 04-02-2023 08:48-0400 Body weight 103.53 kg [facility] Work Phone: 4(710)846-854199 [place] [address] 04-02-2023 08:48-0400 Diastolic blood pressure 76 mm[Hg] [facility] Work Phone: 9(950)169-996499 [place] [address] 04-02-2023 08:48-0400 Heart rate 72 /min [facility] Work Phone: 3(959)979-243899 [place] [address] 04-02-2023 08:48-0400 Respiratory rate 16 /min [facility] Work Phone: 0(908)769-304399 [place] [address] 04-02-2023 08:48-0400 SaO2% (BldA) [Mass fraction] 97 % [facility] Work Phone: 1(231)427-106599 [place] [address] 04-02-2023 08:48-0400 Systolic blood pressure 146 mm[Hg] [facility] Work Phone: 6(064)455-922099 [place] [address] 02-01-2023 09:28-0400 Body height 165.1 cm [facility] Work Phone: 3(558)637-711299 [place] [address] 12-28-2022 09:43-0400 Body mass index (BMI) [Ratio] 37.5 kg/m2 [facility] Work Phone: 6(898)136-510799 [place] [address] 12-28-2022 09:43-0400 Body weight 102.51 kg [facility] Work Phone: 1(328)106-686199 [place] [address] 12-28-2022 09:43-0400 Diastolic blood pressure 40 mm[Hg] [facility] Work Phone: 9(635)613-632799 [place] [address] 12-28-2022 09:43-0400 Heart rate 64 /min [facility] Work Phone: 6(691)681-443599 [place] [address] 12-28-2022 09:43-0400 Respiratory rate 20 /min [facility] Work Phone: 0(551)262-445999 [place] [address] 12-28-2022 09:43-0400 Systolic blood pressure 100 mm[Hg] [facility] Work Phone: 0(900)458-473199 [place] [address] 12-28-2022 09:08-0400 Body mass index (BMI) [Ratio] 38 kg/m2 [facility] Work Phone: 3(505)806-708499 [place] [address] 12-28-2022 09:08-0400 Body temperature 98 [degF] [facility] Work Phone: 0(810)217-891399 [place] [address] 12-28-2022 09:08-0400 Body weight 103.58 kg [facility] Work Phone: 1(184)533-892799 [place] [address] 12-28-2022 09:08-0400 Diastolic blood pressure 82 mm[Hg] [facility] Work Phone: 9(686)427-481199 [place] [address] 12-28-2022 09:08-0400 Heart rate 60 /min [facility] Work Phone: 7(129)480-893699 [place] [address] 12-28-2022 09:08-0400 Respiratory rate 16 /min [facility] Work Phone: 0(522)048-681599 [place] [address] 12-28-2022 09:08-0400 SaO2% (BldA) [Mass fraction] 97 % [facility] Work Phone: 8(911)941-341799 [place] [address] 12-28-2022 09:08-0400 Systolic blood pressure 148 mm[Hg] [facility] Work Phone: 1(862)825-997699 [place] [address] 11-22-2022 15:32-0400 Respiratory rate 18 /min [facility] Work Phone: 4(826)992-341199 [place] [address] 11-22-2022 13:34-0400 Body temperature 98.5 [degF] [facility] Work Phone: 5(763)752-649599 [place] [address] 11-22-2022 13:34-0400 Diastolic blood pressure 87 mm[Hg] [facility] Work Phone: 2(655)439-937699 [place] [address] 11-22-2022 13:34-0400 Heart rate 88 /min [facility] Work Phone: 9(714)068-623799 [place] [address] 11-22-2022 13:34-0400 SaO2% (BldA) [Mass fraction] 97 % [facility] Work Phone: 3(357)852-218599 [place] [address] 11-22-2022 13:34-0400 Systolic blood pressure 103 mm[Hg] [facility] Work Phone: 4(051)606-846599 [place] [address] 10-19-2022 09:12-0400 Body mass index (BMI) [Ratio] 37 kg/m2 [facility] Work Phone: 9(987)748-002499 [place] [address] 10-19-2022 09:12-0400 Body temperature 98.6 [degF] [facility] Work Phone: 7(598)793-420499 [place] [address] 10-19-2022 09:12-0400 Body weight 101.15 kg [facility] Work Phone: 9(832)349-766199 [place] [address] 10-19-2022 09:12-0400 Diastolic blood pressure 73 mm[Hg] [facility] Work Phone: 7(196)754-803699 [place] [address] 10-19-2022 09:12-0400 Heart rate 74 /min [facility] Work Phone: 1(099)532-595499 [place] [address] 10-19-2022 09:12-0400 Respiratory rate 18 /min [facility] Work Phone: 4(510)838-816899 [place] [address] 10-19-2022 09:12-0400 SaO2% (BldA) [Mass fraction] 95 % [facility] Work Phone: 3(313)086-135399 [place] [address] 10-19-2022 09:12-0400 Systolic blood pressure 137 mm[Hg] [facility] Work Phone: 3(719)493-065899 [place] [address] 06-01-2022 08:51-0500 Body height 165.1 cm [facility] 06-01-2022 08:51-0500 Body mass index (BMI) [Ratio] 38.2 kg/m2 [facility] 06-01-2022 08:51-0500 Body temperature 97.6 [degF] [facility] 06-01-2022 08:51-0500 Body weight 104.32 kg [facility] 06-01-2022 08:51-0500 Diastolic blood pressure 94 mm[Hg] [facility] 06-01-2022 08:51-0500 Heart rate 71 /min [facility] 06-01-2022 08:51-0500 Respiratory rate 18 /min [facility] 06-01-2022 08:51-0500 SaO2% (BldA) [Mass fraction] 96 % [facility] 06-01-2022 08:51-0500 Systolic blood pressure 170 mm[Hg] [facility] 03-12-2017 10:31-0400 BMI (Body Mass Index) 42.93 kg/m2 [facility] Work Phone: 03-12-2017 10:31-0400 BP Diastolic 70 mm[Hg] [facility] Work Phone: 03-12-2017 10:31-0400 BP Systolic 142 mm[Hg] [facility] Work Phone: 03-12-2017 10:31-0400 Pulse (Heart Rate) 72 /min [facility] Work Phone: 03-12-2017 10:31-0400 Weight 117.03 kg [facility] Work Phone: 12-01-2016 10:38-0400 BMI (Body Mass Index) 42.56 kg/m2 [facility] Work Phone: 12-01-2016 10:38-0400 BP Diastolic 82 mm[Hg] [facility] Work Phone: 12-01-2016 10:38-0400 BP Systolic 158 mm[Hg] [facility] Work Phone: 12-01-2016 10:38-0400 Height 165.1 cm [facility] Work Phone: 12-01-2016 10:38-0400 Pulse (Heart Rate) 80 /min [facility] Work Phone: 12-01-2016 10:38-0400 Respiratory Rate 20 /min [facility] Work Phone: 12-01-2016 10:38-0400 Weight 116.03 kg Aaliyah Rivera [facility] Work Phone: 08-23-2016 14:06-0400 Pulse Oximetry 98 % [facility] Work Phone: 02-29-2016 09:05-0400 BSA (Body Surface Area) 2.11 m2 Aaliyah Rivera [facility] Work Phone: 10-22-2015 10:30-0400 Heart rate 68 /min [facility] Work Phone: Encounters Encounter Date Encounter Type Care Provider Facility Start: 04-22-2025 ambulatory [facility] Fa cility:[facility] Start: 04-09-2025 End: 04-09-2025 ambulatory [facility] Facility[facility] Start: 02-16-2025 End: 02-16-2025 ambulatory Sarah Toth H[employer] MANAGER [employer] Work Phone: -[facility] Start: 02-16-2025 End: 02-16-[address] Misbah Marcum MD -[facility] Work Phone: Start: 01-27-2025 Non-patient / Non-visit Dr. Marilee Irving MD -[facility] Work Phone: Start: 01-27-2025 End: 01-27-2025 ambulatory Sarah Toth [employer]AN [employer]OURCES MA[employer]GER [employer] Work Phone: -[facility] Start: 01-27-2025 End: 01-27-2025 Patient encounter procedure Rachel Field -[facility] Work Phone: Start: 01-26-2025 End: 01-27-2025 ambulatory [facility] Facility:[facility] Start: 01-26-2025 End: 01-27-2025 Evaluation and management of inpatient Dr. Dahiana Oakley MD -[facility] Work Phone: Start: 01-26-2025 End: 01-27-2025 observation encounter Sarah Toth HUMAN RESOURCES MANAGER [employer] Work Phone: -[facility] Start: 01-20-2025 Non-patient / Non-visit Lico horta HUMAN RESOURCES MANAGER [employer] -[facility] Work Phone: Start: 01-20-2025 ambulatory [facility] Start: 01-19-2025 Non-patient / Non-visit Dr. Justin HASSAN -[facility] Start: 01-19-2025 End: 01-19-2025 ambulatory Sarah Toth H[employer]OURCES MA[employer]GER [employer] Work Phone: -[facility] Start: 01-19-2025 End: 01-19-[address] Misbah Marcum MD -[facility] Work Phone: Start: 01-19-2025 End: 01-19-2025 ambulatory [facility] Facility:[facility] Start: 01-12-2025 End: 01-12-2025 ambulatory Sarah Toth HUMAN RESOURCES MANAGER [employer] Work Phone: -[facility] Start: 01-12-2025 End: 01-12-[address] Misbah Marcum MD -[facility] Work Phone: Start: 12-28-2024 End: 12-28-2024 Emergency department patient visit Sarah Navneet HUMAN RESOURCES MANAGER [employer] Work Phone: -Emergency Department Work Phone: Start: 12-25-2024 End: 12-25-[address] Misbah Marcum MD -[facility] Work Phone: Start: 12-25-2024 End: 12-25-2024 ambulatory Sarah Toth HUMAN RESOURCES MANAGER [employer] Work Phone: -[facility] Start: 11-30-2024 End: 11-30-2024 Emergency department patient visit Sarah Toth HUMAN RESOURCES MANAGER [employer] Work Phone: -Emergency Department Work Phone: Start: 10-23-2024 End: 10-23-2024 Patient encounter procedure Lavonne Bridges HUMAN RESOURCES MANAGER [employer]ING[employer] -[facility] Work Phone: Start: 10-23-2024 End: 10-23-2024 ambulatory Sarah Toth HUMAN RESOURCES MANAGER [employer] Work Phone: [facility] Work Phone: Start: 10-22-2024 End: 10-22-2024 ambulatory Sarah Toth HUMAN RESOURCES MANAGER [employer] Work Phone: [facility] Work Phone: Start: 10-22-2024 End: 10-22-2024 Patient encounter procedure VS Sarah Toth HUMAN RESOURCES MANAGER [employer]ING[employer]C -[facility] Start: 10-22-2024 End: 10-22-[facility] Start: 10-13-2024 End: 10-13-2024 ambulatory [facility] Facility:[facility] Start: 10-13-2024 End: 10-13-[address] Misbah Marcum MD -[facility] Work Phone: Start: 08-19-2024 ambulatory [facility] Facility:[facility] Start: 07-16-2024 End: 07-16-2024 Patient encounter procedure Lavonne DESOUZAC -[facility] Work Phone: Start: 07-16-2024 End: 07-16-[facility] Start: 07-14-2024 End: 07-14-2024 [facility] Start: 07-14-2024 End: 07-14-[address] Misbah Marcum MD -[facility] Work Phone: Start: 07-02-2024 End: 07-02-2024 ambulatory [facility] Facility:[facility] Start: 07-02-2024 End: 07-02-2024 Patient encounter procedure Kaye SAMSON -[facility] Work Phone: Start: 07-02-2024 End: 07-02-2024 ambulatory [facility] Facility:[facility] Start: 04-16-2024 End: 04-16-2024 [facility] Start: 04-14-2024 End: 04-14-2024 [facility] Start: 11-27-2023 End: 11-27-2023 ambulatory SHANTE L SWIHART Facility:[facility] Start: 11-27-2023 End: 11-27-2023 Patient encounter procedure Honorio Quintana MD Work Phone: Ophthalmology Comment on above: 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) Start: 09-13-2023 End: 09-13-2023 Emergency department patient visit [facility] Work Phone: [facility]-Emergency Department Work Phone: Start: 07-18-2023 End: 07-18-2023 ambulatory [facility] Work Phone: [facility] Work Phone: Start: 07-18-2023 End: 07-18-2023 Patient encounter procedure [facility] Work Phone: [facility]-Laboratory Work Phone: Start: 07-04-2023 End: 07-04-2023 Patient encounter procedure [facility] Work Phone: [facility] Work Phone: Start: 07-02-2023 End: 07-02-2023 Patient encounter procedure [facility] Work Phone: [facility] Work Phone: Start: 05-28-2023 End: 05-28-2023 ambulatory SHANTE L SWIHART Facility:[facility] Start: 04-02-2023 End: 04-02-2023 Patient encounter procedure [facility] Work Phone: [facility] Work Phone: Start: 03-05-2023 End: 03-05-2023 ambulatory SHANTE L GINAHART Facility:[facility] Start: 03-05-2023 End: 03-05-2023 Subsequent hospital visit by physician [facility] Work Phone: Radiology Comment on above: 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] Start: 02-22-2023 End: 02-22-2023 [facility] Start: 02-05-2023 End: 02-05-2023 Patient encounter procedure [facility] Work Phone: [facility] Work Phone: Start: 02-01-2023 End: 02-01-2023 ambulatory [facility] Work Phone: [facility] Work Phone: Start: 02-01-2023 End: 02-01-2023 Patient encounter procedure [facility] Start: 02-01-2023 End: 02-01-2023 Patient encounter procedure [facility] Work Phone: [facility] Work Phone: Start: 01-05-2023 End: 01-05-2023 [facility] encounter [facility] Work Phone: [facility] Work Phone: Start: 01-03-2023 End: 01-03-2023 ambulatory [facility] Start: 12-28-2022 End: 12-28-2022 Patient encounter procedure [facility] Work Phone: [facility] Work Phone: Start: 12-27-2022 End: 12-27-2022 Patient encounter procedure [facility] Work Phone: [facility] Work Phone: Start: 11-22-2022 End: 11-22-2022 Emergency department patient visit [facility] Work Phone: [facility]-Emergency Department Work Phone: Start: 10-19-2022 End: 10-19-2022 Patient encounter procedure [facility] Work Phone: [facility] Endocr[facility]ology Work Phone: Start: 10-02-2022 End: 10-02-2022 ambulatory [facility] Work Phone: Start: 10-02-2022 End: 10-02-2022 Patient encounter procedure [facility] Start: 09-27-2022 End: 09-27-2022 ambulatory [facility] Work Phone: Start: 09-27-2022 End: 09-27-2022 Patient encounter procedure [facility] Start: 07-31-2022 End: 07-31-2022 ambulatory [facility] Work Phone: Start: 07-31-2022 End: 07-31-2022 Patient encounter procedure [facility] Start: 06-01-2022 End: 06-01-2022 Emergency department patient visit [facility]Emergency Department Start: 10-06-2021 End: 10-06-2021 Patient encounter procedure Shaka Alonso Work Phone: Podiatry Comment on above: Onychomycosis (Prima ry Dx); Pain in toe of left foot; Pain in toe of right foot; Other diabetic neurological complication associated with type 2 diabetes mellitus (HCC); Hyperkeratosis Start: 10-15-2018 Patient encounter procedure NAHOMY GARCIA Facility:[facility] Start: 07-09-2018 End: 09-27-2018 Patient encounter procedure NAHOMY GARCIA Facility:[facility] Start: 04-02-2018 End: 04-02-2018 Patient encounter procedure NAHOMY OYRKY Facility:[facility] Start: 01-29-2018 End: 01-29-2018 Patient encounter procedure NAHOMY GARCIA Facility:[facility] Start: 10-29-2017 Patient encounter procedure NAHOMY GARCIA Facility:[facility] Start: 10-16-2017 Patient encounter procedure NAHOMY GARCIA Facility:[facility] Procedures Date Procedure Procedure Detail Performing Clinician Start: 01-27-2025 MRI of brain without contrast Sarah Toth NP-C Work Phone: Start: 01-27-2025 Estimated creatinine clearance Sarah Toth NP-C Work Phone: Start: 01-26-2025 CT angiography of he ad and neck Sarah Toth HUMAN RESOURCES MANAGER MANUFACTURING-C Work Phone: Start: 01-26-2025 CT of head without contrast Sarah Toth HUMAN RESOURCES MANAGER MANUFACTURING-C Work Phone: Start: 01-26-2025 Estimated creatinine clearance Sarah Toth HUMAN RESOURCES MANAGER MANUFACTURING-C Work Phone: Start: 11-30-2024 Estimated creatinine clearance Sarah Toth NP-C Work Phone: Start: 11-30-2024 X-ray of chest, PA a nd lateral views Sarah Toth HUMAN RESOURCES MANAGER MANUFACTURING-C Work Phone: Start: 10-22-2024 Vitamin D, 25-hydrox y measurement Sarah Toth NP-C Work Phone: Comment on above: Vitamin D StatusDefi ciency: <20 ng/mL (50nmol/L)Insufficiency: 20-30 ng/mL (50-75 nmol/L)Sufficiency: 30-100 ng/mL (75-250 nmol/L)Toxicity: >100 ng/mL (>250 nmol/L) Start: 07-02-2024 Measurement of renal function Sarah Toth HUMAN RESOURCES MANAGER MANUFACTURING-C Work Phone: Comment on above: GFR Calc Start: 07-02-2024 Microalbuminuria measurement Sarah Toth HUMAN RESOURCES MANAGER MANUFACTURING-C Work Phone: Start: 07-02-2024 Vitamin D, 25-hydrox y measurement Sarah Toth HUMAN RESOURCES MANAGER MANUFACTURING-C Work Phone: Comment on above: Vitamin D [...] Work Phone: Start: 09-13-2023 Plain chest X-ray [facility] Work Phone: Start: 03-05-2023 Us abdominal real ti me w/image limited Jay Jay Garcia MD Work Phone: Start: 11-22-2022 Plain X-ray abdomen [facility] Work Phone: Start: 09-27-2022 Screening mammography Start: 03-12-2017 End: 03-12-2017 Follow Up Appt 6 months Kaye grant PA-C Work Phone: Start: 03-12-2017 End: 03-12-2017 PFM Kaye Burris PA-C Work Phone: Start: 12-01-2016 End: 12-01-2016 Follow Up Appt 3 months Kaye grant PA-C Work Phone: Start: 12-01-2016 End: 12-01-2016 Follow Up Appt 6 months Kaye grant PA-C Work Phone: Start: 12-01-2016 End: 12-01-2016 MMM Kaye Burris PA-C Work Phone: Start: 12-01-2016 End: 12-01-2016 PFPatito Burris PA-C Work Phone: Start: 12-01-2016 End: 12-01-2016 Follow Up Appt 3 months Kaye grant PA-C Work Phone: Start: 12-01-2016 End: 12-01-2016 Follow Up Appt 6 months Kaye grant PA-C Work Phone: Start: 12-01-2016 End: 12-01-2016 MMPatito Burris PA-C Work Phone: Start: 12-01-2016 End: 12-01-2016 PFM Kaye Burris PA-C Work Phone: Start: 08-23-2016 [...] 11-29-2015 Follow Up Appt 3 months Kaye Patito grant PA-C Work Phone: Start: 11-29-2015 End: [...] PA-C Work Phone: Start: 11-29-2015 End: 11-29-2015 [facility] Kaye uBrris PA-C Work Phone: Start: 11-29-2015 End: 11-29-2015 [...] MD Start: 09-29-2015 End: 09-30-2015 Referral to open hearth helper Stewart abraham MD Start: 09-29-2015 End: 09-30-2015 Referral to open hearth helper Stewart abraham MD Start: 09-20-2015 End: 09-21-2015 Referral to open hearth helper Stewart abraham MD Start: 09-20-2015 End: 11-10-2016 Us abdominal real time w/image limited Stewart Boggs MD Start: 09-20-2015 End: 11-10-2016 Cardiac Rehab Stewart Boggs MD Start: 09-20-2015 End: 11-10-2016 Echo exam of abdomen Stewart Boggs MD Start: 09-20-2015 End: 09-21-2015 Referral to open hearth helper Stewart abraham MD Start: 07-22-2015 End: 11-05-2015 [...] PA-C Work Phone: Start: 07-22-2015 End: 07-22-2015 MMPatito Burris PA-C Work Phone: Start: 06-21-2015 End: 06-23-2015 *BMP aKye Burris PA-C Work Phone: Start: 06-21-2015 End: 06-23-2015 *BMP CHAPIN Mcdonald-C Work Phone: Start: 06-10-2015 End: 07-15-2015 Follow Up Appt 3 months Kaye grant PA-C Work Phone: Start: 06-10-2015 End: 06-10-2015 Follow Up Appt 6 weeks CHAPIN Rendon-C Work Phone: Start: 06-10-2015 End: 06-23-2015 Follow Up BP Check CHAPIN Mcdonald-C Work Phone: Start: 06-10-2015 End: 06-10-2015 MMM CHAPIN Mcdonald-C Work Phone: Start: 06-10-2015 End: 07-15-2015 PFM CHAPIN Mcdonald-C Work Phone: Start: 06-10-2015 End: 07-15-2015 Follow Up Appt 3 months CHAPIN Jimenez-C Work Phone: Start: 06-10-2015 End: 06-10-2015 Follow Up Appt 6 weeks CHAPIN Rendon-C Work Phone: Start: 06-10-2015 End: 06-23-2015 Follow Up BP Check CHAPIN Mcdonald-C Work Phone: Start: 06-10-2015 End: 06-10-2015 MMM CHAPIN Mcdonald-C Work Phone: Start: 06-10-2015 End: 07-15-2015 PFM CHAPIN Mcdonald-C Work Phone: Start: 05-27-2015 End: 06-09-2015 Nuclear stress test -Uma Boggs MD Start: 05-27-2015 End: 06-09-2015 Nuclear stress test -Uma Boggs MD SARS-CoV-2 & FLU Ant igen (Rapid) Plan of Treatment Date Care Activity Detail Author Start: 01-27-2025 Patient discharge [facility] Start: 01-27-2025 Application of intermittent pneumatic compression device [facility] Start: 01-26-2025 Following clinical pathway protocol [facility] Start: 01-26-2025 Assessment of risk of venous thromboembolism [facility] Start: 01-26-2025 Cardiac monitoring [facility] Start: 01-26-2025 Care regimes management [facility] Start: 01-26-2025 Catheterization of vein [facility] Start: 01-26-2025 Consultation [facility] Start: 01-26-2025 Continuous pulse oximetry [facility] Start: 01-26-2025 Elevation of head of bed [facility] Start: 01-26-2025 Exercises [facility] Start: 01-26-2025 Insertion of catheter into peripheral vein [facility] Start: 01-26-2025 Measuring intake and output [facility] Start: 01-26-2025 Notification of physician [facility] Start: 01-26-2025 Oxygen therapy [facility] Start: 01-26-2025 Patient referral to dietitian [facility] Start: 01-26-2025 Providing care according to standard [facility] Start: 01-26-2025 Provision of activity privileges [facility] Start: 01-26-2025 Referral to occupational therapist [facility] Start: 01-26-2025 Referral to service [facility] Start: 01-26-2025 Speech therapy assessment [facility] Start: 01-26-2025 Telemedicine consultation with patient [facility] Start: 01-26-2025 Tobacco use cessation education [facility] Start: 01-26-2025 End: 01-26-2025 [facility] Start: 01-26-2025 Vital signs measurements [facility] Start: 01-26-2025 MRI of brain without contrast Brain without Contrast [facility] Start: 01-26-2025 Verification routine [facility] Start: 01-26-2025 End: 01-26-2025 [facility] Start: 01-26-2025 Admission procedure [facility] Start: 01-26-2025 Hospital admission, emergency, from emergency room, medical nature [facility] Start: 01-26-2025 Urinalysis complete panel - Urine [facility] Start: 11-30-2024 [facility] Start: 11-30-2024 [facility] Start: 11-26-2024 Glaucoma screening Dilated Retinal Exam [facility] Start: 02-23-2024 Hepatitis C antibody, confirmatory test Dilated Retinal Exam [facility] Start: 02-10-2024 Influenza vaccination Influenza Vaccine (Season Ended) [facility] Start: 09-13-2023 [facility] Start: 06-11-2023 Advance Directive Discussion Advance Directive Discussion [facility] Start: 06-11-2023 Behavioral Health Screening Behavioral Health Screening [facility] Start: 02-09-2023 Covid-19 Vaccine ( season) Covid-19 Vaccine ( season) [facility] Start: 02-09-2023 Influenza vaccination Influenza Vaccine (#1) [facility] Start: 06-11-2022 Advance Directive Discussion Advance Directive Discussion [facility] Start: 06-11-2022 Depression Assessment Depression Assessment [facility] Start: 06-01-2022 [facility] Start: 12-10-2021 3 comp foot exam completed DIABETIC FOOT EXAM [facility] Start: 12-10-2021 Diabetic foot examination Diabetic Foot Exam [facility] Start: 10-18-2021 Shingrix Vaccine (2 of 2) Shingrix Vaccine (2 of 2) [facility] Start: 06-11-2021 ADVANCE DIRECTIVE DISCUSSION ADVANCE DIRECTIVE DISCUSSION [facility] Start: 05-19-2020 Pneumococcal Vaccine: 65+ (2 - PPSV23 or PCV20) Pneumococcal Vaccine: 65+ (2 - PPSV23 or PCV20) [facility] Start: 05-19-2020 Pneumococcal Vaccine: 65+ (2 of 2 - PPSV23 or PCV20) Pneumococcal Vaccine: 65+ (2 of 2 - PPSV23 or PCV20) [facility] Start: 01-31-2019 Hepatitis C antibody, confirmatory test DILATED RETINAL EXAM [facility] Start: 11-08-2018 Influenza vaccination LUNG CANCER SCREENING [facility] Start: 2018 BONE DENSITY BONE DENSITY [facility] Start: 2018 Bone Density Screening Bone Density Screening [facility] Start: 2018 PNEUMOVAX AGE 65 AND OVER WITH 5YR LOOKBACK (#1) PNEUMOVAX AGE 65 AND OVER WITH 5YR LOOKBACK (#1) [facility] Start: 2018 Screening for osteoporosis Bone Density Screening [facility] Start: 05-05-2018 Hemoglobin A1c measurement HbA1C [facility] Start: 05-05-2018 Hemoglobin A1c/Hemoglobin.total in Blood HBA1C [facility] Start: 07-17-2017 Hepatitis B surface antibody level LDL Cholesterol [facility] Start: 07-16-2017 End: 07-16-2017 Appointment Appointment [facility] Work Phone: Start: 03-12-2017 End: 03-12-2017 Appointment Appointment [facility] Work Phone: Start: 03-12-2017 End: 03-12-2017 Follow Up Appt 6 months Follow Up Appt 6 months [facility] Work Phone: Start: 03-12-2017 End: 03-12-2017 PFM PFM [facility] Work Phone: Start: 12-01-2016 End: 12-01-2016 Follow Up Appt 3 months Follow Up Appt 3 months [facility] Work Phone: Start: 12-01-2016 End: 12-01-2016 Follow Up Appt 6 months Follow Up Appt 6 months [facility] Work Phone: Start: 12-01-2016 End: 12-01-2016 MMM MMM [facility] Work Phone: Start: 12-01-2016 End: 12-01-2016 PFM PFM [facility] Work Phone: Start: 12-01-2016 End: 12-01-2016 Follow Up Appt 3 months Follow Up Appt 3 months [facility] Work Phone: Start: 12-01-2016 End: 12-01-2016 Follow Up Appt 6 months Follow Up Appt 6 months [facility] Work Phone: Start: 12-01-2016 End: 12-01-2016 MMM MMM [facility] Work Phone: Start: 12-01-2016 End: 12-01-2016 PFM PFM [facility] Work Phone: Start: 08-23-2016 End: 08-31-2016 *BMP *BMP [facility] Work Phone: Start: 08-23-2016 End: 08-23-2016 Follow Up Appt 3 months Follow Up Appt 3 months [facility] Work Phone: Start: 08-23-2016 End: 08-23-2016 MMM MMM [facility] Work Phone: Start: 08-23-2016 End: 08-31-2016 Natriuretic peptide B mass conc (Bld) *Brain Natriuretic Peptide BNP [facility] Work Phone: Start: 08-23-2016 End: 08-31-2016 *BMP *BMP [facility] Work Phone: Start: 08-23-2016 End: 08-31-2016 BNP *Brain Natriuretic Peptide BNP [facility] Work Phone: Start: 08-23-2016 End: 08-23-2016 Follow Up Appt 3 months Follow Up Appt 3 months [facility] Work Phone: Start: 08-23-2016 End: 08-23-2016 MMM MMM [facility] Work Phone: Start: 07-17-2016 End: 03-12-2017 *Hepatic Function Panel *Hepatic Function Panel [facility] Work Phone: Start: 07-17-2016 End: 03-12-2017 Lipid 1996 panel *Lipid Profile CC PCP [facility] Work Phone: Start: 07-17-2016 End: 01-19-2016 *Hepatic Function Panel *Hepatic Function Panel [facility] Work Phone: Start: 07-17-2016 End: 01-19-2016 Lipid panel [AGGREGATE] *Lipid Profile CC PCP [facility] Work Phone: Start: 03-11-2016 End: 04-10-2016 Lipid 1996 panel *Lipid Profile CC PCP [facility] Work Phone: Start: 03-11-2016 End: 04-10-2016 Lipid panel [AGGREGATE] *Lipid Profile CC PCP [facility] Work Phone: Start: 02-29-2016 End: 02-29-2016 Follow Up Appt Other Follow Up Appt Other [facility] Work Phone: Start: 02-29-2016 End: 02-29-2016 PFM PFM [facility] Work Phone: Start: 02-29-2016 End: 02-29-2016 Follow Up Appt Other Follow Up Appt Other [facility] Work Phone: Start: 02-29-2016 End: 02-29-2016 PFM PFM [facility] Work Phone: Start: 01-19-2016 End: 01-19-2016 Carotid duplex Carotid duplex [facility] Work Phone: Start: 01-19-2016 End: 01-19-2016 Follow Up Appt 6 weeks Follow Up Appt 6 weeks [facility] Work Phone: Start: 01-19-2016 End: 11-10-2016 Follow Up Appt Other Follow Up Appt Other [facility] Work Phone: Start: 01-19-2016 End: 01-19-2016 MMM MMM [facility] Work Phone: Start: 01-19-2016 End: 01-19-2016 Carotid duplex Carotid duplex [facility] Work Phone: Start: 01-19-2016 End: [...] 3 months Follow Up Appt 3 months [facility] Work Phone: Start: 11-29-2015 End: 11-29-2015 Follow Up Appt 6 months Follow Up Appt 6 months [facility] Work Phone: Start: 11-29-2015 End: 11-29-2015 MMM MMM [facility] Work Phone: Start: 11-29-2015 End: 11-29-2015 PFM PFM [facility] Work Phone: Start: 11-29-2015 End: 11-29-2015 Follow Up Appt 3 months Follow Up Appt 3 months [facility] Work Phone: Start: 11-29-2015 End: 11-29-2015 Follow Up Appt 6 months Follow Up Appt 6 months [facility] Work Phone: Start: 11-29-2015 End: 11-29-2015 MMM MMM [facility] Work Phone: Start: 11-29-2015 End: 11-29-2015 PFM PFM [facility] Work Phone: Start: 10-22-2015 End: 10-22-2015 Ecg routine ecg w/least 12 lds w/i&r EKG (In office) [facility] Work Phone: Start: 10-22-2015 End: 10-22-2015 Follow Up Appt 6 weeks Follow Up Appt 6 weeks [facility] Work Phone: Start: 10-22-2015 End: 10-22-2015 MMM MMM [facility] Work Phone: Start: 10-22-2015 End: 10-22-2015 Electrocardiogram, complete EKG (In office) [facility] Work Phone: Start: 10-22-2015 End: 10-22-2015 Follow Up Appt 6 weeks Follow Up Appt 6 weeks [facility] Work Phone: Start: 10-22-2015 End: 10-22-2015 MMM MMM [facility] Work Phone: Start: 09-29-2015 End: 09-29-2015 Cardiac Referral Cardiac Referral Nahomy Garcia MD, [address], [place], [address] [facility] Work Phone: Start: 09-29-2015 End: 09-29-2015 Cardiac Referral Cardiac Referral Nahomy Garcia MD, [address], [place], [address] [facility] Work Phone: Start: 09-20-2015 End: 11-05-2015 Cardiac Rehab Cardiac Rehab [address] [place], [address] [facility] Work Phone: Start: 09-20-2015 End: 11-05-2015 External Counterpulsation Therapy External Counterpulsation Therapy [address] [place], [address] [facility] Work Phone: Start: 09-20-2015 End: 09-20-2015 Us abdominal real time w/image limited US Abdominal (aneurysm screening) [facility] Work Phone: Start: 09-20-2015 End: 11-05-2015 Cardiac Rehab Cardiac Rehab [address] [place], [address] [facility] Work Phone: Start: 09-20-2015 End: 09-20-2015 Echo exam of abdomen US Abdominal (aneurysm screening) [facility] Work Phone: Start: 09-20-2015 End: 11-05-2015 External Counterpulsation Therapy External Counterpulsation Therapy [address] [place], [address] [facility] Work Phone: Start: 07-22-2015 End: 07-22-2015 Echocardiography Echocardiogram (limited) [facility] Work Phone: Start: 07-22-2015 End: 07-22-2015 Follow Up Appt 3 months Follow Up Appt 3 months [facility] Work Phone: Start: 07-22-2015 End: 07-22-2015 MMM MMM [facility] Work Phone: Start: 07-22-2015 End: 07-22-2015 Echocardiography Echocardiogram (limited) [facility] Work Phone: Start: 07-22-2015 End: 07-22-2015 Follow Up Appt 3 months Follow Up Appt 3 months [facility] Work Phone: Start: 07-22-2015 End: 07-22-2015 MMM MMM [facility] Work Phone: Start: 06-21-2015 End: 06-23-2015 *BMP *BMP [facility] Work Phone: Start: 06-21-2015 End: 06-23-2015 *BMP *BMP [facility] Work Phone: Start: 06-10-2015 End: 07-15-2015 Follow Up Appt 3 months Follow Up Appt 3 months [facility] Work Phone: Start: 06-10-2015 End: 06-10-2015 Follow Up Appt 6 weeks Follow Up Appt 6 weeks [facility] Work Phone: Start: 06-10-2015 End: 06-23-2015 Follow Up BP Check Follow Up BP Check [facility] Work Phone: Start: 06-10-2015 End: 06-10-2015 MMM MMM [facility] Work Phone: Start: 06-10-2015 End: 07-15-2015 PFM PFM [facility] Work Phone: Start: 06-10-2015 End: 07-15-2015 Follow Up Appt 3 months Follow Up Appt 3 months [facility] Work Phone: Start: 06-10-2015 [...] stress test -Lexiscan Nuclear stress test -Lexiscan [facility] Work Phone: Start: 05-27-2015 End: 05-28-2015 Nuclear stress test -Lexiscan Nuclear stress test -Lexiscan [facility] Work Phone: Start: 2013 Hepatitis B Vaccine (1 of 3 - Risk 3-dose series) Hepatitis B Vaccine (1 of 3 - Risk 3-dose series) [facility] Start: 2013 RSV Vaccine (1 - 1-dose 60+ series) RSV Vaccine (1 - 1-dose 60+ series) [facility] Start: 2003 SHINGRIX VACCINE (1 of 2) SHINGRIX VACCINE (1 of 2) [facility] Start: 1998 COLOGUARD (FIT-DNA) COLOGUARD (FIT-DNA) [facility] Start: 1998 Colonoscopy COLONOSCOPY [facility] Start: 1998 COLORECTAL CANCER SCREENING COLORECTAL CANCER SCREENING [facility] Start: [address] COLONOGRAPHY [facility] Start: 1998 FECAL OCCULT BLOOD FECAL OCCULT BLOOD [facility] Start: 1998 Screening for malignant neoplasm of colon [facility] Start: 1998 SIGMOIDOSCOPY SIGMOIDOSCOPY [facility] Start: 1993 Mammography [facility] Start: 1993 Screening for malignant neoplasm of breast Mammogram Screening [facility] Start: 1972 Urine microalbumin profile [facility] Start: 1971 ANNUAL PCP TEAM CHRONIC DISEASE VISIT ANNUAL PCP TEAM CHRONIC DISEASE VISIT [facility] Start: 1971 BP CONTROLLED (<130/80) BP CONTROLLED (<130/80) [facility] Start: 1971 Hepatitis B surface antibody level LDL CHOLESTEROL [facility] Start: 1971 HEPATITIS C SCREENING HEPATITIS C SCREENING [facility] Start: 1971 Hepatitis C screening Hepatitis C Screening [facility] Start: 1965 Adult depression screening assessment DEPRESSION SCREENING [facility] Start: 1963 Hepatitis B screening URINE ALBUMIN:CREATININE RATIO [facility] Hemoglobin A1c/Hemoglobin.total in Blood [facility] Hemoglobin A1c/Hemoglobin.total in Blood [facility] Hemoglobin A1c/Hemoglobin.total in Blood [facility] NM Heart Views W str ess and W radionuclide IV [facility] Patient Education [facility] Work Phone: Patient referral [facility] Work Phone: Troponin T.cardiac [Mass/volume] in Serum or Plasma by High sensitivity method [facility] Troponin T.cardiac [Mass/volume] in Serum or Plasma by High sensitivity method [facility] End: 12-26-2024 US Abdomen RUQ US ABD RIGHT UPPER QUADRANT Radiology Routine 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 Occurrences starting 11/27/2023 until 12/26/2024 [facility] Work Phone: Comment on above: 1 Occurrences starting 11/27/2023 until 12/26/2024 Heart [facility] Immunizations Immunization Date Immunization Notes Care Provider Taye burden 06-07-2021 influenza virus vaccine, unspecified formulation Us 1 Work Phone: [facility] 05-09-2019 influenza, injectable,quadrivalent , preservative free, pediatric [facility] 05-27-2015 influenza, injectabl e, quadrivalent, preservative free [facility] Work Phone: [facility] 05-27-2015 influenza, seasonal, injectable [facility] Payers Date Payer Category Payer Medicare [id number] 2024 Medicare [id number] 2023 Self-pay [id number] 2022 Medicare AETNA MEDICARE A ETNA MEDICARE PPO [id number] 2022-Present [phone] [address] [place] [address] PPO [id number] 2022 Private Health Insurance [facility] [id number] 2018 Medicare MEDICARE MEDICAR E A AND B [id number] 2018-Present [phone] [address] [address] [place] [address] Medicare [id number] 2018 Unknown HOSPITAL/MEDICAL GENERIC MEDICAL GENERIC [id number] 2018-Present [phone] [address] [place] [address] Indemnity [id number] 2015 Unknown [id number] 1953 Unknown [id number] 2.16.840.1.545484.3.579.2. 278 1953 Unknown [id number] 2.16.840.1.575796.3.579.2. 278 1953 Unknown [id number] 2.16.840.1.107621.3.579.2. 278 1953 Unknown [id number] 2.16.840.1.956293.3.579.2. 278 1953 Unknown [id number] 2.16.840.1.548656.3.579.2. 278 1953 Unknown [id number] 2.16.840.1.315657.3.579.2. 278 1953 Unknown [id number] 2..840.1.099494.3.579.2. 278 Medicare [id number] Medicare MEDICARE PART A B [id number] 2 [id number] Unknown [id number] Unknown [id number] 2.16.840.1.750178.3.579.2. 462 Unknown [id number] 2.840.1.551973.3.579.2. 462 Unknown [id number] 2.840.1.979576.3.579.2. 462 Unknown [id number] 2.16840.1.564527.3.579.2. 462 Unknown [id number] 2..840.1.182909.3.579.2. 462 Unknown [id number] 2..840.1.175478.3.579.2. 462 Unknown [id number] 2.16840.1.448062.3.579.2. 462 Unknown [id number] 2.16.840.1.139168.3.579.2. 462 Unknown [id number] 2.16840.1.370840.3.579.2. 462 Unknown [id number] 2.16.840.1.029878.3.579.2. 462 Unknown [id number] 2.16.840.1.617561.3.579.2. 462 Unknown [id number] 2.16.840.1.236970.3.579.2. 462 Unknown [id number] 2.16.840.1.402568.3.579.2. 462 Unknown [id number] 2.16.840.1.014194.3.579.2. 462 Unknown [id number] 2.16.840.1.954347.3.579.2. 462 Unknown [id number] 2.16.840.1.530159.3.579.2. 462 Unknown [id number] 2.16.840.1.447326.3.579.2. 462 Unknown [id number] 2.16.840.1.435803.3.579.2. 462 Unknown [id number] 2.16.840.1.711101.3.579.2. 462 Unknown [id number] 2.16.840.1.814276.3.579.2. 462 Unknown [id number] 2.16.840.1.669486.3.579.2. 462 Unknown [id number] 2.16.840.1.141942.3.579.2. 462 Unknown [id number] 2.16.840.1.338837.3.579.2. 462 Unknown [id number] 2.16.840.1.881794.3.579.2. 462 Unknown [id number] 2.16.840.1.778570.3.579.2. 462 Social History Date Type Detail Facility Start: 02-22-2023 End: 01-27-2025 Tobacco smoking status PRIS Ex-smoker [facility] Work Phone: End: 12-26-2006 History of tobacco use Current smoker [facility] Start: 10-06-2021 End: 11-27-2023 Alcohol intake Current drinker of alcohol (finding) [facility] Start: 06-29-2021 History SDOH Alcohol Comment seldom [facility] Start: 1955 Sex Assigned At Not on file C [facility] Start: 09-26-2021 End: 10-06-2021 Exposure to SARS-CoV-2 (event) Not sure [facility] Work Phone: Start: 06-01-2022 End: 09-13-2023 Tobacco smoking status NHIS Unknown if ever smoked [facility] Start: 04-30-2020 None [facility] Start: 07-06-2020 Spouse/ Signif icant Other [facility] Start: 10-27-2019 Cigarettes [facility] Start: 1955 Sex Assigned At Female W [facility] End: 12-26-2006 History of tobacco use Cigarette Smoker [facility] Start: 01-03-2023 End: 02-22-2023 Cigarettes smoked current (pack per day) - Reported 2 [facility] Start: 02-22-2023 Tobacco use and exposure Smokeless tobacco non-user [facility] Start: 01-03-2023 End: 02-22-2023 Tobacco use panel [facility] Retired 07/10/2019 P HQ Score 0 [facility] Medical Equipment Procedure Code Equipment Code Equipment Origin al Text Equipment Identifier Dates 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: 03-16-2016 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: 03-16-2016 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: 03-16-2016 [employer] 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: 03-16-2016 [place] [employer] 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: 03-16-2016 [place] [employer] 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: 03-16-2016 [place] [employer] 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: 03-16-2016 [place] [employer] 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: 03-16-2016 [place] [employer] 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: 03-16-2016 [place] [employer] 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: 03-16-2016 [place] 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: 03-16-2016 [place] [employer] 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: 03-16-2016 [place] 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: 03-16-2016 [place] 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: 03-16-2016 [place] 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: 03-16-2016 [place] [employer] 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: 03-16-2016 [place] [employer] 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: 03-16-2016 [place] [employer] 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: 03-16-2016 [place] [employer] 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: 03-16-2016 [place] 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: 03-16-2016 [place] 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: 03-16-2016 [place] [employer] 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: 03-16-2016 [place] [employer] 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: 03-16-2016 [place] [employer] 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: 03-16-2016 [place] [employer] 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: 03-16-2016 [place] [employer] 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: 03-16-2016 [place] 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: 03-16-2016 [place] [employer] 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: 03-16-2016 [place] [employer] 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: 03-16-2016 [place] [employer] 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: 03-16-2016 [place] [employer] 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: 03-16-2016 [place] [employer] 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: 03-16-2016 [place] [employer] 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: 03-16-2016 [place] [employer] 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: 03-16-2016 [place] [employer] 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: 03-16-2016 [place] [employer] 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: 03-16-2016 [place] [employer] 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: 03-16-2016 [place] [employer] 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: 03-16-2016 [place] [employer] 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: 03-16-2016 [place] [employer] 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: 03-16-2016 [place] [employer] 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: 03-16-2016 [place] [employer] 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: 03-16-2016 [place] [employer] 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: 03-16-2016 [place] [employer] 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: 03-16-2016 [place] [employer] 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: 03-16-2016 [place] [employer] 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: 03-16-2016 [place] [employer] 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: 03-16-2016 [place] [employer] 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: 03-16-2016 [place] [employer] 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: 03-16-2016 [place] [employer] 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: 03-16-2016 [place] [employer] 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: 03-16-2016 [place] [employer] 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: 03-16-2016 [place] [employer] 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: 03-16-2016 [place] [employer] 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: 03-16-2016 [place] [employer] 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: 03-16-2016 [place] [employer] 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: 03-16-2016 [place] [employer] 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: 03-16-2016 [place] [employer] 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: 03-16-2016 [place] [employer] 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: 03-16-2016 [place] [employer] 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: 03-16-2016 [place] [employer] 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: 03-16-2016 [place] [employer] 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: 03-16-2016 [place] [employer] 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: 03-16-2016 [place] [employer] 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: 03-16-2016 [place] [employer] 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: 03-16-2016 [place] [employer] 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: 03-16-2016 [place] [employer] 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: 03-16-2016 [place] [employer] 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: 03-16-2016 [place] [employer] 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: 03-16-2016 [place] [employer] 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: 03-16-2016 [place] 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: 03-16-2016 [place] 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: 03-16-2016 Goals Date Patient Goal Desired Activity /State Functional Status Date Assessment Result Facility 01-27-2025 Functional status Activity Abili ty Standby Assist [facility] Work Phone: Mental Status Date Assessment Result Facility 01-27-2025 Cognitive function Voice/Name [facility] Work Phone: 01-26-2025 Cognitive function Level Of Cons ciousness Awake;Alert;Appropriate;Follow s Commands [facility] Work Phone: 09-13-2023 Cognitive function Voice/Name [facility] Work Phone: 06-01-2022 Cognitive function Level Of Cons ciousness Awake;Alert;Appropriate;Follow s Commands [facility] Work Phone: Clinical Notes 10-06-2021 to 01-27-2025 Note Date & Type Note Facility 01-27-2025 Procedure note [facility] 01-27-2025 Procedure note [facility] 01-27-2025 Discharge summary [facility] 01-27-2025 Discharge summary [facility] 01-27-2025 Hospital Discharge instructions Additional Instructions Date of Discharge: 01/27/25 [facility] Work Phone: 01-27-2025 Note [facility] Medical Records Department [address] [place] [address] Discharge Summary 01/27/25 1359 MR#: [id number] Acct: [id number] Name: THIAGO PIERRE Rep #: [id number] : 1955 69 From: Sidra Irving MD PCP: ARIA Long, [place] Status:ADM DENIS Location: [place] [address] Providers Date of Admission: 01/26/25 Date of Discharge: 01/27/25 Primary Care Physician: ARIA Long, EV[place] Consultations 01/26/25 16:52 Consult: Tele-Neurology Routine Consulting Provider: [facility] Reason for Consult: TIA rule out, episode of transient confusion yesterday EMERGENT Consult: No MD Notified: Yes Date Notified: 01/26/25 Time Notified: 17:29 Method of Notification: Answering Service Reason For Visit: TIZ RULE OUT Diagnosis Discharge Diagnosis (1) Confusion: Status: Acute Code(s): R41.0 - Disorientation, unspecified Medications at Discharge Home Medications aspirin 81 mg tablet,delayed release 81 mg PO DAILY@0800 [employer]INTE[employer] 01/26/17 magnesium chloride 71.5 mg (magnesium chloride) tablet,delayed release (Slow-Mag) 71.5 mg PO DAILY suppliment 07/23/20 Handicap Parking Placard #1 ea 05/09/22 sacubitril 97 mg-valsartan 103 mg tablet (Entresto) 1 tab PO BID HF #180 tabs 11/04/24 furosemide 20 mg tablet 20 mg PO QDAY water pill #90 tabs 11/17/24 amlodipine 10 mg tablet 10 mg PO DAILY 11/30/24 carvedilol 25 mg tablet 25 mg PO DAILY 11/30/24 cholecalciferol (vitamin D3) 1,250 mcg (50,000 unit) capsule 1,250 mcg PO QWEEK 11/30/24 insulin degludec 100 unit/mL (3 mL) subcutaneous pen (Tresiba FlexTouch U-100 insulin) 7 unit subcut Q24H diabetes 11/30/24 tirzepatide 5 mg/0.5 mL subcutaneous pen injector (Mounjaro) 5 mg (0.5 mL) subcut QWEEK #2 mL 12/29/24 dapagliflozin propanediol 10 mg tablet (Farxiga) 10 mg PO DAILY 01/26/25 gabapentin 600 mg tablet 600 mg PO DAILY 01/26/25 gabapentin 800 mg tablet 800 mg PO QHS 01/26/25 insulin lispro 100 unit/mL subcutaneous pen (Humalog KwikPen (U-100) Insulin) 10 unit subcut TID 01/26/25 Hospital Course Operations None Summary of Care Provided Minutes Spent on Discharge: 45 Hospital Course: Patient is a 69-year-old female with past medical history as outlined was admitted through the ED on 01/26/2025 with a complaint of transient episode of confusion. She says she was at her [id number]-gn-rvr's house and took a nap and when she woke up she was confused and did not know where she was aware. This lasted for just about 5 minutes. She had been to her she had retinopathy of the right eye for several weeks prior to admission. She went to see a specialist but there was concern that her confusion could be due to a stroke so she was sent to the ED to rule out a stroke. CT of the brain was negative for any evidence of stroke. Neurology reviewed her recommended MRI. She had MRI of the brain which also showed no acute ischemic pathology and no acute intracranial pathology. Neurology felt her symptoms might be related to a migraine headache and was likely benign and recommended using her headache cocktail of ketorolac, metoclopramide or Zofran or Compazine and Benadryl as well as magnesium sulfate if needed. However patient's headache did not really recur and she felt much better. She had had a 2D echo on 01/19/2025 so this was not repeated. She remained stable and was discharged on 01/27/2025. She is follow-up with her primary care doctor within 1 to 2 weeks. Patient seen and examined prior to discharge. As well as by her bedside. She had no complaints and had an uneventful night. Review of systems otherwise negative. Labs and vitals reviewed. Medication reviewed and reconciled. Physical Exam Const alert and oriented x3 Constitutional Narrative: class III obesity General Appearance: cooperative and comfortable Exam Limitations: no limitations HEENT normocephalic, head/scalp atraumatic and hearing grossly normal bilaterally Mouth: oral and palatal mucosa normal Eyes EOMs intact bilaterally and conjunctivae normal Neck supple Resp normal respiratory effort, no use of accessory muscles and clear to auscultation bilaterally Cardio regular rate, regular rhythm, S1 normal heart sound, S2 normal heart sound and no murmurs GI normal to inspection, nondistended, normoactive bowel sounds, soft to palpation, non-tender and non- distended Extremity normal to inspection and full ROM Skin no rashes or lesions noted Neuro oriented x3, moves all extremities, no focal motor deficits and no sensory deficits noted Sensorium / Orientation: awake and alert Motor Exam: strength 5/5 throughout Psych affect normal Weight / BMI Weight Weight: 261 lb 11.019 oz Body Mass Index (BMI) 44.9 ABG / Lab / Microbiology Data 01/27/25 05:04 01/27/25 05:04 Laboratory: Laboratory Res (more content not included)... [facility] 01-27-2025 Consult note Note Date/Time January 27, 2025 11:39am [facility] Medical Records Department [address] [place] [address] Consultation - Neurology 01/27/25 1040 MR#: [id number] Acct: [id number] Name: THIAGO PIERRE Rep #:[id number] : 1955 69 From: Joleen Spangler MD PCP: ARIA Long, H[employer]NAGER [employer] Statu s:ADM DENIS Location: [place] [address] Assessment and Plan: Neuro Assessment/Plan THIAGO PIERRE is a 69 F with a past medical history of HTN, HLD, who is presenting with a transient episode of confusion upon awakening lasting 5 minutes in the setting of bilateral frontal headache that has been going on for few days. Exam and MRI brain are reassuring Episode likely benign related to migraine headache and waking up from a nap Patietn is at her baseline Can utilize headache cocktial if needed. Can give all the following together unless contraindicated. - ketorolac 30mg IVP or 30-60mg IM - metoclopramide 10mg IVP over 2min OR ondansetron 8mg IVP OR prochlorperazine 10mg IVP over 30s q2-4h PRN - Benadryl 25 or 50 mg IV - IVF - Magnesium Sulfate 1 gram IV over 1 hr She should follow up with ophtho as planned given retinopathy Will sign off. Please call with questions I personally attended this patient and spent a total time of 45 minutes evaluating this patient including clinical assessment, review of chart, medical history imaging, and determining appropriate treatment and workup. HPI Consult Data Date of Consult: 01/27/25 HPI Narrative HPI Narrative: THIAGO PIERRE, is a 69-year-old woman with history of nonobstructive CAD, BiV ICDin 2016, diabetes, NICOLLE, hypertension, depression, GERD, heart failure with recovered EF, migraines presented to [facility] ED 01/26/2025 dueto transient episode of confusion. Reportedly patient had a headache yesterday around 4 days ago, headache is bilateral frontal, pulsating in nature. Some photophobia, no phonophobia. No nausea/vomiting. She took a nap, when she woke up she was confused for 5 minutesand did not know where she was or who her family members were, this completely resolved after 5 minutes. Patient reports she was aware of the episode, she remembers it, she asked where she was. No reports of slurred speech of facial droop. The episode resolved. Headache continued until now, it is a little betternow but is still there. No tingilng, numbness, weakness. She also notes that she has had a screen like feeling over her right eye for several weeks but yesterday she developed dark lines and spots in her vision, today she went to the gl accountant and was told she has retinopathy and had some bleeding behind the eye and was referred to a specialist who she will follow-up with on Sunday but they recommended patient come to the ED to rule out a stroke given the episode of confusion yesterday. In the ED blood pressure 117/88, respiratory rate 16 and pulse ox 95% on room air. BMP with a glucose of 139, BUN of 25 and creatinine 1.09. CBC unremarkable, INR 1.1. CT of the head with no acute process, CTA head and neck no LVO. MRI brain with no acute findings PHYSICAL EXAM: Exam performed with help of the nurse/ROSALIA present with patient on Tele site NEURO: AAOx3, follows commands, no aphasia/dysarthria. EOMI, no gaze preference/nystagmus. Face symmetric, Intact facial sensation. Tongue midline. Head turning intact. Sensation: intact to light touch all over Motor: All extremities antigravity Coordination: FTN intact bilaterally PFSH Medical History Essential hypertension Elevated troponin History of diabetes mellitus Hx of cardiomyopathy Dysarthria Medication reaction Intractable nausea and vomiting Dizziness Depression Near syncope Vertigo Carotid artery disease Pure hypercholesterolemia Atherosclerotic heart disease of nikolai coronary artery without angina pectoris Nonrheumatic mitral (valve) insufficiency Dilated cardiomyopathy Chronic systolic (congestive) heart failure BALWINDER (acute kidney injury) Abnormal electrocardiogram Systolic CHF, acute Hypertension Hyperlipidemia Diabetes mellitus, type II NICOLLE (obstructive sleep apnea) Home Medications ?Medication ?Instructions ?Recorded ?Last Taken ?Type aspirin 81 mg tablet,delayed 81 mg PO DAILY@0800 HEALT H 01/26/17 01/25/25 History release MAINTENANCE magnesium chloride 71.5 mg 71.5 mg PO DAILY suppliment 07/23/20 01/26/25 History (magnesium chloride) tablet,delayed release (Slow-Mag) Handicap Parking Placard #1 ea 05/09/22 Unknown Rx sacubitril 97 mg-valsartan 103 mg 1 tab PO BID HF #180 tabs 11/04/24 01/26/25 Rx tablet (Entresto) furosemide 20 mg tablet 20 mg PO QDAY water pill #90 tabs 11/17/24 01/26/25 Rx amlodipine 10 mg tablet 10 mg PO DAILY 11/30/2401/09 History carvedilol 25 mg tablet 25 mg PO DAILY 11/30/2401/09 History cholecalciferol (vitamin D3) 1,250 1,250 mcg PO QWEEK 11/30/24 01/18/25 History mcg (50,000 unit) capsule insulin degludec 100 unit/mL (3 7 unit subcut Q24H amara betes 11/30/24 11/30/24 History mL) subcutaneous pen (Tresiba FlexTouch U-100 insulin) tirzepatide 5 mg/0.5 mL 5 mg (0.5 mL) subcut QWEEK # 2 mL 12/29/24 01/21/25 Rx subcutaneous pen injector (Abdirashid) dapagliflozin propanediol 10 mg 10 mg PO DAILY 5 01/26/25 History tablet (Farxiga) gabapentin 600 mg tablet 600 mg PO DAILY 01/26/25 History gabapentin 800 mg tablet 800 mg PO QHS 01/26/2501/25 History insulin lispro 100 unit/mL 10 unit subcut TID 01/26/25 01/26/25 History subcutaneous pen (Humalog KwikPen (U-100) Insulin) Allergy/AdvReac Type Severity Reaction Status Date / Time red dye Allergy Hives Verified 01/26/25 11:33 Umnmlht-LHM-ZpD Reductase AdvReac Severe Myalgias Verified 01/26/25 11:33 Inhibitor (Iwilror-Lez-Ivp Reductase Inhibitor) Family History Father , Lung [...] do you feel safe at home: Yes Vital Signs Vital Signs Vital Signs: 01/26/25 11:33 01/26/25 13:28 01/26/25 14:00 Temperature 98.0 F Temperature Source Oral Pulse Rate 124 H 60 61 Pulse Strength Respiratory Rate 16 14 16 Respiratory Effort Respiratory Depth Respiratory Pattern Blood Pressure 117/80 110/64 139/73 H Blood Pressure Mean 92 79 95 Blood Pressure Source Blood Pressure Position Blood Pressure Location Pulse Ox 95 93 95 Oxygen Delivery Method Room Air 01/26/25 15:00 01/26/25 15:46 01/26/25 17:10 Temperature 97.6 F L 98.2 F Temperature Source Oral Pulse Rate 76 76 59 L Pulse Strength Respiratory Rate 18 18 18 Respiratory Effort Respiratory Depth Respiratory Pattern Blood Pressure 107/93 H 107/93 H 152/76 H Blood Pressure Mean 97 97 101 Blood Pressure Source Monitor Blood Pressure Position Semi-Fowlers Blood Pressure Location Left Forearm Pulse Ox 99 99 96 Oxygen Delivery Method Room Air Room Air 01/26/25 17:10 01/26/25 17:18 01/26/25 20:18 Temperature 97.7 F L Temperature Source Oral Pulse Rate 59 L Pulse Strength Respiratory Rate 18 Respiratory Effort Normal Non-Labored Respiratory Depth Normal Respiratory Pattern Normal Blood Pressure 152/76 H Blood Pressure Mean 101 Blood Pressure Source Monitor Blood Pressure Position Semi-Fowlers Blood Pressure Location Left Forearm Pulse Ox 96 95 Oxygen Delivery Method Room Air Room Air Room Air 01/26/25 20:40 01/26/25 22:35 01/27/25 00:41 Temperature 97.6 F L 97.0 F L Temperature Source Temporal Temporal Pulse Rate 61 61 Pulse Strength Normal (2+) Respiratory Rate 18 18 Respiratory Effort Respiratory Depth Respiratory Pattern Blood Pressure 141/62 H 131/66 H Blood Pressure Mean 88 87 Blood Pressure Source Monitor Monitor Blood Pressure Position Semi-Fowlers Semi-Fowlers Blood Pressure Location Left Arm Left Forearm Pulse Ox 95 94 Oxygen Delivery Method Room Air Room Air 01/27/25 00:50 01/27/25 04:40 01/27/25 07:29 Temperature 98.0 F Temperature Source Temporal Pulse Rate 66 Pulse Strength Respiratory Rate 18 Respiratory Effort Normal Non-Labored Respiratory Depth Normal Respiratory Pattern Normal Blood Pressure 117/58 L Blood Pressure Mean 77 Blood Pressure Source Monitor Blood Pressure Position Semi-Fowlers Blood Pressure Location Left Forearm Pulse Ox 94 95 Oxygen Delivery Method Room Air Room Air Room Air 01/27/25 08:40 01/27/25 08:47 01/27/25 08:48 Temperature 98.1 F Temperature Source Oral Pulse Rate 63 Pulse Strength Normal (2+) Respiratory Rate 17 Respiratory Effort Normal Non-Labored Respiratory Depth Normal Respiratory Pattern Normal Blood Pressure 123/67 H Blood Pressure Mean 85 Blood Pressure Source Monitor Blood Pressure Position Semi-Fowlers Blood Pressure Location Right Arm Pulse Ox 95 Oxygen Delivery Method Room Air Room Air 01/27/25 10:22 01/27/25 10:32 Temperature Temperature Source Pulse Rate 80 80 Pulse Strength Respiratory Rate 16 16 Respiratory Effort Respiratory Depth Respiratory Pattern Blood Pressure 140/69 H 117/77 Blood Pressure Mean 92 90 Blood Pressure Source Monitor Monitor Blood Pressure Position Supine Supine Blood Pressure Location Left Arm Left Arm Pulse Ox 95 92 Oxygen Delivery Method Room Air Room Air Weight Weight: 118.7 kg Body Mass Index (BMI) 44.9 EEG Results Procedure Details EEG Procedure Details: THIAGO PIERRE is a 69 year old F with a past medical history of , who presents for evaluation of Electroencephalogram on DATE at TIME Lab / Micro Data 01/27/25 05:04 01/27/25 05:04 Labs: Laboratory Results - last 24 hr 01/26/25 12:22: WBC 6.0, RBC 4.57, Hgb 13.2, Hct 40.8, MCV 89.3, MCH 28.9, MCHC 32.4, RDW Std Deviation 42.8, RDW Coeff of Ivet 13.2, Plt Count 278, MPV 9.5, Immature Gran % (Auto) 0.500, Neut % (Auto) 47.9, Lymph % (Auto) 39.4, [place] % (Auto) 9.0, Eos % (Auto) 2.7, Baso % (Auto) 0.5, Absolute Neuts (auto) 2.9, Absolute Lymphs (auto) 2.36, Nucleated RBC % 0, PT 14.0, INR 1.1, Sodium 139, Potassium 4.2, Chloride 105, Carbon Dioxide 22.0, Anion Gap 12, BUN 25 H, Creatinine 1.09, Estim Creat Clear Calc 59.78, Est GFR (MDRD) Non-Af 54 L, BUN/Creatinine Ratio 22.8 H, Glucose 139 H, Calcium 9.4, Troponin T High Sens 15 H D 01/26/25 15:25: Troponin T Hi Sens 2 Hr 14 01/26/25 16:48: Troponin T Hi Sens 4Hr 11 01/26/25 18:24: POC Glucose 113 H 01/26/25 20:35: POC Glucose 153 H 01/27/25 05:04: WBC 5.4, RBC 4.44, Hgb 12.8, Hct 39.0, MCV 87.8, MCH 28.8, MCHC 32.8, RDW Std Deviation 42.6, RDW Coeff of Ivet 13.3, Plt Count 265, MPV 9.2, Immature Gran % (Auto) 0.600, Neut % (Auto) 53.5, Lymph % (Auto) 34.6, [place] % (Auto) 7.1, Eos % (Auto) 3.6, Baso % (Auto) 0.6, Absolute Neuts (auto) 2.9, Absolute Lymphs (auto) 1.85, Nucleated RBC % 0, Sodium 138, Potassium 4.3, Chloride 105, Carbon Dioxide 20.2 L, Anion Gap 13, BUN 22 H, Creatinine 1.17, Estim Creat Clear Calc 55.91, Est GFR (MDRD) Non-Af 50 L, BUN/Creatinine Ratio 18.9, Glucose 152 H, Hemoglobin A1c 8.1 H, Calcium 8.6, Triglycerides 218 H, Cholesterol 220 H, LDL Cholesterol, Calc 133, VLDL Cholesterol 44 H, HDL Cholesterol 43, Cholesterol/HDL Ratio 5.10, TSH 3.260 01/27/25 06:39: POC Glucose 152 H Imaging Radiology Impression Brain CT 01/26/25 12:27 IMPRESSION: 1. No evidence of intracranial hemorrhage or acute ischemia. 2. Changes of chronic microvascular ischemia and volume loss. Reading Location: [id number] Head/Neck CTA 01/26/25 12:27 IMPRESSION: Minimal plaque formation at the origin of the right and left internal carotid arteries causing minimal narrowing. Reading Location: [id number] Active Medications Active Medications Active Medications: Current Medications Generic Name Dose Route Start Last Admin Trade Name Freq PRN Reason Stop Dose Admin Acetaminophen 650 mg 01/26/25 18:30 Acetaminophen 325 Mg Tablet PO Q6H PRN PRN Pain 1-10 Or Fever >100.7 Albuterol Sulfate 2.5 mg 01/26/25 16:52 Albuterol 2.5 Mg/3 Ml Vial.Neb. INHALATION Q2H PRN PRN SOB &/OR WHEEZING Amlodipine Besylate 10 mg 01/27/25 10:00 01/27/25 09:06 Amlodipine 10 Mg Tablet PO Not Given DAILY REPLACED BY [facility] Protocol Aspirin 81 mg 01/27/25 08:00 01/27/25 08:54 Aspirin 81 Mg Tab.Chew PO 81 mg BREAKFAST ABDULLAHI Administration Carvedilol 12.5 mg 01/26/25 22:00 01/27/25 09:06 Carvedilol 12.5 Mg Tablet PO Not Given BID ABDULLAHI Furosemide 20 mg 01/26/25 16:52 01/26/25 18:26 Furosemide 20 Mg Tablet PO Not Given DAILY ABDULLAHI Protocol Gabapentin 600 mg 01/27/25 10:00 01/27/25 08:54 Gabapentin 600 Mg Tablet PO 600 mg DAILY ABDULLAHI Administration Gabapentin 800 mg 01/26/25 22:00 01/26/25 20:43 Gabapentin 800 Mg Tablet PO 800 mg QHS ABDULLAHI Administration Glucagon 1 mg 01/26/25 16:52 Glucagon 1 Mg/Ml Syringe IM X1 PRN HYPOGLYCEMIA Protocol Hydralazine HCl 5 mg 01/26/25 16:52 Hydralazine 20 Mg/Ml Vial IV 01/27/25 16:52 Q30M PRN maintain BP parameters with HR <60 Dextrose 250 mls @ 0 mls/hr 01/26/25 16:52 Dextrose 10%-Water IV .Q0M PRN HYPOGLYCEMIA Protocol As Directed Sodium Chloride 250 mls @ 15 mls/hr 01/26/25 18:14 IV .[id number] PRN Saline Flush Sodium Chloride 250 mls @ 15 mls/hr 01/26/25 18:14 IV .[id number] PRN Additional IVPB Infusion Insulin Glargine 7 unit 01/26/25 16:52 01/26/25 18:25 Insulin Glargine-Yfgn 100 Unit/Ml Pen SC Not Given Q24H REPLACED BY [facility] Insulin Human Lispro 0 unit 01/26/25 16:52 01/27/25 06:42 Insulin Lispro 100 Unit/Ml Insuln.Pen SC 1 u ACHS REPLACED BY [facility] Administration Protocol Labetalol HCl 10 - 20 mg 01/26/25 16:52 Labetalol 20 Mg/4 Ml Vial IV 01/27/25 16:52 Q10M PRN PRN maintain BP parameters with HR >/=60 Lorazepam 0.5 mg 01/26/25 16:52 01/27/25 09:42 Lorazepam 0.5 Mg Tablet PO 0.5 mg X1 PRN Administration Anxiety with MRI Melatonin 10 mg 01/26/25 16:52 Melatonin 3 Mg Tablet PO QHS PRN PRN INSOMNIA Ondansetron HCl 4 mg 01/26/25 16:52 Ondansetron 4 Mg/2 Ml Vial IV Q8H PRN PRN NAUSEA/VOMITING Oxycodone HCl 2.5 mg 01/26/25 16:52 Oxycodone 5 Mg Tablet PO Q4H PRN PRN Pain Score 4-10 Polyethylene Glycol 17 gm 01/26/25 22:00 Polyethylene Glycol 3350 17 Gm Packet PO BID PRN Constipation Sacubitril/Valsartan 1 each 01/26/25 22:00 01/27/25 09:06 Sacubitril/Valsartan 97-103 Mg Tablet PO Not Given BID ABDULLAHI Sodium Chloride 10 - 40 ml 01/26/25 18:14 01/27/25 09:35 0.9% Saline Lock 10 Ml Syringe IV 10 ml UD PRN Administration SALINE FLUSH NIHSS NIHSS Nursing Documentation NIHSS Nursing Documentation: NIHSS: Ischemic Stroke/TIA Start: 01/26/25 16:52 Text: For PCU Patients: NIH and Neuro Check every 4 Status: Active hours, PRN and with change in RN caregiver. Freq: [id number] Protocol: Activity Type Activity Date Activity User E-sign Co-sign Detail Recorded Client Recorded Date Recorded By Document 01/27/25 08:40 [id number] 01/27/25 08:47 01/27/25 08:40 NIH Stroke Scale [NIHSS] A score of 0 is normal or asymptomatic . Total possible score is 42. Inpatient: RN or Physician to activate a stroke alert for onset of new stroke symptoms or with NIHSS increase >/= 3 points. Following change in neurological status, NIHSS will be performed per physician order or more frequently PRN. -1a. Level of Consciousness 0 - Alert; keenly responsive -1b. LOC Questions 0 - Answers BOTH questions correctly -1c. LOC Commands 0 - Performs BOTH tasks correctly -2. Best Gaze 0 - Normal -3. Visual 0 - No visual loss -4. Facial Palsy 0 - Normal symmetrical movements -5a. Left Arm 0 - No drift; arm holds 90 ( or 45) degrees for full 10 seconds -5b. Right Arm 0 - No drift; arm holds 90 ( or 45) degrees for full 10 seconds -6a. Left Leg 0 - No drift; leg holds 30- degree position for full 5 seconds -6b. Right Leg 0 - No drift; leg holds 30- degree position for full 5 seconds -7. Limb Ataxia 0 - Absent -8. Sensory 0 - Normal; no sensory loss -9. Best Language 0 - No aphasia; normal -10. Dysarthria 0 - Normal -11. Extinction and Inattention 0 - No abnormality -Total 0 Query Text:A score of 0 is normal or asymptomatic. Total possible score is 42 . ED: Notify Physician for NIHSS increase by > / = 3 points. Inpatient: RN or Physician to activate a stroke alert for NIHSS increase of > / = 3 points. Coma Scale [Assess] -Eye Opening Spontaneous -Motor Obeys Commands -Verbal Oriented [Total] -Coma Scale Total 15 01/27/25 1139 <Electronically signed by Joleen Spangler MD> Cosigner Signature (if applicable): CC: ARIA H[employer] MANAGER [employer] Sarah Toth~ Signed [facility] Work Phone: [phone] 391-626908-19-2025 Consult note [facility] Medical Records Department [address] [place] [address] Consultation - Neurology 01/27/25 1040 MR#: [id number] Acct: [id number] Name: THIAGO PIERRE Rep #:[id number] : 1955 69 From: Joleen Spangler MD PCP: Sarah Toth, ARIA, HUMAN RESOURCES MANAGER [employer]UFA[employer]URING-[employer] Statu s:ADM DENIS Location: [place] [address] Assessment and Plan: Neuro Assessment/Plan THIAGO PIERRE is a 69 F with a past medical history of HTN, HLD, who is presenting with a transient episode of confusion upon awakening lasting 5 minutes in the setting of bilateral frontal headache that has been going on for few days. Exam and MRI brain are reassuring Episode likely benign related to migraine headache and waking up from a nap Patietn is at her baseline Can utilize headache cocktial if needed. Can give all the following together unless contraindicated. - ketorolac 30mg IVP or 30-60mg IM - metoclopramide 10mg IVP over 2min OR ondansetron 8mg IVP OR prochlorperazine 10mg IVP over 30s q2-4h PRN - Benadryl 25 or 50 mg IV - IVF - Magnesium Sulfate 1 gram IV over 1 hr She should follow up with ophtho as planned given retinopathy Will sign off. Please call with questions I personally attended this patient and spent a total time of 45 minutes evaluating this patient including clinical assessment, review of chart, medical history imaging, and determining appropriate treatment and workup. HPI Consult Data Date of Consult: 01/27/25 HPI Narrative HPI Narrative: THIAGO PIERRE, is a 69-year-old woman with history of nonobstructive CAD, BiV ICDin 2016, diabetes, NICOLLE, hypertension, depression, GERD, heart failure with recovered EF, migraines presented to [facility] ED 01/26/2025 dueto transient episode of confusion. Reportedly patient had a headache yesterday around 4 days ago, headache is bilateral frontal, pulsating in nature. Some photophobia, no phonophobia. No nausea/vomiting. She took a nap, when she woke up she was confused for 5 minutesand did not know where she was or who her family members were, this completely resolved after 5 minutes. Patient reports she was aware of the episode, she remembers it, she asked where she was. No reports of slurred speech of facial droop. The episode resolved. Headache continued until now, it is a little betternow but is still there. No tingilng, numbness, weakness. She also notes that she has had a screen like feeling over her right eye for several weeks but yesterday she developed dark lines and spots in her vision, today she went to the gl accountant and was told she has retinopathy and had some bleeding behind the eye and was referred to a specialist whoshe will follow-up with on Sunday but they recommended patient come to the ED to rule out a stroke given the episode of confusion yesterday. In the ED blood pressure 117/88, respiratory rate 16 and pulse ox 95% on room air. BMP with a glucose of 139, BUN of 25 and creatinine 1.09. CBC unremarkable, INR 1.1. CT of the head with no acute process, CTA head and neck no LVO. MRI brain with no acute findings PHYSICAL EXAM: Exam performed with help of the nurse/ROSALIA present with patient on Tele site NEURO: AAOx3, follows commands, no aphasia/dysarthria. EOMI, no gaze preference/nystagmus. Face symmetric, Intact facial sensation. Tongue midline. Head turning intact. Sensation: intact to light touch all over Motor: All extremities antigravity Coordination: FTN intact bilaterally PFSH Medical History Essential hypertension Elevated troponin History of diabetes mellitus Hx of cardiomyopathy Dysarthria Medication reaction Intractable nausea and vomiting Dizziness Depression Near syncope Vertigo Carotid artery disease Pure hypercholesterolemia Atherosclerotic heart disease of nikolai coronary artery without angina pectoris Nonrheumatic mitral (valve) insufficiency Dilated cardiomyopathy Chronic systolic (congestive) heart failure BALWINDER (acute kidney injury) Abnormal electrocardiogram Systolic CHF, acute Hypertension Hyperlipidemia Diabetes mellitus, type II NICOLLE (obstructive sleep apnea) Home Medications ?Medication ?Instructions ?Recorded ?Last Taken ?Type aspirin 81 mg tablet,delayed 81 mg PO DAILY@0800 HEALT H 01/26/17 01/25/25 History release MAINTENANCE magnesium chloride 71.5 mg 71.5 mg PO DAILY suppliment 07/23/20 01/26/25 History (magnesium chloride) tablet,delayed release (Slow-Mag) Handicap Parking Placard #1 ea 05/09/22 Unknown Rx sacubitril 97 mg-valsartan 103 mg 1 tab PO BID HF #180 tabs 11/04/24 01/26/25 Rx tablet (Entresto) furosemide 20 mg tablet 20 mg PO QDAY water pill #90 tabs 11/17/24 01/26/25 Rx amlodipine 10 mg tablet 10 mg PO DAILY 11/30/2401/09 History carvedilol 25 mg tablet 25 mg PO DAILY 11/30/2401/09 History cholecalciferol (vitamin D3) 1,250 1,250 mcg PO QWEEK 11/30/24 01/18/25 History mcg (50,000 unit) capsule insulin degludec 100 unit/mL (3 7 unit subcut Q24H amara betes 11/30/24 11/30/24 History mL) subcutaneous pen (Tresiba FlexTouch U-100 insulin) tirzepatide 5 mg/0.5 mL 5 mg (0.5 mL) subcut QWEEK # 2 mL 12/29/24 01/21/25 Rx subcutaneous pen injector (Abdirashid) dapagliflozin propanediol 10 mg 10 mg PO DAILY 5 01/26/25 History tablet (Farxiga) gabapentin 600 mg tablet 600 mg PO DAILY 01/26/25 History gabapentin 800 mg tablet 800 mg PO QHS 01/26/2501/25 History insulin lispro 100 unit/mL 10 unit subcut TID 01/26/25 01/26/25 History subcutaneous pen (Humalog KwikPen (U-100) Insulin) Allergy/AdvReac Type Severity Reaction Status Date / Time red dye Allergy Hives Verified 01/26/25 11:33 Rvbobwq-JSI-GiI Reductase AdvReac Severe Myalgias Verified 01/26/25 11:33 Inhibitor (Dipwzex-Ekc-Kct Reductase Inhibitor) Family History Father , Lung [...] do you feel safe at home: Yes Vital Signs Vital Signs Vital Signs: 01/26/25 11:33 01/26/25 13:28 01/26/25 14:00 Temperature 98.0 F Temperature Source Oral Pulse Rate 124 H 60 61 Pulse Strength Respiratory Rate 16 14 16 Respiratory Effort Respiratory Depth Respiratory Pattern Blood Pressure 117/80 110/64 139/73 H Blood Pressure Mean 92 79 95 Blood Pressure Source Blood Pressure Position Blood Pressure Location Pulse Ox 95 93 95 Oxygen Delivery Method Room Air 01/26/25 15:00 01/26/25 15:46 01/26/25 17:10 Temperature 97.6 F L 98.2 F Temperature Source Oral Pulse Rate 76 76 59 L Pulse Strength Respiratory Rate 18 18 18 Respiratory Effort Respiratory Depth Respiratory Pattern Blood Pressure 107/93 H 107/93 H 152/76 H Blood Pressure Mean 97 97 101 Blood Pressure Source Monitor Blood Pressure Position Semi-Fowlers Blood Pressure Location Left Forearm Pulse Ox 99 99 96 Oxygen Delivery Method Room Air Room Air 01/26/25 17:10 01/26/25 17:18 01/26/25 20:18 Temperature 97.7 F L Temperature Source Oral Pulse Rate 59 L Pulse Strength Respiratory Rate 18 Respiratory Effort Normal Non-Labored Respiratory Depth Normal Respiratory Pattern Normal Blood Pressure 152/76 H Blood Pressure Mean 101 Blood Pressure Source Monitor Blood Pressure Position Semi-Fowlers Blood Pressure Location Left Forearm Pulse Ox 96 95 Oxygen Delivery Method Room Air Room Air Room Air 01/26/25 20:40 01/26/25 22:35 01/27/25 00:41 Temperature 97.6 F L 97.0 F L Temperature Source Temporal Temporal Pulse Rate 61 61 Pulse Strength Normal (2+) Respiratory Rate 18 18 Respiratory Effort Respiratory Depth Respiratory Pattern Blood Pressure 141/62 H 131/66 H Blood Pressure Mean 88 87 Blood Pressure Source Monitor Monitor Blood Pressure Position Semi-Fowlers Semi-Fowlers Blood Pressure Location Left Arm Left Forearm Pulse Ox 95 94 Oxygen Delivery Method Room Air Room Air 01/27/25 00:50 01/27/25 04:40 01/27/25 07:29 Temperature 98.0 F Temperature Source Temporal Pulse Rate 66 Pulse Strength Respiratory Rate 18 Respiratory Effort Normal Non-Labored Respiratory Depth Normal Respiratory Pattern Normal Blood Pressure 117/58 L Blood Pressure Mean 77 Blood Pressure Source Monitor Blood Pressure Position Semi-Fowlers Blood Pressure Location Left Forearm Pulse Ox 94 95 Oxygen Delivery Method Room Air Room Air Room Air 01/27/25 08:40 01/27/25 08:47 01/27/25 08:48 Temperature 98.1 F Temperature Source Oral Pulse Rate 63 Pulse Strength Normal (2+) Respiratory Rate 17 Respiratory Effort Normal Non-Labored Respiratory Depth Normal Respiratory Pattern Normal Blood Pressure 123/67 H Blood Pressure Mean 85 Blood Pressure Source Monitor Blood Pressure Position Semi-Fowlers Blood Pressure Location Right Arm Pulse Ox 95 Oxygen Delivery Method Room Air Room Air 01/27/25 10:22 01/27/25 10:32 Temperature Temperature Source Pulse Rate 80 80 Pulse Strength Respiratory Rate 16 16 Respiratory Effort Respiratory Depth Respiratory Pattern Blood Pressure 140/69 H 117/77 Blood Pressure Mean 92 90 Blood Pressure Source Monitor Monitor Blood Pressure Position Supine Supine Blood Pressure Location Left Arm Left Arm Pulse Ox 95 92 Oxygen Delivery Method Room Air Room Air Weight Weight: 118.7 kg Body Mass Index (BMI) 44.9 EEG Results Procedure Details EEG Procedure Details: THIAGO PIERRE is a 69 year old F with a past medical history of , who presents for evaluation of Electroencephalogram on DATE at TIME Lab / Micro Data 01/27/25 05:04 01/27/25 05:04 Labs: Laboratory Results - last 24 hr 01/26/25 12:22: WBC 6.0, RBC 4.57, Hgb 13.2, Hct 40.8, MCV 89.3, MCH 28.9, MCHC 32.4, RDW Std Deviation 42.8, RDW Coeff of Ivet 13.2, Plt Count 278, MPV 9.5, Immature Gran % (Auto) 0.500, Neut % (Auto) 47.9, Lymph % (Auto) 39.4, [place] % (Auto) 9.0, Eos % (Auto) 2.7, Baso % (Auto) 0.5, Absolute Neuts (auto) 2.9, Absolute Lymphs (auto) 2.36, Nucleated RBC % 0, PT 14.0, INR 1.1, Sodium 139, Potassium 4.2, Chloride 105, Carbon Dioxide 22.0, Anion Gap 12, BUN 25 H, Creatinine 1.09, Estim Creat Clear Calc 59.78, Est GFR (MDRD) Non-Af 54 L, BUN/Creatinine Ratio 22.8 H, Glucose 139 H, Calcium 9.4, Troponin T High Sens 15 H D 01/26/25 15:25: Troponin T Hi Sens 2 Hr 14 01/26/25 16:48: Troponin T Hi Sens 4Hr 11 01/26/25 18:24: POC Glucose 113 H 01/26/25 20:35: POC Glucose 153 H 01/27/25 05:04: WBC 5.4, RBC 4.44, Hgb 12.8, Hct 39.0, MCV 87.8, MCH 28.8, MCHC 32.8, RDW Std Deviation 42.6, RDW Coeff of Ivet 13.3, Plt Count 265, MPV 9.2, Immature Gran % (Auto) 0.600, Neut % (Auto) 53.5, Lymph % (Auto) 34.6, [place] % (Auto) 7.1, Eos % (Auto) 3.6, Baso % (Auto) 0.6, Absolute Neuts (auto) 2.9, Absolute Lymphs (auto) 1.85, Nucleated RBC % 0, Sodium 138, Potassium 4.3, Chloride 105,Carbon Dioxide 20.2 L, Anion Gap 13, BUN 22 H, Creatinine 1.17, Estim Creat Clear Calc 55.91, Est GFR (MDRD) Non-Af 50 L, BUN/Creatinine Ratio 18.9, Glucose 152 H, Hemoglobin A1c 8.1 H, Calcium 8.6, Triglycerides 218 H, Cholesterol 220 H, LDL Cholesterol, Calc 133, VLDL Cholesterol 44 H, HDL Cholest joselito 43, Cholesterol/HDL Ratio 5.10, TSH 3.260 01/27/25 06:39: POC Glucose 152 H Imaging Radiology Impression Brain CT 01/26/25 12:27 IMPRESSION: 1. No evidence of intracranial hemorrhage or acute ischemia. 2. Changes of chronic microvascular ischemia and volume loss. Reading Location: [id number] Head/Neck CTA 01/26/25 12:27 IMPRESSION: Minimal plaque formation at the origin of the right and left internal carotid arteries causing minimal narrowing. Reading Location: [id number] Active Medications Active Medications Active Medications: Current Medications Generic Name Dose Route Start Last Admin Trade Name Freq PRN Reason Stop Dose Admin Acetaminophen 650 mg 01/26/25 18:30 Acetaminophen 325 Mg Tablet PO Q6H PRN PRN Pain 1-10 Or Fever >100.7 Albuterol Sulfate 2.5 mg 01/26/25 16:52 Albuterol 2.5 Mg/3 Ml Vial.Neb. INHALATION Q2H PRN PRN SOB &/OR WHEEZING Amlodipine Besylate 10 mg 01/27/25 10:00 01/27/25 09:06 Amlodipine 10 Mg Tablet PO Not Given DAILY REPLACED BY [facility] Protocol Aspirin 81 mg 01/27/25 08:00 01/27/25 08:54 Aspirin 81 Mg Tab.Chew PO 81 mg BREAKFAST ABDULLAHI Administration Carvedilol 12.5 mg 01/26/25 22:00 01/27/25 09:06 Carvedilol 12.5 Mg Tablet PO Not Given BID ABDULLAHI Furosemide 20 mg 01/26/25 16:52 01/26/25 18:26 Furosemide 20 Mg Tablet PO Not Given DAILY ABDULLAHI Protocol Gabapentin 600 mg 01/27/25 10:00 01/27/25 08:54 Gabapentin 600 Mg Tablet PO 600 mg DAILY ABDULLAHI Administration Gabapentin 800 mg 01/26/25 22:00 01/26/25 20:43 Gabapentin 800 Mg Tablet PO 800 mg QHS ABDULLAHI Administration Glucagon 1 mg 01/26/25 16:52 Glucagon 1 Mg/Ml Syringe IM X1 PRN HYPOGLYCEMIA Protocol Hydralazine HCl 5 mg 01/26/25 16:52 Hydralazine 20 Mg/Ml Vial IV 01/27/25 16:52 Q30M PRN maintain BP parameters with HR <60 Dextrose 250 mls @ 0 mls/hr 01/26/25 16:52 Dextrose 10%-Water IV .Q0M PRN HYPOGLYCEMIA Protocol As Directed Sodium Chloride 250 mls @ 15 mls/hr 01/26/25 18:14 IV .[id number] PRN Saline Flush Sodium Chloride 250 mls @ 15 mls/hr 01/26/25 18:14 IV .[id number] PRN Additional IVPB Infusion Insulin Glargine 7 unit 01/26/25 16:52 01/26/25 18:25 Insulin Glargine-Yfgn 100 Unit/Ml Pen SC Not Given Q24H REPLACED BY [facility] Insulin Human Lispro 0 unit 01/26/25 16:52 01/27/25 06:42 Insulin Lispro 100 Unit/Ml Insuln.Pen SC 1 u ACHS REPLACED BY [facility] Administration Protocol Labetalol HCl 10 - 20 mg 01/26/25 16:52 Labetalol 20 Mg/4 Ml Vial IV 01/27/25 16:52 Q10M PRN PRN maintain BP parameters with HR >/=60 Lorazepam 0.5 mg 01/26/25 16:52 01/27/25 09:42 Lorazepam 0.5 Mg Tablet PO 0.5 mg X1 PRN Administration Anxiety with MRI Melatonin 10 mg 01/26/25 16:52 Melatonin 3 Mg Tablet PO QHS PRN PRN INSOMNIA Ondansetron HCl 4 mg 01/26/25 16:52 Ondansetron 4 Mg/2 Ml Vial IV Q8H PRN PRN NAUSEA/VOMITING Oxycodone HCl 2.5 mg 01/26/25 16:52 Oxycodone 5 Mg Tablet PO Q4H PRN PRN Pain Score 4-10 Polyethylene Glycol 17 gm 01/26/25 22:00 Polyethylene Glycol 3350 17 Gm Packet PO BID PRN Constipation Sacubitril/Valsartan 1 each 01/26/25 22:00 01/27/25 09:06 Sacubitril/Valsartan 97-103 Mg Tablet PO Not Given BID ABDULLAHI Sodium Chloride 10 - 40 ml 01/26/25 18:14 01/27/25 09:35 0.9% Saline Lock 10 Ml Syringe IV 10 ml UD PRN Administration SALINE FLUSH NIHSS NIHSS Nursing Documentation NIHSS Nursing Documentation: NIHSS: Ischemic Stroke/TIA Start: 01/26/25 16:52 Text: For PCU Patients: NIH and Neuro Check every 4 Status: Active hours, PRN and with change in RN caregiver. Freq: [id number] Protocol: Activity Type Activity Date Activity User E-sign Co-sign Detail Recorded Client Recorded Date Recorded By Document 01/27/25 08:40 [id number] 01/27/25 08:47 01/27/25 08:40 NIH Stroke Scale [NIHSS] A score of 0 is normal or asymptomatic . Total possible score is 42. Inpatient: RN or Physician to activate a stroke alert for onset of new stroke symptoms or with NIHSS increase >/= 3 points. Following change in neurological status, NIHSS will be performed per physician order or more frequently PRN. -1a. Level of Consciousness 0 - Alert; keenly responsive -1b. LOC Questions 0 - Answers BOTH questions correctly -1c. LOC Commands 0 - Performs BOTH tasks correctly -2. Best Gaze 0 - Normal -3. Visual 0 - No visual loss -4. Facial Palsy 0 - Normal symmetrical movements -5a. Left Arm 0 - No drift; arm holds 90 ( or 45) degrees for full 10 seconds -5b. Right Arm 0 - No drift; arm holds 90 ( or 45) degrees for full 10 seconds -6a. Left Leg 0 - No drift; leg holds 30- degree position for full 5 seconds -6b. Right Leg 0 - No drift; leg holds 30- degree position for full 5 seconds -7. Limb Ataxia 0 - Absent -8. Sensory 0 - Normal; no sensory loss -9. Best Language 0 - No aphasia; normal -10. Dysarthria 0 - Normal -11. Extinction and Inattention 0 - No abnormality -Total 0 Query Text:A score of 0 is normal or asymptomatic. Total possible score is 42 . ED: Notify Physician for NIHSS increase by > / = 3 points. Inpatient: RN or Physician to activate a stroke alert for NIHSS increase of > / = 3 points. Coma Scale [Assess] -Eye Opening Spontaneous -Motor Obeys Commands -Verbal Oriented [Total] -Coma Scale Total 15 01/27/25 1139 Cosigner Signature (if applicable): CC: ARIA Toth~ Signed [facility]08-18-2025 Discharge summary Author Cornelia Murillo [facility] Note Date/Time January 26, 2025 3: 50pm [facility] Medical Records Department [address] [place] [address] Emergency Department Summary 01/26/25 MR#: [id number] Acct: [id number] Name: THIAGO PIERRE Rep #:[id number] : 1955 69 From: Cornelia Murillo MD PCP: ARIA Long, [place] Statu s:ADM DENIS Location: [address] History of Present Illness Chief Complaint: Headache Narrative Narrative: Patient is a 69-year-old female presenting to the emergency department for a headache., Right sided visual changes and concern for stroke. Patient has a past medical history as below. Patient states that yesterday around 1 PM she went to take a nap and when she woke up she did not know who she was, who her family members were in the house or where she was for about 5 minutes. She states for about the past week she has had right sided visual changes where it looks like she is looking through a screen. She reports that for the past few days she has had wavy lines in her right vision as well. 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 She denies any speech difficulty, numbness or weakness in her arms or legs or trouble ambulating. She states that she wentto the eye doctor today and they diagnosed her with a posterior posterior detachment and vitreous hemorrhage in the right eye. Patient states she did nottake anything for headache today. She states although it has been ongoing for the past 2 or 3 days it will go for short periods of time and then come back gradually. [facility] Medical History Essential hypertension Elevated troponin History of diabetes mellitus Hx of cardiomyopathy Dysarthria Medication reaction Intractable nausea and vomiting Dizziness Depression Near syncope Vertigo Carotid artery disease Pure hypercholesterolemia Atherosclerotic heart disease of nikolai coronary artery without angina pectoris Nonrheumatic mitral (valve) insufficiency Dilated cardiomyopathy Chronic systolic (congestive) heart failure BALWINDER (acute kidney injury) Abnormal electrocardiogram Systolic CHF, acute Hypertension Hyperlipidemia Diabetes mellitus, type II NICOLLE (obstructive sleep apnea) Home Medications ?Medication ?Instructions ?Recorded ?Last Taken ?Type aspirin 81 mg tablet,delayed 81 mg PO DAILY@0800 HEALT H 01/26/17 01/25/25 History release MAINTENANCE magnesium chloride 71.5 mg 71.5 mg PO DAILY suppliment 07/23/20 01/26/25 History (magnesium chloride) tablet,delayed release (Slow-Mag) Handicap Parking Placard #1 ea 05/09/22 Unknown Rx sacubitril 97 mg-valsartan 103 mg 1 tab PO BID HF #180 tabs 11/04/24 01/26/25 Rx tablet (Entresto) furosemide 20 mg tablet 20 mg PO QDAY water pill #90 tabs 11/17/24 01/26/25 Rx amlodipine 10 mg tablet 10 mg PO DAILY 11/30/2401/09 History carvedilol 25 mg tablet 25 mg PO DAILY 11/30/2401/09 History cholecalciferol (vitamin D3) 1,250 1,250 mcg PO QWEEK 11/30/24 01/18/25 History mcg (50,000 unit) capsule insulin degludec 100 unit/mL (3 7 unit subcut Q24H amara betes 11/30/24 11/30/24 History mL) subcutaneous pen (Tresiba FlexTouch U-100 insulin) tirzepatide 5 mg/0.5 mL 5 mg (0.5 mL) subcut QWEEK # 2 mL 12/29/24 01/21/25 Rx subcutaneous pen injector (Abdirashid) dapagliflozin propanediol 10 mg 10 mg PO DAILY 5 01/26/25 History tablet (Farxiga) gabapentin 600 mg tablet 600 mg PO DAILY 01/26/25 History gabapentin 800 mg tablet 800 mg PO QHS 01/26/2501/25 History insulin lispro 100 unit/mL 10 unit subcut TID 01/26/25 01/26/25 History subcutaneous pen (Humalog KwikPen (U-100) Insulin) Allergy/AdvReac Type Severity Reaction Status Date / Time red dye Allergy Hives Verified 01/26/25 11:33 Iptkmiw-CLL-KmI Reductase AdvReac Severe Myalgias Verified 01/26/25 11:33 Inhibitor (Ywxarbx-Ysh-Uvo Reductase Inhibitor) Family History Father , Lung [...] safe at home: Yes ROS ROS ED ROS Narrative see HPI EXAM Physical Exam Narrative Exam Narrative: Vital signs: Reviewed General: Alert and orientedx3. No acute distress HEENT: Head is normocephalic and atraumatic, sinuses nontender, right pupil round and reactive. Left pupil nonreactive. Nares are patent. Oropharynx and throat exams normal. Neck: Supple without lymphadenopathy nontender Cardiovascular: Regular rate and rhythm, no murmurs. No rubs or gallops. Normal S1 and S2 Respiratory: Clear to auscultation bilaterally. No wheezes, rales, rhonchi Abdominal: Soft and nontender. Normal bowel sounds. No guarding or rebound. Nonsurgical abdomen Extremities: No tenderness. No bruising. Normal range of motion. Normal sensation. Skin: No rash or redness. Neurological: Cranial nerves II through XII are grossly intact. Normal strengthand sensation. Normal cerebellar function The rest of the physical exam is unremarkable Const Vital Signs: 01/26/25 11:33 01/26/25 13:28 01/26/25 14:00 Temperature 98.0 F Temperature Source Oral Pulse Rate 124 H 60 61 Respiratory Rate 16 14 16 Blood Pressure 117/80 110/64 139/73 H Blood Pressure Mean 92 79 95 Pulse Ox 95 93 95 Oxygen Delivery Method Room Air MDM MDM MDM Narrative Medical decision making narrative: Patient is a 69-year-old female presenting to the emergency department for concern of a stroke. Patient was seen and examined. Vitals are stable. Patient resting bed comfortably no acute distress. Differential includes but is not limited to: Stroke, transient global amnesia, TIA, electrolyte derangement, ocular migraine, less likely SAH was not sudden onset, comes and goes, not the worst headache she has had Complete visual exam was done at the [facility] prior to arrival and I havethe physicians documentation that shows the findings and impression of a posterior vitreous detachment and vitreous hemorrhage. For this reason, I will not complete another exam here. CT brain and CTA head and neck were ordered. Patient given fluids and Tylenol for her headache. CBC with no leukocytosis lynette normal hemoglobin. BMP with slight elevation in BUN at 25, otherwise no significant abnormalities. CT brain shows no evidence of intracranial hemorrhage or acute ischemia. Changes of chronic microvascular ischemia and volume loss. CTA shows minimal plaque formation at the origin of the right and left internal carotid arteries causing minimal narrowing. Patient was reevaluated. Headache is improved after fluids and Tylenol alone. Patient and updated on the CT findings. Explained to them that I cannot completely rule out a TIA that occurred yesterday however it does sound like a transient global amnesia event. They state they would feel much more comfortable having an MRI done and being admitted. Patient mated to hospitalist for further management. Clinical impression: headache vision changes History & Record Review Discussion w/independent historian: Patient and Significant other Lab Data Attestation: I reviewed the patient's lab results. Labs: Laboratory Results - last 24 hr 01/26/25 12:22 WBC 6.0 RBC 4.57 Hgb 13.2 Hct 40.8 MCV 89.3 MCH 28.9 MCHC 32.4 RDW Std Deviation 42.8 RDW Coeff of Ivet 13.2 Plt Count 278 MPV 9.5 Immature Gran % (Auto) 0.500 Neut % (Auto) 47.9 Lymph % (Auto) 39.4 [place] % (Auto) 9.0 Eos % (Auto) 2.7 Baso % (Auto) 0.5 Absolute Neuts (auto) 2.9 Absolute Lymphs (auto) 2.36 Nucleated RBC % 0 PT 14.0 INR 1.1 Sodium 139 Potassium 4.2 Chloride 105 Carbon Dioxide 22.0 Anion Gap 12 BUN 25 H Creatinine 1.09 Estim Creat Clear Calc 59.78 Est GFR (MDRD) Non-Af 54 L BUN/Creatinine Ratio 22.8 H Glucose 139 H Calcium 9.4 Troponin T High Sens 15 H D Radiography Diagnostic Testing: Clinical Impression(s) from Imaging Studies Brain CT 01/26/25 12:27 IMPRESSION: 1. No evidence of intracranial hemorrhage or acute ischemia. 2. Changes of chronic microvascular ischemia and volume loss. Reading Location: [id number] Head/Neck CTA 01/26/25 12:27 IMPRESSION: Minimal plaque formation at the origin of the right and left internal carotid arteries causing minimal narrowing. Reading Location: [id number] Discharge Plan Disposition Disposition: Acute Care Hospital [facility] Discharge Date/Time: 01/26/25 15:46 NIHSS NIHSS 1a. Level of Consciousness: 0 - Alert; keenly responsive 1b. LOC Questions: 0 - Answers BOTH questions correctly 1c. LOC Commands: 0 - Performs BOTH tasks correctly 2. Best Gaze: 0 - Normal 3. Visual: 0 - No visual loss 4. Facial Palsy: 0 - Normal symmetrical movements 5a. Left Arm: 0 - No drift; arm holds 90 (or 45) degrees for full 10 seconds 5b. Right Arm: 0 - No drift; arm holds 90 (or 45) degrees for full 10 seconds 6a. Left Le - No drift; leg holds 30-degree position for full 5 seconds 6b. Right Le - No drift; leg holds 30-degree position for full 5 seconds 7. Limb Ataxia: 0 - Absent 8. Sensory: 0 - Normal; no sensory loss 9. Best Language: 0 - No aphasia; normal 10. Dysarthria: 0 - Normal 11. Extinction and Inattention: 0 - No abnormality Total: 0 What to do if you have Problems For any increased pain, shortness of breath, bleeding, nausea or vomiting, chestpain, or any unexpected problems, contact your Primary Care Provider. Call [facility] ([phone]) or report to the closest Emergency Room. Call 911 if necessary. 01/26/25 1550 <Electronically signed by Cornelia Murillo MD> Cosigner Signature (if applicable): CC: ARIA H[employer] RESOURCES MANAGER [employer]UFA[employer]URING-C Sarah Toth ~ Signed [facility] Work Phone: 1(377) 537-380208-18-2025 History and physical note Author Dahiana Oakley [facility] Note Date/Time January 26, 2025 3: 32pm [facility] Medical Records Department [address] [place] [address] H&P Exam - Hospitalist 01/26/25 1507 MR#: [id number] Acct: [id number] Name: THIAGO PIERRE Rep #:[id number] : 1955 69 From: Dahiana Oakley MD PCP: ARIA Long, HUMAN RESOURCES MANAGER MANUFACTURING-Chele Statu s:ADM DENIS Location: [place] [address] HPI - General General Date of Admission: 01/26/25 Date of Service: 01/26/25 Chief Complaint: Transient episode of confusion HPI Narrative THIAGO PIERRE, is a 69-year-old female history of nonobstructive CAD, BiV ICD in 2016, diabetes, NICOLLE, hypertension, depression, GERD, heart failure with recovered EF presented to [facility] ED 01/26/2025 due to transient episode of confusion. In the ED temp 98, heart rate initially 124 andcame down to 60, blood pressure 117/88, respiratory rate 16 and pulse ox 95% on room air. BMP with a glucose of 139, BUN of 25 and creatinine 1.09. CBC unremarkable, INR 1.1. CT of the head with no acute process, CTA head and neck no LVO. Hospitalist contacted for admission for TIA rule out. Reportedly patient had a headache yesterday and took a nap, when she woke up she was confused for 5 minutes and did not know where she was or who her family members were, this completely resolved after 5 minutes. She also notes that she has hada screen like feeling over her right eye for several weeks but yesterday she developed dark lines and spots in her vision, today she went to the gl accountant and was told she has retinopathy and had some bleeding behind the eye and was referred to a specialist who she will follow-up with on Sunday but they recommended patient come to the ED to rule out a stroke giventhe episode of confusion yesterday. Patient said she still has a headache in its frontal and bilateral and it slightly improved with the Tylenol. Reports she still has some dots in her vision and still feels a little bit like the screen is pulled over it but feels her vision is slowly clearing. She reports she has some chronic right lower extremity neuropathy that has been a little bitworse recently but no acute numbness or tingling, no other acute ROS complaints aside from the above. Notes that she does have sleep apnea but has not used herNIPPV for several years, mental status seems back to baseline and patient not somnolent or with decreased level of consciousness. [facility] Medical History Essential hypertension Elevated troponin History of diabetes mellitus Hx of cardiomyopathy Dysarthria Medication reaction Intractable nausea and vomiting Dizziness Depression Near syncope Vertigo Carotid artery disease Pure hypercholesterolemia Atherosclerotic heart disease of nikolai coronary artery without angina pectoris Nonrheumatic mitral (valve) insufficiency Dilated cardiomyopathy Chronic systolic (congestive) heart failure BALWINDER (acute kidney injury) Abnormal electrocardiogram Systolic CHF, acute Hypertension Hyperlipidemia Diabetes mellitus, type II NICOLLE (obstructive sleep apnea) Home Medications ?Medication ?Instructions ?Recorded ?Last Taken ?Type aspirin 81 mg tablet,delayed 81 mg PO DAILY@0800 HEALT H 01/26/17 01/25/25 History release MAINTENANCE magnesium chloride 71.5 mg 71.5 mg PO DAILY suppliment 07/23/20 01/26/25 History (magnesium chloride) tablet,delayed release (Slow-Mag) Handicap Parking Placard #1 ea 05/09/22 Unknown Rx sacubitril 97 mg-valsartan 103 mg 1 tab PO BID HF #180 tabs 11/04/24 01/26/25 Rx tablet (Entresto) furosemide 20 mg tablet 20 mg PO QDAY water pill #90 tabs 11/17/24 01/26/25 Rx amlodipine 10 mg tablet 10 mg PO DAILY 11/30/2401/09 History carvedilol 25 mg tablet 25 mg PO DAILY 11/30/2401/09 History cholecalciferol (vitamin D3) 1,250 1,250 mcg PO QWEEK 11/30/24 01/18/25 History mcg (50,000 unit) capsule insulin degludec 100 unit/mL (3 7 unit subcut Q24H amara betes 11/30/24 11/30/24 History mL) subcutaneous pen (Tresiba FlexTouch U-100 insulin) tirzepatide 5 mg/0.5 mL 5 mg (0.5 mL) subcut QWEEK # 2 mL 12/29/24 01/21/25 Rx subcutaneous pen injector (Abdirashid) dapagliflozin propanediol 10 mg 10 mg PO DAILY 5 01/26/25 History tablet (Farxiga) gabapentin 600 mg tablet 600 mg PO DAILY 01/26/25 History gabapentin 800 mg tablet 800 mg PO QHS 01/26/2501/25 History insulin lispro 100 unit/mL 10 unit subcut TID 01/26/25 01/26/25 History subcutaneous pen (Humalog KwikPen (U-100) Insulin) Allergy/AdvReac Type Severity Reaction Status Date / Time red dye Allergy Hives Verified 01/26/25 11:33 Wzzxyns-QRJ-YdY Reductase AdvReac Severe Myalgias Verified 01/26/25 11:33 Inhibitor (Czwrpza-Anj-Exd Reductase Inhibitor) Family History Father , Lung [...] feel safe at home: Yes ROS ROS Narrative General: Denies fever/chills HENT: Has frontal headache, little bit better today but has been present since yesterday, denies stuffy nose, denies sore throat EYES: Has some black dots in her right vision but it slowly clearing resp: Denies cough, denies shortness of breath Cardiac: Denies chest pain GI: Denies abdominal pain, denies changes in bowel, some chronic constipation, denies nausea/vomiting : Denies changes in urination Extremity: Denies new swelling MSK: Denies new or focal weakness Neuro: Denies any new numbness/tingling, some chronic neuropathy in right lower extremity Heme: Denies any bleeding or bruising Skin: Denies rashes Psychiatric: No complaints voiced Vital Signs Vital Signs Vital Signs: 01/26/25 11:33 01/26/25 13:28 01/26/25 14:00 Temperature 98.0 F Temperature Source Oral Pulse Rate 124 H 60 61 Respiratory Rate 16 14 16 Blood Pressure 117/80 110/64 139/73 H Blood Pressure Mean 92 79 95 Pulse Ox 95 93 95 Oxygen Delivery Method Room Air Weight Weight: 117.934 kg Body Mass Index (BMI) 44.6 Physical Exam Narrative General: Alert, oriented, no apparent distress HEENT: Atraumatic, normocephalic Eyes: Anicteric, normal conjunctiva, extraocular movements intact, right pupil larger than left pupil Neck: Supple Respiratory: Clear to auscultation bilaterally, normal respiratory effort Cardiovascular: Regular rate and rhythm GI: Soft, nontender, nondistended Extremities: No edema Musculoskeletal: Strength 5 out of 5 in right upper extremity, 5 out of 5 left upper extremity, 5 out of 5 right lower extremity, 5 out of 5 left lower extremity Neuro: Query very slight flattening of right nasolabial fold, otherwise no overtfocal neurological deficits, cranial nerves II through XII intact, [id number] without significant difficulty bilaterally Skin: No rashes appreciated Psych: Cooperative Results Lab / Micro Data 01/26/25 12:22 01/26/25 12:22 Labs: Laboratory Results - last 24 hr 01/26/25 12:22: WBC 6.0, RBC 4.57, Hgb 13.2, Hct 40.8, MCV 89.3, MCH 28.9, MCHC 32.4, RDW Std Deviation 42.8, RDW Coeff of Ivet 13.2, Plt Count 278, MPV 9.5, Immature Gran % (Auto) 0.500, Neut % (Auto) 47.9, Lymph % (Auto) 39.4, [place] % (Auto) 9.0, Eos % (Auto) 2.7, Baso % (Auto) 0.5, Absolute Neuts (auto) 2.9, Absolute Lymphs (auto) 2.36, Nucleated RBC % 0, PT 14.0, INR 1.1, Sodium 139, Potassium 4.2, Chloride 105, Carbon Dioxide 22.0, Anion Gap 12, BUN 25 H, Creatinine 1.09, Estim Creat Clear Calc 59.78, Est GFR (MDRD) Non-Af 54 L, BUN/Creatinine Ratio 22.8 H, Glucose 139 H, Calcium 9.4 Imaging Radiology Impression Brain CT 01/26/25 12:27 IMPRESSION: 1. No evidence of intracranial hemorrhage or acute ischemia. 2. Changes of chronic microvascular ischemia and volume loss. Reading Location: [id number] Head/Neck CTA 01/26/25 12:27 IMPRESSION: Minimal plaque formation at the origin of the right and left internal carotid arteries causing minimal narrowing. Reading Location: [id number] Assessment & Plan Assessment/Plan (1) Confusion: PLAN: Plan # Transient episode of confusion -Admit to tele -CT head w/ no acute process -CTA head and neck no LVO -MRI ordered, patient had an MRI in 2023 and that was after her ICD was placed, presume we can proceed with MRI here -NIH q4hr -asa, not on statin due to history of adverse reaction with myalgias -Patient just had echocardiogram done earlier this month, will not repeat -PT/OT/Speech eval -Teleneuro consult ordered -Symptoms were about 24 hours ago given patient's ophthalmologic problems feel it is reasonable to manage blood pressure and not allow permissive hypertension again we are 24 hours out at this point # 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 - Patient seen by Optho today was diagnosed with this, patient reports vision isclearing -She reports no acute management was recommended but she is to see a specialist on Sunday in 2 days #Chronic heart failure with recovered ejection fraction with ICD -Daily weights -I's and O's -Heart healthy diet -Fluid restriction -Continue patients home medications #Type 2 diabetes mellitus -Glucose checks and sliding scale insulin #Depression/anxiety -Continue home medications #NICOLLE - Patient noncompliant with NIPPV for several years #GERD -Continue PPI #Hypertension - Continue medications #DVT ppx: SCDs Dahiana Oakley MD Charges/Coding Visit Charges Inpatient E&M: 43856 Init Hosp L2 01/26/25 1532 <Electronically signed by Dahiana Oakley MD> Cosigner Signature (if applicable): CC: ARIA H[employer]AN RESOURCES MANAGER MANUFACTURING-C Sarah Toth; Dr. Dahiana Oakley MD~ Signed [facility] Work Phone: 1(196) 339-840408-18-2025 Discharge summary [facility] Medical Records Department [address] [place] [address] Emergency Department Summary 01/26/25 MR#: [id number] Acct: [id number] Name: THIAGO PIERRE Rep #:[id number] : 1955 69 From: Cornelia Murillo MD PCP: ARIA Long, HUMAN RESOURCES MANAGER MANUFACTURING-C Statu s:ADM DENIS Location: [address] History of Present Illness Chief Complaint: Headache Narrative Narrative: Patient is a 69-year-old female presenting to the emergency department for a headache., Right sidedvisual changes and concern for stroke. Patient has a past medical history as below. Patient states that yesterday around 1 PM she went to take a nap and when she woke up she did not know who she was,who her family members were in the house or where she was for about 5 minutes. She states for aboutthe past week she has had right sided visual changes where it looks like she is looking through a screen. She reports that for the past few days she has had wavy lines in her right vision as well. 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 She denies any speech difficulty, numbness or weakness in her arms or legs or trouble ambulating. She states that she wentto the eye doctor today andthey diagnosed her with a posterior posterior detachment and vitreous hemorrhage in the right eye. Patient states she did nottake anything for headache today. She states although it has been ongoing for the past 2 or 3 days it will go for short periods of time and then come back gradually. [facility] Medical History Essential hypertension Elevated troponin History of diabetes mellitus Hx of cardiomyopathy Dysarthria Medication reaction Intractable nausea and vomiting Dizziness Depression Near syncope Vertigo Carotid artery disease Pure hypercholesterolemia Atherosclerotic heart disease of nikolai coronary artery without angina pectoris Nonrheumatic mitral (valve) insufficiency Dilated cardiomyopathy Chronic systolic (congestive) heart failure BALWINDER (acute kidney injury) Abnormal electrocardiogram Systolic CHF, acute Hypertension Hyperlipidemia Diabetes mellitus, type II NICOLLE (obstructive sleep apnea) Home Medications ?Medication ?Instructions ?Recorded ?Last Taken ?Type aspirin 81 mg tablet,delayed 81 mg PO DAILY@0800 HEALT H 01/26/17 01/25/25 History release MAINTENANCE magnesium chloride 71.5 mg 71.5 mg PO DAILY suppliment 07/23/20 01/26/25 History (magnesium chloride) tablet,delayed release (Slow-Mag) Handicap Parking Placard #1 ea 05/09/22 Unknown Rx sacubitril 97 mg-valsartan 103 mg 1 tab PO BID HF #180 tabs 11/04/24 01/26/25 Rx tablet (Entresto) furosemide 20 mg tablet 20 mg PO QDAY water pill #90 tabs 11/17/24 01/26/25 Rx amlodipine 10 mg tablet 10 mg PO DAILY 11/30/2401/09 History carvedilol 25 mg tablet 25 mg PO DAILY 11/30/2401/09 History cholecalciferol (vitamin D3) 1,250 1,250 mcg PO QWEEK 11/30/24 01/18/25 History mcg (50,000 unit) capsule insulin degludec 100 unit/mL (3 7 unit subcut Q24H amara betes 11/30/24 11/30/24 History mL) subcutaneous pen (Tresiba FlexTouch U-100 insulin) tirzepatide 5 mg/0.5 mL 5 mg (0.5 mL) subcut QWEEK # 2 mL 12/29/24 01/21/25 Rx subcutaneous pen injector (Abdirashid) dapagliflozin propanediol 10 mg 10 mg PO DAILY 5 01/26/25 History tablet (Farxiga) gabapentin 600 mg tablet 600 mg PO DAILY 01/26/25 History gabapentin 800 mg tablet 800 mg PO QHS 01/26/2501/25 History insulin lispro 100 unit/mL 10 unit subcut TID 01/26/25 01/26/25 History subcutaneous pen (Humalog KwikPen (U-100) Insulin) Allergy/AdvReac Type Severity Reaction Status Date / Time red dye Allergy Hives Verified 01/26/25 11:33 Iqctkot-RCB-IxM Reductase AdvReac Severe Myalgias Verified 01/26/25 11:33 Inhibitor (Resdttw-Zkn-Tkk Reductase Inhibitor) Family History Father , Lung [...] safe at home: Yes ROS ROS ED ROS Narrative see HPI EXAM Physical Exam Narrative Exam Narrative: Vital signs: Reviewed General: Alert and orientedx3. No acute distress HEENT: Head is normocephalic and atraumatic, sinuses nontender, right pupil round and reactive. Left pupil nonreactive. Nares are patent. Oropharynx and throat exams normal. Neck: Supple without lymphadenopathy nontender Cardiovascular: Regular rate and rhythm, no murmurs. No rubs or gallops. Normal S1 and S2 Respiratory: Clear to auscultation bilaterally. No wheezes, rales, rhonchi Abdominal: Soft and nontender. Normal bowel sounds. No guarding or rebound. Nonsurgical abdomen Extremities: No tenderness. No bruising. Normal range of motion. Normal sensation. Skin: No rash or redness. Neurological: Cranial nerves II through XII are grossly intact. Normal strengthand sensation. Normal cerebellar function The rest of the physical exam is unremarkable Const Vital Signs: 01/26/25 11:33 01/26/25 13:28 01/26/25 14:00 Temperature 98.0 F Temperature Source Oral Pulse Rate 124 H 60 61 Respiratory Rate 16 14 16 Blood Pressure 117/80 110/64 139/73 H Blood Pressure Mean 92 79 95 Pulse Ox 95 93 95 Oxygen Delivery Method Room Air MDM MDM MDM Narrative Medical decision making narrative: Patient is a 69-year-old female presenting to the emergency department for concern of a stroke. Patient was seen and examined. Vitals are stable. Patient resting bed comfortably no acute distress. Differential includes but is not limited to: Stroke, transient global amnesia, TIA, electrolyte derangement, ocular migraine, less likely SAH was not sudden onset, comes and goes, not the worst headache she has had Complete visual exam was done at the gl accountant prior to arrival and I havethe physicians documentation that shows the findings and impression of a posterior vitreous detachment and vitreous hemorrhage. For this reason, I will not complete another exam here. CT brain and CTA head and neck wereordered. Patient given fluids and Tylenol for her headache. CBC with no leukocytosis lynette normal hemoglobin. BMP with slight elevation in BUN at 25, otherwise no significant abnormalities. CT brain shows no evidence of intracranial hemorrhage or acute ischemia. Changes of chronic microvascular ischemia and volume loss. CTA shows minimal plaque formation at the origin of the right and left internal carotid arteries causing minimal narrowing. Patient was reevaluated. Headache is improved after fluids and Tylenol alone. Patient and updated on the CT findings. Explained to them that I cannot completely rule out a TIA that occurred yesterday however it does sound like a transient global amnesia event. They state they would feel much more comfortable having an MRI done and being admitted. Patient mated to hospitalist for further management. Clinical impression: headache vision changes History & Record Review Discussion w/independent historian: Patient and Significant other Lab Data Attestation: I reviewed the patient's lab results. Labs: Laboratory Results - last 24 hr 01/26/25 12:22 WBC 6.0 RBC 4.57 Hgb 13.2 Hct 40.8 MCV 89.3 MCH 28.9 MCHC 32.4 RDW Std Deviation 42.8 RDW Coeff of Ivet 13.2 Plt Count 278 MPV 9.5 Immature Gran % (Auto) 0.500 Neut % (Auto) 47.9 Lymph % (Auto) 39.4 [place] % (Auto) 9.0 Eos % (Auto) 2.7 Baso % (Auto) 0.5 Absolute Neuts (auto) 2.9 Absolute Lymphs (auto) 2.36 Nucleated RBC % 0 PT 14.0 INR 1.1 Sodium 139 Potassium 4.2 Chloride 105 Carbon Dioxide 22.0 Anion Gap 12 BUN 25 H Creatinine 1.09 Estim Creat Clear Calc 59.78 Est GFR (MDRD) Non-Af 54 L BUN/Creatinine Ratio 22.8 H Glucose 139 H Calcium 9.4 Troponin T High Sens 15 H D Radiography Diagnostic Testing: Clinical Impression(s) from Imaging Studies Brain CT 01/26/25 12:27 IMPRESSION: 1. No evidence of intracranial hemorrhage or acute ischemia. 2. Changes of chronic microvascular ischemia and volume loss. Reading Location: [id number] Head/Neck CTA 01/26/25 12:27 IMPRESSION: Minimal plaque formation at the origin of the right and left internal carotid arteries causing minimal narrowing. Reading Location: [id number] Discharge Plan Disposition Disposition: Acute Care Hospital [facility] Discharge Date/Time: 01/26/25 15:46 NIHSS NIHSS 1a. Level of Consciousness: 0 - Alert; keenly responsive 1b. LOC Questions: 0 - Answers BOTH questions correctly 1c. LOC Commands: 0 - Performs BOTH tasks correctly 2. Best Gaze: 0 - Normal 3. Visual: 0 - No visual loss 4. Facial Palsy: 0 - Normal symmetrical movements 5a. Left Arm: 0 - No drift; arm holds 90 (or 45) degrees for full 10 seconds 5b. Right Arm: 0 - No drift; arm holds 90 (or 45) degrees for full 10 seconds 6a. Left Le - No drift; leg holds 30-degree position for full 5 seconds 6b. Right Le - No drift; leg holds 30-degree position for full 5 seconds 7. Limb Ataxia: 0 - Absent 8. Sensory: 0 - Normal; no sensory loss 9. Best Language: 0 - No aphasia; normal 10. Dysarthria: 0 - Normal 11. Extinction and Inattention: 0 - No abnormality Total: 0 What to do if you have Problems For any increased pain, shortness of breath, bleeding, nausea or vomiting, chestpain, or any unexpected problems, contact your Primary Care Provider. Call [facility] ([phone]) or report tothe closest Emergency Room. Call 911 if necessary. 01/26/25 1550 Cosigner Signature (if applicable): CC: ARIA H[employer] RESOURCES MANAGER MANUFACTURING-C Sarah Toth ~ Signed [facility]08-18-2025 History and physical note [facility] Medical Records Department [address] [place] [address] H&P Exam - Hospitalist 01/26/25 1507 MR#: [id number] Acct: [id number] Name: THIAGO PIERRE Rep #:[id number] : 1955 69 From: Dahiana Oakley MD PCP: ARIA Long, HUMAN RESOURCES MANAGER MANUFACTURINGEphraim Statu s:ADM DENIS Location: [place] [address] HPI - General General Date of Admission: 01/26/25 Date of Service: 01/26/25 Chief Complaint: Transient episode of confusion HPI Narrative THIAGO PIERRE, is a 69-year-old female history of nonobstructive CAD, BiV ICD in 2016, diabetes, NICOLLE, hypertension, depression, GERD, heart failure with recovered EF presented to [facility] ED 01/26/2025 due to transient episode of confusion. In the ED temp 98, heart rate initially 124 andcame down to 60, blood pressure 117/88, respiratory rate 16 and pulse ox 95% on room air. BMP with a glucose of 139, BUN of 25 and creatinine 1.09. CBC unremarkable, INR 1.1. CT of the head with no acute process, CTA head and neck no LVO. Hospitalist contacted for admission for TIA rule out. Reportedly patient had a headache yesterday and took a nap, when she woke up she was confused for 5 minutes and did not know where she was or who her family members were, this completely resolved after 5 minutes. She also notes that she has hada screen like feeling over her right eye for several weeksbut yesterday she developed dark lines and spots in her vision, today she went to the gl accountant and was told she has retinopathy and had some bleeding behind the eye and was referred to a specialist who she will follow-up with on Sunday but they recommended patient come to the ED to rule out a stroke giventhe episode of confusion yesterday. Patient said she still has a headache in its frontal and bilateral and it slightly improved with the Tylenol. Reports she still has some dots in her vision and still feels a little bit like the screen is pulled over it but feels her vision is slowly clearing. She reports she has some chronic right lower extremity neuropathy that has been a little bitworse recently but no acute numbness or tingling, no other acute ROS complaints aside from the above. Notes that she does have sleep apnea but has not used herNIPPV for several years, mental status seems back to baseline and patient not somnolent or with decreased level of consciousness. [facility] Medical History Essential hypertension Elevated troponin History of diabetes mellitus Hx of cardiomyopathy Dysarthria Medication reaction Intractable nausea and vomiting Dizziness Depression Near syncope Vertigo Carotid artery disease Pure hypercholesterolemia Atherosclerotic heart disease of nikolai coronary artery without angina pectoris Nonrheumatic mitral (valve) insufficiency Dilated cardiomyopathy Chronic systolic (congestive) heart failure BALWINDER (acute kidney injury) Abnormal electrocardiogram Systolic CHF, acute Hypertension Hyperlipidemia Diabetes mellitus, type II NICOLLE (obstructive sleep apnea) Home Medications ?Medication ?Instructions ?Recorded ?Last Taken ?Type aspirin 81 mg tablet,delayed 81 mg PO DAILY@0800 HEALT H 01/26/17 01/25/25 History release MAINTENANCE magnesium chloride 71.5 mg 71.5 mg PO DAILY suppliment 07/23/20 01/26/25 History (magnesium chloride) tablet,delayed release (Slow-Mag) Handicap Parking Placard #1 ea 05/09/22 Unknown Rx sacubitril 97 mg-valsartan 103 mg 1 tab PO BID HF #180 tabs 11/04/24 01/26/25 Rx tablet (Entresto) furosemide 20 mg tablet 20 mg PO QDAY water pill #90 tabs 11/17/24 01/26/25 Rx amlodipine 10 mg tablet 10 mg PO DAILY 11/30/2401/09 History carvedilol 25 mg tablet 25 mg PO DAILY 11/30/2401/09 History cholecalciferol (vitamin D3) 1,250 1,250 mcg PO QWEEK 11/30/24 01/18/25 History mcg (50,000 unit) capsule insulin degludec 100 unit/mL (3 7 unit subcut Q24H amara betes 11/30/24 11/30/24 History mL) subcutaneous pen (Tresiba FlexTouch U-100 insulin) tirzepatide 5 mg/0.5 mL 5 mg (0.5 mL) subcut QWEEK # 2 mL 12/29/24 01/21/25 Rx subcutaneous pen injector (Alanaro) dapagliflozin propanediol 10 mg 10 mg PO DAILY 5 01/26/25 History tablet (Farxiga) gabapentin 600 mg tablet 600 mg PO DAILY 01/26/25 History gabapentin 800 mg tablet 800 mg PO QHS 01/26/2501/25 History insulin lispro 100 unit/mL 10 unit subcut TID 01/26/25 01/26/25 History subcutaneous pen (Humalog KwikPen (U-100) Insulin) Allergy/AdvReac Type Severity Reaction Status Date / Time red dye Allergy Hives Verified 01/26/25 11:33 Cxsbmht-JBR-LjV Reductase AdvReac Severe Myalgias Verified 01/26/25 11:33 Inhibitor (Xecfbfb-Ily-Foa Reductase Inhibitor) Family History Father , Lung [...] feel safe at home: Yes ROS ROS Narrative General: Denies fever/chills HENT: Has frontal headache, little bit better today but has been present since yesterday, denies stuffy nose, denies sore throat EYES: Has some black dots in her right vision but it slowly clearing resp: Denies cough, denies shortness of breath Cardiac: Denies chest pain GI: Denies abdominal pain, denies changes in bowel, some chronic constipation, denies nausea/vomiting : Denies changes in urination Extremity: Denies new swelling MSK: Denies new or focal weakness Neuro: Denies any new numbness/tingling, some chronic neuropathy in right lower extremity Heme: Denies any bleeding or bruising Skin: Denies rashes Psychiatric: No complaints voiced Vital Signs Vital Signs Vital Signs: 01/26/25 11:33 01/26/25 13:28 01/26/25 14:00 Temperature 98.0 F Temperature Source Oral Pulse Rate 124 H 60 61 Respiratory Rate 16 14 16 Blood Pressure 117/80 110/64 139/73 H Blood Pressure Mean 92 79 95 Pulse Ox 95 93 95 Oxygen Delivery Method Room Air Weight Weight: 117.934 kg Body Mass Index (BMI) 44.6 Physical Exam Narrative General: Alert, oriented, no apparent distress HEENT: Atraumatic, normocephalic Eyes: Anicteric, normal conjunctiva, extraocular movements intact, right pupil larger than left pupil Neck: Supple Respiratory: Clear to auscultation bilaterally, normal respiratory effort Cardiovascular: Regular rate and rhythm GI: Soft, nontender, nondistended Extremities: No edema Musculoskeletal: Strength 5 out of 5 in right upper extremity, 5 out of 5 left upper extremity, 5 out of 5 right lower extremity, 5 out of 5 left lower extremity Neuro: Query very slight flattening of right nasolabial fold, otherwise no overtfocal neurological deficits, cranial nerves II through XII intact, hdknrz-si-gfqt without significant difficulty bilaterally Skin: No rashes appreciated Psych: Cooperative Results Lab / Micro Data 01/26/25 12:22 01/26/25 12:22 Labs: Laboratory Results - last 24 hr 01/26/25 12:22: WBC 6.0, RBC 4.57, Hgb 13.2, Hct 40.8, MCV 89.3, MCH 28.9, MCHC 32.4, RDW Std Deviation 42.8, RDW Coeff of Ivet 13.2, Plt Count 278, MPV 9.5, Immature Gran % (Auto) 0.500, Neut % (Auto) 47.9, Lymph % (Auto) 39.4, [place] % (Auto) 9.0, Eos % (Auto) 2.7, Baso % (Auto) 0.5, Absolute Neuts (auto) 2.9, Absolute Lymphs (auto) 2.36, Nucleated RBC % 0, PT 14.0, INR 1.1, Sodium 139, Potassium 4.2, Chloride 105, Carbon Dioxide 22.0, Anion Gap 12, BUN 25 H, Creatinine 1.09, Estim Creat Clear Calc 59.78, Est GFR (MDRD) Non-Af 54 L, BUN/Creatinine Ratio 22.8 H, Glucose 139 H, Calcium 9.4 Imaging Radiology Impression Brain CT 01/26/25 12:27 IMPRESSION: 1. No evidence of intracranial hemorrhage or acute ischemia. 2. Changes of chronic microvascular ischemia and volume loss. Reading Location: [id number] Head/Neck CTA 01/26/25 12:27 IMPRESSION: Minimal plaque formation at the origin of the right and left internal carotid arteries causing minimal narrowing. Reading Location: [id number] Assessment & Plan Assessment/Plan (1) Confusion: PLAN: Plan # Transient episode of confusion -Admit to tele -CT head w/ no acute process -CTA head and neck no LVO -MRI ordered, patient had an MRI in 2023 and that was after her ICD was placed, presume we can proceed with MRI here -NIH q4hr -asa, not on statin due to history of adverse reaction with myalgias -Patient just had echocardiogram done earlier this month, will not repeat -PT/OT/Speech eval -Teleneuro consult ordered -Symptoms were about 24 hours ago given patient's ophthalmologic problems feel it is reasonable to manage blood pressure and not allow permissive hypertension again we are 24 hours out at this point # 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 - Patient seen by Optho today was diagnosed with this, patient reports vision isclearing -She reports no acute management was recommended but she is to see a specialist on Sunday in 2 days #Chronic heart failure with recovered ejection fraction with ICD -Daily weights -I's and O's -Heart healthy diet -Fluid restriction -Continue patients home medications #Type 2 diabetes mellitus -Glucose checks and sliding scale insulin #Depression/anxiety -Continue home medications #NICOLLE - Patient noncompliant with NIPPV for several years #GERD -Continue PPI #Hypertension - Continue medications #DVT ppx: SCDs Dahiana Oakley MD Charges/Coding Visit Charges Inpatient E&M: 21275 Init Hosp L2 01/26/25 1532 Cosigner Signature (if applicable): CC: ARIA HUMAN RESOURCES MANAGER MANUFACTURING-C Sarah Toth; Dr. Dahiana Oakley MD~ Signed [facility]08-18-2025 Radiology Diagnostic study note [facility] Imaging Services [address] [place] [address] CTA Head AND Neck W/ Contrast MR#: [id number] Acct: [id number] Name: THIAGO PIERRE Rep #: [id number] : 1955 F 69 From: Bryce Majano MD PCP: ARIA Long, HUMAN RESOURCES MANAGER MANUFACTURING-C Status: REG ER Study:CTA Head AND Neck W/ Contrast Date of E xam: 01/26/25 Exam# [id number] Ordering Dr: Geronimo Murillo MD PROCEDURE: CTA HEAD AND NECK W/ CONTRAST 01/26/2025 REASON FOR EXAM: HEADACHE, VISION CHANGES RIGHT SIDED TECHNIQUE: CTA HEAD AND NECK W/ CONTRAST Multiplanar Sagittal and Coronal images were obtained. 3D post processing was performed CONTRAST: Isovue 370 VOLUME: 100 mL One or more dose reduction techniques were used (e.g., Automated exposure control, adjustment of the mA and/or kV according to patient size, use of iterative reconstruction technique). RADIATION DOSE SUMMARY: CTDlvol: 30.3 mGy DLP: 1542.16 mGycm COMPARISON: Prior CT catheter head done earlier in the day. FINDINGS: There is a 6.4 mm hypodense nodule in the lower pole of the left lobe of the liver suggestive of a small colloid cyst. Aortic Arch: Normal size and branching pattern. Mild atherosclerotic plaque. Brachiocephalic and Subclavians: Unremarkable RIGHT Carotid: Right CCA: Unremarkable. Right ICA: Mild calcified and soft plaque. Maximum stenosis (NASCET): <50 % Right ECA: Unremarkable. LEFT Carotid: Left CCA: Unremarkable. Left ICA: Mild calcified and soft plaque. Maximum stenosis (NASCET): <20 % Left ECA: Unremarkable. Vertebrals: Codominant. Arise from the subclavians. Both vertebrals form the basilar. RIGHT Vertebral: Unremarkable. LEFT Vertebral: Unremarkable. Anatomy: [place] anatomy is normal. Aneurysm or avm: No intracranial aneurysms or large vascular malformations are identified. Anterior cerebral arteries: Unremarkable: Middle cerebral arteries: Unremarkable. Basilar artery: Unremarkable. Posterior cerebral arteries: Unremarkable. Other major branches of the posterior circulation: Unremarkable. Major venous structures: Unremarkable. Other findings: Neck: Lungs: Bones: CT/CTA Head AND Neck W/ Contrast IMPRESSION: Minimal plaque formation at the origin of the right and left internal carotid arteries causing minimal narrowing. Reading Location: TAI CC: [facility] HUMAN RESOURCES MANAGER MANUFACTURING-C Sarah Toth; Dr. Cornelia Murillo MD ~ Charger Tester: Signed [facility]08-18-2025 Radiology Diagnostic study note [facility] Imaging Services [address] [place] [id number] Brain/Head without Contrast MR#: [id number] Acct: [id number] Name: THIAGO PIERRE Rep #: [id number] : 1955 F 69 From: Joe Pillai MD PCP: ARIA Long, HUMAN RESOURCES MANAGER MANUFACTURING-C Status: REG ER Study:Brain/Head without Contrast Date of Exa m: 01/26/25 Exam# [id number] Ordering Dr: Geronimo Murillo MD PROCEDURE: BRAIN/HEAD WITHOUT CONTRAST 01/26/2025 REASON FOR EXAM: HEADACHE TECHNIQUE: BRAIN/HEAD WITHOUT CONTRAST Coronal and Sagittal reconstruction series were provided. One or more dose reduction techniques were used (e.g., Automated exposure control, adjustment of the mA and/or kV according to patient size, use of iterative reconstruction technique. RADIATION DOSE SUMMARY: CTDlvol: 89 mGy DLP: 1542 mGycm COMPARISON: February 18, 2024 FINDINGS: Brain: There is no evidence of hemorrhage, acute ischemia or mass. No extra- axial fluid collection,midline shift or mass effect. Low-density is seen in the periventricular white matter and deep white matter of the frontal and parietal lobes. Lacunar type infarcts in the basal ganglia. CSF Spaces: Normal Sinuses/Mastoids: Clear Bones: No fracture Right lens implant. CT/Brain/Head without Contrast IMPRESSION: 1. No evidence of intracranial hemorrhage or acute ischemia. 2. Changes of chronic microvascular ischemia and volume loss. Reading Location: [id number] CC: Chele HUMAN RESOURCES MANAGER MANUFACTURING-C Sarah Toth; Dr. Cornelia Murillo MD ~ Charger Tester: Signed [facility]06-22-2025 Discharge summary [facility] Medical Records Department [address] [place] [address] Emergency Department Summary 11/30/24 MR#: [id number] Acct: [id number] Name: THIAGO PIERRE Rep #:[id number] : 1955 69 From: Juventino Kern MD PCP: ARIA Long, HUMAN RESOURCES MANAGER MANUFACTURING-C Statu s:REG ER Location: ED HPI History [...] heart failure who presents with dyspnea that sta rted3 days ago. She reports increased dyspnea with [...] obstructive sleep apnea as well. There is alsohistory of dilated cardiomyopathy. Last visit to open hearth helper patient was seen by CHAPIN Tristan. 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 Patient [...] disease Pure hypercholesterolemia Atherosclerotic heart disease of nikolai coronary artery without angina pectoris Nonrheumatic mitral [...] mL 11/27/24 11/26/24 Rx subcutaneous pen injector (Mounchelsearo) amlodipine 10 mg tablet 10 mg PO [...] red dye Allergy Hives Verified 11/30/24 11:39 Csacgpa-MUJ-JwR Reductase AdvReac Severe Myalgias Verified 11/30/24 11:39 Inhibitor (Hckbxwe-Zfp-Wwr Reductase Inhibitor) semaglutide (From Ozempic) AdvReac Vomiting [...] Denies chest pain, palpitations, paroxysmal nocturnal dyspnea orracing heartbeat Respiratory/Chest Respiratory/Chest: Reports cough, dyspnea, dyspnea [...] intact bilaterally and no sensory deficits noted [place] Coma Scale: document GCS findings Spontaneous Obeys [...] % (Auto) 56.9 Lymph % (Auto) 34.7 [place] % (Auto) 5.3 Eos % (Auto) 2.2 [...] She has not been using her BiPAP machine.She has been sitting a lot. Suspect her lower extremity edema is due to dependent edema. Patient has not made much urine since receiving Lasix. Xboxrj-so-tmnr patient is if anything isslightly on thedry side with an elevated and her BUN [...] 11:52 IMPRESSION: NO ACUTE FINDINGS. Reading Location: [facility] EKG Initial EKG: Attestation: I personally reviewed [...] Care Provider: Sarah Toth Referrals: Sarah Toth, HUMAN RESOURCES MANAGER MANUFACTURING-C [Primary Care Provider] - 3-5 Days Activity Restrictions/Additional Instructions: 1. You need to walk more 2. When you are sitting you need to elevate your toes above your nose 3. Recommend contacting Dr. Marcum's office for follow-up 4. Recommend purchasing compressive hose at the pharmacy. Print Language: Kuwaiti Disposition Disposition: Home, Self Care What to do if you have Problems For any increased pain, shortness of breath, bleeding, nausea or vomiting, chestpain, or any unexpected problems, contact your Primary Care Provider. Call [facility] ([phone]) or report tothe closest Emergency Room. Call 911 if necessary. 11/30/24 1503 Cosigner Signature (if applicable): CC: ARIA HUMAN RESOURCES MANAGER MANUFACTURING-Chele Toth ~ Signed [facility]06-22-2025 Discharge summary Author Juventino Kern [facility] Note Date/Time November 30, 2024 3:03 pm [facility] Medical Records Department [address] [place] [address] Emergency Department Summary 11/30/24 MR#: [id number] Acct: [id number] Name: THIAGO PIERRE Rep #:[id number] : 1955 69 From: Juventino Kern MD PCP: ARIA Long, HUMAN RESOURCES MANAGER MANUFACTURING-C Statu s:REG ER Location: ED HPI History [...] history of dilated cardiomyopathy. Last visit to [facility] hearth helper patient was seen by CHAPIN Tristan. 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 Patient [...] disease Pure hypercholesterolemia Atherosclerotic heart disease of nikolai coronary artery without angina pectoris Nonrheumatic mitral [...] (0.15 mL) subcut T ID #54 mL 05/23/25 06/22/25 Rx unit/mL subcutaneous (insulin lispro) sacubitril 97 [...] red dye Allergy Hives Verified 11/30/24 11:39 Eaqrnnh-ZUL-ZwD Reductase AdvReac Severe Myalgias Verified 11/30/24 11:39 Inhibitor (Jqwabce-Iax-Enm Reductase Inhibitor) semaglutide (From Ozempic) AdvReac Vomiting [...] intact bilaterally and no sensory deficits noted [place] Coma Scale: document GCS findings Spontaneous Obeys [...] % (Auto) 56.9 Lymph % (Auto) 34.7 [place] % (Auto) 5.3 Eos % (Auto) 2.2 [...] not made much urine since receiving Lasix. Tqzpym-jm-kapo patient is if anything isslightly on the [...] 11:52 IMPRESSION: NO ACUTE FINDINGS. Reading Location: [facility] EKG Initial EKG: Attestation: I personally reviewed [...] Care Provider: Sarah Toth Referrals: Sarah Toth, HUMAN RESOURCES MANAGER MANUFACTURING-C [Primary Care Provider] - 3-5 Days Activity Restrictions/Additional Instructions: 1. You need to walk more 2. When you are sitting you need to elevate your toes above your nose 3. Recommend contacting Dr. Marcum's office for follow-up 4. Recommend purchasing compressive hose at the pharmacy. Print Language: [place]i Disposition Disposition: Home, Self Care What to do if you have Problems For any increased pain, shortness of breath, bleeding, nausea or vomiting, chestpain, or any unexpected problems, contact your Primary Care Provider. Call [facility] ([phone]) or report to the closest Emergency Room. Call 911 if necessary. 11/30/24 1503 <Electronically signed by Juventino Kern MD> Cosigner Signature (if applicable): CC: ARIA HUMAN RESOURCES MANAGER MANUFACTURING-C Sarah Toth ~ Signed [facility] Work Phone: 1(535) 840-368806-22-2025 Radiology Diagnostic study note [facility] Imaging Services [address] [place] [address] Chest PA and Lateral MR#: [id number] Acct: [id number] Name: THIAGO PIERRE Rep #: [id number] : 1955 F 69 From: Dahlia Mcpherson MD PCP: ARIA Long, HUMAN RESOURCES MANAGER MANUFACTURING-C Status: REG ER Study:Chest PA and Lateral Date of Exam: 11/30/24 Exam# [id number] Ordering Dr: Annetta Kern MD PROCEDURE: CHEST [...] Lateral IMPRESSION: NO ACUTE FINDINGS. Reading Location: [id number] CC: ARIA HUMAN RESOURCES MANAGER MANUFACTURING-Chele Toth; Dr. Juventino Kern MD ~ Charger Tester: Signed [facility]05-15-2025 Evaluation note* Diagnosis Onset Date Resolution Status Admit Date CKD (chronic kidney disease) stage 3, GFR 30-59 ml/min chronic October 232024 1:29pm Diabetes mellitus, type II chronic October 23, 2024 1:29pm Essential hypertension chronic 2024 1:29pm Hyperlipidemia chronic October 23, 2024 1:29pm Microalbuminuria due to type 2 diabetes mellitus chronic October 23, 2024 1:29pm Obesity chronic October 23, 2024 1:29pm [facility] Work Phone: 1(955) 251-279005-15-2025 Evaluation note* Diagnosis Onset Date Resolution Status Admit Date CKD (chronic kidney disease) stage 3, GFR 30-59 ml/min chronic October 23 1:29pm Diabetes mellitus, type II chronic October 23, 2024 1:29pm Essential hypertension chronic Ma y 2024 1:29pm Hyperlipidemia chronic October 23, 2024 1:29pm Microalbuminuria due to type 2 diabetes mellitus chronic October 23, 2024 1:29pm Obesity chronic October 23, 2024 1:29pm Atherosclerotic heart diseas e of nikolai coronary artery without angina pectoris chronic December 25, 2024 2:19pm Chronic systolic (congestive ) heart failure chronic December 25, 2024 2:19pm Dilated cardiomyopathy chronic Ju ly 2024 2:19pm Essential hypertension chronic Ju ly 2024 2:19pm Pure hypercholesterolemia chronic December 25, 2024 2:19pm Cardiac defibrillator in situ inacti ve December 25, 2024 2:19pm [facility] Work Phone: 1(263) 370-531505-15-2025 Evaluation note* Diagnosis Onset Date Resolution Status Admit Date CKD (chronic kidney disease) stage 3, GFR 30-59 ml/min chronic October 23 1:29pm Diabetes mellitus, type II chronic October 23, 2024 1:29pm Essential hypertension chronic Ma y 2024 1:29pm Hyperlipidemia chronic October 23, 2024 1:29pm Microalbuminuria due to type 2 diabetes mellitus chronic October 23, 2024 1:29pm Obesity chronic October 23, 2024 1:29pm Atherosclerotic heart diseas e of nikolai coronary artery without angina pectoris chronic December 25, 2024 2:19pm Chronic systolic (congestive ) heart failure chronic December 25, 2024 2:19pm Dilated cardiomyopathy chronic Ju ly 2024 2:19pm Essential hypertension chronic Ju ly 2024 2:19pm Pure hypercholesterolemia chronic December 25, 2024 2:19pm Cardiac defibrillator in situ inacti ve December 25, 2024 2:19pm Confusion acute January 26, 2 025 3:07pm [facility] Work Phone: 1(834) 967-200105-15-2025 Evaluation note* Diagnosis Onset Date Resolution Status Admit Date CKD (chronic kidney disease) stage 3, GFR 30-59 ml/min chronic October 23 1:29pm Diabetes mellitus, type II chronic October 23, 2024 1:29pm Essential hypertension chronic Ma y 2024 1:29pm Hyperlipidemia chronic October 23, 2024 1:29pm Microalbuminuria due to type 2 diabetes mellitus chronic October 23, 2024 1:29pm Obesity chronic October 23, 2024 1:29pm Atherosclerotic heart diseas e of nikolai coronary artery without angina pectoris chronic December 25, 2024 2:19pm Chronic systolic (congestive ) heart failure chronic December 25, 2024 2:19pm Dilated cardiomyopathy chronic Ju ly 2024 2:19pm Essential hypertension chronic Ju ly 2024 2:19pm Pure hypercholesterolemia chronic December 25, 2024 2:19pm Cardiac defibrillator in situ inacti ve December 25, 2024 2:19pm Confusion acute January 26, 2 025 3:07pm Chronic systolic (congestive ) heart failure chronic January 27 10:20am Dilated cardiomyopathy chronic [place] 2024 10:20am [facility] Work Phone: 1(226) 906-854505-15-2025 Evaluation note* Diagnosis Onset Date Resolution Status Admit Date CKD (chronic kidney disease) stage 3, GFR 30-59 ml/min chronic October 23 1:29pm Diabetes mellitus, type II chronic October 23, 2024 1:29pm Essential hypertension chronic Ma y 2024 1:29pm Hyperlipidemia chronic October 23, 2024 1:29pm Microalbuminuria due to type 2 diabetes mellitus chronic October 23, 2024 1:29pm Obesity chronic October 23, 2024 1:29pm Atherosclerotic heart diseas e of nikolai coronary artery without angina pectoris chronic December 25, 2024 2:19pm Chronic systolic (congestive ) heart failure chronic December 25, 2024 2:19pm Dilated cardiomyopathy chronic Ju ly 2024 2:19pm Essential hypertension chronic Ju ly 2024 2:19pm Pure hypercholesterolemia chronic December 25, 2024 2:19pm Cardiac defibrillator in situ inacti ve December 25, 2024 2:19pm Confusion resolved January 26, 2 025 3:07pm Chronic systolic (congestive ) heart failure chronic January 27 10:20am Dilated cardiomyopathy chronic [facility] 2024 10:20am [facility] Work Phone: 1(292) 759-167301-22-2025 Evaluation note* Diagnosis Onset Date Resolution Status Admit Date Atherosclerotic heart diseas e of nikolai coronary artery without angina pectoris chronic July 02 12:52pm Chronic systolic (congestive ) heart failure chronic July 02 12:52pm Dilated cardiomyopathy chronic [place] 2024 12:52pm Essential hypertension chronic [facility] 2024 12:52pm Pure hypercholesterolemia chronic July 02, 2024 12:52pm Cardiac defibrillator in situ inacti ve July 02, 2024 12:52pm CKD (chronic kidney disease) stage 3, GFR 30-59 ml/min chronic 2024 2:29pm Diabetes mellitus, type II chronic July 16, 2024 2:29pm Essential hypertension chronic 2024 2:29pm Hyperlipidemia chronic July 162024 2:29pm Microalbuminuria chronic July 16, 2024 2:29pm Obesity (BMI 30-39.9) chronic Jul 2:29pm [facility] Work Phone: 1(599) 186-681201-22-2025 Evaluation note* Diagnosis Onset Date Resolution Status Admit Date Atherosclerotic heart diseas e of nikolai coronary artery without angina pectoris chronic July 02 12:52pm Chronic systolic (congestive ) heart failure chronic July 02 12:52pm Dilated cardiomyopathy chronic [facility] 2024 12:52pm Essential hypertension chronic [facility] 2024 12:52pm Pure hypercholesterolemia chronic July 02, [...] 1:29pm Obesity chronic October 23, 2024 1:29pm [facility] Work Phone: 1(558) 105-555606-18-2024 NoteDate of Procedure 11/27/2023. Custodian Manager Information Electoral Officer: Rebecca Rey Start time: 2:00 PM. Stop time: 2:[address], stable regressed [id number] NoteDate of Procedure 11/27/2023. Custodian Manager Information Aga De La Torre, Industrial Robotics Mechanic 11/27/2023 2:22 PM . Notes Eye: Left [...] of treated choroidal melanoma with decreased subretinal opacities.[id number] NoteHNO ID: [id number] Author: HONORIO QUINTANA MD Service: ? Author Type: Physician Type: Progress Notes Filed: 11/27/2023 15:39 Note Text: LTFU 01/2018 - 02/2023. Had previously planned on TTT#2. Returning after seeing Dr. Flanagan, concern for exudative retinal detachment left eye. Decreased vision in the left eye over the last few months. Referred by Dr Olivares ([place]) for OS melanoma evaluation Pt w hx [...] Located superior/superotemporal to disc 12-2 oclock position [place]+ SRF+ Drusen+ RPE changes+ Severe NPDR / [...] Honorio Quintana MD November 27, 2023 3:38 [facility]06-18-2024 History of Present illness Narrative* Honorio Quintana MD - 11/27/2023 2:41 PM EDT [facility] 01/2018 - 02/2023. Had previously planned on TTT#2. Returning after seeing Dr. Flanagan, concern for exudative retinal detachment left eye. Decreased vision in the left eye over the last few months. Referred by Dr Olivares ([place]) for OS melanoma evaluation Pt w hx [...] Located superior/superotemporal to disc 12-2 oclock position [place]+ SRF+ Drusen+ RPE changes+ Severe NPDR / [...] 27, 2023 3:38 PM documented in this [facility]23 NoteHNO ID: [id number] Author: Honorio Quintana MD Service: ? Author Type: Physician Type: Progress Notes Filed: 05/28/2023 9:05 PM Note Text: LTFU 01/2018 - 02/2023. Had previously planned on TTT#2. Returning after seeing Dr. Flanagan, concern for exudative retinal detachment left eye. Decreased vision in the left eye over the last few months. Referred by Dr Olivares ([place]) for OS melanoma evaluation Pt w hx [...] Located superior/superotemporal to disc 12-2 oclock position [place]+ SRF+ Drusen+ RPE changes+ Severe NPDR / [...] Honorio Quintana MD May 28, 2023 9:04 [facility]09-25-2023 History of Present illness Narrative* Sarah Dao [...] 05, 2023 11:10 AM documented in this encounterOhio[facility]09-25-2023 NoteHNO ID: [id number] Author: Sarah Dao RDMS Service: ? Author Type: Door Repairer Bus Type: Progress Notes Filed: 03/05/2023 11:11 AM [...] Dao RDMS RVT March 05, 2023 11:10 [facility]09-14-2023 NoteHNO ID: [id number] Author: Honorio Quintana MD Service: ? Author Type: Physician Type: Progress Notes Filed: 02/23/2023 11:07 AM Note Text: LTFU 01/2018 - 02/2023. Had previously planned on TTT#2. Returning after seeing Dr. Flanagan, concern for exudative retinal detachment left eye. Decreased vision in the left eye over the last few months. Referred by Dr Olivares ([place]) for OS melanoma evaluation Pt w hx [...] Located superior/superotemporal to disc 12-2 oclock position [place]+ SRF+ Drusen+ RPE changes+ Severe NPDR / [...] Honorio Quintana MD February 23, 2023 11:07 [facility]07-26-2023 NoteHNO ID: [id number] Author: Denny Flanagan MD Service: ? Author [...] Denny Flanagan MD January 03, 2023 10:05 [facility]04-28-2022 History of Present illness Narrative* Shaka Alonso - 10/06/2021 12:58 PM EDT Last saw Dr. Parada: not present in chart Subjective: Patient presents [...] Objective: Patient presents to clinic ambulating in teagues Vasc: DP and PT pulses are palpable [...] months. Shaka Alonso DPM documented in this encounterOhio[facility]04-28-2022 Instructions* Patient Instructions* Shaka Alonso - [...] (or decreased sensation in your feet) a cloth boil off machine operator should always cut your toenails. Be [...] Go to your health care provider or cloth boil off machine operator to treat these conditions. documented in this encounterOhio[facility] HospitalDis[facility] summary Author Sidra Irving [facility] Note Date/Time January 27, 2025 3: 17pm [facility] Medical Records Department [address] [place] [address] Instructions for Home/Discharge Instructions 01/27/25 1359 MR#: [id number] Acct: [id number] Name: THIAGO PIERRE Rep #:[id number] : 1955 69 From: Sidra Ivring MD PCP: ARIA Long, HUMAN RESOURCES MANAGER MANUFACTURING-C Statu s:ADM DENIS Discharge Instructions DC O2, CPAP, BIPAP needs Home O2 Discharge instructions: No Dressing / Incision Discharge Activity: Return to Normal Activity Weight Bearing Status: Weight bearing as tolerated Dressing / Incision Call your doctor if you observe: Fever of 101 or Higher, Shortness of breath, Dizziness, Swelling in the ankles and Chest pain Follow Up Care Test Results: Test results from this visit will be discussed in further detail at your follow- up appointment, if applicable. Discharge Plan Admission Admit Date/Time: 01/26/25 15:07 Primary Reason for Your Visit: TIA, migraine Attending Provider: Sidra Irving Primary Care Provider: Sarah Toth Consulting Providers: Cesar Parekh; Merlyn Hardy; Annita Barba; Samra Samano; Maude Anderson; Ferdinand Cruz; Tati Hardwick; Sunny Connelly; Keila Chacon; Arturo Fuller; Sherley Rodriguez; Shaka Lerner; Mary Zuñiga; Serjio Nice; Isabela Alaniz; Dwight Taylor; Joleen Spangler; Modesto Clements; Zaria Esteban; Rand Chamberlain;Dahiana Oakley Instructions Patient Instructions: Migraine Headaches Ch Discharge Orders/Prescriptions Prescriptions: Continued Slow-Mag 71.5 mg tablet,delayed release (DR/EC) 71.5 mg PO DAILY Entresto 97-103 mg tablet 1 tab PO BID Qty: 180 3RF aspirin 81 MG tablet 81 mg PO DAILY@0800 Patient Comments: HEART HEALTH amlodipine 10 mg tablet 10 mg PO DAILY cholecalciferol (vitamin D3) 1,250 mcg (50,000 unit) capsule 1,250 mcg PO QWEEK carvedilol 25 mg tablet 25 mg PO DAILY Rx Instructions: must administer with a meal/food insulin degludec [Tresiba FlexTouch U-100] 100 unit/mL (3 mL) insulin pen 7 unit subcut Q24H gabapentin 600 mg tablet 600 mg PO DAILY Rx Instructions: AM gabapentin 800 mg tablet 800 mg PO QHS dapagliflozin propanediol [Farxiga] 10 mg tablet 10 mg PO DAILY insulin lispro [Humalog KwikPen Insulin] 100 unit/mL insulin pen 10 unit subcut TID (DME) Handicap Parking Placard See Rx Instructions .Route .MEDSUPPLY Qty: 1 0RF Rx Instructions: As directed furosemide 20 mg tablet 20 mg PO QDAY Qty: 90 3RF Mounjaro 5 mg/0.5 mL pen injector 5 mg subcut QWEEK Qty: 2 3RF Referrals / Follow Up: Sarah Toth [facility], HUMAN RESOURCES MANAGER MANUFACTURING-C [Primary Care Provider] - Within 1 Week Disposition Disposition (needs filled in before D/C Order can be placed): Home, Self Care 01/27/25 1359<Electronically signed by Sidra Irving MD>Sidra Irving MD CC: Samra Samano; Mary Zuñiga; Dwight Taylor; C HUMAN RESOURCES MANAGER MANUFACTURING-C Sarah Toth;Maude Anderson MD; Annita Barba MD; Cesar Parekh MD; Dr. Merlyn Hardy MD; Dr. Ferdinand Cruz MD; Dr. Tati Hardwick MD; Dr. Keila Chacon MD; Dr. Sunny Connelly MD;Dr. Arturo Fuller MD; Dr. Shaka Lerner DO; Dr. Isabela Alaniz MD; Dr.Mohamed Arlet MD; Dr. Dahiana Oakley MD; Dr. Joleen Spangler MD; Dr. Modesto Clements MD; Dr. Zaria Esteban MD; Sherley Rodriguez DO; Rand Chamberlain MD ~ Signed [facility] Work Phone: Discharge summary Author Sidra Irving [facility] Note Date/Time January 27, 2025 2: 07pm [facility] Medical Records Department [address] [place] [address] Discharge Summary 01/27/25 1359 MR#: [id number] Acct: [id number] Name: THIAGO PIERRE Rep #:[id number] : 1955 69 From: Sidra Irving MD PCP: ARIA Long, [place] Statu s:ADM DENIS Location: [place] [address] Providers Date of Admission: 01/26/25 Date of Discharge: 01/27/25 Primary Care Physician: ARIA Long, [place] Consultations 01/26/25 16:52 Consult: Tele-Neurology Routine Consulting Provider: [facility] Reason for Consult: TIA rule out, episode of transient confusion yesterday EMERGENT Consult: No MD Notified: Yes Date Notified: 01/26/25 Time Notified: 17:29 Method of Notification: Answering Service Reason For Visit: TIZ RULE OUT Diagnosis Discharge Diagnosis (1) Confusion: Status: Acute Code(s): R41.0 - Disorientation, unspecified Medications at Discharge Home Medications aspirin 81 mg tablet,delayed release 81 mg PO DAILY@0800 HEALTH MAINTENANCE 01/26/17 magnesium chloride 71.5 mg (magnesium chloride) tablet,delayed release (Slow- Mag) 71.5 mg PO DAILY suppliment 07/23/20 Handicap Parking Placard #1 ea 05/09/22 sacubitril 97 mg-valsartan 103 mg tablet (Entresto) 1 tab PO BID HF #180 tabs 11/04/24 furosemide 20 mg tablet 20 mg PO QDAY water pill #90 tabs 11/17/24 amlodipine 10 mg tablet 10 mg PO DAILY 11/30/24 carvedilol 25 mg tablet 25 mg PO DAILY 11/30/24 cholecalciferol (vitamin D3) 1,250 mcg (50,000 unit) capsule 1,250 mcg PO QWEEK 11/30/24 insulin degludec 100 unit/mL (3 mL) subcutaneous pen (Tresiba FlexTouch U-100 insulin) 7 unit subcut Q24H diabetes 11/30/24 tirzepatide 5 mg/0.5 mL subcutaneous pen injector (Mounjaro) 5 mg (0.5 mL) subcut QWEEK #2 mL 12/29/24 dapagliflozin propanediol 10 mg tablet (Farxiga) 10 mg PO DAILY 01/26/25 gabapentin 600 mg tablet 600 mg PO DAILY 01/26/25 gabapentin 800 mg tablet 800 mg PO QHS 01/26/25 insulin lispro 100 unit/mL subcutaneous pen (Humalog KwikPen (U-100) Insulin) 10unit subcut TID 01/26/25 Hospital Course Operations None Summary of Care Provided Minutes Spent on Discharge: 45 Hospital Course: Patient is a 69-year-old female with past medical history as outlined was admitted through the ED on 01/26/2025 with a complaint of transient episode of confusion. She says she was at her sexwwr-dj-hkw's house and took a nap and when she woke up she was confused and did not know where she was aware. This lasted for just about 5 minutes. She had been to her she had retinopathy of theright eye for several weeks prior to admission. She went to see a specialist but there was concern that her confusion could be due to a stroke so she was sent to the ED to rule out a stroke. CT of the brain was negative for any evidence of stroke. Neurology reviewed her recommended MRI. She had MRI of thebrain which also showed no acute ischemic pathology and no acute intracranial pathology. Neurology felt her symptoms might be related to a migraine headache and was likely benign and recommended using her headache cocktail of ketorolac, metoclopramide or Zofran or Compazine and Benadryl as well as magnesium sulfate if needed. However patient's headache did not really recur and she felt much better. She had had a 2D echo on 01/19/2025 so this was not repeated. She remained stable and was discharged on 01/27/2025. She is follow-up with her primary care doctor within 1 to 2 weeks. Patient seen and examined prior to discharge. As well as by her bedside. She had no complaints and had an uneventful night. Review of systems otherwise negative. Labs and vitals reviewed. Medication reviewed and reconciled. Physical Exam Const alert and oriented x3 Constitutional Narrative: class III obesity General Appearance: cooperative and comfortable Exam Limitations: no limitations HEENT normocephalic, head/scalp atraumatic and hearing grossly normal bilaterally Mouth: oral and palatal mucosa normal Eyes EOMs intact bilaterally and conjunctivae normal Neck supple Resp normal respiratory effort, no use of accessory muscles and clear to auscultationbilaterally Cardio regular rate, regular rhythm, S1 normal heart sound, S2 normal heart sound and no murmurs GI normal to inspection, nondistended, normoactive bowel sounds, soft to palpation,non-tender and non-distended Extremity normal to inspection and full ROM Skin no rashes or lesions noted Neuro oriented x3, moves all extremities, no focal motor deficits and no sensory deficits noted Sensorium / Orientation: awake and alert Motor Exam: strength 5/5 throughout Psych affect normal Weight / BMI Weight Weight: 261 lb 11.019 oz Body Mass Index (BMI) 44.9 ABG / Lab / Microbiology Data 01/27/25 05:04 01/27/25 05:04 Laboratory: Laboratory Results - last 24 hr 01/26/25 12:22: WBC 6.0, RBC 4.57, Hgb 13.2, Hct 40.8, MCV 89.3, MCH 28.9, MCHC 32.4, RDW Std Deviation 42.8, RDW Coeff of Ivet 13.2, Plt Count 278, MPV 9.5, Immature Gran % (Auto) 0.500, Neut % (Auto) 47.9, Lymph % (Auto) 39.4, [place] % (Auto) 9.0, Eos % (Auto) 2.7, Baso % (Auto) 0.5, Absolute Neuts (auto) 2.9, Absolute Lymphs (auto) 2.36, Nucleated RBC % 0, PT 14.0, INR 1.1, Troponin T High Sens 15 H D 01/26/25 15:25: Troponin T Hi Sens 2 Hr 14 01/26/25 16:48: Troponin T Hi Sens 4Hr 11 01/26/25 18:24: POC Glucose 113 H 01/26/25 20:35: POC Glucose 153 H 01/27/25 05:04: WBC 5.4, RBC 4.44, Hgb 12.8, Hct 39.0, MCV 87.8, MCH 28.8, MCHC 32.8, RDW Std Deviation 42.6, RDW Coeff of Ivet 13.3, Plt Count 265, MPV 9.2, Immature Gran % (Auto) 0.600, Neut % (Auto) 53.5, Lymph % (Auto) 34.6, [place] % (Auto) 7.1, Eos % (Auto) 3.6, Baso % (Auto) 0.6, Absolute Neuts (auto) 2.9, Absolute Lymphs (auto) 1.85, Nucleated RBC % 0, Sodium 138, Potassium 4.3, Chloride 105, Carbon Dioxide 20.2 L, Anion Gap 13, BUN 22 H, Creatinine 1.17, Estim Creat Clear Calc 55.91, Est GFR (MDRD) Non-Af 50 L, BUN/Creatinine Ratio 18.9, Glucose 152 H, Hemoglobin A1c 8.1 H, Calcium 8.6, Triglycerides 218 H, Cholesterol 220 H, LDL Cholesterol, Calc 133, VLDL Cholesterol 44 H, HDL Cholesterol 43, Cholesterol/HDL Ratio 5.10, TSH 3.260 01/27/25 06:39: POC Glucose 152 H 01/27/25 11:42: POC Glucose 158 H Radiography Diagnostic Testing: Radiology Impression Brain CT 01/26/25 12:27 IMPRESSION: 1. No evidence of intracranial hemorrhage or acute ischemia. 2. Changes of chronic microvascular ischemia and volume loss. Reading Location: [facility] Head/Neck CTA 01/26/25 12:27 IMPRESSION: Minimal plaque formation at the origin of the right and left internal carotid arteries causing minimal narrowing. Reading Location: [id number] Brain MRI 01/27/25 15:31 IMPRESSION: No evidence of acute ischemia. Chronic microvascular ischemic changes, mild volume loss. Reading Location: [facility] D/C Instructions Discharge Activity: Return to Normal Activity Weight Bearing Status: Weight bearing as tolerated Call your doctor if you observe: Fever of 101 or Higher, Shortness of breath, Dizziness, Swelling in the ankles and Chest pain DC O2, CPAP, BIPAP Needs Home O2 Discharge instructions: No Meaningful Use Info Meaningful Use Meaningful Use Diagnoses (Choose all that apply): None applicable Discharge Plan Admission Admit Date/Time: 01/26/25 15:07 Primary Reason for Your Visit: TIA, migraine Attending Provider: Sidra Irving Primary Care Provider: Sarah Toth Consulting Providers: Cesar Parekh; Merlyn Hardy; Annita Barba; Samra Samano; Maude Anderson; Ferdinand Cruz; Tati Hardwick; Sunny Connelly; Keila Chacon; Arturo Fuller; Sherley Rodriguez; Shaka Lerner; Mary Zuñiga; Serjio Nice; Isabela Alaniz; Dwight Taylor; Joleen Spangler; Modesto Clements; Zaria Esteban; Rand Chamberlain;Dahiana Oakley Instructions Patient Instructions: Migraine Headaches Ch Discharge Orders/Prescriptions Prescriptions: Continued Slow-Mag 71.5 mg tablet,delayed release (DR/EC) 71.5 mg PO DAILY Entresto 97-103 mg tablet 1 tab PO BID Qty: 180 3RF aspirin 81 MG tablet 81 mg PO DAILY@0800 Patient Comments: HEART HEALTH amlodipine 10 mg tablet 10 mg PO DAILY cholecalciferol (vitamin D3) 1,250 mcg (50,000 unit) capsule 1,250 mcg PO QWEEK carvedilol 25 mg tablet 25 mg PO DAILY Rx Instructions: must administer with a meal/food insulin degludec [Tresiba FlexTouch U-100] 100 unit/mL (3 mL) insulin pen 7 unit subcut Q24H gabapentin 600 mg tablet 600 mg PO DAILY Rx Instructions: AM gabapentin 800 mg tablet 800 mg PO QHS dapagliflozin propanediol [Farxiga] 10 mg tablet 10 mg PO DAILY insulin lispro [Humalog KwikPen Insulin] 100 unit/mL insulin pen 10 unit subcut TID (DME) Handicap Parking Placard See Rx Instructions .Route .MEDSUPPLY Qty: 1 0RF Rx Instructions: As directed furosemide 20 mg tablet 20 mg PO QDAY Qty: 90 3RF Mounjaro 5 mg/0.5 mL pen injector 5 mg subcut QWEEK Qty: 2 3RF Referrals / Follow Up: Sarah Toth, HUMAN RESOURCES MANAGER MANUFACTURING-C [Primary Care Provider] - Within 1 Week Disposition Disposition (needs filled in before D/C Order can be placed): Home, Self Care Charges/Coding Visit Charges Inpatient E&M: 24780 Disch Hosp >30min 01/27/25 1407 <Electronically signed by Sidra Irving MD> Cosigner Signature (if applicable): CC: C HUMAN RESOURCES MANAGER MANUFACTURINGVicenteC Sarah Toth; Dr. Sidra Irving MD~ Signed [facility] Work Phone: Evaluation note* Diagnosis Onychomycosis- Primary Dermatophytosis of nail Pain in toe of left foot Pain in limb Pain in toe of right foot Pain in limb Other diabetic neurological complication associated with type 2 diabetes mellitus (HCC) Hyperkeratosis Acquired keratoderma documented [facility] noteNo assessment information availableWOhio State East [facility] Work Phone: Evaluation note* Diagnosis Onset [...] syncope acute Atherosclerotic heart diseas e of nikolai coronary artery without angina pectoris chronic Cardiac defibrillator in situ chronic Chronic systolic (congestive) heart failure chronic Dilated cardiomyopathy chron ic Essential hypertension chron ic Pure hypercholesterolemia ch ronic Cardiac defibrillator in situ chronic Chronic systolic (congestive) heart failure chronic Dilated cardiomyopathy [facility] Work Phone: Evaluation note* Diagnosis 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) documented in this encounter [facility] note* Diagnosis Onset Date Resolution Status CKD (chronic kidney disease) stage 3, GFR 30-59 ml/min chronic Diabetes mellitus, type II c hronic Essential hypertension chron ic Obesity (BMI 30-39.9) chroni c Atherosclerotic heart diseas e of nikolai coronary artery without angina pectoris chronic Cardiac defibrillator in situ chronic Chronic systolic (congestive) heart failure chronic Dilated cardiomyopathy chron ic Essential hypertension chron ic Pure hypercholesterolemia ch ronic Depression chronic Diabetes mellitus, type II c hronic Obesity (BMI 30-39.9) [facility] Work Phone: Evaluation note* Diagnosis Onset Date Resolution Status Atherosclerotic heart diseas e of nikolai coronary artery without angina pectoris chronic Cardiac defibrillator in situ chronic Chronic systolic (congestive) heart failure chronic Dilated cardiomyopathy chron ic Essential hypertension chron ic Pure hypercholesterolemia ch ronic Depression chronic Diabetes mellitus, type II c hronic Obesity (BMI 30-39.9) chroni c [facility] Work Phone: Evaluation note* Diagnosis 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)- Primary documented [facility] encounter [facility] Author Dahiana Oakley [facility] Note Date/Time January 26, 2025 3: [address] [place] [address] System Medical Records Department [address] [place] [address] H&P Exam - Hospitalist 01/26/25 1507 MR#: [id number] Acct: [id number] Name: THIAGO PIERRE Rep #:[id number] : 1955 69 From: Dahiana Oakley MD PCP: ARIA Long, HUMAN RESOURCES MANAGER MANUFACTURING-C Statu s:ADM DENIS Location: [place] [address] HPI - General General Date of Admission: 01/26/25 Date of Service: 01/26/25 Chief Complaint: Transient episode of confusion HPI Narrative THIAGO PIERRE, is a 69-year-old female history of nonobstructive CAD, BiV ICD in 2016, diabetes, NICOLLE, hypertension, depression, GERD, heart failure with recovered EF presented to [facility] ED 01/26/2025 due to transient episode of confusion. In the ED temp 98, heart rate initially 124 andcame down to 60, blood pressure 117/88, respiratory rate 16 and pulse ox 95% on room air. BMP with a glucose of 139, BUN of 25 and creatinine 1.09. CBC unremarkable, INR 1.1. CT of the head with no acute process, CTA head and neck no LVO. Hospitalist contacted for admission for TIA rule out. Reportedly patient had a headache yesterday and took a nap, when she woke up she was confused for 5 minutes and did not know where she was or who her family members were, this completely resolved after 5 minutes. She also notes that she has hada screen like feeling over her right eye for several weeks but yesterday she developed dark lines and spots in her vision, today she went to the gl accountant and was told she has retinopathy and had some bleeding behind the eye and was referred to a specialist who she will follow-up with on Sunday but they recommended patient come to the ED to rule out a stroke giventhe episode of confusion yesterday. Patient said she still has a headache in its frontal and bilateral and it slightly improved with the Tylenol. Reports she still has some dots in her vision and still feels a little bit like the screen is pulled over it but feels her vision is slowly clearing. She reports she has some chronic right lower extremity neuropathy that has been a little bitworse recently but no acute numbness or tingling, no other acute ROS complaints aside from the above. Notes that she does have sleep apnea but has not used herNIPPV for several years, mental status seems back to baseline and patient not somnolent or with decreased level of consciousness. [facility] Medical History Essential hypertension Elevated troponin History of diabetes mellitus Hx of cardiomyopathy Dysarthria Medication reaction Intractable nausea and vomiting Dizziness Depression Near syncope Vertigo Carotid artery disease Pure hypercholesterolemia Atherosclerotic heart disease of nikolai coronary artery without angina pectoris Nonrheumatic mitral (valve) insufficiency Dilated cardiomyopathy Chronic systolic (congestive) heart failure BALWINDER (acute kidney injury) Abnormal electrocardiogram Systolic CHF, acute Hypertension Hyperlipidemia Diabetes mellitus, type II NICOLLE (obstructive sleep apnea) Home Medications ?Medication ?Instructions ?Recorded ?Last Taken ?Type aspirin 81 mg tablet,delayed 81 mg PO DAILY@0800 HEALT H 01/26/17 01/25/25 History release MAINTENANCE magnesium chloride 71.5 mg 71.5 mg PO DAILY suppliment 07/23/20 01/26/25 History (magnesium chloride) tablet,delayed release (Slow-Mag) Handicap Parking Placard #1 ea 05/09/22 Unknown Rx sacubitril 97 mg-valsartan 103 mg 1 tab PO BID HF #180 tabs 11/04/24 01/26/25 Rx tablet (Entresto) furosemide 20 mg tablet 20 mg PO QDAY water pill #90 tabs 11/17/24 01/26/25 Rx amlodipine 10 mg tablet 10 mg PO DAILY 11/30/2401/09 History carvedilol 25 mg tablet 25 mg PO DAILY 11/30/2401/09 History cholecalciferol (vitamin D3) 1,250 1,250 mcg PO QWEEK 11/30/24 01/18/25 History mcg (50,000 unit) capsule insulin degludec 100 unit/mL (3 7 unit subcut Q24H amara betes 11/30/24 11/30/24 History mL) subcutaneous pen (Tresiba FlexTouch U-100 insulin) tirzepatide 5 mg/0.5 mL 5 mg (0.5 mL) subcut QWEEK # 2 mL 12/29/24 01/21/25 Rx subcutaneous pen injector (Alanaro) dapagliflozin propanediol 10 mg 10 mg PO DAILY 5 01/26/25 History tablet (Farxiga) gabapentin 600 mg tablet 600 mg PO DAILY 01/26/25 History gabapentin 800 mg tablet 800 mg PO QHS 01/26/2501/25 History insulin lispro 100 unit/mL 10 unit subcut TID 01/26/25 01/26/25 History subcutaneous pen (Humalog KwikPen (U-100) Insulin) Allergy/AdvReac Type Severity Reaction Status Date / Time red dye Allergy Hives Verified 01/26/25 11:33 Gaoqxhq-NHB-KrE Reductase AdvReac Severe Myalgias Verified 01/26/25 11:33 Inhibitor (Ynycowe-Pvw-Nqg Reductase Inhibitor) Family History Father , Lung [...] feel safe at home: Yes ROS ROS Narrative General: Denies fever/chills HENT: Has frontal headache, little bit better today but has been present since yesterday, denies stuffy nose, denies sore throat EYES: Has some black dots in her right vision but it slowly clearing resp: Denies cough, denies shortness of breath Cardiac: Denies chest pain GI: Denies abdominal pain, denies changes in bowel, some chronic constipation, denies nausea/vomiting : Denies changes in urination Extremity: Denies new swelling MSK: Denies new or focal weakness Neuro: Denies any new numbness/tingling, some chronic neuropathy in right lower extremity Heme: Denies any bleeding or bruising Skin: Denies rashes Psychiatric: No complaints voiced Vital Signs Vital Signs Vital Signs: 01/26/25 11:33 01/26/25 13:28 01/26/25 14:00 Temperature 98.0 F Temperature Source Oral Pulse Rate 124 H 60 61 Respiratory Rate 16 14 16 Blood Pressure 117/80 110/64 139/73 H Blood Pressure Mean 92 79 95 Pulse Ox 95 93 95 Oxygen Delivery Method Room Air Weight Weight: 117.934 kg Body Mass Index (BMI) 44.6 Physical Exam Narrative General: Alert, oriented, no apparent distress HEENT: Atraumatic, normocephalic Eyes: Anicteric, normal conjunctiva, extraocular movements intact, right pupil larger than left pupil Neck: Supple Respiratory: Clear to auscultation bilaterally, normal respiratory effort Cardiovascular: Regular rate and rhythm GI: Soft, nontender, nondistended Extremities: No edema Musculoskeletal: Strength 5 out of 5 in right upper extremity, 5 out of 5 left upper extremity, 5 out of 5 right lower extremity, 5 out of 5 left lower extremity Neuro: Query very slight flattening of right nasolabial fold, otherwise no overtfocal neurological deficits, cranial nerves II through XII intact, [id number]-bnyo without significant difficulty bilaterally Skin: No rashes appreciated Psych: Cooperative Results Lab / Micro Data 01/26/25 12:22 01/26/25 12:22 Labs: Laboratory Results - last 24 hr 01/26/25 12:22: WBC 6.0, RBC 4.57, Hgb 13.2, Hct 40.8, MCV 89.3, MCH 28.9, MCHC 32.4, RDW Std Deviation 42.8, RDW Coeff of Ivet 13.2, Plt Count 278, MPV 9.5, Immature Gran % (Auto) 0.500, Neut % (Auto) 47.9, Lymph % (Auto) 39.4, [place] % (Auto) 9.0, Eos % (Auto) 2.7, Baso % (Auto) 0.5, Absolute Neuts (auto) 2.9, Absolute Lymphs (auto) 2.36, Nucleated RBC % 0, PT 14.0, INR 1.1, Sodium 139, Potassium 4.2, Chloride 105, Carbon Dioxide 22.0, Anion Gap 12, BUN 25 H, Creatinine 1.09, Estim Creat Clear Calc 59.78, Est GFR (MDRD) Non-Af 54 L, BUN/Creatinine Ratio 22.8 H, Glucose 139 H, Calcium 9.4 Imaging Radiology Impression Brain CT 01/26/25 12:27 IMPRESSION: 1. No evidence of intracranial hemorrhage or acute ischemia. 2. Changes of chronic microvascular ischemia and volume loss. Reading Location: [facility] Head/Neck CTA 01/26/25 12:27 IMPRESSION: Minimal plaque formation at the origin of the right and left internal carotid arteries causing minimal narrowing. Reading Location: [id number] Assessment & Plan Assessment/Plan (1) Confusion: PLAN: Plan # Transient episode of confusion -Admit to tele -CT head w/ no acute process -CTA head and neck no LVO -MRI ordered, patient had an MRI in 2023 and that was after her ICD was placed, presume we can proceed with MRI here -NIH q4hr -asa, not on statin due to history of adverse reaction with myalgias -Patient just had echocardiogram done earlier this month, will not repeat -PT/OT/Speech eval -Teleneuro consult ordered -Symptoms were about 24 hours ago given patient's ophthalmologic problems feel it is reasonable to manage blood pressure and not allow permissive hypertension again we are 24 hours out at this point # 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 - Patient seen by Optho today was diagnosed with this, patient reports vision isclearing -She reports no acute management was recommended but she is to see a specialist on Sunday in 2 days #Chronic heart failure with recovered ejection fraction with ICD -Daily weights -I's and O's -Heart healthy diet -Fluid restriction -Continue patients home medications #Type 2 diabetes mellitus -Glucose checks and sliding scale insulin #Depression/anxiety -Continue home medications #NICOLLE - Patient noncompliant with NIPPV for several years #GERD -Continue PPI #Hypertension - Continue medications #DVT ppx: SCDs Dahiana Oakley MD Charges/Coding Visit Charges Inpatient E&M: 31038 Init Hosp L2 01/26/25 1532 <Electronically signed by Dahiana Oakley MD> Cosigner Signature (if applicable): CC: [facility] HUMAN RESOURCES MANAGER MANUFACTURING-C Sarah Toth; Dr. Dahiana Oakley MD~ Signed [facility] Work Phone: Hospital Discharge instructions Additional Instructions 1. You need to walk more 2. When you are sitting you need to elevate your toes above your nose 3. Recommend contacting Dr. Marcum's office for follow-up 4. 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) Procedures US ABD RIGHT UPPER QUADRANT US ABDOMINAL REAL TIME W/IMAGE LIMITED Honorio Quintana MD [address] [id number] [facility] [place] [address] Referral ID Status Reason Start Date Expiration Date V isits Requested Visits Authorized [id number] Closed Auto-Generate d Referral 02/22/2023 03/23/2024 1 1 [facility] for referral (narrative)* Diagnostic Procedure Only (Routine) - Pending Review Specialty Diagnoses / Procedures Referred By Letitia leos Referred To Contact US IMAGING Diagnoses 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) Procedures US ABD RIGHT UPPER QUADRANT US ABDOMINAL REAL TIME W/IMAGE LIMITED Honorio Quintana MD [address] AT [facility] [place] [address] [facility] [address] Referral ID Status Reason Start Date Expiration Date Visits Requested Visits Authorized [id number] Pending Review Auto-Generat ed Referral 11/27/2023 12/26/2024 1 [facility]No reason for referral [place] [facility] [facility] Work Phone: Summary Purpose Family History No Family History Records Found Relationship Condition Age at Onset Recorded Date/T alberto father Malignant neoplasm of lung Unknown mother Malignant neoplasm of breast Unknown brother Malignant neoplasm Unknown Advance Directives No Advanced Directives Records FoundDocuments on File Type Date Recorded Patient Straightener And Aligner Expl anation Advance Directive(s) 03/04/2018 3:54 PM Advance Directive(s) 11/09/2017 6:59 AM Advance Directive(s) 10/24/2017 12:13 PM Advance Directive Response Recorded Date/ Time Advance Directives No July 20, 2017 3:03pm Living Will No June 01 8:57am Power of School Counsellor No June 01, 2022 8:57am Advance Directive Response Recorded Date/ Time Advance Directives No July 20, 2017 4:03pm Living Will No June 01 022 9:57am Power of School Counsellor No June 01, 2022 9:57am Advance Directive Response Recorded Date/ Time Advance Directives No December 28 9:43am Living Will No December 28, 2022 9:43am Power of School Counsellor No December 28 9:43am Advance Directive Response Recorded Date/ Time Advance Directives No December 28 8:43am Living Will No December 28, 2022 8:43am Power of School Counsellor No December 28 8:43am Advance Directive Response Recorded Date/ Time Name of Medical Power of School Counsellor September 13, 2023 3:04pm Advance Directives No December 28 9:43am Living Will No September 13, 2023 3:04pm Power of School Counsellor Yes September 12 3:04pm Advance Directive Response Recorded Date/ Time Living Will No Roxanne 8th, 2 024 9:22pm Do you have a Healthcare Power of School Counsellor? No February 17, 2024 9:22pm Advance Directives No December 28 9:43am Advance Directive Response Recorded Date/ Time Do you have a Healthcare Pow er of School Counsellor? Yes November 30, 2024 12:20pm Name of Medical Power of School Counsellor keila heaton- November 30, 2024 12:20pm Advance Directives No December 28 9:43am Advance Directive Response Recorded Date/ Time Do you have a Healthcare Pow er of School Counsellor? Yes November 30, 2024 12:20pm Name of Medical Power of School Counsellor keila heaton- November 30, 2024 12:20pm Do you have a Healthcare Pow er of School Counsellor? Yes December 28, 2024 4:03pm Name of Medical Power of School Counsellor Keila Prema December 28, 2024 4:03pm Advance Directives No December 28 9:43am Advance Directive Response Recorded Date/ Time Do you have a Healthcare Pow er of School Counsellor? Yes November 30, 2024 12:20pm Name of Medical Power of School Counsellor keila heaton- November 30, 2024 12:20pm Do you have a Healthcare Pow er of School Counsellor? Yes December 28, 2024 4:03pm Name of Medical Power of School Counsellor Keila Pierre December 28, 2024 4:03pm Do you have a Healthcare Pow er of School Counsellor? No January 26, 2025 11:31am Advance Directives No December 28 9:43am Advance Directive Response Recorded Date/ Time Do you have a Healthcare Pow er of School Counsellor? Yes November 30, 2024 12:20pm Name of Medical Power of School Counsellor keila heaton- November 30, 2024 12:20pm Do you have a Healthcare Pow er of School Counsellor? Yes December 28, 2024 4:03pm Name of Medical Power of School Counsellor Keila Pierre December 28, 2024 4:03pm Do you have a Healthcare Pow er of School Counsellor? Yes January 26, 2025 4:54pm Advance Directives No December 28 9:43am Chief [...] II Near syncope Atherosclerotic heart disease of nikolai coronary artery without angina pectoris Cardiac defibrillator [...] Obesity (BMI 30-39.9) Atherosclerotic heart disease of nikolai coronary artery without angina pectoris Cardiac defibrillator in situ Chronic systolic (congestive) heart failure Dilated cardiomyopathy Essential hypertension Pure hypercholesterolemia Depression Diabetes mellitus, type II Obesity (BMI 30-39.9) Chief Complaint 3 M FU 3 M FU CHEST PAIN Reason for Visit Atherosclerotic hear t disease of nikolai coronary artery without angina pectoris Cardiac defibrillator [...] Admit Date Atherosclerotic heart diseas e of nikolai coronary artery without angina pectoris July 02, [...] Admit Date Atherosclerotic heart diseas e of nikolai coronary artery without angina pectoris July 02, [...] M FU December 25, 2024 2:19 pm Chief Complaint Admit Date Pacer Check Remote October 13, 2024 3:32am 3 M FU October 23, 2024 1:29p m SWELLING November 30, 2024 11:3 8am 6 M FU December 25, 2024 2:19 pm rash, itching December 28, 2024 3:38 pm Reason for Visit Admit Date CKD (chronic kidney disease) stage 3, GF R 30-59 ml/min October 23, 2024 1:29pm Diabetes mellitus, type II October 23 1:29pm Essential hypertension October 23, 2024 1: 29pm Hyperlipidemia October 23, 2024 1:29p m Microalbuminuria due to type 2 diabetes mellitus October 23, 2024 1:29pm Obesity October 23, 2024 1:29p m Atherosclerotic heart diseas e of nikolai coronary artery without angina pectoris December 25, 2024 2:19pm Chronic systolic (congestive) heart fail ure December 25, 2024 2:19pm Dilated cardiomyopathy December 25, 2024 2 :19pm Essential hypertension December 25, 2024 2 :19pm Pure hypercholesterolemia December 25 2:19pm Cardiac defibrillator in situ December 25, 2024 2:19pm Chief Complaint Admit Date Pacer Check Remote October 13, 2024 3:32am 3 M FU October 23, 2024 1:29p m SWELLING November 30, 2024 11:3 8am 6 M FU December 25, 2024 2:19 pm rash, itching December 28, 2024 3:38 pm Pacer Check Remote January 12, 2025 11: 21am dilated cardiomyopathy January 19, 2025 2:57pm Amb Documentation January 20, 2025 12 :39pm Chief Complaint Admit Date Pacer Check Remote October 13, 2024 3:32am 3 M FU October 23, 2024 1:29p m SWELLING November 30, 2024 11:3 8am 6 M FU December 25, 2024 2:19 pm rash, itching December 28, 2024 3:38 pm Pacer Check Remote January 12, 2025 11: 21am dilated cardiomyopathy January 19, 2025 2:57pm Amb Documentation January 20, 2025 12 :39pm TIZ RULE OUT January 26, 2025 3: 07pm Reason for Visit Admit Date CKD (chronic kidney disease) stage 3, GF R 30-59 ml/min October 23, 2024 1:29pm Diabetes mellitus, type II October 23 1:29pm Essential hypertension October 23, 2024 1: 29pm Hyperlipidemia October 23, 2024 1:29p m Microalbuminuria due to type 2 diabetes mellitus October 23, 2024 1:29pm Obesity October 23, 2024 1:29p m Atherosclerotic heart diseas e of nikolai coronary artery without angina pectoris December 25, 2024 2:19pm Chronic systolic (congestive) heart fail ure December 25, 2024 2:19pm Dilated cardiomyopathy December 25, 2024 2 :19pm Essential hypertension December 25, 2024 2 :19pm Pure hypercholesterolemia December 25 2:19pm Cardiac defibrillator in situ December 25, 2024 2:19pm Confusion January 26, 2025 3: 07pm Chief Complaint Admit Date Pacer Check Remote October 13, 2024 3:32am 3 M FU October 23, 2024 1:29p m SWELLING November 30, 2024 11:3 8am 6 M FU December 25, 2024 2:19 pm rash, itching December 28, 2024 3:38 pm Pacer Check Remote January 12, 2025 11: 21am dilated cardiomyopathy January 19, 2025 2:57pm Amb Documentation January 20, 2025 12 :39pm TIZ RULE OUT January 26, 2025 3: 07pm MRI programming in MRI January 27, 2025 10:20am TIZ RULE OUT January 27, 2025 1: 59pm Reason for Visit Admit Date CKD (chronic kidney disease) stage 3, GF R 30-59 ml/min October 23, 2024 1:29pm Diabetes mellitus, type II October 23 1:29pm Essential hypertension October 23, 2024 1: 29pm Hyperlipidemia October 23, 2024 1:29p m Microalbuminuria due to type 2 diabetes mellitus October 23, 2024 1:29pm Obesity October 23, 2024 1:29p m Atherosclerotic heart diseas e of nikolai coronary artery without angina pectoris December 25, 2024 2:19pm Chronic systolic (congestive) heart fail ure December 25, 2024 2:19pm Dilated cardiomyopathy December 25, 2024 2 :19pm Essential hypertension December 25, 2024 2 :19pm Pure hypercholesterolemia December 25 2:19pm Cardiac defibrillator in situ December 25, 2024 2:19pm Confusion January 26, 2025 3: 07pm Chronic systolic (congestive) heart fail ure January 27, 2025 10:20am Dilated cardiomyopathy January 27, 2025 10:20am Chief Complaint Admit Date Pacer Check Remote October 13, 2024 3:32am 3 M FU October 23, 2024 1:29p m SWELLING November 30, 2024 11:3 8am 6 M FU December 25, 2024 2:19 pm rash, itching December 28, 2024 3:38 pm Pacer Check Remote January 12, 2025 11: 21am dilated cardiomyopathy January 19, 2025 2:57pm Amb Documentation January 20, 2025 12 :39pm TIZ RULE OUT January 26, 2025 3: 07pm Pacer Check Remote January 27, 2025 9: 00am MRI programming in MRI January 27, 2025 10:20am TIZ RULE OUT January 27, 2025 1: 59pm Chief Complaint Admit Date 3 M FU October 23, 2024 1:29p m SWELLING November 30, 2024 11:3 8am 6 M FU December 25, 2024 2:19 pm rash, itching December 28, 2024 3:38 pm Pacer Check Remote January 12, 2025 11: 21am dilated cardiomyopathy January 19, 2025 2:57pm Amb Documentation January 20, 2025 12 :39pm TIZ RULE OUT January 26, 2025 3: 07pm Pacer Check Remote January 27, 2025 9: 00am MRI programming in MRI January 27, 2025 10:20am TIZ RULE OUT January 27, 2025 1: 59pm Pacer Check Remote February 16, 2025 9:35am Additional Source Comments INFORMATION SOURCE (unrecogn ized section and content) DATE CREATED AUTHOR 09/28/2018 [facility] DATE CREATED AUTHOR AUTHOR'S ORGANIZ ATION 02/21/2020 [facility] DATE CREATED AUTHOR AUTHOR'S ORGANIZ ATION 12/02/2023 [facility] DATE CREATED AUTHOR AUTHOR'S ORGANIZ ATION 04/12/2025 [facility] Source Comments (unrecognize d section and content) In the event this informatio n is protected by the Federal Confidentiality of Alcohol and Drug Abuse Patient Records regulations: The Federal rules restrict any use of the information to criminally investigate or prosecute any alcohol or drug abuse patient.[facility] the event this information is protected by the Federal Confidentiality of Alcohol and Drug Abuse Patient Records regulations: The Federal rules restrict any use of the information to criminally investigate or prosecute any alcohol or drug abuse patient.[facility] the event this information is protected by the Federal Confidentiality of Alcohol and Drug Abuse Patient Records regulations: The Federal rules restrict any use of the information to criminally investigate or prosecute any alcohol or drug abuse patient.[facility] Reason for Visit (unrecogniz ed section and content) Reason Comments Nail care Diabetic Foot Care blister on right great toe Reason Comments Radiology US Specialty Diagnoses / Procedures Referred By Contac t Referred To Contact US IMAGING Diagnoses 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) Procedures US ABD RIGHT UPPER QUADRANT US ABDOMINAL REAL TIME W/IMAGE LIMITED Honorio Quintana MD [address] [place] [address] [place] [id number] Referral ID Status Reason Start Date Expiration Date V isits Requested Visits Authorized [id number] Closed Auto-Generate d Referral 02/22/2023 03/23/2024 1 1 Reason Comments Malignant Melanoma (Choroid) Follow Up s /p plaque + TTT OS 11/12/2017 Care Teams (unrecognized sec tion and content) Voltage Inspector Relationship Specialty Start Date End Date Shante Parada PCP - General Family Practice 03/27/17 Ovi Olivares MD [address] [place] [address] Referring Ophthalmology 03/22/17 Kristen Harrison (Historical), PIZZAMAKER Referring Orthopedics 08/19/20 Team Status: Active Member Role Status Dates [facility] Family Provider Active [facility] Primary Care Provider A ctive Team Status: Inactive Member Role Status Dates Sarah Toth HUMAN RESOURCES MANAGER MANUFACTURING, HUMAN RESOURCES MANAGER MANUFACTURING-C Other Provider Active [facility] Primary C are Provider, Attending Provider, Referring Provider Active Team Status: Inactive Member Role Status Dates Dr. Genie Chambers Primary Care Provider Active Dr. Antonio Herr MD Attending Provider, Emergency Pro vider Active Team Status: Inactive Member Role Status Dates [facility] Primary Care Provider A ctive HEIDI PATEL NP-C Attending Provider, Referring Provider Active Team Status: Active Member Role Status Dates [facility] Primary C are Provider, Attending Provider, Referring Provider Active Sarah Toth HUMAN RESOURCES MANAGER MANUFACTURING, HUMAN RESOURCES MANAGER MANUFACTURING-C Other Provider Active Team Status: Inactive Member Role Status Dates [facility] Primary C are Provider, Attending Provider, Referring Provider Active Sarah Toth HUMAN RESOURCES MANAGER MANUFACTURING, HUMAN RESOURCES MANAGER MANUFACTURING-C Other Provider Active Team Status: Active Member Role Status Dates [facility] Family Provider Active Sarah Toth HUMAN RESOURCES MANAGER MANUFACTURING, HUMAN RESOURCES MANAGER MANUFACTURING-C Primary Care Provider Active Team Status: Inactive Member Role Status Dates [facility] Primary Care Provider, Referring Provider Active Lavonne Bridges NP-C Attending Provider Active Team Status: Inactive Member Role Status Dates [facility] Primary Care Provider, Referring Provider Active Lico Noel HUMAN RESOURCES MANAGER MANUFACTURING, HUMAN RESOURCES MANAGER MANUFACTURING-C Attending Provider Active Team Status: Inactive Member Role Status Dates [facility] Primary Care Provider A ctive Dr. Nathanael Corrales MD Attending Provider Active Team Status: Inactive Member Role Status Dates [facility] Referring Provider Ivanashiv yunior Rachelmarilin Field Attending Provider Active Sarah Toth HUMAN RESOURCES MANAGER MANUFACTURING, HUMAN RESOURCES MANAGER MANUFACTURING-C Primary Care Provider Active Team Status: Inactive Member Role Status Dates [facility] Primary Care Provider A ctive Dr. Rhea Barber , DO Attending Provider, Emergency Pro vider Active Team Status: Inactive Member Role Status Dates aSrah Toth HUMAN RESOURCES MANAGER MANUFACTURING, HUMAN RESOURCES MANAGER MANUFACTURING-C Primary Care Provider Active Lico Noel HUMAN RESOURCES MANAGER MANUFACTURING, HUMAN RESOURCES MANAGER MANUFACTURING-C Attending Provider, Referring P carlos eduardo Active Voltage Inspector Relationship Specialty Start Date End Date Shante Parada [address] [place] [phone] PCP - General Family Medicine 03/27/17 Ovi Olivares MD [address] [place] [id number] Referring Ophthalmology 03/22/17 Kristen Harrison (Historical), PIZZAMAKER [address] [place] [address] Referring Orthopedics 08/19/20 Team Status: Inactive Member Role Status Dates [facility] Primary Care Provider A ctive Dr. Justyn Lu , DO Emergency Provider Active Voltage Inspector Relationship Specialty Start Date End Date Shante Parada [address] [place] [phone] PCP - General Family Medicine 03/27/17 Ovi Olivares MD [address] [place] [phone] Referring Ophthalmology 03/22/17 Kristen Harrison (Historical), PIZZAMAKER [address] [place] [address] Referring Orthopedics 08/19/20 Team Status: Active Member Role Status Dates Sarah KIDDC, HUMAN RESOURCES MANAGER MANUFACTURING-C Primary Care Provider Activ e Team Status: Inactive Member Role Status Dates Sarah KIDDC, HUMAN RESOURCES MANAGER MANUFACTURING-C Primary Care Provider Activ e Start: July 02, 2024 End: July 02, 2024 Sarah Navneet BERNABEChele, HUMAN RESOURCES MANAGER MANUFACTURING-C Attending Provider Active Start: July 02, 2024 End: July 02, 2024 Sarah Navneet VSC, HUMAN RESOURCES MANAGER MANUFACTURING-C Referring Provider Active Start: July 02, 2024 End: July 02, 2024 Team Status: Inactive Member Role Status Dates Sarah KIDDC, HUMAN RESOURCES MANAGER MANUFACTURING-C Primary Care Provider Activ e Start: July 02, 2024 End: July 02, 2024 Sarah Navneet BERNABEC, HUMAN RESOURCES MANAGER MANUFACTURING-C Referring Provider Active Start: July 02, 2024 End: July 02, 2024 Kaye Burris PA, PA Attending Provider Active Start: July 02, 2024 End: July 02, 2024 Team Status: Inactive Member Role Status Dates Sarah KIDDC, HUMAN RESOURCES MANAGER MANUFACTURING-C Primary Care Provider Activ e Start: July 14, 2024 End: July 14, 2024 Dr. Misbah Marcum MD Attending Provider Active S tart: July 14, 2024 End: July 14, 2024 Dr. Misbah Marcum MD Referring Provider Active S tart: July 14, 2024 End: July 14, 2024 Team Status: Inactive Member Role Status Dates Sarah Navneet BERNABEChele, HUMAN RESOURCES MANAGER MANUFACTURING-C Primary Care Provider Activ e Start: July 16, 2024 End: July 16, 2024 Sarah KNAPP, HUMAN RESOURCES MANAGER MANUFACTURING-C Referring Provider Active Start: July 16, 2024 End: July 16, 2024 Lavonne Bridges HUMAN RESOURCES MANAGER MANUFACTURING-C Attending Provider Active Start: July 16, 2024 End: July 16, 2024 Team Status: Inactive Member Role Status Dates Sarah Navneet BERNABEC, HUMAN RESOURCES MANAGER MANUFACTURING-C Primary Care Provider Activ e Start: October 13, 2024 End: October 13, 2024 Dr. Misbah Marcum MD Attending Provider Active S tart: October 13, 2024 End: October 13, 2024 Team Status: Active Member Role Status Dates Sarah Toth VSC, HUMAN RESOURCES MANAGER MANUFACTURING-C Primary Care Provider Activ e Start: October 22, 2024 Sarah KIDDC, HUMAN RESOURCES MANAGER MANUFACTURING-C Attending Provider Active Start: October 22, 2024 Team Status: Inactive Member Role Status Dates Sarah KIDDC, HUMAN RESOURCES MANAGER MANUFACTURING-C Primary Care Provider Activ e Start: October 23, 2024 End: October 23, 2024 Sarah KIDDC, HUMAN RESOURCES MANAGER [employer]UFA[employer]URING-C Referring Provider Active Start: October 23, 2024 End: October 23, 2024 Lavonne Bridges HUMAN RESOURCES MANAGER MANUFACTURING-C Attending Provider Active Start: October 23, 2024 End: October 23, 2024 Team Status: Inactive Member Role Status Dates Sarah KIDDC, HUMAN RESOURCES MANAGER MANUFACTURING-C Primary Care Provider Activ e Start: October 22, 2024 End: October 22, 2024 Sarah KIDDC, HUMAN RESOURCES MANAGER MANUFACTURING-C Attending Provider Active Start: October 22, 2024 End: October 22, 2024 Team Status: Inactive Member Role Status Dates Sarah KIDDC, HUMAN RESOURCES MANAGER MANUFACTURING-C Primary Care Provider Activ e Start: October 13, 2024 End: October 13, 2024 Dr. Misbah Marcum MD Attending Provider Active S tart: October 13, 2024 End: October 13, 2024 Dr. Misbah Marcum MD Referring Provider Active S tart: October 13, 2024 End: October 13, 2024 Team Status: Inactive Member Role Status Dates Sarah KIDDC, HUMAN RESOURCES MANAGER MANUFACTURING-C Primary Care Provider Activ e Start: November 30, 2024 End: November 30, 2024 Dr. Juventino Kern MD Emergency Provider Active Sta rt: November 30, 2024 End: November 30, 2024 Team Status: Active Member Role/Relationship Status Dates Sarah KIDDC, HUMAN RESOURCES MANAGER MANUFACTURING-C Primary Care Provider Activ e Team Status: Inactive Member Role/Relationship Status Dates Sarah KIDDC, HUMAN RESOURCES MANAGER MANUFACTURING-C Primary Care Provider Activ e Start: October 13, 2024 End: October 13, 2024 Dr. Misbah Marcum MD Attending Provider Active S tart: October 13, 2024 End: October 13, 2024 Dr. Misbah Marcum MD Referring Provider Active S tart: October 13, 2024 End: October 13, 2024 Team Status: Inactive Member Role/Relationship Status Dates Sarah KIDDC, HUMAN RESOURCES MANAGER MANUFACTURING-C Primary Care Provider Activ e Start: October 22, 2024 End: October 22, 2024 Sarah KNAPP, HUMAN RESOURCES MANAGER MANUFACTURING-C Attending Provider Active Start: October 22, 2024 End: October 22, 2024 Team Status: Inactive Member Role/Relationship Status Dates Sarah KIDDC, HUMAN RESOURCES MANAGER MANUFACTURING-C Primary Care Provider Activ e Start: October 23, 2024 End: October 23, 2024 Sarah KIDDC, HUMAN RESOURCES MANAGER MANUFACTURING-C Referring Provider Active Start: October 23, 2024 End: October 23, 2024 Lavonne Bridges HUMAN RESOURCES MANAGER MANUFACTURING-C Attending Provider Active Start: October 23, 2024 End: October 23, 2024 Team Status: Inactive Member Role/Relationship Status Dates Sarah KIDDC, HUMAN RESOURCES MANAGER MANUFACTURING-C Primary Care Provider Activ e Start: November 30, 2024 End: November 30, 2024 Dr. Juventino Kern MD Attending Provider Active Sta rt: November 30, 2024 End: November 30, 2024 Dr. Juventino Kern MD Emergency Provider Active Sta rt: November 30, 2024 End: November 30, 2024 Team Status: Inactive Member Role/Relationship Status Dates Sarah KIDDC, HUMAN RESOURCES MANAGER MANUFACTURING-C Primary Care Provider Activ e Start: December 25, 2024 End: December 25, 2024 Sarah KIDDC, HUMAN RESOURCES MANAGER MANUFACTURING-C Referring Provider Active Start: December 25, 2024 End: December 25, 2024 Dr. Misbah Marcum MD Attending Provider Active S tart: December 25, 2024 End: December 25, 2024 Team Status: Inactive Member Role/Relationship Status Dates Sarah KIDDC, HUMAN RESOURCES MANAGER MANUFACTURING-C Primary Care Provider Activ e Start: December 28, 2024 End: December 28, 2024 Dr. Rhea Barber , Emergency Provider Active S tart: December 28, 2024 End: December 28, 2024 Team Status: Inactive Member Role/Relationship Status Dates Sarah Navneet BERNABEC, HUMAN RESOURCES MANAGER MANUFACTURING-C Primary Care Provider Activ e Start: December 28, 2024 End: December 28, 2024 Dr. Rhea Barber DO Attending Provider Active S tart: December 28, 2024 End: December 28, 2024 Dr. Rhea Barber , Emergency Provider Active S tart: December 28, 2024 End: December 28, 2024 Team Status: Inactive Member Role/Relationship Status Dates Sarah Toth V[facility], HUMAN RESOURCES MANAGER MANUFACTURING-C Primary Care Provider Activ e Start: January 12, 2025 End: January 12, 2025 Dr. Misbah Marcum MD Attending Provider Active S tart: January 12, 2025 End: January 12, 2025 Team Status: Active Member Role/Relationship Status Dates Sarah Toth VSC, HUMAN RESOURCES MANAGER MANUFACTURING-C Primary Care Provider Activ e Start: January 19, 2025 Dr. Misbah Marcum MD Attending Provider Active S tart: January 19, 2025 Dr. Misbah Marcum MD Referring Provider Active S tart: January 19, 2025 Team Status: Active Member Role/Relationship Status Dates Sarah KIDDC, HUMAN RESOURCES MANAGER MANUFACTURING-C Primary Care Provider Activ e Start: January 19, 2025 Dr. Misbah Marcum MD Attending Provider Active S tart: January 19, 2025 Team Status: Active Member Role/Relationship Status Dates Sarah Toth VSC, HUMAN RESOURCES MANAGER MANUFACTURING-C Primary Care Provider Activ e Start: January 20, 2025 Lico Noel HUMAN RESOURCES MANAGER MANUFACTURING, HUMAN RESOURCES MANAGER MANUFACTURING-C Attending Provider Active Start: January 20, 2025 Team Status: Inactive Member Role/Relationship Status Dates Sarah Toth VSC, HUMAN RESOURCES MANAGER MANUFACTURING-C Primary Care Provider Activ e Start: January 19, 2025 End: January 19, 2025 Dr. Misbah Marcum MD Attending Provider Active S tart: January 19, 2025 End: January 19, 2025 Dr. Misbah Marcum MD Referring Provider Active S tart: January 19, 2025 End: January 19, 2025 Team Status: Active Member Role/Relationship Status Dates Sarah KIDDC, HUMAN RESOURCES MANAGER MANUFACTURING-C Primary Care Provider Activ e Start: January 26, 2025 Dr. Cornelia Murillo MD Emergency Provider Active S tart: January 26, 2025 Dr. Dahiana Oakley MD Admit Provider Active Star t: January 26, 2025 Dr. Dahiana Oakley MD Attending Provider Active Start: January 26, 2025 Dr. Dahiana Oakley MD Other Provider Active Star t: January 26, 2025 Team Status: Inactive Member Role/Relationship Status Dates Sarah Toth VSC, HUMAN RESOURCES MANAGER MANUFACTURING-C Primary Care Provider Activ e Start: January 26, 2025 End: January 27, 2025 Dr. Cornelia Murillo MD Emergency Provider Active S tart: January 26, 2025 End: January 27, 2025 Dr. Dahiana Oakley MD Admit Provider Active Star t: January 26, 2025 End: January 27, 2025 Dr. Dahiana Oakley MD Other Provider Active Star t: January 26, 2025 End: January 27, 2025 Cesar Parekh MD Other Provider Active Start: 2024 End: January 27, 2025 Dr. Merlyn Hardy MD Other Provider Active Start: January 26, 2025 End: January 27, 2025 Annita Barba MD Other Provider Active Start : January 26, 2025 End: January 27, 2025 Dr. Samra Samano DO Other Provider Active St art: January 26, 2025 End: January 27, 2025 Dr. Maude Anderson MD Other Provider Active Start: January 26, 2025 End: January 27, 2025 Dr. Ferdinand Cruz MD Other Provider Active Sta rt: January 26, 2025 End: January 27, 2025 Dr. Tati Hardwick MD Other Provider Active Start : January 26, 2025 End: January 27, 2025 Dr. Sunny Connelly MD Other Provider Active Start: January 26, 2025 End: January 27, 2025 Dr. Keila Chacon MD Other Provider Active Start : January 26, 2025 End: January 27, 2025 Dr. Arturo Fuller MD Other Provider Active Sta rt: January 26, 2025 End: January 27, 2025 Sherley Rodriguez MD Other Provider Active Start : January 26, 2025 End: January 27, 2025 Dr. Shaka Lerner MD Other Provider Active St art: January 26, 2025 End: January 27, 2025 Dr. Mary Zuñiga MD Other Provider Active Start : January 26, 2025 End: January 27, 2025 Dr. Serjio Nice MD Other Provider Active Sta rt: January 26, 2025 End: January 27, 2025 Dr. Isabela Alaniz MD Other Provider Active Start: January 26, 2025 End: January 27, 2025 Dr. Dwight Taylor MD Other Provider Active St art: January 26, 2025 End: January 27, 2025 Dr. Joleen Spangler MD Other Provider Active Star t: January 26, 2025 End: January 27, 2025 Dr. Modesto Clements MD Other Provider Active St art: January 26, 2025 End: January 27, 2025 Dr. Zaria Esteban MD Other Provider Active Start: January 26, 2025 End: January 27, 2025 Rand Chamberlain MD Other Provider Active Start: January 26, 2025 End: January 27, 2025 Dr. Sidra Irving MD Attending Provider Active Start: January 26, 2025 End: January 27, 2025 Team Status: Active Member Role/Relationship Status Dates Sarah Toth VSC, HUMAN RESOURCES MANAGER MANUFACTURING-C Primary Care Provider Activ e Start: January 27, 2025 Sarah Toth VSC, HUMAN RESOURCES MANAGER MANUFACTURING-C Referring Provider Active Start: January 27, 2025 Rachel Field Attending Provider Active Start: [facility]2024 Team Status: Active Member Role/Relationship Status Dates Sarah Toth VSC, HUMAN RESOURCES MANAGER MANUFACTURING-C Primary Care Provider Activ e Start: January 27, 2025 Dr. Cornelia Murillo MD Emergency Provider Active S tart: January 27, 2025 Dr. Dahiana Oakley MD Admit Provider Active Star t: January 27, 2025 Dr. Dahiana Oakley MD Other Provider Active Star t: January 27, 2025 Cesar Parekh MD Other Provider Active Start: 2024 Dr. Merlyn Hrady MD Other Provider Active Start: January 27, 2025 Annita Barba MD Other Provider Active Start : January 27, 2025 Dr. Samra Samano DO Other Provider Active St art: January 27, 2025 Dr. Maude Anderson MD Other Provider Active Start: January 27, 2025 Dr. Ferdinand Cruz MD Other Provider Active Sta rt: January 27, 2025 Dr. Tati Hardwick MD Other Provider Active Start : January 27, 2025 Dr. Sunny Connelly MD Other Provider Active Start: January 27, 2025 Dr. Keila Chacon MD Other Provider Active Start : January 27, 2025 Dr. Arturo Fuller MD Other Provider Active Sta rt: January 27, 2025 Sherley Rodriguez MD Other Provider Active Start : January 27, 2025 Dr. Shaka Lerner MD Other Provider Active St art: January 27, 2025 Dr. Mary Zuñiga MD Other Provider Active Start : January 27, 2025 Dr. Serjio Nice MD Other Provider Active Sta rt: January 27, 2025 Dr. Isabela Alaniz MD Other Provider Active Start: January 27, 2025 Dr. Dwight Taylor MD Other Provider Active St art: January 27, 2025 Dr. Joleen Spangler MD Other Provider Active Star t: January 27, 2025 Dr. Modesto Clements MD Other Provider Active St art: January 27, 2025 Dr. Zaria Esteban MD Other Provider Active Start: January 27, 2025 Rand Chamberlain MD Other Provider Active Start: January 27, 2025 Dr. Sidra Irving MD Attending Provider Active Start: January 27, 2025 Dr. Sidra Irving MD Other Provider Active St art: January 27, 2025 Team Status: Inactive Member Role/Relationship Status Dates Sarah Toth VSC, HUMAN RESOURCES MANAGER MANUFACTURING-C Primary Care Provider Activ e Start: January 27, 2025 End: January 27, 2025 Sarah Toth VSC, HUMAN RESOURCES MANAGER MANUFACTURING-C Referring Provider Active Start: January 27, 2025 End: January 27, 2025 Rachel Field Attending Provider Active Start: [facility] 20[facility] End: January 27, 2025 Team Status: Inactive Member Role/Relationship Status Dates Sarah Toth VSC, HUMAN RESOURCES MANAGER MANUFACTURING-C Primary Care Provider Activ e Start: January 27, 2025 End: January 27, 2025 Dr. Misbah Marcum MD Attending Provider Active S tart: January 27, 2025 End: January 27, 2025 Team Status: Inactive Member Role/Relationship Status Dates Sarah Toth VSC, HUMAN RESOURCES MANAGER MANUFACTURING-C Primary Care Provider Activ e Start: January 27, 2025 End: January 27, 2025 Sarah Toth VSC, HUMAN RESOURCES MANAGER MANUFACTURING-C Referring Provider Active Start: January 27, 2025 End: January 27, 2025 Rachel Field Attending Provider Active Start: [facility] 2024 End: January 27, 2025 Team Status: Active Member Role/Relationship Status Dates Sarah Navneet [facility], HUMAN RESOURCES MANAGER MANUFACTURING-C Primary Care Provider Activ e Start: January 27, 2025 Dr. Cornelia Murillo MD Emergency Provider Active S tart: January 27, 2025 Dr. Dahiana Oakley MD Admit Provider Active Star t: January 27, 2025 Dr. Dahiana Oakley MD Other Provider Active Star t: January 27, 2025 Cesar Parekh MD Other Provider Active Start: 2024 Dr. Merlyn Hardy MD Other Provider Active Start: January 27, 2025 Annita Barba MD Other Provider Active Start : January 27, 2025 Dr. Samra Samano DO Other Provider Active St art: January 27, 2025 Dr. Maude Anderson MD Other Provider Active Start: January 27, 2025 Dr. Ferdinand Cruz MD Other Provider Active Sta rt: January 27, 2025 Dr. Tati Hardwick MD Other Provider Active Start : January 27, 2025 Dr. Sunny Connelly MD Other Provider Active Start: January 27, 2025 Dr. Keila Chacon MD Other Provider Active Start : January 27, 2025 Dr. Arturo Fuller MD Other Provider Active Sta rt: January 27, 2025 Sherley Rodriguez MD Other Provider Active Start : January 27, 2025 Dr. Shaka Lerner MD Other Provider Active St art: January 27, 2025 Dr. Mary Zuñiga MD Other Provider Active Start : January 27, 2025 Dr. Serjio Nice MD Other Provider Active Sta rt: January 27, 2025 Dr. Isabela Alaniz MD Other Provider Active Start: January 27, 2025 Dr. Dwight Taylor MD Other Provider Active St art: January 27, 2025 Dr. Joleen Spangler MD Other Provider Active Star t: January 27, 2025 Dr. Modesto Clements MD Other Provider Active St art: January 27, 2025 Dr. Zaria Esteban MD Other Provider Active Start: January 27, 2025 Rand Chamberlain MD Other Provider Active Start: January 27, 2025 Dr. Sidra Irving MD Attending Provider Active Start: January 27, 2025 Dr. Sidra Irving MD Other Provider Active St art: January 27, 2025 Team Status: Inactive Member Role/Relationship Status Dates Sarah KIDDC, HUMAN RESOURCES MANAGER MANUFACTURING-C Primary Care Provider Activ e Start: October 22, 2024 End: October 22, 2024 Sarah Toth VSC, HUMAN RESOURCES MANAGER MANUFACTURING-C Attending Provider Active Start: October 22, 2024 End: October 22, 2024 Team Status: Inactive Member Role/Relationship Status Dates Sarah Toth VSC, HUMAN RESOURCES MANAGER MANUFACTURING-C Primary Care Provider Activ e Start: October 23, 2024 End: October 23, 2024 Sarah KIDDC, HUMAN RESOURCES MANAGER MANUFACTURING-C Referring Provider Active Start: October 23, 2024 End: October 23, 2024 Lavonne Bridges HUMAN RESOURCES MANAGER MANUFACTURING-C Attending Provider Active Start: October 23, 2024 End: October 23, 2024 Team Status: Inactive Member Role/Relationship Status Dates Sarah KIDDC, HUMAN RESOURCES MANAGER MANUFACTURING-C Primary Care Provider Activ e Start: November 30, 2024 End: November 30, 2024 Dr. Juventino Kern MD Attending Provider Active Sta rt: November 30, 2024 End: November 30, 2024 Dr. Juventino Kern MD Emergency Provider Active Sta rt: November 30, 2024 End: November 30, 2024 Team Status: Inactive Member Role/Relationship Status Dates Sarah KIDDC, HUMAN RESOURCES MANAGER MANUFACTURING-C Primary Care Provider Activ e Start: December 25, 2024 End: December 25, 2024 Sarah KIDDC, HUMAN RESOURCES MANAGER MANUFACTURING-C Referring Provider Active Start: December 25, 2024 End: December 25, 2024 Dr. Misbah Marcum MD Attending Provider Active S tart: December 25, 2024 End: December 25, 2024 Team Status: Inactive Member Role/Relationship Status Dates Sarah KIDDC, HUMAN RESOURCES MANAGER MANUFACTURING-C Primary Care Provider Activ e Start: December 28, 2024 End: December 28, 2024 Dr. Rhea Barber DO Attending Provider Active S tart: December 28, 2024 End: December 28, 2024 Dr. Rhea Barber DO Emergency Provider Active S tart: December 28, 2024 End: December 28, 2024 Team Status: Inactive Member Role/Relationship Status Dates Sarah KIDDC, HUMAN RESOURCES MANAGER MANUFACTURING-C Primary Care Provider Activ e Start: January 12, 2025 End: January 12, 2025 Dr. Misbah Marcum MD Attending Provider Active S tart: January 12, 2025 End: January 12, 2025 Dr. Misbah Marcum MD Referring Provider Active S tart: January 12, 2025 End: January 12, 2025 Team Status: Inactive Member Role/Relationship Status Dates Sarah KIDDC, HUMAN RESOURCES MANAGER MANUFACTURING-C Primary Care Provider Activ e Start: January 19, 2025 End: January 19, 2025 Dr. Misbah Marcum MD Attending Provider Active S tart: January 19, 2025 End: January 19, 2025 Dr. Misbah Marcum MD Referring Provider Active S tart: January 19, 2025 End: January 19, 2025 Team Status: Active Member Role/Relationship Status Dates Sarah Toth VSC, HUMAN RESOURCES MANAGER MANUFACTURING-C Primary Care Provider Activ e Start: January 19, 2025 Dr. Misbah Marcum MD Attending Provider Active S tart: January 19, 2025 Team Status: Active Member Role/Relationship Status Dates Sarah Toth VSC, HUMAN RESOURCES MANAGER MANUFACTURING-C Primary Care Provider Activ e Start: January 20, 2025 Lico Noel HUMAN RESOURCES MANAGER MANUFACTURING, HUMAN RESOURCES MANAGER MANUFACTURING-C Attending Provider Active Start: January 20, 2025 Team Status: Inactive Member Role/Relationship Status Dates Sarah Toth VSC, HUMAN RESOURCES MANAGER MANUFACTURING-C Primary Care Provider Activ e Start: January 26, 2025 End: January 27, 2025 Dr. Cornelia Murillo MD Emergency Provider Active S tart: January 26, 2025 End: January 27, 2025 Dr. Dahiana Oakley MD Admit Provider Active Star t: January 26, 2025 End: January 27, 2025 Dr. Dahiana Oakley MD Other Provider Active Star t: January 26, 2025 End: January 27, 2025 Cesar Parekh MD Other Provider Active Start: Tanya 2024 End: January 27, 2025 Dr. Merlyn Hardy MD Other Provider Active Start: January 26, 2025 End: January 27, 2025 Annita Barba MD Other Provider Active Start : January 26, 2025 End: January 27, 2025 Dr. Samra Samano DO Other Provider Active St art: January 26, 2025 End: January 27, 2025 Dr. Maude Anderson MD Other Provider Active Start: January 26, 2025 End: January 27, 2025 Dr. Ferdinand Cruz MD Other Provider Active Sta rt: January 26, 2025 End: January 27, 2025 Dr. Tati Hardwick MD Other Provider Active Start : January 26, 2025 End: January 27, 2025 Dr. Sunny Connelly MD Other Provider Active Start: January 26, 2025 End: January 27, 2025 Dr. Keila Chacon MD Other Provider Active Start : January 26, 2025 End: January 27, 2025 Dr. Arturo Fuller MD Other Provider Active Sta rt: January 26, 2025 End: January 27, 2025 Sherley Rodriguez MD Other Provider Active Start : January 26, 2025 End: January 27, 2025 Dr. Shaka Lerner MD Other Provider Active St art: January 26, 2025 End: January 27, 2025 Dr. Mary Zuñiga MD Other Provider Active Start : January 26, 2025 End: January 27, 2025 Dr. Serjio Nice MD Other Provider Active Sta rt: January 26, 2025 End: January 27, 2025 Dr. Isabela Alaniz MD Other Provider Active Start: January 26, 2025 End: January 27, 2025 Dr. Dwight Taylor MD Other Provider Active St art: January 26, 2025 End: January 27, 2025 Dr. Joleen Spangler MD Other Provider Active Star t: January 26, 2025 End: January 27, 2025 Dr. Modesto Clements MD Other Provider Active St art: January 26, 2025 End: January 27, 2025 Dr. Zaria Esteban MD Other Provider Active Start: January 26, 2025 End: January 27, 2025 Rand Chamberlain MD Other Provider Active Start: January 26, 2025 End: January 27, 2025 Dr. Sidra Irving MD Attending Provider Active Start: January 26, 2025 End: January 27, 2025 Team Status: Inactive Member Role/Relationship Status Dates Sarah KIDDC, HUMAN RESOURCES MANAGER MANUFACTURING-C Primary Care Provider Activ e Start: January 27, 2025 End: January 27, 2025 Dr. Misbah Marcum MD Attending Provider Active S tart: January 27, 2025 End: January 27, 2025 Team Status: Inactive Member Role/Relationship Status Dates Sarah KIDDC, HUMAN RESOURCES MANAGER MANUFACTURING-C Primary Care Provider Activ e Start: February 16, 2025 End: February 16, 2025 Dr. Misbah Marcum MD Attending Provider Active S tart: February 16, 2025 End: February 16, 2025 Goals (unrecognized section and content) Goals may [...] BE BASED ON THE PRIMARY CLINICAL RECORDS. [facility] provides no warranty or guarantee of the accuracy or completeness of information in this document.
== END | disposition home or self-care (01) ==
LOC: MTRAD 14:06
PROVIDERS: PCP Nurse Practitioner Family; Referring Provider Physician Assistant; Visit Provider Physician Assistant
DX: M25.551 Pain in right hip (principal)
CPT/HCPCS: 73502

== ENCOUNTER 2025-05-29 17:37 | Emergency (ER) | payer MEDICARE, SELFPAY ==
[2025-05-29 17:38] VITALS: PULSE 67; RESP 16; TEMP 36.8; O2SAT 99; BMI 44.6
--- NOTE | 2025-05-29 18:19 | EX.ED.DYSGE1 ---
HPI History of Present Illness Chief Complaint: Hypoglycemia Informant: patient and EMS Narrative Narrative: Patient is a 69-year-old female with a history of DM, presenting to the ED with 2 recurrent hypoglycemic episodes over the past 24 hours. - Reports two episodes of hypoglycemia within the last 24 hours, with blood glucose levels dropping to 55 mg/dL at midnight and 54 mg/dL today around 1600. - Both episodes were managed at home, but the frequency prompted her to call EMS. - Currently on Mounjaro for the past 3 months, with a dosage increase 2 months ago; receives weekly injections. - Has reduced insulin dosage over the past month due to lower blood glucose readings; last insulin dose was 5 units of Humalog at 1530 today. - Prior to insulin administration, blood glucose was 135 mg/dL; consumed a chicken salad sandwich and chocolate milk with the insulin. - Experienced dizziness, diaphoresis, and elevated blood pressure during the hypoglycemic episode today; blood glucose dropped to 50 mg/dL despite consuming chocolate with peanut butter and additional chocolate milk. - EMS arrived when blood glucose was reportedly 60 mg/dL by her device, but EMS measured it at 90 mg/dL. - Also taking Farxiga; no recent changes in other medications. - Denies recent illness, cough, dysuria, or abdominal pain. - Has not been eating much recently, possibly due to decreased appetite from Mounjaro. [facility] Medical History Contusion of right hip Essential hypertension Elevated troponin History of diabetes mellitus Hx of cardiomyopathy Dysarthria Medication reaction Intractable nausea and vomiting Dizziness Depression Near syncope Vertigo Carotid artery disease Pure hypercholesterolemia Atherosclerotic heart disease of [place] coronary artery without angina pectoris Nonrheumatic mitral (valve) insufficiency Dilated cardiomyopathy Chronic systolic (congestive) heart failure BALWINDER (acute kidney injury) Abnormal electrocardiogram Systolic CHF, acute Hypertension Hyperlipidemia Diabetes mellitus, type II NICOLLE (obstructive sleep apnea) Home Medications ?Medication ?Instructions ?Recorded ?Last Taken ?Type aspirin 81 mg tablet,delayed 81 mg PO DAILY@0800 HEALTH 01/26/17 01/25/25 History release MAINTENANCE magnesium chloride 71.5 mg 71.5 mg PO DAILY suppliment 07/23/20 01/26/25 History (magnesium chloride) tablet,delayed release (Slow-Mag) Handicap Parking Placard #1 ea 05/09/22 Unknown Rx sacubitril 97 mg-valsartan 103 mg 1 tab PO BID HF #180 tabs 11/04/24 01/26/25 Rx tablet (Entresto) furosemide 20 mg tablet 20 mg PO QDAY water pill #90 tabs 11/17/24 01/26/25 Rx amlodipine 10 mg tablet 10 mg PO DAILY 11/30/24 01/26/25 History cholecalciferol (vitamin D3) 1,250 1,250 mcg PO QWEEK 11/30/24 01/18/25 History mcg (50,000 unit) capsule insulin degludec 100 unit/mL (3 7 unit subcut Q24H diabetes 11/30/24 11/30/24 History mL) subcutaneous pen (Tresiba FlexTouch U-100 insulin) gabapentin 600 mg tablet 600 mg PO DAILY 01/26/25 01/26/25 History gabapentin 800 mg tablet 800 mg PO QHS 01/26/25 01/25/25 History insulin lispro 100 unit/mL 10 unit subcut TID 01/26/25 01/26/25 History subcutaneous pen (Humalog KwikPen (U-100) Insulin) carvedilol 12.5 mg tablet 12.5 mg PO BID BLOOD 02/24/25 Unknown Rx PRESSURE/HEART #180 tabs ezetimibe 10 mg tablet (Zetia) 10 mg PO DAILY cholesterol #90 tabs 02/24/25 Unknown Rx tirzepatide 7.5 mg/0.5 mL 7.5 mg (0.5 mL) subcut QWEEK #2 mL 04/09/25 Unknown Rx subcutaneous pen injector (Mounjaro) dapagliflozin propanediol 10 mg 10 mg PO DAILY #90 tabs 05/15/25 Unknown Rx tablet (Farxiga) Allergy/AdvReac Type Severity Reaction Status Date / Time red dye Allergy Hives Verified 05/29/25 17:41 Vhstmqz-[id number]-IeP Reductase AdvReac Severe Myalgias Verified 05/29/25 17:41 Inhibitor (Dumsrsw-Ktw-Nws Reductase Inhibitor) Family History Father , Lung cancer Lung cancer Mother , Breast cancer Breast cancer Brother Cancer lymphoma Surgical History Cardiac defibrillator in situ History of eye surgery History of left heart catheterization (LHC) (~05/26/15) Status post foot surgery Status post breast reduction S/P hysterectomy History of bilateral breast reduction surgery History of bilateral foot surgery History of hysterectomy Social History household members: spouse Smoking Status: Former smoker quit date: 06/11/06 alcohol intake: never substance use type: does not use caffeine: No what type of physical activity do you participate in: none seatbelt use: always do you feel safe at home: Yes ROS ROS ED Constitutional Constitutional ED: Reports poor appetite; Denies chills or fever(s) Eyes Eyes: Denies change in vision or diplopia ENT ENT ED: Denies rhinorrhea or sore throat Cardiovascular Cardiovascular: Denies chest pain or palpitations Respiratory/Chest Respiratory/Chest: Denies cough or dyspnea Gastrointestinal Gastrointestinal: Denies abdominal pain, diarrhea, nausea or vomiting Genitourinary Genitourinary ED: Denies dysuria or hematuria Musculoskeletal Musculoskeletal: Denies back pain or neck pain Integumentary Denies abscess or rash Neurologic Neurologic: Denies headache(s), paresthesias or weakness Psychiatric Psychiatric: Reports anxiety; Denies suicidal thoughts EXAM Physical Exam Const Vital Signs: 05/29/25 17:38 05/29/25 17:41 05/29/25 20:32 Temperature 98.2 F Temperature Source Oral Pulse Rate 67 71 Respiratory Rate 16 16 Respiratory Effort Normal Non-Labored Respiratory Pattern Normal Blood Pressure 152/66 H Blood Pressure Mean 94 Pulse Ox 99 98 Oxygen Delivery Method Room Air Room Air Positive well nourished, well developed and obese Constitutional Narrative: keenly alert, nad General Appearance ED: well developed and NAD Nutritional Appearance: obese HEENT Reports moist mucous membranes normocephalic and atraumatic Eyes PERRL and EOMs intact bilaterally Neck full ROM and supple Resp normal respiratory effort and clear to auscultation bilaterally Cardio regular rate, regular rhythm and no murmurs Rate: Negative for tachycardic GI non-tender and non-distended Auscultation: normoactive bowel sounds Palpation: soft Back/Spine no CVA tenderness General Back: other FROM Extremity normal to inspection General Extremety ED: Negative for edema, pulses abnormal or tenderness General Extremity: Negative for edema or pulses abnormal Neuro oriented x3, CN's II-XII intact bilaterally and no sensory deficits noted Sensorium / Orientation: awake and alert Motor Exam: strength 5/5 throughout Psych Mood & Affect: anxious Skin no rashes or lesions noted and no wounds MDM MDM MDM Narrative Medical decision making narrative: Assessment: The patient is a 69-year-old female with PMH of type 2 diabetes mellitus presenting for two episodes of symptomatic hypoglycemia within the last 24 hours (lowest 54?55 mg/dL) after usual Humalog use in the setting of reduced oral intake and recent dose escalation of weekly Mounjaro. In the ED she received oral carbohydrates; serial glucose checks have risen into the 150 mg/dL range, and labs/urinalysis show only glycosuria without infection or metabolic derangement. Given normalization of glucose on oral therapy and absence of precipitating illness, recurrent hypoglycemia from relative insulin excess is the most likely diagnosis; admission is not indicated. Plan: - Provided oral juice, food in ED for symptomatic hypoglycemia. - Serial bedside glucose monitoring; no IV dextrose required. - Advised patient to hold Humalog until endocrinology follow-up next week; continue oral agents and Monjauro. - Discharge home now that glucose stable in 150s and asymptomatic. Diagnostics: - Serial capillary blood glucose readings: initial 50 mg/dL pre-arrival per CGM; in ED several checks rising to 150s. - Labs including basic metabolic panel and urinalysis?glycosuria noted; otherwise unremarkable. Reevaluations: - Several hours after arrival: glucose in 150s, dizziness resolved, patient ambulating without symptoms, requests discharge. Portions of this note were generated using voice recognition software ([employer] Dictation). I have reviewed the contents and every effort has been made to ensure accuracy; however, inadvertent errors in grammar, spelling, punctuation, or word choice may occur, that were not noted before signing the document and should not alter the intended clinical meaning. Lab Data Attestation: I reviewed the patient's lab results. Labs: Laboratory Results - last 24 hr 05/29/25 05/29/25 05/29/25 17:47 18:22 18:51 WBC 7.3 RBC 5.06 Hgb 14.8 Hct 44.8 MCV 88.5 MCH 29.2 MCHC 33.0 RDW Std Deviation 42.7 RDW Coeff of Ivet 13.2 Plt Count 250 MPV 9.1 Immature Gran % (Auto) 1.500 H Neut % (Auto) 54.7 Lymph % (Auto) 34.3 Avery % (Auto) 6.7 Eos % (Auto) 1.7 Baso % (Auto) 1.1 H Absolute Neuts (auto) 4.0 Absolute Lymphs (auto) 2.49 Nucleated RBC % 0 Sodium 136 Potassium 3.9 Chloride 101 Carbon Dioxide 22.8 Anion Gap 13 BUN 19 Creatinine 1.11 Estim Creat Clear Calc 58.66 Est GFR (MDRD) Non-Af 53 L BUN/Creatinine Ratio 16.9 Glucose 181 H Calcium 9.0 Urine Color Straw Urine Clarity Clear Urine pH 6.0 Ur Specific [place] 1.015 Urine Protein 15 H Urine Glucose (UA) 1000 H Urine Ketones Negative Urine Occult Blood Negative Urine Nitrite Negative Urine Bilirubin Negative Urine Urobilinogen Normal Ur Leukocyte Esterase Negative Urine RBC 0-5 SEEN Urine WBC 0-5 SEEN Ur Squamous Epith Cells 0-5 SEEN Urine Bacteria 0 SEEN Urine Mucus 0 SEEN POC Glucose 197 H 05/29/25 20:27 WBC RBC Hgb Hct MCV MCH MCHC RDW Std Deviation RDW Coeff of Ivet Plt Count MPV Immature Gran % (Auto) Neut % (Auto) Lymph % (Auto) Avery % (Auto) Eos % (Auto) Baso % (Auto) Absolute Neuts (auto) Absolute Lymphs (auto) Nucleated RBC % Sodium Potassium Chloride Carbon Dioxide Anion Gap BUN Creatinine Estim Creat Clear Calc Est GFR (MDRD) Non-Af BUN/Creatinine Ratio Glucose Calcium Urine Color Urine Clarity Urine pH Ur Specific Mora Urine Protein Urine Glucose (UA) Urine Ketones Urine Occult Blood Urine Nitrite Urine Bilirubin Urine Urobilinogen Ur Leukocyte Esterase Urine RBC Urine WBC Ur Squamous Epith Cells Urine Bacteria Urine Mucus POC Glucose 154 H Rhythm Strip Rhythm Strip: Sinus Rhythm Rate: 68 Ectopy: None Discharge Plan Triage Chief Complaint: Hypoglycemia ED Provider: Missael Tom Dx/Rx/DC Orders Clinical Impression: Hypoglycemia associated with type 2 diabetes mellitus, Insulin use (long-term) in type 2 diabetes Instructions: ED Diabetic Insulin Reaction Prescriptions: No Action Slow-Mag 71.5 mg tablet,delayed release (DR/EC) 71.5 mg PO DAILY Entresto 97-103 mg tablet 1 tab PO BID Qty: 180 3RF Mounjaro 7.5 mg/0.5 mL pen injector 7.5 mg subcut QWEEK Qty: 2 3RF aspirin 81 MG tablet 81 mg PO DAILY@0800 Patient Comments: [facility] amlodipine 10 mg tablet 10 mg PO DAILY cholecalciferol (vitamin D3) 1,250 mcg (50,000 unit) capsule 1,250 mcg PO QWEEK insulin degludec [Tresiba FlexTouch U-100] 100 unit/mL (3 mL) insulin pen 7 unit subcut Q24H gabapentin 600 mg tablet 600 mg PO DAILY Rx Instructions: AM gabapentin 800 mg tablet 800 mg PO QHS insulin lispro [Humalog KwikPen Insulin] 100 unit/mL insulin pen 10 unit subcut TID (DME) Handicap Parking Placard See Rx Instructions .Route .MEDSUPPLY Qty: 1 0RF Rx Instructions: As directed furosemide 20 mg tablet 20 mg PO QDAY Qty: 90 3RF carvedilol 12.5 mg tablet 12.5 mg PO BID Qty: 180 3RF ezetimibe [Zetia] 10 mg tablet 10 mg PO DAILY Qty: 90 3RF dapagliflozin propanediol [Farxiga] 10 mg tablet 10 mg PO DAILY Qty: 90 2RF Primary Care Provider: Sarah Toth [facility] Referrals: Nathanael Corrales MD [Med Staff - Courtesy Staff, Endocrinology] - As soon as possible Referral Note: call sunday AM for further instructions Activity Restrictions/Additional Instructions: - Hold your Humalog (rapid-acting) insulin 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 - Continue your other diabetes medications, including weekly Mounjaro injections and Farxiga, as currently prescribed. - Check your blood sugar levels regularly over the next few days and keep a log of all readings to help us track your trends. - If your blood sugar drops again, treat immediately with fast-acting carbohydrates (juice or simple sugars) as you did today. - Schedule and attend your follow-up appointment with endocrinology (Dr. Corrales/Lavonne Bridges?s team) after the weekend to review and adjust your insulin dosing. Print Language: Persian Disposition Disposition: Home, Self Care
[2025-05-29 18:39] LABS: Mucous, Urine 0 SEEN /hpf (<or=2+)
--- OUTSIDE RECORDS SUMMARY | 2025-05-29 18:41 | XMS RPT_ITS | CCD ---
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 Nathanael Corrales Attending Provider [phone] Bert SNIDER, CREDENTIALING ANALYST-C Lico Attending Provider Rachel Field Attending Provider Unavailable Navneet SNIDER, CREDENTIALING ANALYST-C Sarah Primary Care Provider Ovi Olivares MD Unavailable [phone] Shante Parada Primary Care Provider [phone] Harrison JUNIOR PROGRAMMER, Kristen (Historical) Unavailable U [facility], Genie Chambers Primary Care Pro vider [facility], Genie Chambers Referring Provid er EVENS Bridges Attending Provider Bert CREDENTIALING ANALYSTAGATHA-Chele Beckham Attending Provider [facility], Genie Gutierrezessie Primary Care Pro vider [facility], Genie Solanoottonielessie Referring Provid er Bert CREDENTIALING ANALYST, CREDENTIALING ANALYSTVicenteC Lico Attending Provider EVENS Bridges Attending Provider [...] Unavailable QUINTANA, HONORIO D Attending Unavailable Navneet CREDENTIALING ANALYST-C, Sarah Primary Care Provider Navneet CREDENTIALING ANALYST-C, Sarah Attending Provider Navneet CREDENTIALING ANALYST-C, Sarah Referring Provider Kaye Willoughby Attending Provider [phone] Dr. Misbah Marcum MD Attending Provider [phone] Dr. Misbah Marcum MD Referring Provider [phone] Lavonne Mccollum Attending Provider Navneet CREDENTIALING ANALYST-C, Sarah Primary Care Provider Dr. Misbah Marcum MD Attending Provider [phone] Jossue MD, Dr. [place] Referring Provider Navneet CREDENTIALING ANALYST-C, Sarah Attending Provider Navneet CREDENTIALING ANALYST-C, Sarah Referring Provider Cyrus CREDENTIALING ANALYST-C, Lavonne Attending Provider Erlin HASSAN, Dr. Jauregui Emergency Provider Erlin HASSAN, Dr. Jauregui Attending Provider Elisabeth MONTGOMERY, Dr. Wilkerson Emergency Provider Elisabeth MONTGOMERY, Dr. Wilkerson Attending Provider Bert CREDENTIALING ANALYST-C, Lico Attending Provider Lidia HASSAN, Dr. Locke Emergency Provider Unavailab elisa Oakley MD, Dr. Talbot Admit Provider Adin HASSAN, Dr. Talbot Attending Provider Adin HASSAN, Dr. Talbot Other Provider Iglesia HASSAN, Cesar Other Provider Unavailable Hayley HASSAN, Dr. Zuleta Other Provider [phone] Annita Barba MD Other Provider Unavailable Dr. Samra Samano DO Other Provider Monica HASSAN, Dr. Santoro Other Provider [phone] Anthony HASSAN, Dr. Streeter Other Provider Ronen HASSAN, Dr. Duffy Other Provider [phone] Dr. Sunny Connelly MD Other Provider [phone] Dr. Keila Chacon MD Other Provider Jonny HASSAN, Dr. Morris Other Provider [phone] Sherley Rodriguez MD Other Provider Yann HASSAN, Dr. Matt Other Provider Yogesh HASSAN, Dr. Hernandez Other Provider Arlet HASSAN, Dr. Bassett Other Provider Dr. Isabela Alaniz MD Other Provider Brandon HASSAN, Dr. Quintanilla Other Provider Aníbal HASSAN, Dr. Goodrich Other Provider Tyree HASSAN, Dr. Salvador Other Provider Carlito HASSAN, Dr. Enciso Other Provider Unavailable Cintia HASSAN, Rand Other Provider Unavailable Maria Fernanda HASSAN, Dr. Sidra Nickerson Attending Provider Rachel Field Attending Provider Unavailable Maria Fernanda HASSAN, Dr. Sidra Nickerson Other Provider Navneet CREDENTIALING ANALYST-C, Sarah Primary Care Provider Jossue HASSAN, Dr. Crawley Attending Provider Jossue HASSAN, Dr. Crawley Referring Provider [phone] [facility], Sarah Attending Unavailabl e Navneet VSC, [...] Navneet VSC, Sarah Primary Care Unavailabl e Josuse, [place] Attending Unavailable Jossue, Misbah Referring Unavailable Navneet [facility], Sarah Primary Care Unavailabl e Navneet C, Sarah Referring Unavailabl e Kaye Burris Attending Unavailabl e Navneet VSC, Sarah Primary Care Unavailabl e Jossue, [place] Referring Unavailable Jossue, Misbah Attending Unavailable Navneet C, Sarah Primary Care Unavailabl e Navneet VSC, Sarah Referring Unavailabl e Lavonne Bridges Attending Unavailable Navneet C, Sarah Primary Care Unavailabl e Jossue, [place] Attending Unavailable Jossue, Misbah Referring Unavailable Navneet VSC, Sarah Referring Unavailabl e Navneet VSC, Sarah Primary Care Unavailabl e Jossue, Misbah Attending Unavailable [facility], Sarah Primary Care Unavailabl e Cesar [...] Liya Consulting Unavailable Dahiana Oakley Attending Unavailable [facility], Sarah Primary Care Unavailabl e Jossue, [place] Attending Unavailable [facility], [facility] Primary Care Unavailable Jossue, Misbah Attending [facility]available [facility] Referring Unavailable [facility], [facility] Primary Care Unavailabl e Lico Noel NP Attending Unavailable Navneet [facility], Sarah Referring Unavailabl e Lavonne Bridges Attending Unavailable Navneet C, Sarah Primary Care Unavailabl e Navneet VSC, Sarah Primary Care Unavailabl e Jossue, [place] Referring Unavailable Jossue, Misbah Attending Unavailable [facility], [facility] Unavailabl e Jossue, Misbah Referring Unavailable Jossue, [place] Attending Unavailable [facility], [facility] Primary Care Unavailabl e [facility], [facility] Referring Unavailabl e Cyrus, Lavonne Attending Unavailable [facility], [facility] Primary Care Unavailabl e [facility], [facility] Referring Unavailabl e Cyrus, Lavonne Attending Unavailable [facility], [facility] Care Unavailabl e Jossue, [place] Attending Unavailable Jossue, [place] Referring Unavailable [facility], [facility] Primary Care Unavailabl e Jossue, [place] Attending Unavailable [facility], [facility] Care Unavailabl e Ungur, Remus Attending Unavailable Allergies Allergy Classification Reported Allergen(s) Allergy Type Date of Onset Reaction(s) Facility (20 sources) Contrast media; Translations: [RED DYE] drug allergy 5 Unknown [facility] Work Phone: (5 sources) Hmg-Coa Reductase Inhibitors (Statins) drug allergy 6 mylagias [facility] Work Phone: (5 sources) Hmg-Coa Reductase Inhibitors (Statins); Translations: [PZOFRNS-EDR-EYR REDUCTASE INHIBITORS] Propensity to adverse reactions (disorder) 8 Myalgia [facility] Repository (18 sources) Hvpdexw-Pvo-Tpl Reductase Inhibitor Propensity to adverse reactions 2 Myalgias [facility] (3 sources) semaglutide Drug Allergy 5 Vomiting [facility] (1 source) Uwcqakn-Vnj-Lsr Reductase Inhibitor Drug allergy (disorder) 5 [facility] Repository (1 source) semaglutide Drug allergy (disorder) 5 [facility] Repository Medications Current Medications Medication Drug [...] TABS One tablet by mouth daily ASPIRIN [id number] Kaye Burris PA-C Start: 06-10-2015 take 1 tablet by margaret th once daily ASPIRIN 81 MG TABS One tablet by mouth daily ASPIRIN [id number] Kaye Burris PA-C Start: 05-27-2015 End: 01-26-2017 [...] One tablet by mouth twice daily CARVEDILOL [id number] Kaye Burris PA-C Start: 06-10-2015 take 1 tablet by margaret th twice daily COREG 25 MG TABS One tablet by mouth twice daily CARVEDILOL [id number] Kaye Burris PA-C Start: 06-10-2015 take 2 tablets by mo [facility] twice daily COREG 25 MG TABS Two tablets by mouth twice daily CARVEDILOL [id number] Grace Horan RN Start: 05-27-2015 End: 01-12-2016 [...] once daily. Take 1 capsule by mo [facility] one time a week. CPAP (3 sources) [...] Start: 10-23-2024 take 1 capsule by mo [facility] three times daily Gabapentin 300 mg [...] tablet by mouth daily at bedtime GABAPENTIN [id number] Kristen Sandy RN Comment on above: Take [...] IT/ML SOLN Take as directed INSULIN DETEMIR [id number] Stewart Boggs MD Start: 10-22-2015 LEVEMIR 100 UN IT/ML SOLN Take as directed INSULIN DETEMIR [id number] Stewart Boggs MD Start: 10-22-2015 LEVEMIR 100 UN IT/ML SOLN Take as directed INSULIN DETEMIR [id number] Stewart Boggs MD Start: 10-22-2015 LEVEMIR 100 UN IT/ML SOLN Take as directed INSULIN DETEMIR [id number] Stewart Boggs MD Start: 05-27-2015 End: 01-12-2016 [...] 20, 2017 1:00am October 01, 2017 10:27am [id number] actuat albuterol 0.09 mg/actuat metered dose [...] One tablet by mouth daily ATORVASTATIN CALCIUM [id number] Kaye Burris PA-C 24 hr buPROPion hydrochloride [...] tablet by mouth daily MAGNESIUM CL-CALCIUM CARBONATE [id number] Kristen Sandy RN Start: 01-17-2016 take 1 tablet by margaret th once daily SLOW-MAG 71.5-119 MG TBEC One tablet by mouth daily MAGNESIUM CL-CALCIUM CARBONATE [id number] Kristen Sandy RN cephalexin 500 mg oral [...] tablet by mouth twice daily COLESTIPOL HCL [id number] Kaye Burris PA-C Comment on above: Take [...] 10 MG TABS As needed CYCLOBENZAPRINE HCL [id number] Kaye Pierson RN diphenhydrAMINE hydrochloride 25 mg [...] tablet by mouth twice daily ENALAPRIL MALEATE [id number] Kaye Pierson RN Start: 06-10-2015 End: 03-12-2017 take 1 tablet by mouth once daily ENALAPRIL MALEATE 10 MG TABS One tablet by mouth daily (STOP) ENALAPRIL MALEATE 16462379820 Stewart Boggs MD ezetimibe 10 mg oral [...] TABS One tablet by mouth daily FUROSEMIDE 04003133602 Kaye Pierson RN Start: 01-13-2016 End: 06-19-2016 [...] One tablet by mouth twice daily FUROSEMIDE [id number] Grace Horan RN Start: 05-27-2015 End: 11-01-2018 [...] % GEL as needed DEXTROSE (DIABETIC USE) [id number] Kristen Sandy RN Handicap Parking Placard (20 [...] Start: 06-10-2015 take 2 tablets by mo [facility] once daily LISINOPRIL 5 MG TABS Two tablets by mouth daily LISINOPRIL [id number] Stewart Boggs MD Start: 06-10-2015 take 1 tablet by margaret th once daily LISINOPRIL 10 MG TABS One tablet by mouth daily LISINOPRIL [id number] Kristen Sandy RN Start: 06-10-2015 take 1 tablet by margaret th once daily LISINOPRIL 20 MG TABS One tablet by mouth daily LISINOPRIL [id number] Kaye Burris PA-C Start: 05-27-2015 End: 01-12-2016 [...] 11:16am Start: 08-16-2020 take 1 capsule by [facility] once daily omeprazole (PRILOSEC) 20 [...] One tablet by mouth daily POTASSIUM CHLORIDE [id number] PALMIRA McdonaldC pravastatin sodium 20 mg oral tablet (10 sources) HMG-CoA Reductase Inhibitor Start: 01-26-20 End: 02-29-20 take 1 tablet by mouth at bedtime PRAVACHOL 20 MG TABS One tablet by mouth at bedtime. PRAVASTATIN SODIUM 31130147560 Kaye Pierson RN predniSONE 20 mg oral [...] One tablet by mouth twice daily SACUBITRIL-VALSARTAN [id number] Stewart Boggs MD Start: 08-23-2016 take 1 tablet by margaret th twice daily ENTRESTO 49-51 MG TABS One tablet by mouth twice daily SACUBITRIL-VALSARTAN [id number] Stewart Boggs MD Comment on above: 1 [...] One tablet by mouth at bedtime. SIMVASTATIN [id number] Stewart Boggs MD spironolactone 50 mg oral [...] TABS One tablet by mouth daily SPIRONOLACTONE [id number] Kristen Sandy RN Tirzepatide (Mounjaro) 2.5 mg/0.5 mL [...] TABS Five tablets by mouth daily CHOLECALCIFEROL [id number] Stewart Boggs MD Start: 08-23-2016 take 5 tablets by mo [facility] once daily VITAMIN D 1000 UNIT TABS Five tablets by mouth daily CHOLECALCIFEROL 32611833625 Stewart Boggs MD Start: 08-23-2016 take 5 tablets by mo ut once daily VITAMIN D 1000 UNIT TABS Five tablets by mouth daily CHOLECALCIFEROL 69517018379 Stewart Boggs MD Problems Active Problems Problem [...] Comment on above: Implanted 03/16/2016 mala Garcia, [facility] Congestive heart failure; nonhypertensive (20 sources) Chronic systolic (congestive) heart failure; Translations: [Acute on chronic systolic heart failure] Onset: 6 01-17-2016 Chronic Coronary atherosclerosis and other heart disease (20 sources) Atherosclerotic heart disease of [place] coronary artery without angina pectoris; Translations: [Myocardial ischemia] Onset: 5 Resolved: 6 12-01-2016 Chronic Comment on above: 05/26/2015 @ [facility] per Dr. 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 [address] [place] [address] OFFICE VISIT Date of Service: 04/09/25 MR#: [id number] Acct: [id number] Name: THIAGO PIERRE Rep #: [id number] : 1955 Provider: EVENS gates Age/Sex: 69/F Location[place] [facility] Status: Signed Intake Vital Signs 10/23/24 13:55 [...] red dye Allergy (Verified 04/09/25 14:13) Hives Xnhditg-NHE-ZwT Reductase Inhibitor (Lrjuqmt-Jem-Fab Reductase Inhibitor) Adverse Reaction (Severe, Verified 04/09/25 [...] disease Pure hypercholesterolemia Atherosclerotic heart disease of [place] coronary artery without angina pectoris Nonrheumatic mitral [...] episode of (more content not included)... Normal [facility] Absolute lymphocyte countOrd ered By: Dahiana Oakley on 01-27-2025 Lymphocytes Auto (Unsp spec) [#/Vol] 1.85 10*3/uL 0.83-4.51 [facility] Absolute neutrophil countOrd ered By: Dahiana Oakley on 01-27-2025 Neutrophils (Bld) [#/Vol] 2.9 10*3/uL 2.0-7.7 [facility] Anion gap in Serum or Plasma Ordered By: Dahiana Oakley on 01-27-2025 Anion gap [Moles/Vol] 13 mmol/L 10-23 [facility] Automated lymphocyte count a s percentage of total leukocytesOrdered By: Dahiana Oakley on 01-27-2025 Lymphocytes/100 WBC Auto (Unsp spec) 34.6 % [facility] BUN/creatinine ratioOrdered By: Dahiana Oakley on 01-27-2025 Urea nitrogen/Creatinine [Mass ratio] 18.9 mg/mg 03-30 [facility] Basic Metabolic Profile (BMP )on 01-27-2025 BUN/CRE 18.9 RATIO Normal 03-30 [facility] Comment on above: Order Comment: Comme nts: NPO at [place] prior to lipid panel Performed By: #### L 501.9520, L500.4100, L500.2500, L100.0100 #### [facility] [address] [place], [address] Calcium [Mass/Vol] 8.6 mg/dL Normal 7.6-11.0 [facility] Comment on above: Order Comment: Comme nts: NPO at [place] prior to lipid panel Performed By: #### L 501.9520, L500.4100, L500.2500, L100.0100 #### [facility] [address] [place], [address] Chloride [Moles/Vol] 105 mmol/L Normal 98-108 [facility] Comment on above: Order Comment: Comme nts: NPO at [place] prior to lipid panel Performed By: #### L 501.9520, L500.4100, L500.2500, L100.0100 #### [facility] [address] [place], [address] CO2 [Moles/Vol] 20.2 mmol/L Low 21.0-32.0 [facility] Comment on above: Order Comment: Comme nts: NPO at [place] prior to lipid panel Performed By: #### L 501.9520, L500.4100, L500.2500, L100.0100 #### [facility] [address] [place], [address] Creatinine [Mass/Vol] 1.17 mg/dL Normal 0.70-1.20 [facility] Comment on above: Order Comment: Comme nts: NPO at [place] prior to lipid panel Performed By: #### L 501.9520, L500.4100, L500.2500, L100.0100 #### [facility] [address] [place], [address] ECRCL 55.91 ml/min Normal 50-250 [facility] Comment on above: Order Comment: Comme nts: NPO at [place] prior to lipid panel Performed By: #### L 501.9520, L500.4100, L500.2500, L100.0100 #### [facility] [address] [place], [address] GAP 13 Normal 5-15 [facility] Comment on above: Order Comment: Comme nts: NPO at [place] prior to lipid panel Performed By: #### L 501.9520, L500.4100, L500.2500, L100.0100 #### [facility] [address] [place], [address] GFR/1.73 sq M.predicted among non-blacks MDRD (S/P/Bld) [Vol rate/Area] 50 mL/min/{1.73_m2} Low >60 [facility] Comment on above: Order Comment: Comme nts: NPO at [place] prior to lipid panel Result Comment: mL/m in/1.73m2 CKD-EPI Creatinine Equation (2020) Performed By: #### L 501.9520, L500.4100, L500.2500, L100.0100 #### [facility] [address] [place], [address] Glucose [Mass/Vol] 152 mg/dL High 70-99 [facility] Comment on above: Order Comment: Comme nts: NPO at [place] prior to lipid panel Performed By: #### L 501.9520, L500.4100, L500.2500, L100.0100 #### [facility] [address] [place], [address] Potassium [Moles/Vol] 4.3 mmol/L Normal 3.3-5.1 [facility] Comment on above: Order Comment: Comme nts: NPO at [place] prior to lipid panel Performed By: #### L 501.9520, L500.4100, L500.2500, L100.0100 #### [facility] [address] [place], [address] Sodium [Moles/Vol] 138 mmol/L Normal 133-145 [facility] Comment on above: Order Comment: Comme nts: NPO at [place] prior to lipid panel Performed By: #### L 501.9520, L500.4100, L500.2500, L100.0100 #### [facility] [address] [place], [address] Urea nitrogen [Mass/Vol] 22 mg/dL High 4-19 [facility] Comment on above: Order Comment: Comme nts: NPO at [place] prior to lipid panel Performed By: #### L 501.9520, L500.4100, L500.2500, L100.0100 #### [facility] [address] [place], [address] Basophil percentageOrdered B y: Dahianavlad Oakley on 01-27-2025 Basophils/100 WBC (Bld) 0.6 % 0-1 [facility] Bedside Glucoseon 01-27-2025 FINGERSTICK GLU 158 mg/dL High 74-106 [facility] Comment on above: Result Comment: AMARI GEMENT OF PATIENT CARE PER NURSING PROTOCOL Performed By: #### L 501.080 #### [facility] [address] [place], [address] FINGERSTICK GLU 152 mg/dL High 74-106 [facility] Comment on above: Result Comment: AMARI GEMENT OF PATIENT CARE PER NURSING PROTOCOL Performed By: #### L 501.080 #### [facility] [address] [place], [address] Brain without Contraston Brain without Contrast [facility] [address] [place] [address] Brain without Contrast MR#: [id number] Acct: [id number] Name: THIAGO PIERRE Rep #: [id number] : 1955 F 69 From: Devan Pillai MD PCP: ARIA Long, CREDENTIALING ANALYST-C Status: ADM DENIS Study: Brain without Contrast Date of Exam: 01/27/25 Exam# [id number] Ordering Dr: Dahiana Oakley MD PROCEDURE: BRAIN [...] ischemic changes, mild volume loss. Reading Location: [id number] CC: [facility] CREDENTIALING ANALYST-C Sarah Toth; Dr. Dahiana Oakley MD Check Cashier: Signed Normal [facility] CBC W/Diff, Automatedon 01-09 Absolute Lymph 1.85 X10 3/uL Normal 0.83-4.51 [facility] Comment on above: Performed By: #### L 501.9520, L500.4100, L500.2500, L100.0100 #### [facility] [address] [place], [address] Absolute Neut 2.9 X10 3/uL Normal 2.0-7.7 [facility] Comment on above: Performed By: #### L 501.9520, L500.4100, L500.2500, L100.0100 #### [facility] [address] [place], [address] Basophils/100 WBC (Bld) 0.6 % Normal 0-1 [facility] Comment on above: Performed By: #### L 501.9520, L500.4100, L500.2500, L100.0100 #### [facility] [address] [place], [address] Eosinophils/100 WBC (Bld) 3.6 % Normal 0-5 [facility] Comment on above: Performed By: #### L 501.9520, L500.4100, L500.2500, L100.0100 #### [facility] [address] [place], [address] Erythrocyte distribution width (RBC) [Ratio] 13.3 % Normal 11.6-14.6 [facility] Comment on above: Performed By: #### L 501.9520, L500.4100, L500.2500, L100.0100 #### [facility] [address] [place], [address] Hematocrit (Bld) [Volume fraction] 39.0 % Normal 37-47 [facility] Comment on above: Performed By: #### L 501.9520, L500.4100, L500.2500, L100.0100 #### [facility] [address] [place], [address] Hemoglobin (Bld) [Mass/Vol] 12.8 g/dL Normal 12.0-15.0 [facility] Comment on above: Performed By: #### L 501.9520, L500.4100, L500.2500, L100.0100 #### [facility] [address] [place], [address] IG% 0.600 Normal 0.0-0.9 [facility] Comment on above: Result Comment: IG% - Immature Granulocytes (promyelocytes, myelocytes and metamyelocytes) > 1% indicates that a LEFT SHIFT is Present. Performed By: #### L 501.9520, L500.4100, L500.2500, L100.0100 #### [facility] [address] [place], [address] Lymphocytes/100 WBC (Bld) 34.6 % Normal 19-41 [facility] Comment on above: Performed By: #### L 501.9520, L500.4100, L500.2500, L100.0100 #### [facility] [address] [place], [address] MCH (RBC) [Entitic mass] 28.8 pg Normal 27.0-32.0 [facility] Comment on above: Performed By: #### L 501.9520, L500.4100, L500.2500, L100.0100 #### [facility] [address] [place], [address] MCHC (RBC) [Mass/Vol] 32.8 g/dL Normal 32-36 [facility] Comment on above: Performed By: #### L 501.9520, L500.4100, L500.2500, L100.0100 #### [facility] [address] [place], [address] MCV (RBC) [Entitic vol] 87.8 fL Normal 81-99 [facility] Comment on above: Performed By: #### L 501.9520, L500.4100, L500.2500, L100.0100 #### [facility] [address] [place], [address] Monocytes/100 WBC (Bld) 7.1 % Normal 0-10 [facility] Comment on above: Performed By: #### L 501.9520, L500.4100, L500.2500, L100.0100 #### [facility] [address] [place], [address] Neutrophils/100 WBC (Bld) 53.5 % Normal 47-70 [facility] Comment on above: Performed By: #### L 501.9520, L500.4100, L500.2500, L100.0100 #### [facility] [address] [place], [address] Nucleated RBC (Bld) [#/Vol] 0 10*3/uL Normal 0-5 [facility] Comment on above: Performed By: #### L 501.9520, L500.4100, L500.2500, L100.0100 #### [facility] [address] [place], [address] Platelet mean volume (Bld) [Entitic vol] 9.2 fL Normal 6.2-12.0 [facility] Comment on above: Performed By: #### L 501.9520, L500.4100, L500.2500, L100.0100 #### [facility] [address] [place], [address] Platelets (Bld) [#/Vol] 265 10*3/uL Normal 150-450 [facility] Comment on above: Performed By: #### L 501.9520, L500.4100, L500.2500, L100.0100 #### [facility] Laboratory [address] [place], [address] RBC (Bld) [#/Vol] 4.44 10*6/uL Normal 4.2-5.4 [facility] Comment on above: Performed By: #### L 501.9520, L500.4100, L500.2500, L100.0100 #### [facility] Laboratory [address] [place], [address] RDW SD 42.6 fl Normal 35.1-43.9 [facility] Comment on above: Performed By: #### L 501.9520, L500.4100, L500.2500, L100.0100 #### [facility] Laboratory [address] [place], [address] WBC (Bld) [#/Vol] 5.4 10*3/uL Normal 4.4-11.0 [facility] Comment on above: Performed By: #### L 501.9520, L500.4100, L500.2500, L100.0100 #### [facility] Laboratory [address] [place], [address] Calculated very low density lipoprotein (VLDL) cholesterol measurementOrdered By: Dahiana Oakley on 01-27-2025 Calculated very low density lipoprotein (VLDL) cholesterol measurement 44 mg/dL High 5-40 [facility] Carbon dioxide, total [Moles /volume] in Central venous bloodOrdered By: Dahiana Oakley on 01-27-2025 CO2 [Moles/Vol] 20.2 mmol/L Low 21.0-32.0 [facility] Chloride assayOrdered By: Chapin [place]ley on 01-27-2025 Chloride [Moles/Vol] 105 mmol/L 98-108 [facility] Discharge Instructionon 01-09 Discharge Instruction [facility] Medical Records Department [address] [place] [address] Instructions for Home/Discharge Instructions 01/27/25 1359 MR#: [id number] Acct: [id number] Name: THIAGO PIERRE Rep #: [id number] : 1955 69 From: Sidra Irving MD PCP: ARIA Long, CREDENTIALING ANALYST-C Status:ADM DENIS Discharge Instructions DC O2, CPAP, [...] 3RF Referrals / Follow Up: Sarah Toth, CREDENTIALING ANALYST-C [Primary Care Provider] - Within 1 Week Disposition Disposition (needs filled in before D/C Order can be placed): Home, Self Care 01/27/25 9060 Sidra Irving MD CC: Samra Samano; Mary Zuñiga; Dwight Taylor; ARIA CREDENTIALING ANALYST-C Sarah Toth; Maude Anderson MD; Annita Barba [...] Rodriguez DO; Rand Chamberlain MD Signed Normal [facility] Electrocardiogram reportOrde red By: Misbah Marcum on 01-27-2025 EKG study [facility] Cardiovascular Services [address] [place] [address] 12 Lead EKG 01/26/25 1452 MR#: [id number] Acct: [id number] Name: THIAGO PIERRE Rep #:[id number] : 1955 69 From: Misbah Marcum MD Attending Dr: Dr. Sidra Irving MD Status: ADM DENIS Ordering Dr: Sidra Irving MD Date: 01/26/25 Location: [facility] Sex: F C Admitted: 01/26/25 Test Reason [...] ECG Confirmed by MISBAH MARCUM MD ([id number]), commissioning editor SMITH LOPEZ ([id number]) on 01/27/2025 9:02:46 AM Referred By: Confirmed By: MISBAH MARCUM MD 01/27/25 0902 Date _ Misbah Marcum MD CC: ARIA Toth; Dr. Sidra Irving MD ~ Signed [facility] Work Phone: [phone] Eosinophil percentageOrdered By: Dahiana Oakley on 01-27-2025 Eosinophils/100 WBC (Bld) 3.6 % 0-5 [facility] Erythrocyte distribution wid th ratioOrdered By: Dahiana Oakley on 01-27-2025 Erythrocyte distribution width (RBC) [Ratio] 13.3 % 11.6-14.6 [facility] Erythrocyte distribution wid th standard deviationOrdered By: Dahiana Oakley on 01-27-2025 Erythrocyte distribution width (RBC) [Ratio] 42.6 fl 35.1-43.9 [facility] Glomerular filtration rate ( GFR) estimation/1.73 sq m using serum, plasma, or whole bOrdered By: Dahiana Oakley on 01-27-2025 GFR/1.73 sq M.predicted among non-blacks MDRD (S/P/Bld) [Vol rate/Area] 50 mL/min/{1.73_m2} Low >60 [facility] Comment on above: mL/min/1.73m2 CKD-EP I Creatinine Equation (2020) Gl[facility] deOrdered By: Sidra Irving on 01-27-2025 Glucose [Mass/Vol] 158 mg/dL High 74-106 [facility] Comment on above: MANAGEMENT OF PATIEN T CARE PER NURSING PROTOCOL Hematocrit Auto (Bld) [Volum e fraction]Ordered By: Dahiana Oakley on 01-27-2025 Hematocrit (Bld) [Volume fraction] 39.0 % 37-47 [facility] Hemoglobin A1con 01-27-2025 HbA1c (Bld) [Mass fraction] 8.1 % High <=5.6 [facility] Comment on above: Result Comment: Norm al < 5.7 % Prediabetic 5.7 - 6.4 % Diabetic >or= 6.5 % Please note range changes. Performed By: #### L 501.0150, L500.4100, L500.2500, L100.0100 #### [facility] Laboratory [address] [place], [place], [address] Hemoglobin A1c percentageOrd ered By: Dahiana [place] on 01-27-2025 HbA1c (Bld) [Mass fraction] 8.1 % High <5.7 [facility] Comment on above: Normal < 5.7 % Predi abetic 5.7 - 6.4 % Diabetic >or= 6.5 % Please note range changes. Hemoglobin measurementOrdere d By: Dahiana Oakley on 01-27-2025 Hemoglobin (Bld) [Mass/Vol] 12.8 g/dL 12.0-15.0 [facility] Immature granulocytes/100 WB C Auto (Bld)Ordered By: Dahiana Oakley on 01-27-2025 Immature granulocytes/100 WBC (Bld) 0.600 % 0.0-0.9 [facility] Comment on above: IG% - Immature Granu locytes (promyelocytes, myelocytes and metamyelocytes) > 1% indicates that a LEFT SHIFT is Present. LDL calc ser/plasOrdered By: Dahiana Oakley on 01-27-2025 Cholesterol in LDL [Mass/Vol] 133 mg/dL [facility] Comment on above: Qqkomqjcqd=131-341 m g/dL & Higher Lsxd=204 mg/dL or greaterFriedwald Equation for LDL-C Lipid Profileon 01-27-2025 CHOL:HDL 5.10 Normal [facility] Comment on above: Order Comment: Comme nts: NPO at [place] prior to lipid panel Performed By: #### L 501.9520, L500.4100, L500.2500, L100.0100 #### [facility] [address] [place], [address] Cholesterol [Mass/Vol] 220 mg/dL High <=200 [facility] Comment on above: Order Comment: Comme nts: NPO at [place] prior to lipid panel Result Comment: Chol esterol level, Desirable <200 mg/dL Borderline high cholesterol 200-239 mg/dL High cholesterol >=240 mg/dL Recommendations of the NCEP Adult Treatment Panel for the following risk-cutoff thresholds for the [place] population. Performed By: #### L 501.9520, L500.4100, L500.2500, L100.0100 #### [facility] Laboratory [address] [place], [address] Cholesterol in HDL [Mass/Vol] 43 mg/dL Normal [facility] Comment on above: Order Comment: Comme [...] #### L 501.9520, L500.4100, L500.2500, L100.0100 #### [facility] Laboratory [address] [place], [address] Cholesterol in LDL [Mass/Vol] 133 mg/dL Normal [facility] Comment on above: Order Comment: Comme nts: NPO at [place] prior to lipid panel Result Comment: Bord koewko=754-349 mg/dL Higher Hlph=364 mg/dL or greater Friedwald Equation for LDL-C Performed By: #### L 501.9520, L500.4100, L500.2500, L100.0100 #### [facility] Laboratory [address] [place], [address] Cholesterol in VLDL [Mass/Vol] 44 mg/dL High 5-40 [facility] Comment on above: Order Comment: Comme nts: NPO at [place] prior to lipid panel Performed By: #### L 501.9520, L500.4100, L500.2500, L100.0100 #### [facility] Laboratory [address] [place], [address] Triglyceride [Mass/Vol] 218 mg/dL High [facility] Comment on above: Order Comment: Comme nts: NPO at [place] prior to lipid panel Result Comment: The drugs N-Acetylcysteine and Metamizole may falsely depress this assay. Normal range: <150 mg/dL Borderline High: 150-199 mg/dL High: 200-499 mg/dL Very High: >500 mg/dL Performed By: #### L 501.9520, L500.4100, L500.2500, L100.0100 #### [facility] Laboratory [address] [place], [address] MCV (mean corpuscular volume ) determinationOrdered By: Dahiana Oak[place] on 01-27-2025 MCV (RBC) [Entitic vol] 87.8 fL 81-99 [facility] MR/CON.PCM.NEon 01-27-2025 MR/CON.PCM.NE [facility] Medical Records Department [address] [place] [address] Consultation - Neurology 01/27/25 1040 MR#: [id number] Acct: [id number] Name: THIAGO PIERRE Rep #: [id number] : 1955 69 From: Joleen Spangler MD PCP: ARIA Long, CREDENTIALING ANALYST-C Status:ADM DENIS Location: [place] [address] Assessment and Plan: Neuro Assessment/Plan THIAGO PIERRE [...] failure with recovered EF, migraines presented to [facility] ED 01/26/2025 due to transient episode [...] her vision, today she went to the [employer] and was told she has retinopathy and [...] disease Pure hypercholesterolemia Atherosclerotic heart disease of [place] coronary artery without angina pectoris Nonrheumatic mitral [...] istory carved (more content not included)... Normal [facility] Magnetic resonance imaging r eportOrdered By: Devan Pillai on 01-27-2025 Study report [facility] Imaging Services [address] [place] [address] Brain without Contrast MR#: [id number] Acct: [id number] Name: THIAGO PIERRE Rep #: [id number] : 1955 F 69 From: Joe Pillai MD PCP: ARIA Long, CREDENTIALING ANALYST-C Status: ADM DENIS Study:Brain without Contrast Date of Exam: 01/27/25 Exam# [id number] Ordering Dr: Clinton [place] MD PROCEDURE: BRAIN [...] ischemic changes, mild volume loss. Reading Location: [id number] CC: [facility] CREDENTIALING ANALYST-C Sarah Toth; Dr. Dahiana [place] MD ~ Check Cashier: Signed [facility] Mean corpuscular hemoglobin (MCH) determinationOrdered By: Dahiana Oakley on 01-27-2025 MCH (RBC) [Entitic mass] 28.8 pg 27.0-32.0 [facility] Mean corpuscular hemoglobin concentration (MCHC) determinationOrdered By: Dahiana [place]ley on 01-27-2025 MCHC (RBC) [Mass/Vol] 32.8 g/dL 32-36 [facility] Mean platelet volume determi nationOrdered By: Dahiana Oakley on 01-27-2025 Platelet mean volume (Bld) [Entitic vol] 9.2 fL 6.2-12.0 [facility] Monocyte percentageOrdered B y: Dahiana Oakley on 01-27-2025 Monocytes/100 WBC (Bld) 7.1 % 0-10 [facility] Neutrophil percentageOrdered By: Dahiana Oakley on 01-27-2025 Neutrophils/100 WBC (Bld) 53.5 % 47-70 [facility] Nucleated red blood cell per centageOrdered By: Dahiana Oakley on 01-27-2025 Nucleated RBC/100 WBC (Bld) [Ratio] 0 % 0-5 [facility] Pacemaker Checkon 01-27-2025 Pacemaker Check [facility] [address] [place] [address]. [address] [place], [place] [address] Pacemaker Check Date of Service: 01/27/25 1702 MR#: [id number] Acct: [id number] Name: THIAGO PIERRE Rep #: [id number] : 1955 From: Rachel Field Age/Sex: 69/F Location: [facility] Status: Signed Billing Codes MRI: 15542 Pacmeaker (Programming after MRI) Assessment and Plan Assessment and Plan (1) Dilated cardiomyopathy: Status: Chronic Comment: Ejection fraction 20% per echo 01/13/2016 @ [facility] (2) Chronic systolic (congestive) heart failure: Status: Chronic 01/27/251701 Date Rachel Castro Signature: Date (if applicable) CC: Normal [facility] Pacemaker Check [facility] [address] [place] [address] Pacemaker Check Date of Service: 01/27/251700 MR#: [id number] Acct: [id number] Name: THIAGO PIERRE Rep #: [id number] : 1955 From: Rachel Field Age/Sex: 69/F Location: [facility] Status: Signed Billing Codes MRI: 83347 Pacmeaker (programming prior to MRI) Assessment and Plan Assessment and Plan (1) Dilated cardiomyopathy: Status: Chronic Comment: Ejection fraction 20% per echo 01/13/2016 @ [facility] (2) Chronic systolic (congestive) heart failure: Status: Chronic 01/27/251701 Date Rachel Castro Signature: Date (if applicable) CC: Normal [facility] Platelet countOrdered By: Chapin [place] on 01-27-2025 Platelets (Bld) [#/Vol] 265 10*3/uL 150-450 [facility] Potassium measurement (mass/ volume)Ordered By: Dahiana [place]ley on 01-27-2025 Potassium (Unsp spec) [Mass/Vol] 4.3 mmol/L 3.3-5.1 [facility] RBC Auto (Bld) [#/Vol]Ordere d By: Dahiana Oakley on 01-27-2025 RBC (Bld) [#/Vol] 4.44 10*6/uL 4.2-5.4 [facility] Screening total cholesterol/ high density lipoprotein (HDL) cholesterol ratioOrdered By: Dahiana Oakley on 01-27-2025 Cholesterol.total/Vernell sterol in HDL [Mass ratio] 5.10 {ratio} [facility] Serum creatinine measurement (mass/volume)Ordered By: Dahiana Oakley on 01-27-2025 Creatinine [Mass/Vol] 1.17 mg/dL 0.70-1.20 [facility] Serum glucose measurement (m ass/volume)Ordered By: Dahiana Oakley on 01-27-2025 Glucose [Mass/Vol] 152 mg/dL High 70-99 [facility] Serum or plasma calcium gavi urement (mass/volume)Ordered By: Dahiana Oakley on 01-27-2025 Calcium [Mass/Vol] 8.6 mg/dL 7.6-11.0 [facility] Serum or plasma cholesterol in HDL measurement (mass/volume)Ordered By: Dahiana Oakley on 01-27-2025 Cholesterol in HDL [Mass/Vol] 43 mg/dL >40 [facility] Comment on above: National Cholesterol Education Program (NCEP) guidelines:<40 mg/dL: Low HDL-cholesterol (major risk factor for CHD)>= 60 mg/dL: High HDL-cholesterol (negative risk factor for CHD)HDL-cholesterol is affected by a number of factors, e.g. smoking, exercise, hormones, sex and age. Serum or plasma cholesterol measurement (mass/volume)Ordered By: Dahiana Oakley on 01-27-2025 Cholesterol [Mass/Vol] 220 mg/dL High <201 [facility] Comment on above: Cholesterol level, D esirable <200 mg/dLBorderline high cholesterol 200-239 mg/dLHigh cholesterol >=240 mg/dLRecommendations of the NCEP Adult Treatment Panel for the following risk-cutoff thresholds for the [place] population. Serum or plasma urea nitroge n measurement (mass/volume)Ordered By: Dahiana Oakley on 01-27-2025 Urea nitrogen [Mass/Vol] 22 mg/dL High - [facility] Sodium levelOrdered By: Jacey Oakley on 01-27-2025 Sodium [Moles/Vol] 138 mmol/L 133-145 [facility] TSH DL <= 0.005 mIU/L QnOrde red By: Dahiana Oakley on 01-27-2025 TSH Qn 3.260 uIU/mL 0.300-4.200 [facility] Thyroid Stim Hormone (TSH)on 01-27-2025 TSH 3.260 uIU/mL Normal 0.300-4.200 [facility] Comment on above: Order Comment: Comme nts: NPO at [place] prior to lipid panel Performed By: #### L 501.9520, L500.4100, L500.2500, L100.0100 #### [facility] Laboratory [address] [facility] [place], [address] Triglycerides measurementOrd ered By: Dahiana Okaley on 01-27-2025 Triglyceride [Mass/Vol] 218 mg/dL High <199 [facility] Comment on above: The drugs N-Acetylcy steine and Metamizole may falsely depress this assay. Normal range: <150 mg/dLBorderline High: 150-199 mg/dLHigh: 200-499 mg/dLVery High: >500 mg/dL White blood cell (WBC) count Ordered By: Dahiana Oakley on 01-27-2025 WBC (Bld) [#/Vol] 5.4 10*3/uL 4.4-11.0 [facility] 12 Lead EKGon 01-26-2025 12 Lead EKG [facility] Cardiovascular Services [address] [place] [address] 12 Lead EKG 01/26/25 1452 MR#: [id number] Acct: [id number] Name: THIAGO PIERRE Rep #: [id number] : 1955 69 From: Misbah Marcum MD Attending Dr: Dr. Sidra Irving MD Status: AD M DENIS Ordering Dr: Sidra Irving MD Date: 01/26/25 Location: [facility] Sex: F C Admitted: 01/26/25 Test Reason [...] Abnormal ECG Confirmed by MISBAH MARCUM MD ([id number]), commissioning editor SMITH LOPEZ ([id number]) on 01/27/2025 9:02:46 AM Referred By: Confirmed By: MISBAH MARCUM MD 01/27/25 0902 Date Misbah Marcum MD CC: [facility] CREDENTIALING ANALYST-C Sarah Toth; Dr. Sidra Irving MD Signed Normal [facility] Absolute lymphocyte countOrd ered By: Dahiana Oakley on 01-26-2025 Lymphocytes Auto (Unsp spec) [#/Vol] 2.36 10*3/uL 0.83-4.51 [facility] Absolute neutrophil countOrd ered By: Dahiana Oakley on 01-26-2025 Neutrophils (Bld) [#/Vol] 2.9 10*3/uL 2.0-7.7 [facility] Anion gap in Serum or Plasma Ordered By: Cornelia Murillo on 01-26-2025 Anion gap [Moles/Vol] 12 mmol/L -15 [facility] Automated lymphocyte count a s percentage of total leukocytesOrdered By: Dahiana Oakley on 01-26-2025 Lymphocytes/100 WBC Auto (Unsp spec) 39.4 % - [facility] BUN/creatinine ratioOrdered By: Cornelia Murillo on 01-26-2025 Urea nitrogen/Creatinine [Mass ratio] 22.8 mg/mg High 10-20 [facility] Basic Metabolic Profile (BMP )on 08-18-2025 BUN/CRE 22.8 RATIO High 10-20 [facility] Comment on above: Performed By: #### L 500.2500 ####[facility] [address] [place], [address] Calcium [Mass/Vol] 9.4 mg/dL Normal 7.6-11.0 [facility] Comment on above: Performed By: #### L 500.2500 ####[facility] [address] [place], [address] Chloride [Moles/Vol] 105 mmol/L Normal 98-108 [facility] Comment on above: Performed By: #### L 500.2500 ####[facility] [address] [place], [address] CO2 [Moles/Vol] 22.0 mmol/L Normal 21.0-32.0 [facility] Comment on above: Performed By: #### L 500.2500 ####[facility] [address] [place], [address] Creatinine [Mass/Vol] 1.09 mg/dL Normal 0.70-1.20 [facility] Comment on above: Performed By: #### L 500.2500 ####[facility] [address] [place], [address] ECRCL 59.78 ml/min Normal 50-250 [facility] Comment on above: Performed By: #### L 500.2500 ####[facility] [address] [place], [address] GAP 12 Normal 5-15 [facility] Comment on above: Performed By: #### L 500.2500 ####[facility] [address] [place], [address] GFR/1.73 sq M.predicted among non-blacks MDRD (S/P/Bld) [Vol rate/Area] 54 mL/min/{1.73_m2} Low >60 [facility] Comment on above: Result Comment: mL/m in/1.73m2 CKD-EPI Creatinine Equation (2020) Performed By: #### L 500.2500 ####[facility] [address] [place], [address] Glucose [Mass/Vol] 139 mg/dL High 70-99 [facility] Comment on above: Performed By: #### L 500.2500 ####[facility] [address] [place], [address] Potassium [Moles/Vol] 4.2 mmol/L Normal 3.3-5.1 [facility] Comment on above: Performed By: #### L 500.2500 ####[facility] [address] [place], [address] Sodium [Moles/Vol] 139 mmol/L Normal 133-145 [facility] Comment on above: Performed By: #### L 500.2500 ####[facility] [address] [place], [address] Urea nitrogen [Mass/Vol] 25 mg/dL High 4-19 [facility] Comment on above: Performed By: #### L 500.2500 ####[facility] [address] [place], [address] Basophil percentageOrdered B y: Dahiana Oakley on 01-26-2025 Basophils/100 WBC (Bld) 0.5 % 0-1 [facility] Bedside Glucoseon 01-26-2025 FINGERSTICK GLU 153 mg/dL High 74-106 [facility] Comment on above: Result Comment: AMARI GEMENT OF PATIENT CARE PER NURSING PROTOCOL Performed By: #### L 501.9520, L500.4100, L500.2500, L100.0100 #### [facility] Laboratory [address] [place], [address] FINGERSTICK GLU 113 mg/dL High 74-106 [facility] Comment on above: Result Comment: AMARI GEMENT OF PATIENT CARE PER NURSING PROTOCOL Performed By: #### L 501.9520, L500.9770, L500.2500, L100.0100 #### [facility] Laboratory [address] [place], [address] Brain/Head without Contrasto n 01-26-2025 Brain/Head without Contrast [facility] Imaging Services [address] [place] [address] Brain/Head without Contrast MR#: [id number] Acct: [id number] Name: THIAGO PIERRE Rep #: [id number] : 1955 F 69 From: Devan Pillai MD PCP: ARIA Long, CREDENTIALING ANALYST-C Status: REG ER Study: Brain/Head without Contrast Date of Exam: 01/09 02/02 Exam# [id number] Ordering Dr: Cornelia Murillo MD PROCEDURE: BRAIN/HEAD [...] microvascular ischemia and volume loss. Reading Location: [id number] CC: [facility] CREDENTIALING ANALYST-C Sarah Toth; Dr. Cornelia Murillo MD Check Cashier: Signed Normal [facility] CBC W/Diff, Automatedon 01-09 Absolute Lymph 2.36 X10 3/uL Normal 0.83-4.51 [facility] Comment on above: Performed By: #### L 100.0100 ####[facility] [address] [place], [address] Absolute Neut 2.9 X10 3/uL Normal 2.0-7.7 [facility] Comment on above: Performed By: #### L 100.0100 ####[facility] [address] [place], [address] Basophils/100 WBC (Bld) 0.5 % Normal 0-1 [facility] Comment on above: Performed By: #### L 100.0100 ####[facility] [address] [place], [address] Eosinophils/100 WBC (Bld) 2.7 % Normal 0-5 [facility] Comment on above: Performed By: #### L 100.0100 ####[facility] [address] [place], [address] Erythrocyte distribution width (RBC) [Ratio] 13.2 % Normal 11.6-14.6 [facility] Comment on above: Performed By: #### L 100.0100 ####[facility] [address] [place], [address] Hematocrit (Bld) [Volume fraction] 40.8 % Normal 37-47 [facility] Comment on above: Performed By: #### L 100.0100 ####[facility] [address] [place], [address] Hemoglobin (Bld) [Mass/Vol] 13.2 g/dL Normal 12.0-15.0 [facility] Comment on above: Performed By: #### L 100.0100 ####[facility] [address] [place], [address] IG% 0.500 Normal 0.0-0.9 [facility] Comment on above: Result Comment: IG% - Immature Granulocytes (promyelocytes, myelocytes and metamyelocytes) > 1% indicates that a LEFT SHIFT is Present. Performed By: #### L 100.0100 ####[facility] [address] [place], [address] Lymphocytes/100 WBC (Bld) 39.4 % Normal 19-41 [facility] Comment on above: Performed By: #### L 100.0100 ####[facility] [address] [place], [address] MCH (RBC) [Entitic mass] 28.9 pg Normal 27.0-32.0 [facility] Comment on above: Performed By: #### L 100.0100 ####[facility] [address] [place], [address] MCHC (RBC) [Mass/Vol] 32.4 g/dL Normal 32-36 [facility] Comment on above: Performed By: #### L 100.0100 ####[facility] [address] [place], [address] MCV (RBC) [Entitic vol] 89.3 fL Normal 81-99 [facility] Comment on above: Performed By: #### L 100.0100 ####[facility] [address] [place], [address] Monocytes/100 WBC (Bld) 9.0 % Normal 0-10 [facility] Comment on above: Performed By: #### L 100.0100 ####[facility] [address] [place], [address] Neutrophils/100 WBC (Bld) 47.9 % Normal 47-70 [facility] Comment on above: Performed By: #### L 100.0100 ####[facility] [address] [place], [address] Nucleated RBC (Bld) [#/Vol] 0 10*3/uL Normal 0-5 [facility] Comment on above: Performed By: #### L 100.0100 ####[facility] [address] [place], [address] Platelet mean volume (Bld) [Entitic vol] 9.5 fL Normal 6.2-12.0 [facility] Comment on above: Performed By: #### L 100.0100 ####[facility] [address] [place], [address] Platelets (Bld) [#/Vol] 278 10*3/uL Normal 150-450 [facility] Comment on above: Performed By: #### L 100.0100 ####[facility] [address] [place], [address] RBC (Bld) [#/Vol] 4.57 10*6/uL Normal 4.2-5.4 [facility] Comment on above: Performed By: #### L 100.0100 ####[facility] [address] [place], [address] RDW SD 42.8 fl Normal 35.1-43.9 [facility] Comment on above: Performed By: #### L 100.0100 ####[facility] [address] [place], [address] WBC (Bld) [#/Vol] 6.0 10*3/uL Normal 4.4-11.0 [facility] Comment on above: Performed By: #### L 100.0100 ####[facility] [address] [place], [address] CTA Head AND Neck W/ Contras ton 01-26-2025 CTA Head AND Neck W/ Contrast [facility] Imaging Services [address] [place] [address] CTA Head AND Neck W/ Contrast MR#: [id number] Acct: [id number] Name: THIAGO PIERRE Rep #: [id number] : 1955 F 69 From: Macho rome MD PCP: Sarah Toth [facility], CREDENTIALING ANALYST-C Status: REG ER Study: CTA Head AND Neck W/ Contrast Date of Exam: Exam# [id number] Ordering Dr: Cornelia Murillo MD PROCEDURE: CTA [...] RIGHT Vertebral: Unremarkable. LEFT Vertebral: Unremarkable. Anatomy: [place] anatomy is normal. Aneurysm or [...] carotid arteries causing minimal narrowing. Reading Location: [id number] CC: [facility] CREDENTIALING ANALYST-C Sarah Toth; Dr. Cornelia Murillo MD Check Cashier: Signed Normal [facility] Carbon dioxide, total [Moles /volume] in Central venous bloodOrdered By: Cornelia Murillo on 01-26-2025 CO2 [Moles/Vol] 22.0 mmol/L 21.0-32.0 [facility] Chloride assayOrdered By: Geronimo Murillo on 01-26-2025 Chloride [Moles/Vol] 105 mmol/L 98-108 [facility] Emergency Department Summary on 01-26-2025 Emergency Department Summary [facility] Medical Records Department [address] [place] [address] Emergency Department Summary 01/26/25 MR#: [id number] Acct: [id number] Name: THIAGO PIERRE Rep #: [id number] : 1955 69 From: Cornelia Murillo MD PCP: Sarah Toth [facility], CREDENTIALING ANALYST-C Status:ADM DENIS Location: [address] History of Present Illness Chief Complaint: [...] disease Pure hypercholesterolemia Atherosclerotic heart disease of [place] coronary artery without angina pectoris Nonrheumatic mitral [...] red dye Allergy Hives Verified 01/26/25 11:33 Zlgtrwh-ROP-UvB Reductase AdvReac Severe Myalgias Verified 01/26/25 11:33 Inhibitor (Tkzhkhq-Iav-Qvj Reductase Inhibitor) Family History Father , Lung [...] at home: (more content not included)... Normal [facility] Eosinophil percentageOrdered By: Dahiana [place] on 01-26-2025 Eosinophils/100 WBC (Bld) 2.7 % 0-5 [facility] Erythrocyte distribution wid th ratioOrdered By: Dahiana Oakley on 01-26-2025 Erythrocyte distribution width (RBC) [Ratio] 13.2 % 11.6-14.6 [facility] Erythrocyte distribution wid th standard deviationOrdered By: Dahiana [place] on 01-26-2025 Erythrocyte distribution width (RBC) [Ratio] 42.8 fl 35.1-43.9 [facility] Glomerular filtration rate ( GFR) estimation/1.73 sq m using serum, plasma, or whole bOrdered By: Cornelia Murillo on 01-26-2025 GFR/1.73 sq M.predicted among non-blacks MDRD (S/P/Bld) [Vol rate/Area] 54 mL/min/{1.73_m2} Low >60 [facility] Comment on above: mL/min/1.73m2 CKD-EP I Creatinine Equation (2020) H AND P Exam - [facility] 01-26-2025 H&P Exam - Hospitalist [facility] Medical Records Department [address] [place] [address] H P Exam - Hospitalist 01/26/25 1507 MR#: [id number] Acct: [id number] Name: THIAGO PIERRE Rep #: [id number] : 1955 69 From: Dahiana [place] MD PCP: Sarah Toth [facility], CREDENTIALING ANALYST-C Status:ADM DENIS Location: [place] [address] HPI - General General Date of Admission: 01/26/25 Date of Service: 01/26/25 Chief Complaint: Transient episode of confusion HPI Narrative THIAGO PIERRE, is a 69-year-old female history of nonobstructive CAD, BiV ICD in 2016, diabetes, NICOLLE, hypertension, depression, GERD, heart failure with recovered EF presented to [facility] ED 01/26/2025 due to transient episode [...] her vision, 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 [facility] Medical History Essential hypertension Elevated troponin History of diabetes mellitus Hx of cardiomyopathy Dysarthria Medication reaction Intractable nausea and vomiting Dizziness Depression Near syncope Vertigo Carotid artery disease Pure hypercholesterolemia Atherosclerotic heart disease of [place] coronary artery without angina pectoris Nonrheumatic mitral [...] red dye Allergy Hives Verified 01/26/25 11:33 Epxnxmk-KCK-XaO Reductase AdvReac Severe Myalgias Verified 01/26/25 11:33 Inhibitor (Ymoclcr-Mnf-Wez Reductase Inhibitor) Family History (Reviewed (more content not included)... Normal [facility] Hematocrit Auto (Bld) [Volum e fraction]Ordered By: Dahiana [place] on 01-26-2025 Hematocrit (Bld) [Volume fraction] 40.8 % 37-47 [facility] Hemoglobin measurementOrdere d By: Dahiana [place] on 01-26-2025 Hemoglobin (Bld) [Mass/Vol] 13.2 g/dL 12.0-15.0 [facility] Immature granulocytes/100 WB C Auto (Bld)Ordered By: Dahiana [place] on 01-26-2025 Immature granulocytes/100 WBC (Bld) 0.500 % 0.0-0.9 [facility] Comment on above: IG% - Immature Granu locytes (promyelocytes, myelocytes and metamyelocytes) > 1% indicates that a LEFT SHIFT is Present. International normalized rat io (INR) calculationOrdered By: Dahiana [place] on 01-26-2025 INR Coag (Bld) [Relative time] 1.1 {INR} [facility] L501.4021on 01-26-2025 Trop T High Sen 15 ng/L High <=14 [facility] Comment on above: Performed By: #### L 501.4021 ####[facility] [address] [place], [address] MCV (mean corpuscular volume ) determinationOrdered By: Dahiana [place] on 01-26-2025 MCV (RBC) [Entitic vol] 89.3 fL 81-99 [facility] Mean corpuscular hemoglobin (MCH) determinationOrdered By: Dahiana [place] on 01-26-2025 MCH (RBC) [Entitic mass] 28.9 pg 27.0-32.0 [facility] Mean corpuscular hemoglobin concentration (MCHC) determinationOrdered By: Dahiana [place] on 01-26-2025 MCHC (RBC) [Mass/Vol] 32.4 g/dL 32-36 [facility] Mean platelet volume determi nationOrdered By: Dahiana [place] on 01-26-2025 Platelet mean volume (Bld) [Entitic vol] 9.5 fL 6.2-12.0 [facility] Monocyte percentageOrdered B y: Dahiana [place] on 01-26-2025 Monocytes/100 WBC (Bld) 9.0 % 0-10 [facility] Neutrophil percentageOrdered By: Dahiana [place] on 01-26-2025 Neutrophils/100 WBC (Bld) 47.9 % 47-70 [facility] Nucleated red blood cell per centageOrdered By: Dahiana [place] on 01-26-2025 Nucleated RBC/100 WBC (Bld) [Ratio] 0 % 0-5 [facility] Platelet countOrdered By: Chapin [place] on 01-26-2025 Platelets (Bld) [#/Vol] 278 10*3/uL 150-450 [facility] Potassium measurement (mass/ volume)Ordered By: Cornelia Murillo on 01-26-2025 Potassium (Unsp spec) [Mass/Vol] 4.2 mmol/L 3.3-5.1 [facility] Prothrombin Time w/INRon INR Coag (PPP) [Relative time] 1.1 {INR} Normal [facility] Comment on above: Performed By: #### L 501.9520, L500.4100, L500.2500, L100.0100 #### [facility] Laboratory [address] [place], [address] PT Coag (PPP) [Time] 14.0 s Normal 11.7-14.9 [facility] Comment on above: Performed By: #### L 501.9520, L500.4100, L500.2500, L100.0100 #### [facility] [address] [place], [address] Prothrombin timeOrdered By: Dahiana [place] on 01-26-2025 PT Coag (PPP) [Time] 14.0 s 11.7-14.9 [facility] RBC Auto (Bld) [#/Vol]Ordere d By: Dahiana [place] on 01-26-2025 RBC (Bld) [#/Vol] 4.57 10*6/uL 4.2-5.4 [facility] Serum creatinine measurement (mass/volume)Ordered By: Cornelia Murillo on 01-26-2025 Creatinine [Mass/Vol] 1.09 mg/dL 0.70-1.20 [facility] Serum glucose measurement (m ass/volume)Ordered By: Cornelia Murillo on 01-26-2025 Glucose [Mass/Vol] 139 mg/dL High 70-99 [facility] Serum or plasma calcium gavi urement (mass/volume)Ordered By: Cornelia Murillo on 01-26-2025 Calcium [Mass/Vol] 9.4 mg/dL 7.6-11.0 [facility] Serum or plasma urea nitroge n measurement (mass/volume)Ordered By: Cornelia Murillo on 01-26-2025 Urea nitrogen [Mass/Vol] 25 mg/dL High 4-19 [facility] Sodium levelOrdered By: Kyle Murillo on 01-26-2025 Sodium [Moles/Vol] 139 mmol/L 133-145 [facility] Troponin T HS 2 HRon 025 Trop T High Sen 14 ng/L Normal <=14 [facility] Comment on above: Order Comment: WAS S TILL IN ER PAST DUE TIME FOR LABS Performed By: #### L 499.0042 #### [facility] Laboratory [address] [place], [address] Troponin T HS 4 HRon 025 Trop T High Sen 11 ng/L Normal <=14 [facility] Comment on above: Performed By: #### L 501.9520, L500.4100, L500.2500, L100.0100 #### [facility] [address] [place], [address] Troponin T.cardiac [Mass/vol ume] in Serum or Plasma by High sensitivity methodOrdered By: Dahiana [place] on 01-26-2025 Troponin T.cardiac High sensitivity method [Mass/Vol] 11 ng/L <14 [facility] Troponin T.cardiac High sensitivity method [Mass/Vol] 14 ng/L <14 [facility] Troponin T.cardiac High sensitivity method [Mass/Vol] 15 ng/L High <14 [facility] Comment on above: Delta: 14 on 5-1215 White blood cell (WBC) count Ordered By: Dahiana [place] on 01-26-2025 WBC (Bld) [#/Vol] 6.0 10*3/uL 4.4-11.0 [facility] Echo Complete W/ Contraston 01-19-2025 Echo Complete W/ Contrast [facility] Cardiovascular Services [address] [place] [address] Echo Complete W/ Contrast 01/19/25 1509 MR#: [id number] Acct: [id number] Name: THIAGO PIERRE Rep #: [id number] : 1955 69 From: Misbah Marcum MD Attending Dr: Dr. Misbah Marcum MD Status: RAHAT GARCIA Ordering Dr: Misbah Marcum MD Date: 01/19/25 Location: [facility] Sex: F C Admitted: Reason For [...] 01/19/25 1738 Date Misbah Marcum MD CC: [facility] CREDENTIALING ANALYST-C Sarah Toth; Dr. Misbah Marcum MD Date Dictated: 01/19/251508 Date Transcribed: 01/19/251738 Check Cashier: Signed Normal [facility] Echocardiogram study reportO rdered By: Misbah Marcum on 01-19-2025 Study report [facility] Cardiovascular Services [address] [place] [address] Echo Complete W/ Contrast 01/19/25 1509 MR#: [id number] Acct: [id number] Name: THIAGO PIERRE Rep #:[id number] : 1955 69 From: Misbah Watson [...] Date _ Misbah Marcum MD CC: [facility] CREDENTIALING ANALYST-C Sarah Toth; Dr. Misbah Marcum MD ~ Date Dictated: 01/19/25 1509 Date Transcribed: 01/19/25 173 Check Cashier: Signed [facility] Work Phone: Emergency Department Summary on 12-28-2024 Emergency Department Summary [facility] Medical Records Department [address] [place] [address] Emergency Department Summary 12/28/24 MR#: [id number] Acct: [id number] Name: THIAGO PIERRE Rep #: [id number] : 1955 69 From: Rhea Barber DO PCP: ARIA Long, CREDENTIALING ANALYST-C Status:DEP ER Location: ED HPI History of [...] she woke up with 3 days ago. [facility] Medical History Essential hypertension Elevated troponin History of diabetes mellitus Hx of cardiomyopathy Dysarthria Medication reaction Intractable nausea and vomiting Dizziness Depression Near syncope Vertigo Carotid artery disease Pure hypercholesterolemia Atherosclerotic heart disease of [place] coronary artery without angina pectoris Nonrheumatic mitral [...] red dye Allergy Hives Verified 12/28/24 15:41 Vdnapug-RST-YqC Reductase AdvReac Severe Myalgias Verified 12/28/24 15:41 Inhibitor (Vcvqjdw-Ows-Ait Reductase Inhibitor) Family History Father , Lung [...] blurry vision, (more content not included)... Normal [facility] Cardiology Visit Reporton Cardiology Visit Report [facility] [address] [place] [address] OFFICE VISIT Date of Service: 12/25/24 MR#: [id number] Acct: [id number] Name: THIAGO PIERRE Rep #: [id number] : 1955 Provider: Dr. Misbah Marcum MD Age/Sex: 69/F Location[place] [facility] Status: Signed HPI HPI History of Present Illness Details: THIAGO FLORES, is a 69 year old white female who presents to the office today for an outpatient cardiovascular hospital follow-up visit. 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: No Accompanied by: Self Is patient in pain?: No Allergies red dye Allergy (Verified 12/25/24 14:41) Hives Kiyyvin-NDH-OcZ Reductase Inhibitor (Uekdqrk-Jcu-Tfv Reductase Inhibitor) Adverse Reaction (Severe, Verified 12/25/24 [...] fallen in the past year?: No [facility] Medical History Essential hypertension Elevated troponin History of diabetes mellitus Hx of cardiomyopathy Dysarthria Medication reaction Intractable nausea and vomiting Dizziness Depression Near syncope Vertigo Carotid artery disease Pure hypercholesterolemia Atherosclerotic heart disease of [place] coronary artery without angina pectoris Nonrheumatic mitr (more content not included)... Normal [facility] 12 Lead EKGon 11-30-2024 12 Lead EKG [facility] Cardiovascular Services [address] [place] [address] 12 Lead EKG 11/30/24 1200 MR#: [id number] Acct: [id number] Name: THIAGO PIERRE Rep #: [id number] : 1955 69 From: Misbah Marcum MD [...] Abnormal ECG Confirmed by MISBAH MARCUM MD ([id number]), commissioning editor SMITH LOPEZ ([id number]) on 12/02/2024 6:45:36 AM Referred By: Confirmed By: MISBAH MARCUM MD 12/02/2445 Date Misbah Marcum MD CC: [facility] CREDENTIALING ANALYST-C Sarah Toth; Dr. Juventino Kern MD Signed Normal [facility] Absolute lymphocyte countOrd ered By: Juventino Kern on 11-30-2024 Lymphocytes Auto (Unsp spec) [#/Vol] 2.21 10*3/uL 0.83-4.51 [facility] Absolute neutrophil countOrd ered By: Juventinocorinne Kern on 11-30-2024 Neutrophils (Bld) [#/Vol] 3.6 10*3/uL 2.0-7.7 [facility] Anion gap in Serum or Plasma Ordered By: Juventino Kern on 11-30-2024 Anion gap [Moles/Vol] 13 mmol/L 5-15 [facility] Automated lymphocyte count a s percentage of total leukocytesOrdered By: Juventino Kern on 11-30-2024 Lymphocytes/100 WBC Auto (Unsp spec) 34.7 % 19-41 [facility] BUN/creatinine ratioOrdered By: Juventinocorinne Kern on 11-30-2024 Urea nitrogen/Creatinine [Mass ratio] 21.4 mg/mg High 03-30 [facility] Basic Metabolic Profile (BMP )on 11-30-2024 BUN/CRE 21.4 RATIO High 03-30 [facility] Comment on above: Performed By: #### L 501.9184, L500.4100, L500.2500, L100.0100 #### [facility] [address] [place], [address] Calcium [Mass/Vol] 9.0 mg/dL Normal 7.6-11.0 [facility] Comment on above: Performed By: #### L 501.9520, L500.4100, L500.2500, L100.0100 #### [facility] [address] [place], [address] Chloride [Moles/Vol] 97 mmol/L Low 98-108 [facility] Comment on above: Performed By: #### L 501.9520, L500.4100, L500.2500, L100.0100 #### [facility] [address] [place], [address] CO2 [Moles/Vol] 23.7 mmol/L Normal 21.0-32.0 [facility] Comment on above: Performed By: #### L 501.9520, L500.4100, L500.2500, L100.0100 #### [facility] [address] [place], [address] Creatinine [Mass/Vol] 1.33 mg/dL High 0.70-1.20 [facility] Comment on above: Performed By: #### L 501.9520, L500.4100, L500.2500, L100.0100 #### [facility] [address] [place], [address] ECRCL 49.10 ml/min Low 50-250 [facility] Comment on above: Performed By: #### L 501.9520, L500.4100, L500.2500, L100.0100 #### [facility] [address] [place], [address] GAP 13 Normal 5-15 [facility] Comment on above: Performed By: #### L 501.9520, L500.4100, L500.2500, L100.0100 #### [facility] [address] [place], [address] GFR/1.73 sq M.predicted among non-blacks MDRD (S/P/Bld) [Vol rate/Area] 43 mL/min/{1.73_m2} Low >60 [facility] Comment on above: Result Comment: mL/m in/1.73m2 CKD-EPI Creatinine Equation (2020) Performed By: #### L 501.9520, L500.4100, L500.2500, L100.0100 #### [facility] [address] [place], [address] Glucose [Mass/Vol] 262 mg/dL High 70-99 [facility] Comment on above: Performed By: #### L 501.9520, L500.4100, L500.2500, L100.0100 #### [facility] [address] [place], [address] Potassium [Moles/Vol] 4.3 mmol/L Normal 3.3-5.1 [facility] Comment on above: Performed By: #### L 501.9520, L500.4100, L500.2500, L100.0100 #### [facility] [address] [place], [address] Sodium [Moles/Vol] 134 mmol/L Normal 133-145 [facility] Comment on above: Performed By: #### L 501.9520, L500.4100, L500.2500, L100.0100 #### [facility] [address] [place], [address] Urea nitrogen [Mass/Vol] 28 mg/dL High 4-19 [facility] Comment on above: Performed By: #### L 501.9520, L500.4100, L500.2500, L100.0100 #### [facility] [address] [place], [address] Basophil percentageOrdered B y: Juventino Kern on 11-30-2024 Basophils/100 WBC (Bld) 0.6 % 0-1 [facility] CBC W/Diff, Automatedon 11-10 Absolute Lymph 2.21 X10 3/uL Normal 0.83-4.51 [facility] Comment on above: Performed By: #### L 501.9520, L500.4100, L500.2500, L100.0100 #### [facility] [address] [place], [address] Absolute Neut 3.6 X10 3/uL Normal 2.0-7.7 [facility] Comment on above: Performed By: #### L 501.9520, L500.4100, L500.2500, L100.0100 #### [facility] [address] [place], [address] Basophils/100 WBC (Bld) 0.6 % Normal 0-1 [facility] Comment on above: Performed By: #### L 501.9520, L500.4100, L500.2500, L100.0100 #### [facility] [address] [place], [address] Eosinophils/100 WBC (Bld) 2.2 % Normal 0-5 [facility] Comment on above: Performed By: #### L 501.9520, L500.4100, L500.2500, L100.0100 #### [facility] [address] [place], [address] Erythrocyte distribution width (RBC) [Ratio] 12.9 % Normal 11.6-14.6 [facility] Comment on above: Performed By: #### L 501.9520, L500.4100, L500.2500, L100.0100 #### [facility] [address] [place], [address] Hematocrit (Bld) [Volume fraction] 40.0 % Normal 37-47 [facility] Comment on above: Performed By: #### L 501.9520, L500.4100, L500.2500, L100.0100 #### [facility] [address] [place], [address] Hemoglobin (Bld) [Mass/Vol] 13.4 g/dL Normal 12.0-15.0 [facility] Comment on above: Performed By: #### L 501.9520, L500.4100, L500.2500, L100.0100 #### [facility] [address] [place], [address] IG% 0.300 Normal 0.0-0.9 [facility] Comment on above: Result Comment: IG% - Immature Granulocytes (promyelocytes, myelocytes and metamyelocytes) > 1% indicates that a LEFT SHIFT is Present. Performed By: #### L 501.9520, L500.4100, L500.2500, L100.0100 #### [facility] [address] [place], [address] Lymphocytes/100 WBC (Bld) 34.7 % Normal 19-41 [facility] Comment on above: Performed By: #### L 501.9520, L500.4100, L500.2500, L100.0100 #### [facility] [address] [place], [address] MCH (RBC) [Entitic mass] 29.1 pg Normal 27.0-32.0 [facility] Comment on above: Performed By: #### L 501.9520, L500.4100, L500.2500, L100.0100 #### [facility] [address] [place], [address] MCHC (RBC) [Mass/Vol] 33.5 g/dL Normal 32-36 [facility] Comment on above: Performed By: #### L 501.9520, L500.4100, L500.2500, L100.0100 #### [facility] [address] [place], [address] MCV (RBC) [Entitic vol] 86.8 fL Normal 81-99 [facility] Comment on above: Performed By: #### L 501.9520, L500.4100, L500.2500, L100.0100 #### [facility] [address] [place], [address] Monocytes/100 WBC (Bld) 5.3 % Normal 0-10 [facility] Comment on above: Performed By: #### L 501.9520, L500.4100, L500.2500, L100.0100 #### [facility] [address] [place], [address] Neutrophils/100 WBC (Bld) 56.9 % Normal 47-70 [facility] Comment on above: Performed By: #### L 501.9520, L500.4100, L500.2500, L100.0100 #### [facility] [address] [place], [address] Nucleated RBC (Bld) [#/Vol] 0 10*3/uL Normal 0-5 [facility] Comment on above: Performed By: #### L 501.9520, L500.4100, L500.2500, L100.0100 #### [facility] [address] [place], [address] Platelet mean volume (Bld) [Entitic vol] 9.2 fL Normal 6.2-12.0 [facility] Comment on above: Performed By: #### L 501.9520, L500.4100, L500.2500, L100.0100 #### [facility] [address] [place], [address] Platelets (Bld) [#/Vol] 280 10*3/uL Normal 150-450 [facility] Comment on above: Performed By: #### L 501.9520, L500.4100, L500.2500, L100.0100 #### [facility] [address] [place], [address] RBC (Bld) [#/Vol] 4.61 10*6/uL Normal 4.2-5.4 [facility] Comment on above: Performed By: #### L 501.9520, L500.4100, L500.2500, L100.0100 #### [facility] [address] [place], [address] RDW SD 40.4 fl Normal 35.1-43.9 [facility] Comment on above: Performed By: #### L 501.9520, L500.4100, L500.2500, L100.0100 #### [facility] [address] [place], [address] WBC (Bld) [#/Vol] 6.4 10*3/uL Normal 4.4-11.0 [facility] Comment on above: Performed By: #### L 501.9520, L500.4100, L500.2500, L100.0100 #### [facility] [address] [place], [address] Carbon dioxide, total [Moles /volume] in Central venous bloodOrdered By: Juventino Kern on 11-30-2024 CO2 [Moles/Vol] 23.7 mmol/L 21.0-32.0 [facility] Chest PA and Lateralon 11-30 Chest PA and Lateral [facility] Imaging Services [address] [place] [address] Chest PA and Lateral MR#: [id number] Acct: [id number] Name: THIAGO PIERRE Rep #: [id number] : 1955 F 69 From: Andree Pierson nd, MD PCP: ARIA Long, CREDENTIALING ANALYST-C Status: REG ER Study: Chest PA and Lateral Date of Exam: 11/30/24 Exam# [id number] Ordering Dr: Juventino Kern MD PROCEDURE: CHEST [...] Lateral IMPRESSION: NO ACUTE FINDINGS. Reading Location: [id number] CC: [facility] CREDENTIALING ANALYST-C Sarah Toth; Dr. Juventino Kern MD Check Cashier: Signed Normal [facility] Chloride assayOrdered By: Annetta Kern on 11-30-2024 Chloride [Moles/Vol] 97 mmol/L Low 98-108 [facility] Emergency Department Summary on 11-30-2024 Emergency Department Summary [facility] Medical Records Department [address] [place] [address] Emergency Department Summary 11/30/24 MR#: [id number] Acct: [id number] Name: THIAGO PIERRE Rep #: [id number] : 1955 69 From: Juventino Kern MD PCP: ARIA Long, CREDENTIALING ANALYST-C Status:REG ER Location: ED HPI History of [...] history of dilated cardiomyopathy. 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 Assessment was atherosclerotic heart disease of [place] coronary vessels without anginal practice, chronic. Patient [...] disease Pure hypercholesterolemia Atherosclerotic heart disease of [place] coronary artery without angina pectoris Nonrheumatic mitral [...] H istor (more content not included)... Normal [facility] Eosinophil percentageOrdered By: Juventino Kern on 11-30-2024 Eosinophils/100 WBC (Bld) 2.2 % 0-5 [facility] Erythrocyte distribution wid th ratioOrdered By: Juventino Kern on 11-30-2024 Erythrocyte distribution width (RBC) [Ratio] 12.9 % 11.6-14.6 [facility] Erythrocyte distribution wid th standard deviationOrdered By: Juventnio Kern on 11-30-2024 Erythrocyte distribution width (RBC) [Ratio] 40.4 fl 35.1-43.9 [facility] Glomerular filtration rate ( GFR) estimation/1.73 sq m using serum, plasma, or whole bOrdered By: Juventino Kern on 11-30-2024 GFR/1.73 sq M.predicted among non-blacks MDRD (S/P/Bld) [Vol rate/Area] 43 mL/min/{1.73_m2} Low >60 [facility] Comment on above: mL/min/1.73m2 CKD-EP I Creatinine Equation (2020) Hematocrit Auto (Bld) [Volum e fraction]Ordered By: Juventinocorinne Kern on 11-30-2024 Hematocrit (Bld) [Volume fraction] 40.0 % 37-47 [facility] Hemoglobin measurementOrdere d By: Juventinocorinne Kern on 11-30-2024 Hemoglobin (Bld) [Mass/Vol] 13.4 g/dL 12.0-15.0 [facility] Immature granulocytes/100 WB C Auto (Bld)Ordered By: Juventinocorinne Kern on 11-30-2024 Immature granulocytes/100 WBC (Bld) 0.300 % 0.0-0.9 [facility] Comment on above: IG% - Immature Granu locytes (promyelocytes, myelocytes and metamyelocytes) > 1% indicates that a LEFT SHIFT is Present. L499.0042on 11-30-2024 Trop T High Sen 15 ng/L High <=14 [facility] Comment on above: Performed By: #### L 501.9520, L500.4100, L500.2500, L100.0100 #### [facility] [address] [place], [address] L499.0043on 11-30-2024 Trop T High Sen Normal <=14 [facility] Comment on above: Result Comment: Canc elled via OM: Order cancelled - Patient discharged Performed By: #### L 499.0043 #### [facility] [address] [place], [address] L501.4021on 11-30-2024 Trop T High Sen 14 ng/L Normal <=14 [facility] Comment on above: Performed By: #### L 499.0043 #### [facility] [address] [place], [address] L503.7505on 11-30-2024 Natriuretic peptide B (Bld) [Mass/Vol] 172 pg/mL Normal <=900 [facility] Comment on above: Result Comment: Hear t Failure Unlikely: < 300 pg/mL Heart Failure Likely < 50 Years: > 450 pg/mL 50-75 Years: > 900 pg/mL >75 Years: > 1800 pg/mL Performed By: #### L 501.9520, L500.4100, L500.2500, L100.0100 #### [facility] [address] [place], [address] MCV (mean corpuscular volume ) determinationOrdered By: Juventino Kern on 11-30-2024 MCV (RBC) [Entitic vol] 86.8 fL 81-99 [facility] Mean corpuscular hemoglobin (MCH) determinationOrdered By: Juventino Kern on 11-30-2024 MCH (RBC) [Entitic mass] 29.1 pg 27.0-32.0 [facility] Mean corpuscular hemoglobin concentration (MCHC) determinationOrdered By: Juventinocorinne Kern on 11-30-2024 MCHC (RBC) [Mass/Vol] 33.5 g/dL 32-36 [facility] Mean platelet volume determi nationOrdered By: Juventinocorinne Kern on 11-30-2024 Platelet mean volume (Bld) [Entitic vol] 9.2 fL 6.2-12.0 [facility] Monocyte percentageOrdered B y: [facility] 11-[facility] Monocytes/100 WBC (Bld) 5.3 % 0-10 [facility] Natriuretic peptide.B prohor akin N-Terminal [Mass/volume] in Serum or PlasmaOrdered By: Juventino Kern on 11-30-2024 Natriuretic peptide.B prohormone N-Terminal [Mass/Vol] 172 pg/mL <900 [facility] Comment on above: Heart Failure Unlike ly: < 300 pg/mLHeart Failure Likely< 50 Years: > 450 pg/mL50-75 Years: > 900 pg/mL>75 Years: > 1800 pg/mL Neutrophil percentageOrdered By: Juventino Kern on 11-30-2024 Neutrophils/100 WBC (Bld) 56.9 % 47-70 [facility] Nucleated red blood cell per centageOrdered By: Juventino Kern on 11-30-2024 Nucleated RBC/100 WBC (Bld) [Ratio] 0 % 0-5 [facility] Platelet countOrdered By: Annetta Kern on 11-30-2024 Platelets (Bld) [#/Vol] 280 10*3/uL 150-450 [facility] Potassium measurement (mass/ volume)Ordered By: Juventino Kern on 11-30-2024 Potassium (Unsp spec) [Mass/Vol] 4.3 mmol/L 3.3-5.1 [facility] RBC Auto (Bld) [#/Vol]Ordere d By: Juventino Kern on 11-30-2024 RBC (Bld) [#/Vol] 4.61 10*6/uL 4.2-5.4 [facility] Serum creatinine measurement (mass/volume)Ordered By: Juventino Kern on 11-30-2024 Creatinine [Mass/Vol] 1.33 mg/dL High 0.70-1.20 [facility] Serum glucose measurement (m ass/volume)Ordered By: Juventino Kern on 11-30-2024 Glucose [Mass/Vol] 262 mg/dL High 70-99 [facility] Serum or plasma calcium gavi urement (mass/volume)Ordered By: Juventino Kern on 11-30-2024 Calcium [Mass/Vol] 9.0 mg/dL 7.6-11.0 [facility] Serum or plasma urea nitroge n measurement (mass/volume)Ordered By: Juventino Kern on 11-30-2024 Urea nitrogen [Mass/Vol] 28 mg/dL High 4-19 [facility] Sodium levelOrdered By: Juventino Kern on 11-30-2024 Sodium [Moles/Vol] 134 mmol/L 133-145 [facility] Troponin T.cardiac [Mass/vol ume] in Serum or Plasma by High sensitivity methodOrdered By: Juventino Kern on 11-30-2024 Troponin T.cardiac High sensitivity method [Mass/Vol] 15 ng/L High <14 [facility] Troponin T.cardiac High sensitivity method [Mass/Vol] 14 ng/L <14 [facility] White blood cell (WBC) count Ordered By: Juventino Kern on 11-30-2024 WBC (Bld) [#/Vol] 6.4 10*3/uL 4.4-11.0 [facility] Endocrinology Visit Reporton 10-23-2024 Endocrinology Visit Report [facility] [address] [place] [address] OFFICE VISIT Date of Service: 10/23/24 MR#: [id number] Acct: [id number] Name: THIAGO PIERRE Rep #: [id number] : 1955 Provider: EVENS gates Age/Sex: 69/F Location: [facility] Status: Signed Intake Vital Signs 07/16/24 14:30 [...] red dye Allergy (Verified 10/23/24 13:57) Hives Bcruxmp-JMQ-YtC Reductase Inhibitor (Undfguw-Ihg-Qvv Reductase Inhibitor) Adverse Reaction (Severe, Verified 10/23/24 [...] disease Pure hypercholesterolemia Atherosclerotic heart disease of [place] coronary artery without angina pectoris Nonrheumatic mitral [...] HPI Chief (more content not included)... Normal [facility] Absolute lymphocyte countOrd ered By: [facility] Sarah Toth on 10-22-2024 Lymphocytes Auto (Unsp spec) [#/Vol] 2.07 10*3/uL 0.83-4.51 [facility] Absolute neutrophil countOrd ered By: [facility] Sarah Toth on 10-22-2024 Neutrophils (Bld) [#/Vol] 3.7 10*3/uL 2.0-7.7 [facility] Anion gap in Serum or Plasma Ordered By: [facility] Sarah Toth on 10-22-2024 Anion gap [Moles/Vol] 12 mmol/L 5-15 [facility] Automated lymphocyte count a s percentage of total leukocytesOrdered By: [facility] Sarah Toth on 10-22-2024 Lymphocytes/100 WBC Auto (Unsp spec) 32.3 % 19- [facility] BUN/creatinine ratioOrdered By: [facility] Sarah Toth on 10-22-2024 Urea nitrogen/Creatinine [Mass ratio] 25.2 mg/mg High 10-20 [facility] Basophil percentageOrdered B y: [facility] Sarah Toth on 10-22-2024 Basophils/100 WBC (Bld) 0.6 % 0-1 [facility] Bilirubin, totalOrdered By: [facility] Sarah Toth on 10-22-2024 Bilirubin [Mass/Vol] 0.76 mg/dL 0.00-1.30 [facility] CBC W/Diff, Automatedon 10-09 Absolute Lymph 2.07 X10 3/uL Normal 0.83-4.51 [facility] Comment on above: Performed By: #### L 100.0100, L500.4050, L506.1001, L501.9520, L500.4100, L501.9985, L502.0500 ####[facility] [address] [facility] [place], [address] Absolute Neut 3.7 X10 3/uL Normal 2.0-7.7 [facility] Comment on above: Performed By: #### L 100.0100, L500.4050, L506.1001, L501.9520, L500.4100, L501.9985, L502.0500 ####[facility] [address] [place], [address] Basophils/100 WBC (Bld) 0.6 % Normal 0-1 [facility] Comment on above: Performed By: #### L 100.0100, L500.4050, L506.1001, L501.9520, L500.4100, L501.9985, L502.0500 ####[facility] [address] [place], [address] Eosinophils/100 WBC (Bld) 2.5 % Normal 0-5 [facility] Comment on above: Performed By: #### L 100.0100, L500.4050, L506.1001, L501.9520, L500.4100, L501.9985, L502.0500 ####[facility] [address] [place], [address] Erythrocyte distribution width (RBC) [Ratio] 12.9 % Normal 11.6-14.6 [facility] Comment on above: Performed By: #### L 100.0100, L500.4050, L506.1001, L501.9520, L500.4100, L501.9985, L502.0500 ####[facility] [address] [place], [address] Hematocrit (Bld) [Volume fraction] 40.7 % Normal 37-47 [facility] Comment on above: Performed By: #### L 100.0100, L500.4050, L506.1001, L501.9520, L500.4100, L501.9985, L502.0500 ####[facility] [address] [place], [address] Hemoglobin (Bld) [Mass/Vol] 13.5 g/dL Normal 12.0-15.0 [facility] Comment on above: Performed By: #### L 100.0100, L500.4050, L506.1001, L501.9520, L500.4100, L501.9985, L502.0500 ####[facility] [address] [place], [address] IG% 0.300 Normal 0.0-0.9 [facility] Comment on above: Result Comment: IG% - Immature Granulocytes (promyelocytes, myelocytes and metamyelocytes) > 1% indicates that a LEFT SHIFT is Present. Performed By: #### L 100.0100, L500.4050, L506.1001, L501.9520, L500.4100, L501.9985, L502.0500 ####[facility] [address] [place], [address] Lymphocytes/100 WBC (Bld) 32.3 % Normal 19-41 [facility] Comment on above: Performed By: #### L 100.0100, L500.4050, L506.1001, L501.9520, L500.4100, L501.9985, L502.0500 ####[facility] [address] [place], [address] MCH (RBC) [Entitic mass] 28.8 pg Normal 27.0-32.0 [facility] Comment on above: Performed By: #### L 100.0100, L500.4050, L506.1001, L501.9520, L500.4100, L501.9985, L502.0500 ####[facility] [address] [place], [address] MCHC (RBC) [Mass/Vol] 33.2 g/dL Normal 32-36 [facility] Comment on above: Performed By: #### L 100.0100, L500.4050, L506.1001, L501.9520, L500.4100, L501.9985, L502.0500 ####[facility] [address] [place], [address] MCV (RBC) [Entitic vol] 86.8 fL Normal 81-99 [facility] Comment on above: Performed By: #### L 100.0100, L500.4050, L506.1001, L501.9520, L500.4100, L501.9985, L502.0500 ####[facility] [address] [place], [address] Monocytes/100 WBC (Bld) 6.1 % Normal 0-10 [facility] Comment on above: Performed By: #### L 100.0100, L500.4050, L506.1001, L501.9520, L500.4100, L501.9985, L502.0500 ####[facility] [address] [place], [address] Neutrophils/100 WBC (Bld) 58.2 % Normal 47-70 [facility] Comment on above: Performed By: #### L 100.0100, L500.4050, L506.1001, L501.9520, L500.4100, L501.9985, L502.0500 ####[facility] [address] [place], [address] Nucleated RBC (Bld) [#/Vol] 0 10*3/uL Normal 0-5 [facility] Comment on above: Performed By: #### L 100.0100, L500.4050, L506.1001, L501.9520, L500.4100, L501.9985, L502.0500 ####[facility] [address] [place], [address] Platelet mean volume (Bld) [Entitic vol] 9.2 fL Normal 6.2-12.0 [facility] Comment on above: Performed By: #### L 100.0100, L500.4050, L506.1001, L501.9520, L500.4100, L501.9985, L502.0500 ####[facility] [address] [place], [address] Platelets (Bld) [#/Vol] 274 10*3/uL Normal 150-450 [facility] Comment on above: Performed By: #### L 100.0100, L500.4050, L506.1001, L501.9520, L500.4100, L501.9985, L502.0500 ####[facility] [address] [place], [address] RBC (Bld) [#/Vol] 4.69 10*6/uL Normal 4.2-5.4 [facility] Comment on above: Performed By: #### L 100.0100, L500.4050, L506.1001, L501.9520, L500.4100, L501.9985, L502.0500 ####[facility] [address] [place], [place], [id number] RDW SD 40.4 fl Normal 35.1-43.9 [facility] Comment on above: Performed By: #### L 100.0100, L500.4050, L506.1001, L501.9520, L500.4100, L501.9985, L502.0500 ####[facility] [address] [place], [address] WBC (Bld) [#/Vol] 6.4 10*3/uL Normal 4.4-11.0 [facility] Comment on above: Performed By: #### L 100.0100, L500.4050, L506.1001, L501.9520, L500.4100, L501.9985, L502.0500 ####[facility] [address] [place], [address] Calculated very low density lipoprotein (VLDL) cholesterol measurementOrdered By: [facility] aSrah Toth on 10-22-2024 Calculated very low density lipoprotein (VLDL) cholesterol measurement 36 mg/dL 5-40 [facility] Carbon dioxide, total [Moles /volume] in Central venous bloodOrdered By: [facility] Sarah Toth on 10-22-2024 CO2 [Moles/Vol] 21.5 mmol/L 21.0-32.0 [facility] Chloride assayOrdered By: [facility] Sarah Toth on 10-22-2024 Chloride [Moles/Vol] 102 mmol/L 98-108 [facility] Comprehensive Metabolic Prof ilon 10-22-2024 Albumin [Mass/Vol] 4.0 g/dL Normal 3.4-4.8 [facility] Comment on above: Performed By: #### L 100.0100, L500.4050, L506.1001, L501.9520, L500.4100, L501.9985, L502.0500 ####[facility] [address] [place], [address] Albumin/Globulin [Mass ratio] 1.4 {ratio} Normal 0.9-2.4 [facility] Comment on above: Performed By: #### L 100.0100, L500.4050, L506.1001, L501.9520, L500.4100, L501.9985, L502.0500 ####[facility] [address] [place], [address] ALK PHOS 86 U/L Normal 35-104 [facility] Comment on above: Performed By: #### L 100.0100, L500.4050, L506.1001, L501.9520, L500.4100, L501.9985, L502.0500 ####[facility] [address] [place], [address] ALT [Catalytic activity/Vol] 14 U/L Normal <=34 [facility] Comment on above: Performed By: #### L 100.0100, L500.4050, L506.1001, L501.9520, L500.4100, L501.9985, L502.0500 ####[facility] [address] [place], [address] AST [Catalytic activity/Vol] 16 U/L Normal <=31 [facility] Comment on above: Performed By: #### L 100.0100, L500.4050, L506.1001, L501.9520, L500.4100, L501.9985, L502.0500 ####[facility] [address] [place], [address] Bilirubin [Mass/Vol] 0.76 mg/dL Normal 0.00-1.30 [facility] Comment on above: Performed By: #### L 100.0100, L500.4050, L506.1001, L501.9520, L500.4100, L501.9985, L502.0500 ####[facility] [address] [place], [address] BUN/CRE 25.2 RATIO High 10-20 [facility] Comment on above: Performed By: #### L 100.0100, L500.4050, L506.1001, L501.9520, L500.4100, L501.9985, L502.0500 ####[facility] [address] [place], [address] Calcium [Mass/Vol] 9.1 mg/dL Normal 7.6-11.0 [facility] Comment on above: Performed By: #### L 100.0100, L500.4050, L506.1001, L501.9520, L500.4100, L501.9985, L502.0500 ####[facility] [address] [place], [address] Chloride [Moles/Vol] 102 mmol/L Normal 98-108 [facility] Comment on above: Performed By: #### L 100.0100, L500.4050, L506.1001, L501.9520, L500.4100, L501.9985, L502.0500 ####[facility] [address] [place], [address] CO2 [Moles/Vol] 21.5 mmol/L Normal 21.0-32.0 [facility] Comment on above: Performed By: #### L 100.0100, L500.4050, L506.1001, L501.9520, L500.4100, L501.9985, L502.0500 ####[facility] [address] [place], [place], [phone](912) Creatinine [Mass/Vol] 1.09 mg/dL Normal 0.70-1.20 [facility] Comment on above: Performed By: #### L 100.0100, L500.4050, L506.1001, L501.9520, L500.4100, L501.9985, L502.0500 ####[facility] [address] [place], [place], [phone](131) GAP 12 Normal 5-15 [facility] Comment on above: Performed By: #### L 100.0100, L500.4050, L506.1001, L501.9520, L500.4100, L501.9985, L502.0500 ####[facility] [address] [place], [place], [phone]692) GFR/1.73 sq M.predicted among non-blacks MDRD (S/P/Bld) [Vol rate/Area] 54 mL/min/{1.73_m2} Low >60 [facility] Comment on above: Result Comment: mL/m in/1.73m2 CKD-EPI Creatinine Equation (2020) Performed By: #### L 100.0100, L500.4050, L506.1001, L501.9520, L500.4100, L501.9985, L502.0500 ####[facility] [address] [place], [place], [phone](762) Globulin (S) [Mass/Vol] 2.8 g/dL Normal 2.2-4.2 [facility] Comment on above: Performed By: #### L 100.0100, L500.4050, L506.1001, L501.9520, L500.4100, L501.9985, L502.0500 ####[facility] [address] [place], [address] Glucose [Mass/Vol] 166 mg/dL High 70-99 [facility] Comment on above: Performed By: #### L 100.0100, L500.4050, L506.1001, L501.9520, L500.4100, L501.9985, L502.0500 ####[facility] [address] [place], [address] Potassium [Moles/Vol] 4.7 mmol/L Normal 3.3-5.1 [facility] Comment on above: Performed By: #### L 100.0100, L500.4050, L506.1001, L501.9520, L500.4100, L501.9985, L502.0500 ####[facility] [address] [place], [address] Sodium [Moles/Vol] 135 mmol/L Normal 133-145 [facility] Comment on above: Performed By: #### L 100.0100, L500.4050, L506.1001, L501.9520, L500.4100, L501.9985, L502.0500 ####[facility] [address] [place], [address] T PROT 6.8 g/dL Normal 5.9-8.4 [facility] Comment on above: Performed By: #### L 100.0100, L500.4050, L506.1001, L501.9520, L500.4100, L501.9985, L502.0500 ####[facility] [address] [place], [address] Urea nitrogen [Mass/Vol] 28 mg/dL High 4-19 [facility] Comment on above: Performed By: #### L 100.0100, L500.4050, L506.1001, L501.9520, L500.4100, L501.9985, L502.0500 ####[facility] [address] [place], [place], [id number] Eosinophil percentageOrdered By: [facility] Sarah Toth on 10-22-2024 Eosinophils/100 WBC (Bld) 2.5 % 0-5 [facility] Erythrocyte distribution wid th ratioOrdered By: [facility] Navneet on 10-22-2024 Erythrocyte distribution width (RBC) [Ratio] 12.9 % 11.6-14.6 [facility] Erythrocyte distribution wid th standard deviationOrdered By: [facility] Navneet on 10-22-2024 Erythrocyte distribution width (RBC) [Ratio] 40.4 fl 35.1-43.9 [facility] Glomerular filtration rate ( GFR) estimation/1.73 sq m using serum, plasma, or whole bOrdered By: [facility] Toth on 10-22-2024 GFR/1.73 sq M.predicted among non-blacks MDRD (S/P/Bld) [Vol rate/Area] 54 mL/min/{1.73_m2} Low >60 [facility] Comment on above: mL/min/1.73m2 CKD-EP I Creatinine Equation (2020) Hematocrit Auto (Bld) [Volum e fraction]Ordered By: [facility] Sarah Toth on 10-22-2024 Hematocrit (Bld) [Volume fraction] 40.7 % 37-47 [facility] Hemoglobin A1con 10-22-2024 HbA1c (Bld) [Mass fraction] 7.8 % High <=5.6 [facility] Comment on above: Result Comment: Norm al < 5.7 % Prediabetic 5.7 - 6.4 % Diabetic >or= 6.5 % Please note range changes. Performed By: #### L 100.0100, L500.4050, L506.1001, L501.9520, L500.4100, L501.9985, L502.0500 ####[facility] [address] [place], [place], [phone] Hemoglobin A1c percentageOrd ered By: [facility] Sarahmariluz Toth on 10-22-2024 HbA1c (Bld) [Mass fraction] 7.8 % High <5.7 [facility] Comment on above: Normal < 5.7 % Predi abetic 5.7 - 6.4 % Diabetic >or= 6.5 % Please note range changes. Hemoglobin measurementOrdere d By: [facility] Sarah Navneet on 10-22-2024 Hemoglobin (Bld) [Mass/Vol] 13.5 g/dL 12.0-15.0 [facility] Immature granulocytes/100 WB C Auto (Bld)Ordered By: [facility] Navneet on 10-22-2024 Immature granulocytes/100 WBC (Bld) 0.300 % 0.0-0.9 [facility] Comment on above: IG% - Immature Granu locytes (promyelocytes, myelocytes and metamyelocytes) > 1% indicates that a LEFT SHIFT is Present. LDL calc ser/plasOrdered By: [facility] Navneet on 10-22-2024 Cholesterol in LDL [Mass/Vol] 119 mg/dL [facility] Comment on above: Nxkejnwoei=370-578 m g/dL & Higher Nldn=700 mg/dL or greater Laboratory - Chemistry and C hemistry - challengeOrdered By: [facility] Navneet on 10-22-2024 AST [Catalytic activity/Vol] 16 U/L <32 [facility] Lipid Profileon 10-22-2024 CHOL:HDL 3.93 Normal [facility] Comment on above: Performed By: #### L 100.0100, L500.4050, L506.1001, L501.9520, L500.4100, L501.9985, L502.0500 ####[facility] [address] [place], [place], [id number] Cholesterol [Mass/Vol] 207 mg/dL High <=200 [facility] Comment on above: Result Comment: Chol esterol level, Desirable <200 mg/dL Borderline high cholesterol 200-239 mg/dL High cholesterol >=240 mg/dL Recommendations of the NCEP Adult Treatment Panel for the following risk-cutoff thresholds for the [place] population. Performed By: #### L 100.0100, L500.4050, L506.1001, L501.9520, L500.4100, L501.9985, L502.0500 ####[facility] [address] [place], [address] Cholesterol in HDL [Mass/Vol] 53 mg/dL Normal [facility] Comment on above: Result Comment: Joanie onal Cholesterol Education Program (NCEP) guidelines: <40 mg/dL: Low HDL-cholesterol (major risk factor for CHD) >= 60 mg/dL: High HDL-cholesterol (negative risk factor for CHD) HDL-cholesterol is affected by a number of factors, e.g. smoking, exercise, hormones, sex and age. Performed By: #### L 100.0100, L500.4050, L506.1001, L501.9520, L500.4100, L501.9985, L502.0500 ####[facility] [address] [place], [address] Cholesterol in LDL [Mass/Vol] 119 mg/dL Normal [facility] Comment on above: Result Comment: Bord mcyhgu=014-474 mg/dL Higher Hsei=507 mg/dL or greater Performed By: #### L 100.0100, L500.4050, L506.1001, L501.9520, L500.4100, L501.9985, L502.0500 ####[facility] [address] [place], [address] Cholesterol in VLDL [Mass/Vol] 36 mg/dL Normal 5-40 [facility] Comment on above: Performed By: #### L 100.0100, L500.4050, L506.1001, L501.9520, L500.4100, L501.9985, L502.0500 ####[facility] [address] [place], [address] Triglyceride [Mass/Vol] 178 mg/dL Normal [facility] Comment on above: Result Comment: The drugs N-Acetylcysteine and Metamizole may falsely depress this assay. Normal range: <150 mg/dL Borderline High: 150-199 mg/dL High: 200-499 mg/dL Very High: >500 mg/dL Performed By: #### L 100.0100, L500.4050, L506.1001, L501.9520, L500.4100, L501.9985, L502.0500 ####[facility] [address] [place], [place], [id number] MCV (mean corpuscular volume ) determinationOrdered By: [facility] Sarah Toth on 10-22-2024 MCV (RBC) [Entitic vol] 86.8 fL 81-99 [facility] Mean corpuscular hemoglobin (MCH) determinationOrdered By: [facility] Sarah Toth on 10-22-2024 MCH (RBC) [Entitic mass] 28.8 pg 27.0-32.0 [facility] Mean corpuscular hemoglobin concentration (MCHC) determinationOrdered By: [facility] Sarah Toth on 10-22-2024 MCHC (RBC) [Mass/Vol] 33.2 g/dL 32-36 [facility] Mean platelet volume determi nationOrdered By: [facility] Sarah Toth on 10-22-2024 Platelet mean volume (Bld) [Entitic vol] 9.2 fL 6.2-12.0 [facility] Microalbumin,Random Urineon 10-22-2024 MICROALBUMIN,UR 66.5 mg/L Normal NO RANGE EST. [facility] Comment on above: Performed By: #### L 100.0100, L500.4050, L506.1001, L501.9520, L500.4100, L501.9985, L502.0500 ####[facility] [address] [place], [place], [id number] Monocyte percentageOrdered B y: [facility] Sarah Toth on 10-22-2024 Monocytes/100 WBC (Bld) 6.1 % 0-10 [facility] Neutrophil percentageOrdered By: [facility] Sarah Toth on 10-22-2024 Neutrophils/100 WBC (Bld) 58.2 % 47-70 [facility] Nucleated red blood cell per centageOrdered By: [facility] Sarah Toth on 10-22-2024 Nucleated RBC/100 WBC (Bld) [Ratio] 0 % 0-5 [facility] Platelet countOrdered By: [facility] Sarah Toth on 10-22-2024 Platelets (Bld) [#/Vol] 274 10*3/uL 150-450 [facility] Potassium measurement (mass/ volume)Ordered By: [facility] Sarah Toth on 10-22-2024 Potassium (Unsp spec) [Mass/Vol] 4.7 mmol/L 3.3-5.1 [facility] RBC Auto (Bld) [#/Vol]Ordere d By: [facility] Sarah Toth on 10-22-2024 RBC (Bld) [#/Vol] 4.69 10*6/uL 4.2-5.4 [facility] Screening total cholesterol/ high density lipoprotein (HDL) cholesterol ratioOrdered By: [facility] Sarah Toth on 10-22-2024 Cholesterol.total/Vernell sterol in HDL [Mass ratio] 3.93 {ratio} [facility] Serum creatinine measurement (mass/volume)Ordered By: [facility] Sarah Toth on 10-22-2024 Creatinine [Mass/Vol] 1.09 mg/dL 0.70-1.20 [facility] Serum globulin measurementOr dered By: [facility] Sarah Toth on 10-22-2024 Globulin (S) [Mass/Vol] 2.8 g/dL 2.2-4.2 [facility] Serum glucose measurement (m ass/volume)Ordered By: [facility] Sarah Toth on 10-22-2024 Glucose [Mass/Vol] 166 mg/dL High 70-99 [facility] Serum or plasma alanine toribio otransferase (ALT) measurementOrdered By: [facility] Sarah Toth on 10-22-2024 ALT [Catalytic activity/Vol] 14 U/L <35 [facility] Serum or plasma albumin gavi urement (mass/volume)Ordered By: [facility] Sarah Toth on 10-22-2024 Albumin [Mass/Vol] 4.0 g/dL 3.4-4.8 [facility] Serum or plasma albumin/glob ulin mass ratioOrdered By: [facility] Navneet on 10-22-2024 Albumin/Globulin [Mass ratio] 1.4 {ratio} 0.9-2.4 [facility] Serum or plasma alkaline david sphatase measurementOrdered By: [facility] Navneet on 10-22-2024 ALP [Catalytic activity/Vol] 86 U/L 35-104 [facility] Serum or plasma calcium gavi urement (mass/volume)Ordered By: [facility] Navneet on 10-22-2024 Calcium [Mass/Vol] 9.1 mg/dL 7.6-11.0 [facility] Serum or plasma cholesterol in HDL measurement (mass/volume)Ordered By: [facility] Navneet on 10-22-2024 Cholesterol in HDL [Mass/Vol] 53 mg/dL >40 [facility] Comment on above: National Cholesterol Education Program (NCEP) guidelines:<40 mg/dL: Low HDL-cholesterol (major risk factor for CHD)>= 60 mg/dL: High HDL-cholesterol (negative risk factor for CHD)HDL-cholesterol is affected by a number of factors, e.g. smoking, exercise, hormones, sex and age. Serum or plasma cholesterol measurement (mass/volume)Ordered By: [facility] Navneet on 10-22-2024 Cholesterol [Mass/Vol] 207 mg/dL High <201 [facility] Comment on above: Cholesterol level, D esirable <200 mg/dLBorderline high cholesterol 200-239 mg/dLHigh cholesterol >=240 mg/dLRecommendations of the NCEP Adult Treatment Panel for the following risk-cutoff thresholds for the [place] population. Serum or plasma urea nitroge n measurement (mass/volume)Ordered By: [facility] Sarah Navneet on 10-22-2024 Urea nitrogen [Mass/Vol] 28 mg/dL High 4-19 [facility] Sodium levelOrdered By: [facility] Navneet 10-22-2024 Sodium [Moles/Vol] 135 mmol/L 133-145 [facility] TSH DL <= 0.005 mIU/L QnOrde red By: [facility] aNvneet on 10-22-2024 TSH Qn 3.300 uIU/mL 0.300-4.200 [facility] Thyroid Stim Hormone (TSH)on 10-22-2024 TSH 3.300 uIU/mL Normal 0.300-4.200 [facility] Comment on above: Performed By: #### L 100.0100, L500.4050, L506.1001, L501.9520, L500.4100, L501.9985, L502.0500 ####[facility] [address] [place], [place], [address] Total proteinOrdered By: [facility] Sarah Toth on 10-22-2024 Protein [Mass/Vol] 6.8 g/dL 5.9-8.4 [facility] Triglycerides measurementOrd ered By: [facility] Sarah Toth on 10-22-2024 Triglyceride [Mass/Vol] 178 mg/dL <199 [facility] Comment on above: The drugs N-Acetylcy steine and Metamizole may falsely depress this assay. Normal range: <150 mg/dLBorderline High: 150-199 mg/dLHigh: 200-499 mg/dLVery High: >500 mg/dL Urine albumin measurement [employer] detection limit of 20 mg/L or less (mass/volume)Ordered By: [facility] Sarah Toth on 10-22-2024 Albumin DL <= 20 mg/L (U) [Mass/Vol] 66.5 mg/L NO RANGE EST. [facility] Vitamin D,25 Hydroxyon 10-22 Vitamin D 25-OH 31.5 ng/mL Normal 30-100 [facility] Comment on above: Result Comment: Carly min D Status Deficiency: <20 ng/mL (50nmol/L) Insufficiency: 20-30 ng/mL (50-75 nmol/L) Sufficiency: 30-100 ng/mL (75-250 nmol/L) Toxicity: >100 ng/mL (>250 nmol/L) Performed By: #### L 100.0100, L500.4050, L506.1001, L501.9520, L500.4100, L501.9985, L502.0500 ####[facility] [address] [place], [address] White blood cell (WBC) count Ordered By: [facility] Sarah Toth on 10-22-2024 WBC (Bld) [#/Vol] 6.4 10*3/uL 4.4-11.0 [facility] Endocrinology Visit Reporton 07-16-2024 Endocrinology Visit Report [facility] 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 Accompanied by: Self Is patient in pain?: No Allergies red dye Allergy (Verified 07/16/24 14:33) Hives Yzalnul-ZOR-UpP Reductase Inhibitor (Vmucktz-Jcs-Aqp Reductase Inhibitor) Adverse Reaction (Severe, Verified 07/16/24 [...] you fallen in the past year?: No [facility] History (Updated 07/17/24 @ 08:52 by EVENS Vasquez) Essential hypertension Elevated troponin History of diabetes mellitus Hx of cardiomyopathy Dysarthria Medication reaction Intractable nausea and vomiting Dizziness Depression Near syncope Vertigo Carotid artery disease Pure hypercholesterolemia 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 Normal [facility] Absolute lymphocyte countOrd ered By: [facility] Sarah Toth on 07-02-2024 Lymphocytes Auto (Unsp spec) [#/Vol] 2.23 10*3/uL 0.83-4.51 [facility] Absolute neutrophil countOrd ered By: [facility] Sarah Toth on 07-02-2024 Neutrophils (Bld) [#/Vol] 4.9 10*3/uL 2.0-7.7 [facility] Albumin to globulin ratioOrd ered By: [facility] Sarah Toth on 07-02-2024 Albumin/Globulin [Mass ratio] 0.9 {ratio} Normal 0.9-2.4 [facility] Comment on above: Order Comment: CHAKA MALLORY ORDER ALL LABSNP.DONTAEANAHITS ORDERED LIPID AND LIVER Performed By: #### L 500.4050, L506.1000, L501.9520, L502.0500, L500.4100, L501.4700, L501.9985, L100.0100 ####[facility] [address] [place], [address] Automated lymphocyte count a s percentage of total leukocytesOrdered By: [facility] Sarahamerico Toth on 07-02-2024 Lymphocytes/100 WBC Auto (Unsp spec) 28.6 % 19-41 [facility] Basophil percentageOrdered B y: [facility] Toth on 07-02-2024 Basophils/100 WBC (Bld) 0.9 % 0-1 [facility] Bilirubin directOrdered By: [facility] Sarah Navneet on 07-02-2024 Bilirubin.direct [Mass/Vol] 0.16 mg/dL Normal 0.00-0.30 [facility] Comment on above: Order Comment: CHAKA MALLORY ORDER ALL LABSNP.MARQUES ORDERED LIPID AND LIVER Performed By: #### L 500.4050, L506.1000, L501.9520, L502.0500, L500.4100, L501.4700, L501.9985, L100.0100 ####[facility] [address] [place], [place], [phone] Bilirubin, totalOrdered By: [facility] Sarah Navneet on 07-02-2024 Bilirubin [Mass/Vol] 1.00 mg/dL Normal 0.20-1.00 [facility] Comment on above: For patients on eltr ombopag therapy, use of Dimension Reagan TBIL is not recommended. Order Comment: CHAKA MALLORY ORDER ALL LABSNP.KROBERTS ORDERED LIPID AND LIVER Result Comment: For patients on eltrombopag therapy, use of Dimension Reagan TBIL is not recommended. Performed By: #### L 500.4050, L506.1000, L501.9520, L502.0500, L500.4100, L501.4700, L501.9985, L100.0100 ####[facility] [address] [place], [address] Blood urea nitrogen (BUN)/cr eatinine ratioOrdered By: [facility] Sarah Toth on 07-02-2024 Urea nitrogen/Creatinine [Mass ratio] 22.8 mg/mg High 03-30 [facility] CBC W/Diff, Automatedon 06-12 Absolute Lymph 2.23 X10 3/uL Normal 0.83-4.51 [facility] Comment on above: Order Comment: CHAKA MALLORY ORDER ALL LABSNP.KROBERTS ORDERED LIPID AND LIVER Performed By: #### L 500.4050, L506.1000, L501.9520, L502.0500, L500.4100, L501.4700, L501.9985, L100.0100 ####[facility] [address] [place], [address] Absolute Neut 4.9 X10 3/uL Normal 2.0-7.7 [facility] Comment on above: Order Comment: CHAKA MALLORY ORDER ALL LABSNP.KROBERTS ORDERED LIPID AND LIVER Performed By: #### L 500.4050, L506.1000, L501.9520, L502.0500, L500.4100, L501.4700, L501.9985, L100.0100 ####[facility] [address] [place], [address] Basophils/100 WBC (Bld) 0.9 % Normal 0-1 [facility] Comment on above: Order Comment: CHAKA MALLORY ORDER ALL LABSNP.KROBERTS ORDERED LIPID AND LIVER Performed By: #### L 500.4050, L506.1000, L501.9520, L502.0500, L500.4100, L501.4700, L501.9985, L100.0100 ####[facility] [address] [place], [address] Eosinophils/100 WBC (Bld) 1.8 % Normal 0-5 [facility] Comment on above: Order Comment: CHAKA MALLORY ORDER ALL LABSNP.KROBERTS ORDERED LIPID AND LIVER Performed By: #### L 500.4050, L506.1000, L501.9520, L502.0500, L500.4100, L501.4700, L501.9985, L100.0100 ####[facility] [address] [place], [address] Erythrocyte distribution width (RBC) [Ratio] 13.3 % Normal 11.6-14.6 [facility] Comment on above: Order Comment: CHAKA MALLORY ORDER ALL LABSNP.KROBERTS ORDERED LIPID AND LIVER Performed By: #### L 500.4050, L506.1000, L501.9520, L502.0500, L500.4100, L501.4700, L501.9985, L100.0100 ####[facility] [address] [place], [address] Hematocrit (Bld) [Volume fraction] 42.2 % Normal 37-47 [facility] Comment on above: Order Comment: CHAKA MALLORY ORDER ALL LABSNP.KROBERTS ORDERED LIPID AND LIVER Performed By: #### L 500.4050, L506.1000, L501.9520, L502.0500, L500.4100, L501.4700, L501.9985, L100.0100 ####[facility] [address] [place], [address] Hemoglobin (Bld) [Mass/Vol] 13.5 g/dL Normal 12.0-15.0 [facility] Comment on above: Order Comment: CHAKA MALLORY ORDER ALL LABSNP.KROBERTS ORDERED LIPID AND LIVER Performed By: #### L 500.4050, L506.1000, L501.9520, L502.0500, L500.4100, L501.4700, L501.9985, L100.0100 ####[facility] [address] [place], [address] IG% 0.400 Normal 0.0-0.9 [facility] Comment on above: Order Comment: CHAKA MALLORY ORDER ALL LABSNP.KROBERTS ORDERED LIPID AND LIVER Result Comment: IG% - Immature Granulocytes (promyelocytes, myelocytes and metamyelocytes) > 1% indicates that a LEFT SHIFT is Present. Performed By: #### L 500.4050, L506.1000, L501.9520, L502.0500, L500.4100, L501.4700, L501.9985, L100.0100 ####[facility] [address] [place], [address] Lymphocytes/100 WBC (Bld) 28.6 % Normal 19-41 [facility] Comment on above: Order Comment: CHAKA MALLORY ORDER ALL LABSNP.KROBERTS ORDERED LIPID AND LIVER Performed By: #### L 500.4050, L506.1000, L501.9520, L502.0500, L500.4100, L501.4700, L501.9985, L100.0100 ####[facility] [address] [facility] [place], [address] MCH (RBC) [Entitic mass] 28.2 pg Normal 27.0-32.0 [facility] Comment on above: Order Comment: CHAKA MALLORY ORDER ALL LABSNP.KROBERTS ORDERED LIPID AND LIVER Performed By: #### L 500.4050, L506.1000, L501.9520, L502.0500, L500.4100, L501.4700, L501.9985, L100.0100 ####[facility] [address] [place], [address] MCHC (RBC) [Mass/Vol] 32.0 g/dL Normal 32-36 [facility] Comment on above: Order Comment: CHAKA MALLORY ORDER ALL LABSNP.KROBERTS ORDERED LIPID AND LIVER Performed By: #### L 500.4050, L506.1000, L501.9520, L502.0500, L500.4100, L501.4700, L501.9985, L100.0100 ####[facility] [address] [place], [address] MCV (RBC) [Entitic vol] 88.3 fL Normal 81-99 [facility] Comment on above: Order Comment: CHAKA MALLORY ORDER ALL LABSNP.KROBERTS ORDERED LIPID AND LIVER Performed By: #### L 500.4050, L506.1000, L501.9520, L502.0500, L500.4100, L501.4700, L501.9985, L100.0100 ####[facility] [address] [place], [address] Monocytes/100 WBC (Bld) 5.6 % Normal 0-10 [facility] Comment on above: Order Comment: CHAKA MALLORY ORDER ALL LABSNP.KROBERTS ORDERED LIPID AND LIVER Performed By: #### L 500.4050, L506.1000, L501.9520, L502.0500, L500.4100, L501.4700, L501.9985, L100.0100 ####[facility] [address] [place], [address] Neutrophils/100 WBC (Bld) 62.7 % Normal 47-70 [facility] Comment on above: Order Comment: CHAKA MALLORY ORDER ALL LABSNP.KROBERTS ORDERED LIPID AND LIVER Performed By: #### L 500.4050, L506.1000, L501.9520, L502.0500, L500.4100, L501.4700, L501.9985, L100.0100 ####[facility] [address] [place], [address] Nucleated RBC (Bld) [#/Vol] 0 10*3/uL Normal 0-5 [facility] Comment on above: Order Comment: CHAKA MALLORY ORDER ALL LABSNP.KROBERTS ORDERED LIPID AND LIVER Performed By: #### L 500.4050, L506.1000, L501.9520, L502.0500, L500.4100, L501.4700, L501.9985, L100.0100 ####[facility] [address] [place], [address] Platelet mean volume (Bld) [Entitic vol] 9.0 fL Normal 6.2-12.0 [facility] Comment on above: Order Comment: CHAKA MALLORY ORDER ALL LABSNP.KROBERTS ORDERED LIPID AND LIVER Performed By: #### L 500.4050, L506.1000, L501.9520, L502.0500, L500.4100, L501.4700, L501.9985, L100.0100 ####[facility] [address] [place], [address] Platelets (Bld) [#/Vol] 279 10*3/uL Normal 150-450 [facility] Comment on above: Order Comment: CHAKA MALLORY ORDER ALL LABSNP.KROBERTS ORDERED LIPID AND LIVER Performed By: #### L 500.4050, L506.1000, L501.9520, L502.0500, L500.4100, L501.4700, L501.9985, L100.0100 ####[facility] [address] [place], [address] RBC (Bld) [#/Vol] 4.78 10*6/uL Normal 4.2-5.4 [facility] Comment on above: Order Comment: CHAKA MALLORY ORDER ALL LABSNP.KROBERTS ORDERED LIPID AND LIVER Performed By: #### L 500.4050, L506.1000, L501.9520, L502.0500, L500.4100, L501.4700, L501.9985, L100.0100 ####[facility] [address] [place], [address] RDW SD 42.9 fl Normal 35.1-43.9 [facility] Comment on above: Order Comment: CHAKA MALLORY ORDER ALL LABSNP.KROBERTS ORDERED LIPID AND LIVER Performed By: #### L 500.4050, L506.1000, L501.9520, L502.0500, L500.4100, L501.4700, L501.9985, L100.0100 ####[facility] [address] [place], [place], [address] WBC (Bld) [#/Vol] 7.8 10*3/uL Normal 4.4-11.0 [facility] Comment on above: Order Comment: CHAKA MALLORY ORDER ALL LABSNP.KROBERTS ORDERED LIPID AND LIVER Performed By: #### L 500.4050, L506.1000, L501.9520, L502.0500, L500.4100, L501.4700, L501.9985, L100.0100 ####[facility] [address] [place], [place], [phone] Carbon dioxide measurementOr dered By: [facility] Sarah Toth on 07-02-2024 CO2 [Moles/Vol] 25.0 mmol/L Normal 21.0-32.0 [facility] Comment on above: Order Comment: CHAKA MALLORY ORDER ALL LABSNP.KROBERTS ORDERED LIPID AND LIVER Performed By: #### L 500.4050, L506.1000, L501.9520, L502.0500, L500.4100, L501.4700, L501.9985, L100.0100 ####[facility] [address] [place], [place], [id number] Cardiology Visit Reporton Cardiology Visit Report [facility] [address] [place], [place] [address] OFFICE VISIT Date of Service: 07/02/24 MR#: [id number] Acct: [id number] Name: THIAGO PIERRE Rep #: [id number] : 1955 Provider: CHAPIN Jimenez Age/Sex: 69/F Location[place] [facility] [place] Status: Signed HPI HPI History of Present Illness Details: THIAGO FLORES, is a 69 year old white female who presents to the office today for an outpatient cardiovascular hospital follow-up visit. 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 Normal [facility] Chloride measurementOrdered By: [facility] Sarah Toth on 07-02-2024 Chloride [Moles/Vol] 103 mmol/L Normal 98-107 [facility] Comment on above: Order Comment: CHAKA MALLORY ORDER ALL LABSNP.MARQUES ORDERED LIPID AND LIVER Performed By: #### L 500.4050, L506.1000, L501.9520, L502.0500, L500.4100, L501.4700, L501.9985, L100.0100 ####[facility] [address] [place], [address] Comprehensive Metabolic Prof ilon 07-02-2024 ALK P 78 U/L Normal 45-117 [facility] Comment on above: Order Comment: CHAKA MALLORY ORDER ALL LABSNP.MYRONTS ORDERED LIPID AND LIVER Performed By: #### L 500.4050, L506.1000, L501.9520, L502.0500, L500.4100, L501.4700, L501.9985, L100.0100 ####[facility] [address] [place], [address] BUN/CRE 22.8 RATIO High 10-20 [facility] Comment on above: Order Comment: CHAKA MALLORY ORDER ALL LABSNP.KROBERTS ORDERED LIPID AND LIVER Performed By: #### L 500.4050, L506.1000, L501.9520, L502.0500, L500.4100, L501.4700, L501.9985, L100.0100 ####[facility] [address] [place], [address] CA,Total 9.4 mg/dL Normal 8.5-10.1 [facility] Comment on above: Order Comment: CHAKA MALOLRY ORDER ALL LABSNP.KROBERTS ORDERED LIPID AND LIVER Performed By: #### L 500.4050, L506.1000, L501.9520, L502.0500, L500.4100, L501.4700, L501.9985, L100.0100 ####[facility] [address] [place], [address] EST GFR - AA 77 mL/min Normal >60 [facility] Comment on above: Order Comment: CHAKA MALLORY ORDER ALL LABSNP.KROBERTS ORDERED LIPID AND LIVER Result Comment: Afri can Jordanian GFR Calc Performed By: #### L 500.4050, L506.1000, L501.9520, L502.0500, L500.4100, L501.4700, L501.9985, L100.0100 ####[facility] [address] [place], [address] GAP 8 Normal 5-15 [facility] Comment on above: Order Comment: CHAKA MALLORY ORDER ALL LABSNP.KROBERTS ORDERED LIPID AND LIVER Performed By: #### L 500.4050, L506.1000, L501.9520, L502.0500, L500.4100, L501.4700, L501.9985, L100.0100 ####[facility] [address] [place], [address] T PROT 6.8 g/dL Normal 6.4-8.2 [facility] Comment on above: Order Comment: CHAKA DEWITTIN ORDER ALL LABSNP.KROBERTS ORDERED LIPID AND LIVER Performed By: #### L 500.4050, L506.1000, L501.9520, L502.0500, L500.4100, L501.4700, L501.9985, L100.0100 ####[facility] [address] [place], [address] Comprehensive Metabolic Prof ilOrdered By: [facility] Sarah Toth on 07-02-2024 AST [Catalytic activity/Vol] 10 U/L Low 15-37 [facility] Comment on above: Order Comment: CHAKA MALLORY ORDER ALL LABSNP.KROBERTS ORDERED LIPID AND LIVER Performed By: #### L 500.4050, L506.1000, L501.9520, L502.0500, L500.4100, L501.4700, L501.9985, L100.0100 ####[facility] [address] [place], [place], [id number] Eosinophil percentageOrdered By: [facility] Sarah Toth on 07-02-2024 Eosinophils/100 WBC (Bld) 1.8 % 0-5 [facility] Erythrocyte distribution wid th ratioOrdered By: [facility] Sarah Toth on 07-02-2024 Erythrocyte distribution width (RBC) [Ratio] 13.3 % 11.6-14.6 [facility] Erythrocyte distribution wid th standard deviationOrdered By: [facility] Sarah Toth on 07-02-2024 Erythrocyte distribution width (RBC) [Ratio] 42.9 fl 35.1-43.9 [facility] Glomerular filtration rate ( GFR) estimationOrdered By: [facility] Sarah Toth on 07-02-2024 GFR/1.73 sq M.predicted among non-blacks MDRD (S/P/Bld) [Vol rate/Area] 64 mL/min/{1.73_m2} Normal >60 [facility] Comment on above: Non- GFR Calc Order Comment: CHAKA MALLORY ORDER ALL LABSNP.MARQUES ORDERED LIPID AND LIVER Result Comment: Non- GFR Calc Performed By: #### L 500.4050, L506.1000, L501.9520, L502.0500, L500.4100, L501.4700, L501.9985, L100.0100 ####[facility] [id number] [place], [place], [id number] Glucose measurementOrdered B y: [facility] Sarah Toth on 07-02-2024 Glucose [Mass/Vol] 154 mg/dL High 74-106 [facility] Comment on above: Fasting Glucose resu lt greater than or equal to 126 mg/dL suggests DIABETES MELLITUS per A.D.A. criteria. Order Comment: CHAKA MALLORY ORDER ALL LABSNP.MARQUES ORDERED LIPID AND LIVER Result Comment: Fast ing Glucose result greater than or equal to 126 mg/dL suggests DIABETES MELLITUS per A.D.A. criteria. Performed By: #### L 500.4050, L506.1000, L501.9520, L502.0500, L500.4100, L501.4700, L501.9985, L100.0100 ####[facility] [address] [place], [place], [id number] Hematocrit Auto (Bld) [Volum e fraction]Ordered By: [facility] Sarah Toth on 07-02-2024 Hematocrit (Bld) [Volume fraction] 42.2 % 37-47 [facility] Hemoglobin A1con 07-02-2024 HbA1c (Bld) [Mass fraction] 7.0 % High 3.8-5.6 [facility] Comment on above: Order Comment: CHAKA MALLORY ORDER ALL LABSNP.KROBERTS ORDERED LIPID AND LIVER Result Comment: Norm al < 5.7 % Prediabetic 5.7 - 6.4 % Diabetic >or= 6.5 % Please note range changes. Performed By: #### L 500.4050, L506.1000, L501.9520, L502.0500, L500.4100, L501.4700, L501.9985, L100.0100 ####[facility] [address] [place], [place], [id number] Hemoglobin A1c percentageOrd ered By: [facility] Sarah Toth on 07-02-2024 HbA1c (Bld) [Mass fraction] 7.0 % High 3.8-5.6 [facility] Comment on above: Normal < 5.7 % Predi abetic 5.7 - 6.4 % Diabetic >or= 6.5 % Please note range changes. Hemoglobin measurementOrdere d By: [facility] Sarah Toth on 07-02-2024 Hemoglobin (Bld) [Mass/Vol] 13.5 g/dL 12.0-15.0 [facility] High density lipoprotein (HD L) measurementOrdered By: [facility] Sarah Toth on 07-02-2024 Cholesterol in HDL [Mass/Vol] 55 mg/dL Normal [facility] Comment on above: The drugs N-Acetylcy [...] L506.1000, L501.9520, L502.0500, L500.4100, L501.4700, L501.9985, L100.0100 ####[facility] [address] [place], [place], [id number] Immature granulocytes/100 WB C Auto (Bld)Ordered By: [facility] Sarah Toth on 07-02-2024 Immature granulocytes/100 WBC (Bld) 0.400 % 0.0-0.9 [facility] Comment on above: IG% - Immature Granu locytes (promyelocytes, myelocytes and metamyelocytes) > 1% indicates that a LEFT SHIFT is Present. Lipid Profileon 07-02-2024 Cholesterol in VLDL [Mass/Vol] 38 mg/dL Normal 5-40 [facility] Comment on above: Order Comment: CHAKA MALLORY ORDER ALL LABSNP.DONTAEOBERTS ORDERED LIPID AND LIVER Performed By: #### L 500.4050, L506.1000, L501.9520, L502.0500, L500.4100, L501.4700, L501.9985, L100.0100 ####[facility] [address] [place], [place], [id number] Low density lipoprotein (LDL ) cholesterol measurementOrdered By: [facility] Sarah Toth on 07-02-2024 Cholesterol in LDL [Mass/Vol] 110 mg/dL Normal 0-130 [facility] Comment on above: Order Comment: CHAKA MALLORY ORDER ALL LABSNP.DONTAEOBERTS ORDERED LIPID AND LIVER Performed By: #### L 500.4050, L506.1000, L501.9520, L502.0500, L500.4100, L501.4700, L501.9985, L100.0100 ####[facility] [address] [place], [place], [id number] MCV (mean corpuscular volume ) determinationOrdered By: [facility] Sarah Toth on 07-02-2024 MCV (RBC) [Entitic vol] 88.3 fL 81-99 [facility] Mean corpuscular hemoglobin (MCH) determinationOrdered By: [facility] Sarah Toth on 07-02-2024 MCH (RBC) [Entitic mass] 28.2 pg 27.0-32.0 [facility] Mean corpuscular hemoglobin concentration (MCHC) determinationOrdered By: [facility] Sarah Toth on 07-02-2024 MCHC (RBC) [Mass/Vol] 32.0 g/dL 32-36 [facility] Mean platelet volume determi nationOrdered By: [facility] Sarah Toth on 07-02-2024 Platelet mean volume (Bld) [Entitic vol] 9.0 fL 6.2-12.0 [facility] Microalbumin,Random Urineon 07-02-2024 MICROALBUMIN,UR 778.0 mg/L Normal NO RANGE EST. [facility] Comment on above: Order Comment: CHAKA MALLORY ORDER ALL LABSNP.MYRONTS ORDERED LIPID AND LIVER Performed By: #### L 500.4050, L506.1000, L501.9520, L502.0500, L500.4100, L501.4700, L501.9985, L100.0100 ####[facility] [address] [place], [place], [phone] Monocyte percentageOrdered B y: [facility] Sarah Toth on 07-02-2024 Monocytes/100 WBC (Bld) 5.6 % 0-10 [facility] Neutrophil percentageOrdered By: [facility] Sarah Toth on 07-02-2024 Neutrophils/100 WBC (Bld) 62.7 % 47-70 [facility] Nucleated red blood cell per centageOrdered By: [facility] Sarah Toth on 07-02-2024 Nucleated RBC/100 WBC (Bld) [Ratio] 0 % 0-5 [facility] Platelet countOrdered By: [facility] Sarah Toth on 07-02-2024 Platelets (Bld) [#/Vol] 279 10*3/uL 150-450 [facility] Potassium measurementOrdered By: [facility] Sarah Toth on 07-02-2024 Potassium [Moles/Vol] 4.2 mmol/L Normal 3.5-5.1 [facility] Comment on above: Order Comment: CHAKA MALLORY ORDER ALL LABSNP.DONTAEOBERTS ORDERED LIPID AND LIVER Performed By: #### L 500.4050, L506.1000, L501.9520, L502.0500, L500.4100, L501.4700, L501.9985, L100.0100 ####[facility] [address] [place], [place], [id number] RBC Auto (Bld) [#/Vol]Ordere d By: [facility] Sarah Toth on 07-02-2024 RBC (Bld) [#/Vol] 4.78 10*6/uL 4.2-5.4 [facility] Serum anion gap measurementO rdered By: [facility] Sarah Toth on 07-02-2024 Anion gap [Moles/Vol] 8 mmol/L 5-15 [facility] Serum globulin measurementOr dered By: [facility] Sarah Navneet on 07-02-2024 Globulin (S) [Mass/Vol] 3.6 g/dL Normal 2.2-4.2 [facility] Comment on above: Order Comment: CHAKA MALLORY ORDER ALL LABSNP.MYRONTS ORDERED LIPID AND LIVER Performed By: #### L 500.4050, L506.1000, L501.9520, L502.0500, L500.4100, L501.4700, L501.9985, L100.0100 ####[facility] [address] [facility] [place], [address] Serum or plasma alanine toribio otransferase (ALT) measurementOrdered By: [facility] Sarah Navneet on 07-02-2024 ALT [Catalytic activity/Vol] 24 U/L Normal 13-56 [facility] Comment on above: Order Comment: CHAKA MALLORY ORDER ALL LABSNP.MYRONTS ORDERED LIPID AND LIVER Performed By: #### L 500.4050, L506.1000, L501.9520, L502.0500, L500.4100, L501.4700, L501.9985, L100.0100 ####[facility] [address] [facility] [place], [address] Serum or plasma albumin gavi urement (mass/volume)Ordered By: [facility] Sarah Navneet on 07-02-2024 Albumin [Mass/Vol] 3.2 g/dL Normal 3.2-5.0 [facility] Comment on above: Order Comment: CHAKA MALLORY ORDER ALL LABSNP.MYRONTS ORDERED LIPID AND LIVER Performed By: #### L 500.4050, L506.1000, L501.9520, L502.0500, L500.4100, L501.4700, L501.9985, L100.0100 ####[facility] [address] [place], [address] Serum or plasma alkaline david sphatase measurementOrdered By: [facility] Sarah Toth on 07-02-2024 ALP [Catalytic activity/Vol] 78 U/L 45-117 [facility] Serum or plasma calcium gavi urement (mass/volume)Ordered By: [facility] on 07-02-2024 Calcium [Mass/Vol] 9.4 mg/dL 8.5-10.1 [facility] Serum or plasma cholesterol measurement (mass/volume)Ordered By: [facility] Nav[facility]et on 07-02-2024 Cholesterol [Mass/Vol] 203 mg/dL High 200 [facility] Comment on above: <200 mg/dL Desirable 200-240 mg/dL Borderline >240 mg/dL High Risk Order Comment: CHAKA MALLORY ORDER ALL LABSNP.MYRONTS ORDERED LIPID AND LIVER Result Comment: <200 mg/dL Desirable 200-240 mg/dL Borderline >240 mg/dL High Risk Performed By: #### L 500.4050, L506.1000, L501.9520, L502.0500, L500.4100, L501.4700, L501.9985, L100.0100 ####[facility] [address] [place], [address] Serum or plasma creatinine m easurement (mass/volume)Ordered By: [facility] Sarah Toth on 07-02-2024 Creatinine [Mass/Vol] 0.92 mg/dL Normal 0.55-1.02 [facility] Comment on above: The validity of [...] L506.1000, L501.9520, L502.0500, L500.4100, L501.4700, L501.9985, L100.0100 ####[facility] [address] [place], [address] Serum or plasma thyroid stim ulating hormone (TSH) measurement (units/volume)Ordered By: [facility] Sarah Navneet on 07-02-2024 TSH Qn 2.320 uIU/mL 0.358-3.740 [facility] Serum or plasma urea nitroge n measurement (mass/volume)Ordered By: [facility] on 07-02-2024 Urea nitrogen [Mass/Vol] 21 mg/dL High 7-18 [facility] Comment on above: Order Comment: CHAKA MALLORY ORDER ALL LABSNP.MARQUES ORDERED LIPID AND LIVER Performed By: #### L 500.4050, L506.1000, L501.9520, L502.0500, L500.4100, L501.4700, L501.9985, L100.0100 ####[facility] [address] [place], [address] Sodium levelOrdered By: [facility] on 07-02-2024 Sodium [Moles/Vol] 136 mmol/L Normal 136-145 [facility] Comment on above: Order Comment: CHAKA MALLORY ORDER ALL LABSNP.MYRONTS ORDERED LIPID AND LIVER Performed By: #### L 500.4050, L506.1000, L501.9520, L502.0500, L500.4100, L501.4700, L501.9985, L100.0100 ####[facility] [address] [place], [address] Thyroid Stim Hormone (TSH)on 07-02-2024 TSH 2.320 uIU/mL Normal 0.358-3.740 [facility] Comment on above: Order Comment: CHAKA MALLORY ORDER ALL LABSNP.MYRONTS ORDERED LIPID AND LIVER Performed By: #### L 500.4050, L506.1000, L501.9520, L502.0500, L500.4100, L501.4700, L501.9985, L100.0100 ####[facility] [address] [place], [place], [phone] Total proteinOrdered By: [facility] Sarah Navneet on 07-02-2024 Protein [Mass/Vol] 6.8 g/dL 6.4-8.2 [facility] Triglycerides measurementOrd ered By: [facility] Sarah Navneet on 07-02-2024 Triglyceride [Mass/Vol] 189 mg/dL Normal [facility] Comment [...] L506.1000, L501.9520, L502.0500, L500.4100, L501.4700, L501.9985, L100.0100 ####[facility] [address] [place], [place], [id number] Very low density lipoprotein (VLDL) cholesterol measurementOrdered By: [facility] Sarah Toth on 07-02-2024 Very low density lipoprotein (VLDL) cholesterol measurement 38 mg/dL 5-40 [facility] Vitamin D,25 Hydroxyon 07-02 Vitamin D 25-OH 36.4 ng/mL Normal [facility] Comment on above: Order Comment: CHAKA MALLORY ORDER ALL LABSNP.KROBERTS ORDERED LIPID AND LIVER Result Comment: Carly min D 25(OH) Status Range Deficiency <20 ng/mL (50nmol/L) Insufficiency 20 - 30 ng/mL (50 - 75 nmol/L) Sufficiency 30 - 100 ng/mL (75 - 250 nmol/L) Toxicity >100 ng/mL (>250 nmol/L) Performed By: #### L 500.4050, L506.1000, L501.9520, L502.0500, L500.4100, L501.4700, L501.9985, L100.0100 ####[facility] [address] [place], [place], [id number] White blood cell (WBC) count Ordered By: [facility] Sarah Toth on 07-02-2024 WBC (Bld) [#/Vol] 7.8 10*3/uL 4.4-11.0 [facility] Endocrinology Visit Reporton 04-16-2024 Endocrinology Visit Report [facility] [address] [place] [address] OFFICE VISIT Date of Service: 04/16/24 MR#: [id number] Acct: [id number] Name: THIAGO PIERRE Rep #: [id number] : 1955 Provider: EVENS gates Age/Sex: 68/F Location: [facility] Status: Signed Intake Vital Signs 01/17/24 10:12 [...] red dye Allergy (Verified 03/13/24 10:11) Hives Tzdhfsk-KRZ-FeZ Reductase Inhibitor (Zkccnlv-Nhr-Sss Reductase Inhibitor) Adverse Reaction (Severe, Verified 03/13/24 [...] the past year?: No PFSH Medical History Elevated troponin History of diabetes mellitus Hx of cardiomyopathy Dysarthria Medication reaction Intractable nausea and vomiting Dizziness Depression Near syncope Vertigo Carotid artery disease Pure hypercholesterolemia Essential hypertension Atherosclerotic heart disease of [place] coronary artery without angina pectoris Nonrheumatic mitral [...] date: 06/11/06 (more content not included)... Normal [facility] BSCAN OS (LEFT EYE)on 2023 [facility] Radiology Study observation (narrative) [facility] Left eye Photo documentation on 11-27-2023 [facility] Radiology Study observation (narrative) [facility] Absolute lymphocyte countOrd ered By: Justyn Lu on 09-13-2023 Lymphocytes Auto (Unsp spec) [#/Vol] 2.63 10*3/uL 0.83-4.51 [facility] Automated lymphocyte count a s percentage of total leukocytesOrdered By: Justyn Lu on 09-13-2023 Lymphocytes/100 WBC Auto (Unsp spec) 26.6 % 19-41 [facility] Basophil percentageOrdered B y: Justyn Lu on 09-13-2023 Basophils/100 WBC (Bld) 0.6 % 0-1 [facility] Chloride [Moles/Vol] 105 mmol/L 98-107 [facility] Eosinophils/100 WBC (Bld) 1.4 % 0-5 [facility] Glucose [Mass/Vol] 124 mg/dL 74-106 [facility] Comment on above: Fasting Glucose resu lt from 100 to 125 mg/dL suggests IMPAIRED HOMEOSTASIS per A.D.A. criteria. Hemoglobin (Bld) [Mass/Vol] 15.0 g/dL 12.0-15.0 [facility] Monocytes/100 WBC (Bld) 6.1 % 0-10 [facility] Neutrophils (Bld) [#/Vol] 6.4 10*3/uL 2.0-7.7 [facility] Neutrophils/100 WBC (Bld) 64.8 % 47-70 [facility] Potassium [Moles/Vol] 3.9 mmol/L 3.5-5.1 [facility] Sodium [Moles/Vol] 137 mmol/L 136-145 [facility] WBC (Bld) [#/Vol] 9.9 10*3/uL 4.4-11.0 [facility] Determination of erythrocyte mean corpuscular volume (MCV)Ordered By: Justyn Lu on 09-13-2023 MCV (RBC) [Entitic vol] 87.0 fL 81-99 [facility] Erythrocyte distribution wid th ratioOrdered By: Justyn Lu on 09-13-2023 Erythrocyte distribution width (RBC) [Ratio] 12.8 % 11.6-14.6 [facility] Erythrocyte distribution wid th standard deviationOrdered By: Justyn Lu on 09-13-2023 Erythrocyte distribution width (RBC) [Entitic vol] 40.1 fL 35.1-43.9 [facility] Hematocrit Auto (Bld) [Volum e fraction]Ordered By: Justyn Lu on 09-13-2023 Hematocrit (Bld) [Volume fraction] 46.9 % 37-47 [facility] Immature granulocytes/100 WB C Auto (Bld)Ordered By: Justyn Lu on 09-13-2023 Immature granulocytes/100 WBC (Bld) 0.500 % 0.0-0.9 [facility] Comment on above: IG% - Immature Granu locytes (promyelocytes, myelocytes and metamyelocytes) > 1% indicates that a LEFT SHIFT is Present. Laboratory - Chemistry and C hemistry - challengeOrdered By: Justyn Lu on 09-13-2023 CO2 [Moles/Vol] 26.0 mmol/L 21.0-32.0 [facility] Urea nitrogen/Creatinine [Mass ratio] 21.2 mg/mg 10-20 [facility] Laboratory - Hematology and Cell countsOrdered By: Justyn Lu on 09-13-2023 MCH (RBC) [Entitic mass] 27.8 pg 27.0-32.0 [facility] MCHC (RBC) [Mass/Vol] 32.0 g/dL 32-36 [facility] Nucleated RBC/100 WBC (Bld) [Ratio] 0 % 0-5 [facility] Platelet mean volume (Bld) [Entitic vol] 9.5 fL 6.2-12.0 [facility] Platelets (Bld) [#/Vol] 343 10*3/uL 150-450 [facility] No Panel InformationOrdered By: Justyn Lu on 09-13-2023 Estimated Creatinine Clearance Calc 60.79 ml/min [facility] Estimated GFR (MDRD) Amer 67 mL/min >60 [facility] Comment on above: GFR Calc Estimated GFR (MDRD) Non-Af Amer 56 mL/min >60 [facility] Comment on above: Non- GFR Calc Troponin I High Sensitivity 5 pg/mL 3.0-54.0 [facility] Comment on above: Please Note: New Miladis t Units and Gender Specific Reference Ranges. For more information see Policy Stat Procedure Reagan High Sensitivity Troponin (TNIH) and attachments. RBC Auto (Bld) [#/Vol]Ordere d By: Justyn Lu on 09-13-2023 RBC (Bld) [#/Vol] 5.39 10*6/uL 4.2-5.4 [facility] Serum or plasma calcium gavi urement (mass/volume)Ordered By: Justyn Lu on 09-13-2023 Calcium [Mass/Vol] 9.2 mg/dL 8.5-10.1 [facility] Serum or plasma creatinine m easurement (mass/volume)Ordered By: Justyn Lu on 09-13-2023 Creatinine [Mass/Vol] 1.04 mg/dL 0.55-1.02 [facility] Comment on above: The validity of the calculated GFR & GFRAA in patients over 70 years has not been determined. Clinical correlation is essential. Serum or plasma urea nitroge n measurement (mass/volume)Ordered By: Justyn Lu on 09-13-2023 Urea nitrogen [Mass/Vol] 22 mg/dL 7-18 [facility] Thin prep Papanicolaou smear with manual screeningOrdered By: Justyn Lu on 09-13-2023 Thin prep Papanicolaou smear with manual screening 6 5-15 [facility] Basophil percentageOrdered B y: Sarah Navneet on 07-18-2023 Bilirubin [Mass/Vol] 0.90 mg/dL 0.20-1.00 [facility] Comment on above: For patients on eltr ombopag therapy, use of Dimension Reagan TBIL is not recommended. Chloride [Moles/Vol] 105 mmol/L 98-107 [facility] Cholesterol [Mass/Vol] 183 mg/dL <200 [facility] Comment on above: <200 mg/dL Desirable 200-240 mg/dL Borderline >240 mg/dL High Risk Glucose [Mass/Vol] 162 mg/dL 74-106 [facility] Comment on above: Fasting Glucose resu lt greater than or equal to 126 mg/dL suggests DIABETES MELLITUS per A.D.A. criteria. Hemoglobin (Bld) [Mass/Vol] 13.7 g/dL 12.0-15.0 [facility] Potassium [Moles/Vol] 4.2 mmol/L 3.5-5.1 [facility] Protein [Mass/Vol] 6.8 g/dL 6.4-8.2 [facility] Sodium [Moles/Vol] 133 mmol/L 136-145 [facility] Triglyceride [Mass/Vol] 170 mg/dL <199 [facility] Comment on above: The drugs N-Acetylcy steine and Metamizole may falsely depress this assay.Serum Triglycerides Reference Interval Normal <150 mg/dL Borderline high 150 - 199 mg/dL High 200 - 499 mg/dL Very High > or = 500 mg/dL WBC (Bld) [#/Vol] 7.4 10*3/uL 4.4-11.0 [facility] Determination of erythrocyte mean corpuscular volume (MCV)Ordered By: Sarah Toth on 07-18-2023 MCV (RBC) [Entitic vol] 89.2 fL 81-99 [facility] Erythrocyte distribution wid th ratioOrdered By: Sarah Toth on 07-18-2023 Erythrocyte distribution width (RBC) [Ratio] 13.0 % 11.6-14.6 [facility] Erythrocyte distribution wid th standard deviationOrdered By: Sarah Toth on 07-18-2023 Erythrocyte distribution width (RBC) [Entitic vol] 42.6 fL 35.1-43.9 [facility] Hematocrit Auto (Bld) [Volum e fraction]Ordered By: Sarah Toth on 07-18-2023 Hematocrit (Bld) [Volume fraction] 43.7 % 37-47 [facility] Laboratory - Chemistry and C hemistry - challengeOrdered By: Sarah Toth on 07-18-2023 Albumin/Globulin [Mass ratio] 0.9 {ratio} 0.9-2.4 [facility] ALP [Catalytic activity/Vol] 91 U/L 45-117 [facility] ALT [Catalytic activity/Vol] 19 U/L 13-56 [facility] Cholesterol in HDL [Mass/Vol] 49 mg/dL >40 [facility] Comment on above: The drugs N-Acetylcy steine and Metamizole may falsely depress this assay. Reference Range HDL <40 mg/dL Low HDL Cholesterol HDL >or= 60 mg/dL High HDL Cholesterol Cholesterol in LDL [Mass/Vol] 100 mg/dL 0-130 [facility] CO2 [Moles/Vol] 26.0 mmol/L 21.0-32.0 [facility] Globulin (S) [Mass/Vol] 3.6 g/dL 2.2-4.2 [facility] Urea nitrogen/Creatinine [Mass ratio] 25.2 mg/mg 10-20 [facility] Laboratory - Hematology and Cell countsOrdered By: Sarah Toth on 07-18-2023 MCH (RBC) [Entitic mass] 28.0 pg 27.0-32.0 [facility] MCHC (RBC) [Mass/Vol] 31.4 g/dL 32-36 [facility] Platelet mean volume (Bld) [Entitic vol] 9.0 fL 6.2-12.0 [facility] Platelets (Bld) [#/Vol] 294 10*3/uL 150-450 [facility] No Panel InformationOrdered By: Sarah Toth on 07-18-2023 Estimated GFR (MDRD) Amer 65 mL/min >60 [facility] Comment on above: GFR Calc Estimated GFR (MDRD) Non-Af Amer 54 mL/min >60 [facility] Comment on above: Non- GFR Calc VLDL Cholesterol 34 mg/dL 5-40 [facility] RBC Auto (Bld) [#/Vol]Ordere d By: Sarah Toth on 07-18-2023 RBC (Bld) [#/Vol] 4.90 10*6/uL 4.2-5.4 [facility] Serum or plasma calcium gavi urement (mass/volume)Ordered By: Sarah Toth on 07-18-2023 Calcium [Mass/Vol] 8.7 mg/dL 8.5-10.1 [facility] Serum or plasma creatinine m easurement (mass/volume)Ordered By: Sarah Toth on 07-18-2023 Creatinine [Mass/Vol] 1.07 mg/dL 0.55-1.02 [facility] Comment on above: The validity of the calculated GFR & GFRAA in patients over 70 years has not been determined. Clinical correlation is essential. Serum or plasma urea nitroge n measurement (mass/volume)Ordered By: Sarah Toth on 07-18-2023 Urea nitrogen [Mass/Vol] 27 mg/dL 7-18 [facility] Thin prep Papanicolaou smear with manual screeningOrdered By: Sarah Toth on 07-18-2023 Thin prep Papanicolaou smear with manual screening 3.2 g/dL 3.2-5.0 [facility] Thin prep Papanicolaou smear with manual screening 9 U/L 15-37 [facility] Thin prep Papanicolaou smear with manual screening 2 5-15 [facility] Thin prep Papanicolaou smear with manual screening 58.7 mg/L NO RANGE EST. [facility] Whole blood hemoglobin A1c/t otal hemoglobin ratio (mass fraction)Ordered By: Sarah Toth on 07-18-2023 HbA1c (Bld) [Mass fraction] 6.8 % 3.8-5.6 [facility] Comment on above: Normal < 5.7 [...] lesion Cholelithiasis Suboptimal visualization of the pancreas Check Cashier: TEMITOPE Transcribe Date/Time: Mar 05 2023 10:37A Dictated by : KEILA VALVERDE MD This examination was interpreted and the report reviewed and electronically signed by: KEILA VALVERDE MD on Mar 05 2023 10:39AM EST [id number] Normal [facility] Absolute lymphocyte countOrd ered By: Lico Noel on 02-01-2023 Lymphocytes Auto (Unsp spec) [#/Vol] 2.12 10*3/uL 0.83-4.51 [facility] Basophil percentageOrdered B y: Lico Noel on 02-01-2023 Basophils/100 WBC (Bld) 0.6 % 0-1 [facility] Chloride [Moles/Vol] 106 mmol/L 98-107 [facility] Eosinophils/100 WBC (Bld) 3.1 % 0-5 [facility] Glucose [Mass/Vol] 228 mg/dL 74-106 [facility] Comment on above: Glucose result great er than or equal to 200 mg/dLsuggests DIABETES MELLITUS per A.D.A. criteria. Neutrophils (Bld) [#/Vol] 3.9 10*3/uL 2.0-7.7 [facility] Neutrophils/100 WBC (Bld) 58.2 % 47-70 [facility] Potassium [Moles/Vol] 4.3 mmol/L 3.5-5.1 [facility] Sodium [Moles/Vol] 137 mmol/L 136-145 [facility] WBC (Bld) [#/Vol] 6.7 10*3/uL 4.4-11.0 [facility] Blood erythrocytes count (nu mber/volume)Ordered By: Lico Noel on 02-01-2023 RBC (Bld) [#/Vol] 4.77 10*6/uL 4.2-5.4 [facility] Blood hemoglobin measurement (mass/volume)Ordered By: Lico Noel on 02-01-2023 Hemoglobin (Bld) [Mass/Vol] 13.4 g/dL 12.0-15.0 [facility] Blood lymphocytes/100 leukoc ytesOrdered By: Lico Noel on 02-01-2023 Lymphocytes/100 WBC (Bld) 31.5 % 19-41 [facility] Blood monocytes/100 leukocyt esOrdered By: Lico Noel on 02-01-2023 Monocytes/100 WBC (Bld) 6.3 % 0-10 [facility] Blood platelet mean volumeOr dered By: Lico Noel on 02-01-2023 Platelet mean volume (Bld) [Entitic vol] 9.4 fL 6.2-12.0 [facility] Determination of erythrocyte mean corpuscular volume (MCV)Ordered By: Lico Noel on 02-01-2023 MCV (RBC) [Entitic vol] 89.5 fL 81-99 [facility] Hematocrit Auto (Bld) [Volum e fraction]Ordered By: Lico Noel on 02-01-2023 Hematocrit (Bld) [Volume fraction] 42.7 % 37-47 [facility] Laboratory - Chemistry and C hemistry - challengeOrdered By: Lico Noel on 02-01-2023 CO2 [Moles/Vol] 26.0 mmol/L 21.0-32.0 [facility] Urea nitrogen/Creatinine [Mass ratio] 23.0 mg/mg 10-20 [facility] Laboratory - Hematology and Cell countsOrdered By: Lico Noel on 02-01-2023 Erythrocyte distribution width (RBC) [Entitic vol] 44.9 fL 35.1-43.9 [facility] Erythrocyte distribution width (RBC) [Ratio] 13.5 % 11.6-14.6 [facility] Immature granulocytes/100 WBC (Bld) 0.300 % 0.0-0.9 [facility] Comment on above: IG% - Immature Granu locytes (promyelocytes, myelocytes and metamyelocytes) > 1% indicates that a LEFT SHIFT is Present. MCH (RBC) [Entitic mass] 28.1 pg 27.0-32.0 [facility] Nucleated RBC/100 WBC (Bld) [Ratio] 0 % 0-5 [facility] MCHC Auto (RBC) [Mass/Vol]Or dered By: Lico Noel on 02-01-2023 MCHC (RBC) [Mass/Vol] 31.4 g/dL 32-36 [facility] No Panel InformationOrdered By: Lico Noel on 02-01-2023 Estimated GFR (MDRD) Amer 61 mL/min >60 [facility] Comment on above: GFR Calc Estimated GFR (MDRD) Non-Af Amer 51 mL/min >60 [facility] Comment on above: Non- GFR Calc Thyroid Stimulating Hormone (TSH) 1.73 uIU/mL 0.358-3.74 [facility] Platelets bldOrdered By: Tucker Noel on 02-01-2023 Platelets (Bld) [#/Vol] 325 10*3/uL 150-450 [facility] Serum or plasma calcium gavi urement (mass/volume)Ordered By: Lico Noel on 02-01-2023 Calcium [Mass/Vol] 8.3 mg/dL 8.5-10.1 [facility] Serum or plasma creatinine m easurement (mass/volume)Ordered By: Lico Noel on 02-01-2023 Creatinine [Mass/Vol] 1.13 mg/dL 0.55-1.02 [facility] Comment on above: The validity of the calculated GFR & GFRAA in patients over 70 years has not been determined. Clinical correlation is essential. Serum or plasma urea nitroge n measurement (mass/volume)Ordered By: Lico Noel on 02-01-2023 Urea nitrogen [Mass/Vol] 26 mg/dL 7-18 [facility] Thin prep Papanicolaou smear with manual screeningOrdered By: Lico Noel on 02-01-2023 Thin prep Papanicolaou smear with manual screening 5 5-15 [facility] Basophil percentageOrdered B y: GENIE ENCARNACION on 12-27-2022 Bilirubin [Mass/Vol] 0.60 mg/dL 0.20-1.00 [facility] Comment on above: For patients on eltr ombopag therapy, use of Dimension [place] TBIL is not recommended. Chloride [Moles/Vol] 106 mmol/L 98-107 [facility] Cholesterol [Mass/Vol] 183 mg/dL <200 [facility] Comment on above: <200 mg/dL Desirable 200-240 mg/dL Borderline >240 mg/dL High Risk Glucose [Mass/Vol] 222 mg/dL 74-106 [facility] Comment on above: Glucose result great er than or equal to 200 mg/dLsuggests DIABETES MELLITUS per A.D.A. criteria. Potassium [Moles/Vol] 4.0 mmol/L 3.5-5.1 [facility] Protein [Mass/Vol] 6.6 g/dL 6.4-8.2 [facility] Sodium [Moles/Vol] 139 mmol/L 136-145 [facility] Triglyceride [Mass/Vol] 127 mg/dL <199 [facility] Comment on above: The drugs N-Acetylcy steine and Metamizole may falsely depress this assay.Serum Triglycerides Reference Interval Normal <150 mg/dL Borderline high 150 - 199 mg/dL High 200 - 499 mg/dL Very High > or = 500 mg/dL WBC (Bld) [#/Vol] 7.6 10*3/uL 4.4-11.0 [facility] Blood erythrocytes count (nu mber/volume)Ordered By: [facility] on 12-27-2022 RBC (Bld) [#/Vol] 5.05 10*6/uL 4.2-5.4 [facility] Blood hemoglobin measurement (mass/volume)Ordered By: [facility] on 12-27-2022 Hemoglobin (Bld) [Mass/Vol] 14.1 g/dL 12.0-15.0 [facility] Blood platelet mean volumeOr dered By: [facility] on 12-27-2022 Platelet mean volume (Bld) [Entitic vol] 9.4 fL 6.2-12.0 [facility] Determination of erythrocyte mean corpuscular volume (MCV)Ordered By: [facility] on 12-27-2022 MCV (RBC) [Entitic vol] 88.7 fL 81-99 [facility] Hematocrit Auto (Bld) [Volum e fraction]Ordered By: [facility] on 12-27-2022 Hematocrit (Bld) [Volume fraction] 44.8 % 37-47 [facility] Laboratory - Chemistry and C hemistry - challengeOrdered By: [facility] on 12-27-2022 ALP [Catalytic activity/Vol] 73 U/L 45-117 [facility] ALT [Catalytic activity/Vol] 12 U/L 13-56 [facility] CO2 [Moles/Vol] 24.0 mmol/L 21.0-32.0 [facility] Cobalamin (Vitamin B12) [Mass/Vol] 295 pg/mL 211-911 [facility] Globulin (S) [Mass/Vol] 3.6 g/dL 2.2-4.2 [facility] Urea nitrogen/Creatinine [Mass ratio] 18.6 mg/mg 10-20 [facility] Laboratory - Hematology and Cell countsOrdered By: GENIE ENCARNACION on 12-27-2022 Erythrocyte distribution width (RBC) [Entitic vol] 43.3 fL 35.1-43.9 [facility] Erythrocyte distribution width (RBC) [Ratio] 13.3 % 11.6-14.6 [facility] MCH (RBC) [Entitic mass] 27.9 pg 27.0-32.0 [facility] MCHC Auto (RBC) [Mass/Vol]Or dered By: GENIE ENCARNACION on 12-27-2022 MCHC (RBC) [Mass/Vol] 31.5 g/dL 32-36 [facility] No Panel InformationOrdered By: GENIE ENCARNACION on 12-27-2022 Estimated GFR (MDRD) Amer 69 mL/min >60 [facility] Comment on above: GFR Calc Estimated GFR (MDRD) Non-Af Amer 57 mL/min >60 [facility] Comment on above: Non- GFR Calc Thyroid Stimulating Hormone (TSH) 1.27 uIU/mL 0.358-3.74 [facility] Platelets bldOrdered By: FAB TAYLOR on 12-27-2022 Platelets (Bld) [#/Vol] 306 10*3/uL 150-450 [facility] Serum or plasma albumin gavi urement (mass/volume)Ordered By: GENIE ENCARNACION on 12-27-2022 Albumin [Mass/Vol] 3.0 g/dL 3.2-5.0 [facility] Serum or plasma albumin/glob ulin mass ratioOrdered By: GENIE BELTRAMI on 12-27-2022 Albumin/Globulin [Mass ratio] 0.8 {ratio} 0.9-2.4 [facility] Serum or plasma calcitriol m easurement (mass/volume)Ordered By: GENIE ENCARNACION on 12-27-2022 1,25-dihydroxyvitamin D3 [Mass/Vol] 29.9 pg/mL 24.8-81.5 [facility] Comment on above: [facility] [place], [place] [id number] Director: Chadwick Kim MD, Phone: [phone] Serum or plasma calcium gavi urement (mass/volume)Ordered By: [facility] on 12-27-2022 Calcium [Mass/Vol] 8.5 mg/dL 8.5-10.1 [facility] Serum or plasma cholesterol in HDL measurement (mass/volume)Ordered By: [facility] on 12-27-2022 Cholesterol in HDL [Mass/Vol] 51 mg/dL >40 [facility] Comment on above: The drugs N-Acetylcy steine and Metamizole may falsely depress this assay. Reference Range HDL <40 mg/dL Low HDL Cholesterol HDL >or= 60 mg/dL High HDL Cholesterol Serum or plasma cholesterol in VLDL measurement (mass/volume)Ordered By: [facility] on 12-27-2022 Cholesterol in VLDL [Mass/Vol] 25 mg/dL 5-40 [facility] Serum or plasma creatinine m easurement (mass/volume)Ordered By: [facility] on 12-27-2022 Creatinine [Mass/Vol] 1.02 mg/dL 0.55-1.02 [facility] Comment on above: The validity of the calculated GFR & GFRAA in patients over 70 years has not been determined. Clinical correlation is essential. Serum or plasma low density lipoprotein (LDL) cholesterol measurement (mass/volume)Ordered By: [facility] on 12-27-2022 Cholesterol in LDL [Mass/Vol] 107 mg/dL 0-130 [facility] Serum or plasma urea nitroge n measurement (mass/volume)Ordered By: [facility] on 12-27-2022 Urea nitrogen [Mass/Vol] 19 mg/dL 7-18 [facility] Thin prep Papanicolaou smear with manual screeningOrdered By: [facility] on 12-27-2022 Thin prep Papanicolaou smear with manual screening 9 U/L 15-37 [facility] Thin prep Papanicolaou smear with manual screening 9 5-15 [facility] Thin prep Papanicolaou smear with manual screening 121.0 mg/L NO RANGE EST. [facility] Basophil percentageOrdered B y: [facility] on 10-02-2022 Chloride [Moles/Vol] 103 mmol/L 98-107 [facility] Glucose [Mass/Vol] 173 mg/dL 74-106 [facility] Comment on above: Fasting Glucose resu lt greater than or equal to 126 mg/dL suggests DIABETES MELLITUS per A.D.A. criteria. Potassium [Moles/Vol] 4.1 mmol/L 3.5-5.1 [facility] Sodium [Moles/Vol] 133 mmol/L 136-145 [facility] Laboratory - Chemistry and C hemistry - challengeOrdered By: [facility] on 10-02-2022 CO2 [Moles/Vol] 26.0 mmol/L 21.0-32.0 [facility] Urea nitrogen/Creatinine [Mass ratio] 19.1 mg/mg 10-20 [facility] No Panel InformationOrdered By: [facility] on 10-02-2022 Estimated GFR (MDRD) Amer 71 mL/min >60 [facility] Comment on above: GFR Calc Estimated GFR (MDRD) Non-Af Amer 59 mL/min >60 [facility] Comment on above: Non- GFR Calc Serum or plasma calcium gavi urement (mass/volume)Ordered By: [facility] on 10-02-2022 Calcium [Mass/Vol] 8.9 mg/dL 8.5-10.1 [facility] Serum or plasma creatinine m easurement (mass/volume)Ordered By: [facility] on 10-02-2022 Creatinine [Mass/Vol] 1.00 mg/dL 0.55-1.02 [facility] Comment on above: The validity of the calculated GFR & GFRAA in patients over 70 years has not been determined. Clinical correlation is essential. Serum or plasma urea nitroge n measurement (mass/volume)Ordered By: [facility] on 10-02-2022 Urea nitrogen [Mass/Vol] 19 mg/dL 7-18 [facility] Thin prep Papanicolaou smear with manual screeningOrdered By: [facility] on 10-02-2022 Thin prep Papanicolaou smear with manual screening 4 5-15 [facility] Basophil percentageOrdered B y: [facility] on 07-31-2022 Bilirubin [Mass/Vol] 1.10 mg/dL 0.20-1.00 [facility] Comment on above: For patients on eltr ombopag therapy, use of Dimension [place] TBIL is not recommended. Chloride [Moles/Vol] 103 mmol/L 98-107 [facility] Glucose [Mass/Vol] 270 mg/dL 74-106 [facility] Comment on above: Glucose result great er than or equal to 200 mg/dLsuggests DIABETES MELLITUS per A.D.A. criteria. Potassium [Moles/Vol] 4.1 mmol/L 3.5-5.1 [facility] Protein [Mass/Vol] 7.3 g/dL 6.4-8.2 [facility] Sodium [Moles/Vol] 138 mmol/L 136-145 [facility] WBC (Bld) [#/Vol] 7.6 10*3/uL 4.4-11.0 [facility] Blood erythrocytes count (nu mber/volume)Ordered By: [facility] on 07-31-2022 RBC (Bld) [#/Vol] 5.07 10*6/uL 4.2-5.4 [facility] Blood hemoglobin measurement (mass/volume)Ordered By: [facility] on 07-31-2022 Hemoglobin (Bld) [Mass/Vol] 14.9 g/dL 12.0-15.0 [facility] Blood platelet mean volumeOr dered By: [facility] on 07-31-2022 Platelet mean volume (Bld) [Entitic vol] 9.4 fL 6.2-12.0 [facility] Determination of erythrocyte mean corpuscular volume (MCV)Ordered By: [facility] on 07-31-2022 MCV (RBC) [Entitic vol] 90.1 fL 81-99 [facility] Hematocrit Auto (Bld) [Volum e fraction]Ordered By: [facility] on 07-31-2022 Hematocrit (Bld) [Volume fraction] 45.7 % 37-47 [facility] Laboratory - Chemistry and C hemistry - challengeOrdered By: [facility] on 07-31-2022 ALP [Catalytic activity/Vol] 86 U/L 45-117 [facility] ALT [Catalytic activity/Vol] 12 U/L 13-56 [facility] CO2 [Moles/Vol] 24.0 mmol/L 21.0-32.0 [facility] Globulin (S) [Mass/Vol] 3.8 g/dL 2.2-4.2 [facility] Urea nitrogen/Creatinine [Mass ratio] 21.9 mg/mg 10- [facility] Laboratory - Hematology and Cell countsOrdered By: GENIE ENCARNACION on 07-31-2022 Erythrocyte distribution width (RBC) [Entitic vol] 41.1 fL 35.1-43.9 [facility] Erythrocyte distribution width (RBC) [Ratio] 12.6 % 11.6-14.6 [facility] MCH (RBC) [Entitic mass] 29.4 pg 27.0-32.0 [facility] MCHC Auto (RBC) [Mass/Vol]Or dered By: GENIE ENCARNACION on 07-31-2022 MCHC (RBC) [Mass/Vol] 32.6 g/dL 32-36 [facility] No Panel InformationOrdered By: GENIE ENCARNACION on 07-31-2022 Estimated GFR (MDRD) Amer 67 mL/min >60 [facility] Comment on above: GFR Calc Estimated GFR (MDRD) Non-Af Amer 55 mL/min >60 [facility] Comment on above: Non- GFR Calc Platelets bldOrdered By: FAB TAYLOR on 07-31-2022 Platelets (Bld) [#/Vol] 349 10*3/uL 150-450 [facility] Serum or plasma albumin gavi urement (mass/volume)Ordered By: GENIE ENCARNACION on 07-31-2022 Albumin [Mass/Vol] 3.5 g/dL 3.2-5.0 [facility] Serum or plasma albumin/glob ulin mass ratioOrdered By: GENIE ENCARNACION on 07-31-2022 Albumin/Globulin [Mass ratio] 0.9 {ratio} 0.9-2.4 [facility] Serum or plasma calcium gavi urement (mass/volume)Ordered By: GENIE ENCARNACION on 07-31-2022 Calcium [Mass/Vol] 9.1 mg/dL 8.5-10.1 [facility] Serum or plasma creatinine m easurement (mass/volume)Ordered By: GENIE ENCARNACION on 07-31-2022 Creatinine [Mass/Vol] 1.05 mg/dL 0.55-1.02 [facility] Comment on above: The validity of the calculated GFR & GFRAA in patients over 70 years has not been determined. Clinical correlation is essential. Serum or plasma urea nitroge n measurement (mass/volume)Ordered By: [facility] on 07-31-2022 Urea nitrogen [Mass/Vol] 23 mg/dL 7-18 [facility] Thin prep Papanicolaou smear with manual screeningOrdered By: [facility] on 07-31-2022 Thin prep Papanicolaou smear with manual screening 5 U/L 15-37 [facility] Thin prep Papanicolaou smear with manual screening 11 5-15 [facility] Thin prep Papanicolaou smear with manual screening 181.0 mg/L NO RANGE EST. [facility] Absolute lymphocyte countOrd ered By: Dr. Herr on 06-01-2022 Lymphocytes Auto (Unsp spec) [#/Vol] 1.95 10*3/uL 0.83-4.51 [facility] Basophil percentageOrdered B y: Dr. Herr on 06-01-2022 Basophils/100 WBC (Bld) 0.7 % 0-1 [facility] Bilirubin [Mass/Vol] 0.90 mg/dL 0.20-1.00 [facility] Comment on above: For patients on eltr ombopag therapy, use of Dimension [place] TBIL is not recommended. Chloride [Moles/Vol] 104 mmol/L 98-107 [facility] Eosinophils/100 WBC (Bld) 1.6 % 0-5 [facility] Glucose [Mass/Vol] 318 mg/dL 74-106 [facility] Comment on above: Glucose result great er than or equal to 200 mg/dLsuggests DIABETES MELLITUS per A.D.A. criteria. Neutrophils (Bld) [#/Vol] 4.5 10*3/uL 2.0-7.7 [facility] Neutrophils/100 WBC (Bld) 61.0 % 47-70 [facility] Potassium [Moles/Vol] 4.3 mmol/L 3.5-5.1 [facility] Protein [Mass/Vol] 7.0 g/dL 6.4-8.2 [facility] Sodium [Moles/Vol] 134 mmol/L 136-145 [facility] WBC (Bld) [#/Vol] 7.4 10*3/uL 4.4-11.0 [facility] Blood erythrocytes count (nu mber/volume)Ordered By: Dr. Herr on 06-01-2022 RBC (Bld) [#/Vol] 5.01 10*6/uL 4.2-5.4 [facility] Blood hemoglobin measurement (mass/volume)Ordered By: Dr. Herr on 06-01-2022 Hemoglobin (Bld) [Mass/Vol] 14.8 g/dL 12.0-15.0 [facility] Blood lymphocytes/100 leukoc ytesOrdered By: Dr. Herr on 06-01-2022 Lymphocytes/100 WBC (Bld) 26.4 % 19-41 [facility] Blood monocytes/100 leukocyt esOrdered By: Dr. Herr on 06-01-2022 Monocytes/100 WBC (Bld) 9.6 % 0-10 [facility] Blood platelet mean volumeOr dered By: Dr. Herr on 06-01-2022 Platelet mean volume (Bld) [Entitic vol] 9.3 fL 6.2-12.0 [facility] Determination of erythrocyte mean corpuscular volume (MCV)Ordered By: Dr. Herr on 06-01-2022 MCV (RBC) [Entitic vol] 88.6 fL 81-99 [facility] Hematocrit Auto (Bld) [Volum e fraction]Ordered By: Dr. Herr on 06-01-2022 Hematocrit (Bld) [Volume fraction] 44.4 % 37-47 [facility] Influenza virus A and B and SARS-CoV-2 (COVID-19) Ag panel - Upper respiratory specimOrdered By: Dr. Herr on 06-01-2022 SARS-CoV-2 & FLU Antigen (Rapid) Influenzae A [facility] Laboratory - Chemistry and C hemistry - challengeOrdered By: Dr. Herr on 06-01-2022 ALP [Catalytic activity/Vol] 124 U/L 45-117 [facility] ALT [Catalytic activity/Vol] 24 U/L 13-56 [facility] CO2 [Moles/Vol] 24.0 mmol/L 21.0-32.0 [facility] Globulin (S) [Mass/Vol] 3.6 g/dL 2.2-4.2 [facility] Urea nitrogen/Creatinine [Mass ratio] 13.4 mg/mg 10-20 [facility] Laboratory - Hematology and Cell countsOrdered By: Dr. Herr on 06-01-2022 Erythrocyte distribution width (RBC) [Entitic vol] 41.5 fL 35.1-43.9 [facility] Erythrocyte distribution width (RBC) [Ratio] 12.8 % 11.6-14.6 [facility] Immature granulocytes/100 WBC (Bld) 0.700 % 0.0-0.9 [facility] Comment on above: IG% - Immature Granu locytes (promyelocytes, myelocytes and metamyelocytes) > 1% indicates that a LEFT SHIFT is Present. MCH (RBC) [Entitic mass] 29.5 pg 27.0-32.0 [facility] Nucleated RBC/100 WBC (Bld) [Ratio] 0 % 0-5 [facility] MCHC Auto (RBC) [Mass/Vol]Or dered By: Dr. Herr on 06-01-2022 MCHC (RBC) [Mass/Vol] 33.3 g/dL 32-36 [facility] No Panel InformationOrdered By: Dr. Herr on 06-01-2022 Estimated Creatinine Clearance Calc 49.95 ml/min [facility] Estimated GFR (MDRD) Amer 73 mL/min >60 [facility] Comment on above: GFR Calc Estimated GFR (MDRD) Non-Af Amer 60 mL/min >60 [facility] Comment on above: Non- GFR Calc Platelets bldOrdered By: Dr. Herr on 06-01-2022 Platelets (Bld) [#/Vol] 254 10*3/uL 150-450 [facility] Serum or plasma albumin gavi urement (mass/volume)Ordered By: Dr. Herr on 06-01-2022 Albumin [Mass/Vol] 3.4 g/dL 3.2-5.0 [facility] Serum or plasma albumin/glob ulin mass ratioOrdered By: Dr. Herr on 06-01-2022 Albumin/Globulin [Mass ratio] 0.9 {ratio} 0.9-2.4 [facility] Serum or plasma calcium gavi urement (mass/volume)Ordered By: Dr. Herr on 06-01-2022 Calcium [Mass/Vol] 9.0 mg/dL 8.5-10.1 [facility] Serum or plasma creatinine m easurement (mass/volume)Ordered By: Dr. Herr on 06-01-2022 Creatinine [Mass/Vol] 0.97 mg/dL 0.55-1.02 [facility] Comment on above: The validity of the calculated GFR & GFRAA in patients over 70 years has not been determined. Clinical correlation is essential. Serum or plasma urea nitroge n measurement (mass/volume)Ordered By: Dr. Herr on 06-01-2022 Urea nitrogen [Mass/Vol] 13 mg/dL 7-18 [facility] Thin prep Papanicolaou smear with manual screeningOrdered By: Dr. Herr on 06-01-2022 Thin prep Papanicolaou smear with manual screening 12 U/L 15-37 [facility] Thin prep Papanicolaou smear with manual screening 6 5-15 [facility] OBSOLETEon 02-18-2020 OBSOLETE Procedure (AKEPD) THIAGO FLORES ([id number]) 1955 F Date Time Provider Department 02/18/20 8:00 AM REM DEVICE CK AKEPD During your visit today, we recorded the following information about you: Referring Provider: NAHOMY GARCIA [[id number]] Allergies As of Date: 02/18/2020 Noted Allergy Reaction RED DYE 11/10/2015 16 - Unknown [id number] REDUCTASE INHIBIT*04/02/2018 17 - Myalgia Comments: Severe [...] failure (HCC) [I50.22] 12/27/2015 Coronary atherosclerosis of [place] coronary art*12/27/2015 Palpitations [R00.2] Obstructive sleep apnea [...] Encounter Status:Closed by GUERO MORTENSEN on 02/18/20 [facility] OBSOLETEon 11-11-2019 OBSOLETE Procedure (AKEPD) THIAGO FLORES ([id number]) 1955 F Date Time Provider Department 11/11/19 8:00 AM REM DEVICE CK AKEPD During your visit today, we recorded the following information about you: Referring Provider: NAHOMY GARCIA [[id number]] Allergies As of Date: 11/11/2019 Noted Allergy Reaction RED DYE 11/10/2015 16 - Unknown [id number] REDUCTASE INHIBIT*04/02/2018 17 - Myalgia Comments: Severe [...] failure (HCC) [I50.22] 12/27/2015 Coronary atherosclerosis [place] coronary art*12/27/2015 Palpitations [R00.2] Obstructive sleep apnea [...] Encounter Status:Closed by GUERO MORTENSEN on 11/11/19 [facility] OBSOLETEon 08-05-2019 OBSOLETE Procedure (AKEPD) THIAGO FLORES ([id number]) 1955 F Date Time Provider Department 08/05/19 8:00 AM REM DEVICE CK AKEPD During your visit today, we recorded the following information about you: Referring Provider: NAHOMY GARCIA [[id number]] Allergies As of Date: 08/05/2019 Noted Allergy Reaction RED DYE 11/10/2015 16 - Unknown [id number] REDUCTASE INHIBIT*04/02/2018 17 - Myalgia Comments: Severe [...] failure (HCC) [I50.22] 12/27/2015 Coronary atherosclerosis [place] coronary art*12/27/2015 Palpitations [R00.2] Obstructive sleep apnea [...] Encounter Status:Closed by BRANDON GARCIA on 08/06/19 [facility] OBSOLETEon 05-23-2019 OBSOLETE Procedure (AKEPD) THIAGO FLORES ([id number]) 1955 F Date Time Provider Department 05/23/19 8:00 AM DEVICE CLIN[facility] 1 [facility] During your visit today, we recorded the following information about you: Referring Provider: NAHOMY GARCIA [[id number]] Allergies As of Date: 05/23/2019 Noted Allergy Reaction RED DYE 11/10/2015 16 - Unknown [id number] REDUCTASE INHIBIT*04/02/2018 17 - Myalgia Comments: Severe cramping Date Reviewed: 04/02/2018 Reviewed by: Winter (Abner) Frederick - Fully Assessed Reason for Visit: ICD [3662] Visit Diagnosis:NICM (nonischemic cardiomyopathy) ([facility]) [I42.8] Prescriptions as of 05/23/2019 Sig: FLUOXETINE [...] failure (HCC) [I50.22] 12/27/2015 Coronary atherosclerosis of [place] coronary art*12/27/2015 Palpitations [R00.2] Obstructive sleep apnea [...] Encounter Status:Closed by LICO BARAHONA on 05/23/19 [facility] Office Visit: [facility] 03-12-20 17 Fall risk assessment No Invalid Interpretation Code [employer] Work Phone: [phone] Protein mass conc Done Invalid Interpretation Code [employer] Work Phone: [phone] Office Visit: [facility] 12-02-19 17 Documentation of current medications (procedure) Done Invalid Interpretation Code [employer] Work Phone: [phone] Fall risk assessment No Invalid Interpretation Code [facility] Work Phone: [phone] Protein mass conc Done [facility] Work Phone: [phone] Lab Report: BNP,B-Type NATRI URETIC PEPTIDEon 08-31-2016 BNP 22.2 pg/mL Invalid Interpretation Code 0-100 [facility] Work Phone: [phone] Lab Report: Basic Metabolic Profile (BMP)on 08-31-2016 Anion gap 11 mmol/L Invalid Interpretation Code 5-15 [employer] Work Phone: [phone] Anion gap 4 molar conc 11 Invalid Interpretation Code 5-15 [facility] Work Phone: [phone] Anion gap molar conc 11 mmol/L 5-[address] [facility] Work Phone: [phone] BUN/Creatinine Ratio 29.9 RATIO High 10- [facility] Work Phone: [phone] Calcium 9.2 mg/dL Invalid Interpretation Code 8.5-10.1 [facility] Work Phone: [phone] Chloride 101 mmol/L Invalid Interpretation Code 98-107 [facility] Work Phone: [phone] CO2 21.0 mmol/L Invalid Interpretation Code 21.0-32.0 [facility] Work Phone: [phone] CO2 ppres (BldV) 21.0 mmol/L Invalid Interpretation Code 21.0-32.0 [facility] Work Phone: [phone] Creatinine 1.17 mg/dL High 0.55-1.02 [employer] Work Phone: [phone] eGFR (non-black) 50 mL/min/{1.73_m2} Low >60 [facility] Work Phone: [phone] eGFR (non-black) 60 mL/min/{1.73_m2} Invalid Interpretation Code >60 [facility] Work Phone: [phone] EST GFR - AA 60 mL/min Invalid Interpretation Code >60 [facility] Work Phone: [phone] Glucose 292 mg/dL High 70-110 [facility] Work Phone: [phone] Glucose mass conc 292 mg/dL High 70-110 [facility] Work Phone: [phone] Potassium 4.8 mmol/L Invalid Interpretation Code 3.5-5.1 [facility] Work Phone: [phone] Sodium 133 mmol/L Low 136-145 [facility] Work Phone: [phone] Urea nitrogen 35 mg/dL High 7-18 [facility] Work Phone: [phone] Office Visiton 08-23-2016 Dietary management education, guidance, and counseling (procedure) yes Invalid Interpretation Code [facility] Work Phone: [phone] Clinical Lists Update: Pre08-18-2016 Left ventricular Ejection fraction 20 % Invalid Interpretation Code [facility] Work Phone: [phone] Clinical Lists Update: 03-31-2016 Alanine aminotransferase (ALT) 13 U/L Invalid Interpretation Code [facility] Work Phone: [phone] Aspartate aminotransferase (AST) 13 U/L Invalid Interpretation Code [facility] Work Phone: [phone] Cholesterol 232 mg/dL High [facility] Work Phone: [phone] Cholesterol to HDL Ratio 5.27 {ratio} High [facility] Work Phone: [phone] HbA1c 7.2 % High [facility] Work Phone: [phone] HDL Cholesterol 44 mg/dL Low [facility] Work Phone: [phone] LDL Cholesterol 137 mg/dL High [facility] Work Phone: [phone] LDL/HDL ratio, serum 3.11 Invalid Interpretation Code [facility] Work Phone: [phone] Triglyceride 256 mg/dL High [facility] Work Phone: [phone] very low density lipoproteins 51 mg/dL High [facility] Work Phone: [phone] Append: Dr. Han Mckeon [facility] [place] [facility] 03-01-2016 Clinical consultation report (record artifact) [id number] Invalid Interpretation Code [facility] Work Phone: [phone] Clinical Lists Update: Prelo locks inspector 01-13-2016 basophils as percent of blood leukocytes, manual count 0.6 % Invalid Interpretation Code [facility] Work Phone: [phone] BNP 34.5 pg/mL Invalid Interpretation Code [facility] Work Phone: [phone] eGFR (non-black) 48 mL/min/{1.73_m2} Low [facility] Work Phone: [phone] eGFR (non-black) 58 mL/min/{1.73_m2} Low [facility] Work Phone: [phone] eosinophils as percent of blood leukocytes, manual count 7.7 % High [facility] Work Phone: [phone] Erythrocyte distribution width Ratio (RBC) 13.3 % [facility] Work Phone: [phone] Erythrocytes (RBC) 3.33 10*6/uL Low [facility] Work Phone: [phone] Glomerular Filtration Rate 58 mL/min/1.73m2 Low [facility] Work Phone: [phone] Hematocrit (HCT) 30.0 % Low [facility] Work Phone: [phone] Hematocrit Volume Fraction (Bld) 30.0 % Low [facility] Work Phone: [phone] Hemoglobin (HGB) 10.0 g/dL Low [facility] Work Phone: [phone] Lymphocytes/100 leukocytes 36.2 % Invalid Interpretation Code [facility] Work Phone: [phone] Lymphocytes/100 WBC (Bld) 36.2 % [facility] Work Phone: [phone] Magnesium 1.9 mg/dL Invalid Interpretation Code [facility] Work Phone: [phone] MCH 30.0 pg Invalid Interpretation Code [facility] Work Phone: [phone] MCH Entitic mass (RBC) 30.0 pg [facility] Work Phone: [phone] MCHC 33.3 g/dL Invalid Interpretation Code [facility] Work Phone: [phone] MCHC mass conc (RBC) 33.3 g/dL [facility] Work Phone: [phone] MCV 90.1 fL Invalid Interpretation Code [facility] Work Phone: [phone] MCV Entitic [...] [phone] Platelets 301 10*3/mm3 Invalid Interpretation Code [facility] Work Phone: [phone] Platelets #/vol (Bld) 301 10*3/mm3 [facility] Work Phone: [phone] PMV by Raji 9.1 fL Invalid Interpretation Code [facility] Work Phone: [phone] RBC #/vol (Bld) 3.33 10*6/uL Low [facility] Work Phone: [phone] RDW-CA 13.3 % Invalid Interpretation Code [facility] Work Phone: [phone] Thyroid stimulating hormone (TSH) 1.76 u[iU]/mL Invalid Interpretation Code [facility] Work Phone: [phone] WBC #/vol (Bld) 6.7 10*3/uL [facility] Work Phone: [phone] WBC (Leukocytes) 6.7 10*3/uL Invalid Interpretation Code [employer] Work Phone: [phone] Clinical Lists Update: Prelo locks inspector 01-11-2016 Albumin 4.1 g/dL Invalid Interpretation Code [facility] Work Phone: [phone] Alkaline phosphatase (ALP) 58 U/L Invalid Interpretation Code [facility] Work Phone: [phone] ALP enzyme act/vol (Bld) 58 U/L Invalid Interpretation Code [employer] Work Phone: [phone] Bilirubin (total) 0.6 mg/dL Invalid Interpretation Code [facility] Work Phone: [phone] Protein 6.9 g/dL Invalid Interpretation Code [employer] Work Phone: [phone] Replaced Document: Jenn Lorenzo 10-22-2015 BUN (urea nitrogen) Sinus Rhythm -Left bundle branch block. ABNORMAL Invalid Interpretation Code [facility] Phone: [phone] EKG QRS axis -29 deg Invalid Interpretation Code [facility] Work Phone: [phone] GE use only - for [employer] import when terms are not otherwise specified 496 ms Invalid Interpretation Code [facility] Phone: [phone] P [place] 34 deg Invalid Interpretation Code [facility] Work Phone: [phone] P wave axis, electrocardiogram 34 deg Invalid Interpretation Code [facility] Work Phone: [phone] NE Interval 168 ms Invalid Interpretation Code [facility] Work Phone: [phone] NE interval, electrocardiogram 168 ms Invalid Interpretation Code [facility] Work Phone: [phone] Pulse (Heart Rate) 68 /min Invalid Interpretation Code [facility] Work Phone: [phone] QRS axis, electrocardiogram -29 deg Invalid Interpretation Code [facility] Work Phone: [phone] QRS Duration 174 ms Invalid Interpretation Code [facility] Work Phone: [phone] QRS duration, electrocardiogram 174 ms Invalid Interpretation Code [facility] Work Phone: [phone] QT Interval new path ms Invalid Interpretation Code [facility] Work Phone: [phone] QT interval, electrocardiogram new path ms Invalid Interpretation Code [facility] Work Phone: [phone] QTc Wilson 496 ms Invalid Interpretation Code [facility] Work Phone: [phone] T [place] 36 deg Invalid Interpretation Code [facility] Work Phone: [phone] T wave axis, electrocardiogram 36 deg Invalid Interpretation Code [facility] Work Phone: [phone] Urea nitrogen mass conc Sinus Rhythm -Le ft bundle branch block. ABNORMAL [facility] Work Phone: [phone] Office Visit: [facility] 07-22-19 16 Tobacco smoking status NHIS Former smoker Invalid Interpretation Code [facility] Work Phone: [phone] Tobacco use CPHS Former smoker Invalid Interpretation Code [facility] Work Phone: [phone] External Other: Preferred Me thod of [employer] 06-10-2015 methcontact phone Invalid Interpretation Code [facility] Phone: [phone] Patient's prefered method of contact phone Invalid Interpretation Code [facility] Phone: [phone] Office Visit: [facility] 06-10-20 15 cardiac risk group C Invalid Interpretation Code [facility] Work Phone: [phone] General cardiovascular disease 10Y risk [#] Benedict.D'Agostdenis N/A Invalid Interpretation Code [employer] Work Phone: [phone] Vital Signs Date Time Vital Sign Value Performing Clinician Faci lity 01-27-2025 14:58-0400 Body mass index (BMI) [Ratio] 44.9 kg/m2 Sarah Toth NP-C Work Phone: [facility] 01-27-2025 14:40-0400 Diastolic blood pressure 61 mm[Hg] Sarah Toth CREDENTIALING ANALYST-C Work Phone: 5(412)877-283084 [place] [address] 01-27-2025 14:40-0400 Heart rate 66 /min Sarahamerico Toth CREDENTIALING ANALYST-C Work Phone: 2(572)678-291270 [place] [address] 01-27-2025 14:40-0400 Systolic blood pressure 136 mm[Hg] Sarahamerico Toth CREDENTIALING ANALYST-C Work Phone: 1(087)790-444870 [place] [address] 01-27-2025 13:33-0400 Body height 162.56 cm Sarahamerico Toth CREDENTIALING ANALYST-C Work Phone: 6(461)842-493870 [place] [address] 01-27-2025 13:33-0400 Body weight 118.7 kg Sarahamerico Toth CREDENTIALING ANALYST-C Work Phone: 0(105)322-925070 [place] [address] 01-27-2025 12:40-0400 Body temperature 98 [degF] Sarahamerico Toth CREDENTIALING ANALYST-C Work Phone: 5(421)628-859970 [place] [address] 01-27-2025 12:40-0400 Respiratory rate 17 /min Sarahamerico Toth CREDENTIALING ANALYST-C Work Phone: 1(547)859-673570 [place] [address] 01-27-2025 12:40-0400 SaO2% (BldA) [Mass fraction] 98 % Sarahamerico Toth CREDENTIALING ANALYST-C Work Phone: 6(220)285-335870 [place] [address] 01-26-2025 15:46-0400 Body temperature 97.6 [degF] Sarahamerico Toth CREDENTIALING ANALYST-C Work Phone: 7(919)454-116470 [place] [address] 01-26-2025 15:46-0400 Diastolic blood pressure 93 mm[Hg] Sarahamerico Toth CREDENTIALING ANALYST-C Work Phone: 2(314)761-384770 [place] [address] 01-26-2025 15:46-0400 Heart rate 76 /min Sarah Toth CREDENTIALING ANALYST-C Work Phone: 4(776)372-854270 [place] [address] 01-26-2025 15:46-0400 Respiratory rate 18 /min Sarah Toth CREDENTIALING ANALYST-C Work Phone: 7(189)895-498470 [place] [address] 01-26-2025 15:46-0400 SaO2% (BldA) [Mass fraction] 99 % Sarah Toth CREDENTIALING ANALYST-C Work Phone: 7(593)383-332884 [place] [address] 01-26-2025 15:46-0400 Systolic blood pressure 107 mm[Hg] Sarah Toth CREDENTIALING ANALYST-C Work Phone: 6(164)924-487770 [place] [address] 01-26-2025 11:33-0400 Body height 162.56 cm Sarah Toth CREDENTIALING ANALYST-C Work Phone: 2(272)809-028970 [place] [address] 01-26-2025 11:33-0400 Body mass index (BMI) [Ratio] 44.6 kg/m2 Sarah Toth CREDENTIALING ANALYST-C Work Phone: 7(724)336-244170 [place] [address] 01-26-2025 11:33-0400 Body weight 117.93 kg Sarah Toth CREDENTIALING ANALYST-C Work Phone: 5(016)564-295570 [place] [address] 12-28-2024 16:13-0400 Body temperature 96 [degF] Sarah Toth CREDENTIALING ANALYST-C Work Phone: 3(987)750-121770 [place] [address] 12-28-2024 16:13-0400 Diastolic blood pressure 65 mm[Hg] Sarah Toth CREDENTIALING ANALYST-C Work Phone: 4(932)918-106170 [place] [address] 12-28-2024 16:13-0400 Heart rate 60 /min Sarah Toth CREDENTIALING ANALYST-C Work Phone: 2(694)628-989270 [place] [address] 12-28-2024 16:13-0400 Respiratory rate 20 /min Sarah Toth CREDENTIALING ANALYST-C Work Phone: 0(101)434-844170 [place] [address] 12-28-2024 16:13-0400 SaO2% (BldA) [Mass fraction] 96 % Sarah Toth CREDENTIALING ANALYST-C Work Phone: 4(822)870-268970 [place] [address] 12-28-2024 16:13-0400 Systolic blood pressure 135 mm[Hg] Sarah Toth CREDENTIALING ANALYST-C Work Phone: 6(544)523-054070 [place] [address] 12-28-2024 15:39-0400 Body height 162.56 cm Sarah Toth CREDENTIALING ANALYST-C Work Phone: 0(284)319-022070 [place] [address] 12-28-2024 15:39-0400 Body mass index (BMI) [Ratio] 44.9 kg/m2 Sarah Toth CREDENTIALING ANALYST-C Work Phone: 4(733)975-303570 [place] [address] 12-28-2024 15:39-0400 Body weight 118.56 kg Sarah Toth CREDENTIALING ANALYST-C Work Phone: 1(822)826-569870 [place] [address] 12-25-2024 14:36-0400 Body height 162.56 cm Sarah Toth CREDENTIALING ANALYST-C Work Phone: 8(478)568-748470 [place] [address] 12-25-2024 14:36-0400 Body mass index (BMI) [Ratio] 45.1 kg/m2 Sarah Toth CREDENTIALING ANALYST-C Work Phone: 3(222)834-676870 [place] [address] 12-25-2024 14:36-0400 Body weight 119.29 kg Sarah Toth CREDENTIALING ANALYST-C Work Phone: 2(917)052-392670 [place] [address] 12-25-2024 14:36-0400 Diastolic blood pressure 72 mm[Hg] Sarah Toth CREDENTIALING ANALYST-C Work Phone: 9(216)023-349570 [place] [address] 12-25-2024 14:36-0400 Heart rate 60 /min Sarah Toth CREDENTIALING ANALYST-C Work Phone: 1(378)887-196870 [place] [address] 12-25-2024 14:36-0400 Respiratory rate 16 /min Sarah Toth CREDENTIALING ANALYST-C Work Phone: 1(201)970-916670 [place] [address] 12-25-2024 14:36-0400 Systolic blood pressure 124 mm[Hg] Sarah Toth CREDENTIALING ANALYST-C Work Phone: 7(922)372-036870 [place] [address] 11-30-2024 15:26-0400 Body temperature 98.2 [degF] Sarah Toth CREDENTIALING ANALYST-C Work Phone: 4(901)786-161870 [place] [address] 11-30-2024 15:26-0400 Diastolic blood pressure 57 mm[Hg] Sarah Toth CREDENTIALING ANALYST-C Work Phone: 4(948)522-886370 [place] [address] 11-30-2024 15:26-0400 Heart rate 60 /min Sarah Toth CREDENTIALING ANALYST-C Work Phone: 6(877)555-563770 [place] [address] 11-30-2024 15:26-0400 Respiratory rate 18 /min Sarah Toth CREDENTIALING ANALYST-C Work Phone: 2(043)622-315570 [place] [address] 11-30-2024 15:26-0400 SaO2% (BldA) [Mass fraction] 96 % Sarah Toth CREDENTIALING ANALYST-C Work Phone: 1(749)286-914470 [place] [address] 11-30-2024 15:26-0400 Systolic blood pressure 110 mm[Hg] Sarahmariluz Toth CREDENTIALING ANALYST-C Work Phone: 9(545)585-877370 [place] [address] 11-30-2024 11:39-0400 Body height 162.56 cm Sarah Toth CREDENTIALING ANALYST-C Work Phone: 4(994)210-649070 [place] [address] 11-30-2024 11:39-0400 Body mass index (BMI) [Ratio] 44.8 kg/m2 Sarahamerico Toth CREDENTIALING ANALYST-C Work Phone: 2(154)808-355770 [place] [address] 11-30-2024 11:39-0400 Body weight 118.38 kg Sarahamerico Toth CREDENTIALING ANALYST-C Work Phone: 7(757)210-031570 [place] [address] 10-23-2024 13:55-0400 Body height 162.56 cm Sraahmariluz Toth CREDENTIALING ANALYST-C Work Phone: 6(149)737-151070 [place] [address] 10-23-2024 13:55-0400 Body mass index (BMI) [Ratio] 44.9 kg/m2 Sarahamerico Toth CREDENTIALING ANALYST-C Work Phone: 6(435)539-066870 [place] [address] 10-23-2024 13:55-0400 Body weight 118.61 kg Sarahamerico Toth CREDENTIALING ANALYST-C Work Phone: 6(011)873-343970 [place] [address] 10-23-2024 13:55-0400 Diastolic blood pressure 74 mm[Hg] Sarah Toth CREDENTIALING ANALYST-C Work Phone: 7(419)892-891370 [place] [address] 10-23-2024 13:55-0400 Heart rate 60 /min Sarahamerico Toth CREDENTIALING ANALYST-C Work Phone: 2(745)641-723870 [place] [address] 10-23-2024 13:55-0400 SaO2% (BldA) [Mass fraction] 95 % Sarah Toth CREDENTIALING ANALYST-C Work Phone: 7(211)855-105570 [place] [address] 10-23-2024 13:55-0400 Systolic blood pressure 117 mm[Hg] Sarah Toth CREDENTIALING ANALYST-C Work Phone: 4(448)326-487570 [place] [address] 07-16-2024 14:30-0500 Body mass index (BMI) [Ratio] 44.1 kg/m2 aSrah Toth CREDENTIALING ANALYST-C Work Phone: 9(158)385-630070 [place] [address] 07-16-2024 14:30-0500 Body weight 116.57 kg Sarahamerico Toth CREDENTIALING ANALYST-C Work Phone: 9(510)244-519570 [place] [address] 07-16-2024 14:30-0500 Diastolic blood pressure 77 mm[Hg] Sarah Toth CREDENTIALING ANALYST-C Work Phone: 1(102)998-618370 [place] [address] 07-16-2024 14:30-0500 Heart rate 61 /min Sarah Toth CREDENTIALING ANALYST-C Work Phone: 7(336)973-921970 [place] [address] 07-16-2024 14:30-0500 SaO2% (BldA) [Mass fraction] 94 % Sarah Toth CREDENTIALING ANALYST-C Work Phone: 7(541)487-507770 [place] [address] 07-16-2024 14:30-0500 Systolic blood pressure 149 mm[Hg] Sarah Toth CREDENTIALING ANALYST-C Work Phone: 8(951)127-220170 [place] [address] 07-02-2024 13:02-0500 Body temperature 97.6 [degF] Sarahamerico Toth CREDENTIALING ANALYST-C Work Phone: 9(570)724-902270 [place] [address] 07-02-2024 13:02-0500 Diastolic blood pressure 69 mm[Hg] Sarah Toth CREDENTIALING ANALYST-C Work Phone: 5(873)274-751470 [place] [address] 07-02-2024 13:02-0500 Heart rate 60 /min Sarah Toth CREDENTIALING ANALYST-C Work Phone: 9(149)352-949770 [place] [address] 07-02-2024 13:02-0500 Respiratory rate 18 /min Sarah Toth CREDENTIALING ANALYST-C Work Phone: 8(263)627-662270 [place] [address] 07-02-2024 13:02-0500 SaO2% (BldA) [Mass fraction] 98 % Sarah Toth CREDENTIALING ANALYST-C Work Phone: 2(264)757-388170 [place] [address] 07-02-2024 13:02-0500 Systolic blood pressure 154 mm[Hg] Sarah Toth CREDENTIALING ANALYST-C Work Phone: 0(128)196-697670 [place] [address] 09-13-2023 18:06-0400 Body temperature 97 [degF] [facility] Work Phone: 9(295)757-637870 [place] [address] 09-13-2023 18:06-0400 Diastolic blood pressure 79 mm[Hg] [facility] Work Phone: 7(491)841-008570 [place] [address] 09-13-2023 18:06-0400 Heart rate 60 /min [facility] Work Phone: 5(196)952-439070 [place] [address] 09-13-2023 18:06-0400 Respiratory rate 14 /min [facility] Work Phone: 1(872)678-592670 [place] [address] 09-13-2023 18:06-0400 SaO2% (BldA) [Mass fraction] 97 % [facility] Work Phone: 1(094)594-743670 [place] [address] 09-13-2023 18:06-0400 Systolic blood pressure 141 mm[Hg] [facility] Work Phone: 4(474)931-904470 [place] [address] 09-13-2023 14:47-0400 Body height 165.1 cm [facility] Work Phone: 7(099)853-227570 [place] [address] 09-13-2023 14:47-0400 Body mass index (BMI) [Ratio] 38.7 kg/m2 [facility] Work Phone: 6(562)904-859970 [place] [address] 09-13-2023 14:47-0400 Body weight 105.74 kg [facility] Work Phone: 4(672)776-168170 [place] [address] 07-04-2023 09:05-0500 Body height 165.1 cm [facility] Work Phone: 6(359)166-135370 [place] [address] 07-04-2023 09:05-0500 Body mass index (BMI) [Ratio] 37.5 kg/m2 [facility] Work Phone: 4(154)060-139770 [place] [address] 07-04-2023 09:05-0500 Body temperature 98.7 [degF] [facility] Work Phone: 4(187)178-579570 [place] [address] 07-04-2023 09:05-0500 Body weight 102.28 kg [facility] Work Phone: 5(057)471-603670 [place] [address] 07-04-2023 09:05-0500 Diastolic blood pressure 76 mm[Hg] [facility] Work Phone: 7(670)262-300670 [place] [address] 07-04-2023 09:05-0500 Heart rate 70 /min [facility] Work Phone: 9(385)508-538270 [place] [address] 07-04-2023 09:05-0500 Respiratory rate 16 /min [facility] Work Phone: 3(241)483-181870 [place] [address] 07-04-2023 09:05-0500 SaO2% (BldA) [Mass fraction] 96 % [facility] Work Phone: 7(412)962-772070 [place] [address] 07-04-2023 09:05-0500 Systolic blood pressure 138 mm[Hg] [facility] Work Phone: 8(866)782-626570 [place] [address] 07-02-2023 09:50-0500 Body mass index (BMI) [Ratio] 37 kg/m2 [facility] Work Phone: 7(895)817-043270 [place] [address] 07-02-2023 09:50-0500 Body weight 101.15 kg [facility] Work Phone: 8(813)013-981870 [place] [address] 07-02-2023 09:50-0500 Diastolic blood pressure 76 mm[Hg] [facility] Work Phone: 8(772)907-751770 [place] [address] 07-02-2023 09:50-0500 Heart rate 68 /min [facility] Work Phone: 0(301)321-825970 [place] [address] 07-02-2023 09:50-0500 Respiratory rate 18 /min [facility] Work Phone: 4(803)654-004670 [place] [address] 07-02-2023 09:50-0500 SaO2% (BldA) [Mass fraction] 98 % [facility] Work Phone: 8(528)809-111270 [place] [address] 07-02-2023 09:50-0500 Systolic blood pressure 121 mm[Hg] [facility] Work Phone: 9(691)290-622970 [place] [address] 04-02-2023 08:48-0400 Body mass index (BMI) [Ratio] 38 kg/m2 [facility] Work Phone: 6(992)918-029970 [place] [address] 04-02-2023 08:48-0400 Body temperature 97.6 [degF] [facility] Work Phone: 3(617)850-248970 [place] [address] 04-02-2023 08:48-0400 Body weight 103.53 kg [facility] Work Phone: 8(661)671-355770 [place] [address] 04-02-2023 08:48-0400 Diastolic blood pressure 76 mm[Hg] [facility] Work Phone: 0(689)244-632770 [place] [address] 04-02-2023 08:48-0400 Heart rate 72 /min [facility] Work Phone: 7(329)477-068670 [place] [address] 04-02-2023 08:48-0400 Respiratory rate 16 /min [facility] Work Phone: 3(332)423-731270 [place] [address] 04-02-2023 08:48-0400 SaO2% (BldA) [Mass fraction] 97 % [facility] Work Phone: 2(140)812-738870 [place] [address] 04-02-2023 08:48-0400 Systolic blood pressure 146 mm[Hg] [facility] Work Phone: 3(753)406-030370 [place] [address] 02-01-2023 09:28-0400 Body height 165.1 cm [facility] Work Phone: 0(288)452-006270 [place] [address] 12-28-2022 09:43-0400 Body mass index (BMI) [Ratio] 37.5 kg/m2 [facility] Work Phone: 9(367)576-082970 [place] [address] 12-28-2022 09:43-0400 Body weight 102.51 kg [facility] Work Phone: 4(030)275-108970 [place] [address] 12-28-2022 09:43-0400 Diastolic blood pressure 40 mm[Hg] [facility] Work Phone: 3(954)192-070070 [place] [address] 12-28-2022 09:43-0400 Heart rate 64 /min [facility] Work Phone: 8(091)327-820570 [place] [address] 12-28-2022 09:43-0400 Respiratory rate 20 /min [facility] Work Phone: 6(766)883-291170 [place] [address] 12-28-2022 09:43-0400 Systolic blood pressure 100 mm[Hg] [facility] Work Phone: 2(596)861-890070 [place] [address] 12-28-2022 09:08-0400 Body mass index (BMI) [Ratio] 38 kg/m2 [facility] Work Phone: 9(940)436-570070 [place] [address] 12-28-2022 09:08-0400 Body temperature 98 [degF] [facility] Work Phone: 1(960)446-993470 [place] [address] 12-28-2022 09:08-0400 Body weight 103.58 kg [facility] Work Phone: 3(424)300-991270 [place] [address] 12-28-2022 09:08-0400 Diastolic blood pressure 82 mm[Hg] [facility] Work Phone: 5(120)445-736070 [place] [address] 12-28-2022 09:08-0400 Heart rate 60 /min [facility] Work Phone: 0(893)780-444070 [place] [address] 12-28-2022 09:08-0400 Respiratory rate 16 /min [facility] Work Phone: 5(990)786-487870 [place] [address] 12-28-2022 09:08-0400 SaO2% (BldA) [Mass fraction] 97 % [facility] Work Phone: 1(692)945-916070 [place] [address] 12-28-2022 09:08-0400 Systolic blood pressure 148 mm[Hg] [facility] Work Phone: 0([phone] [place] [address] 11-22-2022 15:32-0400 Respiratory rate 18 /min [facility] Work Phone: 9(655)249-623670 [place] [address] 11-22-2022 13:34-0400 Body temperature 98.5 [degF] [facility] Work Phone: 3([phone])036-723070 [place] [address] 11-22-2022 13:34-0400 Diastolic blood pressure 87 mm[Hg] [facility] Work Phone: 0([phone])150-726470 [place] [address] 11-22-2022 13:34-0400 Heart rate 88 /min [facility] Work Phone: [phone])140-163970 [place] [address] 11-22-2022 13:34-0400 SaO2% (BldA) [Mass fraction] 97 % [facility] Work Phone: 5([phone])533-883770 [place] [address] 11-22-2022 13:34-0400 Systolic blood pressure 103 mm[Hg] [facility] Work Phone: 4([phone])017-402570 [place] [address] 10-19-2022 09:12-0400 Body mass index (BMI) [Ratio] 37 kg/m2 [facility] Work Phone: 5(101)426-929170 [place] [address] 10-19-2022 09:12-0400 Body temperature 98.6 [degF] [facility] Work Phone: 7([phone])313-971270 [place] [address] 10-19-2022 09:12-0400 Body weight 101.15 kg [facility] Work Phone: 0([phone] [place] [address] 10-19-2022 09:12-0400 Diastolic blood pressure 73 mm[Hg] [facility] Work Phone: 8(247)699-441870 [place] [address] 10-19-2022 09:12-0400 Heart rate 74 /min [facility] Work Phone: 9([phone])610-816170 [place] [address] 10-19-2022 09:12-0400 Respiratory rate 18 /min [facility] Work Phone: 7(030)382-245270 [place] [address] 10-19-2022 09:12-0400 SaO2% (BldA) [Mass fraction] 95 % [facility] Work Phone: 6(238)[phone] [place] [address] 10-19-2022 09:12-0400 Systolic blood pressure 137 mm[Hg] [facility] Work Phone: 7(113)889-278870 [place] [address] 06-01-2022 08:51-0500 Body height 165.1 cm [facility] 06-01-2022 08:51-0500 Body mass index (BMI) [Ratio] 38.2 kg/m2 [facility] 06-01-2022 08:51-0500 Body temperature 97.6 [degF] [facility] 06-01-2022 08:51-0500 Body weight 104.32 kg [facility] 06-01-2022 08:51-0500 Diastolic blood pressure 94 mm[Hg] [facility] 06-01-2022 08:51-0500 Heart rate 71 /min [facility] 06-01-2022 08:51-0500 Respiratory rate 18 /min [facility] 06-01-2022 08:51-0500 SaO2% (BldA) [Mass fraction] 96 % [facility] 06-01-2022 08:51-0500 Systolic blood pressure 170 mm[Hg] [facility] 03-12-2017 10:31-0400 BMI (Body Mass Index) 42.93 kg/m2 [facility]ali[facility] Work Phone: 03-12-2017 10:31-0400 BP [...] 12-01-2016 10:38-0400 Weight 116.03 kg Aaliyah Rivera [facility] Work Phone: 08-23-2016 14:06-0400 Pulse Oximetry 98 % [facility] Work Phone: 02-29-2016 09:05-0400 BSA (Body Surface Area) 2.11 m2 Aaliyah Rivera [facility] Work Phone: 10-22-2015 10:30-0400 Heart rate 68 /min [facility] Work Phone: Encounters Encounter Date Encounter Type Care Provider Facility Start: 04-22-2025 ambulatory [facility] Fa cility:[facility] Start: 04-09-2025 End: 04-09-2025 ambulatory [facility] Start: 02-16-2025 End: 02-16-2025 ambulatory Sarah Toth CREDENTIALING ANALYST-C Work Phone: -[facility] Start: 02-16-2025 End: 02-16-[address] Misbah Marcum MD -[facility] Work Phone: Start: 01-27-2025 Non-patient / Non-visit Dr. Marilee Irving MD -[facility] Work Phone: Start: 01-27-2025 End: 01-27-2025 ambulatory Sarah Toth CREDENTIALING ANALYST-C Work Phone: -[facility] Start: 01-27-2025 End: 01-27-2025 Patient encounter procedure Rachel Field -[facility] Work Phone: Start: 01-26-2025 End: 01-27-2025 ambulatory [facility] Facility:[facility] Start: 01-26-2025 End: 01-27-2025 Evaluation and management of inpatient Dr. Dahiana Oakley MD -[facility] Work Phone: Start: 01-26-2025 End: 01-27-2025 observation encounter Sarah Toth CREDENTIALING ANALYST-C Work Phone: -[facility] Start: 01-20-2025 Non-patient / Non-visit Lico horta CREDENTIALING ANALYST-C -[facility] Work Phone: Start: 01-20-2025 ambulatory [facility] Fa [facility]ility:[facility] Start: 01-19-2025 Non-patient / Non-visit Dr. Justin HASSAN -[facility] Start: 01-19-2025 End: 01-19-2025 ambulatory Sarah Toth CREDENTIALING ANALYST-C Work Phone: -Cardiovascular Services Start: 01-19-2025 End: 01-19-[address] Misbah Marcum MD -[facility] Work Phone: Start: 01-19-2025 End: 01-19-2025 ambulatory [facility] Facility:[facility] Start: 01-12-2025 End: 01-12-2025 ambulatory Sarah Toth CREDENTIALING ANALYST-C Work Phone: -[facility] Start: 01-12-2025 End: 01-12-[address] Misbah Marcum MD -[facility] Work Phone: Start: 12-28-2024 End: 12-28-2024 Emergency department patient visit Sarah Navneet CREDENTIALING ANALYST-C Work Phone: -Emergency Department Work Phone: Start: 12-25-2024 End: 12-25-[address] Misbah Marcum MD -[facility] Work Phone: Start: 12-25-2024 End: 12-25-2024 ambulatory Sarah Toth CREDENTIALING ANALYST-C Work Phone: -[facility] Start: 11-30-2024 End: 11-30-2024 Emergency department patient visit Sarah Toth CREDENTIALING ANALYST-C Work Phone: -Emergency Department Work Phone: Start: 10-23-2024 End: 10-23-2024 Patient encounter procedure Lavonne Bridges CREDENTIALING ANALYST-C -[facility] Work Phone: Start: 10-23-2024 End: 10-23-2024 ambulatory Sarah Toth CREDENTIALING ANALYST-C Work Phone: [facility] Work Phone: Start: 10-22-2024 End: 10-22-2024 ambulatory Sarah Toth CREDENTIALING ANALYST-C Work Phone: [facility] Work Phone: Start: 10-22-2024 End: 10-22-2024 Patient encounter procedure VS Sarah Toth CREDENTIALING ANALYST-C -[facility] Start: 10-22-2024 End: 10-22-20[facility] Start: 10-13-2024 End: 10-13-2024 ambulatory [facility] Facility:[facility] Start: 10-13-2024 End: 10-13-[address] Misbah Marcum MD -[facility] Work Phone: Start: 08-19-2024 ambulatory [facility] Start: 07-16-2024 End: 07-16-2024 Patient encounter procedure Lavonne DESOUZAC -[facility] Work Phone: Start: 07-16-2024 End: 07-16-20[facility] Start: 07-14-2024 End: 07-14-2024 [facility] Start: 07-14-2024 End: 07-14-[address] Misbah Marcum MD -[facility] Work Phone: Start: 07-02-2024 End: 07-02-2024 ambulatory [facility] Facility:[facility] Start: 07-02-2024 End: 07-02-2024 Patient encounter procedure Kaye SAMSON -[facility] Work Phone: Start: 07-02-2024 End: 07-02-2024 ambulatory [facility] Facility:[facility] Start: 04-16-2024 End: 04-16-2024 [facility] Start: 04-14-2024 End: 04-14-2024 [facility] Start: 11-27-2023 End: 11-27-2023 ambulatory SHANTE L SWIHART Facility:[facility] Start: 11-27-2023 End: 11-27-2023 Patient encounter procedure Honorio Quintana MD Work Phone: Ophthalmology Comment on above: 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 Work Phone: [facility] Work Phone: Start: 07-18-2023 End: 07-18-2023 Patient encounter procedure [facility] Work Phone: [facility]-Laboratory Work Phone: Start: 07-04-2023 End: 07-04-2023 Patient encounter procedure [facility] Work Phone: [facility] Work Phone: Start: 07-02-2023 End: 07-02-2023 Patient encounter procedure [facility] Work Phone: [facility] Work Phone: Start: 05-28-2023 End: 05-28-2023 ambulatory SHANTE L SWIHART Facility:[facility] Start: 04-02-2023 End: 04-02-2023 Patient encounter procedure [facility] Work Phone: [facility] Work Phone: Start: 03-05-2023 End: 03-05-2023 ambulatory SHANTE L GINAHART Facility:[facility] Start: 03-05-2023 End: 03-05-2023 Subsequent hospital visit by physician [facility] Work Phone: Radiology Comment on above: 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 Work Phone: [facility] Work Phone: Start: 02-01-2023 End: 02-01-2023 Patient encounter procedure [facility] Start: 02-01-2023 End: 02-01-2023 Patient encounter procedure [facility] Work Phone: [facility] Work Phone: Start: 01-05-2023 End: 01-05-2023 Patient encounter procedure [facility] Work Phone: [facility] Work Phone: Start: 01-03-2023 End: 01-03-2023 [facility] Start: 12-28-2022 End: 12-28-2022 Patient encounter procedure [facility] Work Phone: [facility] Work Phone: Start: 12-27-2022 End: 12-27-2022 Patient encounter procedure [facility] Work Phone: [facility]-Laboratory Work Phone: Start: 11-22-2022 End: 11-22-2022 Emergency department patient visit [facility] Work Phone: [facility]-Emergency Department Work Phone: Start: 10-19-2022 End: 10-19-2022 Patient encounter procedure [facility] Work Phone: [facility] Work Phone: Start: 10-02-2022 End: 10-02-2022 ambulatory [facility] Work Phone: Start: 10-02-2022 End: 10-02-2022 Patient encounter procedure [facility]-Laboratory Start: 09-27-2022 End: 09-27-2022 ambulatory [facility] Work Phone: Start: 09-27-2022 End: 09-27-2022 Patient encounter procedure [facility]-Outpatient Breast Imaging Start: 07-31-2022 End: 07-31-2022 ambulatory [facility] Work Phone: Start: 07-31-2022 End: 07-31-2022 Patient encounter procedure [facility]-Laboratory Start: 06-01-2022 End: 06-01-2022 Emergency department patient visit [facility]-Emergency Department Start: 10-06-2021 End: 10-06-2021 Patient encounter procedure Shaka Alonso Work Phone: Podiatry Comment on above: Onychomycosis (Prima ry Dx); Pain in toe of left foot; Pain in toe of right foot; Other diabetic neurological complication associated with type 2 diabetes mellitus (HCC); Hyperkeratosis Start: 10-15-2018 Patient encounter procedure NAHOMY GARCIA Facility:[facility] Start: 07-09-2018 End: 09-27-2018 Patient encounter procedure NAHOMY GARCIA Facility:[facility] Start: 04-02-2018 End: 04-02-2018 Patient encounter procedure NAHOMY YORKY Facility:[facility] Start: 01-29-2018 End: 01-29-2018 Patient encounter procedure NAHOMY GARCIA Facility:[facility] Start: 10-29-2017 Patient encounter procedure NAHOMY GARCIA Facility:[facility] Start: 10-16-2017 Patient encounter procedure NAHOMY GARCIA Facility:[facility] Procedures Date Procedure Procedure Detail Performing Clinician Start: 01-27-2025 MRI of brain without contrast Sarah Toth NP-C Work Phone: Start: 01-27-2025 Estimated creatinine clearance Sarah Toth NP-C Work Phone: Start: 01-26-2025 CT angiography of he ad and neck Sarah Toth CREDENTIALING ANALYST-C Work Phone: Start: 01-26-2025 CT of head without contrast Sarah Toth CREDENTIALING ANALYST-C Work Phone: Start: 01-26-2025 Estimated creatinine clearance Sarah Toth CREDENTIALING ANALYST-C Work Phone: Start: 11-30-2024 Estimated creatinine clearance Sarah Toth NP-C Work Phone: Start: 11-30-2024 X-ray of chest, PA a nd lateral views Sarah Toth CREDENTIALING ANALYST-C Work Phone: Start: 10-22-2024 Vitamin D, 25-hydrox y measurement Sarah Toth NP-C Work Phone: Comment on above: Vitamin D StatusDefi ciency: <20 ng/mL (50nmol/L)Insufficiency: 20-30 ng/mL (50-75 nmol/L)Sufficiency: 30-100 ng/mL (75-250 nmol/L)Toxicity: >100 ng/mL (>250 nmol/L) Start: 07-02-2024 Measurement of renal function Sarah Ttoh CREDENTIALING ANALYST-C Work Phone: Comment on above: GFR Calc Start: 07-02-2024 Microalbuminuria measurement Sarah Toth CREDENTIALING ANALYST-C Work Phone: Start: 07-02-2024 Vitamin D, 25-hydrox y measurement Sarah Toth CREDENTIALING ANALYST-C Work Phone: Comment on above: Vitamin D [...] Work Phone: Start: 09-13-2023 Plain chest X-ray [facility] Work Phone: Start: 03-05-2023 Us abdominal real ti me w/image limited Jay Jay Garcia MD Work Phone: Start: 11-22-2022 Plain X-ray abdomen [facility] Work Phone: Start: 09-27-2022 Screening mammography [...] PA-C Work Phone: Start: 11-29-2015 End: 11-29-2015 [facility] Kaye Burris PA-C Work Phone: Start: 11-29-2015 [...] MD Start: 09-29-2015 End: 09-30-2015 Referral to hand fretted instrument maker Stewart abraham MD Start: 09-29-2015 End: 09-30-2015 Referral to hand fretted instrument maker Stewart abraham MD Start: 09-20-2015 End: 09-21-2015 Referral to hand fretted instrument maker Stewart abraham MD Start: 09-20-2015 End: 11-10-2016 Us abdominal real time w/image limited Stewart Boggs MD Start: 09-20-2015 End: 11-10-2016 Cardiac Rehab Stewart Boggs MD Start: 09-20-2015 End: 11-10-2016 Echo exam of abdomen Stewart Boggs MD Start: 09-20-2015 End: 09-21-2015 Referral to hand fretted instrument maker Stewart abraham MD Start: 07-22-2015 End: 11-05-2015 [...] Activity Detail Author Start: 01-27-2025 Patient discharge [facility] Start: 01-27-2025 Application of intermittent pneumatic compression device [facility] Start: 01-26-2025 Following clinical pathway protocol [facility] Start: 01-26-2025 Assessment of risk of venous thromboembolism [facility] Start: 01-26-2025 Cardiac monitoring [facility] Start: 01-26-2025 Care regimes management [facility] Start: 01-26-2025 Catheterization of vein [facility] Start: 01-26-2025 Consultation [facility] Start: 01-26-2025 Continuous pulse oximetry [facility] Start: 01-26-2025 Elevation of head of bed [facility] Start: 01-26-2025 Exercises [facility] Start: 01-26-2025 Insertion of catheter into peripheral vein [facility] Start: 01-26-2025 Measuring intake and output [facility] Start: 01-26-2025 Notification of physician [facility] Start: 01-26-2025 Oxygen therapy [facility] Start: 01-26-2025 Patient referral to dietitian [facility] Start: 01-26-2025 Providing care according to standard [facility] Start: 01-26-2025 Provision of activity privileges [facility] Start: 01-26-2025 Referral to occupational therapist [facility] Start: 01-26-2025 Referral to service [facility] Start: 01-26-2025 Speech therapy assessment [facility] Start: 01-26-2025 Telemedicine consultation with patient [facility] Start: 01-26-2025 Tobacco use cessation education [facility] Start: 01-26-2025 End: 01-26-2025 [facility] Start: 01-26-2025 Vital signs measurements [facility] Start: 01-26-2025 MRI of brain without contrast Brain without Contrast [facility] Start: 01-26-2025 Verification routine [facility] Start: 01-26-2025 End: 01-26-2025 [facility] Start: 01-26-2025 Admission procedure [facility] Start: 01-26-2025 Hospital admission, emergency, from emergency room, medical nature [facility] Start: 01-26-2025 Urinalysis complete panel - Urine [facility] Start: 11-30-2024 [facility] Start: 11-30-2024 [facility] Start: 11-26-2024 Glaucoma screening Dilated Retinal Exam [facility] Start: 02-23-2024 Hepatitis C antibody, confirmatory test Dilated Retinal Exam [facility] Start: 02-10-2024 Influenza vaccination Influenza Vaccine (Season Ended) [facility] Start: 09-13-2023 [facility] Start: 06-11-2023 Advance Directive Discussion Advance Directive Discussion [facility] Start: 06-11-2023 Behavioral Health Screening Behavioral Health Screening [facility] Start: 02-09-2023 Covid-19 Vaccine ( season) Covid-19 Vaccine ( season) [facility] Start: 02-09-2023 Influenza vaccination Influenza Vaccine (#1) [facility] Start: 06-11-2022 Advance Directive Discussion Advance Directive Discussion [facility] Start: 06-11-2022 Depression Assessment Depression Assessment [facility] Start: 06-01-2022 [facility] Start: 12-10-2021 3 comp foot exam completed DIABETIC FOOT EXAM [facility] Start: 12-10-2021 Diabetic foot examination Diabetic Foot Exam [facility] Start: 10-18-2021 Shingrix Vaccine (2 of 2) Shingrix Vaccine (2 of 2) [facility] Start: 06-11-2021 ADVANCE DIRECTIVE DISCUSSION ADVANCE DIRECTIVE DISCUSSION [facility] Start: 05-19-2020 Pneumococcal Vaccine: 65+ (2 - PPSV23 or PCV20) Pneumococcal Vaccine: 65+ (2 - PPSV23 or PCV20) [facility] Start: 05-19-2020 Pneumococcal Vaccine: 65+ (2 of 2 - PPSV23 or PCV20) Pneumococcal Vaccine: 65+ (2 of 2 - PPSV23 or PCV20) [facility] Start: 01-31-2019 Hepatitis C antibody, confirmatory test DILATED RETINAL EXAM [facility] Start: 11-08-2018 Influenza vaccination LUNG CANCER SCREENING [facility] Start: 2018 BONE DENSITY BONE DENSITY [facility] Start: 2018 Bone Density Screening Bone Density Screening [facility] Start: 2018 PNEUMOVAX AGE 65 AND OVER WITH 5YR LOOKBACK (#1) PNEUMOVAX AGE 65 AND OVER WITH 5YR LOOKBACK (#1) [facility] Start: 2018 Screening for osteoporosis Bone Density Screening [facility] Start: 05-05-2018 Hemoglobin A1c measurement HbA1C [facility] Start: 05-05-2018 Hemoglobin A1c/Hemoglobin.total in Blood HBA1C [facility] Start: 07-17-2017 Hepatitis B surface antibody level LDL Cholesterol [facility] Start: 07-16-2017 End: 07-16-2017 Appointment Appointment [facility] Work Phone: Start: 03-12-2017 End: 03-12-2017 Appointment Appointment [facility] Work Phone: Start: 03-12-2017 End: 03-12-2017 Follow Up Appt 6 months Follow Up Appt 6 months [facility] Work Phone: Start: 03-12-2017 End: 03-12-2017 PFM PFM [facility] Work Phone: Start: 12-01-2016 End: 12-01-2016 Follow Up Appt 3 months Follow Up Appt 3 months [facility] Work Phone: Start: 12-01-2016 End: 12-01-2016 Follow Up Appt 6 months Follow Up Appt 6 months [facility] Work Phone: Start: 12-01-2016 End: 12-01-2016 MMM MMM [facility] Work Phone: Start: 12-01-2016 End: 12-01-2016 PFM PFM [facility] Work Phone: Start: 12-01-2016 End: 12-01-2016 Follow Up Appt 3 months Follow Up Appt 3 months [facility] Work Phone: Start: 12-01-2016 End: 12-01-2016 Follow Up Appt 6 months Follow Up Appt 6 months [facility] Work Phone: Start: 12-01-2016 End: 12-01-2016 MMM MMM [facility] Work Phone: Start: 12-01-2016 End: 12-01-2016 PFM PFM [facility] Work Phone: Start: 08-23-2016 End: 08-31-2016 *BMP *BMP [facility] Work Phone: Start: 08-23-2016 End: [...] End: 08-31-2016 BNP *Brain Natriuretic Peptide BNP [facility] Work Phone: Start: 08-23-2016 End: 08-23-2016 Follow Up Appt 3 months Follow Up Appt 3 months [facility] Work Phone: Start: 08-23-2016 End: 08-23-2016 MMM MMM [facility] Work Phone: Start: 07-17-2016 End: 03-12-2017 *Hepatic Function Panel *Hepatic Function Panel [facility] Work Phone: Start: 07-17-2016 End: 03-12-2017 Lipid 1996 panel *Lipid Profile CC PCP [facility] Work Phone: Start: 07-17-2016 End: 01-19-2016 *Hepatic Function Panel *Hepatic Function Panel [facility] Work Phone: Start: 07-17-2016 End: 01-19-2016 Lipid panel [AGGREGATE] *Lipid Profile CC PCP [facility] Work Phone: Start: 03-11-2016 End: 04-10-2016 Lipid 1996 panel *Lipid Profile CC PCP [facility] Work Phone: Start: 03-11-2016 End: 04-10-2016 Lipid panel [AGGREGATE] *Lipid Profile CC PCP [facility] Work Phone: Start: 02-29-2016 End: 02-29-2016 Follow Up Appt Other Follow Up Appt Other [facility] Work Phone: Start: 02-29-2016 End: 02-29-2016 PFM PFM [facility] Work Phone: Start: 02-29-2016 End: 02-29-2016 Follow Up Appt Other Follow Up Appt Other [facility] Work Phone: Start: 02-29-2016 End: 02-29-2016 PFM PFM [facility] Work Phone: Start: 01-19-2016 End: 01-19-2016 Carotid duplex Carotid duplex [facility] Work Phone: Start: 01-19-2016 End: 01-19-2016 Follow Up Appt 6 weeks Follow Up Appt 6 weeks [facility] Work Phone: Start: 01-19-2016 End: 11-10-2016 Follow Up Appt Other Follow Up Appt Other [facility] Work Phone: Start: 01-19-2016 End: 01-19-2016 MMM MMM [facility] Work Phone: Start: 01-19-2016 End: 01-19-2016 Carotid duplex Carotid duplex [facility] Work Phone: Start: 01-19-2016 End: [...] 3 months Follow Up Appt 3 months [facility] Work Phone: Start: 11-29-2015 End: 11-29-2015 Follow Up Appt 6 months Follow Up Appt 6 months [facility] Work Phone: Start: 11-29-2015 End: 11-29-2015 MMM MMM [facility] Work Phone: Start: 11-29-2015 End: 11-29-2015 PFM PFM [facility] Work Phone: Start: 11-29-2015 End: 11-29-2015 Follow Up Appt 3 months Follow Up Appt 3 months [facility] Work Phone: Start: 11-29-2015 End: 11-29-2015 Follow Up Appt 6 months Follow Up Appt 6 months [facility] Work Phone: Start: 11-29-2015 End: 11-29-2015 MMM MMM [facility] Work Phone: Start: 11-29-2015 End: 11-29-2015 PFM PFM [facility] Work Phone: Start: 10-22-2015 End: 10-22-2015 Ecg routine ecg w/least 12 lds w/i&r EKG (In office) [facility] Work Phone: Start: 10-22-2015 End: [...] [address], [place], [address] [facility] Work Phone: Start: 09-29-2015 End: 09-29-2015 Cardiac Referral Cardiac Referral Nahomy Garcia MD, [address], [place], [address] [facility] Work Phone: Start: 09-20-2015 End: 11-05-2015 Cardiac Rehab [facility] [address] [place], [address] [facility] [facility] Work Phone: Start: 09-20-2015 End: 11-05-2015 External Counterpulsation Therapy External Counterpulsation Therapy [address] [place], [address] [facility] Work Phone: Start: 09-20-2015 End: 09-20-2015 Us abdominal real time w/image limited US Abdominal (aneurysm screening) [facility] Work Phone: Start: 09-20-2015 End: 11-05-2015 Cardiac Rehab Cardiac Rehab [address] [place], [address] [facility] Work Phone: Start: 09-20-2015 End: 09-20-2015 Echo exam of abdomen US Abdominal (aneurysm screening) [facility] Work Phone: Start: 09-20-2015 End: 11-05-2015 External Counterpulsation Therapy External Counterpulsation Therapy [address] [place], [address] [facility] Work Phone: Start: 07-22-2015 End: 07-22-2015 Echocardiography Echocardiogram (limited) [facility] Work Phone: Start: 07-22-2015 End: 07-22-2015 Follow Up Appt 3 months Follow Up Appt 3 months [facility] Work Phone: Start: 07-22-2015 End: 07-22-2015 MMM MMM [facility] Work Phone: Start: 07-22-2015 End: 07-22-2015 Echocardiography Echocardiogram (limited) [facility] Work Phone: Start: 07-22-2015 End: 07-22-2015 Follow Up Appt 3 months Follow Up Appt 3 months [facility] Work Phone: Start: 07-22-2015 End: 07-22-2015 MMM MMM [facility] Work Phone: Start: 06-21-2015 End: 06-23-2015 *BMP *BMP [facility] Work Phone: Start: 06-21-2015 End: 06-23-2015 *BMP *BMP [facility] Work Phone: Start: 06-10-2015 End: 07-15-2015 Follow Up Appt 3 months Follow Up Appt 3 months [facility] Work Phone: Start: 06-10-2015 End: 06-10-2015 Follow Up Appt 6 weeks Follow Up Appt 6 weeks [facility] Work Phone: Start: 06-10-2015 End: 06-23-2015 Follow Up BP Check Follow Up BP Check [facility] Work Phone: Start: 06-10-2015 End: 06-10-2015 MMM MMM [facility] Work Phone: Start: 06-10-2015 End: 07-15-2015 PFM PFM [facility] Work Phone: Start: 06-10-2015 End: 07-15-2015 Follow Up Appt 3 months Follow Up Appt 3 months [facility] Work Phone: Start: 06-10-2015 [...] stress test -Lexiscan Nuclear stress test -Lexiscan [facility] Work Phone: Start: 05-27-2015 End: 05-28-2015 Nuclear stress test -Lexiscan Nuclear stress test -Lexiscan [facility] Work Phone: Start: 2013 Hepatitis B Vaccine (1 of 3 - Risk 3-dose series) Hepatitis B Vaccine (1 of 3 - Risk 3-dose series) [facility] Start: 2013 RSV Vaccine (1 - 1-dose 60+ series) RSV Vaccine (1 - 1-dose 60+ series) [facility] Start: 2003 SHINGRIX VACCINE (1 of 2) SHINGRIX VACCINE (1 of 2) [facility] Start: 1998 COLOGUARD (FIT-DNA) COLOGUARD (FIT-DNA) [facility] Start: 1998 Colonoscopy COLONOSCOPY [facility] Start: 1998 COLORECTAL CANCER SCREENING COLORECTAL CANCER SCREENING [facility] Start: [address] COLONOGRAPHY [facility] Start: 1998 FECAL OCCULT BLOOD FECAL OCCULT BLOOD [facility] Start: 1998 Screening for malignant neoplasm of colon [facility] Start: 1998 SIGMOIDOSCOPY SIGMOIDOSCOPY [facility] Start: 1993 Mammography [facility] Start: 1993 Screening for malignant neoplasm of breast Mammogram Screening [facility] Start: 1972 Urine microalbumin profile [facility] Start: 1971 ANNUAL PCP TEAM CHRONIC DISEASE VISIT ANNUAL PCP TEAM CHRONIC DISEASE VISIT [facility] Start: 1971 BP CONTROLLED (<130/80) BP CONTROLLED (<130/80) [facility] Start: 1971 Hepatitis B surface antibody level LDL CHOLESTEROL [facility] Start: 1971 HEPATITIS C SCREENING HEPATITIS C SCREENING [facility] Start: 1971 Hepatitis C screening Hepatitis C Screening [facility] Start: 1965 Adult depression screening assessment DEPRESSION SCREENING [facility] Start: 1963 Hepatitis B screening URINE ALBUMIN:CREATININE RATIO [facility] Hemoglobin A1c/Hemoglobin.total in Blood [facility] Hemoglobin A1c/Hemoglobin.total in Blood [facility] Hemoglobin A1c/Hemoglobin.total in Blood [facility] NM Heart Views W str ess and W radionuclide IV [facility] Patient Education [facility] Work Phone: Patient referral [facility] Work Phone: Troponin T.cardiac [Mass/volume] in Serum or Plasma by High sensitivity method [facility] Troponin T.cardiac [Mass/volume] in Serum or Plasma by High sensitivity method [facility] End: 12-26-2024 US Abdomen RUQ US ABD RIGHT UPPER QUADRANT Radiology Routine 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 Occurrences starting 11/27/2023 until 12/26/2024 [facility] Work Phone: Comment on above: 1 Occurrences starting 11/27/2023 until 12/26/2024 [facility] Immunizations Immunization Date Immunization Notes Care Provider Taye burden 06-07-2021 influenza virus vaccine, unspecified formulation Us 1 Work Phone: [facility] 05-09-2019 influenza, injectable,quadrivalent , preservative free, pediatric [facility] 05-27-2015 influenza, injectabl e, quadrivalent, preservative free [facility] Work Phone: [facility] 05-27-2015 influenza, seasonal, injectable [facility] Payers Date Payer Category Payer Medicare [id number] 2024 Medicare [id number] 2023 Self-pay [id number] 2022 Medicare AETNA MEDICARE A ETNA MEDICARE PPO [id number] 2022-Present [phone] [address] [place] [address] PPO [id number] [facility] [id number] 2018 Medicare MEDICARE MEDICAR E A AND B [id number] 2018-Present [phone] [address] [address] [place] [address] Medicare [id number] 2018 Unknown HOSPITAL/MEDICAL GENERIC MEDICAL GENERIC [id number] 2018-Present [phone] [address] [place] [address] Indemnity [id number]. [id number] 2015 Unknown [id number] 1955 Unknown [id number] 2.16.840.1.275016.3.579.2. 278 1955 Unknown [id number] 2.16.840.1.687275.3.579.2. 278 1955 Unknown [id number] 2.16.840.1.292169.3.579.2. 278 1955 Unknown [id number] 2.16.840.1.672213.3.579.2. 278 1955 Unknown [id number] 2.16.840.1.510976.3.579.2. 278 1955 Unknown [id number] 2.16.840.1.816801.3.579.2. 278 1955 Unknown [id number] 2..840.1.356479.3.579.2. 278 Medicare [id number] Medicare MEDICARE PART A B [id number] 2 [id number] Unknown [id number] Unknown [id number] 2.16.840.1.901131.3.579.2. 462 Unknown [id number] 2.840.1.599548.3.579.2. 462 Unknown [id number] 2.840.1.053676.3.579.2. 462 Unknown [id number] 2.16840.1.099184.3.579.2. 462 Unknown [id number] 2..840.1.582554.3.579.2. 462 Unknown [id number] 2..840.1.394840.3.579.2. 462 Unknown [id number] 2.16840.1.763957.3.579.2. 462 Unknown [id number] 2.16.840.1.636903.3.579.2. 462 Unknown [id number] 2.16840.1.493843.3.579.2. 462 Unknown [id number] 2.16.840.1.394828.3.579.2. 462 Unknown [id number] 2.16.840.1.506696.3.579.2. 462 Unknown [id number] 2.16.840.1.456671.3.579.2. 462 Unknown [id number] 2.16.840.1.262751.3.579.2. 462 Unknown [id number] 2.16.840.1.209262.3.579.2. 462 Unknown [id number] 2.16.840.1.811969.3.579.2. 462 Unknown [id number] 2.16.840.1.944507.3.579.2. 462 Unknown [id number] 2.16.840.1.878836.3.579.2. 462 Unknown [id number] 2.16.840.1.583351.3.579.2. 462 Unknown [id number] 2.16.840.1.293736.3.579.2. 462 Unknown [id number] 2.16.840.1.280226.3.579.2. 462 Unknown [id number] 2.16.840.1.098961.3.579.2. 462 Unknown [id number] 2.16.840.1.142153.3.579.2. 462 Unknown [id number] 2.16.840.1.421293.3.579.2. 462 Unknown [id number] 2.16.840.1.008092.3.579.2. 462 Unknown [id number] 2.16.840.1.609616.3.579.2. 462 Social History Date Type Detail Facility Start: 02-22-2023 End: 01-27-2025 Tobacco smoking status IDIS Ex-smoker [facility] Work Phone: End: 12-26-2006 History of tobacco use Current smoker [facility] Start: 10-06-2021 End: 11-27-2023 Alcohol intake Current drinker of alcohol (finding) [facility] Start: 06-29-2021 History SDOH Alcohol Comment seldom [facility] Start: 1955 Sex Assigned At Not on file [facility] Start: 09-26-2021 End: 10-06-2021 Exposure to SARS-CoV-2 (event) Not sure [facility] Work Phone: Start: 06-01-2022 End: 09-13-2023 Tobacco smoking status NHIS Unknown if ever smoked [facility] Start: 04-30-2020 None [facility] Start: 07-06-2020 Spouse/ Signif icant Other [facility] Start: 10-27-2019 Cigarettes [facility] Start: 1955 Sex Assigned At Female W [facility]: 12-26-2006 History of tobacco use Cigarette Smoker [facility] Start: 01-03-2023 End: 02-22-2023 Cigarettes smoked current (pack per day) - Reported 2 [facility] Start: 02-22-2023 Tobacco use and exposure Smokeless tobacco non-user [facility] Start: 01-03-2023 End: 02-22-2023 Tobacco use panel [facility] Retired 07/10/2019 P HQ Score 0 [facility] Medical Equipment Procedure Code Equipment Code Equipment Origin al Text Equipment Identifier Dates [employer] X4 ENTRY LEVEL RECEPTIONIST-D FDA Start: 03-16-2016 [employer] X4 ENTRY LEVEL RECEPTIONIST-D FDA Start: 03-16-2016 [employer] X4 ENTRY LEVEL RECEPTIONIST-D FDA Start: 03-16-2016 [employer] X4 ENTRY LEVEL RECEPTIONIST-D FDA Start: 03-16-2016 [employer] X4 ENTRY LEVEL RECEPTIONIST-D FDA Start: 03-16-2016 [employer] X4 ENTRY LEVEL RECEPTIONIST-D FDA Start: 03-16-2016 [employer] X4 ENTRY LEVEL RECEPTIONIST-D FDA Start: 03-16-2016 [employer] X4 ENTRY LEVEL RECEPTIONIST-D FDA Start: 03-16-2016 [employer] X4 ENTRY LEVEL RECEPTIONIST-D FDA Start: 03-16-2016 [employer] X4 ENTRY LEVEL RECEPTIONIST-D FDA Start: 03-16-2016 [employer] X4 ENTRY LEVEL RECEPTIONIST-D FDA Start: 03-16-2016 [employer] X4 ENTRY LEVEL RECEPTIONIST-D FDA Start: 03-16-2016 [employer] X4 ENTRY LEVEL RECEPTIONIST-D FDA Start: 03-16-2016 [employer] X4 ENTRY LEVEL RECEPTIONIST-D FDA Start: 03-16-2016 [employer] X4 ENTRY LEVEL RECEPTIONIST-D FDA Start: 03-16-2016 [employer] X4 ENTRY LEVEL RECEPTIONIST-D FDA Start: 03-16-2016 [employer] X4 ENTRY LEVEL RECEPTIONIST-D FDA Start: 03-16-2016 [employer] X4 ENTRY LEVEL RECEPTIONIST-D FDA Start: 03-16-2016 [employer] X4 ENTRY LEVEL RECEPTIONIST-D FDA Start: 03-16-2016 [employer] X4 ENTRY LEVEL RECEPTIONIST-D FDA Start: 03-16-2016 [employer] X4 ENTRY LEVEL RECEPTIONIST-D FDA Start: 03-16-2016 [employer] X4 ENTRY LEVEL RECEPTIONIST-D FDA Start: 03-16-2016 [employer] X4 ENTRY LEVEL RECEPTIONIST-D FDA Start: 03-16-2016 [employer] X4 ENTRY LEVEL RECEPTIONIST-D FDA Start: 03-16-2016 [employer] X4 ENTRY LEVEL RECEPTIONIST-D FDA Start: 03-16-2016 [employer] X4 ENTRY LEVEL RECEPTIONIST-D FDA Start: 03-16-2016 [employer] X4 ENTRY LEVEL RECEPTIONIST-D FDA Start: 03-16-2016 [employer] X4 ENTRY LEVEL RECEPTIONIST-D FDA Start: 03-16-2016 [employer] X4 ENTRY LEVEL RECEPTIONIST-D FDA Start: 03-16-2016 [employer] X4 ENTRY LEVEL RECEPTIONIST-D FDA Start: 03-16-2016 [employer] X4 ENTRY LEVEL RECEPTIONIST-D FDA Start: 03-16-2016 [employer] X4 ENTRY LEVEL RECEPTIONIST-D FDA Start: 03-16-2016 [employer] X4 ENTRY LEVEL RECEPTIONIST-D FDA Start: 03-16-2016 [employer] X4 ENTRY LEVEL RECEPTIONIST-D FDA Start: 03-16-2016 [employer] X4 ENTRY LEVEL RECEPTIONIST-D FDA Start: 03-16-2016 [employer] X4 ENTRY LEVEL RECEPTIONIST-D FDA Start: 03-16-2016 [employer] X4 ENTRY LEVEL RECEPTIONIST-D FDA Start: 03-16-2016 [employer] X4 ENTRY LEVEL RECEPTIONIST-D FDA Start: 03-16-2016 [employer] X4 ENTRY LEVEL RECEPTIONIST-D FDA Start: 03-16-2016 [employer] X4 ENTRY LEVEL RECEPTIONIST-D FDA Start: 03-16-2016 [employer] X4 ENTRY LEVEL RECEPTIONIST-D FDA Start: 03-16-2016 [employer] X4 ENTRY LEVEL RECEPTIONIST-D FDA Start: 03-16-2016 [employer] X4 ENTRY LEVEL RECEPTIONIST-D FDA Start: 03-16-2016 [employer] X4 ENTRY LEVEL RECEPTIONIST-D FDA Start: 03-16-2016 [employer] X4 ENTRY LEVEL RECEPTIONIST-D FDA Start: 03-16-2016 [employer] X4 ENTRY LEVEL RECEPTIONIST-D FDA Start: 03-16-2016 [employer] X4 ENTRY LEVEL RECEPTIONIST-D FDA Start: 03-16-2016 [employer] X4 ENTRY LEVEL RECEPTIONIST-D FDA Start: 03-16-2016 [employer] X4 ENTRY LEVEL RECEPTIONIST-D FDA Start: 03-16-2016 [employer] X4 ENTRY LEVEL RECEPTIONIST-D FDA Start: 03-16-2016 [employer] X4 ENTRY LEVEL RECEPTIONIST-D FDA Start: 03-16-2016 [employer] X4 ENTRY LEVEL RECEPTIONIST-D FDA Start: 03-16-2016 [employer] X4 ENTRY LEVEL RECEPTIONIST-D FDA Start: 03-16-2016 [employer] X4 ENTRY LEVEL RECEPTIONIST-D FDA Start: 03-16-2016 [employer] X4 ENTRY LEVEL RECEPTIONIST-D FDA Start: 03-16-2016 [employer] X4 ENTRY LEVEL RECEPTIONIST-D FDA Start: 03-16-2016 [employer] X4 ENTRY LEVEL RECEPTIONIST-D FDA Start: 03-16-2016 [employer] X4 ENTRY LEVEL RECEPTIONIST-D FDA Start: 03-16-2016 [employer] X4 ENTRY LEVEL RECEPTIONIST-D FDA Start: 03-16-2016 [employer] X4 ENTRY LEVEL RECEPTIONIST-D FDA Start: 03-16-2016 [employer] X4 ENTRY LEVEL RECEPTIONIST-D FDA Start: 03-16-2016 [employer] X4 ENTRY LEVEL RECEPTIONIST-D FDA Start: 03-16-2016 [employer] X4 ENTRY LEVEL RECEPTIONIST-D FDA Start: 03-16-2016 [employer] X4 ENTRY LEVEL RECEPTIONIST-D FDA Start: 03-16-2016 [employer] X4 ENTRY LEVEL RECEPTIONIST-D FDA Start: 03-16-2016 [employer] X4 ENTRY LEVEL RECEPTIONIST-D FDA Start: 03-16-2016 [employer] X4 ENTRY LEVEL RECEPTIONIST-D FDA Start: 03-16-2016 [employer] X4 ENTRY LEVEL RECEPTIONIST-D FDA Start: 03-16-2016 [employer] X4 ENTRY LEVEL RECEPTIONIST-D FDA Start: 03-16-2016 [employer] X4 ENTRY LEVEL RECEPTIONIST-D FDA Start: 03-16-2016 [employer] X4 ENTRY LEVEL RECEPTIONIST-D FDA Start: 03-16-2016 [employer] X4 ENTRY LEVEL RECEPTIONIST-D FDA Start: 03-16-2016 Goals Date Patient Goal Desired Activity /State Functional Status Date Assessment Result Facility 01-27-2025 Functional status Activity Abili ty Standby Assist [facility] Work Phone: Mental Status Date Assessment Result Facility 01-27-2025 Cognitive function Voice/Name [facility] Work Phone: 01-26-2025 Cognitive function Level Of Cons ciousness Awake;Alert;Appropriate;Follow s Commands [facility] Work Phone: 09-13-2023 Cognitive function Voice/Name [facility] Work Phone: 06-01-2022 Cognitive function Level Of Cons ciousness Awake;Alert;Appropriate;Follow s Commands [facility] Work Phone: Clinical Notes 10-06-2021 to 01-27-2025 Note Date & Type Note Facility 01-27-2025 Procedure note [facility] 01-27-2025 Procedure note [facility] 01-27-2025 Discharge summary [facility] 01-27-2025 Discharge summary [facility] 01-27-2025 Hospital Discharge instructions Additional Instructions Date of Discharge: 01/27/25 [facility] Work Phone: 01-27-2025 Note [facility] Medical Records Department [address] [place] [address] Discharge Summary 01/27/25 1359 MR#: [id number] Acct: [id number] Name: THIAGO PIERRE Rep #: [id number] : 1955 69 From: Sidra Irving MD PCP: ARIA Long, EVENS Status:ADM DENIS Location: [place] [address] Providers Date of Admission: 01/26/25 Date of [...] confusion. She says she was at her kdtofp-td-kvo's house and took a nap and when [...] Laboratory: Laboratory Res (more content not included)... [facility] 01-27-2025 Consult note Note Date/Time January 27, 2025 11:39am [facility] Medical Records Department [address] [place] [address] Consultation - Neurology 01/27/25 1040 MR#: [id number] Acct: [id number] Name: THIAGO PIERRE Rep #:[id number] : 1955 69 From: Joleen Spangler MD PCP: ARIA Long, CREDENTIALING ANALYST-C Statu s:ADM DENIS Location: [place] [address] Assessment and Plan: Neuro Assessment/Plan THIAGO PIERRE [...] failure with recovered EF, migraines presented to [facility] ED 01/26/2025 dueto transient episode of [...] her vision, today 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 went to the nickel plant operator and was told she has retinopathy and [...] disease Pure hypercholesterolemia Atherosclerotic heart disease of [place] coronary artery without angina pectoris Nonrheumatic mitral [...] red dye Allergy Hives Verified 01/26/25 11:33 Ebbqjdu-VAY-GdH Reductase AdvReac Severe Myalgias Verified 01/26/25 11:33 Inhibitor (Hcresfh-Qsw-Opp Reductase Inhibitor) Family History Father , Lung [...] % (Auto) 47.9, Lymph % (Auto) 39.4, [place] % (Auto) 9.0, Eos % (Auto) 2.7, [...] % (Auto) 53.5, Lymph % (Auto) 34.6, [place] % (Auto) 7.1, Eos % (Auto) 3.6, [...] microvascular ischemia and volume loss. Reading Location: [id number] Head/Neck CTA 01/26/25 12:27 IMPRESSION: Minimal plaque formation at the origin of the right and left internal carotid arteries causing minimal narrowing. Reading Location: [id number] Active Medications Active Medications Active Medications: Current [...] 10 Mg Tablet PO Not Given DAILY [facility] Protocol Aspirin 81 mg 01/27/25 08:00 01/27/25 [...] mls @ 15 mls/hr 01/26/25 18:14 IV .[id number] PRN Saline Flush Sodium Chloride 250 mls @ 15 mls/hr 01/26/25 18:14 IV .[id number] PRN Additional IVPB Infusion Insulin Glargine 7 unit 01/26/25 16:52 01/26/25 18:25 Insulin Glargine-Yfgn 100 Unit/Ml Pen SC Not Given Q24H [facility] Insulin Human Lispro 0 unit 01/26/25 16:52 01/27/25 06:42 Insulin Lispro 100 Unit/Ml Insuln.Pen SC 1 u ACHS [facility] Administration Protocol Labetalol HCl 10 - 20 [...] and with change in RN caregiver. Freq: [id number] Protocol: Activity Type Activity Date Activity User E-sign Co-sign Detail Recorded Client Recorded Date Recorded By Document 01/27/25 08:40 [id number] 01/27/25 08:47 01/27/25 08:40 NIH Stroke Scale [...] MD> Cosigner Signature (if applicable): CC: ARIA CREDENTIALING ANALYST-C Sarah Toth~ Signed [facility] Work Phone: 1(891) 872-895208-19-2025 Consult note [facility] Medical Records Department [address] [place] [address] Consultation - Neurology 01/27/25 1040 MR#: [id number] Acct: [id number] Name: THIAGO PIERRE Rep #:[id number] : 1955 69 From: Joleen Spangler MD PCP: Sarah Toth, ARIA, CREDENTIALING ANALYST-C Statu s:ADM DENIS Location: [place] [address] Assessment and Plan: Neuro Assessment/Plan THIAGO PIERRE [...] failure with recovered EF, migraines presented to [facility] ED 01/26/2025 dueto transient episode of [...] her vision, today she went to the [employer] plant operator and was told she has retinopathy and [...] disease Pure hypercholesterolemia Atherosclerotic heart disease of [place] coronary artery without angina pectoris Nonrheumatic mitral [...] red dye Allergy Hives Verified 01/26/25 11:33 Osnoeyu-ZHU-CqR Reductase AdvReac Severe Myalgias Verified 01/26/25 11:33 Inhibitor (Mcjxtas-Nle-Jvg Reductase Inhibitor) Family History Father , Lung [...] % (Auto) 47.9, Lymph % (Auto) 39.4, [place] % (Auto) 9.0, Eos % (Auto) 2.7, [...] % (Auto) 53.5, Lymph % (Auto) 34.6, [place] % (Auto) 7.1, Eos % (Auto) 3.6, [...] microvascular ischemia and volume loss. Reading Location: [id number] Head/Neck CTA 01/26/25 12:27 IMPRESSION: Minimal plaque formation at the origin of the right and left internal carotid arteries causing minimal narrowing. Reading Location: [id number] Active Medications Active Medications Active Medications: Current [...] 10 Mg Tablet PO Not Given DAILY [facility] Protocol Aspirin 81 mg 01/27/25 08:00 01/27/25 08:54 Aspirin 81 Mg Tab.Chew PO 81 mg BREAKFAST ABDULLAIH Administration Carvedilol 12.5 mg 01/26/25 22:00 01/27/25 09:06 Carvedilol 12.5 Mg Tablet PO Not Given BID ABDULLAHI Furosemide 20 mg 01/26/25 16:52 01/26/25 18:26 Furosemide 20 Mg Tablet PO Not Given DAILY [facility] Protocol Gabapentin 600 mg 01/27/25 10:00 01/27/25 [...] mls @ 15 mls/hr 01/26/25 18:14 IV .[id number] PRN Saline Flush Sodium Chloride 250 mls @ 15 mls/hr 01/26/25 18:14 IV .[id number] PRN Additional IVPB Infusion Insulin Glargine 7 unit 01/26/25 16:52 01/26/25 18:25 Insulin Glargine-Yfgn 100 Unit/Ml Pen SC Not Given Q24H [facility] Insulin Human Lispro 0 unit 01/26/25 16:52 01/27/25 06:42 Insulin Lispro 100 Unit/Ml Insuln.Pen SC 1 u ACHS [facility] Administration Protocol Labetalol HCl 10 - 20 [...] and with change in RN caregiver. Freq: [id number] Protocol: Activity Type Activity Date Activity User E-sign Co-sign Detail Recorded Client Recorded Date Recorded By Document 01/27/25 08:40 [id number] 01/27/25 08:47 01/27/25 08:40 NIH Stroke Scale [...] Signature (if applicable): CC: ARIA Toth~ Signed [facility]08-18-2025 Discharge summary Author Cornelia Murillo [facility] Note Date/Time January 26, 2025 3: 50pm [facility] Medical Records Department [address] [place] [address] Emergency Department Summary 01/26/25 MR#: [id number] Acct: [id number] Name: THIAGO PIERRE Rep #:[id number] : 1955 69 From: Cornelia Murillo MD PCP: ARIA Long, EVENS Statu s:ADM DENIS Location: [address] History of Present Illness Chief Complaint: [...] of time and then come back gradually. [facility] Medical History Essential hypertension Elevated troponin History of diabetes mellitus Hx of cardiomyopathy Dysarthria Medication reaction Intractable nausea and vomiting Dizziness Depression Near syncope Vertigo Carotid artery disease Pure hypercholesterolemia Atherosclerotic heart disease of [place] coronary artery without angina pectoris Nonrheumatic mitral [...] red dye Allergy Hives Verified 01/26/25 11:33 Crpjpwo-NIV-ZdZ Reductase AdvReac Severe Myalgias Verified 01/26/25 11:33 Inhibitor (Vjghqtz-Uig-Oax Reductase Inhibitor) Family History Father , Lung [...] Complete visual exam was done at the nickel [employer] operator prior to arrival and I havethe physicians [...] % (Auto) 47.9 Lymph % (Auto) 39.4 [place] % (Auto) 9.0 Eos % (Auto) 2.7 [...] microvascular ischemia and volume loss. Reading Location: [id number] Head/Neck CTA 01/26/25 12:27 IMPRESSION: Minimal plaque formation at the origin of the right and left internal carotid arteries causing minimal narrowing. Reading Location: [id number] Discharge Plan Disposition Disposition: Acute Care Hospital [facility] Discharge Date/Time: 01/26/25 15:46 NIHSS NIHSS [...] problems, contact your Primary Care Provider. Call [facility] ([phone]) or report to the closest Emergency Room. Call 911 if necessary. 01/26/25 1550 <Electronically signed by Cornelia Murillo MD> Cosigner Signature (if applicable): CC: ARIA CREDENTIALING ANALYST-C Sarah Toth ~ Signed [facility] Work Phone: 1(879) 929-620408-18-2025 History and physical note Author Dahiana Oakley [facility] Note Date/Time January 26, 2025 3: 32pm [facility] Medical Records Department [address] [facility] [place] [address] H&P Exam - Hospitalist 01/26/25 1507 MR#: [id number] Acct: [id number] Name: THIAGO PIERRE Rep #:[id number] : 1955 69 From: Dahiana Oakley MD PCP: ARIA Long, CREDENTIALING ANALYST-Chele Statu s:ADM DENIS Location: [place] [address] HPI - General General Date of Admission: 01/26/25 Date of Service: 01/26/25 Chief Complaint: Transient episode of confusion HPI Narrative THIAGO PIERRE, is a 69-year-old female history of nonobstructive CAD, BiV ICD in 2016, diabetes, NICOLLE, hypertension, depression, GERD, heart failure with recovered EF presented to [facility] ED 01/26/2025 due to transient episode [...] her vision, 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 [facility] Medical History Essential hypertension Elevated troponin History of diabetes mellitus Hx of cardiomyopathy Dysarthria Medication reaction Intractable nausea and vomiting Dizziness Depression Near syncope Vertigo Carotid artery disease Pure hypercholesterolemia Atherosclerotic heart disease of [place] coronary artery without angina pectoris Nonrheumatic mitral [...] red dye Allergy Hives Verified 01/26/25 11:33 Ubgnibf-EXY-FlE Reductase AdvReac Severe Myalgias Verified 01/26/25 11:33 Inhibitor (Isqmhtb-Pet-Jux Reductase Inhibitor) Family History Father , Lung [...] deficits, cranial nerves II through XII intact, soqzyc-tr-zyac without significant difficulty bilaterally Skin: No rashes [...] % (Auto) 47.9, Lymph % (Auto) 39.4, [place] % (Auto) 9.0, Eos % (Auto) 2.7, [...] microvascular ischemia and volume loss. Reading Location: OPD-GBUGGRW-KK Head/Neck CTA 01/26/25 12:27 IMPRESSION: Minimal plaque formation at the origin of the right and left internal carotid arteries causing minimal narrowing. Reading Location: ARV-WARGHJGTP-P Assessment & Plan Assessment/Plan (1) Confusion: PLAN: [...] Oakley MD Charges/Coding Visit Charges Inpatient E&M: 16594 Init Hosp L2 01/26/25 1532 <Electronically signed by Dahiana Oakley MD> Cosigner Signature (if applicable): CC: ARIA CREDENTIALING ANALYST-C Sarah Toth; Dr. Dahiana Oakley MD~ Signed [facility] Work Phone: 1(622) 547-707508-18-2025 Discharge summary [facility] Medical Records Department [address] [place] [address] Emergency Department Summary 01/26/25 MR#: [id number] Acct: [id number] Name: THIAGO PIERRE Rep #:[id number] : 1955 69 From: Cornelia Murillo MD PCP: ARIA Long, CREDENTIALING ANALYST-C Statu s:ADM DENIS Location: [address] History of Present Illness Chief Complaint: [...] of time and then come back gradually. [facility] Medical History Essential hypertension Elevated troponin History of diabetes mellitus Hx of cardiomyopathy Dysarthria Medication reaction Intractable nausea and vomiting Dizziness Depression Near syncope Vertigo Carotid artery disease Pure hypercholesterolemia Atherosclerotic heart disease of [place] coronary artery without angina pectoris Nonrheumatic mitral [...] red dye Allergy Hives Verified 01/26/25 11:33 Oszcqod-PDN-KmI Reductase AdvReac Severe Myalgias Verified 01/26/25 11:33 Inhibitor (Ehmovbv-Ftk-Meg Reductase Inhibitor) Family History Father , Lung [...] Complete visual exam was done at the nickel plant operator prior to arrival and I havethe physicians [...] % (Auto) 47.9 Lymph % (Auto) 39.4 [place] % (Auto) 9.0 Eos % (Auto) 2.7 [...] microvascular ischemia and volume loss. Reading Location: LKU-HGRDUFZ-IN Head/Neck CTA 01/26/25 12:27 IMPRESSION: Minimal plaque formation at the origin of the right and left internal carotid arteries causing minimal narrowing. Reading Location: FUI-[id number]-E Discharge Plan Disposition Disposition: Acute Care Hospital [facility] Discharge Date/Time: 01/26/25 15:46 NIHSS NIHSS [...] your Primary Care Provider. Call [facility] ([phone]) or report tothe closest Emergency Room. Call 911 if necessary. 01/26/25 1550 Cosigner Signature (if applicable): CC: ARIA CREDENTIALING ANALYST-C Sarah Toth ~ Signed [facility]08-18-2025 History and physical note [facility] Medical Records Department [address] [place] [address] H&P Exam - Hospitalist 01/26/25 1507 MR#: [id number] Acct: [id number] Name: THIAGO PIERRE Rep #:[id number] 5 : 1955 69 From: Daihana Oakley MD PCP: ARIA Long, CREDENTIALING ANALYSTEphraim Statu s:ADM DENIS Location: [place] [address] HPI - General General Date of Admission: 01/26/25 Date of Service: 01/26/25 Chief Complaint: Transient episode of confusion HPI Narrative THIAGO PIERRE, is a 69-year-old female history of nonobstructive CAD, BiV ICD in 2016, diabetes, NICOLLE, hypertension, depression, GERD, heart failure with recovered EF presented to [facility] ED 01/26/2025 due to transient episode [...] her vision, 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 [facility] Medical History Essential hypertension Elevated troponin History of diabetes mellitus Hx of cardiomyopathy Dysarthria Medication reaction Intractable nausea and vomiting Dizziness Depression Near syncope Vertigo Carotid artery disease Pure hypercholesterolemia Atherosclerotic heart disease of [place] coronary artery without angina pectoris Nonrheumatic mitral (valve) insufficiency Dilated cardiomyopathy Chronic systolic (congestive) heart failure BALWINDER (acute kidney injury) Abnormal electrocardiogram Systolic CHF, acute Hypertension Hyperlipidemia Diabetes mellitus, type II INCOLLE (obstructive sleep apnea) Home Medications ?Medication ?Instructions [...] red dye Allergy Hives Verified 01/26/25 11:33 Awtzlxs-DYN-VsQ Reductase AdvReac Severe Myalgias Verified 01/26/25 11:33 Inhibitor (Mxfqtdq-Dmu-Sdc Reductase Inhibitor) Family History Father , Lung [...] deficits, cranial nerves II through XII intact, kflzar-kb-wigi without significant difficulty bilaterally Skin: No rashes [...] % (Auto) 47.9, Lymph % (Auto) 39.4, [place] % (Auto) 9.0, Eos % (Auto) 2.7, [...] microvascular ischemia and volume loss. Reading Location: WDK-OONCLTJ-KD Head/Neck CTA 01/26/25 12:27 IMPRESSION: Minimal plaque formation at the origin of the right and left internal carotid arteries causing minimal narrowing. Reading Location: GGS-IMFLWBQWN-O Assessment & Plan Assessment/Plan (1) Confusion: PLAN: [...] Oakley MD Charges/Coding Visit Charges Inpatient E&M: 77570 Init Hosp L2 01/26/25 1532 Cosigner Signature (if applicable): CC: ARIA CREDENTIALING ANALYST-C Sarah Toth; Dr. Dahiana Oakley MD~ Signed [facility]08-18-2025 Radiology Diagnostic study note [facility] Imaging Services [address] [place] [address] CTA Head AND Neck W/ Contrast MR#: [id number] Acct: [id number] Name: THIAGO PIERRE Rep #: [id number] : 1955 F 69 From: Bryce Majano MD PCP: ARIA Long, CREDENTIALING ANALYST-C Status: REG ER Study:CTA Head AND Neck W/ Contrast Date of E xam: 01/26/25 Exam# [id number] Ordering Dr: Geronimo Murillo MD PROCEDURE: CTA [...] RIGHT Vertebral: Unremarkable. LEFT Vertebral: Unremarkable. Anatomy: [place] of [place] anatomy is normal. Aneurysm or [...] causing minimal narrowing. Reading Location: TAI CC: [facility] CREDENTIALING ANALYST-C Sarah Toth; Dr. Cornelia Murillo MD ~ Check Cashier: Signed [facility]08-18-2025 Radiology Diagnostic study note [facility] Imaging Services [address] [place] [address] Brain/Head without Contrast MR#: [id number] Acct: [id number] Name: THIAGO PIERRE Rep #: [id number] 5 : 1955 F 69 From: Joe Pillai MD PCP: ARIA Long, CREDENTIALING ANALYST-C Status: REG ER Study:Brain/Head without Contrast Date of Exa m: 01/26/25 Exam# [id number] Ordering Dr: Geronimo Murillo MD PROCEDURE: BRAIN/HEAD [...] microvascular ischemia and volume loss. Reading Location: [id number] CC: Chele CREDENTIALING ANALYST-C Sarah Toth; Dr. Cornelia Murillo MD ~ Check Cashier: Signed [facility]06-22-2025 Discharge summary [facility] Medical Records Department [address] [place] [address] Emergency Department Summary 11/30/24 MR#: [id number] Acct: [id number] Name: THIAGO PIERRE Rep #:[id number] 8 : 1955 69 From: Juventino Kern MD PCP: ARIA Long, CREDENTIALING ANALYST-C Statu s:REG ER Location: ED HPI History [...] alsohistory of dilated cardiomyopathy. 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 Assessment was atherosclerotic heart disease of [place] coronary vessels without anginal practice, chronic. Patient [...] disease Pure hypercholesterolemia Atherosclerotic heart disease of [place] coronary artery without angina pectoris Nonrheumatic mitral [...] red dye Allergy Hives Verified 11/30/24 11:39 Qnpofak-HNY-NaW Reductase AdvReac Severe Myalgias Verified 11/30/24 11:39 Inhibitor (Weftlbu-Tdp-Wny Reductase Inhibitor) semaglutide (From Ozempic) AdvReac Vomiting [...] intact bilaterally and no sensory deficits noted [place] Coma Scale: document GCS findings Spontaneous Obeys [...] % (Auto) 56.9 Lymph % (Auto) 34.7 [place] % (Auto) 5.3 Eos % (Auto) 2.2 [...] not made much urine since receiving Lasix. Aswxgl-cd-otnj patient is if anything isslightly on thedry [...] 11:52 IMPRESSION: NO ACUTE FINDINGS. Reading Location: [facility] EKG Initial EKG: Attestation: I personally reviewed [...] Care Provider: Sarah Toth Referrals: Sarah Toth, CREDENTIALING ANALYST-C [Primary Care Provider] - 3-5 Days Activity Restrictions/Additional Instructions: 1. You need to walk more 2. When you are sitting you need to elevate your toes above your nose 3. Recommend contacting Dr. [place]'s office for follow-up 4. Recommend purchasing compressive hose at the pharmacy. Print Language: Gibraltarian Disposition Disposition: Home, Self Care What to do if you have Problems For any increased pain, shortness of breath, bleeding, nausea or vomiting, chestpain, or any unexpected problems, contact your Primary Care Provider. Call [facility] ([phone]) or report tothe closest Emergency Room. Call 911 if necessary. 11/30/24 1503 Cosigner Signature (if applicable): CC: ARIA CREDENTIALING ANALYST-Chele Toth ~ Signed [facility]06-22-2025 Discharge summary Author Juventino Kern [facility] Note Date/Time November 30, 2024 3:03 pm [facility] Medical Records Department [address] [place] [address] Emergency Department Summary 11/30/24 MR#: [id number] Acct: [id number] Name: THIAGO PIERRE Rep #:[id number] : 1955 69 From: Juventino Kern MD PCP: ARIA Long, CREDENTIALING ANALYST-C Statu s:REG ER Location: ED HPI History [...] history of dilated cardiomyopathy. 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 Assessment was atherosclerotic heart disease of [place] coronary vessels without anginal practice, chronic. Patient [...] disease Pure hypercholesterolemia Atherosclerotic heart disease of [place] coronary artery without angina pectoris Nonrheumatic mitral [...] red dye Allergy Hives Verified 11/30/24 11:39 Exoycuh-NXB-JqO Reductase AdvReac Severe Myalgias Verified 11/30/24 11:39 Inhibitor (Ojbrclw-Vwm-Doj Reductase Inhibitor) semaglutide (From Ozempic) AdvReac Vomiting [...] % (Auto) 56.9 Lymph % (Auto) 34.7 [place] % (Auto) 5.3 Eos % (Auto) 2.2 [...] not made much urine since receiving Lasix. Gfftgb-nj-gcfx patient is if anything isslightly on the [...] 11:52 IMPRESSION: NO ACUTE FINDINGS. Reading Location: [facility] EKG Initial EKG: Attestation: I personally reviewed [...] Care Provider: Sarah Toth Referrals: Sarah Toth, CREDENTIALING ANALYST-C [Primary Care Provider] - 3-5 Days Activity Restrictions/Additional Instructions: 1. You need to walk more 2. When you are sitting you need to elevate your toes above your nose 3. Recommend contacting Dr. Marcum's office for follow-up 4. Recommend purchasing compressive hose at the pharmacy. Print Language: [place]arian Disposition Disposition: Home, Self Care What to do if you have Problems For any increased pain, shortness of breath, bleeding, nausea or vomiting, chestpain, or any unexpected problems, contact your Primary Care Provider. Call [facility] ([phone]) or report to the closest Emergency Room. Call 911 if necessary. 11/30/24 1503 <Electronically signed by Juventino Kern MD> Cosigner Signature (if applicable): CC: ARIA CREDENTIALING ANALYST-C Sarah Toth ~ Signed [facility] Work Phone: 1(466) 392-847506-22-2025 Radiology Diagnostic study note [facility] Imaging Services [address] [place] [address] Chest PA and Lateral MR#: [id number] Acct: [id number] Name: THIAGO PIERRE Rep #: [id number] : 1955 F 69 From: Dahlia Mcpherson MD PCP: ARIA Long, CREDENTIALING ANALYST-C Status: REG ER Study:Chest PA and Lateral Date of Exam: 11/30/24 Exam# [id number] Ordering Dr: Annetta Kern MD PROCEDURE: CHEST [...] Lateral IMPRESSION: NO ACUTE FINDINGS. Reading Location: [id number] CC: ARIA CREDENTIALING ANALYST-Chele Toth; Dr. Juventino Kern MD ~ Check Cashier: Signed [facility]05-15-2025 Evaluation note* Diagnosis Onset Date Resolution Status Admit Date CKD (chronic kidney disease) stage 3, GFR 30-59 ml/min chronic October 232024 1:29pm Diabetes mellitus, type II chronic October 23, 2024 1:29pm Essential hypertension chronic 2024 1:29pm Hyperlipidemia chronic October 23, 2024 1:29pm Microalbuminuria due to type 2 diabetes mellitus chronic October 23, 2024 1:29pm Obesity chronic October 23, 2024 1:29pm [facility] Work Phone: [phone]) 941-347905-15-2025 Evaluation note* Diagnosis Onset Date Resolution Status [...] 2024 1:29pm Atherosclerotic heart diseas e of [place] coronary artery without angina pectoris chronic December 25, 2024 2:19pm Chronic systolic (congestive ) heart failure chronic December 25, 2024 2:19pm Dilated cardiomyopathy chronic Ju [place] 2024 2:19pm Essential hypertension chronic Ju [place] 2024 2:19pm Pure hypercholesterolemia chronic December 25, 2024 2:19pm Cardiac defibrillator in situ inacti ve December 25, 2024 2:19pm [facility] Work Phone: 1(431) 548-792805-15-2025 Evaluation note* Diagnosis Onset Date Resolution Status [...] 2024 1:29pm Atherosclerotic heart diseas e of [place] coronary artery without angina pectoris chronic December 25, 2024 2:19pm Chronic systolic (congestive ) heart failure chronic December 25, 2024 2:19pm Dilated cardiomyopathy chronic Ju ly 2024 2:19pm Essential hypertension chronic Ju ly 2024 2:19pm Pure hypercholesterolemia chronic December 25, 2024 2:19pm Cardiac defibrillator in situ inacti ve December 25, 2024 2:19pm Confusion acute January 26, 2 025 3:07pm [facility] Work Phone: [phone]) 936-298905-15-2025 Evaluation note* Diagnosis Onset Date Resolution Status [...] 2024 1:29pm Atherosclerotic heart diseas e of [place] coronary artery without angina pectoris chronic December [...] Dilated cardiomyopathy chronic [place] 2024 10:20am [facility] Work Phone: 1([phone]) 621-965805-15-2025 Evaluation note* Diagnosis Onset Date Resolution Status [...] 2024 1:29pm Atherosclerotic heart diseas e of [place] coronary artery without angina pectoris chronic December [...] chronic January 27 10:20am Dilated cardiomyopathy chronic [facility] 2024 10:20am [facility] Work Phone: 1(810) 441-942601-22-2025 Evaluation note* Diagnosis Onset Date Resolution Status Admit Date Atherosclerotic heart diseas e of [place] coronary artery without angina pectoris chronic July 02 12:52pm Chronic systolic (congestive ) heart failure chronic July 02 12:52pm Dilated cardiomyopathy chronic [place] 2024 12:52pm Essential hypertension chronic [facility] 2024 12:52pm Pure hypercholesterolemia chronic [...] 2:29pm Obesity (BMI 30-39.9) chronic Jul 2:29pm [facility] Work Phone: 1(696) 548-583901-22-2025 Evaluation note* Diagnosis Onset Date Resolution Status Admit Date Atherosclerotic heart diseas e of [place] coronary artery without angina pectoris chronic July 02 12:52pm Chronic systolic (congestive ) heart failure chronic July 02 12:52pm Dilated cardiomyopathy chronic [place] 2024 12:52pm Essential hypertension chronic [facility] 2024 12:52pm Pure hypercholesterolemia chronic [...] 1:29pm Obesity chronic October 23, 2024 1:29pm [facility] Work Phone: 1(351) 665-428606-18-2024 NoteDate of Procedure 11/27/2023. Consultant Dietitian Information Pigment Supplier: Rebecca Rey Start time: 2:00 PM. Stop time: 2:[address], stable regressed [id number] NoteDate of Procedure 11/27/2023. Consultant Dietitian Information Aga De La Torre, Public Health Worker 11/27/2023 2:22 PM . Notes Eye: Left [...] of treated choroidal melanoma with decreased subretinal opacities.[id number] NoteHNO ID: [id number] Author: HONORIO QUINTANA MD Service: ? Author Type: Physician Type: Progress Notes Filed: 11/27/2023 15:39 Note Text: LTFU 01/2018 - 02/2023. Had previously planned on TTT#2. Returning after seeing Dr. Flanagan, concern for exudative retinal detachment left eye. Decreased vision in the left eye over the last few months. Referred by Dr Olivares ([place]) for OS melanoma evaluation Pt w hx [...] Located superior/superotemporal to disc 12-2 oclock position [place]+ SRF+ Drusen+ RPE changes+ Severe NPDR / [...] Honorio Quintana MD November 27, 2023 3:38 [facility]06-18-2024 History of Present illness Narrative* Honorio Quintana MD - 11/27/2023 2:41 PM EDT [facility] 01/2018 - 02/2023. Had previously planned on TTT#2. Returning after seeing Dr. Flanagan, concern for exudative retinal detachment left eye. Decreased vision in the left eye over the last few months. Referred by Dr Olivares ([place]) for OS melanoma evaluation Pt w hx [...] Located superior/superotemporal to disc 12-2 oclock position [place]+ SRF+ Drusen+ RPE changes+ Severe NPDR / [...] 27, 2023 3:38 PM [facility]12-[facility]-2023 NoteHNO ID: [id number] Author: Honorio Quintana MD Service: ? Author Type: Physician Type: Progress Notes Filed: 05/28/2023 9:05 PM Note Text: LTFU 01/2018 - 02/2023. Had previously planned on TTT#2. Returning after seeing Dr. Flanagan, concern for exudative retinal detachment left eye. Decreased vision in the left eye over the last few months. Referred by Dr Olivares ([place]) for OS melanoma evaluation Pt w hx [...] Located superior/superotemporal to disc 12-2 oclock position [place]+ SRF+ Drusen+ RPE changes+ Severe NPDR / [...] Honorio Quintana MD May 28, 2023 9:04 [facility]09-25-2023 History of Present illness Narrative* Sarah [...] 05, 2023 11:10 AM documented in this encounterBluffton [facility]09-25-2023 NoteHNO ID: [id number] Author: Sarah Dao RDMS Service: ? Author Type: Crisis Specialist Type: Progress Notes Filed: 03/05/2023 11:11 AM [...] Dao RDMS RVT March 05, 2023 11:[address] [facility]09-14-2023 NoteHNO ID: [id number] Author: Honorio Quintana MD Service: ? Author Type: Physician Type: Progress Notes Filed: 02/23/2023 11:07 AM Note Text: LTFU 01/2018 - 02/2023. Had previously planned on TTT#2. Returning after seeing Dr. Flanagan, concern for exudative retinal detachment left eye. Decreased vision in the left eye over the last few months. Referred by Dr Olivares ([place]) for OS melanoma evaluation Pt w hx [...] Located superior/superotemporal to disc 12-2 oclock position [place]+ SRF+ Drusen+ RPE changes+ Severe NPDR / [...] Honorio Quintana MD February 23, 2023 11:[address] [facility]07-26-2023 NoteHNO ID: [id number] Author: Denny Flanagan MD Service: ? Author [...] Denny Flanagan MD January 03, 2023 10:[address] [facility]04-28-2022 History of Present illness Narrative* Shaka [...] Objective: Patient presents to clinic ambulating in [place] Vasc: DP and PT pulses are palpable [...] months. Shaka Alonso DPM documented in this encounterBluffton [facility]04-28-2022 Instructions* Patient Instructions* Shaka Alonso - [...] (or decreased sensation in your feet) a car knocker should always cut your toenails. Be Careful [...] Go to your health care provider or car knocker to treat these conditions. documented in this encounterBluffton HospitalDiss[facility] summary Author Sidra Irving [facility] Note Date/Time January 27, 2025 3: 17pm [facility] Medical Records Department [address] [place] [address] Instructions for Home/Discharge Instructions 01/27/25 1359 MR#: [id number] Acct: [id number] Name: THIAGO PIERRE Rep #:[id number] : 1955 69 From: Sidra Irving MD PCP: ARIA Long, CREDENTIALING ANALYST-C Statu s:ADM DENIS Discharge Instructions DC O2, [...] 3RF Referrals / Follow Up: Sarah Toth [facility], CREDENTIALING ANALYST-C [Primary Care Provider] - Within 1 Week Disposition Disposition (needs filled in before D/C Order can be placed): Home, Self Care 01/27/25 1359<Electronically signed by Sirda Irving MD>Sidra Irving MD CC: Samra Samano; Mary Zuñiga; Dwight Taylor; C CREDENTIALING ANALYST-C Sarah Toth;Maude Anderson MD; Annita Barba MD; [...] Rodriguez DO; Rand Chamberlain MD ~ Signed [facility] Work Phone: Discharge summary Author Sidra Irving [facility] Note Date/Time January 27, 2025 2: 07pm [facility] Medical Records Department [address] [place] [address] Discharge Summary 01/27/25 1359 MR#: [id number] Acct: [id number] Name: THIAGO PIERRE Rep #:[id number] : 1955 69 From: Sidra Irving MD PCP: ARIA Long, [place] Statu s:ADM DENIS Location: [place] [address] Providers Date of Admission: 01/26/25 Date of [...] confusion. She says she was at her nxqxds-bw-uld's house and took a nap and when [...] % (Auto) 47.9, Lymph % (Auto) 39.4, [place] % (Auto) 9.0, Eos % (Auto) 2.7, [...] % (Auto) 53.5, Lymph % (Auto) 34.6, [place] % (Auto) 7.1, Eos % (Auto) 3.6, [...] microvascular ischemia and volume loss. Reading Location: [facility] Head/Neck CTA 01/26/25 12:27 IMPRESSION: Minimal plaque formation at the origin of the right and left internal carotid arteries causing minimal narrowing. Reading Location: CXT-GHMBLGYJT-B Brain MRI 01/27/25 15:31 IMPRESSION: No evidence of acute ischemia. Chronic microvascular ischemic changes, mild volume loss. Reading Location: [facility] D/C Instructions Discharge Activity: Return to Normal [...] 3RF Referrals / Follow Up: Sarah Toth, CREDENTIALING ANALYST-C [Primary Care Provider] - Within 1 Week Disposition Disposition (needs filled in before D/C Order can be placed): Home, Self Care Charges/Coding Visit Charges Inpatient E&M: 23902 Disch Hosp >30min 01/27/25 1407 <Electronically signed by Sidra Irving MD> Cosigner Signature (if applicable): CC: C CREDENTIALING ANALYSTVicenteC Sarah Toth; Dr. Sidra Irving MD~ Signed [facility] Work Phone: Evaluation note* Diagnosis Onychomycosis- Primary Dermatophytosis of nail Pain in toe of left foot Pain in limb Pain in toe of right foot Pain in limb Other diabetic neurological complication associated with type 2 diabetes mellitus (HCC) Hyperkeratosis Acquired keratoderma documented in this encounter [facility] noteNo assessment information availableWLake County Memorial [facility] Work Phone: Evaluation note* Diagnosis Onset Date [...] syncope acute Atherosclerotic heart diseas e of [place] coronary artery without angina pectoris chronic Cardiac defibrillator in situ chronic Chronic systolic (congestive) heart failure chronic Dilated cardiomyopathy chron ic Essential hypertension chron ic Pure hypercholesterolemia ch ronic Cardiac defibrillator in situ chronic Chronic systolic (congestive) heart failure chronic Dilated cardiomyopathy [facility] Work Phone: Evaluation note* Diagnosis 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) documented in this encounter [facility] note* Diagnosis Onset Date Resolution Status CKD (chronic kidney disease) stage 3, GFR 30-59 ml/min chronic Diabetes mellitus, type II c hronic Essential hypertension chron ic Obesity (BMI 30-39.9) chroni c Atherosclerotic heart diseas e of [place] coronary artery without angina pectoris chronic Cardiac defibrillator in situ chronic Chronic systolic (congestive) heart failure chronic Dilated cardiomyopathy chron ic Essential hypertension chron ic Pure hypercholesterolemia ch ronic Depression chronic Diabetes mellitus, type II c hronic Obesity (BMI 30-39.9) [facility] Work Phone: Evaluation note* Diagnosis Onset Date Resolution Status Atherosclerotic heart diseas e of [place] coronary artery without angina pectoris chronic Cardiac defibrillator in situ chronic Chronic systolic (congestive) heart failure chronic Dilated cardiomyopathy chron ic Essential hypertension chron ic Pure hypercholesterolemia ch ronic Depression chronic Diabetes mellitus, type II c hronic Obesity (BMI 30-39.9) chroni c [facility] Work Phone: Evaluation note* Diagnosis 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)- Primary [facility] Author Dahiana Oakley [facility] Note Date/Time January 26, 2025 3: [address] [place] [address] System Medical Records Department [address] [place] [address] H&P Exam - Hospitalist 01/26/25 1507 MR#: [id number] Acct: [id number] Name: THIAGO PIERRE Rep #:[id number] 5 : 1955 69 From: Dahiana Oakley MD PCP: ARIA Long, CREDENTIALING ANALYST-C Statu s:ADM DENIS Location: [place] [address] HPI - General General Date of Admission: 01/26/25 Date of Service: 01/26/25 Chief Complaint: Transient episode of confusion HPI Narrative THIAGO PIERRE, is a 69-year-old female history of nonobstructive CAD, BiV ICD in 2016, diabetes, NICOLLE, hypertension, depression, GERD, heart failure with recovered EF presented to [facility] ED 01/26/2025 due to transient episode [...] her vision, 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 [facility] Medical History Essential hypertension Elevated troponin History of diabetes mellitus Hx of cardiomyopathy Dysarthria Medication reaction Intractable nausea and vomiting Dizziness Depression Near syncope Vertigo Carotid artery disease Pure hypercholesterolemia Atherosclerotic heart disease of [place] coronary artery without angina pectoris Nonrheumatic mitral [...] red dye Allergy Hives Verified 01/26/25 11:33 Drwhlrj-[id number] Reductase AdvReac Severe Myalgias Verified 01/26/25 11:33 Inhibitor (Hojorxo-Ott-Cxn Reductase Inhibitor) Family History Father , Lung [...] deficits, cranial nerves II through XII intact, erousw-cb-[id number] without significant difficulty bilaterally Skin: No rashes [...] % (Auto) 47.9, Lymph % (Auto) 39.4, [place] % (Auto) 9.0, Eos % (Auto) 2.7, [...] microvascular ischemia and volume loss. Reading Location: [facility] Head/Neck CTA 01/26/25 12:27 IMPRESSION: Minimal plaque formation at the origin of the right and left internal carotid arteries causing minimal narrowing. Reading Location: [id number] Assessment & Plan Assessment/Plan (1) Confusion: PLAN: [...] Oakley MD Charges/Coding Visit Charges Inpatient E&M: 77354 Init Hosp L2 01/26/25 1532 <Electronically signed by Dahiana Oakley MD> Cosigner Signature (if applicable): CC: [facility] CREDENTIALING ANALYST-C Sarah Toth; Dr. Dahiana Oakley MD~ Signed [facility] Work Phone: Hospital Discharge instructions Additional Instructions 1. You need to walk more 2. When you are sitting you need to elevate your toes above your nose 3. Recommend contacting Dr. Marcum's office for follow-up 4. 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) Procedures US ABD RIGHT UPPER QUADRANT US ABDOMINAL REAL TIME W/IMAGE LIMITED Honorio Quintana MD [address] [place] [id number] Us Imaging [place] [address] Referral ID Status Reason Start Date Expiration Date V isits Requested Visits Authorized [id number] Closed Auto-Generate d Referral 02/22/2023 03/23/2024 1 1 [facility] for referral (narrative)* Diagnostic Procedure Only (Routine) - Pending Review Specialty Diagnoses / Procedures Referred By Letitia leos Referred To Contact US IMAGING Diagnoses 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) Procedures US ABD RIGHT UPPER QUADRANT US ABDOMINAL REAL TIME W/IMAGE LIMITED Honorio Quintana MD [address] [place] [address] [facility] [address] Referral ID Status Reason Start Date Expiration Date Visits Requested Visits Authorized [id number] Pending Review Auto-Generat ed Referral 11/27/2023 12/26/2024 1 [facility]No reason for referral information availablePemberton TravelAI Services Work Phone: Summary Purpose Family History No Family History Records Found Relationship Condition Age at Onset Recorded Date/T alberto father Malignant neoplasm of lung Unknown mother Malignant neoplasm of breast Unknown brother Malignant neoplasm Unknown Advance Directives No Advanced Directives Records FoundDocuments on File Type Date Recorded Patient Electronic Scale Assembler And Tester Expl anation Advance Directive(s) 03/04/2018 3:54 PM Advance Directive(s) 11/09/2017 6:59 AM Advance Directive(s) 10/24/2017 12:13 PM Advance Directive Response Recorded Date/ Time Advance Directives No July 20, 2017 3:03pm Living Will No June 01 8:57am Power of Derrick Boat Runner No June 01, 2022 8:57am Advance Directive Response Recorded Date/ Time Advance Directives No July 20, 2017 4:03pm Living Will No June 01 022 9:57am Power of Derrick Boat Runner No June 01, 2022 9:57am Advance Directive Response Recorded Date/ Time Advance Directives No December 28 9:43am Living Will No December 28, 2022 9:43am Power of Derrick Boat Runner No December 28 9:43am Advance Directive Response Recorded Date/ Time Advance Directives No December 28 8:43am Living Will No December 28, 2022 8:43am Power of Derrick Boat Runner No December 28 8:43am Advance Directive Response Recorded Date/ Time Name of Medical Power of Derrick Boat Runner September 13, 2023 3:04pm Advance Directives No December 28 9:43am Living Will No September 13, 2023 3:04pm Power of Derrick Boat Runner Yes September 12 3:04pm Advance Directive Response Recorded Date/ Time Living Will No Roxanne 8th, 2 024 9:22pm Do you have a Healthcare Power of Derrick Boat Runner? No February 17, 2024 9:22pm Advance Directives No December 28 9:43am Advance Directive Response Recorded Date/ Time Do you have a Healthcare Pow er of Derrick Boat Runner? Yes November 30, 2024 12:20pm Name of Medical Power of Derrick Boat Runner keila heaton- November 30, 2024 12:20pm Advance Directives No December 28 9:43am Advance Directive Response Recorded Date/ Time Do you have a Healthcare Pow er of Derrick Boat Runner? Yes November 30, 2024 12:20pm Name of Medical Power of Derrick Boat Runner keila heaton- November 30, 2024 12:20pm Do you have a Healthcare Pow er of Derrick Boat Runner? Yes December 28, 2024 4:03pm Name of Medical Power of Derrick Boat Runner Keila Prema December 28, 2024 4:03pm Advance Directives No December 28 9:43am Advance Directive Response Recorded Date/ Time Do you have a Healthcare Pow er of Derrick Boat Runner? Yes November 30, 2024 12:20pm Name of Medical Power of Derrick Boat Runner keila heaton- November 30, 2024 12:20pm Do you have a Healthcare Pow er of Derrick Boat Runner? Yes December 28, 2024 4:03pm Name of Medical Power of Derrick Boat Runner Keila Pierre December 28, 2024 4:03pm Do you have a Healthcare Pow er of Derrick Boat Runner? No January 26, 2025 11:31am Advance Directives No December 28 9:43am Advance Directive Response Recorded Date/ Time Do you have a Healthcare Pow er of Derrick Boat Runner? Yes November 30, 2024 12:20pm Name of Medical Power of Derrick Boat Runner keila heaton- November 30, 2024 12:20pm Do you have a Healthcare Pow er of Derrick Boat Runner? Yes December 28, 2024 4:03pm Name of Medical Power of Derrick Boat Runner Keila Pierre December 28, 2024 4:03pm Do you have a Healthcare Pow er of Derrick Boat Runner? Yes January 26, 2025 4:54pm Advance Directives [...] II Near syncope Atherosclerotic heart disease of [place] coronary artery without angina pectoris Cardiac defibrillator [...] Obesity (BMI 30-39.9) Atherosclerotic heart disease of [place] coronary artery without angina pectoris Cardiac defibrillator in situ Chronic systolic (congestive) heart failure Dilated cardiomyopathy Essential hypertension Pure hypercholesterolemia Depression Diabetes mellitus, type II Obesity (BMI 30-39.9) Chief Complaint 3 M FU 3 M FU CHEST PAIN Reason for Visit Atherosclerotic hear t disease of [place] coronary artery without angina pectoris Cardiac defibrillator [...] Admit Date Atherosclerotic heart diseas e of [place] coronary artery without angina pectoris July 02, [...] Admit Date Atherosclerotic heart diseas e of [place] coronary artery without angina pectoris July 02, [...] 1:29p m Atherosclerotic heart diseas e of [place] coronary artery without angina pectoris December 25, [...] 1:29p m Atherosclerotic heart diseas e of [place] coronary artery without angina pectoris December 25, [...] 1:29p m Atherosclerotic heart diseas e of [place] coronary artery without angina pectoris December 25, [...] section and content) DATE CREATED AUTHOR 09/28/2018 [facility] DATE CREATED AUTHOR AUTHOR'S ORGANIZ ATION 02/21/2020 [facility] DATE CREATED AUTHOR AUTHOR'S ORGANIZ ATION 12/02/2023 [facility] DATE CREATED AUTHOR AUTHOR'S ORGANIZ ATION 04/12/2025 [facility] Source Comments (unrecognize d section and content) In the event this informatio n is protected by the Federal Confidentiality of Alcohol and Drug Abuse Patient Records regulations: The Federal rules restrict any use of the information to criminally investigate or prosecute any alcohol or drug abuse patient.[facility] the event this information is protected by the Federal Confidentiality of Alcohol and Drug Abuse Patient Records regulations: The Federal rules restrict any use of the information to criminally investigate or prosecute any alcohol or drug abuse patient.[facility] Hospital[facility] the event this information is protected by the Federal Confidentiality of Alcohol and Drug Abuse Patient Records regulations: The Federal rules restrict any use of the information to criminally investigate or prosecute any alcohol or drug abuse patient.[facility] Reason for Visit (unrecogniz ed section and content) Reason Comments Nail care Diabetic Foot Care blister on right great toe Reason Comments Radiology US Specialty Diagnoses / Procedures Referred By Contac t Referred To Contact US IMAGING Diagnoses 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) Procedures US ABD RIGHT UPPER QUADRANT US ABDOMINAL REAL TIME W/IMAGE LIMITED Honorio Quintana MD [address] [place] [address] [place] [id number] Referral ID Status Reason Start Date Expiration Date V isits Requested Visits Authorized [id number] Closed Auto-Generate d Referral 02/22/2023 03/23/2024 1 1 Reason Comments Malignant Melanoma (Choroid) Follow Up s /p plaque + TTT OS 11/12/2017 Care Teams (unrecognized sec tion and content) 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 Family Provider Active [facility] Primary Care Provider A ctive Team Status: Inactive Member Role Status Dates Sarah Toth CREDENTIALING ANALYST, CREDENTIALING ANALYST-C Other Provider Active [facility] Primary C are Provider, Attending Provider, Referring Provider Active Team Status: Inactive Member Role Status Dates Dr. Genie Chambers Primary Care Provider Active Dr. Antonio Herr MD Attending Provider, Emergency Pro vider Active Team Status: Inactive Member Role Status Dates [facility] Primary Care Provider A ctive HEIDI PATEL NP-C Attending Provider, Referring Provider Active Team Status: Active Member Role Status Dates [facility] Primary C are Provider, Attending Provider, Referring Provider Active Sarah Toth CREDENTIALING ANALYST, CREDENTIALING ANALYST-C Other Provider Active Team Status: Inactive Member Role Status Dates [facility] Primary C are Provider, Attending Provider, Referring Provider Active Sarah Toth CREDENTIALING ANALYST, CREDENTIALING ANALYST-C Other Provider Active Team Status: Active Member Role Status Dates [facility] Family Provider Active Sarah Toth CREDENTIALING ANALYST, CREDENTIALING ANALYST-C Primary Care Provider Active Team Status: Inactive Member Role Status Dates [facility] Primary Care Provider, Referring Provider Active Lavonne Bridges NP-C Attending Provider Active Team Status: Inactive Member Role Status Dates [facility] Primary Care Provider, Referring Provider Active Lico Noel CREDENTIALING ANALYST, CREDENTIALING ANALYST-C Attending Provider Active Team Status: Inactive Member Role Status Dates [facility] Primary Care Provider A ctive Dr. Nathanael Corrales MD Attending Provider Active Team Status: Inactive Member Role Status Dates [facility] Referring Provider Ivanashiv yunior Rachelmarilin Field Attending Provider Active Sarah Toth CREDENTIALING ANALYST, CREDENTIALING ANALYST-C Primary Care Provider Active Team Status: Inactive Member Role Status Dates [facility] Primary Care Provider A ctive Dr. 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 Primary Care Provider A ctive Dr. 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 Start Date End Date Shante Parada [address] [place] [phone] PCP - General Family Medicine 03/27/17 Ovi Olivares MD [address] [place] [phone] Referring Ophthalmology 03/22/17 Kristen Harrsion (Historical), JUNIOR PROGRAMMER [address] [place] [address] Referring Orthopedics 08/19/20 Team Status: Active Member Role Status Dates Sarah KIDDC, CREDENTIALING ANALYST-C Primary Care Provider Activ e Team Status: Inactive Member Role Status Dates Sarah KIDDC, CREDENTIALING ANALYST-C Primary Care Provider Activ e Start: July 02, 2024 End: July 02, 2024 Sarah Navneet BERNABEChele, CREDENTIALING ANALYST-C Attending Provider Active Start: July 02, 2024 End: July 02, 2024 Sarah Navneet VSC, CREDENTIALING ANALYST-C Referring Provider Active Start: July 02, 2024 End: July 02, 2024 Team Status: Inactive Member Role Status Dates Sarah KIDDC, CREDENTIALING ANALYST-C Primary Care Provider Activ e Start: July 02, 2024 End: July 02, 2024 Sarah Navneet BERNABEC, CREDENTIALING ANALYST-C Referring Provider Active Start: July 02, 2024 End: July 02, 2024 Kaye Burris PA, PA Attending Provider Active Start: July 02, 2024 End: July 02, 2024 Team Status: Inactive Member Role Status Dates Sarah KIDDC, CREDENTIALING ANALYST-C Primary Care Provider Activ e Start: July 14, 2024 End: July 14, 2024 Dr. Misbah Marcum MD Attending Provider Active S tart: July 14, 2024 End: July 14, 2024 Dr. Misbah Marcum MD Referring Provider Active S tart: July 14, 2024 End: July 14, 2024 Team Status: Inactive Member Role Status Dates Sarah Navneet BERNABEChele, CREDENTIALING ANALYST-C Primary Care Provider Activ e Start: July 16, 2024 End: July 16, 2024 Sarah KNAPP, CREDENTIALING ANALYST-C Referring Provider Active Start: July 16, 2024 End: July 16, 2024 Lavonne Bridges CREDENTIALING ANALYST-C Attending Provider Active Start: July 16, 2024 End: July 16, 2024 Team Status: Inactive Member Role Status Dates Sarah Navneet BERNABEC, CREDENTIALING ANALYST-C Primary Care Provider Activ e Start: October 13, 2024 End: October 13, 2024 Dr. Misbah Marcum MD Attending Provider Active S tart: October 13, 2024 End: October 13, 2024 Team Status: Active Member Role Status Dates Sarah Toth VSC, CREDENTIALING ANALYST-C Primary Care Provider Activ e Start: October 22, 2024 Sarah KIDDC, CREDENTIALING ANALYST-C Attending Provider Active Start: October 22, 2024 Team Status: Inactive Member Role Status Dates Sarah KIDDC, CREDENTIALING ANALYST-C Primary Care Provider Activ e Start: October 23, 2024 End: October 23, 2024 Sarah KIDDC, CREDENTIALING ANALYST-C Referring Provider Active Start: October 23, 2024 End: October 23, 2024 Lavonne Bridges CREDENTIALING ANALYST-C Attending Provider Active Start: October 23, 2024 End: October 23, 2024 Team Status: Inactive Member Role Status Dates Sarah KIDDC, CREDENTIALING ANALYST-C Primary Care Provider Activ e Start: October 22, 2024 End: October 22, 2024 Sarah KIDDC, CREDENTIALING ANALYST-C Attending Provider Active Start: October 22, 2024 End: October 22, 2024 Team Status: Inactive Member Role Status Dates Sarah KIDDC, CREDENTIALING ANALYST-C Primary Care Provider Activ e Start: October 13, 2024 End: October 13, 2024 Dr. Misbah Marcum MD Attending Provider Active S tart: October 13, 2024 End: October 13, 2024 Dr. Misbah Marcum MD Referring Provider Active S tart: October 13, 2024 End: October 13, 2024 Team Status: Inactive Member Role Status Dates Sarah KIDDC, CREDENTIALING ANALYST-C Primary Care Provider Activ e Start: November 30, 2024 End: November 30, 2024 Dr. Juventino Kern MD Emergency Provider Active Sta rt: November 30, 2024 End: November 30, 2024 Team Status: Active Member Role/Relationship Status Dates Sarah KIDDC, CREDENTIALING ANALYST-C Primary Care Provider Activ e Team Status: Inactive Member Role/Relationship Status Dates Sarah KIDDC, CREDENTIALING ANALYST-C Primary Care Provider Activ e Start: October 13, 2024 End: October 13, 2024 Dr. Misbah Marcum MD Attending Provider Active S tart: October 13, 2024 End: October 13, 2024 Dr. Misbah Marcum MD Referring Provider Active S tart: October 13, 2024 End: October 13, 2024 Team Status: Inactive Member Role/Relationship Status Dates Sarah KIDDC, CREDENTIALING ANALYST-C Primary Care Provider Activ e Start: October 22, 2024 End: October 22, 2024 Sarah KNAPP, CREDENTIALING ANALYST-C Attending Provider Active Start: October 22, 2024 End: October 22, 2024 Team Status: Inactive Member Role/Relationship Status Dates Sarah KIDDC, CREDENTIALING ANALYST-C Primary Care Provider Activ e Start: October 23, 2024 End: October 23, 2024 Sarah KIDDC, CREDENTIALING ANALYST-C Referring Provider Active Start: October 23, 2024 End: October 23, 2024 Lavonne Bridges CREDENTIALING ANALYST-C Attending Provider Active Start: October 23, 2024 End: October 23, 2024 Team Status: Inactive Member Role/Relationship Status Dates Sarah KIDDC, CREDENTIALING ANALYST-C Primary Care Provider Activ e Start: November 30, 2024 End: November 30, 2024 Dr. Juventino Kern MD Attending Provider Active Sta rt: November 30, 2024 End: November 30, 2024 Dr. Juventino Kern MD Emergency Provider Active Sta rt: November 30, 2024 End: November 30, 2024 Team Status: Inactive Member Role/Relationship Status Dates Sarah KIDDC, CREDENTIALING ANALYST-C Primary Care Provider Activ e Start: December 25, 2024 End: December 25, 2024 Sarah KIDDC, CREDENTIALING ANALYST-C Referring Provider Active Start: December 25, 2024 End: December 25, 2024 Dr. Misbah Marcum MD Attending Provider Active S tart: December 25, 2024 End: December 25, 2024 Team Status: Inactive Member Role/Relationship Status Dates Sarah KIDDC, CREDENTIALING ANALYST-C Primary Care Provider Activ e Start: December 28, 2024 End: December 28, 2024 Dr. Rhea Barber , Emergency Provider Active S tart: December 28, 2024 End: December 28, 2024 Team Status: Inactive Member Role/Relationship Status Dates Sarah Navneet BERNABEC, CREDENTIALING ANALYST-C Primary Care Provider Activ e Start: December 28, 2024 End: December 28, 2024 Dr. Rhea Barber DO Attending Provider Active S tart: December 28, 2024 End: December 28, 2024 Dr. Rhea Barber , Emergency Provider Active S tart: December 28, 2024 End: December 28, 2024 Team Status: Inactive Member Role/Relationship Status Dates Sarah Toth VSC, CREDENTIALING ANALYST-C Primary Care Provider Activ e Start: January 12, 2025 End: January 12, 2025 Dr. Misbah Marcum MD Attending Provider Active S tart: January 12, 2025 End: January 12, 2025 Team Status: Active Member Role/Relationship Status Dates Sarah Toth VSC, CREDENTIALING ANALYST-C Primary Care Provider Activ e Start: January 19, 2025 Dr. Misbah Marcum MD Attending Provider Active S tart: January 19, 2025 Dr. Misbah Marcum MD Referring Provider Active S tart: January 19, 2025 Team Status: Active Member Role/Relationship Status Dates Sarah KIDDC, CREDENTIALING ANALYST-C Primary Care Provider Activ e Start: January 19, 2025 Dr. Misbah Marcum MD Attending Provider Active S tart: January 19, 2025 Team Status: Active Member Role/Relationship Status Dates Sarah Toth VSC, CREDENTIALING ANALYST-C Primary Care Provider Activ e Start: January 20, 2025 Lico Noel CREDENTIALING ANALYST, CREDENTIALING ANALYST-C Attending Provider Active Start: January 20, 2025 Team Status: Inactive Member Role/Relationship Status Dates Sarah Toth VSC, CREDENTIALING ANALYST-C Primary Care Provider Activ e Start: January 19, 2025 End: January 19, 2025 Dr. Misbah Marcum MD Attending Provider Active S tart: January 19, 2025 End: January 19, 2025 Dr. Misbah Marcum MD Referring Provider Active S tart: January 19, 2025 End: January 19, 2025 Team Status: Active Member Role/Relationship Status Dates Sarah KIDDC, CREDENTIALING ANALYST-C Primary Care Provider Activ e Start: January [...] Member Role/Relationship Status Dates Sarah Toth VSC, CREDENTIALING ANALYST-C Primary Care Provider Activ e Start: January [...] Member Role/Relationship Status Dates Sarah Toth VSC, CREDENTIALING ANALYST-C Primary Care Provider Activ e Start: January 27, 2025 Sarah Toth VSC, CREDENTIALING ANALYST-C Referring Provider Active Start: January 27, 2025 Rachel Field Attending Provider Active Start: [facility]2024 Team Status: Active Member Role/Relationship Status Dates Sarah Toth VSC, CREDENTIALING ANALYST-C Primary Care Provider Activ e Start: January [...] Provider Active Start: January 27, 2025 Rand Chamebrlain MD Other Provider Active Start: January 27, 2025 Dr. Sidra Irving MD Attending Provider Active Start: January 27, 2025 Dr. Sidra Irving MD Other Provider Active St art: January 27, 2025 Team Status: Inactive Member Role/Relationship Status Dates Sarah Toth VSC, CREDENTIALING ANALYST-C Primary Care Provider Activ e Start: January 27, 2025 End: January 27, 2025 Sarah Toth VSC, CREDENTIALING ANALYST-C Referring Provider Active Start: January 27, 2025 End: January 27, 2025 Rachel Field Attending Provider Active Start: A ugust 2024 End: January 27, 2025 Team Status: Inactive Member Role/Relationship Status Dates Sarah Toth VSC, CREDENTIALING ANALYST-C Primary Care Provider Activ e Start: January 27, 2025 End: January 27, 2025 Dr. Misbah Marcum MD Attending Provider Active S tart: January 27, 2025 End: January 27, 2025 Team Status: Inactive Member Role/Relationship Status Dates Sarah Toth VSC, CREDENTIALING ANALYST-C Primary Care Provider Activ e Start: January 27, 2025 End: January 27, 2025 Sarah Toth VSC, CREDENTIALING ANALYST-C Referring Provider Active Start: January 27, 2025 End: January 27, 2025 Rachel Field Attending Provider Active Start: A ugust 2024 End: January 27, 2025 Team Status: Active Member Role/Relationship Status Dates Sarah Navneet [facility], CREDENTIALING ANALYST-C Primary Care Provider Activ e Start: January [...] Inactive Member Role/Relationship Status Dates Sarah KIDDC, CREDENTIALING ANALYST-C Primary Care Provider Activ e Start: October 22, 2024 End: October 22, 2024 Sarah Toth VSC, CREDENTIALING ANALYST-C Attending Provider Active Start: October 22, 2024 End: October 22, 2024 Team Status: Inactive Member Role/Relationship Status Dates Sarah Toth VSC, CREDENTIALING ANALYST-C Primary Care Provider Activ e Start: October 23, 2024 End: October 23, 2024 Sarah KIDDC, CREDENTIALING ANALYST-C Referring Provider Active Start: October 23, 2024 End: October 23, 2024 Lavonne Bridges CREDENTIALING ANALYST-C Attending Provider Active Start: October 23, 2024 End: October 23, 2024 Team Status: Inactive Member Role/Relationship Status Dates Sarah KIDDC, CREDENTIALING ANALYST-C Primary Care Provider Activ e Start: November 30, 2024 End: November 30, 2024 Dr. Juventino Kern MD Attending Provider Active Sta rt: November 30, 2024 End: November 30, 2024 Dr. Juventino Kern MD Emergency Provider Active Sta rt: November 30, 2024 End: November 30, 2024 Team Status: Inactive Member Role/Relationship Status Dates Sarah KIDDC, CREDENTIALING ANALYST-C Primary Care Provider Activ e Start: December 25, 2024 End: December 25, 2024 Sarah KIDDC, CREDENTIALING ANALYST-C Referring Provider Active Start: December 25, 2024 End: December 25, 2024 Dr. Misbah Marcum MD Attending Provider Active S tart: December 25, 2024 End: December 25, 2024 Team Status: Inactive Member Role/Relationship Status Dates Sarah KIDDC, CREDENTIALING ANALYST-C Primary Care Provider Activ e Start: December 28, 2024 End: December 28, 2024 Dr. Rhea Barber DO Attending Provider Active S tart: December 28, 2024 End: December 28, 2024 Dr. Rhea Barber DO Emergency Provider Active S tart: December 28, 2024 End: December 28, 2024 Team Status: Inactive Member Role/Relationship Status Dates Sarah KIDDC, CREDENTIALING ANALYST-C Primary Care Provider Activ e Start: January 12, 2025 End: January 12, 2025 Dr. Misbah Marcum MD Attending Provider Active S tart: January 12, 2025 End: January 12, 2025 Dr. Misbah Marcum MD Referring Provider Active S tart: January 12, 2025 End: January 12, 2025 Team Status: Inactive Member Role/Relationship Status Dates Sarah KIDDC, CREDENTIALING ANALYST-C Primary Care Provider Activ e Start: January 19, 2025 End: January 19, 2025 Dr. Misbah Marcum MD Attending Provider Active S tart: January 19, 2025 End: January 19, 2025 Dr. Misbah Marcum MD Referring Provider Active S tart: January 19, 2025 End: January 19, 2025 Team Status: Active Member Role/Relationship Status Dates Sarah Toth VSC, CREDENTIALING ANALYST-C Primary Care Provider Activ e Start: January 19, 2025 Dr. Misbah Marcum MD Attending Provider Active S tart: January 19, 2025 Team Status: Active Member Role/Relationship Status Dates Sarah Toth VSC, CREDENTIALING ANALYST-C Primary Care Provider Activ e Start: January 20, 2025 Lico Noel CREDENTIALING ANALYST, CREDENTIALING ANALYST-C Attending Provider Active Start: January 20, 2025 Team Status: Inactive Member Role/Relationship Status Dates Sarah Toth VSC, CREDENTIALING ANALYST-C Primary Care Provider Activ e Start: January [...] 26, 2025 End: January 27, 2025 Dr. hSaka Lerner MD Other Provider Active St art: [...] Inactive Member Role/Relationship Status Dates Sarah KIDDC, CREDENTIALING ANALYST-C Primary Care Provider Activ e Start: January 27, 2025 End: January 27, 2025 Dr. Misbah Marcum MD Attending Provider Active S tart: January 27, 2025 End: January 27, 2025 Team Status: Inactive Member Role/Relationship Status Dates Sarah KIDDC, CREDENTIALING ANALYST-C Primary Care Provider Activ e Start: February [...] BE BASED ON THE PRIMARY CLINICAL RECORDS. [facility]. provides no warranty or guarantee of the accuracy or completeness of information in this document.
[2025-05-29 18:50] LABS: Color, Urine Straw (Yellow); Glucose, Dipstick 1000 mg/dl (Normal); Ketone-Dipstick Negative (Negative); Leukocyte Esterase-Dipstick Negative /ul (Negative); Nitrite-Dipstick Negative (Negative); Occult Blood-Urine Negative /ul (Negative); Protein-Dipstick 15 mg/dl (Negative); Specific Gravity, Urine 1.015 (1.002-1.030); Urine Bilirubin Dipstick Negative (Negative)
[2025-05-29 19:02] LABS: Hematocrit 44.8 % (37-47); Hemoglobin 14.8 g/dL (12.0-15.0); Immature Granulocytes Count 0.110 X10^3/uL (0.0-0.0); Mean Corp Hgb Conc 33.0 g/dL (32-36); Mean Corpuscular Volume 88.5 fL (81-99); Mean Platelet Vol. 9.1 fl (6.2-12.0); NRBC Flagged by Analyzer 0 % (0-5); Platelet Count 250 K/mm3 (150-450); RBC Distribution Width CV 13.2 % (11.6-14.6); RBC Distribution Width SD 42.7 fl (35.1-43.9); Red Blood Count 5.06 M/mm3 (4.2-5.4); White Blood Count 7.3 K/mm3 (4.4-11.0)
[2025-05-29 19:12] LABS: Red Blood Cells-Urine 0-5 SEEN /hpf (0-5); Squamous Epithelial Cells - UA 0-5 SEEN /hpf (5-10)
[2025-05-29 19:41] LABS: Anion Gap 13 (5-15); BUN 19 mg/dL (4-19); BUN/Creat Ratio 16.9 RATIO (10-20); Calcium,Total 9.0 mg/dL (7.6-11.0); Carbon Dioxide 22.8 mmol/L (21.0-32.0); Chloride 101 mmol/L (98-108); Estimated Creatinine Clearance 58.66 ml/min (50-250); Glucose 181 mg/dL (70-99); Potassium 3.9 mmol/L (3.3-5.1)
[2025-05-29 20:32] VITALS: BP 152/66; PULSE 71; RESP 16; O2SAT 98
[2025-05-29 21:15] VITALS: BP 132/66; PULSE 79; RESP 14; TEMP 36.6; O2SAT 100
== END 2025-05-29 21:21 | disposition home or self-care (01) ==
PROVIDERS: Emergency Provider Emergency Medicine; PCP Nurse Practitioner Family; Visit Provider Emergency Medicine
DX: E11.649 Type 2 diabetes mellitus with hypoglycemia without coma (principal); I50.22 Chronic systolic (congestive) heart failure; I11.0 Hypertensive heart disease with heart failure; Z79.4 Long term (current) use of insulin; Z87.891 Personal history of nicotine dependence; R81 Glycosuria; I25.10 Atherosclerotic heart disease of native coronary artery without angina pectoris; E78.00 Pure hypercholesterolemia, unspecified; Z79.85 Long-term (current) use of injectable non-insulin antidiabetic drugs; E66.9 Obesity, unspecified
CPT/HCPCS: 80048; 81001; 82962; 85025; 99284; A4216